=== PATIENT | female | born 1965 | race African-American/Black ===

== ENCOUNTER 2016-04-20 14:36 | Emergency (ER) | payer OTHER ==
[2016-04-20 14:57] VITALS: BP 144/87; PULSE 80; TEMP 98; BMI 41.7
--- NOTE | 2016-04-20 16:36 | PDOC ---
[id number] WEAKNESS (REFERRED FROM DIALYSIS) Time Seen by Provider: 04/20/16 16:26 History Source: Patient, Parent(s) Exam Limitations: No Limitations - History of Present Illness Initial Comments: 04/20/16 16:31 Incurring injury to her lumbar states stumbled yesterday and fell to the right landing on her right chest wall, and back. Banged her right knee also and was told by her dialysis physician to come to emergency department for evaluation. Patient is wheelchair-bound secondary to her multiple medical problems and kidney failure. States does not feel there was anything fracture that may have contused multiple areas with the fall. There was no head injury. 04/20/16 17:44 04/20/16 17:51 Occurred: reports: just prior to arrival, yesterday Severity: reports: moderate Pain Location: reports: back, lower extremity (rigth knee ) Method of Injury: Yes: direct blow, fall Loss of Consciousness: no loss of consciousness Associated Symptoms (Fall): denies symptoms Past History - Travel Traveled outside of the country in the last 30 days: Yes Close contact w/someone who was outside of country & ill: Yes - Past Medical History Allergies/Adverse Reactions: Allergies Allergy/AdvReac Type Severity Reaction Status Date / Time amoxicillin [Amoxicillin] Allergy Severe Itching Verified 04/20/16 14:57 hydrocodone bitartrate Allergy Severe Hives,ITCHI Verified 04/20/16 14:57 [From Vicodin] NG morphine Allergy Severe Itching Verified 04/20/16 14:57 neomycin [Neomycin] Allergy Severe Swelling Verified 04/20/16 14:57 oxycodone HCl [From Percocet] Allergy Severe Itching,HIV Verified 04/20/16 14:57 ES rofecoxib [From Vioxx] Allergy Severe Hives Verified 04/20/16 14:57 Sulfa (Sulfonamide Allergy Severe sclera Verified 04/20/16 14:57 Antibiotics) reddened,ITCHING tramadol Allergy Severe Vomiting Verified 04/20/16 14:57 grapefruit [Grapefruit] AdvReac Severe CAN'T TAKE Verified 04/20/16 14:57 BECAUSE OF MEDICATIONS vancomycin AdvReac Mild red man Verified 04/20/16 14:57 syndrome Heparin Analogues AdvReac Unknown Verified 02/16/16 08:04 [Heparin Agents] flu shot Allergy Severe GETS FLU Uncoded 11/22/16 08:04 SYMPTOMS grape juice AdvReac Severe Uncoded 02/16/16 08:04 Home Medications: Ambulatory Orders Albuterol Sulfate Inhaler - [Ventolin HFA Inhaler -] 1 - 2 inh PO Q4H PRN Brimonidine Tartrate/Timolol [Combigan Eye Drops] 1 drop OU BID 01/07/13 Carvedilol [Coreg] 25 mg PO BID 01/07/13 Famotidine [Pepcid -] 20 mg PO DAILY 01/07/13 Polyethylene Glycol 3350 [Miralax 255 gm Btl -] 17 gm PO DAILY 01/07/13 Sevelamer Carbonate [Renvela -] 800 mg PO TID 01/07/13 Hydralazine HCl 50 mg PO ASDIR 05/31/13 Insulin Pump Syringe, 1.8 ml [Fifty50 [place]] 1 each MC ASDIR 07/26/13 Cetirizine HCl [Zyrtec -] 1 tab PO DAILY 06/11/14 Furosemide [Lasix -] 40 tab PO ASDIR 06/11/14 Nephplex 1 tab PO DAILY 06/12/14 Sennosides [Senna Lax] 17.2 mg PO DAILY 06/12/14 Atorvastatin Ca [Lipitor] 80 mg PO HS #30 tablet 09/18/14 Aspirin [ASA -] 325 mg PO DAILY 10/13/14 Benzonatate [Tessalon Perle -] 100 mg PO PRN PRN 10/13/14 Bisacodyl [Dulcolax] 10 mg PO PRN 10/13/14 Clonazepam [KlonoPIN] 0.5 mg PO BID 10/13/14 Ondansetron HCl [Zofran] 4 mg PO PRN PRN 04/08/15 Diphenhydramine [Benadryl -] 50 mg PO PRN PRN 06/29/15 Acetaminophen [Tylenol] 1,000 mg PO PRN PRN 08/19/15 Metoclopramide HCl [Reglan] 10 mg PO PRN PRN 08/19/15 Mometasone/Formoterol [Dulera 100 Mcg/5 Mcg Inhaler] 13 gm IH PRN PRN 08/19/15 Linaclotide [Linzess] 145 mcg PO DAILY 10/06/15 Collagenase Clostridium Hist. [Santyl] 1 applic TP DAILY #90 oint...g. 02/05/16 Vanco 1 Gram/250 ml-0.9% NaCl 1 gm IVPB UTDICT 02/12/16 Acetaminophen W/ Codeine #3 [Tylenol # 3 -] 1 combo PO Q4H PRN #14 tablet MDD 6 04/20/16 Anemia: No Asthma: No Cancer: No Cardiac Disorders: No CVA: No COPD: No CHF: No Dementia: No Diabetes: Yes Dialysis: Yes (M-W-F) GI Disorders: No Disorders: No HTN: Yes Hypercholesterolemia: Yes Liver Disease: No Psychiatric Problems: Yes (ANXIETY.) Suicide Attempt (Hx): No Seizures: No Thyroid Disease: No - Surgical History Abdominal Surgery: No Appendectomy: No Cardiac Surgery: No Cholecystectomy: No Lung Surgery: No Neurologic Surgery: No Orthopedic Surgery: No - Immunization History Td Vaccination: No TDAP Vaccination: No - Psycho/Social/Smoking Cessation Hx Anxiety: No Suicidal Ideation: No Smoking Status: No Smoking History: Never smoked Have you smoked in the past 12 months: No Number of Cigarettes Smoked Daily: 0 Hx Alcohol Use: No Drug/Substance Use Hx: No Substance Use Type: None Hx Substance Use Treatment: No Trauma Specific PMHX - Complaint Specific PMHX Arthritis: No Back Injury: No Review of Systems - Review of Systems Able to Perform ROS?: Yes Is the patient limited [place] proficient: Yes Constitutional: Yes: Symptoms Reported, See HPI, Malaise HEENTM: Yes: See HPI. No: Symptoms Reported Musculoskeletal: Yes: Symptoms Reported Integumentary: Yes: Symptoms Reported, See HPI Neurological: Yes: Symptoms reported, See HPI All Other Systems: Reviewed and Negative *Physical Exam - Vital Signs Last Vital Signs Temp Pulse Resp BP Pulse Ox 98.0 F 80 20 144/87 100 04/20/16 14:54 04/20/16 14:54 04/20/16 14:54 04/20/16 14:54 04/20/16 14:54 - Physical Exam General Appearance: Yes: Nourished, Appropriately Dressed, Apparent Distress, Mild Distress HEENT: positive: MISA, TMs Normal, Pharynx Normal Neck: positive: Supple. negative: Tender Respiratory/Chest: positive: Lungs Clear Cardiovascular: positive: Regular Rate Gastrointestinal/Abdominal: positive: Soft Musculoskeletal: positive: Normal Inspection, Other. negative: Decreased Range of Motion, Muscle Spasm, Vertebral Tenderness Extremity: positive: Normal Capillary Refill, Normal Range of Motion (, noted no discoloration noted no numbness or tingling to hands or feet. Knee is intact with no reproduced tenderness along the medial or lateral aspects, patella is mobile without crepitus or step-offs, range of motion is intact but has some mild tenderness at superior aspect of patella consistent with a contusion. But no) Integumentary: positive: Normal Color, Dry, Warm. negative: Ecchymosis, Bruising Neurologic: positive: toolroom checker II-XII NML intact, Fully Oriented, Alert, Normal Mood/ Affect, Normal Response, Motor Strength 5/5 Progress Note - Progress Note Progress Note: Multiple contusions, no evidence of any bony injury, only soft tissue contusions. Agrees no x-rays probably indicated as there is no evidence of any fractures or bony injury. Will treat with Tylenol with codeine as patient has multiple ALLERGIES but stated that would be acceptable for mild to moderate pain relief *DC/Admit/Observation/Transfer Diagnosis at time of Disposition: Low back strain Qualifiers: Encounter type: initial encounter Qualified Code(s): S39.012A - Strain of muscle, fascia and tendon of lower back, initial encounter Contusion of knee Qualifiers: Encounter type: initial encounter Laterality: right Qualified Code(s): S80.01XA - Contusion of right knee, initial encounter Fall Qualifiers: Encounter type: initial encounter Qualified Code(s): W19.XXXA - Unspecified fall, initial encounter - Discharge Dispostion Disposition: HOME Condition at time of disposition: Stable Admit: No - Prescriptions Prescriptions: Acetaminophen W/ Codeine #3 [Tylenol # 3 -] 1 combo PO Q4H PRN #14 tablet MDD 6 PRN Reason: Pain - Referrals Referrals: Sebastián Parr MD [Primary Care Provider] - - Patient Instructions Printed Discharge Instructions: DI for Contusion Additional Instructions: Rest, ice to area on and off for 15 minutes 4-6 times a day Avoid heavy lifting or exercise until pain and swelling is resolved or until further directed Keep area highly elevated to reduce swelling Followup with orthopedist in one to 2 days if not improving, if significantly improved may wait one week for followup with orthopedist May use Tylenol 325 mg tablets , 2 tablets as needed for mild pain In all #3, 1-2 tablets every 6 hours as needed for more severe pain
== END 2016-04-20 16:50 | disposition home or self-care (01) ==
LOC: JERFT 14:36
DX: S80.01XA Contusion of right knee, initial encounter (principal); S39.012A Strain of muscle, fascia and tendon of lower back, initial encounter; W18.30XA Fall on same level, unspecified, initial encounter; Y93.89 Activity, other specified; Y92.9 Unspecified place or not applicable; Z99.89 Dependence on other enabling machines and devices; E11.9 Type 2 diabetes mellitus without complications; Z99.2 Dependence on renal dialysis; F41.9 Anxiety disorder, unspecified; I10 Essential (primary) hypertension; N28.9 Disorder of kidney and ureter, unspecified; Z79.4 Long term (current) use of insulin
CPT/HCPCS: 99281-25

== ENCOUNTER 2016-04-28 07:18 | Day surgery (SDC) | payer OTHER ==
[2016-04-27 12:10] VITALS: BMI 42.3
[2016-04-28] MEDS ORDERED: LIDOCAINE HCL 1%, 10 MG/ML (20ML VIAL) ONE (08:33)
[2016-04-28] MEDS ORDERED: HEPARIN NA (PORCINE) 5,000 UNITS/ML 1ML VIAL ONE (08:33)
[2016-04-28] MEDS ORDERED: MIDAZOLAM HCL 2 MG/2 ML SINGLE DOSE VIAL ONE ×3 (09:27→09:49)
[2016-04-28] MEDS ORDERED: LIDOCAINE HCL 1%, 10 MG/ML (20ML VIAL) IJ ONE (09:42)
[2016-04-28] MEDS ORDERED: ceFAZolin SODIUM 1 GM VIAL IVPB ONE (09:43)
[2016-04-28] MEDS ORDERED: ceFAZolin SODIUM 1 GM VIAL ONE (09:43)
--- NOTE | 2016-04-28 10:16 | OP ---
Operative Note - Note: Operative Date: 04/28/16 Pre-Operative Diagnosis: Stenosis right avg Operation: venogram, venoplasty right avg Findings: 80% stenosis right axillary vein. 70% stenosis in stent Post-Operative Diagnosis: Same as Pre-op Surgeon: Nathan Ch Anesthesia: Fractional Estimated Blood Loss (mls): 5 Operative Report Dictated: Yes
--- NOTE | 2016-04-28 10:18 | HP ---
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 No: Seizure Cardiovascular: Yes: HTN, Hyperlipdemia, Other (Peripheral vascular disease) Pulmonary: Yes: Asthma, Sleep Apnea Gastrointestinal: Yes: Constipation Renal/: Yes: Renal Failure, Hemodialysis ...LMP: 10/28/15 Heme/Onc: Yes: Anemia Infectious Disease: Yes: Other Rheumatology: Yes: Other (See HPI) Endocrine: Yes: Diabetes Mellitus - Past Surgical History Past Surgical History: Yes: Amputation, AV Fistula/Graft, - Smoking History Smoking history: Never smoked Have you smoked in the past 12 months: No Aproximately how many cigarettes per day: 0 - Alcohol/Substance Use Hx Alcohol Use: No - Social History ADL: Independent History of Recent Travel: No Home Medications - Allergies Allergies/Adverse Reactions: Allergies Allergy/AdvReac Type Severity Reaction Status Date / Time amoxicillin [Amoxicillin] Allergy Severe Itching Verified 04/20/16 14:57 hydrocodone bitartrate Allergy Severe Hives,ITCHI Verified 04/20/16 14:57 [From Vicodin] NG morphine Allergy Severe Itching Verified 04/20/16 14:57 neomycin [Neomycin] Allergy Severe Swelling Verified 04/20/16 14:57 oxycodone HCl [From Percocet] Allergy Severe Itching,HIV Verified 04/20/16 14:57 ES rofecoxib [From Vioxx] Allergy Severe Hives Verified 04/20/16 14:57 Sulfa (Sulfonamide Allergy Severe sclera Verified 04/20/16 14:57 Antibiotics) reddened,ITCHING tramadol Allergy Severe Vomiting Verified 04/20/16 14:57 grapefruit [Grapefruit] AdvReac Severe CAN'T TAKE Verified 04/20/16 14:57 BECAUSE OF MEDICATIONS vancomycin AdvReac Mild red man Verified 04/20/16 14:57 syndrome Heparin Analogues AdvReac Unknown Verified 02/16/16 08:04 [Heparin Agents] flu shot Allergy Severe GETS FLU Uncoded 02/16/16 08:04 SYMPTOMS grape juice AdvReac Severe Uncoded 02/16/16 08:04 - Home Medications Home Medications: Ambulatory Orders Albuterol Sulfate Inhaler - [Ventolin HFA Inhaler -] 1 - 2 inh PO Q4H PRN Brimonidine Tartrate/Timolol [Combigan Eye Drops] 1 drop OU BID 01/07/13 Carvedilol [Coreg] 25 mg PO BID 01/07/13 Famotidine [Pepcid -] 20 mg PO DAILY 01/07/13 Polyethylene Glycol 3350 [Miralax 255 gm Btl -] 17 gm PO DAILY 01/07/13 Sevelamer Carbonate [Renvela -] 800 mg PO TID 01/07/13 Hydralazine HCl 50 mg PO ASDIR 05/31/13 Insulin Pump Syringe, 1.8 ml [Fifty50 [place]] 1 each MC ASDIR 07/26/13 Cetirizine HCl [Zyrtec -] 1 tab PO DAILY 06/11/14 Furosemide [Lasix -] 40 tab PO ASDIR 06/11/14 Nephplex 1 tab PO DAILY 06/12/14 Sennosides [Senna Lax] 17.2 mg PO DAILY 06/12/14 Atorvastatin Ca [Lipitor] 80 mg PO HS #30 tablet 09/18/14 Aspirin [ASA -] 325 mg PO DAILY 10/13/14 Benzonatate [Tessalon Perle -] 100 mg PO PRN PRN 10/13/14 Bisacodyl [Dulcolax] 10 mg PO PRN 10/13/14 Clonazepam [KlonoPIN] 0.5 mg PO BID 10/13/14 Ondansetron HCl [Zofran] 4 mg PO PRN PRN 04/08/15 Diphenhydramine [Benadryl -] 50 mg PO PRN PRN 06/29/15 Acetaminophen [Tylenol] 1,000 mg PO PRN PRN 08/19/15 Metoclopramide HCl [Reglan] 10 mg PO PRN PRN 08/19/15 Mometasone/Formoterol [Dulera 100 Mcg/5 Mcg Inhaler] 13 gm IH PRN PRN 08/19/15 Linaclotide [Linzess] 145 mcg PO DAILY 10/06/15 Collagenase Clostridium Hist. [Santyl] 1 applic TP DAILY #90 oint...g. 02/05/16 Acetaminophen W/ Codeine #3 [Tylenol # 3 -] 1 combo PO Q4H PRN #14 tablet MDD 6 04/20/16 Doxycycline Hyclate 100 mg PO BID 04/28/16 Physical Examination Vital Signs: Vital Signs Temperature 97.6 F 04/28/16 08:34 Pulse Rate 74 04/28/16 08:34 Respiratory Rate 16 04/28/16 08:34 Blood Pressure 136/76 04/28/16 08:34 O2 Sat by Pulse Oximetry (%) 96 04/28/16 08:38 Constitutional: Yes: Well Nourished Eyes: Yes: WNL HENT: Yes: WNL Neck: Yes: WNL Cardiovascular: Yes: WNL Respiratory: Yes: WNL Gastrointestinal: Yes: WNL Labs: CBC, BMP 04/28/16 07:28 Assessment/Plan stenosis right avg 1. for venogram today
--- NOTE | 2016-04-28 11:14 | OP ---
DATE OF OPERATION: 04/28/2016 PREOPERATIVE DIAGNOSIS: Stenosis right atrioventricular graft. POSTOPERATIVE DIAGNOSIS: Stenosis right atrioventricular graft. PROCEDURE: Venogram, venoplasty right atrioventricular graft. SURGEON: Nathan De Los Santos DO ANESTHESIA: Fractional. ESTIMATED BLOOD LOSS: 5 mL. HISTORY: The patient is a 50-year-old female who comes to us with elevated venous pressures and arterial pressures on the dialysis machine. She had a preoperative ultrasound performed showing that she has stenosis in the outflow AV graft. The patient came into ambulatory surgery. The patient was consented for the procedure understanding all risks, benefits, and alternatives and then taken to the operating room. DESCRIPTION OF PROCEDURE: Once in the operating suite, was laid on the operating room table in supine manner. The right arm was prepped and draped in a sterile surgical manner. We then went ahead and injected 10 mL of Xylocaine 0.5% over the proximal right AV graft. We then used our micropuncture needle and punctured the right AV graft. Micropuncture wire was inserted. Micropuncture sheath was inserted, and a 0.035 floppy guidewire was inserted. We then placed a short 7-Trinidadian sheath. At this point, we then shot our venogram by a hand injection showing that the outflow axillary vein had a 70%-80% stenosis and the outflow stent had about a 70% stenosis. We placed a 0.035 guidewire through the stenosis. We then used a 9 x 8 Conquest balloon and performed venoplasty of the axillary vein and the stent. Completion venogram showed that the stenosis was now patent and had resolved. There was good flow. There was a good thrill in the AV graft. At this point, we took out our wire. I used a 4-0 Biosyn stitch and placed a [id number] stitch around the sheath. The sheath was then taken out, and the 4-0 Biosyn was tightened down. There was a good thrill in the AV graft. There was no bleeding. The area was wet and dried, and Dermabond was placed. The patient tolerated the procedure well. No complications. The patient was transferred to the PACU in stable condition. NATHAN DE LOS SANTOS DO NP/[id number]
[2016-04-28 12:09] VITALS: BP 130/74; PULSE 82; TEMP 98
== END 2016-04-28 11:20 | disposition home or self-care (01) ==
LOC: JASU-SURG 07:18
PROVIDERS: ATTEND Surgery Vascular Surgery
PROC: 057Y3ZZ Dilation of Upper Vein, Percutaneous Approach (ICD-10-PCS; principal; 2016-04-28 09:00)
DX: T82.858A Stenosis of other vascular prosthetic devices, implants and grafts, initial encounter (principal); I12.0 Hypertensive chronic kidney disease with stage 5 chronic kidney disease or end stage renal disease; N18.5 Chronic kidney disease, stage 5; Z99.2 Dependence on renal dialysis
CPT/HCPCS: 36415; 76000-TC; 84132; 84703; J1644

== ENCOUNTER 2016-08-03 15:19 | Inpatient (IN) | payer OTHER ==
--- NOTE | 2016-08-03 15:53 | PDOC ---
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 M/W/F; received full treatment today without complications) and anxiety who presents to the emergency department for further evaluation of left hand numbness. No trauma. Vitals on arrival are notable for a blood pressure of 144/83, heart rate of 82 bpm, respiratory rate of 20 and oxygen saturation of 99% on room air. She states that approximately 5 days ago, she felt that her last three digits of her left hand were numb. Approximately 2 days ago, she felt that the first two digits of her left hand were numb. She was also noted to have slight facial droop and slurred speech, by her health aide, 2 days ago, but did not report to the ED, as they contributed her symptoms to hypotension. Today, she felt her entire left hand was numb. She states that her symptoms today, are similar to when she had a mini stroke in the past (08/25/2014), to when she was cooking in the kitchen and spilled tomato sauce over her left hand and did not feel it. She reports a similar episode today, as she was holding a juice container and it spilled a bit. Patient is right-handed dominant. 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 She also reports a pounding left temporal headache. No other complaints. No chest pain, lightheadedness, dizziness, palpitations. No abdominal pain, nausea, vomiting, diarrhea. No urinary complaints No cough, shortness of breath. Allergies: Amoxicillin. Hydrocodone. Morphine. Neomycin. Past Surgical History: Right arm AV graft placement. Left eye retinal detachment with total blindness of the left eye, Social History: Never smoked. No EtOH and recreational drug use. Primary Care Physician/ Pattern Chain Builder: Dr. Sebastián Parr [phone] <Cassia Walsh - Last Filed: 08/03/16 17:00> - General History Source: Patient, Old Records Exam Limitations: No Limitations <Jahaira Saravia - Last Filed: 08/03/16 17:07> - General Chief Complaint: CVA/TIA Stated Complaint: LT HAND NUMBNESS, SLURRED SPEECH Time Seen by Provider: 08/03/16 15:37 Past History <Cassia Walsh - Last Filed: 08/03/16 17:00> - Past Medical History Anemia: No Asthma: Yes Cancer: No Cardiac Disorders: No CVA: Yes COPD: No CHF: No Dementia: No Diabetes: Yes Dialysis: Yes (M, W, F) GI Disorders: No Disorders: No HTN: Yes Hypercholesterolemia: Yes Liver Disease: No Psychiatric Problems: Yes (ANXIETY.) Suicide Attempt (Hx): No Seizures: No Thyroid Disease: No Other medical history: cranial Atherosclerosis - Surgical History Abdominal Surgery: No Appendectomy: No Cardiac Surgery: (AV graft) Cholecystectomy: No Lung Surgery: No Neurologic Surgery: No Orthopedic Surgery: No - Immunization History Td Vaccination: No TDAP Vaccination: No Immunization Up to Date: Yes - Psycho/Social/Smoking Cessation Hx Anxiety: No Suicidal Ideation: No Smoking Status: No Smoking History: Never smoked Have you smoked in the past 12 months: No Number of Cigarettes Smoked Daily: 0 Hx Alcohol Use: No Drug/Substance Use Hx: No Substance Use Type: None Hx Substance Use Treatment: No <Sarmad Saraviafany - Last Filed: 08/03/16 17:07> - Past Medical History Allergies/Adverse Reactions: Allergies Allergy/AdvReac Type Severity Reaction Status Date / Time amoxicillin [Amoxicillin] Allergy Severe Itching Verified 08/03/16 15:23 hydrocodone bitartrate Allergy Severe Hives,ITCHI Verified 08/03/16 15:23 [From Vicodin] NG morphine Allergy Severe Itching Verified 08/03/16 15:23 neomycin [Neomycin] Allergy Severe Swelling Verified 08/03/16 15:23 oxycodone HCl [From Percocet] Allergy Severe Itching,HIV Verified 08/03/16 15:23 ES rofecoxib [From Vioxx] Allergy Severe Hives Verified 08/03/16 15:23 Sulfa (Sulfonamide Allergy Severe sclera Verified 08/03/16 15:23 Antibiotics) reddened,ITCHING tramadol Allergy Severe Vomiting Verified 05/10/17 15:23 grapefruit [Grapefruit] AdvReac Severe CAN'T TAKE Verified 08/03/16 15:23 BECAUSE OF MEDICATIONS vancomycin AdvReac Mild red man Verified 08/03/16 15:23 syndrome Heparin Analogues AdvReac Unknown Verified 08/03/16 15:23 [Heparin Agents] flu shot Allergy Severe GETS FLU Uncoded 08/03/16 15:23 SYMPTOMS grape juice AdvReac Severe Uncoded 08/03/16 15:23 Home Medications: Ambulatory Orders Albuterol Sulfate Inhaler - [Ventolin HFA Inhaler -] 1 - 2 inh PO Q4H PRN Brimonidine Tartrate/Timolol [Combigan Eye Drops] 1 drop OU BID 01/07/13 Carvedilol [Coreg] 12.5 mg PO BID 01/07/13 Famotidine [Pepcid -] 20 mg PO DAILY 01/07/13 Polyethylene Glycol 3350 [Miralax 255 gm Btl -] 17 gm PO DAILY 01/07/13 Sevelamer Carbonate [Renvela -] 800 mg PO TID 01/07/13 Hydralazine HCl 50 mg PO ASDIR 05/31/13 Insulin Pump Syringe, 1.8 ml [Fifty50 [place]] 1 each MC ASDIR 07/26/13 Cetirizine HCl [Zyrtec -] 1 tab PO DAILY 06/11/14 Furosemide [Lasix -] 40 tab PO ASDIR 06/11/14 Nephplex 1 tab PO DAILY 06/12/14 Sennosides [Senna Lax] 17.2 mg PO DAILY 06/12/14 Atorvastatin Ca [Lipitor] 80 mg PO HS #30 tablet 09/18/14 Aspirin [ASA -] 325 mg PO DAILY 10/13/14 Benzonatate [Tessalon Perle -] 100 mg PO PRN PRN 10/13/14 Bisacodyl [Dulcolax] 10 mg PO PRN 10/13/14 Clonazepam [KlonoPIN] 0.5 mg PO BID 10/13/14 Ondansetron HCl [Zofran] 4 mg PO PRN PRN 04/08/15 Diphenhydramine [Benadryl -] 50 mg PO PRN PRN 06/29/15 Acetaminophen [Tylenol] 1,000 mg PO PRN PRN 08/19/15 Metoclopramide HCl [Reglan] 10 mg PO PRN PRN 08/19/15 Mometasone/Formoterol [Dulera 100 Mcg/5 Mcg Inhaler] 13 gm IH PRN PRN 08/19/15 Linaclotide [Linzess] 145 mcg PO DAILY 10/06/15 Acetaminophen W/ Codeine #3 [Tylenol # 3 -] 1 combo PO Q4H PRN #14 tablet MDD 6 04/20/16 Medroxyprogesterone Acetate [Depo-Provera -] IM ASDIR 07/25/16 Review of Systems - Review of Systems Able to Perform ROS?: Yes Comments:: 08/03/16 15:58 CONSTITUTIONAL: Absent: fever, chills, diaphoresis, generalized weakness, malaise, loss of appetite HEENT: Absent: rhinorrhea, nasal congestion, throat pain, throat swelling, difficulty swallowing, mouth swelling, ear pain, eye pain, visual Changes CARDIOVASCULAR: Absent: chest pain, syncope, palpitations, irregular heart rate , lightheadedness, peripheral edema RESPIRATORY: Absent: cough, shortness of breath, dyspnea with exertion, orthopnea, wheezing, stridor, hemoptysis GASTROINTESTINAL:Absent: abdominal pain, abdominal distension, nausea, vomiting , diarrhea, constipation, melena, hematochezia GENITOURINARY: Absent: dysuria, frequency, urgency, hesitancy, hematuria, flank pain, genital pain MUSCULOSKELETAL: Absent: myalgia, arthralgia, joint swelling SKIN: Absent: rash, itching, pallor HEMATOLOGIC/IMMUNOLOGIC: Absent: easy bleeding, easy bruising, lymphadenopathy, frequent infections ENDOCRINE:Absent: unexplained weight gain, unexplained weight loss, heat intolerance, cold intolerance NEUROLOGIC: Present: Left hand parethesias. Headache. Absent: dizziness, unsteady gait, seizure, mental status changes, bladder or bowel incontinence PSYCHIATRIC: Absent: anxiety, depression, suicidal or homicidal ideation, hallucinations <Cassia Walsh - Last Filed: 08/03/16 17:00> *Physical Exam - Vital Signs Last Vital Signs Temp Pulse Resp BP Pulse Ox 98.1 F 82 20 144/83 99 08/03/16 15:24 08/03/16 15:24 08/03/16 15:24 08/03/16 15:24 08/03/16 15:24 - Physical Exam Comments: 08/03/16 15:58 GENERAL: Well developed, well nourished. Awake and alert. No acute distress. HEENT: Normocephalic, atraumatic. PERRLA, EOMI. No conjunctival pallor. Sclera are non-icteric. Moist mucous membranes. Oropharynx is clear. NECK: Supple. Full ROM. No JVD. CARDIOVASCULAR: Regular rate and rhythm. No murmurs, rubs, or gallops. PULMONARY: No evidence of respiratory distress. Lungs clear to auscultation bilaterally. No wheezing, rales or rhonchi. ABDOMINAL: Soft. Non-tender. Non-distended. No rebound or guarding. No organomegaly. Normoactive bowel sounds. MUSCULOSKELETAL: Normal range of motion at all joints. No bony deformities or tenderness. No CVA tenderness. EXTREMITIES: No cyanosis. No clubbing. No edema. No calf tenderness. SKIN: Warm and dry. Normal capillary refill. No rashes. No jaundice. NEUROLOGICAL: Alert, awake, appropriate. Cranial nerves 2-12 intact. Decreased sensations over the left hand with a 4+/5 physical biochemist strength compared to a 5/5 physical biochemist strength over the right hand. Normoreflexic in the upper and lower extremities. Normal speech. PSYCHIATRIC: Cooperative. Good eye contact. Appropriate mood and affect. <Cassia Walsh - Last Filed: 08/03/16 17:00> - Vital Signs Last Vital Signs Temp Pulse Resp BP Pulse Ox 98.1 F 82 20 144/83 99 08/03/16 15:24 08/03/16 15:24 08/03/16 15:24 08/03/16 15:24 08/03/16 15:24 <Jahaira Saravia - Last Filed: 08/03/16 17:07> ED Treatment Course - LABORATORY CBC & Chemistry Diagram: 08/03/16 16:24 08/03/16 16:24 <Cassia Walsh - Last Filed: 08/03/16 17:00> - LABORATORY CBC & Chemistry Diagram: 08/03/16 16:24 08/03/16 16:24 <Jahaira Saravia - Last Filed: 08/03/16 17:07> Medical Decision Making - Medical Decision Making 08/03/16 16:45 50 y/o female with h/o HTN, DM, TIA, ESRD on HD Presents the emergency Department with complaints of 5 day history of numbness in her left hand digits 3 through 5 with numbness of the first and second digits of started 2 days ago. Differential diagnosis includes but is not limited to: TIA, electrolyte abnormality, toxic/metabolic derangement, diabetic neuropathy, nerve impingement. No stroke notification as she is clearly outside of the tPA window. Plan: 1. CT head 2. Labs 3. EKG 4. Chest x-ray 5. Admit to observation for serial neuro exams an MRI 6. Neurology consult 7. Observe and reevaluate <Jahaira Saravia - Last Filed: 08/03/16 17:07> *DC/Admit/Observation/Transfer - Attestations Scribe Attestion: 08/03/16 15:59 Documentation prepared by Cassia Walsh, acting as medical records coordinator for Jahaira Saravia MD. <Cassia Walsh - Last Filed: 08/03/16 17:00> - Attestations Physician Attestion: 08/03/16 15:52 I, Dr. Jahaira Saravia, attest that the scribes documentation that appears above has been prepared under my direction and personally reviewed by me in its entirety. I confirmed that the note above accurately reflects all work, treatment, procedures, and medical decision-making performed by me. <Jahaira Saravia - Last Filed: 08/03/16 17:07> Diagnosis at time of Disposition: Paresthesias in left hand, ESRD (end stage renal disease), Hypertension, Diabetes - Referrals Referrals: Sebastián Parr MD [Primary Care Provider] -
[2016-08-03 16:35] LABS: BASOPHIL 0.4 % (0-2.0); EOSINOPHIL 3.9 % (0-4.5); MCH 33.8 pg (25.7-33.7); MEAN CELL VOLUME 102.4 fl (80-96); MEAN PLT VOLUME 9.6 fl (7.5-11.1); NEUTROPHILS 66.3 % (42.8-82.8); PLATELET COUNT 204 K/MM3 (134-434); RDW 13.9 % (11.6-15.6)
[2016-08-03 16:56] LABS: ALBUMIN 3.6 g/dl (3.4-5.0); ANION GAP 13 (8-16); BILIRUBIN,TOTAL 0.5 mg/dL (0.2-1.0); CALCIUM 8.8 mg/dL (8.5-10.1); CO2 24 mmol/L (21-32); COCKROFT - GAULT 22.95; CREATININE 5.5 mg/dL (0.55-1.02); GLUCOSE,RANDOM 121 mg/dL (74-106); SGPT/ALT 26 U/L (12-78); TOT PROT 7.3 g/dl (6.4-8.2)
[2016-08-03 16:59] LABS: ALK PHOS 97 U/L (45-117); TROPONIN I < 0.02 ng/ml (0.00-0.05)
[2016-08-03 17:00] LABS: SGOT/AST 19 U/L (15-37)
[2016-08-03] MEDS ORDERED: LORAZEPAM CARPU-JECT 2 MG/ML DISP.SYRIN IVPUSH ONE (19:16)
--- NOTE | 2016-08-03 19:22 | PDOC ---
*Physical Exam - Vital Signs Last Vital Signs Temp Pulse Resp BP Pulse Ox 98.1 F 82 20 144/83 99 08/03/16 15:24 08/03/16 15:24 08/03/16 15:24 08/03/16 15:24 08/03/16 15:24 ED Treatment Course - LABORATORY CBC & Chemistry Diagram: 08/03/16 16:24 08/03/16 16:24 - ADDITIONAL ORDERS Additional order review: Laboratory Results 08/03/16 16:24 Sodium 140 Potassium 3.8 Chloride 103 Carbon Dioxide 24 Anion Gap 13 BUN 23 H D Creatinine 5.5 H D Creat Clearance w eGFR 8.24 Random Glucose 121 H D Calcium 8.8 Total Bilirubin 0.5 D AST 19 D ALT 26 Alkaline Phosphatase 97 D Creatine Kinase 209 H D CK-MB (CK-2) 2.200 Troponin I < 0.02 Total Protein 7.3 Albumin 3.6 08/03/16 16:24 RBC 3.16 L MCV 102.4 H MCHC 33.0 RDW 13.9 MPV 9.6 Neutrophils % 66.3 Lymphocytes % 22.7 Monocytes % 6.7 Eosinophils % 3.9 Basophils % 0.4 - RADIOLOGY Radiology Studies Ordered: Category Date Time Status BRAIN MRI W/O CONTRAST [MRI] Stat MRI 08/03/16 19:15 Ordered Medical Decision Making - Medical Decision Making 08/03/16 19:30 Sign-out received from outgoing Emergency Physician Dr. Saravia Pt interviewed and examined Ancillary studies reviewed Case discussed in detail with oncoming Emergency Physician including history, physical exam and ancillary studies. CBC, BMP 08/03/16 16:24 08/03/16 16:24 CMP Sodium 140 mmol/L (136-145) 08/03/16 16:24 Potassium 3.8 mmol/L (3.5-5.1) 08/03/16 16:24 Chloride 103 mmol/L (98-107) 08/03/16 16:24 Carbon Dioxide 24 mmol/L (21-32) 08/03/16 16:24 Anion Gap 13 (8-16) 08/03/16 16:24 BUN 23 mg/dL (7-18) H D 08/03/16 16:24 Creatinine 5.5 mg/dL (0.55-1.02) H D 08/03/16 16:24 Creat Clearance w eGFR 8.24 (>60) 08/03/16 16:24 Random Glucose 121 mg/dL (74-106) H D 08/03/16 16:24 Calcium 8.8 mg/dL (8.5-10.1) 08/03/16 16:24 Total Bilirubin 0.5 mg/dL (0.2-1.0) D 08/03/16 16:24 AST 19 U/L (15-37) D 08/03/16 16:24 ALT 26 U/L (12-78) 08/03/16 16:24 Alkaline Phosphatase 97 U/L (45-117) D 08/03/16 16:24 Creatine Kinase 209 IU/L (26-192) H D 08/03/16 16:24 CK-MB (CK-2) 2.200 ng/ml (0.5-3.6) 08/03/16 16:24 Troponin I < 0.02 ng/ml (0.00-0.05) 08/03/16 16:24 Total Protein 7.3 g/dl (6.4-8.2) 08/03/16 16:24 Albumin 3.6 g/dl (3.4-5.0) 08/03/16 16:[address] reviewed. Moderate periventricular white matter changes likely on the basis of chornic microvascular ischemic changes c/ suggestion of focal encephalomalacia in the right parietal lobe. No gross acute intracranial pathology. Chest xray reviewed. No acute findings. Case discussed with [facility] hospitalist for r/o CVA. Tele obs Case discussed in detail with admitting physician including history, physical exam and ancillary studies. Admitting physician has assumed care for the patient, will follow all pending diagnostics and will complete the evaluation and treatment. *DC/Admit/Observation/Transfer Diagnosis at time of Disposition: Paresthesias in left hand, ESRD (end stage renal disease), Hypertension, Diabetes - Discharge Dispostion Condition at time of disposition: Stable Admit: Yes - Referrals Referrals: Sebastián Parr MD [Primary Care Provider] - - Patient Instructions - Post Discharge Activity
[2016-08-03] MEDS ORDERED: LORAZEPAM CARPU-JECT 2 MG/ML DISP.SYRIN ONE (21:00)
--- NOTE | 2016-08-03 21:13 | PN ---
<AlinaEda - Last Filed: 08/03/16 21:13> Teaching Attending Note Name of Resident: Rj Margotmarlon <Sarah Montoya - Last Filed: 08/04/16 04:30> Teaching Attending Note ATTENDING PHYSICIAN STATEMENT I saw and evaluated the patient. I reviewed the resident's note and discussed the case with the resident. I agree with the resident's findings and plan as documented. SUBJECTIVE: 50 yo F presents with home health aide for further evaluation of left hand numbness. Patient denies trauma to the hand. Patient states that 5 days ago, she felt numbness in her third, fourth and fifth digit and then 2 days ago she felt numbness in her first and second digit. Patient also notes that 2 days ago her home health aide noted slight facial droop and slurred speech, but attributed the symptoms to hypotension and therefore never reported to the ED. Patient states her aide is at home with her 7 hours a day M- and 4 hours a day on the weekends. 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 M/W/F) ; received full treatment today without complications) and anxiety OBJECTIVE: Last Vital Signs Temp Pulse Resp BP Pulse Ox 99.6 F 83 16 162/84 100 08/04/16 01:20 08/04/16 01:20 08/04/16 01:20 08/04/16 01:20 08/04/16 01:20 GENERAL: Awake, alert, and fully oriented, in no acute distress HEENT: Atraumatic. Diminished vision with bilateral proptosis. Injected conjunctiva. Moist mucosa. No JVD LUNGS: No distress, speaks full sentences, clear to auscultation bilaterally HEART: Regular rate and rhythm, normal S1 and S2, no murmurs, rubs or gallops, peripheral pulses normal and equal bilaterally. ABDOMEN: Obese. Soft, nontender, normoactive bowel sounds. No guarding, no rebound. No masses EXTREMITIES: Normal inspection, Normal range of motion, no edema. No clubbing or Cyanosis. Right arm AV fistula. No palpable thrill appreciated. left foot with 4th and 5 toes amputated. NEUROLOGICAL: +4 in strength in L arm, +5 strength in R arm .Cranial nerves III through XII grossly intact. Normal speech, no focal sensorimotor deficits SKIN: Warm, Dry, normal turgor, no rashes or lesions noted CBCD WBC 8.0 K/mm3 (4.0-10.0) 08/03/16 16:24 RBC 3.16 M/mm3 (3.60-5.2) L 08/03/16 16:24 Hgb 10.7 GM/dL (10.7-15.3) D 08/03/16 16:24 Hct 32.3 % (32.4-45.2) L D 08/03/16 16:24 MCV 102.4 fl (80-96) H 08/03/16 16:24 MCHC 33.0 g/dl (32.0-36.0) 08/03/16 16:24 RDW 13.9 % (11.6-15.6) 08/03/16 16:24 Plt Count 204 K/MM3 (134-434) D 08/03/16 16:24 MPV 9.6 fl (7.5-11.1) 08/03/16 16:24 CMP Sodium 140 mmol/L (136-145) 08/03/16 16:24 Potassium 3.8 mmol/L (3.5-5.1) 08/03/16 16:24 Chloride 103 mmol/L (98-107) 08/03/16 16:24 Carbon Dioxide 24 mmol/L (21-32) 08/03/16 16:24 Anion Gap 13 (8-16) 08/03/16 16:24 BUN 23 mg/dL (7-18) H D 08/03/16 16:24 Creatinine 5.5 mg/dL (0.55-1.02) H D 08/03/16 16:24 Creat Clearance w eGFR 8.24 (>60) 08/03/16 16:24 Calcium 8.8 mg/dL (8.5-10.1) 08/03/16 16:24 Total Bilirubin 0.5 mg/dL (0.2-1.0) D 08/03/16 16:24 AST 19 U/L (15-37) D 08/03/16 16:24 ALT 26 U/L (12-78) 08/03/16 16:24 Alkaline Phosphatase 97 U/L (45-117) D 08/03/16 16:24 Total Protein 7.3 g/dl (6.4-8.2) 08/03/16 16:24 Albumin 3.6 g/dl (3.4-5.0) 08/03/16 16:24 ASSESSMENT AND PLAN: 1.) CKD -ESRD on dialysis -Nephrology consult for dialysis -As per patient, she is unable to get dialysis at this facility as she needs a special gauge. 2.) Acute CVA -Stroke protocol -Lipid panel -Consult Dr. Nathan Ch -Atorvastatin -Rapid Speech and swallow pass but will need speech and swallow therapy -Physical therapy -Consider palliative care consult 3.) Permissive HTN -Hold anti HTN medications -Continue lipitor and aspirin 4.) Macrocytic anemia -Check thiamine and folate level -Start on thiamine and folate 5.) IDDM -Insulin sliding scale -Fingersticks ACHS -Repeat HGB A1C Documentation prepared by Sarah Montoya acting as medical typist for Eda Fuller M.D.
--- NOTE | 2016-08-03 22:20 | MSN ---
Admitting History and Physical - Primary Care Physician PCP: Sebastián Parr (PCP and [employer]) - Admission Chief Complaint: Left hand numbness and weakness History of Present Illness: Ms. Frankel is a 50 y/o female with PHMx of DM, HTN, CVA (08/2014), ESRD ( dialysis M/W/F), and anxiety who presented to the ED for persistent left hand numbness and weakness. Pt reports that these symptoms were similar to the stroke she had in 2014. Pt first noticed these symptoms on Monday during dialysis and attributed it to being hypotensive. The numbness and weakness were initially localized to the tips of digits 3-5 of left hand, but now incorporate all 5 digits. Pt has not found anything that relieves or exacerbates her symptoms. Her only other complaint at this time is left sided temporal headache that has been present for the past few days. Denies f/c/slurred speech/trouble swallowing/cough/sob/abd pain/dysuria/hematuria/hematochezia. 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 No: Seizure Cardiovascular: Yes: HTN, Hyperlipdemia, Other (Peripheral vascular disease) Pulmonary: Yes: Asthma, Sleep Apnea Gastrointestinal: Yes: Constipation Renal/: Yes: Renal Failure, Hemodialysis ...LMP: 07/08/16 Heme/Onc: Yes: Anemia Rheumatology: Yes: Other (See HPI) Endocrine: Yes: Diabetes Mellitus - Past Surgical History Past Surgical History: Yes: Amputation, AV Fistula/Graft, - Smoking History Smoking history: Never smoked Have you smoked in the past 12 months: No Aproximately how many cigarettes per day: 0 - Alcohol/Substance Use Hx Alcohol Use: No - Social History ADL: Independent History of Recent Travel: No Home Medications - Allergies Allergies/Adverse Reactions: Allergies Allergy/AdvReac Type Severity Reaction Status Date / Time amoxicillin [Amoxicillin] Allergy Severe Itching Verified 08/03/16 15:23 hydrocodone bitartrate Allergy Severe Hives,ITCHI Verified 08/03/16 15:23 [From Vicodin] NG morphine Allergy Severe Itching Verified 08/03/16 15:23 neomycin [Neomycin] Allergy Severe Swelling Verified 08/03/16 15:23 oxycodone HCl [From Percocet] Allergy Severe Itching,HIV Verified 08/03/16 15:23 ES rofecoxib [From Vioxx] Allergy Severe Hives Verified 08/03/16 15:23 Sulfa (Sulfonamide Allergy Severe sclera Verified 08/03/16 15:23 Antibiotics) reddened,ITCHING tramadol Allergy Severe Vomiting Verified 08/03/16 15:23 grapefruit [Grapefruit] AdvReac Severe CAN'T TAKE Verified 08/03/16 15:23 BECAUSE OF MEDICATIONS vancomycin AdvReac Mild red man Verified 08/03/16 15:23 syndrome Heparin Analogues AdvReac Unknown Verified 08/03/16 15:23 [Heparin Agents] flu shot Allergy Severe GETS FLU Uncoded 08/03/16 15:23 SYMPTOMS grape juice AdvReac Severe Uncoded 08/03/16 15:23 - Home Medications Home Medications: Ambulatory Orders Acetaminophen [Tylenol -] 500 mg PO BID 08/03/16 Albuterol Sulfate Inhaler - [Ventolin Hfa Inhaler -] 2 inh PO BID PRN 08/03/16 Aspirin [Ecotrin] 325 mg PO DAILY 08/03/16 Atorvastatin Ca [Lipitor] 80 mg PO HS 08/03/16 Benzonatate 100 mg PO DAILY 08/03/16 Bisacodyl [Laxative] 10 mg PO BID PRN 08/03/16 Brimonidine Tartrate/Timolol [Combigan Eye Drops] 2 drop OU DAILY 08/03/16 Carvedilol [Coreg -] 12.5 mg PO BID 08/03/16 Clonazepam [Klonopin -] 0.5 mg PO BID 08/03/16 Diphenhydramine [Benadryl -] 50 mg PO DAILY 08/03/16 Famotidine [Pepcid -] 20 mg PO DAILY 08/03/16 Furosemide [Lasix] 40 mg PO BID 08/03/16 Insulin Aspart [Novolog] 100 unit SQ ACHS 08/03/16 Lidocaine/Prilocaine Cream [Emla -] 1 applic TP DAILY 08/03/16 Metoclopramide HCl [Reglan] 10 mg PO TID PRN 08/03/16 Mometasone/Formoterol [Dulera 100 Mcg/5 Mcg Inhaler] 2 inh IH BID 08/03/16 Ondansetron [Zofran -] 4 mg PO DAILY PRN 08/03/16 Polyethylene Glycol 3350 [Miralax (For Daily Use) -] 17 gm PO DAILY 08/03/16 Propylene Glycol/Peg 400 [Systane Gel Eye Drops] 1 drop OP DAILY 08/03/16 Sennosides [Senna] 2 tab PO DAILY 08/03/16 Vit B Cmplx No3/FA/C/Biot/Zinc [Nephplex Rx Tablet] 1 each PO DAILY 08/03/16 Physical Examination Vital Signs: Vital Signs Temperature 98.1 F 08/03/16 15:24 Pulse Rate 82 08/03/16 19:56 Respiratory Rate 18 08/03/16 19:56 Blood Pressure 138/85 08/03/16 19:56 O2 Sat by Pulse Oximetry (%) 99 08/03/16 19:56 Constitutional: Yes: No Distress, Calm Eyes: Yes: Conjunctiva Clear, EOM Intact HENT: Yes: Atraumatic, Normocephalic Neck: Yes: Supple, Trachea Midline Cardiovascular: Yes: Regular Rate and Rhythm Respiratory: Yes: Regular, CTA Bilaterally Gastrointestinal: Yes: Normal Bowel Sounds, Soft Renal/: Yes: Other (Right AV graft) Extremities: Yes: Amputation Peripheral Pulses WNL: Yes Peripheral Pulses: Left Radial: 2+, Right Radial: 2+ Wound/Incision: Yes: Dressing Dry and Intact (Right foot) Neurological: Yes: Alert, Oriented, Cran Nerves II-XII Intact, Loss of Sensation (Decreased sensation on left cheek Decreased sensation along the digits of left hand Normal sensation at wrist), Weakness (Left hand weakness 2/ 5 Brass Buffer). No: Aphasia ...Motor Strength: LUE (2/5 Brass Buffer Strength 5/5 strength C5, C7), LLE (5/5), RUE (5/5), RLE (5/5) Psychiatric: Yes: Alert, Oriented Imaging - Results Chest X-ray: Report Reviewed (No evidence of acute lung pathology) Assessment/Plan Ms. Frankel is a 50 y/o female with PMHx ESRD (dialysis M/W/F), CVA (2014), DM, HTN, Glaucoma, and GERD who presented to the ED for >5 day persistent left hand numbness and weakness which is similar in presentation to her previous stroke. Acute CVA causing left hand numbness and weakness -Head MRI: Moderately severe periventricular chronic microvascular ischemic changes again seen. Multiple tiny acute/subacute lacunar infarcts in the right frontal and parietal high convexity R>L. acute/subacute lacunar infarct at left parietal occipital junction -Head CT: Moderate periventricular white matter changes likely on the basis of chronic microvascular ischemic changes with suggestion of focal encephalomalacia in the right parietal lobe. No acute infarct, hemorrhage, or mass lesion seen. -Carotid Doppler: moderate-large plaque occluding the proximal right internal carotid artery without evidence of flow. Small plaques in the left common carotid bifurcation involving the bulb and proximal internal carotid artery without evidence of the significant. -Head and neck MRA, ECHO -Lipid panel, HbA1C -Continue Atorvastatin 80mg; Asprin 325 (consider switching to aggrenox; pt has bad reaction with plavix) -Neurology consult; pt normally sees Dr. Granados -Cardio consult HTN, -Coreg 12.5mg BID -Hydralazine 50mg BID -Confirm patient home meds DM -SSI inpatient Glaucoma -Combigan Eye drops 2 OU qd HLD -Continue Atorvastatin 80mg -lipid panel pending GERD -Continue Pepcid 20mg ESRD -Dialysis MWF through R AV graft -Consult Dr. Parr Wound, right foot -Pt continues to [facility] Chelsea [facility]; scheduled appointment later this week Anxiety -Klonopin 0.5mg DVT ppx -SCDs
--- NOTE | 2016-08-03 22:30 | HP ---
CHIEF COMPLAINT: Left hand numbness PCP: Dr Parr HISTORY OF PRESENT ILLNESS: 50 year old obese female with pmh of CVA, TIA, HTN, Hyperlipidemia, ESRD on dialysis MWF, DM with complaint of left hand numbness. The symptoms started on Monday with numbness in the tips of the 3rd, 4th and 5th digit, which progressed to numbness in all the digits. Symptoms started during dialysis, she attributed them to hypotension and did not pursue medical care. The patient also has weakness of left hand which has been worsening. She would hold a cup and the cup would slip from her hand without her realizing it. Pt patient said she had symptoms of numbness in her hand back in 2014 when she had a CVA. The patient denies any slurred speech, facial droop, no visual changes, no difficulty swallowing, no dizziness or vertigo. NO chest pain, palpitation, shortness of breath. 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 Social History: Smoking: denies Alcohol:denies Drugs: denies Family History: non- contributory Allergies amoxicillin [Amoxicillin] Allergy (Severe, Verified 08/03/16 15:23) Itching hydrocodone bitartrate [From Vicodin] Allergy (Severe, Verified 08/03/16 15:23) Hives,ITCHING morphine Allergy (Severe, Verified 08/03/16 15:23) Itching neomycin [Neomycin] Allergy (Severe, Verified 08/03/16 15:23) Swelling oxycodone HCl [From Percocet] Allergy (Severe, Verified 08/03/16 15:23) Itching,HIVES rofecoxib [From Vioxx] Allergy (Severe, Verified 08/03/16 15:23) Hives Sulfa (Sulfonamide Antibiotics) Allergy (Severe, Verified 08/03/16 15:23) sclera reddened,ITCHING tramadol Allergy (Severe, Verified 08/03/16 15:23) Vomiting grapefruit [Grapefruit] Adverse Reaction (Severe, Verified 08/03/16 15:23) CAN'T TAKE BECAUSE OF MEDICATIONS vancomycin Adverse Reaction (Mild, Verified 08/03/16 15:23) red man syndrome Heparin Analogues [Heparin Agents] Adverse Reaction (Unknown, Verified 08/03/16 15:23) OF 09/14/14, PT IS ABLE TO TAKE WITH MONITORING OF SYMPTOMS flu shot Allergy (Severe, Uncoded 08/03/16 15:23) GETS FLU SYMPTOMS grape juice Adverse Reaction (Severe, Uncoded 08/03/16 15:23) HOME MEDICATIONS: Home Medications Medication Instructions Recorded Acetaminophen [Tylenol -] 500 mg PO BID 08/03/16 Albuterol Sulfate Inhaler - 2 inh PO BID PRN 08/03/16 [Ventolin Hfa Inhaler -] Aspirin [Ecotrin] 325 mg PO DAILY 08/03/16 Atorvastatin Ca [Lipitor] 80 mg PO HS 08/03/16 Benzonatate 100 mg PO DAILY 08/03/16 Bisacodyl [Laxative] 10 mg PO BID PRN 08/03/16 Brimonidine Tartrate/Timolol 2 drop OU DAILY 08/03/16 [Combigan Eye Drops] Carvedilol [Coreg -] 12.5 mg PO BID 08/03/16 Clonazepam [Klonopin -] 0.5 mg PO BID 08/03/16 Diphenhydramine [Benadryl -] 50 mg PO DAILY 08/03/16 Famotidine [Pepcid -] 20 mg PO DAILY 08/03/16 Furosemide [Lasix] 40 mg PO BID 08/03/16 Insulin Aspart [Novolog] 100 unit SQ ACHS 08/03/16 Lidocaine/Prilocaine Cream [Emla -] 1 applic TP DAILY 08/03/16 Metoclopramide HCl [Reglan] 10 mg PO TID PRN 08/03/16 Mometasone/Formoterol [Dulera 100 2 inh IH BID 08/03/16 Mcg/5 Mcg Inhaler] Ondansetron [Zofran -] 4 mg PO DAILY PRN 08/03/16 Polyethylene Glycol 3350 [Miralax 17 gm PO DAILY 08/03/16 (For Daily Use) -] Propylene Glycol/Peg 400 [Systane 1 drop OP DAILY 08/03/16 Gel Eye Drops] Sennosides [Senna] 2 tab PO DAILY 08/03/16 Vit B Cmplx No3/FA/C/Biot/Zinc 1 each PO DAILY 08/03/16 [Nephplex Rx Tablet] REVIEW OF SYSTEMS CONSTITUTIONAL: Absent: fever, chills, diaphoresis, generalized weakness, malaise, loss of appetite, weight change HEENT: Absent: rhinorrhea, nasal congestion, throat pain, throat swelling, difficulty swallowing, mouth swelling, ear pain, eye pain, visual changes CARDIOVASCULAR: Absent: chest pain, syncope, palpitations, irregular heart rate, lightheadedness , peripheral edema RESPIRATORY: Absent: cough, shortness of breath, dyspnea with exertion, orthopnea, wheezing, stridor, hemoptysis GASTROINTESTINAL: Absent: abdominal pain, abdominal distension, nausea, vomiting, diarrhea, constipation, melena, hematochezia GENITOURINARY: Absent: dysuria, frequency, urgency, hesitancy, hematuria, flank pain, genital pain MUSCULOSKELETAL: Absent: myalgia, arthralgia, joint swelling, back pain, neck pain SKIN: Absent: rash, itching, pallor HEMATOLOGIC/IMMUNOLOGIC: Absent: easy bleeding, easy bruising, lymphadenopathy, frequent infections ENDOCRINE: Absent: unexplained weight gain, unexplained weight loss, heat intolerance, cold intolerance NEUROLOGIC: focal weakness or paresthesias Absent: headache, dizziness, unsteady gait, seizure, mental status changes, bladder or bowel incontinence PSYCHIATRIC: Absent: anxiety, depression, suicidal or homicidal ideation, hallucinations. PHYSICAL EXAMINATION Vital Signs - 24 hr 08/03/16 08/03/16 19:56 22:25 Pulse Rate [ 82 82 Apical] Respiratory 18 18 Rate Blood Pressure 138/85 138/84 [Left Arm] O2 Sat by Pulse 99 99 Oximetry (%) GENERAL: Awake, alert, and fully oriented, in no acute distress. HEAD: Normal with no signs of trauma. EYES: Pupils equal, round and reactive to light, extraocular movements intact, sclera anicteric, conjunctiva clear. No lid lag. EARS, NOSE, THROAT: Ears normal, nares patent, oropharynx clear without exudates. Moist mucous membranes. NECK: Normal range of motion, supple without lymphadenopathy, JVD, or masses. LUNGS: Breath sounds equal, clear to auscultation bilaterally. No wheezes, and no crackles. No accessory muscle use. HEART: Regular rate and rhythm, normal S1 and S2 without murmur, rub or gallop. ABDOMEN: Soft, obese, nontender, not distended, normoactive bowel sounds, no guarding, no rebound, no masses. No hepatomegaly or splenomegaly. MUSCULOSKELETAL: Normal range of motion at all joints. No bony deformities or tenderness. No CVA tenderness. UPPER EXTREMITIES: 2+ pulses, warm, well-perfused. No cyanosis. No clubbing. No peripheral edema. LOWER EXTREMITIES: 2+ pulses, warm, well-perfused. No calf tenderness. No peripheral edema. left foot with 4th and 5 toes amputation NEUROLOGICAL: Cranial nerves II-XII intact except for right facial numbness in V2 territory. Poor vision worse in left eye but no acute changes. Normal speech. pt on a wheelchair therfore gait is not observed, Normal sensation to light tough in all extremities except for left 5 digits. Left hand strength 4/5 while right hand strength 5/5, strength equal in b/l lower ext. left brachoradialis reflex 3+, while right brachioradialis reflex 2+, normal reflex in b/l lower ext. Diminished coordination in left upper ext compared to right . PSYCHIATRIC: Cooperative. Good eye contact. Appropriate mood and affect. SKIN: Warm, dry, normal turgor, no rashes or lesions noted, normal capillary refill. CBC, BMP 08/03/16 16:24 08/03/16 16:24 Laboratory Tests 08/03/16 16:24 Calcium 8.8 Total Bilirubin 0.5 D AST 19 D ALT 26 Alkaline Phosphatase 97 D Troponin I < 0.02 Albumin 3.6 MRI brain: Moderately severe periventricular chronic microvascular ischemic changes again seen. Interval multiple tiny acute/subacute lacunar infarcts in the right frontal and parietal high convexity, right more the left as well as an acute/subacute lacunar infarct at the left parietal occipital junction. CT head: Moderate periventricular white matter changes likely on the basis of chronic microvascular ischemic changes with suggestion of focal encephalomalacia in the right parietal lobe. No gross acute intracranial pathology is identified. Correlate clinically to determine further evaluation. US carotid: Interval occluded right internal carotid artery. Correlation with CTA or MRA of the neck is recommended. Small plaques in the left common carotid bifurcation involving the bulb and proximal internal carotid artery without evidence of the significant. 50 year old female with pmh of CVA, TIA, ESRD on dialysis, HTN, DM presented to the ED left hand weakness since Monday that has been worsening. Acute CVA Left hand numbness for [address] head showed moderate periventricular white matter changes likely chronic miscrovascular ischemic changes Pt is on Aspirin Pt is on atorvastatin 80mg Po qhs Will consider switching pt to Plavix or Aggrenox but patient refused these meds Lipid profile in am Hga1c in am Vital B12 Folate TSh Echo carotid US MRI brain Will consider MRA head/neck Speech consult Physical therapy consult neurology consulted ESRD on dialysis Dialysis on MWF renal consult Dr Parr CMP in am Diabetes Novolog sliding scale BGM HGA1c in am HTN resume antihypertensive Anemia Likely chronic disease/renal disease At baseline consider iron studies Asthma Prn Albuterol inh q4h FEN Fluid: none Electrolytes: chemistry Nutrition: rapid speech and swallow passed, pt already eating without complication, will follow up with official test in am Aspiration precaution Disposition: Admit to medsur Visit type - Emergency Visit Emergency Visit: Yes ED Registration Date: 08/03/16 Care time: The patient presented to the Emergency Department on the above date and was hospitalized for further evaluation of their emergent condition. - New Patient This patient is new to me today: Yes Date on this admission: 08/04/16 - Critical Care Critical Care patient: No
[2016-08-04] MEDS ORDERED: SENNOSIDES 8.6MG TABLET (FP) PO PRN (00:39)
[2016-08-04] MEDS ORDERED: diphenhydrAMINE HCL 50 MG CAPSULE PO PRN (00:39)
[2016-08-04] MEDS ORDERED: ONDANSETRON 4 MG TABLET PO PRN (00:39)
[2016-08-04] MEDS ORDERED: METOCLOPRAMIDE HCL 10 MG TABLET (FP) PO PRN (00:39)
[2016-08-04] MEDS ORDERED: ALBUTEROL SO4 6.7 GM HFA INHALER IH PRN (00:39)
[2016-08-04] MEDS ORDERED: BISACODYL 5 MG TABLET.DR (FP) PO PRN (00:39)
[2016-08-04] MEDS ORDERED: ASPIRIN 81 MG CHEWABLE TABLETS PO ONE (00:44)
[2016-08-04 02:09] LABS: URINE APPEARANCE CLOUDY; URINE BILIRUBIN NEGATIVE (NEGATIVE); URINE COLOR DKYELLOW; URINE GLUCOSE (UA) 3+ (NEGATIVE); URINE KETONE TRACE (NEGATIVE); URINE NITRITE NEGATIVE (NEGATIVE); URINE UROBILINOGEN NEGATIVE E.U./dl (0.2-1.0)
[2016-08-04 02:15] LABS: URINE BLOOD 1+ (NEGATIVE); URINE LEUK ESTERASE 3+ (NEGATIVE); URINE PROTEIN 2+ (NEGATIVE)
[2016-08-04 02:18] LABS: URINE BACTERIA MANY /hpf (NONE SEEN); URINE HYALINE CAST 7 /lpf; URINE MUCUS RARE; URINE RBC 15 /hpf (0-3); URINE WBC 306 /hpf (3-5)
[2016-08-04] MEDS ORDERED: ACETAMINOPHEN 325 MG TABLET (FP) PO PRN (02:36)
[2016-08-04 03:08] VITALS: BMI 42.2
[2016-08-04] MEDS ORDERED: ASPIRIN 81 MG CHEWABLE TABLETS ONE (04:22)
[2016-08-04] MEDS: ATORVASTATIN CA 80 MG TABLET (FP) PO SCH ×2 (04:23→21:39)
[2016-08-04] MEDS ORDERED: diphenhydrAMINE HCL 25 MG CAPSULE (FP) PO PRN (05:56)
[2016-08-04] MEDS ORDERED: INSULIN (NOVOLOG) ASPART 100 UNITS/ML 10ML VIAL ONE ×2 (06:15→11:45)
[2016-08-04] MEDS: INSULIN SLIDING SCALE (NOVOLOG) 1 VIAL SQ SCH ×4 (06:17→22:45)
[2016-08-04 07:14] LABS: THYROID STIMULATING HORMONE 0.29 uIU/ml (0.358-3.74)
[2016-08-04] MEDS ORDERED: PT OWN MED DRAWER 7, Y5N ONE ×2 (09:17→21:23)
[2016-08-04] MEDS: BUDESONIDE/FORMETEROL FUMARATE 160/4.5 mcg INHALER IH SCH ×2 (09:19→21:42)
[2016-08-04] MEDS: LIDOCAINE 2.5%/PRILOCAINE 2.5% (5 Gram/TUBE) TP SCH (09:19)
[2016-08-04] MEDS: CARVEDILOL 12.5 MG TABLET (FP) PO SCH ×2 (09:32→21:40)
[2016-08-04] MEDS: FUROSEMIDE 40 MG TABLET (FP) PO SCH ×2 (09:32→21:41)
[2016-08-04] MEDS: clonazePAM 0.5 MG TABLET PO SCH ×2 (09:32→21:39)
[2016-08-04] MEDS: POLYETHYLENE GLYCOL 3350 119 GM BTL PO SCH (09:33)
[2016-08-04] MEDS: RANITIDINE HCL 150 MG TABLET (FP) PO SCH (09:36)
[2016-08-04] MEDS ORDERED: ASPIRIN 325 MG ENTERIC COATED TABLET (FP) PO SCH (10:00)
[2016-08-04] MEDS ORDERED: CEFTRIAXONE 50 ML IVPB SCH (10:00)
[2016-08-04] MEDS ORDERED: BRIMONIDINE TARTRATE 0.2% OPHTHALMIC 5 ML BOTTLE OU SCH ×2 (10:00→22:00)
[2016-08-04] MEDS ORDERED: PATIENT'S OWN MEDICATION (NON-FORMULARY) (Brimonidine Tartrate/Timolol [Combigan 0.2%-0.5% OU SCH (10:00)
[2016-08-04] MEDS ORDERED: TIMOLOL 0.5% OPHTHALMIC SOL 5 ML BOTTLE OU SCH (10:00)
--- NOTE | 2016-08-04 10:07 | CONSULT ---
Admitting History and Physical - Primary Care Physician PCP: Benny Finley - Admission History of Present Illness: Per EMR: "HISTORY OF PRESENT ILLNESS: 50 year old obese female with pmh of CVA, TIA, HTN, Hyperlipidemia, ESRD on dialysis MWF, DM with complaint of left hand numbness. The symptoms started on Monday with numbness in the tips of the 3rd, 4th and 5th digit, which progressed to numbness in all the digits. Symptoms started during dialysis, she attributed them to hypotension and did not pursue medical care. The patient also has weakness of left hand which has been worsening. She would hold a cup and the cup would slip from her hand without her realizing it. Pt patient said she had symptoms of numbness in her hand back in 2014 when she had a CVA. The patient denies any slurred speech, facial droop, no visual changes, no difficulty swallowing, no dizziness or vertigo. 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 Cardiovascular: Yes: HTN, Hyperlipdemia, Other (Peripheral vascular disease) Pulmonary: Yes: Asthma, Sleep Apnea Gastrointestinal: Yes: Constipation Renal/: Yes: Renal Failure, Hemodialysis ...LMP: 07/08/16 Heme/Onc: Yes: Anemia Rheumatology: Yes: Other (See HPI) Endocrine: Yes: Diabetes Mellitus - Past Surgical History Past Surgical History: Yes: Amputation, AV Fistula/Graft, - Smoking History Smoking history: Never smoked Have you smoked in the past 12 months: No Aproximately how many cigarettes per day: 0 - Alcohol/Substance Use Hx Alcohol Use: No - Social History ADL: Independent History of Recent Travel: No History - Admission Reason For Visit: PAIN OF HAND - Diagnostics CT Scan: Report Reviewed (Moderate periventricular white matter changes likely on the basis of chronic microvascular ischemic changes with suggestion of focal encephalomalacia in the right parietal lobe. No gross acute intracranial pathology is identified. Correlate clinically to determine further evaluation.) MRI: Report Reviewed ( Moderately severe periventricular chronic microvascular ischemic changes again seen. Interval multiple tiny acute/subacute lacunar infarcts in the right frontal and parietal high convexity, right more the left as well as an acute/subacute lacunar infarct at the left parietal occipital junction.) Other: Report Reviewed (US carotid: Interval occluded right internal carotid artery. Correlation with CTA or MRA of the neck is recommended. Small plaques in the left common carotid bifurcation involving the bulb and proximal internal carotid artery without evidence of the significant.) - General Mental Status: Alert and Oriented, Awake and Alert, Able to Follow Commands Attention: Intact Ability to Follow Directions: Excellent Head/Neck Control: WFL - Hearing Hearing: Normal Speech Evaluation - Communication Primary Language: PAK[place] Communication: Yes: Within Normal Limits Oral Expression Ability: Yes: No Impairment - Speech Production Able to Make Needs Known: Yes: WNL Intelligibility: Yes: WNL - Speech Characteristics Voice Loudness: Normal Voice Pitch: Yes: Normal Voice Phonatory-based Quality: Yes: Normal Speech Pattern: Normal Speech Clarity: < 100% Nasal Resonance: Normal Articulation: Yes: Precise Rate of Speech: Intact - Language/Auditory Comprehension Follows: Yes: 2 Stage Simple Commands - Language/Verbal Expression Able to Respond to Simple Queries: Yes: WNL Able to Communicate Wants and Needs: Yes: WNL Functional Communication Status: Yes: WNL - Memory/Perception prison Memory: Yes: WNL Short Term Memory: Yes: WNL - Swallow Evaluation/Bedside Assessment Current Nutritional Intake: Regular, Thin Liquids Oral Secretions: Yes: WFL Dentition: Yes: Adequate Facial Symmetry at Rest: Symmetrical Facial Symmetry on Retraction: Symmetrical Sensation: Normal Against Resistance Opening: Normal Against Resistance Closing: Normal Pucker Lips: Normal Smile: Normal Lingual Movement: Normal, Symmetric Lingual Speed of Movement: Normal Lingual Movement Strgth Against Opposition: Normal Lingual Movement Characteristics: Normal Velopharyngeal Movement: Normal Laryngeal Elevation: WFL Laryngeal Movement: Able to Palpate Rate of Intake: WFL Bolus Size: WFL Labial Seal: WFL Chewing: WFL Oral Prep Time: WFL A-P Transit: WFL Pocketing: None Timing of Swallow: WFL Coughing/Throat Clear: No Change in Voice: No Recommendations - Speech Evaluation, Impression/Plan Impression: (+) MRI (multiple tiny acute/subacute lacunar infarcts in the right frontal and parietal high convexity, right more the left as well as an acute/ subacute lacunar infarct at the left parietal occipital junction) with Interval occluded right internal carotid artery on u/s. W/u in progress. Speech/language /swallowing/cognition all grossly intact. - Dysphagia Impressions/Plan Swallowing Skills: WF Dysphagia Impressions: No Impairment *Silent aspiration: cannot be R/O at bedside - Recommendations Diet Consistency: Regular Medication Administration: Whole with water Liquids: Thin Liquids
--- NOTE | 2016-08-04 10:17 | PN ---
Teaching Attending Note Name of Resident: Braydon Felipe ATTENDING PHYSICIAN STATEMENT I saw and evaluated the patient. I reviewed the resident's note and discussed the case with the resident. I agree with the resident's findings and plan as documented. SUBJECTIVE: Patient continues to complain of having left arm coolness which started 4 days ago as per patient. also continues to have LUE weakness. OBJECTIVE: Vital Signs Temperature 98.6 F 08/04/16 06:00 Pulse Rate 76 08/04/16 06:00 Respiratory Rate 16 08/04/16 06:00 Blood Pressure 146/78 08/04/16 06:00 O2 Sat by Pulse Oximetry (%) 100 08/04/16 01:20 CBCD WBC 8.0 K/mm3 (4.0-10.0) 08/03/16 16:24 RBC 3.16 M/mm3 (3.60-5.2) L 08/03/16 16:24 Hgb 10.7 GM/dL (10.7-15.3) D 08/03/16 16:24 Hct 32.3 % (32.4-45.2) L D 08/03/16 16:24 MCV 102.4 fl (80-96) H 08/03/16 16:24 MCHC 33.0 g/dl (32.0-36.0) 08/03/16 16:24 RDW 13.9 % (11.6-15.6) 08/03/16 16:24 Plt Count 204 K/MM3 (134-434) D 08/03/16 16:24 MPV 9.6 fl (7.5-11.1) 08/03/16 16:24 CMP Sodium 140 mmol/L (136-145) 08/03/16 16:24 Potassium 3.8 mmol/L (3.5-5.1) 08/03/16 16:24 Chloride 103 mmol/L (98-107) 08/03/16 16:24 Carbon Dioxide 24 mmol/L (21-32) 08/03/16 16:24 Anion Gap 13 (8-16) 08/03/16 16:24 BUN 23 mg/dL (7-18) H D 08/03/16 16:24 Creatinine 5.5 mg/dL (0.55-1.02) H D 08/03/16 16:24 Creat Clearance w eGFR 8.24 (>60) 08/03/16 16:24 Random Glucose 121 mg/dL (74-106) H D 08/03/16 16:24 Calcium 8.8 mg/dL (8.5-10.1) 08/03/16 16:24 Total Bilirubin 0.5 mg/dL (0.2-1.0) D 08/03/16 16:24 AST 19 U/L (15-37) D 08/03/16 16:24 ALT 26 U/L (12-78) 08/03/16 16:24 Alkaline Phosphatase 97 U/L (45-117) D 08/03/16 16:24 Total Protein 7.3 g/dl (6.4-8.2) 08/03/16 16:24 Albumin 3.6 g/dl (3.4-5.0) 08/03/16 16:24 CARDIAC ENZYMES Creatine Kinase 209 IU/L (26-192) H D 08/03/16 16:24 Troponin I < 0.02 ng/ml (0.00-0.05) 08/03/16 16:24 Current Medications Generic Name Dose Route Start Last Admin Trade Name Freq PRN Reason Stop Dose Admin Acetaminophen 650 mg 08/04/16 02:36 Tylenol - PO Q4H PRN FEVER OR PAIN Albuterol Sulfate 2 puff 08/04/16 00:39 Ventolin Hfa Inhaler - IH Q4H PRN ASTHMA Aspirin 325 mg 08/04/16 10:00 08/04/16 09:27 Ecotrin - PO Not Given DAILY [facility] Atorvastatin Calcium 80 mg 08/04/16 00:40 08/04/16 04:23 Lipitor - PO 80 mg HS [facility] Administration Bisacodyl 10 mg 08/04/16 00:39 Dulcolax - PO BID PRN CONSTIPATION Brimonidine Tartrate 2 drop 08/04/16 10:00 08/04/16 09:19 Alphagan 0.2% - OU Not Given DAILY [facility] Budesonide/Formoterol Fumarate 1 puff 08/04/16 10:00 08/04/16 09:19 Symbicort 160/4.5mcg - IH Not Given BID [facility] Carvedilol 12.5 mg 08/04/16 10:00 08/04/16 09:32 Coreg - PO 12.5 mg BID MANDO Administration Clonazepam 0.5 mg 08/04/16 10:00 08/04/16 09:32 Klonopin - PO 0.5 mg BID MANDO Administration Diphenhydramine HCl 50 mg 08/04/16 05:56 Benadryl - PO DAILY PRN FOR ITCHING Furosemide 40 mg 08/04/16 10:00 08/04/16 09:32 Lasix - PO 40 mg BID MANDO Administration Ceftriaxone Sodium 50 mls @ 100 mls/hr 08/04/16 10:00 Rocephin 1gm Ivpb (Pre-Docked) IVPB DAILY [facility] Insulin Aspart 1 vial 08/04/16 07:00 08/04/16 06:17 Novolog Vial Sliding Scale - SQ 6 units ACHS MANDO Administration Protocol Lidocaine/Prilocaine 1 applic 08/04/16 10:00 08/04/16 09:19 Emla - TP Not Given DAILY [facility] Metoclopramide HCl 10 mg 08/04/16 00:39 Reglan - PO TID PRN NAUSEA Ondansetron HCl 4 mg 08/04/16 00:39 Zofran - PO DAILY PRN NAUSEA Polyethylene Glycol 17 gm 08/04/16 10:00 08/04/16 09:33 Miralax (For Daily Use) - PO Not Given DAILY [facility] Ranitidine HCl 150 mg 08/04/16 10:00 08/04/16 09:36 Zantac - PO 150 mg DAILY [facility] Administration Senna 2 tab 08/04/16 00:39 Senna - PO DAILY PRN CONSTIPATION Timolol Maleate 2 drop 08/04/16 10:00 08/04/16 09:20 Timoptic 0.5% OU Not Given DAILY [facility] Home Medications Medication Instructions Recorded Acetaminophen [Tylenol -] 500 mg PO BID 08/03/16 Albuterol Sulfate Inhaler - 2 inh PO BID PRN 08/03/16 [Ventolin Hfa Inhaler -] Aspirin [Ecotrin] 325 mg PO DAILY 08/03/16 Atorvastatin Ca [Lipitor] 80 mg PO HS 08/03/16 Benzonatate 100 mg PO DAILY 08/03/16 Bisacodyl [Laxative] 10 mg PO BID PRN 08/03/16 Brimonidine Tartrate/Timolol 2 drop OU DAILY 08/03/16 [Combigan Eye Drops] Carvedilol [Coreg -] 12.5 mg PO BID 08/03/16 Clonazepam [Klonopin -] 0.5 mg PO BID 08/03/16 Diphenhydramine [Benadryl -] 50 mg PO DAILY 08/03/16 Famotidine [Pepcid -] 20 mg PO DAILY 08/03/16 Furosemide [Lasix] 40 mg PO BID 08/03/16 Insulin Aspart [Novolog] 100 unit SQ ACHS 08/03/16 Lidocaine/Prilocaine Cream [Emla -] 1 applic TP DAILY 08/03/16 Metoclopramide HCl [Reglan] 10 mg PO TID PRN 08/03/16 Mometasone/Formoterol [Dulera 100 2 inh IH BID 08/03/16 Mcg/5 Mcg Inhaler] Ondansetron [Zofran -] 4 mg PO DAILY PRN 08/03/16 Polyethylene Glycol 3350 [Miralax 17 gm PO DAILY 08/03/16 (For Daily Use) -] Propylene Glycol/Peg 400 [Systane 1 drop OP DAILY 08/03/16 Gel Eye Drops] Sennosides [Senna] 2 tab PO DAILY 08/03/16 Vit B Cmplx No3/FA/C/Biot/Zinc 1 each PO DAILY 08/03/16 [Nephplex Rx Tablet] NECK: No carotid bruit Extremeties: Coolness of LUE compared to right UE, power 4/5 of LUE. pulses are positive BL Carotid doppler: Status post stroke. Rule out carotid stenosis Bilateral carotid Doppler ultrasound Grayscale, pulsed Doppler and color Doppler interrogation of both carotid and both vertebral arteries was performed. Compared to prior examination dated The right common carotid, internal carotid and external external carotid artery were identified with a peak systolic velocity of 55 and 105 cm in the distal common carotid artery and external carotid artery, respectively. There is a moderate to large plaque in the proximal right internal carotid artery without evidence of flow The left common carotid, internal and external carotid artery were identified with a peak systolic velocity of 70, 58 and 83 cm/sec, respectively. Flow in the physiologic direction was documented in both vertebral arteries. Impression: Interval occluded right internal carotid artery. Correlation with CTA or MRA of the neck is recommended. Small plaques in the left common carotid bifurcation involving the bulb and proximal internal carotid artery without evidence of the significant. MRI of the brain without intravenous contrast A noncontrast MRI of the brain was performed with multiplanar T1 and T2-weighted images obtained. Compared to prior CT scan of the head dated 08/03/2016 and prior MRI of the brain dated 2015. There remains moderate atrophy and ventricular dilatation multiple T2 hyperintense foci are again seen in the periventricular and subcortical white matter, bilaterally consistent with moderately severe chronic microvascular ischemic changes. There is also focal encephalomalacia/old infarct in the right parietal lobe. There is a tiny focus of restricted diffusion in the left parietal lobe at the parietal occipital junction as well as multiple foci of restricted diffusion in the right frontal and parietal lobe, superiorly anterolisthesis extent in the left frontal/parietal high convexity consistent with acute/ subacute lacunar infarcts. No mass lesion or intracranial hemorrhage is seen. There is no shift of the midline structures. The craniocervical junction appears unremarkable. Flow voids are present within the central intracranial arteries circulation. No suspicious bone marrow abnormal signal is identified. Minimal mucosal thickening in the ethmoid air cells Impression Moderately severe periventricular chronic microvascular ischemic changes again seen. Interval multiple tiny acute/subacute lacunar infarcts in the right frontal and parietal high convexity, right more the left as well as an acute/subacute lacunar infarct at the left parietal occipital junction. ASSESSMENT AND PLAN: Pt is a 50 year old female with pmhx of ESRD, HTN, TIA, asthma, obesity, anemia , DM, left retinal detachment, and left eye blindness who presents to the ER complaining of left hand numbness and weakness x 4 days. #Acute/subacute Lacunar Infarcts in the right frontal and Parietal area on the right > as well as acute/subacute lacunar infarct at the left occipital junction. Patient is on Lipitor 80mg , asa 81mg EC, added Plavix 75mg po daily , initially patient was refusing Plavix .Going for CTA of the neck in am afterward will be dialyzed, Neuro consult appreciated # Moderate to large plaque in the proximal right internal Carotid Artery (no evidence of any Flow) she will go for CTA in am. Vascular surgeon will see the patient. #ESRD on HD will go for dialysis after CTA # Left upper extremity coolness ; arterial doppler ordered to r/o ischemia DVT Px: SCds, early ambulation , Asa 325mg , refusing other agents for now.
[2016-08-04] MEDS: CEFTRIAXONE 50 ML IVPB SCH (10:20)
--- NOTE | 2016-08-04 12:33 | CON.CARD ---
Cardiology Consult (text) - Consultation Consultation Note: cc: left hand numbness/weakness hpi: 50 f hx htn, dm, hld, esrd on hd, cva, pvd here with left hand numbness/ weakness. Mild numbness and weakness in left hand/fingers persisted for a few days, getting worse so came to ER. No radiation, no other neurological sxs. No cp, sob, palps, dizzy, loc, pnd, orthopnea, le edema. Found to have possible cva and carotid US with BHAVIN occlusion. pmh: per hpi psh: avf/graft social: no tob fam: no premature cad, scd ros: per hpi; no fever, nvd, negrete, vision changes, cough, nasal congestion, muscle pains, gib meds: Home Medications Medication Instructions Recorded Acetaminophen [Tylenol -] 500 mg PO BID 08/03/16 Albuterol Sulfate Inhaler - 2 inh PO BID PRN 08/03/16 [Ventolin Hfa Inhaler -] Aspirin [Ecotrin] 325 mg PO DAILY 08/03/16 Atorvastatin Ca [Lipitor] 80 mg PO HS 08/03/16 Benzonatate 100 mg PO DAILY 08/03/16 Bisacodyl [Laxative] 10 mg PO BID PRN 08/03/16 Brimonidine Tartrate/Timolol 2 drop OU DAILY 08/03/16 [Combigan Eye Drops] Carvedilol [Coreg -] 12.5 mg PO BID 08/03/16 Clonazepam [Klonopin -] 0.5 mg PO BID 08/03/16 Diphenhydramine [Benadryl -] 50 mg PO DAILY 08/03/16 Famotidine [Pepcid -] 20 mg PO DAILY 08/03/16 Furosemide [Lasix] 40 mg PO BID 08/03/16 Insulin Aspart [Novolog] 100 unit SQ ACHS 08/03/16 Lidocaine/Prilocaine Cream [Emla -] 1 applic TP DAILY 08/03/16 Metoclopramide HCl [Reglan] 10 mg PO TID PRN 08/03/16 Mometasone/Formoterol [Dulera 100 2 inh IH BID 08/03/16 Mcg/5 Mcg Inhaler] Ondansetron [Zofran -] 4 mg PO DAILY PRN 08/03/16 Polyethylene Glycol 3350 [Miralax 17 gm PO DAILY 08/03/16 (For Daily Use) -] Propylene Glycol/Peg 400 [Systane 1 drop OP DAILY 08/03/16 Gel Eye Drops] Sennosides [Senna] 2 tab PO DAILY 08/03/16 Vit B Cmplx No3/FA/C/Biot/Zinc 1 each PO DAILY 08/03/16 [Nephplex Rx Tablet] pe: Vital Signs Period Temp Pulse Resp BP Sys/[place] Pulse Ox Last 24 Hr 98.1 F-99.6 F 76-84 16-20 134-162/78-85 99-100 nad no jvd rrr s1s2 no mrg cta bl nl eff aaox3 no le e/c/c abd nt nd pos bs no jaundice diaphoresis pos dp pt, no carotid bruits Laboratory Last Values WBC 8.0 K/mm3 (4.0-10.0) 08/03/16 16:24 RBC 3.16 M/mm3 (3.60-5.2) L 08/03/16 16:24 Hgb 10.7 GM/dL (10.7-15.3) D 08/03/16 16:24 Hct 32.3 % (32.4-45.2) L D 08/03/16 16:24 MCV 102.4 fl (80-96) H 08/03/16 16:24 MCHC 33.0 g/dl (32.0-36.0) 08/03/16 16:24 RDW 13.9 % (11.6-15.6) 08/03/16 16:24 Plt Count 204 K/MM3 (134-434) D 08/03/16 16:24 MPV 9.6 fl (7.5-11.1) 08/03/16 16:24 Neutrophils % 66.3 % (42.8-82.8) 08/03/16 16:24 Lymphocytes % 22.7 % (8-40) 08/03/16 16:24 Monocytes % 6.7 % (3.8-10.2) 08/03/16 16:24 Eosinophils % 3.9 % (0-4.5) 08/03/16 16:24 Basophils % 0.4 % (0-2.0) 08/03/16 16:24 Sodium 140 mmol/L (136-145) 08/03/16 16:24 Potassium 3.8 mmol/L (3.5-5.1) 08/03/16 16:24 Chloride 103 mmol/L (98-107) 08/03/16 16:24 Carbon Dioxide 24 mmol/L (21-32) 08/03/16 16:24 Anion Gap 13 (8-16) 08/03/16 16:24 BUN 23 mg/dL (7-18) H D 08/03/16 16:24 Creatinine 5.5 mg/dL (0.55-1.02) H D 08/03/16 16:24 Creat Clearance w eGFR 8.24 (>60) 08/03/16 16:24 POC Glucometer 221 UNITS (()) 08/04/16 11:22 Random Glucose 121 mg/dL (74-106) H D 08/03/16 16:24 Hemoglobin A1c % 9.3 % (4.8-6.0) H D 08/04/16 05:35 Calcium 8.8 mg/dL (8.5-10.1) 08/03/16 16:24 Total Bilirubin 0.5 mg/dL (0.2-1.0) D 08/03/16 16:24 AST 19 U/L (15-37) D 08/03/16 16:24 ALT 26 U/L (12-78) 08/03/16 16:24 Alkaline Phosphatase 97 U/L (45-117) D 08/03/16 16:24 Creatine Kinase 209 IU/L (26-192) H D 08/03/16 16:24 CK-MB (CK-2) 2.200 ng/ml (0.5-3.6) 08/03/16 16:24 Troponin I < 0.02 ng/ml (0.00-0.05) 08/03/16 16:24 Total Protein 7.3 g/dl (6.4-8.2) 08/03/16 16:24 Albumin 3.6 g/dl (3.4-5.0) 08/03/16 16:24 Triglycerides 118 mg/dL (35-160) D 08/04/16 05:35 Cholesterol 99 mg/dL (50-200) 08/04/16 05:35 Total LDL Cholesterol 57 mg/dL (5-100) 08/04/16 05:35 HDL Cholesterol 33 mg/dL (40-60) L D 08/04/16 05:35 Vitamin B12 932 pg/ml (180-914) H 08/04/16 05:35 Serum Folate 16 ng/ml (3.1-17.5) 08/04/16 05:35 TSH 0.29 uIU/ml (0.358-3.74) L D 08/04/16 05:35 Urine Color Dkyellow 08/04/16 01:40 Urine Appearance Cloudy 08/04/16 01:40 Urine pH 5.0 (5.0-8.0) 08/04/16 01:40 Ur Specific Calvin 1.020 (1.005-1.025) 08/04/16 01:40 Urine Protein 2+ (NEGATIVE) H 08/04/16 01:40 Urine Glucose (UA) 3+ (NEGATIVE) H 08/04/16 01:40 Urine Ketones Trace (NEGATIVE) H 08/04/16 01:40 Urine Blood 1+ (NEGATIVE) H 08/04/16 01:40 Urine Nitrite Negative (NEGATIVE) 08/04/16 01:40 Urine Bilirubin Negative (NEGATIVE) 08/04/16 01:40 Urine Urobilinogen Negative E.U./dl (0.2-1.0) 08/04/16 01:40 Ur Leukocyte Esterase 3+ (NEGATIVE) H 08/04/16 01:40 Urine RBC 15 /hpf (0-3) 08/04/16 01:40 Urine WBC 306 /hpf (3-5) 08/04/16 01:40 Ur Epithelial Cells Many /hpf (FEW) 08/04/16 01:40 Urine Bacteria Many /hpf (NONE SEEN) 08/04/16 01:40 Hyaline Casts 7 /lpf 08/04/16 01:40 Urine Mucus Rare 08/04/16 01:40 echo 12/2015: nl lv/rv, no sig valve path cxr: clear lungs tele: sr ecg 08/03/16: sr, nl intervals, no ischemic changes a/p: 50 f hx htn, dm, hld, esrd on hd, cva, pvd here with left hand numbness/ weakness. acute cva: -neuro following -carotid US showed occluded BHAVIN, vascular consulted -can check updated echo, monitor on tele -during prior cva 08/2014 had fabio then showing no obvious cardiac etiology (only had moderate size nonmobile atheroma of aortic arch) htn: -cont bb hld: -cont statin esrd: -hd per renal
--- NOTE | 2016-08-04 12:34 | EKG ---
Test Reason : Blood Pressure : / mmHG Vent. Rate : 082 BPM Atrial Rate : 082 BPM P-R Int : 162 ms QRS Dur : 086 ms QT Int : 408 ms P-R-T Axes : 024 -22 038 degrees QTc Int : 476 ms NORMAL SINUS RHYTHM POSSIBLE LEFT ATRIAL ENLARGEMENT CANNOT RULE OUT ANTERIOR INFARCT , AGE UNDETERMINED ABNORMAL ECG WHEN COMPARED WITH ECG OF 30-JUN-2015 06:38, T WAVE AMPLITUDE HAS DECREASED IN ANTEROLATERAL LEADS Confirmed by SUE MATTA, CHERI ([id number]) on 08/04/2016 12:34:32 PM Referred By: Confirmed By:CHERI ROGERS MD
[2016-08-04 14:52] LABS: MCH 34.2 pg (25.7-33.7); MCHC 32.8 g/dl (32.0-36.0); MEAN PLT VOLUME 9.2 fl (7.5-11.1); PLATELET COUNT 167 K/MM3 (134-434); WHITE BLOOD COUNT 7.8 K/mm3 (4.0-10.0)
[2016-08-04 15:21] LABS: ANION GAP 13 (8-16); CO2 23 mmol/L (21-32); GLUCOSE,RANDOM 260 mg/dL (74-106)
[2016-08-04 15:23] LABS: TROPONIN I < 0.02 ng/ml (0.00-0.05)
--- NOTE | 2016-08-04 15:54 | CONSULT ---
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 No: Seizure Cardio/Vascular: Yes: HTN, Hyperlipdemia, Other (Peripheral vascular disease) Pulmonary: Yes: Asthma, Sleep Apnea Gastrointestinal: Yes: Constipation Renal/: Yes: Renal Failure, Hemodialysis ...LMP: 07/08/16 Rheumatology: Yes: Other (See HPI) Endocrine: Yes: Diabetes Mellitus - Past Surgical History Past Surgical History: Yes: Amputation, AV Fistula/Graft, - Alcohol/Substance Use Hx Alcohol Use: No - Smoking History Smoking history: Never smoked Have you smoked in the past 12 months: No Aproximately how many cigarettes per day: 0 - Social History ADL: Independent History of Recent Travel: No Home Medications - Allergies Allergies/Adverse Reactions: Allergies Allergy/AdvReac Type Severity Reaction Status Date / Time amoxicillin [Amoxicillin] Allergy Severe Itching Verified 08/03/16 15:23 hydrocodone bitartrate Allergy Severe Hives,ITCHI Verified 08/03/16 15:23 [From Vicodin] NG morphine Allergy Severe Itching Verified 08/03/16 15:23 neomycin [Neomycin] Allergy Severe Swelling Verified 08/03/16 15:23 oxycodone HCl [From Percocet] Allergy Severe Itching,HIV Verified 08/03/16 15:23 ES rofecoxib [From Vioxx] Allergy Severe Hives Verified 08/03/16 15:23 Sulfa (Sulfonamide Allergy Severe sclera Verified 08/03/16 15:23 Antibiotics) reddened,ITCHING tramadol Allergy Severe Vomiting Verified 08/03/16 15:23 grapefruit [Grapefruit] AdvReac Severe CAN'T TAKE Verified 08/03/16 15:23 BECAUSE OF MEDICATIONS vancomycin AdvReac Mild red man Verified 08/03/16 15:23 syndrome Heparin Analogues AdvReac Unknown Verified 08/03/16 15:23 [Heparin Agents] flu shot Allergy Severe GETS FLU Uncoded 08/03/16 15:23 SYMPTOMS grape juice AdvReac Severe Uncoded 08/03/16 15:23 - Home Medications Home Medications: Ambulatory Orders Acetaminophen [Tylenol -] 500 mg PO BID 08/03/16 Albuterol Sulfate Inhaler - [Ventolin Hfa Inhaler -] 2 inh PO BID PRN 08/03/16 Aspirin [Ecotrin] 325 mg PO DAILY 08/03/16 Atorvastatin Ca [Lipitor] 80 mg PO HS 08/03/16 Benzonatate 100 mg PO DAILY 08/03/16 Bisacodyl [Laxative] 10 mg PO BID PRN 08/03/16 Brimonidine Tartrate/Timolol [Combigan Eye Drops] 2 drop OU DAILY 08/03/16 Carvedilol [Coreg -] 12.5 mg PO BID 08/03/16 Clonazepam [Klonopin -] 0.5 mg PO BID 08/03/16 Diphenhydramine [Benadryl -] 50 mg PO DAILY 08/03/16 Famotidine [Pepcid -] 20 mg PO DAILY 08/03/16 Furosemide [Lasix] 40 mg PO BID 08/03/16 Insulin Aspart [Novolog] 100 unit SQ ACHS 08/03/16 Lidocaine/Prilocaine Cream [Emla -] 1 applic TP DAILY 08/03/16 Metoclopramide HCl [Reglan] 10 mg PO TID PRN 08/03/16 Mometasone/Formoterol [Dulera 100 Mcg/5 Mcg Inhaler] 2 inh IH BID 08/03/16 Ondansetron [Zofran -] 4 mg PO DAILY PRN 08/03/16 Polyethylene Glycol 3350 [Miralax (For Daily Use) -] 17 gm PO DAILY 08/03/16 Propylene Glycol/Peg 400 [Systane Gel Eye Drops] 1 drop OP DAILY 08/03/16 Sennosides [Senna] 2 tab PO DAILY 08/03/16 Vit B Cmplx No3/FA/C/Biot/Zinc [Nephplex Rx Tablet] 1 each PO DAILY 08/03/16 Physical Exam Vital Signs: Vital Signs Temperature 98.9 F 08/04/16 14:36 Pulse Rate 78 08/04/16 14:36 Respiratory Rate 18 08/04/16 14:36 Blood Pressure 157/86 08/04/16 14:36 O2 Sat by Pulse Oximetry (%) 99 08/04/16 09:00 Labs: CBC, BMP 08/04/16 14:35 08/04/16 14:35 Assessment/Plan Vascular Surgery The patient is a 50-year-old woman, accompanied by home health aide, with a significant past medical history of hypertension, transient ischemic attack, cranial atherosclerosis, anemia, asthma, insulin dependent diabetes mellitus, diabetic retinopathy, 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 M/W/F; received full treatment today without complications) and anxiety who presents to the emergency department for further evaluation of left hand numbness. No trauma. Vitals on arrival are notable for a blood pressure of 144/83, heart rate of 82 bpm, respiratory rate of 20 and oxygen saturation of 99% on room air. She states that approximately 5 days ago, she felt that her last three digits of her left hand were numb. Approximately 2 days ago, she felt that the first two digits of her left hand were numb. She was also noted to have slight facial droop and slurred speech, by her health aide, 2 days ago, but did not report to the ED, as they contributed her symptoms to hypotension. Today, she felt her entire left hand was numb. She states that her symptoms today, are similar to when she had a mini stroke in the past (08/25/2014), to when she was cooking in the kitchen and spilled tomato sauce over her left hand and did not feel it. She reports a similar episode today, as she was holding a juice container and it spilled a bit. Patient is right-handed dominant. 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 She also reports a pounding left temporal headache. No other complaints. No chest pain, lightheadedness, dizziness, palpitations. No abdominal pain, nausea, vomiting, diarrhea. No urinary complaints No cough, shortness of breath. Allergies: Amoxicillin. Hydrocodone. Morphine. Neomycin. Past Surgical History: Right arm AV graft placement. Left eye retinal detachment with total blindness of the left eye, Social History: Never smoked. No EtOH and recreational drug use. Primary Care Physician/ [employer]: Dr. Sebastián Parr [phone] PE Head - NC/AT Lung - CTA Heart - RRR ABd - soft,nt,nd Ext - Palpable pulses bilateral upper ext FROM in bilateral upper ext Weakness in strength in left hand MRI shows lacunar infarcts frontal, parietal region. Carotid doppler -- Right ICA occlusion. A/P Rignt subacute infarct in frontal and parietal region. 1. Will get CTA of carotids to see if there is a string sign in right ICA. 2. Will coordinate CTA with OBDULIA Ch DO
[2016-08-04 16:04] LABS: CREATININE 8.3 mg/dL (0.55-1.02)
--- NOTE | 2016-08-04 16:16 | CONSULT ---
Consult Consult Specialty:: Nephrology Reason for Consultation:: ESRD - History of Present Illness Chief Complaint: left arm weakness History of Present Illness: Pt is a 50 year old female with pmhx of ESRD, HTN, TIA, asthma, obesity, anemia , DM, left retinal detachment, and left eye blindness who presents to the ER complaining of left hand numbness and weakness. She says that this started abou 6 days ago and involved the 3rd 4th and 5th digit and that a few days ago she felt weakness in her whole hand. She says the numbness progressed to include the entire left hand. She last went to HD yesterday and is due tomorrow. She has a right arm graft. She denies shortness of breath or palpitations. 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: CVA Cardio/Vascular: Yes: HTN, Hyperlipdemia, Other (Peripheral vascular disease) Pulmonary: Yes: Asthma, Sleep Apnea Gastrointestinal: Yes: Constipation Renal/: Yes: Renal Failure, Hemodialysis ...LMP: 07/08/16 Rheumatology: Yes: Other (See HPI) Endocrine: Yes: Diabetes Mellitus - Past Surgical History Past Surgical History: Yes: Amputation, AV Fistula/Graft, - Alcohol/Substance Use Hx Alcohol Use: No - Smoking History Smoking history: Never smoked Have you smoked in the past 12 months: No Aproximately how many cigarettes per day: 0 - Social History ADL: Independent History of Recent Travel: No Home Medications - Allergies Allergies/Adverse Reactions: Allergies Allergy/AdvReac Type Severity Reaction Status Date / Time amoxicillin [Amoxicillin] Allergy Severe Itching Verified 08/03/16 15:23 hydrocodone bitartrate Allergy Severe Hives,ITCHI Verified 08/03/16 15:23 [From Vicodin] NG morphine Allergy Severe Itching Verified 08/03/16 15:23 neomycin [Neomycin] Allergy Severe Swelling Verified 08/03/16 15:23 oxycodone HCl [From Percocet] Allergy Severe Itching,HIV Verified 08/03/16 15:23 ES rofecoxib [From Vioxx] Allergy Severe Hives Verified 08/03/16 15:23 Sulfa (Sulfonamide Allergy Severe sclera Verified 08/03/16 15:23 Antibiotics) reddened,ITCHING tramadol Allergy Severe Vomiting Verified 08/03/16 15:23 grapefruit [Grapefruit] AdvReac Severe CAN'T TAKE Verified 08/03/16 15:23 BECAUSE OF MEDICATIONS vancomycin AdvReac Mild red man Verified 08/03/16 15:23 syndrome Heparin Analogues AdvReac Unknown Verified 08/03/16 15:23 [Heparin Agents] flu shot Allergy Severe GETS FLU Uncoded 08/03/16 15:23 SYMPTOMS grape juice AdvReac Severe Uncoded 08/03/16 15:23 - Home Medications Home Medications: Ambulatory Orders Acetaminophen [Tylenol -] 500 mg PO BID 08/03/16 Albuterol Sulfate Inhaler - [Ventolin Hfa Inhaler -] 2 inh PO BID PRN 08/03/16 Aspirin [Ecotrin] 325 mg PO DAILY 08/03/16 Atorvastatin Ca [Lipitor] 80 mg PO HS 08/03/16 Benzonatate 100 mg PO DAILY 08/03/16 Bisacodyl [Laxative] 10 mg PO BID PRN 08/03/16 Brimonidine Tartrate/Timolol [Combigan Eye Drops] 2 drop OU DAILY 08/03/16 Carvedilol [Coreg -] 12.5 mg PO BID 08/03/16 Clonazepam [Klonopin -] 0.5 mg PO BID 08/03/16 Diphenhydramine [Benadryl -] 50 mg PO DAILY 08/03/16 Famotidine [Pepcid -] 20 mg PO DAILY 08/03/16 Furosemide [Lasix] 40 mg PO BID 08/03/16 Insulin Aspart [Novolog] 100 unit SQ ACHS 08/03/16 Lidocaine/Prilocaine Cream [Emla -] 1 applic TP DAILY 08/03/16 Metoclopramide HCl [Reglan] 10 mg PO TID PRN 08/03/16 Mometasone/Formoterol [Dulera 100 Mcg/5 Mcg Inhaler] 2 inh IH BID 08/03/16 Ondansetron [Zofran -] 4 mg PO DAILY PRN 08/03/16 Polyethylene Glycol 3350 [Miralax (For Daily Use) -] 17 gm PO DAILY 08/03/16 Propylene Glycol/Peg 400 [Systane Gel Eye Drops] 1 drop OP DAILY 08/03/16 Sennosides [Senna] 2 tab PO DAILY 08/03/16 Vit B Cmplx No3/FA/C/Biot/Zinc [Nephplex Rx Tablet] 1 each PO DAILY 08/03/16 Family Disease History - Family Disease History Family History: Denies Review of Systems - Review of Systems Constitutional: reports: No Symptoms Eyes: reports: No Symptoms HENT: reports: No Symptoms Neck: reports: No Symptoms Cardiovascular: reports: No Symptoms Respiratory: reports: No Symptoms Gastrointestinal: reports: No Symptoms Genitourinary: reports: No Symptoms Musculoskeletal: reports: No Symptoms Integumentary: reports: No Symptoms Neurological: reports: Other (left hand weakness) Endocrine: reports: No Symptoms Physical Exam Vital Signs: Vital Signs Temperature 98.9 F 08/04/16 14:36 Pulse Rate 78 08/04/16 14:36 Respiratory Rate 18 08/04/16 14:36 Blood Pressure 157/86 08/04/16 14:36 O2 Sat by Pulse Oximetry (%) 99 08/04/16 09:00 Constitutional: Yes: Calm Eyes: Yes: Conjunctiva Clear HENT: Yes: Atraumatic Neck: Yes: Supple Cardiovascular: Yes: S1, S2 Respiratory: Yes: CTA Bilaterally Gastrointestinal: Yes: Normal Bowel Sounds, Soft Musculoskeletal: Yes: WNL Edema: No Neurological: Yes: Oriented, Other (left hand weakness) Psychiatric: Yes: Oriented Labs: CBC, BMP 08/04/16 14:35 08/04/16 14:35 Laboratory Tests 08/03/16 08/03/16 08/04/16 16:24 16:24 14:35 WBC 8.0 Hgb 10.7 D Plt Count 204 D Sodium 136 Potassium 4.1 Chloride 100 Carbon Dioxide 23 Anion Gap 13 BUN 23 H D 41 H D Creatinine 5.5 H D 8.3 H* Random Glucose 260 H D 08/04/16 14:35 WBC 7.8 Hgb 11.5 Plt Count 167 Sodium Potassium Chloride Carbon Dioxide Anion Gap BUN Creatinine Random Glucose Imaging - Results Ultrasound: Report Reviewed Problem List - Problems (1) Diabetes Code(s): E11.9 - TYPE 2 DIABETES MELLITUS WITHOUT COMPLICATIONS (2) ESRD (end stage renal disease) Code(s): N18.6 - END STAGE RENAL DISEASE (3) Hypertension Code(s): I10 - ESSENTIAL (PRIMARY) HYPERTENSION (4) Anemia Code(s): D64.9 - ANEMIA, UNSPECIFIED Assessment/Plan Current Medications Generic Name Dose Route Start Last Admin Trade Name Freq PRN Reason Stop Dose Admin Acetaminophen 650 mg 08/04/16 02:36 Tylenol - PO Q4H PRN FEVER OR PAIN Albuterol Sulfate 2 puff 08/04/16 00:39 Ventolin Hfa Inhaler - IH Q4H PRN ASTHMA Aspirin 325 mg 08/04/16 10:00 08/04/16 09:27 Ecotrin - PO Not Given DAILY M[facility]O Atorvastatin Calcium 80 mg 08/04/16 00:40 08/04/16 04:23 Lipitor - PO 80 mg HS MANDO Administration Bisacodyl 10 mg 08/04/16 00:39 Dulcolax - PO BID PRN CONSTIPATION Brimonidine Tartrate 2 drop 08/04/16 10:00 08/04/16 09:19 Alphagan 0.2% - OU Not Given DAILY [facility] Budesonide/Formoterol Fumarate 1 puff 08/04/16 10:00 08/04/16 09:19 Symbicort 160/4.5mcg - IH Not Given BID M[facility]O Carvedilol 12.5 mg 08/04/16 10:00 08/04/16 09:32 Coreg - PO 12.5 mg BID M[facility]O Administration Clonazepam 0.5 mg 08/04/16 10:00 08/04/16 09:32 Klonopin - PO 0.5 mg BID M[facility] Administration Diphenhydramine HCl 50 mg 08/04/16 05:56 Benadryl - PO DAILY PRN FOR ITCHING Furosemide 40 mg 08/04/16 10:00 08/04/16 09:32 Lasix - PO 40 mg BID [facility] Administration Ceftriaxone Sodium 50 mls @ 100 mls/hr 08/04/16 10:00 08/04/16 10:20 Rocephin 1gm Ivpb (Pre-Docked) IVPB 100 mls/hr DAILY [facility] Administration Insulin Aspart 1 vial 08/04/16 07:00 08/04/16 12:00 Novolog Vial Sliding Scale - SQ 4 units ACHS MANDO Administration Protocol Lidocaine/Prilocaine 1 applic 08/04/16 10:00 08/04/16 09:19 Emla - TP Not Given DAILY [facility] Metoclopramide HCl 10 mg 08/04/16 00:39 Reglan - PO TID PRN NAUSEA Brimonidine 0.2%/ 0 each 08/05/16 10:00 Timolol 0.5% ( OD Combigan) Eye Drops DAILY [facility] (Pt's Own) Ondansetron HCl 4 mg 08/04/16 00:39 Zofran - PO DAILY PRN NAUSEA Polyethylene Glycol 17 gm 08/04/16 10:00 08/04/16 09:33 Miralax (For Daily Use) - PO Not Given DAILY [facility] Ranitidine HCl 150 mg 08/04/16 10:00 08/04/16 09:36 Zantac - PO 150 mg DAILY [facility] Administration Senna 2 tab 08/04/16 00:39 Senna - PO DAILY PRN CONSTIPATION Timolol Maleate 2 drop 08/04/16 10:00 08/04/16 09:20 Timoptic 0.5% OU Not Given DAILY [facility] Impression 1. ESRD 2. CVA vs TIA 3. DM 4. HLD 5. HTN 6. anemia 7. anxiety Plan - will arrange for HD tomorrow - vascular input appreciated - CTA in am, HD after ct - monitor blood pressure - resume home meds - will follow Dr Sharma
--- NOTE | 2016-08-04 17:04 | PN ---
Physical Exam: SUBJECTIVE: Patient seen and examined at bedside. No new complaints. Remains concerned about numbness of left hand. Denies CP,DEJESUS, SOB, abd. pain, N/V. OBJECTIVE: Vital Signs Period Temp Pulse Resp BP Sys/[place] Pulse Ox Last 24 Hr 98.4 F-98.9 F 78-78 18-18 145-157/86-92 99 GENERAL: AAOx3 , NAD HEAD: AT/NC EYES: PERRL, extraocular movements intact, sclera anicteric, conjunctiva clear. proptosis(+) ENT: Ears normal, nares patent, oropharynx clear without exudates, moist mucous membranes. NECK supple, no bruits, no JVD LUNGS: Breath sounds equal, clear to auscultation bilaterally, no wheezes, no crackles, no accessory muscle use. HEART: Regular rate and rhythm, S1, S2 without murmur, rub or gallop. ABDOMEN: Soft, nontender, nondistended, normoactive bowel sounds, no guarding, no rebound, no hepatosplenomegaly, no masses. EXTREMITIES: RUE 2+ pulses, warm, well-perfused, no edema.LUE shows 2+ pulses, slightly cool to touch NEUROLOGICAL: 5/5 strength bilat lower ext. Weakness of left hand.LUE Proximal strength 5/5 . Cranial nerves II through XII grossly intact. Normal speech, gait not observed. PSYCH: Normal mood, normal affect. Laboratory Results - last 24 hr 08/04/16 08/04/16 08/04/16 11:22 14:35 14:35 WBC 7.8 RBC 3.36 L Hgb 11.5 Hct 34.9 MCV 104.0 H MCHC 32.8 RDW 14.0 Plt Count 167 MPV 9.2 Sodium 136 Potassium 4.1 Chloride 100 Carbon Dioxide 23 Anion Gap 13 BUN 41 H D Creatinine 8.3 H* POC Glucometer 221 Random Glucose 260 H D Calcium 9.0 Creatine Kinase 182 Troponin I < 0.02 08/04/16 14:35 WBC RBC Hgb Hct MCV MCHC RDW Plt Count MPV Sodium Cancelled Potassium Cancelled Chloride Cancelled Carbon Dioxide Cancelled Anion Gap Cancelled BUN Cancelled Creatinine Cancelled POC Glucometer Random Glucose Cancelled Calcium Cancelled Creatine Kinase Troponin I Active Medications Generic Name Dose Route Start Last Admin Trade Name Freq PRN Reason Stop Dose Admin Acetaminophen 650 mg 08/04/16 02:36 Tylenol - PO Q4H PRN FEVER OR PAIN Albuterol Sulfate 2 puff 08/04/16 00:39 Ventolin Hfa Inhaler - IH Q4H PRN ASTHMA Aspirin 325 mg 08/04/16 10:00 08/04/16 09:27 Ecotrin - PO Not Given DAILY [facility] Atorvastatin Calcium 80 mg 08/04/16 00:40 08/04/16 04:23 Lipitor - PO 80 mg HS MANDO Administration Bisacodyl 10 mg 08/04/16 00:39 Dulcolax - PO BID PRN CONSTIPATION Brimonidine Tartrate 2 drop 08/04/16 10:00 08/04/16 09:19 Alphagan 0.2% - OU Not Given DAILY [facility] Budesonide/Formoterol Fumarate 1 puff 08/04/16 10:00 08/04/16 09:19 Symbicort 160/4.5mcg - IH Not Given BID [facility] Carvedilol 12.5 mg 08/04/16 10:00 08/04/16 09:32 Coreg - PO 12.5 mg BID [facility] Administration Clonazepam 0.5 mg 08/04/16 10:00 08/04/16 09:32 Klonopin - PO 0.5 mg BID [facility] Administration Diphenhydramine HCl 50 mg 08/04/16 05:56 Benadryl - PO DAILY PRN FOR ITCHING Furosemide 40 mg 08/04/16 10:00 08/04/16 09:32 Lasix - PO 40 mg BID [facility] Administration Ceftriaxone Sodium 50 mls @ 100 mls/hr 08/04/16 10:00 08/04/16 10:20 Rocephin 1gm Ivpb (Pre-Docked) IVPB 100 mls/hr DAILY [facility] Administration Insulin Aspart 1 vial 08/04/16 07:00 08/04/16 12:00 Novolog Vial Sliding Scale - SQ 4 units ACHS MANDO Administration Protocol Lidocaine/Prilocaine 1 applic 08/04/16 10:00 08/04/16 09:19 Emla - TP Not Given DAILY [facility] Metoclopramide HCl 10 mg 08/04/16 00:39 Reglan - PO TID PRN NAUSEA Brimonidine 0.2%/ 0 each 08/05/16 10:00 Timolol 0.5% ( OD Combigan) Eye Drops DAILY [facility] (Pt's Own) Ondansetron HCl 4 mg 08/04/16 00:39 Zofran - PO DAILY PRN NAUSEA Paricalcitol 2 mcg 08/04/16 16:30 Zemplar - IVPUSH 08/04/16 16:31 ONCE ONE Polyethylene Glycol 17 gm 08/04/16 10:00 08/04/16 09:33 Miralax (For Daily Use) - PO Not Given DAILY [facility] Ranitidine HCl 150 mg 08/04/16 10:00 08/04/16 09:36 Zantac - PO 150 mg DAILY [facility] Administration Senna 2 tab 08/04/16 00:39 Senna - PO DAILY PRN CONSTIPATION Timolol Maleate 2 drop 08/04/16 10:00 08/04/16 09:20 Timoptic 0.5% OU Not Given DAILY [facility] ASSESSMENT/PLAN: Problem List - Problems (1) Paresthesias in left hand Assessment/Plan: * MRA shows multiple small lacunar infarcts. * ASA daily * Neurology consult Dr. Faye. * Carotid US shows significant stenosis * Will obtain neck CTA in AM prior to dialysis. * Consulted Dr. Ch (vascular surgery) (2) Diabetes Assessment/Plan: * Stopped Pump * ADA diet * ISS ACHS * BGM ACHS (3) ESRD (end stage renal disease) Assessment/Plan: * Dr. Pritchard consulted * will dialyze tomorrow * Usual schedule is MW. (4) Hypertension Assessment/Plan: * Continue home meds * Carvedilol (Coreg -) 12.5 mg PO BID * Furosemide (Lasix -) 40 mg PO BID * Hydralazine HCl (Apresoline -) 25 mg PO BID Visit type - Emergency Visit Emergency Visit: Yes ED Registration Date: 08/04/16 Care time: The patient presented to the Emergency Department on the above date and was hospitalized for further evaluation of their emergent condition. - New Patient This patient is new to me today: Yes Date on this admission: 08/04/16 - Critical Care Critical Care patient: No
[2016-08-04] MEDS ORDERED: INSULIN (NOVOLOG) ASPART 100 UNITS/ML 10ML VIAL SQ ONE (17:18)
[2016-08-04] MEDS: CLOPIDOGREL BISULFATE 75 MG TABLET (FP) PO SCH (18:35)
--- NOTE | 2016-08-04 21:56 | CONSULT ---
Consult - text type - Consultation Consultation Note: NEUROLOGY CONSULTATION is greatly appreciated: This 50 yo RH woman with chronic IDDM (on pump), HTN, Chol, ASHD, PVD, on multiple meds. 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 S/P CVA 2014 with left hand numbness and weakness that improved but never normalized. Didn't walk x 1- 11/2 years in 2010 due to foot complications. Required corrective surgery for left achilles tendon contracture to regain ambulation. Walks with rollator but falls in the street. 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 Last Monday had increased Left hand numbness and weakness. "Dropping things." MRI of brain (reviewed): Diffuse, ischemic white matter microvascular changes. Carotid Duplex Doppler: Right carotid occlusion. ANTONIO: Obese. No bruits. Cor Reg. Toe amputations. NEURO: Awake, alert, friendly and cooperative. MS/speech: Normal CN: Sees light on L, counts fingers on right. No facial. gag OK Motor: Min L drift. Left grasp 4/5. Decreased BILLY's. B/L ankle DF 4-/5. Brisk reflexes except absent AJ's. No FTN dystaxia Decreased vibration to knees. Romberg + Gait is wide-based and shuffling. IMP: 1. Mild R cerebral dysfunction with mild Left hemiparesis. 2. Severe diabetic peripheral neuropathy/ retinopathy 3. Right carotid occlusion. The paucity of clinical findings supports a rather gradual thrombo-occlusive etiology allowing time for collateral formation. SUGGEST: Appreciate w/u outlined by Dr. Ch. Doubt surgery will be the outcome. Antiplatelet Rx. Continue supportive care/ diabetic footcare/ neuro f/u for eval and Rx of neuropathy and to look for possibly treatable complications such as ulnar neuropathy or carpal tunnel syndrome. PT for gait with walker and consideration of AFO's. Thank you very much, Simone Faye MD
[2016-08-04] MEDS ORDERED: TIMOLOL 0.5% OD SCH (22:00)
[2016-08-04] MEDS ORDERED: EYE OD SCH (22:00)
[2016-08-04] MEDS ORDERED: hydrALAZINE HCL 25 MG TABLET (FP) PO SCH ×2 (22:00)
[2016-08-04] MEDS ORDERED: BRIMONIDINE OD SCH (22:00)
[2016-08-04] MEDS: hydrALAZINE HCL 50 MG TABLET (FP) PO SCH (22:45)
[2016-08-05] MEDS: INSULIN SLIDING SCALE (NOVOLOG) 1 VIAL SQ SCH ×4 (06:56→23:00)
[2016-08-05 09:05] LABS: FREE T4 1.23 ng/dl (0.76-1.46); THYROID STIMULATING HORMONE 0.28 uIU/ml (0.358-3.74)
[2016-08-05] MEDS: SEVELAMER CARBONATE 800 MG TAB (FP) PO SCH ×3 (09:44→17:49)
[2016-08-05] MEDS: BUDESONIDE/FORMETEROL FUMARATE 160/4.5 mcg INHALER IH SCH ×3 (09:51→21:24)
[2016-08-05] MEDS: POLYETHYLENE GLYCOL 3350 119 GM BTL PO SCH (09:51)
[2016-08-05] MEDS: BACITRACIN 15 GM TUBE TOPICAL OINTMENT TP SCH ×2 (09:59→21:18)
[2016-08-05] MEDS: ASPIRIN COATED 81 MG TABLET.EC PO SCH ×2 (09:59→12:00)
[2016-08-05] MEDS: hydrALAZINE HCL 50 MG TABLET (FP) PO SCH ×3 (09:59→21:17)
[2016-08-05] MEDS: CARVEDILOL 12.5 MG TABLET (FP) PO SCH ×2 (09:59→21:18)
[2016-08-05] MEDS: TIMOLOL 0.5% OU SCH ×2 (10:01→21:19)
[2016-08-05] MEDS: EYE OU SCH ×2 (10:01→21:19)
[2016-08-05] MEDS: VITAMIN B COMP W-C 1 EA TABLET PO SCH ×2 (10:01→12:00)
[2016-08-05] MEDS: clonazePAM 0.5 MG TABLET PO SCH ×3 (10:01→21:17)
[2016-08-05] MEDS: RANITIDINE HCL 150 MG TABLET (FP) PO SCH ×2 (10:01→12:02)
[2016-08-05] MEDS: CEFTRIAXONE 50 ML IVPB SCH (10:01)
[2016-08-05] MEDS: FUROSEMIDE 40 MG TABLET (FP) PO SCH ×2 (10:01→21:02)
[2016-08-05] MEDS: LIDOCAINE 2.5%/PRILOCAINE 2.5% (5 Gram/TUBE) TP SCH (10:01)
[2016-08-05] MEDS: BRIMONIDINE OU SCH ×2 (10:01→21:19)
[2016-08-05] MEDS: CLOPIDOGREL BISULFATE 75 MG TABLET (FP) PO SCH ×2 (10:01→12:00)
--- NOTE | 2016-08-05 10:38 | PN ---
Progress Note (short form) - Note Progress Note: s: no cp sob palps dizzy o: Vital Signs Period Temp Pulse Resp BP Sys/[place] Pulse Ox Last 24 Hr 98.1 F-99.2 F 76-81 18-20 135-157/61-87 96 nad no jvd rrr s1s2 no mrg cta bl nl eff aaox3 no le e/c/c abd nt nd pos bs no jaundice diaphoresis Current Medications Generic Name Dose Route Start Last Admin Trade Name Freq PRN Reason Stop Dose Admin Acetaminophen 650 mg 08/04/16 02:36 Tylenol - PO Q4H PRN FEVER OR PAIN Albuterol Sulfate 2 puff 08/04/16 00:39 Ventolin Hfa Inhaler - IH Q4H PRN ASTHMA Aspirin 81 mg 08/05/16 10:00 08/05/16 09:59 Ecotrin - PO Not Given DAILY [facility] Atorvastatin Calcium 80 mg 08/04/16 00:40 08/04/16 21:39 Lipitor - PO 80 mg HS MANDO Administration Bacitracin 1 applic 08/05/16 10:00 08/05/16 09:59 Bacitracin - TP Not Given BID [facility] Bisacodyl 10 mg 08/04/16 00:39 Dulcolax - PO BID PRN CONSTIPATION Budesonide/Formoterol Fumarate 1 puff 08/04/16 10:00 08/05/16 09:51 Symbicort 160/4.5mcg - IH Not Given BID [facility] Carvedilol 12.5 mg 08/04/16 10:00 08/05/16 09:59 Coreg - PO Not Given BID [facility] Clonazepam 0.5 mg 08/04/16 10:00 08/05/16 10:01 Klonopin - PO Not Given BID [facility] Clopidogrel Bisulfate 75 mg 08/04/16 17:45 08/05/16 10:01 Plavix - PO Not Given DAILY [facility] Diphenhydramine HCl 50 mg 08/04/16 05:56 08/04/16 21:24 Benadryl - PO 50 mg DAILY PRN Administration FOR ITCHING Furosemide 40 mg 08/04/16 10:00 08/05/16 10:01 Lasix - PO Not Given BID [facility] Hydralazine HCl 50 mg 08/04/16 22:00 08/05/16 09:59 Apresoline - PO 08/07/16 21:59 Not Given BID [facility] Ceftriaxone Sodium 50 mls @ 100 mls/hr 08/04/16 10:00 08/05/16 10:01 Rocephin 1gm Ivpb (Pre-Docked) IVPB Not Given DAILY [facility] Insulin Aspart 1 vial 08/04/16 17:30 08/05/16 06:56 Novolog Vial Sliding Scale - SQ 6 units ACHS MANDO Administration Protocol Lidocaine/Prilocaine 1 applic 08/04/16 10:00 08/05/16 10:01 Emla - TP Not Given DAILY [facility] Metoclopramide HCl 10 mg 08/04/16 00:39 Reglan - PO TID PRN NAUSEA Multivit/Ca Carb/B Cmplx/FA/Prenat 1 tablet 08/05/16 10:00 08/05/16 10:01 Nephro-Robb - PO Not Given DAILY [facility] Brimonidine 0.2%/ 2 each 08/05/16 00:21 08/05/16 10:01 Timolol 0.5% ( OU Not Given Combigan) Eye Drops BID [facility] (Pt's Own) Ondansetron HCl 4 mg 08/04/16 00:39 Zofran - PO DAILY PRN NAUSEA Paricalcitol 2 mcg 08/04/16 16:30 Zemplar - IVPUSH 08/04/16 16:31 ONCE ONE Polyethylene Glycol 17 gm 08/04/16 10:00 08/05/16 09:51 Miralax (For Daily Use) - PO Not Given DAILY [facility] Ranitidine HCl 150 mg 08/04/16 10:00 08/05/16 10:01 Zantac - PO Not Given DAILY [facility] Senna 2 tab 08/04/16 00:39 Senna - PO DAILY PRN CONSTIPATION Sevelamer Carbonate 1,600 mg 08/05/16 08:00 08/05/16 09:44 Renvela - PO Not Given TIDCM [facility] CBC, BMP 08/04/16 14:35 08/04/16 14:35 echo 12/2015: nl lv/rv, no sig valve path echo 07/2016: nl lv/rv, no sig valve path cxr: clear lungs tele: sr ecg 08/03/16: sr, nl intervals, no ischemic changes a/p: 50 f hx htn, dm, hld, esrd on hd, cva, pvd here with left hand numbness/ weakness. acute cva: -neuro following -carotid US showed occluded BHAVIN, vascular following, pt had cta neck, results pending -echo, tele benign here -during prior cva 08/2014 had fabio then showing no obvious cardiac etiology (only had moderate size nonmobile atheroma of aortic arch) htn: -cont bb hld: -cont statin esrd: -hd per renal
--- NOTE | 2016-08-05 10:51 | PN ---
Physical Exam: SUBJECTIVE: Patient seen and examined at bedside. No overnight events. She is concerned she is not being dialyzed earlier but explained she will be dialyzed this afternoon. Hand continues to have numbness. Denies CP,DEJESUS, palpitations, abd. pain, N/V. OBJECTIVE: Vital Signs Period Temp Pulse Resp BP Sys/[place] Pulse Ox Last 24 Hr 98.1 F-99.2 F 76-81 18-20 135-157/61-87 96 GENERAL: AAOx3 , NAD HEAD: AT/NC EYES: PERRL, extraocular movements intact, sclera anicteric, conjunctiva clear. proptosis(+) ENT: Ears normal, nares patent, oropharynx clear without exudates, moist mucous membranes. NECK supple, no bruits, no JVD LUNGS: Breath sounds equal, clear to auscultation bilaterally, no wheezes, no crackles, no accessory muscle use. HEART: Regular rate and rhythm, S1, S2 without murmur, rub or gallop. ABDOMEN: Soft, nontender, nondistended, normoactive bowel sounds, no guarding, no rebound, no hepatosplenomegaly, no masses. EXTREMITIES: RUE 2+ pulses, warm, well-perfused, no edema.LUE shows 2+ pulses, slightly cool to touch NEUROLOGICAL: 5/5 strength bilat lower ext. Weakness of left hand.LUE Proximal strength 5/5 . Cranial nerves II through XII grossly intact. Normal speech, gait not observed. PSYCH: Normal mood, normal affect Laboratory Results - last 24 hr 08/04/16 08/04/16 08/04/16 11:22 14:35 14:35 WBC 7.8 RBC 3.36 L Hgb 11.5 Hct 34.9 MCV 104.0 H MCHC 32.8 RDW 14.0 Plt Count 167 MPV 9.2 Sodium 136 Potassium 4.1 Chloride 100 Carbon Dioxide 23 Anion Gap 13 BUN 41 H D Creatinine 8.3 H* POC Glucometer 221 Random Glucose 260 H D Calcium 9.0 Creatine Kinase 182 Troponin I < 0.02 TSH Free T4 08/04/16 08/04/16 08/04/16 14:35 17:06 21:14 WBC RBC Hgb Hct MCV MCHC RDW Plt Count MPV Sodium Cancelled Potassium Cancelled Chloride Cancelled Carbon Dioxide Cancelled Anion Gap Cancelled BUN Cancelled Creatinine Cancelled POC Glucometer 259 272 Random Glucose Cancelled Calcium Cancelled Creatine Kinase Troponin I TSH Free T4 08/05/16 08/05/16 05:55 06:20 WBC RBC Hgb Hct MCV MCHC RDW Plt Count MPV Sodium Potassium Chloride Carbon Dioxide Anion Gap BUN Creatinine POC Glucometer 223 Random Glucose Calcium Creatine Kinase Troponin I TSH 0.28 L D Free T4 1.23 D Active Medications Generic Name Dose Route Start Last Admin Trade Name Freq PRN Reason Stop Dose Admin Acetaminophen 650 mg 08/04/16 02:36 Tylenol - PO Q4H PRN FEVER OR PAIN Albuterol Sulfate 2 puff 08/04/16 00:39 Ventolin Hfa Inhaler - IH Q4H PRN ASTHMA Aspirin 81 mg 08/05/16 10:00 08/05/16 09:59 Ecotrin - PO Not Given DAILY [facility] Atorvastatin Calcium 80 mg 08/04/16 00:40 08/04/16 21:39 Lipitor - PO 80 mg HS MANDO Administration Bacitracin 1 applic 08/05/16 10:00 08/05/16 09:59 Bacitracin - TP Not Given BID [facility] Bisacodyl 10 mg 08/04/16 00:39 Dulcolax - PO BID PRN CONSTIPATION Budesonide/Formoterol Fumarate 1 puff 08/04/16 10:00 08/05/16 09:51 Symbicort 160/4.5mcg - IH Not Given BID [facility] Carvedilol 12.5 mg 08/04/16 10:00 08/05/16 09:59 Coreg - PO Not Given BID [facility] Clonazepam 0.5 mg 08/04/16 10:00 08/05/16 10:01 Klonopin - PO Not Given BID [facility] Clopidogrel Bisulfate 75 mg 08/04/16 17:45 08/05/16 10:01 Plavix - PO Not Given DAILY [facility] Diphenhydramine HCl 50 mg 08/04/16 05:56 08/04/16 21:24 Benadryl - PO 50 mg DAILY PRN Administration FOR ITCHING Furosemide 40 mg 08/04/16 10:00 08/05/16 10:01 Lasix - PO Not Given BID [facility] Hydralazine HCl 50 mg 08/04/16 22:00 08/05/16 09:59 Apresoline - PO 08/07/16 21:59 Not Given BID [facility] Ceftriaxone Sodium 50 mls @ 100 mls/hr 08/04/16 10:00 08/05/16 10:01 Rocephin 1gm Ivpb (Pre-Docked) IVPB Not Given DAILY [facility] Insulin Aspart 1 vial 08/04/16 17:30 08/05/16 06:56 Novolog Vial Sliding Scale - SQ 6 units ACHS MANDO Administration Protocol Lidocaine/Prilocaine 1 applic 08/04/16 10:00 08/05/16 10:01 Emla - TP Not Given DAILY [facility] Metoclopramide HCl 10 mg 08/04/16 00:39 Reglan - PO TID PRN NAUSEA Multivit/Ca Carb/B Cmplx/FA/Prenat 1 tablet 08/05/16 10:00 08/05/16 10:01 Nephro-Robb - PO Not Given DAILY [facility] Brimonidine 0.2%/ 2 each 08/05/16 00:21 08/05/16 10:01 Timolol 0.5% ( OU Not Given Combigan) Eye Drops BID [facility] (Pt's Own) Ondansetron HCl 4 mg 08/04/16 00:39 Zofran - PO DAILY PRN NAUSEA Paricalcitol 2 mcg 08/04/16 16:30 Zemplar - IVPUSH 08/04/16 16:31 ONCE ONE Polyethylene Glycol 17 gm 08/04/16 10:00 08/05/16 09:51 Miralax (For Daily Use) - PO Not Given DAILY [facility] Ranitidine HCl 150 mg 08/04/16 10:00 08/05/16 10:01 Zantac - PO Not Given DAILY [facility] Senna 2 tab 08/04/16 00:39 Senna - PO DAILY PRN CONSTIPATION Sevelamer Carbonate 1,600 mg 08/05/16 08:00 08/05/16 09:44 Renvela - PO Not Given TIDCM [facility] ASSESSMENT/PLAN: 50 yo F with PMHx of CVA, IDDM , and ESRD admitted mehdi telemetry for possible TIA and UTI. Problem List - Problems (1) Paresthesias in left hand Assessment/Plan: * Evaluated by Dr. Faye consult appreciated - He recommends:neuro f/u for eval and Rx of neuropathy and to look for possibly treatable complications such as ulnar neuropathy or carpal tunnel syndrome. * MRA shows multiple small lacunar infarcts continue TERESITA- ASA and Plavix daily * Continue Lipitor 80mg PO daiy * Carotid US shows significant stenosis- CTA done today results pending. * Consulted Dr. Ch (vascular surgery) will evaluated imaging for need of surgical intervention. (2) ESRD (end stage renal disease) Assessment/Plan: * Dr. Pritchard consulted * Dialysis today * Usual schedule is MWF. (3) Diabetes Assessment/Plan: * Stopped Pump * ADA diet * ISS ACHS * BGM ACHS (4) Hypertension Assessment/Plan: * Continue home meds * Carvedilol (Coreg -) 12.5 mg PO BID * Furosemide (Lasix -) 40 mg PO BID * Hydralazine HCl (Apresoline -) 25 mg PO BID T///Chance (5) UTI (urinary tract infection) Assessment/Plan: * Continue Ceftriaxone * Cultures Pending. Visit type - Emergency Visit Emergency Visit: Yes ED Registration Date: 08/04/16 Care time: The patient presented to the Emergency Department on the above date and was hospitalized for further evaluation of their emergent condition. - New Patient This patient is new to me today: No - Critical Care Critical Care patient: No
[2016-08-05] MEDS ORDERED: PARICALCITOL 5 MCG/ML VIAL IVPUSH ONE (12:30)
[2016-08-05 13:21] LABS: CALCIUM 8.7 mg/dL (8.5-10.1)
[2016-08-05 13:26] LABS: COCKROFT - GAULT 12.869
[2016-08-05 13:38] LABS: CREATININE 9.9 mg/dL (0.55-1.02)
--- NOTE | 2016-08-05 14:37 | PN ---
Progress Note, Physician History of Present Illness: Pt seen and examined at bedside. She is awake and alert. She is currently getting HD. - Current Medication List Current Medications: Active Medications Acetaminophen (Tylenol -) 650 mg PO Q4H PRN PRN Reason: FEVER OR PAIN Albuterol Sulfate (Ventolin Hfa Inhaler -) 2 puff IH Q4H PRN PRN Reason: ASTHMA Aspirin (Ecotrin -) 81 mg PO DAILY [facility] Last Admin: 08/05/16 09:59 Dose: Not Given Atorvastatin Calcium (Lipitor -) 80 mg PO HS [facility] Last Admin: 08/04/16 21:39 Dose: 80 mg Bacitracin (Bacitracin -) 1 applic TP BID [facility] Last Admin: 08/05/16 09:59 Dose: Not Given Bisacodyl (Dulcolax -) 10 mg PO BID PRN PRN Reason: CONSTIPATION Budesonide/Formoterol Fumarate (Symbicort 160/4.5mcg -) 1 puff IH BID [facility] Last Admin: 08/05/16 09:51 Dose: Not Given Carvedilol (Coreg -) 12.5 mg PO BID [facility] Last Admin: 08/05/16 09:59 Dose: Not Given Clonazepam (Klonopin -) 0.5 mg PO BID [facility] Last Admin: 08/05/16 10:01 Dose: Not Given Clopidogrel Bisulfate (Plavix -) 75 mg PO DAILY [facility] Last Admin: 08/05/16 10:01 Dose: Not Given Diphenhydramine HCl (Benadryl -) 50 mg PO DAILY PRN PRN Reason: FOR ITCHING Last Admin: 08/04/16 21:24 Dose: 50 mg Furosemide (Lasix -) 40 mg PO BID [facility] Last Admin: 08/05/16 10:01 Dose: Not Given Hydralazine HCl (Apresoline -) 50 mg PO BID [facility] Stop: 08/07/16 21:59 Last Admin: 08/05/16 09:59 Dose: Not Given Ceftriaxone Sodium (Rocephin 1gm Ivpb (Pre-Docked)) 50 mls @ 100 mls/hr IVPB DAILY [facility] Last Admin: 08/05/16 10:01 Dose: Not Given Insulin Aspart (Novolog Vial Sliding Scale -) 1 vial SQ ACHS [facility] PRN Reason: Protocol Last Admin: 08/05/16 11:50 Dose: Not Given Lidocaine/Prilocaine (Emla -) 1 applic TP DAILY [facility] Last Admin: 08/05/16 10:01 Dose: Not Given Metoclopramide HCl (Reglan -) 10 mg PO TID PRN PRN Reason: NAUSEA Multivit/Ca Carb/B Cmplx/FA/Prenat (Nephro-Robb -) 1 tablet PO DAILY [facility] Last Admin: 08/05/16 10:01 Dose: Not Given Brimonidine 0.2%/Timolol 0.5% ( Combigan) Eye Drops (Pt's Own) 2 each OU BID [facility] Last Admin: 08/05/16 10:01 Dose: Not Given Ondansetron HCl (Zofran -) 4 mg PO DAILY PRN PRN Reason: NAUSEA Polyethylene Glycol (Miralax (For Daily Use) -) 17 gm PO DAILY [facility] Last Admin: 08/05/16 09:51 Dose: Not Given Ranitidine HCl (Zantac -) 150 mg PO DAILY [facility] Last Admin: 08/05/16 10:01 Dose: Not Given Senna (Senna -) 2 tab PO DAILY PRN PRN Reason: CONSTIPATION Sevelamer Carbonate (Renvela -) 1,600 mg PO TIDCM [facility] Last Admin: 08/05/16 09:44 Dose: Not Given - Objective Vital Signs: Vital Signs Temperature 98.2 F 08/05/16 10:00 Pulse Rate 97 H 08/05/16 13:25 Respiratory Rate 18 08/05/16 13:25 Blood Pressure 106/56 08/05/16 13:25 O2 Sat by Pulse Oximetry (%) 96 08/05/16 09:00 Constitutional: Yes: Calm Eyes: Yes: Conjunctiva Clear HENT: Yes: Atraumatic Cardiovascular: Yes: S1, S2 Respiratory: Yes: CTA Bilaterally Gastrointestinal: Yes: Normal Bowel Sounds, Soft Genitourinary: Yes: WNL Extremities: Yes: Other (left arm weakness) Edema: No Neurological: Yes: Oriented, Weakness, Other (left arm weakness) Psychiatric: Yes: Oriented Labs: CBC, BMP 08/04/16 14:35 08/05/16 12:00 - ....Imaging Cat Scan: Report Reviewed Problem List - Problems (1) Diabetes Code(s): E11.9 - TYPE 2 DIABETES MELLITUS WITHOUT COMPLICATIONS Qualifiers: Diabetes mellitus type: type 2 Diabetes mellitus complication status: with kidney complications Diabetes mellitus complication detail: with chronic kidney disease Diabetes mellitus intermediate project manager insulin use: with assisted use Chronic kidney disease stage: on chronic dialysis Qualified Code(s): E11.22 - Type 2 diabetes mellitus with diabetic chronic kidney disease ; N18.1 - Chronic kidney disease, stage 1; Z79.4 - USP (current) use of insulin (2) ESRD (end stage renal disease) Code(s): N18.6 - END STAGE RENAL DISEASE (3) Hypertension Code(s): I10 - ESSENTIAL (PRIMARY) HYPERTENSION Qualifiers: Hypertension type: essential hypertension Qualified Code(s): I10 - Essential (primary) hypertension (4) Anemia Code(s): D64.9 - ANEMIA, UNSPECIFIED Assessment/Plan Current Medications Generic Name Dose Route Start Last Admin Trade Name Freq PRN Reason Stop Dose Admin Acetaminophen 650 mg 08/04/16 02:36 Tylenol - PO Q4H PRN FEVER OR PAIN Albuterol Sulfate 2 puff 08/04/16 00:39 Ventolin Hfa Inhaler - IH Q4H PRN ASTHMA Aspirin 81 mg 08/05/16 10:00 08/05/16 09:59 Ecotrin - PO Not Given DAILY MANDO Atorvastatin Calcium 80 mg 08/04/16 00:40 08/04/16 21:39 Lipitor - PO 80 mg HS MANDO Administration Bacitracin 1 applic 08/05/16 10:00 08/05/16 09:59 Bacitracin - TP Not Given BID MANDO Bisacodyl 10 mg 08/04/16 00:39 Dulcolax - PO BID PRN CONSTIPATION Budesonide/Formoterol Fumarate 1 puff 08/04/16 10:00 08/05/16 09:51 Symbicort 160/4.5mcg - IH Not Given BID MANDO Carvedilol 12.5 mg 08/04/16 10:00 08/05/16 09:59 Coreg - PO Not Given BID MANDO Clonazepam 0.5 mg 08/04/16 10:00 08/05/16 10:01 Klonopin - PO Not Given BID MANDO Clopidogrel Bisulfate 75 mg 08/04/16 17:45 08/05/16 10:01 Plavix - PO Not Given DAILY [facility] Diphenhydramine HCl 50 mg 08/04/16 05:56 08/04/16 21:24 Benadryl - PO 50 mg DAILY PRN Administration FOR ITCHING Furosemide 40 mg 08/04/16 10:00 08/05/16 10:01 Lasix - PO Not Given BID [facility] Hydralazine HCl 50 mg 08/04/16 22:00 08/05/16 09:59 Apresoline - PO 08/07/16 21:59 Not Given BID [facility] Ceftriaxone Sodium 50 mls @ 100 mls/hr 08/04/16 10:00 08/05/16 10:01 Rocephin 1gm Ivpb (Pre-Docked) IVPB Not Given DAILY [facility] Insulin Aspart 1 vial 08/04/16 17:30 08/05/16 11:50 Novolog Vial Sliding Scale - SQ Not Given ACHS [facility] Protocol Lidocaine/Prilocaine 1 applic 08/04/16 10:00 08/05/16 10:01 Emla - TP Not Given DAILY [facility] Metoclopramide HCl 10 mg 08/04/16 00:39 Reglan - PO TID PRN NAUSEA Multivit/Ca Carb/B Cmplx/FA/Prenat 1 tablet 08/05/16 10:00 08/05/16 10:01 Nephro-Robb - PO Not Given DAILY [facility] Brimonidine 0.2%/ 2 each 08/05/16 00:21 08/05/16 10:01 Timolol 0.5% ( OU Not Given Combigan) Eye Drops BID [facility] (Pt's Own) Ondansetron HCl 4 mg 08/04/16 00:39 Zofran - PO DAILY PRN NAUSEA Polyethylene Glycol 17 gm 08/04/16 10:00 08/05/16 09:51 Miralax (For Daily Use) - PO Not Given DAILY [facility] Ranitidine HCl 150 mg 08/04/16 10:00 08/05/16 10:01 Zantac - PO Not Given DAILY [facility] Senna 2 tab 08/04/16 00:39 Senna - PO DAILY PRN CONSTIPATION Sevelamer Carbonate 1,600 mg 08/05/16 08:00 08/05/16 09:44 Renvela - PO Not Given TIDCM [facility] Impression 1. ESRD 2. CVA vs TIA 3. DM 4. HLD 5. HTN 6. anemia 7. anxiety Plan - HD today - right internal carotid artery occlusion on CTA, vascular follow up - monitor blood pressure - resume home meds - will follow Dr Sharma
[2016-08-05] MEDS ORDERED: PT OWN MED DRAWER 7, Y5N ONE (16:07)
--- NOTE | 2016-08-05 17:45 | PN ---
Progress Note (short form) - Note Progress Note: Vascular Surgery CTA reviewed. Confirms right ICA occlusion. No need for surgery . Medical management. Local wound care to foot. Will follow in wound care/vascular clinic Nathan Ch DO
--- NOTE | 2016-08-05 19:27 | PN ---
Teaching Attending Note Name of Resident: Braydon Felipe ATTENDING PHYSICIAN STATEMENT I saw and evaluated the patient. I reviewed the resident's note and discussed the case with the resident. I agree with the resident's findings and plan as documented. SUBJECTIVE: Patient has no new complains. going for arterial doppler of LUE OBJECTIVE: Vital Signs Temperature 98.2 F 08/05/16 10:00 Pulse Rate 82 08/05/16 16:30 Respiratory Rate 18 08/05/16 16:30 Blood Pressure 121/59 08/05/16 16:30 O2 Sat by Pulse Oximetry (%) 96 08/05/16 09:00 CBCD WBC 7.8 K/mm3 (4.0-10.0) 08/04/16 14:35 RBC 3.36 M/mm3 (3.60-5.2) L 08/04/16 14:35 Hgb 11.5 GM/dL (10.7-15.3) 08/04/16 14:35 Hct 34.9 % (32.4-45.2) 08/04/16 14:35 MCV 104.0 fl (80-96) H 08/04/16 14:35 MCHC 32.8 g/dl (32.0-36.0) 08/04/16 14:35 RDW 14.0 % (11.6-15.6) 08/04/16 14:35 Plt Count 167 K/MM3 (134-434) 08/04/16 14:35 MPV 9.2 fl (7.5-11.1) 08/04/16 14:35 CMP Sodium 135 mmol/L (136-145) L 08/05/16 12:00 Potassium 4.2 mmol/L (3.5-5.1) 08/05/16 12:00 Chloride 99 mmol/L (98-107) 08/05/16 12:00 Carbon Dioxide 20 mmol/L (21-32) L 08/05/16 12:00 Anion Gap 16 (8-16) 08/05/16 12:00 BUN 20 mg/dL (7-18) H D 08/05/16 17:38 Creatinine 4.0 mg/dL (0.55-1.02) H D 08/05/16 17:38 Creat Clearance w eGFR 8.24 (>60) 08/03/16 16:24 Random Glucose 155 mg/dL (74-106) H D 08/05/16 12:00 Calcium 8.7 mg/dL (8.5-10.1) 08/05/16 12:00 Total Bilirubin 0.5 mg/dL (0.2-1.0) D 08/03/16 16:24 AST 19 U/L (15-37) D 08/03/16 16:24 ALT 26 U/L (12-78) 08/03/16 16:24 Alkaline Phosphatase 97 U/L (45-117) D 08/03/16 16:24 Total Protein 7.3 g/dl (6.4-8.2) 08/03/16 16:24 Albumin 3.6 g/dl (3.4-5.0) 08/03/16 16:24 CARDIAC ENZYMES Creatine Kinase 182 IU/L (26-192) 08/04/16 14:35 Troponin I < 0.02 ng/ml (0.00-0.05) 08/04/16 14:35 Current Medications Generic Name Dose Route Start Last Admin Trade Name Freq PRN Reason Stop Dose Admin Acetaminophen 650 mg 08/04/16 02:36 Tylenol - PO Q4H PRN FEVER OR PAIN Albuterol Sulfate 2 puff 08/04/16 00:39 Ventolin Hfa Inhaler - IH Q4H PRN ASTHMA Aspirin 81 mg 08/05/16 10:00 08/05/16 12:00 Ecotrin - PO 81 mg DAILY MANDO Administration Atorvastatin Calcium 80 mg 08/04/16 00:40 08/04/16 21:39 Lipitor - PO 80 mg HS MANDO Administration Bacitracin 1 applic 08/05/16 10:00 08/05/16 09:59 Bacitracin - TP Not Given BID MANDO Bisacodyl 10 mg 08/04/16 00:39 Dulcolax - PO BID PRN CONSTIPATION Budesonide/Formoterol Fumarate 1 puff 08/04/16 10:00 08/05/16 09:51 Symbicort 160/4.5mcg - IH Not Given BID MANDO Carvedilol 12.5 mg 08/04/16 10:00 08/05/16 09:59 Coreg - PO Not Given BID [facility] Clonazepam 0.5 mg 08/04/16 10:00 08/05/16 12:00 Klonopin - PO 0.5 mg BID MANDO Administration Clopidogrel Bisulfate 75 mg 08/04/16 17:45 08/05/16 12:00 Plavix - PO 75 mg DAILY MANDO Administration Diphenhydramine HCl 50 mg 08/04/16 05:56 08/04/16 21:24 Benadryl - PO 50 mg DAILY PRN Administration FOR ITCHING Furosemide 40 mg 08/04/16 10:00 08/05/16 10:01 Lasix - PO Not Given BID [facility] Hydralazine HCl 50 mg 08/04/16 22:00 08/05/16 12:00 Apresoline - PO 08/07/16 21:59 50 mg BID [facility] Administration Ceftriaxone Sodium 50 mls @ 100 mls/hr 08/04/16 10:00 08/05/16 10:01 Rocephin 1gm Ivpb (Pre-Docked) IVPB Not Given DAILY [facility] Insulin Aspart 1 vial 08/04/16 17:30 08/05/16 17:49 Novolog Vial Sliding Scale - SQ 8 units ACHS MANDO Administration Protocol Lidocaine/Prilocaine 1 applic 08/04/16 10:00 08/05/16 10:01 Emla - TP Not Given DAILY [facility] Metoclopramide HCl 10 mg 08/04/16 00:39 Reglan - PO TID PRN NAUSEA Multivit/Ca Carb/B Cmplx/FA/Prenat 1 tablet 08/05/16 10:00 08/05/16 12:00 Nephro-Robb - PO 1 tablet DAILY [facility] Administration Brimonidine 0.2%/ 2 each 08/05/16 00:21 08/05/16 10:01 Timolol 0.5% ( OU Not Given Combigan) Eye Drops BID [facility] (Pt's Own) Ondansetron HCl 4 mg 08/04/16 00:39 Zofran - PO DAILY PRN NAUSEA Polyethylene Glycol 17 gm 08/04/16 10:00 08/05/16 09:51 Miralax (For Daily Use) - PO Not Given DAILY [facility] Ranitidine HCl 150 mg 08/04/16 10:00 08/05/16 12:02 Zantac - PO 150 mg DAILY MANDO Administration Senna 2 tab 08/04/16 00:39 Senna - PO DAILY PRN CONSTIPATION Sevelamer Carbonate 1,600 mg 08/05/16 08:00 08/05/16 17:49 Renvela - PO 1,600 mg TIDCM MANDO Administration Home Medications Medication Instructions Recorded Acetaminophen [Tylenol -] 500 mg PO BID 08/03/16 Albuterol Sulfate Inhaler - 2 inh PO BID PRN 08/03/16 [Ventolin Hfa Inhaler -] Aspirin [Ecotrin] 325 mg PO DAILY 08/03/16 Atorvastatin Ca [Lipitor] 80 mg PO HS 08/03/16 Benzonatate 100 mg PO DAILY 08/03/16 Bisacodyl [Laxative] 10 mg PO BID PRN 08/03/16 Brimonidine Tartrate/Timolol 2 drop OU DAILY 08/03/16 [Combigan Eye Drops] Carvedilol [Coreg -] 12.5 mg PO BID 08/03/16 Clonazepam [Klonopin -] 0.5 mg PO BID 08/03/16 Diphenhydramine [Benadryl -] 50 mg PO DAILY 08/03/16 Famotidine [Pepcid -] 20 mg PO DAILY 08/03/16 Furosemide [Lasix] 40 mg PO BID 08/03/16 Insulin Aspart [Novolog] 100 unit SQ ACHS 08/03/16 Lidocaine/Prilocaine Cream [Emla -] 1 applic TP DAILY 08/03/16 Metoclopramide HCl [Reglan] 10 mg PO TID PRN 08/03/16 Mometasone/Formoterol [Dulera 100 2 inh IH BID 08/03/16 Mcg/5 Mcg Inhaler] Ondansetron [Zofran -] 4 mg PO DAILY PRN 08/03/16 Polyethylene Glycol 3350 [Miralax 17 gm PO DAILY 08/03/16 (For Daily Use) -] Propylene Glycol/Peg 400 [Systane 1 drop OP DAILY 08/03/16 Gel Eye Drops] Sennosides [Senna] 2 tab PO DAILY 08/03/16 Vit B Cmplx No3/FA/C/Biot/Zinc 1 each PO DAILY 08/03/16 [Nephplex Rx Tablet] NECK: No carotid bruit Extremeties: Coolness of LUE compared to right UE, power 4/5 of LUE. pulses are positive BL Gait is wide-based and shuffling. Carotid doppler: Status post stroke. Rule out carotid stenosis Bilateral carotid Doppler ultrasound Grayscale, pulsed Doppler and color Doppler interrogation of both carotid and both vertebral arteries was performed. Compared to prior examination dated The right common carotid, internal carotid and external external carotid artery were identified with a peak systolic velocity of 55 and 105 cm in the distal common carotid artery and external carotid artery, respectively. There is a moderate to large plaque in the proximal right internal carotid artery without evidence of flow The left common carotid, internal and external carotid artery were identified with a peak systolic velocity of 70, 58 and 83 cm/sec, respectively. Flow in the physiologic direction was documented in both vertebral arteries. Impression: Interval occluded right internal carotid artery. Correlation with CTA or MRA of the neck is recommended. Small plaques in the left common carotid bifurcation involving the bulb and proximal internal carotid artery without evidence of the significant. MRI of the brain without intravenous contrast A noncontrast MRI of the brain was performed with multiplanar T1 and T2-weighted images obtained. Compared to prior CT scan of the head dated 08/03/2016 and prior MRI of the brain dated 2015. There remains moderate atrophy and ventricular dilatation multiple T2 hyperintense foci are again seen in the periventricular and subcortical white matter, bilaterally consistent with moderately severe chronic microvascular ischemic changes. There is also focal encephalomalacia/old infarct in the right parietal lobe. There is a tiny focus of restricted diffusion in the left parietal lobe at the parietal occipital junction as well as multiple foci of restricted diffusion in the right frontal and parietal lobe, superiorly anterolisthesis extent in the left frontal/parietal high convexity consistent with acute/ subacute lacunar infarcts. No mass lesion or intracranial hemorrhage is seen. There is no shift of the midline structures. The craniocervical junction appears unremarkable. Flow voids are present within the central intracranial arteries circulation. No suspicious bone marrow abnormal signal is identified. Minimal mucosal thickening in the ethmoid air cells Impression Moderately severe periventricular chronic microvascular ischemic changes again seen. Interval multiple tiny acute/subacute lacunar infarcts in the right frontal and parietal high convexity, right more the left as well as an acute/subacute lacunar infarct at the left parietal occipital junction. ASSESSMENT AND PLAN: Pt is a 50 year old female with pmhx of ESRD, HTN, TIA, asthma, obesity, anemia , DM, left retinal detachment, and left eye blindness who presents to the ER complaining of left hand numbness and weakness x 4 days. #Acute/subacute Lacunar Infarcts in the right frontal and Parietal area on the right > as well as acute/subacute lacunar infarct at the left occipital junction. with mild Left Hemiparesis. Patient is on Lipitor 80mg , asa 81mg, Plavix 75mg continue. CTA of the neck : Impression: Interval occluded right internal carotid artery. and small plaques in the left common carotid bifurcation involving the bulb and proximal internal carotid artery without evidence of the significant. As per medical managment for now.No surgery required at this time. Neuro appreciated. # Right carotid occlusion. Patient is not a surgical candidate as per to manage the patient medically. Vascular appreciated. On Aspirin and antiplatelet #ESRD on HD post CTA # Left upper extremity coolness ; arterial doppler ordered r/o ischemia ; possible ulnar neuropathy or carpal tunnel syndrome. 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
[2016-08-05] MEDS: ATORVASTATIN CA 80 MG TABLET (FP) PO SCH (21:17)
[2016-08-06] MEDS: INSULIN SLIDING SCALE (NOVOLOG) 1 VIAL SQ SCH ×2 (06:42→11:53)
[2016-08-06 06:44] VITALS: TEMP 98
[2016-08-06] MEDS: SEVELAMER CARBONATE 800 MG TAB (FP) PO SCH ×2 (08:40→11:52)
--- NOTE | 2016-08-06 09:27 | PN ---
Physical Exam: SUBJECTIVE: Patient seen and examined OBJECTIVE: Vital Signs Temperature 98.0 F 08/06/16 06:00 Pulse Rate 81 08/06/16 06:00 Respiratory Rate 18 08/06/16 06:00 Blood Pressure 130/77 08/06/16 06:00 O2 Sat by Pulse Oximetry (%) 97 08/05/16 22:00 GENERAL: The patient is awake, alert, and fully oriented, in no acute distress. HEAD: Normal with no signs of trauma. EYES: PERRL, extraocular movements intact, sclera anicteric, conjunctiva clear. proptosis(+) ENT: Ears normal, nares patent, oropharynx clear without exudates, moist mucous membranes. NECK: Trachea midline, full range of motion, supple. No carotid bruit LUNGS: Breath sounds equal, clear to auscultation bilaterally, no wheezes, no crackles, no accessory muscle use. HEART: Regular rate and rhythm, S1, S2 without murmur, rub or gallop. ABDOMEN: Soft, nontender, nondistended, normoactive bowel sounds, no guarding, no rebound, no hepatosplenomegaly, no masses. EXTREMITIES: 2+ pulses, warm, well-perfused, no edema. Coolness of LUE compared to right UE, NEUROLOGICAL: Cranial nerves II through XII grossly intact. Normal speech, power 4/5 of LUE. Gait is wide-based and shuffling. PSYCH: Normal mood, normal affect. SKIN: Warm, dry, normal turgor, no rashes or lesions noted CBCD WBC 7.8 K/mm3 (4.0-10.0) 08/04/16 14:35 RBC 3.36 M/mm3 (3.60-5.2) L 08/04/16 14:35 Hgb 11.5 GM/dL (10.7-15.3) 08/04/16 14:35 Hct 34.9 % (32.4-45.2) 08/04/16 14:35 MCV 104.0 fl (80-96) H 08/04/16 14:35 MCHC 32.8 g/dl (32.0-36.0) 08/04/16 14:35 RDW 14.0 % (11.6-15.6) 08/04/16 14:35 Plt Count 167 K/MM3 (134-434) 08/04/16 14:35 MPV 9.2 fl (7.5-11.1) 08/04/16 14:35 CMP Sodium 135 mmol/L (136-145) L 08/05/16 12:00 Potassium 4.2 mmol/L (3.5-5.1) 08/05/16 12:00 Chloride 99 mmol/L (98-107) 08/05/16 12:00 Carbon Dioxide 20 mmol/L (21-32) L 08/05/16 12:00 Anion Gap 16 (8-16) 08/05/16 12:00 BUN 20 mg/dL (7-18) H D 08/05/16 17:38 Creatinine 4.0 mg/dL (0.55-1.02) H D 08/05/16 17:38 Creat Clearance w eGFR 8.24 (>60) 08/03/16 16:24 Random Glucose 155 mg/dL (74-106) H D 08/05/16 12:00 Calcium 8.7 mg/dL (8.5-10.1) 08/05/16 12:00 Total Bilirubin 0.5 mg/dL (0.2-1.0) D 08/03/16 16:24 AST 19 U/L (15-37) D 08/03/16 16:24 ALT 26 U/L (12-78) 08/03/16 16:24 Alkaline Phosphatase 97 U/L (45-117) D 08/03/16 16:24 Total Protein 7.3 g/dl (6.4-8.2) 08/03/16 16:24 Albumin 3.6 g/dl (3.4-5.0) 08/03/16 16:24 CARDIAC ENZYMES Creatine Kinase 182 IU/L (26-192) 08/04/16 14:35 Troponin I < 0.02 ng/ml (0.00-0.05) 08/04/16 14:35 Active Medications Generic Name Dose Route Start Last Admin Trade Name Freq PRN Reason Stop Dose Admin Acetaminophen 650 mg 08/04/16 02:36 Tylenol - PO Q4H PRN FEVER OR PAIN Albuterol Sulfate 2 puff 08/04/16 00:39 Ventolin Hfa Inhaler - IH Q4H PRN ASTHMA Aspirin 81 mg 08/05/16 10:00 05/12/17 12:00 Ecotrin - PO 81 mg DAILY MANDO Administration Atorvastatin Calcium 80 mg 08/04/16 00:40 08/05/16 21:17 Lipitor - PO 80 mg HS MANDO Administration Bacitracin 1 applic 08/05/16 10:00 08/05/16 21:18 Bacitracin - TP Not Given BID MANDO Bisacodyl 10 mg 08/04/16 00:39 Dulcolax - PO BID PRN CONSTIPATION Budesonide/Formoterol Fumarate 1 puff 08/04/16 10:00 08/05/16 21:24 Symbicort 160/4.5mcg - IH Not Given BID MANDO Carvedilol 12.5 mg 08/04/16 10:00 08/05/16 21:18 Coreg - PO 12.5 mg BID MANDO Administration Clonazepam 0.5 mg 08/04/16 10:00 08/05/16 21:17 Klonopin - PO 0.5 mg BID MANDO Administration Clopidogrel Bisulfate 75 mg 08/04/16 17:45 08/05/16 12:00 Plavix - PO 75 mg DAILY MANDO Administration Diphenhydramine HCl 50 mg 08/04/16 05:56 08/04/16 21:24 Benadryl - PO 50 mg DAILY PRN Administration FOR ITCHING Furosemide 40 mg 08/04/16 10:00 08/05/16 21:02 Lasix - PO Not Given BID MANDO Hydralazine HCl 50 mg 08/04/16 22:00 08/05/16 21:17 Apresoline - PO 08/07/16 21:59 50 mg BID MANDO Administration Ceftriaxone Sodium 50 mls @ 100 mls/hr 08/04/16 10:00 08/05/16 10:01 Rocephin 1gm Ivpb (Pre-Docked) IVPB Not Given DAILY [facility] Insulin Aspart 1 vial 08/04/16 17:30 08/06/16 06:42 Novolog Vial Sliding Scale - SQ 6 units ACHS MANDO Administration Protocol Lidocaine/Prilocaine 1 applic 08/04/16 10:00 08/05/16 10:01 Emla - TP Not Given DAILY MANDO Multivit/Ca Carb/B Cmplx/FA/Prenat 1 tablet 08/05/16 10:00 08/05/16 12:00 Nephro-Robb - PO 1 tablet DAILY MANDO Administration Brimonidine 0.2%/ 2 each 08/05/16 00:21 08/05/16 21:19 Timolol 0.5% ( OU 2 each Combigan) Eye Drops BID MANDO Administration (Pt's Own) Polyethylene Glycol 17 gm 08/04/16 10:00 08/05/16 09:51 Miralax (For Daily Use) - PO Not Given DAILY MANDO Ranitidine HCl 150 mg 08/04/16 10:00 08/05/16 12:02 Zantac - PO 150 mg DAILY MANDO Administration Senna 2 tab 08/04/16 00:39 Senna - PO DAILY PRN CONSTIPATION Sevelamer Carbonate 1,600 mg 08/05/16 08:00 08/05/16 17:49 Renvela - PO 1,600 mg TIDCM MANDO Administration Home Medications Medication Instructions Recorded Acetaminophen [Tylenol -] 500 mg PO BID 08/03/16 Albuterol Sulfate Inhaler - 2 inh PO BID PRN 08/03/16 [Ventolin Hfa Inhaler -] Aspirin [Ecotrin] 325 mg PO DAILY 08/03/16 Atorvastatin Ca [Lipitor] 80 mg PO HS 08/03/16 Benzonatate 100 mg PO DAILY 08/03/16 Bisacodyl [Laxative] 10 mg PO BID PRN 08/03/16 Brimonidine Tartrate/Timolol 2 drop OU DAILY 08/03/16 [Combigan Eye Drops] Carvedilol [Coreg -] 12.5 mg PO BID 08/03/16 Clonazepam [Klonopin -] 0.5 mg PO BID 08/03/16 Diphenhydramine [Benadryl -] 50 mg PO DAILY 08/03/16 Famotidine [Pepcid -] 20 mg PO DAILY 08/03/16 Furosemide [Lasix] 40 mg PO BID 08/03/16 Insulin Aspart [Novolog] 100 unit SQ ACHS 08/03/16 Lidocaine/Prilocaine Cream [Emla -] 1 applic TP DAILY 08/03/16 Metoclopramide HCl [Reglan] 10 mg PO TID PRN 08/03/16 Mometasone/Formoterol [Dulera 100 2 inh IH BID 08/03/16 Mcg/5 Mcg Inhaler] Ondansetron [Zofran -] 4 mg PO DAILY PRN 08/03/16 Polyethylene Glycol 3350 [Miralax 17 gm PO DAILY 08/03/16 (For Daily Use) -] Propylene Glycol/Peg 400 [Systane 1 drop OP DAILY 08/03/16 Gel Eye Drops] Sennosides [Senna] 2 tab PO DAILY 08/03/16 Vit B Cmplx No3/FA/C/Biot/Zinc 1 each PO DAILY 08/03/16 [Nephplex Rx Tablet] Carotid doppler: Status post stroke. Rule out carotid stenosis Bilateral carotid Doppler ultrasound Grayscale, pulsed Doppler and color Doppler interrogation of both carotid and both vertebral arteries was performed. Compared to prior examination dated 09/15/ The right common carotid, internal carotid and external external carotid artery were identified with a peak systolic velocity of 55 and 105 cm in the distal common carotid artery and external carotid artery, respectively. There is a moderate to large plaque in the proximal right internal carotid artery without evidence of flow The left common carotid, internal and external carotid artery were identified with a peak systolic velocity of 70, 58 and 83 cm/sec, respectively. Flow in the physiologic direction was documented in both vertebral arteries. Impression: Interval occluded right internal carotid artery. Correlation with CTA or MRA of the neck is recommended. Small plaques in the left common carotid bifurcation involving the bulb and proximal internal carotid artery without evidence of the significant. MRI of the brain without intravenous contrast A noncontrast MRI of the brain was performed with multiplanar T1 and T2-weighted images obtained. Compared to prior CT scan of the head dated 08/03/2016 and prior MRI of the brain dated 2015. There remains moderate atrophy and ventricular dilatation multiple T2 hyperintense foci are again seen in the periventricular and subcortical white matter, bilaterally consistent with moderately severe chronic microvascular ischemic changes. There is also focal encephalomalacia/old infarct in the right parietal lobe. There is a tiny focus of restricted diffusion in the left parietal lobe at the parietal occipital junction as well as multiple foci of restricted diffusion in the right frontal and parietal lobe, superiorly anterolisthesis extent in the left frontal/parietal high convexity consistent with acute/ subacute lacunar infarcts. No mass lesion or intracranial hemorrhage is seen. There is no shift of the midline structures. The craniocervical junction appears unremarkable. Flow voids are present within the central intracranial arteries circulation. No suspicious bone marrow abnormal signal is identified. Minimal mucosal thickening in the ethmoid air cells Impression Moderately severe periventricular chronic microvascular ischemic changes again seen. Interval multiple tiny acute/subacute lacunar infarcts in the right frontal and parietal high convexity, right more the left as well as an acute/subacute lacunar infarct at the left parietal occipital junction. ASSESSMENT/PLAN: Pt is a 50 year old female with pmhx of ESRD, HTN, TIA, asthma, obesity, anemia , DM, left retinal detachment, and left eye blindness who presents to the ER complaining of left hand numbness and weakness x 4 days. #Acute/subacute Lacunar Infarcts in the right frontal and Parietal area on the right > as well as acute/subacute lacunar infarct at the left occipital junction. with mild Left Hemiparesis. Patient is on Lipitor 80mg , asa 81mg, Plavix 75mg continue. CTA of the neck : Impression: Interval occluded right internal carotid artery. and small plaques in the left common carotid bifurcation involving the bulb and proximal internal carotid artery without evidence of the significant. As per medical managment for now.No surgery required at this time. Neuro appreciated. # Right carotid occlusion. Patient is not a surgical candidate as per to manage the patient medically. Vascular appreciated. On Aspirin and antiplatelet #ESRD on HD post CTA # Left upper extremity coolness ; arterial doppler ordered r/o ischemia ; possible ulnar neuropathy or carpal tunnel syndrome. 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
[2016-08-06] MEDS: ASPIRIN COATED 81 MG TABLET.EC PO SCH (10:01)
[2016-08-06] MEDS: hydrALAZINE HCL 50 MG TABLET (FP) PO SCH (10:01)
[2016-08-06] MEDS: FUROSEMIDE 40 MG TABLET (FP) PO SCH (10:01)
[2016-08-06] MEDS: VITAMIN B COMP W-C 1 EA TABLET PO SCH (10:01)
[2016-08-06] MEDS: RANITIDINE HCL 150 MG TABLET (FP) PO SCH (10:01)
[2016-08-06] MEDS: CLOPIDOGREL BISULFATE 75 MG TABLET (FP) PO SCH (10:01)
[2016-08-06] MEDS: CEFTRIAXONE 50 ML IVPB SCH (10:01)
[2016-08-06] MEDS: CARVEDILOL 12.5 MG TABLET (FP) PO SCH (10:01)
[2016-08-06] MEDS: clonazePAM 0.5 MG TABLET PO SCH (10:01)
[2016-08-06] MEDS: POLYETHYLENE GLYCOL 3350 119 GM BTL PO SCH (10:02)
[2016-08-06] MEDS: BUDESONIDE/FORMETEROL FUMARATE 160/4.5 mcg INHALER IH SCH (10:02)
[2016-08-06] MEDS: LIDOCAINE 2.5%/PRILOCAINE 2.5% (5 Gram/TUBE) TP SCH (10:02)
[2016-08-06] MEDS: BACITRACIN 15 GM TUBE TOPICAL OINTMENT TP SCH (10:02)
--- NOTE | 2016-08-06 10:29 | PN ---
Progress Note (short form) - Note Progress Note: s: no cp sob palps dizzy o: Vital Signs Period Temp Pulse Resp BP Sys/[place] Pulse Ox Last 24 Hr 98.0 F-98.5 F 78-97 18-20 97-174/54-102 97 nad no jvd rrr s1s2 no mrg cta bl nl eff aaox3 no le e/c/c abd nt nd pos bs no jaundice diaphoresis Current Medications Generic Name Dose Route Start Last Admin Trade Name Freq PRN Reason Stop Dose Admin Acetaminophen 650 mg 08/04/16 02:36 Tylenol - PO Q4H PRN FEVER OR PAIN Albuterol Sulfate 2 puff 08/04/16 00:39 Ventolin Hfa Inhaler - IH Q4H PRN ASTHMA Aspirin 81 mg 08/05/16 10:00 08/06/16 10:01 Ecotrin - PO 81 mg DAILY MANDO Administration Atorvastatin Calcium 80 mg 08/04/16 00:40 08/05/16 21:17 Lipitor - PO 80 mg HS MANDO Administration Bacitracin 1 applic 08/05/16 10:00 08/06/16 10:02 Bacitracin - TP 1 applic BID MANDO Administration Bisacodyl 10 mg 08/04/16 00:39 Dulcolax - PO BID PRN CONSTIPATION Budesonide/Formoterol Fumarate 1 puff 08/04/16 10:00 08/06/16 10:02 Symbicort 160/4.5mcg - IH Not Given BID MANDO Carvedilol 12.5 mg 08/04/16 10:00 08/06/16 10:01 Coreg - PO 12.5 mg BID MANDO Administration Clonazepam 0.5 mg 08/04/16 10:00 08/06/16 10:01 Klonopin - PO 0.5 mg BID MANDO Administration Clopidogrel Bisulfate 75 mg 08/04/16 17:45 08/06/16 10:01 Plavix - PO 75 mg DAILY MANDO Administration Diphenhydramine HCl 50 mg 08/04/16 05:56 08/04/16 21:24 Benadryl - PO 50 mg DAILY PRN Administration FOR ITCHING Furosemide 40 mg 08/04/16 10:00 08/06/16 10:01 Lasix - PO 40 mg BID MANDO Administration Hydralazine HCl 50 mg 08/04/16 22:00 08/06/16 10:01 Apresoline - PO 08/07/16 21:59 50 mg BID MANDO Administration Ceftriaxone Sodium 50 mls @ 100 mls/hr 08/04/16 10:00 08/06/16 10:01 Rocephin 1gm Ivpb (Pre-Docked) IVPB 100 mls/hr DAILY MANDO Administration Insulin Aspart 1 vial 08/04/16 17:30 08/06/16 06:42 Novolog Vial Sliding Scale - SQ 6 units ACHS MANDO Administration Protocol Lidocaine/Prilocaine 1 applic 08/04/16 10:00 08/06/16 10:02 Emla - TP Not Given DAILY MANDO Multivit/Ca Carb/B Cmplx/FA/Prenat 1 tablet 08/05/16 10:00 08/06/16 10:01 Nephro-Robb - PO 1 tablet DAILY MANDO Administration Brimonidine 0.2%/ 2 each 08/05/16 00:21 08/05/16 21:19 Timolol 0.5% ( OU 2 each Combigan) Eye Drops BID MANDO Administration (Pt's Own) Polyethylene Glycol 17 gm 08/04/16 10:00 08/06/16 10:02 Miralax (For Daily Use) - PO Not Given DAILY MANDO Ranitidine HCl 150 mg 08/04/16 10:00 08/06/16 10:01 Zantac - PO 150 mg DAILY MANDO Administration Senna 2 tab 08/04/16 00:39 Senna - PO DAILY PRN CONSTIPATION Sevelamer Carbonate 1,600 mg 08/05/16 08:00 08/06/16 08:40 Renvela - PO 1,600 mg TIDCM MANDO Administration CBC, BMP 08/04/16 14:35 08/05/16 17:38 echo 12/2015: nl lv/rv, no sig valve path echo 07/2016: nl lv/rv, no sig valve path cxr: clear lungs tele: pt refused tele ecg 08/03/16: sr, nl intervals, no ischemic changes a/p: 50 f hx htn, dm, hld, esrd on hd, cva, pvd here with left hand numbness/ weakness. acute cva: -neuro following -carotid US/cta neck showed occluded BHAVIN, vascular following, rec'd med rx -echo, tele benign here -during prior cva 08/2014 had fabio then showing no obvious cardiac etiology (only had moderate size nonmobile atheroma of aortic arch) htn: -cont bb hld: -cont statin esrd: -hd per renal
[2016-08-06 11:23] VITALS: BP 133/78; PULSE 83
--- NOTE | 2016-08-06 11:26 | PN ---
Progress Note, Physician History of Present Illness: Pt seen and examined at bedside. She is awake and alert. She still has the left arm weakness and numbness. She tolerated HD yesterday. - Current Medication List Current Medications: Active Medications Acetaminophen (Tylenol -) 650 mg PO Q4H PRN PRN Reason: FEVER OR PAIN Albuterol Sulfate (Ventolin Hfa Inhaler -) 2 puff IH Q4H PRN PRN Reason: ASTHMA Aspirin (Ecotrin -) 81 mg PO DAILY [facility] Last Admin: 08/06/16 10:01 Dose: 81 mg Atorvastatin Calcium (Lipitor -) 80 mg PO HS [facility] Last Admin: 08/05/16 21:17 Dose: 80 mg Bacitracin (Bacitracin -) 1 applic TP BID [facility] Last Admin: 08/06/16 10:02 Dose: 1 applic Bisacodyl (Dulcolax -) 10 mg PO BID PRN PRN Reason: CONSTIPATION Budesonide/Formoterol Fumarate (Symbicort 160/4.5mcg -) 1 puff IH BID [facility] Last Admin: 08/06/16 10:02 Dose: Not Given Carvedilol (Coreg -) 12.5 mg PO BID [facility] Last Admin: 08/06/16 10:01 Dose: 12.5 mg Clonazepam (Klonopin -) 0.5 mg PO BID [facility] Last Admin: 08/06/16 10:01 Dose: 0.5 mg Clopidogrel Bisulfate (Plavix -) 75 mg PO DAILY [facility] Last Admin: 08/06/16 10:01 Dose: 75 mg Diphenhydramine HCl (Benadryl -) 50 mg PO DAILY PRN PRN Reason: FOR ITCHING Last Admin: 08/04/16 21:24 Dose: 50 mg Furosemide (Lasix -) 40 mg PO BID [facility] Last Admin: 08/06/16 10:01 Dose: 40 mg Hydralazine HCl (Apresoline -) 50 mg PO BID [facility] Stop: 08/07/16 21:59 Last Admin: 08/06/16 10:01 Dose: 50 mg Ceftriaxone Sodium (Rocephin 1gm Ivpb (Pre-Docked)) 50 mls @ 100 mls/hr IVPB DAILY [facility] Last Admin: 08/06/16 10:01 Dose: 100 mls/hr Insulin Aspart (Novolog Vial Sliding Scale -) 1 vial SQ ACHS [facility] PRN Reason: Protocol Last Admin: 08/06/16 06:42 Dose: 6 units Lidocaine/Prilocaine (Emla -) 1 applic TP DAILY [facility] Last Admin: 08/06/16 10:02 Dose: Not Given Multivit/Ca Carb/B Cmplx/FA/Prenat (Nephro-Robb -) 1 tablet PO DAILY [facility] Last Admin: 08/06/16 10:01 Dose: 1 tablet Brimonidine 0.2%/Timolol 0.5% ( Combigan) Eye Drops (Pt's Own) 2 each OU BID [facility] Last Admin: 08/05/16 21:19 Dose: 2 each Polyethylene Glycol (Miralax (For Daily Use) -) 17 gm PO DAILY [facility] Last Admin: 08/06/16 10:02 Dose: Not Given Ranitidine HCl (Zantac -) 150 mg PO DAILY [facility] Last Admin: 08/06/16 10:01 Dose: 150 mg Senna (Senna -) 2 tab PO DAILY PRN PRN Reason: CONSTIPATION Sevelamer Carbonate (Renvela -) 1,600 mg PO TIDCM [facility] Last Admin: 08/06/16 08:40 Dose: 1,600 mg - Objective Vital Signs: Vital Signs Temperature 98.0 F 08/06/16 10:00 Pulse Rate 83 08/06/16 10:00 Respiratory Rate 18 08/06/16 10:00 Blood Pressure 133/78 08/06/16 10:00 O2 Sat by Pulse Oximetry (%) 97 08/06/16 09:00 Constitutional: Yes: Calm Eyes: Yes: Conjunctiva Clear HENT: Yes: Atraumatic Cardiovascular: Yes: S1, S2 Respiratory: Yes: CTA Bilaterally Gastrointestinal: Yes: Soft, Abdomen, Obese Genitourinary: Yes: WNL Extremities: Yes: Other (left hand and arm are weak) Edema: No Neurological: Yes: Oriented, Loss of Sensation Psychiatric: Yes: Oriented Labs: CBC, BMP 08/04/16 14:35 08/05/16 17:38 - ....Imaging Cat Scan: Report Reviewed Problem List - Problems (1) Diabetes Code(s): E11.9 - TYPE 2 DIABETES MELLITUS WITHOUT COMPLICATIONS Qualifiers: Diabetes mellitus type: type 2 Diabetes mellitus complication status: with kidney complications Diabetes mellitus complication detail: with chronic kidney disease Diabetes mellitus long term care administrator insulin use: with long term care administrator use Chronic kidney disease stage: on chronic dialysis Qualified Code(s): E11.22 - Type 2 diabetes mellitus with diabetic chronic kidney disease ; N18.1 - Chronic kidney disease, stage 1; Z79.4 - penitentiary (current) use of insulin (2) ESRD (end stage renal disease) Code(s): N18.6 - END STAGE RENAL DISEASE (3) Hypertension Code(s): I10 - ESSENTIAL (PRIMARY) HYPERTENSION Qualifiers: Hypertension type: essential hypertension Qualified Code(s): I10 - Essential (primary) hypertension (4) Anemia Code(s): D64.9 - ANEMIA, UNSPECIFIED Assessment/Plan Current Medications Generic Name Dose Route Start Last Admin Trade Name Freq PRN Reason Stop Dose Admin Acetaminophen 650 mg 08/04/16 02:36 Tylenol - PO Q4H PRN FEVER OR PAIN Albuterol Sulfate 2 puff 08/04/16 00:39 Ventolin Hfa Inhaler - IH Q4H PRN ASTHMA Aspirin 81 mg 08/05/16 10:00 08/06/16 10:01 Ecotrin - PO 81 mg DAILY [facility] Administration Atorvastatin Calcium 80 mg 08/04/16 00:40 08/05/16 21:17 Lipitor - PO 80 mg HS [facility] Administration Bacitracin 1 applic 08/05/16 10:00 08/06/16 10:02 Bacitracin - TP 1 applic BID [facility] Administration Bisacodyl 10 mg 08/04/16 00:39 Dulcolax - PO BID PRN CONSTIPATION Budesonide/Formoterol Fumarate 1 puff 08/04/16 10:00 08/06/16 10:02 Symbicort 160/4.5mcg - IH Not Given BID [facility] Carvedilol 12.5 mg 08/04/16 10:00 08/06/16 10:01 Coreg - PO 12.5 mg BID [facility] Administration Clonazepam 0.5 mg 08/04/16 10:00 08/06/16 10:01 Klonopin - PO 0.5 mg BID [facility] Administration Clopidogrel Bisulfate 75 mg 08/04/16 17:45 08/06/16 10:01 Plavix - PO 75 mg DAILY [facility] Administration Diphenhydramine HCl 50 mg 08/04/16 05:56 08/04/16 21:24 Benadryl - PO 50 mg DAILY PRN Administration FOR ITCHING Furosemide 40 mg 08/04/16 10:00 08/06/16 10:01 Lasix - PO 40 mg BID [facility] Administration Hydralazine HCl 50 mg 08/04/16 22:00 08/06/16 10:01 Apresoline - PO 08/07/16 21:59 50 mg BID [facility] Administration Ceftriaxone Sodium 50 mls @ 100 mls/hr 08/04/16 10:00 08/06/16 10:01 Rocephin 1gm Ivpb (Pre-Docked) IVPB 100 mls/hr DAILY [facility] Administration Insulin Aspart 1 vial 08/04/16 17:30 08/06/16 06:42 Novolog Vial Sliding Scale - SQ 6 units ACHS [facility] Administration Protocol Lidocaine/Prilocaine 1 applic 08/04/16 10:00 08/06/16 10:02 Emla - TP Not Given DAILY [facility] Multivit/Ca Carb/B Cmplx/FA/Prenat 1 tablet 08/05/16 10:00 08/06/16 10:01 Nephro-Robb - PO 1 tablet DAILY [facility] Administration Brimonidine 0.2%/ 2 each 08/05/16 00:21 08/05/16 21:19 Timolol 0.5% ( OU 2 each Combigan) Eye Drops BID [facility] Administration (Pt's Own) Polyethylene Glycol 17 gm 08/04/16 10:00 08/06/16 10:02 Miralax (For Daily Use) - PO Not Given DAILY [facility] Ranitidine HCl 150 mg 08/04/16 10:00 08/06/16 10:01 Zantac - PO 150 mg DAILY [facility] Administration Senna 2 tab 08/04/16 00:39 Senna - PO DAILY PRN CONSTIPATION Sevelamer Carbonate 1,600 mg 08/05/16 08:00 08/06/16 08:40 Renvela - PO 1,600 mg TIDCM [facility] Administration Impression 1. ESRD 2. CVA vs TIA 3. DM 4. HLD 5. HTN 6. anemia 7. anxiety Plan - pt tolerated HD yesterday - vascular input appreciated, CTA neg - follow up left arm arterial doppler - next HD on monday - HD: [facility] 2 k bath, 4 hrs, 116.5 kg, 1000 epogen, hectorol 4 mcg, venofer , [address] Sharma
[2016-08-06] MEDS ORDERED: INSULIN (NOVOLOG) ASPART 100 UNITS/ML 10ML VIAL ONE (11:51)
[2016-08-06] MEDS: BRIMONIDINE OU SCH (11:54)
[2016-08-06] MEDS: EYE OU SCH (11:54)
[2016-08-06] MEDS: TIMOLOL 0.5% OU SCH (11:54)
--- NOTE | 2016-08-06 14:40 | DS ---
Physical Exam: SUBJECTIVE: Patient seen and examined Comfortable with no acute distress OBJECTIVE: Vital Signs Temperature 98.0 F 08/06/16 10:00 Pulse Rate 83 08/06/16 10:00 Respiratory Rate 18 08/06/16 10:00 Blood Pressure 133/78 08/06/16 10:00 O2 Sat by Pulse Oximetry (%) 97 08/06/16 09:00 PHYSICAL EXAM GENERAL: The patient is awake, alert, and fully oriented, in no acute distress. HEAD: Normal with no signs of trauma. EYES: PERRL, extraocular movements intact, sclera anicteric, conjunctiva clear. proptosis(+) ENT: Ears normal, nares patent, oropharynx clear without exudates, moist mucous membranes. NECK: Trachea midline, full range of motion, supple. No carotid bruit LUNGS: Breath sounds equal, clear to auscultation bilaterally, no wheezes, no crackles, no accessory muscle use. HEART: Regular rate and rhythm, S1, S2 without murmur, rub or gallop. ABDOMEN: Soft, nontender, nondistended, normoactive bowel sounds, no guarding, no rebound, no hepatosplenomegaly, no masses. EXTREMITIES: 2+ pulses, warm, well-perfused, no edema. Coolness of LUE compared to right UE, NEUROLOGICAL: Cranial nerves II through XII grossly intact. Normal speech, power 4/5 of LUE. Gait is wide-based and shuffling. PSYCH: Normal mood, normal affect. SKIN: Warm, dry, normal turgor, no rashes or lesions noted LABS CBCD WBC 7.8 K/mm3 (4.0-10.0) 08/04/16 14:35 RBC 3.36 M/mm3 (3.60-5.2) L 08/04/16 14:35 Hgb 11.5 GM/dL (10.7-15.3) 08/04/16 14:35 Hct 34.9 % (32.4-45.2) 08/04/16 14:35 MCV 104.0 fl (80-96) H 08/04/16 14:35 MCHC 32.8 g/dl (32.0-36.0) 08/04/16 14:35 RDW 14.0 % (11.6-15.6) 08/04/16 14:35 Plt Count 167 K/MM3 (134-434) 08/04/16 14:35 MPV 9.2 fl (7.5-11.1) 08/04/16 14:35 CMP Sodium 135 mmol/L (136-145) L 08/05/16 12:00 Potassium 4.2 mmol/L (3.5-5.1) 08/05/16 12:00 Chloride 99 mmol/L (98-107) 08/05/16 12:00 Carbon Dioxide 20 mmol/L (21-32) L 08/05/16 12:00 Anion Gap 16 (8-16) 08/05/16 12:00 BUN 20 mg/dL (7-18) H D 08/05/16 17:38 Creatinine 4.0 mg/dL (0.55-1.02) H D 08/05/16 17:38 Creat Clearance w eGFR 8.24 (>60) 08/03/16 16:24 Random Glucose 155 mg/dL (74-106) H D 08/05/16 12:00 Calcium 8.7 mg/dL (8.5-10.1) 08/05/16 12:00 Total Bilirubin 0.5 mg/dL (0.2-1.0) D 08/03/16 16:24 AST 19 U/L (15-37) D 08/03/16 16:24 ALT 26 U/L (12-78) 08/03/16 16:24 Alkaline Phosphatase 97 U/L (45-117) D 08/03/16 16:24 Total Protein 7.3 g/dl (6.4-8.2) 08/03/16 16:24 Albumin 3.6 g/dl (3.4-5.0) 08/03/16 16:24 CARDIAC ENZYMES Creatine Kinase 182 IU/L (26-192) 08/04/16 14:35 Troponin I < 0.02 ng/ml (0.00-0.05) 08/04/16 14:35 Current Medications Generic Name Dose Route Start Last Admin Trade Name Freq PRN Reason Stop Dose Admin Acetaminophen 650 mg 08/04/16 02:36 Tylenol - PO Q4H PRN FEVER OR PAIN Albuterol Sulfate 2 puff 08/04/16 00:39 Ventolin Hfa Inhaler - IH Q4H PRN ASTHMA Aspirin 81 mg 08/05/16 10:00 08/06/16 10:01 Ecotrin - PO 81 mg DAILY [facility] Administration Atorvastatin Calcium 80 mg 08/04/16 00:40 08/05/16 21:17 Lipitor - PO 80 mg HS [facility] Administration Bacitracin 1 applic 08/05/16 10:00 08/06/16 10:02 Bacitracin - TP 1 applic BID [facility] Administration Bisacodyl 10 mg 08/04/16 00:39 Dulcolax - PO BID PRN CONSTIPATION Budesonide/Formoterol Fumarate 1 puff 08/04/16 10:00 08/06/16 10:02 Symbicort 160/4.5mcg - IH Not Given BID [facility] Carvedilol 12.5 mg 08/04/16 10:00 08/06/16 10:01 Coreg - PO 12.5 mg BID [facility] Administration Clonazepam 0.5 mg 08/04/16 10:00 08/06/16 10:01 Klonopin - PO 0.5 mg BID [facility] Administration Clopidogrel Bisulfate 75 mg 08/04/16 17:45 08/06/16 10:01 Plavix - PO 75 mg DAILY [facility] Administration Diphenhydramine HCl 50 mg 08/04/16 05:56 08/04/16 21:24 Benadryl - PO 50 mg DAILY PRN Administration FOR ITCHING Furosemide 40 mg 08/04/16 10:00 08/06/16 10:01 Lasix - PO 40 mg BID [facility] Administration Hydralazine HCl 50 mg 08/04/16 22:00 08/06/16 10:01 Apresoline - PO 08/07/16 21:59 50 mg BID [facility] Administration Ceftriaxone Sodium 50 mls @ 100 mls/hr 08/04/16 10:00 08/06/16 10:01 Rocephin 1gm Ivpb (Pre-Docked) IVPB 100 mls/hr DAILY [facility] Administration Insulin Aspart 1 vial 08/04/16 17:30 08/06/16 11:53 Novolog Vial Sliding Scale - SQ 8 units ACHS [facility] Administration Protocol Lidocaine/Prilocaine 1 applic 08/04/16 10:00 08/06/16 10:02 Emla - TP Not Given DAILY [facility] Multivit/Ca Carb/B Cmplx/FA/Prenat 1 tablet 08/05/16 10:00 08/06/16 10:01 Nephro-Robb - PO 1 tablet DAILY [facility] Administration Brimonidine 0.2%/ 2 each 08/05/16 00:21 08/06/16 11:54 Timolol 0.5% ( OU 2 each Combigan) Eye Drops BID [facility] Administration (Pt's Own) Paricalcitol 2 mcg 08/08/16 11:28 Zemplar - IVPUSH 08/08/16 11:29 ONCE ONE Polyethylene Glycol 17 gm 08/04/16 10:00 08/06/16 10:02 Miralax (For Daily Use) - PO Not Given DAILY [facility] Ranitidine HCl 150 mg 08/04/16 10:00 08/06/16 10:01 Zantac - PO 150 mg DAILY [facility] Administration Senna 2 tab 08/04/16 00:39 Senna - PO DAILY PRN CONSTIPATION Sevelamer Carbonate 1,600 mg 08/05/16 08:00 08/06/16 11:52 Renvela - PO 1,600 mg TIDCM [facility] Administration Home Medications Medication Instructions Recorded Acetaminophen [Tylenol -] 500 mg PO BID 08/03/16 Albuterol Sulfate Inhaler - 2 inh PO BID PRN 08/03/16 [Ventolin Hfa Inhaler -] Aspirin [Ecotrin] 325 mg PO DAILY 08/03/16 Atorvastatin Ca [Lipitor] 80 mg PO HS 08/03/16 Benzonatate 100 mg PO DAILY 08/03/16 Bisacodyl [Laxative] 10 mg PO BID PRN 08/03/16 Brimonidine Tartrate/Timolol 2 drop OU DAILY 08/03/16 [Combigan Eye Drops] Carvedilol [Coreg -] 12.5 mg PO BID 08/03/16 Clonazepam [Klonopin -] 0.5 mg PO BID 08/03/16 Diphenhydramine [Benadryl -] 50 mg PO DAILY 08/03/16 Famotidine [Pepcid -] 20 mg PO DAILY 08/03/16 Furosemide [Lasix] 40 mg PO BID 08/03/16 Insulin Aspart [Novolog] 100 unit SQ ACHS 08/03/16 Lidocaine/Prilocaine Cream [Emla -] 1 applic TP DAILY 08/03/16 Metoclopramide HCl [Reglan] 10 mg PO TID PRN 08/03/16 Mometasone/Formoterol [Dulera 100 2 inh IH BID 08/03/16 Mcg/5 Mcg Inhaler] Ondansetron [Zofran -] 4 mg PO DAILY PRN 08/03/16 Polyethylene Glycol 3350 [Miralax 17 gm PO DAILY 08/03/16 (For Daily Use) -] Propylene Glycol/Peg 400 [Systane 1 drop OP DAILY 08/03/16 Gel Eye Drops] Sennosides [Senna] 2 tab PO DAILY 08/03/16 Vit B Cmplx No3/FA/C/Biot/Zinc 1 each PO DAILY 08/03/16 [Nephplex Rx Tablet] Carotid doppler: Status post stroke. Rule out carotid stenosis Bilateral carotid Doppler ultrasound Grayscale, pulsed Doppler and color Doppler interrogation of both carotid and both vertebral arteries was performed. Compared to prior examination dated The right common carotid, internal carotid and external external carotid artery were identified with a peak systolic velocity of 55 and 105 cm in the distal common carotid artery and external carotid artery, respectively. There is a moderate to large plaque in the proximal right internal carotid artery without evidence of flow The left common carotid, internal and external carotid artery were identified with a peak systolic velocity of 70, 58 and 83 cm/sec, respectively. Flow in the physiologic direction was documented in both vertebral arteries. Impression: Interval occluded right internal carotid artery. Correlation with CTA or MRA of the neck is recommended. Small plaques in the left common carotid bifurcation involving the bulb and proximal internal carotid artery without evidence of the significant. MRI of the brain without intravenous contrast A noncontrast MRI of the brain was performed with multiplanar T1 and T2-weighted images obtained. Compared to prior CT scan of the head dated 08/03/2016 and prior MRI of the brain dated 2015. There remains moderate atrophy and ventricular dilatation multiple T2 hyperintense foci are again seen in the periventricular and subcortical white matter, bilaterally consistent with moderately severe chronic microvascular ischemic changes. There is also focal encephalomalacia/old infarct in the right parietal lobe. There is a tiny focus of restricted diffusion in the left parietal lobe at the parietal occipital junction as well as multiple foci of restricted diffusion in the right frontal and parietal lobe, superiorly anterolisthesis extent in the left frontal/parietal high convexity consistent with acute/ subacute lacunar infarcts. No mass lesion or intracranial hemorrhage is seen. There is no shift of the midline structures. The craniocervical junction appears unremarkable. Flow voids are present within the central intracranial arteries circulation. No suspicious bone marrow abnormal signal is identified. Minimal mucosal thickening in the ethmoid air cells Impression Moderately severe periventricular chronic microvascular ischemic changes again seen. Interval multiple tiny acute/subacute lacunar infarcts in the right frontal and parietal high convexity, right more the left as well as an acute/subacute lacunar infarct at the left parietal occipital junction. HOSPITAL COURSE: Date of Admission:08/04/16 Date of Discharge: 08/06/16 Pt is a 50 year old female with pmhx of ESRD, HTN, TIA, asthma, obesity, anemia , DM, left retinal detachment, and left eye blindness who presents to the ER complaining of left hand numbness and weakness x 4 days. #Acute/subacute Lacunar Infarcts in the right frontal and Parietal area on the right > as well as acute/subacute lacunar infarct at the left occipital junction. with mild Left Hemiparesis. Patient is on Lipitor 80mg , asa 81mg, Plavix 75mg continue. CTA of the neck : Impression: Interval occluded right internal carotid artery. and small plaques in the left common carotid bifurcation involving the bulb and proximal internal carotid artery without evidence of the significant. As per medical managment for now.No surgery required at this time. Neuro appreciated. # Right carotid occlusion. Patient is not a surgical candidate as per to manage the patient medically. Vascular appreciated. On Aspirin and antiplatelet #ESRD on HD post CTA # Left upper extremity coolness ; arterial doppler ordered r/o ischemia ; possible ulnar neuropathy or carpal tunnel syndrome. #Acute UTI On IV Rocephin received 3 days of IV antibiotic, Urine cx no growth, repeat w/u UA, urine culture in a week # DM with Severe diabetic peripheral neuropathy/ retinopathy PT/OT as an outpatient Arterial Duplx of left UE report is normal EMG as an outpatient, patient sees , seen by in the hospital can follow with him as an outpatient for possible EMG of LUE Minutes to complete discharge: 40 Discharge Summary Reason For Visit: PAIN OF HAND Current Active Problems Diabetes (Acute) ESRD (end stage renal disease) (Acute) Hypertension (Acute) Paresthesias in left hand (Acute) UTI (urinary tract infection) (Acute) Condition: Stable - Instructions Diet, Activity, Other Instructions: Low fat/low cholesterol diet/diabetic diet follow with PMD for prescription for OT/PT as an outpatient Follow with neurologist for EMG of LUE Continue to use your walker added Plavix 75mg ,take with aspirin 81mg enteric coated daily. continue Lipitor 80mg po daily continue with ur nl dialysis as scheduled Referrals: Simone Faye MD [Staff Physician] - 1 Week (follow with for possible needing EMG) Sebastián Parr MD [Primary Care Provider] - 1 Week (Needs PT/OT prescription for outpatient rehab.) Disposition: HOME - Home Medications Comprehensive Discharge Medication List: Ambulatory Orders Acetaminophen [Tylenol -] 500 mg PO BID 08/03/16 Albuterol Sulfate Inhaler - [Ventolin Hfa Inhaler -] 2 inh PO BID PRN 08/03/16 Aspirin [Ecotrin] 325 mg PO DAILY 08/03/16 Atorvastatin Ca [Lipitor] 80 mg PO HS 08/03/16 Benzonatate 100 mg PO DAILY 08/03/16 Bisacodyl [Laxative] 10 mg PO BID PRN 08/03/16 Brimonidine Tartrate/Timolol [Combigan Eye Drops] 2 drop OU DAILY 08/03/16 Carvedilol [Coreg -] 12.5 mg PO BID 08/03/16 Clonazepam [Klonopin -] 0.5 mg PO BID 08/03/16 Diphenhydramine [Benadryl -] 50 mg PO DAILY 08/03/16 Famotidine [Pepcid -] 20 mg PO DAILY 08/03/16 Furosemide [Lasix] 40 mg PO BID 08/03/16 Insulin Aspart [Novolog] 100 unit SQ ACHS 08/03/16 Lidocaine/Prilocaine Cream [Emla -] 1 applic TP DAILY 08/03/16 Metoclopramide HCl [Reglan] 10 mg PO TID PRN 08/03/16 Mometasone/Formoterol [Dulera 100 Mcg/5 Mcg Inhaler] 2 inh IH BID 08/03/16 Ondansetron [Zofran -] 4 mg PO DAILY PRN 08/03/16 Polyethylene Glycol 3350 [Miralax (For Daily Use) -] 17 gm PO DAILY 08/03/16 Propylene Glycol/Peg 400 [Systane Gel Eye Drops] 1 drop OP DAILY 08/03/16 Sennosides [Senna] 2 tab PO DAILY 08/03/16 Vit B Cmplx No3/FA/C/Biot/Zinc [Nephplex Rx Tablet] 1 each PO DAILY 08/03/16 This patient is new to me today: No Emergency Visit: Yes ED Registration Date: 08/04/16 Care time: The patient presented to the Emergency Department on the above date and was hospitalized for further evaluation of their emergent condition. Critical Care patient: No - Discharge Referral Referred to [facility] No
[2016-08-07 00:05] LABS: HEP B SURFACE AB Reactive (.)
[2016-08-08] MEDS ORDERED: PARICALCITOL 5 MCG/ML VIAL IVPUSH ONE (11:28)
== END 2016-08-06 17:12 | disposition home or self-care (01) | DRG 64 ==
LOC: JER 15:19 → JERBED 19:55 → J4S 08-04 01:53 → OBSVTOIN 08-04 07:42
PROVIDERS: ADMIT Internal Medicine; ATTEND Internal Medicine
PROC: 5A1D60Z (ICD-10-PCS; principal; 2016-08-04)
DX: I63.231 Cerebral infarction due to unspecified occlusion or stenosis of right carotid arteries (principal); N18.6 End stage renal disease; H33.22 Serous retinal detachment, left eye; I12.0 Hypertensive chronic kidney disease with stage 5 chronic kidney disease or end stage renal disease; Z68.41 Body mass index [BMI] 40.0-44.9, adult; G81.94 Hemiplegia, unspecified affecting left nondominant side; N39.0 Urinary tract infection, site not specified; J45.909 Unspecified asthma, uncomplicated; E11.319 Type 2 diabetes mellitus with unspecified diabetic retinopathy without macular edema; Z79.4 Long term (current) use of insulin; H54.42 Blindness, left eye, normal vision right eye; F41.9 Anxiety disorder, unspecified; E11.22 Type 2 diabetes mellitus with diabetic chronic kidney disease; Z99.2 Dependence on renal dialysis; E66.01 Morbid (severe) obesity due to excess calories; D53.9 Nutritional anemia, unspecified; H40.9 Unspecified glaucoma; K21.9 Gastro-esophageal reflux disease without esophagitis; G47.30 Sleep apnea, unspecified; I73.9 Peripheral vascular disease, unspecified; D63.1 Anemia in chronic kidney disease; E11.42 Type 2 diabetes mellitus with diabetic polyneuropathy; R20.9 Unspecified disturbances of skin sensation
CPT/HCPCS: 36415; 70450-TC; 70498-TC; 70551-TC; 71020-TC; 80048; 80053; 80061; 81003; 81015; 82550; 82553; 82565; 82607; 82746; 83036; 83721; 84439; 84443; 84481; 84484; 84520; 85025; 85027; 86704; 86706; 86708; 86803; 87070; 87086; 87186; 87205; 87340; 93005; 93010; 93306-TC; 93880-TC; 93931; 97116-GP; 97162-GP; 99285-25; G0378; G0463-25

== ENCOUNTER 2016-09-02 15:24 | Inpatient (IN) | payer OTHER ==
[2016-09-02 15:33] VITALS: BMI 41.5
--- NOTE | 2016-09-02 16:40 | PDOC ---
History of Present Illness <Bernadette Almonte - Last Filed: 09/02/16 18:39> - General History Source: Patient Exam Limitations: No Limitations - History of Present Illness Initial Comments: 09/02/16 16:54 The patient is a 50 year old female with past medical history of hypertension, transient ischemic attack, cranial atherosclerosis, anemia, asthma, IDDM, diabetic retinopathy, left eye retinal detachment with total blindness of left eye, ESRD ( on dialysis MWF), anxiety, and stroke who was sent to the ED via her inspector metal can for right an infected ulcer on her right foot. The patient states that she noticed the ulcer shrinking on , and her wound care nurse changed the dressing as well. However, this morning she noticed that the ulcer got bigger. The patient went to her inspector metal can who insisted that she go to the ER for IV antibiotics treatment. She complains of pain to her right foot but denies denies any other symptoms with the exception of left sided weakness secondary to a stroke she had three weeks ago. She denies any fevers, chills, nausea, vomiting, or diarrhea. She denies any chest pain or shortness of breath. She denies any urinary symptoms. PCP: Sebastián Gunter Heel Cementer: Quan Menendez <Akila Duenas - Last Filed: 09/02/16 21:32> - General Chief Complaint: Wound Infection Stated Complaint: ADMIT, FOOT PAIN (PCP SENT) Time Seen by Provider: 09/02/16 16:07 Past History - Past Medical History Anemia: No Asthma: Yes Cancer: No Cardiac Disorders: No CVA: Yes COPD: No CHF: No Dementia: No Diabetes: Yes Dialysis: Yes (M, W, F) GI Disorders: No Disorders: No HTN: Yes Hypercholesterolemia: Yes Liver Disease: No Psychiatric Problems: Yes (ANXIETY.) Suicide Attempt (Hx): No Seizures: No Thyroid Disease: No - Surgical History Abdominal Surgery: No Appendectomy: No Cardiac Surgery: (AV graft) Cholecystectomy: No Lung Surgery: No Neurologic Surgery: No Orthopedic Surgery: No - Immunization History Td Vaccination: No TDAP Vaccination: No Immunization Up to Date: Yes - Psycho/Social/Smoking Cessation Hx Anxiety: No Suicidal Ideation: No Smoking Status: No Smoking History: Never smoked Have you smoked in the past 12 months: No Number of Cigarettes Smoked Daily: 0 Information on smoking cessation initiated: No Hx Alcohol Use: No Drug/Substance Use Hx: No Substance Use Type: None Hx Substance Use Treatment: No <Bernadette Almonte - Last Filed: 09/02/16 18:39> <Akila Duenas - Last Filed: 09/02/16 21:32> - Past Medical History Allergies/Adverse Reactions: Allergies Allergy/AdvReac Type Severity Reaction Status Date / Time amoxicillin [Amoxicillin] Allergy Severe Itching Verified 09/02/16 15:33 hydrocodone bitartrate Allergy Severe Hives,ITCHI Verified 09/02/16 15:33 [From Vicodin] NG morphine Allergy Severe Itching Verified 09/02/16 15:33 neomycin [Neomycin] Allergy Severe Swelling Verified 09/02/16 15:33 oxycodone HCl [From Percocet] Allergy Severe Itching,HIV Verified 09/02/16 15:33 ES rofecoxib [From Vioxx] Allergy Severe Hives Verified 09/02/16 15:33 Sulfa (Sulfonamide Allergy Severe sclera Verified 09/02/16 15:33 Antibiotics) reddened,ITCHING tramadol Allergy Severe Vomiting Verified 09/02/16 15:33 grapefruit [Grapefruit] AdvReac Severe CAN'T TAKE Verified 09/02/16 15:33 BECAUSE OF MEDICATIONS vancomycin AdvReac Mild red man Verified 09/02/16 15:33 syndrome Heparin Analogues AdvReac Unknown Verified 09/02/16 15:33 [Heparin Agents] flu shot Allergy Severe GETS FLU Uncoded 09/02/16 15:33 SYMPTOMS grape juice AdvReac Severe Uncoded 09/02/16 15:33 Home Medications: Ambulatory Orders Albuterol Sulfate Inhaler - [Ventolin HFA Inhaler -] 2 inh PO BID PRN 08/03/16 Atorvastatin Ca [Lipitor] 80 mg PO HS 08/03/16 Benzonatate 100 mg PO DAILY 08/03/16 Bisacodyl [Laxative] 10 mg PO BID PRN 08/03/16 Brimonidine Tartrate/Timolol [Combigan 0.2%-0.5% Eye Drops] 2 drop OU DAILY 01/10 Carvedilol [Coreg -] 12.5 mg PO BID 08/03/16 Clonazepam [Klonopin -] 0.5 mg PO BID 08/03/16 Diphenhydramine [Benadryl Capsule -] 50 mg PO DAILY 08/03/16 Famotidine [Pepcid -] 20 mg PO DAILY 08/03/16 Furosemide [Lasix] 40 mg PO BID 08/03/16 Insulin Aspart [Novolog] 100 unit SQ ACHS 08/03/16 Lidocaine/Prilocaine Cream [Lidocaine-Prilocaine Cream -] 1 applic TP DAILY 01/10 Metoclopramide HCl [Reglan] 10 mg PO TID PRN 08/03/16 Mometasone/Formoterol [Dulera 100 Mcg/5 Mcg Inhaler] 2 inh IH BID 08/03/16 Ondansetron [Zofran -] 4 mg PO DAILY PRN 08/03/16 Polyethylene Glycol 3350 [Miralax 119 gm Btl -] 17 gm PO DAILY 08/03/16 Propylene Glycol/Peg 400 [Systane Gel Eye Drops] 1 drop OP DAILY 08/03/16 Sennosides [Senna] 2 tab PO DAILY 08/03/16 Vit B Cmplx No3/FA/C/Biot/Zinc [Nephplex Rx Tablet] 1 each PO DAILY 08/03/16 Aspirin Coated [Ecotrin -] 81 mg PO DAILY #30 tab 08/06/16 Bacitracin - [Bacitracin Topical Ointment -] 1 applic TP BID tube 08/06/16 Clopidogrel Bisulfate [Plavix -] 75 mg PO DAILY #30 tablet 08/06/16 Hydralazine HCl [Apresoline -] 50 mg PO BID tablet 08/06/16 Collagenase Clostridium Hist. [Santyl] 1 applic TP DAILY #90 oint...g. 08/12/16 Plavix 75 mg PO DAILY 08/26/16 Topamax 50 mg PO BID 08/26/16 Review of Systems - Review of Systems Able to Perform ROS?: Yes Comments:: 09/02/16 16:55 GENERAL/CONSTITUTIONAL: No fever or chills. No weakness. HEAD, EYES, EARS, NOSE AND THROAT: No change in vision. No ear pain or discharge. No sore throat. CARDIOVASCULAR: No chest pain or shortness of breath. RESPIRATORY: No cough, wheezing, or hemoptysis. GASTROINTESTINAL: No nausea, vomiting, diarrhea or constipation. GENITOURINARY: No dysuria, frequency, or change in urination. MUSCULOSKELETAL: No joint or muscle swelling or pain. No neck or back pain. SKIN: No rash NEUROLOGIC: Present: left sided weakness secondary to stroke three weeks ago No headache, vertigo, loss of consciousness. ENDOCRINE: No increased thirst. No abnormal weight change. HEMATOLOGIC/LYMPHATIC: No anemia, easy bleeding, or history of blood clots. ALLERGIC/IMMUNOLOGIC: No hives or skin allergy. EXTREMITY: Present: Right foot ulcer, right foot pain All Other Systems: Reviewed and Negative <Akila Duenas - Last Filed: 09/02/16 21:32> *Physical Exam - Vital Signs Last Vital Signs Temp Pulse Resp BP Pulse Ox 98.3 F 99 H 18 120/69 100 09/02/16 15:30 09/02/16 15:30 09/02/16 15:30 09/02/16 15:30 09/02/16 15:30 <Bernadette Almonte - Last Filed: 09/02/16 18:39> - Vital Signs Last Vital Signs Temp Pulse Resp BP Pulse Ox 98.3 F 99 H 18 120/69 100 09/02/16 15:30 09/02/16 15:30 09/02/16 15:30 09/02/16 15:30 09/02/16 15:30 - Physical Exam Comments: 09/02/16 16:57 GENERAL: Awake, alert, and fully oriented, in no acute distress HEAD: No signs of trauma EYES: PERRLA, EOMI, sclera anicteric, conjunctiva clear ENT: Auricles normal inspection, hearing grossly normal, nares patent, oropharynx clear without exudates. Moist mucosa NECK: Normal ROM, supple, no lymphadenopathy, JVD, or masses LUNGS: Breath sounds equal, clear to auscultation bilaterally. No wheezes, and no crackles HEART: Regular rate and rhythm, normal S1 and S2, no murmurs, rubs or gallops ABDOMEN: Soft, nontender, normoactive bowel sounds. No guarding, no rebound. No masses EXTREMITIES: At the base of right great toe, 1.5 cm ulcer with surrounding tenderness, erythema. No purulent discharge. There is mild swelling of dorsum to the area of 1st and 3rd toe. 2nd toe amputation that is well healed. Normal range of motion. No clubbing or cyanosis. NEUROLOGICAL: Left sided weakness of arm and leg, unchanged since stroke. Normal speech, normal gait SKIN: Warm, Dry, normal turgor, no rashes or lesions noted. <Akila Duenas - Last Filed: 09/02/16 21:32> ED Treatment Course - LABORATORY CBC & Chemistry Diagram: 09/02/16 16:50 09/02/16 16:50 - RADIOLOGY Radiology Studies Ordered: Category Date Time Status FOOT-RIGHT [RAD] Stat Radiology 09/02/16 16:29 Ordered <Bernadette Almonte - Last Filed: 09/02/16 18:39> - LABORATORY CBC & Chemistry Diagram: 09/02/16 16:50 09/02/16 17:50 - RADIOLOGY Radiograph Interpretation: 09/02/16 21:28 Right foot X-ray as reviewed by Dr. Viera reports interval moderate osteoarthritic changes involving the metatarsalphalangeal joint. Soft tissue swelling around the first toe as well as the base of the third toe. There is also soft tissue swelling dorsally. <Akila Duenas - Last Filed: 09/02/16 21:32> Medical Decision Making - Medical Decision Making 09/02/16 17:04 Phone call placed to patient's PCP. Awaiting call back. 09/02/16 17:37 Second page placed. Awaiting call back. 09/02/16 17:57 Microblog sent to hospitalist. Awaiting call back. 09/02/16 18:50 Phone call returned by hospitalist. Awaiting call back. <Akila Duenas - Last Filed: 09/02/16 21:32> *DC/Admit/Observation/Transfer - Discharge Dispostion Admit: Yes Decision to Admit order Date/Time: 09/02/16 18:40 <Bernadette Almonte - Last Filed: 09/02/16 18:39> - Attestations Scribe Attestion: 09/02/16 17:01 Documentation prepared by Akila Duenas, acting as medical scientist for Bernadette Almonte MD. <Akila Duenas - Last Filed: 09/02/16 21:32> Diagnosis at time of Disposition: Cellulitis and abscess of foot - Referrals
[2016-09-02 17:15] LABS: BASOPHIL 0.5 % (0-2.0); MCH 33.7 pg (25.7-33.7); MCHC 32.7 g/dl (32.0-36.0); MEAN PLT VOLUME 9.3 fl (7.5-11.1); NEUTROPHILS 72.4 % (42.8-82.8); PLATELET COUNT 185 K/MM3 (134-434); RDW 13.9 % (11.6-15.6); WHITE BLOOD COUNT 9.2 K/mm3 (4.0-10.0)
[2016-09-02] MEDS ORDERED: diphenhydrAMINE HCL 25 MG CAPSULE (FP) PO ONE ×2 (18:16→18:19)
[2016-09-02 18:19] LABS: ERYTHROCYTE SEDIMENTATION RATE 68 mm/hr (0-20)
[2016-09-02 18:42] LABS: ALBUMIN 3.8 g/dl (3.4-5.0); BILIRUBIN,TOTAL 0.4 mg/dL (0.2-1.0); COCKROFT - GAULT 21.25; CREATININE 5.7 mg/dL (0.55-1.02); TOT PROT 7.8 g/dl (6.4-8.2)
[2016-09-02] MEDS ORDERED: ACETAMINOPHEN 325 MG TABLET (FP) PO PRN (19:10)
--- NOTE | 2016-09-02 19:10 | PN ---
<Eda Fuller - Last Filed: 09/02/16 19:09> Teaching Attending Note Name of Resident: Yamila Chinchilla <Jacqueline Alexis - Last Filed: 09/02/16 22:53> Teaching Attending Note ATTENDING PHYSICIAN STATEMENT I saw and evaluated the patient. I reviewed the resident's note and discussed the case with the resident. I agree with the resident's findings and plan as documented. SUBJECTIVE: 50 year old female with complaint of worsening right foot plantar ulcer. Patient reports increased pain to the area with swelling. Patient saw her deposition reporter on and was seen by her PMD today who prompted her to present to the ED for further evaluation and IV abx. Patient denies fever or chills. PMH: recent CVA (08/10), IDDM, diabetic retinopathy, ESRD on HD ([facility]), hypertension, transient ischemic attack, cranial atherosclerosis, anemia, asthma , left eye blindness s/p retinal detachment PSH: left and right toe amputations FMH: non contributory SH: denies smoking, drinking, drug use OBJECTIVE: Physical: VS: Last Vital Signs Temp Pulse Resp BP Pulse Ox 98.3 F 92 H 16 115/75 99 09/02/16 15:30 09/02/16 17:45 09/02/16 17:45 09/02/16 17:45 09/02/16 17:45 GENERAL: Awake, alert, and fully oriented, in no acute distress HEENT: Atraumatic. PERRLA, EOMI. Moist mucosa. No JVD LUNGS: No distress, speaks full sentences, clear to auscultation bilaterally HEART: Regular rate and rhythm, normal S1 and S2, no murmurs, rubs or gallops, peripheral pulses normal and equal bilaterally. ABDOMEN: Soft, nontender, normoactive bowel sounds. No guarding, no rebound. No masses EXTREMITIES: Normal inspection, Normal range of motion, no edema. No clubbing or cyanosis. NEUROLOGICAL: (+)3/5 strength on LUE, 5/5 strength on RUE. Cranial nerves II through XII grossly intact. Normal speech, no focal sensorimotor deficits SKIN: (+)Right foot 2nd toe amputation, left foot 4th toe amputation, 1.5 cm diameter plantar ulcer. Warm, Dry, normal turgor, no rashes noted. Labs: CBCD WBC 9.2 K/mm3 (4.0-10.0) 09/02/16 16:50 RBC 3.28 M/mm3 (3.60-5.2) L 09/02/16 16:50 Hgb 11.0 GM/dL (10.7-15.3) 09/02/16 16:50 Hct 33.7 % (32.4-45.2) 09/02/16 16:50 MCV 103.0 fl (80-96) H 09/02/16 16:50 MCHC 32.7 g/dl (32.0-36.0) 09/02/16 16:50 RDW 13.9 % (11.6-15.6) 09/02/16 16:50 Plt Count 185 K/MM3 (134-434) 09/02/16 16:50 MPV 9.3 fl (7.5-11.1) 09/02/16 16:50 CMP Sodium 138 mmol/L (136-145) 09/02/16 17:50 Potassium 3.9 mmol/L (3.5-5.1) 09/02/16 17:50 Chloride 99 mmol/L (98-107) 09/02/16 17:50 Carbon Dioxide 29 mmol/L (21-32) D 09/02/16 17:50 Anion Gap 10 (8-16) 09/02/16 17:50 BUN 21 mg/dL (7-18) H 09/02/16 17:50 Creatinine 5.7 mg/dL (0.55-1.02) H D 09/02/16 17:50 Creat Clearance w eGFR 7.91 (>60) 09/02/16 17:50 Calcium 9.0 mg/dL (8.5-10.1) 09/02/16 17:50 Total Bilirubin 0.4 mg/dL (0.2-1.0) 09/02/16 17:50 AST 21 U/L (15-37) 09/02/16 17:50 ALT 21 U/L (12-78) 09/02/16 17:50 Alkaline Phosphatase 82 U/L (45-117) 09/02/16 17:50 Total Protein 7.8 g/dl (6.4-8.2) 09/02/16 17:50 Albumin 3.8 g/dl (3.4-5.0) 09/02/16 17:50 IMAGING: Right foot XRAY Impression: interval moderate osteoarthritic changes involving the metatarsalphalangeal joint. Soft tissue swelling around the first toe as well as the base of the third toe. There is also soft tissue swelling dorsally. ASSESSMENT AND PLAN: Diabetic right foot plantar ulcer of the first metatarsal at the base r/o osteomyelitis - CRP in AM - MRI in AM - Vanco not given due to allergy - Linezolid given instead, follow blood culture and sensitivity to adjust abx as need - ID consult in AM - Podiatry consult in AM - DVT ppx - Continue care as documented in HPI Documentation prepared by Jacqueline Alexis, acting as medical microbiologist for Eda Fuller M.D.
[2016-09-02] MEDS ORDERED: METOCLOPRAMIDE HCL 10 MG TABLET (FP) PO PRN (19:56)
[2016-09-02] MEDS ORDERED: ALBUTEROL SO4 6.7 GM HFA INHALER IH PRN (19:56)
[2016-09-02] MEDS ORDERED: ONDANSETRON 4 MG TABLET PO PRN (19:56)
[2016-09-02] MEDS ORDERED: LINEZOLID 600 MG PREMIX BAG 600 MG in PREMIX 300 IV ONE (20:27)
--- NOTE | 2016-09-02 20:42 | HP ---
CHIEF COMPLAINT: right foot ulcer PCP: Dr. Gunter HISTORY OF PRESENT ILLNESS: This is a 50 year old female with a significant past medical history of CVA, IDDM, diabetic retinopathy, ESRD on HD (MWF), hx of left foot/LE MSSA osteomyelitis s/p left toe amputation, with complaints of worsening right plantar foot ulcer. Patient states she thinks her wound care nurse wrapped foot to tight on Monday. When she went to dialysis today, she says her foot was swollen. After finishing dialysis patient came to the ER for IV antibiotics and further workup as per her materials handling coordinator. Patient denies fever, chills, erythema. She does admit to increased pain and swelling of affected area. ER course. No white count, no fever. Elevated ESR. Foot xrays and blood cultures ordered. Patient is allergic to vancomycin (redness, swelling rxn), linezolid was given. Multiple drug allergies. Recent Travel: no PAST MEDICAL HISTORY: hypertension, transient ischemic attack, cranial atherosclerosis, anemia, asthma, recent CVA (08/10), left eye blindness s/p retinal detachment PAST SURGICAL HISTORY: s/o left and right toe amputations Social History: Smoking:no Alcohol:no Drugs: no Family History: Allergies amoxicillin [Amoxicillin] Allergy (Severe, Verified 09/02/16 15:33) Itching hydrocodone bitartrate [From Vicodin] Allergy (Severe, Verified 09/02/16 15:33) Hives,ITCHING morphine Allergy (Severe, Verified 09/02/16 15:33) Itching neomycin [Neomycin] Allergy (Severe, Verified 09/02/16 15:33) Swelling oxycodone HCl [From Percocet] Allergy (Severe, Verified 09/02/16 15:33) Itching,HIVES rofecoxib [From Vioxx] Allergy (Severe, Verified 09/02/16 15:33) Hives Sulfa (Sulfonamide Antibiotics) Allergy (Severe, Verified 09/02/16 15:33) sclera reddened,ITCHING tramadol Allergy (Severe, Verified 09/02/16 15:33) Vomiting grapefruit [Grapefruit] Adverse Reaction (Severe, Verified 09/02/16 15:33) CAN'T TAKE BECAUSE OF MEDICATIONS vancomycin Adverse Reaction (Mild, Verified 09/02/16 15:33) red man syndrome Heparin Analogues [Heparin Agents] Adverse Reaction (Unknown, Verified 09/02/16 15:33) OF 09/14/14, PT IS ABLE TO TAKE WITH MONITORING OF SYMPTOMS flu shot Allergy (Severe, Uncoded 09/02/16 15:33) GETS FLU SYMPTOMS grape juice Adverse Reaction (Severe, Uncoded 09/02/16 15:33) HOME MEDICATIONS: Home Medications Medication Instructions Recorded Albuterol Sulfate Inhaler - 2 inh PO BID PRN 08/03/16 [Ventolin HFA Inhaler -] Atorvastatin Ca [Lipitor] 80 mg PO HS 08/03/16 Benzonatate 100 mg PO DAILY 08/03/16 Bisacodyl [Laxative] 10 mg PO BID PRN 08/03/16 Brimonidine Tartrate/Timolol 2 drop OU DAILY 08/03/16 [Combigan 0.2%-0.5% Eye Drops] Carvedilol [Coreg -] 12.5 mg PO BID 08/03/16 Clonazepam [Klonopin -] 0.5 mg PO BID 08/03/16 Diphenhydramine [Benadryl Capsule 50 mg PO DAILY 08/03/16 -] Famotidine [Pepcid -] 20 mg PO DAILY 08/03/16 Furosemide [Lasix] 40 mg PO BID 08/03/16 Insulin Aspart [Novolog] 100 unit SQ ACHS 08/03/16 Lidocaine/Prilocaine Cream 1 applic TP DAILY 08/03/16 [Lidocaine-Prilocaine Cream -] Metoclopramide HCl [Reglan] 10 mg PO TID PRN 08/03/16 Mometasone/Formoterol [Dulera 100 2 inh IH BID 08/03/16 Mcg/5 Mcg Inhaler] Ondansetron [Zofran -] 4 mg PO DAILY PRN 08/03/16 Polyethylene Glycol 3350 [Miralax 17 gm PO DAILY 08/03/16 119 gm Btl -] Propylene Glycol/Peg 400 [Systane 1 drop OP DAILY 08/03/16 Gel Eye Drops] Sennosides [Senna] 2 tab PO DAILY 08/03/16 Vit B Cmplx No3/FA/C/Biot/Zinc 1 each PO DAILY 08/03/16 [Nephplex Rx Tablet] Aspirin Coated [Ecotrin -] 81 mg PO DAILY #30 tab 08/06/16 Bacitracin - [Bacitracin Topical 1 applic TP BID tube 08/06/16 Ointment -] Clopidogrel Bisulfate [Plavix -] 75 mg PO DAILY #30 tablet 08/06/16 Hydralazine HCl [Apresoline -] 50 mg PO BID tablet 08/06/16 Collagenase Clostridium Hist. 1 applic TP DAILY #90 oint...g. 08/12/16 [Santyl] Plavix 75 mg PO DAILY 08/26/16 Topamax 50 mg PO BID 08/26/16 REVIEW OF SYSTEMS CONSTITUTIONAL: Absent: fever, chills, diaphoresis, generalized weakness, malaise, loss of appetite, weight change HEENT: Absent: rhinorrhea, nasal congestion, throat pain, throat swelling, difficulty swallowing, mouth swelling, ear pain, eye pain, visual changes CARDIOVASCULAR: Absent: chest pain, syncope, palpitations, irregular heart rate, lightheadedness , peripheral edema RESPIRATORY: Absent: cough, shortness of breath, dyspnea with exertion, orthopnea, wheezing, stridor, hemoptysis GASTROINTESTINAL: Absent: abdominal pain, abdominal distension, nausea, vomiting, diarrhea, constipation, melena, hematochezia GENITOURINARY: Absent: dysuria, frequency, urgency, hesitancy, hematuria, flank pain, genital pain MUSCULOSKELETAL: Absent: myalgia, arthralgia, joint swelling, back pain, neck pain SKIN: Positivel right foot ulcer Absent: rash, itching, pallor HEMATOLOGIC/IMMUNOLOGIC: Absent: easy bleeding, easy bruising, lymphadenopathy, frequent infections ENDOCRINE: Absent: unexplained weight gain, unexplained weight loss, heat intolerance, cold intolerance NEUROLOGIC: Absent: headache, focal weakness or paresthesias, dizziness, unsteady gait, seizure, mental status changes, bladder or bowel incontinence PSYCHIATRIC: Absent: anxiety, depression, suicidal or homicidal ideation, hallucinations. PHYSICAL EXAMINATION Vital Signs - 24 hr 09/02/16 09/02/16 15:30 17:45 Temperature 98.3 F Pulse Rate 99 H Pulse Rate [ 92 H Apical] Respiratory 18 16 Rate Blood Pressure 120/69 Blood Pressure 115/75 [Left] O2 Sat by Pulse 100 99 Oximetry (%) GENERAL: Obese, Awake, alert, and fully oriented, in no acute distress. HEAD: Normal with no signs of trauma. LUNGS: decreased breath sounds equal, clear to auscultation bilaterally. No wheezes, and no crackles. No accessory muscle use. HEART: Regular rate and rhythm, normal S1 and S2 without murmur, rub or gallop. ABDOMEN: obese Soft, nontender, not distended, normoactive bowel sounds, no guarding, no rebound, no masses. No hepatomegaly or splenomegaly. MUSCULOSKELETAL: Normal range of motion at all joints. No bony deformities or tenderness. No CVA tenderness. UPPER EXTREMITIES: 2+ pulses, warm, well-perfused. No cyanosis. No clubbing. No peripheral edema. LOWER EXTREMITIES: 2+ pulses, warm, well-perfused. No calf tenderness. No peripheral edema. Right foot plantar ulcer behind great toe 2x2cm, no pus, no drainage, edges soft, dose not probe to bone , on the doral aspect of the foot there is swelling and very lacid skin SKIN: Warm, dry, normal turgor, no rashes or lesions noted, normal capillary refill. Laboratory Results - last 24 hr 09/02/16 09/02/16 09/02/16 16:50 16:50 17:50 WBC 9.2 RBC 3.28 L Hgb 11.0 Hct 33.7 MCV 103.0 H MCHC 32.7 RDW 13.9 Plt Count 185 MPV 9.3 Neutrophils % 72.4 Lymphocytes % 17.8 D Monocytes % 6.3 Eosinophils % 3.0 Basophils % 0.5 ESR 68 H Sodium Cancelled 138 Potassium Cancelled 3.9 Chloride Cancelled 99 Carbon Dioxide Cancelled 29 D Anion Gap Cancelled 10 BUN Cancelled 21 H Creatinine Cancelled 5.7 H D Creat Clearance w eGFR Cancelled 7.91 POC Glucometer Random Glucose Cancelled 113 H D Calcium Cancelled 9.0 Total Bilirubin Cancelled 0.4 AST Cancelled 21 ALT Cancelled 21 Alkaline Phosphatase Cancelled 82 C-Reactive Protein Cancelled Total Protein Cancelled 7.8 Albumin Cancelled 3.8 09/02/16 19:05 WBC RBC Hgb Hct MCV MCHC RDW Plt Count MPV Neutrophils % Lymphocytes % Monocytes % Eosinophils % Basophils % ESR Sodium Potassium Chloride Carbon Dioxide Anion Gap BUN Creatinine Creat Clearance w eGFR POC Glucometer [phone] Random Glucose Calcium Total Bilirubin AST ALT Alkaline Phosphatase C-Reactive Protein Total Protein Albumin Right Foot XRAY Interval moderate osteoarthritic changes involving the first metatarsophalangeal joint. There is soft tissue swelling around the first toe as well as around the base of the third toe. There is also soft tissue swelling , dorsally. No soft tissue air is identified. Correlate clinically and further evaluation with MRI of the right foot would be the study of choice to rule out osteomyelitis. ASSESSMENT/PLAN: This is a 50 year old male with a past medical history of cva (08/10), IDDM, ESRD (MWF), history of MSSA+ osteomylitis of left foot, presents with worsenign right foot ulcer. Admitted for IV antibiotics, rule out osteomyelitis. #diabetic foot ulcer; rule out osteomyelitis: -no leukocytosis, afebrile -will start IV antibiotics: linezolid due to hx of MSSA; and patient allergic to vancomycin -wound culture not attainable, nothing to collect -past wound culture of right foot positive for stenotrophomon X Maltophila; ent fecalis; staph aureus -blood culture pending -ESR elevated -crp pending -3 view R foot xrays; results above; +soft tissue swelling -f/u MRI -betadine dressing -no weight bearing on right foot -Podiatry consulted -ID consulted #ESRD: MWF -BUN/Cr 21/5.7 -nephrology consulted for dialysis #IDDM: -insulin SS; BGM -hemoglobin A1C #HTN: -cont carvedilol 12.5po bid -lasix 40mg po daily HLD: -atorvastatin 80mg po HS qd #Hx of CVA with residual left sided arm weakness -cont 81mg ASA po qd -plavix 75mg po daily #asthma: -albuterol inhaler 2 puff bid prn -symbicort 2puff bid #diabetic retinopathy: -cont home med eye drops' brimoonidine tartrate/timolol 2 drops OU daily -I spoke to patient regarding heparin; she states that she sees her glove stitcher q 2months and she is cleared to have heparin. No current bleeding behind eyes, as per patient. FEN: Fluids:N/A; po Electrolytes: no Diet:npo VTE prophylaxis: one time heparin for now; patient stated that her materials handling coordinator mentioned a bone biopsy in the am; therefor we will give one time heparin; reeval status after materials handling coordinator consulted. Disposition: IV antibiotics/ MRI pending; podiatry consulted Problem List - Problem (1) Diabetes Code(s): E11.9 - TYPE 2 DIABETES MELLITUS WITHOUT COMPLICATIONS Qualifiers: Diabetes mellitus type: type 2 Diabetes mellitus complication status: with kidney complications Diabetes mellitus complication detail: with chronic kidney disease Diabetes mellitus long term care administrator insulin use: with long term care administrator use Chronic kidney disease stage: on chronic dialysis Qualified Code(s): E11.22 - Type 2 diabetes mellitus with diabetic chronic kidney disease ; N18.1 - Chronic kidney disease, stage 1; Z79.4 - continuous churn buttermaker (current) use of insulin (2) ESRD (end stage renal disease) Code(s): N18.6 - END STAGE RENAL DISEASE (3) Hypertension Code(s): I10 - ESSENTIAL (PRIMARY) HYPERTENSION Qualifiers: Hypertension type: essential hypertension Qualified Code(s): I10 - Essential (primary) hypertension (4) Paresthesias in left hand Code(s): R20.2 - PARESTHESIA OF SKIN (5) Allergy to multiple antibiotics Code(s): Z88.1 - ALLERGY STATUS TO OTHER ANTIBIOTIC AGENTS STATUS (6) Hyperlipemia Code(s): E78.5 - HYPERLIPIDEMIA, UNSPECIFIED Qualifiers: Hyperlipidemia type: unspecified Qualified Code(s): E78.5 - Hyperlipidemia, unspecified (7) Ulcer of right foot due to type 2 diabetes mellitus Code(s): E11.621 - TYPE 2 DIABETES MELLITUS WITH FOOT ULCER L97.519 - NON-PRS CHRONIC ULCER OTH PRT RIGHT FOOT W UNSP SEVERITY (8) ESRD (end stage renal disease) on dialysis Code(s): N18.6 - END STAGE RENAL DISEASE Z99.2 - DEPENDENCE ON RENAL DIALYSIS
[2016-09-02] MEDS ORDERED: HEPARIN NA (PORCINE) 5,000 UNITS/ML 1ML VIAL SQ ONE (21:48)
[2016-09-02] MEDS ORDERED: HEPARIN NA (PORCINE) 5,000 UNITS/ML 1ML VIAL SQ SCH (22:00)
[2016-09-02] MEDS ORDERED: SENNOSIDES/DOCUSATE COMBO (SENNA PLUS) TABLET (UD) PO PRN (22:12)
[2016-09-02] MEDS ORDERED: CARVEDILOL 12.5 MG TABLET (FP) ONE (22:52)
[2016-09-02] MEDS ORDERED: RANITIDINE HCL 150 MG TABLET (FP) ONE (22:52)
[2016-09-02] MEDS ORDERED: clonazePAM 0.5 MG TABLET ONE (22:52)
[2016-09-02] MEDS ORDERED: ATORVASTATIN CA 80 MG TABLET (FP) ONE (22:53)
[2016-09-02] MEDS ORDERED: hydrALAZINE HCL 25 MG TABLET (FP) ONE (22:53)
[2016-09-02] MEDS ORDERED: HEPARIN NA (PORCINE) 5,000 UNITS/ML 1ML VIAL ONE (22:54)
[2016-09-02] MEDS ORDERED: TOPIRAMATE 25 MG TABLET (FP) ONE (22:54)
[2016-09-02] MEDS: hydrALAZINE HCL 50 MG TABLET (FP) PO SCH (23:06)
[2016-09-02] MEDS: CARVEDILOL 12.5 MG TABLET (FP) PO SCH (23:06)
[2016-09-02] MEDS: clonazePAM 0.5 MG TABLET PO SCH (23:06)
[2016-09-02] MEDS: TOPIRAMATE 25 MG TABLET (FP) PO SCH (23:06)
[2016-09-02] MEDS: RANITIDINE HCL 150 MG TABLET (FP) PO SCH (23:06)
[2016-09-02] MEDS: ATORVASTATIN CA 80 MG TABLET (FP) PO SCH (23:06)
[2016-09-02] MEDS: INSULIN SLIDING SCALE (NOVOLOG) 1 VIAL SQ SCH (23:12)
[2016-09-02] MEDS ORDERED: INSULIN (NOVOLOG) ASPART 100 UNITS/ML 10ML VIAL ONE (23:14)
[2016-09-03] MEDS: BUDESONIDE/FORMETEROL FUMARATE 80/4.5 mcg INHALER IH SCH ×3 (03:14→22:31)
[2016-09-03] MEDS ORDERED: INSULIN (NOVOLOG) ASPART 100 UNITS/ML 10ML VIAL ONE ×3 (06:06→19:02)
[2016-09-03] MEDS: INSULIN SLIDING SCALE (NOVOLOG) 1 VIAL SQ SCH ×2 (06:40→17:59)
[2016-09-03] MEDS: FUROSEMIDE 40 MG TABLET (FP) PO SCH ×2 (06:46→17:30)
[2016-09-03 08:45] LABS: MCH 33.9 pg (25.7-33.7); MCHC 32.6 g/dl (32.0-36.0); MEAN CELL VOLUME 104.1 fl (80-96); MEAN PLT VOLUME 8.8 fl (7.5-11.1); PLATELET COUNT 161 K/MM3 (134-434); RDW 13.5 % (11.6-15.6); WHITE BLOOD COUNT 7.8 K/mm3 (4.0-10.0)
[2016-09-03 09:16] LABS: CALCIUM 9.3 mg/dL (8.5-10.1); COCKROFT - GAULT 16.15; CREATININE 7.4 mg/dL (0.55-1.02)
[2016-09-03] MEDS ORDERED: LIDOCAINE 2.5%/PRILOCAINE 2.5% (5 Gram/TUBE) TP SCH (10:00)
[2016-09-03] MEDS ORDERED: POLYETHYLENE GLYCOL 3350 119 GM BTL PO SCH (10:00)
[2016-09-03] MEDS ORDERED: PATIENT'S OWN MEDICATION (NON-FORMULARY) (Brimonidine Tartrate/Timolol [Combigan 0.2%-0.5% OU SCH (10:00)
[2016-09-03] MEDS ORDERED: ASPIRIN COATED 81 MG TABLET.EC PO SCH (10:00)
[2016-09-03] MEDS: SEVELAMER CARBONATE 800 MG TAB (FP) PO SCH ×4 (11:15→17:35)
[2016-09-03] MEDS: RANITIDINE HCL 150 MG TABLET (FP) PO SCH (11:17)
[2016-09-03] MEDS: CARVEDILOL 12.5 MG TABLET (FP) PO SCH ×2 (11:18→22:30)
[2016-09-03] MEDS: hydrALAZINE HCL 50 MG TABLET (FP) PO SCH ×2 (11:18→22:30)
[2016-09-03] MEDS: CLOPIDOGREL BISULFATE 75 MG TABLET (FP) PO SCH ×3 (11:19→17:36)
[2016-09-03] MEDS: clonazePAM 0.5 MG TABLET PO SCH ×2 (11:19→22:30)
[2016-09-03] MEDS: TOPIRAMATE 25 MG TABLET (FP) PO SCH ×2 (11:20→22:30)
[2016-09-03 12:15] LABS: C-REACTIVE PROTEIN 0.5 MG/DL (0.00-0.3)
--- NOTE | 2016-09-03 13:12 | PN ---
Physical Exam: SUBJECTIVE: Patient seen and examined Patient is c/o having left arm heaviness/weakness that is getting worse. OBJECTIVE: Vital Signs Temperature 98.5 F 09/03/16 06:00 Pulse Rate 84 09/03/16 06:00 Respiratory Rate 17 09/03/16 06:00 Blood Pressure 128/78 09/03/16 06:00 O2 Sat by Pulse Oximetry (%) 99 09/02/16 17:45 GENERAL: The patient is awake, alert, and fully oriented, in no acute distress. HEAD: Normal with no signs of trauma. EYES: PERRL, extraocular movements intact, sclera anicteric, conjunctiva clear. POsitive for exopthalmos ENT: Ears normal, oropharynx clear without exudates, moist mucous membranes. NECK: Trachea midline, full range of motion, supple. LUNGS: Breath sounds equal, clear to auscultation bilaterally, no wheezes, no crackles, no accessory muscle use. HEART: Regular rate and rhythm, S1, S2 without murmur, rub or gallop. ABDOMEN: Soft, nontender, nondistended, normoactive bowel sounds, no guarding, no rebound, no hepatosplenomegaly, no masses. EXTREMITIES: 2+ pulses, warm, well-perfused, Right foot plantar ulcer behind great toe 2x2cm, no pus, no drainage. NEUROLOGICAL: Cranial nerves II through XII grossly intact. Normal speech, uses wheelchair PSYCH: Normal mood, normal affect. SKIN: Warm, dry, normal turgor, CBCD WBC 7.8 K/mm3 (4.0-10.0) 09/03/16 08:10 RBC 2.93 M/mm3 (3.60-5.2) L 09/03/16 08:10 Hgb 10.0 GM/dL (10.7-15.3) L 09/03/16 08:10 Hct 30.5 % (32.4-45.2) L 09/03/16 08:10 MCV 104.1 fl (80-96) H 09/03/16 08:10 MCHC 32.6 g/dl (32.0-36.0) 09/03/16 08:10 RDW 13.5 % (11.6-15.6) 09/03/16 08:10 Plt Count 161 K/MM3 (134-434) 09/03/16 08:10 MPV 8.8 fl (7.5-11.1) 09/03/16 08:10 CMP Sodium 134 mmol/L (136-145) L 09/03/16 08:10 Potassium 4.0 mmol/L (3.5-5.1) 09/03/16 08:10 Chloride 95 mmol/L (98-107) L 09/03/16 08:10 Carbon Dioxide 26 mmol/L (21-32) 09/03/16 08:10 Anion Gap 13 (8-16) 09/03/16 08:10 BUN 31 mg/dL (7-18) H D 09/03/16 08:10 Creatinine 7.4 mg/dL (0.55-1.02) H D 09/03/16 08:10 Creat Clearance w eGFR 7.91 (>60) 09/02/16 17:50 Random Glucose 202 mg/dL (74-106) H D 09/03/16 08:10 Calcium 9.3 mg/dL (8.5-10.1) 09/03/16 08:10 Total Bilirubin 0.4 mg/dL (0.2-1.0) 09/02/16 17:50 AST 21 U/L (15-37) 09/02/16 17:50 ALT 21 U/L (12-78) 09/02/16 17:50 Alkaline Phosphatase 82 U/L (45-117) 09/02/16 17:50 Total Protein 7.8 g/dl (6.4-8.2) 09/02/16 17:50 Albumin 3.8 g/dl (3.4-5.0) 09/02/16 17:50 Active Medications Generic Name Dose Route Start Last Admin Trade Name Freq PRN Reason Stop Dose Admin Acetaminophen 650 mg 09/02/16 19:10 Tylenol - PO Q4H PRN FEVER OR PAIN Albuterol Sulfate 2 puff 09/02/16 19:56 Ventolin Hfa Inhaler - IH Q12H PRN ASTHMA Aspirin 81 mg 09/03/16 10:00 09/03/16 11:19 Ecotrin - PO Not Given DAILY MANDO Atorvastatin Calcium 80 mg 09/02/16 22:00 09/02/16 23:06 Lipitor - PO 80 mg HS MANDO Administration Budesonide/Formoterol Fumarate 2 puff 06/09/17 22:00 09/03/16 11:20 Symbicort 80/4.5mcg - IH 2 puff BID MANDO Administration Carvedilol 12.5 mg 09/02/16 22:00 09/03/16 11:18 Coreg - PO 12.5 mg BID MANDO Administration Clonazepam 0.5 mg 09/02/16 22:00 09/03/16 11:19 Klonopin - PO 0.5 mg BID MANDO Administration Clopidogrel Bisulfate 75 mg 09/03/16 10:00 09/03/16 11:19 Plavix - PO Not Given DAILY MANDO Furosemide 40 mg 09/03/16 06:00 09/03/16 06:46 Lasix - PO Not Given BIDLASIX [facility] Hydralazine HCl 50 mg 09/02/16 22:00 09/03/16 11:18 Apresoline - PO 50 mg BID MANDO Administration Insulin Aspart 1 vial 09/02/16 22:00 09/03/16 06:40 Novolog Vial Sliding Scale - SQ Not Given ACHS [facility] Protocol Lidocaine/Prilocaine 1 applic 09/03/16 10:00 09/03/16 11:21 Emla - TP Not Given DAILY [facility] Non-Formulary Medication 2 drop 09/03/16 10:00 Brimonidine Tartrate/Timolol [Combigan 0.2%-0.5% Eye Drops] OU DAILY [facility] Ondansetron HCl 4 mg 09/02/16 19:56 09/03/16 06:44 Zofran - PO 4 mg DAILY PRN Administration NAUSEA Polyethylene Glycol 17 gm 09/03/16 10:00 09/03/16 11:20 Miralax (For Daily Use) - PO Not Given DAILY [facility] Ranitidine HCl 150 mg 09/02/16 22:15 09/03/16 11:17 Zantac - PO 150 mg DAILY MANDO Administration Senna/Docusate Sodium 2 tablet 09/02/16 22:12 Pericolace - PO HS PRN CONSTIPATION Sevelamer Carbonate 800 mg 09/03/16 08:00 09/03/16 11:17 Renvela - PO 800 mg TIDCM MANDO Administration Topiramate 50 mg 09/02/16 22:00 09/03/16 11:20 Topamax - PO 50 mg BID MANDO Administration Home Medications Medication Instructions Recorded Albuterol Sulfate Inhaler - 2 inh PO BID PRN 08/03/16 [Ventolin HFA Inhaler -] Atorvastatin Ca [Lipitor] 80 mg PO HS 08/03/16 Benzonatate 100 mg PO TID PRN 08/03/16 Bisacodyl [Laxative] 10 mg PO BID PRN 08/03/16 Brimonidine Tartrate/Timolol 2 drop OU DAILY 08/03/16 [Combigan 0.2%-0.5% Eye Drops] Carvedilol [Coreg -] 12.5 mg PO BID 08/03/16 Clonazepam [Klonopin -] 0.5 mg PO BID 08/03/16 Diphenhydramine [Benadryl Capsule 50 mg PO PRN PRN 08/03/16 -] Famotidine [Pepcid -] 20 mg PO DAILY 08/03/16 Furosemide [Lasix] 40 mg PO BID 08/03/16 Insulin Aspart [Novolog] 100 unit SQ ACHS 08/03/16 Lidocaine/Prilocaine Cream 1 applic TP PRN PRN 08/03/16 [Lidocaine-Prilocaine Cream -] Metoclopramide HCl [Reglan] 10 mg PO TID PRN 08/03/16 Mometasone/Formoterol [Dulera 100 2 inh IH BID PRN 08/03/16 Mcg/5 Mcg Inhaler] Ondansetron [Zofran -] 4 mg PO DAILY PRN 08/03/16 Sennosides [Senna] 2 tab PO DAILY 08/03/16 Aspirin Coated [Ecotrin -] 81 mg PO DAILY #30 tab 08/06/16 Hydralazine HCl [Apresoline -] 50 mg PO BID tablet 08/06/16 Clopidogrel Bisulfate [Plavix -] 75 mg PO DAILY 08/26/16 Right Foot XRAY Interval moderate osteoarthritic changes involving the first metatarsophalangeal joint. There is soft tissue swelling around the first toe as well as around the base of the third toe. There is also soft tissue swelling , dorsally. No soft tissue air is identified. Correlate clinically and further evaluation with MRI of the right foot would be the study of choice to rule out osteomyelitis. ASSESSMENT/PLAN: This is a 50 year old female with a past medical history of cva (08/10), IDDM, ESRD ([facility]), history of MSSA+ osteomylitis of left foot, presents with worsening right foot ulcer. Admitted for IV antibiotics, rule out osteomyelitis. #Acute diabetic of right foot ulcer ; going for MRI for Osteomeyelitis r/o as per patient was treated for 6 weeks of IV antibiotic for her left foot. no leukocytosis, afebrile, given one dose of linezolid due to hx of MSSA; and patient allergic to vancomycin. Past wound culture of right foot positive for stenotrophomon X Maltophila; ent fecalis; staph aureus ,blood culture pending , ESR elevated, crp pending, f/u MRI, betadine dressing , no weight bearing on right foot, Podiatry & ID consulted #Hx of CVA with residual left sided arm weakness, cont 81mg ASA po qd & plavix 75mg po daily. #ESRD: MWF nephrology consulted for dialysis #IDDM:insulin SS; BGM, hemoglobin A1C #HTN: cont carvedilol 12.5po bid, lasix 40mg po daily #HLD: atorvastatin 80mg po HS qd #asthma: on albuterol inhaler 2 puff bid prn, symbicort 2 puff bid #diabetic retinopathy: cont home med eye drops' brimoonidine tartrate/timolol 2 drops OU daily VTE prophylaxis: one time heparin given due to patient going to a bone biopsy in the am; In the past patient had a retinal bleed and was not able to use heparin. As per patient , can use heparin now as per patient Visit type - Emergency Visit Emergency Visit: Yes ED Registration Date: 09/02/16 Care time: The patient presented to the Emergency Department on the above date and was hospitalized for further evaluation of their emergent condition. - New Patient This patient is new to me today: Yes Date on this admission: 09/03/16 - Critical Care Critical Care patient: No
--- NOTE | 2016-09-03 13:36 | PN ---
Progress Note (short form) - Note Progress Note: ID consult dictated asked to see this 50 year old female with diabetes, esrd/hd, history of MRSA bacteremia and osteo of the first toe right foot in December 2015 she is followed by Dr Richardson who has asked me to see the patient in f/u. SHe apparently completed a 6 week course of vancomycin followed by a prolonged course of doxycycline until May 2016 the ulcer healed, it has now recurred and is worsening she reports she was asked to come to the hospital after RODNEY yesterday by her PMD Dr Parr she is admitted by podiatry for bone biopsy she has refused prior debridement and amputation in December d/w Dr Richardson who is her regular ID doctor will repeat MRI of the foot today for bone biopsy per podiatry in am most likely has chronic osteomyelitis of the toe would hold antibiotics for now- no signs of drainage or cellulitis she will f/u with Dr Richardson after discharge multiple antibioitc allergies
[2016-09-03] MEDS ORDERED: INSULIN SLIDING SCALE (NOVOLOG) 1 VIAL SQ SCH (16:30)
--- NOTE | 2016-09-03 16:32 | CONSULT ---
Consult Consult Specialty:: Nephrology Reason for Consultation:: ESRD - History of Present Illness Chief Complaint: sent in from podiatry for biopsy History of Present Illness: Pt is a 50 year old female with pmhx of ESRD on HD MWF, DM, CVA, HTN, and left eye blindness who was sent in to the hospital from podiatry for an infected right foot ulcer. She was recently hospitalized for a CVA. She still has left arm weakness. She denies shortness of breath. She denies fevers or chills. She is scheduled for HD on Monday. - History Source History Provided By: Patient - Past Medical History PICK OUT HAND: Yes: CVA Cardio/Vascular: Yes: HTN, Hyperlipdemia, Other (Peripheral vascular disease) Pulmonary: Yes: Asthma, Sleep Apnea Gastrointestinal: Yes: Constipation Renal/: Yes: Renal Failure, Hemodialysis ...LMP: 07/08/16 Rheumatology: Yes: Other (See HPI) Endocrine: Yes: Diabetes Mellitus - Past Surgical History Past Surgical History: Yes: Amputation, AV Fistula/Graft, - Alcohol/Substance Use Hx Alcohol Use: No - Smoking History Smoking history: Never smoked Have you smoked in the past 12 months: No Aproximately how many cigarettes per day: 0 - Social History ADL: Independent History of Recent Travel: No Home Medications - Allergies Allergies/Adverse Reactions: Allergies Allergy/AdvReac Type Severity Reaction Status Date / Time amoxicillin [Amoxicillin] Allergy Severe Itching Verified 09/02/16 15:33 hydrocodone bitartrate Allergy Severe Hives,ITCHI Verified 09/02/16 15:33 [From Vicodin] NG morphine Allergy Severe Itching Verified 09/02/16 15:33 neomycin [Neomycin] Allergy Severe Swelling Verified 09/02/16 15:33 oxycodone HCl [From Percocet] Allergy Severe Itching,HIV Verified 09/02/16 15:33 ES rofecoxib [From Vioxx] Allergy Severe Hives Verified 09/02/16 15:33 Sulfa (Sulfonamide Allergy Severe sclera Verified 09/02/16 15:33 Antibiotics) reddened,ITCHING tramadol Allergy Severe Vomiting Verified 09/02/16 15:33 tomato Allergy Verified 09/03/16 14:26 grapefruit [Grapefruit] AdvReac Severe CAN'T TAKE Verified 09/02/16 15:33 BECAUSE OF MEDICATIONS vancomycin AdvReac Mild red man Verified 09/02/16 15:33 syndrome Heparin Analogues AdvReac Unknown Verified 09/02/16 15:33 [Heparin Agents] flu shot Allergy Severe GETS FLU Uncoded 09/02/16 15:33 SYMPTOMS grape juice AdvReac Severe Uncoded 09/02/16 15:33 - Home Medications Home Medications: Ambulatory Orders Albuterol Sulfate Inhaler - [Ventolin HFA Inhaler -] 2 inh PO BID PRN 08/03/16 Atorvastatin Ca [Lipitor] 80 mg PO HS 08/03/16 Benzonatate 100 mg PO TID PRN 08/03/16 Bisacodyl [Laxative] 10 mg PO BID PRN 08/03/16 Brimonidine Tartrate/Timolol [Combigan 0.2%-0.5% Eye Drops] 2 drop OU DAILY 01/10 Carvedilol [Coreg -] 12.5 mg PO BID 08/03/16 Clonazepam [Klonopin -] 0.5 mg PO BID 08/03/16 Diphenhydramine [Benadryl Capsule -] 50 mg PO PRN PRN 08/03/16 Famotidine [Pepcid -] 20 mg PO DAILY 08/03/16 Furosemide [Lasix] 40 mg PO BID 08/03/16 Insulin Aspart [Novolog] 100 unit SQ ACHS 08/03/16 Lidocaine/Prilocaine Cream [Lidocaine-Prilocaine Cream -] 1 applic TP PRN PRN Metoclopramide HCl [Reglan] 10 mg PO TID PRN 08/03/16 Mometasone/Formoterol [Dulera 100 Mcg/5 Mcg Inhaler] 2 inh IH BID PRN 08/03/16 Ondansetron [Zofran -] 4 mg PO DAILY PRN 08/03/16 Sennosides [Senna] 2 tab PO DAILY 08/03/16 Aspirin Coated [Ecotrin -] 81 mg PO DAILY #30 tab 08/06/16 Hydralazine HCl [Apresoline -] 50 mg PO BID tablet 08/06/16 Clopidogrel Bisulfate [Plavix -] 75 mg PO DAILY 08/26/16 Family Disease History - Family Disease History Family History: Denies Review of Systems - Review of Systems Constitutional: reports: No Symptoms Eyes: reports: No Symptoms HENT: reports: No Symptoms Neck: reports: No Symptoms Cardiovascular: reports: No Symptoms Respiratory: reports: No Symptoms Gastrointestinal: reports: No Symptoms Genitourinary: reports: No Symptoms Musculoskeletal: reports: Other (right foot ulcer) Neurological: reports: Pre-Existing Deficit Endocrine: reports: No Symptoms Hematology/Lymphatic: reports: No Symptoms Psychiatric: reports: No Symptoms Physical Exam Vital Signs: Vital Signs Temperature 97.4 F L 09/03/16 10:00 Pulse Rate 81 09/03/16 10:00 Respiratory Rate 20 09/03/16 10:00 Blood Pressure 154/72 09/03/16 10:00 O2 Sat by Pulse Oximetry (%) 99 09/02/16 17:45 Constitutional: Yes: Calm HENT: Yes: Atraumatic Cardiovascular: Yes: S1, S2 Respiratory: Yes: CTA Bilaterally Gastrointestinal: Yes: Soft, Abdomen, Obese Renal/: Yes: WNL Extremities: Yes: Other (right foot ulcer) Edema: No Wound/Incision: Yes: Dressing Dry and Intact Neurological: Yes: Oriented, Pre-Existing Deficit Psychiatric: Yes: Oriented Labs: CBC, BMP 09/03/16 08:10 09/03/16 08:10 Problem List - Problems (1) Diabetes Code(s): E11.9 - TYPE 2 DIABETES MELLITUS WITHOUT COMPLICATIONS Qualifiers: Diabetes mellitus type: type 2 Diabetes mellitus complication status: with kidney complications Diabetes mellitus complication detail: with chronic kidney disease Diabetes mellitus fci insulin use: with intermediate teacher use Chronic kidney disease stage: on chronic dialysis Qualified Code(s): E11.22 - Type 2 diabetes mellitus with diabetic chronic kidney disease ; N18.1 - Chronic kidney disease, stage 1; Z79.4 - superintendent terminal (current) use of insulin (2) ESRD (end stage renal disease) on dialysis Code(s): N18.6 - END STAGE RENAL DISEASE Z99.2 - DEPENDENCE ON RENAL DIALYSIS (3) Hypertension Code(s): I10 - ESSENTIAL (PRIMARY) HYPERTENSION Qualifiers: Hypertension type: essential hypertension Qualified Code(s): I10 - Essential (primary) hypertension (4) Ulcer of right foot due to type 2 diabetes mellitus Code(s): E11.621 - TYPE 2 DIABETES MELLITUS WITH FOOT ULCER L97.519 - NON-PRS CHRONIC ULCER OTH PRT RIGHT FOOT W UNSP SEVERITY (5) Anemia Code(s): D64.9 - ANEMIA, UNSPECIFIED Assessment/Plan Current Medications Generic Name Dose Route Start Last Admin Trade Name Freq PRN Reason Stop Dose Admin Acetaminophen 650 mg 09/02/16 19:10 Tylenol - PO Q4H PRN FEVER OR PAIN Albuterol Sulfate 2 puff 09/02/16 19:56 Ventolin Hfa Inhaler - IH Q12H PRN ASTHMA Aspirin 81 mg 09/03/16 10:00 09/03/16 11:19 Ecotrin - PO Not Given DAILY [facility] Atorvastatin Calcium 80 mg 09/02/16 22:00 09/02/16 23:06 Lipitor - PO 80 mg HS [facility] Administration Budesonide/Formoterol Fumarate 2 puff 09/02/16 22:00 09/03/16 11:20 Symbicort 80/4.5mcg - IH 2 puff BID [facility] Administration Carvedilol 12.5 mg 09/02/16 22:00 09/03/16 11:18 Coreg - PO 12.5 mg BID [facility] Administration Clonazepam 0.5 mg 09/02/16 22:00 09/03/16 11:19 Klonopin - PO 0.5 mg BID [facility] Administration Clopidogrel Bisulfate 75 mg 09/03/16 10:00 09/03/16 11:19 Plavix - PO Not Given DAILY [facility] Furosemide 40 mg 09/03/16 06:00 09/03/16 06:46 Lasix - PO Not Given BIDLASIX [facility] Hydralazine HCl 50 mg 09/02/16 22:00 09/03/16 11:18 Apresoline - PO 50 mg BID [facility] Administration Insulin Aspart 1 vial 09/03/16 16:30 Novolog Vial Sliding Scale - SQ TIDAC [facility] Protocol Lidocaine/Prilocaine 1 applic 09/03/16 10:00 09/03/16 11:21 Emla - TP Not Given DAILY [facility] Non-Formulary Medication 2 drop 09/03/16 10:00 Brimonidine Tartrate/Timolol [Combigan 0.2%-0.5% Eye Drops] OU DAILY [facility] Ondansetron HCl 4 mg 09/02/16 19:56 09/03/16 06:44 Zofran - PO 4 mg DAILY PRN Administration NAUSEA Polyethylene Glycol 17 gm 09/03/16 10:00 09/03/16 11:20 Miralax (For Daily Use) - PO Not Given DAILY [facility] Ranitidine HCl 150 mg 09/02/16 22:15 09/03/16 11:17 Zantac - PO 150 mg DAILY [facility] Administration Senna/Docusate Sodium 2 tablet 09/02/16 22:12 Pericolace - PO HS PRN CONSTIPATION Sevelamer Carbonate 800 mg 09/03/16 08:00 09/03/16 11:17 Renvela - PO 800 mg TIDCM [facility] Administration Topiramate 50 mg 09/02/16 22:00 09/03/16 11:20 Topamax - PO 50 mg BID [facility] Administration Impression 1. ESRD 2. CVA 3. DM 4. HLD 5. HTN 6. anemia 7. anxiety 8. infected right foot ulcer Plan - pt last had HD yesterday - podiatry eval for biopsy - ID eval as pt has multiple drug allergies - next HD on Monday - monitor blood pressure - will follow Dr Sharma
[2016-09-03] MEDS: ATORVASTATIN CA 80 MG TABLET (FP) PO SCH (22:30)
[2016-09-04] MEDS: FUROSEMIDE 40 MG TABLET (FP) PO SCH ×2 (06:21→14:00)
[2016-09-04] MEDS: INSULIN SLIDING SCALE (NOVOLOG) 1 VIAL SQ SCH ×3 (06:29→17:18)
[2016-09-04] MEDS ORDERED: BUPIVACAINE HCL/PF 0.25% (2.5MG/ML) 10 ML VIAL ONE (08:30)
[2016-09-04] MEDS ORDERED: PROPOFOL 20 ML ONE (08:33)
[2016-09-04] MEDS ORDERED: MIDAZOLAM HCL 2 MG/2 ML SINGLE DOSE VIAL ONE (08:33)
[2016-09-04] MEDS ORDERED: BUPIVACAINE HCL/PF 0.25% (2.5MG/ML) 10 ML VIAL IJ ONE (08:45)
--- NOTE | 2016-09-04 09:12 | CONSULT ---
Consult Consult Specialty:: Quan Menendez DPM Podiatary Reason for Consultation:: Possible Osteomyelitis Right Hallux - History of Present Illness Chief Complaint: Patient suffers from chronic ulceration of the right hallux base that has periods remission and exaccerbation. Recently the right hallux plantar wound increased in size with surrounding tissue showing edema and increased local temperature. The Patient was admitted to the ER on Monday. IV vancomycin administered and we plan to perform bone biopsy and culture. - History Source History Provided By: Medical Record - Past Medical History SANDBLASTER GLASS: Yes: CVA Cardio/Vascular: Yes: HTN, Hyperlipdemia, Other (Peripheral vascular disease) Pulmonary: Yes: Asthma, Sleep Apnea Gastrointestinal: Yes: Constipation Renal/: Yes: Renal Failure, Hemodialysis ...LMP: 07/08/16 Rheumatology: Yes: Other (See HPI) Endocrine: Yes: Diabetes Mellitus - Past Surgical History Past Surgical History: Yes: Amputation, AV Fistula/Graft, - Alcohol/Substance Use Hx Alcohol Use: No - Smoking History Smoking history: Never smoked Have you smoked in the past 12 months: No Aproximately how many cigarettes per day: 0 - Social History ADL: Independent History of Recent Travel: No Home Medications - Allergies Allergies/Adverse Reactions: Allergies Allergy/AdvReac Type Severity Reaction Status Date / Time amoxicillin [Amoxicillin] Allergy Severe Itching Verified 09/02/16 15:33 hydrocodone bitartrate Allergy Severe Hives,ITCHI Verified 09/02/16 15:33 [From Vicodin] NG morphine Allergy Severe Itching Verified 09/02/16 15:33 neomycin [Neomycin] Allergy Severe Swelling Verified 09/02/16 15:33 oxycodone HCl [From Percocet] Allergy Severe Itching,HIV Verified 09/02/16 15:33 ES rofecoxib [From Vioxx] Allergy Severe Hives Verified 09/02/16 15:33 Sulfa (Sulfonamide Allergy Severe sclera Verified 09/02/16 15:33 Antibiotics) reddened,ITCHING tramadol Allergy Severe Vomiting Verified 09/02/16 15:33 tomato Allergy Verified 09/03/16 14:26 grapefruit [Grapefruit] AdvReac Severe CAN'T TAKE Verified 09/02/16 15:33 BECAUSE OF MEDICATIONS vancomycin AdvReac Mild red man Verified 09/02/16 15:33 syndrome Heparin Analogues AdvReac Unknown Verified 09/02/16 15:33 [Heparin Agents] flu shot Allergy Severe GETS FLU Uncoded 09/02/16 15:33 SYMPTOMS grape juice AdvReac Severe Uncoded 09/02/16 15:33 - Home Medications Home Medications: Ambulatory Orders Albuterol Sulfate Inhaler - [Ventolin HFA Inhaler -] 2 inh PO BID PRN 08/03/16 Atorvastatin Ca [Lipitor] 80 mg PO HS 08/03/16 Benzonatate 100 mg PO TID PRN 08/03/16 Bisacodyl [Laxative] 10 mg PO BID PRN 08/03/16 Brimonidine Tartrate/Timolol [Combigan 0.2%-0.5% Eye Drops] 2 drop OU DAILY 01/10 Carvedilol [Coreg -] 12.5 mg PO BID 08/03/16 Clonazepam [Klonopin -] 0.5 mg PO BID 08/03/16 Diphenhydramine [Benadryl Capsule -] 50 mg PO PRN PRN 08/03/16 Famotidine [Pepcid -] 20 mg PO DAILY 08/03/16 Furosemide [Lasix] 40 mg PO BID 08/03/16 Insulin Aspart [Novolog] 100 unit SQ ACHS 08/03/16 Lidocaine/Prilocaine Cream [Lidocaine-Prilocaine Cream -] 1 applic TP PRN PRN Metoclopramide HCl [Reglan] 10 mg PO TID PRN 08/03/16 Mometasone/Formoterol [Dulera 100 Mcg/5 Mcg Inhaler] 2 inh IH BID PRN 08/03/16 Ondansetron [Zofran -] 4 mg PO DAILY PRN 08/03/16 Sennosides [Senna] 2 tab PO DAILY 08/03/16 Aspirin Coated [Ecotrin -] 81 mg PO DAILY #30 tab 08/06/16 Hydralazine HCl [Apresoline -] 50 mg PO BID tablet 08/06/16 Clopidogrel Bisulfate [Plavix -] 75 mg PO DAILY 08/26/16 Physical Exam Vital Signs: Vital Signs Temperature 98.8 F 09/04/16 07:00 Pulse Rate 81 09/04/16 07:00 Respiratory Rate 20 09/04/16 07:00 Blood Pressure 154/80 09/04/16 07:00 O2 Sat by Pulse Oximetry (%) 99 09/02/16 17:45 Wound/Incision: Yes: Other (right hallux plantar wound 1 cm diameter, subcutaneous base with chronic inflammatory tissue. No erythema, edema, purulence of temp in crease in the surrounding tissue.) Labs: CBC, BMP 09/03/16 08:10 09/03/16 08:10 Assessment/Plan Assessment From prior x-ray studies showing bone erosion at the base of the proximal phalanx of the right hallux and the chronic nature of the ulceration I feel osteomyelitis is possible. No sign of cellulitis is present at this time however on admission cellulitis was present. Plan Plan to perform bone culture and biopsy of the base of the proximal phalanx of the hallux today to establish or rule out the presence of bone infection at the site.
[2016-09-04] MEDS ORDERED: ONDANSETRON 4 MG/2 ML VIAL IVPUSH PRN ×2 (09:25→09:35)
[2016-09-04] MEDS ORDERED: PATIENT'S OWN MEDICATION (NON-FORMULARY) (Benzonatate [Benzonatate] 100 MG) PO PRN (09:26)
[2016-09-04] MEDS ORDERED: SODIUM CHLORIDE 1,000 ML IV SCH ×2 (09:30→09:35)
[2016-09-04] MEDS ORDERED: ONDANSETRON 4 MG TABLET PO PRN (09:35)
[2016-09-04] MEDS ORDERED: ALBUTEROL SO4 6.7 GM HFA INHALER IH PRN (09:35)
[2016-09-04 10:06] LABS: BASOPHIL 0.8 % (0-2.0); EOSINOPHIL 3.5 % (0-4.5); MCH 34.1 pg (25.7-33.7); MCHC 32.8 g/dl (32.0-36.0); MEAN CELL VOLUME 103.9 fl (80-96); MEAN PLT VOLUME 9.1 fl (7.5-11.1); NEUTROPHILS 73.2 % (42.8-82.8); PLATELET COUNT 167 K/MM3 (134-434); RDW 13.6 % (11.6-15.6); WHITE BLOOD COUNT 7.9 K/mm3 (4.0-10.0)
[2016-09-04 10:35] LABS: ALBUMIN 3.4 g/dl (3.4-5.0); BILIRUBIN,TOTAL 0.4 mg/dL (0.2-1.0); TOT PROT 6.9 g/dl (6.4-8.2)
[2016-09-04 10:40] LABS: COCKROFT - GAULT 11.9
[2016-09-04 11:04] LABS: C-REACTIVE PROTEIN 0.4 MG/DL (0.00-0.3)
--- NOTE | 2016-09-04 11:47 | PN ---
Teaching Attending Note Name of Resident: Braydon Felipe ATTENDING PHYSICIAN STATEMENT I saw and evaluated the patient. I reviewed the resident's note and discussed the case with the resident. I agree with the resident's findings and plan as documented. SUBJECTIVE: Comfortable, feeling better. OBJECTIVE: Vital Signs Temperature 97.6 F 09/04/16 10:00 Pulse Rate 72 09/04/16 10:00 Respiratory Rate 18 09/04/16 10:00 Blood Pressure 152/84 09/04/16 10:00 O2 Sat by Pulse Oximetry (%) 98 09/04/16 10:00 GENERAL: The patient is awake, alert, and fully oriented, in no acute distress. HEAD: Normal with no signs of trauma. EYES: PERRL, extraocular movements intact, sclera anicteric, conjunctiva clear. POsitive for exopthalmos ENT: Ears normal, oropharynx clear without exudates, moist mucous membranes. NECK: Trachea midline, full range of motion, supple. LUNGS: Breath sounds equal, clear to auscultation bilaterally, no wheezes, no crackles, no accessory muscle use. HEART: Regular rate and rhythm, S1, S2 without murmur, rub or gallop. ABDOMEN: Soft, nontender, nondistended, normoactive bowel sounds, no guarding, no rebound, no hepatosplenomegaly, no masses. EXTREMITIES: 2+ pulses, warm, well-perfused, Right foot plantar ulcer behind great toe 2x2cm, no pus, no drainage. NEUROLOGICAL: Cranial nerves II through XII grossly intact. Normal speech, uses wheelchair PSYCH: Normal mood, normal affect. SKIN: Warm, dry, normal turgor. CBCD WBC 7.9 K/mm3 (4.0-10.0) 09/04/16 09:40 RBC 2.90 M/mm3 (3.60-5.2) L 09/04/16 09:40 Hgb 9.9 GM/dL (10.7-15.3) L 09/04/16 09:40 Hct 30.2 % (32.4-45.2) L 09/04/16 09:40 MCV 103.9 fl (80-96) H 09/04/16 09:40 MCHC 32.8 g/dl (32.0-36.0) 09/04/16 09:40 RDW 13.6 % (11.6-15.6) 09/04/16 09:40 Plt Count 167 K/MM3 (134-434) 09/04/16 09:40 MPV 9.1 fl (7.5-11.1) 09/04/16 09:40 CMP Sodium 135 mmol/L (136-145) L 09/04/16 09:40 Potassium 4.4 mmol/L (3.5-5.1) 09/04/16 09:40 Chloride 97 mmol/L (98-107) L 09/04/16 09:40 Carbon Dioxide 24 mmol/L (21-32) 09/04/16 09:40 Anion Gap 14 (8-16) 09/04/16 09:40 BUN 46 mg/dL (7-18) H D 09/04/16 09:40 Creatinine 7.4 mg/dL (0.55-1.02) H D 09/03/16 08:10 Creat Clearance w eGFR 4.13 (>60) 09/04/16 09:40 Random Glucose 251 mg/dL (74-106) H D 09/04/16 09:40 Calcium 9.0 mg/dL (8.5-10.1) 09/04/16 09:40 Total Bilirubin 0.4 mg/dL (0.2-1.0) 09/04/16 09:40 AST 20 U/L (15-37) 09/04/16 09:40 ALT 20 U/L (12-78) 09/04/16 09:40 Alkaline Phosphatase 79 U/L (45-117) 09/04/16 09:40 Total Protein 6.9 g/dl (6.4-8.2) 09/04/16 09:40 Albumin 3.4 g/dl (3.4-5.0) 09/04/16 09:40 Microbiology 09/02/16 16:50 Blood - Peripheral Venous Blood Culture - Preliminary NO GROWTH OBTAINED AFTER 24 HOURS, INCUBATION TO CONTINUE FOR 4 DAYS. Right Foot XRAY Interval moderate osteoarthritic changes involving the first metatarsophalangeal joint. There is soft tissue swelling around the first toe as well as around the base of the third toe. There is also soft tissue swelling , dorsally. No soft tissue air is identified. Correlate clinically and further evaluation with MRI of the right foot would be the study of choice to rule out osteomyelitis. ASSESSMENT/PLAN: This is a 50 year old female with a past medical history of cva (08/10), IDDM, ESRD (MWF), history of MSSA+ osteomylitis of left foot, presents with worsening right foot ulcer. Admitted for IV antibiotics, rule out osteomyelitis. #Acute diabetic of right foot ulcer ; MRI and bone biopsy done today results pending to r/o Osteomeyelitis .Patient was treated for 6 weeks of IV antibiotic for her left foot. no leukocytosis, afebrile, given one dose of linezolid due to hx of MSSA; and patient allergic to vancomycin. Past wound culture of right foot positive for stenotrophomon X Maltophila; ent fecalis; staph aureus ,blood culture pending ,ESR elevated, crp pending, f/u MRI, betadine dressing , no weight bearing on right foot, Podiatry & ID consulted #Hx of CVA with residual left sided arm weakness, cont 81mg ASA po qd & plavix 75mg po daily. #ESRD: MWF nephrology consulted for dialysis #IDDM:insulin SS; BGM, hemoglobin A1C #HTN: cont carvedilol 12.5po bid, lasix 40mg po daily #HLD: atorvastatin 80mg po HS qd #asthma: on albuterol inhaler 2 puff bid prn, symbicort 2 puff bid #diabetic retinopathy: cont home med eye drops' brimoonidine tartrate/timolol 2 drops OU daily VTE prophylaxis: one time heparin given due to patient going to a bone biopsy in the am; In the past patient had a retinal bleed and was not able to use heparin. As per patient , can use heparin now as per patient
[2016-09-04] MEDS: LIDOCAINE 2.5%/PRILOCAINE 2.5% (5 Gram/TUBE) TP SCH (13:12)
[2016-09-04] MEDS: ASPIRIN COATED 81 MG TABLET.EC PO SCH (13:12)
[2016-09-04] MEDS: hydrALAZINE HCL 50 MG TABLET (FP) PO SCH ×2 (13:12→21:59)
[2016-09-04] MEDS: CLOPIDOGREL BISULFATE 75 MG TABLET (FP) PO SCH (13:12)
[2016-09-04] MEDS: clonazePAM 0.5 MG TABLET PO SCH ×2 (13:12→21:59)
[2016-09-04] MEDS: CARVEDILOL 12.5 MG TABLET (FP) PO SCH ×2 (13:13→21:59)
[2016-09-04] MEDS: SEVELAMER CARBONATE 800 MG TAB (FP) PO SCH ×2 (13:14→17:23)
[2016-09-04] MEDS: RANITIDINE HCL 150 MG TABLET (FP) PO SCH (13:14)
[2016-09-04] MEDS: TOPIRAMATE 25 MG TABLET (FP) PO SCH ×2 (13:18→21:59)
[2016-09-04] MEDS: POLYETHYLENE GLYCOL 3350 119 GM BTL PO SCH (13:19)
[2016-09-04] MEDS: BUDESONIDE/FORMETEROL FUMARATE 80/4.5 mcg INHALER IH SCH ×2 (13:19→22:03)
[2016-09-04] MEDS: TIMOLOL 0.5% OPHTHALMIC SOL 5 ML BOTTLE OU SCH (13:21)
[2016-09-04] MEDS: BRIMONIDINE TARTRATE 0.2% OPHTHALMIC 5 ML BOTTLE OU SCH (13:21)
[2016-09-04] MEDS ORDERED: LORazepam 2 MG/ML SDV VIAL IVPUSH ONE (15:00)
--- NOTE | 2016-09-04 16:44 | PN ---
Progress Note, Physician History of Present Illness: Pt seen and examined at bedside. She is awake and alert. She denies shortness of breath or palpitations. - Current Medication List Current Medications: Active Medications Acetaminophen (Tylenol -) 650 mg PO Q4H PRN PRN Reason: FEVER OR PAIN Albuterol Sulfate (Ventolin Hfa Inhaler -) 2 puff IH Q12H PRN PRN Reason: ASTHMA Aspirin (Ecotrin -) 81 mg PO DAILY [facility] Last Admin: 09/04/16 13:12 Dose: 81 mg Atorvastatin Calcium (Lipitor -) 80 mg PO HS [facility] Brimonidine Tartrate (Alphagan 0.2% -) 2 drop OU DAILY [facility] Last Admin: 09/04/16 13:21 Dose: Not Given Budesonide/Formoterol Fumarate (Symbicort 80/4.5mcg -) 2 puff IH BID [facility] Last Admin: 09/04/16 13:19 Dose: Not Given Carvedilol (Coreg -) 12.5 mg PO BID [facility] Last Admin: 09/04/16 13:13 Dose: 12.5 mg Clonazepam (Klonopin -) 0.5 mg PO BID [facility] Last Admin: 09/04/16 13:12 Dose: 0.5 mg Clopidogrel Bisulfate (Plavix -) 75 mg PO DAILY [facility] Last Admin: 09/04/16 13:12 Dose: 75 mg Furosemide (Lasix -) 40 mg PO BIDLASIX [facility] Hydralazine HCl (Apresoline -) 50 mg PO BID [facility] Last Admin: 09/04/16 13:12 Dose: 50 mg Insulin Aspart (Novolog Vial Sliding Scale -) 1 vial SQ TIDAC [facility] PRN Reason: Protocol Lidocaine/Prilocaine (Emla -) 1 applic TP DAILY [facility] Last Admin: 09/04/16 13:12 Dose: Not Given Non-Formulary Medication (Benzonatate [Benzonatate]) 100 mg PO TID PRN PRN Reason: COUGH Ondansetron HCl (Zofran -) 4 mg PO DAILY PRN PRN Reason: NAUSEA Polyethylene Glycol (Miralax (For Daily Use) -) 17 gm PO DAILY [facility] Last Admin: 09/04/16 13:19 Dose: 17 g Ranitidine HCl (Zantac -) 150 mg PO DAILY [facility] Last Admin: 09/04/16 13:14 Dose: 150 mg Senna/Docusate Sodium (Pericolace -) 2 tablet PO HS PRN PRN Reason: CONSTIPATION Sevelamer Carbonate (Renvela -) 800 mg PO TIDCM [facility] Last Admin: 09/04/16 13:14 Dose: 800 mg Timolol Maleate (Timoptic 0.5%) 1 drop OU DAILY [facility] Last Admin: 09/04/16 13:21 Dose: Not Given Topiramate (Topamax -) 50 mg PO BID [facility] Last Admin: 09/04/16 13:18 Dose: 50 mg - Objective Vital Signs: Vital Signs Temperature 98.5 F 09/04/16 14:41 Pulse Rate 78 09/04/16 14:41 Respiratory Rate 20 09/04/16 14:41 Blood Pressure 142/78 09/04/16 14:41 O2 Sat by Pulse Oximetry (%) 98 09/04/16 10:00 Constitutional: Yes: Calm HENT: Yes: Atraumatic Neck: Yes: Supple Cardiovascular: Yes: S1, S2 Respiratory: Yes: CTA Bilaterally Gastrointestinal: Yes: Soft, Abdomen, Obese Genitourinary: Yes: WNL Edema: Yes Edema: LLE: Trace, RLE: Trace Neurological: Yes: Oriented, Pre-Existing Deficit Labs: CBC, BMP 09/04/16 09:40 09/04/16 09:40 Problem List - Problems (1) Diabetes Code(s): E11.9 - TYPE 2 DIABETES MELLITUS WITHOUT COMPLICATIONS Qualifiers: Diabetes mellitus type: type 2 Diabetes mellitus complication status: with kidney complications Diabetes mellitus complication detail: with chronic kidney disease Diabetes mellitus fci insulin use: with fci use Chronic kidney disease stage: on chronic dialysis Qualified Code(s): E11.22 - Type 2 diabetes mellitus with diabetic chronic kidney disease ; N18.1 - Chronic kidney disease, stage 1; Z79.4 - long term care social worker (current) use of insulin (2) ESRD (end stage renal disease) on dialysis Code(s): N18.6 - END STAGE RENAL DISEASE Z99.2 - DEPENDENCE ON RENAL DIALYSIS (3) Hypertension Code(s): I10 - ESSENTIAL (PRIMARY) HYPERTENSION Qualifiers: Hypertension type: essential hypertension Qualified Code(s): I10 - Essential (primary) hypertension (4) Ulcer of right foot due to type 2 diabetes mellitus Code(s): E11.621 - TYPE 2 DIABETES MELLITUS WITH FOOT ULCER L97.519 - NON-PRS CHRONIC ULCER OTH PRT RIGHT FOOT W UNSP SEVERITY (5) Anemia Code(s): D64.9 - ANEMIA, UNSPECIFIED Assessment/Plan Current Medications Generic Name Dose Route Start Last Admin Trade Name Freq PRN Reason Stop Dose Admin Acetaminophen 650 mg 09/04/16 09:35 Tylenol - PO Q4H PRN FEVER OR PAIN Albuterol Sulfate 2 puff 09/04/16 09:35 Ventolin Hfa Inhaler - IH Q12H PRN ASTHMA Aspirin 81 mg 09/04/16 10:00 09/04/16 13:12 Ecotrin - PO 81 mg DAILY [facility] Administration Atorvastatin Calcium 80 mg 09/04/16 22:00 Lipitor - PO HS [facility] Brimonidine Tartrate 2 drop 09/04/16 10:00 09/04/16 13:21 Alphagan 0.2% - OU Not Given DAILY [facility] Budesonide/Formoterol Fumarate 2 puff 09/04/16 10:00 09/04/16 13:19 Symbicort 80/4.5mcg - IH Not Given BID [facility] Carvedilol 12.5 mg 09/04/16 10:00 09/04/16 13:13 Coreg - PO 12.5 mg BID [facility] Administration Clonazepam 0.5 mg 09/04/16 10:00 09/04/16 13:12 Klonopin - PO 0.5 mg BID [facility] Administration Clopidogrel Bisulfate 75 mg 09/04/16 10:00 09/04/16 13:12 Plavix - PO 75 mg DAILY [facility] Administration Furosemide 40 mg 09/04/16 14:00 Lasix - PO BIDLASIX [facility] Hydralazine HCl 50 mg 09/04/16 10:00 09/04/16 13:12 Apresoline - PO 50 mg BID [facility] Administration Insulin Aspart 1 vial 09/04/16 11:00 Novolog Vial Sliding Scale - SQ TIDAC [facility] Protocol Lidocaine/Prilocaine 1 applic 09/04/16 10:00 09/04/16 13:12 Emla - TP Not Given DAILY [facility] Non-Formulary Medication 100 mg 09/04/16 09:26 Benzonatate [Benzonatate] PO TID PRN COUGH Ondansetron HCl 4 mg 09/04/16 09:35 Zofran - PO DAILY PRN NAUSEA Polyethylene Glycol 17 gm 09/04/16 10:00 09/04/16 13:19 Miralax (For Daily Use) - PO 17 g DAILY [facility] Administration Ranitidine HCl 150 mg 09/04/16 10:00 09/04/16 13:14 Zantac - PO 150 mg DAILY [facility] Administration Senna/Docusate Sodium 2 tablet 09/04/16 09:35 Pericolace - PO HS PRN CONSTIPATION Sevelamer Carbonate 800 mg 09/04/16 12:00 09/04/16 13:14 Renvela - PO 800 mg TIDCM [facility] Administration Timolol Maleate 1 drop 09/04/16 12:45 09/04/16 13:21 Timoptic 0.5% OU Not Given DAILY [facility] Topiramate 50 mg 09/04/16 10:00 09/04/16 13:18 Topamax - PO 50 mg BID [facility] Administration Impression 1. ESRD 2. CVA 3. DM 4. HLD 5. HTN 6. anemia 7. anxiety 8. infected right foot ulcer Plan - will arrange for HD in am - pt had bone biopsy done today, follow cultures - ID eval as pt has multiple drug allergies - monitor blood pressure - renal diet - discussed plan with patient - will follow Dr Sharma
--- NOTE | 2016-09-04 17:30 | PN ---
Physical Exam: SUBJECTIVE: Patient seen and examined at bedside. No overnight events. Complaining of vertigo and left sided heaviness. Denies CP,DEJESUS, SOB, palpitations, abd. pain, N/V. OBJECTIVE: Vital Signs Period Temp Pulse Resp BP Sys/[place] Pulse Ox Last 24 Hr 97.6 F-98.8 F 71-100 16-20 123-182/72-84 98-100 GENERAL: Obese, Awake, alert, and fully oriented, in no acute distress. HEAD: Normal with no signs of trauma. LUNGS: decreased breath sounds equal, clear to auscultation bilaterally. No wheezes, and no crackles. No accessory muscle use. HEART: RRR, normal S1 and S2 without murmur, rub or gallop. ABDOMEN: obese Soft, nontender, not distended, normoactive bowel sounds, no guarding, no rebound, no masses. No hepatomegaly or splenomegaly. MUSCULOSKELETAL: Normal range of motion at all joints. No bony deformities or tenderness. No CVA tenderness. UPPER EXTREMITIES: 2+ pulses, warm, well-perfused. No cyanosis. No clubbing. No peripheral edema. LOWER EXTREMITIES: 2+ pulses, warm, well-perfused. No calf tenderness. No peripheral edema. Right foot plantar ulcer behind great toe 2x2cm, no pus, no drainage, edges soft, dose not probe to bone , on the doral aspect of the foot there is swelling Laboratory Results - last 24 hr 09/03/16 09/04/16 09/04/16 17:23 06:28 09:40 WBC 7.9 RBC 2.90 L Hgb 9.9 L Hct 30.2 L MCV 103.9 H MCHC 32.8 RDW 13.6 Plt Count 167 MPV 9.1 Neutrophils % 73.2 Lymphocytes % 15.9 Monocytes % 6.6 Eosinophils % 3.5 Basophils % 0.8 Sodium Potassium Chloride Carbon Dioxide Anion Gap BUN Creatinine Creat Clearance w eGFR POC Glucometer 259 219 Random Glucose Calcium Total Bilirubin AST ALT Alkaline Phosphatase Total Protein Albumin 09/04/16 09/04/16 09:40 12:30 WBC RBC Hgb Hct MCV MCHC RDW Plt Count MPV Neutrophils % Lymphocytes % Monocytes % Eosinophils % Basophils % Sodium 135 L Potassium 4.4 Chloride 97 L Carbon Dioxide 24 Anion Gap 14 BUN 46 H D Creatinine 10.0 H* D Creat Clearance w eGFR 4.13 POC Glucometer 240 Random Glucose 251 H D Calcium 9.0 Total Bilirubin 0.4 AST 20 ALT 20 Alkaline Phosphatase 79 Total Protein 6.9 Albumin 3.4 Active Medications Generic Name Dose Route Start Last Admin Trade Name Freq PRN Reason Stop Dose Admin Acetaminophen 650 mg 09/04/16 09:35 Tylenol - PO Q4H PRN FEVER OR PAIN Albuterol Sulfate 2 puff 09/04/16 09:35 Ventolin Hfa Inhaler - IH Q12H PRN ASTHMA Aspirin 81 mg 09/04/16 10:00 09/04/16 13:12 Ecotrin - PO 81 mg DAILY MANDO Administration Atorvastatin Calcium 80 mg 09/04/16 22:00 Lipitor - PO HS MANDO Brimonidine Tartrate 2 drop 09/04/16 10:00 09/04/16 13:21 Alphagan 0.2% - OU Not Given DAILY MANDO Budesonide/Formoterol Fumarate 2 puff 09/04/16 10:00 09/04/16 13:19 Symbicort 80/4.5mcg - IH Not Given BID MANDO Carvedilol 12.5 mg 09/04/16 10:00 09/04/16 13:13 Coreg - PO 12.5 mg BID MANDO Administration Clonazepam 0.5 mg 09/04/16 10:00 09/04/16 13:12 Klonopin - PO 0.5 mg BID MANDO Administration Clopidogrel Bisulfate 75 mg 09/04/16 10:00 09/04/16 13:12 Plavix - PO 75 mg DAILY M[facility]O Administration Furosemide 40 mg 09/04/16 14:00 09/04/16 14:00 Lasix - PO 40 mg BIDLASIX [facility]O Administration Hydralazine HCl 50 mg 09/04/16 10:00 09/04/16 13:12 Apresoline - PO 50 mg BID MANDO Administration Insulin Aspart 1 vial 09/04/16 11:00 09/04/16 17:18 Novolog Vial Sliding Scale - SQ 4 unit TIDAC [facility]O Administration Protocol Lidocaine/Prilocaine 1 applic 09/04/16 10:00 09/04/16 13:12 Emla - TP Not Given DAILY [facility] Non-Formulary Medication 100 mg 09/04/16 09:26 Benzonatate [Benzonatate] PO TID PRN COUGH Ondansetron HCl 4 mg 09/04/16 09:35 Zofran - PO DAILY PRN NAUSEA Polyethylene Glycol 17 gm 09/04/16 10:00 09/04/16 13:19 Miralax (For Daily Use) - PO 17 g DAILY [facility] Administration Ranitidine HCl 150 mg 09/04/16 10:00 09/04/16 13:14 Zantac - PO 150 mg DAILY [facility] Administration Senna/Docusate Sodium 2 tablet 09/04/16 09:35 Pericolace - PO HS PRN CONSTIPATION Sevelamer Carbonate 800 mg 09/04/16 12:00 09/04/16 17:23 Renvela - PO 800 mg TIDCM [facility] Administration Timolol Maleate 1 drop 09/04/16 12:45 09/04/16 13:21 Timoptic 0.5% OU Not Given DAILY [facility]O Topiramate 50 mg 09/04/16 10:00 09/04/16 13:18 Topamax - PO 50 mg BID MANDO Administration ASSESSMENT/PLAN: 50 yo F with a PMHx of cva (08/10), IDDM, ESRD (MWF), history of MSSA+ osteomylitis of left foot, presents with worsening right foot ulcer. Admitted for IV antibiotics, rule out osteomyelitis. Problem List - Problems (1) Ulcer of right foot due to type 2 diabetes mellitus Assessment/Plan: * MRI and bone biopsy done today results pending * Seen by ID felt to be chronic Osteo as opposed to new infection * Will hold antibiotics for now * Repeat AM labs including ESR (2) Diabetes Assessment/Plan: * Hgb A1C 9.9 * ADA diet * BGM ACHS * ISS ACHS (3) ESRD (end stage renal disease) Assessment/Plan: * Dialysis MWF * Dr. Sharma is following * Avoid nephrotoxins. * Renal dose meds Code(s): N18.6 - END STAGE RENAL DISEASE (4) Hypertension Assessment/Plan: * Continue Carvedilol 12.5 mg PO BID * Lasix 40mg PO daily * Hydralazine 50 mg PO BID (5) Hyperlipemia Assessment/Plan: * Continue Liptor 80mg PO HS (6) H/O: CVA (cerebrovascular accident) Assessment/Plan: * Continue ASA and Plavix (7) Asthma Assessment/Plan: * Symbicort 2 puff BID * Albuterol INH prn. (8) Diabetic retinopathy Assessment/Plan: * Continue * Brimonidine Tartrate (Alphagan 0.2% -) 2 drop OU DAILY * Timolol Maleate (Timoptic 0.5%) 1 drop OU DAILY (9) Migraine Assessment/Plan: * Continue Topiramate. 50mg BID Visit type - Emergency Visit Emergency Visit: Yes ED Registration Date: 09/02/16 Care time: The patient presented to the Emergency Department on the above date and was hospitalized for further evaluation of their emergent condition. - New Patient This patient is new to me today: Yes Date on this admission: 09/04/16 - Critical Care Critical Care patient: No
--- NOTE | 2016-09-04 17:44 | CONSULT ---
Consult - text type - Consultation Consultation Note: NEUROLOGY CONSULTATION is greatly appreciated: This 50 yo RH woman with h/o HTN, Chol, Asthma and chronic diabetes complicated by retinopathy (blind OS), Neuropathy and ESRD on HD. On multiple medications. Prior MRSA osteomyelitis Right great toe. Now admitted for right 1st MT biopsy for recurrent Osteo. ESR=68, 76. MCV= 103, 104. Known to me from prior hospitalization and office follow-up. Headache free on Topiramate 50 mg BID. Admitted Monday. Yesterday, had one episode of spinning vertigo associated with left side "heaviness." Episodic slurred speech and "repeating herself." Has not recurred x 24 hrs. No tinnitus or hearing loss. ANTONIO: Obses. Neck supple. No Bruits. Cor reg. R foot bandaged. NEURO: Awake, alert. Anxious. Speech fluent CN: Blind OS. Full murray OD. No facial. Full EOM's without Nystagmus. No facial. Gag normal Motor: No drift or tremor. Normal grasps. Normal BILLY's with encouragement. Normal ankle Dorsiflexion. Decreased KJ's. Absent AJ's. Coord: No FTN dystaxia Sensory: Decreased vib to both ankles. Gait: Not tested. IMP: Non-focal exam Cannot exclude vertebro-basilar TIA or labyrinthine vertigo. Migraine [id number] on Topiramate. Diabetic peripheral neuropathy. SUGGEST: MRI of brain (C-) and MR Angio of vertebrobasilar system. Continue clopidogrel and topiramate 50 mg BID Do not resume benadryl or metachlopramide upon D/c. PT eval and Rx. Mobilize OOB to chair. DVT prophylaxis. Thank you very much, Simone Faye MD
--- NOTE | 2016-09-04 18:29 | OP ---
DATE OF OPERATION: 09/04/2016 PREOPERATIVE DIAGNOSIS: Presumptive osteomyelitis of the right hallux base. POSTOPERATIVE DIAGNOSIS: Presumptive osteomyelitis of the right hallux base. PROCEDURE: Bone biopsy of the right hallux base. DESCRIPTION: Under fractional anesthesia and a surgical scrub with Betadine scrub and solution x2, the patient was draped using sterile technique. Inspection of the right hallux showed a 1-cm plantar incision inferior to the base of the proximal phalanx. That was an incision that was ulceration. The ulceration extended to the subcutaneous tissue with no erythema, edema, or purulence from the surrounding tissue. The skin edges were attached. No undermining was present. Normal temperature. No sign of hallux cellulitis. Using a number 15 surgical blade, a linear longitudinal 5-mm incision was made on the medial aspect of the right hallux over the base of the proximal phalanx. The incision was approximately 1.5 cm dorsal to the plantar ulceration. The incision was carried down to bone using a number 15 blade. Then a Ori needle trephine was inserted into the incision, and a core of hallux bone was resected from the base of the proximal phalanx. This core was then split on the table, a portion being applied to the bone culture, and the other portion sent for bone pathology. Following successful harvesting of the core of bone, two 4-0 simple interrupted nylon sutures were applied to the hallux base incision, and a dry sterile dressing was applied to the right foot. The patient tolerated the surgical procedure well and left the operating room stable, alert, awake, and in no pain. SANGITA SLOAN/[id number]
[2016-09-04] MEDS ORDERED: INSULIN (NOVOLOG) ASPART 100 UNITS/ML 10ML VIAL ONE (19:41)
[2016-09-04] MEDS: ACETAMINOPHEN 325 MG TABLET (FP) PO PRN (20:09)
[2016-09-04] MEDS ORDERED: PT OWN MED DRAWER 7, Y5N ONE (21:27)
[2016-09-04] MEDS: ATORVASTATIN CA 80 MG TABLET (FP) PO SCH (21:59)
[2016-09-04] MEDS: SENNOSIDES/DOCUSATE COMBO (SENNA PLUS) TABLET (UD) PO PRN (22:45)
[2016-09-05] MEDS: FUROSEMIDE 40 MG TABLET (FP) PO SCH ×2 (05:40→17:28)
[2016-09-05] MEDS ORDERED: INSULIN (NOVOLOG) ASPART 100 UNITS/ML 10ML VIAL ONE (06:18)
[2016-09-05] MEDS: INSULIN SLIDING SCALE (NOVOLOG) 1 VIAL SQ SCH ×3 (06:51→17:28)
[2016-09-05] MEDS ORDERED: PT OWN MED DRAWER 7, Y5N ONE ×2 (08:57→20:59)
[2016-09-05] MEDS: ASPIRIN COATED 81 MG TABLET.EC PO SCH (09:01)
[2016-09-05] MEDS: clonazePAM 0.5 MG TABLET PO SCH ×2 (09:01→22:05)
[2016-09-05] MEDS: RANITIDINE HCL 150 MG TABLET (FP) PO SCH (09:01)
[2016-09-05] MEDS: SEVELAMER CARBONATE 800 MG TAB (FP) PO SCH ×3 (09:01→17:28)
--- NOTE | 2016-09-05 09:32 | PN ---
Progress Note (short form) - Note Progress Note: Post op day#1.S/P Right foot bone biopsy under MAC uneventful.Patient stable.No any anesthesia related problem.Patient DC from the anesthesia care.
[2016-09-05] MEDS: BUDESONIDE/FORMETEROL FUMARATE 80/4.5 mcg INHALER IH SCH ×2 (11:30→22:06)
[2016-09-05] MEDS: LIDOCAINE 2.5%/PRILOCAINE 2.5% (5 Gram/TUBE) TP SCH (11:30)
--- NOTE | 2016-09-05 12:55 | PN ---
Progress Note (short form) - Note Progress Note: s/p bone biopsy for recurrent ulcer currently on HD Vital Signs Period Temp Pulse Resp BP Sys/[place] Pulse Ox Last 24 Hr 97.7 F-98.9 F 74-85 18-20 105-161/46-94 98 cor-rrr lungs clear abd soft,nt ext dressing intact CBC, BMP 09/04/16 09:40 09/04/16 09:40 Microbiology 09/04/16 09:50 Toe - Right Hallux Gram Stain - Final 09/04/16 09:50 Toe - Right Hallux Wound Culture - Preliminary NO GROWTH OBTAINED AFTER 24 HOURS INCUBATION, REINCUBATED. 09/02/16 16:50 Blood - Peripheral Venous Blood Culture - Preliminary NO GROWTH OBTAINED AFTER 48 HOURS, INCUBATION TO CONTINUE FOR 3 DAYS. a/p local wound care for foot per podiatry, no cellulitis, f/u bone culture can f/u with her ID doctor Dr Richardson as outpt please call back if needed would hold antibiotics for now- no signs of drainage or cellulitis she will f/u with Dr Richardson after discharge multiple antibioitc allergies noted
[2016-09-05] MEDS: CLOPIDOGREL BISULFATE 75 MG TABLET (FP) PO SCH (14:18)
[2016-09-05] MEDS: hydrALAZINE HCL 50 MG TABLET (FP) PO SCH ×2 (14:18→22:05)
[2016-09-05] MEDS: CARVEDILOL 12.5 MG TABLET (FP) PO SCH ×2 (14:18→22:05)
[2016-09-05] MEDS: TOPIRAMATE 25 MG TABLET (FP) PO SCH ×2 (14:18→22:05)
[2016-09-05] MEDS: TIMOLOL 0.5% OPHTHALMIC SOL 5 ML BOTTLE OU SCH (14:22)
[2016-09-05] MEDS: BRIMONIDINE TARTRATE 0.2% OPHTHALMIC 5 ML BOTTLE OU SCH (14:23)
[2016-09-05] MEDS: POLYETHYLENE GLYCOL 3350 119 GM BTL PO SCH (14:24)
--- NOTE | 2016-09-05 14:28 | PN ---
Progress Note, Physician History of Present Illness: Pt seen and examined at bedside. She tolerated HD today. - Current Medication List Current Medications: Active Medications Acetaminophen (Tylenol -) 650 mg PO Q4H PRN PRN Reason: FEVER OR PAIN Last Admin: 09/04/16 20:09 Dose: 650 mg Albuterol Sulfate (Ventolin Hfa Inhaler -) 2 puff IH Q12H PRN PRN Reason: ASTHMA Aspirin (Ecotrin -) 81 mg PO DAILY [facility] Last Admin: 09/05/16 09:01 Dose: 81 mg Atorvastatin Calcium (Lipitor -) 80 mg PO HS [facility] Last Admin: 09/04/16 21:59 Dose: 80 mg Brimonidine Tartrate (Alphagan 0.2% -) 2 drop OU DAILY [facility] Last Admin: 09/04/16 13:21 Dose: Not Given Budesonide/Formoterol Fumarate (Symbicort 80/4.5mcg -) 2 puff IH BID [facility] Last Admin: 09/04/16 22:03 Dose: Not Given Carvedilol (Coreg -) 12.5 mg PO BID [facility] Last Admin: 09/04/16 21:59 Dose: 12.5 mg Clonazepam (Klonopin -) 0.5 mg PO BID [facility] Last Admin: 09/05/16 09:01 Dose: 0.5 mg Clopidogrel Bisulfate (Plavix -) 75 mg PO DAILY [facility] Last Admin: 09/04/16 13:12 Dose: 75 mg Furosemide (Lasix -) 40 mg PO BIDLASIX [facility] Last Admin: 09/05/16 05:40 Dose: Not Given Hydralazine HCl (Apresoline -) 50 mg PO BID [facility] Last Admin: 09/04/16 21:59 Dose: 50 mg Insulin Aspart (Novolog Vial Sliding Scale -) 1 vial SQ TIDAC [facility] PRN Reason: Protocol Last Admin: 09/05/16 06:51 Dose: 4 unit Lidocaine/Prilocaine (Emla -) 1 applic TP DAILY [facility] Last Admin: 09/04/16 13:12 Dose: Not Given Non-Formulary Medication (Benzonatate [Benzonatate]) 100 mg PO TID PRN PRN Reason: COUGH Ondansetron HCl (Zofran -) 4 mg PO DAILY PRN PRN Reason: NAUSEA Polyethylene Glycol (Miralax (For Daily Use) -) 17 gm PO DAILY [facility] Last Admin: 09/04/16 13:19 Dose: 17 g Ranitidine HCl (Zantac -) 150 mg PO DAILY [facility] Last Admin: 09/05/16 09:01 Dose: 150 mg Senna/Docusate Sodium (Pericolace -) 2 tablet PO HS PRN PRN Reason: CONSTIPATION Last Admin: 09/04/16 22:45 Dose: 2 tablet Sevelamer Carbonate (Renvela -) 800 mg PO TIDCM [facility] Last Admin: 09/05/16 09:01 Dose: 800 mg Timolol Maleate (Timoptic 0.5%) 1 drop OU DAILY [facility] Last Admin: 09/04/16 13:21 Dose: Not Given Topiramate (Topamax -) 50 mg PO BID [facility] Last Admin: 09/04/16 21:59 Dose: 50 mg - Objective Vital Signs: Vital Signs Temperature 98.1 F 09/05/16 10:00 Pulse Rate 80 09/05/16 12:00 Respiratory Rate 18 09/05/16 12:00 Blood Pressure 126/60 09/05/16 12:00 O2 Sat by Pulse Oximetry (%) 98 09/05/16 09:00 Constitutional: Yes: Calm HENT: Yes: Atraumatic Neck: Yes: Supple Cardiovascular: Yes: S1, S2 Respiratory: Yes: CTA Bilaterally Gastrointestinal: Yes: Soft, Abdomen, Obese Genitourinary: Yes: WNL Edema: No Neurological: Yes: Oriented, Pre-Existing Deficit Psychiatric: Yes: Oriented Labs: CBC, BMP 09/04/16 09:40 09/04/16 09:40 Problem List - Problems (1) Diabetes Code(s): E11.9 - TYPE 2 DIABETES MELLITUS WITHOUT COMPLICATIONS Qualifiers: Diabetes mellitus type: type 2 Diabetes mellitus complication status: with kidney complications Diabetes mellitus complication detail: with chronic kidney disease 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 use: with mcfp use Chronic kidney disease stage: on chronic dialysis Qualified Code(s): E11.22 - Type 2 diabetes mellitus with diabetic chronic kidney disease ; N18.1 - Chronic kidney disease, stage 1; Z79.4 - FDC (current) use of insulin (2) ESRD (end stage renal disease) on dialysis Code(s): N18.6 - END STAGE RENAL DISEASE Z99.2 - DEPENDENCE ON RENAL DIALYSIS (3) Hypertension Code(s): I10 - ESSENTIAL (PRIMARY) HYPERTENSION Qualifiers: Hypertension type: essential hypertension Qualified Code(s): I10 - Essential (primary) hypertension (4) Ulcer of right foot due to type 2 diabetes mellitus Code(s): E11.621 - TYPE 2 DIABETES MELLITUS WITH FOOT ULCER L97.519 - NON-PRS CHRONIC ULCER OTH PRT RIGHT FOOT W UNSP SEVERITY (5) Anemia Code(s): D64.9 - ANEMIA, UNSPECIFIED Assessment/Plan Current Medications Generic Name Dose Route Start Last Admin Trade Name Freq PRN Reason Stop Dose Admin Acetaminophen 650 mg 09/04/16 09:35 09/04/16 20:09 Tylenol - PO 650 mg Q4H PRN Administration FEVER OR PAIN Albuterol Sulfate 2 puff 09/04/16 09:35 Ventolin Hfa Inhaler - IH Q12H PRN ASTHMA Aspirin 81 mg 09/04/16 10:00 09/05/16 09:01 Ecotrin - PO 81 mg DAILY MANDO Administration Atorvastatin Calcium 80 mg 09/04/16 22:00 09/04/16 21:59 Lipitor - PO 80 mg HS MANDO Administration Brimonidine Tartrate 2 drop 09/04/16 10:00 09/05/16 14:23 Alphagan 0.2% - OU 2 drop DAILY [facility]ANDO Administration Budesonide/Formoterol Fumarate 2 puff 09/04/16 10:00 09/04/16 22:03 Symbicort 80/4.5mcg - IH Not Given BID MANDO Carvedilol 12.5 mg 09/04/16 10:00 09/05/16 14:18 Coreg - PO 12.5 mg BID MANDO Administration Clonazepam 0.5 mg 09/04/16 10:00 09/05/16 09:01 Klonopin - PO 0.5 mg BID MANDO Administration Clopidogrel Bisulfate 75 mg 09/04/16 10:00 09/05/16 14:18 Plavix - PO 75 mg DAILY MANDO Administration Furosemide 40 mg 09/04/16 14:00 09/05/16 05:40 Lasix - PO Not Given BIDLASIX [facility]O Hydralazine HCl 50 mg 09/04/16 10:00 09/05/16 14:18 Apresoline - PO 50 mg BID MANDO Administration Insulin Aspart 1 vial 09/04/16 11:00 09/05/16 06:51 Novolog Vial Sliding Scale - SQ 4 unit TIDAC [facility]ANDO Administration Protocol Lidocaine/Prilocaine 1 applic 09/04/16 10:00 09/04/16 13:12 Emla - TP Not Given DAILY [facility]O Non-Formulary Medication 100 mg 09/04/16 09:26 Benzonatate [Benzonatate] PO TID PRN COUGH Ondansetron HCl 4 mg 09/04/16 09:35 Zofran - PO DAILY PRN NAUSEA Polyethylene Glycol 17 gm 09/04/16 10:00 09/05/16 14:24 Miralax (For Daily Use) - PO 17 g DAILY [facility]O Administration Ranitidine HCl 150 mg 09/04/16 10:00 09/05/16 09:01 Zantac - PO 150 mg DAILY [facility]O Administration Senna/Docusate Sodium 2 tablet 09/04/16 09:35 09/04/16 22:45 Pericolace - PO 2 tablet HS PRN Administration CONSTIPATION Sevelamer Carbonate 800 mg 09/04/16 12:00 09/05/16 09:01 Renvela - PO 800 mg TIDCM [facility]O Administration Timolol Maleate 1 drop 09/04/16 12:45 09/05/16 14:22 Timoptic 0.5% OU 1 drop DAILY [facility] Administration Topiramate 50 mg 09/04/16 10:00 09/05/16 14:18 Topamax - PO 50 mg BID [facility]ANDO Administration Impression 1. ESRD 2. CVA 3. DM 4. HLD 5. HTN 6. anemia 7. anxiety 8. infected right foot ulcer Plan - pt tolerated HD - follow up cultures - discussed with ID, no abx for now - pt will need follow up with ID and Podiatry - monitor blood pressure - renal diet - discussed plan with patient - will follow Dr Sharma
--- NOTE | 2016-09-05 16:05 | PN ---
Physical Exam: SUBJECTIVE: Patient seen and examined at bedside. No overnight events. No new complaints. Dialyzed today. Denies CP,DEJESUS,SOB, palpitations, abd. pain, N/V. OBJECTIVE: Vital Signs Period Temp Pulse Resp BP Sys/[place] Pulse Ox Last 24 Hr 97.7 F-98.9 F 74-88 18-18 95-161/46-94 98 GENERAL: Obese, Awake, alert, and fully oriented, in no acute distress. HEAD: Normal with no signs of trauma. LUNGS: CTAB No wheezes, and no crackles. No accessory muscle use. HEART: RRR, normal S1 and S2 without murmur, rub or gallop. ABDOMEN: obese Soft, nontender, not distended, normoactive bowel sounds, no guarding, no rebound, no masses. No hepatomegaly or splenomegaly. MUSCULOSKELETAL: Normal range of motion at all joints. No bony deformities or tenderness. No CVA tenderness. UPPER EXTREMITIES: 2+ pulses, warm, well-perfused. No cyanosis. No clubbing. No peripheral edema. LOWER EXTREMITIES: 2+ pulses, warm, well-perfused. No calf tenderness. No peripheral edema. Right foot plantar ulcer behind great toe 2x2cm, no pus, no drainage, edges soft, dose not probe to bone , on the doral aspect of the foot there is swelling Laboratory Results - last 24 hr 09/04/16 09/05/16 09/05/16 17:17 05:38 09:45 ESR 92 H POC Glucometer 227 230 Vitamin B12 Serum Folate Hepatitis C Antibody 09/05/16 09/05/16 09/05/16 09:45 09:45 14:21 ESR POC Glucometer 178 Vitamin B12 1054 H Serum Folate 24 H D Hepatitis C Antibody Cancelled Active Medications Generic Name Dose Route Start Last Admin Trade Name Freq PRN Reason Stop Dose Admin Acetaminophen 650 mg 09/04/16 09:35 09/04/16 20:09 Tylenol - PO 650 mg Q4H PRN Administration FEVER OR PAIN Albuterol Sulfate 2 puff 09/04/16 09:35 Ventolin Hfa Inhaler - IH Q12H PRN ASTHMA Aspirin 81 mg 09/04/16 10:00 09/05/16 09:01 Ecotrin - PO 81 mg DAILY [facility] Administration Atorvastatin Calcium 80 mg 09/04/16 22:00 09/04/16 21:59 Lipitor - PO 80 mg HS [facility]O Administration Brimonidine Tartrate 2 drop 09/04/16 10:00 09/05/16 14:23 Alphagan 0.2% - OU 2 drop DAILY [facility] Administration Budesonide/Formoterol Fumarate 2 puff 09/04/16 10:00 09/05/16 11:30 Symbicort 80/4.5mcg - IH Not Given BID [facility]O Carvedilol 12.5 mg 09/04/16 10:00 09/05/16 14:18 Coreg - PO 12.5 mg BID [facility]O Administration Clonazepam 0.5 mg 09/04/16 10:00 09/05/16 09:01 Klonopin - PO 0.5 mg BID [facility]O Administration Clopidogrel Bisulfate 75 mg 09/04/16 10:00 09/05/16 14:18 Plavix - PO 75 mg DAILY [facility] Administration Furosemide 40 mg 09/04/16 14:00 09/05/16 05:40 Lasix - PO Not Given BIDLASIX [facility] Hydralazine HCl 50 mg 09/04/16 10:00 09/05/16 14:18 Apresoline - PO 50 mg BID [facility]ANDO Administration Insulin Aspart 1 vial 09/04/16 11:00 09/05/16 06:51 Novolog Vial Sliding Scale - SQ 4 unit TIDAC [facility] Administration Protocol Lidocaine/Prilocaine 1 applic 09/04/16 10:00 09/05/16 11:30 Emla - TP Not Given DAILY [facility] Non-Formulary Medication 100 mg 09/04/16 09:26 Benzonatate [Benzonatate] PO TID PRN COUGH Ondansetron HCl 4 mg 09/04/16 09:35 Zofran - PO DAILY PRN NAUSEA Polyethylene Glycol 17 gm 09/04/16 10:00 09/05/16 14:24 Miralax (For Daily Use) - PO 17 g DAILY [facility] Administration Ranitidine HCl 150 mg 09/04/16 10:00 09/05/16 09:01 Zantac - PO 150 mg DAILY [facility] Administration Senna/Docusate Sodium 2 tablet 09/04/16 09:35 09/04/16 22:45 Pericolace - PO 2 tablet HS PRN Administration CONSTIPATION Sevelamer Carbonate 800 mg 09/04/16 12:00 09/05/16 12:30 Renvela - PO Not Given TIDCM [facility] Timolol Maleate 1 drop 09/04/16 12:45 09/05/16 14:22 Timoptic 0.5% OU 1 drop DAILY [facility] Administration Topiramate 50 mg 09/04/16 10:00 09/05/16 14:18 Topamax - PO 50 mg BID [facility] Administration ASSESSMENT/PLAN: 50 yo F with a PMHx of cva (08/10), IDDM, ESRD (MWF), history of MSSA+ osteomylitis of left foot, presents with worsening right foot ulcer. Admitted for IV antibiotics, rule out osteomyelitis. Problem List - Problems (1) Ulcer of right foot due to type 2 diabetes mellitus Assessment/Plan: * MRI and bone biopsy results pending * Gram stain (-) * Seen by ID felt to be chronic Osteo as opposed to new infection * Will hold antibiotics for now * Repeat AM labs including ESR (2) Diabetes Assessment/Plan: * Hgb A1C 9.9 * ADA diet * BGM ACHS * ISS ACHS (3) ESRD (end stage renal disease) Assessment/Plan: * Dialysis MWF * Dr. Sharma is following * Avoid nephrotoxins. * Renal dose meds Code(s): N18.6 - END STAGE RENAL DISEASE (4) Hypertension Assessment/Plan: * Continue Carvedilol 12.5 mg PO BID * Lasix 40mg PO daily * Hydralazine 50 mg PO BID (5) Hyperlipemia Assessment/Plan: * Continue Liptor 80mg PO HS (6) H/O: CVA (cerebrovascular accident) Assessment/Plan: * Continue ASA and Plavix (7) Asthma Assessment/Plan: * Symbicort 2 puff BID * Albuterol INH prn. (8) Diabetic retinopathy Assessment/Plan: * Continue * Brimonidine Tartrate (Alphagan 0.2% -) 2 drop OU DAILY * Timolol Maleate (Timoptic 0.5%) 1 drop OU DAILY (9) Migraine Assessment/Plan: * Continue Topiramate. 50mg BID Visit type - Emergency Visit Emergency Visit: Yes ED Registration Date: 09/02/16 Care time: The patient presented to the Emergency Department on the above date and was hospitalized for further evaluation of their emergent condition. - New Patient This patient is new to me today: Yes Date on this admission: 09/05/16 - Critical Care Critical Care patient: No
[2016-09-05] MEDS ORDERED: PARICALCITOL 5 MCG/ML VIAL IVPUSH ONE (16:46)
--- NOTE | 2016-09-05 20:41 | PN ---
Teaching Attending Note Name of Resident: Braydon Felipe ATTENDING PHYSICIAN STATEMENT I saw and evaluated the patient. I reviewed the resident's note and discussed the case with the resident. I agree with the resident's findings and plan as documented. SUBJECTIVE: Patient is feeling weak on the left side. OBJECTIVE: Vital Signs Temperature 99.0 F 09/05/16 19:04 Pulse Rate 84 09/05/16 19:04 Respiratory Rate 18 09/05/16 19:04 Blood Pressure 149/78 09/05/16 19:04 O2 Sat by Pulse Oximetry (%) 98 09/05/16 09:00 CBCD WBC 7.9 K/mm3 (4.0-10.0) 09/04/16 09:40 RBC 2.90 M/mm3 (3.60-5.2) L 09/04/16 09:40 Hgb 9.9 GM/dL (10.7-15.3) L 09/04/16 09:40 Hct 30.2 % (32.4-45.2) L 09/04/16 09:40 MCV 103.9 fl (80-96) H 09/04/16 09:40 MCHC 32.8 g/dl (32.0-36.0) 09/04/16 09:40 RDW 13.6 % (11.6-15.6) 09/04/16 09:40 Plt Count 167 K/MM3 (134-434) 09/04/16 09:40 MPV 9.1 fl (7.5-11.1) 09/04/16 09:40 CMP Sodium 135 mmol/L (136-145) L 09/04/16 09:40 Potassium 4.4 mmol/L (3.5-5.1) 09/04/16 09:40 Chloride 97 mmol/L (98-107) L 09/04/16 09:40 Carbon Dioxide 24 mmol/L (21-32) 09/04/16 09:40 Anion Gap 14 (8-16) 09/04/16 09:40 BUN 46 mg/dL (7-18) H D 09/04/16 09:40 Creatinine 10.0 mg/dL (0.55-1.02) H* D 09/04/16 09:40 Creat Clearance w eGFR 4.13 (>60) 09/04/16 09:40 Random Glucose 251 mg/dL (74-106) H D 09/04/16 09:40 Calcium 9.0 mg/dL (8.5-10.1) 09/04/16 09:40 Total Bilirubin 0.4 mg/dL (0.2-1.0) 09/04/16 09:40 AST 20 U/L (15-37) 09/04/16 09:40 ALT 20 U/L (12-78) 09/04/16 09:40 Alkaline Phosphatase 79 U/L (45-117) 09/04/16 09:40 Total Protein 6.9 g/dl (6.4-8.2) 09/04/16 09:40 Albumin 3.4 g/dl (3.4-5.0) 09/04/16 09:40 Current Medications Generic Name Dose Route Start Last Admin Trade Name Freq PRN Reason Stop Dose Admin Acetaminophen 650 mg 09/04/16 09:35 09/04/16 20:09 Tylenol - PO 650 mg Q4H PRN Administration FEVER OR PAIN Albuterol Sulfate 2 puff 09/04/16 09:35 Ventolin Hfa Inhaler - IH Q12H PRN ASTHMA Aspirin 81 mg 09/04/16 10:00 09/05/16 09:01 Ecotrin - PO 81 mg DAILY MANDO Administration Atorvastatin Calcium 80 mg 09/04/16 22:00 09/04/16 21:59 Lipitor - PO 80 mg HS MANDO Administration Brimonidine Tartrate 2 drop 09/04/16 10:00 09/05/16 14:23 Alphagan 0.2% - OU 2 drop DAILY MANDO Administration Budesonide/Formoterol Fumarate 2 puff 09/04/16 10:00 09/05/16 11:30 Symbicort 80/4.5mcg - IH Not Given BID MNADO Carvedilol 12.5 mg 09/04/16 10:00 09/05/16 14:18 Coreg - PO 12.5 mg BID MANDO Administration Clonazepam 0.5 mg 09/04/16 10:00 09/05/16 09:01 Klonopin - PO 0.5 mg BID MANDO Administration Clopidogrel Bisulfate 75 mg 09/04/16 10:00 09/05/16 14:18 Plavix - PO 75 mg DAILY MANDO Administration Furosemide 40 mg 09/04/16 14:00 09/05/16 17:28 Lasix - PO Not Given BIDLASIX MANDO Hydralazine HCl 50 mg 09/04/16 10:00 09/05/16 14:18 Apresoline - PO 50 mg BID MANDO Administration Insulin Aspart 1 vial 09/04/16 11:00 09/05/16 17:28 Novolog Vial Sliding Scale - SQ 8 unit TIDAC MANDO Administration Protocol Lidocaine/Prilocaine 1 applic 09/04/16 10:00 09/05/16 11:30 Emla - TP Not Given DAILY [facility] Non-Formulary Medication 100 mg 09/04/16 09:26 Benzonatate [Benzonatate] PO TID PRN COUGH Ondansetron HCl 4 mg 09/04/16 09:35 Zofran - PO DAILY PRN NAUSEA Polyethylene Glycol 17 gm 09/04/16 10:00 09/05/16 14:24 Miralax (For Daily Use) - PO 17 g DAILY MANDO Administration Ranitidine HCl 150 mg 09/04/16 10:00 09/05/16 09:01 Zantac - PO 150 mg DAILY MANDO Administration Senna/Docusate Sodium 2 tablet 09/04/16 09:35 09/04/16 22:45 Pericolace - PO 2 tablet HS PRN Administration CONSTIPATION Sevelamer Carbonate 800 mg 09/04/16 12:00 09/05/16 17:28 Renvela - PO 800 mg TIDCM MANDO Administration Timolol Maleate 1 drop 09/04/16 12:45 09/05/16 14:22 Timoptic 0.5% OU 1 drop DAILY MANDO Administration Topiramate 50 mg 09/04/16 10:00 09/05/16 14:18 Topamax - PO 50 mg BID MANDO Administration Home Medications Medication Instructions Recorded Albuterol Sulfate Inhaler - 2 inh PO BID PRN 08/03/16 [Ventolin HFA Inhaler -] Atorvastatin Ca [Lipitor] 80 mg PO HS 08/03/16 Benzonatate 100 mg PO TID PRN 08/03/16 Bisacodyl [Laxative] 10 mg PO BID PRN 08/03/16 Brimonidine Tartrate/Timolol 2 drop OU DAILY 08/03/16 [Combigan 0.2%-0.5% Eye Drops] Carvedilol [Coreg -] 12.5 mg PO BID 08/03/16 Clonazepam [Klonopin -] 0.5 mg PO BID 08/03/16 Diphenhydramine [Benadryl Capsule 50 mg PO PRN PRN 08/03/16 -] Famotidine [Pepcid -] 20 mg PO DAILY 08/03/16 Furosemide [Lasix] 40 mg PO BID 08/03/16 Insulin Aspart [Novolog] 100 unit SQ ACHS 08/03/16 Lidocaine/Prilocaine Cream 1 applic TP PRN PRN 08/03/16 [Lidocaine-Prilocaine Cream -] Metoclopramide HCl [Reglan] 10 mg PO TID PRN 08/03/16 Mometasone/Formoterol [Dulera 100 2 inh IH BID PRN 08/03/16 Mcg/5 Mcg Inhaler] Ondansetron [Zofran -] 4 mg PO DAILY PRN 08/03/16 Sennosides [Senna] 2 tab PO DAILY 08/03/16 Aspirin Coated [Ecotrin -] 81 mg PO DAILY #30 tab 08/06/16 Hydralazine HCl [Apresoline -] 50 mg PO BID tablet 08/06/16 Clopidogrel Bisulfate [Plavix -] 75 mg PO DAILY 08/26/16 09/02/16 16:50 Blood - Peripheral Venous Blood Culture - Preliminary NO GROWTH OBTAINED AFTER 24 HOURS, INCUBATION TO CONTINUE FOR 4 DAYS. Right Foot XRAY Interval moderate osteoarthritic changes involving the first metatarsophalangeal joint. There is soft tissue swelling around the first toe as well as around the base of the third toe. There is also soft tissue swelling , dorsally. No soft tissue air is identified. Correlate clinically and further evaluation with MRI of the right foot would be the study of choice to rule out osteomyelitis. ASSESSMENT/PLAN: This is a 50 year old female with a past medical history of cva (08/10), IDDM, ESRD (MWF), history of MSSA+ osteomylitis of left foot, presents with worsening right foot ulcer. Admitted for IV antibiotics, rule out osteomyelitis. #Acute diabetic of right foot ulcer ; MRI and bone biopsy done today results pending to r/o Osteomeyelitis .Patient was treated for 6 weeks of IV antibiotic for her left foot. no leukocytosis, afebrile, given one dose of linezolid due to hx of MSSA; and patient allergic to vancomycin. Past wound culture of right foot positive for stenotrophomon X Maltophila; ent fecalis; staph aureus ,blood culture pending ,ESR elevated, crp pending, f/u MRI, betadine dressing , no weight bearing on right foot, Podiatry & ID consulted #Hx of CVA with residual left sided arm weakness, cont 81mg ASA po qd & plavix 75mg po daily. #ESRD: MWF nephrology consulted for dialysis #IDDM:insulin SS; BGM, hemoglobin A1C #HTN: cont carvedilol 12.5 po bid, lasix 40mg po daily #HLD: atorvastatin 80mg po HS qd #asthma: on albuterol inhaler 2 puff bid prn, symbicort 2 puff bid #diabetic retinopathy: cont home med eye drops' brimoonidine tartrate/timolol 2 drops OU daily VTE prophylaxis: one time heparin given due to patient going to a bone biopsy in the am; In the past patient had a retinal bleed and was not able to use heparin. As per patient , can use heparin now as per patient
[2016-09-05] MEDS: ATORVASTATIN CA 80 MG TABLET (FP) PO SCH (22:05)
[2016-09-05] MEDS: SENNOSIDES/DOCUSATE COMBO (SENNA PLUS) TABLET (UD) PO PRN (22:22)
[2016-09-05] MEDS ORDERED: INSULIN SLIDING SCALE (NOVOLOG) 1 VIAL SQ ONE (23:00)
[2016-09-05] MEDS ORDERED: diphenhydrAMINE HCL 25 MG CAPSULE (FP) PO ONE (23:26)
[2016-09-06 06:06] LABS: HEP B SURFACE AB Reactive (.)
[2016-09-06] MEDS: FUROSEMIDE 40 MG TABLET (FP) PO SCH ×2 (06:06→14:14)
[2016-09-06] MEDS: INSULIN SLIDING SCALE (NOVOLOG) 1 VIAL SQ SCH ×3 (06:06→17:22)
[2016-09-06] MEDS: ACETAMINOPHEN 325 MG TABLET (FP) PO PRN (06:23)
--- NOTE | 2016-09-06 08:41 | FALL ---
Fall Exam - Event Witnessed fall: No Location of Fall: Patient Room Fall from: Bed - Pre-Fall Fall Risk: High Risk Mental Status: Alert, Oriented, Cooperative Current Medications: Current Medications Generic Name Dose Route Start Last Admin Trade Name Freq PRN Reason Stop Dose Admin Acetaminophen 650 mg 09/04/16 09:35 09/06/16 06:23 Tylenol - PO 650 mg Q4H PRN Administration FEVER OR PAIN Albuterol Sulfate 2 puff 09/04/16 09:35 Ventolin Hfa Inhaler - IH Q12H PRN ASTHMA Aspirin 81 mg 09/04/16 10:00 09/05/16 09:01 Ecotrin - PO 81 mg DAILY MANDO Administration Atorvastatin Calcium 80 mg 09/04/16 22:00 09/05/16 22:05 Lipitor - PO 80 mg HS MANDO Administration Bacitracin 1 applic 09/06/16 10:00 Bacitracin - TP DAILY MANDO Brimonidine Tartrate 2 drop 09/04/16 10:00 09/05/16 14:23 Alphagan 0.2% - OU 2 drop DAILY MANDO Administration Budesonide/Formoterol Fumarate 2 puff 09/04/16 10:00 09/05/16 22:06 Symbicort 80/4.5mcg - IH Not Given BID MANDO Carvedilol 12.5 mg 09/04/16 10:00 09/05/16 22:05 Coreg - PO 12.5 mg BID MANDO Administration Clonazepam 0.5 mg 09/04/16 10:00 09/05/16 22:05 Klonopin - PO 0.5 mg BID MANDO Administration Clopidogrel Bisulfate 75 mg 09/04/16 10:00 09/05/16 14:18 Plavix - PO 75 mg DAILY MANDO Administration Furosemide 40 mg 09/04/16 14:00 09/06/16 06:06 Lasix - PO 40 mg BIDLASIX MANDO Administration Hydralazine HCl 50 mg 09/04/16 10:00 09/05/16 22:05 Apresoline - PO 50 mg BID MANDO Administration Insulin Aspart 1 vial 09/04/16 11:00 09/06/16 06:06 Novolog Vial Sliding Scale - SQ 2 unit TIDAC MANDO Administration Protocol Lidocaine/Prilocaine 1 applic 09/04/16 10:00 09/05/16 11:30 Emla - TP Not Given DAILY [facility]ANDO Non-Formulary Medication 100 mg 09/04/16 09:26 Benzonatate [Benzonatate] PO TID PRN COUGH Ondansetron HCl 4 mg 09/04/16 09:35 Zofran - PO DAILY PRN NAUSEA Polyethylene Glycol 17 gm 09/04/16 10:00 09/05/16 14:24 Miralax (For Daily Use) - PO 17 g DAILY MANDO Administration Ranitidine HCl 150 mg 09/04/16 10:00 09/05/16 09:01 Zantac - PO 150 mg DAILY MANDO Administration Senna/Docusate Sodium 2 tablet 09/04/16 09:35 09/05/16 22:22 Pericolace - PO 2 tablet HS PRN Administration CONSTIPATION Sevelamer Carbonate 800 mg 09/04/16 12:00 09/05/16 17:28 Renvela - PO 800 mg TIDCM MANDO Administration Timolol Maleate 1 drop 09/04/16 12:45 09/05/16 14:22 Timoptic 0.5% OU 1 drop DAILY MANDO Administration Topiramate 50 mg 09/04/16 10:00 09/05/16 22:05 Topamax - PO 50 mg BID MANDO Administration - Post-Fall Patient Outcome: No Injury Treatment: None Vital Signs: Vital Signs Temperature 98.4 F 09/06/16 07:00 Pulse Rate 79 09/06/16 07:00 Respiratory Rate 18 09/06/16 07:00 Blood Pressure 137/75 09/06/16 07:00 O2 Sat by Pulse Oximetry (%) 98 09/05/16 21:00 LOC Post-Fall: Awake, Alert, Oriented Identify factors for HIGH RISK for Head Injury: Pt on anticoagulant, Known to have hit head
--- NOTE | 2016-09-06 10:34 | PATH ---
Surgical Pathology Report Patient Name: LEONIE DANG Med. Rec. #: [id number] /Age/Gender: 1965 (Age: 50) / F Account: [id number] Location: [facility] MED/SURG Taken: 09/02/2016 Received: 09/05/2016 Reported: 09/06/2016 Physicians: Quan Menendez M.D. Specimen(s) Received BONE OF RIGHT HALLUX BONE BIOPSY Clinical History Osteomyelitis of right hallux Final Diagnosis BONE, RIGHT HALLUX, BIOPSY: BONE WITH FOCAL REACTIVE CHANGES. NO OSTEOMYELITIS IDENTIFIED. Electronically Signed Enrique Mcclellan M.D. Gross Description Received in formalin labeled "bone of right hallux bone biopsy," is a 5 cm in length x 0.3 cm in diameter reyes, cylindrical portion of bone. The specimen is submitted in toto in one cassette, following decalcification. /09/05/201609/05/2016
[2016-09-06] MEDS ORDERED: PT OWN MED DRAWER 7, Y5N ONE ×2 (10:42→21:06)
[2016-09-06] MEDS: CLOPIDOGREL BISULFATE 75 MG TABLET (FP) PO SCH (10:55)
[2016-09-06] MEDS: SEVELAMER CARBONATE 800 MG TAB (FP) PO SCH ×3 (10:55→17:22)
[2016-09-06] MEDS: TOPIRAMATE 25 MG TABLET (FP) PO SCH ×2 (10:55→21:49)
[2016-09-06] MEDS: RANITIDINE HCL 150 MG TABLET (FP) PO SCH (10:56)
[2016-09-06] MEDS: ASPIRIN COATED 81 MG TABLET.EC PO SCH (10:56)
[2016-09-06] MEDS: BACITRACIN 30 GM TUBE TOPICAL OINTMENT TP SCH (10:56)
[2016-09-06] MEDS: clonazePAM 0.5 MG TABLET PO SCH ×2 (10:56→21:48)
[2016-09-06] MEDS: CARVEDILOL 12.5 MG TABLET (FP) PO SCH ×2 (10:56→21:48)
[2016-09-06] MEDS: hydrALAZINE HCL 50 MG TABLET (FP) PO SCH ×2 (10:56→21:48)
[2016-09-06] MEDS: BUDESONIDE/FORMETEROL FUMARATE 80/4.5 mcg INHALER IH SCH ×2 (13:41→21:48)
--- NOTE | 2016-09-06 14:26 | PN ---
Progress Note, Physician History of Present Illness: Pt seen and examined at bedside. She is awake and alert. She fell down this morning. She denies chest pain or shortness of breath. - Current Medication List Current Medications: Active Medications Acetaminophen (Tylenol -) 650 mg PO Q4H PRN PRN Reason: FEVER OR PAIN Last Admin: 09/06/16 06:23 Dose: 650 mg Albuterol Sulfate (Ventolin Hfa Inhaler -) 2 puff IH Q12H PRN PRN Reason: ASTHMA Aspirin (Ecotrin -) 81 mg PO DAILY [facility] Last Admin: 09/06/16 10:56 Dose: 81 mg Atorvastatin Calcium (Lipitor -) 80 mg PO HS [facility] Last Admin: 09/05/16 22:05 Dose: 80 mg Bacitracin (Bacitracin -) 1 applic TP DAILY [facility] Last Admin: 09/06/16 10:56 Dose: 1 applic Brimonidine Tartrate (Alphagan 0.2% -) 2 drop OU DAILY [facility] Last Admin: 09/05/16 14:23 Dose: 2 drop Budesonide/Formoterol Fumarate (Symbicort 80/4.5mcg -) 2 puff IH BID [facility] Last Admin: 09/06/16 13:41 Dose: Not Given Carvedilol (Coreg -) 12.5 mg PO BID [facility] Last Admin: 09/06/16 10:56 Dose: 12.5 mg Clonazepam (Klonopin -) 0.5 mg PO BID [facility] Last Admin: 09/06/16 10:56 Dose: 0.5 mg Clopidogrel Bisulfate (Plavix -) 75 mg PO DAILY [facility] Last Admin: 09/06/16 10:55 Dose: 75 mg Furosemide (Lasix -) 40 mg PO BIDLASIX [facility] Last Admin: 09/06/16 14:14 Dose: 40 mg Hydralazine HCl (Apresoline -) 50 mg PO BID [facility] Last Admin: 09/06/16 10:56 Dose: 50 mg Insulin Aspart (Novolog Vial Sliding Scale -) 1 vial SQ TIDAC [facility] PRN Reason: Protocol Last Admin: 09/06/16 13:10 Dose: 4 unit Lidocaine/Prilocaine (Emla -) 1 applic TP DAILY [facility] Last Admin: 09/05/16 11:30 Dose: Not Given Ondansetron HCl (Zofran -) 4 mg PO DAILY PRN PRN Reason: NAUSEA Polyethylene Glycol (Miralax (For Daily Use) -) 17 gm PO DAILY [facility] Last Admin: 09/05/16 14:24 Dose: 17 g Ranitidine HCl (Zantac -) 150 mg PO DAILY [facility] Last Admin: 09/06/16 10:56 Dose: 150 mg Senna/Docusate Sodium (Pericolace -) 2 tablet PO HS PRN PRN Reason: CONSTIPATION Last Admin: 09/05/16 22:22 Dose: 2 tablet Sevelamer Carbonate (Renvela -) 800 mg PO TIDCM [facility] Last Admin: 09/06/16 14:14 Dose: 800 mg Timolol Maleate (Timoptic 0.5%) 1 drop OU DAILY [facility] Last Admin: 09/05/16 14:22 Dose: 1 drop Topiramate (Topamax -) 50 mg PO BID [facility] Last Admin: 09/06/16 10:55 Dose: 50 mg - Objective Vital Signs: Vital Signs Temperature 97.7 F 09/06/16 13:00 Pulse Rate 83 09/06/16 13:00 Respiratory Rate 20 09/06/16 13:00 Blood Pressure 117/70 09/06/16 13:00 O2 Sat by Pulse Oximetry (%) 98 09/06/16 09:00 Constitutional: Yes: Calm Cardiovascular: Yes: S1, S2 Respiratory: Yes: CTA Bilaterally Gastrointestinal: Yes: Soft, Abdomen, Obese Genitourinary: Yes: WNL Musculoskeletal: Yes: Other (left arm weakness) Edema: Yes Edema: LLE: Trace, RLE: Trace Neurological: Yes: Oriented, Pre-Existing Deficit Psychiatric: Yes: Oriented Labs: CBC, BMP 09/04/16 09:40 09/05/16 09:45 - ....Imaging Cat Scan: Report Reviewed MRI: Report Reviewed Problem List - Problems (1) Diabetes Code(s): E11.9 - TYPE 2 DIABETES MELLITUS WITHOUT COMPLICATIONS Qualifiers: Diabetes mellitus type: type 2 Diabetes mellitus complication status: with kidney complications Diabetes mellitus complication detail: with chronic kidney disease Diabetes mellitus shelter insulin use: with shelter use Chronic kidney disease stage: on chronic dialysis Qualified Code(s): E11.22 - Type 2 diabetes mellitus with diabetic chronic kidney disease ; N18.1 - Chronic kidney disease, stage 1; Z79.4 - half-way (current) use of insulin (2) ESRD (end stage renal disease) on dialysis Code(s): N18.6 - END STAGE RENAL DISEASE Z99.2 - DEPENDENCE ON RENAL DIALYSIS (3) Hypertension Code(s): I10 - ESSENTIAL (PRIMARY) HYPERTENSION Qualifiers: Hypertension type: essential hypertension Qualified Code(s): I10 - Essential (primary) hypertension (4) Ulcer of right foot due to type 2 diabetes mellitus Code(s): E11.621 - TYPE 2 DIABETES MELLITUS WITH FOOT ULCER L97.519 - NON-PRS CHRONIC ULCER OTH PRT RIGHT FOOT W UNSP SEVERITY (5) Anemia Code(s): D64.9 - ANEMIA, UNSPECIFIED Assessment/Plan Current Medications Generic Name Dose Route Start Last Admin Trade Name Freq PRN Reason Stop Dose Admin Acetaminophen 650 mg 09/04/16 09:35 09/06/16 06:23 Tylenol - PO 650 mg Q4H PRN Administration FEVER OR PAIN Albuterol Sulfate 2 puff 09/04/16 09:35 Ventolin Hfa Inhaler - IH Q12H PRN ASTHMA Aspirin 81 mg 09/04/16 10:00 09/06/16 10:56 Ecotrin - PO 81 mg DAILY MANDO Administration Atorvastatin Calcium 80 mg 09/04/16 22:00 09/05/16 22:05 Lipitor - PO 80 mg HS MANDO Administration Bacitracin 1 applic 09/06/16 10:00 09/06/16 10:56 Bacitracin - TP 1 applic DAILY MANDO Administration Brimonidine Tartrate 2 drop 09/04/16 10:00 09/05/16 14:23 Alphagan 0.2% - OU 2 drop DAILY MANDO Administration Budesonide/Formoterol Fumarate 2 puff 09/04/16 10:00 09/06/16 13:41 Symbicort 80/4.5mcg - IH Not Given BID MANDO Carvedilol 12.5 mg 09/04/16 10:00 09/06/16 10:56 Coreg - PO 12.5 mg BID MANDO Administration Clonazepam 0.5 mg 09/04/16 10:00 09/06/16 10:56 Klonopin - PO 0.5 mg BID MANDO Administration Clopidogrel Bisulfate 75 mg 09/04/16 10:00 09/06/16 10:55 Plavix - PO 75 mg DAILY MANDO Administration Furosemide 40 mg 09/04/16 14:00 09/06/16 14:14 Lasix - PO 40 mg BIDLASIX MANDO Administration Hydralazine HCl 50 mg 09/04/16 10:00 09/06/16 10:56 Apresoline - PO 50 mg BID MANDO Administration Insulin Aspart 1 vial 09/04/16 11:00 09/06/16 13:10 Novolog Vial Sliding Scale - SQ 4 unit TIDAC MANDO Administration Protocol Lidocaine/Prilocaine 1 applic 09/04/16 10:00 09/05/16 11:30 Emla - TP Not Given DAILY [facility]O Ondansetron HCl 4 mg 09/04/16 09:35 Zofran - PO DAILY PRN NAUSEA Polyethylene Glycol 17 gm 09/04/16 10:00 09/05/16 14:24 Miralax (For Daily Use) - PO 17 g DAILY [facility]ANDO Administration Ranitidine HCl 150 mg 09/04/16 10:00 09/06/16 10:56 Zantac - PO 150 mg DAILY MANDO Administration Senna/Docusate Sodium 2 tablet 09/04/16 09:35 09/05/16 22:22 Pericolace - PO 2 tablet HS PRN Administration CONSTIPATION Sevelamer Carbonate 800 mg 09/04/16 12:00 09/06/16 14:14 Renvela - PO 800 mg TIDCM MANDO Administration Timolol Maleate 1 drop 09/04/16 12:45 09/05/16 14:22 Timoptic 0.5% OU 1 drop DAILY [facility]O Administration Topiramate 50 mg 09/04/16 10:00 09/06/16 10:55 Topamax - PO 50 mg BID MANDO Administration Impression 1. ESRD 2. CVA 3. DM 4. HLD 5. HTN 6. anemia 7. anxiety 8. infected right foot ulcer Plan - HD in am - neuro follow up for MRI findings - no bleed on ct scan - will order pre-HD labs - follow up cultures - pt will need follow up with ID and Podiatry - monitor blood pressure - renal diet - will follow Dr Sharma
[2016-09-06] MEDS: POLYETHYLENE GLYCOL 3350 119 GM BTL PO SCH (15:08)
[2016-09-06] MEDS: BRIMONIDINE TARTRATE 0.2% OPHTHALMIC 5 ML BOTTLE OU SCH (16:38)
[2016-09-06] MEDS: TIMOLOL 0.5% OPHTHALMIC SOL 5 ML BOTTLE OU SCH (16:38)
[2016-09-06] MEDS: LIDOCAINE 2.5%/PRILOCAINE 2.5% (5 Gram/TUBE) TP SCH (17:23)
--- NOTE | 2016-09-06 20:39 | PN ---
Teaching Attending Note Name of Resident: Braydon Felipe ATTENDING PHYSICIAN STATEMENT I saw and evaluated the patient. I reviewed the resident's note and discussed the case with the resident. I agree with the resident's findings and plan as documented. SUBJECTIVE: She is awake and alert. She fell down this morning. She denies chest pain or shortness of breath. OBJECTIVE: Vital Signs Temperature 98.9 F 09/06/16 19:00 Pulse Rate 83 09/06/16 19:00 Respiratory Rate 20 09/06/16 19:00 Blood Pressure 138/75 09/06/16 19:00 O2 Sat by Pulse Oximetry (%) 97 09/06/16 17:20 CBCD WBC 7.9 K/mm3 (4.0-10.0) 09/04/16 09:40 RBC 2.90 M/mm3 (3.60-5.2) L 09/04/16 09:40 Hgb 9.9 GM/dL (10.7-15.3) L 09/04/16 09:40 Hct 30.2 % (32.4-45.2) L 09/04/16 09:40 MCV 103.9 fl (80-96) H 09/04/16 09:40 MCHC 32.8 g/dl (32.0-36.0) 09/04/16 09:40 RDW 13.6 % (11.6-15.6) 09/04/16 09:40 Plt Count 167 K/MM3 (134-434) 09/04/16 09:40 MPV 9.1 fl (7.5-11.1) 09/04/16 09:40 CMP Sodium 135 mmol/L (136-145) L 09/04/16 09:40 Potassium 4.4 mmol/L (3.5-5.1) 09/04/16 09:40 Chloride 97 mmol/L (98-107) L 09/04/16 09:40 Carbon Dioxide 24 mmol/L (21-32) 09/04/16 09:40 Anion Gap 14 (8-16) 09/04/16 09:40 BUN 46 mg/dL (7-18) H D 09/04/16 09:40 Creatinine 10.0 mg/dL (0.55-1.02) H* D 09/04/16 09:40 Creat Clearance w eGFR 4.13 (>60) 09/04/16 09:40 Random Glucose 251 mg/dL (74-106) H D 09/04/16 09:40 Calcium 9.0 mg/dL (8.5-10.1) 09/04/16 09:40 Total Bilirubin 0.4 mg/dL (0.2-1.0) 09/04/16 09:40 AST 20 U/L (15-37) 09/04/16 09:40 ALT 20 U/L (12-78) 09/04/16 09:40 Alkaline Phosphatase 79 U/L (45-117) 09/04/16 09:40 Total Protein 6.9 g/dl (6.4-8.2) 09/04/16 09:40 Albumin 3.4 g/dl (3.4-5.0) 09/04/16 09:40 Current Medications Generic Name Dose Route Start Last Admin Trade Name Freq PRN Reason Stop Dose Admin Acetaminophen 650 mg 09/04/16 09:35 09/06/16 06:23 Tylenol - PO 650 mg Q4H PRN Administration FEVER OR PAIN Albuterol Sulfate 2 puff 09/04/16 09:35 Ventolin Hfa Inhaler - IH Q12H PRN ASTHMA Aspirin 81 mg 09/04/16 10:00 09/06/16 10:56 Ecotrin - PO 81 mg DAILY MANDO Administration Atorvastatin Calcium 80 mg 09/04/16 22:00 09/05/16 22:05 Lipitor - PO 80 mg HS MANDO Administration Bacitracin 1 applic 09/06/16 10:00 09/06/16 10:56 Bacitracin - TP 1 applic DAILY MANDO Administration Brimonidine Tartrate 2 drop 09/04/16 10:00 09/06/16 16:38 Alphagan 0.2% - OU Not Given DAILY MANDO Budesonide/Formoterol Fumarate 2 puff 09/04/16 10:00 09/06/16 13:41 Symbicort 80/4.5mcg - IH Not Given BID MANDO Carvedilol 12.5 mg 09/04/16 10:00 09/06/16 10:56 Coreg - PO 12.5 mg BID MANDO Administration Clonazepam 0.5 mg 09/04/16 10:00 09/06/16 10:56 Klonopin - PO 0.5 mg BID MANDO Administration Clopidogrel Bisulfate 75 mg 09/04/16 10:00 09/06/16 10:55 Plavix - PO 75 mg DAILY MANDO Administration Furosemide 40 mg 09/04/16 14:00 09/06/16 14:14 Lasix - PO 40 mg BIDLASIX MANDO Administration Hydralazine HCl 50 mg 09/04/16 10:00 09/06/16 10:56 Apresoline - PO 50 mg BID MANDO Administration Insulin Aspart 1 vial 09/04/16 11:00 09/06/16 17:22 Novolog Vial Sliding Scale - SQ 4 unit TIDAC MANDO Administration Protocol Lidocaine/Prilocaine 1 applic 09/04/16 10:00 09/06/16 17:23 Emla - TP Not Given DAILY MANDO Ondansetron HCl 4 mg 09/04/16 09:35 Zofran - PO DAILY PRN NAUSEA Polyethylene Glycol 17 gm 09/04/16 10:00 09/06/16 15:08 Miralax (For Daily Use) - PO 17 g DAILY MANDO Administration Ranitidine HCl 150 mg 09/04/16 10:00 09/06/16 10:56 Zantac - PO 150 mg DAILY MANDO Administration Senna/Docusate Sodium 2 tablet 09/04/16 09:35 09/05/16 22:22 Pericolace - PO 2 tablet HS PRN Administration CONSTIPATION Sevelamer Carbonate 800 mg 09/04/16 12:00 09/06/16 17:22 Renvela - PO 800 mg TIDCM MANDO Administration Timolol Maleate 1 drop 09/04/16 12:45 09/06/16 16:38 Timoptic 0.5% OU Not Given DAILY MANDO Topiramate 50 mg 09/04/16 10:00 09/06/16 10:55 Topamax - PO 50 mg BID MANDO Administration Home Medications Medication Instructions Recorded Albuterol Sulfate Inhaler - 2 inh PO BID PRN 08/03/16 [Ventolin HFA Inhaler -] Atorvastatin Ca [Lipitor] 80 mg PO HS 08/03/16 Benzonatate 100 mg PO TID PRN 08/03/16 Bisacodyl [Laxative] 10 mg PO BID PRN 08/03/16 Brimonidine Tartrate/Timolol 2 drop OU DAILY 08/03/16 [Combigan 0.2%-0.5% Eye Drops] Carvedilol [Coreg -] 12.5 mg PO BID 08/03/16 Clonazepam [Klonopin -] 0.5 mg PO BID 08/03/16 Diphenhydramine [Benadryl Capsule 50 mg PO PRN PRN 08/03/16 -] Famotidine [Pepcid -] 20 mg PO DAILY 08/03/16 Furosemide [Lasix] 40 mg PO BID 08/03/16 Insulin Aspart [Novolog] 100 unit SQ ACHS 08/03/16 Lidocaine/Prilocaine Cream 1 applic TP PRN PRN 08/03/16 [Lidocaine-Prilocaine Cream -] Metoclopramide HCl [Reglan] 10 mg PO TID PRN 08/03/16 Mometasone/Formoterol [Dulera 100 2 inh IH BID PRN 08/03/16 Mcg/5 Mcg Inhaler] Ondansetron [Zofran -] 4 mg PO DAILY PRN 08/03/16 Sennosides [Senna] 2 tab PO DAILY 08/03/16 Aspirin Coated [Ecotrin -] 81 mg PO DAILY #30 tab 08/06/16 Hydralazine HCl [Apresoline -] 50 mg PO BID tablet 08/06/16 Clopidogrel Bisulfate [Plavix -] 75 mg PO DAILY 08/26/16 09/02/16 16:50 Blood - Peripheral Venous Blood Culture - Preliminary NO GROWTH OBTAINED AFTER 24 HOURS, INCUBATION TO CONTINUE FOR 4 DAYS. Right Foot XRAY Interval moderate osteoarthritic changes involving the first metatarsophalangeal joint. There is soft tissue swelling around the first toe as well as around the base of the third toe. There is also soft tissue swelling , dorsally. No soft tissue air is identified. Correlate clinically and further evaluation with MRI of the right foot would be the study of choice to rule out osteomyelitis. ASSESSMENT/PLAN: This is a 50 year old female with a past medical history of cva (08/10), IDDM, ESRD (MWF), history of MSSA+ osteomylitis of left foot, presents with worsening right foot ulcer. Admitted for IV antibiotics, rule out osteomyelitis. #Acute diabetic of right foot ulcer ; MRI is positive for ostemyelitis and bone biopsy pending to r/o Osteomeyelitis .Patient was treated for 6 weeks of IV antibiotic for her left foot. no leukocytosis, afebrile, given one dose of linezolid due to hx of MSSA; and patient allergic to vancomycin. Past wound culture of right foot positive for stenotrophomon X Maltophila; ent fecalis; staph aureus ,blood culture pending ,ESR elevated, crp pending, f/u MRI, betadine dressing , no weight bearing on right foot, Podiatry & ID consulted #Hx of CVA with residual left sided arm weakness, cont 81mg ASA po qd & plavix 75mg po daily. #ESRD: MWF nephrology consulted for dialysis #IDDM:insulin SS; BGM, hemoglobin A1C #HTN: cont carvedilol 12.5po bid, lasix 40mg po daily #HLD: atorvastatin 80mg po HS qd #asthma: on albuterol inhaler 2 puff bid prn, symbicort 2 puff bid #diabetic retinopathy: cont home med eye drops' brimoonidine tartrate/timolol 2 drops OU daily VTE prophylaxis: one time heparin given due to patient going to a bone biopsy in the am; In the past patient had a retinal bleed and was not able to use heparin. As per patient , can use heparin now as per patient check with ID if needed to tx now or to wait for bx result. if no further treatment needed then if stable discharge the patient.
[2016-09-06] MEDS: ATORVASTATIN CA 80 MG TABLET (FP) PO SCH (21:48)
[2016-09-06] MEDS ORDERED: INSULIN SLIDING SCALE (NOVOLOG) 1 VIAL SQ SCH (22:45)
[2016-09-07] MEDS: FUROSEMIDE 40 MG TABLET (FP) PO SCH ×2 (06:16→15:01)
[2016-09-07] MEDS: INSULIN SLIDING SCALE (NOVOLOG) 1 VIAL SQ SCH ×2 (06:16→15:58)
[2016-09-07 07:17] LABS: BASOPHIL 0.5 % (0-2.0); EOSINOPHIL 4.9 % (0-4.5); MCH 34.6 pg (25.7-33.7); MCHC 33.7 g/dl (32.0-36.0); MEAN CELL VOLUME 102.9 fl (80-96); MEAN PLT VOLUME 9.2 fl (7.5-11.1); NEUTROPHILS 63.9 % (42.8-82.8); PLATELET COUNT 167 K/MM3 (134-434); RDW 13.3 % (11.6-15.6); WHITE BLOOD COUNT 7.4 K/mm3 (4.0-10.0)
[2016-09-07 07:45] LABS: CALCIUM 9.5 mg/dL (8.5-10.1)
[2016-09-07 07:52] LABS: COCKROFT - GAULT 11.9
[2016-09-07] MEDS: SEVELAMER CARBONATE 800 MG TAB (FP) PO SCH ×2 (08:56→14:56)
[2016-09-07] MEDS ORDERED: PT OWN MED DRAWER 7, Y5N ONE (09:39)
[2016-09-07] MEDS: BRIMONIDINE TARTRATE 0.2% OPHTHALMIC 5 ML BOTTLE OU SCH (09:57)
--- NOTE | 2016-09-07 11:34 | PN ---
Progress Note, Physician History of Present Illness: Pt seen and examined at bedside. She is currently getting HD. She wants to do 3 hours instead of 4 hours. She however agrees to do 3 and a half hours. - Current Medication List Current Medications: Active Medications Acetaminophen (Tylenol -) 650 mg PO Q4H PRN PRN Reason: FEVER OR PAIN Last Admin: 09/06/16 06:23 Dose: 650 mg Albuterol Sulfate (Ventolin Hfa Inhaler -) 2 puff IH Q12H PRN PRN Reason: ASTHMA Aspirin (Ecotrin -) 81 mg PO DAILY [facility] Last Admin: 09/06/16 10:56 Dose: 81 mg Atorvastatin Calcium (Lipitor -) 80 mg PO HS [facility] Last Admin: 09/06/16 21:48 Dose: 80 mg Bacitracin (Bacitracin -) 1 applic TP DAILY [facility] Last Admin: 09/06/16 10:56 Dose: 1 applic Brimonidine Tartrate (Alphagan 0.2% -) 2 drop OU DAILY [facility] Last Admin: 09/06/16 16:38 Dose: Not Given Budesonide/Formoterol Fumarate (Symbicort 80/4.5mcg -) 2 puff IH BID [facility] Last Admin: 09/06/16 21:48 Dose: Not Given Carvedilol (Coreg -) 12.5 mg PO BID [facility] Last Admin: 09/06/16 21:48 Dose: 12.5 mg Clonazepam (Klonopin -) 0.5 mg PO BID [facility] Last Admin: 09/06/16 21:48 Dose: 0.5 mg Clopidogrel Bisulfate (Plavix -) 75 mg PO DAILY [facility] Last Admin: 09/06/16 10:55 Dose: 75 mg Furosemide (Lasix -) 40 mg PO BIDLASIX [facility] Last Admin: 09/07/16 06:16 Dose: Not Given Hydralazine HCl (Apresoline -) 50 mg PO BID [facility] Last Admin: 09/06/16 21:48 Dose: 50 mg Insulin Aspart (Novolog Vial Sliding Scale -) 1 vial SQ TIDAC MANDO PRN Reason: Protocol Last Admin: 09/07/16 06:16 Dose: 2 unit Insulin Aspart (Novolog Vial Sliding Scale -) 1 vial SQ HS MANDO PRN Reason: Protocol Last Admin: 09/06/16 22:50 Dose: 10 unit Lidocaine/Prilocaine (Emla -) 1 applic TP DAILY [facility] Last Admin: 09/06/16 17:23 Dose: Not Given Ondansetron HCl (Zofran -) 4 mg PO DAILY PRN PRN Reason: NAUSEA Polyethylene Glycol (Miralax (For Daily Use) -) 17 gm PO DAILY [facility] Last Admin: 09/06/16 15:08 Dose: 17 g Ranitidine HCl (Zantac -) 150 mg PO DAILY [facility] Last Admin: 09/06/16 10:56 Dose: 150 mg Senna/Docusate Sodium (Pericolace -) 2 tablet PO HS PRN PRN Reason: CONSTIPATION Last Admin: 09/05/16 22:22 Dose: 2 tablet Sevelamer Carbonate (Renvela -) 800 mg PO TIDCM [facility] Last Admin: 09/06/16 17:22 Dose: 800 mg Timolol Maleate (Timoptic 0.5%) 1 drop OU DAILY [facility] Last Admin: 09/06/16 16:38 Dose: Not Given Topiramate (Topamax -) 50 mg PO BID [facility] Last Admin: 09/06/16 21:49 Dose: 50 mg - Objective Vital Signs: Vital Signs Temperature 98.5 F 09/07/16 07:00 Pulse Rate 84 09/07/16 07:00 Respiratory Rate 20 09/07/16 07:00 Blood Pressure 141/66 09/07/16 07:00 O2 Sat by Pulse Oximetry (%) 96 09/06/16 21:00 Constitutional: Yes: Calm HENT: Yes: Atraumatic Cardiovascular: Yes: S1, S2 Respiratory: Yes: CTA Bilaterally Gastrointestinal: Yes: Soft, Abdomen, Obese Genitourinary: Yes: WNL Edema: Yes Edema: LLE: Trace, RLE: Trace Neurological: Yes: Oriented, Pre-Existing Deficit Psychiatric: Yes: Oriented Labs: CBC, BMP 09/07/16 06:00 09/07/16 06:00 Problem List - Problems (1) Diabetes Code(s): E11.9 - TYPE 2 DIABETES MELLITUS WITHOUT COMPLICATIONS Qualifiers: Diabetes mellitus type: type 2 Diabetes mellitus complication status: with kidney complications Diabetes mellitus complication detail: with chronic kidney disease Diabetes mellitus [facility] insulin use: with [employer] use Chronic kidney disease stage: on chronic dialysis Qualified Code(s): E11.22 - Type 2 diabetes mellitus with diabetic chronic kidney disease ; N18.1 - Chronic kidney disease, stage 1; Z79.4 - meterman (current) use of insulin (2) ESRD (end stage renal disease) on dialysis Code(s): N18.6 - END STAGE RENAL DISEASE Z99.2 - DEPENDENCE ON RENAL DIALYSIS (3) Hypertension Code(s): I10 - ESSENTIAL (PRIMARY) HYPERTENSION Qualifiers: Hypertension type: essential hypertension Qualified Code(s): I10 - Essential (primary) hypertension (4) Ulcer of right foot due to type 2 diabetes mellitus Code(s): E11.621 - TYPE 2 DIABETES MELLITUS WITH FOOT ULCER L97.519 - NON-PRS CHRONIC ULCER OTH PRT RIGHT FOOT W UNSP SEVERITY (5) Anemia Code(s): D64.9 - ANEMIA, UNSPECIFIED Assessment/Plan Current Medications Generic Name Dose Route Start Last Admin Trade Name Freq PRN Reason Stop Dose Admin Acetaminophen 650 mg 09/04/16 09:35 09/06/16 06:23 Tylenol - PO 650 mg Q4H PRN Administration FEVER OR PAIN Albuterol Sulfate 2 puff 09/04/16 09:35 Ventolin Hfa Inhaler - IH Q12H PRN ASTHMA Aspirin 81 mg 09/04/16 10:00 09/06/16 10:56 Ecotrin - PO 81 mg DAILY MANDO Administration Atorvastatin Calcium 80 mg 09/04/16 22:00 09/06/16 21:48 Lipitor - PO 80 mg HS MANDO Administration Bacitracin 1 applic 09/06/16 10:00 09/06/16 10:56 Bacitracin - TP 1 applic DAILY MANDO Administration Brimonidine Tartrate 2 drop 09/04/16 10:00 09/06/16 16:38 Alphagan 0.2% - OU Not Given DAILY MANDO Budesonide/Formoterol Fumarate 2 puff 09/04/16 10:00 09/06/16 21:48 Symbicort 80/4.5mcg - IH Not Given BID MANDO Carvedilol 12.5 mg 09/04/16 10:00 09/06/16 21:48 Coreg - PO 12.5 mg BID MANDO Administration Clonazepam 0.5 mg 09/04/16 10:00 09/06/16 21:48 Klonopin - PO 0.5 mg BID MANDO Administration Clopidogrel Bisulfate 75 mg 09/04/16 10:00 09/06/16 10:55 Plavix - PO 75 mg DAILY MANDO Administration Furosemide 40 mg 09/04/16 14:00 09/07/16 06:16 Lasix - PO Not Given BIDLASIX MANDO Hydralazine HCl 50 mg 09/04/16 10:00 09/06/16 21:48 Apresoline - PO 50 mg BID MANDO Administration Insulin Aspart 1 vial 09/04/16 11:00 09/07/16 06:16 Novolog Vial Sliding Scale - SQ 2 unit TIDAC MANDO Administration Protocol Insulin Aspart 1 vial 09/06/16 22:45 09/06/16 22:50 Novolog Vial Sliding Scale - SQ 10 unit HS MANDO Administration Protocol Lidocaine/Prilocaine 1 applic 09/04/16 10:00 09/06/16 17:23 Emla - TP Not Given DAILY MANDO Ondansetron HCl 4 mg 09/04/16 09:35 Zofran - PO DAILY PRN NAUSEA Polyethylene Glycol 17 gm 09/04/16 10:00 09/06/16 15:08 Miralax (For Daily Use) - PO 17 g DAILY MANDO Administration Ranitidine HCl 150 mg 09/04/16 10:00 09/06/16 10:56 Zantac - PO 150 mg DAILY MANDO Administration Senna/Docusate Sodium 2 tablet 09/04/16 09:35 09/05/16 22:22 Pericolace - PO 2 tablet HS PRN Administration CONSTIPATION Sevelamer Carbonate 800 mg 09/04/16 12:00 09/06/16 17:22 Renvela - PO 800 mg TIDCM MANDO Administration Timolol Maleate 1 drop 09/04/16 12:45 09/06/16 16:38 Timoptic 0.5% OU Not Given DAILY MANDO Topiramate 50 mg 09/04/16 10:00 09/06/16 21:49 Topamax - PO 50 mg BID MANDO Administration Impression 1. ESRD 2. CVA 3. DM 4. HLD 5. HTN 6. anemia 7. anxiety 8. infected right foot ulcer Plan - pt is getting HD - she had HD scheduled on Monday as outpt - will need neurology follow up - recommend her prescribed 4 hours of HD but she does not want to complete the time. She agrees to doing 3 and a half hour - pt will need follow up with ID and Podiatry - monitor blood pressure - wound and blood cultures show no growth to date - renal diet - will follow Dr Sharma
[2016-09-07] MEDS: POLYETHYLENE GLYCOL 3350 119 GM BTL PO SCH (13:53)
[2016-09-07 14:33] VITALS: BP 121/66; PULSE 81
[2016-09-07] MEDS: CARVEDILOL 12.5 MG TABLET (FP) PO SCH (14:57)
[2016-09-07] MEDS: hydrALAZINE HCL 50 MG TABLET (FP) PO SCH (14:57)
[2016-09-07] MEDS: clonazePAM 0.5 MG TABLET PO SCH (14:58)
[2016-09-07] MEDS: CLOPIDOGREL BISULFATE 75 MG TABLET (FP) PO SCH (14:58)
[2016-09-07] MEDS: RANITIDINE HCL 150 MG TABLET (FP) PO SCH (14:58)
[2016-09-07] MEDS: TOPIRAMATE 25 MG TABLET (FP) PO SCH (14:59)
[2016-09-07] MEDS: BUDESONIDE/FORMETEROL FUMARATE 80/4.5 mcg INHALER IH SCH (15:00)
[2016-09-07] MEDS: TIMOLOL 0.5% OPHTHALMIC SOL 5 ML BOTTLE OU SCH (15:00)
[2016-09-07] MEDS: ASPIRIN COATED 81 MG TABLET.EC PO SCH (15:00)
--- NOTE | 2016-09-07 15:48 | DS ---
Physical Exam: SUBJECTIVE: Patient seen and examined at bedside. No overnight events. No new complaints. Headache that is chronic. Foot pain improved. Dialyzed today. OBJECTIVE: Vital Signs Period Temp Pulse Resp BP Sys/[place] Pulse Ox Last 24 Hr 98.3 F-99 F 73-89 18-20 119-172/65-106 96-97 PHYSICAL EXAM GENERAL: Obese, Awake, alert, and fully oriented, in no acute distress. HEAD: Normal with no signs of trauma. LUNGS: CTAB No wheezes, and no crackles. No accessory muscle use. HEART: RRR, normal S1 and S2 without murmur, rub or gallop. ABDOMEN: obese Soft, nontender, not distended, normoactive bowel sounds, no guarding, no rebound, no masses. No hepatomegaly or splenomegaly. MUSCULOSKELETAL: Normal range of motion at all joints. No bony deformities or tenderness. No CVA tenderness. UPPER EXTREMITIES: 2+ pulses, warm, well-perfused. No cyanosis. No clubbing. No peripheral edema. LOWER EXTREMITIES: 2+ pulses, warm, well-perfused. No calf tenderness. No peripheral edema. Right foot plantar ulcer behind great toe 2x2cm, no pus, no drainage, edges soft, dose not probe to bone , on the doral aspect of the foot there is swelling LABS Laboratory Results - last 24 hr 09/06/16 09/06/16 09/06/16 11:07 16:32 21:55 WBC RBC Hgb Hct MCV MCHC RDW Plt Count MPV Neutrophils % Lymphocytes % Monocytes % Eosinophils % Basophils % Sodium Potassium Chloride Carbon Dioxide Anion Gap BUN Creatinine POC Glucometer 202 243 358 Random Glucose Calcium 09/07/16 09/07/16 09/07/16 05:40 06:00 06:00 WBC 7.4 RBC 2.88 L Hgb 10.0 L Hct 29.6 L MCV 102.9 H MCHC 33.7 RDW 13.3 Plt Count 167 MPV 9.2 Neutrophils % 63.9 Lymphocytes % 24.2 D Monocytes % 6.5 Eosinophils % 4.9 H Basophils % 0.5 Sodium 137 Potassium 4.6 Chloride 96 L Carbon Dioxide 29 D Anion Gap 12 BUN 52 H Creatinine 10.0 H* POC Glucometer 151 Random Glucose 189 H D Calcium 9.5 Microbiology 09/04/16 09:50 Toe - Right Hallux Gram Stain - Final 09/04/16 09:50 Toe - Right Hallux Wound Culture - Preliminary NO GROWTH OBTAINED AFTER 24 HOURS INCUBATION, REINCUBATED. 09/02/16 16:50 Blood - Peripheral Venous Blood Culture - Preliminary NO GROWTH OBTAINED AFTER 96 HOURS, INCUBATION TO CONTINUE FOR 1 DAYS. IMAGING: * Right Foot XRAY Interval moderate osteoarthritic changes involving the first metatarsophalangeal joint. There is soft tissue swelling around the first toe as well as around the base of the third toe. There is also soft tissue swelling , dorsally. No soft tissue air is identified. Correlate clinically and further evaluation with MRI of the right foot would be the study of choice to rule out osteomyelitis. * US/DUPLEX ART. LOWER COMPL US History provided: Ischemia. Real time and Doppler evaluation of the arteries of both lower extremities demonstrates the following: There is a moderate amount of atherosclerotic plaque scattered throughout the common and superficial femoral arteries, as well as the popliteal and posterior tibial arteries bilaterally. Largely triphasic flow is documented throughout these vessels with no evidence of an occlusion or hemodynamically significant stenosis. IMPRESSION: Moderate atherosclerotic disease with no evidence of occlusions or hemodynamically significant stenoses. * MRI/BRAIN MRI W/O CONTRAST Impression: Subacute nonhemorrhagic infarct with restrictive changes are observed. Left superior frontal gyrus, middle frontal gyrus, precentral gyrus at the vertex. Foci of restricted diffusion are observed in the left frontal centrum semiovale. Several foci of restricted diffusion are seen in the cortex of the left parietal lobe at the vertex , lateral aspect of the right superior frontal gyrus, precentral gyrus. Extensive supratentorial chronic white matter microangiopathic ischemic changes, gliosis. No flow is seen in the right internal carotid artery. Reported By: Bhupendra Hurtado MD 09/06/16 0909 HOSPITAL COURSE: 50 yo F with a PMHx of cva (08/10), IDDM, ESRD (MWF), history of MSSA+ osteomylitis of left foot, presents with worsening right foot ulcer. Admitted for IV antibiotics, rule out osteomyelitis. Intially started on IV antibiotics. Wound and blood cultures sent and reported above as negative. Foot Xray and MRI done and showed improvement from prior imaging. She was seen by ID and it is felt that this represents a chronic issue as opposed to acute process. Antibiotics stopped and she will need to follow up with he ID specialist Dr. Richardson as outpatient. Of note she also complained of some right sided weakness, seen by neurolgy and MRI was done showed subacute infarct. Patient on dual antiplatelet therapy. Neurologist recommends to discontinue benadryl and metochloprimide. Will follow up with neurology in one week. Instructed to start PT/OT tomorrow. Her diabetes was managed with novolog insulin sliding scale and BGM's ACHS. She was dialyzed according to her usual MWF scheduele and will continue at her usual clinic upon discharge. Hypertension was controlled with home medications of carvedilol, lasix, and hydralazine. Home med where also continued fore her HLD and migraines. Asthma controlled with symbicort and albuterol prn.While admitted she sustained a fall in which she bumped her head with out trauma. CT head showed no IC bleed or acute pathology. Her clinical condition is improved and stable for discharge. Date of Admission:09/02/16 Date of Discharge: 09/07/16 Minutes to complete discharge: 40 Discharge Summary Reason For Visit: CELLULITIS AND ABCESS OF FOOT Current Active Problems Cellulitis and abscess of foot (Acute) Asthma (Chronic) Diabetes (Chronic) Diabetic retinopathy (Chronic) ESRD (end stage renal disease) (Chronic) ESRD (end stage renal disease) on dialysis (Chronic) H/O: CVA (cerebrovascular accident) (Chronic) Hypertension (Chronic) Paresthesias in left hand (Chronic) Ulcer of right foot due to type 2 diabetes mellitus (Chronic) Condition: Improved - Instructions Diet, Activity, Other Instructions: -You will need to follow up with Dr. Richardson as soon as possible. -Follow up with neurology Dr. Faye in one week. -Please do no take Benadryl or metochloprimide as per neurology. -Start your Physical and occupational therapy tomorrow. -Diabetic/Renal diet. -Fall precautions -Increase activity as tolerated. Referrals: Arslan Richardson MD [Staff Physician] - Sebastián Parr MD [Primary Care Provider] - Disposition: VNS/HOME HEALTH CARE - Home Medications Comprehensive Discharge Medication List: Ambulatory Orders Albuterol Sulfate Inhaler - [Ventolin HFA Inhaler -] 2 inh PO BID PRN 08/03/16 Atorvastatin Ca [Lipitor] 80 mg PO HS 08/03/16 Benzonatate 100 mg PO TID PRN 08/03/16 Bisacodyl [Laxative] 10 mg PO BID PRN 08/03/16 Brimonidine Tartrate/Timolol [Combigan 0.2%-0.5% Eye Drops] 2 drop OU DAILY 01/10 Carvedilol [Coreg -] 12.5 mg PO BID 08/03/16 Clonazepam [Klonopin -] 0.5 mg PO BID 08/03/16 Famotidine [Pepcid -] 20 mg PO DAILY 08/03/16 Furosemide [Lasix] 40 mg PO BID 08/03/16 Insulin Aspart [Novolog] 100 unit SQ ACHS 08/03/16 Lidocaine/Prilocaine Cream [Lidocaine-Prilocaine Cream -] 1 applic TP PRN PRN Mometasone/Formoterol [Dulera 100 Mcg/5 Mcg Inhaler] 2 inh IH BID PRN 08/03/16 Ondansetron [Zofran -] 4 mg PO DAILY PRN 08/03/16 Sennosides [Senna] 2 tab PO DAILY 08/03/16 Aspirin Coated [Ecotrin -] 81 mg PO DAILY #30 tab 08/06/16 Hydralazine HCl [Apresoline -] 50 mg PO BID tablet 08/06/16 Clopidogrel Bisulfate [Plavix -] 75 mg PO DAILY 08/26/16 Problem List - Problems (1) Ulcer of right foot due to type 2 diabetes mellitus (2) Diabetes (3) ESRD (end stage renal disease) Code(s): N18.6 - END STAGE RENAL DISEASE (4) Hypertension (5) Hyperlipemia (6) H/O: CVA (cerebrovascular accident) (7) Asthma (8) Diabetic retinopathy (9) Migraine This patient is new to me today: No Emergency Visit: Yes ED Registration Date: 09/02/16 Care time: The patient presented to the Emergency Department on the above date and was hospitalized for further evaluation of their emergent condition. Critical Care patient: No - Discharge Referral Referred to [facility] No
[2016-09-07] MEDS: LIDOCAINE 2.5%/PRILOCAINE 2.5% (5 Gram/TUBE) TP SCH (15:53)
--- NOTE | 2016-09-07 15:53 | PN ---
Teaching Attending Note Name of Resident: Braydon Felipe ATTENDING PHYSICIAN STATEMENT I saw and evaluated the patient. I reviewed the resident's note and discussed the case with the resident. I agree with the resident's findings and plan as documented. SUBJECTIVE: s/p fall overnight OBJECTIVE: Vital Signs Temperature 98.8 F 09/07/16 10:55 Pulse Rate 81 09/07/16 14:05 Respiratory Rate 18 09/07/16 14:05 Blood Pressure 121/66 09/07/16 14:05 O2 Sat by Pulse Oximetry (%) 96 09/07/16 10:00 GENERAL: Obese, Awake, alert, and fully oriented, in no acute distress. HEAD: Normal with no signs of trauma. LUNGS: CTAB No wheezes, and no crackles. No accessory muscle use. HEART: RRR, normal S1 and S2 without murmur, rub or gallop. ABDOMEN: obese Soft, nontender, not distended, normoactive bowel sounds, no guarding, no rebound, no masses. No hepatomegaly or splenomegaly. MUSCULOSKELETAL: Normal range of motion at all joints. No bony deformities or tenderness. No CVA tenderness. UPPER EXTREMITIES: 2+ pulses, warm, well-perfused. No cyanosis. No clubbing. No peripheral edema. LOWER EXTREMITIES: 2+ pulses, warm, well-perfused. No calf tenderness. No peripheral edema. Right foot plantar ulcer behind great toe 2x2cm, no pus, no drainage, edges soft, dose not probe to bone , on the doral aspect of the foot there is swelling Abnormal Lab Results 09/07/16 09/07/16 06:00 06:00 RBC 2.88 L Hgb 10.0 L Hct 29.6 L MCV 102.9 H Eosinophils % 4.9 H Chloride 96 L BUN 52 H Creatinine 10.0 H* Random Glucose 189 H D ASSESSMENT AND PLAN: 50 yo F with a PMHx of cva (08/10), IDDM, ESRD (MWF), history of MSSA+ osteomylitis of left foot, presents with worsening right foot ulcer. Admitted for IV antibiotics, rule out osteomyelitis. Intially started on IV antibiotics. Wound and blood cultures sent and reported above as negative. Foot Xray and MRI done and showed improvement from prior imaging. She was seen by ID and it is felt that this represents a chronic issue as opposed to acute process. Antibiotics stopped and she will need to follow up with he ID specialist Dr. Richardson as outpatient. Of note she also complained of some right sided weakness, seen by neurolgy and MRI was done showed subacute infarct. Patient on dual antiplatelet therapy. Neurologist recommends to discontinue benadryl and metochloprimide. Will follow up with neurology in one week. Instructed to start PT/OT tomorrow. Her diabetes was managed with novolog insulin sliding scale and BGM's ACHS. She was dialyzed according to her usual MWF scheduele and will continue at her usual clinic upon discharge. Hypertension was controlled with home medications of carvedilol, lasix, and hydralazine. Home med where also continued fore her HLD and migraines. Asthma controlled with symbicort and albuterol prn.While admitted she sustained a fall in which she bumped her head with out trauma. CT head showed no IC bleed or acute pathology. Her clinical condition is improved and stable for discharge.
[2016-09-07] MEDS: BACITRACIN 30 GM TUBE TOPICAL OINTMENT TP SCH (15:59)
--- NOTE | 2016-09-07 15:59 | PN ---
Progress Note (short form) - Note Progress Note: d/w Dr Felipe earlier today patient seen at HD foot examined yesterday she has bilateral pedal edema ulcer is clean MRI is slightly improved when compared to previous crp is .5 cultures of bone are negative no signs active infection of the foot she can f/u with dr lyn as outpt thanks!
[2016-09-07 16:30] VITALS: TEMP 98.1
[2016-09-07] MEDS ORDERED: INSULIN SLIDING SCALE (NOVOLOG) 1 VIAL SQ SCH (22:00)
== END 2016-09-07 16:57 | disposition home health service (06) | DRG 988 ==
LOC: JER 15:24 → SUPCPDRO 15:24 → JERBED 18:40 → J7W 23:21
PROVIDERS: ADMIT Internal Medicine; ATTEND Internal Medicine
PROC: 5A1D60Z (ICD-10-PCS; 2016-09-04)
PROC: 0QBQ0ZX Excision of Right Toe Phalanx, Open Approach, Diagnostic (ICD-10-PCS; principal; 2016-09-04 08:30)
DX: E11.69 Type 2 diabetes mellitus with other specified complication (principal); I12.0 Hypertensive chronic kidney disease with stage 5 chronic kidney disease or end stage renal disease; I69.354 Hemiplegia and hemiparesis following cerebral infarction affecting left non-dominant side; Z68.41 Body mass index [BMI] 40.0-44.9, adult; M86.671 Other chronic osteomyelitis, right ankle and foot; E11.51 Type 2 diabetes mellitus with diabetic peripheral angiopathy without gangrene; N18.6 End stage renal disease; E11.621 Type 2 diabetes mellitus with foot ulcer; L97.519 Non-pressure chronic ulcer of other part of right foot with unspecified severity; E11.319 Type 2 diabetes mellitus with unspecified diabetic retinopathy without macular edema; E11.22 Type 2 diabetes mellitus with diabetic chronic kidney disease; Z79.4 Long term (current) use of insulin; Z99.2 Dependence on renal dialysis; H33.052 Total retinal detachment, left eye; J45.909 Unspecified asthma, uncomplicated; F41.9 Anxiety disorder, unspecified; Z89.422 Acquired absence of other left toe(s); Z89.421 Acquired absence of other right toe(s); E78.5 Hyperlipidemia, unspecified; D64.9 Anemia, unspecified; G47.30 Sleep apnea, unspecified; E66.9 Obesity, unspecified; Z71.3 Dietary counseling and surveillance; G43.909 Migraine, unspecified, not intractable, without status migrainosus; E11.42 Type 2 diabetes mellitus with diabetic polyneuropathy; B95.61 Methicillin susceptible Staphylococcus aureus infection as the cause of diseases classified elsewhere
CPT/HCPCS: 36415; 70450-TC; 70551-TC; 73630-TC-RT; 73718-TC; 80048; 80053; 82607; 82746; 83036; 85025; 85027; 85651; 86140; 86704; 86706; 86708; 86803; 87040; 87070; 87186; 87205; 87340; 88305-TC; 88311-TC; 93925-TC; 93970-TC; 94660; 94760; 97116-GP; 97162-PG; 99283-25

== ENCOUNTER 2016-11-17 06:23 | Day surgery (SDC) | payer OTHER ==
[2016-11-15 17:06] VITALS: BMI 40.7
[2016-11-17 07:04] VITALS: TEMP 98.2
[2016-11-17] MEDS ORDERED: LIDOCAINE HCL 1%, 10 MG/ML (20ML VIAL) ONE (07:15)
[2016-11-17] MEDS ORDERED: HEPARIN NA (PORCINE) 5,000 UNITS/ML 1ML VIAL ONE (07:15)
[2016-11-17] MEDS ORDERED: ePHEDrine SULFATE 50 MG/1 ML AMPULE ONE (07:20)
[2016-11-17] MEDS ORDERED: PROPOFOL 20 ML ONE ×3 (07:21)
[2016-11-17] MEDS ORDERED: MIDAZOLAM HCL 2 MG/2 ML SINGLE DOSE VIAL ONE ×2 (07:21→08:09)
[2016-11-17] MEDS ORDERED: SUCCINYLCHOLINE CHLORIDE 200 MG/10 ML VIAL ONE (07:21)
[2016-11-17] MEDS ORDERED: LIDOCAINE HCL 1%, 10 MG/ML (50 mL VIAL) IJ ONE (08:14)
--- NOTE | 2016-11-17 08:51 | OP ---
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
--- NOTE | 2016-11-17 08:52 | HP ---
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 Cardiovascular: Yes: HTN, Hyperlipdemia, Other (Peripheral vascular disease) Pulmonary: Yes: Asthma, Sleep Apnea Gastrointestinal: Yes: Constipation Renal/: Yes: Renal Failure, Hemodialysis ...LMP: 10/30/16 ...: No Heme/Onc: Yes: Anemia Rheumatology: Yes: Other (See HPI) Endocrine: Yes: Diabetes Mellitus - Past Surgical History Past Surgical History: Yes: Amputation, AV Fistula/Graft, - Advance Directives Advance Directives: Yes: Health Care Proxy - Smoking History Smoking history: Never smoked Have you smoked in the past 12 months: No Aproximately how many cigarettes per day: 0 - Alcohol/Substance Use Hx Alcohol Use: No - Social History ADL: Independent History of Recent Travel: No Home Medications - Allergies Allergies/Adverse Reactions: Allergies Allergy/AdvReac Type Severity Reaction Status Date / Time amoxicillin [Amoxicillin] Allergy Severe Itching Verified 11/15/16 17:10 hydrocodone bitartrate Allergy Severe Hives,ITCHI Verified 11/15/16 17:10 [From Vicodin] NG morphine Allergy Severe Itching Verified 11/15/16 17:10 neomycin [Neomycin] Allergy Severe Swelling Verified 11/15/16 17:10 oxycodone HCl [From Percocet] Allergy Severe Itching,HIV Verified 11/15/16 17:10 ES rofecoxib [From Vioxx] Allergy Severe Hives Verified 11/15/16 17:10 Sulfa (Sulfonamide Allergy Severe sclera Verified 11/15/16 17:10 Antibiotics) reddened,ITCHING tramadol Allergy Severe Vomiting Verified 11/15/16 17:10 tomato Allergy Verified 11/15/16 17:10 grapefruit [Grapefruit] AdvReac Severe CAN'T TAKE Verified 11/15/16 17:10 BECAUSE OF MEDICATIONS vancomycin AdvReac Mild red man Verified 11/15/16 17:10 syndrome Heparin Analogues AdvReac Unknown Verified 11/15/16 17:10 [Heparin Agents] flu shot Allergy Severe GETS FLU Uncoded 11/15/16 17:10 SYMPTOMS grape juice AdvReac Severe Uncoded 11/15/16 17:10 - Home Medications Home Medications: Ambulatory Orders Albuterol Sulfate Inhaler - [Ventolin HFA Inhaler -] 2 inh PO BID PRN 08/03/16 Atorvastatin Ca [Lipitor] 80 mg PO HS 08/03/16 Benzonatate 100 mg PO TID PRN 08/03/16 Bisacodyl [Laxative] 10 mg PO BID PRN 08/03/16 Brimonidine Tartrate/Timolol [Combigan 0.2%-0.5% Eye Drops] 2 drop OU DAILY 01/10 Carvedilol [Coreg -] 12.5 mg PO BID 08/03/16 Clonazepam [Klonopin -] 0.5 mg PO BID 08/03/16 Famotidine [Pepcid -] 20 mg PO DAILY 08/03/16 Furosemide [Lasix] 40 mg PO BID 08/03/16 Insulin Aspart [Novolog] 10 unit SQ AC 08/03/16 Lidocaine/Prilocaine Cream [Lidocaine-Prilocaine Cream -] 1 applic TP PRN PRN Mometasone/Formoterol [Dulera 100 Mcg/5 Mcg Inhaler] 2 inh IH BID PRN 08/03/16 Ondansetron [Zofran -] 4 mg PO DAILY PRN 08/03/16 Sennosides [Senna] 2 tab PO DAILY 08/03/16 Hydralazine HCl [Apresoline -] 50 mg PO BID tablet 08/06/16 Clopidogrel Bisulfate [Plavix -] 75 mg PO DAILY 08/26/16 Aspirin Coated [Ecotrin -] 325 mg PO DAILY 11/07/16 Cetirizine HCl [Zyrtec -] 5 mg PO DAILY 11/15/16 Topamax 50 mg PO BID 11/15/16 Wellbutrin - 150 mg PO DAILY 11/15/16 Physical Examination Vital Signs: Vital Signs Temperature 98.2 F 11/17/16 07:03 Pulse Rate 80 11/17/16 07:03 Respiratory Rate 18 11/17/16 07:03 Blood Pressure 138/84 11/17/16 07:03 O2 Sat by Pulse Oximetry (%) 99 11/17/16 07:05 Constitutional: Yes: Well Nourished Eyes: Yes: WNL HENT: Yes: WNL Neck: Yes: WNL Cardiovascular: Yes: WNL Respiratory: Yes: WNL Gastrointestinal: Yes: WNL Musculoskeletal: Yes: WNL Extremities: Yes: WNL Peripheral Pulses WNL: Yes Integumentary: Yes: WNL Labs: CBC, BMP 11/17/16 06:35 Assessment/Plan stenosis right avg 1. for venogram today
[2016-11-17] MEDS ORDERED: SODIUM CHLORIDE 1,000 ML IV SCH (09:15)
[2016-11-17] MEDS ORDERED: ONDANSETRON 4 MG/2 ML VIAL IVPUSH PRN (09:15)
[2016-11-17 10:50] VITALS: BP 132/79; PULSE 79
--- NOTE | 2016-11-17 11:35 | OP ---
DATE OF OPERATION: 11/17/2016 PREOPERATIVE DIAGNOSIS: Stenosis, right arteriovenous graft. POSTOPERATIVE DIAGNOSIS: Stenosis, right arteriovenous graft. PROCEDURE: Venogram, venoplasty, right arteriovenous graft. SURGEON: Nathan De Los Santos DO ANESTHESIA: Fractional. BLOOD LOSS: 10 mL INDICATION FOR PROCEDURE: The patient is a 50-year-old female who has high venous pressures in her right AV graft on dialysis. It was decided that she would need a venogram. Patient was consented for the procedure, understanding all risks, benefits, and alternatives and taken to the operating room. Once in the operating room, she was laid on the operative table in supine manner, and the area of the right arm was prepped and draped in a sterile surgical manner. We then went ahead and injected 10 mL of in the proximal AV graft. We then placed our Micropuncture needle and cannulated the AV graft. Micropuncture wire was placed. Micropuncture sheath was placed, and a short 6-Bengali sheath was placed. We then shot a venogram through the sheath, showing that beyond the venous anastomosis where there is a stent, there is about a 90% stenosis for about 3 cm. At this point, we went ahead and placed a 0.035 floppy guidewire through our stenosis and then used a 9 x 4 balloon and performed a venoplasty of the axillary vein. Completion venogram showed that now the fistula was patent. The stent was patent. There was a good thrill in the AV fistula. We then used a 4-0 Biosyn stitch and a figure-of-8 stitch was placed around our sheath and the sheath was pulled. The area was wet and dried, and Dermabond was placed. Patient tolerated the procedure with no complication. Patient transferred to the PACU in stable condition. NATHAN DE LOS SANTOS DO LUSTER REPAIRER/[id number]
== END 2016-11-17 10:59 | disposition home or self-care (01) ==
LOC: JASU-SURG 06:23
PROVIDERS: ATTEND Surgery Vascular Surgery
PROC: B51WYZA Fluoroscopy of Dialysis Shunt/Fistula using Other Contrast, Guidance (ICD-10-PCS; 2016-11-17)
PROC: 05773ZZ Dilation of Right Axillary Vein, Percutaneous Approach (ICD-10-PCS; principal; 2016-11-17 08:00)
DX: T82.858A Stenosis of other vascular prosthetic devices, implants and grafts, initial encounter (principal); I12.0 Hypertensive chronic kidney disease with stage 5 chronic kidney disease or end stage renal disease; E11.22 Type 2 diabetes mellitus with diabetic chronic kidney disease; N18.6 End stage renal disease; Z99.2 Dependence on renal dialysis
CPT/HCPCS: 36415; 76000-TC; 82947; 84132; 84703; J1644

== ENCOUNTER 2016-12-21 14:56 | Observation (INO) | payer OTHER ==
[2016-12-21 15:04] VITALS: BMI 40.0
--- NOTE | 2016-12-21 15:09 | PDOC ---
History of Present Illness - General Chief Complaint: CVA/TIA Stated Complaint: NUMBNESS, TREMORS Time Seen by Provider: 12/21/16 15:08 - History of Present Illness Initial Comments: 12/21/16 15:11 Ms. 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 She says that she knows this is a "mini stroke" and that this has happened to her in July, August, and October as well. She reports going to her dialysis appointment today anyway and presenting here after. Patient also reports she has a TTE scheduled with Dr. Rm in the morning. PCP: Jani Neurologist: Dr. Faye 12/21/16 19:00 Past History - Past Medical History Allergies/Adverse Reactions: Allergies Allergy/AdvReac Type Severity Reaction Status Date / Time amoxicillin [Amoxicillin] Allergy Severe Itching Verified 12/21/16 15:02 hydrocodone bitartrate Allergy Severe Hives,ITCHI Verified 12/21/16 15:02 [From Vicodin] NG morphine Allergy Severe Itching Verified 12/21/16 15:02 neomycin [Neomycin] Allergy Severe Swelling Verified 12/21/16 15:02 oxycodone HCl [From Percocet] Allergy Severe Itching,HIV Verified 12/21/16 15:02 ES rofecoxib [From Vioxx] Allergy Severe Hives Verified 12/21/16 15:02 Sulfa (Sulfonamide Allergy Severe sclera Verified 12/21/16 15:02 Antibiotics) reddened,ITCHING tramadol Allergy Severe Vomiting Verified 12/21/16 15:02 tomato Allergy Verified 12/21/16 15:02 grapefruit [Grapefruit] AdvReac Severe CAN'T TAKE Verified 12/21/16 15:02 BECAUSE OF MEDICATIONS vancomycin AdvReac Mild red man Verified 12/21/16 15:02 syndrome Heparin Analogues AdvReac Unknown Verified 12/21/16 15:02 [Heparin Agents] flu shot Allergy Severe GETS FLU Uncoded 12/21/16 15:02 SYMPTOMS grape juice AdvReac Severe Uncoded 12/21/16 15:02 Home Medications: Ambulatory Orders Albuterol Sulfate Inhaler - [Ventolin HFA Inhaler -] 2 inh PO BID PRN 08/03/16 Atorvastatin Ca [Lipitor] 80 mg PO HS 08/03/16 Benzonatate 100 mg PO TID PRN 08/03/16 Bisacodyl [Laxative] 10 mg PO BID PRN 08/03/16 Brimonidine Tartrate/Timolol [Combigan 0.2%-0.5% Eye Drops] 2 drop OU DAILY 01/10 Carvedilol [Coreg -] 12.5 mg PO BID 08/03/16 Clonazepam [Klonopin -] 0.5 mg PO BID 08/03/16 Famotidine [Pepcid -] 20 mg PO DAILY 08/03/16 Furosemide [Lasix] 40 mg PO BID 08/03/16 Insulin Aspart [Novolog] 10 unit SQ AC 08/03/16 Lidocaine/Prilocaine Cream [Lidocaine-Prilocaine Cream -] 1 applic TP PRN PRN Mometasone/Formoterol [Dulera 100 Mcg/5 Mcg Inhaler] 2 inh IH BID PRN 08/03/16 Ondansetron [Zofran -] 4 mg PO DAILY PRN 08/03/16 Sennosides [Senna] 2 tab PO DAILY 08/03/16 Hydralazine HCl [Apresoline -] 50 mg PO BID tablet 08/06/16 Clopidogrel Bisulfate [Plavix -] 75 mg PO DAILY 08/26/16 Aspirin Coated [Ecotrin -] 325 mg PO DAILY 11/07/16 Cetirizine HCl [Zyrtec -] 5 mg PO DAILY 11/15/16 Topamax 50 mg PO BID 11/15/16 Wellbutrin - 150 mg PO DAILY 11/15/16 Anemia: No Asthma: Yes Cancer: No Cardiac Disorders: No CVA: Yes ("mini strokes" october 26, 2016) COPD: No CHF: No Dementia: No Diabetes: Yes Dialysis: Yes (M, W, F) GI Disorders: No Disorders: No HTN: Yes Hypercholesterolemia: Yes Liver Disease: No Psychiatric Problems: Yes (ANXIETY.) Seizures: No Thyroid Disease: No - Surgical History Abdominal Surgery: No Appendectomy: No Cardiac Surgery: Yes (AV graft right) Cholecystectomy: No Lung Surgery: No Neurologic Surgery: No Orthopedic Surgery: No - Immunization History Td Vaccination: No TDAP Vaccination: No Immunization Up to Date: Yes - Suicide/Smoking/Psychosocial Hx Smoking Status: No Smoking History: Never smoked Have you smoked in the past 12 months: No Number of Cigarettes Smoked Daily: 0 Hx Alcohol Use: No Drug/Substance Use Hx: No Substance Use Type: None Hx Substance Use Treatment: No Neuro Specific PMHX - Complaint Specific PMHX Glaucoma: No Review of Systems - Review of Systems Comments:: 12/21/16 17:00 GENERAL/CONSTITUTIONAL: +Weakness in her Right eye. No fever or chills. Reports trouble speaking. HEAD, EYES, EARS, NOSE AND THROAT: +Long standing Left eye blindness. No ear pain or discharge. No sore throat. CARDIOVASCULAR: No chest pain or shortness of breath RESPIRATORY: No cough, wheezing, or hemoptysis. GASTROINTESTINAL: No nausea, vomiting, diarrhea or constipation. GENITOURINARY: No dysuria, frequency, or change in urination. MUSCULOSKELETAL: . No joint or muscle swelling or pain. No neck or back pain. SKIN: No rash NEUROLOGIC: +Right arm tremor with Right leg weakness. No headache, vertigo, or loss of consciousness. ENDOCRINE: No increased thirst. No abnormal weight change HEMATOLOGIC/LYMPHATIC: No anemia, easy bleeding, or history of blood clots. ALLERGIC/IMMUNOLOGIC: No hives or skin allergy. *Physical Exam - Vital Signs Last Vital Signs Temp Pulse Resp BP Pulse Ox 98.9 F 90 18 149/93 99 12/21/16 15:02 12/21/16 15:02 12/21/16 15:02 12/21/16 15:02 12/21/16 15:02 - Physical Exam Comments: 12/21/16 17:02 GENERAL: Awake, alert, and fully oriented, in no acute distress HEAD: No signs of trauma, normocephalic, atraumatic EYES: +Partial hemianopia in R eye (R eye right half vision field intact). ENT: Auricles normal inspection, hearing grossly normal, nares patent, oropharynx clear without exudates. Moist mucosa NECK: Normal ROM, supple, no lymphadenopathy, JVD, or masses LUNGS: No distress, speaks full sentences, clear to auscultation bilaterally HEART: Regular rate and rhythm, normal S1 and S2, no murmurs, rubs or gallops, peripheral pulses normal and equal bilaterally. ABDOMEN: Soft, nontender, normoactive bowel sounds. No guarding, no rebound. No masses EXTREMITIES: Normal inspection, Normal range of motion, no edema. No clubbing or cyanosis. NEUROLOGICAL: +Speech stuttered and dysarthric. Mild ataxia in RUE. Cranial nerves II through XII grossly intact. SKIN: Warm, Dry, normal turgor, no rashes or lesions noted. NIH Stroke Scale - Last Known Well Date/Time & Onset Date Last Known Well: 12/21/16 Time Last Known Well: 08:00 - Initial Evaluation Level of consciousness: Alert Ask patient the month and their age: Answers both correctly Ask patient to open & close eyes; make fist and let go: Obeys both correctly Best gaze (horizontal eye movement): Normal Visual field testing: Partial hemianopia Facial paresis (Show teeth/raise eyebrows/close eyes tight): Normal symmetrical movement Motor Function: Left Arm: Normal Motor Function: Right Arm: Normal (extends arm 90 (or 45) degrees for 10 seconds without drift Motor Function: Left Leg: Normal (extends leg 30 degrees for 5 seconds without drift) Motor Function: Right Leg: Normal (extends leg 30 degrees for 5 seconds without drift) Limb Ataxia: Present in one limb Sensory(Use pinprick test arms,legs,trunk,face/side to side): Normal Best language (Describe picture, name items, read sentences): Mild to moderate aphasia Dysarthria (read several words): Mild to moderate slurring of words Extinction and Inattention: No abnormality - Total Score NIH Stroke Scale Score: 4 Critical Care Time/MDM Note - Medical Decision Making Note: 12/21/16 17:05 Patient presents 8 hours after onset of symptoms for evaluation. NIH Stroke scale of 4 for partial hemianopia (R eye), ataxia in the RUE, mild aphasia and mild dysarthria. No other symptoms noted. With symptom onset of 8 hours before presentation she was not a TPA candidate. NIH stroke scale of 4 precluded vascular intervention as well. Patient's neurologist Dr. Faye consulted. Advised that patients symptoms often trey with reassurance and to ensure patient had taken proscribed wellbutrin. PCP: Dr. Parr' office called at [phone]. Admission to [facility] requested. Patient admitted for follow-up care. Discharge Disposition - Diagnosis TIA (transient ischemic attack) Qualifiers: Transient cerebral ischemia type: unspecified Qualified Code(s): G45.9 - Transient cerebral ischemic attack, unspecified - Discharge Dispostion Admit: Yes
[2016-12-21] MEDS ORDERED: SODIUM CHLORIDE 1,000 ML IV SCH (15:45)
[2016-12-21] MEDS ORDERED: SODIUM CHLORIDE 1,000 ML IV STA (16:23)
[2016-12-21 18:14] LABS: BASOPHIL 0.9 % (0-2.0); EOSINOPHIL 2.4 % (0-4.5); MCH 32.8 pg (25.7-33.7); MCHC 32.3 g/dl (32.0-36.0); MEAN CELL VOLUME 101.5 fl (80-96); MEAN PLT VOLUME 8.7 fl (7.5-11.1); NEUTROPHILS 71.8 % (42.8-82.8); PLATELET COUNT 186 K/MM3 (134-434); RDW 14.6 % (11.6-15.6); WHITE BLOOD COUNT 9.7 K/mm3 (4.0-10.0)
[2016-12-21 18:27] LABS: INR 1.09 (0.82-1.09)
[2016-12-21 18:38] LABS: ALBUMIN 3.7 g/dl (3.4-5.0); ANION GAP 10 (8-16); BILIRUBIN,TOTAL 0.4 mg/dL (0.2-1.0); CALCIUM 9.3 mg/dL (8.5-10.1); CHOLESTEROL 78 mg/dL (50-200); CO2 28 mmol/L (21-32); GLUCOSE,RANDOM 132 mg/dL (74-106); SGOT/AST 19 U/L (15-37); SGPT/ALT 31 U/L (12-78); TOT PROT 7.7 g/dl (6.4-8.2)
[2016-12-21 18:43] LABS: ALK PHOS 55 U/L (45-117); CPK 244 IU/L (26-192); TROPONIN I 0.02 ng/ml (0.00-0.05)
[2016-12-21 18:51] LABS: CREATININE 7.5 mg/dL (0.55-1.02)
--- NOTE | 2016-12-21 19:18 | PDOC ---
Attending Attestation - Resident Resident Name: Sundar Schaefer - ED Attending Attestation I have performed the following: I have examined & evaluated the patient, The case was reviewed & discussed with the resident, I agree w/resident's findings & plan, Exceptions are as noted - HPI HPI: 12/21/16 19:13 50-year-old female with history of diabetes, end-stage renal disease on hemodialysis, hypertension, recurrent TIA, bilateral toe amputations, diabetic retinopathy presents to the ER with right foot weakness right arm tremor and dysarthria that started 8 hours prior to arrival in the ED. - Physicial Exam PE: 12/21/16 19:13 In the ER, patient is awake and alert, nontoxic-appearing, afebrile, vital signs are noted. nc/atr eomi, cta no bruits b/l rrr neuro: + dysarthria, r. arm/leg weakness (4/5) - Medical Decision Making 12/21/16 19:18 Patient is a 50-year-old female with multiple: Diabetes who presents to the ER with recurrent right-sided weakness and dysarthria. CT of head shows no evidence of acute cranial pathology. Patient was outside the window of TPA and NIH stroke scale is 4. Patient is unlikely to benefit from endovascular intervention. Case discussed with neurology. Dr. Faye advises the patient's symptoms often resolved with reassurance. Patient is scheduled for a TOBIAS with Dr. Munoz. Will place in obs stroke telemetry.
--- NOTE | 2016-12-21 20:21 | PN ---
Teaching Attending Note Name of Resident: Nigel Garrett ATTENDING PHYSICIAN STATEMENT I saw and evaluated the patient. I reviewed the resident's note and discussed the case with the resident. I agree with the resident's findings and plan as documented. SUBJECTIVE: 50 year old female with history of CVA and recurrent TIAs that presents today c/ o dysarthria and right sided weakness x 1 day of duration. SHe had similar symptoms before and is followed by ware finisher and neurologist. She is scheduled for TOBIAS on 12/22/16. PMH: HTN DM ASTHMA DM Nephropathy ESRD on HD MRSA Osteomyelitis Home Medication List Medication Instructions Recorded Confirmed Type Albuterol Sulfate Inhaler - 2 inh PO BID PRN 08/03/16 12/21/16 History [Ventolin HFA Inhaler -] Atorvastatin Ca [Lipitor] 80 mg PO HS 08/03/16 12/21/16 History Benzonatate 100 mg PO TID PRN 08/03/16 12/21/16 History Bisacodyl [Laxative] 10 mg PO BID PRN 08/03/16 12/21/16 History Brimonidine Tartrate/Timolol 2 drop OU DAILY 08/03/16 12/21/16 History [Combigan 0.2%-0.5% Eye Drops] Carvedilol [Coreg -] 12.5 mg PO BID 08/03/16 12/21/16 History Clonazepam [Klonopin -] 0.5 mg PO BID 08/03/16 12/21/16 History Famotidine [Pepcid -] 20 mg PO DAILY 08/03/16 12/21/16 History Furosemide [Lasix] 40 mg PO BID 08/03/16 12/21/16 History Insulin Aspart [Novolog] 10 unit SQ AC 08/03/16 12/21/16 History Lidocaine/Prilocaine Cream 1 applic TP PRN PRN 08/03/16 12/21/16 History [Lidocaine-Prilocaine Cream -] Mometasone/Formoterol [Dulera 100 2 inh IH BID PRN 08/03/16 12/21/16 History Mcg/5 Mcg Inhaler] Ondansetron [Zofran -] 4 mg PO DAILY PRN 08/03/16 12/21/16 History Sennosides [Senna] 2 tab PO DAILY 08/03/16 12/21/16 History Clopidogrel Bisulfate [Plavix -] 75 mg PO DAILY 08/26/16 12/21/16 History Aspirin Coated [Ecotrin -] 325 mg PO DAILY 11/07/16 12/21/16 History Cetirizine HCl [Zyrtec -] 5 mg PO DAILY 11/15/16 12/21/16 History Topamax 50 mg PO BID 11/15/16 12/21/16 History Wellbutrin - 150 mg PO DAILY 11/15/16 12/21/16 History OBJECTIVE: Vital Signs Temperature 98.6 F 12/21/16 19:45 Pulse Rate 84 12/21/16 19:45 Respiratory Rate 18 12/21/16 19:45 Blood Pressure 152/90 12/21/16 19:45 O2 Sat by Pulse Oximetry (%) 97 12/21/16 19:45 HEAD, EYES, EARS, NOSE AND THROAT:Left eye blindness. No ear pain or discharge. No sore throat. CARDIOVASCULAR: No chest pain or shortness of breath RESPIRATORY: No cough, wheezing, or hemoptysis. GASTROINTESTINAL: No nausea, vomiting, diarrhea or constipation. GENITOURINARY: No dysuria, frequency, or change in urination. MUSCULOSKELETAL: . No joint or muscle swelling or pain. No neck or back pain. SKIN: No rash NEUROLOGIC: +Right arm tremor with Right leg weakness. No headache, vertigo, or loss of consciousness. ENDOCRINE: No increased thirst. No abnormal weight change HEMATOLOGIC/LYMPHATIC: No anemia, easy bleeding, or history of blood clots. ALLERGIC/IMMUNOLOGIC: No hives or skin allergy. CBC, BMP 12/21/16 18:00 12/21/16 18:00 CXR - [facility] CT brain Impression: No significant interval change. Extensive periventricular, likely chronic microvascular ischemic changes again seen with lucency in the left frontal lobe, superiorly/laterally compatible with encephalomalacia at site of previously visualized acute/subacute infarct. No mass lesion, gross acute infarct or intracranial hemorrhage are identified. Correlate clinically to determine further evaluation. MRI BRAIN 08/03/16 Impression Moderately severe periventricular chronic microvascular ischemic changes again seen. Interval multiple tiny acute/subacute lacunar infarcts in the right frontal and parietal high convexity, right more the left as well as an acute/subacute lacunar infarct at the left parietal occipital junction. 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 ASSESSMENT AND PLAN: 1. TIA/ possible CVA - in a patient with history of carotid stenosis and cerebral atherosclerosis. Not a candidate for tPA. Already on dual antiplatelet therapy . Unlikely would benefit from carotid endarteriectomy due to complete occlusion. - risk factor modification ( BP control) - c/w ASA and Plavix - c/w statins - monitor on telemetry - r/o underlying afib - echo - no need to repeat carotid dopplers - Neurology evaluation - neuro checks q4 - cardiology evaluation, will keep NPO for possible TOBIAS 2. ESRD - s/p HD today - continue as scheduled - nephrology consult for HD 3. HTN - uncontrolled - reinstate BP meds - frequent vital signs 4. DM - diabetic diet - c/w insulin
[2016-12-21] MEDS ORDERED: SENNOSIDES 8.6MG TABLET (FP) PO PRN (21:48)
--- NOTE | 2016-12-21 21:48 | HP ---
CHIEF COMPLAINT: Right arm and leg weakness. Stuttering speech PCP: Keshav HISTORY OF PRESENT ILLNESS: Pt is a 50 y/o F with PMH HTN, TIA, ESRD, intracranial atherosclerosis, DM, Diabetic retinopathy, L retinal detachment, "legal blindness" who presented to the ED with RUE & RLE weakness/trembling and stuttering speech, which began around 6pm. Pt states she went to dialysis and began having symptoms. She finished dialysis and came to ED. Pt states she has had several similar episodes in July, August, and October and she feels this is "another mini stroke". The patient had a TOBIAS scheduled with Dr. Munoz for tomorrow morning. Pt denies LOC, fall, dizziness, nausea, vomiting, aura, loss of bowel/bladder control. Patient arrived outside TPA window and was not a candidate for intervention. 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 (3) Recent Travel: Denies PAST MEDICAL HISTORY: As above, sleep apnea PAST SURGICAL HISTORY: toe amputations, skin graft on Right foot, cataract surg Social History: Smoking: denies Alcohol: denies Drugs: denies Family History: DM in both parents Allergies amoxicillin [Amoxicillin] Allergy (Severe, Verified 12/21/16 15:02) Itching hydrocodone bitartrate [From Vicodin] Allergy (Severe, Verified 12/21/16 15:02) Hives,ITCHING morphine Allergy (Severe, Verified 12/21/16 15:02) Itching neomycin [Neomycin] Allergy (Severe, Verified 12/21/16 15:02) Swelling oxycodone HCl [From Percocet] Allergy (Severe, Verified 12/21/16 15:02) Itching,HIVES rofecoxib [From Vioxx] Allergy (Severe, Verified 12/21/16 15:02) Hives Sulfa (Sulfonamide Antibiotics) Allergy (Severe, Verified 12/21/16 15:02) sclera reddened,ITCHING tramadol Allergy (Severe, Verified 12/21/16 15:02) Vomiting tomato Allergy (Verified 12/21/16 15:02) grapefruit [Grapefruit] Adverse Reaction (Severe, Verified 12/21/16 15:02) CAN'T TAKE BECAUSE OF MEDICATIONS vancomycin Adverse Reaction (Mild, Verified 12/21/16 15:02) red man syndrome Heparin Analogues [Heparin Agents] Adverse Reaction (Unknown, Verified 12/21/16 15:02) OF 09/14/14, PT IS ABLE TO TAKE WITH MONITORING OF SYMPTOMS flu shot Allergy (Severe, Uncoded 12/21/16 15:02) GETS FLU SYMPTOMS grape juice Adverse Reaction (Severe, Uncoded 12/21/16 15:02) HOME MEDICATIONS: Home Medications Medication Instructions Recorded Albuterol Sulfate Inhaler - 2 inh PO BID PRN 08/03/16 [Ventolin HFA Inhaler -] Atorvastatin Ca [Lipitor] 80 mg PO HS 08/03/16 Benzonatate 100 mg PO TID PRN 08/03/16 Bisacodyl [Laxative] 10 mg PO BID PRN 08/03/16 Brimonidine Tartrate/Timolol 2 drop OU DAILY 08/03/16 [Combigan 0.2%-0.5% Eye Drops] Carvedilol [Coreg -] 12.5 mg PO BID 08/03/16 Clonazepam [Klonopin -] 0.5 mg PO BID 08/03/16 Famotidine [Pepcid -] 20 mg PO DAILY 08/03/16 Furosemide [Lasix] 40 mg PO BID 08/03/16 Insulin Aspart [Novolog] 10 unit SQ AC 08/03/16 Lidocaine/Prilocaine Cream 1 applic TP PRN PRN 08/03/16 [Lidocaine-Prilocaine Cream -] Mometasone/Formoterol [Dulera 100 2 inh IH BID PRN 08/03/16 Mcg/5 Mcg Inhaler] Ondansetron [Zofran -] 4 mg PO DAILY PRN 08/03/16 Sennosides [Senna] 2 tab PO DAILY 08/03/16 Hydralazine HCl [Apresoline -] 50 mg PO BID tablet 08/06/16 Clopidogrel Bisulfate [Plavix -] 75 mg PO DAILY 08/26/16 Aspirin Coated [Ecotrin -] 325 mg PO DAILY 11/07/16 Cetirizine HCl [Zyrtec -] 5 mg PO DAILY 11/15/16 Topamax 50 mg PO BID 11/15/16 Wellbutrin - 150 mg PO DAILY 11/15/16 REVIEW OF SYSTEMS CONSTITUTIONAL: Absent: fever, chills, diaphoresis, generalized weakness, malaise, loss of appetite, weight change HEENT: Absent: rhinorrhea, nasal congestion, throat pain, throat swelling, difficulty swallowing, mouth swelling, ear pain, eye pain, visual changes CARDIOVASCULAR: Absent: chest pain, syncope, palpitations, irregular heart rate, lightheadedness , peripheral edema RESPIRATORY: Absent: cough, shortness of breath, dyspnea with exertion, orthopnea, wheezing, stridor, hemoptysis GASTROINTESTINAL: Absent: abdominal pain, abdominal distension, nausea, vomiting, diarrhea, constipation, melena, hematochezia GENITOURINARY: Absent: dysuria, frequency, urgency, hesitancy, hematuria, flank pain, genital pain MUSCULOSKELETAL: Absent: myalgia, arthralgia, joint swelling, back pain, neck pain SKIN: Absent: rash, itching, pallor HEMATOLOGIC/IMMUNOLOGIC: Absent: easy bleeding, easy bruising, lymphadenopathy, frequent infections ENDOCRINE: Absent: unexplained weight gain, unexplained weight loss, heat intolerance, cold intolerance NEUROLOGIC: RUE/RLE weakness, dysarthria, headache Absent: , , dizziness, unsteady gait, seizure, mental status changes, bladder or bowel incontinence PSYCHIATRIC: Absent: anxiety, depression, suicidal or homicidal ideation, hallucinations. PHYSICAL EXAMINATION Vital Signs - 24 hr 12/21/16 19:45 Temperature 98.6 F Pulse Rate [ 84 Left Radial] Respiratory 18 Rate Blood Pressure 152/90 [Left Arm] O2 Sat by Pulse 97 Oximetry (%) GENERAL: Obese, Awake, alert, and fully oriented, in no acute distress. HEAD: Normal with no signs of trauma. EYES: Pupils equal, round constricted and poorly reactive to light, extraocular movements not intact (pt has poor vision. Unclear if unable to look left or can' t see. Pt was able to gaze to the left when distracted), sclera anicteric, conjunctiva clear. No lid lag. EARS, NOSE, THROAT: nares patent, oropharynx clear without exudates. Moist mucous membranes. Extension of tongue midline NECK: Normal range of motion, supple without lymphadenopathy, JVD, or masses. LUNGS: Breath sounds equal, clear to auscultation bilaterally. No wheezes, and no crackles. No accessory muscle use. HEART: Regular rate and rhythm, normal S1 and S2 without murmur, rub or gallop. ABDOMEN: Soft, nontender, not distended, normoactive bowel sounds, no guarding, no rebound, no masses. No hepatomegaly or splenomegaly. MUSCULOSKELETAL: Normal range of motion at all joints. No bony deformities or tenderness. No CVA tenderness. UPPER EXTREMITIES: 2+ pulses, warm, well-perfused. No cyanosis. No clubbing. No peripheral edema. LOWER EXTREMITIES: 2+ pulses, warm, well-perfused. No calf tenderness. No peripheral edema. Right foot with broken toe. Left foot with transmetatarsal amputation of lateral 2 toes NEUROLOGICAL: Cranial nerves II-XII intact. Stuttering speech. gait not observed. 5/5 strength throughout though Limited cooperation from pt. Altered sensation in RLE. PSYCHIATRIC: Cooperative. Good eye contact. Appropriate mood and affect. SKIN: Warm, dry, normal turgor, no rashes or lesions noted, normal capillary refill. Laboratory Results - last 24 hr 12/21/16 18:12 Blood Type A POSITIVE Antibody Screen Negative ASSESSMENT/PLAN: This is a 50 year old female with PMH HTN, TIA, ESRD, intracranial atherosclerosis, DM, Diabetic retinopathy, L retinal detachment, "legal blindness", sleep apnea who presented to ED with dysarthria and right sided weakness. Pt is being admitted for TIA/CVA workup. #TIA/CVA -Pt has persistent symptoms with known intracranial atherosclerotic disease -Dr. Faye has seen pt previously -Head CT shows no acute changes -Outside TPA window -NS -tele -echo -pt on ASA, Plavix -pt on statins -neuro consult -neuro checks -Pt had normal echo & stress test recently #ESRD -pt got HD today -HD MWF -nephro consult #DM -HbA1C -ISS -DM diet #HTN -pt on Coreg, Lasix at home. will continue #Asthma -not in acute exacerbation -Ventolin PRN #Sleep Apnea -CPAP #Chronic anemia -H&H currently wnl #PPX -famotidine -SCDs. Pt states she has an allergy to Heparin. Risk of DVT was explained at length to pt. Pt refused heparin. #FEN -NS @ 100 -lytes wnl -DM diet #Dispo -admit to tele for TIA/CVA workup Medications reconciled with patient. Pharm [facility] Sharla Cardenas MD PGY-1. Case discussed with senior Visit type - Emergency Visit Emergency Visit: Yes ED Registration Date: 12/21/16 Care time: The patient presented to the Emergency Department on the above date and was hospitalized for further evaluation of their emergent condition. - New Patient This patient is new to me today: Yes Date on this admission: 12/22/16 - Critical Care Critical Care patient: No
[2016-12-21] MEDS ORDERED: clonazePAM 0.5 MG TABLET PO PRN (22:01)
[2016-12-21] MEDS ORDERED: ALBUTEROL SO4 6.7 GM HFA INHALER IH PRN (22:03)
[2016-12-21] MEDS: CARVEDILOL 12.5 MG TABLET (FP) PO SCH (23:09)
[2016-12-21] MEDS: TOPIRAMATE 25 MG TABLET (FP) PO SCH (23:10)
[2016-12-21] MEDS: hydrALAZINE HCL 50 MG TABLET (FP) PO SCH (23:10)
[2016-12-21] MEDS: TIMOLOL 0.5% OPHTHALMIC SOL 5 ML BOTTLE OS SCH (23:34)
[2016-12-22] MEDS: INSULIN (NOVOLOG) ASPART 100 UNITS/ML 10ML VIAL SQ SCH ×2 (06:42→12:32)
[2016-12-22] MEDS: FUROSEMIDE 40 MG TABLET (FP) PO SCH ×2 (06:44→14:39)
[2016-12-22] MEDS ORDERED: INSULIN SLIDING SCALE (NOVOLOG) 1 VIAL SQ SCH (07:00)
[2016-12-22 07:16] LABS: BASOPHIL 0.6 % (0-2.0); MCH 32.5 pg (25.7-33.7); MCHC 32.2 g/dl (32.0-36.0); MEAN CELL VOLUME 100.8 fl (80-96); NEUTROPHILS 60.1 % (42.8-82.8); PLATELET COUNT 169 K/MM3 (134-434); RDW 14.3 % (11.6-15.6); WHITE BLOOD COUNT 7.1 K/mm3 (4.0-10.0)
[2016-12-22] MEDS ORDERED: INSULIN (NOVOLOG) ASPART 100 UNITS/ML 10ML VIAL ONE (07:47)
[2016-12-22 07:58] LABS: ALBUMIN 3.3 g/dl (3.4-5.0); ANION GAP 9 (8-16); CO2 27 mmol/L (21-32); GLUCOSE,RANDOM 166 mg/dL (74-106); MAGNESIUM 2.3 mg/dL (1.8-2.4)
[2016-12-22 08:11] LABS: ALK PHOS 48 U/L (45-117); BILIRUBIN,TOTAL 0.3 mg/dL (0.2-1.0); PHOSPHOROUS 5.1 mg/dL (2.5-4.9); SGOT/AST 17 U/L (15-37); SGPT/ALT 29 U/L (12-78); TOT PROT 6.6 g/dl (6.4-8.2)
[2016-12-22 08:23] LABS: CREATININE 9.2 mg/dL (0.55-1.02)
[2016-12-22] MEDS ORDERED: PT OWN MED DRAWER 7, Y5N ONE (09:05)
--- NOTE | 2016-12-22 09:12 | CON.CARD ---
Cardiology Consult (text) - Consultation Consultation Note: Consult Dictated IMP: Possible acute CVA Prior CVAs/TIAs Known occluded BHAVIN ESRD DM REC: Prior work up as outpatient including holter, TOBIAS have been unremarkable. LICA has non-obstructive dz. Antiplatelet Rx as per Neuro For repeat TOBIAS, timing to be determined pending clinical course. Was scheduled as outpatient today, but if new acute event may need to allow time for clinical stabilization.
[2016-12-22] MEDS: TIMOLOL 0.5% OPHTHALMIC SOL 5 ML BOTTLE OS SCH (09:52)
[2016-12-22] MEDS: hydrALAZINE HCL 50 MG TABLET (FP) PO SCH (09:53)
[2016-12-22] MEDS: CARVEDILOL 12.5 MG TABLET (FP) PO SCH (09:53)
[2016-12-22] MEDS: INSULIN SLIDING SCALE (NOVOLOG) 1 VIAL SQ SCH ×2 (09:54→12:32)
[2016-12-22] MEDS: TOPIRAMATE 25 MG TABLET (FP) PO SCH (09:57)
[2016-12-22] MEDS ORDERED: ASPIRIN 325 MG ENTERIC COATED TABLET (FP) PO SCH (10:00)
[2016-12-22] MEDS ORDERED: CLOPIDOGREL BISULFATE 75 MG TABLET (FP) PO SCH (10:00)
[2016-12-22] MEDS ORDERED: BRIMONIDINE TARTRATE 0.2% OPHTHALMIC 5 ML BOTTLE OS SCH (10:00)
[2016-12-22] MEDS ORDERED: FAMOTIDINE 20 MG/50 ML IVPB 50 ML IVPB SCH (10:00)
--- NOTE | 2016-12-22 10:07 | CONS ---
CARDIOLOGY CONSULTATION DATE OF CONSULTATION: 12/22/2016 REQUESTING PHYSICIAN: Benny Finley MD REASON FOR CONSULTATION: Stroke. HISTORY OF PRESENT ILLNESS: The patient is a 50-year-old female known to our service with end-stage renal disease on dialysis, diabetes, legally blind, hypertension, multiple prior strokes and TIAs, occluded right internal carotid artery, who presented to the emergency room last night with new onset of right-sided upper extremity shaking and slurred speech. Patient states her speech had fully recovered with outpatient speech therapy until yesterday. Head CT in the ER showed no acute changes, chronic microvascular disease. She was scheduled for an outpatient TOBIAS this morning, but was hospitalized. Previous stroke workups have shown no atrial fibrillation, TOBIAS previously has been unremarkable. She does have an occluded right internal carotid artery which is chronic and nonobstructive disease on the left. She denies chest pain, shortness of breath, palpitations, PND, orthopnea. PAST MEDICAL HISTORY: As outlined above. ALLERGIES: She has allergies to AMOXICILLIN, HYDROCODONE, MORPHINE, and NEOMYCIN. MEDICATIONS: Reviewed in the EMR and include hydralazine 50 b.i.d., carvedilol 12.5 b.i.d., aspirin 325 daily, Klonopin 0.5 b.i.d., Lasix 40 b.i.d., Lipitor 80 nightly, insulin, Pepcid, Plavix 75 daily, senna, Topamax, albuterol. FAMILY HISTORY: Noncontributory. 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 PHYSICAL EXAMINATION: Vital Signs: Afebrile, temperature 98.5; blood pressure 150/94; O2 saturation 97 on room air. Neck: No bruits. Heart: S1, S2. Regular. Chest: Clear. Abdomen: Obese, soft, nontender. Extremities: No edema. Telemetry has shown normal sinus rhythm. EKG shows normal sinus with low voltage and Q waves in V1 and V2 which might be due to soft tissue attenuation. LABORATORY DATA: White count 7.1, hematocrit 35.5, platelets 169. INR 1.09. Sodium 137, potassium 4.4, creatinine 9.2. LFTs normal. IMPRESSION: 1. End-stage renal disease on dialysis. 2. Diabetes. 3. Recurrent cerebrovascular accidents. 4. Known totally-included right internal carotid artery. PLAN: 1. Continue telemetry. 2. Antiplatelet therapy as per Neurology. 3. Timing of TOBIAS to be determined - had been scheduled today as outpatient, but if patient has sustained a new, acute CVA, may need to wait for a period of clinical stability prior to performing. We will follow. RONALDO RITTER M.D. MARIA [id number]
--- NOTE | 2016-12-22 10:42 | EKG ---
Test Reason : Blood Pressure : / mmHG Vent. Rate : 084 BPM Atrial Rate : 084 BPM P-R Int : 152 ms QRS Dur : 078 ms QT Int : 408 ms P-R-T Axes : 028 -18 026 degrees QTc Int : 482 ms POOR DATA QUALITY, INTERPRETATION MAY BE ADVERSELY AFFECTED NORMAL SINUS RHYTHM LOW VOLTAGE QRS SEPTAL INFARCT (CITED ON OR BEFORE 03-AUG-2016) ABNORMAL ECG WHEN COMPARED WITH ECG OF 03-AUG-2016 15:29, NO SIGNIFICANT CHANGE WAS FOUND Confirmed by CHERI ROGERS MD ([id number]) on 12/22/2016 10:42:16 AM Referred By: Confirmed By:CHERI ROGERS MD
--- NOTE | 2016-12-22 12:07 | PN ---
Progress Note (short form) - Note Progress Note: D/w Dr. Faye, does not suspect new neurologic event. Discussed TOBIAS with patient in regards to the risks vs benefits. As TOBIAS is not urgent will plan to reschedule as outpatient within the next few weeks. Pt is acceptable for discharge from a cardiac standpoint.
--- NOTE | 2016-12-22 12:12 | CONSULT ---
Consult - text type - Consultation Consultation Note: NEUROLOGY CONSULTATION is greatly appreciated: This 51 yo RH s woman with long h/o HTN, Chol and DM is complicated by ESRD on HD and advanced diabetic retinopathy. Know Right carotid occlusion. Known PVD, s/p toe amputations. Known diabetic peripheral neuropathy with gait dysfunction requiring a walker. On insulins, hydralazine, lipitor, carvedilol, famotidine, furosamide and clopidogrel. In addition she is followed by me for right hemicranial migraine headaches markedly reduced on topiramate (50 mg BID) and depression with anxiety and panic attacks. She remains poorly compliant with wellbutrin Rx (as she read about the side effect of insomnia which she already has. Over the last few months has had multiple ER visits and admissions as well as oput patient office visits for stereotyped episodes of stuttering, right hand shaking, heaviness in the right leg associated with crying and SOB. Admitted with the same last night concerned about out patient TOBIAS scheduled for today. CT of head (reviewed): bifrontal white matter hypodensity without discrete strokes, unchanged from prior studies. ANTONIO: No bruits. Cor reg. NEURO: Awake, alert, coop but sobbing and anxious. Speech fluent with variable hesitancy. Decreased vision (L>R) No drift. Normal strength. No tremors or cogwheeling. Areflexic in legs. No FTN dystaxia Decreased vib to mid-calf. Romberg + Shuffling gait. IMP: Non-focal exam. No sign of acute stroke. Severe diabetic peripheral neuropathy and retinopathy Known Right carotid occlusion Migraine headaches Anxiety/depression/panic attacks/probable conversion reaction. Suggest: OK to proceed with TOBIAS Check B12, glycosylated hemoglobin A1-C Begin buproprion XL 150 mg x 1 week then 300 mg qd. Encourage compliance. Cardiology, renal, endocrine, ophthalmology and neurology f/u as out patient. D/C planning for home health Aide (continue). Continue on Clopidogrel 75 mg qd. Follow BP carefully to avoid fluctuations. Thank you very much, Simone Aguirre MD
--- NOTE | 2016-12-22 13:26 | CONSULT ---
Consultation: CONSULT REQUEST: RENAL CONSULT HISTORY OF PRESENT ILLNESS: Patient is a 50 year old female with significant Past Medical History of Hypertension, TIA, ESRD, intracranial atherosclerosis, DM, Diabetic retinopathy , L retinal detachment, "legal blindness" who presented to the ED with Right sided weakness x 1 day. Patient states that along with weakness her right upper arm started shaking, right lower ext started feeling weak, had slurring of speech. Since she has a h/o TIA, she was worried that she had a mini stroke and hence came in to the ED. She says she had a similar episode in the past. Patient says she had a dialysis session on 12/21/16. Had her symptoms post dialysis. Denies chest pain, sob, cough, palpitation, nausea vomiting, abdominal pain. Sleep/Appetite normal. REVIEW OF SYSTEMS: None today. CONSTITUTIONAL: Absent: fever, chills, diaphoresis, generalized weakness, malaise, loss of appetite, weight change HEENT: Absent: rhinorrhea, nasal congestion, throat pain, throat swelling, difficulty swallowing, mouth swelling, ear pain, eye pain, visual changes CARDIOVASCULAR: Absent: chest pain, syncope, palpitations, irregular heart rate, lightheadedness , peripheral edema RESPIRATORY: Absent: cough, shortness of breath, dyspnea with exertion, orthopnea, wheezing, stridor, hemoptysis GASTROINTESTINAL: Absent: abdominal pain, abdominal distension, nausea, vomiting, diarrhea, constipation, melena, hematochezia GENITOURINARY: Absent: dysuria, frequency, urgency, hesitancy, hematuria, flank pain, genital pain MUSCULOSKELETAL: Absent: myalgia, arthralgia, joint swelling, back pain, neck pain SKIN: Absent: rash, itching, pallor HEMATOLOGIC/IMMUNOLOGIC: Absent: easy bleeding, easy bruising, lymphadenopathy, frequent infections ENDOCRINE: Absent: unexplained weight gain, unexplained weight loss, heat intolerance, cold intolerance NEUROLOGIC: Absent: headache, focal weakness or paresthesias, dizziness, unsteady gait, seizure, mental status changes, bladder or bowel incontinence PSYCHIATRIC: Absent: anxiety, depression, suicidal or homicidal ideation, hallucinations. PHYSICAL EXAMINATION Vital Signs - 24 hr 12/21/16 12/21/16 12/22/16 19:45 23:00 02:53 Temperature 98.6 F 97.8 F 98.1 F Pulse Rate 82 82 Pulse Rate [ 84 Left Radial] Respiratory 18 20 20 Rate Blood Pressure 144/92 139/81 Blood Pressure 152/90 [Left Arm] O2 Sat by Pulse 97 97 Oximetry (%) 12/22/16 06:01 Temperature 98.5 F Pulse Rate 75 Pulse Rate [ Left Radial] Respiratory 20 Rate Blood Pressure 150/94 Blood Pressure [Left Arm] O2 Sat by Pulse Oximetry (%) GENERAL: Middle aged obese female, Awake, alert, and fully oriented, in no acute distress. HEAD: Normal with no signs of trauma. EYES: EOM intact, no pallor or icterus. EARS, NOSE, THROAT: Ears normal. Moist mucous membranes. NECK: Supple. LUNGS: Breath sounds equal, clear to auscultation bilaterally. No wheezes, and no crackles. No accessory muscle use. HEART: Regular rate and rhythm, normal S1 and S2 without murmur. ABDOMEN: Soft, nontender, not distended, normoactive bowel sounds, no guarding, no rebound, no masses. No hepatomegaly or splenomegaly. MUSCULOSKELETAL: Normal range of motion at all joints. No bony deformities or tenderness. No CVA tenderness. UPPER EXTREMITIES: 2+ pulses, warm, well-perfused. No cyanosis. No clubbing. Cap refill <2 seconds. No peripheral edema. LOWER EXTREMITIES: 2+ pulses, warm, well-perfused. No calf tenderness. No peripheral edema. Amputation of left lateral two toes. NEUROLOGICAL: No facial droop, slurry speech. Gait not observed. PSYCHIATRIC: Cooperative. Good eye contact. Appropriate mood and affect. SKIN: Warm, dry, normal turgor, no rashes or lesions noted. Laboratory Results - last 24 hr 12/21/16 12/22/16 12/22/16 18:12 05:35 05:35 WBC 7.1 RBC 3.52 L Hgb 11.4 Hct 35.5 MCV 100.8 H MCH 32.5 MCHC 32.2 RDW 14.3 Plt Count 169 MPV 9.0 Neutrophils % 60.1 Lymphocytes % 27.4 D Monocytes % 7.9 Eosinophils % 4.0 Basophils % 0.6 Sodium 137 Potassium 4.4 Chloride 101 Carbon Dioxide 27 Anion Gap 9 BUN 34 H D Creatinine 9.2 H* D Creat Clearance w eGFR 4.55 POC Glucometer Random Glucose 166 H D Calcium 9.0 Phosphorus 5.1 H Magnesium 2.3 Total Bilirubin 0.3 D AST 17 ALT 29 Alkaline Phosphatase 48 Total Protein 6.6 Albumin 3.3 L Blood Type A POSITIVE Antibody Screen Negative 12/22/16 12/22/16 06:35 11:31 WBC RBC Hgb Hct MCV MCH MCHC RDW Plt Count MPV Neutrophils % Lymphocytes % Monocytes % Eosinophils % Basophils % Sodium Potassium Chloride Carbon Dioxide Anion Gap BUN Creatinine Creat Clearance w eGFR POC Glucometer 160 167 Random Glucose Calcium Phosphorus Magnesium Total Bilirubin AST ALT Alkaline Phosphatase Total Protein Albumin Blood Type Antibody Screen Active Medications Generic Name Dose Route Start Last Admin Trade Name Freq PRN Reason Stop Dose Admin Albuterol Sulfate 2 puff 12/21/16 22:03 Ventolin Hfa Inhaler - IH Q4H PRN SHORT OF BREATH/WHEEZING Aspirin 325 mg 12/22/16 10:00 12/22/16 09:53 Ecotrin - PO 325 mg DAILY MANDO Administration Atorvastatin Calcium 80 mg 12/22/16 22:00 Lipitor - PO HS MANDO Brimonidine Tartrate 1 drop 12/22/16 10:00 12/22/16 09:52 Alphagan 0.2% - OS 1 drop DAILY MANDO Administration Carvedilol 12.5 mg 12/21/16 22:15 12/22/16 09:53 Coreg - PO 12.5 mg BID MANDO Administration Clonazepam 0.5 mg 12/21/16 22:01 Klonopin - PO BID PRN ANXIETY Clopidogrel Bisulfate 75 mg 12/22/16 10:00 12/22/16 09:53 Plavix - PO 75 mg DAILY MANDO Administration Furosemide 40 mg 12/22/16 06:00 12/22/16 06:44 Lasix - PO Not Given BID@0600,1400 MANDO Hydralazine HCl 50 mg 12/21/16 22:00 12/22/16 09:53 Apresoline - PO 50 mg BID MANDO Administration Famotidine/Sodium Chloride 50 mls @ 100 mls/hr 12/22/16 10:00 12/22/16 09:51 Pepcid 20 Mg Premixed Ivpb - IVPB 100 mls/hr DAILY MANDO Administration Insulin Aspart 10 units 12/22/16 07:00 12/22/16 12:32 Novolog Vial SQ 10 units TIDAC MANDO Administration Protocol Insulin Aspart 1 vial 12/22/16 07:54 12/22/16 12:32 Novolog Vial Sliding Scale - SQ 2 units 0745,1145,1715,2200 MANDO Administration Protocol Senna 2 tab 12/21/16 21:48 12/21/16 23:10 Senna - PO 2 tab HS PRN Administration CONSTIPATION Timolol Maleate 1 drop 12/21/16 22:00 12/22/16 09:52 Timoptic 0.5% OS 1 drop BID MANDO Administration Topiramate 50 mg 12/21/16 22:00 12/22/16 09:57 Topamax - PO Not Given BID MANDO Patient is a 50 year old female with significant Past Medical History of Hypertension, TIA, ESRD, intracranial atherosclerosis, DM, Diabetic retinopathy , L retinal detachment, "legal blindness" who presented to the ED with Right sided weakness x 1 day admitted to r/o stroke/TIA. ASSESSMENT: 1. Right sided weakness- TIA/Stroke ruled out, as per Neuro 2. ESRD (MWF) 3. Hypertension-controlled 4. Diabetes Mellitus 5. Asthma-not in exacerbation 6. Sleep apnea PLAN: ESRD MWF Creatinine increased from 7.5----> 9.2 today. Patient goes to [facility] ([facility]) for dialysis. As per primary team, she is stable to be discharged today. Patient will go for dialysis tomorrow. F/up with renal as outpatient Avoid nephrotoxic drugs Case discussed with Dr. Sharma. Dispo: We will continue to follow the patient. Thank you for this consultative opportunity. Visit type - Emergency Visit Emergency Visit: Yes ED Registration Date: 12/21/16 Care time: The patient presented to the Emergency Department on the above date and was hospitalized for further evaluation of their emergent condition. - New Patient This patient is new to me today: Yes Date on this admission: 12/22/16 - Critical Care Critical Care patient: No
--- NOTE | 2016-12-22 15:07 | DS ---
Physical Exam: SUBJECTIVE: Patient seen and examined OBJECTIVE: Vital Signs Period Temp Pulse Resp BP Sys/[place] Pulse Ox Last 24 Hr 97.8 F-98.6 F 75-84 18-20 139-152/81-94 97-97 PHYSICAL EXAM GENERAL: The patient is awake, alert, and fully oriented, in no acute distress. HEAD: Normal with no signs of trauma. EYES: PERRL, extraocular movements intact, sclera anicteric, conjunctiva clear. ENT: Ears normal, nares patent, oropharynx clear without exudates, moist mucous membranes. NECK: Trachea midline, full range of motion, supple. LUNGS: Breath sounds equal, clear to auscultation bilaterally, no wheezes, no crackles, no accessory muscle use. HEART: Regular rate and rhythm, S1, S2 without murmur, rub or gallop. ABDOMEN: Soft, nontender, nondistended, normoactive bowel sounds, no guarding, no rebound, no hepatosplenomegaly, no masses. EXTREMITIES: 2+ pulses, warm, well-perfused, no edema. NEUROLOGICAL: Cranial nerves II through XII grossly intact. Normal speech, gait not observed. PSYCH: Normal mood, normal affect. SKIN: Warm, dry, normal turgor, no rashes or lesions noted. LABS Laboratory Results - last 24 hr 12/21/16 12/22/16 12/22/16 18:12 05:35 05:35 WBC 7.1 RBC 3.52 L Hgb 11.4 Hct 35.5 MCV 100.8 H MCH 32.5 MCHC 32.2 RDW 14.3 Plt Count 169 MPV 9.0 Neutrophils % 60.1 Lymphocytes % 27.4 D Monocytes % 7.9 Eosinophils % 4.0 Basophils % 0.6 Sodium 137 Potassium 4.4 Chloride 101 Carbon Dioxide 27 Anion Gap 9 BUN 34 H D Creatinine 9.2 H* D Creat Clearance w eGFR 4.55 POC Glucometer Random Glucose 166 H D Hemoglobin A1c % Calcium 9.0 Phosphorus 5.1 H Magnesium 2.3 Total Bilirubin 0.3 D AST 17 ALT 29 Alkaline Phosphatase 48 Total Protein 6.6 Albumin 3.3 L Blood Type A POSITIVE Antibody Screen Negative 12/22/16 12/22/16 12/22/16 05:35 06:35 11:31 WBC RBC Hgb Hct MCV MCH MCHC RDW Plt Count MPV Neutrophils % Lymphocytes % Monocytes % Eosinophils % Basophils % Sodium Potassium Chloride Carbon Dioxide Anion Gap BUN Creatinine Creat Clearance w eGFR POC Glucometer 160 167 Random Glucose Hemoglobin A1c % 8.4 H D Calcium Phosphorus Magnesium Total Bilirubin AST ALT Alkaline Phosphatase Total Protein Albumin Blood Type Antibody Screen HOSPITAL COURSE: Date of Admission:12/21/16 Date of Discharge: 12/22/16 Discharge Summary Reason For Visit: TRANSIENT CEREBRAL ISCHEMIA Current Active Problems TIA (transient ischemic attack) (Acute) Diabetes (Chronic) ESRD (end stage renal disease) (Chronic) Hypertension (Chronic) Paresthesias in left hand (Chronic) - Home Medications Comprehensive Discharge Medication List: Ambulatory Orders Albuterol Sulfate Inhaler - [Ventolin HFA Inhaler -] 2 inh PO BID PRN 08/03/16 Atorvastatin Ca [Lipitor] 80 mg PO HS 08/03/16 Benzonatate 100 mg PO TID PRN 08/03/16 Bisacodyl [Laxative] 10 mg PO BID PRN 08/03/16 Brimonidine Tartrate/Timolol [Combigan 0.2%-0.5% Eye Drops] 2 drop OU DAILY 01/10 Carvedilol [Coreg -] 12.5 mg PO BID 08/03/16 Clonazepam [Klonopin -] 0.5 mg PO BID 08/03/16 Famotidine [Pepcid -] 20 mg PO DAILY 08/03/16 Furosemide [Lasix] 40 mg PO BID 08/03/16 Insulin Aspart [Novolog] 10 unit SQ AC 08/03/16 Lidocaine/Prilocaine Cream [Lidocaine-Prilocaine Cream -] 1 applic TP PRN PRN Mometasone/Formoterol [Dulera 100 Mcg/5 Mcg Inhaler] 2 inh IH BID PRN 08/03/16 Ondansetron [Zofran -] 4 mg PO DAILY PRN 08/03/16 Sennosides [Senna] 2 tab PO DAILY 08/03/16 Hydralazine HCl [Apresoline -] 50 mg PO BID tablet 08/06/16 Clopidogrel Bisulfate [Plavix -] 75 mg PO DAILY 08/26/16 Aspirin Coated [Ecotrin -] 325 mg PO DAILY 11/07/16 Cetirizine HCl [Zyrtec -] 5 mg PO DAILY 11/15/16 Topamax 50 mg PO BID 11/15/16 Wellbutrin - 150 mg PO DAILY 11/15/16
--- NOTE | 2016-12-22 15:34 | PN ---
Teaching Attending Note Name of Resident: Ranjana Casillas (Nephrology) ATTENDING PHYSICIAN STATEMENT I saw and evaluated the patient. I reviewed the resident's note and discussed the case with the resident. I agree with the resident's findings and plan as documented. Nephrology Pt presented with right arm weakness after HD yesterday. She was last dialyzed yesterday. pmhx esrd htn dm anemia anxiety tia pshx av access allergies amoxicillin, hydrocodone, morphine, neomycin ros arm weakness Current Medications Generic Name Dose Route Start Last Admin Trade Name Freq PRN Reason Stop Dose Admin Albuterol Sulfate 2 puff 12/21/16 22:03 Ventolin Hfa Inhaler - IH Q4H PRN SHORT OF BREATH/WHEEZING Aspirin 325 mg 12/22/16 10:00 12/22/16 09:53 Ecotrin - PO 325 mg DAILY MANDO Administration Atorvastatin Calcium 80 mg 12/22/16 22:00 Lipitor - PO HS MANDO Brimonidine Tartrate 1 drop 12/22/16 10:00 12/22/16 09:52 Alphagan 0.2% - OS 1 drop DAILY MANDO Administration Carvedilol 12.5 mg 12/21/16 22:15 12/22/16 09:53 Coreg - PO 12.5 mg BID MANDO Administration Clonazepam 0.5 mg 12/21/16 22:01 Klonopin - PO BID PRN ANXIETY Clopidogrel Bisulfate 75 mg 12/22/16 10:00 12/22/16 09:53 Plavix - PO 75 mg DAILY MANDO Administration Furosemide 40 mg 12/22/16 06:00 12/22/16 14:39 Lasix - PO 40 mg BID@0600,1400 MANDO Administration Hydralazine HCl 50 mg 12/21/16 22:00 12/22/16 09:53 Apresoline - PO 50 mg BID MANDO Administration Famotidine/Sodium Chloride 50 mls @ 100 mls/hr 12/22/16 10:00 12/22/16 09:51 Pepcid 20 Mg Premixed Ivpb - IVPB 100 mls/hr DAILY MANDO Administration Insulin Aspart 10 units 12/22/16 07:00 12/22/16 12:32 Novolog Vial SQ 10 units TIDAC MANDO Administration Protocol Insulin Aspart 1 vial 12/22/16 07:54 12/22/16 12:32 Novolog Vial Sliding Scale - SQ 2 units 0745,1145,1715,2200 MANDO Administration Protocol Senna 2 tab 12/21/16 21:48 12/21/16 23:10 Senna - PO 2 tab HS PRN Administration CONSTIPATION Timolol Maleate 1 drop 12/21/16 22:00 12/22/16 09:52 Timoptic 0.5% OS 1 drop BID MANDO Administration Topiramate 50 mg 12/21/16 22:00 12/22/16 09:57 Topamax - PO Not Given BID [facility] Last Vital Signs Temp Pulse Resp BP Pulse Ox 98.5 F 75 20 150/94 97 12/22/16 06:01 12/22/16 06:01 12/22/16 09:00 12/22/16 06:01 12/22/16 09:00 Laboratory Tests 12/22/16 12/22/16 05:35 05:35 Hgb 11.4 Sodium 137 Potassium 4.4 BUN 34 H D Creatinine 9.2 H* D Impression 1. ESRD 2. CVA 3. DM 4. HLD 5. HTN 6. anemia 7. anxiety 8. infected right foot ulcer Plan - pt has HD scheduled as outpt tomorrow - she was last dialyzed yesterday - neuro follow up - case discussed with manager medical affairs
[2016-12-22 16:00] VITALS: BP 142/84; PULSE 74; TEMP 98.2
[2016-12-22] MEDS ORDERED: ATORVASTATIN CA 80 MG TABLET (FP) PO SCH (22:00)
== END 2016-12-22 16:52 | disposition home health service (06) ==
LOC: JER 14:56 → JERBED 18:08 → J4W 20:30
PROVIDERS: ADMIT Internal Medicine; ATTEND Registered Nurse
PROC: 3E013VG Introduction of Insulin into Subcutaneous Tissue, Percutaneous Approach (ICD-10-PCS; principal; 2016-12-21)
PROC: 3E0337Z Introduction of Electrolytic and Water Balance Substance into Peripheral Vein, Percutaneous Approach (ICD-10-PCS; 2016-12-21)
DX: G45.9 Transient cerebral ischemic attack, unspecified (principal); I12.0 Hypertensive chronic kidney disease with stage 5 chronic kidney disease or end stage renal disease; I67.2 Cerebral atherosclerosis; E11.22 Type 2 diabetes mellitus with diabetic chronic kidney disease; E11.319 Type 2 diabetes mellitus with unspecified diabetic retinopathy without macular edema; N18.6 End stage renal disease; Z99.2 Dependence on renal dialysis; Z79.4 Long term (current) use of insulin; Z86.73 Personal history of transient ischemic attack (TIA), and cerebral infarction without residual deficits; D64.9 Anemia, unspecified; J45.909 Unspecified asthma, uncomplicated; G47.30 Sleep apnea, unspecified; H54.8 Legal blindness, as defined in USA; H33.052 Total retinal detachment, left eye; Z88.1 Allergy status to other antibiotic agents; Z88.2 Allergy status to sulfonamides; Z88.6 Allergy status to analgesic agent; Z91.018 Allergy to other foods; Z79.82 Long term (current) use of aspirin; Z79.01 Long term (current) use of anticoagulants; L97.411 Non-pressure chronic ulcer of right heel and midfoot limited to breakdown of skin; L08.9 Local infection of the skin and subcutaneous tissue, unspecified
CPT/HCPCS: 36415; 70450-TC; 71010-TC; 80053; 82465; 82553; 82607; 83036; 83718; 83721; 83735; 84100; 84478; 84484; 85025; 85610; 86850; 86900; 86901; 93005; 93010; 97116-GP; 97161-GP; 99285-25; G0378

== ENCOUNTER 2017-01-02 10:03 | Inpatient (IN) | payer OTHER ==
[2017-01-02 12:16] LABS: BASOPHIL 0.9 % (0-2.0); EOSINOPHIL 3.9 % (0-4.5); MCH 32.1 pg (25.7-33.7); MCHC 31.8 g/dl (32.0-36.0); MEAN CELL VOLUME 100.9 fl (80-96); MEAN PLT VOLUME 8.9 fl (7.5-11.1); NEUTROPHILS 69.3 % (42.8-82.8); PLATELET COUNT 193 K/MM3 (134-434); RDW 14.7 % (11.6-15.6); WHITE BLOOD COUNT 7.4 K/mm3 (4.0-10.0)
--- NOTE | 2017-01-02 12:18 | PDOC ---
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 Pt states that she has been seen by doctors for this issue on multiple occasions, but it has not resolved. Pt also reports that she is concerned that her AVF, which is also in this arm, is not functioning properly. She states that there is a new "burning" and numbness in the arm around the AVF. She reports that the nurses have had difficulty recently in accessing the AVF recently, requiring multiple sticks each time. She states that she had a full HD session on Monday. Of note, pt was admitted last month for R sided weakness and was seen by neuro. Pt had negative imaging and was [place]'ed home. The patient denies headache, tingling, and vision changes. Denies trauma to head or neck. Denies chest pain, shortness of breath, headache, and dizziness. Denies fever, chills, nausea, vomit, diarrhea, and constipation. Denies dysuria, frequency, urgency, and hematuria. Allergies: Amoxicillin, Hydrocodone bitartrate, Morphine, Neomycin, Oxycodone HCl, Rofecoxib, Sulfonamide antibiotics, Tramadol, Vancomycin, Heparin, Flu shot. Past surgical history: Right AV graft. Social history: No reported cigarette, alcohol, or drug use. PCP/Staff Genetic Counselor: Dr. Gunter Neurologist: Dr. Faye Vascular Surgeon: Dr. Lennox Ch " 01/02/17 13:19 Past History - Past Medical History Allergies/Adverse Reactions: Allergies Allergy/AdvReac Type Severity Reaction Status Date / Time amoxicillin [Amoxicillin] Allergy Severe Itching Verified 01/02/17 10:26 hydrocodone bitartrate Allergy Severe Hives,ITCHI Verified 01/02/17 10:26 [From Vicodin] NG morphine Allergy Severe Itching Verified 01/02/17 10:26 neomycin [Neomycin] Allergy Severe Swelling Verified 01/02/17 10:26 oxycodone HCl [From Percocet] Allergy Severe Itching,HIV Verified 01/02/17 10:26 ES rofecoxib [From Vioxx] Allergy Severe Hives Verified 01/02/17 10:26 Sulfa (Sulfonamide Allergy Severe sclera Verified 01/02/17 10:26 Antibiotics) reddened,ITCHING tramadol Allergy Severe Vomiting Verified 01/02/17 10:26 tomato Allergy Verified 01/02/17 10:26 grapefruit [Grapefruit] AdvReac Severe CAN'T TAKE Verified 01/02/17 10:26 BECAUSE OF MEDICATIONS vancomycin AdvReac Mild red man Verified 01/02/17 10:26 syndrome Heparin Analogues AdvReac Unknown Verified 01/02/17 10:26 [Heparin Agents] flu shot Allergy Severe GETS FLU Uncoded 01/02/17 10:26 SYMPTOMS grape juice AdvReac Severe Uncoded 01/02/17 10:26 Home Medications: Ambulatory Orders Albuterol Sulfate Inhaler - [Ventolin HFA Inhaler -] 2 inh PO BID PRN 08/03/16 Atorvastatin Ca [Lipitor] 80 mg PO HS 08/03/16 Benzonatate 100 mg PO TID PRN 08/03/16 Bisacodyl [Laxative] 10 mg PO BID PRN 08/03/16 Brimonidine Tartrate/Timolol [Combigan 0.2%-0.5% Eye Drops] 2 drop OU DAILY 01/10 Carvedilol [Coreg -] 12.5 mg PO BID 08/03/16 Clonazepam [Klonopin -] 0.5 mg PO BID 08/03/16 Famotidine [Pepcid -] 20 mg PO DAILY 08/03/16 Furosemide [Lasix] 40 mg PO BID 08/03/16 Insulin Aspart [Novolog] 10 unit SQ AC 08/03/16 Lidocaine/Prilocaine Cream [Lidocaine-Prilocaine Cream -] 1 applic TP PRN PRN Mometasone/Formoterol [Dulera 100 Mcg/5 Mcg Inhaler] 2 inh IH BID PRN 08/03/16 Ondansetron [Zofran -] 4 mg PO DAILY PRN 08/03/16 Sennosides [Senna] 2 tab PO DAILY 08/03/16 Hydralazine HCl [Apresoline -] 50 mg PO BID tablet 08/06/16 Clopidogrel Bisulfate [Plavix -] 75 mg PO DAILY 08/26/16 Aspirin Coated [Ecotrin -] 325 mg PO DAILY 11/07/16 Cetirizine HCl [Zyrtec -] 5 mg PO DAILY 11/15/16 Bupropion HCl [Wellbutrin Xl -] 300 mg PO DAILY #30 tab.sr.24h 12/22/16 Topiramate [Topamax] 50 mg PO BID 01/02/17 Anemia: No Asthma: Yes Cancer: No Cardiac Disorders: No CVA: Yes (TIAs october 26, 2016) COPD: No CHF: No Dementia: No Diabetes: Yes Dialysis: Yes (m,w,f) GI Disorders: No Disorders: No HTN: Yes Hypercholesterolemia: Yes Liver Disease: No Psychiatric Problems: Yes (ANXIETY.) Seizures: No Thyroid Disease: No - Surgical History Abdominal Surgery: No Appendectomy: No Cardiac Surgery: Yes (AV graft right) Cholecystectomy: No Lung Surgery: No Neurologic Surgery: No Orthopedic Surgery: No - Immunization History Td Vaccination: No TDAP Vaccination: No Immunization Up to Date: Yes - Suicide/Smoking/Psychosocial Hx Smoking Status: No Smoking History: Never smoked Have you smoked in the past 12 months: No Number of Cigarettes Smoked Daily: 0 Hx Alcohol Use: No Drug/Substance Use Hx: No Substance Use Type: None Hx Substance Use Treatment: No Review of Systems - Review of Systems Comments:: 01/02/17 12:49 "GENERAL/CONSTITUTIONAL: No fever or chills. No weakness. HEAD, EYES, EARS, NOSE AND THROAT: No change in vision. No ear pain or discharge. No sore throat. CARDIOVASCULAR: No chest pain or shortness of breath. RESPIRATORY: No cough, wheezing, or hemoptysis. GASTROINTESTINAL: No nausea, vomiting, diarrhea or constipation. GENITOURINARY: No dysuria, frequency, or change in urination. MUSCULOSKELETAL: No joint pain. No back pain. SKIN: No rash NEUROLOGIC: + RUE heaviness, No headache, vertigo, loss of consciousness, or change in strength/sensation. ENDOCRINE: No increased thirst. No abnormal weight change. HEMATOLOGIC/LYMPHATIC: No anemia, easy bleeding, or history of blood clots. ALLERGIC/IMMUNOLOGIC: No hives or skin allergy. " *Physical Exam - Vital Signs Last Vital Signs Temp Pulse Resp BP Pulse Ox 98.4 F 84 18 162/93 100 01/02/17 10:21 01/02/17 10:21 01/02/17 10:21 01/02/17 10:21 01/02/17 10:21 - Physical Exam Comments: 01/02/17 12:49 "GENERAL: Awake, alert, and fully oriented, in no acute distress HEAD: No signs of trauma EYES: PERRLA, EOMI, sclera anicteric, conjunctiva clear ENT: Auricles normal inspection, hearing grossly normal, nares patent, oropharynx clear without exudates. Moist mucosa NECK: Normal ROM, supple, no lymphadenopathy, JVD, or masses LUNGS: Breath sounds equal, clear to auscultation bilaterally. No wheezes, and no crackles HEART: Regular rate and rhythm, normal S1 and S2, no murmurs, rubs or gallops ABDOMEN: Soft, nontender, normoactive bowel sounds. No guarding, no rebound. No masses EXTREMITIES: RUE with AVF, palpable thrill, compressible. NEUROLOGICAL: Cranial nerves II through XII grossly intact. stuttering speech, 4/5 strength RUE and RLE, 5/5 strength and sensation LUE and LLE SKIN: Warm, Dry, normal turgor, no rashes or lesions noted. " ED Treatment Course - LABORATORY CBC & Chemistry Diagram: 01/03/17 07:35 01/03/17 07:35 - RADIOLOGY Radiology Studies Ordered: Category Date Time Status HEAD CT WITHOUT CONTRAST [CT] Stat CT Scan 01/02/17 11:44 Ordered UPPER EXTREMITY DOPPLER SINGLE [VASC] Stat Vascular 01/02/17 11:45 Ordered Medical Decision Making - Medical Decision Making 01/02/17 12:15 51 F with RUE weakness and numbness. Pt has had similar complaint before with negative work up and evaluation by neurologist Dr. Faye. However, given new objective complaint of numbness and "burning", will obtain repeat imaging. - Labs - CTH - Call Dr. Faye - US of RUE to evaluate AVF 01/02/17 13:50 CTH shows acute frontal lobe infarct with petechial hemorrhages. Spoke with Dr. Faye, pt's neurologist. Informed him of results and plan to admit to hospital. MRI/MRA ordered. Case discussed in detail with admitting physician including history, physical exam and ancillary studies. Admitting physician has assumed care for the patient and will follow all pending diagnostics and complete the evaluation and treatment. *DC/Admit/Observation/Transfer Diagnosis at time of Disposition: CVA (cerebral vascular accident) - Discharge Dispostion Admit: Yes - Attestations Physician Attestion: 01/03/17 12:57 I, Dr. Bharat Maravilla MD, attest that this document has been prepared under my direction and personally reviewed by me in its entirety. I further attest, that it accurately reflects all work, treatment, procedures and medical decision -making performed by me.
[2017-01-02 12:29] LABS: INR 1.04 (0.82-1.09); PROTHROMBIN TIME (PATIENT) 11.4 SEC (9.98-11.88)
[2017-01-02 12:32] LABS: ACTIVATED PTT 30.4 SECONDS (26.9-34.4); ALBUMIN 3.7 g/dl (3.4-5.0); ANION GAP 10 (8-16); CALCIUM 9.9 mg/dL (8.5-10.1); CO2 26 mmol/L (21-32); GLUCOSE,RANDOM 142 mg/dL (74-106); SGOT/AST 17 U/L (15-37); SGPT/ALT 34 U/L (12-78)
[2017-01-02 12:38] LABS: ALK PHOS 55 U/L (45-117); BILIRUBIN,TOTAL 0.5 mg/dL (0.2-1.0); TOT PROT 7.4 g/dl (6.4-8.2)
[2017-01-02 12:46] LABS: CREATININE 12.5 mg/dL (0.55-1.02)
[2017-01-02] MEDS ORDERED: ALBUTEROL SO4 18 GM HFA INHALER IH PRN (15:21)
[2017-01-02] MEDS ORDERED: LIDOCAINE 2.5%/PRILOCAINE 2.5% (5 Gram/TUBE) TP PRN (15:21)
[2017-01-02] MEDS ORDERED: ONDANSETRON 4 MG TABLET PO PRN (15:21)
[2017-01-02] MEDS ORDERED: BUDESONIDE/FORMETEROL FUMARATE 80/4.5 mcg INHALER IH ONE (15:25)
--- NOTE | 2017-01-02 16:43 | HP ---
CHIEF COMPLAINT: right sided weakness, numbness of AVF PCP: Dr. Gunter HISTORY OF PRESENT ILLNESS: 51 year old female with a past medical history of CVA, HTN, HLD, DM, left retinal detachment, left eye blindness, ESRD on HD (MWF), presents to to the emergency room with two weeks of right arm heaviness and right arm numbness around AV fistula site. Patient denies DEJESUS, new changes in vision, chest pain, sob, n, v, dizziness, palpitations, LOC, tremors. Patient was recently admitted for similar symptoms, cardio and neuro work up negative. ER course: Head CT acute infarction central in the left superior frontal gyrus at the vertex, infarction left ROBIN/MCA. Local sulci effacement and foci petechial hemorrhage within infarct. Recent Travel: PAST MEDICAL HISTORY: as above PAST SURGICAL HISTORY: Social History: Smoking:no Alcohol:no Drugs: no Family History: Allergies amoxicillin [Amoxicillin] Allergy (Severe, Verified 01/02/17 10:26) Itching hydrocodone bitartrate [From Vicodin] Allergy (Severe, Verified 01/02/17 10:26) Hives,ITCHING morphine Allergy (Severe, Verified 01/02/17 10:26) Itching neomycin [Neomycin] Allergy (Severe, Verified 01/02/17 10:26) Swelling oxycodone HCl [From Percocet] Allergy (Severe, Verified 01/02/17 10:26) Itching,HIVES rofecoxib [From Vioxx] Allergy (Severe, Verified 01/02/17 10:26) Hives Sulfa (Sulfonamide Antibiotics) Allergy (Severe, Verified 01/02/17 10:26) sclera reddened,ITCHING tramadol Allergy (Severe, Verified 01/02/17 10:26) Vomiting tomato Allergy (Verified 01/02/17 10:26) grapefruit [Grapefruit] Adverse Reaction (Severe, Verified 01/02/17 10:26) CAN'T TAKE BECAUSE OF MEDICATIONS vancomycin Adverse Reaction (Mild, Verified 01/02/17 10:26) red man syndrome Heparin Analogues [Heparin Agents] Adverse Reaction (Unknown, Verified 01/02/17 10:26) OF 09/14/14, PT IS ABLE TO TAKE WITH MONITORING OF SYMPTOMS flu shot Allergy (Severe, Uncoded 01/02/17 10:26) GETS FLU SYMPTOMS grape juice Adverse Reaction (Severe, Uncoded 01/02/17 10:26) HOME MEDICATIONS: Home Medications Medication Instructions Recorded Albuterol Sulfate Inhaler - 2 inh PO BID PRN 08/03/16 [Ventolin HFA Inhaler -] Atorvastatin Ca [Lipitor] 80 mg PO HS 08/03/16 Benzonatate 100 mg PO TID PRN 08/03/16 Bisacodyl [Laxative] 10 mg PO BID PRN 08/03/16 Brimonidine Tartrate/Timolol 2 drop OU DAILY 08/03/16 [Combigan 0.2%-0.5% Eye Drops] Carvedilol [Coreg -] 12.5 mg PO BID 08/03/16 Clonazepam [Klonopin -] 0.5 mg PO BID 08/03/16 Famotidine [Pepcid -] 20 mg PO DAILY 08/03/16 Furosemide [Lasix] 40 mg PO BID 08/03/16 Insulin Aspart [Novolog] 10 unit SQ AC 08/03/16 Lidocaine/Prilocaine Cream 1 applic TP PRN PRN 08/03/16 [Lidocaine-Prilocaine Cream -] Mometasone/Formoterol [Dulera 100 2 inh IH BID PRN 08/03/16 Mcg/5 Mcg Inhaler] Ondansetron [Zofran -] 4 mg PO DAILY PRN 08/03/16 Sennosides [Senna] 2 tab PO DAILY 08/03/16 Hydralazine HCl [Apresoline -] 50 mg PO BID tablet 08/06/16 Clopidogrel Bisulfate [Plavix -] 75 mg PO DAILY 08/26/16 Aspirin Coated [Ecotrin -] 325 mg PO DAILY 11/07/16 Cetirizine HCl [Zyrtec -] 5 mg PO DAILY 11/15/16 Bupropion HCl [Bupropion Xl] 150 mg PO DAILY #7 tab.er.24h 12/22/16 Bupropion HCl [Wellbutrin Xl -] 300 mg PO DAILY #30 tab.sr.24h 12/22/16 Topiramate [Topamax] 50 mg PO BID 01/02/17 REVIEW OF SYSTEMS CONSTITUTIONAL: Absent: fever, chills, diaphoresis, generalized weakness, malaise, loss of appetite, weight change HEENT: Absent: rhinorrhea, nasal congestion, throat pain, throat swelling, difficulty swallowing, mouth swelling, ear pain, eye pain, visual changes CARDIOVASCULAR: Absent: chest pain, syncope, palpitations, irregular heart rate, lightheadedness , peripheral edema RESPIRATORY: Absent: cough, shortness of breath, dyspnea with exertion, orthopnea, wheezing, stridor, hemoptysis GASTROINTESTINAL: Absent: abdominal pain, abdominal distension, nausea, vomiting, diarrhea, constipation, melena, hematochezia GENITOURINARY: Absent: dysuria, frequency, urgency, hesitancy, hematuria, flank pain, genital pain MUSCULOSKELETAL: Absent: myalgia, arthralgia, joint swelling, back pain, neck pain SKIN: Absent: rash, itching, pallor HEMATOLOGIC/IMMUNOLOGIC: Absent: easy bleeding, easy bruising, lymphadenopathy, frequent infections ENDOCRINE: Absent: unexplained weight gain, unexplained weight loss, heat intolerance, cold intolerance NEUROLOGIC: Absent: headache, focal weakness or paresthesias, dizziness, unsteady gait, seizure, mental status changes, bladder or bowel incontinence PSYCHIATRIC: Absent: anxiety, depression, suicidal or homicidal ideation, hallucinations. PHYSICAL EXAMINATION GENERAL: Awake, alert, and fully oriented, in no acute distress. HEAD: Normal with no signs of trauma. EYES: Pupils equal, round and reactive to light, extraocular movements intact, sclera anicteric, conjunctiva clear. No lid lag. EARS, NOSE, THROAT: Ears normal, nares patent, oropharynx clear without exudates. Moist mucous membranes. NECK: Normal range of motion, supple without lymphadenopathy, JVD, or masses. LUNGS: Breath sounds equal, clear to auscultation bilaterally. No wheezes, and no crackles. No accessory muscle use. HEART: Regular rate and rhythm, normal S1 and S2 without murmur, rub or gallop. ABDOMEN: Soft, nontender, not distended, normoactive bowel sounds, no guarding, no rebound, no masses. No hepatomegaly or splenomegaly. MUSCULOSKELETAL: Normal range of motion at all joints. No bony deformities or tenderness. No CVA tenderness. UPPER EXTREMITIES: 2+ pulses, warm, well-perfused. No cyanosis. No clubbing. No peripheral edema. Right AVF; with thrill LOWER EXTREMITIES: 2+ pulses, warm, well-perfused. No calf tenderness. No peripheral edema. NEUROLOGICAL: -Mental: alert and oriented x3 ; -Cranial nerves III-XII intact. Left eye blindness -Normal speech -Motor: right muscle groups including shoulder shrug ; biceps/triceps; wrist ; hip, knee flexion and extension 4/5 left muscle groups including shoulder shrug; biceps/triceps; wrist; ; hip. knee flexion and extension 5/5 plantar/doriflexion on right 3-5; left 5/5 -sensory intact -symmetry facial ; no droop -reflexes wnl; PSYCHIATRIC: depressed mood; anxious SKIN: Warm, dry, normal turgor, no rashes or lesions noted, normal capillary refill. ASSESSMENT/PLAN: 51 year old female with a past medical history of CVA, ESRD, DM, HTN, HLD, presents to the emergency dept, with c/o right arm weakness and tingling, found to have acute infarction. #Acute CVA -left ROBIN/MCA with petechial hemmorage -secondary stroke prevention; -HOB >15deg -cardiac monitoring -ecg -cont statin -cont ASA 325 po qd -cont plavix -neuro consulted cont antiplatelet and keep bp wnl -brain MRI.MRA, neck mra -cardio consulted plan foe TOBIAS -start work up for hypercoaguable state #AVF tingling r/o fistula failure -vascular study -vascular consult #HTN: -cont home meds: keep normal pressure due to extensive vascular disease #DM: -insulin ss -bgm achs #depression -cont wellbutrin FEN: FLuids: po ElectrolytesL wnl Diet: diabetic VTE prophylaxis: hepain sq Dispo: tele ; further work up pending Problem List - Problem (1) CVA (cerebral vascular accident) Code(s): I63.9 - CEREBRAL INFARCTION, UNSPECIFIED (2) Diabetes Code(s): E11.9 - TYPE 2 DIABETES MELLITUS WITHOUT COMPLICATIONS Qualifiers: Diabetes mellitus type: type 2 Diabetes mellitus complication status: with kidney complications Diabetes mellitus complication detail: with chronic kidney disease Diabetes mellitus residential insulin use: with residential use Chronic kidney disease stage: on chronic dialysis Qualified Code(s): E11.22 - Type 2 diabetes mellitus with diabetic chronic kidney disease ; E11.22 - Type 2 diabetes mellitus with diabetic chronic kidney disease; E11.22 - Type 2 diabetes mellitus with diabetic chronic kidney disease; E11.22 - Type 2 diabetes mellitus with diabetic chronic kidney disease; E11.22 - Type 2 diabetes mellitus with diabetic chronic kidney disease; N18.1 - Chronic kidney disease, stage 1; N18.1 - Chronic kidney disease, stage 1; Z79.4 - shelter (current) use of insulin; Z79.4 - salvage determiner (current) use of insulin; Z79.4 - shelter (current) use of insulin; Z79.4 - salvage determiner (current) use of insulin (3) ESRD (end stage renal disease) Code(s): N18.6 - END STAGE RENAL DISEASE (4) Hypertension Code(s): I10 - ESSENTIAL (PRIMARY) HYPERTENSION Qualifiers: Hypertension type: essential hypertension Qualified Code(s): I10 - Essential (primary) hypertension; I10 - Essential (primary) hypertension; I10 - Essential (primary) hypertension (5) Paresthesias in left hand Code(s): R20.2 - PARESTHESIA OF SKIN (6) Allergy to multiple antibiotics Code(s): Z88.1 - ALLERGY STATUS TO OTHER ANTIBIOTIC AGENTS STATUS (7) Anemia Code(s): D64.9 - ANEMIA, UNSPECIFIED (8) Arteriovenous fistula Code(s): I77.0 - ARTERIOVENOUS FISTULA, ACQUIRED Visit type - Emergency Visit Emergency Visit: Yes ED Registration Date: 01/02/17 Care time: The patient presented to the Emergency Department on the above date and was hospitalized for further evaluation of their emergent condition. - New Patient This patient is new to me today: Yes Date on this admission: 01/02/17 - Critical Care Critical Care patient: No
[2017-01-02 17:39] VITALS: BMI 40.6
--- NOTE | 2017-01-02 18:33 | CONSULT ---
Consult Consult Specialty:: Nephrology - History of Present Illness Chief Complaint: right arm heaviness History of Present Illness: Pt is a 51 year old female with pmhx of HTN, TIA, cranial atherosclerosis, anemia, asthma, insulin dependent DM, diabetic retinopathy, total blindness of the left eye, and ESRD on MWF HD, who presents to the emergency department with right arm heaviness x2 weeks. She was recently hospitalized for similar symptoms. She was found to have an acute CVA. She last dialyzed on Monday. She denies shortness of breath. - History Source History Provided By: Patient - Past Medical History SURGERY AID: Yes: CVA Cardio/Vascular: Yes: HTN, Hyperlipdemia, Other (Peripheral vascular disease) Pulmonary: Yes: Asthma, Sleep Apnea Gastrointestinal: Yes: Constipation Renal/: Yes: Renal Failure, Hemodialysis ...LMP: 10/30/16 Rheumatology: Yes: Other (See HPI) Endocrine: Yes: Diabetes Mellitus - Past Surgical History Past Surgical History: Yes: Amputation, AV Fistula/Graft, - Alcohol/Substance Use Hx Alcohol Use: No - Smoking History Smoking history: Never smoked Have you smoked in the past 12 months: No Aproximately how many cigarettes per day: 0 - Social History ADL: Independent History of Recent Travel: No Home Medications - Allergies Allergies/Adverse Reactions: Allergies Allergy/AdvReac Type Severity Reaction Status Date / Time amoxicillin [Amoxicillin] Allergy Severe Itching Verified 01/02/17 10:26 hydrocodone bitartrate Allergy Severe Hives,ITCHI Verified 01/02/17 10:26 [From Vicodin] NG morphine Allergy Severe Itching Verified 01/02/17 10:26 neomycin [Neomycin] Allergy Severe Swelling Verified 01/02/17 10:26 oxycodone HCl [From Percocet] Allergy Severe Itching,HIV Verified 01/02/17 10:26 ES rofecoxib [From Vioxx] Allergy Severe Hives Verified 01/02/17 10:26 Sulfa (Sulfonamide Allergy Severe sclera Verified 01/02/17 10:26 Antibiotics) reddened,ITCHING tramadol Allergy Severe Vomiting Verified 01/02/17 10:26 tomato Allergy Verified 01/02/17 10:26 grapefruit [Grapefruit] AdvReac Severe CAN'T TAKE Verified 01/02/17 10:26 BECAUSE OF MEDICATIONS vancomycin AdvReac Mild red man Verified 01/02/17 10:26 syndrome Heparin Analogues AdvReac Unknown Verified 01/02/17 10:26 [Heparin Agents] flu shot Allergy Severe GETS FLU Uncoded 01/02/17 10:26 SYMPTOMS grape juice AdvReac Severe Uncoded 01/02/17 10:26 - Home Medications Home Medications: Ambulatory Orders Albuterol Sulfate Inhaler - [Ventolin HFA Inhaler -] 2 inh PO BID PRN 08/03/16 Atorvastatin Ca [Lipitor] 80 mg PO HS 08/03/16 Benzonatate 100 mg PO TID PRN 08/03/16 Bisacodyl [Laxative] 10 mg PO BID PRN 08/03/16 Brimonidine Tartrate/Timolol [Combigan 0.2%-0.5% Eye Drops] 2 drop OU DAILY 01/10 Carvedilol [Coreg -] 12.5 mg PO BID 08/03/16 Clonazepam [Klonopin -] 0.5 mg PO BID 08/03/16 Famotidine [Pepcid -] 20 mg PO DAILY 08/03/16 Furosemide [Lasix] 40 mg PO BID 08/03/16 Insulin Aspart [Novolog] 10 unit SQ AC 08/03/16 Lidocaine/Prilocaine Cream [Lidocaine-Prilocaine Cream -] 1 applic TP PRN PRN Mometasone/Formoterol [Dulera 100 Mcg/5 Mcg Inhaler] 2 inh IH BID PRN 08/03/16 Ondansetron [Zofran -] 4 mg PO DAILY PRN 08/03/16 Sennosides [Senna] 2 tab PO DAILY 08/03/16 Hydralazine HCl [Apresoline -] 50 mg PO BID tablet 08/06/16 Clopidogrel Bisulfate [Plavix -] 75 mg PO DAILY 08/26/16 Aspirin Coated [Ecotrin -] 325 mg PO DAILY 11/07/16 Cetirizine HCl [Zyrtec -] 5 mg PO DAILY 11/15/16 Bupropion HCl [Wellbutrin Xl -] 300 mg PO DAILY #30 tab.sr.24h 12/22/16 Topiramate [Topamax] 50 mg PO BID 01/02/17 Family Disease History - Family Disease History Family History: Denies Review of Systems - Review of Systems Constitutional: reports: Malaise Eyes: reports: No Symptoms HENT: reports: No Symptoms Cardiovascular: reports: No Symptoms Respiratory: reports: No Symptoms Gastrointestinal: reports: No Symptoms Genitourinary: reports: No Symptoms Musculoskeletal: reports: Muscle Weakness Neurological: reports: Other (see hpi) Psychiatric: reports: No Symptoms Physical Exam Vital Signs: Vital Signs Temperature 98.0 F 01/02/17 12:15 Pulse Rate 84 01/02/17 17:13 Respiratory Rate 18 01/02/17 17:13 Blood Pressure 158/91 01/02/17 17:13 O2 Sat by Pulse Oximetry (%) 99 01/02/17 17:13 Constitutional: Yes: Calm Eyes: Yes: Conjunctiva Clear HENT: Yes: Atraumatic Neck: Yes: Supple Cardiovascular: Yes: S1, S2 Respiratory: Yes: CTA Bilaterally Gastrointestinal: Yes: Normal Bowel Sounds, Soft, Abdomen, Obese Renal/: Yes: WNL Extremities: Yes: Other (rigth arm fistula with thrill and bruit) Edema: Yes Edema: LLE: Trace, RLE: Trace Neurological: Yes: Other (right arm weekness) Psychiatric: Yes: Oriented Labs: Laboratory Tests 01/02/17 01/02/17 12:00 12:00 WBC 7.4 Hgb 11.9 Plt Count 193 Sodium 137 Potassium 4.0 Chloride 101 Anion Gap 10 BUN 63 H D Imaging - Results Cat Scan: Report Reviewed Assessment/Plan Current Medications Generic Name Dose Route Start Last Admin Trade Name Freq PRN Reason Stop Dose Admin Albuterol Sulfate 2 puff 01/02/17 15:21 Ventolin Hfa Inhaler - IH Q12H PRN ASTHMA Atorvastatin Calcium 80 mg 01/02/17 22:00 Lipitor - PO HS MANDO Brimonidine Tartrate 2 drop 01/03/17 10:00 Alphagan 0.2% - OU DAILY MANDO Bupropion HCl 300 mg 01/03/17 10:00 Wellbutrin Xl - PO DAILY MANDO Carvedilol 12.5 mg 01/02/17 22:00 Coreg - PO BID MANDO Clonazepam 0.5 mg 01/02/17 22:00 Klonopin - PO BID MANDO Clopidogrel Bisulfate 75 mg 01/03/17 10:00 Plavix - PO DAILY MANDO Furosemide 40 mg 01/03/17 06:00 Lasix - PO BIDLASIX MANDO Hydralazine HCl 50 mg 01/02/17 22:00 Apresoline - PO BID [facility] Insulin Aspart 1 vial 01/02/17 16:30 Novolog Vial Sliding Scale - SQ ACHS MANDO Protocol Lidocaine/Prilocaine 1 applic 01/02/17 15:21 Emla - TP PRN PRN PAIN Ondansetron HCl 4 mg 01/02/17 15:21 Zofran - PO DAILY PRN NAUSEA Ranitidine HCl 150 mg 01/03/17 10:00 Zantac - PO DAILY [facility] Senna 2 tab 01/03/17 10:00 Senna - PO DAILY [facility] Timolol Maleate 2 drop 01/03/17 10:00 Timoptic 0.5% OU DAILY [facility] Topiramate 50 mg 01/02/17 22:00 Topamax - PO BID [facility] Impression 1. ESRD 2. CVA 3. DM 4. HLD 5. HTN 6. anemia 7. anxiety 8. infected right foot ulcer Plan - neurology evaluation for acute cva - will hold off hd until evaluated by neuro - vascular evaluation for stenosis in fistula - admit to stroke unit - no heparin on HD - monitor bp - will follow Dr Sharma
--- NOTE | 2017-01-02 18:47 | PN ---
Teaching Attending Note Name of Resident: Manuel Rushing ATTENDING PHYSICIAN STATEMENT I saw and evaluated the patient. I reviewed the resident's note and discussed the case with the resident. I agree with the resident's findings and plan as documented. SUBJECTIVE: CC: R upper ext heaviness and burning pain HPI: 51 y/o unfortunate lady , with multiple medical problems, including HTN, ESRD, On HD MWF, CVA , TIA, IDDM, R hemicranial migraine , R big toe Fx , and other medical problems who presented with RUE heaviness and pain. 1 week ago, she experienced theses symptoms and they recurred over the weekend. she reports mild weakness. has no dysphagia , or change in her vision ( legally blind) , has NO DEJESUS , has no neck rigidity , denies any other weakness. has no N/V , n o diarrhea . no bowel or bladder incontinence She was admitted last month for what it was thought to be TIA . OBJECTIVE: NAD , Awake alert and co-operative HEENT: MMM, no facial droop, no LAP in neck . CV: RRR, no MRG Lungs: CTAB , no wheezes or crackles ABd: obese , soft, NT, ND , NL BS EEXT: no erythema, L 4th, 5th toes amputation , a clean dressing on anterior R foot which she refused removing . DP 2+ DP . Neuro: slightly deformed small pupils , not reactive to light , does not follow commands to eval EOM, nl facial sensation . Tongue at mid line. can't evaluate uvula Strength : RUE: 4/5 at shoulder shrug, 4/5 at shoulder abduction, 4/5 biceps , 4/5 triceps , 4/5 wrist flexion and extension . nl hand manager gallery. LUE:5/5 at shoulder shrug , 5/5 shoulder abduction . 5/5 at biceps, 5/5 at triceps , 5/5 wrist flexion and extension .NL hand manager gallery RLE: 4/5 hip flexion, 4/5 knee flexion and extension, 2-3 /5 dorsiflexion and plantar flexion . LLE: 5/5 in hip flexion, 5/5 knee flexion and extension, 5/5 dorsiflexion and plantar flexion Reflexes: 2+ L biceps ,1+ R biceps . 1+ + knee jerk b/l . Normal sensation to light touch all over ASSESSMENT AND PLAN: 51 y/o unfortunate lady , with multiple medical problems, including HTN, ESRD, On HD MWF, CVA , TIA, IDDM, R hemicranial migraine , R big toe Fx , and other medical problems who presented with RUE heaviness and pain. She was found to have acute L upper frontal stroke 1- Acute L frontal stroke. has multiple risk factors for a stroke. US last admission with occluded R carotid and no significant stenosis in L carotid . Echo this time with no thromus. - check EKG, r/o A fib. - place on tele - ? TOBIAS - MRI brain and MRA brain and neck - will ask neuro about use of ASA and plavix in setting of petichial bleed seen on CT scan - will check with neuro about permissive HTN ( risk of worsening bleed with elevated bP, risk of increased watershed infarct with relative hypotension ) - will start hypercoagulable w/u : protein C/S/antithrombin. Prothrombin gene mutation/Jack2/PNH/V leiden mutation. Anticardiolipin/antiphospholipid ABs . 2- ESRD: with dysfunctional fistula. US dopler reviewed. - renal consult - vascular consult - No signs of fluid overload or hyperkalemia at this point 3- DM: - SSI - Levemir 7 units at HS 4- HTN: as above. willcheck with neuro 5- Ocular lesions seen on CT scan . MRI will further evaluate. - out pt follow up 6- DVT PX : SCDs in setting of concern of hemorrhagic conversion of stroke
--- NOTE | 2017-01-02 19:39 | CONSULT ---
Consult - text type - Consultation Consultation Note: NEUROLOGY CONSULTATION is greatly appreciated: This 51 yo RH woman with long h/o HTN, Chol and DM complicated by diabetic neuropathy, retinopathy and ESRD on HD via Right AV fistula. Known PVD s/p toe amputation and blindness due to diabetic peripheral neuropathy. Well-know to me for evaluation of TIA revealing chronic ischemic changes and known Right carotid occlusion. Know readmitted after 2 weeks of progressive right arm pain, swelling and tightness in the right arm over the AVF. Claims she came to the ER because she "couldn't get out patient ultrasound) and was having increased difficulty obtaining HD. Ultrasound of Right arm: focal venous stenosis at AVF CT of head (reviewed): diffuse white matter, microvascular changes, moderate atrophy. Calcification of the Basal ganglia bilaterally MRI of brain: Chronic ischemic changes including old left frontal CVA with possible extension Diffuse microvascular ischemic changes in centra semiovale, B/ L MRAngio: Confirms right Internal carotid occlusion at its origin. EXAM: Obese. No bruits. Cor reg. Right arm swollen, tender. Held in a guarded position. Right arm pain with elbow extension. NEURO: Awake, alert, crying. Depressed. Occ stuttering. Occ word-finding difficulty Marked decreased vision No facial asymmetry. Gag OK Mild right drift. Difficult to assess strength in the right arm due to pain around the fistula site. Mild right ankle dorsiflexion weakness. Areflexic in legs. Plantars silent. Reduced vibration to both ankles. Gait not tested. IMP: 1. Pending right AV Fistula failure. 2. Possible, mild Left frontal ischemia 3. Known Right carotid occlusion 4. Diabetic peripheral neuropathy. 5. Depression. SUGGEST: Consult Dr. Lennox Ch for AV Fistula Continue plavix and ASA Continue Wellbutrin XR 300 mg qd Thank you very much, Simone Faye MD
--- NOTE | 2017-01-02 20:55 | HP ---
CHIEF COMPLAINT: right sided weakness and burning PCP: Dr. Gunter HISTORY OF PRESENT ILLNESS: 51 yo F with PMH of CVA, TIA, HTN, HLD, DM, left retinal detachment, left eye blindness, ESRD on HD (MWF), wheelchair bound, presented to the ED with 2 weeks of right arm heaviness and right arm numbness/ burning on her right arm around the fistula site. She said she was admitted 2 weeks ago for the same thing, was seen by neuro but was discharged once imagine came back negative. Patient denies DEJESUS, new changes in vision, chest pain, sob, n , v, dizziness, palpitations, LOC, tremors. ER course was notable for: (1) Head CT: acute infarction central in the left superior frontal gyrus at the vertex, infarction left ROBIN/MCA. Local sulci effacement and foci petechial hemorrhage within infarct. (2) MRI/MRA brain: Moderate to large acute/subacute infarct in the left frontal lobe. Other acute/subacute infarcts are present in the left frontal lobe, anterior cerebral artery territory, watershed region as well as in the left parietal lobe. No flow in the distal right internal carotid artery. (3) Ultrasound of Right arm (last ED visit): focal venous stenosis at AVF Recent Travel: n/a PAST MEDICAL HISTORY: HTN, TIA, atherosclerosis, anemia, asthma, IDDM, Diabetic retinopathy, left eye retinal detachment, with total blindness, ESRD ( HD mwf) PAST SURGICAL HISTORY: n/a Social History: Smoking: denies Alcohol: denies Drugs: denies Family History: Allergies amoxicillin [Amoxicillin] Allergy (Severe, Verified 01/02/17 10:26) Itching hydrocodone bitartrate [From Vicodin] Allergy (Severe, Verified 01/02/17 10:26) Hives,ITCHING morphine Allergy (Severe, Verified 01/02/17 10:26) Itching neomycin [Neomycin] Allergy (Severe, Verified 01/02/17 10:26) Swelling oxycodone HCl [From Percocet] Allergy (Severe, Verified 01/02/17 10:26) Itching,HIVES rofecoxib [From Vioxx] Allergy (Severe, Verified 01/02/17 10:26) Hives Sulfa (Sulfonamide Antibiotics) Allergy (Severe, Verified 01/02/17 10:26) sclera reddened,ITCHING tramadol Allergy (Severe, Verified 01/02/17 10:26) Vomiting tomato Allergy (Verified 01/02/17 10:26) grapefruit [Grapefruit] Adverse Reaction (Severe, Verified 01/02/17 10:26) CAN'T TAKE BECAUSE OF MEDICATIONS vancomycin Adverse Reaction (Mild, Verified 01/02/17 10:26) red man syndrome Heparin Analogues [Heparin Agents] Adverse Reaction (Unknown, Verified 01/02/17 10:26) OF 09/14/14, PT IS ABLE TO TAKE WITH MONITORING OF SYMPTOMS flu shot Allergy (Severe, Uncoded 01/02/17 10:26) GETS FLU SYMPTOMS grape juice Adverse Reaction (Severe, Uncoded 01/02/17 10:26) HOME MEDICATIONS: Home Medications Medication Instructions Recorded Albuterol Sulfate Inhaler - 2 inh PO BID PRN 08/03/16 [Ventolin HFA Inhaler -] Atorvastatin Ca [Lipitor] 80 mg PO HS 08/03/16 Benzonatate 100 mg PO TID PRN 08/03/16 Bisacodyl [Laxative] 10 mg PO BID PRN 08/03/16 Brimonidine Tartrate/Timolol 2 drop OU DAILY 08/03/16 [Combigan 0.2%-0.5% Eye Drops] Carvedilol [Coreg -] 12.5 mg PO BID 08/03/16 Clonazepam [Klonopin -] 0.5 mg PO BID 08/03/16 Famotidine [Pepcid -] 20 mg PO DAILY 08/03/16 Furosemide [Lasix] 40 mg PO BID 08/03/16 Insulin Aspart [Novolog] 10 unit SQ AC 08/03/16 Lidocaine/Prilocaine Cream 1 applic TP PRN PRN 08/03/16 [Lidocaine-Prilocaine Cream -] Mometasone/Formoterol [Dulera 100 2 inh IH BID PRN 08/03/16 Mcg/5 Mcg Inhaler] Ondansetron [Zofran -] 4 mg PO DAILY PRN 08/03/16 Sennosides [Senna] 2 tab PO DAILY 08/03/16 Hydralazine HCl [Apresoline -] 50 mg PO BID tablet 08/06/16 Clopidogrel Bisulfate [Plavix -] 75 mg PO DAILY 08/26/16 Aspirin Coated [Ecotrin -] 325 mg PO DAILY 11/07/16 Cetirizine HCl [Zyrtec -] 5 mg PO DAILY 11/15/16 Bupropion HCl [Wellbutrin Xl -] 300 mg PO DAILY #30 tab.sr.24h 12/22/16 Topiramate [Topamax] 50 mg PO BID 01/02/17 REVIEW OF SYSTEMS CONSTITUTIONAL: Absent: fever, chills, diaphoresis, generalized weakness, malaise, loss of appetite, weight change HEENT: Absent: rhinorrhea, nasal congestion, throat pain, throat swelling, difficulty swallowing, mouth swelling, ear pain, eye pain, visual changes CARDIOVASCULAR: Absent: chest pain, syncope, palpitations, irregular heart rate, lightheadedness , peripheral edema RESPIRATORY: Absent: cough, shortness of breath, dyspnea with exertion, orthopnea, wheezing, stridor, hemoptysis GASTROINTESTINAL: Absent: abdominal pain, abdominal distension, nausea, vomiting, diarrhea, constipation, melena, hematochezia GENITOURINARY: Absent: dysuria, frequency, urgency, hesitancy, hematuria, flank pain, genital pain MUSCULOSKELETAL: Absent: myalgia, arthralgia, joint swelling, back pain, neck pain SKIN: Absent: rash, itching, pallor HEMATOLOGIC/IMMUNOLOGIC: Absent: easy bleeding, easy bruising, lymphadenopathy, frequent infections ENDOCRINE: Absent: unexplained weight gain, unexplained weight loss, heat intolerance, cold intolerance NEUROLOGIC: right arm twitching, right arm weakness, Absent: headache, dizziness, unsteady gait, seizure, mental status changes, bladder or bowel incontinence PSYCHIATRIC: Absent: anxiety, depression, suicidal or homicidal ideation, hallucinations. PHYSICAL EXAMINATION Vital Signs - 24 hr 01/02/17 01/02/17 17:13 18:55 Pulse Rate 84 Pulse Rate [ 84 Right] Respiratory 18 16 Rate Blood Pressure 158/91 Blood Pressure 188/109 [Right Arm] O2 Sat by Pulse 99 98 Oximetry (%) GENERAL: Awake, alert, and fully oriented, in no acute distress. HEAD: Normal with no signs of trauma. EYES: Left eye: 1mm minimally reactive, Right eye: 2mm minimally reactive. Not able to follow fingers with eyes. NOSE, THROAT: oropharynx clear without exudates. Moist mucous membranes. NECK: Normal range of motion, supple without lymphadenopathy, JVD, or masses. LUNGS: Breath sounds equal, clear to auscultation bilaterally. No wheezes, and no crackles. No accessory muscle use. HEART: Regular rate and rhythm, normal S1 and S2 without murmur, rub or gallop. ABDOMEN: obese, soft, nontender, not distended, normoactive bowel sounds, no guarding, no rebound, no masses. No hepatomegaly or splenomegaly. MUSCULOSKELETAL: Normal range of motion at all joints. No bony deformities or tenderness. No CVA tenderness. UPPER EXTREMITIES: Tenderness to right arm at site of AVF. bruit over AVF. No erythema/warmth. 4/5 weakness on RUE and RLE including shoulder shrug, should abduction, bicepts, tricepts, and wrist flexion and extension. 3/5 dorsiflexion and plantar flextion. 5/5 LUE, LLE. Reflexes 2+ throughout except 1+ R knee jerk b/l Ext: 3 digits on left foot with 4th and 5th digit amputated. 4 digits on right foot. NEUROLOGICAL: -Left eye blindness. -No facial asymmetry. -Right drift. ASSESSMENT/PLAN: #Acute CVA -Moderate to large acute/subacute infarct in the left frontal lobe. Other acute/ subacute infarcts are present in the left frontal lobe, anterior cerebral artery territory, watershed region as well as in the left parietal lobe. - FU EKG to r/o A-fib -Tele -MRI brain and MRA brain and neck reviewd -Neuro checks -Echo with no thrombus - US (last admission) with right carotid occlusion. -Continue plavix and ASA as per Neuro - Continue Wellbutrin XR 300 mg qd -possible TOBIAS - Will order hypercoag workup in the morning : protein C,S, antithrombin, Prothrombin gene mutation, Jack2, PNH,V leiden mutation. Anticardiolipin/ antiphospholipid ABs -continue home BP meds as per Neuro. -continue Plavix, ASA #ESRD w/ dysfunctional fistula -US doppler reviewed. -focal venous stenosis at AVF -Renal on board -vascular on board #DM -ISS -Levemir 7 Units HS #HTN -continue home meds as per neuro -Hydralazine and Carvedilol #DVT: No DVT PPX #FEN: -Not on IV fluids -WNL -Sodium/Diabetic Diet Visit type - Emergency Visit Emergency Visit: Yes ED Registration Date: 01/02/17 Care time: The patient presented to the Emergency Department on the above date and was hospitalized for further evaluation of their emergent condition. - New Patient This patient is new to me today: Yes Date on this admission: 01/02/17 - Critical Care Critical Care patient: No
[2017-01-02] MEDS ORDERED: CARVEDILOL 12.5 MG TABLET (FP) PO SCH (22:00)
[2017-01-02] MEDS ORDERED: hydrALAZINE HCL 50 MG TABLET (FP) PO SCH (22:00)
[2017-01-02] MEDS ORDERED: PATIENT'S OWN MEDICATION (NON-FORMULARY) (Topiramate [Topamax] 50 MG) PO SCH (22:00)
[2017-01-02] MEDS: INSULIN SLIDING SCALE (NOVOLOG) 1 VIAL SQ SCH (22:04)
[2017-01-02] MEDS: CARVEDILOL 12.5 MG TABLET (FP) PO SCH (22:05)
[2017-01-02] MEDS: hydrALAZINE HCL 50 MG TABLET (FP) PO SCH (22:05)
[2017-01-02] MEDS: INSULIN DETEMIR 100 UNITS/ML MDV SQ SCH (22:06)
[2017-01-02] MEDS: ATORVASTATIN CA 80 MG TABLET (FP) PO SCH (22:06)
[2017-01-02] MEDS: clonazePAM 0.5 MG TABLET PO SCH (22:06)
[2017-01-02] MEDS: TOPIRAMATE 25 MG TABLET (FP) PO SCH (22:48)
[2017-01-03] MEDS: FUROSEMIDE 40 MG TABLET (FP) PO SCH ×2 (06:52→13:20)
[2017-01-03] MEDS: INSULIN SLIDING SCALE (NOVOLOG) 1 VIAL SQ SCH ×4 (06:52→21:51)
[2017-01-03 07:47] LABS: BASOPHIL 0.7 % (0-2.0); EOSINOPHIL 4.2 % (0-4.5); MCH 32.3 pg (25.7-33.7); MCHC 32.1 g/dl (32.0-36.0); MEAN CELL VOLUME 100.5 fl (80-96); NEUTROPHILS 64.3 % (42.8-82.8); PLATELET COUNT 178 K/MM3 (134-434); RDW 14.5 % (11.6-15.6); WHITE BLOOD COUNT 6.8 K/mm3 (4.0-10.0)
[2017-01-03 08:27] LABS: ALBUMIN 3.4 g/dl (3.4-5.0); ALK PHOS 51 U/L (45-117); ANION GAP 16 (8-16); BILIRUBIN,TOTAL 0.4 mg/dL (0.2-1.0); CALCIUM 9.8 mg/dL (8.5-10.1); CO2 22 mmol/L (21-32); GLUCOSE,RANDOM 107 mg/dL (74-106); MAGNESIUM 2.5 mg/dL (1.8-2.4); PHOSPHOROUS 4.8 mg/dL (2.5-4.9); SGOT/AST 15 U/L (15-37); SGPT/ALT 27 U/L (12-78); THYROID STIMULATING HORMONE 1.06 uIU/ml (0.358-3.74); TOT PROT 6.8 g/dl (6.4-8.2)
[2017-01-03 08:33] LABS: ANISOCYTOSIS 1+; MACROCYTOSIS 1+; PLATELET ESTIMATE ADEQUATE (NORMAL)
--- NOTE | 2017-01-03 08:55 | PN ---
Progress Note, Physician Chief Complaint: 51F with ESRD on HD, DM, HTN, history of CVAs with no identifiable source on outpatient work up now presents for right arm heaviness. CT and MRI reveal acute L frontal CVA. Denies chest pain, SOB, no edema. Outpatient work up has included TOBIAS, extended holters and carotid US which have shown occlusion of the distal BHAVIN. Of note, she has been having difficulty with her right AV fistula and was to have US, possible fistula malfunction. History of Present Illness: Prior CVAs/TIAs Known occluded BHAVIN ESRD DM - Current Medication List Current Medications: Active Medications Albuterol Sulfate (Ventolin Hfa Inhaler -) 2 puff IH Q12H PRN PRN Reason: ASTHMA Aspirin (Ecotrin -) 81 mg PO DAILY [facility] Atorvastatin Calcium (Lipitor -) 80 mg PO HS [facility] Last Admin: 01/02/17 22:06 Dose: 80 mg Brimonidine Tartrate (Alphagan 0.2% -) 2 drop OU DAILY [facility] Bupropion HCl (Wellbutrin Xl -) 300 mg PO DAILY [facility] Carvedilol (Coreg -) 12.5 mg PO BID [facility] Last Admin: 01/02/17 22:05 Dose: 12.5 mg Clonazepam (Klonopin -) 0.5 mg PO BID [facility] Last Admin: 01/02/17 22:06 Dose: 0.5 mg Clopidogrel Bisulfate (Plavix -) 75 mg PO DAILY [facility] Furosemide (Lasix -) 40 mg PO BIDLASIX [facility] Last Admin: 01/03/17 06:52 Dose: Not Given Hydralazine HCl (Apresoline -) 50 mg PO BID [facility] Last Admin: 01/02/17 22:05 Dose: 50 mg Insulin Aspart (Novolog Vial Sliding Scale -) 1 vial SQ [facility] PRN Reason: Protocol Last Admin: 01/03/17 06:52 Dose: Not Given Insulin Detemir (Levemir Vial) 7 units SQ HS [facility] Last Admin: 01/02/17 22:06 Dose: Not Given Lidocaine/Prilocaine (Emla -) 1 applic TP PRN PRN PRN Reason: PAIN Ondansetron HCl (Zofran -) 4 mg PO DAILY PRN PRN Reason: NAUSEA Pantoprazole Sodium (Protonix -) 40 mg PO DAILY [facility] Ranitidine HCl (Zantac -) 150 mg PO DAILY MANDO Senna (Senna -) 2 tab PO DAILY [facility] Timolol Maleate (Timoptic 0.5%) 2 drop OU DAILY [facility] Topiramate (Topamax -) 50 mg PO BID [facility] Last Admin: 01/02/17 22:48 Dose: 50 mg - Objective Vital Signs: Vital Signs Temperature 98.6 F 01/03/17 06:00 Pulse Rate 83 01/03/17 06:00 Respiratory Rate 16 01/03/17 06:00 Blood Pressure 156/83 01/03/17 06:00 O2 Sat by Pulse Oximetry (%) 100 01/02/17 21:00 Constitutional: Yes: No Distress Eyes: Yes: Conjunctiva Clear Cardiovascular: Yes: Regular Rate and Rhythm Respiratory: Yes: CTA Bilaterally Gastrointestinal: Yes: Soft, Abdomen, Obese Edema: No Neurological: Yes: Alert Labs: CBC, BMP 01/03/17 07:35 01/03/17 07:35 INR, PTT INR 1.04 (0.82-1.09) 01/02/17 12:00 Laboratory Tests 01/03/17 01/03/17 07:35 07:35 WBC 6.8 Hgb 11.7 Plt Count 178 Potassium 4.4 Creatinine Pending Total Bilirubin 0.4 AST 15 ALT 27 D Alkaline Phosphatase 51 Total Protein 6.8 Albumin 3.4 TSH 1.06 D - ....Imaging Cat Scan: Report Reviewed MRI: Report Reviewed EKG: Other (TELE: Normal sinus rhythm with no evidence of AF) Assessment/Plan Acute Left frontal CVA Prior CVAs, bilateral Known occluded BHAVIN ESRD DM REC: Continued telemetry. Appreciate Neuro input. Will obtain Heme eval for hypercoag state. To consider starting anticoagulation, will d/w Neuro Will repeat TOBIAS this admission.
[2017-01-03 08:58] LABS: INR 1.05 (0.82-1.09); PROTHROMBIN TIME (PATIENT) 11.5 SEC (9.98-11.88)
[2017-01-03 09:03] LABS: CREATININE 13.9 mg/dL (0.55-1.02)
[2017-01-03] MEDS: CLOPIDOGREL BISULFATE 75 MG TABLET (FP) PO SCH (09:54)
[2017-01-03] MEDS: PANTOPRAZOLE 40 MG TABLET (FP) PO SCH (09:54)
[2017-01-03] MEDS: RANITIDINE HCL 150 MG TABLET (FP) PO SCH (09:54)
[2017-01-03] MEDS: CARVEDILOL 12.5 MG TABLET (FP) PO SCH ×2 (09:54→21:49)
[2017-01-03] MEDS: clonazePAM 0.5 MG TABLET PO SCH ×2 (09:55→21:49)
[2017-01-03] MEDS: hydrALAZINE HCL 50 MG TABLET (FP) PO SCH ×2 (09:55→21:49)
[2017-01-03] MEDS: ASPIRIN COATED 81 MG TABLET.EC PO SCH (09:55)
[2017-01-03] MEDS: SENNOSIDES 8.6MG TABLET (FP) PO SCH (09:55)
[2017-01-03] MEDS: TOPIRAMATE 25 MG TABLET (FP) PO SCH ×2 (09:56→21:49)
[2017-01-03] MEDS ORDERED: PATIENT'S OWN MEDICATION (NON-FORMULARY) (Famotidine [Pepcid -] 20 MG) PO SCH (10:00)
[2017-01-03] MEDS ORDERED: ASPIRIN COATED 81 MG TABLET.EC PO SCH (10:00)
[2017-01-03] MEDS ORDERED: PATIENT'S OWN MEDICATION (NON-FORMULARY) (Brimonidine Tartrate/Timolol [Combigan 0.2%-0.5% OU SCH (10:00)
[2017-01-03] MEDS: TIMOLOL 0.5% OPHTHALMIC SOL 5 ML BOTTLE OU SCH (11:26)
[2017-01-03] MEDS: BRIMONIDINE TARTRATE 0.2% OPHTHALMIC 5 ML BOTTLE OU SCH (11:26)
[2017-01-03] MEDS ORDERED: INSULIN (NOVOLOG) ASPART 100 UNITS/ML 10ML VIAL ONE (11:36)
[2017-01-03] MEDS ORDERED: ACETAMINOPHEN 325 MG TABLET (FP) ONE (11:37)
[2017-01-03] MEDS ORDERED: predniSONE 20 MG TABLET (UD) PO ONE (12:21)
[2017-01-03] MEDS ORDERED: FLUTICASONE/SALMETEROL 100 MCG/50 MCG DISKUS IH SCH (12:30)
--- NOTE | 2017-01-03 15:03 | PN ---
Progress Note, Physician History of Present Illness: Pt seen and examined at bedside. She still has weakness in her right arm. - Current Medication List Current Medications: Active Medications Albuterol Sulfate (Ventolin Hfa Inhaler -) 2 puff IH Q12H PRN PRN Reason: ASTHMA Aspirin (Ecotrin -) 81 mg PO DAILY [facility] Last Admin: 01/03/17 09:55 Dose: 81 mg Atorvastatin Calcium (Lipitor -) 80 mg PO HS [facility] Last Admin: 01/02/17 22:06 Dose: 80 mg Brimonidine Tartrate (Alphagan 0.2% -) 2 drop OU DAILY [facility] Last Admin: 01/03/17 11:26 Dose: Not Given Bupropion HCl (Wellbutrin Xl -) 300 mg PO DAILY [facility] Last Admin: 01/03/17 09:55 Dose: 300 mg Carvedilol (Coreg -) 12.5 mg PO BID [facility] Last Admin: 01/03/17 09:54 Dose: 12.5 mg Clonazepam (Klonopin -) 0.5 mg PO BID [facility] Last Admin: 01/03/17 09:55 Dose: 0.5 mg Clopidogrel Bisulfate (Plavix -) 75 mg PO DAILY [facility] Last Admin: 01/03/17 09:54 Dose: 75 mg Furosemide (Lasix -) 40 mg PO BIDLASIX [facility] Last Admin: 01/03/17 13:20 Dose: Not Given Hydralazine HCl (Apresoline -) 50 mg PO BID [facility] Last Admin: 01/03/17 09:55 Dose: 50 mg Insulin Aspart (Novolog Vial Sliding Scale -) 1 vial SQ [facility] PRN Reason: Protocol Last Admin: 01/03/17 11:49 Dose: Not Given Insulin Detemir (Levemir Vial) [address] [facility] Last Admin: 01/02/17 22:06 Dose: Not Given Lidocaine/Prilocaine (Emla -) 1 applic TP PRN PRN PRN Reason: PAIN Ondansetron HCl (Zofran -) 4 mg PO DAILY PRN PRN Reason: NAUSEA Pantoprazole Sodium (Protonix -) 40 mg PO DAILY [facility] Last Admin: 01/03/17 09:54 Dose: 40 mg Ranitidine HCl (Zantac -) 150 mg PO DAILY [facility] Last Admin: 01/03/17 09:54 Dose: 150 mg Senna (Senna -) 2 tab PO DAILY [facility] Last Admin: 01/03/17 09:55 Dose: 2 tab Timolol Maleate (Timoptic 0.5%) 2 drop OU DAILY [facility] Last Admin: 01/03/17 11:26 Dose: Not Given Topiramate (Topamax -) 50 mg PO BID [facility] Last Admin: 01/03/17 09:56 Dose: 50 mg - Objective Vital Signs: Vital Signs Temperature 98.7 F 01/03/17 09:00 Pulse Rate 89 01/03/17 09:00 Respiratory Rate 16 01/03/17 09:00 Blood Pressure 146/93 01/03/17 09:00 O2 Sat by Pulse Oximetry (%) 100 01/03/17 09:00 Constitutional: Yes: Calm Eyes: Yes: Conjunctiva Clear HENT: Yes: Atraumatic Cardiovascular: Yes: S1, S2 Respiratory: Yes: CTA Bilaterally Gastrointestinal: Yes: Soft, Abdomen, Obese Genitourinary: Yes: WNL Musculoskeletal: Yes: Muscle Weakness Edema: Yes Edema: LLE: Trace, RLE: Trace Neurological: Yes: Oriented Labs: INR, PTT INR 1.05 (0.82-1.09) 01/03/17 07:35 Problem List - Problems (1) CVA (cerebral vascular accident) Code(s): I63.9 - CEREBRAL INFARCTION, UNSPECIFIED (2) Diabetes Code(s): E11.9 - TYPE 2 DIABETES MELLITUS WITHOUT COMPLICATIONS Qualifiers: Diabetes mellitus type: type 2 Diabetes mellitus complication status: with kidney complications Diabetes mellitus complication detail: with chronic kidney disease Diabetes mellitus intermediate insulin use: with intermediate use Chronic kidney disease stage: on chronic dialysis Qualified Code(s): E11.22 - Type 2 diabetes mellitus with diabetic chronic kidney disease ; E11.22 - Type 2 diabetes mellitus with diabetic chronic kidney disease; E11.22 - Type 2 diabetes mellitus with diabetic chronic kidney disease; E11.22 - Type 2 diabetes mellitus with diabetic chronic kidney disease; E11.22 - Type 2 diabetes mellitus with diabetic chronic kidney disease; N18.1 - Chronic kidney disease, stage 1; N18.1 - Chronic kidney disease, stage 1; Z79.4 - custodial (current) use of insulin; Z79.4 - custodial (current) use of insulin; Z79.4 - [place] (current) use of insulin; Z79.4 - custodial (current) use of insulin (3) ESRD (end stage renal disease) Code(s): N18.6 - END STAGE RENAL DISEASE (4) Hypertension Code(s): I10 - ESSENTIAL (PRIMARY) HYPERTENSION Qualifiers: Hypertension type: essential hypertension Qualified Code(s): I10 - Essential (primary) hypertension; I10 - Essential (primary) hypertension; I10 - Essential (primary) hypertension Assessment/Plan Current Medications Generic Name Dose Route Start Last Admin Trade Name Freq PRN Reason Stop Dose Admin Albuterol Sulfate 2 puff 01/02/17 15:21 Ventolin Hfa Inhaler - IH Q12H PRN ASTHMA Aspirin 81 mg 01/03/17 10:00 01/03/17 09:55 Ecotrin - PO 81 mg DAILY [facility] Administration Atorvastatin Calcium 80 mg 01/02/17 22:00 01/02/17 22:06 Lipitor - PO 80 mg HS [facility] Administration Brimonidine Tartrate 2 drop 01/03/17 10:00 01/03/17 11:26 Alphagan 0.2% - OU Not Given DAILY [facility] Bupropion HCl 300 mg 01/03/17 10:00 01/03/17 09:55 Wellbutrin Xl - PO 300 mg DAILY [facility] Administration Carvedilol 12.5 mg 01/02/17 22:00 01/03/17 09:54 Coreg - PO 12.5 mg BID [facility] Administration Clonazepam 0.5 mg 01/02/17 22:00 01/03/17 09:55 Klonopin - PO 0.5 mg BID [facility] Administration Clopidogrel Bisulfate 75 mg 01/03/17 10:00 01/03/17 09:54 Plavix - PO 75 mg DAILY [facility] Administration Furosemide 40 mg 01/03/17 06:00 01/03/17 13:20 Lasix - PO Not Given BIDLASIX [facility] Hydralazine HCl 50 mg 01/02/17 22:00 01/03/17 09:55 Apresoline - PO 50 mg BID [facility] Administration Insulin Aspart 1 vial 01/02/17 16:30 01/03/17 11:49 Novolog Vial Sliding Scale - SQ Not Given ACHS [facility] Protocol Insulin Detemir 7 units 01/02/17 22:00 01/02/17 22:06 Levemir Vial SQ Not Given HS [facility] Lidocaine/Prilocaine 1 applic 01/02/17 15:21 Emla - TP PRN PRN PAIN Ondansetron HCl 4 mg 01/02/17 15:21 Zofran - PO DAILY PRN NAUSEA Pantoprazole Sodium 40 mg 01/03/17 10:00 01/03/17 09:54 Protonix - PO 40 mg DAILY [facility] Administration Ranitidine HCl 150 mg 01/03/17 10:00 01/03/17 09:54 Zantac - PO 150 mg DAILY [facility] Administration Senna 2 tab 01/03/17 10:00 01/03/17 09:55 Senna - PO 2 tab DAILY [facility] Administration Timolol Maleate 2 drop 01/03/17 10:00 01/03/17 11:26 Timoptic 0.5% OU Not Given DAILY [facility] Topiramate 50 mg 01/02/17 22:00 01/03/17 09:56 Topamax - PO 50 mg BID [facility] Administration Impression 1. ESRD 2. CVA 3. DM 4. HLD 5. HTN 6. anemia 7. anxiety 8. infected right foot ulcer Plan - pt for HD today - will dialyze at bedside - spoke to vascular surgery who recommended to use her access - neurology follow up - repeat ct done today - will not use heparin on HD - will follow Dr Sharma
--- NOTE | 2017-01-03 17:59 | PN ---
Physical Exam: SUBJECTIVE: Patient seen and examined. No acute events overnight. Patient offers no new complaints. Says she feels the same as yesterday. OBJECTIVE: Vital Signs Period Temp Pulse Resp BP Sys/[place] Pulse Ox Last 24 Hr 97.9 F-98.4 F 80-87 18-18 155-178/88-105 GENERAL: Awake, alert, and fully oriented, in no acute distress. HEAD: Normal with no signs of trauma. EYES: Left eye: 1mm minimally reactive, Right eye: 2mm minimally reactive. Not able to follow fingers with eyes. NOSE, THROAT: oropharynx clear without exudates. Moist mucous membranes. NECK: Normal range of motion, supple without lymphadenopathy, JVD, or masses. LUNGS: Breath sounds equal, clear to auscultation bilaterally. No wheezes, and no crackles. No accessory muscle use. HEART: Regular rate and rhythm, normal S1 and S2 without murmur, rub or gallop. ABDOMEN: obese, soft, nontender, not distended, normoactive bowel sounds, no guarding, no rebound, no masses. No hepatomegaly or splenomegaly. MUSCULOSKELETAL: Normal range of motion at all joints. No bony deformities or tenderness. No CVA tenderness. UPPER EXTREMITIES: Tenderness to right arm at site of AVF. bruit over AVF. No erythema/warmth. 4/5 weakness on RUE and RLE including shoulder shrug, should abduction, bicepts, tricepts, and wrist flexion and extension. 3/5 dorsiflexion and plantar flextion. 5/5 LUE, LLE. Reflexes 2+ throughout except 1+ R knee jerk b/l Ext: 3 digits on left foot with 4th and 5th digit amputated. 4 digits on right foot. NEUROLOGICAL: -Left eye blindness. -No facial asymmetry. Active Medications Generic Name Dose Route Start Last Admin Trade Name Freq PRN Reason Stop Dose Admin Albuterol Sulfate 2 puff 01/02/17 15:21 Ventolin Hfa Inhaler - IH Q12H PRN ASTHMA Aspirin 81 mg 01/03/17 10:00 01/03/17 09:55 Ecotrin - PO 81 mg DAILY [facility] Administration Atorvastatin Calcium 80 mg 01/02/17 22:00 01/02/17 22:06 Lipitor - PO 80 mg HS [facility] Administration Brimonidine Tartrate 2 drop 01/03/17 10:00 01/03/17 11:26 Alphagan 0.2% - OU Not Given DAILY [facility] Bupropion HCl 300 mg 01/03/17 10:00 01/03/17 09:55 Wellbutrin Xl - PO 300 mg DAILY [facility] Administration Carvedilol 12.5 mg 01/02/17 22:00 01/03/17 09:54 Coreg - PO 12.5 mg BID [facility] Administration Clonazepam 0.5 mg 01/02/17 22:00 01/03/17 09:55 Klonopin - PO 0.5 mg BID [facility] Administration Clopidogrel Bisulfate 75 mg 01/03/17 10:00 01/03/17 09:54 Plavix - PO 75 mg DAILY [facility] Administration Furosemide 40 mg 01/03/17 06:00 01/03/17 13:20 Lasix - PO Not Given BIDLASIX [facility] Hydralazine HCl 50 mg 01/02/17 22:00 01/03/17 09:55 Apresoline - PO 50 mg BID [facility] Administration Insulin Aspart 1 vial 01/02/17 16:30 01/03/17 17:31 Novolog Vial Sliding Scale - SQ Not Given ACHS [facility] Protocol Insulin Detemir 7 units 01/02/17 22:00 01/02/17 22:06 Levemir Vial SQ Not Given HS [facility] Lidocaine/Prilocaine 1 applic 01/02/17 15:21 Emla - TP PRN PRN PAIN Ondansetron HCl 4 mg 01/02/17 15:21 Zofran - PO DAILY PRN NAUSEA Pantoprazole Sodium 40 mg 01/03/17 10:00 01/03/17 09:54 Protonix - PO 40 mg DAILY [facility] Administration Ranitidine HCl 150 mg 01/03/17 10:00 01/03/17 09:54 Zantac - PO 150 mg DAILY [facility] Administration Senna 2 tab 01/03/17 10:00 01/03/17 09:55 Senna - PO 2 tab DAILY [facility] Administration Timolol Maleate 2 drop 01/03/17 10:00 01/03/17 11:26 Timoptic 0.5% OU Not Given DAILY [facility] Topiramate 50 mg 01/02/17 22:00 01/03/17 09:56 Topamax - PO 50 mg BID [facility] Administration ASSESSMENT/PLAN: #Acute CVA -Moderate to large acute/subacute infarct in the left frontal lobe. Other acute/ subacute infarcts are present in the left frontal lobe, anterior cerebral artery territory, watershed region as well as in the left parietal lobe. -Repeat Head CT reviewed: no change -Neuro checks -tele with no a-fib tomorrow -Echo with no thrombus - US (last admission) with right carotid occlusion. -Continue Wellbutrin XR 300 mg qd -possible TOBIAS -Will need hypercoaguable workup outpatient -continue home BP meds as per Neuro. -continue Plavix, ASA -FU nuero reccs -TOBIAS ordered as per Dr. Syed #ESRD w/ dysfunctional fistula -US doppler reviewed. -focal venous stenosis at AVF -Dialysis today -Will use access for dialysis as per vascular reccs #DM -ISS -Levemir 7 Units HS #HTN -continue home meds as per neuro -Hydralazine and Carvedilol -increased Hydralazine to TID #DVT: No DVT PPX #FEN: -Not on IV fluids -WNL -Sodium/Diabetic Diet Visit type - Emergency Visit Emergency Visit: Yes ED Registration Date: 01/03/17 Care time: The patient presented to the Emergency Department on the above date and was hospitalized for further evaluation of their emergent condition. - New Patient This patient is new to me today: No - Critical Care Critical Care patient: No
--- NOTE | 2017-01-03 18:08 | PN ---
Teaching Attending Note Name of Resident: Manuel Rushing ATTENDING PHYSICIAN STATEMENT I saw and evaluated the patient. I reviewed the resident's note and discussed the case with the resident. I agree with the resident's findings and plan as documented. SUBJECTIVE: No fever or chills. has no abd pain . no DEJESUS , no visual changes . OBJECTIVE: NAD HEENT: MMM, no facial droop CV: RRR, no MRG Lungs: CTAB , no wheezes or crackles ABd: obese , soft, NT, ND , NL BS EXT: no erythema, L 4th, 5th toes amputation , a clean dressing on anterior R foot which she refused removing . DP 2+ DP . tenderness but no erythema over R upper arm fistula Neuro: slightly deformed small pupils , not reactive to light. Tongue at mid line. can't evaluate uvula Strength : RUE: 4/5 at shoulder shrug, 4/5 at shoulder abduction, 5/5 biceps , 5/5 triceps , 4/5 wrist flexion and extension . 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 LUE:5/5 at shoulder shrug , 5/5 shoulder abduction . 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 LLE: 5/5 in hip flexion, 5/5 knee flexion and extension, 5/5 dorsiflexion and plantar flexion Reflexes: 2+ L biceps ,1+ R biceps . 1 + knee jerk b/l . Normal sensation to light touch all over ASSESSMENT AND PLAN: 51 y/o unfortunate lady , with multiple medical problems, including HTN, ESRD, On HD MWF, CVA , TIA, IDDM, R hemicranial migraine , R big toe Fx , and other medical problems who presented with RUE heaviness and pain. She was found to have acute L upper frontal stroke 1- Acute L frontal stroke.MRI reviewed. with peticheal hemorrhage - repeat CT scan today, no change - tele with no afib today - Appreciate Dr. Syed input. for TOBIAS - cont ASA and plavix. - need better blood pressure control. increase HZN to TID - Hypercoagulable w/u was not approved by our pathologist. ( protein C/S/ antithrombin. Prothrombin gene mutation/Jack2/PNH/V leiden mutation. Anticardiolipin/antiphospholipid ABs ). to be done as out pt 2- ESRD: with dysfunctional fistula. - HD today -Appreciate Dr. Jacome help 3- DM: - SSI - Levemir 7 units at HS 4- HTN: as above.increase hZn and cont coreg 5- Ocular lesions seen on CT scan . - out pt follow up with ophth 6- DVT PX: SCDs in setting of concern of hemorrhagic conversion of stroke.
--- NOTE | 2017-01-03 19:38 | PN ---
Progress Note (short form) - Note Progress Note: Vascular Surgery Pt seen and examined. Called to evaluate left avg. Pt on HD machine right now. Had good flow rate at 400 for 1 hour, and then had increased venous pressures. Pt has stenosis at venous anastomosis where stent is. Will need venogram, venoplasty prior to DC. Nathan Ch DO
[2017-01-03] MEDS ORDERED: PT OWN MED DRAWER 7, Y5N ONE (21:12)
[2017-01-03] MEDS: ATORVASTATIN CA 80 MG TABLET (FP) PO SCH (21:49)
[2017-01-03] MEDS: INSULIN DETEMIR 100 UNITS/ML MDV SQ SCH (21:52)
[2017-01-04] MEDS: FUROSEMIDE 40 MG TABLET (FP) PO SCH ×2 (06:19→14:43)
[2017-01-04] MEDS: hydrALAZINE HCL 50 MG TABLET (FP) PO SCH ×3 (06:20→22:38)
[2017-01-04] MEDS: INSULIN SLIDING SCALE (NOVOLOG) 1 VIAL SQ SCH ×5 (06:20→22:40)
[2017-01-04 07:10] LABS: MCH 32.6 pg (25.7-33.7); MCHC 32.8 g/dl (32.0-36.0); MEAN CELL VOLUME 99.5 fl (80-96); MEAN PLT VOLUME 8.9 fl (7.5-11.1); PLATELET COUNT 153 K/MM3 (134-434); RDW 14.6 % (11.6-15.6); WHITE BLOOD COUNT 5.9 K/mm3 (4.0-10.0)
[2017-01-04 07:48] LABS: ANION GAP 11 (8-16); CALCIUM 9.2 mg/dL (8.5-10.1); CO2 29 mmol/L (21-32); GLUCOSE,RANDOM 200 mg/dL (74-106)
--- NOTE | 2017-01-04 08:41 | PN ---
Physical Exam: SUBJECTIVE: Patient seen and examined. Says she feels the same as yesterday except for back pain that she said she's always had. OBJECTIVE: Vital Signs Period Temp Pulse Resp BP Sys/[place] Pulse Ox Last 24 Hr 97.9 F-99.4 F 68-100 18-20 127-178/80-106 96 GENERAL: Awake, alert, and fully oriented, in no acute distress. HEAD: Normal with no signs of trauma. EYES: Left eye: 1mm minimally reactive, Right eye: 2mm minimally reactive. Not able to follow fingers with eyes. NOSE, THROAT: oropharynx clear without exudates. Moist mucous membranes. NECK: Normal range of motion, supple without lymphadenopathy, JVD, or masses. LUNGS: Breath sounds equal, clear to auscultation bilaterally. No wheezes, and no crackles. No accessory muscle use. HEART: Regular rate and rhythm, normal S1 and S2 without murmur, rub or gallop. ABDOMEN: obese, soft, nontender, not distended, normoactive bowel sounds, no guarding, no rebound, no masses. No hepatomegaly or splenomegaly. MUSCULOSKELETAL: Normal range of motion at all joints. No bony deformities or tenderness. No CVA tenderness. UPPER EXTREMITIES: Tenderness to right arm at site of AVF. bruit over AVF. No erythema/warmth. 4/5 weakness on RUE and RLE including shoulder shrug, should abduction, bicepts, tricepts, and wrist flexion and extension. 3/5 dorsiflexion and plantar flextion. 5/5 LUE, LLE. 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 4 digits on right foot. 1-2 cm serosanguinous right foot ulcerated lesion distal to great toe at sole of feet. NEURO: -Left eye blindness. -No facial asymmetry. Laboratory Results - last 24 hr 01/03/17 01/03/17 01/04/17 17:29 20:35 05:33 WBC RBC Hgb Hct MCV MCH MCHC RDW Plt Count MPV Sodium Potassium Chloride Carbon Dioxide Anion Gap BUN POC Glucometer 158 191 205 Random Glucose Calcium 01/04/17 01/04/17 05:50 05:50 WBC 5.9 RBC 3.62 Hgb 11.8 Hct 36.1 MCV 99.5 H MCH 32.6 MCHC 32.8 RDW 14.6 Plt Count 153 MPV 8.9 Sodium 139 Potassium 4.0 Chloride 99 Carbon Dioxide 29 D Anion Gap 11 BUN 40 H D POC Glucometer Random Glucose 200 H D Calcium 9.2 Active Medications Generic Name Dose Route Start Last Admin Trade Name Freq PRN Reason Stop Dose Admin Albuterol Sulfate 2 puff 01/02/17 15:21 Ventolin Hfa Inhaler - IH Q12H PRN ASTHMA Aspirin 81 mg 01/03/17 10:00 01/03/17 09:55 Ecotrin - PO 81 mg DAILY [facility] Administration Atorvastatin Calcium 80 mg 01/02/17 22:00 01/03/17 21:49 Lipitor - PO 80 mg HS [facility] Administration Brimonidine Tartrate 2 drop 01/03/17 10:00 01/03/17 11:26 Alphagan 0.2% - OU Not Given DAILY [facility] Bupropion HCl 300 mg 01/03/17 10:00 01/03/17 09:55 Wellbutrin Xl - PO 300 mg DAILY [facility] Administration Carvedilol 12.5 mg 01/02/17 22:00 01/03/17 21:49 Coreg - PO 12.5 mg BID [facility] Administration Clonazepam 0.5 mg 01/02/17 22:00 01/03/17 21:49 Klonopin - PO 0.5 mg BID [facility] Administration Clopidogrel Bisulfate 75 mg 01/03/17 10:00 01/03/17 09:54 Plavix - PO 75 mg DAILY [facility] Administration Furosemide 40 mg 01/03/17 06:00 01/04/17 06:19 Lasix - PO 40 mg BIDLASIX [facility] Administration Hydralazine HCl 50 mg 01/03/17 22:00 01/04/17 06:20 Apresoline - PO 50 mg TID [facility] Administration Insulin Aspart 1 vial 01/02/17 16:30 01/04/17 06:20 Novolog Vial Sliding Scale - SQ 4 units ACHS [facility] Administration Protocol Insulin Detemir 7 units 01/02/17 22:00 01/03/17 21:52 Levemir Vial SQ 7 units HS [facility] Administration Lidocaine/Prilocaine 1 applic 01/02/17 15:21 Emla - TP PRN PRN PAIN Ondansetron HCl 4 mg 01/02/17 15:21 Zofran - PO DAILY PRN NAUSEA Pantoprazole Sodium 40 mg 01/03/17 10:00 01/03/17 09:54 Protonix - PO 40 mg DAILY [facility] Administration Ranitidine HCl 150 mg 01/03/17 10:00 01/03/17 09:54 Zantac - PO 150 mg DAILY [facility] Administration Senna 2 tab 01/03/17 10:00 01/03/17 09:55 Senna - PO 2 tab DAILY [facility] Administration Timolol Maleate 2 drop 01/03/17 10:00 01/03/17 11:26 Timoptic 0.5% OU Not Given DAILY [facility] Topiramate 50 mg 01/02/17 22:00 01/03/17 21:49 Topamax - PO 50 mg BID [facility] Administration ASSESSMENT/PLAN: #Acute CVA -Moderate to large acute/subacute infarct in the left frontal lobe. Other acute/ subacute infarcts are present in the left frontal lobe, anterior cerebral artery territory, watershed region as well as in the left parietal lobe. -Repeat Head CT reviewed: no change -Neuro checks -tele with no a-fib -Echo with no thrombus - US (last admission) with right carotid occlusion. -Continue Wellbutrin XR 300 mg qd -TOBIAS scheduled for tomorrow 10am -Will need hypercoaguable workup outpatient. -Heme/onc consulted -continue home BP meds as per Neuro. -continue Plavix, ASA -FU nuero reccs -will repeat TOBIAS as per Dr. Syed #ESRD w/ dysfunctional fistula -US doppler reviewed. -focal venous stenosis at AVF -Dialysis tomorrow -Will use access for dialysis as per vascular reccs -Will need venogram, venoplasty prior to discharge as per Vascular #DM -ISS -Levemir 7 Units HS #HTN -continue home meds as per neuro -Hydralazine and Carvedilol -increased Hydralazine to TID -Norvasc 10 #DVT: No DVT PPX #FEN: -Not on IV fluids -WNL -Sodium/Diabetic Diet -NPO after midnight for TOBIAS Visit type - Emergency Visit Emergency Visit: Yes ED Registration Date: 01/03/17 Care time: The patient presented to the Emergency Department on the above date and was hospitalized for further evaluation of their emergent condition. - New Patient This patient is new to me today: No - Critical Care Critical Care patient: No
[2017-01-04] MEDS ORDERED: ACETAMINOPHEN 325 MG TABLET (FP) PO ONE (08:45)
[2017-01-04] MEDS: PANTOPRAZOLE 40 MG TABLET (FP) PO SCH (09:01)
[2017-01-04 09:02] LABS: CREATININE 10.1 mg/dL (0.55-1.02)
[2017-01-04] MEDS: clonazePAM 0.5 MG TABLET PO SCH ×2 (09:02→22:41)
[2017-01-04] MEDS: RANITIDINE HCL 150 MG TABLET (FP) PO SCH (09:02)
[2017-01-04] MEDS: CLOPIDOGREL BISULFATE 75 MG TABLET (FP) PO SCH (09:02)
[2017-01-04] MEDS: ASPIRIN COATED 81 MG TABLET.EC PO SCH (09:02)
[2017-01-04] MEDS: CARVEDILOL 12.5 MG TABLET (FP) PO SCH ×2 (09:02→22:38)
[2017-01-04] MEDS: SENNOSIDES 8.6MG TABLET (FP) PO SCH (09:02)
[2017-01-04] MEDS: TOPIRAMATE 25 MG TABLET (FP) PO SCH ×2 (09:03→22:38)
--- NOTE | 2017-01-04 09:05 | PN ---
Progress Note, Physician History of Present Illness: seen and examined today in nad. no overnight events. no new complaints. still c/ o R arm pain and weakness. - Current Medication List Current Medications: Active Medications Albuterol Sulfate (Ventolin Hfa Inhaler -) 2 puff IH Q12H PRN PRN Reason: ASTHMA Aspirin (Ecotrin -) 81 mg PO DAILY [facility] Last Admin: 01/03/17 09:55 Dose: 81 mg Atorvastatin Calcium (Lipitor -) 80 mg PO HS [facility] Last Admin: 01/03/17 21:49 Dose: 80 mg Brimonidine Tartrate (Alphagan 0.2% -) 2 drop OU DAILY [facility] Last Admin: 01/03/17 11:26 Dose: Not Given Bupropion HCl (Wellbutrin Xl -) 300 mg PO DAILY [facility] Last Admin: 01/03/17 09:55 Dose: 300 mg Carvedilol (Coreg -) 12.5 mg PO BID [facility] Last Admin: 01/03/17 21:49 Dose: 12.5 mg Clonazepam (Klonopin -) 0.5 mg PO BID [facility] Last Admin: 01/03/17 21:49 Dose: 0.5 mg Clopidogrel Bisulfate (Plavix -) 75 mg PO DAILY [facility] Last Admin: 01/03/17 09:54 Dose: 75 mg Furosemide (Lasix -) 40 mg PO BIDLASIX [facility] Last Admin: 01/04/17 06:19 Dose: 40 mg Hydralazine HCl (Apresoline -) 50 mg PO TID [facility] Last Admin: 01/04/17 06:20 Dose: 50 mg Insulin Aspart (Novolog Vial Sliding Scale -) 1 vial SQ [facility] PRN Reason: Protocol Last Admin: 01/04/17 06:20 Dose: 4 units Insulin Detemir (Levemir Vial) 7 units SQ [facility] Last Admin: 01/03/17 21:52 Dose: 7 units Lidocaine/Prilocaine (Emla -) 1 applic TP PRN PRN PRN Reason: PAIN Ondansetron HCl (Zofran -) 4 mg PO DAILY PRN PRN Reason: NAUSEA Pantoprazole Sodium (Protonix -) 40 mg PO DAILY [facility] Last Admin: 01/03/17 09:54 Dose: 40 mg Ranitidine HCl (Zantac -) 150 mg PO DAILY [facility] Last Admin: 01/03/17 09:54 Dose: 150 mg Senna (Senna -) 2 tab PO DAILY [facility] Last Admin: 01/03/17 09:55 Dose: 2 tab Timolol Maleate (Timoptic 0.5%) 2 drop OU DAILY [facility] Last Admin: 01/03/17 11:26 Dose: Not Given Topiramate (Topamax -) 50 mg PO BID [facility] Last Admin: 01/03/17 21:49 Dose: 50 mg - Objective Vital Signs: Vital Signs Temperature 98.1 F 01/04/17 06:00 Pulse Rate 84 01/04/17 06:00 Respiratory Rate 20 01/04/17 06:00 Blood Pressure 150/84 01/04/17 06:00 O2 Sat by Pulse Oximetry (%) 96 01/03/17 21:00 Constitutional: Yes: No Distress, Calm, Obese Eyes: Yes: Conjunctiva Clear, EOM Intact HENT: Yes: Atraumatic, Normocephalic Neck: Yes: Supple, Trachea Midline Cardiovascular: Yes: Regular Rate and Rhythm, S1, S2. No: Bradycardia, Tachycardia, Pulse Irregular, Bruit, JVD, Gallop, Murmur, Rub, S3, S4, Varicosities Respiratory: Yes: Regular, CTA Bilaterally. No: Rales, Rhonchi, Wheezes Gastrointestinal: Yes: Normal Bowel Sounds, Soft. No: Distention, Tenderness Musculoskeletal: Yes: Muscle Weakness Extremities: Yes: WNL Edema: No Peripheral Pulses WNL: Yes Peripheral Pulses: Left Doralis Pedis: 2+, Right Dorsalis Pedis: 2+ Integumentary: Yes: WNL Neurological: Yes: Alert, Oriented, Pre-Existing Deficit Psychiatric: Yes: Alert, Oriented Labs: CBC, BMP 01/04/17 05:50 01/04/17 05:50 INR, PTT INR 1.05 (0.82-1.09) 01/03/17 07:35 - ....Imaging Chest X-ray: Report Reviewed, Image Reviewed EKG: Report Reviewed, Image Reviewed Other: Report Reviewed, Image Reviewed (tele-nsr, sinus tach, pvcs, no sig arrhythmias) Assessment/Plan Acute Left frontal CVA Prior CVAs, bilateral Known occluded BHAVIN ESRD DM REC: Continued telemetry. f/up heme evaluation for hypercoag work up and discussion with neuro whether empiric full AC would be considered will plan for TOBIAS tomorrow at 10am, keep npo after midnight except meds for procedure HTN control cont asa, plavix, lipitor for now
[2017-01-04] MEDS: TIMOLOL 0.5% OPHTHALMIC SOL 5 ML BOTTLE OU SCH (09:07)
[2017-01-04] MEDS: BRIMONIDINE TARTRATE 0.2% OPHTHALMIC 5 ML BOTTLE OU SCH (09:07)
--- NOTE | 2017-01-04 13:08 | PN ---
Teaching Attending Note Name of Resident: Manuel Rushing ATTENDING PHYSICIAN STATEMENT I saw and evaluated the patient. I reviewed the resident's note and discussed the case with the resident. I agree with the resident's findings and plan as documented. SUBJECTIVE: Patient feels tired , has no new complains. denies any headache, no shortness of breath, no nausea or vomiting, no abdominal pain. No fever or chills. Continues to have left upper extremity weakness. OBJECTIVE: Vital Signs Temperature 98.7 F 01/04/17 10:00 Pulse Rate 82 01/04/17 10:00 Respiratory Rate 18 01/04/17 10:00 Blood Pressure 142/78 01/04/17 10:00 O2 Sat by Pulse Oximetry (%) 96 01/04/17 10:00 CBCD WBC 5.9 K/mm3 (4.0-10.0) 01/04/17 05:50 RBC 3.62 M/mm3 (3.60-5.2) 01/04/17 05:50 Hgb 11.8 GM/dL (10.7-15.3) 01/04/17 05:50 Hct 36.1 % (32.4-45.2) 01/04/17 05:50 MCV 99.5 fl (80-96) H 01/04/17 05:50 MCHC 32.8 g/dl (32.0-36.0) 01/04/17 05:50 RDW 14.6 % (11.6-15.6) 01/04/17 05:50 Plt Count 153 K/MM3 (134-434) 01/04/17 05:50 MPV 8.9 fl (7.5-11.1) 01/04/17 05:50 CMP Sodium 139 mmol/L (136-145) 01/04/17 05:50 Potassium 4.0 mmol/L (3.5-5.1) 01/04/17 05:50 Chloride 99 mmol/L (98-107) 01/04/17 05:50 Carbon Dioxide 29 mmol/L (21-32) D 01/04/17 05:50 Anion Gap 11 (8-16) 01/04/17 05:50 BUN 40 mg/dL (7-18) H D 01/04/17 05:50 Creatinine 10.1 mg/dL (0.55-1.02) H* D 01/04/17 05:50 Creat Clearance w eGFR 2.82 (>60) 01/03/17 07:35 Random Glucose 200 mg/dL (74-106) H D 01/04/17 05:50 Calcium 9.2 mg/dL (8.5-10.1) 01/04/17 05:50 Total Bilirubin 0.4 mg/dL (0.2-1.0) 01/03/17 07:35 AST 15 U/L (15-37) 01/03/17 07:35 ALT 27 U/L (12-78) D 01/03/17 07:35 Alkaline Phosphatase 51 U/L (45-117) 01/03/17 07:35 Total Protein 6.8 g/dl (6.4-8.2) 01/03/17 07:35 Albumin 3.4 g/dl (3.4-5.0) 01/03/17 07:35 Current Medications Generic Name Dose Route Start Last Admin Trade Name Freq PRN Reason Stop Dose Admin Albuterol Sulfate 2 puff 01/02/17 15:21 Ventolin Hfa Inhaler - IH Q12H PRN ASTHMA Aspirin 81 mg 01/03/17 10:00 01/04/17 09:02 Ecotrin - PO 81 mg DAILY [facility] Administration Atorvastatin Calcium 80 mg 01/02/17 22:00 01/03/17 21:49 Lipitor - PO 80 mg HS [facility] Administration Brimonidine Tartrate 2 drop 01/03/17 10:00 01/04/17 09:07 Alphagan 0.2% - OU Not Given DAILY [facility] Bupropion HCl 300 mg 01/03/17 10:00 01/04/17 09:02 Wellbutrin Xl - PO 300 mg DAILY [facility] Administration Carvedilol 12.5 mg 01/02/17 22:00 01/04/17 09:02 Coreg - PO 12.5 mg BID [facility] Administration Clonazepam 0.5 mg 01/02/17 22:00 01/04/17 09:02 Klonopin - PO 0.5 mg BID [facility] Administration Clopidogrel Bisulfate 75 mg 01/03/17 10:00 01/04/17 09:02 Plavix - PO 75 mg DAILY [facility] Administration Furosemide 40 mg 01/03/17 06:00 01/04/17 06:19 Lasix - PO 40 mg BIDLASIX [facility]O Administration Hydralazine HCl 50 mg 01/03/17 22:00 01/04/17 06:20 Apresoline - PO 50 mg TID [facility] Administration Insulin Aspart 1 vial 01/02/17 16:30 01/04/17 12:02 Novolog Vial Sliding Scale - SQ 2 units ACHS [facility] Administration Protocol Insulin Detemir 7 units 01/02/17 22:00 01/03/17 21:52 Levemir Vial SQ 7 units HS [facility] Administration Lidocaine/Prilocaine 1 applic 01/02/17 15:21 Emla - TP PRN PRN PAIN Ondansetron HCl 4 mg 01/02/17 15:21 Zofran - PO DAILY PRN NAUSEA Pantoprazole Sodium 40 mg 01/03/17 10:00 01/04/17 09:01 Protonix - PO 40 mg DAILY [facility] Administration Ranitidine HCl 150 mg 01/03/17 10:00 01/04/17 09:02 Zantac - PO 150 mg DAILY [facility] Administration Senna 2 tab 01/03/17 10:00 01/04/17 09:02 Senna - PO 2 tab DAILY [facility] Administration Timolol Maleate 2 drop 01/03/17 10:00 01/04/17 09:07 Timoptic 0.5% OU Not Given DAILY [facility] Topiramate 50 mg 01/02/17 22:00 01/04/17 09:03 Topamax - PO 50 mg BID [facility] Administration Home Medications Medication Instructions Recorded Albuterol Sulfate Inhaler - 2 inh PO BID PRN 08/03/16 [Ventolin HFA Inhaler -] Atorvastatin Ca [Lipitor] 80 mg PO HS 08/03/16 Benzonatate 100 mg PO TID PRN 08/03/16 Bisacodyl [Laxative] 10 mg PO BID PRN 08/03/16 Brimonidine Tartrate/Timolol 2 drop OU DAILY 08/03/16 [Combigan 0.2%-0.5% Eye Drops] Carvedilol [Coreg -] 12.5 mg PO BID 08/03/16 Clonazepam [Klonopin -] 0.5 mg PO BID 08/03/16 Famotidine [Pepcid -] 20 mg PO DAILY 08/03/16 Furosemide [Lasix] 40 mg PO BID 08/03/16 Insulin Aspart [Novolog] 10 unit SQ AC 08/03/16 Lidocaine/Prilocaine Cream 1 applic TP PRN PRN 08/03/16 [Lidocaine-Prilocaine Cream -] Mometasone/Formoterol [Dulera 100 2 inh IH BID PRN 08/03/16 Mcg/5 Mcg Inhaler] Ondansetron [Zofran -] 4 mg PO DAILY PRN 08/03/16 Sennosides [Senna] 2 tab PO DAILY 08/03/16 Hydralazine HCl [Apresoline -] 50 mg PO BID tablet 08/06/16 Clopidogrel Bisulfate [Plavix -] 75 mg PO DAILY 08/26/16 Aspirin Coated [Ecotrin -] 325 mg PO DAILY 11/07/16 Cetirizine HCl [Zyrtec -] 5 mg PO DAILY 11/15/16 Bupropion HCl [Wellbutrin Xl -] 300 mg PO DAILY #30 tab.sr.24h 12/22/16 Topiramate [Topamax] 50 mg PO BID 01/02/17 PE: Extremities: Right Av graft, with right upper extremity weakness 4/5 . rest of PE per resident's note. MRa/MRI of brain reviewed: ant.circulation there is no flow in the BHAVIN consistant with either ischemia vs obstruction. CT of the head: acute CVA with petechial hemorrhage. ASSESSMENT AND PLAN: 51 y/o female presented with acute on chronic CVA, with hx of HTN, ESRD, On HD MWF, TIA, IDDM, R hemicranial migraine , R big toe Fx , who presented with RUE heaviness and pain. She was found to have acute L upper frontal stroke. # Acute L frontal stroke with petecheal hemorrhage . MRI reviewed , repeat CT scan today, no change patient will be going for TOBIAS in am for further evaluation by radio interference expert . NPO after midnight cont ASA and plavix and Lipitor 80mg will continue . Hydralazine was increased to 3x per day . will add Norvasc 5mg today for better BP control and better vasospasm control. Hypercoagulable w/u was not approved by our pathologist. ( protein C/S/antithrombin. Prothrombin gene mutation/Jack2/PNH/V leiden mutation. Anticardiolipin/antiphospholipid ABs ). to be done as out pt , will get hematolgy consult for further evaluation since this patient has been having multiple CVAs, and TIAs. will discuss with neuro for further care. with known occluded BHAVIN # ESRD on HD( 3x per week) , nephro on the case . Patient has dysfunctional AVG , but as per Vascular to use her access for dialysis. # DM Uncontrolled continue SSI with coverage and Leemir 7 units at HS # HTN Uncontrolled continue Hydralazine, cont coreg , will add Norvasc to her regimen, discussed with Government Teacher is ok with it. # Ocular lesions seen on CT scan , out pt follow up with ophth DVT PX: SCDs only, no heparin sq in setting of concern of hemorrhagic conversion of stroke. NPO after midnight. going for TOBIAS
[2017-01-04] MEDS: amLODIPine BESYLATE 5 MG TABLET (FP) PO SCH (14:43)
--- NOTE | 2017-01-04 16:25 | CONSULT ---
Consult Consult Specialty:: Hematology - History of Present Illness History of Present Illness: Ms. Frankel is a patient with HTN, ESRD, On HD MWF, CVA , TIA, IDDM, R hemicranial migraine , R big toe Fx , and other medical problems who presented with RUE heaviness and pain. She was found to have acute L upper frontal stroke and also has petechial hemorrhage. Pt is a non smoker Had no losses No personal hx of DVT. 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 Cardio/Vascular: Yes: HTN, Hyperlipdemia, Other (Peripheral vascular disease) Pulmonary: Yes: Asthma, Sleep Apnea Gastrointestinal: Yes: Constipation Renal/: Yes: Renal Failure, Hemodialysis ...LMP: 10/30/16 Rheumatology: Yes: Other (See HPI) Endocrine: Yes: Diabetes Mellitus - Past Surgical History Past Surgical History: Yes: Amputation, AV Fistula/Graft, - Alcohol/Substance Use Hx Alcohol Use: No - Smoking History Smoking history: Never smoked Have you smoked in the past 12 months: No Aproximately how many cigarettes per day: 0 - Social History ADL: Independent History of Recent Travel: No Home Medications - Allergies Allergies/Adverse Reactions: Allergies Allergy/AdvReac Type Severity Reaction Status Date / Time amoxicillin [Amoxicillin] Allergy Severe Itching Verified 01/02/17 10:26 hydrocodone bitartrate Allergy Severe Hives,ITCHI Verified 01/02/17 10:26 [From Vicodin] NG morphine Allergy Severe Itching Verified 01/02/17 10:26 neomycin [Neomycin] Allergy Severe Swelling Verified 01/02/17 10:26 oxycodone HCl [From Percocet] Allergy Severe Itching,HIV Verified 01/02/17 10:26 ES rofecoxib [From Vioxx] Allergy Severe Hives Verified 01/02/17 10:26 Sulfa (Sulfonamide Allergy Severe sclera Verified 01/02/17 10:26 Antibiotics) reddened,ITCHING tramadol Allergy Severe Vomiting Verified 01/02/17 10:26 tomato Allergy Verified 01/02/17 10:26 grapefruit [Grapefruit] AdvReac Severe CAN'T TAKE Verified 01/02/17 10:26 BECAUSE OF MEDICATIONS vancomycin AdvReac Mild red man Verified 01/02/17 10:26 syndrome Heparin Analogues AdvReac Unknown Verified 01/02/17 10:26 [Heparin Agents] flu shot Allergy Severe GETS FLU Uncoded 01/02/17 10:26 SYMPTOMS grape juice AdvReac Severe Uncoded 01/02/17 10:26 - Home Medications Home Medications: Ambulatory Orders Albuterol Sulfate Inhaler - [Ventolin HFA Inhaler -] 2 inh PO BID PRN 08/03/16 Atorvastatin Ca [Lipitor] 80 mg PO HS 08/03/16 Benzonatate 100 mg PO TID PRN 08/03/16 Bisacodyl [Laxative] 10 mg PO BID PRN 08/03/16 Brimonidine Tartrate/Timolol [Combigan 0.2%-0.5% Eye Drops] 2 drop OU DAILY 01/10 Carvedilol [Coreg -] 12.5 mg PO BID 08/03/16 Clonazepam [Klonopin -] 0.5 mg PO BID 08/03/16 Famotidine [Pepcid -] 20 mg PO DAILY 08/03/16 Furosemide [Lasix] 40 mg PO BID 08/03/16 Insulin Aspart [Novolog] 10 unit SQ AC 08/03/16 Lidocaine/Prilocaine Cream [Lidocaine-Prilocaine Cream -] 1 applic TP PRN PRN Mometasone/Formoterol [Dulera 100 Mcg/5 Mcg Inhaler] 2 inh IH BID PRN 08/03/16 Ondansetron [Zofran -] 4 mg PO DAILY PRN 08/03/16 Sennosides [Senna] 2 tab PO DAILY 08/03/16 Hydralazine HCl [Apresoline -] 50 mg PO BID tablet 08/06/16 Clopidogrel Bisulfate [Plavix -] 75 mg PO DAILY 08/26/16 Aspirin Coated [Ecotrin -] 325 mg PO DAILY 11/07/16 Cetirizine HCl [Zyrtec -] 5 mg PO DAILY 11/15/16 Bupropion HCl [Wellbutrin Xl -] 300 mg PO DAILY #30 tab.sr.24h 12/22/16 Topiramate [Topamax] 50 mg PO BID 01/02/17 Physical Exam Vital Signs: Vital Signs Temperature 98.6 F 01/04/17 14:00 Pulse Rate 87 01/04/17 14:00 Respiratory Rate 20 01/04/17 14:00 Blood Pressure 133/87 01/04/17 14:00 O2 Sat by Pulse Oximetry (%) 96 01/04/17 10:00 Constitutional: Yes: Calm Eyes: Yes: WNL HENT: Yes: Atraumatic, Normocephalic Neck: Yes: Supple, Trachea Midline Cardiovascular: Yes: Regular Rate and Rhythm Respiratory: Yes: Regular, CTA Bilaterally Gastrointestinal: Yes: Normal Bowel Sounds, Soft Edema: No Neurological: Yes: Alert, Oriented Labs: CBC, BMP 01/04/17 05:50 01/04/17 05:50 Imaging - Results Cat Scan: Report Reviewed Ultrasound: Report Reviewed MRI: Report Reviewed Problem List - Problems (1) CVA (cerebral vascular accident) Code(s): I63.9 - CEREBRAL INFARCTION, UNSPECIFIED (2) ESRD (end stage renal disease) Code(s): N18.6 - END STAGE RENAL DISEASE (3) Anemia Code(s): D64.9 - ANEMIA, UNSPECIFIED Qualifiers: Chronic kidney disease stage: on chronic dialysis Assessment/Plan Patient with multiple vascular problems , now with acute stroke. Likely etiology is her underlying vascular problems. Last Doppler LE imaging, no evidence of DVT Will send hypercoag w/u, got approval. Pt on ASA and Plavix. at this time, we would ask Neurology and Vascular to opine on whether or not to give full anticoagulation. cardiology w/u ongoing. d.w Jeane Norton
--- NOTE | 2017-01-04 17:42 | PN ---
Progress Note, Physician History of Present Illness: Pt seen and examined at bedside. There were no new events. - Current Medication List Current Medications: Active Medications Albuterol Sulfate (Ventolin Hfa Inhaler -) 2 puff IH Q12H PRN PRN Reason: ASTHMA Amlodipine Besylate (Norvasc -) 5 mg PO DAILY [facility] Last Admin: 01/04/17 14:43 Dose: 5 mg Aspirin (Ecotrin -) 81 mg PO DAILY [facility] Last Admin: 01/04/17 09:02 Dose: 81 mg Atorvastatin Calcium (Lipitor -) 80 mg PO HS [facility] Last Admin: 01/03/17 21:49 Dose: 80 mg Brimonidine Tartrate (Alphagan 0.2% -) 2 drop OU DAILY [facility] Last Admin: 01/04/17 09:07 Dose: Not Given Bupropion HCl (Wellbutrin Xl -) 300 mg PO DAILY [facility] Last Admin: 01/04/17 09:02 Dose: 300 mg Carvedilol (Coreg -) 12.5 mg PO BID [facility] Last Admin: 01/04/17 09:02 Dose: 12.5 mg Clonazepam (Klonopin -) 0.5 mg PO BID [facility] Last Admin: 01/04/17 09:02 Dose: 0.5 mg Clopidogrel Bisulfate (Plavix -) 75 mg PO DAILY [facility] Last Admin: 01/04/17 09:02 Dose: 75 mg Furosemide (Lasix -) 40 mg PO BIDLASIX ON [facility] Last Admin: 01/04/17 14:43 Dose: 40 mg Hydralazine HCl (Apresoline -) 50 mg PO TID [facility] Last Admin: 01/04/17 14:43 Dose: 50 mg Insulin Aspart (Novolog Vial Sliding Scale -) 1 vial SQ ACHS ON [facility] PRN Reason: Protocol Last Admin: 01/04/17 17:17 Dose: Not Given Insulin Detemir (Levemir Vial) 7 units SQ HS [facility] Last Admin: 01/03/17 21:52 Dose: 7 units Lidocaine/Prilocaine (Emla -) 1 applic TP PRN PRN PRN Reason: PAIN Ondansetron HCl (Zofran -) 4 mg PO DAILY PRN PRN Reason: NAUSEA Pantoprazole Sodium (Protonix -) 40 mg PO DAILY [facility] Last Admin: 01/04/17 09:01 Dose: 40 mg Ranitidine HCl (Zantac -) 150 mg PO DAILY [facility] Last Admin: 01/04/17 09:02 Dose: 150 mg Senna (Senna -) 2 tab PO DAILY [facility] Last Admin: 01/04/17 09:02 Dose: 2 tab Timolol Maleate (Timoptic 0.5%) 2 drop OU DAILY [facility] Last Admin: 01/04/17 09:07 Dose: Not Given Topiramate (Topamax -) 50 mg PO BID [facility] Last Admin: 01/04/17 09:03 Dose: 50 mg - Objective Vital Signs: Vital Signs Temperature 98.6 F 01/04/17 14:00 Pulse Rate 87 01/04/17 14:00 Respiratory Rate 20 01/04/17 14:00 Blood Pressure 133/87 01/04/17 14:00 O2 Sat by Pulse Oximetry (%) 96 01/04/17 10:00 Constitutional: Yes: Calm Eyes: Yes: Conjunctiva Clear HENT: Yes: Atraumatic Cardiovascular: Yes: S1, S2 Respiratory: Yes: CTA Bilaterally Gastrointestinal: Yes: Soft, Abdomen, Obese Genitourinary: Yes: WNL Musculoskeletal: Yes: Muscle Weakness Edema: No Neurological: Yes: Oriented, Other (right arm weakness) Labs: CBC, BMP 01/04/17 05:50 01/04/17 05:50 INR, PTT INR 1.05 (0.82-1.09) 01/03/17 07:35 Problem List - Problems (1) CVA (cerebral vascular accident) Code(s): I63.9 - CEREBRAL INFARCTION, UNSPECIFIED (2) Diabetes Code(s): E11.9 - TYPE 2 DIABETES MELLITUS WITHOUT COMPLICATIONS Qualifiers: Diabetes mellitus type: type 2 Diabetes mellitus complication status: with kidney complications Diabetes mellitus complication detail: with chronic kidney disease Diabetes mellitus senior living insulin use: with senior living use Chronic kidney disease stage: on chronic dialysis Qualified Code(s): E11.22 - Type 2 diabetes mellitus with diabetic chronic kidney disease ; E11.22 - Type 2 diabetes mellitus with diabetic chronic kidney disease; E11.22 - Type 2 diabetes mellitus with diabetic chronic kidney disease; E11.22 - Type 2 diabetes mellitus with diabetic chronic kidney disease; E11.22 - Type 2 diabetes mellitus with diabetic chronic kidney disease; N18.1 - Chronic kidney disease, stage 1; N18.1 - Chronic kidney disease, stage 1; Z79.4 - terminologist (current) use of insulin; Z79.4 - terminologist (current) use of insulin; Z79.4 - terminologist (current) use of insulin; Z79.4 - half-way (current) use of insulin (3) ESRD (end stage renal disease) Code(s): N18.6 - END STAGE RENAL DISEASE (4) Hypertension Code(s): I10 - ESSENTIAL (PRIMARY) HYPERTENSION Qualifiers: Hypertension type: essential hypertension Qualified Code(s): I10 - Essential (primary) hypertension; I10 - Essential (primary) hypertension; I10 - Essential (primary) hypertension Assessment/Plan Current Medications Generic Name Dose Route Start Last Admin Trade Name Freq PRN Reason Stop Dose Admin Albuterol Sulfate 2 puff 01/02/17 15:21 Ventolin Hfa Inhaler - IH Q12H PRN ASTHMA Amlodipine Besylate 5 mg 01/04/17 13:45 01/04/17 14:43 Norvasc - PO 5 mg DAILY [facility] Administration Aspirin 81 mg 01/03/17 10:00 01/04/17 09:02 Ecotrin - PO 81 mg DAILY [facility] Administration Atorvastatin Calcium 80 mg 01/02/17 22:00 01/03/17 21:49 Lipitor - PO 80 mg HS [facility] Administration Brimonidine Tartrate 2 drop 01/03/17 10:00 01/04/17 09:07 Alphagan 0.2% - OU Not Given DAILY [facility] Bupropion HCl 300 mg 01/03/17 10:00 01/04/17 09:02 Wellbutrin Xl - PO 300 mg DAILY [facility] Administration Carvedilol 12.5 mg 01/02/17 22:00 01/04/17 09:02 Coreg - PO 12.5 mg BID [facility] Administration Clonazepam 0.5 mg 01/02/17 22:00 01/04/17 09:02 Klonopin - PO 0.5 mg BID [facility] Administration Clopidogrel Bisulfate 75 mg 01/03/17 10:00 01/04/17 09:02 Plavix - PO 75 mg DAILY [facility] Administration Furosemide 40 mg 01/03/17 06:00 01/04/17 14:43 Lasix - PO 40 mg BIDLASIX [facility] Administration Hydralazine HCl 50 mg 01/03/17 22:00 01/04/17 14:43 Apresoline - PO 50 mg TID [facility] Administration Insulin Aspart 1 vial 01/02/17 16:30 01/04/17 17:17 Novolog Vial Sliding Scale - SQ Not Given ACHS ON [facility] Protocol Insulin Detemir 7 units 01/02/17 22:00 01/03/17 21:52 Levemir Vial SQ 7 units HS [facility] Administration Lidocaine/Prilocaine 1 applic 01/02/17 15:21 Emla - TP PRN PRN PAIN Ondansetron HCl 4 mg 01/02/17 15:21 Zofran - PO DAILY PRN NAUSEA Pantoprazole Sodium 40 mg 01/03/17 10:00 01/04/17 09:01 Protonix - PO 40 mg DAILY [facility] Administration Ranitidine HCl 150 mg 01/03/17 10:00 01/04/17 09:02 Zantac - PO 150 mg DAILY [facility] Administration Senna 2 tab 01/03/17 10:00 01/04/17 09:02 Senna - PO 2 tab DAILY [facility] Administration Timolol Maleate 2 drop 01/03/17 10:00 01/04/17 09:07 Timoptic 0.5% OU Not Given DAILY [facility] Topiramate 50 mg 01/02/17 22:00 01/04/17 09:03 Topamax - PO 50 mg BID [facility] Administration Impression 1. ESRD 2. CVA 3. DM 4. HLD 5. HTN 6. anemia 7. anxiety 8. infected right foot ulcer Plan - will arrange for HD in am - cont current meds - neuro follow up - pt/rehab - will not use heparin on HD - will follow Dr Sharma
[2017-01-04] MEDS ORDERED: PT OWN MED DRAWER 7, Y5N ONE (22:32)
[2017-01-04] MEDS: ATORVASTATIN CA 80 MG TABLET (FP) PO SCH (22:38)
[2017-01-04] MEDS: INSULIN DETEMIR 100 UNITS/ML MDV SQ SCH (22:39)
[2017-01-05 06:07] LABS: HEP B SURFACE AB Reactive (.)
[2017-01-05] MEDS: FUROSEMIDE 40 MG TABLET (FP) PO SCH ×2 (06:19→13:14)
[2017-01-05] MEDS: hydrALAZINE HCL 50 MG TABLET (FP) PO SCH ×3 (06:19→22:06)
[2017-01-05] MEDS: INSULIN SLIDING SCALE (NOVOLOG) 1 VIAL SQ SCH ×4 (06:20→22:07)
[2017-01-05] MEDS ORDERED: INSULIN DETEMIR 100 UNITS/ML MDV SQ ONE (06:42)
--- NOTE | 2017-01-05 09:13 | PN ---
Progress Note (short form) - Note Progress Note: Vascular Surgery For venogram of right avg arthur. NPO past midnight. Nathan Ch DO
[2017-01-05] MEDS ORDERED: PT OWN MED DRAWER 7, Y5N ONE ×2 (09:16→22:25)
[2017-01-05] MEDS: CARVEDILOL 12.5 MG TABLET (FP) PO SCH ×3 (10:34→22:06)
[2017-01-05] MEDS: ASPIRIN COATED 81 MG TABLET.EC PO SCH ×2 (10:34→13:17)
[2017-01-05] MEDS: BRIMONIDINE TARTRATE 0.2% OPHTHALMIC 5 ML BOTTLE OU SCH (10:34)
[2017-01-05] MEDS: RANITIDINE HCL 150 MG TABLET (FP) PO SCH ×2 (10:35→13:17)
[2017-01-05] MEDS: SENNOSIDES 8.6MG TABLET (FP) PO SCH ×2 (10:35→13:18)
[2017-01-05] MEDS: amLODIPine BESYLATE 5 MG TABLET (FP) PO SCH (10:35)
[2017-01-05] MEDS: TOPIRAMATE 25 MG TABLET (FP) PO SCH ×3 (10:35→22:05)
[2017-01-05] MEDS: clonazePAM 0.5 MG TABLET PO SCH ×3 (10:35→22:05)
[2017-01-05] MEDS: PANTOPRAZOLE 40 MG TABLET (FP) PO SCH ×2 (10:35→13:17)
[2017-01-05] MEDS: CLOPIDOGREL BISULFATE 75 MG TABLET (FP) PO SCH ×2 (10:35→13:17)
[2017-01-05] MEDS: TIMOLOL 0.5% OPHTHALMIC SOL 5 ML BOTTLE OU SCH (10:35)
[2017-01-05] MEDS ORDERED: LIDOCAINE HCL/PF 2% SDV 5ML VIAL ONE (10:46)
[2017-01-05] MEDS ORDERED: ETOMIDATE 20 MG/10 ML AMPUL IVPUSH ONE (10:46)
[2017-01-05] MEDS ORDERED: PROPOFOL 20 ML ONE (10:47)
[2017-01-05] MEDS ORDERED: MIDAZOLAM HCL 5 MG/1 ML Single Dose Vial ONE (10:56)
[2017-01-05] MEDS ORDERED: MIDAZOLAM HCL 2 MG/2 ML SINGLE DOSE VIAL ONE (10:58)
--- NOTE | 2017-01-05 11:53 | PN ---
Progress Note, Physician History of Present Illness: see a/p - Current Medication List Current Medications: Active Medications Albuterol Sulfate (Ventolin Hfa Inhaler -) 2 puff IH Q12H PRN PRN Reason: ASTHMA Amlodipine Besylate (Norvasc -) 5 mg PO DAILY [facility] Last Admin: 01/05/17 10:35 Dose: Not Given Aspirin (Ecotrin -) 81 mg PO DAILY [facility] Last Admin: 01/05/17 10:34 Dose: Not Given Atorvastatin Calcium (Lipitor -) 80 mg PO HS [facility] Last Admin: 01/04/17 22:38 Dose: 80 mg Brimonidine Tartrate (Alphagan 0.2% -) 2 drop OU DAILY [facility] Last Admin: 01/05/17 10:34 Dose: Not Given Bupropion HCl (Wellbutrin Xl -) 300 mg PO DAILY [facility] Last Admin: 01/05/17 10:35 Dose: Not Given Carvedilol (Coreg -) 12.5 mg PO BID [facility] Last Admin: 01/05/17 10:34 Dose: Not Given Clonazepam (Klonopin -) 0.5 mg PO BID [facility] Last Admin: 01/05/17 10:35 Dose: Not Given Clopidogrel Bisulfate (Plavix -) 75 mg PO DAILY [facility] Last Admin: 01/05/17 10:35 Dose: Not Given Furosemide (Lasix -) 40 mg PO BIDLASIX [facility] Last Admin: 01/05/17 06:19 Dose: 40 mg Hydralazine HCl (Apresoline -) 50 mg PO TID [facility] Last Admin: 01/05/17 06:19 Dose: 50 mg Insulin Aspart (Novolog Vial Sliding Scale -) [address] [facility] PRN Reason: Protocol Last Admin: 01/05/17 06:20 Dose: Not Given Insulin Detemir (Levemir Vial) 7 units SQ HS [facility] Last Admin: 01/04/17 22:39 Dose: 7 units Lidocaine/Prilocaine (Emla -) 1 applic TP PRN PRN PRN Reason: PAIN Ondansetron HCl (Zofran -) 4 mg PO DAILY PRN PRN Reason: NAUSEA Pantoprazole Sodium (Protonix -) 40 mg PO DAILY [facility] Last Admin: 01/05/17 10:35 Dose: Not Given Ranitidine HCl (Zantac -) 150 mg PO DAILY [facility] Last Admin: 01/05/17 10:35 Dose: Not Given Senna (Senna -) 2 tab PO DAILY [facility] Last Admin: 01/05/17 10:35 Dose: Not Given Timolol Maleate (Timoptic 0.5%) 2 drop OU DAILY [facility] Last Admin: 01/05/17 10:35 Dose: Not Given Topiramate (Topamax -) 50 mg PO BID [facility] Last Admin: 01/05/17 10:35 Dose: Not Given - Objective Vital Signs: Vital Signs Temperature 98.1 F 01/05/17 06:00 Pulse Rate 79 01/05/17 06:00 Respiratory Rate 16 01/05/17 06:00 Blood Pressure 161/84 01/05/17 06:00 O2 Sat by Pulse Oximetry (%) 96 01/04/17 21:00 Constitutional: Yes: No Distress, Calm, Obese Eyes: Yes: Conjunctiva Clear, EOM Intact, PERRL HENT: Yes: Atraumatic, Normocephalic Neck: Yes: Supple, Trachea Midline Cardiovascular: Yes: Regular Rate and Rhythm, S1, S2. No: Bradycardia, Tachycardia, Pulse Irregular, Bruit, JVD, Gallop, Murmur, Rub, S3, S4, Varicosities Respiratory: Yes: Regular, CTA Bilaterally. No: Rales, Rhonchi, Wheezes Gastrointestinal: Yes: Normal Bowel Sounds, Soft. No: Distention, Tenderness Edema: No Peripheral Pulses WNL: No Peripheral Pulses: Left Doralis Pedis: 2+, Right Dorsalis Pedis: 2+ Neurological: Yes: Alert, Oriented Psychiatric: Yes: Alert, Oriented Labs: CBC, BMP 01/04/17 05:50 01/04/17 05:50 INR, PTT INR 1.05 (0.82-1.09) 01/03/17 07:35 - ....Imaging Chest X-ray: Report Reviewed, Image Reviewed EKG: Report Reviewed, Image Reviewed Other: Report Reviewed, Image Reviewed Assessment/Plan Acute Left frontal CVA Prior CVAs, bilateral Known occluded BHAVIN ESRD DM REC: Pt was brought to endoscopy for TOBIAS, prior to TOBIAS during initiation of anesthesia she was noted to have seizure like activity with stiffness of R arm and associated rhythmic movements as well as rhythmic movements of eyes. This was immediately after etomidate. She was then given propofol and seizure like activity stopped. The event lasted approximately 30seconds to 1 minute. BP did not significantly drop, SaO2 was 100%, heart rate and rhythm were unchanged. She then woke up from sleep and was alert and oriented. TOBIAS was cancelled. Medical team came to see patient and will re-evaluate when she returns to telemetry floor. Recc Neuro f/up and consideration for EEG Can resume diet once establish that pt is fully awake and able to tolerate po intake
[2017-01-05 14:37] LABS: ANION GAP 12 (8-16); CALCIUM 9.4 mg/dL (8.5-10.1); CO2 28 mmol/L (21-32); GLUCOSE,RANDOM 143 mg/dL (74-106)
[2017-01-05 14:44] LABS: THYROID STIMULATING HORMONE 1.22 uIU/ml (0.358-3.74)
--- NOTE | 2017-01-05 15:19 | PN ---
Physical Exam: SUBJECTIVE: Patient seen and examined. No acute events overnight. Offers no new complaints today. OBJECTIVE: Vital Signs Period Temp Pulse Resp BP Sys/[place] Pulse Ox Last 24 Hr 98.1 F-98.2 F 79-88 16-18 149-177/76-93 96-96 GENERAL: Awake, alert, and fully oriented, in no acute distress. HEAD: Normal with no signs of trauma. EYES: Left eye: 1mm minimally reactive, Right eye: 2mm minimally reactive. Not able to follow fingers with eyes. NOSE, THROAT: oropharynx clear without exudates. Moist mucous membranes. NECK: Normal range of motion, supple without lymphadenopathy, JVD, or masses. LUNGS: Breath sounds equal, clear to auscultation bilaterally. No wheezes, and no crackles. No accessory muscle use. HEART: Regular rate and rhythm, normal S1 and S2 without murmur, rub or gallop. ABDOMEN: obese, soft, nontender, not distended, normoactive bowel sounds, no guarding, no rebound, no masses. No hepatomegaly or splenomegaly. MUSCULOSKELETAL: Normal range of motion at all joints. No bony deformities or tenderness. No CVA tenderness. UPPER EXTREMITIES: Tenderness to right arm at site of AVF. bruit over AVF. No erythema/warmth. 4/5 weakness on RUE and RLE including shoulder shrug, should abduction, bicepts, tricepts, and wrist flexion and extension. 3/5 dorsiflexion and plantar flextion. 5/5 LUE, LLE. 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 4 digits on right foot. 1-2 cm serosanguinous right foot ulcerated lesion distal to great toe at sole of feet. NEURO: -Left eye blindness. -No facial asymmetry. Laboratory Results - last 24 hr 01/03/17 01/04/17 01/04/17 19:30 17:08 22:24 Sodium Potassium Chloride Carbon Dioxide Anion Gap BUN Creatinine POC Glucometer 150 173 Random Glucose Calcium TSH Serum , Qual Hepatitis A Ab Total Negative Hep Bs Antigen Negative Hep Bs Antibody Reactive Hep B Core Total Ab Negative Hepatitis C Antibody <0.1 01/05/17 01/05/17 01/05/17 05:18 10:05 12:03 Sodium Potassium Chloride Carbon Dioxide Anion Gap BUN Creatinine POC Glucometer 148 141 Random Glucose Calcium TSH Serum , Qual Negative Hepatitis A Ab Total Hep Bs Antigen Hep Bs Antibody Hep B Core Total Ab Hepatitis C Antibody 01/05/17 14:24 Sodium 140 Potassium 4.8 Chloride 100 Carbon Dioxide 28 Anion Gap 12 BUN 56 H D Creatinine 13.0 H* D POC Glucometer Random Glucose 143 H D Calcium 9.4 TSH 1.22 D Serum , Qual Hepatitis A Ab Total Hep Bs Antigen Hep Bs Antibody Hep B Core Total Ab Hepatitis C Antibody Active Medications Generic Name Dose Route Start Last Admin Trade Name Freq PRN Reason Stop Dose Admin Albuterol Sulfate 2 puff 01/02/17 15:21 Ventolin Hfa Inhaler - IH Q12H PRN ASTHMA Amlodipine Besylate 5 mg 01/04/17 13:45 01/05/17 10:35 Norvasc - PO Not Given DAILY MANDO Aspirin 81 mg 01/03/17 10:00 01/05/17 13:17 Ecotrin - PO 81 mg DAILY MANDO Administration Atorvastatin Calcium 80 mg 01/02/17 22:00 01/04/17 22:38 Lipitor - PO 80 mg HS MANDO Administration Brimonidine Tartrate 2 drop 01/03/17 10:00 01/05/17 10:34 Alphagan 0.2% - OU Not Given DAILY MANDO Bupropion HCl 300 mg 01/03/17 10:00 01/05/17 13:17 Wellbutrin Xl - PO 300 mg DAILY MANDO Administration Carvedilol 12.5 mg 01/02/17 22:00 01/05/17 13:17 Coreg - PO 12.5 mg BID MANDO Administration Clonazepam 0.5 mg 01/02/17 22:00 01/05/17 13:17 Klonopin - PO 0.5 mg BID MANDO Administration Clopidogrel Bisulfate 75 mg 01/03/17 10:00 01/05/17 13:17 Plavix - PO 75 mg DAILY MANDO Administration Furosemide 40 mg 01/03/17 06:00 01/05/17 13:14 Lasix - PO Not Given BIDLASIX MANDO Hydralazine HCl 50 mg 01/03/17 22:00 01/05/17 13:17 Apresoline - PO 50 mg TID MANDO Administration Insulin Aspart 1 vial 01/02/17 16:30 01/05/17 12:06 Novolog Vial Sliding Scale - SQ Not Given ACHS [facility] Protocol Insulin Detemir 7 units 01/02/17 22:00 01/04/17 22:39 Levemir Vial SQ 7 units HS MANDO Administration Lidocaine/Prilocaine 1 applic 01/02/17 15:21 Emla - TP PRN PRN PAIN Ondansetron HCl 4 mg 01/02/17 15:21 Zofran - PO DAILY PRN NAUSEA Pantoprazole Sodium 40 mg 01/03/17 10:00 01/05/17 13:17 Protonix - PO 40 mg DAILY MANDO Administration Ranitidine HCl 150 mg 01/03/17 10:00 01/05/17 13:17 Zantac - PO 150 mg DAILY MANDO Administration Senna 2 tab 01/03/17 10:00 01/05/17 13:18 Senna - PO 2 tab DAILY MANDO Administration Timolol Maleate 2 drop 01/03/17 10:00 01/05/17 10:35 Timoptic 0.5% OU Not Given DAILY MANDO Topiramate 50 mg 01/02/17 22:00 01/05/17 13:17 Topamax - PO 50 mg BID MANDO Administration ASSESSMENT/PLAN: #Acute CVA -Moderate to large acute/subacute infarct in the left frontal lobe. Other acute/ subacute infarcts are present in the left frontal lobe, anterior cerebral artery territory, watershed region as well as in the left parietal lobe. -Repeat Head CT reviewed: no change -Neuro checks -tele with no a-fib -Echo with no thrombus - US (last admission) with right carotid occlusion. -Continue Wellbutrin XR 300 mg qd as per neuro -TOBIAS cancelled because of seizure-like activity prior to procedure. during initiation of anesthesia she was noted to have seizure like activity with stiffness of R arm and associated rhythmic movements as well as rhythmic movements of eyes. This was immediately after etomidate. She was then given propofol and seizure like activity stopped. -neurology notified -Heme/onc consulted. F/U hypercoaguable tests -continue home BP meds as per Neuro. -continue Plavix, ASA -FU nuero reccs #ESRD w/ dysfunctional fistula -US doppler reviewed. -focal venous stenosis at AVF -Dialysis today -Will need venogram, venoplasty prior to discharge as per Vascular #DM -ISS -Levemir 7 Units HS #HTN -continue home meds as per neuro -Hydralazine and Carvedilol -increased Hydralazine to TID -Norvasc 10 #DVT: No DVT PPX #FEN: -Not on IV fluids -WNL -renal diet Visit type - Emergency Visit Emergency Visit: Yes ED Registration Date: 01/03/17 Care time: The patient presented to the Emergency Department on the above date and was hospitalized for further evaluation of their emergent condition. - New Patient This patient is new to me today: No - Critical Care Critical Care patient: No
--- NOTE | 2017-01-05 15:49 | PN ---
Teaching Attending Note Name of Resident: Manuel Rushing ATTENDING PHYSICIAN STATEMENT I saw and evaluated the patient. I reviewed the resident's note and discussed the case with the resident. I agree with the resident's findings and plan as documented. SUBJECTIVE: Comfortable with no acute distress. Earlier patient went for TOBIAS, was found to have seizure like activity witnessed by stripe marker. Patient is totally awake, with no acute distress at this time. OBJECTIVE: Vital Signs Temperature 98.2 F 01/05/17 14:08 Pulse Rate 81 01/05/17 14:08 Respiratory Rate 16 01/05/17 14:08 Blood Pressure 163/93 01/05/17 14:08 O2 Sat by Pulse Oximetry (%) 96 01/05/17 09:00 CBCD WBC 5.9 K/mm3 (4.0-10.0) 01/04/17 05:50 RBC 3.62 M/mm3 (3.60-5.2) 01/04/17 05:50 Hgb 11.8 GM/dL (10.7-15.3) 01/04/17 05:50 Hct 36.1 % (32.4-45.2) 01/04/17 05:50 MCV 99.5 fl (80-96) H 01/04/17 05:50 MCHC 32.8 g/dl (32.0-36.0) 01/04/17 05:50 RDW 14.6 % (11.6-15.6) 01/04/17 05:50 Plt Count 153 K/MM3 (134-434) 01/04/17 05:50 MPV 8.9 fl (7.5-11.1) 01/04/17 05:50 CMP Sodium 140 mmol/L (136-145) 01/05/17 14:24 Potassium 4.8 mmol/L (3.5-5.1) 01/05/17 14:24 Chloride 100 mmol/L (98-107) 01/05/17 14:24 Carbon Dioxide 28 mmol/L (21-32) 01/05/17 14:24 Anion Gap 12 (8-16) 01/05/17 14:24 BUN 56 mg/dL (7-18) H D 01/05/17 14:24 Creatinine 13.0 mg/dL (0.55-1.02) H* D 01/05/17 14:24 Creat Clearance w eGFR 2.82 (>60) 01/03/17 07:35 Random Glucose 143 mg/dL (74-106) H D 01/05/17 14:24 Calcium 9.4 mg/dL (8.5-10.1) 01/05/17 14:24 Total Bilirubin 0.4 mg/dL (0.2-1.0) 01/03/17 07:35 AST 15 U/L (15-37) 01/03/17 07:35 ALT 27 U/L (12-78) D 01/03/17 07:35 Alkaline Phosphatase 51 U/L (45-117) 01/03/17 07:35 Total Protein 6.8 g/dl (6.4-8.2) 01/03/17 07:35 Albumin 3.4 g/dl (3.4-5.0) 01/03/17 07:35 Current Medications Generic Name Dose Route Start Last Admin Trade Name Freq PRN Reason Stop Dose Admin Albuterol Sulfate 2 puff 01/02/17 15:21 Ventolin Hfa Inhaler - IH Q12H PRN ASTHMA Amlodipine Besylate 5 mg 01/04/17 13:45 01/05/17 10:35 Norvasc - PO Not Given DAILY MANDO Aspirin 81 mg 01/03/17 10:00 01/05/17 13:17 Ecotrin - PO 81 mg DAILY MANDO Administration Atorvastatin Calcium 80 mg 01/02/17 22:00 01/04/17 22:38 Lipitor - PO 80 mg HS MANDO Administration Brimonidine Tartrate 2 drop 01/03/17 10:00 01/05/17 10:34 Alphagan 0.2% - OU Not Given DAILY MANDO Bupropion HCl 300 mg 01/03/17 10:00 01/05/17 13:17 Wellbutrin Xl - PO 300 mg DAILY MANDO Administration Carvedilol 12.5 mg 01/02/17 22:00 01/05/17 13:17 Coreg - PO 12.5 mg BID MANDO Administration Clonazepam 0.5 mg 01/02/17 22:00 01/05/17 13:17 Klonopin - PO 0.5 mg BID MANDO Administration Clopidogrel Bisulfate 75 mg 01/03/17 10:00 01/05/17 13:17 Plavix - PO 75 mg DAILY MANDO Administration Furosemide 40 mg 01/03/17 06:00 01/05/17 13:14 Lasix - PO Not Given BIDLASIX MANDO Hydralazine HCl 50 mg 01/03/17 22:00 01/05/17 13:17 Apresoline - PO 50 mg TID [facility] Administration Insulin Aspart 1 vial 01/02/17 16:30 01/05/17 12:06 Novolog Vial Sliding Scale - SQ Not Given ACHS [facility] Protocol Insulin Detemir 7 units 01/02/17 22:00 01/04/17 22:39 Levemir Vial SQ 7 units HS [facility] Administration Lidocaine/Prilocaine 1 applic 01/02/17 15:21 Emla - TP PRN PRN PAIN Ondansetron HCl 4 mg 01/02/17 15:21 Zofran - PO DAILY PRN NAUSEA Pantoprazole Sodium 40 mg 01/03/17 10:00 01/05/17 13:17 Protonix - PO 40 mg DAILY MANDO Administration Ranitidine HCl 150 mg 01/03/17 10:00 01/05/17 13:17 Zantac - PO 150 mg DAILY [facility] Administration Senna 2 tab 01/03/17 10:00 01/05/17 13:18 Senna - PO 2 tab DAILY [facility] Administration Timolol Maleate 2 drop 01/03/17 10:00 01/05/17 10:35 Timoptic 0.5% OU Not Given DAILY [facility] Topiramate 50 mg 01/02/17 22:00 01/05/17 13:17 Topamax - PO 50 mg BID [facility] Administration Home Medications Medication Instructions Recorded Albuterol Sulfate Inhaler - 2 inh PO BID PRN 08/03/16 [Ventolin HFA Inhaler -] Atorvastatin Ca [Lipitor] 80 mg PO HS 08/03/16 Benzonatate 100 mg PO TID PRN 08/03/16 Bisacodyl [Laxative] 10 mg PO BID PRN 08/03/16 Brimonidine Tartrate/Timolol 2 drop OU DAILY 08/03/16 [Combigan 0.2%-0.5% Eye Drops] Carvedilol [Coreg -] 12.5 mg PO BID 08/03/16 Clonazepam [Klonopin -] 0.5 mg PO BID 08/03/16 Famotidine [Pepcid -] 20 mg PO DAILY 08/03/16 Furosemide [Lasix] 40 mg PO BID 08/03/16 Insulin Aspart [Novolog] 10 unit SQ AC 08/03/16 Lidocaine/Prilocaine Cream 1 applic TP PRN PRN 08/03/16 [Lidocaine-Prilocaine Cream -] Mometasone/Formoterol [Dulera 100 2 inh IH BID PRN 08/03/16 Mcg/5 Mcg Inhaler] Ondansetron [Zofran -] 4 mg PO DAILY PRN 08/03/16 Sennosides [Senna] 2 tab PO DAILY 08/03/16 Hydralazine HCl [Apresoline -] 50 mg PO BID tablet 08/06/16 Clopidogrel Bisulfate [Plavix -] 75 mg PO DAILY 08/26/16 Aspirin Coated [Ecotrin -] 325 mg PO DAILY 11/07/16 Cetirizine HCl [Zyrtec -] 5 mg PO DAILY 11/15/16 Bupropion HCl [Wellbutrin Xl -] 300 mg PO DAILY #30 tab.sr.24h 12/22/16 Topiramate [Topamax] 50 mg PO BID 01/02/17 PE: Extremities: Right Av graft, with right upper extremity weakness 4/5 . rest of PE per resident's note. MRa/MRI of brain reviewed: ant.circulation there is no flow in the BHAVIN consistant with either ischemia vs obstruction. CT of the head: acute CVA with petechial hemorrhage. ASSESSMENT AND PLAN: 51 y/o female presented with acute on chronic CVA, with hx of HTN, ESRD, On HD MWF, TIA, IDDM, R hemicranial migraine , R big toe Fx , who presented with RUE heaviness and pain. She was found to have acute L upper frontal stroke. # Acute Left frontal stroke with petecheal hemorrhage . MRa/MRI of brain reviewed: ant.circulation there is no flow in the BHAVIN consistant with either ischemia vs obstruction. discussed with the neurologist as per neuro this is not a new finding as per his impression , patient has an anxiety attack and occasionally will have movements of her right arm. Patient was started on anxiolytics. TOBIAS was not completed due to possible having seizure. cont ASA and plavix and Lipitor 80mg will continue . Hydralazine was increased to 3x per day . will add Norvasc 5mg today for better BP control and better vasospasm control. Hypercoagulable w/u was not approved by our pathologist. ( protein C/S/antithrombin. Prothrombin gene mutation/Jack2/PNH/V leiden mutation. Anticardiolipin/antiphospholipid ABs ). to be done as out pt , will get hematolgy consult for further evaluation since this patient has been having multiple CVAs, and TIAs. will discuss with neuro for further care. with known occluded BHAVIN # ESRD on HD( 3x per week) , nephro on the case .Vascular on the case for dysfunctional AVG , but as per Vascular to use her access for dialysis for now. # DM Uncontrolled continue SSI with coverage and Levemir 7 units at HS # HTN Uncontrolled continue Hydralazine, cont coreg , Norvasc to her regimen, was ok with cardiology. # Ocular lesions seen on CT scan , out pt follow up with ophthalmo. DVT PX: SCDs only, no heparin sq in setting of concern of hemorrhagic conversion of stroke. EEG ordered
--- NOTE | 2017-01-05 16:05 | PN ---
Progress Note, Physician History of Present Illness: Pt seen and examined at bedside. She is awake and alert. Chart reviewed and pt may have had a seizure. She is now awake and alert. She denies shortness of breath. She just finished lunch. - Current Medication List Current Medications: Active Medications Albuterol Sulfate (Ventolin Hfa Inhaler -) 2 puff IH Q12H PRN PRN Reason: ASTHMA Amlodipine Besylate (Norvasc -) 5 mg PO DAILY [facility] Last Admin: 01/05/17 10:35 Dose: Not Given Aspirin (Ecotrin -) 81 mg PO DAILY [facility] Last Admin: 01/05/17 13:17 Dose: 81 mg Atorvastatin Calcium (Lipitor -) 80 mg PO HS [facility] Last Admin: 01/04/17 22:38 Dose: 80 mg Brimonidine Tartrate (Alphagan 0.2% -) 2 drop OU DAILY [facility] Last Admin: 01/05/17 10:34 Dose: Not Given Bupropion HCl (Wellbutrin Xl -) 300 mg PO DAILY [facility] Last Admin: 01/05/17 13:17 Dose: 300 mg Carvedilol (Coreg -) 12.5 mg PO BID [facility] Last Admin: 01/05/17 13:17 Dose: 12.5 mg Clonazepam (Klonopin -) 0.5 mg PO BID [facility] Last Admin: 01/05/17 13:17 Dose: 0.5 mg Clopidogrel Bisulfate (Plavix -) 75 mg PO DAILY [facility] Last Admin: 01/05/17 13:17 Dose: 75 mg Furosemide (Lasix -) 40 mg PO BIDLASIX [facility] Last Admin: 01/05/17 13:14 Dose: Not Given Hydralazine HCl (Apresoline -) 50 mg PO TID [facility] Last Admin: 01/05/17 13:17 Dose: 50 mg Insulin Aspart (Novolog Vial Sliding Scale -) 1 vial SQ ACHS [facility] PRN Reason: Protocol Last Admin: 01/05/17 12:06 Dose: Not Given Insulin Detemir (Levemir Vial) 7 units SQ HS [facility] Last Admin: 01/04/17 22:39 Dose: 7 units Lidocaine/Prilocaine (Emla -) 1 applic TP PRN PRN PRN Reason: PAIN Ondansetron HCl (Zofran -) 4 mg PO DAILY PRN PRN Reason: NAUSEA Pantoprazole Sodium (Protonix -) 40 mg PO DAILY [facility] Last Admin: 01/05/17 13:17 Dose: 40 mg Ranitidine HCl (Zantac -) 150 mg PO DAILY [facility] Last Admin: 01/05/17 13:17 Dose: 150 mg Senna (Senna -) 2 tab PO DAILY [facility] Last Admin: 01/05/17 13:18 Dose: 2 tab Timolol Maleate (Timoptic 0.5%) 2 drop OU DAILY [facility] Last Admin: 01/05/17 10:35 Dose: Not Given Topiramate (Topamax -) 50 mg PO BID [facility] Last Admin: 01/05/17 13:17 Dose: 50 mg - Objective Vital Signs: Vital Signs Temperature 98.2 F 01/05/17 14:08 Pulse Rate 81 01/05/17 14:08 Respiratory Rate 16 01/05/17 14:08 Blood Pressure 163/93 01/05/17 14:08 O2 Sat by Pulse Oximetry (%) 96 01/05/17 09:00 Constitutional: Yes: Calm Eyes: Yes: Conjunctiva Clear HENT: Yes: Atraumatic Neck: Yes: Supple Cardiovascular: Yes: S1, S2 Respiratory: Yes: CTA Bilaterally Gastrointestinal: Yes: Normal Bowel Sounds, Soft, Abdomen, Obese Genitourinary: Yes: WNL Musculoskeletal: Yes: Other (right arm weakness) Edema: Yes Edema: LLE: Trace, RLE: Trace Neurological: Yes: Oriented Psychiatric: Yes: Oriented Labs: CBC, BMP 01/04/17 05:50 01/05/17 14:24 INR, PTT INR 1.05 (0.82-1.09) 01/03/17 07:35 Problem List - Problems (1) CVA (cerebral vascular accident) Code(s): I63.9 - CEREBRAL INFARCTION, UNSPECIFIED (2) Diabetes Code(s): E11.9 - TYPE 2 DIABETES MELLITUS WITHOUT COMPLICATIONS Qualifiers: Diabetes mellitus type: type 2 Diabetes mellitus complication status: with kidney complications Diabetes mellitus complication detail: with chronic kidney disease Diabetes mellitus retirement insulin use: with long term acute care registered nurse use Chronic kidney disease stage: on chronic dialysis Qualified Code(s): E11.22 - Type 2 diabetes mellitus with diabetic chronic kidney disease ; E11.22 - Type 2 diabetes mellitus with diabetic chronic kidney disease; E11.22 - Type 2 diabetes mellitus with diabetic chronic kidney disease; E11.22 - Type 2 diabetes mellitus with diabetic chronic kidney disease; E11.22 - Type 2 diabetes mellitus with diabetic chronic kidney disease; N18.1 - Chronic kidney disease, stage 1; N18.1 - Chronic kidney disease, stage 1; Z79.4 - jail (current) use of insulin; Z79.4 - terminal manager (current) use of insulin; Z79.4 - jail (current) use of insulin; Z79.4 - jail (current) use of insulin (3) ESRD (end stage renal disease) Code(s): N18.6 - END STAGE RENAL DISEASE (4) Hypertension Code(s): I10 - ESSENTIAL (PRIMARY) HYPERTENSION Qualifiers: Hypertension type: essential hypertension Qualified Code(s): I10 - Essential (primary) hypertension; I10 - Essential (primary) hypertension; I10 - Essential (primary) hypertension Assessment/Plan Current Medications Generic Name Dose Route Start Last Admin Trade Name Freq PRN Reason Stop Dose Admin Albuterol Sulfate 2 puff 01/02/17 15:21 Ventolin Hfa Inhaler - IH Q12H PRN ASTHMA Amlodipine Besylate 5 mg 01/04/17 13:45 01/05/17 10:35 Norvasc - PO Not Given DAILY MANDO Aspirin 81 mg 01/03/17 10:00 01/05/17 13:17 Ecotrin - PO 81 mg DAILY [facility]O Administration Atorvastatin Calcium 80 mg 01/02/17 22:00 01/04/17 22:38 Lipitor - PO 80 mg HS MANDO Administration Brimonidine Tartrate 2 drop 01/03/17 10:00 01/05/17 10:34 Alphagan 0.2% - OU Not Given DAILY MANDO Bupropion HCl 300 mg 01/03/17 10:00 01/05/17 13:17 Wellbutrin Xl - PO 300 mg DAILY [facility]O Administration Carvedilol 12.5 mg 01/02/17 22:00 01/05/17 13:17 Coreg - PO 12.5 mg BID MANDO Administration Clonazepam 0.5 mg 01/02/17 22:00 01/05/17 13:17 Klonopin - PO 0.5 mg BID MANDO Administration Clopidogrel Bisulfate 75 mg 01/03/17 10:00 01/05/17 13:17 Plavix - PO 75 mg DAILY [facility]ANDO Administration Furosemide 40 mg 01/03/17 06:00 01/05/17 13:14 Lasix - PO Not Given BIDLASIX MANDO Hydralazine HCl 50 mg 01/03/17 22:00 01/05/17 13:17 Apresoline - PO 50 mg TID [facility]O Administration Insulin Aspart 1 vial 01/02/17 16:30 01/05/17 12:06 Novolog Vial Sliding Scale - SQ Not Given ACHS [facility] Protocol Insulin Detemir 7 units 01/02/17 22:00 01/04/17 22:39 Levemir Vial SQ 7 units HS [facility] Administration Lidocaine/Prilocaine 1 applic 01/02/17 15:21 Emla - TP PRN PRN PAIN Ondansetron HCl 4 mg 01/02/17 15:21 Zofran - PO DAILY PRN NAUSEA Pantoprazole Sodium 40 mg 01/03/17 10:00 01/05/17 13:17 Protonix - PO 40 mg DAILY [facility] Administration Ranitidine HCl 150 mg 01/03/17 10:00 01/05/17 13:17 Zantac - PO 150 mg DAILY [facility] Administration Senna 2 tab 01/03/17 10:00 01/05/17 13:18 Senna - PO 2 tab DAILY [facility] Administration Timolol Maleate 2 drop 01/03/17 10:00 01/05/17 10:35 Timoptic 0.5% OU Not Given DAILY [facility] Topiramate 50 mg 01/02/17 22:00 01/05/17 13:17 Topamax - PO 50 mg BID MANDO Administration Impression 1. ESRD 2. CVA 3. DM 4. HLD 5. HTN 6. anemia 7. anxiety 8. infected right foot ulcer 9. possible seizure Plan - HD today - neuro follow up for possible seizure, pt is awake and alert with new deficit - cont current meds - pt/rehab - will not use heparin on HD - will follow Dr Sharma
[2017-01-05] MEDS: INSULIN DETEMIR 100 UNITS/ML MDV SQ SCH (22:06)
[2017-01-05] MEDS: ATORVASTATIN CA 80 MG TABLET (FP) PO SCH (22:06)
--- NOTE | 2017-01-05 22:42 | PN ---
Progress Note (short form) - Note Progress Note: NEUROLOGY FOLLOW-UP: Events reviewed and discussed with Malia Norton. Patient examined. Dr. Munoz attempted TOBIAS but, during induction Pt exhibited possible partial motor seizure activity aborted by propofol. Patient claims she "doesn't think it was a seizure" because "she remembers." Now feels fine and wants to go home. Calmer on Bupropion and clonazepam. Less anxious. Awaiting venous dilatation of the Right AVF tomorrow by Dr. Ch but concerned she had "a hemorrhage in the left side of her brain. NEURO: Awake, alert, calm. Minimally hesitant speech without stuttering. Essentially blind. No facial symmetry. Minimal Right drift and decreased BILLY's Right hand. IMP: 1. Mild left cerebral dysfunction due to watershed ischemia. 2. Possible partial seizure (Left frontal focus). 3. Known Right carotid occlusion. 4. Severe diabetic neuropathy, retinopathy, nephropathy. SUGGEST: Continue clopidogrel, ASA Continue Bupropian XL 300 mg Maintain BP in 120-140/80 range Observe off AED's Out pt PT and OT Out patient neuro f/u and EEG. OK to proceed with venous dilatation from neuro point of view ( carefully maintain BP during any anesthesia). Thank you very much, Simone Faye MD
[2017-01-06] MEDS: FUROSEMIDE 40 MG TABLET (FP) PO SCH ×2 (06:43→14:37)
[2017-01-06] MEDS: INSULIN SLIDING SCALE (NOVOLOG) 1 VIAL SQ SCH ×4 (06:43→21:54)
[2017-01-06] MEDS: hydrALAZINE HCL 50 MG TABLET (FP) PO SCH ×3 (06:43→21:50)
[2017-01-06 07:27] LABS: MCH 32.4 pg (25.7-33.7); MCHC 32.1 g/dl (32.0-36.0); MEAN PLT VOLUME 9.5 fl (7.5-11.1); PLATELET COUNT 131 K/MM3 (134-434); RDW 14.3 % (11.6-15.6); WHITE BLOOD COUNT 5.3 K/mm3 (4.0-10.0)
[2017-01-06] MEDS ORDERED: INSULIN DETEMIR 100 UNITS/ML MDV SQ ONE (07:46)
[2017-01-06] MEDS ORDERED: INSULIN (NOVOLOG) ASPART 100 UNITS/ML 10ML VIAL ONE ×2 (07:46→21:53)
[2017-01-06 07:51] LABS: ANION GAP 10 (8-16); CALCIUM 8.8 mg/dL (8.5-10.1); CO2 31 mmol/L (21-32); GLUCOSE,RANDOM 167 mg/dL (74-106); MAGNESIUM 2.1 mg/dL (1.8-2.4); PHOSPHOROUS 4.3 mg/dL (2.5-4.9)
--- NOTE | 2017-01-06 08:32 | PN ---
Progress Note, Physician Chief Complaint: repeat TOBIAS could not be done due to seizure TELE: NSR - Current Medication List Current Medications: Active Medications Albuterol Sulfate (Ventolin Hfa Inhaler -) 2 puff IH Q12H PRN PRN Reason: ASTHMA Amlodipine Besylate (Norvasc -) 5 mg PO DAILY [facility] Last Admin: 01/05/17 10:35 Dose: Not Given Aspirin (Ecotrin -) 81 mg PO DAILY [facility] Last Admin: 01/05/17 13:17 Dose: 81 mg Atorvastatin Calcium (Lipitor -) 80 mg PO HS [facility] Last Admin: 01/05/17 22:06 Dose: 80 mg Brimonidine Tartrate (Alphagan 0.2% -) 2 drop OU DAILY [facility] Last Admin: 01/05/17 10:34 Dose: Not Given Bupropion HCl (Wellbutrin Xl -) 300 mg PO DAILY [facility] Last Admin: 01/05/17 13:17 Dose: 300 mg Carvedilol (Coreg -) 12.5 mg PO BID [facility] Last Admin: 01/05/17 22:06 Dose: 12.5 mg Clonazepam (Klonopin -) 0.5 mg PO BID [facility] Last Admin: 01/05/17 22:05 Dose: 0.5 mg Clopidogrel Bisulfate (Plavix -) 75 mg PO DAILY [facility] Last Admin: 01/05/17 13:17 Dose: 75 mg Furosemide (Lasix -) 40 mg PO BIDLASIX [facility] Last Admin: 01/06/17 06:43 Dose: 40 mg Hydralazine HCl (Apresoline -) 50 mg PO TID [facility] Last Admin: 01/06/17 06:43 Dose: 50 mg Insulin Aspart (Novolog Vial Sliding Scale -) 1 vial SQ ACHS [facility] PRN Reason: Protocol Last Admin: 01/06/17 06:43 Dose: Not Given Insulin Detemir (Levemir Vial) 7 units SQ HS [facility] Last Admin: 01/05/17 22:06 Dose: 7 units Lidocaine/Prilocaine (Emla -) 1 applic TP PRN PRN PRN Reason: PAIN Ondansetron HCl (Zofran -) 4 mg PO DAILY PRN PRN Reason: NAUSEA Pantoprazole Sodium (Protonix -) 40 mg PO DAILY [facility] Last Admin: 01/05/17 13:17 Dose: 40 mg Ranitidine HCl (Zantac -) 150 mg PO DAILY [facility] Last Admin: 01/05/17 13:17 Dose: 150 mg Senna (Senna -) 2 tab PO DAILY [facility] Last Admin: 01/05/17 13:18 Dose: 2 tab Timolol Maleate (Timoptic 0.5%) 2 drop OU DAILY [facility] Last Admin: 01/05/17 10:35 Dose: Not Given Topiramate (Topamax -) 50 mg PO BID [facility] Last Admin: 01/05/17 22:05 Dose: 50 mg - Objective Vital Signs: Vital Signs Temperature 98.3 F 01/06/17 05:00 Pulse Rate 81 01/06/17 05:00 Respiratory Rate 18 01/06/17 05:00 Blood Pressure 154/86 01/06/17 05:00 O2 Sat by Pulse Oximetry (%) 96 01/05/17 21:00 Constitutional: Yes: No Distress Cardiovascular: Yes: Regular Rate and Rhythm Respiratory: Yes: CTA Bilaterally Gastrointestinal: Yes: Soft Edema: No Neurological: Yes: Alert Labs: CBC, BMP 01/06/17 05:35 01/06/17 05:35 INR, PTT INR 1.05 (0.82-1.09) 01/03/17 07:35 Laboratory Tests 01/06/17 01/06/17 05:35 05:35 WBC 5.3 Hgb 11.1 Plt Count 131 L Potassium 3.8 D Creatinine Pending Magnesium 2.1 - ....Imaging EKG: Image Reviewed Assessment/Plan IMP: ESRD Multiple b/l strokes w/ work up showing only aortic atheroma (TOBIAS '15) REC: 1. For now cont ASA and Plavix as per Neuro. Warfarin has been considered, but we have not been able to find a source of emboli other than aortic atheroma which is treated with antiplatelet therapy and statins. Awaiting results of hypercoag w/u 2. Avoid hypotension during HD
[2017-01-06] MEDS ORDERED: PT OWN MED DRAWER 7, Y5N ONE ×2 (08:45→21:42)
[2017-01-06] MEDS: ASPIRIN COATED 81 MG TABLET.EC PO SCH (09:00)
[2017-01-06] MEDS: TIMOLOL 0.5% OPHTHALMIC SOL 5 ML BOTTLE OU SCH (09:00)
[2017-01-06] MEDS: clonazePAM 0.5 MG TABLET PO SCH ×2 (09:00→21:49)
[2017-01-06] MEDS: RANITIDINE HCL 150 MG TABLET (FP) PO SCH (09:00)
[2017-01-06] MEDS: CARVEDILOL 12.5 MG TABLET (FP) PO SCH ×2 (09:00→21:49)
[2017-01-06] MEDS: PANTOPRAZOLE 40 MG TABLET (FP) PO SCH (09:00)
[2017-01-06] MEDS: SENNOSIDES 8.6MG TABLET (FP) PO SCH (09:00)
[2017-01-06] MEDS: BRIMONIDINE TARTRATE 0.2% OPHTHALMIC 5 ML BOTTLE OU SCH (09:00)
[2017-01-06] MEDS: CLOPIDOGREL BISULFATE 75 MG TABLET (FP) PO SCH (09:00)
[2017-01-06] MEDS: TOPIRAMATE 25 MG TABLET (FP) PO SCH ×2 (09:00→21:50)
[2017-01-06] MEDS: amLODIPine BESYLATE 5 MG TABLET (FP) PO SCH (09:00)
--- NOTE | 2017-01-06 09:08 | PN ---
Physical Exam: SUBJECTIVE: Patient seen and examined. No acute events overnight. Patient offers no new complaints. She denies headache, dizziness, sob, chest pain, and abdominal pain. OBJECTIVE: Vital Signs Period Temp Pulse Resp BP Sys/[place] Pulse Ox Last 24 Hr 98.1 F-98.6 F 79-105 16-20 130-163/78-103 96 GENERAL: Awake, alert, and fully oriented, in no acute distress. HEAD: Normal with no signs of trauma. EYES: Left eye: 1mm minimally reactive, Right eye: 2mm minimally reactive. Not able to follow fingers with eyes. NOSE, THROAT: oropharynx clear without exudates. Moist mucous membranes. NECK: Normal range of motion, supple without lymphadenopathy, JVD, or masses. LUNGS: Breath sounds equal, clear to auscultation bilaterally. No wheezes, and no crackles. No accessory muscle use. HEART: Regular rate and rhythm, normal S1 and S2 without murmur, rub or gallop. ABDOMEN: obese, soft, nontender, not distended, normoactive bowel sounds, no guarding, no rebound, no masses. No hepatomegaly or splenomegaly. MUSCULOSKELETAL: Normal range of motion at all joints. No bony deformities or tenderness. No CVA tenderness. UPPER EXTREMITIES: Tenderness to right arm at site of AVF. bruit over AVF. No erythema/warmth. 4/5 weakness on RUE and RLE including shoulder shrug, should abduction, bicepts, tricepts, and wrist flexion and extension. 3/5 dorsiflexion and plantar flextion. 5/5 LUE, LLE. 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 4 digits on right foot. 1 cm serosanguinous right foot ulcerated lesion distal to great toe at sole of feet. NEURO: -Left eye blindness. -No facial asymmetry. Laboratory Results - last 24 hr 01/05/17 01/05/17 01/05/17 10:05 12:03 14:24 WBC RBC Hgb Hct MCV MCH MCHC RDW Plt Count MPV Sodium 140 Potassium 4.8 Chloride 100 Carbon Dioxide 28 Anion Gap 12 BUN 56 H D Creatinine 13.0 H* D POC Glucometer 141 Random Glucose 143 H D Calcium 9.4 Phosphorus Magnesium TSH 1.22 D Serum , Qual Negative 01/05/17 01/05/17 01/06/17 17:00 21:59 05:35 WBC 5.3 RBC 3.44 L Hgb 11.1 Hct 34.7 MCV 101.0 H MCH 32.4 MCHC 32.1 RDW 14.3 Plt Count 131 L MPV 9.5 Sodium Potassium Chloride Carbon Dioxide Anion Gap BUN Creatinine POC Glucometer 192 216 Random Glucose Calcium Phosphorus Magnesium TSH Serum , Qual 01/06/17 01/06/17 05:35 06:28 WBC RBC Hgb Hct MCV MCH MCHC RDW Plt Count MPV Sodium 138 Potassium 3.8 D Chloride 97 L Carbon Dioxide 31 Anion Gap 10 BUN 32 H D Creatinine POC Glucometer 158 Random Glucose 167 H Calcium 8.8 Phosphorus 4.3 Magnesium 2.1 TSH Serum , Qual Active Medications Generic Name Dose Route Start Last Admin Trade Name Freq PRN Reason Stop Dose Admin Albuterol Sulfate 2 puff 01/02/17 15:21 Ventolin Hfa Inhaler - IH Q12H PRN ASTHMA Amlodipine Besylate 5 mg 01/04/17 13:45 01/05/17 10:35 Norvasc - PO Not Given DAILY [facility] Aspirin 81 mg 01/03/17 10:00 01/05/17 13:17 Ecotrin - PO 81 mg DAILY [facility] Administration Atorvastatin Calcium 80 mg 01/02/17 22:00 01/05/17 22:06 Lipitor - PO 80 mg HS [facility] Administration Brimonidine Tartrate 2 drop 01/03/17 10:00 01/05/17 10:34 Alphagan 0.2% - OU Not Given DAILY [facility] Bupropion HCl 300 mg 01/03/17 10:00 01/05/17 13:17 Wellbutrin Xl - PO 300 mg DAILY [facility] Administration Carvedilol 12.5 mg 01/02/17 22:00 01/05/17 22:06 Coreg - PO 12.5 mg BID [facility] Administration Clonazepam 0.5 mg 01/02/17 22:00 01/05/17 22:05 Klonopin - PO 0.5 mg BID [facility] Administration Clopidogrel Bisulfate 75 mg 01/03/17 10:00 01/05/17 13:17 Plavix - PO 75 mg DAILY [facility] Administration Furosemide 40 mg 01/03/17 06:00 01/06/17 06:43 Lasix - PO 40 mg BIDLASIX [facility] Administration Hydralazine HCl 50 mg 01/03/17 22:00 01/06/17 06:43 Apresoline - PO 50 mg TID [facility] Administration Insulin Aspart 1 vial 01/02/17 16:30 01/06/17 06:43 Novolog Vial Sliding Scale - SQ Not Given ACHS [facility] Protocol Insulin Detemir 7 units 01/02/17 22:00 01/05/17 22:06 Levemir Vial SQ 7 units HS [facility] Administration Lidocaine/Prilocaine 1 applic 01/02/17 15:21 Emla - TP PRN PRN PAIN Ondansetron HCl 4 mg 01/02/17 15:21 Zofran - PO DAILY PRN NAUSEA Pantoprazole Sodium 40 mg 01/03/17 10:00 01/05/17 13:17 Protonix - PO 40 mg DAILY [facility] Administration Ranitidine HCl 150 mg 01/03/17 10:00 01/05/17 13:17 Zantac - PO 150 mg DAILY [facility] Administration Senna 2 tab 01/03/17 10:00 01/05/17 13:18 Senna - PO 2 tab DAILY [facility] Administration Timolol Maleate 2 drop 01/03/17 10:00 01/05/17 10:35 Timoptic 0.5% OU Not Given DAILY [facility] Topiramate 50 mg 01/02/17 22:00 01/05/17 22:05 Topamax - PO 50 mg BID [facility] Administration ASSESSMENT/PLAN: #Acute CVA -Moderate to large acute/subacute infarct in the left frontal lobe. Other acute/ subacute infarcts are present in the left frontal lobe, anterior cerebral artery territory, watershed region as well as in the left parietal lobe. -Repeat Head CT reviewed: no change -Neuro checks -tele with no a-fib -Echo with no thrombus - US (last admission) with right carotid occlusion. -Continue Wellbutrin XR 300 mg qd as per neuro -TOBIAS cancelled because of seizure-like activity prior to procedure. during initiation of anesthesia she was noted to have seizure like activity with stiffness of R arm and associated rhythmic movements as well as rhythmic movements of eyes. This was immediately after etomidate. She was then given propofol and seizure like activity stopped. Neuro notified. -Observe off AED's, -outpatient neuro follow up -EEG ordered -Heme/onc consulted. F/U hypercoaguable tests -continue home BP meds as per Neuro. -continue Plavix, ASA #ESRD w/ dysfunctional fistula -8.6 creatinine, 32 BUN -US doppler reviewed. -focal venous stenosis at AVF -underwent venogram/venplasty today. Will F/U vascular reccs #DM -ISS -Levemir 7 Units HS #HTN -continue home meds as per neuro -Hydralazine and Carvedilol -continue Hydralazine -Norvasc 10 #Right foot ulcer -bacitracin with dressing -podiatry consulted #DVT: No DVT PPX #FEN: -Not on IV fluids -WNL -NPO for venogram Visit type - Emergency Visit Emergency Visit: Yes ED Registration Date: 01/03/17 Care time: The patient presented to the Emergency Department on the above date and was hospitalized for further evaluation of their emergent condition. - New Patient This patient is new to me today: No - Critical Care Critical Care patient: No
[2017-01-06 09:54] LABS: CREATININE 8.6 mg/dL (0.55-1.02)
[2017-01-06] MEDS ORDERED: BACITRACIN 15 GM TUBE TOPICAL OINTMENT TP SCH (14:15)
--- NOTE | 2017-01-06 14:20 | PN ---
Progress Note, Physician History of Present Illness: Pt seen and examined at bedside. She is awake and alert. She is eager to go home. - Current Medication List Current Medications: Active Medications Albuterol Sulfate (Ventolin Hfa Inhaler -) 2 puff IH Q12H PRN PRN Reason: ASTHMA Amlodipine Besylate (Norvasc -) 5 mg PO DAILY [facility] Last Admin: 01/06/17 09:00 Dose: 5 mg Aspirin (Ecotrin -) 81 mg PO DAILY [facility] Last Admin: 01/06/17 09:00 Dose: 81 mg Atorvastatin Calcium (Lipitor -) 80 mg PO HS [facility] Last Admin: 01/05/17 22:06 Dose: 80 mg Bacitracin (Bacitracin -) 1 applic TP DAILY [facility] Brimonidine Tartrate (Alphagan 0.2% -) 2 drop OU DAILY [facility] Last Admin: 01/06/17 09:00 Dose: Not Given Bupropion HCl (Wellbutrin Xl -) 300 mg PO DAILY [facility] Last Admin: 01/06/17 09:00 Dose: 300 mg Carvedilol (Coreg -) 12.5 mg PO BID [facility] Last Admin: 01/06/17 09:00 Dose: 12.5 mg Clonazepam (Klonopin -) 0.5 mg PO BID [facility] Last Admin: 01/06/17 09:00 Dose: 0.5 mg Clopidogrel Bisulfate (Plavix -) 75 mg PO DAILY [facility] Last Admin: 01/06/17 09:00 Dose: 75 mg Furosemide (Lasix -) 40 mg PO BIDLASIX [facility] Last Admin: 01/06/17 06:43 Dose: 40 mg Hydralazine HCl (Apresoline -) 50 mg PO TID [facility] Last Admin: 01/06/17 06:43 Dose: 50 mg Insulin Aspart (Novolog Vial Sliding Scale -) 1 vial SQ ACHS [facility] PRN Reason: Protocol Last Admin: 01/06/17 11:26 Dose: Not Given Insulin Detemir (Levemir Vial) 7 units SQ HS [facility] Last Admin: 01/05/17 22:06 Dose: 7 units Lidocaine/Prilocaine (Emla -) 1 applic TP PRN PRN PRN Reason: PAIN Ondansetron HCl (Zofran -) 4 mg PO DAILY PRN PRN Reason: NAUSEA Pantoprazole Sodium (Protonix -) 40 mg PO DAILY [facility] Last Admin: 10/13/17 09:00 Dose: 40 mg Ranitidine HCl (Zantac -) 150 mg PO DAILY [facility] Last Admin: 01/06/17 09:00 Dose: 150 mg Senna (Senna -) 2 tab PO DAILY [facility] Last Admin: 01/06/17 09:00 Dose: 2 tab Timolol Maleate (Timoptic 0.5%) 2 drop OU DAILY [facility] Last Admin: 01/06/17 09:00 Dose: Not Given Topiramate (Topamax -) 50 mg PO BID [facility] Last Admin: 01/06/17 09:00 Dose: 50 mg - Objective Vital Signs: Vital Signs Temperature 98.2 F 01/06/17 09:00 Pulse Rate 82 01/06/17 09:00 Respiratory Rate 18 01/06/17 09:00 Blood Pressure 146/86 01/06/17 09:00 O2 Sat by Pulse Oximetry (%) 96 01/06/17 09:00 Constitutional: Yes: Calm Eyes: Yes: Conjunctiva Clear HENT: Yes: Atraumatic Cardiovascular: Yes: S1, S2 Respiratory: Yes: CTA Bilaterally Gastrointestinal: Yes: Soft, Abdomen, Obese Genitourinary: Yes: WNL Edema: No Neurological: Yes: Other (right arm weakness) Psychiatric: Yes: Oriented Labs: CBC, BMP 01/06/17 05:35 01/06/17 05:35 INR, PTT INR 1.05 (0.82-1.09) 01/03/17 07:35 Problem List - Problems (1) CVA (cerebral vascular accident) Code(s): I63.9 - CEREBRAL INFARCTION, UNSPECIFIED (2) Diabetes Code(s): E11.9 - TYPE 2 DIABETES MELLITUS WITHOUT COMPLICATIONS Qualifiers: Diabetes mellitus type: type 2 Diabetes mellitus complication status: with kidney complications Diabetes mellitus complication detail: with chronic kidney disease Diabetes mellitus prison insulin use: with prison use Chronic kidney disease stage: on chronic dialysis Qualified Code(s): E11.22 - Type 2 diabetes mellitus with diabetic chronic kidney disease ; E11.22 - Type 2 diabetes mellitus with diabetic chronic kidney disease; E11.22 - Type 2 diabetes mellitus with diabetic chronic kidney disease; E11.22 - Type 2 diabetes mellitus with diabetic chronic kidney disease; E11.22 - Type 2 diabetes mellitus with diabetic chronic kidney disease; N18.1 - Chronic kidney disease, stage 1; N18.1 - Chronic kidney disease, stage 1; 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; Z79.4 - senior care (current) use of insulin; Z79.4 - senior care (current) use of insulin; 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 (3) ESRD (end stage renal disease) Code(s): N18.6 - END STAGE RENAL DISEASE (4) Hypertension Code(s): I10 - ESSENTIAL (PRIMARY) HYPERTENSION Qualifiers: Hypertension type: essential hypertension Qualified Code(s): I10 - Essential (primary) hypertension; I10 - Essential (primary) hypertension; I10 - Essential (primary) hypertension Assessment/Plan Current Medications Generic Name Dose Route Start Last Admin Trade Name Freq PRN Reason Stop Dose Admin Albuterol Sulfate 2 puff 01/02/17 15:21 Ventolin Hfa Inhaler - IH Q12H PRN ASTHMA Amlodipine Besylate 5 mg 01/04/17 13:45 01/06/17 09:00 Norvasc - PO 5 mg DAILY [facility] Administration Aspirin 81 mg 01/03/17 10:00 01/06/17 09:00 Ecotrin - PO 81 mg DAILY [facility] Administration Atorvastatin Calcium 80 mg 01/02/17 22:00 01/05/17 22:06 Lipitor - PO 80 mg HS [facility] Administration Bacitracin 1 applic 01/06/17 14:15 Bacitracin - TP DAILY [facility] Brimonidine Tartrate 2 drop 01/03/17 10:00 01/06/17 09:00 Alphagan 0.2% - OU Not Given DAILY [facility] Bupropion HCl 300 mg 01/03/17 10:00 01/06/17 09:00 Wellbutrin Xl - PO 300 mg DAILY [facility] Administration Carvedilol 12.5 mg 01/02/17 22:00 01/06/17 09:00 Coreg - PO 12.5 mg BID [facility] Administration Clonazepam 0.5 mg 01/02/17 22:00 01/06/17 09:00 Klonopin - PO 0.5 mg BID [facility] Administration Clopidogrel Bisulfate 75 mg 01/03/17 10:00 01/06/17 09:00 Plavix - PO 75 mg DAILY [facility] Administration Furosemide 40 mg 01/03/17 06:00 01/06/17 06:43 Lasix - PO 40 mg BIDLASIX [facility] Administration Hydralazine HCl 50 mg 01/03/17 22:00 01/06/17 06:43 Apresoline - PO 50 mg TID [facility] Administration Insulin Aspart 1 vial 01/02/17 16:30 01/06/17 11:26 Novolog Vial Sliding Scale - SQ Not Given ACHS [facility] Protocol Insulin Detemir 7 units 01/02/17 22:00 01/05/17 22:06 Levemir Vial SQ 7 units HS [facility] Administration Lidocaine/Prilocaine 1 applic 01/02/17 15:21 Emla - TP PRN PRN PAIN Ondansetron HCl 4 mg 01/02/17 15:21 Zofran - PO DAILY PRN NAUSEA Pantoprazole Sodium 40 mg 01/03/17 10:00 01/06/17 09:00 Protonix - PO 40 mg DAILY [facility] Administration Ranitidine HCl 150 mg 01/03/17 10:00 01/06/17 09:00 Zantac - PO 150 mg DAILY [facility] Administration Senna 2 tab 01/03/17 10:00 01/06/17 09:00 Senna - PO 2 tab DAILY [facility] Administration Timolol Maleate 2 drop 01/03/17 10:00 01/06/17 09:00 Timoptic 0.5% OU Not Given DAILY [facility] Topiramate 50 mg 01/02/17 22:00 01/06/17 09:00 Topamax - PO 50 mg BID [facility] Administration Impression 1. ESRD 2. CVA 3. DM 4. HLD 5. HTN 6. anemia 7. anxiety 8. infected right foot ulcer 9. possible seizure Plan - will arrange for HD in am - hypercoag workup in progress - neuro input appreciated - pt/rehab - will not use heparin on HD - will follow - outpt HD: [facility] 2 k bath, 4 hrs, 116.5 kg, 1000 epogen, hectorol 4 mcg, venofer, [address] Sharma
[2017-01-06] MEDS ORDERED: HEPARIN NA (PORCINE) 5,000 UNITS/ML 1ML VIAL ONE (14:30)
[2017-01-06] MEDS ORDERED: LIDOCAINE HCL 1%, 10 MG/ML (20ML VIAL) ONE (14:30)
--- NOTE | 2017-01-06 14:30 | PN ---
Progress Note (short form) - Note Progress Note: Last Vital Signs Temp Pulse Resp BP Pulse Ox 98.2 F 82 18 146/86 96 01/06/17 09:00 01/06/17 09:00 01/06/17 09:00 01/06/17 09:00 01/06/17 09:00 CBC, BMP 01/06/17 05:35 01/06/17 05:35 Current Medications Generic Name Dose Route Start Last Admin Trade Name Freq PRN Reason Stop Dose Admin Albuterol Sulfate 2 puff 01/02/17 15:21 Ventolin Hfa Inhaler - IH Q12H PRN ASTHMA Amlodipine Besylate 5 mg 01/04/17 13:45 01/06/17 09:00 Norvasc - PO 5 mg DAILY [facility] Administration Aspirin 81 mg 01/03/17 10:00 01/06/17 09:00 Ecotrin - PO 81 mg DAILY [facility] Administration Atorvastatin Calcium 80 mg 01/02/17 22:00 01/05/17 22:06 Lipitor - PO 80 mg HS [facility] Administration Bacitracin 1 applic 01/06/17 14:15 Bacitracin - TP DAILY [facility] Brimonidine Tartrate 2 drop 01/03/17 10:00 01/06/17 09:00 Alphagan 0.2% - OU Not Given DAILY [facility] Bupropion HCl 300 mg 01/03/17 10:00 01/06/17 09:00 Wellbutrin Xl - PO 300 mg DAILY [facility] Administration Carvedilol 12.5 mg 01/02/17 22:00 01/06/17 09:00 Coreg - PO 12.5 mg BID [facility] Administration Clonazepam 0.5 mg 01/02/17 22:00 01/06/17 09:00 Klonopin - PO 0.5 mg BID [facility] Administration Clopidogrel Bisulfate 75 mg 01/03/17 10:00 01/06/17 09:00 Plavix - PO 75 mg DAILY [facility] Administration Furosemide 40 mg 01/03/17 06:00 01/06/17 06:43 Lasix - PO 40 mg BIDLASIX [facility] Administration Hydralazine HCl 50 mg 01/03/17 22:00 01/06/17 06:43 Apresoline - PO 50 mg TID [facility] Administration Insulin Aspart 1 vial 01/02/17 16:30 01/06/17 11:26 Novolog Vial Sliding Scale - SQ Not Given ACHS [facility] Protocol Insulin Detemir 7 units 01/02/17 22:00 01/05/17 22:06 Levemir Vial SQ 7 units HS [facility] Administration Lidocaine/Prilocaine 1 applic 01/02/17 15:21 Emla - TP PRN PRN PAIN Ondansetron HCl 4 mg 01/02/17 15:21 Zofran - PO DAILY PRN NAUSEA Pantoprazole Sodium 40 mg 01/03/17 10:00 01/06/17 09:00 Protonix - PO 40 mg DAILY [facility] Administration Ranitidine HCl 150 mg 01/03/17 10:00 01/06/17 09:00 Zantac - PO 150 mg DAILY [facility] Administration Senna 2 tab 01/03/17 10:00 01/06/17 09:00 Senna - PO 2 tab DAILY [facility] Administration Timolol Maleate 2 drop 01/03/17 10:00 01/06/17 09:00 Timoptic 0.5% OU Not Given DAILY [facility] Topiramate 50 mg 01/02/17 22:00 01/06/17 09:00 Topamax - PO 50 mg BID [facility] Administration Problem List - Problems (1) CVA (cerebral vascular accident) Code(s): I63.9 - CEREBRAL INFARCTION, UNSPECIFIED (2) ESRD (end stage renal disease) Code(s): N18.6 - END STAGE RENAL DISEASE (3) Anemia Code(s): D64.9 - ANEMIA, UNSPECIFIED Qualifiers: Chronic kidney disease stage: on chronic dialysis
[2017-01-06] MEDS ORDERED: MIDAZOLAM HCL 2 MG/2 ML SINGLE DOSE VIAL ONE (14:56)
[2017-01-06] MEDS ORDERED: LIDOCAINE HCL 1%, 10 MG/ML (50 mL VIAL) IJ ONE (15:02)
[2017-01-06] MEDS ORDERED: ONDANSETRON 4 MG/2 ML VIAL IVPUSH PRN ×2 (15:42→16:25)
--- NOTE | 2017-01-06 16:01 | OP ---
Operative Note - Note: Operative Date: 01/06/17 Pre-Operative Diagnosis: right avg stenosis Operation: venogram , venoplasty right avg Post-Operative Diagnosis: Same as Pre-op Surgeon: Nathan Ch Anesthesia: Fractional Estimated Blood Loss (mls): 10 Operative Report Dictated: Yes
[2017-01-06] MEDS ORDERED: ONDANSETRON 4 MG TABLET PO PRN (16:25)
[2017-01-06] MEDS ORDERED: BUDESONIDE/FORMETEROL FUMARATE 80/4.5 mcg INHALER IH ONE (16:25)
[2017-01-06] MEDS ORDERED: ALBUTEROL SO4 18 GM HFA INHALER IH PRN (16:25)
[2017-01-06] MEDS ORDERED: LIDOCAINE 2.5%/PRILOCAINE 2.5% (5 Gram/TUBE) TP PRN (16:25)
--- NOTE | 2017-01-06 16:50 | PN ---
Progress Note (short form) - Note Progress Note: Patient not seen - undergoing vascular procedure. Spoke with neurology - Dr. Faye . Discussion with neuro suggests that current CT is not appreciably different from prior CT suggesting that no significant recent infarct. Right carotid need not be operated upon as it will not appreciably improve clinical status. Question conversion reaction vs. seizure raised by Dr. Faye. For now , in absence of significant change in [employer], ASA and Plavix seem to be treatment advised by neurology. Will await thrombophilia work up to see if alternative therapy would be proposed.
--- NOTE | 2017-01-06 18:39 | PN ---
Teaching Attending Note Name of Resident: Manuel Rushing ATTENDING PHYSICIAN STATEMENT I saw and evaluated the patient. I reviewed the resident's note and discussed the case with the resident. I agree with the resident's findings and plan as documented. SUBJECTIVE: Patient feels better today but continues to have heaviness of of the right arm. had Venogram done today. OBJECTIVE: Vital Signs Temperature 97.9 F 01/06/17 17:57 Pulse Rate 105 H 01/06/17 17:57 Respiratory Rate 20 01/06/17 17:57 Blood Pressure 176/93 01/06/17 17:57 O2 Sat by Pulse Oximetry (%) 100 01/06/17 17:00 CBCD WBC 5.3 K/mm3 (4.0-10.0) 01/06/17 05:35 RBC 3.44 M/mm3 (3.60-5.2) L 01/06/17 05:35 Hgb 11.1 GM/dL (10.7-15.3) 01/06/17 05:35 Hct 34.7 % (32.4-45.2) 01/06/17 05:35 MCV 101.0 fl (80-96) H 01/06/17 05:35 MCHC 32.1 g/dl (32.0-36.0) 01/06/17 05:35 RDW 14.3 % (11.6-15.6) 01/06/17 05:35 Plt Count 131 K/MM3 (134-434) L 01/06/17 05:35 MPV 9.5 fl (7.5-11.1) 01/06/17 05:35 CMP Sodium 138 mmol/L (136-145) 01/06/17 05:35 Potassium 3.8 mmol/L (3.5-5.1) D 01/06/17 05:35 Chloride 97 mmol/L (98-107) L 01/06/17 05:35 Carbon Dioxide 31 mmol/L (21-32) 01/06/17 05:35 Anion Gap 10 (8-16) 01/06/17 05:35 BUN 32 mg/dL (7-18) H D 01/06/17 05:35 Creatinine 8.6 mg/dL (0.55-1.02) H* D 01/06/17 05:35 Creat Clearance w eGFR 2.82 (>60) 01/03/17 07:35 Random Glucose 167 mg/dL (74-106) H 01/06/17 05:35 Calcium 8.8 mg/dL (8.5-10.1) 01/06/17 05:35 Total Bilirubin 0.4 mg/dL (0.2-1.0) 01/03/17 07:35 AST 15 U/L (15-37) 01/03/17 07:35 ALT 27 U/L (12-78) D 01/03/17 07:35 Alkaline Phosphatase 51 U/L (45-117) 01/03/17 07:35 Total Protein 6.8 g/dl (6.4-8.2) 01/03/17 07:35 Albumin 3.4 g/dl (3.4-5.0) 01/03/17 07:35 Current Medications Generic Name Dose Route Start Last Admin Trade Name Freq PRN Reason Stop Dose Admin Albuterol Sulfate 2 puff 01/06/17 16:25 Ventolin Hfa Inhaler - IH Q12H PRN ASTHMA Amlodipine Besylate 5 mg 01/07/17 10:00 Norvasc - PO DAILY [facility] Aspirin 81 mg 01/07/17 10:00 Ecotrin - PO DAILY [facility] Atorvastatin Calcium 80 mg 01/06/17 22:00 Lipitor - PO HS [facility] Bacitracin 1 applic 01/07/17 10:00 Bacitracin - TP DAILY [facility] Brimonidine Tartrate 2 drop 01/07/17 10:00 Alphagan 0.2% - OU DAILY [facility] Budesonide/Formoterol Fumarate 2 puff 01/06/17 16:25 Symbicort 80/4.5mcg - IH 01/06/17 16:26 ONCE ONE Bupropion HCl 300 mg 01/07/17 10:00 Wellbutrin Xl - PO DAILY [facility] Carvedilol 12.5 mg 01/06/17 22:00 Coreg - PO BID [facility] Clonazepam 0.5 mg 01/06/17 22:00 Klonopin - PO BID [facility] Clopidogrel Bisulfate 75 mg 01/07/17 10:00 Plavix - PO DAILY [facility] Furosemide 40 mg 01/07/17 06:00 Lasix - PO BIDLASIX [facility] Hydralazine HCl 50 mg 01/06/17 22:00 Apresoline - PO TID [facility] Insulin Aspart 1 vial 01/06/17 16:30 01/06/17 17:36 Novolog Vial Sliding Scale - SQ Not Given ACHS [facility] Protocol Insulin Detemir 7 units 01/06/17 22:00 Levemir Vial SQ [facility] Lidocaine/Prilocaine 1 applic 01/06/17 16:25 Emla - TP PRN PRN PAIN Ondansetron HCl 4 mg 01/06/17 16:25 Zofran Injection IVPUSH 01/06/17 21:43 Q6H PRN NAUSEA AND/OR VOMITING Ondansetron HCl 4 mg 01/06/17 16:25 Zofran - PO DAILY PRN NAUSEA Pantoprazole Sodium 40 mg 01/07/17 10:00 Protonix - PO DAILY [facility] Ranitidine HCl 150 mg 01/07/17 10:00 Zantac - PO DAILY [facility] Senna 2 tab 01/07/17 10:00 Senna - PO DAILY [facility] Timolol Maleate 2 drop 01/07/17 10:00 Timoptic 0.5% OU DAILY [facility] Topiramate 50 mg 01/06/17 22:00 Topamax - PO BID [facility] Home Medications Medication Instructions Recorded Albuterol Sulfate Inhaler - 2 inh PO BID PRN 08/03/16 [Ventolin HFA Inhaler -] Atorvastatin Ca [Lipitor] 80 mg PO HS 08/03/16 Benzonatate 100 mg PO TID PRN 08/03/16 Bisacodyl [Laxative] 10 mg PO BID PRN 08/03/16 Brimonidine Tartrate/Timolol 2 drop OU DAILY 08/03/16 [Combigan 0.2%-0.5% Eye Drops] Carvedilol [Coreg -] 12.5 mg PO BID 08/03/16 Clonazepam [Klonopin -] 0.5 mg PO BID 08/03/16 Famotidine [Pepcid -] 20 mg PO DAILY 08/03/16 Furosemide [Lasix] 40 mg PO BID 08/03/16 Insulin Aspart [Novolog] 10 unit SQ AC 08/03/16 Lidocaine/Prilocaine Cream 1 applic TP PRN PRN 08/03/16 [Lidocaine-Prilocaine Cream -] Mometasone/Formoterol [Dulera 100 2 inh IH BID PRN 08/03/16 Mcg/5 Mcg Inhaler] Ondansetron [Zofran -] 4 mg PO DAILY PRN 08/03/16 Sennosides [Senna] 2 tab PO DAILY 08/03/16 Hydralazine HCl [Apresoline -] 50 mg PO BID tablet 08/06/16 Clopidogrel Bisulfate [Plavix -] 75 mg PO DAILY 08/26/16 Aspirin Coated [Ecotrin -] 325 mg PO DAILY 11/07/16 Cetirizine HCl [Zyrtec -] 5 mg PO DAILY 11/15/16 Bupropion HCl [Wellbutrin Xl -] 300 mg PO DAILY #30 tab.sr.24h 12/22/16 Topiramate [Topamax] 50 mg PO BID 01/02/17 PE: Extremities: Right Av graft, with right upper extremity weakness 4/5 . rest of PE per resident's note. MRa/MRI of brain reviewed: ant.circulation there is no flow in the BHAVIN consistant with either ischemia vs obstruction. CT of the head: acute CVA with petechial hemorrhage. ASSESSMENT AND PLAN: 51 y/o female presented with acute on chronic CVA, with hx of HTN, ESRD, On HD MWF, TIA, IDDM, R hemicranial migraine , R big toe Fx , who presented with RUE heaviness and pain. She was found to have acute L upper frontal stroke. # Acute vs subacute Left frontal stroke with petecheal hemorrhage . Discussed with Dr.Rosen sweeneying the patient's status and anticoagulation. As per who discussed with the neurologist and as per discussion that possible patient is having conversion reaction vs. seizure raised by Dr. Faye. For now , in absence of significant change in [place], ASA and Plavix seem to be treatment advised by neurology. as per neuro suggestion will await thrombophilia work up to see if alternative therapy would be proposed once all the work up gets resulted. cont ASA ,plavix and Lipitor 80mg will continue . Hydralazine was increased to 3x per day . will add Norvasc 5mg today for better BP control and better vasospasm control. Hypercoagulable w/u is pending :Hematology consult appreciated protein C/S/antithrombin. Prothrombin gene mutation/Jack2/PNH/V leiden mutation. Anticardiolipin/antiphospholipid ABs. Upon discharge patient will follow up with hematology as an outpatient since the w/u might take 2 weeks to be resulted. # ESRD on HD( 3x per week) , nephro on the case . patient went for venogram # DM Uncontrolled continue SSI with coverage and Levemir 7 units at HS # HTN Uncontrolled continue Hydralazine, cont coreg , Norvasc to her regimen, was ok with cardiology. # Ocular lesions seen on CT scan , out pt follow up with ophthalmo. DVT PX: SCDs only, no heparin sq in setting of concern of hemorrhagic conversion of stroke. EEG ordered needs to follow up with the result.
[2017-01-06] MEDS: INSULIN DETEMIR 100 UNITS/ML MDV SQ SCH (21:51)
[2017-01-06] MEDS: ATORVASTATIN CA 80 MG TABLET (FP) PO SCH (21:54)
[2017-01-07] MEDS: INSULIN SLIDING SCALE (NOVOLOG) 1 VIAL SQ SCH ×4 (06:03→21:06)
[2017-01-07] MEDS: FUROSEMIDE 40 MG TABLET (FP) PO SCH ×2 (06:09→14:14)
[2017-01-07] MEDS: hydrALAZINE HCL 50 MG TABLET (FP) PO SCH ×3 (06:10→21:05)
--- NOTE | 2017-01-07 08:22 | PN ---
Progress Note (short form) - Note Progress Note: Anesthesia Post op Pt seen and examined S:alert and awake O: Vital Signs Temperature 98.7 F 01/07/17 05:00 Pulse Rate 84 01/07/17 05:00 Respiratory Rate 16 01/07/17 05:00 Blood Pressure 151/85 01/07/17 05:00 O2 Sat by Pulse Oximetry (%) 99 01/06/17 21:00 CBC, BMP 01/06/17 05:35 01/06/17 05:35 A/P: CVA (cerebral vascular accident) (Acute) Diabetes (Chronic) ESRD (end stage renal disease) (Chronic) Hypertension (Chronic) Paresthesias in left hand (Chronic) s/p AVG venogram/veno plasty Doing well post op Continue current care Javed Newberry MD
--- NOTE | 2017-01-07 08:53 | PN ---
Progress Note, Physician Chief Complaint: no distress TELE: NSR Heme input noted - Current Medication List Current Medications: Active Medications Albuterol Sulfate (Ventolin Hfa Inhaler -) 2 puff IH Q12H PRN PRN Reason: ASTHMA Amlodipine Besylate (Norvasc -) 5 mg PO DAILY [facility] Aspirin (Ecotrin -) 81 mg PO DAILY [facility] Atorvastatin Calcium (Lipitor -) 80 mg PO HS [facility] Last Admin: 01/06/17 21:54 Dose: 80 mg Bacitracin (Bacitracin -) 1 applic TP DAILY [facility] Brimonidine Tartrate (Alphagan 0.2% -) 2 drop OU DAILY [facility] Budesonide/Formoterol Fumarate (Symbicort 80/4.5mcg -) 2 puff IH ONCE ONE Stop: 01/06/17 16:26 Bupropion HCl (Wellbutrin Xl -) 300 mg PO DAILY [facility] Carvedilol (Coreg -) 12.5 mg PO BID [facility] Last Admin: 01/06/17 21:49 Dose: 12.5 mg Clonazepam (Klonopin -) 0.5 mg PO BID [facility] Last Admin: 01/06/17 21:49 Dose: 0.5 mg Clopidogrel Bisulfate (Plavix -) 75 mg PO DAILY [facility] Furosemide (Lasix -) 40 mg PO BIDLASIX [facility] Last Admin: 01/07/17 06:09 Dose: Not Given Hydralazine HCl (Apresoline -) 50 mg PO TID [facility] Last Admin: 01/07/17 06:10 Dose: 50 mg Insulin Aspart (Novolog Vial Sliding Scale -) 1 vial SQ ACHS [facility] PRN Reason: Protocol Last Admin: 01/07/17 06:03 Dose: Not Given Insulin Detemir (Levemir Vial) 7 units SQ HS [facility] Last Admin: 01/06/17 21:51 Dose: 7 units Lidocaine/Prilocaine (Emla -) 1 applic TP PRN PRN PRN Reason: PAIN Ondansetron HCl (Zofran -) 4 mg PO DAILY PRN PRN Reason: NAUSEA Pantoprazole Sodium (Protonix -) 40 mg PO DAILY [facility] Ranitidine HCl (Zantac -) 150 mg PO DAILY [facility] Senna (Senna -) 2 tab PO DAILY [facility] Timolol Maleate (Timoptic 0.5%) 2 drop OU DAILY [facility] Topiramate (Topamax -) 50 mg PO BID [facility] Last Admin: 01/06/17 21:50 Dose: 50 mg - Objective Vital Signs: Vital Signs Temperature 98.7 F 01/07/17 05:00 Pulse Rate 84 01/07/17 05:00 Respiratory Rate 16 01/07/17 05:00 Blood Pressure 151/85 01/07/17 05:00 O2 Sat by Pulse Oximetry (%) 99 01/06/17 21:00 Constitutional: Yes: No Distress Cardiovascular: Yes: Regular Rate and Rhythm Respiratory: Yes: CTA Bilaterally Gastrointestinal: Yes: Soft Edema: No Neurological: Yes: Alert Labs: CBC, BMP 01/06/17 05:35 01/06/17 05:35 INR, PTT INR 1.05 (0.82-1.09) 01/03/17 07:35 - ....Imaging EKG: Image Reviewed Assessment/Plan IMP: ESRD Multiple b/l strokes w/ work up showing only aortic atheroma (TOBIAS '15) REC: 1. For now cont ASA and Plavix as per Neuro. Warfarin has been considered, but we have not been able to find a source of emboli other than aortic atheroma which is treated with antiplatelet therapy and statins. Awaiting results of hypercoag w/u. Heme input noted. 2. Avoid hypotension during HD
[2017-01-07] MEDS ORDERED: amLODIPine BESYLATE 5 MG TABLET (FP) PO SCH (10:00)
[2017-01-07 10:52] LABS: BASOPHIL 0.4 % (0-2.0); EOSINOPHIL 5.5 % (0-4.5); MCH 32.3 pg (25.7-33.7); MEAN PLT VOLUME 9.3 fl (7.5-11.1); NEUTROPHILS 68.6 % (42.8-82.8); PLATELET COUNT 125 K/MM3 (134-434); RDW 14.3 % (11.6-15.6); WHITE BLOOD COUNT 6.5 K/mm3 (4.0-10.0)
[2017-01-07] MEDS ORDERED: PT OWN MED DRAWER 7, Y5N ONE ×2 (11:11→21:03)
[2017-01-07] MEDS: BRIMONIDINE TARTRATE 0.2% OPHTHALMIC 5 ML BOTTLE OU SCH (11:13)
[2017-01-07] MEDS: TIMOLOL 0.5% OPHTHALMIC SOL 5 ML BOTTLE OU SCH (11:13)
[2017-01-07] MEDS: SENNOSIDES 8.6MG TABLET (FP) PO SCH (11:19)
[2017-01-07] MEDS: CARVEDILOL 12.5 MG TABLET (FP) PO SCH ×2 (11:20→21:05)
[2017-01-07] MEDS: clonazePAM 0.5 MG TABLET PO SCH ×2 (11:20→21:05)
[2017-01-07] MEDS: CLOPIDOGREL BISULFATE 75 MG TABLET (FP) PO SCH (11:20)
[2017-01-07] MEDS: TOPIRAMATE 25 MG TABLET (FP) PO SCH ×2 (11:20→21:05)
[2017-01-07] MEDS: RANITIDINE HCL 150 MG TABLET (FP) PO SCH (11:21)
[2017-01-07] MEDS: ASPIRIN COATED 81 MG TABLET.EC PO SCH (11:21)
[2017-01-07] MEDS: PANTOPRAZOLE 40 MG TABLET (FP) PO SCH (11:21)
[2017-01-07 11:31] LABS: ANION GAP 10 (8-16); CALCIUM 9.2 mg/dL (8.5-10.1); CO2 32 mmol/L (21-32); GLUCOSE,RANDOM 187 mg/dL (74-106)
[2017-01-07 11:54] LABS: CREATININE 11.2 mg/dL (0.55-1.02)
--- NOTE | 2017-01-07 12:43 | PN ---
HC Provider Note (SOAP) Subjective: patient is doing well she laying flat in bed. she is complaining of weakness that has not changed from previous day. she stated that she has never been worked out why she has been having strokes before. Objective: aaox3 s1 and s2 RRR abdomen soft non-tender +3 strength on the right hand, patient is able to move the legs with strength 3/ 5 bilateral Lungs CTA with good air entry no rales or crackle Assesment: this is a 51 y/o female patient that was admitted for weakness was found to have a new stroke this is her 7th CVA CVA - patient requires further evaluation for the cause of her stroke - patient might benefit from TOBIAS to r/o thrombus - CHADVASC is 5 - however there is no documentation of the patient having atrial fibrillation - patient might be a candidate for an event recorder or a loop recorder since there is no explanation of the strokes - c/w neurology recommendation with aspirin and clopidogrel - c/w cardiac recommendation HTN: - better blood pressure control - d/c hydralazine, increase the carvidilol to 25mg daily - increase amlodipine to 10mg ESRD - c/w dialysis per renal recommendation - Renal diet
--- NOTE | 2017-01-07 12:53 | CONSULT ---
Consult Consult Specialty:: Podiatry - History of Present Illness Chief Complaint: Ulceration plantar right hallux History of Present Illness: Right plantar hallux ulceration and has present for many months. [facility] and also by me with antibiosis, padding, debridement. The wound has failed to heal despite months of these conservative measures. Surgery has been considered but it is considered contraindicated because of the patient's numerous medical pathologies. 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 Cardio/Vascular: Yes: HTN, Hyperlipdemia, Other (Peripheral vascular disease) Pulmonary: Yes: Asthma, Sleep Apnea Gastrointestinal: Yes: Constipation Renal/: Yes: Renal Failure, Hemodialysis ...LMP: 10/30/16 Rheumatology: Yes: Other (See HPI) Endocrine: Yes: Diabetes Mellitus - Past Surgical History Past Surgical History: Yes: Amputation, AV Fistula/Graft, - Alcohol/Substance Use Hx Alcohol Use: No - Smoking History Smoking history: Never smoked Have you smoked in the past 12 months: No Aproximately how many cigarettes per day: 0 - Social History ADL: Independent History of Recent Travel: No Home Medications - Allergies Allergies/Adverse Reactions: Allergies Allergy/AdvReac Type Severity Reaction Status Date / Time amoxicillin [Amoxicillin] Allergy Severe Itching Verified 01/02/17 10:26 hydrocodone bitartrate Allergy Severe Hives,ITCHI Verified 01/02/17 10:26 [From Vicodin] NG morphine Allergy Severe Itching Verified 01/02/17 10:26 neomycin [Neomycin] Allergy Severe Swelling Verified 01/02/17 10:26 oxycodone HCl [From Percocet] Allergy Severe Itching,HIV Verified 01/02/17 10:26 ES rofecoxib [From Vioxx] Allergy Severe Hives Verified 01/02/17 10:26 Sulfa (Sulfonamide Allergy Severe sclera Verified 01/02/17 10:26 Antibiotics) reddened,ITCHING tramadol Allergy Severe Vomiting Verified 01/02/17 10:26 tomato Allergy Verified 01/02/17 10:26 grapefruit [Grapefruit] AdvReac Severe CAN'T TAKE Verified 01/02/17 10:26 BECAUSE OF MEDICATIONS vancomycin AdvReac Mild red man Verified 01/02/17 10:26 syndrome Heparin Analogues AdvReac Unknown Verified 01/02/17 10:26 [Heparin Agents] flu shot Allergy Severe GETS FLU Uncoded 01/02/17 10:26 SYMPTOMS grape juice AdvReac Severe Uncoded 01/02/17 10:26 - Home Medications Home Medications: Ambulatory Orders Albuterol Sulfate Inhaler - [Ventolin HFA Inhaler -] 2 inh PO BID PRN 08/03/16 Atorvastatin Ca [Lipitor] 80 mg PO HS 08/03/16 Benzonatate 100 mg PO TID PRN 08/03/16 Bisacodyl [Laxative] 10 mg PO BID PRN 08/03/16 Brimonidine Tartrate/Timolol [Combigan 0.2%-0.5% Eye Drops] 2 drop OU DAILY 01/10 Carvedilol [Coreg -] 12.5 mg PO BID 08/03/16 Clonazepam [Klonopin -] 0.5 mg PO BID 08/03/16 Famotidine [Pepcid -] 20 mg PO DAILY 08/03/16 Furosemide [Lasix] 40 mg PO BID 08/03/16 Insulin Aspart [Novolog] 10 unit SQ AC 08/03/16 Lidocaine/Prilocaine Cream [Lidocaine-Prilocaine Cream -] 1 applic TP PRN PRN Mometasone/Formoterol [Dulera 100 Mcg/5 Mcg Inhaler] 2 inh IH BID PRN 08/03/16 Ondansetron [Zofran -] 4 mg PO DAILY PRN 08/03/16 Sennosides [Senna] 2 tab PO DAILY 08/03/16 Hydralazine HCl [Apresoline -] 50 mg PO BID tablet 08/06/16 Clopidogrel Bisulfate [Plavix -] 75 mg PO DAILY 08/26/16 Aspirin Coated [Ecotrin -] 325 mg PO DAILY 11/07/16 Cetirizine HCl [Zyrtec -] 5 mg PO DAILY 11/15/16 Bupropion HCl [Wellbutrin Xl -] 300 mg PO DAILY #30 tab.sr.24h 12/22/16 Topiramate [Topamax] 50 mg PO BID 01/02/17 Physical Exam Vital Signs: Vital Signs Temperature 98.7 F 01/07/17 05:00 Pulse Rate 84 01/07/17 05:00 Respiratory Rate 16 01/07/17 05:00 Blood Pressure 151/85 01/07/17 05:00 O2 Sat by Pulse Oximetry (%) 99 01/06/17 21:00 Wound/Incision: Yes: Other (Right plantar hallux wound measures 8mm diameter, 2mm deep, has chronic inflammatory tissue base. Surrounding tissues have no sign of erytherm, edema, or temp increase. No drainage expressed from the wound.) Labs: CBC, BMP 01/07/17 10:20 01/07/17 10:20 Assessment/Plan Assessment Chronic ulceration right plantar hallux with underlying chronic osteomyelits but no acute infection. Plan Betadine sterile dressing should be applied daily. Ambulation should be permitted as tolerated. Supportive measures for the wound are appropriate treatment for the wound until patient's medical status can be stabilized.
--- NOTE | 2017-01-07 13:45 | PN ---
Progress Note, Physician History of Present Illness: Pt seen and examined at bedside. She is awake and alert. She is currently getting HD. - Current Medication List Current Medications: Active Medications Albuterol Sulfate (Ventolin Hfa Inhaler -) 2 puff IH Q12H PRN PRN Reason: ASTHMA Amlodipine Besylate (Norvasc -) 5 mg PO DAILY [facility] Last Admin: 01/07/17 11:21 Dose: Not Given Aspirin (Ecotrin -) 81 mg PO DAILY [facility] Last Admin: 01/07/17 11:21 Dose: Not Given Atorvastatin Calcium (Lipitor -) 80 mg PO HS [facility] Last Admin: 01/06/17 21:54 Dose: 80 mg Bacitracin (Bacitracin -) 1 applic TP DAILY [facility] Brimonidine Tartrate (Alphagan 0.2% -) 2 drop OU DAILY [facility] Last Admin: 01/07/17 11:13 Dose: Not Given Budesonide/Formoterol Fumarate (Symbicort 80/4.5mcg -) 2 puff IH ONCE ONE Stop: 01/06/17 16:26 Bupropion HCl (Wellbutrin Xl -) 300 mg PO DAILY [facility] Last Admin: 01/07/17 11:21 Dose: 300 mg Carvedilol (Coreg -) 12.5 mg PO BID [facility] Last Admin: 01/07/17 11:20 Dose: 12.5 mg Clonazepam (Klonopin -) 0.5 mg PO BID [facility] Last Admin: 01/07/17 11:20 Dose: 0.5 mg Clopidogrel Bisulfate (Plavix -) 75 mg PO DAILY [facility] Last Admin: 01/07/17 11:20 Dose: 75 mg Furosemide (Lasix -) 40 mg PO BIDLASIX [facility] Last Admin: 01/07/17 06:09 Dose: Not Given Hydralazine HCl (Apresoline -) 50 mg PO TID [facility] Last Admin: 01/07/17 06:10 Dose: 50 mg Insulin Aspart (Novolog Vial Sliding Scale -) 1 vial SQ ACHS [facility] PRN Reason: Protocol Last Admin: 01/07/17 11:51 Dose: 2 units Insulin Detemir (Levemir Vial) 7 units SQ HS [facility] Last Admin: 01/06/17 21:51 Dose: 7 units Lidocaine/Prilocaine (Emla -) 1 applic TP PRN PRN PRN Reason: PAIN Ondansetron HCl (Zofran -) 4 mg PO DAILY PRN PRN Reason: NAUSEA Pantoprazole Sodium (Protonix -) 40 mg PO DAILY [facility] Last Admin: 01/07/17 11:21 Dose: 40 mg Ranitidine HCl (Zantac -) 150 mg PO DAILY [facility] Last Admin: 01/07/17 11:21 Dose: 150 mg Senna (Senna -) 2 tab PO DAILY [facility] Last Admin: 01/07/17 11:19 Dose: 2 tab Timolol Maleate (Timoptic 0.5%) 2 drop OU DAILY [facility] Last Admin: 01/07/17 11:13 Dose: Not Given Topiramate (Topamax -) 50 mg PO BID [facility] Last Admin: 01/07/17 11:20 Dose: 50 mg - Objective Vital Signs: Vital Signs Temperature 98.7 F 01/07/17 05:00 Pulse Rate 84 01/07/17 05:00 Respiratory Rate 16 01/07/17 05:00 Blood Pressure 151/85 01/07/17 05:00 O2 Sat by Pulse Oximetry (%) 99 01/06/17 21:00 Constitutional: Yes: Calm Eyes: Yes: Conjunctiva Clear HENT: Yes: Atraumatic Neck: Yes: Supple Cardiovascular: Yes: S1, S2 Respiratory: Yes: CTA Bilaterally Genitourinary: Yes: WNL Musculoskeletal: Yes: Muscle Weakness Edema: Yes Edema: LLE: Trace, RLE: Trace Neurological: Yes: Oriented, Other (rigth arm weakness) Psychiatric: Yes: Oriented Labs: CBC, BMP 01/07/17 10:20 01/07/17 10:20 INR, PTT INR 1.05 (0.82-1.09) 01/03/17 07:35 Problem List - Problems (1) CVA (cerebral vascular accident) Code(s): I63.9 - CEREBRAL INFARCTION, UNSPECIFIED (2) Diabetes Code(s): E11.9 - TYPE 2 DIABETES MELLITUS WITHOUT COMPLICATIONS Qualifiers: Diabetes mellitus type: type 2 Diabetes mellitus complication status: with kidney complications Diabetes mellitus complication detail: with chronic kidney disease Diabetes mellitus residential insulin use: with side framer use Chronic kidney disease stage: on chronic dialysis Qualified Code(s): E11.22 - Type 2 diabetes mellitus with diabetic chronic kidney disease ; E11.22 - Type 2 diabetes mellitus with diabetic chronic kidney disease; E11.22 - Type 2 diabetes mellitus with diabetic chronic kidney disease; E11.22 - Type 2 diabetes mellitus with diabetic chronic kidney disease; E11.22 - Type 2 diabetes mellitus with diabetic chronic kidney disease; N18.1 - Chronic kidney disease, stage 1; N18.1 - Chronic kidney disease, stage 1; Z79.4 - hub cutter apprentice (current) use of insulin; Z79.4 - snf (current) use of insulin; Z79.4 - hub cutter apprentice (current) use of insulin; Z79.4 - snf (current) use of insulin (3) ESRD (end stage renal disease) Code(s): N18.6 - END STAGE RENAL DISEASE (4) Hypertension Code(s): I10 - ESSENTIAL (PRIMARY) HYPERTENSION Qualifiers: Hypertension type: essential hypertension Qualified Code(s): I10 - Essential (primary) hypertension; I10 - Essential (primary) hypertension; I10 - Essential (primary) hypertension Assessment/Plan Current Medications Generic Name Dose Route Start Last Admin Trade Name Freq PRN Reason Stop Dose Admin Albuterol Sulfate 2 puff 01/06/17 16:25 Ventolin Hfa Inhaler - IH Q12H PRN ASTHMA Amlodipine Besylate 5 mg 01/07/17 10:00 01/07/17 11:21 Norvasc - PO Not Given DAILY [facility] Aspirin 81 mg 01/07/17 10:00 01/07/17 11:21 Ecotrin - PO Not Given DAILY [facility] Atorvastatin Calcium 80 mg 01/06/17 22:00 01/06/17 21:54 Lipitor - PO 80 mg HS [facility] Administration Bacitracin 1 applic 01/07/17 10:00 Bacitracin - TP DAILY [facility] Brimonidine Tartrate 2 drop 01/07/17 10:00 01/07/17 11:13 Alphagan 0.2% - OU Not Given DAILY [facility] Budesonide/Formoterol Fumarate 2 puff 01/06/17 16:25 Symbicort 80/4.5mcg - IH 01/06/17 16:26 ONCE ONE Bupropion HCl 300 mg 01/07/17 10:00 01/07/17 11:21 Wellbutrin Xl - PO 300 mg DAILY [facility] Administration Carvedilol 12.5 mg 01/06/17 22:00 01/07/17 11:20 Coreg - PO 12.5 mg BID [facility] Administration Clonazepam 0.5 mg 01/06/17 22:00 01/07/17 11:20 Klonopin - PO 0.5 mg BID [facility] Administration Clopidogrel Bisulfate 75 mg 01/07/17 10:00 01/07/17 11:20 Plavix - PO 75 mg DAILY [facility] Administration Furosemide 40 mg 01/07/17 06:00 01/07/17 06:09 Lasix - PO Not Given BIDLASIX [facility] Hydralazine HCl 50 mg 01/06/17 22:00 01/07/17 06:10 Apresoline - PO 50 mg TID [facility] Administration Insulin Aspart 1 vial 01/06/17 16:30 01/07/17 11:51 Novolog Vial Sliding Scale - SQ 2 units ACHS [facility] Administration Protocol Insulin Detemir 7 units 01/06/17 22:00 01/06/17 21:51 Levemir Vial SQ 7 units HS [facility] Administration Lidocaine/Prilocaine 1 applic 01/06/17 16:25 Emla - TP PRN PRN PAIN Ondansetron HCl 4 mg 01/06/17 16:25 Zofran - PO DAILY PRN NAUSEA Pantoprazole Sodium 40 mg 01/07/17 10:00 01/07/17 11:21 Protonix - PO 40 mg DAILY [facility] Administration Ranitidine HCl 150 mg 01/07/17 10:00 01/07/17 11:21 Zantac - PO 150 mg DAILY [facility] Administration Senna 2 tab 01/07/17 10:00 01/07/17 11:19 Senna - PO 2 tab DAILY [facility] Administration Timolol Maleate 2 drop 01/07/17 10:00 01/07/17 11:13 Timoptic 0.5% OU Not Given DAILY [facility] Topiramate 50 mg 01/06/17 22:00 01/07/17 11:20 Topamax - PO 50 mg BID [facility] Administration Impression 1. ESRD 2. CVA 3. DM 4. HLD 5. HTN 6. anemia 7. anxiety 8. infected right foot ulcer 9. possible seizure Plan - HD today - heme follow up - pt is a MWF schedule, she will get HD on Monday - will not use heparin on HD - will follow - outpt HD: [facility] 2 k bath, 4 hrs, 116.5 kg, 1000 epogen, hectorol 4 mcg, venofer, [address] Sharma
[2017-01-07 14:12] LABS: LAC INTERPRETATION Comment: (.); PROTEIN C ACTIVITY 105 % (73-180)
[2017-01-07] MEDS: BACITRACIN 15 GM TUBE TOPICAL OINTMENT TP SCH (14:14)
[2017-01-07] MEDS ORDERED: INSULIN (NOVOLOG) ASPART 100 UNITS/ML 10ML VIAL ONE (21:03)
[2017-01-07] MEDS: ATORVASTATIN CA 80 MG TABLET (FP) PO SCH (21:05)
[2017-01-07] MEDS: INSULIN DETEMIR 100 UNITS/ML MDV SQ SCH (21:05)
[2017-01-08] MEDS: hydrALAZINE HCL 50 MG TABLET (FP) PO SCH (05:35)
[2017-01-08] MEDS: FUROSEMIDE 40 MG TABLET (FP) PO SCH ×2 (05:35→15:55)
[2017-01-08] MEDS: INSULIN SLIDING SCALE (NOVOLOG) 1 VIAL SQ SCH ×4 (07:28→21:48)
--- NOTE | 2017-01-08 08:59 | PN ---
Progress Note, Physician Chief Complaint: no distress TELE: NSR - Current Medication List Current Medications: Active Medications Albuterol Sulfate (Ventolin Hfa Inhaler -) 2 puff IH Q12H PRN PRN Reason: ASTHMA Amlodipine Besylate (Norvasc -) 10 mg PO DAILY [facility] Aspirin (Ecotrin -) 81 mg PO DAILY [facility] Last Admin: 01/07/17 11:21 Dose: Not Given Atorvastatin Calcium (Lipitor -) 80 mg PO HS [facility] Last Admin: 01/07/17 21:05 Dose: 80 mg Bacitracin (Bacitracin -) 1 applic TP DAILY [facility] Last Admin: 01/07/17 14:14 Dose: Not Given Brimonidine Tartrate (Alphagan 0.2% -) 2 drop OU DAILY [facility] Last Admin: 01/07/17 11:13 Dose: Not Given Budesonide/Formoterol Fumarate (Symbicort 80/4.5mcg -) 2 puff IH ONCE ONE Stop: 01/06/17 16:26 Bupropion HCl (Wellbutrin Xl -) 300 mg PO DAILY [facility] Last Admin: 01/07/17 11:21 Dose: 300 mg Carvedilol (Coreg -) 25 mg PO ONCE ONE Stop: 01/08/17 07:39 Clonazepam (Klonopin -) 0.5 mg PO BID [facility] Last Admin: 01/07/17 21:05 Dose: 0.5 mg Clopidogrel Bisulfate (Plavix -) 75 mg PO DAILY [facility] Last Admin: 01/07/17 11:20 Dose: 75 mg Furosemide (Lasix -) 40 mg PO BIDLASIX [facility] Last Admin: 01/08/17 05:35 Dose: 40 mg Insulin Aspart (Novolog Vial Sliding Scale -) 1 vial SQ [facility] PRN Reason: Protocol Last Admin: 01/08/17 07:28 Dose: Not Given Insulin Detemir (Levemir Vial) 7 units SQ HS [facility] Last Admin: 01/07/17 21:05 Dose: 7 units Lidocaine/Prilocaine (Emla -) 1 applic TP PRN PRN PRN Reason: PAIN Ondansetron HCl (Zofran -) 4 mg PO DAILY PRN PRN Reason: NAUSEA Pantoprazole Sodium (Protonix -) 40 mg PO DAILY [facility] Last Admin: 01/07/17 11:21 Dose: 40 mg Ranitidine HCl (Zantac -) 150 mg PO DAILY [facility] Last Admin: 01/07/17 11:21 Dose: 150 mg Senna (Senna -) 2 tab PO DAILY [facility] Last Admin: 01/07/17 11:19 Dose: 2 tab Timolol Maleate (Timoptic 0.5%) 2 drop OU DAILY [facility] Last Admin: 01/07/17 11:13 Dose: Not Given Topiramate (Topamax -) 50 mg PO BID [facility] Last Admin: 01/07/17 21:05 Dose: 50 mg - Objective Vital Signs: Vital Signs Temperature 98.2 F 01/08/17 05:37 Pulse Rate 84 01/08/17 05:37 Respiratory Rate 20 01/08/17 05:37 Blood Pressure 151/87 01/08/17 05:37 O2 Sat by Pulse Oximetry (%) 97 01/07/17 21:00 Constitutional: Yes: Calm Cardiovascular: Yes: Regular Rate and Rhythm Respiratory: Yes: CTA Bilaterally Gastrointestinal: Yes: Soft, Abdomen, Obese Edema: No Neurological: Yes: Alert Labs: CBC, BMP 01/07/17 10:20 01/07/17 10:20 INR, PTT INR 1.05 (0.82-1.09) 01/03/17 07:35 Laboratory Tests 01/05/17 01/06/17 01/07/17 12:30 05:35 10:20 WBC 5.3 Hgb 11.1 Plt Count 131 L Saline-Adjusted PTT PTT Baseline PTT Ratio Control Plt Neutralization dRVVT Confirm Interp 55.3 H dRVVT Mixing Study Hexagonal Phospholipid Func Antithrombin III Factor V Leiden Pending Factor V Leiden Comment Pending Potassium Fqoo-3-Dfzfawwrszcu Gbhy-9-Ifulnzwzfcyy Ab Beta-2-GPI IgM Ab Anti-Prothrombin IgG Phosphatidylserine IgG Phosphatidylserine IgM Anti-Cardiolipin IgG Ab <9 Anti-Cardiolipin IgA Ab <9 Anti-Cardiolipin IgM Ab <9 Cardiolipid IgG Ab Cardiolipid IgA Ab Cardiolipid IgM Ab MTHFR DNA Mutation Anal MTHFR Additional Info Prothrombin [id number] Mut Factor II DNA Comment 01/07/17 01/07/17 01/07/17 10:20 10:20 10:20 WBC 6.5 Hgb 11.4 Plt Count 125 L Saline-Adjusted PTT Pending PTT Baseline Pending PTT Ratio Control Pending Plt Neutralization Pending dRVVT Confirm Interp dRVVT Mixing Study Pending Hexagonal Phospholipid Pending Func Antithrombin III Pending Factor V Leiden Factor V Leiden Comment Potassium Drhh-1-Xtnvarzdtgfv Pending Bbli-5-Fwweemwxlwtg Ab Pending Beta-2-GPI IgM Ab Pending Anti-Prothrombin IgG Pending Phosphatidylserine IgG Pending Phosphatidylserine IgM Pending Anti-Cardiolipin IgG Ab Anti-Cardiolipin IgA Ab Anti-Cardiolipin IgM Ab Cardiolipid IgG Ab Pending Cardiolipid IgA Ab Pending Cardiolipid IgM Ab Pending MTHFR DNA Mutation Anal Pending MTHFR Additional Info Pending Prothrombin [id number] Mut Pending Factor II DNA Comment Pending 01/07/17 10:20 WBC Hgb Plt Count Saline-Adjusted PTT PTT Baseline PTT Ratio Control Plt Neutralization dRVVT Confirm Interp dRVVT Mixing Study Hexagonal Phospholipid Func Antithrombin III Factor V Leiden Factor V Leiden Comment Potassium 4.5 Gobc-7-Qtiuqjplblsv Dmrd-7-Ejjhrnpzntoe Ab Beta-2-GPI IgM Ab Anti-Prothrombin IgG Phosphatidylserine IgG Phosphatidylserine IgM Anti-Cardiolipin IgG Ab Anti-Cardiolipin IgA Ab Anti-Cardiolipin IgM Ab Cardiolipid IgG Ab Cardiolipid IgA Ab Cardiolipid IgM Ab MTHFR DNA Mutation Anal MTHFR Additional Info Prothrombin [id number] Mut Factor II DNA Comment - ....Imaging EKG: Image Reviewed (NSR) Assessment/Plan IMP: ESRD Multiple b/l strokes w/ work up showing only aortic atheroma (TOBIAS '15) REC: 1. For now cont ASA and Plavix as per Neuro. Warfarin has been considered, but we have not been able to find a source of emboli other than aortic atheroma which is treated with antiplatelet therapy and statins. Awaiting results of hypercoag w/u. Heme input noted. Will discuss with Dr. Hitchcock (outpatient credit office manager) ILR for jail rhythm monitoring. 2. Avoid hypotension during HD
[2017-01-08 09:20] LABS: MCH 31.9 pg (25.7-33.7); MCHC 31.7 g/dl (32.0-36.0); MEAN CELL VOLUME 100.9 fl (80-96); MEAN PLT VOLUME 9.8 fl (7.5-11.1); PLATELET COUNT 128 K/MM3 (134-434); RDW 14.3 % (11.6-15.6); WHITE BLOOD COUNT 6.9 K/mm3 (4.0-10.0)
[2017-01-08] MEDS ORDERED: CARVEDILOL 25 MG TABLET (FP) PO ONE (09:35)
[2017-01-08] MEDS ORDERED: PT OWN MED DRAWER 7, Y5N ONE ×3 (09:44→21:47)
[2017-01-08] MEDS: ASPIRIN COATED 81 MG TABLET.EC PO SCH (09:45)
[2017-01-08] MEDS: clonazePAM 0.5 MG TABLET PO SCH ×2 (09:46→21:48)
[2017-01-08] MEDS: amLODIPine BESYLATE 10 MG TABLET (FP) PO SCH (09:46)
[2017-01-08] MEDS: CLOPIDOGREL BISULFATE 75 MG TABLET (FP) PO SCH (09:46)
[2017-01-08] MEDS: RANITIDINE HCL 150 MG TABLET (FP) PO SCH (09:46)
[2017-01-08] MEDS: PANTOPRAZOLE 40 MG TABLET (FP) PO SCH (09:46)
[2017-01-08] MEDS: SENNOSIDES 8.6MG TABLET (FP) PO SCH (09:46)
[2017-01-08] MEDS: TIMOLOL 0.5% OPHTHALMIC SOL 5 ML BOTTLE OU SCH (09:47)
[2017-01-08] MEDS: BRIMONIDINE TARTRATE 0.2% OPHTHALMIC 5 ML BOTTLE OU SCH (09:47)
[2017-01-08] MEDS: TOPIRAMATE 25 MG TABLET (FP) PO SCH ×2 (09:48→21:47)
[2017-01-08 09:58] LABS: ALBUMIN 3.5 g/dl (3.4-5.0); ALK PHOS 51 U/L (45-117); ANION GAP 8 (8-16); BILIRUBIN,TOTAL 0.4 mg/dL (0.2-1.0); CALCIUM 9.6 mg/dL (8.5-10.1); CO2 33 mmol/L (21-32); GLUCOSE,RANDOM 142 mg/dL (74-106); SGOT/AST 25 U/L (15-37); SGPT/ALT 46 U/L (12-78); TOT PROT 7.1 g/dl (6.4-8.2)
--- NOTE | 2017-01-08 10:49 | PN ---
Physical Exam: SUBJECTIVE: Patient seen and examined. No acute events overnight. Patient offers no new complaints today. Denies headache, chest pain, SOB, and dizziness. OBJECTIVE: Vital Signs Period Temp Pulse Resp BP Sys/[place] Pulse Ox Last 24 Hr 97.7 F-98.2 F 70-88 18-20 104-151/70-91 97 GENERAL: Awake, alert, and fully oriented, in no acute distress. HEAD: Normal with no signs of trauma. EYES: Left eye: 1mm minimally reactive, Right eye: 2mm minimally reactive. Not able to follow fingers with eyes. NOSE, THROAT: oropharynx clear without exudates. Moist mucous membranes. NECK: Normal range of motion, supple without lymphadenopathy, JVD, or masses. LUNGS: Breath sounds equal, clear to auscultation bilaterally. No wheezes, and no crackles. No accessory muscle use. HEART: Regular rate and rhythm, normal S1 and S2 without murmur, rub or gallop. ABDOMEN: obese, soft, nontender, not distended, normoactive bowel sounds, no guarding, no rebound, no masses. No hepatomegaly or splenomegaly. MUSCULOSKELETAL: Normal range of motion at all joints. No bony deformities or tenderness. No CVA tenderness. UPPER EXTREMITIES: Tenderness to right arm at site of AVF. bruit over AVF. No erythema/warmth. 4/5 weakness on RUE and RLE including shoulder shrug, should abduction, bicepts, tricepts, and wrist flexion and extension. 3/5 dorsiflexion and plantar flextion. 5/5 LUE, LLE. 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 4 digits on right foot. right foot 1cm, dry, ulcerated lesion distal to great toe at sole of feet. NEURO: -Left eye blindness. -No facial asymmetry. Laboratory Results - last 24 hr 01/05/17 01/07/17 01/07/17 12:30 10:20 10:20 WBC 6.5 RBC 3.52 L Hgb 11.4 Hct 35.5 MCV 101.0 H MCH 32.3 MCHC 32.0 RDW 14.3 Plt Count 125 L MPV 9.3 Neutrophils % 68.6 Lymphocytes % 19.1 D Monocytes % 6.4 Eosinophils % 5.5 H Basophils % 0.4 LA PTT Baseline 36.4 dRVVT Confirm Interp 55.3 H dRVVT Mixing Study 43.9 Protein C Activity 105 Sodium 138 Potassium 4.5 Chloride 96 L Carbon Dioxide 32 Anion Gap 10 BUN 51 H D Creatinine 11.2 H* D POC Glucometer Random Glucose 187 H Calcium 9.2 Anti-Cardiolipin IgG Ab <9 Anti-Cardiolipin IgA Ab <9 Anti-Cardiolipin IgM Ab <9 01/07/17 01/07/17 01/07/17 11:47 17:04 20:54 WBC RBC Hgb Hct MCV MCH MCHC RDW Plt Count MPV Neutrophils % Lymphocytes % Monocytes % Eosinophils % Basophils % LA PTT Baseline dRVVT Confirm Interp dRVVT Mixing Study Protein C Activity Sodium Potassium Chloride Carbon Dioxide Anion Gap BUN Creatinine POC Glucometer 174 138 167 Random Glucose Calcium Anti-Cardiolipin IgG Ab Anti-Cardiolipin IgA Ab Anti-Cardiolipin IgM Ab 01/08/17 01/08/17 05:29 08:25 WBC 6.9 RBC 3.64 Hgb 11.6 Hct 36.8 MCV 100.9 H MCH 31.9 MCHC 31.7 L RDW 14.3 Plt Count 128 L MPV 9.8 Neutrophils % Lymphocytes % Monocytes % Eosinophils % Basophils % LA PTT Baseline dRVVT Confirm Interp dRVVT Mixing Study Protein C Activity Sodium Potassium Chloride Carbon Dioxide Anion Gap BUN Creatinine POC Glucometer 144 Random Glucose Calcium Anti-Cardiolipin IgG Ab Anti-Cardiolipin IgA Ab Anti-Cardiolipin IgM Ab Active Medications Generic Name Dose Route Start Last Admin Trade Name Freq PRN Reason Stop Dose Admin Albuterol Sulfate 2 puff 01/06/17 16:25 Ventolin Hfa Inhaler - IH Q12H PRN ASTHMA Amlodipine Besylate 10 mg 01/08/17 10:00 01/08/17 09:46 Norvasc - PO 10 mg DAILY [facility] Administration Aspirin 81 mg 01/07/17 10:00 01/08/17 09:45 Ecotrin - PO 81 mg DAILY [facility] Administration Atorvastatin Calcium 80 mg 01/06/17 22:00 01/07/17 21:05 Lipitor - PO 80 mg HS [facility] Administration Bacitracin 1 applic 01/07/17 10:00 01/07/17 14:14 Bacitracin - TP Not Given DAILY [facility] Brimonidine Tartrate 2 drop 10/14/17 10:00 01/08/17 09:47 Alphagan 0.2% - OU Not Given DAILY [facility] Budesonide/Formoterol Fumarate 2 puff 01/06/17 16:25 Symbicort 80/4.5mcg - IH 01/06/17 16:26 ONCE ONE Bupropion HCl 300 mg 01/07/17 10:00 01/08/17 09:48 Wellbutrin Xl - PO 300 mg DAILY [facility] Administration Clonazepam 0.5 mg 01/06/17 22:00 01/08/17 09:46 Klonopin - PO 0.5 mg BID [facility] Administration Clopidogrel Bisulfate 75 mg 01/07/17 10:00 01/08/17 09:46 Plavix - PO 75 mg DAILY [facility] Administration Furosemide 40 mg 01/07/17 06:00 01/08/17 05:35 Lasix - PO 40 mg BIDLASIX [facility] Administration Insulin Aspart 1 vial 01/06/17 16:30 01/08/17 07:28 Novolog Vial Sliding Scale - SQ Not Given ACHS [facility] Protocol Insulin Detemir 7 units 01/06/17 22:00 01/07/17 21:05 Levemir Vial SQ 7 units HS [facility] Administration Lidocaine/Prilocaine 1 applic 01/06/17 16:25 Emla - TP PRN PRN PAIN Ondansetron HCl 4 mg 01/06/17 16:25 Zofran - PO DAILY PRN NAUSEA Pantoprazole Sodium 40 mg 01/07/17 10:00 01/08/17 09:46 Protonix - PO 40 mg DAILY [facility] Administration Ranitidine HCl 150 mg 01/07/17 10:00 01/08/17 09:46 Zantac - PO 150 mg DAILY [facility] Administration Senna 2 tab 01/07/17 10:00 01/08/17 09:46 Senna - PO 2 tab DAILY [facility] Administration Timolol Maleate 2 drop 01/07/17 10:00 01/08/17 09:47 Timoptic 0.5% OU Not Given DAILY [facility] Topiramate 50 mg 01/06/17 22:00 01/08/17 09:48 Topamax - PO 50 mg BID [facility] Administration ASSESSMENT/PLAN: #Acute vs. Subacute CVA -Moderate to large acute/subacute infarct in the left frontal lobe. Other acute/ subacute infarcts are present in the left frontal lobe, anterior cerebral artery territory, watershed region as well as in the left parietal lobe. -Repeat Head CT reviewed: no change -Neuro checks -Echo with no thrombus - US (last admission) with right carotid occlusion. -Continue Wellbutrin XR 300 mg qd as per neuro -TOBIAS cancelled because of seizure-like activity prior to procedure. during initiation of anesthesia she was noted to have seizure like activity with stiffness of R arm and associated rhythmic movements as well as rhythmic movements of eyes. This was immediately after etomidate. She was then given propofol and seizure like activity stopped. -Requires further evaluation for causes of stroke. -Observe off AED's, -outpatient neuro follow up -FU EEG -Heme/onc consulted. F/U hypercoaguable tests -continue BP meds as per Neuro. -continue Plavix, ASA #ESRD w/ dysfunctional fistula -11.2 creatinine, 51 BUN -US doppler reviewed. -focal venous stenosis at AVF -s/p venogram/venplasty #DM -ISS -Levemir 7 Units HS #HTN -Increased Coreg to 25mg -Stopped Hydralazine -Norvasc 10 #Chronic Right foot ulcer -Chronic ulceration right plantar hallux with underlying chronic osteomyelits but no acute infection as per Podiatry -Apply betadine sterile dressing daily #DVT: No DVT PPX #FEN: -Not on IV fluids -WNL -Renal diet Visit type - Emergency Visit Emergency Visit: Yes ED Registration Date: 01/03/17 Care time: The patient presented to the Emergency Department on the above date and was hospitalized for further evaluation of their emergent condition. - New Patient This patient is new to me today: No - Critical Care Critical Care patient: No
--- NOTE | 2017-01-08 15:37 | PN ---
Teaching Attending Note Name of Resident: Manuel Rushing ATTENDING PHYSICIAN STATEMENT I saw and evaluated the patient. I reviewed the resident's note and discussed the case with the resident. I agree with the resident's findings and plan as documented. SUBJECTIVE: OBJECTIVE: ASSESSMENT AND PLAN: patient is doing well without any issues will c/w cardiology recommendations - spoke to Dr. Hall and patient has no hx of atrial fibrillation documented as an out patient, TOBIAS in 2015 negative for thrombus, but positive for aortic atheroma will c/w same management awaiting the coagulation profile prior to intiation of anticoagulation c/w [place] recommendation for stroke.
[2017-01-08] MEDS: BACITRACIN 15 GM TUBE TOPICAL OINTMENT TP SCH (16:12)
--- NOTE | 2017-01-08 16:48 | PN ---
Progress Note, Physician History of Present Illness: Pt seen and examined at bedside. She is awake and alert. She tolerated HD yesterday. - Current Medication List Current Medications: Active Medications Albuterol Sulfate (Ventolin Hfa Inhaler -) 2 puff IH Q12H PRN PRN Reason: ASTHMA Amlodipine Besylate (Norvasc -) 10 mg PO DAILY [facility] Last Admin: 01/08/17 09:46 Dose: 10 mg Aspirin (Ecotrin -) 81 mg PO DAILY [facility] Last Admin: 01/08/17 09:45 Dose: 81 mg Atorvastatin Calcium (Lipitor -) 80 mg PO HS [facility] Last Admin: 01/07/17 21:05 Dose: 80 mg Bacitracin (Bacitracin -) 1 applic TP DAILY [facility] Last Admin: 01/08/17 16:12 Dose: Not Given Brimonidine Tartrate (Alphagan 0.2% -) 2 drop OU DAILY [facility] Last Admin: 01/08/17 09:47 Dose: Not Given Budesonide/Formoterol Fumarate (Symbicort 80/4.5mcg -) 2 puff IH ONCE ONE Stop: 01/06/17 16:26 Bupropion HCl (Wellbutrin Xl -) 300 mg PO DAILY [facility] Last Admin: 01/08/17 09:48 Dose: 300 mg Clonazepam (Klonopin -) 0.5 mg PO BID [facility] Last Admin: 01/08/17 09:46 Dose: 0.5 mg Clopidogrel Bisulfate (Plavix -) 75 mg PO DAILY [facility] Last Admin: 01/08/17 09:46 Dose: 75 mg Furosemide (Lasix -) 40 mg PO BIDLASIX [facility] Last Admin: 01/08/17 15:55 Dose: 40 mg Insulin Aspart (Novolog Vial Sliding Scale -) 1 vial SQ ACHS [facility] PRN Reason: Protocol Last Admin: 01/08/17 11:44 Dose: 4 units Insulin Detemir (Levemir Vial) 7 units SQ HS [facility] Last Admin: 01/07/17 21:05 Dose: 7 units Lidocaine/Prilocaine (Emla -) 1 applic TP PRN PRN PRN Reason: PAIN Ondansetron HCl (Zofran -) 4 mg PO DAILY PRN PRN Reason: NAUSEA Pantoprazole Sodium (Protonix -) 40 mg PO DAILY [facility] Last Admin: 10/15/17 09:46 Dose: 40 mg Ranitidine HCl (Zantac -) 150 mg PO DAILY [facility] Last Admin: 01/08/17 09:46 Dose: 150 mg Senna (Senna -) 2 tab PO DAILY [facility] Last Admin: 01/08/17 09:46 Dose: 2 tab Timolol Maleate (Timoptic 0.5%) 2 drop OU DAILY [facility] Last Admin: 01/08/17 09:47 Dose: Not Given Topiramate (Topamax -) 50 mg PO BID [facility] Last Admin: 01/08/17 09:48 Dose: 50 mg - Objective Vital Signs: Vital Signs Temperature 99.3 F 01/08/17 13:32 Pulse Rate 81 01/08/17 16:01 Respiratory Rate 18 01/08/17 16:01 Blood Pressure 133/69 01/08/17 16:01 O2 Sat by Pulse Oximetry (%) 97 01/08/17 09:00 Constitutional: Yes: Calm HENT: Yes: Atraumatic Neck: Yes: Supple Cardiovascular: Yes: S1, S2 Respiratory: Yes: CTA Bilaterally Gastrointestinal: Yes: Soft, Abdomen, Obese Genitourinary: Yes: WNL Musculoskeletal: Yes: WNL Edema: Yes Edema: LLE: Trace, RLE: Trace Neurological: Yes: Oriented Psychiatric: Yes: Oriented Labs: CBC, BMP 01/08/17 08:25 01/08/17 08:25 INR, PTT INR 1.05 (0.82-1.09) 01/03/17 07:35 Problem List - Problems (1) CVA (cerebral vascular accident) Code(s): I63.9 - CEREBRAL INFARCTION, UNSPECIFIED (2) Diabetes Code(s): E11.9 - TYPE 2 DIABETES MELLITUS WITHOUT COMPLICATIONS Qualifiers: Diabetes mellitus type: type 2 Diabetes mellitus complication status: with kidney complications Diabetes mellitus complication detail: with chronic kidney disease Diabetes mellitus long term care administrator insulin use: with long term care administrator use Chronic kidney disease stage: on chronic dialysis Qualified Code(s): E11.22 - Type 2 diabetes mellitus with diabetic chronic kidney disease ; E11.22 - Type 2 diabetes mellitus with diabetic chronic kidney disease; E11.22 - Type 2 diabetes mellitus with diabetic chronic kidney disease; E11.22 - Type 2 diabetes mellitus with diabetic chronic kidney disease; E11.22 - Type 2 diabetes mellitus with diabetic chronic kidney disease; N18.1 - Chronic kidney disease, stage 1; N18.1 - Chronic kidney disease, stage 1; Z79.4 - terminal supervisor (current) use of insulin; Z79.4 - snf (current) use of insulin; Z79.4 - snf (current) use of insulin; Z79.4 - snf (current) use of insulin (3) ESRD (end stage renal disease) Code(s): N18.6 - END STAGE RENAL DISEASE (4) Hypertension Code(s): I10 - ESSENTIAL (PRIMARY) HYPERTENSION Qualifiers: Hypertension type: essential hypertension Qualified Code(s): I10 - Essential (primary) hypertension; I10 - Essential (primary) hypertension; I10 - Essential (primary) hypertension Assessment/Plan Current Medications Generic Name Dose Route Start Last Admin Trade Name Freq PRN Reason Stop Dose Admin Albuterol Sulfate 2 puff 01/06/17 16:25 Ventolin Hfa Inhaler - IH Q12H PRN ASTHMA Amlodipine Besylate 10 mg 01/08/17 10:00 01/08/17 09:46 Norvasc - PO 10 mg DAILY [facility] Administration Aspirin 81 mg 01/07/17 10:00 01/08/17 09:45 Ecotrin - PO 81 mg DAILY [facility] Administration Atorvastatin Calcium 80 mg 01/06/17 22:00 01/07/17 21:05 Lipitor - PO 80 mg HS [facility] Administration Bacitracin 1 applic 01/07/17 10:00 01/08/17 16:12 Bacitracin - TP Not Given DAILY [facility] Brimonidine Tartrate 2 drop 01/07/17 10:00 01/08/17 09:47 Alphagan 0.2% - OU Not Given DAILY [facility] Budesonide/Formoterol Fumarate 2 puff 01/06/17 16:25 Symbicort 80/4.5mcg - IH 01/06/17 16:26 ONCE ONE Bupropion HCl 300 mg 01/07/17 10:00 01/08/17 09:48 Wellbutrin Xl - PO 300 mg DAILY [facility] Administration Clonazepam 0.5 mg 01/06/17 22:00 01/08/17 09:46 Klonopin - PO 0.5 mg BID [facility] Administration Clopidogrel Bisulfate 75 mg 01/07/17 10:00 01/08/17 09:46 Plavix - PO 75 mg DAILY [facility] Administration Furosemide 40 mg 01/07/17 06:00 01/08/17 15:55 Lasix - PO 40 mg BIDLASIX [facility] Administration Insulin Aspart 1 vial 01/06/17 16:30 01/08/17 11:44 Novolog Vial Sliding Scale - SQ 4 units ACHS [facility] Administration Protocol Insulin Detemir 7 units 01/06/17 22:00 01/07/17 21:05 Levemir Vial SQ 7 units HS [facility] Administration Lidocaine/Prilocaine 1 applic 01/06/17 16:25 Emla - TP PRN PRN PAIN Ondansetron HCl 4 mg 01/06/17 16:25 Zofran - PO DAILY PRN NAUSEA Pantoprazole Sodium 40 mg 01/07/17 10:00 01/08/17 09:46 Protonix - PO 40 mg DAILY [facility] Administration Ranitidine HCl 150 mg 01/07/17 10:00 01/08/17 09:46 Zantac - PO 150 mg DAILY [facility] Administration Senna 2 tab 01/07/17 10:00 01/08/17 09:46 Senna - PO 2 tab DAILY [facility] Administration Timolol Maleate 2 drop 01/07/17 10:00 01/08/17 09:47 Timoptic 0.5% OU Not Given DAILY [facility] Topiramate 50 mg 01/06/17 22:00 01/08/17 09:48 Topamax - PO 50 mg BID [facility] Administration Impression 1. ESRD 2. CVA 3. DM 4. HLD 5. HTN 6. anemia 7. anxiety 8. infected right foot ulcer 9. possible seizure Plan - will arrange for HD in am to get pt back on MWF schedule - follow up hyerpcoag workup - cont current meds - will follow - outpt HD: [facility] 2 k bath, 4 hrs, 116.5 kg, 1000 epogen, hectorol 4 mcg, venofer, [address] Sharma
[2017-01-08] MEDS ORDERED: INSULIN (NOVOLOG) ASPART 100 UNITS/ML 10ML VIAL ONE (17:40)
[2017-01-08] MEDS: ATORVASTATIN CA 80 MG TABLET (FP) PO SCH (21:48)
[2017-01-08] MEDS: INSULIN DETEMIR 100 UNITS/ML MDV SQ SCH (21:48)
[2017-01-09] MEDS: FUROSEMIDE 40 MG TABLET (FP) PO SCH ×2 (05:26→13:46)
[2017-01-09] MEDS: INSULIN SLIDING SCALE (NOVOLOG) 1 VIAL SQ SCH ×4 (07:01→23:38)
[2017-01-09 07:40] LABS: ANION GAP 10 (8-16); CALCIUM 9.5 mg/dL (8.5-10.1); CO2 30 mmol/L (21-32); GLUCOSE,RANDOM 164 mg/dL (74-106)
[2017-01-09 07:49] LABS: CREATININE 11.1 mg/dL (0.55-1.02)
[2017-01-09] MEDS ORDERED: PT OWN MED DRAWER 7, Y5N ONE ×2 (10:18→23:30)
[2017-01-09] MEDS: PANTOPRAZOLE 40 MG TABLET (FP) PO SCH (10:20)
[2017-01-09] MEDS: TOPIRAMATE 25 MG TABLET (FP) PO SCH ×2 (10:20→23:37)
[2017-01-09] MEDS: RANITIDINE HCL 150 MG TABLET (FP) PO SCH (10:21)
[2017-01-09] MEDS: amLODIPine BESYLATE 10 MG TABLET (FP) PO SCH (10:21)
[2017-01-09] MEDS: CLOPIDOGREL BISULFATE 75 MG TABLET (FP) PO SCH (10:21)
[2017-01-09] MEDS: ASPIRIN COATED 81 MG TABLET.EC PO SCH (10:22)
[2017-01-09] MEDS: SENNOSIDES 8.6MG TABLET (FP) PO SCH (10:22)
[2017-01-09] MEDS: clonazePAM 0.5 MG TABLET PO SCH ×2 (10:22→23:37)
[2017-01-09] MEDS: BRIMONIDINE TARTRATE 0.2% OPHTHALMIC 5 ML BOTTLE OU SCH (10:23)
[2017-01-09] MEDS: TIMOLOL 0.5% OPHTHALMIC SOL 5 ML BOTTLE OU SCH (10:24)
[2017-01-09] MEDS: BACITRACIN 15 GM TUBE TOPICAL OINTMENT TP SCH (11:25)
--- NOTE | 2017-01-09 11:26 | PN ---
Progress Note, Physician History of Present Illness: seen and examined today in nad. no overnight events. no new complaints. - Current Medication List Current Medications: Active Medications Albuterol Sulfate (Ventolin Hfa Inhaler -) 2 puff IH Q12H PRN PRN Reason: ASTHMA Amlodipine Besylate (Norvasc -) 10 mg PO DAILY [facility] Last Admin: 01/09/17 10:21 Dose: 10 mg Aspirin (Ecotrin -) 81 mg PO DAILY [facility] Last Admin: 01/09/17 10:22 Dose: 81 mg Atorvastatin Calcium (Lipitor -) 80 mg PO HS [facility] Last Admin: 01/08/17 21:48 Dose: 80 mg Bacitracin (Bacitracin -) 1 applic TP DAILY [facility] Last Admin: 01/09/17 11:25 Dose: Not Given Brimonidine Tartrate (Alphagan 0.2% -) 2 drop OU DAILY [facility] Last Admin: 01/09/17 10:23 Dose: Not Given Budesonide/Formoterol Fumarate (Symbicort 80/4.5mcg -) 2 puff IH ONCE ONE Stop: 01/06/17 16:26 Bupropion HCl (Wellbutrin Xl -) 300 mg PO DAILY [facility] Last Admin: 01/09/17 10:21 Dose: 300 mg Clonazepam (Klonopin -) 0.5 mg PO BID [facility] Last Admin: 01/09/17 10:22 Dose: 0.5 mg Clopidogrel Bisulfate (Plavix -) 75 mg PO DAILY [facility] Last Admin: 01/09/17 10:21 Dose: 75 mg Furosemide (Lasix -) 40 mg PO BIDLASIX [facility] Last Admin: 01/09/17 05:26 Dose: Not Given Insulin Aspart (Novolog Vial Sliding Scale -) 1 vial SQ ACHS [facility] PRN Reason: Protocol Last Admin: 01/09/17 11:21 Dose: 2 units Insulin Detemir (Levemir Vial) 7 units SQ HS [facility] Last Admin: 01/08/17 21:48 Dose: 7 units Lidocaine/Prilocaine (Emla -) 1 applic TP PRN PRN PRN Reason: PAIN Ondansetron HCl (Zofran -) 4 mg PO DAILY PRN PRN Reason: NAUSEA Pantoprazole Sodium (Protonix -) 40 mg PO DAILY [facility] Last Admin: 01/09/17 10:20 Dose: 40 mg Ranitidine HCl (Zantac -) 150 mg PO DAILY [facility] Last Admin: 01/09/17 10:21 Dose: 150 mg Senna (Senna -) 2 tab PO DAILY [facility] Last Admin: 01/09/17 10:22 Dose: Not Given Timolol Maleate (Timoptic 0.5%) 2 drop OU DAILY [facility] Last Admin: 01/09/17 10:24 Dose: Not Given Topiramate (Topamax -) 50 mg PO BID [facility] Last Admin: 01/09/17 10:20 Dose: 50 mg - Objective Vital Signs: Vital Signs Temperature 98.6 F 01/09/17 06:00 Pulse Rate 88 01/09/17 06:00 Respiratory Rate 16 01/09/17 06:00 Blood Pressure 155/79 01/09/17 06:00 O2 Sat by Pulse Oximetry (%) 97 01/08/17 20:36 Constitutional: Yes: No Distress, Calm, Obese Eyes: Yes: Conjunctiva Clear, EOM Intact, PERRL HENT: Yes: Atraumatic, Normocephalic Neck: Yes: Supple, Trachea Midline Cardiovascular: Yes: Regular Rate and Rhythm, S1, S2. No: Bradycardia, Tachycardia, Pulse Irregular, Bruit, JVD, Gallop, Murmur, Rub, S3, S4, Varicosities Respiratory: Yes: Regular, CTA Bilaterally. No: Rales, Rhonchi, Wheezes Gastrointestinal: Yes: Normal Bowel Sounds, Soft. 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 Coreg was ordered for 1 time dose yesterday but there is no standing order. Hydralazine was stopped 01/06 will clarify why. If norvasc is not sufficient can be changed to Nifedipine. To be considered for ILR implantation as outpatient for snf monitoring for occult arrhythmia At this point there has been no evidence found from a cardiac standpoint to initiate full AC (aortic atheroma which is treated with anti-platelets and statins, no recorded arrythmias, no thrombus or pfo on TOBIAS 2014) Repeat TOBIAS was attempted but pt was noted to have seizure like activity during induction of anesthesia-unknown if true seizure or not, EEG was done and is pending Will await heme work up, if there is evidence of a hypercoagulable state and full AC is indicated then it will be started and repeat TOBIAS would not be helpful in that case. If hypercoagulable work up is negative will consider another attempt at repeating TOBIAS (provided no seizures and if seizures that treatment is started). Pt does not need to remain in hospital for TOBIAS to be done.
--- NOTE | 2017-01-09 13:08 | PN ---
Progress Note, Physician History of Present Illness: Pt seen and examined at bedside. She is awake and alert. She denies shortness of breath. - Current Medication List Current Medications: Active Medications Albuterol Sulfate (Ventolin Hfa Inhaler -) 2 puff IH Q12H PRN PRN Reason: ASTHMA Amlodipine Besylate (Norvasc -) 10 mg PO DAILY [facility] Last Admin: 01/09/17 10:21 Dose: 10 mg Aspirin (Ecotrin -) 81 mg PO DAILY [facility] Last Admin: 01/09/17 10:22 Dose: 81 mg Atorvastatin Calcium (Lipitor -) 80 mg PO HS [facility] Last Admin: 01/08/17 21:48 Dose: 80 mg Bacitracin (Bacitracin -) 1 applic TP DAILY [facility] Last Admin: 01/09/17 11:25 Dose: Not Given Brimonidine Tartrate (Alphagan 0.2% -) 2 drop OU DAILY [facility] Last Admin: 01/09/17 10:23 Dose: Not Given Budesonide/Formoterol Fumarate (Symbicort 80/4.5mcg -) 2 puff IH ONCE ONE Stop: 01/06/17 16:26 Bupropion HCl (Wellbutrin Xl -) 300 mg PO DAILY [facility] Last Admin: 01/09/17 10:21 Dose: 300 mg Clonazepam (Klonopin -) 0.5 mg PO BID [facility] Last Admin: 01/09/17 10:22 Dose: 0.5 mg Clopidogrel Bisulfate (Plavix -) 75 mg PO DAILY [facility] Last Admin: 01/09/17 10:21 Dose: 75 mg Furosemide (Lasix -) 40 mg PO BIDLASIX [facility] Last Admin: 01/09/17 05:26 Dose: Not Given Insulin Aspart (Novolog Vial Sliding Scale -) 1 vial SQ ACHS [facility] PRN Reason: Protocol Last Admin: 01/09/17 11:21 Dose: 2 units Insulin Detemir (Levemir Vial) 7 units SQ HS [facility] Last Admin: 01/08/17 21:48 Dose: 7 units Lidocaine/Prilocaine (Emla -) 1 applic TP PRN PRN PRN Reason: PAIN Ondansetron HCl (Zofran -) 4 mg PO DAILY PRN PRN Reason: NAUSEA Pantoprazole Sodium (Protonix -) 40 mg PO DAILY [facility] Last Admin: 01/09/17 10:20 Dose: 40 mg Ranitidine HCl (Zantac -) 150 mg PO DAILY [facility] Last Admin: 01/09/17 10:21 Dose: 150 mg Senna (Senna -) 2 tab PO DAILY [facility] Last Admin: 01/09/17 10:22 Dose: Not Given Timolol Maleate (Timoptic 0.5%) 2 drop OU DAILY [facility] Last Admin: 01/09/17 10:24 Dose: Not Given Topiramate (Topamax -) 50 mg PO BID [facility] Last Admin: 01/09/17 10:20 Dose: 50 mg - Objective Vital Signs: Vital Signs Temperature 98.6 F 01/09/17 06:00 Pulse Rate 88 01/09/17 06:00 Respiratory Rate 16 01/09/17 06:00 Blood Pressure 155/79 01/09/17 06:00 O2 Sat by Pulse Oximetry (%) 90 L 01/09/17 09:00 Constitutional: Yes: Calm Eyes: Yes: Conjunctiva Clear HENT: Yes: Atraumatic Neck: Yes: Supple Cardiovascular: Yes: S1, S2 Respiratory: Yes: CTA Bilaterally Gastrointestinal: Yes: Soft, Abdomen, Obese Genitourinary: Yes: WNL Musculoskeletal: Yes: WNL Edema: Yes Edema: LLE: Trace, RLE: Trace Neurological: Yes: Oriented Psychiatric: Yes: Oriented Labs: CBC, BMP 01/08/17 08:25 01/09/17 06:25 INR, PTT INR 1.05 (0.82-1.09) 01/03/17 07:35 Problem List - Problems (1) CVA (cerebral vascular accident) Code(s): I63.9 - CEREBRAL INFARCTION, UNSPECIFIED (2) Diabetes Code(s): E11.9 - TYPE 2 DIABETES MELLITUS WITHOUT COMPLICATIONS Qualifiers: Diabetes mellitus type: type 2 Diabetes mellitus complication status: with kidney complications Diabetes mellitus complication detail: with chronic kidney disease Diabetes mellitus terminal system operator insulin use: with penitentiary use Chronic kidney disease stage: on chronic dialysis Qualified Code(s): E11.22 - Type 2 diabetes mellitus with diabetic chronic kidney disease ; E11.22 - Type 2 diabetes mellitus with diabetic chronic kidney disease; E11.22 - Type 2 diabetes mellitus with diabetic chronic kidney disease; E11.22 - Type 2 diabetes mellitus with diabetic chronic kidney disease; E11.22 - Type 2 diabetes mellitus with diabetic chronic kidney disease; N18.1 - Chronic kidney disease, stage 1; N18.1 - Chronic kidney disease, stage 1; Z79.4 - MCC (current) use of insulin; Z79.4 - MCC (current) use of insulin; Z79.4 - terminal superintendent (current) use of insulin; Z79.4 - MCC (current) use of insulin (3) ESRD (end stage renal disease) Code(s): N18.6 - END STAGE RENAL DISEASE (4) Hypertension Code(s): I10 - ESSENTIAL (PRIMARY) HYPERTENSION Qualifiers: Hypertension type: essential hypertension Qualified Code(s): I10 - Essential (primary) hypertension; I10 - Essential (primary) hypertension; I10 - Essential (primary) hypertension Assessment/Plan Current Medications Generic Name Dose Route Start Last Admin Trade Name Freq PRN Reason Stop Dose Admin Albuterol Sulfate 2 puff 01/06/17 16:25 Ventolin Hfa Inhaler - IH Q12H PRN ASTHMA Amlodipine Besylate 10 mg 01/08/17 10:00 01/09/17 10:21 Norvasc - PO 10 mg DAILY [facility] Administration Aspirin 81 mg 01/07/17 10:00 01/09/17 10:22 Ecotrin - PO 81 mg DAILY [facility] Administration Atorvastatin Calcium 80 mg 01/06/17 22:00 01/08/17 21:48 Lipitor - PO 80 mg HS [facility] Administration Bacitracin 1 applic 01/07/17 10:00 01/09/17 11:25 Bacitracin - TP Not Given DAILY [facility] Brimonidine Tartrate 2 drop 01/07/17 10:00 01/09/17 10:23 Alphagan 0.2% - OU Not Given DAILY [facility] Budesonide/Formoterol Fumarate 2 puff 01/06/17 16:25 Symbicort 80/4.5mcg - IH 01/06/17 16:26 ONCE ONE Bupropion HCl 300 mg 01/07/17 10:00 01/09/17 10:21 Wellbutrin Xl - PO 300 mg DAILY [facility] Administration Clonazepam 0.5 mg 01/06/17 22:00 01/09/17 10:22 Klonopin - PO 0.5 mg BID [facility] Administration Clopidogrel Bisulfate 75 mg 01/07/17 10:00 01/09/17 10:21 Plavix - PO 75 mg DAILY [facility] Administration Furosemide 40 mg 10/14/17 06:00 01/09/17 05:26 Lasix - PO Not Given BIDLASIX [facility] Insulin Aspart 1 vial 01/06/17 16:30 01/09/17 11:21 Novolog Vial Sliding Scale - SQ 2 units ACHS [facility] Administration Protocol Insulin Detemir 7 units 01/06/17 22:00 01/08/17 21:48 Levemir Vial SQ 7 units HS [facility] Administration Lidocaine/Prilocaine 1 applic 01/06/17 16:25 Emla - TP PRN PRN PAIN Ondansetron HCl 4 mg 01/06/17 16:25 Zofran - PO DAILY PRN NAUSEA Pantoprazole Sodium 40 mg 01/07/17 10:00 01/09/17 10:20 Protonix - PO 40 mg DAILY [facility] Administration Ranitidine HCl 150 mg 01/07/17 10:00 01/09/17 10:21 Zantac - PO 150 mg DAILY [facility] Administration Senna 2 tab 01/07/17 10:00 01/09/17 10:22 Senna - PO Not Given DAILY [facility] Timolol Maleate 2 drop 01/07/17 10:00 01/09/17 10:24 Timoptic 0.5% OU Not Given DAILY [facility] Topiramate 50 mg 01/06/17 22:00 01/09/17 10:20 Topamax - PO 50 mg BID [facility] Administration Impression 1. ESRD 2. CVA 3. DM 4. HLD 5. HTN 6. anemia 7. anxiety 8. infected right foot ulcer 9. possible seizure Plan - HD today - cont current meds - hypercoag workup in progress - pt/rehab - outpt HD: [facility] 2 k bath, 4 hrs, 116.5 kg, 1000 epogen, hectorol 4 mcg, venofer, [address] Sharma
--- NOTE | 2017-01-09 15:37 | PN ---
Teaching Attending Note Name of Resident: Manuel Rushing ATTENDING PHYSICIAN STATEMENT I saw and evaluated the patient. I reviewed the resident's note and discussed the case with the resident. I agree with the resident's findings and plan as documented. SUBJECTIVE: no acute events no new complaints OBJECTIVE: Vital Signs Temperature 98.6 F 01/09/17 14:00 Pulse Rate 90 01/09/17 14:00 Respiratory Rate 18 01/09/17 14:00 Blood Pressure 152/81 01/09/17 14:00 O2 Sat by Pulse Oximetry (%) 90 L 01/09/17 09:00 Cardiovascular: Yes: Regular Rate and Rhythm, S1, S2. No: Bradycardia, Tachycardia, Pulse Irregular, Bruit, JVD, Gallop, Murmur, Rub, S3, S4, Varicosities Respiratory: Yes: Regular, CTA Bilaterally. No: Rales, Rhonchi, Wheezes Gastrointestinal: Yes: Normal Bowel Sounds, Soft. No: Distention, Tenderness Musculoskeletal: Yes: Muscle Weakness Edema: No Peripheral Pulses WNL: Yes Peripheral Pulses: Left Doralis Pedis: 2+, Right Dorsalis Pedis: 2+ CBC, BMP 01/08/17 08:25 01/09/17 06:25 #Acute vs. Subacute CVA Moderate to large acute/subacute infarct in the left frontal lobe. Other acute/subacute infarcts are present in the left frontal lobe , anterior cerebral artery territory, watershed region as well as in the left parietal lobe. 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 Hypercoaguable workup was sent out however it is low on the differential considering obvious risk factors. - plavix - asa - risk factor modification #ESRD w/ dysfunctional fistula -11.2 creatinine, 51 BUN -US doppler reviewed. -focal venous stenosis at AVF -s/p venogram/venplasty #DM- uncontrolled -Levemir increase to 10 Units HS #HTN -Increased Coreg to 25mg -Norvasc 10 #Chronic Right foot ulcer -Chronic ulceration right plantar hallux with underlying chronic osteomyelits but no acute infection as per Podiatry -Apply betadine sterile dressing daily Medically optimized for discharge Needs close outpatient follow up and this was discussed with patient
--- NOTE | 2017-01-09 15:54 | DS ---
Physical Exam: SUBJECTIVE: Patient seen and examined. No acute events overnight. Patient offers no new complaints. OBJECTIVE: Vital Signs Period Temp Pulse Resp BP Sys/[place] Pulse Ox Last 24 Hr 98.3 F-98.7 F 54-90 16-18 133-156/69-88 90-97 PHYSICAL EXAM GENERAL: Awake, alert, and fully oriented, in no acute distress. HEAD: Normal with no signs of trauma. EYES: Left eye: 1mm minimally reactive, Right eye: 2mm minimally reactive. Not able to follow fingers with eyes. NOSE, THROAT: oropharynx clear without exudates. Moist mucous membranes. NECK: Normal range of motion, supple without lymphadenopathy, JVD, or masses. LUNGS: Breath sounds equal, clear to auscultation bilaterally. No wheezes, and no crackles. No accessory muscle use. HEART: Regular rate and rhythm, normal S1 and S2 without murmur, rub or gallop. ABDOMEN: obese, soft, nontender, not distended, normoactive bowel sounds, no guarding, no rebound, no masses. No hepatomegaly or splenomegaly. MUSCULOSKELETAL: Normal range of motion at all joints. No bony deformities or tenderness. No CVA tenderness. UPPER EXTREMITIES: Tenderness to right arm at site of AVF. bruit over AVF. No erythema/warmth. 4/5 weakness on RUE and RLE including shoulder shrug, should abduction, bicepts, tricepts, and wrist flexion and extension. 3/5 dorsiflexion and plantar flextion. 5/5 LUE, LLE. 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 4 digits on right foot. right foot 1cm, dry, ulcerated lesion distal to great toe at sole of feet. NEURO: Left eye blindness. No facial asymmetry. LABS Laboratory Results - last 24 hr 01/08/17 01/08/17 01/09/17 17:16 21:42 05:20 Sodium Potassium Chloride Carbon Dioxide Anion Gap BUN Creatinine POC Glucometer 166 173 147 Random Glucose Calcium 01/09/17 01/09/17 06:25 11:20 Sodium 138 Potassium 4.1 Chloride 98 Carbon Dioxide 30 Anion Gap 10 BUN 53 H D Creatinine 11.1 H* D POC Glucometer 179 Random Glucose 164 H Calcium 9.5 HOSPITAL COURSE: Date of Admission:01/03/17 51 yo F with PMH of CVA, TIA, HTN, HLD, DM, left retinal detachment, left eye blindness, ESRD on HD (MWF), wheelchair bound, presented to the ED with 2 weeks of right arm heaviness and right arm numbness/burning on her right arm around the fistula site and was admitted for Acute vs. Subacute CVA in the left frontal lobe. Other acute/subacute infarcts are present in the left frontal lobe , anterior cerebral artery territory, watershed region as well as in the left parietal lobe. Patient was being followed and managed by Neuro, Cardio, Nephrology, Vascular and Hematology. Patient underwent venogram and venoplasty for AVF stenosis. She was being dialyzed in the hospital and will continue outpatient dialysis schedule. She will also follow up with neurology in 2 weeks for EEG results. Patient will need to follow up with hematology for hypercoaguable lab results. Will await heme work up, if there is evidence of a hypercoagulable state and full AC is indicated then it will be started and repeat TOBIAS would not be helpful in that case. If hypercoagulable work up is negative will consider another attempt at repeating TOBIAS as per Cardio. Date of Discharge: 01/09/17 Minutes to complete discharge: 40 Discharge Summary Reason For Visit: CVA Current Active Problems CVA (cerebral vascular accident) (Acute) Diabetes (Chronic) ESRD (end stage renal disease) (Chronic) Hypertension (Chronic) Paresthesias in left hand (Chronic) Condition: Guarded - Instructions Diet, Activity, Other Instructions: Please see your primary care physician in 1 week. Follow up with your cardiology in 1 week. Follow up with your neurologist in 2 weeks. Follow up with hematology (Dr. Rae) in 1 week. Take your medications as directed. If you have worsening symptoms, please call your doctor. If there is an emergency, visit your nearest emergency department. Referrals: Simone Faye MD [Staff Physician] - 2 Weeks Dante Munoz MD [Staff Physician] - 1 Week Juanjo Rae MD [Staff Physician] - 1 Week Disposition: HOME - Home Medications Comprehensive Discharge Medication List: Ambulatory Orders Albuterol Sulfate Inhaler - [Ventolin HFA Inhaler -] 2 inh PO BID PRN 08/03/16 Atorvastatin Ca [Lipitor] 80 mg PO HS 08/03/16 Brimonidine Tartrate/Timolol [Combigan 0.2%-0.5% Eye Drops] 2 drop OU DAILY 01/10 Clonazepam [Klonopin -] 0.5 mg PO BID 08/03/16 Furosemide [Lasix] 40 mg PO BID 08/03/16 Lidocaine/Prilocaine Cream [Lidocaine-Prilocaine Cream -] 1 applic TP PRN PRN Mometasone/Formoterol [Dulera 100 Mcg/5 Mcg Inhaler] 2 inh IH BID PRN 08/03/16 Sennosides [Senna] 2 tab PO DAILY 08/03/16 Clopidogrel Bisulfate [Plavix -] 75 mg PO DAILY 08/26/16 Aspirin Coated [Ecotrin -] 325 mg PO DAILY 11/07/16 Bupropion HCl [Wellbutrin Xl -] 300 mg PO DAILY #30 tab.sr.24h 12/22/16 Topiramate [Topamax] 50 mg PO BID 01/02/17 Amlodipine Besylate [Norvasc -] 10 mg PO DAILY #30 tablet 01/09/17 Bacitracin - [Bacitracin Topical Ointment -] 1 applic TP DAILY #1 tube 01/09/17 Insulin Glargine,Hum.rec.anlog [Lantus (nf)] 10 units SQ HS #30 vial 01/09/17 Insulin Sliding Scale [Novolog Vial Sliding Scale -] See Protocol SQ ACHS #30 pen 01/09/17 Pantoprazole Sodium [Protonix -] 40 mg PO DAILY #30 tab 01/09/17 This patient is new to me today: No Emergency Visit: Yes ED Registration Date: 01/03/17 Care time: The patient presented to the Emergency Department on the above date and was hospitalized for further evaluation of their emergent condition. Critical Care patient: No - Discharge Referral Referred to [facility] No
[2017-01-09] MEDS ORDERED: INSULIN (NOVOLOG) ASPART 100 UNITS/ML 10ML VIAL ONE (23:29)
[2017-01-09] MEDS: INSULIN DETEMIR 100 UNITS/ML MDV SQ SCH (23:37)
[2017-01-09] MEDS: ATORVASTATIN CA 80 MG TABLET (FP) PO SCH (23:37)
[2017-01-10] MEDS: INSULIN SLIDING SCALE (NOVOLOG) 1 VIAL SQ SCH ×4 (06:50→22:16)
[2017-01-10] MEDS: FUROSEMIDE 40 MG TABLET (FP) PO SCH ×2 (06:50→13:22)
--- NOTE | 2017-01-10 08:16 | PN ---
Physical Exam: SUBJECTIVE: Patient seen and examined. No acute events overnight. She said she is ready to go home today, offering no new complaints. She denies headache, sob , chest pain, abdominal pain. OBJECTIVE: Vital Signs Period Temp Pulse Resp BP Sys/[place] Pulse Ox Last 24 Hr 98.1 F-98.6 F 70-100 18-18 97-175/59-103 90-90 GENERAL: Awake, alert, and fully oriented, in no acute distress. HEAD: Normal with no signs of trauma. EYES: Left eye: 1mm minimally reactive, Right eye: 2mm minimally reactive. Not able to follow fingers with eyes. NOSE, THROAT: oropharynx clear without exudates. Moist mucous membranes. NECK: Normal range of motion, supple without lymphadenopathy, JVD, or masses. LUNGS: Breath sounds equal, clear to auscultation bilaterally. No wheezes, and no crackles. No accessory muscle use. HEART: Regular rate and rhythm, normal S1 and S2 without murmur, rub or gallop. ABDOMEN: obese, soft, nontender, not distended, normoactive bowel sounds, no guarding, no rebound, no masses. No hepatomegaly or splenomegaly. MUSCULOSKELETAL: Normal range of motion at all joints. No bony deformities or tenderness. No CVA tenderness. UPPER EXTREMITIES: Tenderness to right arm at site of AVF. bruit over AVF. No erythema/warmth. 4/5 weakness on RUE and RLE including shoulder shrug, should abduction, bicepts, tricepts, and wrist flexion and extension. 3/5 dorsiflexion and plantar flextion. 5/5 LUE, LLE. 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 4 digits on right foot. 1 cm serosanguinous right foot ulcerated lesion distal to great toe at sole of feet. NEURO: Left eye blindness.-No facial asymmetry. Laboratory Results - last 24 hr 01/07/17 01/09/17 01/09/17 10:20 11:20 16:38 Func Antithrombin III 90 POC Glucometer 179 233 01/09/17 01/10/17 23:14 06:48 Func Antithrombin III POC Glucometer 182 151 Active Medications Generic Name Dose Route Start Last Admin Trade Name Freq PRN Reason Stop Dose Admin Albuterol Sulfate 2 puff 01/06/17 16:25 Ventolin Hfa Inhaler - IH Q12H PRN ASTHMA Amlodipine Besylate 10 mg 01/08/17 10:00 01/09/17 10:21 Norvasc - PO 10 mg DAILY MANDO Administration Aspirin 81 mg 01/07/17 10:00 01/09/17 10:22 Ecotrin - PO 81 mg DAILY MANDO Administration Atorvastatin Calcium 80 mg 01/06/17 22:00 01/09/17 23:37 Lipitor - PO 80 mg HS MANDO Administration Bacitracin 1 applic 01/07/17 10:00 01/09/17 11:25 Bacitracin - TP Not Given DAILY MANDO Brimonidine Tartrate 2 drop 01/07/17 10:00 01/09/17 10:23 Alphagan 0.2% - OU Not Given DAILY MANDO Budesonide/Formoterol Fumarate 2 puff 01/06/17 16:25 Symbicort 80/4.5mcg - IH 01/06/17 16:26 ONCE ONE Bupropion HCl 300 mg 01/07/17 10:00 01/09/17 10:21 Wellbutrin Xl - PO 300 mg DAILY MANDO Administration Clonazepam 0.5 mg 01/06/17 22:00 01/09/17 23:37 Klonopin - PO 0.5 mg BID MANDO Administration Clopidogrel Bisulfate 75 mg 01/07/17 10:00 01/09/17 10:21 Plavix - PO 75 mg DAILY MANDO Administration Furosemide 40 mg 01/07/17 06:00 01/10/17 06:50 Lasix - PO 40 mg BIDLASIX MANDO Administration Insulin Aspart 1 vial 01/06/17 16:30 01/10/17 06:50 Novolog Vial Sliding Scale - SQ 2 units ACHS MANDO Administration Protocol Insulin Detemir 7 units 01/06/17 22:00 01/09/17 23:37 Levemir Vial SQ 7 units HS MANDO Administration Lidocaine/Prilocaine 1 applic 01/06/17 16:25 Emla - TP PRN PRN PAIN Ondansetron HCl 4 mg 01/06/17 16:25 Zofran - PO DAILY PRN NAUSEA Pantoprazole Sodium 40 mg 01/07/17 10:00 01/09/17 10:20 Protonix - PO 40 mg DAILY MANDO Administration Ranitidine HCl 150 mg 01/07/17 10:00 01/09/17 10:21 Zantac - PO 150 mg DAILY MANDO Administration Senna 2 tab 01/07/17 10:00 01/09/17 10:22 Senna - PO Not Given DAILY MANDO Timolol Maleate 2 drop 01/07/17 10:00 01/09/17 10:24 Timoptic 0.5% OU Not Given DAILY MANDO Topiramate 50 mg 01/06/17 22:00 01/09/17 23:37 Topamax - PO 50 mg BID MANDO Administration ASSESSMENT/PLAN: #Acute vs. Subacute CVA -Moderate to large acute/subacute infarct in the left frontal lobe. Other acute/ subacute infarcts are present in the left frontal lobe, anterior cerebral artery territory, watershed region as well as in the left parietal lobe. -Repeat Head CT reviewed: no change -Neuro checks -Echo with no thrombus - US (last admission) with right carotid occlusion. -Continue Wellbutrin XR 300 mg qd as per neuro -TOBIAS cancelled because of seizure-like activity prior to procedure. during initiation of anesthesia she was noted to have seizure like activity with stiffness of R arm and associated rhythmic movements as well as rhythmic movements of eyes. This was immediately after etomidate. She was then given propofol and seizure like activity stopped. -Requires further evaluation for causes of stroke. -Observed off AEDs, no new episodes -outpatient neuro follow up -FU EEG outpatient - F/U hypercoaguable tests outpatient with Heme -continue BP meds as per Neuro. -continue Plavix, ASA #ESRD -US doppler reviewed. -focal venous stenosis at AVF -s/p venogram/venplasty #DM -ISS -Levemir 7 Units HS #HTN -cont Coreg to 25mg -Stopped Hydralazine -cont Norvasc 10 #Chronic Right foot ulcer -Chronic ulceration right plantar hallux with underlying chronic osteomyelits but no acute infection as per Podiatry -Apply betadine sterile dressing daily #FEN: -Not on IV fluids -WNL -Renal diet Dispo: discharge order in. awaiting placement Visit type - Emergency Visit Emergency Visit: Yes ED Registration Date: 01/03/17 Care time: The patient presented to the Emergency Department on the above date and was hospitalized for further evaluation of their emergent condition. - New Patient This patient is new to me today: No - Critical Care Critical Care patient: No
[2017-01-10] MEDS ORDERED: PT OWN MED DRAWER 7, Y5N ONE ×2 (09:25→21:30)
--- NOTE | 2017-01-10 09:25 | PN ---
Progress Note, Physician Chief Complaint: no distress TELE: NSR, no evidence AF - Current Medication List Current Medications: Active Medications Albuterol Sulfate (Ventolin Hfa Inhaler -) 2 puff IH Q12H PRN PRN Reason: ASTHMA Amlodipine Besylate (Norvasc -) 10 mg PO DAILY [facility] Last Admin: 01/09/17 10:21 Dose: 10 mg Aspirin (Ecotrin -) 81 mg PO DAILY [facility] Last Admin: 01/09/17 10:22 Dose: 81 mg Atorvastatin Calcium (Lipitor -) 80 mg PO HS [facility] Last Admin: 01/09/17 23:37 Dose: 80 mg Bacitracin (Bacitracin -) 1 applic TP DAILY [facility] Last Admin: 01/09/17 11:25 Dose: Not Given Brimonidine Tartrate (Alphagan 0.2% -) 2 drop OU DAILY [facility] Last Admin: 01/09/17 10:23 Dose: Not Given Budesonide/Formoterol Fumarate (Symbicort 80/4.5mcg -) 2 puff IH ONCE ONE Stop: 01/06/17 16:26 Bupropion HCl (Wellbutrin Xl -) 300 mg PO DAILY [facility] Last Admin: 01/09/17 10:21 Dose: 300 mg Clonazepam (Klonopin -) 0.5 mg PO BID [facility] Last Admin: 01/09/17 23:37 Dose: 0.5 mg Clopidogrel Bisulfate (Plavix -) 75 mg PO DAILY [facility] Last Admin: 01/09/17 10:21 Dose: 75 mg Furosemide (Lasix -) 40 mg PO BIDLASIX [facility] Last Admin: 01/10/17 06:50 Dose: 40 mg Insulin Aspart (Novolog Vial Sliding Scale -) 1 vial SQ [facility] PRN Reason: Protocol Last Admin: 01/10/17 06:50 Dose: 2 units Insulin Detemir (Levemir Vial) 7 units SQ HS [facility] Last Admin: 01/09/17 23:37 Dose: 7 units Lidocaine/Prilocaine (Emla -) 1 applic TP PRN PRN PRN Reason: PAIN Ondansetron HCl (Zofran -) 4 mg PO DAILY PRN PRN Reason: NAUSEA Pantoprazole Sodium (Protonix -) 40 mg PO DAILY [facility] Last Admin: 01/09/17 10:20 Dose: 40 mg Ranitidine HCl (Zantac -) 150 mg PO DAILY [facility] Last Admin: 01/09/17 10:21 Dose: 150 mg Senna (Senna -) 2 tab PO DAILY [facility] Last Admin: 01/09/17 10:22 Dose: Not Given Timolol Maleate (Timoptic 0.5%) 2 drop OU DAILY [facility] Last Admin: 01/09/17 10:24 Dose: Not Given Topiramate (Topamax -) 50 mg PO BID [facility] Last Admin: 01/09/17 23:37 Dose: 50 mg - Objective Vital Signs: Vital Signs Temperature 98.2 F 01/10/17 05:20 Pulse Rate 86 01/10/17 05:20 Respiratory Rate 18 01/10/17 05:20 Blood Pressure 134/75 01/10/17 05:20 O2 Sat by Pulse Oximetry (%) 90 L 01/09/17 22:00 Constitutional: Yes: Calm Cardiovascular: Yes: Regular Rate and Rhythm Respiratory: Yes: CTA Bilaterally Gastrointestinal: Yes: Soft Edema: No Neurological: Yes: Oriented ...Motor Strength: WNL Labs: CBC, BMP 01/08/17 08:25 01/09/17 06:25 INR, PTT INR 1.05 (0.82-1.09) 01/03/17 07:35 - ....Imaging EKG: Image Reviewed Assessment/Plan Assessment/Plan IMP ESRD Multiple b/l strokes 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 HTN REC: Cont ASA and Plavix as per Neuro reccs F/up hypercoagulable work up and heme if there is an indication to initiate full AC F/up EEG HTN control but avoid hypotensive episodes especially during HD To be considered for ILR implantation as outpatient for prison monitoring for occult arrhythmia At this point there has been no evidence found from a cardiac standpoint to initiate full AC (aortic atheroma which is treated with anti-platelets and statins, no recorded arrythmias, no thrombus or pfo on TOBIAS 2014) Repeat TOBIAS was attempted but pt was noted to have seizure like activity during induction of anesthesia-unknown if true seizure or not, EEG was done and is pending. Will await heme work up, if there is evidence of a hypercoagulable state and full AC is indicated then it will be started and repeat TOBIAS would not be helpful in that case. If hypercoagulable work up is negative, will consider another attempt at repeating TOBIAS (provided no seizures and if seizures that treatment is started). Pt does not need to remain in hospital for repeat TOBIAS to be done.
[2017-01-10] MEDS: amLODIPine BESYLATE 10 MG TABLET (FP) PO SCH (09:29)
[2017-01-10] MEDS: RANITIDINE HCL 150 MG TABLET (FP) PO SCH (09:29)
[2017-01-10] MEDS: TIMOLOL 0.5% OPHTHALMIC SOL 5 ML BOTTLE OU SCH (09:29)
[2017-01-10] MEDS: SENNOSIDES 8.6MG TABLET (FP) PO SCH (09:29)
[2017-01-10] MEDS: BRIMONIDINE TARTRATE 0.2% OPHTHALMIC 5 ML BOTTLE OU SCH (09:29)
[2017-01-10] MEDS: TOPIRAMATE 25 MG TABLET (FP) PO SCH ×2 (09:29→21:31)
[2017-01-10] MEDS: ASPIRIN COATED 81 MG TABLET.EC PO SCH (09:29)
[2017-01-10] MEDS: clonazePAM 0.5 MG TABLET PO SCH ×2 (09:29→21:31)
[2017-01-10] MEDS: CLOPIDOGREL BISULFATE 75 MG TABLET (FP) PO SCH (09:29)
[2017-01-10] MEDS: BACITRACIN 15 GM TUBE TOPICAL OINTMENT TP SCH (09:29)
[2017-01-10] MEDS: PANTOPRAZOLE 40 MG TABLET (FP) PO SCH (09:29)
--- NOTE | 2017-01-10 14:41 | PATH ---
Surgical Pathology Report Patient Name: LEONIE DANG [facility]. Rec. #: [id number] /Age/Gender: 1965 (Age: 51) / F Account: [id number] Location: [facility] P[facility]/ADOL Taken: 01/07/2017 Received: 01/09/2017 Reported: 01/10/2017 Physicians: Ericka Dawson M.D. Specimen(s) Received PERIPHERAL BLOOD Clinical History Unexplained arterial thrombocytosis in a young 51-year-old, rule out PNH, ET Final Diagnosis PERIPHERAL BLOOD: FLOW CYTOMETRY performed and interpreted at [facility], [place], [place] ([id number]) shows the following: INTERPRETATION: No phenotypic evidence of Paroxysmal Nocturnal Hemoglobinuria (PNH). Phenotype: Immunophenotypic analysis was performed using gating antibodies CD45, GPH-A, CD15, CD14, CD24, CD64, CD59 as well as Fluorescent Aerolysin (FLAER). Red Blood Cells: No evidence of decreased or absent CD59 expression. Monocytes: No evidence of decreased or absent expression of FLAER. Granulocytes: No evidence of decreased or absent expression of FLAER. Comment: See Emerge report for additional details. Molecular studies are pending, and a report will follow. Electronically Signed Enrique Mcclellan M.D. Addendum Reported: 01/12/2017 Addendum Diagnosis PERIPHERAL BLOOD: Molecular Pathology Report received from [facility] in [place], [place] ([id number]) shows the following: JAK2 [id number] MUTATION ANALYSIS BY PCR RESULTS: Only the wild-type JAK2 sequence was detected. INTERPRETATION: Negative for JAK2 (V617F) mutation Enrique Mcclellan M.D. Gross Description Received are 2 lavender top tubes of peripheral blood which are sent to [email or web address]. DL/01/09/2017 saudi/01/09/2017
--- NOTE | 2017-01-10 15:35 | PN ---
Progress Note, Physician History of Present Illness: Pt seen and examined at bedside. She is awake and alert. She is eager to go home. - Current Medication List Current Medications: Active Medications Albuterol Sulfate (Ventolin Hfa Inhaler -) 2 puff IH Q12H PRN PRN Reason: ASTHMA Amlodipine Besylate (Norvasc -) 10 mg PO DAILY [facility] Last Admin: 01/10/17 09:29 Dose: 10 mg Aspirin (Ecotrin -) 81 mg PO DAILY [facility] Last Admin: 01/10/17 09:29 Dose: 81 mg Atorvastatin Calcium (Lipitor -) 80 mg PO HS [facility] Last Admin: 01/09/17 23:37 Dose: 80 mg Bacitracin (Bacitracin -) 1 applic TP DAILY [facility] Last Admin: 01/10/17 09:29 Dose: Not Given Brimonidine Tartrate (Alphagan 0.2% -) 2 drop OU DAILY [facility] Last Admin: 01/10/17 09:29 Dose: Not Given Budesonide/Formoterol Fumarate (Symbicort 80/4.5mcg -) 2 puff IH ONCE ONE Stop: 01/06/17 16:26 Bupropion HCl (Wellbutrin Xl -) 300 mg PO DAILY [facility] Last Admin: 01/10/17 09:29 Dose: 300 mg Clonazepam (Klonopin -) 0.5 mg PO BID [facility] Last Admin: 01/10/17 09:29 Dose: 0.5 mg Clopidogrel Bisulfate (Plavix -) 75 mg PO DAILY [facility] Last Admin: 01/10/17 09:29 Dose: 75 mg Furosemide (Lasix -) 40 mg PO BIDLASIX [facility] Last Admin: 01/10/17 13:22 Dose: 40 mg Insulin Aspart (Novolog Vial Sliding Scale -) 1 vial SQ ACHS [facility] PRN Reason: Protocol Last Admin: 01/10/17 11:27 Dose: Not Given Insulin Detemir (Levemir Vial) 7 units SQ HS [facility] Last Admin: 01/09/17 23:37 Dose: 7 units Lidocaine/Prilocaine (Emla -) 1 applic TP PRN PRN PRN Reason: PAIN Ondansetron HCl (Zofran -) 4 mg PO DAILY PRN PRN Reason: NAUSEA Pantoprazole Sodium (Protonix -) 40 mg PO DAILY [facility] Last Admin: 01/10/17 09:29 Dose: 40 mg Ranitidine HCl (Zantac -) 150 mg PO DAILY [facility] Last Admin: 01/10/17 09:29 Dose: 150 mg Senna (Senna -) 2 tab PO DAILY [facility] Last Admin: 01/10/17 09:29 Dose: Not Given Timolol Maleate (Timoptic 0.5%) 2 drop OU DAILY [facility] Last Admin: 01/10/17 09:29 Dose: Not Given Topiramate (Topamax -) 50 mg PO BID [facility] Last Admin: 01/10/17 09:29 Dose: 50 mg - Objective Vital Signs: Vital Signs Temperature 98.6 F 01/10/17 14:24 Pulse Rate 87 01/10/17 14:24 Respiratory Rate 16 01/10/17 14:24 Blood Pressure 128/76 01/10/17 14:24 O2 Sat by Pulse Oximetry (%) 100 01/10/17 09:00 Constitutional: Yes: Calm Eyes: Yes: Conjunctiva Clear HENT: Yes: Atraumatic Neck: Yes: Supple Cardiovascular: Yes: S1, S2 Respiratory: Yes: CTA Bilaterally Gastrointestinal: Yes: Soft, Abdomen, Obese Genitourinary: Yes: WNL Edema: Yes Edema: LLE: Trace, RLE: Trace Neurological: Yes: Oriented Labs: CBC, BMP 01/08/17 08:25 01/09/17 06:25 INR, PTT INR 1.05 (0.82-1.09) 01/03/17 07:35 Problem List - Problems (1) CVA (cerebral vascular accident) Code(s): I63.9 - CEREBRAL INFARCTION, UNSPECIFIED (2) Diabetes Code(s): E11.9 - TYPE 2 DIABETES MELLITUS WITHOUT COMPLICATIONS Qualifiers: Diabetes mellitus type: type 2 Diabetes mellitus complication status: with kidney complications Diabetes mellitus complication detail: with chronic kidney disease Diabetes mellitus exterminator insulin use: with fpc use Chronic kidney disease stage: on chronic dialysis Qualified Code(s): E11.22 - Type 2 diabetes mellitus with diabetic chronic kidney disease ; E11.22 - Type 2 diabetes mellitus with diabetic chronic kidney disease; E11.22 - Type 2 diabetes mellitus with diabetic chronic kidney disease; E11.22 - Type 2 diabetes mellitus with diabetic chronic kidney disease; E11.22 - Type 2 diabetes mellitus with diabetic chronic kidney disease; N18.1 - Chronic kidney disease, stage 1; N18.1 - Chronic kidney disease, stage 1; Z79.4 - technician terminal and repeater (current) use of insulin; Z79.4 - MCC (current) use of insulin; Z79.4 - technician terminal and repeater (current) use of insulin; Z79.4 - technician terminal and repeater (current) use of insulin (3) ESRD (end stage renal disease) Code(s): N18.6 - END STAGE RENAL DISEASE (4) Hypertension Code(s): I10 - ESSENTIAL (PRIMARY) HYPERTENSION Qualifiers: Hypertension type: essential hypertension Qualified Code(s): I10 - Essential (primary) hypertension; I10 - Essential (primary) hypertension; I10 - Essential (primary) hypertension Assessment/Plan Current Medications Generic Name Dose Route Start Last Admin Trade Name Freq PRN Reason Stop Dose Admin Albuterol Sulfate 2 puff 01/06/17 16:25 Ventolin Hfa Inhaler - IH Q12H PRN ASTHMA Amlodipine Besylate 10 mg 01/08/17 10:00 01/10/17 09:29 Norvasc - PO 10 mg DAILY MANDO Administration Aspirin 81 mg 01/07/17 10:00 01/10/17 09:29 Ecotrin - PO 81 mg DAILY MANDO Administration Atorvastatin Calcium 80 mg 01/06/17 22:00 01/09/17 23:37 Lipitor - PO 80 mg HS MANDO Administration Bacitracin 1 applic 01/07/17 10:00 01/10/17 09:29 Bacitracin - TP Not Given DAILY [facility] Brimonidine Tartrate 2 drop 01/07/17 10:00 01/10/17 09:29 Alphagan 0.2% - OU Not Given DAILY [facility] Budesonide/Formoterol Fumarate 2 puff 01/06/17 16:25 Symbicort 80/4.5mcg - IH 01/06/17 16:26 ONCE ONE Bupropion HCl 300 mg 01/07/17 10:00 01/10/17 09:29 Wellbutrin Xl - PO 300 mg DAILY MANDO Administration Clonazepam 0.5 mg 01/06/17 22:00 01/10/17 09:29 Klonopin - PO 0.5 mg BID MANDO Administration Clopidogrel Bisulfate 75 mg 01/07/17 10:00 01/10/17 09:29 Plavix - PO 75 mg DAILY MANDO Administration Furosemide 40 mg 01/07/17 06:00 01/10/17 13:22 Lasix - PO 40 mg BIDLASIX MANDO Administration Insulin Aspart 1 vial 01/06/17 16:30 01/10/17 11:27 Novolog Vial Sliding Scale - SQ Not Given ACHS [facility] Protocol Insulin Detemir 7 units 01/06/17 22:00 01/09/17 23:37 Levemir Vial SQ 7 units HS MANDO Administration Lidocaine/Prilocaine 1 applic 01/06/17 16:25 Emla - TP PRN PRN PAIN Ondansetron HCl 4 mg 01/06/17 16:25 Zofran - PO DAILY PRN NAUSEA Pantoprazole Sodium 40 mg 01/07/17 10:00 01/10/17 09:29 Protonix - PO 40 mg DAILY MANDO Administration Ranitidine HCl 150 mg 01/07/17 10:00 01/10/17 09:29 Zantac - PO 150 mg DAILY MANDO Administration Senna 2 tab 01/07/17 10:00 01/10/17 09:29 Senna - PO Not Given DAILY [facility] Timolol Maleate 2 drop 01/07/17 10:00 01/10/17 09:29 Timoptic 0.5% OU Not Given DAILY MANDO Topiramate 50 mg 01/06/17 22:00 01/10/17 09:29 Topamax - PO 50 mg BID MANDO Administration Impression 1. ESRD 2. CVA 3. DM 4. HLD 5. HTN 6. anemia 7. anxiety 8. infected right foot ulcer 9. possible seizure Plan - pt has HD set up as outpt tomorrow - will need neuro follow up - cont current meds - hypercoag workup needs to be followed up - pt/rehab - outpt HD: [facility] 2 k bath, 4 hrs, 116.5 kg, 1000 epogen, hectorol 4 mcg, venofer, [address] Sharma
--- NOTE | 2017-01-10 16:56 | PN ---
Progress Note (short form) - Note Progress Note: Patient seen and examined. Patient not being discharged today. O/E: Constitutional: Yes: Calm Eyes: Yes: WNL HENT: Yes: Atraumatic, Normocephalic Neck: Yes: Supple, Trachea Midline Cardiovascular: Yes: Regular Rate and Rhythm Respiratory: Yes: Regular, CTA Bilaterally Gastrointestinal: Yes: Normal Bowel Sounds, Soft Edema: No Neurological: Yes: Alert, Oriented Temp Pulse Resp BP Pulse Ox 98.2 F 82 18 146/86 96 01/06/17 09:00 01/06/17 09:00 01/06/17 09:00 01/06/17 09:00 01/06/17 09:00 CBC, BMP 01/06/17 05:35 01/06/17 05:35 Current Medications Generic Name Dose Route Start Last Admin Trade Name Freq PRN Reason Stop Dose Admin Albuterol Sulfate 2 puff 01/02/17 15:21 Ventolin Hfa Inhaler - IH Q12H PRN ASTHMA Amlodipine Besylate 5 mg 01/04/17 13:45 01/06/17 09:00 Norvasc - PO 5 mg DAILY [facility]O Administration Aspirin 81 mg 01/03/17 10:00 01/06/17 09:00 Ecotrin - PO 81 mg DAILY [facility]ANDO Administration Atorvastatin Calcium 80 mg 01/02/17 22:00 01/05/17 22:06 Lipitor - PO 80 mg HS MANDO Administration Bacitracin 1 applic 01/06/17 14:15 Bacitracin - TP DAILY [facility] Brimonidine Tartrate 2 drop 01/03/17 10:00 01/06/17 09:00 Alphagan 0.2% - OU Not Given DAILY [facility]O Bupropion HCl 300 mg 01/03/17 10:00 01/06/17 09:00 Wellbutrin Xl - PO 300 mg DAILY [facility] Administration Carvedilol 12.5 mg 01/02/17 22:00 01/06/17 09:00 Coreg - PO 12.5 mg BID [facility]ANDO Administration Clonazepam 0.5 mg 01/02/17 22:00 01/06/17 09:00 Klonopin - PO 0.5 mg BID [facility]ANDO Administration Clopidogrel Bisulfate 75 mg 01/03/17 10:00 01/06/17 09:00 Plavix - PO 75 mg DAILY [facility] Administration Furosemide 40 mg 01/03/17 06:00 01/06/17 06:43 Lasix - PO 40 mg BIDLASIX [facility]ANDO Administration Hydralazine HCl 50 mg 01/03/17 22:00 01/06/17 06:43 Apresoline - PO 50 mg TID [facility]O Administration Insulin Aspart 1 vial 01/02/17 16:30 01/06/17 11:26 Novolog Vial Sliding Scale - SQ Not Given ACHS [facility] Protocol Insulin Detemir 7 units 01/02/17 22:00 01/05/17 22:06 Levemir Vial SQ 7 units HS [facility] Administration Lidocaine/Prilocaine 1 applic 01/02/17 15:21 Emla - TP PRN PRN PAIN Ondansetron HCl 4 mg 01/02/17 15:21 Zofran - PO DAILY PRN NAUSEA Pantoprazole Sodium 40 mg 01/03/17 10:00 01/06/17 09:00 Protonix - PO 40 mg DAILY [facility] Administration Ranitidine HCl 150 mg 01/03/17 10:00 01/06/17 09:00 Zantac - PO 150 mg DAILY [facility] Administration Senna 2 tab 01/03/17 10:00 01/06/17 09:00 Senna - PO 2 tab DAILY [facility] Administration Timolol Maleate 2 drop 01/03/17 10:00 01/06/17 09:00 Timoptic 0.5% OU Not Given DAILY [facility] Topiramate 50 mg 01/02/17 22:00 01/06/17 09:00 Topamax - PO 50 mg BID [facility] Administration Patient with multiple vascular problems , now with acute stroke. Likely etiology is her underlying vascular problems, in absence of significant change in SUPERVISOR BINDERY, ASA and Plavix seem to be treatment advised by neurology. Will await thrombophilia work up to see if alternative therapy would be proposed. HyperCoag w/u thus far: PNH negative AT III normal Awaiting: APLS PT gene MTHFR JAK2 FV leiden if discharged , will need to follow up. Problem List - Problems (1) CVA (cerebral vascular accident) Code(s): I63.9 - CEREBRAL INFARCTION, UNSPECIFIED (2) ESRD (end stage renal disease) Code(s): N18.6 - END STAGE RENAL DISEASE (3) Anemia Code(s): D64.9 - ANEMIA, UNSPECIFIED Qualifiers: Chronic kidney disease stage: on chronic dialysis
--- NOTE | 2017-01-10 18:09 | PN ---
Teaching Attending Note Name of Resident: Manuel Rushing ATTENDING PHYSICIAN STATEMENT I saw and evaluated the patient. I reviewed the resident's note and discussed the case with the resident. I agree with the resident's findings and plan as documented. SUBJECTIVE: Patient has no complaints and wants to go home. OBJECTIVE: Vital Signs Period Temp Pulse Resp BP Sys/[place] Pulse Ox Last 24 Hr 98.1 F-98.6 F 84-100 16-18 97-140/59-87 90-100 HEART: S1S2, RRR LUNGS: Clear ABDOMEN: Obese, soft, non-tender, non-distended, normal BS EXTREMITIES: No edema Current Medications Generic Name Dose Route Start Last Admin Trade Name Freq PRN Reason Stop Dose Admin Albuterol Sulfate 2 puff 01/06/17 16:25 Ventolin Hfa Inhaler - IH Q12H PRN ASTHMA Amlodipine Besylate 10 mg 01/08/17 10:00 01/10/17 09:29 Norvasc - PO 10 mg DAILY [facility] Administration Aspirin 81 mg 01/07/17 10:00 01/10/17 09:29 Ecotrin - PO 81 mg DAILY [facility] Administration Atorvastatin Calcium 80 mg 01/06/17 22:00 01/09/17 23:37 Lipitor - PO 80 mg HS [facility]O Administration Bacitracin 1 applic 01/07/17 10:00 01/10/17 09:29 Bacitracin - TP Not Given DAILY [facility] Brimonidine Tartrate 2 drop 01/07/17 10:00 01/10/17 09:29 Alphagan 0.2% - OU Not Given DAILY [facility] Budesonide/Formoterol Fumarate 2 puff 01/06/17 16:25 Symbicort 80/4.5mcg - IH 01/06/17 16:26 ONCE ONE Bupropion HCl 300 mg 01/07/17 10:00 01/10/17 09:29 Wellbutrin Xl - PO 300 mg DAILY [facility] Administration Clonazepam 0.5 mg 01/06/17 22:00 01/10/17 09:29 Klonopin - PO 0.5 mg BID [facility] Administration Clopidogrel Bisulfate 75 mg 01/07/17 10:00 01/10/17 09:29 Plavix - PO 75 mg DAILY [facility] Administration Furosemide 40 mg 01/07/17 06:00 01/10/17 13:22 Lasix - PO 40 mg BIDLASIX [facility] Administration Insulin Aspart 1 vial 01/06/17 16:30 01/10/17 17:35 Novolog Vial Sliding Scale - SQ 4 units ACHS M[facility]O Administration Protocol Insulin Detemir 7 units 01/06/17 22:00 01/09/17 23:37 Levemir Vial SQ 7 units HS [facility] Administration Lidocaine/Prilocaine 1 applic 01/06/17 16:25 Emla - TP PRN PRN PAIN Ondansetron HCl 4 mg 01/06/17 16:25 Zofran - PO DAILY PRN NAUSEA Pantoprazole Sodium 40 mg 01/07/17 10:00 01/10/17 09:29 Protonix - PO 40 mg DAILY [facility] Administration Ranitidine HCl 150 mg 01/07/17 10:00 01/10/17 09:29 Zantac - PO 150 mg DAILY [facility] Administration Senna 2 tab 01/07/17 10:00 01/10/17 09:29 Senna - PO Not Given DAILY [facility] Timolol Maleate 2 drop 01/07/17 10:00 01/10/17 09:29 Timoptic 0.5% OU Not Given DAILY [facility] Topiramate 50 mg 01/06/17 22:00 01/10/17 09:29 Topamax - PO 50 mg BID MANDO Administration ASSESSMENT AND PLAN: 1. 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 Type 2 DM with peripheral neuropathy - Continue Levemir, Novolog sliding scale 3. HTN - Continue Norvasc, Lasix 4. Hyperlipidemia - Continue Lipitor 5. ESRD - Continue HD 6. Anxiety disorder - Continue Wellbutrin, Klonopin 7. Disposition - Home with services vs [facility]
[2017-01-10] MEDS: ATORVASTATIN CA 80 MG TABLET (FP) PO SCH (21:31)
[2017-01-10] MEDS: INSULIN DETEMIR 100 UNITS/ML MDV SQ SCH (22:16)
[2017-01-11] MEDS: INSULIN SLIDING SCALE (NOVOLOG) 1 VIAL SQ SCH ×3 (06:08→16:42)
[2017-01-11] MEDS: FUROSEMIDE 40 MG TABLET (FP) PO SCH ×2 (06:08→14:40)
--- NOTE | 2017-01-11 08:14 | PN ---
Physical Exam: SUBJECTIVE: Patient seen and examined. No acute events overnight. Offers no new complaints. OBJECTIVE: Vital Signs Period Temp Pulse Resp BP Sys/[place] Pulse Ox Last 24 Hr 97.4 F-98.8 F 87-91 16-20 128-156/76-95 99-100 GENERAL: Awake, alert, and fully oriented, in no acute distress. HEAD: Normal with no signs of trauma. EYES: Left eye: 1mm minimally reactive, Right eye: 2mm minimally reactive. Not able to follow fingers with eyes. NOSE, THROAT: oropharynx clear without exudates. Moist mucous membranes. NECK: Normal range of motion, supple without lymphadenopathy, JVD, or masses. LUNGS: Breath sounds equal, clear to auscultation bilaterally. No wheezes, and no crackles. No accessory muscle use. HEART: Regular rate and rhythm, normal S1 and S2 without murmur, rub or gallop. ABDOMEN: obese, soft, nontender, not distended, normoactive bowel sounds, no guarding, no rebound, no masses. No hepatomegaly or splenomegaly. MUSCULOSKELETAL: Normal range of motion at all joints. No bony deformities or tenderness. No CVA tenderness. UPPER EXTREMITIES: Tenderness to right arm at site of AVF. bruit over AVF. No erythema/warmth. 4/5 weakness on RUE and RLE including shoulder shrug, should abduction, bicepts, tricepts, and wrist flexion and extension. 3/5 dorsiflexion and plantar flextion. 5/5 LUE, LLE. 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 4 digits on right foot. chronic 1 cm dry right foot ulcerated lesion distal to great toe at sole of feet. NEURO: Left eye blindness.-No facial asymmetry. Laboratory Results - last 24 hr 01/10/17 01/10/17 01/10/17 11:04 16:57 22:15 POC Glucometer 130 218 140 01/11/17 04:55 POC Glucometer 114 Active Medications Generic Name Dose Route Start Last Admin Trade Name Freq PRN Reason Stop Dose Admin Albuterol Sulfate 2 puff 01/06/17 16:25 Ventolin Hfa Inhaler - IH Q12H PRN ASTHMA Amlodipine Besylate 10 mg 01/08/17 10:00 01/10/17 09:29 Norvasc - PO 10 mg DAILY [facility] Administration Aspirin 81 mg 01/07/17 10:00 01/10/17 09:29 Ecotrin - PO 81 mg DAILY [facility]O Administration Atorvastatin Calcium 80 mg 01/06/17 22:00 01/10/17 21:31 Lipitor - PO 80 mg HS MANDO Administration Bacitracin 1 applic 01/07/17 10:00 01/10/17 09:29 Bacitracin - TP Not Given DAILY [facility] Brimonidine Tartrate 2 drop 01/07/17 10:00 01/10/17 09:29 Alphagan 0.2% - OU Not Given DAILY [facility] Bupropion HCl 300 mg 01/07/17 10:00 01/10/17 09:29 Wellbutrin Xl - PO 300 mg DAILY [facility] Administration Clonazepam 0.5 mg 01/06/17 22:00 01/10/17 21:31 Klonopin - PO 0.5 mg BID [facility] Administration Clopidogrel Bisulfate 75 mg 01/07/17 10:00 01/10/17 09:29 Plavix - PO 75 mg DAILY [facility] Administration Furosemide 40 mg 01/07/17 06:00 01/11/17 06:08 Lasix - PO Not Given BIDLASIX [facility] Insulin Aspart 1 vial 01/06/17 16:30 01/11/17 06:08 Novolog Vial Sliding Scale - SQ Not Given [facility] Protocol Insulin Detemir 7 units 01/06/17 22:00 01/10/17 22:16 Levemir Vial SQ 7 units HS [facility] Administration Lidocaine/Prilocaine 1 applic 01/06/17 16:25 Emla - TP PRN PRN PAIN Ondansetron HCl 4 mg 01/06/17 16:25 Zofran - PO DAILY PRN NAUSEA Pantoprazole Sodium 40 mg 01/07/17 10:00 01/10/17 09:29 Protonix - PO 40 mg DAILY [facility] Administration Ranitidine HCl 150 mg 01/07/17 10:00 01/10/17 09:29 Zantac - PO 150 mg DAILY [facility] Administration Senna 2 tab 01/07/17 10:00 01/10/17 09:29 Senna - PO Not Given DAILY [facility] Timolol Maleate 2 drop 01/07/17 10:00 01/10/17 09:29 Timoptic 0.5% OU Not Given DAILY [facility] Topiramate 50 mg 01/06/17 22:00 01/10/17 21:31 Topamax - PO 50 mg BID [facility] Administration ASSESSMENT/PLAN: #Acute vs. Subacute CVA -Moderate to large acute/subacute infarct in the left frontal lobe. Other acute/ subacute infarcts are present in the left frontal lobe, anterior cerebral artery territory, watershed region as well as in the left parietal lobe. -Repeat Head CT reviewed: no change -Neuro checks -Echo with no thrombus - US (last admission) with right carotid occlusion. -Continue Wellbutrin XR 300 mg qd as per neuro -TOBIAS cancelled because of seizure-like activity prior to procedure. during initiation of anesthesia she was noted to have seizure like activity with stiffness of R arm and associated rhythmic movements as well as rhythmic movements of eyes. This was immediately after etomidate. She was then given propofol and seizure like activity stopped. -Requires further evaluation for causes of stroke. -Observed off AEDs, no new episodes -outpatient neuro follow up -FU EEG outpatient - F/U hypercoaguable tests outpatient with Heme -continue BP meds as per Neuro. -continue Plavix, ASA #ESRD -US doppler reviewed. -focal venous stenosis at AVF -s/p venogram/venplasty -outpatient HD scheduled for today #DM -ISS -Levemir 7 Units HS #HTN -cont Coreg to 25mg -Stopped Hydralazine -cont Norvasc 10 #Chronic Right foot ulcer -Chronic ulceration right plantar hallux with underlying chronic osteomyelits but no acute infection as per Podiatry -Apply betadine sterile dressing daily #FEN: -Not on IV fluids -WNL -Renal diet Dispo: discharge order in. waiting for PT evaluation and placement
--- NOTE | 2017-01-11 09:02 | PN ---
Progress Note, Physician Chief Complaint: no new complaints History of Present Illness: Sinus on tele w/ rare VPCs - Current Medication List Current Medications: Active Medications Albuterol Sulfate (Ventolin Hfa Inhaler -) 2 puff IH Q12H PRN PRN Reason: ASTHMA Amlodipine Besylate (Norvasc -) 10 mg PO DAILY [facility] Last Admin: 01/10/17 09:29 Dose: 10 mg Aspirin (Ecotrin -) 81 mg PO DAILY [facility] Last Admin: 01/10/17 09:29 Dose: 81 mg Atorvastatin Calcium (Lipitor -) 80 mg PO HS [facility] Last Admin: 01/10/17 21:31 Dose: 80 mg Bacitracin (Bacitracin -) 1 applic TP DAILY [facility] Last Admin: 01/10/17 09:29 Dose: Not Given Brimonidine Tartrate (Alphagan 0.2% -) 2 drop OU DAILY [facility] Last Admin: 01/10/17 09:29 Dose: Not Given Bupropion HCl (Wellbutrin Xl -) 300 mg PO DAILY [facility] Last Admin: 01/10/17 09:29 Dose: 300 mg Clonazepam (Klonopin -) 0.5 mg PO BID [facility] Last Admin: 01/10/17 21:31 Dose: 0.5 mg Clopidogrel Bisulfate (Plavix -) 75 mg PO DAILY [facility] Last Admin: 01/10/17 09:29 Dose: 75 mg Furosemide (Lasix -) 40 mg PO BIDLASIX [facility] Last Admin: 01/11/17 06:08 Dose: Not Given Insulin Aspart (Novolog Vial Sliding Scale -) 1 vial SQ [facility] PRN Reason: Protocol Last Admin: 01/11/17 06:08 Dose: Not Given Insulin Detemir (Levemir Vial) 7 units SQ HS [facility] Last Admin: 01/10/17 22:16 Dose: 7 units Lidocaine/Prilocaine (Emla -) 1 applic TP PRN PRN PRN Reason: PAIN Ondansetron HCl (Zofran -) 4 mg PO DAILY PRN PRN Reason: NAUSEA Pantoprazole Sodium (Protonix -) 40 mg PO DAILY [facility] Last Admin: 01/10/17 09:29 Dose: 40 mg Ranitidine HCl (Zantac -) 150 mg PO DAILY [facility] Last Admin: 01/10/17 09:29 Dose: 150 mg Senna (Senna -) 2 tab PO DAILY [facility] Last Admin: 01/10/17 09:29 Dose: Not Given Timolol Maleate (Timoptic 0.5%) 2 drop OU DAILY [facility] Last Admin: 01/10/17 09:29 Dose: Not Given Topiramate (Topamax -) 50 mg PO BID [facility] Last Admin: 01/10/17 21:31 Dose: 50 mg - Objective Vital Signs: Vital Signs Temperature 98.8 F 01/11/17 06:00 Pulse Rate 87 01/11/17 06:00 Respiratory Rate 20 01/11/17 06:00 Blood Pressure 152/85 01/11/17 06:00 O2 Sat by Pulse Oximetry (%) 99 01/10/17 21:00 Constitutional: Yes: No Distress Cardiovascular: Yes: Regular Rate and Rhythm Respiratory: Yes: CTA Bilaterally Gastrointestinal: Yes: Soft Edema: No Neurological: Yes: Alert Labs: CBC, BMP 01/08/17 08:25 01/09/17 06:25 INR, PTT INR 1.05 (0.82-1.09) 01/03/17 07:35 - ....Imaging EKG: Image Reviewed Assessment/Plan IMP ESRD Multiple b/l strokes 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 HTN REC: Cont ASA and Plavix as per Neuro reccs F/up hypercoagulable work up and heme if there is an indication to initiate full AC HTN control but avoid hypotensive episodes especially during HD To be considered for ILR implantation as outpatient for long term monitoring for occult arrhythmia At this point there has been no evidence found from a cardiac standpoint to initiate full AC (aortic atheroma which is treated with anti-platelets and statins, no recorded arrythmias, no thrombus or pfo on TOBIAS 2014) Repeat TOBIAS was attempted but pt was noted to have seizure like activity during induction of anesthesia-unknown if true seizure or not, EEG was done and is pending. Will await heme work up, if there is evidence of a hypercoagulable state and full AC is indicated then it will be started and repeat TOBIAS would not be helpful in that case. If hypercoagulable work up is negative, will consider another attempt at repeating TOBIAS (provided no seizures and if seizures that treatment is started). Pt does not need to remain in hospital for repeat TOBIAS to be done.
[2017-01-11] MEDS ORDERED: PT OWN MED DRAWER 7, Y5N ONE ×2 (09:30→15:33)
[2017-01-11] MEDS ORDERED: CARVEDILOL 25 MG TABLET (FP) PO SCH (10:00)
[2017-01-11 10:46] LABS: MCHC 32.1 g/dl (32.0-36.0); MEAN CELL VOLUME 99.8 fl (80-96); MEAN PLT VOLUME 10.7 fl (7.5-11.1); PLATELET COUNT 130 K/MM3 (134-434); RDW 13.9 % (11.6-15.6); WHITE BLOOD COUNT 7.4 K/mm3 (4.0-10.0)
[2017-01-11 11:21] LABS: ALBUMIN 3.6 g/dl (3.4-5.0); CALCIUM 9.5 mg/dL (8.5-10.1)
[2017-01-11 11:32] LABS: ALK PHOS 55 U/L (45-117); ANION GAP 12 (8-16); BILIRUBIN,TOTAL 0.5 mg/dL (0.2-1.0); CO2 29 mmol/L (21-32); GLUCOSE,RANDOM 180 mg/dL (74-106); SGOT/AST 53 U/L (15-37); SGPT/ALT 77 U/L (12-78); TOT PROT 7.2 g/dl (6.4-8.2)
[2017-01-11 11:46] LABS: CREATININE 11.1 mg/dL (0.55-1.02)
--- NOTE | 2017-01-11 12:46 | PN ---
Progress Note, Physician History of Present Illness: Pt seen and examined at bedside. She is awake and alert. She is currently getting HD. - Current Medication List Current Medications: Active Medications Albuterol Sulfate (Ventolin Hfa Inhaler -) 2 puff IH Q12H PRN PRN Reason: ASTHMA Amlodipine Besylate (Norvasc -) 10 mg PO DAILY [facility] Last Admin: 01/10/17 09:29 Dose: 10 mg Aspirin (Ecotrin -) 81 mg PO DAILY [facility] Last Admin: 01/10/17 09:29 Dose: 81 mg Atorvastatin Calcium (Lipitor -) 80 mg PO HS [facility] Last Admin: 01/10/17 21:31 Dose: 80 mg Bacitracin (Bacitracin -) 1 applic TP DAILY [facility] Last Admin: 01/10/17 09:29 Dose: Not Given Brimonidine Tartrate (Alphagan 0.2% -) 2 drop OU DAILY [facility] Last Admin: 01/10/17 09:29 Dose: Not Given Bupropion HCl (Wellbutrin Xl -) 300 mg PO DAILY [facility] Last Admin: 01/10/17 09:29 Dose: 300 mg Carvedilol (Coreg -) 25 mg PO BID [facility] Clonazepam (Klonopin -) 0.5 mg PO BID [facility] Last Admin: 01/10/17 21:31 Dose: 0.5 mg Clopidogrel Bisulfate (Plavix -) 75 mg PO DAILY [facility] Last Admin: 01/10/17 09:29 Dose: 75 mg Furosemide (Lasix -) 40 mg PO BIDLASIX [facility] Last Admin: 01/11/17 06:08 Dose: Not Given Insulin Aspart (Novolog Vial Sliding Scale -) 1 vial SQ ACHS [facility] PRN Reason: Protocol Last Admin: 01/11/17 06:08 Dose: Not Given Insulin Detemir (Levemir Vial) 7 units SQ HS [facility] Last Admin: 01/10/17 22:16 Dose: 7 units Lidocaine/Prilocaine (Emla -) 1 applic TP PRN PRN PRN Reason: PAIN Ondansetron HCl (Zofran -) 4 mg PO DAILY PRN PRN Reason: NAUSEA Pantoprazole Sodium (Protonix -) 40 mg PO DAILY [facility] Last Admin: 01/10/17 09:29 Dose: 40 mg Ranitidine HCl (Zantac -) 150 mg PO DAILY [facility] Last Admin: 01/10/17 09:29 Dose: 150 mg Senna (Senna -) 2 tab PO DAILY [facility] Last Admin: 01/10/17 09:29 Dose: Not Given Timolol Maleate (Timoptic 0.5%) 2 drop OU DAILY [facility] Last Admin: 01/10/17 09:29 Dose: Not Given Topiramate (Topamax -) 50 mg PO BID [facility] Last Admin: 01/10/17 21:31 Dose: 50 mg - Objective Vital Signs: Vital Signs Temperature 98.8 F 01/11/17 10:05 Pulse Rate 96 H 01/11/17 12:32 Respiratory Rate 18 01/11/17 12:32 Blood Pressure 134/95 01/11/17 12:32 O2 Sat by Pulse Oximetry (%) 98 01/11/17 09:00 Constitutional: Yes: Calm HENT: Yes: Atraumatic Neck: Yes: Supple Cardiovascular: Yes: S1, S2 Respiratory: Yes: CTA Bilaterally Gastrointestinal: Yes: Soft, Abdomen, Obese Musculoskeletal: Yes: Muscle Weakness Edema: Yes Edema: LLE: Trace, RLE: Trace Neurological: Yes: Oriented Labs: CBC, BMP 01/11/17 10:00 01/11/17 10:00 INR, PTT INR 1.05 (0.82-1.09) 01/03/17 07:35 Problem List - Problems (1) CVA (cerebral vascular accident) Code(s): I63.9 - CEREBRAL INFARCTION, UNSPECIFIED (2) Diabetes Code(s): E11.9 - TYPE 2 DIABETES MELLITUS WITHOUT COMPLICATIONS Qualifiers: Diabetes mellitus type: type 2 Diabetes mellitus complication status: with kidney complications Diabetes mellitus complication detail: with chronic kidney disease Diabetes mellitus half-way insulin use: with half-way use Chronic kidney disease stage: on chronic dialysis Qualified Code(s): E11.22 - Type 2 diabetes mellitus with diabetic chronic kidney disease ; E11.22 - Type 2 diabetes mellitus with diabetic chronic kidney disease; E11.22 - Type 2 diabetes mellitus with diabetic chronic kidney disease; E11.22 - Type 2 diabetes mellitus with diabetic chronic kidney disease; E11.22 - Type 2 diabetes mellitus with diabetic chronic kidney disease; N18.1 - Chronic kidney disease, stage 1; N18.1 - Chronic kidney disease, stage 1; Z79.4 - terminal supervisor (current) use of insulin; Z79.4 - halfway (current) use of insulin; Z79.4 - terminal supervisor (current) use of insulin; Z79.4 - halfway (current) use of insulin (3) ESRD (end stage renal disease) Code(s): N18.6 - END STAGE RENAL DISEASE (4) Hypertension Code(s): I10 - ESSENTIAL (PRIMARY) HYPERTENSION Qualifiers: Hypertension type: essential hypertension Qualified Code(s): I10 - Essential (primary) hypertension; I10 - Essential (primary) hypertension; I10 - Essential (primary) hypertension Assessment/Plan Current Medications Generic Name Dose Route Start Last Admin Trade Name Freq PRN Reason Stop Dose Admin Albuterol Sulfate 2 puff 01/06/17 16:25 Ventolin Hfa Inhaler - IH Q12H PRN ASTHMA Amlodipine Besylate 10 mg 01/08/17 10:00 01/10/17 09:29 Norvasc - PO 10 mg DAILY [facility] Administration Aspirin 81 mg 01/07/17 10:00 01/10/17 09:29 Ecotrin - PO 81 mg DAILY [facility] Administration Atorvastatin Calcium 80 mg 01/06/17 22:00 01/10/17 21:31 Lipitor - PO 80 mg HS [facility] Administration Bacitracin 1 applic 01/07/17 10:00 01/10/17 09:29 Bacitracin - TP Not Given DAILY [facility] Brimonidine Tartrate 2 drop 01/07/17 10:00 01/10/17 09:29 Alphagan 0.2% - OU Not Given DAILY [facility] Bupropion HCl 300 mg 01/07/17 10:00 01/10/17 09:29 Wellbutrin Xl - PO 300 mg DAILY [facility] Administration Carvedilol 25 mg 01/11/17 10:00 Coreg - PO BID [facility] Clonazepam 0.5 mg 01/06/17 22:00 01/10/17 21:31 Klonopin - PO 0.5 mg BID [facility] Administration Clopidogrel Bisulfate 75 mg 01/07/17 10:00 01/10/17 09:29 Plavix - PO 75 mg DAILY [facility] Administration Furosemide 40 mg 01/07/17 06:00 01/11/17 06:08 Lasix - PO Not Given BIDLASIX [facility] Insulin Aspart 1 vial 01/06/17 16:30 01/11/17 06:08 Novolog Vial Sliding Scale - SQ Not Given ACHS [facility] Protocol Insulin Detemir 7 units 01/06/17 22:00 01/10/17 22:16 Levemir Vial SQ 7 units HS [facility] Administration Lidocaine/Prilocaine 1 applic 01/06/17 16:25 Emla - TP PRN PRN PAIN Ondansetron HCl 4 mg 01/06/17 16:25 Zofran - PO DAILY PRN NAUSEA Pantoprazole Sodium 40 mg 01/07/17 10:00 01/10/17 09:29 Protonix - PO 40 mg DAILY [facility] Administration Ranitidine HCl 150 mg 01/07/17 10:00 01/10/17 09:29 Zantac - PO 150 mg DAILY [facility] Administration Senna 2 tab 01/07/17 10:00 01/10/17 09:29 Senna - PO Not Given DAILY [facility] Timolol Maleate 2 drop 01/07/17 10:00 01/10/17 09:29 Timoptic 0.5% OU Not Given DAILY [facility] Topiramate 50 mg 01/06/17 22:00 01/10/17 21:31 Topamax - PO 50 mg BID [facility] Administration Impression 1. ESRD 2. CVA 3. DM 4. HLD 5. HTN 6. anemia 7. anxiety 8. infected right foot ulcer 9. possible seizure Plan - HD today - pt/rehab - pt is refusing to do 4 hrs today and will only do 3:30 min - she has outpt HD set up for Mon - hypercoag workup needs to be followed up - outpt HD: [facility] 2 k bath, 4 hrs, 116.5 kg, 1000 epogen, hectorol 4 mcg, venofer, [address] Sharma
[2017-01-11 14:33] VITALS: BP 148/92; PULSE 111; TEMP 98.9
[2017-01-11] MEDS: BACITRACIN 15 GM TUBE TOPICAL OINTMENT TP SCH (14:35)
[2017-01-11] MEDS: ASPIRIN COATED 81 MG TABLET.EC PO SCH (14:37)
[2017-01-11] MEDS: SENNOSIDES 8.6MG TABLET (FP) PO SCH (14:37)
[2017-01-11] MEDS: amLODIPine BESYLATE 10 MG TABLET (FP) PO SCH (14:37)
[2017-01-11] MEDS: clonazePAM 0.5 MG TABLET PO SCH (14:38)
[2017-01-11] MEDS: PANTOPRAZOLE 40 MG TABLET (FP) PO SCH (14:38)
[2017-01-11] MEDS: CLOPIDOGREL BISULFATE 75 MG TABLET (FP) PO SCH (14:38)
[2017-01-11] MEDS: TOPIRAMATE 25 MG TABLET (FP) PO SCH (14:39)
[2017-01-11] MEDS: TIMOLOL 0.5% OPHTHALMIC SOL 5 ML BOTTLE OU SCH (14:43)
[2017-01-11] MEDS: BRIMONIDINE TARTRATE 0.2% OPHTHALMIC 5 ML BOTTLE OU SCH (14:43)
[2017-01-11] MEDS: RANITIDINE HCL 150 MG TABLET (FP) PO SCH (14:47)
--- NOTE | 2017-01-11 17:20 | DS ---
Physical Exam: SUBJECTIVE: Patient seen and examined. No acute events overnight. Patient offers no new complaints. OBJECTIVE: Vital Signs Period Temp Pulse Resp BP Sys/[place] Pulse Ox Last 24 Hr 97.4 F-98.9 F 61-111 18-20 123-181/67-101 98-99 PHYSICAL EXAM GENERAL: Awake, alert, and fully oriented, in no acute distress. HEAD: Normal with no signs of trauma. EYES: Left eye: 1mm minimally reactive, Right eye: 2mm minimally reactive. Not able to follow fingers with eyes. NOSE, THROAT: oropharynx clear without exudates. Moist mucous membranes. NECK: Normal range of motion, supple without lymphadenopathy, JVD, or masses. LUNGS: Breath sounds equal, clear to auscultation bilaterally. No wheezes, and no crackles. No accessory muscle use. HEART: Regular rate and rhythm, normal S1 and S2 without murmur, rub or gallop. ABDOMEN: obese, soft, nontender, not distended, normoactive bowel sounds, no guarding, no rebound, no masses. No hepatomegaly or splenomegaly. MUSCULOSKELETAL: Normal range of motion at all joints. No bony deformities or tenderness. No CVA tenderness. UPPER EXTREMITIES: Tenderness to right arm at site of AVF. bruit over AVF. No erythema/warmth. 4/5 weakness on RUE and RLE including shoulder shrug, should abduction, bicepts, tricepts, and wrist flexion and extension. 3/5 dorsiflexion and plantar flextion. 5/5 LUE, LLE. 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 4 digits on right foot. right foot 1cm, dry, ulcerated lesion distal to great toe at sole of feet. NEURO: Left eye blindness. No facial asymmetry. LABS Laboratory Results - last 24 hr 01/10/17 01/11/17 01/11/17 22:15 04:55 10:00 WBC RBC Hgb Hct MCV MCH MCHC RDW Plt Count MPV Sodium Potassium Chloride Carbon Dioxide Anion Gap BUN Creatinine Creat Clearance w eGFR POC Glucometer 140 114 Random Glucose Calcium Total Bilirubin AST ALT Alkaline Phosphatase Total Protein Albumin Vitamin B12 1183 H Serum Folate 27 H D IgG IgA IgM 01/11/17 01/11/17 01/11/17 10:00 10:00 10:40 WBC 7.4 RBC 3.53 L Hgb 11.3 Hct 35.2 MCV 99.8 H MCH 32.0 MCHC 32.1 RDW 13.9 Plt Count 130 L MPV 10.7 Sodium 137 Potassium 3.9 Chloride 96 L Carbon Dioxide 29 Anion Gap 12 BUN 55 H Creatinine 11.1 H* Creat Clearance w eGFR 3.65 POC Glucometer Random Glucose 180 H Calcium 9.5 Total Bilirubin 0.5 D AST 53 H D ALT 77 D Alkaline Phosphatase 55 Total Protein 7.2 Albumin 3.6 Vitamin B12 Serum Folate IgG Cancelled IgA Cancelled IgM Cancelled 01/11/17 16:18 WBC RBC Hgb Hct MCV MCH MCHC RDW Plt Count MPV Sodium Potassium Chloride Carbon Dioxide Anion Gap BUN Creatinine Creat Clearance w eGFR POC Glucometer 195 Random Glucose Calcium Total Bilirubin AST ALT Alkaline Phosphatase Total Protein Albumin Vitamin B12 Serum Folate IgG IgA IgM HOSPITAL COURSE: Date of Admission:01/03/17 51 yo F with PMH of CVA, TIA, HTN, HLD, DM, left retinal detachment, left eye blindness, ESRD on HD (MWF), wheelchair bound, presented to the ED with 2 weeks of right arm heaviness and right arm numbness/burning on her right arm around the fistula site and was admitted for Acute vs. Subacute CVA in the left frontal lobe. Other acute/subacute infarcts are present in the left frontal lobe , anterior cerebral artery territory, watershed region as well as in the left parietal lobe. Patient was being followed and managed by Neuro, Cardio, Nephrology, Vascular and Hematology. Patient underwent venogram and venoplasty for AVF stenosis. She was being dialyzed in the hospital and will continue outpatient dialysis schedule. She will also follow up with neurology in 2 weeks for EEG results. Patient will need to follow up with hematology for hypercoaguable lab results. Will await heme work up, if there is evidence of a hypercoagulable state and full AC is indicated then it will be started and repeat TOBIAS would not be helpful in that case. If hypercoagulable work up is negative will consider another attempt at repeating TOBIAS as per Cardio. Date of Discharge: 01/11/17 Minutes to complete discharge: 60 Discharge Summary Reason For Visit: CVA Current Active Problems CVA (cerebral vascular accident) (Acute) Diabetes (Chronic) ESRD (end stage renal disease) (Chronic) Hypertension (Chronic) Paresthesias in left hand (Chronic) Condition: Improved - Instructions Diet, Activity, Other Instructions: Please see your primary care physician in 1 week. Follow up with your cardiology in 1 week. you might need an implantable loop recorder Follow up with your neurologist in 2 weeks. Follow up with hematology (Dr. Rae) in 1 week. Take your medications as directed, we have made some changes: You will not need to take hydralazine any more. Your Coreg was increased to 25mg twice a day. You will also take 10mg of Norvasc every day. You will take 7 units of long acting insulin every day. If you have worsening symptoms, please call your doctor. If there is an emergency, visit your nearest emergency department. Referrals: Simone Faye MD [Staff Physician] - 2 Weeks Dante Munoz MD [Staff Physician] - 1 Week Juanjo Rae MD [Staff Physician] - 1 Week Melissa Sharma MD [Staff Physician] - 1 Week Disposition: HOME - Home Medications Comprehensive Discharge Medication List: Ambulatory Orders Albuterol Sulfate Inhaler - [Ventolin HFA Inhaler -] 2 inh PO BID PRN 08/03/16 Atorvastatin Ca [Lipitor] 80 mg PO HS 08/03/16 Brimonidine Tartrate/Timolol [Combigan 0.2%-0.5% Eye Drops] 2 drop OU DAILY 01/10 Clonazepam [Klonopin -] 0.5 mg PO BID 08/03/16 Furosemide [Lasix] 40 mg PO BID 08/03/16 Lidocaine/Prilocaine Cream [Lidocaine-Prilocaine Cream -] 1 applic TP PRN PRN Mometasone/Formoterol [Dulera 100 Mcg/5 Mcg Inhaler] 2 inh IH BID PRN 08/03/16 Sennosides [Senna] 2 tab PO DAILY 08/03/16 Clopidogrel Bisulfate [Plavix -] 75 mg PO DAILY 08/26/16 Aspirin Coated [Ecotrin -] 325 mg PO DAILY 11/07/16 Bupropion HCl [Wellbutrin Xl -] 300 mg PO DAILY #30 tab.sr.24h 12/22/16 Topiramate [Topamax] 50 mg PO BID 01/02/17 Amlodipine Besylate [Norvasc -] 10 mg PO DAILY #30 tablet 01/09/17 Bacitracin - [Bacitracin Topical Ointment -] 1 applic TP DAILY #1 tube 01/09/17 Insulin Sliding Scale [Novolog Vial Sliding Scale -] See Protocol SQ ACHS #30 pen 01/09/17 Pantoprazole Sodium [Protonix -] 40 mg PO DAILY #30 tab 01/09/17 Carvedilol [Coreg] 25 mg PO BID #60 tablet 01/11/17 Insulin Glargine,Hum.rec.anlog [Lantus (nf)] 7 units SQ HS #1 vial 01/11/17 This patient is new to me today: Yes Date on this admission: 01/11/17 Emergency Visit: No Critical Care patient: No - Discharge Referral Referred to [facility] No
--- NOTE | 2017-01-11 18:02 | PN ---
Teaching Attending Note Name of Resident: Manuel Rushing ATTENDING PHYSICIAN STATEMENT I saw and evaluated the patient. I reviewed the resident's note and discussed the case with the resident. I agree with the resident's findings and plan as documented. SUBJECTIVE: no fever or chills . has no abd pain , feels much better than before OBJECTIVE: HEENT: MMM, no facial droop CV: RRR, no MRG Lungs: CTAB , no wheezes or crackles EXT: no erythema, Neuro: slightly deformed small pupils , not reactive to light. Tongue at mid line. Strength : RUE: 4/5 at shoulder shrug, 4/5 at shoulder abduction, 5/5 biceps , 5/5 triceps . nl hand retail assistant. LUE:5/5 at shoulder shrug , 5/5 shoulder abduction . 5/5 at biceps, 5/5 at triceps , 5/5 wrist flexion and extension .NL hand retail assistant RLE: 4/5 hip flexion, 5/5 knee flexion and extension, 2-3 /5 dorsiflexion and plantar flexion . LLE: 5/5 in hip flexion, 5/5 knee flexion and extension, 5/5 dorsiflexion and plantar flexion Normal sensation to light touch all over ASSESSMENT AND PLAN: 51 y/o unfortunate lady , with multiple medical problems, including HTN, ESRD, On HD MWF, CVA , TIA, IDDM, R hemicranial migraine , R big toe Fx , and other medical problems who presented with RUE heaviness and pain. She was found to have acute L upper frontal stroke 1- Acute L frontal stroke. no events on monitor , no evidence of A fib. hypercoagulable w/u to cont as out pt cont ASa and plavix might need a loop recorder as outpt . f/u with card 2- ESRD: with dysfunctional fistula. - cont HD 3- DM: - SSI - Levemir 7 units at HS 4- HTN: cont coerg 25 BID , off HZN . cont norvasc and lasix 5- Ocular lesions seen on CT scan . - out pt follow up with ophth Dispo : dc home with VNS today . seen by PT again. d/w her , sh erefused rehab , and understands the risks
[2017-01-13 00:07] LABS: A/G RATIO 1.1 (0.7-1.7); ALBUMIN 3.7 g/dL (2.9-4.4); ALPHA-1-GLOBULIN 0.2 g/dL (0.0-0.4); GAMMA GLOBULIN 1.4 g/dL (0.4-1.8); GLOBULIN, TOTAL 3.5 g/dL (2.2-3.9); M-SPIKE Not Observed g/dL (Not Observed); TOTAL PROTEIN 7.2 g/dL (6.0-8.5)
[2017-01-15 00:05] LABS: REFERENCES 94 % (.)
== END 2017-01-11 18:57 | disposition home or self-care (01) | DRG 252 ==
LOC: JER 10:03 → JERBED 16:26 → J4S 19:35 → OBSVTOIN 01-03 12:29
PROVIDERS: ADMIT Internal Medicine; ATTEND Internal Medicine
PROC: 5A1D70Z Performance of Urinary Filtration, Intermittent, Less than 6 Hours Per Day (ICD-10-PCS; 2017-01-03)
PROC: B51WZZZ Fluoroscopy of Dialysis Shunt/Fistula (ICD-10-PCS; 2017-01-06)
PROC: 05793ZZ Dilation of Right Brachial Vein, Percutaneous Approach (ICD-10-PCS; principal; 2017-01-06 16:00)
DX: T82.858A Stenosis of other vascular prosthetic devices, implants and grafts, initial encounter (principal); I63.231 Cerebral infarction due to unspecified occlusion or stenosis of right carotid arteries; N18.6 End stage renal disease; G81.91 Hemiplegia, unspecified affecting right dominant side; M86.671 Other chronic osteomyelitis, right ankle and foot; H33.22 Serous retinal detachment, left eye; I12.0 Hypertensive chronic kidney disease with stage 5 chronic kidney disease or end stage renal disease; L97.516 Non-pressure chronic ulcer of other part of right foot with bone involvement without evidence of necrosis; E11.65 Type 2 diabetes mellitus with hyperglycemia; E11.22 Type 2 diabetes mellitus with diabetic chronic kidney disease; E11.319 Type 2 diabetes mellitus with unspecified diabetic retinopathy without macular edema; E11.42 Type 2 diabetes mellitus with diabetic polyneuropathy; E11.621 Type 2 diabetes mellitus with foot ulcer; Z99.2 Dependence on renal dialysis; Z68.39 Body mass index [BMI] 39.0-39.9, adult; R56.9 Unspecified convulsions; Z79.4 Long term (current) use of insulin; Z86.73 Personal history of transient ischemic attack (TIA), and cerebral infarction without residual deficits; J45.909 Unspecified asthma, uncomplicated; F41.9 Anxiety disorder, unspecified; E78.5 Hyperlipidemia, unspecified; R23.3 Spontaneous ecchymoses; F32.9 Major depressive disorder, single episode, unspecified; G43.809 Other migraine, not intractable, without status migrainosus; G47.30 Sleep apnea, unspecified; E66.9 Obesity, unspecified; I73.9 Peripheral vascular disease, unspecified; Z89.422 Acquired absence of other left toe(s); Z89.421 Acquired absence of other right toe(s); Z75.1 Person awaiting admission to adequate facility elsewhere; Z53.09 Procedure and treatment not carried out because of other contraindication; I70.0 Atherosclerosis of aorta
CPT/HCPCS: 36415; 70450-TC; 70544-TC; 70547-TC; 70551-TC; 76000-TC; 80048; 80053; 81240; 81241; 81291; 82607; 82746; 82784; 83735; 84100; 84155; 84165; 84443; 84703; 85025; 85027; 85300; 85303; 85597; 85610; 85613; 85730; 85732; 86146; 86147; 86334; 86704; 86706; 86708; 86803; 87081; 87340; 88300-TC; 93306-TC; 93931; 94760; 95816; 97116-GP; 97161-GP; 99282-25; G0378; J1644

== ENCOUNTER 2017-02-06 10:47 | Inpatient (IN) | payer OTHER ==
[2017-02-06 11:14] VITALS: BMI 40.5
--- NOTE | 2017-02-06 11:26 | PDOC ---
History of Present Illness - General Chief Complaint: Weakness Stated Complaint: WEAKNESS,VOMITING Time Seen by Provider: 02/06/17 10:57 History Source: Patient, Care Provider Exam Limitations: Clinical Condition - History of Present Illness Initial Comments: 02/06/17 11:27 Patient is a 51F with history of IDDM, prior stroke, and ESRD on dialysis MWF here today complaining of lethargy. She now has decreased strength in right leg and arm with right sided facial droop. Patient is confused and unable to provide much history, keeps repeating "old wounds" inappropriately, but can find words like yes and no. Her aide says these symptoms were not present when she took over. EMS did not notice the facial droop or limb weakness during picker. Patient fell and was seen at [facility] for a fall. She was told she had a busted lip and given antibiotics and a tetanus shot. Answering questions inappropriately. 02/06/17 12:34 Patient is now complaining of abdominal pain and nausea. Currently dry heaving in room. NIH Stroke Scale - Last Known Well Date/Time & Onset Date Last Known Well: 02/06/17 Time Last Known Well: 10:00 - Initial Evaluation Level of consciousness: Alert Ask patient the month and their age: Answers one correctly Ask patient to open & close eyes; make fist and let go: Obeys both correctly Best gaze (horizontal eye movement): Partial gaze palsy Visual field testing: No visual field loss Facial paresis (Show teeth/raise eyebrows/close eyes tight): Partial paralysis ( total or near paralysis of lower face) Motor Function: Left Arm: Normal Motor Function: Right Arm: Some effort against gravity Motor Function: Left Leg: Normal (extends leg 30 degrees for 5 seconds without drift) Motor Function: Right Leg: No effort against gravity Limb Ataxia: Present in two limbs Sensory(Use pinprick test arms,legs,trunk,face/side to side): Mild to moderate decrease in sensation Best language (Describe picture, name items, read sentences): Mild to moderate aphasia Dysarthria (read several words): Mild to moderate slurring of words Extinction and Inattention: No abnormality - Total Score NIH Stroke Scale Score: 14 Past History - Past Medical History Allergies/Adverse Reactions: Allergies Allergy/AdvReac Type Severity Reaction Status Date / Time amoxicillin [Amoxicillin] Allergy Severe Itching Verified 02/06/17 10:52 hydrocodone bitartrate Allergy Severe Hives,ITCHI Verified 02/06/17 10:52 [From Vicodin] NG morphine Allergy Severe Itching Verified 02/06/17 10:52 neomycin [Neomycin] Allergy Severe Swelling Verified 02/06/17 10:52 oxycodone HCl [From Percocet] Allergy Severe Itching,HIV Verified 02/06/17 10:52 ES rofecoxib [From Vioxx] Allergy Severe Hives Verified 02/06/17 10:52 Sulfa (Sulfonamide Allergy Severe sclera Verified 02/06/17 10:52 Antibiotics) reddened,ITCHING tramadol Allergy Severe Vomiting Verified 02/06/17 10:52 tomato Allergy Verified 02/06/17 10:52 grapefruit [Grapefruit] AdvReac Severe CAN'T TAKE Verified 02/06/17 10:52 BECAUSE OF MEDICATIONS vancomycin AdvReac Mild red man Verified 02/06/17 10:52 syndrome Heparin Analogues AdvReac Unknown Verified 02/06/17 10:52 [Heparin Agents] flu shot Allergy Severe GETS FLU Uncoded 02/06/17 10:52 SYMPTOMS grape juice AdvReac Severe Uncoded 02/06/17 10:52 Home Medications: Ambulatory Orders Albuterol Sulfate Inhaler - [Ventolin HFA Inhaler -] 2 inh PO BID PRN 08/03/16 Atorvastatin Ca [Lipitor] 80 mg PO HS 08/03/16 Brimonidine Tartrate/Timolol [Combigan 0.2%-0.5% Eye Drops] 2 drop OU DAILY 01/10 Clonazepam [Klonopin -] 0.5 mg PO BID 08/03/16 Furosemide [Lasix] 40 mg PO BID 08/03/16 Lidocaine/Prilocaine Cream [Lidocaine-Prilocaine Cream -] 1 applic TP PRN PRN Mometasone/Formoterol [Dulera 100 Mcg/5 Mcg Inhaler] 2 inh IH BID PRN 08/03/16 Sennosides [Senna] 2 tab PO DAILY 08/03/16 Clopidogrel Bisulfate [Plavix -] 75 mg PO DAILY 08/26/16 Aspirin Coated [Ecotrin -] 325 mg PO DAILY 11/07/16 Bupropion HCl [Wellbutrin Xl -] 300 mg PO DAILY #30 tab.sr.24h 12/22/16 Topiramate [Topamax] 50 mg PO BID 01/02/17 Amlodipine Besylate [Norvasc -] 10 mg PO DAILY #30 tablet 01/09/17 Bacitracin - [Bacitracin Topical Ointment -] 1 applic TP DAILY #1 tube 01/09/17 Insulin Sliding Scale [Novolog Vial Sliding Scale -] See Protocol SQ ACHS #30 pen 01/09/17 Pantoprazole Sodium [Protonix -] 40 mg PO DAILY #30 tab 01/09/17 Carvedilol [Coreg] 25 mg PO BID #60 tablet 01/11/17 Insulin Glargine,Hum.rec.anlog [Lantus (nf)] 7 units SQ HS #1 vial 01/11/17 Anemia: No Asthma: Yes Cancer: No Cardiac Disorders: No CVA: Yes (TIA 2016) COPD: No CHF: No Dementia: No Diabetes: Yes Dialysis: Yes (m,w,f) GI Disorders: No Disorders: No HTN: Yes Hypercholesterolemia: Yes Liver Disease: No Psychiatric Problems: Yes (ANXIETY.) Seizures: No Thyroid Disease: No Other medical history: right foot - Surgical History Abdominal Surgery: No Appendectomy: No Cardiac Surgery: Yes (AV graft right) Cholecystectomy: No Lung Surgery: No Neurologic Surgery: No Orthopedic Surgery: No - Immunization History Td Vaccination: No TDAP Vaccination: No Immunization Up to Date: Yes - Suicide/Smoking/Psychosocial Hx Smoking Status: No Smoking History: Never smoked Have you smoked in the past 12 months: No Number of Cigarettes Smoked Daily: 0 Information on smoking cessation initiated: No Hx Alcohol Use: No Drug/Substance Use Hx: No Substance Use Type: None Hx Substance Use Treatment: No Review of Systems - Review of Systems Able to Perform ROS?: No (2/2 clinical condition) *Physical Exam - Vital Signs Last Vital Signs Temp Pulse Resp BP Pulse Ox 98.4 F 105 H 18 195/100 100 02/06/17 10:59 02/06/17 10:59 02/06/17 10:59 02/06/17 10:59 02/06/17 10:59 - Physical Exam Comments: 02/06/17 11:34 GENERAL: Lethargivc but arousable, confused, answering questions in appropriately HEAD: Wound on lower right lip, normocephalic EYES: PERRLA, EOMI, sclera anicteric, conjunctiva clear ENT: Auricles normal inspection, hearing grossly normal, nares patent, oropharynx clear without exudates. Dry mucosa NECK: Normal ROM, supple, no lymphadenopathy, JVD, or masses LUNGS: No distress, speaks full sentences, clear to auscultation bilaterally HEART: Regular rate and rhythm, normal S1 and S2, no murmurs, rubs or gallops, peripheral pulses normal and equal bilaterally. ABDOMEN: Soft, nontender, normoactive bowel sounds. No guarding, no rebound. No masses EXTREMITIES: Normal inspection, Normal range of motion, no edema. No clubbing or cyanosis. NEUROLOGICAL: Right sided facial droop. Using inappropriate words. 3/5 right arm strength. 2/5 right leg strength. SKIN: Warm, Dry, normal turgor, no rashes or lesions noted. ED Treatment Course - LABORATORY CBC & Chemistry Diagram: 02/06/17 12:35 02/06/17 12:35 - RADIOLOGY Radiology Studies Ordered: Category Date Time Status HEAD CT (STROKE) [CT] Stat CT Scan 02/06/17 11:16 Ordered CHEST X-RAY PORTABLE* [RAD] Stat Radiology 02/06/17 11:18 Ordered Medical Decision Making - Medical Decision Making 02/06/17 11:24 Patient was listed originally as 51F complaining of lethargy. During initial evaluation by myself was found to have right sided facial droop, arm weakness, and leg weakness. Per aide, these symptoms were not present when she took over at 10am. [facility] called. 02/06/17 12:22 Patient is not a TPA candidate due to stroke in prior 3 months and seizures. 02/06/17 12:35 51F with history of IDDM, ESRD on dialysis, and prior stroke here today complaining of lethargy. [facility] called for reasons above. History unclear, differential is very broad and now includes an abdominal etiology due to nausea and vomiting. Patient reports that she hasn't eaten anything due to her abdominal pain. IV access established but labs not drawn. Multiple lab draws attempted. Phlebotomy here now. CT scan shows no evidence of acute infarction, late subace left frontal cortical infarct, chronic right frontopariental cortical infarct and chronic microvascular changes. 02/06/17 14:23 Patient vomit now brownish/black. Given protonix and reglan. 02/06/17 14:53 Laboratory Tests 02/06/17 02/06/17 02/06/17 12:35 12:35 12:35 WBC 15.7 H D Hgb 11.1 Hct 34.4 Plt Count 202 D Neutrophils % 91.4 H D INR 1.08 BUN 73 H D Creatinine 13.0 H* Troponin I 0.05 CBC shows leukocytosis with neutrophil predominance. INR normal. Cr 13, trop .05 , BUN 73. Due for dialysis today. 02/06/17 17:48 CT scan of abdomen shows no obstruction, no signs of infection. 02/06/17 18:00 Dr Keshav bolaños. Wants admission to Dr Harris 02/06/17 18:[address] Harris. Will admit to stroke floor. Will add occult blood. 02/06/17 18:[address] Sharma. Officically consulted. *DC/Admit/Observation/Transfer Diagnosis at time of Disposition: CVA (cerebral vascular accident) - Discharge Dispostion Condition at time of disposition: Stable Admit: Yes - Referrals - Patient Instructions - Post Discharge Activity
[2017-02-06] MEDS ORDERED: ONDANSETRON 4 MG/2 ML VIAL IVPUSH ONE (11:57)
[2017-02-06] MEDS ORDERED: ONDANSETRON 4 MG/2 ML VIAL ONE (12:00)
--- NOTE | 2017-02-06 12:31 | PDOC ---
Attending Attestation - Resident Resident Name: Jose CwhitneyRaul - ED Attending Attestation I have performed the following: I have examined & evaluated the patient, The case was reviewed & discussed with the resident, I agree w/resident's findings & plan, Exceptions are as noted - HPI HPI: 51 yo F multiple medical comorbidities presents with slurred speech, RUE and RLE weakness, last known well at 10am. She states she had a seizure this morning. She answers some questions, but her words are unintelligible at times. She was recently diagnosed with seizures as per the aide. She has history of prior stroke in December of this year. - Physicial Exam PE: GENERAL: Awake, alert, and oriented, in no acute distress. Obese. HEAD: No signs of trauma EYES: PERRLA, EOMI, sclera anicteric, conjunctiva clear ENT: Auricles normal inspection, hearing grossly normal, nares patent, oropharynx clear without exudates. Moist mucosa NECK: Normal ROM, supple, no lymphadenopathy, JVD, or masses LUNGS: Breath sounds equal, clear to auscultation bilaterally. No wheezes, and no crackles HEART: Regular rate and rhythm, normal S1 and S2, no murmurs, rubs or gallops ABDOMEN: Soft, nontender, normoactive bowel sounds. No guarding, no rebound. No masses EXTREMITIES: R upper arm with HD fistula, +thrill. +Moderate spasticity of the LUE (new per aide). Normal range of motion, no edema. No clubbing or cyanosis. No cords, erythema, or tenderness NEUROLOGICAL: Cranial nerves II through XII grossly intact. Speech slurred. +RUE /RLE weakness. Gait not tested due to nature of complaint. SKIN: Warm, Dry, normal turgor, no rashes or lesions noted. - Medical Decision Making Pt presents with stroke-like symptoms. [facility] called, but patient is not a tPA candidate due to recent CVA. Symptoms are similar to her recent CVA. Also with abd pain, nausea, vomiting. Will work abd pain up with CT. Plan for admission.
[2017-02-06 13:15] LABS: BASOPHIL 0.5 % (0-2.0); EOSINOPHIL 0.1 % (0-4.5); MCH 31.9 pg (25.7-33.7); MCHC 32.3 g/dl (32.0-36.0); MEAN CELL VOLUME 98.6 fl (80-96); MEAN PLT VOLUME 8.9 fl (7.5-11.1); NEUTROPHILS 91.4 % (42.8-82.8); PLATELET COUNT 202 K/MM3 (134-434); WHITE BLOOD COUNT 15.7 K/mm3 (4.0-10.0)
--- NOTE | 2017-02-06 13:16 | CONSULT ---
Consult - text type - Consultation Consultation Note: Neurology History of Present Illness Patient is a 51F with history of IDDM, prior stroke, and ESRD on dialysis MWF presented to the ER complaining of lethargy along with decreased strength in right leg and arm with right sided facial droop. She was code moseley patient and I spoke with resident. Ct scan of head was completed and no evidence of acute infarction, but late subacute left frontal cortical infarct noted along with chronic right frontopariental cortical infarct and chronic microvascular changes. Prior notes indicate she has had previous right-sided weakness. Due to her recent subacute stroke, was not a TPA candidate. She was confused and being admitted for further evaluation and management. She does also have a history of seizures and recent EEG results in the chart were reviewed and with drowsiness but no active epileptiform activity. She will need admission and further workup. Past History - Past Medical History Allergies/Adverse Reactions: Allergies Allergy/AdvReac Type Severity Reaction Status Date / Time amoxicillin [Amoxicillin] Allergy Severe Itching Verified 02/06/17 10:52 hydrocodone bitartrate Allergy Severe Hives,ITCHI Verified 02/06/17 10:52 [From Vicodin] NG morphine Allergy Severe Itching Verified 02/06/17 10:52 neomycin [Neomycin] Allergy Severe Swelling Verified 02/06/17 10:52 oxycodone HCl [From Percocet] Allergy Severe Itching,HIV Verified 02/06/17 10:52 ES rofecoxib [From Vioxx] Allergy Severe Hives Verified 02/06/17 10:52 Sulfa (Sulfonamide Allergy Severe sclera Verified 02/06/17 10:52 Antibiotics) reddened,ITCHING tramadol Allergy Severe Vomiting Verified 02/06/17 10:52 tomato Allergy Verified 02/06/17 10:52 grapefruit [Grapefruit] AdvReac Severe CAN'T TAKE Verified 02/06/17 10:52 BECAUSE OF MEDICATIONS vancomycin AdvReac Mild red man Verified 02/06/17 10:52 syndrome Heparin Analogues AdvReac Unknown Verified 02/06/17 10:52 [Heparin Agents] flu shot Allergy Severe GETS FLU Uncoded 02/06/17 10:52 SYMPTOMS grape juice AdvReac Severe Uncoded 02/06/17 10:52 Home Medications: Ambulatory Orders Albuterol Sulfate Inhaler - [Ventolin HFA Inhaler -] 2 inh PO BID PRN 08/03/16 Atorvastatin Ca [Lipitor] 80 mg PO HS 08/03/16 Brimonidine Tartrate/Timolol [Combigan 0.2%-0.5% Eye Drops] 2 drop OU DAILY 01/10 Clonazepam [Klonopin -] 0.5 mg PO BID 08/03/16 Furosemide [Lasix] 40 mg PO BID 08/03/16 Lidocaine/Prilocaine Cream [Lidocaine-Prilocaine Cream -] 1 applic TP PRN PRN Mometasone/Formoterol [Dulera 100 Mcg/5 Mcg Inhaler] 2 inh IH BID PRN 08/03/16 Sennosides [Senna] 2 tab PO DAILY 08/03/16 Clopidogrel Bisulfate [Plavix -] 75 mg PO DAILY 08/26/16 Aspirin Coated [Ecotrin -] 325 mg PO DAILY 11/07/16 Bupropion HCl [Wellbutrin Xl -] 300 mg PO DAILY #30 tab.sr.24h 12/22/16 Topiramate [Topamax] 50 mg PO BID 01/02/17 Amlodipine Besylate [Norvasc -] 10 mg PO DAILY #30 tablet 01/09/17 Bacitracin - [Bacitracin Topical Ointment -] 1 applic TP DAILY #1 tube 01/09/17 Insulin Sliding Scale [Novolog Vial Sliding Scale -] See Protocol SQ ACHS #30 pen 01/09/17 Pantoprazole Sodium [Protonix -] 40 mg PO DAILY #30 tab 01/09/17 Carvedilol [Coreg] 25 mg PO BID #60 tablet 01/11/17 Insulin Glargine,Hum.rec.anlog [Lantus (nf)] 7 units SQ HS #1 vial 01/11/17 Anemia: No Asthma: Yes Cancer: No Cardiac Disorders: No CVA: Yes (TIA 2016) COPD: No CHF: No Dementia: No Diabetes: Yes Dialysis: Yes (m,w,f) GI Disorders: No Disorders: No HTN: Yes Hypercholesterolemia: Yes Liver Disease: No Psychiatric Problems: Yes (ANXIETY.) Seizures: No Thyroid Disease: No Other medical history: right foot - Surgical History Abdominal Surgery: No Appendectomy: No Cardiac Surgery: Yes (AV graft right) Cholecystectomy: No Lung Surgery: No Neurologic Surgery: No Orthopedic Surgery: No - Immunization History Td Vaccination: No TDAP Vaccination: No Immunization Up to Date: Yes - Suicide/Smoking/Psychosocial Hx Smoking Status: No Smoking History: Never smoked Have you smoked in the past 12 months: No Number of Cigarettes Smoked Daily: 0 Information on smoking cessation initiated: No Hx Alcohol Use: No Drug/Substance Use Hx: No Substance Use Type: None Hx Substance Use Treatment: No Review of Systems - Review of Systems Able to Perform ROS?: No (2/2 clinical condition) *Physical Exam Vital Signs Period Temp Pulse Resp BP Sys/[place] Pulse Ox Last 24 Hr 98.4 F 105 18 195/100 100 GENERAL: Lethargivc but arousable, confused, answering questions in appropriately HEAD: Wound on lower right lip, normocephalic EYES: PERRLA, EOMI, sclera anicteric, conjunctiva clear ENT: Auricles normal inspection, hearing grossly normal, nares patent, oropharynx clear without exudates. Dry mucosa NECK: Normal ROM, supple, no lymphadenopathy, JVD, or masses LUNGS: No distress, speaks full sentences, clear to auscultation bilaterally HEART: Regular rate and rhythm, normal S1 and S2, no murmurs, rubs or gallops, peripheral pulses normal and equal bilaterally. ABDOMEN: Soft, nontender, normoactive bowel sounds. No guarding, no rebound. No masses EXTREMITIES: Normal inspection, Normal range of motion, no edema. No clubbing or cyanosis. NEUROLOGICAL: Right sided facial droop. Using inappropriate words. 3/5 right arm strength. 2/5 right leg strength. SKIN: Warm, Dry, normal turgor, no rashes or lesions noted. - RADIOLOGY CT head reviewed Medical Decision Making 51F with history of IDDM, prior stroke, and ESRD on dialysis MWF presented to the ER complaining of lethargy along with decreased strength in right leg and arm with right sided facial droop. She was code moseley patient and admitted for further managment. Ct scan of head was completed and no evidence of acute infarction, but late subacute left frontal cortical infarct noted along with chronic right frontopariental cortical infarct and chronic microvascular changes. Due to her recent subacute stroke, was not a TPA candidate. Will order MRI brain to further evaluate for infarct Check Echo, CD (recent MRA noted possible R ICA occlusion, recommended CTA head and neck), will defer to PCP Already on dual antiplatelet ASA and Plavix, medication compliance would be necessary Check labs, monitor mental status, possibly toxic, metabolic encephalopathy Monitor BP, goal < 140/90 Physical therapy Tight glycemic control Critical care time 35 mins
[2017-02-06 13:44] LABS: ALBUMIN 3.7 g/dl (3.4-5.0); ANION GAP 16 (8-16); BILIRUBIN,TOTAL 0.5 mg/dL (0.2-1.0); CALCIUM 9.5 mg/dL (8.5-10.1); CHOLESTEROL 96 mg/dL (50-200); CO2 23 mmol/L (21-32); GLUCOSE,RANDOM 175 mg/dL (74-106); SGOT/AST 55 U/L (15-37); SGPT/ALT 47 U/L (12-78); TOT PROT 7.4 g/dl (6.4-8.2)
[2017-02-06 13:54] LABS: INR 1.08 (0.82-1.09); PROTHROMBIN TIME (PATIENT) 12.2 SEC (9.98-11.88)
[2017-02-06 13:57] LABS: ALK PHOS 66 U/L (45-117); TROPONIN I 0.05 ng/ml (0.00-0.05)
[2017-02-06 13:59] LABS: CPK 1412 IU/L (26-192)
[2017-02-06] MEDS ORDERED: PANTOPRAZOLE SODIUM 40 MG VIAL IVPUSH ONE (14:22)
[2017-02-06] MEDS ORDERED: OCTREOTIDE ACETATE 50 MCG/1 ML - 1 ML VIAL IVPUSH ONE (14:36)
[2017-02-06] MEDS ORDERED: PANTOPRAZOLE SODIUM 40 MG/100 ML BAG IVPB ONE (14:39)
[2017-02-06] MEDS ORDERED: METOCLOPRAMIDE HCL INJECTION 10 MG/2 ML VIAL IVPUSH ONE (14:41)
[2017-02-06] MEDS ORDERED: METOCLOPRAMIDE HCL INJECTION 10 MG/2 ML VIAL ONE (14:47)
--- NOTE | 2017-02-06 19:48 | HP ---
Admitting History and Physical - Primary Care Physician PCP: Jolanta Harris - Admission Chief Complaint: weakness History of Present Illness: 51F with history of IDDM, prior stroke, and ESRD on dialysis MWF presented to the ER complaining of lethargy along with decreased strength in right leg and arm with right sided facial droop. She was code moseley patient . Ct scan of head was completed and no evidence of acute infarction, but late subacute left frontal cortical infarct noted along with chronic right frontopariental cortical infarct and chronic microvascular changes. Prior notes indicate she has had previous right-sided weakness. Due to her recent subacute stroke, was not a TPA candidate. She was confused and being admitted for further evaluation and management. She does also have a history of seizures and recent EEG results in the chart were reviewed and with drowsiness but no active epileptiform activity. 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 Cardiovascular: Yes: HTN, Hyperlipdemia, Other (Peripheral vascular disease) Pulmonary: Yes: Asthma, Sleep Apnea Gastrointestinal: Yes: Constipation Renal/: Yes: Renal Failure, Hemodialysis ...LMP: 01/17/17 Heme/Onc: Yes: Anemia Rheumatology: Yes: Other (See HPI) Endocrine: Yes: Diabetes Mellitus - Past Surgical History Past Surgical History: Yes: Amputation, AV Fistula/Graft, - Smoking History Smoking history: Never smoked Have you smoked in the past 12 months: No Aproximately how many cigarettes per day: 0 - Alcohol/Substance Use Hx Alcohol Use: No - Social History ADL: Independent History of Recent Travel: No Home Medications - Allergies Allergies/Adverse Reactions: Allergies Allergy/AdvReac Type Severity Reaction Status Date / Time amoxicillin [Amoxicillin] Allergy Severe Itching Verified 02/07/17 01:09 hydrocodone bitartrate Allergy Severe Hives,ITCHI Verified 02/07/17 01:09 [From Vicodin] NG morphine Allergy Severe Itching Verified 02/07/17 01:09 neomycin [Neomycin] Allergy Severe Swelling Verified 02/07/17 01:09 oxycodone HCl [From Percocet] Allergy Severe Itching,HIV Verified 02/07/17 01:09 ES rofecoxib [From Vioxx] Allergy Severe Hives Verified 02/07/17 01:09 Sulfa (Sulfonamide Allergy Severe sclera Verified 02/07/17 01:09 Antibiotics) reddened,ITCHING tramadol Allergy Severe Vomiting Verified 02/07/17 01:09 tomato Allergy Verified 02/07/17 01:09 grapefruit [Grapefruit] AdvReac Severe CAN'T TAKE Verified 02/07/17 01:09 BECAUSE OF MEDICATIONS vancomycin AdvReac Mild red man Verified 02/07/17 01:09 syndrome Heparin Analogues AdvReac Unknown Verified 02/07/17 01:09 [Heparin Agents] flu shot Allergy Severe GETS FLU Uncoded 02/07/17 01:09 SYMPTOMS grape juice AdvReac Severe Uncoded 02/07/17 01:09 - Home Medications Home Medications: Ambulatory Orders Albuterol Sulfate Inhaler - [Ventolin HFA Inhaler -] 2 inh PO BID PRN 08/03/16 Atorvastatin Ca [Lipitor] 80 mg PO HS 08/03/16 Brimonidine Tartrate/Timolol [Combigan 0.2%-0.5% Eye Drops] 2 drop OU DAILY 01/10 Clonazepam [Klonopin -] 0.5 mg PO BID 08/03/16 Furosemide [Lasix] 40 mg PO BID 08/03/16 Lidocaine/Prilocaine Cream [Lidocaine-Prilocaine Cream -] 1 applic TP PRN PRN Mometasone/Formoterol [Dulera 100 Mcg/5 Mcg Inhaler] 2 inh IH BID PRN 08/03/16 Sennosides [Senna] 2 tab PO DAILY 08/03/16 Clopidogrel Bisulfate [Plavix -] 75 mg PO DAILY 08/26/16 Aspirin Coated [Ecotrin -] 325 mg PO DAILY 11/07/16 Bupropion HCl [Wellbutrin Xl -] 300 mg PO DAILY #30 tab.sr.24h 12/22/16 Topiramate [Topamax] 50 mg PO BID 01/02/17 Amlodipine Besylate [Norvasc -] 10 mg PO DAILY #30 tablet 01/09/17 Bacitracin - [Bacitracin Topical Ointment -] 1 applic TP DAILY #1 tube 01/09/17 Insulin Sliding Scale [Novolog Vial Sliding Scale -] See Protocol SQ ACHS #30 pen 01/09/17 Pantoprazole Sodium [Protonix -] 40 mg PO DAILY #30 tab 01/09/17 Carvedilol [Coreg] 25 mg PO BID #60 tablet 01/11/17 Insulin Glargine,Hum.rec.anlog [Lantus (nf)] 7 units SQ HS #1 vial 01/11/17 Physical Examination Vital Signs: Vital Signs Temperature 98.4 F 02/06/17 10:59 Pulse Rate 115 H 02/06/17 18:48 Respiratory Rate 20 02/06/17 18:48 Blood Pressure 166/91 02/06/17 18:48 O2 Sat by Pulse Oximetry (%) 99 02/06/17 18:48 Constitutional: Yes: No Distress HENT: Yes: Atraumatic Neck: Yes: Supple Cardiovascular: Yes: Regular Rate and Rhythm Respiratory: Yes: CTA Bilaterally Gastrointestinal: Yes: Normal Bowel Sounds Extremities: Yes: WNL Edema: No Neurological: Yes: Alert, Oriented, Other (R facial droop sppech not clear) ...Motor Strength: RUE (3/5), RLE (3/5) Labs: CBC, BMP 02/06/17 12:35 02/06/17 12:35 Problem List - Problems (1) CVA (cerebral vascular accident) Assessment/Plan: ct scan done no acute infarct Code(s): I63.9 - CEREBRAL INFARCTION, UNSPECIFIED (2) Asthma Assessment/Plan: stable prn duo nebs Code(s): J45.909 - UNSPECIFIED ASTHMA, UNCOMPLICATED Qualifiers: Asthma severity: unspecified severity Asthma complication type: uncomplicated (3) Diabetes Assessment/Plan: on insulin bgms Code(s): E11.9 - TYPE 2 DIABETES MELLITUS WITHOUT COMPLICATIONS Qualifiers: Diabetes mellitus type: type 2 Diabetes mellitus complication status: with kidney complications Diabetes mellitus complication detail: with chronic kidney disease Diabetes mellitus intermediate accountant insulin use: with custodial use Chronic kidney disease stage: on chronic dialysis Qualified Code(s): E11.22 - Type 2 diabetes mellitus with diabetic chronic kidney disease; N18.6 - End stage renal disease; N18.6 - End stage renal disease; N18.6 - End stage renal disease; N18.6 - End stage renal disease; Z79.4 - intermodal dispatcher (current) use of insulin; Z79.4 - intermodal dispatcher (current) use of insulin; Z79.4 - intermodal dispatcher (current ) use of insulin; Z79.4 - shelter (current) use of insulin; Z99.2 - Dependence on renal dialysis; Z99.2 - Dependence on renal dialysis; Z99.2 - Dependence on renal dialysis; Z99.2 - Dependence on renal dialysis (4) ESRD (end stage renal disease) Assessment/Plan: on hd dr ha Code(s): N18.6 - END STAGE RENAL DISEASE Assessment/Plan Laboratory Tests 02/06/17 02/06/17 02/06/17 12:35 12:35 12:35 WBC 15.7 H D RBC 3.49 L Hgb 11.1 Hct 34.4 MCV 98.6 H MCH 31.9 MCHC 32.3 RDW 15.0 Plt Count 202 D MPV 8.9 D Neutrophils % 91.4 H D Lymphocytes % 6.0 L D Monocytes % 2.0 L Eosinophils % 0.1 D Basophils % 0.5 PT with INR 12.20 H INR 1.08 Sodium 140 Potassium 4.1 Chloride 101 Carbon Dioxide 23 D Anion Gap 16 BUN 73 H D Creatinine 13.0 H* Creat Clearance w eGFR 3.04 Random Glucose 175 H Calcium 9.5 Total Bilirubin 0.5 AST 55 H ALT 47 D Alkaline Phosphatase 66 Creatine Kinase 1412 H Creatine Kinase Index 0.4 CK-MB (CK-2) 6.456 H Troponin I 0.05 Total Protein 7.4 Albumin 3.7 Triglycerides 144 Cholesterol 96 D Total LDL Cholesterol 45 HDL Cholesterol 31 L Stool Occult Blood Blood Type Antibody Screen 02/06/17 02/06/17 12:35 18:40 WBC RBC Hgb Hct MCV MCH MCHC RDW Plt Count MPV Neutrophils % Lymphocytes % Monocytes % Eosinophils % Basophils % PT with INR INR Sodium Potassium Chloride Carbon Dioxide Anion Gap BUN Creatinine Creat Clearance w eGFR Random Glucose Calcium Total Bilirubin AST ALT Alkaline Phosphatase Creatine Kinase Creatine Kinase Index CK-MB (CK-2) Troponin I Total Protein Albumin Triglycerides Cholesterol Total LDL Cholesterol HDL Cholesterol Stool Occult Blood Negative Blood Type A POSITIVE Antibody Screen Negative Active Medications Generic Name Dose Route Start Last Admin Trade Name Freq PRN Reason Stop Dose Admin Amlodipine Besylate 10 mg 02/07/17 10:00 Norvasc - PO DAILY MANDO Aspirin 325 mg 02/07/17 10:00 Ecotrin - PO DAILY MANDO Atorvastatin Calcium 80 mg 02/06/17 22:00 Lipitor - PO HS MANDO Bacitracin 1 applic 02/06/17 20:00 Bacitracin - TP DAILY MANDO Bupropion HCl 300 mg 02/07/17 10:00 Wellbutrin Xl - PO DAILY [facility] Carvedilol 25 mg 02/06/17 22:00 Coreg - PO BID [facility] Clopidogrel Bisulfate 75 mg 02/07/17 10:00 Plavix - PO DAILY [facility] Non-Formulary Medication 2 drop 02/07/17 10:00 Brimonidine Tartrate/Timolol [Combigan 0.2%-0.5% Eye Drops] OU DAILY [facility] Non-Formulary Medication 7 units 02/06/17 22:00 Insulin Glargine,Hum.Rec.Anlog SQ HS MANDO Non-Formulary Medication 50 mg 02/06/17 22:00 Topiramate [Topamax] PO BID [facility] Pantoprazole Sodium 40 mg 02/07/17 10:00 Protonix - PO DAILY [facility]
[2017-02-06 20:18] LABS: TROPONIN I 0.06 ng/ml (0.00-0.05)
[2017-02-06] MEDS: BACITRACIN 15 GM TUBE TOPICAL OINTMENT TP SCH (22:05)
[2017-02-06] MEDS: INSULIN DETEMIR 100 UNITS/ML MDV SQ SCH (22:45)
[2017-02-06] MEDS: ATORVASTATIN CA 80 MG TABLET (FP) PO SCH (22:50)
[2017-02-06] MEDS: CARVEDILOL 25 MG TABLET (FP) PO SCH (22:50)
--- NOTE | 2017-02-06 22:52 | CONSULT ---
Consult Consult Specialty:: Nephrology Reason for Consultation:: ESRD - History of Present Illness Chief Complaint: lethargy and fatigue History of Present Illness: Pt is a 51 year old female with pmhx of ESRD, DM, CVA, and htn who presents to the ER with weakness. She complains of decreased strength in her right arm and right leg. She also complained of weakness in her right face. She was not able to give me much history and is confused. The ER chart was reviewed. She denies chest pain or shortness of breath. She denies fevers r chills. She however is not answering questions appropriately. 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 Cardio/Vascular: Yes: HTN, Hyperlipdemia, Other (Peripheral vascular disease) Pulmonary: Yes: Asthma, Sleep Apnea Gastrointestinal: Yes: Constipation Renal/: Yes: Renal Failure, Hemodialysis ...LMP: 01/17/17 Rheumatology: Yes: Other (See HPI) Endocrine: Yes: Diabetes Mellitus - Past Surgical History Past Surgical History: Yes: Amputation, AV Fistula/Graft, - Alcohol/Substance Use Hx Alcohol Use: No - Smoking History Smoking history: Never smoked Have you smoked in the past 12 months: No Aproximately how many cigarettes per day: 0 - Social History ADL: Independent History of Recent Travel: No Home Medications - Allergies Allergies/Adverse Reactions: Allergies Allergy/AdvReac Type Severity Reaction Status Date / Time amoxicillin [Amoxicillin] Allergy Severe Itching Verified 02/06/17 10:52 hydrocodone bitartrate Allergy Severe Hives,ITCHI Verified 02/06/17 10:52 [From Vicodin] NG morphine Allergy Severe Itching Verified 02/06/17 10:52 neomycin [Neomycin] Allergy Severe Swelling Verified 02/06/17 10:52 oxycodone HCl [From Percocet] Allergy Severe Itching,HIV Verified 02/06/17 10:52 ES rofecoxib [From Vioxx] Allergy Severe Hives Verified 02/06/17 10:52 Sulfa (Sulfonamide Allergy Severe sclera Verified 02/06/17 10:52 Antibiotics) reddened,ITCHING tramadol Allergy Severe Vomiting Verified 02/06/17 10:52 tomato Allergy Verified 02/06/17 10:52 grapefruit [Grapefruit] AdvReac Severe CAN'T TAKE Verified 02/06/17 10:52 BECAUSE OF MEDICATIONS vancomycin AdvReac Mild red man Verified 02/06/17 10:52 syndrome Heparin Analogues AdvReac Unknown Verified 02/06/17 10:52 [Heparin Agents] flu shot Allergy Severe GETS FLU Uncoded 02/06/17 10:52 SYMPTOMS grape juice AdvReac Severe Uncoded 02/06/17 10:52 - Home Medications Home Medications: Ambulatory Orders Albuterol Sulfate Inhaler - [Ventolin HFA Inhaler -] 2 inh PO BID PRN 08/03/16 Atorvastatin Ca [Lipitor] 80 mg PO HS 08/03/16 Brimonidine Tartrate/Timolol [Combigan 0.2%-0.5% Eye Drops] 2 drop OU DAILY 01/10 Clonazepam [Klonopin -] 0.5 mg PO BID 08/03/16 Furosemide [Lasix] 40 mg PO BID 08/03/16 Lidocaine/Prilocaine Cream [Lidocaine-Prilocaine Cream -] 1 applic TP PRN PRN Mometasone/Formoterol [Dulera 100 Mcg/5 Mcg Inhaler] 2 inh IH BID PRN 08/03/16 Sennosides [Senna] 2 tab PO DAILY 08/03/16 Clopidogrel Bisulfate [Plavix -] 75 mg PO DAILY 08/26/16 Aspirin Coated [Ecotrin -] 325 mg PO DAILY 11/07/16 Bupropion HCl [Wellbutrin Xl -] 300 mg PO DAILY #30 tab.sr.24h 12/22/16 Topiramate [Topamax] 50 mg PO BID 01/02/17 Amlodipine Besylate [Norvasc -] 10 mg PO DAILY #30 tablet 01/09/17 Bacitracin - [Bacitracin Topical Ointment -] 1 applic TP DAILY #1 tube 01/09/17 Insulin Sliding Scale [Novolog Vial Sliding Scale -] See Protocol SQ ACHS #30 pen 01/09/17 Pantoprazole Sodium [Protonix -] 40 mg PO DAILY #30 tab 01/09/17 Carvedilol [Coreg] 25 mg PO BID #60 tablet 01/11/17 Insulin Glargine,Hum.rec.anlog [Lantus (nf)] 7 units SQ HS #1 vial 01/11/17 Family Disease History - Family Disease History Family History: Unable to Obtain Review of Systems Unable to obtain ROS, reason: pt is confused Physical Exam Vital Signs: Vital Signs Temperature 98.4 F 02/06/17 10:59 Pulse Rate 115 H 02/06/17 18:48 Respiratory Rate 20 02/06/17 18:48 Blood Pressure 166/91 02/06/17 18:48 O2 Sat by Pulse Oximetry (%) 99 02/06/17 18:48 Constitutional: Yes: Calm Eyes: Yes: Conjunctiva Clear Cardiovascular: Yes: S1, S2 Respiratory: Yes: CTA Bilaterally Gastrointestinal: Yes: Soft, Abdomen, Obese Renal/: Yes: Incontinence Musculoskeletal: Yes: Other (moving all extremities) Edema: Yes Wound/Incision: Yes: Dressing Dry and Intact Neurological: Yes: Confusion Labs: CBC, BMP 02/06/17 12:35 02/06/17 12:35 Laboratory Tests 02/06/17 02/06/17 12:35 12:35 WBC 15.7 H D Hgb 11.1 Sodium 140 Potassium 4.1 Chloride 101 Anion Gap 16 BUN 73 H D Creatinine 13.0 H* Imaging - Results Chest X-ray: Report Reviewed Cat Scan: Report Reviewed (ct head reviewed) Problem List - Problems (1) Anemia Code(s): D64.9 - ANEMIA, UNSPECIFIED Qualifiers: Chronic kidney disease stage: on chronic dialysis (2) Cellulitis and abscess of foot Code(s): L03.119 - CELLULITIS OF UNSPECIFIED PART OF LIMB; L02.619 - CUTANEOUS ABSCESS OF UNSPECIFIED FOOT (3) TIA (transient ischemic attack) Code(s): G45.9 - TRANSIENT CEREBRAL ISCHEMIC ATTACK, UNSPECIFIED Qualifiers: Transient cerebral ischemia type: unspecified Qualified Code(s): G45.9 - Transient cerebral ischemic attack, unspecified (4) Diabetes Code(s): E11.9 - TYPE 2 DIABETES MELLITUS WITHOUT COMPLICATIONS Qualifiers: Diabetes mellitus type: type 2 Diabetes mellitus complication status: with kidney complications Diabetes mellitus complication detail: with chronic kidney disease Diabetes 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 insulin use: with local company intermodal truck driver use Chronic kidney disease stage: on chronic dialysis Qualified Code(s): E11.22 - Type 2 diabetes mellitus with diabetic chronic kidney disease; N18.6 - End stage renal disease; N18.6 - End stage renal disease; N18.6 - End stage renal disease; N18.6 - End stage renal disease; Z79.4 - correction (current) use of insulin; Z79.4 - watermaster (current) use of insulin; Z79.4 - correction (current ) use of insulin; Z79.4 - watermaster (current) use of insulin; Z99.2 - Dependence on renal dialysis; Z99.2 - Dependence on renal dialysis; Z99.2 - Dependence on renal dialysis; Z99.2 - Dependence on renal dialysis (5) ESRD (end stage renal disease) on dialysis Code(s): N18.6 - END STAGE RENAL DISEASE; Z99.2 - DEPENDENCE ON RENAL DIALYSIS (6) Hypertension Code(s): I10 - ESSENTIAL (PRIMARY) HYPERTENSION Qualifiers: Hypertension type: essential hypertension Qualified Code(s): I10 - Essential (primary) hypertension Assessment/Plan Current Medications Generic Name Dose Route Start Last Admin Trade Name Freq PRN Reason Stop Dose Admin Amlodipine Besylate 10 mg 02/07/17 10:00 Norvasc - PO DAILY [facility] Aspirin 325 mg 02/07/17 10:00 Ecotrin - PO DAILY [facility] Atorvastatin Calcium 80 mg 02/06/17 22:00 Lipitor - PO HS MANDO Bacitracin 1 applic 02/06/17 20:00 Bacitracin - TP DAILY [facility] Brimonidine Tartrate 2 drop 02/07/17 10:00 Alphagan 0.2% - OU DAILY [facility]ANDO Bupropion HCl 300 mg 02/07/17 10:00 Wellbutrin Xl - PO DAILY [facility] Carvedilol 25 mg 02/06/17 22:00 Coreg - PO BID [facility] Clopidogrel Bisulfate 75 mg 02/07/17 10:00 Plavix - PO DAILY [facility] Insulin Detemir 7 units 02/06/17 22:00 Levemir Vial SQ HS MANDO Pantoprazole Sodium 40 mg 02/07/17 10:00 Protonix - PO DAILY [facility] Timolol Maleate 2 drop 02/07/17 10:00 Timoptic 0.5% OU DAILY [facility] Topiramate 50 mg 02/06/17 22:00 Topamax - PO BID MANDO Impression 1. ESRD 2. r/o CVA 3. DM 4. HLD 5. HTN 6. anemia 7. anxiety 8. infected right foot ulcer Plan - neuro eval - will arrange for HD in am - neuro evaluation - no acute cva on ct report, pt was not a tpa candidate - will need admission to hospital - pt on a MWF schedule - HD: [facility] 2 k bath, 4 hrs, 116.5 kg, 1000 epogen, hectorol 4 mcg, venofer , 15 gauge long needle
[2017-02-06] MEDS: TOPIRAMATE 25 MG TABLET (FP) PO SCH (22:55)
[2017-02-07] MEDS ORDERED: ATORVASTATIN CA 80 MG TABLET (FP) ONE (00:13)
[2017-02-07] MEDS ORDERED: CARVEDILOL 12.5 MG TABLET (FP) ONE (00:13)
[2017-02-07] MEDS ORDERED: TOPIRAMATE 25 MG TABLET (FP) ONE (00:13)
[2017-02-07] MEDS ORDERED: INSULIN DETEMIR 100 UNITS/ML MDV SQ ONE (00:14)
--- NOTE | 2017-02-07 09:27 | PN ---
Progress Note (short form) - Note Progress Note: Neurology History of Present Illness Patient is a 51F with history of IDDM, prior stroke, and ESRD on dialysis MWF presented to the ER complaining of lethargy along with decreased strength in right leg and arm with right sided facial droop. She was code moseley patient and I spoke with resident. Ct scan of head was completed and no evidence of acute infarction, but late subacute left frontal cortical infarct noted along with chronic right frontopariental cortical infarct and chronic microvascular changes. Prior notes indicate she has had previous right-sided weakness. Due to her recent subacute stroke, was not a TPA candidate. She was more awake and alert this morning, knows that she's in the hospital. Her biggest complaint is abdominal and reports ongoing discomfort. CT abdomen/pelvis completed. Active Medications Amlodipine Besylate (Norvasc -) 10 mg PO DAILY [facility] Aspirin (Ecotrin -) 325 mg PO DAILY [facility] Atorvastatin Calcium (Lipitor -) 80 mg PO HS [facility] Last Admin: 02/06/17 22:50 Dose: 80 mg Bacitracin (Bacitracin -) 1 applic TP DAILY [facility] Last Admin: 02/06/17 22:05 Dose: 1 applic Brimonidine Tartrate (Alphagan 0.2% -) 2 drop OU DAILY [facility] Bupropion HCl (Wellbutrin Xl -) 300 mg PO DAILY [facility] Carvedilol (Coreg -) 25 mg PO BID [facility] Last Admin: 02/06/17 22:50 Dose: 25 mg Clopidogrel Bisulfate (Plavix -) 75 mg PO DAILY [facility] Insulin Detemir (Levemir Vial) 7 units SQ HS [facility] Last Admin: 02/06/17 22:45 Dose: 7 units Pantoprazole Sodium (Protonix -) 40 mg PO DAILY [facility] Timolol Maleate (Timoptic 0.5%) 2 drop OU DAILY [facility] Topiramate (Topamax -) 50 mg PO BID [facility] Last Admin: 02/06/17 22:55 Dose: 50 mg *Physical Exam Vital Signs Period Temp Pulse Resp BP Sys/[place] Pulse Ox Last 24 Hr 98.4 F-98.5 F 95-115 18-24 139-195/87-102 95-100 GENERAL: Lethargivc but arousable, confused, answering questions in appropriately HEAD: Wound on lower right lip, normocephalic EYES: PERRLA, EOMI, sclera anicteric, conjunctiva clear ENT: Auricles normal inspection, hearing grossly normal, nares patent, oropharynx clear without exudates. Dry mucosa NECK: Normal ROM, supple, no lymphadenopathy, JVD, or masses LUNGS: No distress, speaks full sentences, clear to auscultation bilaterally HEART: Regular rate and rhythm, normal S1 and S2, no murmurs, rubs or gallops, peripheral pulses normal and equal bilaterally. ABDOMEN: Soft, nontender, normoactive bowel sounds. No guarding, no rebound. No masses EXTREMITIES: Normal inspection, Normal range of motion, no edema. No clubbing or cyanosis. NEUROLOGICAL: Right sided facial droop. Using inappropriate words. 3/5 right arm strength. 2/5 right leg strength. SKIN: Warm, Dry, normal turgor, no rashes or lesions noted. - RADIOLOGY CT head reviewed CT abdomen/pelvis reviewed Medical Decision Making 51F with history of IDDM, prior stroke, and ESRD on dialysis MWF presented to the ER complaining of lethargy along with decreased strength in right leg and arm with right sided facial droop. She was code moseley patient and admitted for further managment. Ct scan of head was completed and no evidence of acute infarction, but late subacute left frontal cortical infarct noted along with chronic right frontopariental cortical infarct and chronic microvascular changes. Due to her recent subacute stroke, was not a TPA candidate. Will order MRI brain to further evaluate for infarct Already on dual antiplatelet ASA and Plavix, medication compliance would be necessary Check labs, monitor mental status, possibly toxic, metabolic encephalopathy Monitor BP, goal < 140/90 Physical therapy Tight glycemic control Follow up CT abd/pelvis Consider GI consult, renal consulted already Monitor Lytes, labs Mental status is improving
[2017-02-07 09:47] LABS: BASOPHIL 0.8 % (0-2.0); EOSINOPHIL 2.2 % (0-4.5); MCH 32.2 pg (25.7-33.7); MCHC 32.1 g/dl (32.0-36.0); MEAN CELL VOLUME 100.1 fl (80-96); NEUTROPHILS 76.5 % (42.8-82.8); PLATELET COUNT 177 K/MM3 (134-434)
--- NOTE | 2017-02-07 09:55 | CONSULT ---
Admitting History and Physical - Primary Care Physician PCP: Jolanta Harris - Admission History of Present Illness: 51F with history of IDDM, prior stroke, and ESRD on dialysis MWF presented to the ER complaining of lethargy along with decreased strength in right leg and arm with right sided facial droop. CT head (-) acute infarct. Pt last seen by me 07/2016, at which time language function was intact and she was a good historian. Seen bedside today with pt reporting difficulty talking. She told me she "fell Monday night" and "hit (her) lip". Verbal output is perseverative, with anomia,and paraphasic errors. She was getting agitated, frustrated that she could not express herself. Nursing made aware.This is a functional change for her. 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 Cardiovascular: Yes: HTN, Hyperlipdemia, Other (Peripheral vascular disease) Pulmonary: Yes: Asthma, Sleep Apnea Gastrointestinal: Yes: Constipation Renal/: Yes: Renal Failure, Hemodialysis ...LMP: 01/17/17 Heme/Onc: Yes: Anemia Rheumatology: Yes: Other (See HPI) Endocrine: Yes: Diabetes Mellitus - Past Surgical History Past Surgical History: Yes: Amputation, AV Fistula/Graft, - Smoking History Smoking history: Never smoked Have you smoked in the past 12 months: No Aproximately how many cigarettes per day: 0 - Alcohol/Substance Use Hx Alcohol Use: No - Social History ADL: Independent History of Recent Travel: No History - Admission Reason For Visit: CEREBRAL VASCULAR ACCIDENT - Diagnostics X-ray: Report Reviewed CT Scan: Report Reviewed (No evidence of acute infarction. Late subacute left frontal cortical infarct . Chronic right frontopariental cortical infarct and chronic microvascular changes.) MRI: Pending - General Mental Status: Alert and Oriented, Awake and Alert, Able to Follow Commands, Anxious (frustrated with perseverative verbal output.) Attention: Intact Ability to Follow Directions: Fair Head/Neck Control: Good - Hearing Hearing: Functional Hearing: Normal Speech Evaluation - Communication Primary Language: GE[place]GI[place] Communication: Yes: Aphasia (Non fluent, omission of subject, perseverative, paraphasic errors.) Oral Expression Ability: Yes: Moderate Impairment - Speech Production Able to Make Needs Known: Yes: Mildly Impaired, Moderately Impaired Intelligibility: Yes: WNL - Speech Characteristics Voice Loudness: Normal Voice Pitch: Yes: Normal Voice Phonatory-based Quality: Yes: Normal Speech Pattern: Impaired Nasal Resonance: Normal Articulation: Yes: Precise Rate of Speech: Intact - Language/Auditory Comprehension Follows: Yes: 1 Stage Simple Commands Observation: Able to respond to yes/no queries: Yes, Yes/No Confusion: No, Comprehends Conversational Speech: Yes (simple commands,agitated, further compre. assessment deferred) - Language/Verbal Expression Aphasia: Yes: Nonfluent, Anomia, Paraphrasic Errors, Grammatic Errors Able to Respond to Simple Queries: Yes: Moderately Impaired Able to Communicate Wants and Needs: Yes: Moderately Impaired Functional Communication Status: Yes: Moderately Impaired - Memory/Perception terminal makeup operator Memory: Yes: WNL (seems intact) Short Term Memory: Yes: WNL (seems intact) - Swallow Evaluation/Bedside Assessment Current Nutritional Intake: Regular, Thin Liquids Oral Secretions: Yes: WFL Dentition: Yes: Adequate Facial Symmetry at Rest: Symmetrical Facial Symmetry on Retraction: Facial Droop Right (reduced vom/rom) Pucker Lips: Reduced ROM Smile: Reduced ROM Lingual Movement: Symmetric Lingual Speed of Movement: Normal Lingual Movement Strgth Against Opposition: Normal Lingual Movement Characteristics: Normal Velopharyngeal Movement: Normal Laryngeal Elevation: WFL Laryngeal Movement: Able to Palpate Rate of Intake: WFL Labial Seal: WFL Chewing: WFL Oral Prep Time: WFL A-P Transit: WFL Pocketing: None Timing of Swallow: WFL Coughing/Throat Clear: No Change in Voice: No Recommendations - Speech Evaluation, Impression/Plan Impression: New onset non-fluent Aphasia, as compared to my last session 2016. r/o acute cva. Seems cognitively pretty good. Frustrated by impaired functional communication - Disposition Discharge to: To be Determined (STR?) - Dysphagia Impressions/Plan Swallowing Skills: WF Dysphagia Impressions: No Impairment *Silent aspiration: cannot be R/O at bedside - Recommendations Diet Consistency: Regular Medication Administration: Whole with water Liquids: Thin Liquids
[2017-02-07] MEDS ORDERED: PATIENT'S OWN MEDICATION (NON-FORMULARY) (Brimonidine Tartrate/Timolol [Combigan 0.2%-0.5% OU SCH (10:00)
[2017-02-07 10:53] LABS: ALBUMIN 3.5 g/dl (3.4-5.0); ALK PHOS 59 U/L (45-117); ANION GAP 15 (8-16); BILIRUBIN,TOTAL 0.4 mg/dL (0.2-1.0); CALCIUM 9.4 mg/dL (8.5-10.1); CO2 24 mmol/L (21-32); GLUCOSE,RANDOM 174 mg/dL (74-106); SGOT/AST 41 U/L (15-37); SGPT/ALT 38 U/L (12-78); TOT PROT 6.7 g/dl (6.4-8.2)
[2017-02-07 13:07] LABS: CREATININE 14.4 mg/dL (0.55-1.02)
--- NOTE | 2017-02-07 14:40 | PN ---
Progress Note, Physician History of Present Illness: Pt seen and examined at bedside. She is much more awake and coherent than she was yesterday. She however does remember seeing me in the ER and our conversation. She denies shortness of breath. She is currently getting HD. - Current Medication List Current Medications: Active Medications Amlodipine Besylate (Norvasc -) 10 mg PO DAILY [facility] Aspirin (Ecotrin -) 325 mg PO DAILY [facility] Atorvastatin Calcium (Lipitor -) 80 mg PO HS [facility] Last Admin: 02/06/17 22:50 Dose: 80 mg Bacitracin (Bacitracin -) 1 applic TP DAILY [facility] Last Admin: 02/06/17 22:05 Dose: 1 applic Brimonidine Tartrate (Alphagan 0.2% -) 2 drop OU DAILY [facility] Bupropion HCl (Wellbutrin Xl -) 300 mg PO DAILY [facility] Carvedilol (Coreg -) 25 mg PO BID [facility] Last Admin: 02/06/17 22:50 Dose: 25 mg Clopidogrel Bisulfate (Plavix -) 75 mg PO DAILY [facility] Insulin Detemir (Levemir Vial) 7 units SQ HS [facility] Last Admin: 02/06/17 22:45 Dose: 7 units Pantoprazole Sodium (Protonix -) 40 mg PO DAILY [facility] Timolol Maleate (Timoptic 0.5%) 2 drop OU DAILY [facility] Topiramate (Topamax -) 50 mg PO BID [facility] Last Admin: 02/06/17 22:55 Dose: 50 mg - Objective Vital Signs: Vital Signs Temperature 98.5 F 02/07/17 06:00 Pulse Rate 99 H 02/07/17 13:00 Respiratory Rate 18 02/07/17 13:00 Blood Pressure 171/105 02/07/17 13:00 O2 Sat by Pulse Oximetry (%) 97 02/07/17 01:00 Constitutional: Yes: Calm Eyes: Yes: Conjunctiva Clear HENT: Yes: Atraumatic Cardiovascular: Yes: S1, S2 Respiratory: Yes: CTA Bilaterally Gastrointestinal: Yes: Soft, Abdomen, Obese Genitourinary: Yes: WNL Musculoskeletal: Yes: Muscle Weakness Edema: Yes Edema: LLE: Trace, RLE: Trace Neurological: Yes: Oriented, Pre-Existing Deficit Psychiatric: Yes: Oriented Labs: CBC, BMP 02/07/17 09:33 02/07/17 09:33 INR, PTT INR 1.08 (0.82-1.09) 02/06/17 12:35 Problem List - Problems (1) Anemia Code(s): D64.9 - ANEMIA, UNSPECIFIED Qualifiers: Chronic kidney disease stage: on chronic dialysis (2) Cellulitis and abscess of foot Code(s): L03.119 - CELLULITIS OF UNSPECIFIED PART OF LIMB; L02.619 - CUTANEOUS ABSCESS OF UNSPECIFIED FOOT (3) TIA (transient ischemic attack) Code(s): G45.9 - TRANSIENT CEREBRAL ISCHEMIC ATTACK, UNSPECIFIED Qualifiers: Transient cerebral ischemia type: unspecified Qualified Code(s): G45.9 - Transient cerebral ischemic attack, unspecified (4) Diabetes Code(s): E11.9 - TYPE 2 DIABETES MELLITUS WITHOUT COMPLICATIONS Qualifiers: Diabetes mellitus type: type 2 Diabetes mellitus complication status: with kidney complications Diabetes mellitus complication detail: with chronic kidney disease Diabetes mellitus nursing home insulin use: with mortgage counselor use Chronic kidney disease stage: on chronic dialysis Qualified Code(s): E11.22 - Type 2 diabetes mellitus with diabetic chronic kidney disease; N18.6 - End stage renal disease; Z99.2 - Dependence on renal dialysis; Z99.2 - Dependence on renal dialysis; Z99.2 - Dependence on renal dialysis; N18.6 - End stage renal disease; N18.6 - End stage renal disease; N18.6 - End stage renal disease ; Z79.4 - avionics test technician (current) use of insulin; Z79.4 - penitentiary (current) use of insulin; Z79.4 - avionics test technician (current) use of insulin; Z79.4 - penitentiary ( current) use of insulin; Z99.2 - Dependence on renal dialysis (5) ESRD (end stage renal disease) on dialysis Code(s): N18.6 - END STAGE RENAL DISEASE; Z99.2 - DEPENDENCE ON RENAL DIALYSIS (6) Hypertension Code(s): I10 - ESSENTIAL (PRIMARY) HYPERTENSION Qualifiers: Hypertension type: essential hypertension Qualified Code(s): I10 - Essential (primary) hypertension Assessment/Plan Current Medications Generic Name Dose Route Start Last Admin Trade Name Freq PRN Reason Stop Dose Admin Amlodipine Besylate 10 mg 02/07/17 10:00 Norvasc - PO DAILY [facility] Aspirin 325 mg 02/07/17 10:00 Ecotrin - PO DAILY [facility] Atorvastatin Calcium 80 mg 02/06/17 22:00 02/06/17 22:50 Lipitor - PO 80 mg HS [facility] Administration Bacitracin 1 applic 02/06/17 20:00 02/06/17 22:05 Bacitracin - TP 1 applic DAILY [facility] Administration Brimonidine Tartrate 2 drop 02/07/17 10:00 Alphagan 0.2% - OU DAILY [facility] Bupropion HCl 300 mg 02/07/17 10:00 Wellbutrin Xl - PO DAILY [facility] Carvedilol 25 mg 02/06/17 22:00 02/06/17 22:50 Coreg - PO 25 mg BID [facility] Administration Clopidogrel Bisulfate 75 mg 02/07/17 10:00 Plavix - PO DAILY [facility] Insulin Detemir 7 units 02/06/17 22:00 02/06/17 22:45 Levemir Vial SQ 7 units HS [facility] Administration Pantoprazole Sodium 40 mg 02/07/17 10:00 Protonix - PO DAILY [facility] Timolol Maleate 2 drop 02/07/17 10:00 Timoptic 0.5% OU DAILY [facility] Topiramate 50 mg 02/06/17 22:00 02/06/17 22:55 Topamax - PO 50 mg BID [facility] Administration Impression 1. ESRD 2. r/o CVA 3. DM 4. HLD 5. HTN 6. anemia 7. anxiety 8. infected right foot ulcer Plan - HD today - mental status is improved - neurology follow up - will arrange for HD again tomorrow to get pt back on schedule - HD: [facility] 2 k bath, 4 hrs, 116.5 kg, 1000 epogen, hectorol 4 mcg, venofer , 15 gauge long needle
--- NOTE | 2017-02-07 15:42 | EKG ---
Test Reason : Blood Pressure : / mmHG Vent. Rate : 098 BPM Atrial Rate : 098 BPM P-R Int : 164 ms QRS Dur : 074 ms QT Int : 372 ms P-R-T Axes : 042 001 026 degrees QTc Int : 474 ms NORMAL SINUS RHYTHM BASELINE ARTIFACT POOR R WAVE PROGRESSION V1 TO V3 LOW VOLTAGE QRS BORDERLINE ECG WHEN COMPARED WITH ECG OF 02-JAN-2017 19:19, NO SIGNIFICANT CHANGE WAS FOUND Confirmed by LAVON CHAPMAN MD ([id number]) on 02/07/2017 3:41:50 PM Referred By: Confirmed By:LAVON CHAPMAN MD
--- NOTE | 2017-02-07 17:06 | PN ---
Progress Note, Physician - Current Medication List Current Medications: Active Medications Amlodipine Besylate (Norvasc -) 10 mg PO DAILY [facility] Aspirin (Ecotrin -) 325 mg PO DAILY [facility] Atorvastatin Calcium (Lipitor -) 80 mg PO HS [facility] Last Admin: 02/06/17 22:50 Dose: 80 mg Bacitracin (Bacitracin -) 1 applic TP DAILY [facility] Last Admin: 02/06/17 22:05 Dose: 1 applic Brimonidine Tartrate (Alphagan 0.2% -) 2 drop OU DAILY [facility] Bupropion HCl (Wellbutrin Xl -) 300 mg PO DAILY [facility] Carvedilol (Coreg -) 25 mg PO BID [facility] Last Admin: 02/06/17 22:50 Dose: 25 mg Clopidogrel Bisulfate (Plavix -) 75 mg PO DAILY [facility] Insulin Detemir (Levemir Vial) 7 units SQ HS [facility] Last Admin: 02/06/17 22:45 Dose: 7 units Pantoprazole Sodium (Protonix -) 40 mg PO DAILY [facility] Paricalcitol (Zemplar -) 2 mcg IVPUSH ONCE ONE Stop: 02/08/17 14:41 Timolol Maleate (Timoptic 0.5%) 2 drop OU DAILY [facility] Topiramate (Topamax -) 50 mg PO BID [facility] Last Admin: 02/06/17 22:55 Dose: 50 mg - Objective Vital Signs: Vital Signs Temperature 98.2 F 02/07/17 14:21 Pulse Rate 94 H 02/07/17 15:00 Respiratory Rate 18 02/07/17 15:00 Blood Pressure 166/93 02/07/17 15:00 O2 Sat by Pulse Oximetry (%) 97 02/07/17 01:00 Constitutional: Yes: No Distress HENT: Yes: Atraumatic Neck: Yes: Supple Cardiovascular: Yes: Regular Rate and Rhythm Respiratory: Yes: CTA Bilaterally Gastrointestinal: Yes: Normal Bowel Sounds Extremities: Yes: WNL Neurological: Yes: Alert, Other (exam not much changed from yesterday) Labs: CBC, BMP 02/07/17 09:33 02/07/17 09:33 INR, PTT INR 1.08 (0.82-1.09) 02/06/17 12:35 Problem List - Problems (1) CVA (cerebral vascular accident) Assessment/Plan: ct scan done no acute infarct pt eval Code(s): I63.9 - CEREBRAL INFARCTION, UNSPECIFIED (2) Asthma Assessment/Plan: stable prn duo nebs Code(s): J45.909 - UNSPECIFIED ASTHMA, UNCOMPLICATED Qualifiers: Asthma severity: unspecified severity Asthma complication type: uncomplicated (3) Diabetes Assessment/Plan: on insulin bgms Code(s): E11.9 - TYPE 2 DIABETES MELLITUS WITHOUT COMPLICATIONS Qualifiers: Diabetes mellitus type: type 2 Diabetes mellitus complication status: with kidney complications Diabetes mellitus complication detail: with chronic kidney disease Diabetes mellitus snf insulin use: with snf use Chronic kidney disease stage: on chronic dialysis Qualified Code(s): E11.22 - Type 2 diabetes mellitus with diabetic chronic kidney disease; N18.6 - End stage renal disease; Z99.2 - Dependence on renal dialysis; Z99.2 - Dependence on renal dialysis; Z99.2 - Dependence on renal dialysis; N18.6 - End stage renal disease; N18.6 - End stage renal disease; N18.6 - End stage renal disease ; Z79.4 - lbd teacher (current) use of insulin; Z79.4 - lbd teacher (current) use of insulin; Z79.4 - lbd teacher (current) use of insulin; Z79.4 - skilled nursing ( current) use of insulin; Z99.2 - Dependence on renal dialysis (4) ESRD (end stage renal disease) Assessment/Plan: on hd dr ha Code(s): N18.6 - END STAGE RENAL DISEASE
[2017-02-07] MEDS: CLOPIDOGREL BISULFATE 75 MG TABLET (FP) PO SCH (17:47)
[2017-02-07] MEDS: amLODIPine BESYLATE 10 MG TABLET (FP) PO SCH (17:47)
[2017-02-07] MEDS: ASPIRIN 325 MG ENTERIC COATED TABLET (FP) PO SCH (17:47)
[2017-02-07] MEDS: PANTOPRAZOLE 40 MG TABLET (FP) PO SCH (17:47)
[2017-02-07] MEDS: BACITRACIN 15 GM TUBE TOPICAL OINTMENT TP SCH (17:48)
[2017-02-07] MEDS: CARVEDILOL 25 MG TABLET (FP) PO SCH ×2 (17:49→21:27)
[2017-02-07] MEDS: TOPIRAMATE 25 MG TABLET (FP) PO SCH ×2 (17:50→22:07)
[2017-02-07] MEDS: TIMOLOL 0.5% OPHTHALMIC SOL 5 ML BOTTLE OU SCH (20:10)
[2017-02-07] MEDS: BRIMONIDINE TARTRATE 0.2% OPHTHALMIC 5 ML BOTTLE OU SCH (20:10)
[2017-02-07] MEDS: ATORVASTATIN CA 80 MG TABLET (FP) PO SCH (21:27)
[2017-02-07] MEDS: INSULIN DETEMIR 100 UNITS/ML MDV SQ SCH (21:31)
[2017-02-07] MEDS ORDERED: ALPRAZolam 0.25 MG TABLET PO ONE (22:45)
--- NOTE | 2017-02-08 09:43 | PN ---
Progress Note (short form) - Note Progress Note: Neurology History of Present Illness Patient is a 51F with history of IDDM, prior stroke, and ESRD on dialysis MWF presented to the ER complaining of lethargy along with decreased strength in right leg and arm with right sided facial droop. She was code moseley patient and I spoke with resident. Ct scan of head was completed and no evidence of acute infarction, but late subacute left frontal cortical infarct noted along with chronic right frontopariental cortical infarct and chronic microvascular changes. Prior notes indicate she has had previous right-sided weakness. Due to her recent subacute stroke, was not a TPA candidate. She is sitting up in chair and comfortable this morning. No new complaints. Awaiting MRI brain today. Nurse informed me that patient's family called and mentioned she was put on Keppra by Dr. Faye and I recommended restarting. Nurse to confirm exact dose and frequency and will restart. Active Medications Alprazolam (Xanax -) 0.5 mg PO ONCE ONE Stop: 02/07/17 22:46 Amlodipine Besylate (Norvasc -) 10 mg PO DAILY [facility] Last Admin: 02/07/17 17:47 Dose: 10 mg Aspirin (Ecotrin -) 325 mg PO DAILY [facility] Last Admin: 02/07/17 17:47 Dose: 325 mg Atorvastatin Calcium (Lipitor -) 80 mg PO HS [facility] Last Admin: 02/07/17 21:27 Dose: 80 mg Bacitracin (Bacitracin -) 1 applic TP DAILY [facility] Last Admin: 02/07/17 17:48 Dose: 1 applic Brimonidine Tartrate (Alphagan 0.2% -) 2 drop OU DAILY [facility] Last Admin: 02/07/17 20:10 Dose: Not Given Bupropion HCl (Wellbutrin Xl -) 300 mg PO DAILY [facility] Last Admin: 02/07/17 17:48 Dose: 300 mg Carvedilol (Coreg -) 25 mg PO BID [facility] Last Admin: 02/07/17 21:27 Dose: 25 mg Clopidogrel Bisulfate (Plavix -) 75 mg PO DAILY [facility] Last Admin: 02/07/17 17:47 Dose: 75 mg Insulin Detemir (Levemir Vial) 7 units SQ HS [facility] Last Admin: 02/07/17 21:31 Dose: 7 units Pantoprazole Sodium (Protonix -) 40 mg PO DAILY [facility] Last Admin: 02/07/17 17:47 Dose: 40 mg Paricalcitol (Zemplar -) 2 mcg IVPUSH ONCE ONE Stop: 02/08/17 14:41 Timolol Maleate (Timoptic 0.5%) 2 drop OU DAILY [facility] Last Admin: 02/07/17 20:10 Dose: Not Given Topiramate (Topamax -) 50 mg PO BID [facility] Last Admin: 02/07/17 22:07 Dose: 50 mg *Physical Exam Vital Signs Temperature 98.0 F 02/08/17 06:00 Pulse Rate 85 02/08/17 06:00 Respiratory Rate 20 02/08/17 08:02 Blood Pressure 129/70 02/08/17 06:00 O2 Sat by Pulse Oximetry (%) 97 02/08/17 08:02 GENERAL: Lethargivc but arousable, confused, answering questions in appropriately HEAD: Wound on lower right lip, normocephalic EYES: PERRLA, EOMI, sclera anicteric, conjunctiva clear ENT: Auricles normal inspection, hearing grossly normal, nares patent, oropharynx clear without exudates. Dry mucosa NECK: Normal ROM, supple, no lymphadenopathy, JVD, or masses LUNGS: No distress, speaks full sentences, clear to auscultation bilaterally HEART: Regular rate and rhythm, normal S1 and S2, no murmurs, rubs or gallops, peripheral pulses normal and equal bilaterally. ABDOMEN: Soft, nontender, normoactive bowel sounds. No guarding, no rebound. No masses EXTREMITIES: Normal inspection, Normal range of motion, no edema. No clubbing or cyanosis. NEUROLOGICAL: Right sided facial droop. Using inappropriate words. 3/5 right arm strength. 2/5 right leg strength. SKIN: Warm, Dry, normal turgor, no rashes or lesions noted. - RADIOLOGY CT head reviewed CT abdomen/pelvis reviewed Medical Decision Making 51F with history of IDDM, prior stroke, and ESRD on dialysis MWF presented to the ER complaining of lethargy along with decreased strength in right leg and arm with right sided facial droop. She was code moseley patient and admitted for further managment. Ct scan of head was completed and no evidence of acute infarction, but late subacute left frontal cortical infarct noted along with chronic right frontopariental cortical infarct and chronic microvascular changes. Due to her recent subacute stroke, was not a TPA candidate. MRI brain to further evaluate for infarct, clinically appears improved Already on dual antiplatelet ASA and Plavix, medication compliance would be necessary Check labs, monitor mental status, possibly toxic, metabolic encephalopathy Will order keppra once medication dose and frequency determined Monitor BP, goal < 140/90 Physical therapy Tight glycemic control Follow up CT abd/pelvis Mental status is improving
[2017-02-08] MEDS ORDERED: PT OWN MED DRAWER 7, Y5N ONE ×2 (10:13→21:04)
[2017-02-08] MEDS: CLOPIDOGREL BISULFATE 75 MG TABLET (FP) PO SCH (10:19)
[2017-02-08] MEDS: PANTOPRAZOLE 40 MG TABLET (FP) PO SCH (10:19)
[2017-02-08] MEDS: TIMOLOL 0.5% OPHTHALMIC SOL 5 ML BOTTLE OU SCH (10:19)
[2017-02-08] MEDS: CARVEDILOL 25 MG TABLET (FP) PO SCH ×2 (10:20→21:11)
[2017-02-08] MEDS: TOPIRAMATE 25 MG TABLET (FP) PO SCH ×2 (10:20→21:12)
--- NOTE | 2017-02-08 10:21 | PN ---
Progress Note, AUTOMOBILE B[employer]KE [employer]DER - Note Progress Note: Pt seen OOB, in chair, calm, fed herself breakfast. Expressive Aphasia much improved as compared to yesterday. Pt able to name objects, repeat, produce phrases appropriately without paraphasic errors. Fluency is not normal but much improved. I do not know pt's recent communication baseline, having seen her last in Jul, 2016. Pt is oriented and aware of recent events. 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 Selected Entries 02/06/17 02/06/17 02/06/17 10:59 13:29 14:23 Breakfast Temperature Pulse Rate 105 H Pulse Rate [ 103 H 103 H Left Radial] Blood Pressure 195/100 Blood Pressure 188/96 193/102 [Left Arm] 02/06/17 02/06/17 02/07/17 15:42 18:48 01:00 Breakfast Temperature 98.4 F Pulse Rate 103 H Pulse Rate [ 106 H 115 H Left Radial] Blood Pressure 154/91 Blood Pressure 187/99 166/91 [Left Arm] 02/07/17 02/07/17 02/07/17 06:00 10:50 11:00 Breakfast 50% Temperature 98.5 F Pulse Rate 95 H 99 H 103 H Pulse Rate [ Left Radial] Blood Pressure 139/87 175/92 190/116 Blood Pressure [Left Arm] 02/07/17 02/07/17 02/07/17 11:30 12:00 12:30 Breakfast Temperature Pulse Rate 100 H 105 H 101 H Pulse Rate [ Left Radial] Blood Pressure 140/96 150/98 179/98 Blood Pressure [Left Arm] 02/07/17 02/07/17 02/07/17 13:00 13:30 14:00 Breakfast Temperature Pulse Rate 99 H 98 H 103 H Pulse Rate [ Left Radial] Blood Pressure 171/105 155/96 157/92 Blood Pressure [Left Arm] 02/07/17 02/07/17 02/07/17 14:21 14:30 15:00 Breakfast Temperature 98.2 F Pulse Rate 99 H 99 H 94 H Pulse Rate [ Left Radial] Blood Pressure 134/82 134/83 166/93 Blood Pressure [Left Arm] 02/07/17 02/07/17 02/08/17 18:00 22:00 02:00 Breakfast Temperature 98.7 F 98.0 F 98.2 F Pulse Rate 102 H 99 H 89 Pulse Rate [ Left Radial] Blood Pressure 158/90 153/82 121/74 Blood Pressure [Left Arm] 02/08/17 02/08/17 06:00 10:17 Breakfast Temperature 98.0 F 98 F Pulse Rate 85 89 Pulse Rate [ Left Radial] Blood Pressure 129/70 130/82 Blood Pressure [Left Arm] Laboratory Tests 02/06/17 02/07/17 12:35 09:33 WBC 15.7 H D 12.0 H Pt is tolerating diet well. Case reviewed with Neurology, nursing. Pending MRI. Pt stated she will get Xanax to her her tolerate MRI.
[2017-02-08] MEDS: BACITRACIN 15 GM TUBE TOPICAL OINTMENT TP SCH (10:27)
[2017-02-08] MEDS: BRIMONIDINE TARTRATE 0.2% OPHTHALMIC 5 ML BOTTLE OU SCH (10:27)
[2017-02-08] MEDS: ASPIRIN 325 MG ENTERIC COATED TABLET (FP) PO SCH (10:27)
--- NOTE | 2017-02-08 12:07 | PN ---
Progress Note, Physician History of Present Illness: Pt seen and examined at bedside. She feels much better. Mental status is improving. - Current Medication List Current Medications: Active Medications Alprazolam (Xanax -) 0.5 mg PO ONCE ONE Stop: 02/07/17 22:46 Amlodipine Besylate (Norvasc -) 10 mg PO DAILY [facility] Last Admin: 02/07/17 17:47 Dose: 10 mg Aspirin (Ecotrin -) 325 mg PO DAILY [facility] Last Admin: 02/08/17 10:27 Dose: 325 mg Atorvastatin Calcium (Lipitor -) 80 mg PO HS [facility] Last Admin: 02/07/17 21:27 Dose: 80 mg Bacitracin (Bacitracin -) 1 applic TP DAILY [facility] Last Admin: 02/08/17 10:27 Dose: 1 applic Brimonidine Tartrate (Alphagan 0.2% -) 2 drop OU DAILY [facility] Last Admin: 02/08/17 10:27 Dose: Not Given Bupropion HCl (Wellbutrin Xl -) 300 mg PO DAILY [facility] Last Admin: 02/08/17 10:18 Dose: 300 mg Carvedilol (Coreg -) 25 mg PO BID [facility] Last Admin: 02/08/17 10:20 Dose: 25 mg Clopidogrel Bisulfate (Plavix -) 75 mg PO DAILY [facility] Last Admin: 02/08/17 10:19 Dose: 75 mg Insulin Detemir (Levemir Vial) 7 units SQ HS [facility] Last Admin: 02/07/17 21:31 Dose: 7 units Pantoprazole Sodium (Protonix -) 40 mg PO DAILY [facility] Last Admin: 02/08/17 10:19 Dose: 40 mg Paricalcitol (Zemplar -) 2 mcg IVPUSH ONCE ONE Stop: 02/08/17 14:41 Timolol Maleate (Timoptic 0.5%) 2 drop OU DAILY [facility] Last Admin: 02/08/17 10:19 Dose: Not Given Topiramate (Topamax -) 50 mg PO BID [facility] Last Admin: 02/08/17 10:20 Dose: 50 mg - Objective Vital Signs: Vital Signs Temperature 98 F 02/08/17 10:17 Pulse Rate 89 02/08/17 10:17 Respiratory Rate 20 02/08/17 10:17 Blood Pressure 130/82 02/08/17 10:17 O2 Sat by Pulse Oximetry (%) 97 02/08/17 08:02 Constitutional: Yes: Calm Eyes: Yes: Conjunctiva Clear HENT: Yes: Atraumatic Cardiovascular: Yes: S1, S2 Respiratory: Yes: CTA Bilaterally Gastrointestinal: Yes: Soft, Abdomen, Obese Genitourinary: Yes: WNL Musculoskeletal: Yes: Muscle Weakness Edema: Yes Edema: LLE: Trace, RLE: Trace Neurological: Yes: Oriented Psychiatric: Yes: Oriented Labs: CBC, BMP 02/07/17 09:33 02/07/17 09:33 INR, PTT INR 1.08 (0.82-1.09) 02/06/17 12:35 Problem List - Problems (1) Anemia Code(s): D64.9 - ANEMIA, UNSPECIFIED Qualifiers: Chronic kidney disease stage: on chronic dialysis (2) Cellulitis and abscess of foot Code(s): L03.119 - CELLULITIS OF UNSPECIFIED PART OF LIMB; L02.619 - CUTANEOUS ABSCESS OF UNSPECIFIED FOOT (3) TIA (transient ischemic attack) Code(s): G45.9 - TRANSIENT CEREBRAL ISCHEMIC ATTACK, UNSPECIFIED Qualifiers: Transient cerebral ischemia type: unspecified Qualified Code(s): G45.9 - Transient cerebral ischemic attack, unspecified (4) Diabetes Code(s): E11.9 - TYPE 2 DIABETES MELLITUS WITHOUT COMPLICATIONS Qualifiers: Diabetes mellitus type: type 2 Diabetes mellitus complication status: with kidney complications Diabetes mellitus complication detail: with chronic kidney disease Diabetes mellitus continuous churn buttermaker insulin use: with continuous churn buttermaker use Chronic kidney disease stage: on chronic dialysis Qualified Code(s): E11.22 - Type 2 diabetes mellitus with diabetic chronic kidney disease; N18.6 - End stage renal disease; Z99.2 - Dependence on renal dialysis; Z99.2 - Dependence on renal dialysis; Z99.2 - Dependence on renal dialysis; N18.6 - End stage renal disease; N18.6 - End stage renal disease; N18.6 - End stage renal disease ; Z79.4 - vermin exterminator (current) use of insulin; Z79.4 - shelter (current) use of insulin; Z79.4 - shelter (current) use of insulin; Z79.4 - shelter ( current) use of insulin; Z99.2 - Dependence on renal dialysis (5) ESRD (end stage renal disease) on dialysis Code(s): N18.6 - END STAGE RENAL DISEASE; Z99.2 - DEPENDENCE ON RENAL DIALYSIS (6) Hypertension Code(s): I10 - ESSENTIAL (PRIMARY) HYPERTENSION Qualifiers: Hypertension type: essential hypertension Qualified Code(s): I10 - Essential (primary) hypertension Assessment/Plan Current Medications Generic Name Dose Route Start Last Admin Trade Name Freq PRN Reason Stop Dose Admin Alprazolam 0.5 mg 02/07/17 22:45 Xanax - PO 02/07/17 22:46 ONCE ONE Amlodipine Besylate 10 mg 02/07/17 10:00 02/07/17 17:47 Norvasc - PO 10 mg DAILY [facility] Administration Aspirin 325 mg 02/07/17 10:00 02/08/17 10:27 Ecotrin - PO 325 mg DAILY [facility] Administration Atorvastatin Calcium 80 mg 02/06/17 22:00 02/07/17 21:27 Lipitor - PO 80 mg HS [facility] Administration Bacitracin 1 applic 02/06/17 20:00 02/08/17 10:27 Bacitracin - TP 1 applic DAILY [facility] Administration Brimonidine Tartrate 2 drop 02/07/17 10:00 02/08/17 10:27 Alphagan 0.2% - OU Not Given DAILY [facility] Bupropion HCl 300 mg 02/07/17 10:00 02/08/17 10:18 Wellbutrin Xl - PO 300 mg DAILY [facility] Administration Carvedilol 25 mg 02/06/17 22:00 02/08/17 10:20 Coreg - PO 25 mg BID [facility] Administration Clopidogrel Bisulfate 75 mg 02/07/17 10:00 02/08/17 10:19 Plavix - PO 75 mg DAILY [facility] Administration Insulin Detemir 7 units 02/06/17 22:00 02/07/17 21:31 Levemir Vial SQ 7 units HS [facility] Administration Pantoprazole Sodium 40 mg 02/07/17 10:00 02/08/17 10:19 Protonix - PO 40 mg DAILY [facility] Administration Paricalcitol 2 mcg 02/08/17 14:40 Zemplar - IVPUSH 02/08/17 14:41 ONCE ONE Timolol Maleate 2 drop 02/07/17 10:00 02/08/17 10:19 Timoptic 0.5% OU Not Given DAILY [facility] Topiramate 50 mg 02/06/17 22:00 02/08/17 10:20 Topamax - PO 50 mg BID [facility] Administration Impression 1. ESRD 2. r/o CVA 3. DM 4. HLD 5. HTN 6. anemia 7. anxiety 8. infected right foot ulcer Plan - will dialyze pt today, she will now be back on schedule and next HD treatment will be on Monday - neuro input appreciated - mental status is improved - pt has hd scheduled as outpt - HD: [facility] 2 k bath, 4 hrs, 116.5 kg, 1000 epogen, hectorol 4 mcg, venofer , 15 gauge long needle
[2017-02-08] MEDS ORDERED: PARICALCITOL 5 MCG/ML VIAL IVPUSH ONE (14:40)
[2017-02-08 16:06] LABS: ANION GAP 10 (8-16); CALCIUM 8.4 mg/dL (8.5-10.1); CO2 31 mmol/L (21-32); GLUCOSE,RANDOM 193 mg/dL (74-106)
[2017-02-08 16:14] LABS: CREATININE 10.4 mg/dL (0.55-1.02)
--- NOTE | 2017-02-08 17:56 | PN ---
Progress Note, Physician - Current Medication List Current Medications: Active Medications Alprazolam (Xanax -) 0.5 mg PO ONCE ONE Stop: 02/07/17 22:46 Amlodipine Besylate (Norvasc -) 10 mg PO DAILY [facility] Last Admin: 02/07/17 17:47 Dose: 10 mg Aspirin (Ecotrin -) 325 mg PO DAILY [facility] Last Admin: 02/08/17 10:27 Dose: 325 mg Atorvastatin Calcium (Lipitor -) 80 mg PO HS [facility] Last Admin: 02/07/17 21:27 Dose: 80 mg Bacitracin (Bacitracin -) 1 applic TP DAILY [facility] Last Admin: 02/08/17 10:27 Dose: 1 applic Brimonidine Tartrate (Alphagan 0.2% -) 2 drop OU DAILY [facility] Last Admin: 02/08/17 10:27 Dose: Not Given Bupropion HCl (Wellbutrin Xl -) 300 mg PO DAILY [facility] Last Admin: 02/08/17 10:18 Dose: 300 mg Carvedilol (Coreg -) 25 mg PO BID [facility] Last Admin: 02/08/17 10:20 Dose: 25 mg Clopidogrel Bisulfate (Plavix -) 75 mg PO DAILY [facility] Last Admin: 02/08/17 10:19 Dose: 75 mg Insulin Detemir (Levemir Vial) 7 units SQ HS [facility] Last Admin: 02/07/17 21:31 Dose: 7 units Pantoprazole Sodium (Protonix -) 40 mg PO DAILY [facility] Last Admin: 02/08/17 10:19 Dose: 40 mg Timolol Maleate (Timoptic 0.5%) 2 drop OU DAILY [facility] Last Admin: 02/08/17 10:19 Dose: Not Given Topiramate (Topamax -) 50 mg PO BID [facility] Last Admin: 02/08/17 10:20 Dose: 50 mg - Objective Vital Signs: Vital Signs Temperature 98.5 F 02/08/17 14:05 Pulse Rate 87 02/08/17 15:45 Respiratory Rate 18 02/08/17 15:45 Blood Pressure 128/88 02/08/17 15:45 O2 Sat by Pulse Oximetry (%) 97 02/08/17 08:02 Constitutional: Yes: No Distress HENT: Yes: Atraumatic Neck: Yes: Supple Cardiovascular: Yes: Regular Rate and Rhythm Respiratory: Yes: CTA Bilaterally Gastrointestinal: Yes: Normal Bowel Sounds Extremities: Yes: WNL Neurological: Yes: Alert, Oriented, Weakness, Other (R facial droop) ...Motor Strength: RUE, RLE Labs: CBC, BMP 02/07/17 09:33 02/08/17 13:50 INR, PTT INR 1.08 (0.82-1.09) 02/06/17 12:35 Problem List - Problems (1) CVA (cerebral vascular accident) Assessment/Plan: ct scan done no acute infarct awaiting mri Code(s): I63.9 - CEREBRAL INFARCTION, UNSPECIFIED (2) Asthma Assessment/Plan: stable prn duo nebs Code(s): J45.909 - UNSPECIFIED ASTHMA, UNCOMPLICATED Qualifiers: Asthma severity: unspecified severity Asthma complication type: uncomplicated (3) Diabetes Assessment/Plan: on insulin bgms Code(s): E11.9 - TYPE 2 DIABETES MELLITUS WITHOUT COMPLICATIONS Qualifiers: Diabetes mellitus type: type 2 Diabetes mellitus complication status: with kidney complications Diabetes mellitus complication detail: with chronic kidney disease Diabetes mellitus buttermilk drier operator insulin use: with long-term use Chronic kidney disease stage: on chronic dialysis Qualified Code(s): E11.22 - Type 2 diabetes mellitus with diabetic chronic kidney disease; N18.6 - End stage renal disease; N18.6 - End stage renal disease; N18.6 - End stage renal disease; N18.6 - End stage renal disease; Z79.4 - snf (current) use of insulin; Z79.4 - petroleum terminal plant operator (current) use of insulin; Z79.4 - petroleum terminal plant operator (current ) use of insulin; Z79.4 - petroleum terminal plant operator (current) use of insulin; Z99.2 - Dependence on renal dialysis; Z99.2 - Dependence on renal dialysis; Z99.2 - Dependence on renal dialysis; Z99.2 - Dependence on renal dialysis (4) ESRD (end stage renal disease) Assessment/Plan: on hd dr ha Code(s): N18.6 - END STAGE RENAL DISEASE Assessment/Plan she is dr kang private patient will change consult to him pt on keflex at home for lip laceration
[2017-02-08] MEDS ORDERED: CEPHALEXIN MONOHYDRATE 250 MG CAPSULE (FP) PO SCH (18:45)
[2017-02-08] MEDS: amLODIPine BESYLATE 10 MG TABLET (FP) PO SCH (20:38)
[2017-02-08] MEDS: INSULIN DETEMIR 100 UNITS/ML MDV SQ SCH (21:08)
[2017-02-08] MEDS: AZITHROMYCIN 250 MG TABLET PO SCH (21:10)
[2017-02-08] MEDS: levETIRAcetam 250 MG TABLET (FP) PO SCH ×2 (21:11)
[2017-02-08] MEDS: ATORVASTATIN CA 80 MG TABLET (FP) PO SCH (21:11)
[2017-02-08] MEDS: POLYETHYLENE GLYCOL 3350 119 GM BTL PO SCH (23:01)
[2017-02-09] MEDS ORDERED: PT OWN MED DRAWER 7, Y5N ONE ×3 (11:02→20:33)
[2017-02-09] MEDS: ASPIRIN 325 MG ENTERIC COATED TABLET (FP) PO SCH (11:03)
[2017-02-09] MEDS: PANTOPRAZOLE 40 MG TABLET (FP) PO SCH (11:04)
[2017-02-09] MEDS: AZITHROMYCIN 250 MG TABLET PO SCH (11:04)
[2017-02-09] MEDS: levETIRAcetam 250 MG TABLET (FP) PO SCH (11:04)
[2017-02-09] MEDS: CLOPIDOGREL BISULFATE 75 MG TABLET (FP) PO SCH (11:04)
[2017-02-09] MEDS: CARVEDILOL 25 MG TABLET (FP) PO SCH ×2 (11:04→21:00)
[2017-02-09] MEDS: amLODIPine BESYLATE 10 MG TABLET (FP) PO SCH (11:04)
[2017-02-09] MEDS: TOPIRAMATE 25 MG TABLET (FP) PO SCH ×2 (11:05→21:00)
[2017-02-09] MEDS: POLYETHYLENE GLYCOL 3350 119 GM BTL PO SCH ×2 (11:11→21:01)
[2017-02-09] MEDS: TIMOLOL 0.5% OPHTHALMIC SOL 5 ML BOTTLE OU SCH (11:11)
[2017-02-09] MEDS: BRIMONIDINE TARTRATE 0.2% OPHTHALMIC 5 ML BOTTLE OU SCH (11:11)
[2017-02-09] MEDS: BACITRACIN 15 GM TUBE TOPICAL OINTMENT TP SCH (11:15)
[2017-02-09] MEDS ORDERED: ACETAMINOPHEN 325 MG TABLET (FP) ONE (13:32)
[2017-02-09] MEDS: INSULIN DETEMIR 100 UNITS/ML MDV SQ SCH ×2 (13:35→21:00)
--- NOTE | 2017-02-09 14:01 | PN ---
Progress Note, Physician History of Present Illness: Pt seen and examined at bedside. She is awake and alert. She denies shortness of breath. - Current Medication List Current Medications: Active Medications Alprazolam (Xanax -) 0.5 mg PO ONCE ONE Stop: 02/07/17 22:46 Amlodipine Besylate (Norvasc -) 10 mg PO DAILY [facility] Last Admin: 02/09/17 11:04 Dose: 10 mg Aspirin (Ecotrin -) 325 mg PO DAILY [facility] Last Admin: 02/09/17 11:03 Dose: 325 mg Atorvastatin Calcium (Lipitor -) 80 mg PO HS [facility] Last Admin: 02/08/17 21:11 Dose: 80 mg Azithromycin (Zithromax -) 250 mg PO DAILY [facility] Last Admin: 02/09/17 11:04 Dose: 250 mg Bacitracin (Bacitracin -) 1 applic TP DAILY [facility] Last Admin: 02/09/17 11:15 Dose: 1 applic Brimonidine Tartrate (Alphagan 0.2% -) 2 drop OU DAILY [facility] Last Admin: 02/09/17 11:11 Dose: Not Given Bupropion HCl (Wellbutrin Xl -) 300 mg PO DAILY [facility] Last Admin: 02/09/17 11:04 Dose: 300 mg Carvedilol (Coreg -) 25 mg PO BID [facility] Last Admin: 02/09/17 11:04 Dose: 25 mg Clopidogrel Bisulfate (Plavix -) 75 mg PO DAILY [facility] Last Admin: 02/09/17 11:04 Dose: 75 mg Insulin Detemir (Levemir Vial) 7 units SQ HS [facility] Last Admin: 02/09/17 13:35 Dose: 7 units Levetiracetam (Keppra -) 250 mg PO BID [facility] Last Admin: 02/09/17 11:04 Dose: 250 mg Pantoprazole Sodium (Protonix -) 40 mg PO DAILY [facility] Last Admin: 02/09/17 11:04 Dose: 40 mg Polyethylene Glycol (Miralax (For Daily Use) -) 17 gm PO BID [facility] Last Admin: 02/09/17 11:11 Dose: Not Given Timolol Maleate (Timoptic 0.5%) 2 drop OU DAILY [facility] Last Admin: 02/09/17 11:11 Dose: Not Given Topiramate (Topamax -) 50 mg PO BID [facility] Last Admin: 02/09/17 11:05 Dose: 50 mg - Objective Vital Signs: Vital Signs Temperature 98.1 F 02/09/17 07:45 Pulse Rate 79 02/09/17 07:45 Respiratory Rate 18 02/09/17 07:45 Blood Pressure 133/76 02/09/17 07:45 O2 Sat by Pulse Oximetry (%) 96 02/08/17 21:00 Constitutional: Yes: Calm Cardiovascular: Yes: S1, S2 Respiratory: Yes: CTA Bilaterally Gastrointestinal: Yes: Normal Bowel Sounds, Soft, Abdomen, Obese Genitourinary: Yes: WNL Musculoskeletal: Yes: Muscle Weakness Edema: Yes Edema: LLE: Trace, RLE: Trace Neurological: Yes: Oriented Psychiatric: Yes: Oriented Labs: CBC, BMP 02/07/17 09:33 02/08/17 13:50 INR, PTT INR 1.08 (0.82-1.09) 02/06/17 12:35 Problem List - Problems (1) Anemia Code(s): D64.9 - ANEMIA, UNSPECIFIED Qualifiers: Chronic kidney disease stage: on chronic dialysis (2) Cellulitis and abscess of foot Code(s): L03.119 - CELLULITIS OF UNSPECIFIED PART OF LIMB; L02.619 - CUTANEOUS ABSCESS OF UNSPECIFIED FOOT (3) TIA (transient ischemic attack) Code(s): G45.9 - TRANSIENT CEREBRAL ISCHEMIC ATTACK, UNSPECIFIED Qualifiers: Transient cerebral ischemia type: unspecified Qualified Code(s): G45.9 - Transient cerebral ischemic attack, unspecified (4) Diabetes Code(s): E11.9 - TYPE 2 DIABETES MELLITUS WITHOUT COMPLICATIONS Qualifiers: Diabetes mellitus type: type 2 Diabetes mellitus complication status: with kidney complications Diabetes mellitus complication detail: with chronic kidney disease Diabetes mellitus snf insulin use: with snf use Chronic kidney disease stage: on chronic dialysis Qualified Code(s): E11.22 - Type 2 diabetes mellitus with diabetic chronic kidney disease; N18.6 - End stage renal disease; Z99.2 - Dependence on renal dialysis; Z99.2 - Dependence on renal dialysis; Z99.2 - Dependence on renal dialysis; N18.6 - End stage renal disease; N18.6 - End stage renal disease; N18.6 - End stage renal disease ; Z79.4 - intermediate accountant (current) use of insulin; Z79.4 - jail (current) use of insulin; Z79.4 - intermediate accountant (current) use of insulin; Z79.4 - jail ( current) use of insulin; Z99.2 - Dependence on renal dialysis (5) ESRD (end stage renal disease) on dialysis Code(s): N18.6 - END STAGE RENAL DISEASE; Z99.2 - DEPENDENCE ON RENAL DIALYSIS (6) Hypertension Code(s): I10 - ESSENTIAL (PRIMARY) HYPERTENSION Qualifiers: Hypertension type: essential hypertension Qualified Code(s): I10 - Essential (primary) hypertension Assessment/Plan Current Medications Generic Name Dose Route Start Last Admin Trade Name Freq PRN Reason Stop Dose Admin Alprazolam 0.5 mg 02/07/17 22:45 Xanax - PO 02/07/17 22:46 ONCE ONE Amlodipine Besylate 10 mg 02/07/17 10:00 02/09/17 11:04 Norvasc - PO 10 mg DAILY [facility] Administration Aspirin 325 mg 02/07/17 10:00 02/09/17 11:03 Ecotrin - PO 325 mg DAILY [facility] Administration Atorvastatin Calcium 80 mg 02/06/17 22:00 02/08/17 21:11 Lipitor - PO 80 mg HS [facility] Administration Azithromycin 250 mg 02/08/17 19:15 02/09/17 11:04 Zithromax - PO 250 mg DAILY [facility] Administration Bacitracin 1 applic 02/06/17 20:00 02/09/17 11:15 Bacitracin - TP 1 applic DAILY [facility] Administration Brimonidine Tartrate 2 drop 02/07/17 10:00 02/09/17 11:11 Alphagan 0.2% - OU Not Given DAILY [facility] Bupropion HCl 300 mg 02/07/17 10:00 02/09/17 11:04 Wellbutrin Xl - PO 300 mg DAILY [facility] Administration Carvedilol 25 mg 02/06/17 22:00 02/09/17 11:04 Coreg - PO 25 mg BID [facility] Administration Clopidogrel Bisulfate 75 mg 02/07/17 10:00 02/09/17 11:04 Plavix - PO 75 mg DAILY [facility] Administration Insulin Detemir 7 units 02/06/17 22:00 02/09/17 13:35 Levemir Vial SQ 7 units HS [facility] Administration Levetiracetam 250 mg 02/08/17 19:15 02/09/17 11:04 Keppra - PO 250 mg BID [facility] Administration Pantoprazole Sodium 40 mg 02/07/17 10:00 02/09/17 11:04 Protonix - PO 40 mg DAILY [facility] Administration Polyethylene Glycol 17 gm 02/08/17 21:30 02/09/17 11:11 Miralax (For Daily Use) - PO Not Given BID [facility] Timolol Maleate 2 drop 02/07/17 10:00 02/09/17 11:11 Timoptic 0.5% OU Not Given DAILY [facility] Topiramate 50 mg 02/06/17 22:00 02/09/17 11:05 Topamax - PO 50 mg BID [facility] Administration Impression 1. ESRD 2. r/o CVA 3. DM 4. HLD 5. HTN 6. anemia 7. anxiety 8. infected right foot ulcer Plan - will arrange for HD in am - neuro follow up - will check pre hd labs - mental status is improved - pt has hd scheduled as outpt if discharged - HD: [facility] 2 k bath, 4 hrs, 116.5 kg, 1000 epogen, hectorol 4 mcg, venofer , 15 gauge long needle
[2017-02-09] MEDS: ACETAMINOPHEN 325 MG TABLET (FP) PO PRN (14:30)
--- NOTE | 2017-02-09 17:31 | PN ---
Progress Note, SCADA TECHNICIAN - Note Progress Note: Pt seen sitting on the side of the bed. She would like to go home. She is pending MRI of her head. Expressive Aphasia, improving. Functional language improving. Apraxic articulatory errors and grammatical omissions noted wih fair intelligibility. Comprehension good on simple 1 and 2 stage level. She is a good historian and aware of recent events. Selected Entries 02/08/17 02/08/17 02/08/17 02:00 06:00 10:17 Breakfast Lunch Temperature 98.2 F 98.0 F 98 F 02/08/17 02/08/17 02/08/17 11:52 14:05 18:00 Breakfast 50% Lunch 50% Temperature 98.5 F 98.7 F 02/09/17 02/09/17 02/09/17 01:48 07:45 12:20 Breakfast 75% Lunch 75% Temperature 98 F 98.1 F 02/09/17 17:16 Breakfast Lunch Temperature 98.4 F Pt would benefit from continued speech therapy upon discharge.
--- NOTE | 2017-02-09 18:55 | PN ---
Progress Note, Physician History of Present Illness: wants to go home - Current Medication List Current Medications: Active Medications Acetaminophen (Tylenol -) 650 mg PO Q6H PRN PRN Reason: FEVER OR PAIN Last Admin: 02/09/17 14:30 Dose: 650 mg Alprazolam (Xanax -) 0.5 mg PO ONCE ONE Stop: 02/07/17 22:46 Amlodipine Besylate (Norvasc -) 10 mg PO DAILY [facility] Last Admin: 02/09/17 11:04 Dose: 10 mg Aspirin (Ecotrin -) 325 mg PO DAILY [facility] Last Admin: 02/09/17 11:03 Dose: 325 mg Atorvastatin Calcium (Lipitor -) 80 mg PO HS [facility] Last Admin: 02/08/17 21:11 Dose: 80 mg Azithromycin (Zithromax -) 250 mg PO DAILY [facility] Last Admin: 02/09/17 11:04 Dose: 250 mg Bacitracin (Bacitracin -) 1 applic TP DAILY [facility] Last Admin: 02/09/17 11:15 Dose: 1 applic Brimonidine Tartrate (Alphagan 0.2% -) 2 drop OU DAILY [facility] Last Admin: 02/09/17 11:11 Dose: Not Given Bupropion HCl (Wellbutrin Xl -) 300 mg PO DAILY [facility] Last Admin: 02/09/17 11:04 Dose: 300 mg Carvedilol (Coreg -) 25 mg PO BID [facility] Last Admin: 02/09/17 11:04 Dose: 25 mg Clopidogrel Bisulfate (Plavix -) 75 mg PO DAILY [facility] Last Admin: 02/09/17 11:04 Dose: 75 mg Insulin Detemir (Levemir Vial) 7 units SQ HS [facility] Last Admin: 02/09/17 13:35 Dose: 7 units Levetiracetam (Keppra -) 250 mg PO BID [facility] Last Admin: 02/09/17 11:04 Dose: 250 mg Pantoprazole Sodium (Protonix -) 40 mg PO DAILY [facility] Last Admin: 02/09/17 11:04 Dose: 40 mg Paricalcitol (Zemplar -) 2 mcg IVPUSH ONCE ONE Stop: 02/10/17 14:02 Polyethylene Glycol (Miralax (For Daily Use) -) 17 gm PO BID [facility] Last Admin: 02/09/17 11:11 Dose: Not Given Timolol Maleate (Timoptic 0.5%) 2 drop OU DAILY [facility] Last Admin: 02/09/17 11:11 Dose: Not Given Topiramate (Topamax -) 50 mg PO BID [facility] Last Admin: 02/09/17 11:05 Dose: 50 mg - Objective Vital Signs: Vital Signs Temperature 98.4 F 02/09/17 17:16 Pulse Rate 78 02/09/17 17:16 Respiratory Rate 20 02/09/17 17:16 Blood Pressure 137/84 02/09/17 17:16 O2 Sat by Pulse Oximetry (%) 96 02/09/17 09:00 Constitutional: Yes: No Distress HENT: Yes: Atraumatic Neck: Yes: Supple Cardiovascular: Yes: Regular Rate and Rhythm Respiratory: Yes: CTA Bilaterally Gastrointestinal: Yes: Normal Bowel Sounds Extremities: Yes: WNL Neurological: Yes: Alert ...Motor Strength: RUE, RLE (3/5) Labs: CBC, BMP 02/07/17 09:33 02/08/17 13:50 INR, PTT INR 1.08 (0.82-1.09) 02/06/17 12:35 Problem List - Problems (1) CVA (cerebral vascular accident) Assessment/Plan: ct scan done no acute infarct awaiting mri Code(s): I63.9 - CEREBRAL INFARCTION, UNSPECIFIED (2) Asthma Assessment/Plan: stable prn duo nebs Code(s): J45.909 - UNSPECIFIED ASTHMA, UNCOMPLICATED Qualifiers: Asthma severity: unspecified severity Asthma complication type: uncomplicated (3) Diabetes Code(s): E11.9 - TYPE 2 DIABETES MELLITUS WITHOUT COMPLICATIONS Qualifiers: Diabetes mellitus type: type 2 Diabetes mellitus complication status: with kidney complications Diabetes mellitus complication detail: with chronic kidney disease Diabetes mellitus terminologist insulin use: with terminologist use Chronic kidney disease stage: on chronic dialysis Qualified Code(s): E11.22 - Type 2 diabetes mellitus with diabetic chronic kidney disease; N18.6 - End stage renal disease; N18.6 - End stage renal disease; N18.6 - End stage renal disease; N18.6 - End stage renal disease; Z79.4 - alf (current) use of insulin; Z79.4 - terminal makeup operator (current) use of insulin; Z79.4 - terminal makeup operator (current ) use of insulin; Z79.4 - alf (current) use of insulin; Z99.2 - Dependence on renal dialysis; Z99.2 - Dependence on renal dialysis; Z99.2 - Dependence on renal dialysis; Z99.2 - Dependence on renal dialysis (4) ESRD (end stage renal disease) Code(s): N18.6 - END STAGE RENAL DISEASE Assessment/Plan d/w with patient and mother they r ok to go to snf but close to her house correctional case manager to discuss that with patient and mother
--- NOTE | 2017-02-09 20:03 | CONSULT ---
Consult - text type - Consultation Consultation Note: NEUROLOGY CONSULTATION is greatly appreciated: This 51 yo RH woman with HTN an DM complicated by ESRD on HD and advanced diabetic retinopathy is well-known to me with Migraine DEJESUS's controlled on Topiramate (50 BID) and diabetic neuropathy. Known Right carotid occlusion. 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 Recyurrent episodes of right arm shaking and speech arrest followed by stuttering speech most c/w partial motor seizure... None since starting keppra 250 BID. Now admitted after fall trying to waste picker her TV remote. EXAM: Awake, alert. Sl hesitant speech Severe visually impaired. Mild right drift and decreased BILLY's on the right. Mod B/L ankle dorsiflexion weakness. Areflexic in the legs. Decreased vib to the mid-calf. Unsteady gaait. IMP: Mild Left cerebral dysfunction Right carotid occlusion Left cerebral partial seizures severe diabetic retinopathy Severe diabetic neuropathy Migraine headaches Depression. Suggest: OK to D/C in AM for HD Cancel repeat MRI Continue topiramate 50 BID and bupropion XR 300 mg Increase levetiracetam to 500 mg q12hrs. Neuro F/u as out patient. Thank you very much, Simone Faye MD
[2017-02-09] MEDS: levETIRAcetam 500 MG TABLET (FP) PO SCH ×2 (21:00→21:10)
[2017-02-09] MEDS: ATORVASTATIN CA 80 MG TABLET (FP) PO SCH (21:00)
[2017-02-10 07:30] LABS: BASOPHIL 0.6 % (0-2.0); EOSINOPHIL 3.8 % (0-4.5); MCHC 32.1 g/dl (32.0-36.0); MEAN CELL VOLUME 99.7 fl (80-96); MEAN PLT VOLUME 9.3 fl (7.5-11.1); NEUTROPHILS 63.6 % (42.8-82.8); PLATELET COUNT 149 K/MM3 (134-434); RDW 14.7 % (11.6-15.6); WHITE BLOOD COUNT 7.6 K/mm3 (4.0-10.0)
[2017-02-10 08:30] LABS: ALBUMIN 3.2 g/dl (3.4-5.0); ALK PHOS 50 U/L (45-117); ANION GAP 12 (8-16); BILIRUBIN,TOTAL 0.4 mg/dL (0.2-1.0); CALCIUM 9.3 mg/dL (8.5-10.1); CO2 29 mmol/L (21-32); GLUCOSE,RANDOM 122 mg/dL (74-106); SGOT/AST 26 U/L (15-37); SGPT/ALT 42 U/L (12-78); TOT PROT 6.6 g/dl (6.4-8.2)
[2017-02-10] MEDS: ACETAMINOPHEN 325 MG TABLET (FP) PO PRN (08:34)
[2017-02-10] MEDS: levETIRAcetam 500 MG TABLET (FP) PO SCH (08:36)
[2017-02-10] MEDS: TOPIRAMATE 25 MG TABLET (FP) PO SCH (08:37)
[2017-02-10] MEDS: CLOPIDOGREL BISULFATE 75 MG TABLET (FP) PO SCH (08:37)
[2017-02-10] MEDS: PANTOPRAZOLE 40 MG TABLET (FP) PO SCH (08:37)
[2017-02-10] MEDS: AZITHROMYCIN 250 MG TABLET PO SCH (08:37)
[2017-02-10] MEDS: amLODIPine BESYLATE 10 MG TABLET (FP) PO SCH (08:38)
[2017-02-10] MEDS: POLYETHYLENE GLYCOL 3350 119 GM BTL PO SCH (08:38)
[2017-02-10] MEDS: ASPIRIN 325 MG ENTERIC COATED TABLET (FP) PO SCH (08:38)
[2017-02-10] MEDS: CARVEDILOL 25 MG TABLET (FP) PO SCH (08:39)
[2017-02-10 08:49] LABS: CREATININE 9.3 mg/dL (0.55-1.02)
--- NOTE | 2017-02-10 11:04 | PN ---
Progress Note, DELIVERY TABLE FEEDER - Note Progress Note: Pt pending d/c either home with homecare or STR. Language function continues to improve. Pt reports "always feeling depressed." Pt is on Wellbutrin. She is oriented, a good historian and appropriate.Abstract thinking somehat impaired but concrete though intact. Selected Entries 02/09/17 02/09/17 02/09/17 01:48 07:45 12:20 Breakfast 75% Lunch 75% Supper Temperature 98 F 98.1 F 02/09/17 02/09/17 02/09/17 17:16 18:00 18:30 Breakfast Lunch Supper 100% Temperature 98.4 F 98.7 F 02/09/17 02/10/17 02/10/17 22:00 02:00 06:00 Breakfast Lunch Supper 100% Temperature 98.6 F 98.2 F 98.2 F Doing well with diet. Continue speech tx upon d/c.
[2017-02-10] MEDS ORDERED: PARICALCITOL 5 MCG/ML VIAL IVPUSH ONE (14:01)
--- NOTE | 2017-02-10 17:24 | PN ---
Progress Note, Physician History of Present Illness: Pt seen and examined at bedside. She is currently getting HD. SHe denies shortness of breath. - Current Medication List Current Medications: Active Medications Acetaminophen (Tylenol -) 650 mg PO Q6H PRN PRN Reason: FEVER OR PAIN Last Admin: 02/10/17 08:34 Dose: 650 mg Alprazolam (Xanax -) 0.5 mg PO ONCE ONE Stop: 02/07/17 22:46 Amlodipine Besylate (Norvasc -) 10 mg PO DAILY [facility] Last Admin: 02/10/17 08:38 Dose: 10 mg Aspirin (Ecotrin -) 325 mg PO DAILY [facility] Last Admin: 02/10/17 08:38 Dose: 325 mg Atorvastatin Calcium (Lipitor -) 80 mg PO HS [facility] Last Admin: 02/09/17 21:00 Dose: 80 mg Azithromycin (Zithromax -) 250 mg PO DAILY [facility] Last Admin: 02/10/17 08:37 Dose: 250 mg Bacitracin (Bacitracin -) 1 applic TP DAILY [facility] Last Admin: 02/09/17 11:15 Dose: 1 applic Brimonidine Tartrate (Alphagan 0.2% -) 2 drop OU DAILY [facility] Last Admin: 02/09/17 11:11 Dose: Not Given Bupropion HCl (Wellbutrin Xl -) 300 mg PO DAILY [facility] Last Admin: 02/10/17 08:37 Dose: 300 mg Carvedilol (Coreg -) 25 mg PO BID [facility] Last Admin: 02/10/17 08:39 Dose: 25 mg Clopidogrel Bisulfate (Plavix -) 75 mg PO DAILY [facility] Last Admin: 02/10/17 08:37 Dose: 75 mg Insulin Detemir (Levemir Vial) 7 units SQ HS [facility] Last Admin: 02/09/17 21:00 Dose: 7 units Levetiracetam (Keppra -) 500 mg PO BID [facility] Last Admin: 02/10/17 08:36 Dose: 500 mg Pantoprazole Sodium (Protonix -) 40 mg PO DAILY [facility] Last Admin: 02/10/17 08:37 Dose: 40 mg Polyethylene Glycol (Miralax (For Daily Use) -) 17 gm PO BID [facility] Last Admin: 02/10/17 08:38 Dose: Not Given Timolol Maleate (Timoptic 0.5%) 2 drop OU DAILY [facility] Last Admin: 02/09/17 11:11 Dose: Not Given Topiramate (Topamax -) 50 mg PO BID [facility] Last Admin: 02/10/17 08:37 Dose: 50 mg - Objective Vital Signs: Vital Signs Temperature 98.4 F 02/10/17 11:20 Pulse Rate 78 02/10/17 16:55 Respiratory Rate 18 02/10/17 16:55 Blood Pressure 129/83 02/10/17 16:55 O2 Sat by Pulse Oximetry (%) 96 02/10/17 08:51 Constitutional: Yes: Calm Eyes: Yes: Conjunctiva Clear HENT: Yes: Atraumatic Neck: Yes: Supple Cardiovascular: Yes: S1, S2 Respiratory: Yes: CTA Bilaterally Gastrointestinal: Yes: Soft, Abdomen, Obese Genitourinary: Yes: WNL Musculoskeletal: Yes: WNL Edema: Yes Edema: LLE: Trace, RLE: Trace Neurological: Yes: Oriented Psychiatric: Yes: Oriented Labs: CBC, BMP 02/10/17 06:00 02/10/17 06:20 INR, PTT INR 1.08 (0.82-1.09) 02/06/17 12:35 Problem List - Problems (1) Anemia Code(s): D64.9 - ANEMIA, UNSPECIFIED Qualifiers: Chronic kidney disease stage: on chronic dialysis (2) Cellulitis and abscess of foot Code(s): L03.119 - CELLULITIS OF UNSPECIFIED PART OF LIMB; L02.619 - CUTANEOUS ABSCESS OF UNSPECIFIED FOOT (3) TIA (transient ischemic attack) Code(s): G45.9 - TRANSIENT CEREBRAL ISCHEMIC ATTACK, UNSPECIFIED Qualifiers: Transient cerebral ischemia type: unspecified Qualified Code(s): G45.9 - Transient cerebral ischemic attack, unspecified (4) Diabetes Code(s): E11.9 - TYPE 2 DIABETES MELLITUS WITHOUT COMPLICATIONS Qualifiers: Diabetes mellitus type: type 2 Diabetes mellitus complication status: with kidney complications Diabetes mellitus complication detail: with chronic kidney disease Diabetes mellitus director long term care insulin use: with skilled nursing use Chronic kidney disease stage: on chronic dialysis Qualified Code(s): E11.22 - Type 2 diabetes mellitus with diabetic chronic kidney disease; N18.6 - End stage renal disease; Z99.2 - Dependence on renal dialysis; Z99.2 - Dependence on renal dialysis; Z99.2 - Dependence on renal dialysis; N18.6 - End stage renal disease; N18.6 - End stage renal disease; N18.6 - End stage renal disease ; Z79.4 - intermediate (current) use of insulin; 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; 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; Z79.4 - intermediate ( current) use of insulin; Z99.2 - Dependence on renal dialysis (5) ESRD (end stage renal disease) on dialysis Code(s): N18.6 - END STAGE RENAL DISEASE; Z99.2 - DEPENDENCE ON RENAL DIALYSIS (6) Hypertension Code(s): I10 - ESSENTIAL (PRIMARY) HYPERTENSION Qualifiers: Hypertension type: essential hypertension Qualified Code(s): I10 - Essential (primary) hypertension Assessment/Plan Current Medications Generic Name Dose Route Start Last Admin Trade Name Freq PRN Reason Stop Dose Admin Acetaminophen 650 mg 02/09/17 17:00 02/10/17 08:34 Tylenol - PO 650 mg Q6H PRN Administration FEVER OR PAIN Alprazolam 0.5 mg 02/07/17 22:45 Xanax - PO 02/07/17 22:46 ONCE ONE Amlodipine Besylate 10 mg 02/07/17 10:00 02/10/17 08:38 Norvasc - PO 10 mg DAILY [facility] Administration Aspirin 325 mg 02/07/17 10:00 02/10/17 08:38 Ecotrin - PO 325 mg DAILY [facility] Administration Atorvastatin Calcium 80 mg 02/06/17 22:00 02/09/17 21:00 Lipitor - PO 80 mg HS [facility] Administration Azithromycin 250 mg 02/08/17 19:15 02/10/17 08:37 Zithromax - PO 250 mg DAILY [facility] Administration Bacitracin 1 applic 02/06/17 20:00 02/09/17 11:15 Bacitracin - TP 1 applic DAILY [facility] Administration Brimonidine Tartrate 2 drop 02/07/17 10:00 02/09/17 11:11 Alphagan 0.2% - OU Not Given DAILY [facility] Bupropion HCl 300 mg 02/07/17 10:00 02/10/17 08:37 Wellbutrin Xl - PO 300 mg DAILY [facility] Administration Carvedilol 25 mg 02/06/17 22:00 02/10/17 08:39 Coreg - PO 25 mg BID [facility] Administration Clopidogrel Bisulfate 75 mg 02/07/17 10:00 02/10/17 08:37 Plavix - PO 75 mg DAILY [facility] Administration Insulin Detemir 7 units 02/06/17 22:00 02/09/17 21:00 Levemir Vial SQ 7 units HS [facility] Administration Levetiracetam 500 mg 02/09/17 20:15 02/10/17 08:36 Keppra - PO 500 mg BID [facility] Administration Pantoprazole Sodium 40 mg 02/07/17 10:00 02/10/17 08:37 Protonix - PO 40 mg DAILY [facility] Administration Polyethylene Glycol 17 gm 02/08/17 21:30 02/10/17 08:38 Miralax (For Daily Use) - PO Not Given BID [facility] Timolol Maleate 2 drop 02/07/17 10:00 02/09/17 11:11 Timoptic 0.5% OU Not Given DAILY [facility] Topiramate 50 mg 02/06/17 22:00 02/10/17 08:37 Topamax - PO 50 mg BID [facility] Administration Impression 1. ESRD 2. r/o CVA 3. DM 4. HLD 5. HTN 6. anemia 7. anxiety 8. infected right foot ulcer Plan - HD today, pt is refusing to do 4 hours and wants to do 3 hrs instead - pt has HD set up as outpt - neuro follow up - mental status is improved - HD: [facility]clear 2 k bath, 4 hrs, 116.5 kg, 1000 epogen, hectorol 4 mcg, venofer , 15 gauge long needle
--- NOTE | 2017-02-10 17:50 | DS ---
Physical Examination Vital Signs: Vital Signs Temperature 98.4 F 02/10/17 11:20 Pulse Rate 71 02/10/17 17:30 Respiratory Rate 18 02/10/17 17:30 Blood Pressure 130/77 02/10/17 17:30 O2 Sat by Pulse Oximetry (%) 96 02/10/17 08:51 Constitutional: Yes: No Distress HENT: Yes: Atraumatic Neck: Yes: Supple Cardiovascular: Yes: Regular Rate and Rhythm Respiratory: Yes: CTA Bilaterally Gastrointestinal: Yes: Normal Bowel Sounds Extremities: Yes: WNL Neurological: Yes: Alert, Oriented Labs: CBC, BMP 02/10/17 06:00 02/10/17 06:20 Discharge Summary Reason For Visit: CEREBRAL VASCULAR ACCIDENT Current Active Problems CVA (cerebral vascular accident) (Acute) Condition: Stable - Instructions [facility] - Home Medications Comprehensive Discharge Medication List: Ambulatory Orders Albuterol Sulfate Inhaler - [Ventolin HFA Inhaler -] 2 inh PO BID PRN 08/03/16 Atorvastatin Ca [Lipitor] 80 mg PO HS 08/03/16 Brimonidine Tartrate/Timolol [Combigan 0.2%-0.5% Eye Drops] 2 drop OU DAILY 01/10 Clonazepam [Klonopin -] 0.5 mg PO BID 08/03/16 Furosemide [Lasix] 40 mg PO BID 08/03/16 Lidocaine/Prilocaine Cream [Lidocaine-Prilocaine Cream -] 1 applic TP PRN PRN Mometasone/Formoterol [Dulera 100 Mcg/5 Mcg Inhaler] 2 inh IH BID PRN 08/03/16 Sennosides [Senna] 2 tab PO DAILY 08/03/16 Clopidogrel Bisulfate [Plavix -] 75 mg PO DAILY 08/26/16 Aspirin Coated [Ecotrin -] 325 mg PO DAILY 11/07/16 Bupropion HCl [Wellbutrin Xl -] 300 mg PO DAILY #30 tab.sr.24h 12/22/16 Topiramate [Topamax] 50 mg PO BID 01/02/17 Amlodipine Besylate [Norvasc -] 10 mg PO DAILY #30 tablet 01/09/17 Bacitracin - [Bacitracin Topical Ointment -] 1 applic TP DAILY #1 tube 01/09/17 Insulin Sliding Scale [Novolog Vial Sliding Scale -] See Protocol SQ ACHS #30 pen 01/09/17 Pantoprazole Sodium [Protonix -] 40 mg PO DAILY #30 tab 01/09/17 Carvedilol [Coreg] 25 mg PO BID #60 tablet 01/11/17 Insulin Glargine,Hum.rec.anlog [Lantus (10mL VIAL) -] 7 units SQ HS #1 vial Levetiracetam [Keppra -] 250 mg PO BID 02/08/17 Azithromycin [Zithromax 250mg Tablets -] 250 mg PO DAILY #3 tablet 02/09/17 Levetiracetam [Keppra -] 500 mg PO BID tablet 02/09/17 dc to snf
[2017-02-10 18:33] VITALS: BP 135/61; PULSE 81; TEMP 99
== END 2017-02-10 19:30 | DRG 70 ==
LOC: JER 10:47 → JERBED 18:46 → J4S 02-07 00:53
PROVIDERS: ADMIT Internal Medicine; ATTEND Internal Medicine
PROC: 5A1D70Z Performance of Urinary Filtration, Intermittent, Less than 6 Hours Per Day (ICD-10-PCS; principal; 2017-02-06)
DX: G93.89 Other specified disorders of brain (principal); G93.41 Metabolic encephalopathy; N18.6 End stage renal disease; I13.11 Hypertensive heart and chronic kidney disease without heart failure, with stage 5 chronic kidney disease, or end stage renal disease; R47.01 Aphasia; Z68.41 Body mass index [BMI] 40.0-44.9, adult; I69.351 Hemiplegia and hemiparesis following cerebral infarction affecting right dominant side; G40.89 Other seizures; E11.22 Type 2 diabetes mellitus with diabetic chronic kidney disease; E11.621 Type 2 diabetes mellitus with foot ulcer; E11.40 Type 2 diabetes mellitus with diabetic neuropathy, unspecified; E11.319 Type 2 diabetes mellitus with unspecified diabetic retinopathy without macular edema; I65.21 Occlusion and stenosis of right carotid artery; L98.499 Non-pressure chronic ulcer of skin of other sites with unspecified severity; Z79.4 Long term (current) use of insulin; J45.909 Unspecified asthma, uncomplicated; E78.5 Hyperlipidemia, unspecified; G47.30 Sleep apnea, unspecified; E66.9 Obesity, unspecified; F41.9 Anxiety disorder, unspecified; G43.909 Migraine, unspecified, not intractable, without status migrainosus; F32.9 Major depressive disorder, single episode, unspecified
CPT/HCPCS: 36415; 70450-TC; 71010-TC; 74176-TC; 80048; 80053; 82272; 82465; 82550; 82553; 83718; 83721; 84478; 84484; 85025; 85610; 86704; 86706; 86708; 86803; 86850; 86900; 86901; 87340; 93005; 93010; 97116-GP; 97161-GP; 99285-25

== ENCOUNTER 2017-06-22 12:21 | Day surgery (SDC) | payer OTHER ==
[2017-06-21 17:44] VITALS: BMI 30.4
[2017-06-22] MEDS ORDERED: HEPARIN NA (PORCINE) 5,000 UNITS/ML 1ML VIAL ONE (13:12)
[2017-06-22] MEDS ORDERED: LIDOCAINE HCL 1%, 10 MG/ML (20ML VIAL) ONE (13:12)
--- NOTE | 2017-06-22 14:37 | HP ---
Admitting History and Physical - Admission Chief Complaint: Pt with right AVG stenosis. 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 Cardiovascular: Yes: HTN, Hyperlipdemia, Other (Peripheral vascular disease) Pulmonary: Yes: Asthma, Sleep Apnea Gastrointestinal: Yes: Constipation Renal/: Yes: Renal Failure, Hemodialysis ...LMP: 06/13/17 Heme/Onc: Yes: Anemia Rheumatology: Yes: Other (See HPI) Endocrine: Yes: Diabetes Mellitus - Past Surgical History Past Surgical History: Yes: Amputation, AV Fistula/Graft, - Smoking History Smoking history: Never smoked Have you smoked in the past 12 months: No Aproximately how many cigarettes per day: 0 - Alcohol/Substance Use Hx Alcohol Use: No - Social History ADL: Independent History of Recent Travel: No Home Medications - Allergies Allergies/Adverse Reactions: Allergies Allergy/AdvReac Type Severity Reaction Status Date / Time amoxicillin [Amoxicillin] Allergy Severe Itching Verified 02/07/17 01:09 hydrocodone bitartrate Allergy Severe Hives,ITCHI Verified 02/07/17 01:09 [From Vicodin] NG morphine Allergy Severe Itching Verified 02/07/17 01:09 neomycin [Neomycin] Allergy Severe Swelling Verified 02/07/17 01:09 oxycodone HCl [From Percocet] Allergy Severe Itching,HIV Verified 02/07/17 01:09 ES rofecoxib [From Vioxx] Allergy Severe Hives Verified 02/07/17 01:09 Sulfa (Sulfonamide Allergy Severe sclera Verified 02/07/17 01:09 Antibiotics) reddened,ITCHING tramadol Allergy Severe Vomiting Verified 02/07/17 01:09 tomato Allergy Verified 02/07/17 01:09 grapefruit [Grapefruit] AdvReac Severe CAN'T TAKE Verified 02/07/17 01:09 BECAUSE OF MEDICATIONS vancomycin AdvReac Mild red man Verified 02/07/17 01:09 syndrome Heparin Analogues AdvReac Unknown Verified 02/07/17 01:09 [Heparin Agents] flu shot Allergy Severe GETS FLU Uncoded 02/07/17 01:09 SYMPTOMS grape juice AdvReac Severe Uncoded 02/07/17 01:09 - Home Medications Home Medications: Ambulatory Orders Albuterol Sulfate Inhaler - [Ventolin HFA Inhaler -] 2 inh PO BID PRN 08/03/16 Atorvastatin Ca [Lipitor] 80 mg PO HS 08/03/16 Brimonidine Tartrate/Timolol [Combigan 0.2%-0.5% Eye Drops] 2 drop OU DAILY 01/10 Furosemide [Lasix] 40 mg PO BID 08/03/16 Lidocaine/Prilocaine Cream [Lidocaine-Prilocaine Cream -] 1 applic TP PRN PRN Mometasone/Formoterol [Dulera 100 Mcg/5 Mcg Inhaler] 2 inh IH BID PRN 08/03/16 Sennosides [Senna] 2 tab PO DAILY 08/03/16 clonazePAM [Klonopin -] 0.5 mg PO BID 08/03/16 Clopidogrel Bisulfate [Plavix -] 75 mg PO DAILY 08/26/16 Aspirin Coated [Ecotrin -] 325 mg PO DAILY 11/07/16 Bupropion HCl [Wellbutrin Xl -] 300 mg PO DAILY #30 tab.sr.24h 12/22/16 Topiramate [Topamax] 50 mg PO BID 01/02/17 Amlodipine Besylate [Norvasc -] 10 mg PO DAILY #30 tablet 01/09/17 Bacitracin - [Bacitracin Topical Ointment -] 1 applic TP DAILY #1 tube 01/09/17 Insulin Sliding Scale [Novolog Vial Sliding Scale -] See Protocol SQ ACHS #30 pen 01/09/17 Pantoprazole Sodium [Protonix -] 40 mg PO DAILY #30 tab 01/09/17 Carvedilol [Coreg] 25 mg PO BID #60 tablet 01/11/17 Insulin Glargine,Hum.rec.anlog [Lantus (10mL VIAL) -] 7 units SQ HS #1 vial levETIRAcetam [Keppra -] 250 mg PO BID 02/08/17 Azithromycin [Zithromax 250mg Tablets -] 250 mg PO DAILY #3 tablet 02/09/17 levETIRAcetam [Keppra -] 500 mg PO BID tablet 02/09/17 Review of Systems - Review of Systems Constitutional: reports: No Symptoms Eyes: reports: No Symptoms HENT: reports: No Symptoms Neck: reports: No Symptoms Cardiovascular: reports: No Symptoms Respiratory: reports: No Symptoms Gastrointestinal: reports: No Symptoms Genitourinary: reports: No Symptoms Musculoskeletal: reports: No Symptoms Integumentary: reports: No Symptoms Neurological: reports: No Symptoms Endocrine: reports: No Symptoms Hematology/Lymphatic: reports: No Symptoms Psychiatric: reports: No Symptoms Physical Examination Vital Signs: Vital Signs Temperature 98 F 06/22/17 13:55 Pulse Rate 73 06/22/17 13:55 Respiratory Rate 18 06/22/17 13:55 Blood Pressure 163/84 06/22/17 13:55 O2 Sat by Pulse Oximetry (%) 100 06/22/17 14:01 Constitutional: Yes: Well Nourished, No Distress, Calm Eyes: Yes: WNL, Conjunctiva Clear, EOM Intact HENT: Yes: WNL, Atraumatic, Normocephalic Neck: Yes: WNL, Supple, Trachea Midline Cardiovascular: Yes: WNL, Regular Rate and Rhythm Respiratory: Yes: WNL, Regular, CTA Bilaterally Gastrointestinal: Yes: WNL, Normal Bowel Sounds Musculoskeletal: Yes: WNL Extremities: Yes: WNL Edema: No Integumentary: Yes: WNL Neurological: Yes: WNL, Alert, Oriented ...Motor Strength: WNL Psychiatric: Yes: WNL Labs: CBC, BMP 06/22/17 13:19 Problem List - Problems (1) ESRD (end stage renal disease) Code(s): N18.6 - END STAGE RENAL DISEASE Assessment/Plan right avg stenosis 1. For venogram , venoplasty today
[2017-06-22] MEDS ORDERED: MIDAZOLAM HCL 2 MG/2 ML SINGLE DOSE VIAL ONE (14:38)
[2017-06-22] MEDS ORDERED: PROPOFOL 20 ML ONE (14:55)
[2017-06-22] MEDS ORDERED: LIDOCAINE HCL 1%, 10 MG/ML (50 mL VIAL) IJ ONE (15:02)
--- NOTE | 2017-06-22 15:28 | OP ---
Operative Note - Note: Operative Date: 06/22/17 Pre-Operative Diagnosis: stenosis right avg Operation: Venogram, venoplasty right avg Post-Operative Diagnosis: Same as Pre-op Surgeon: Nathan Ch Anesthesia: Fractional Estimated Blood Loss (mls): 20 Operative Report Dictated: Yes
[2017-06-22 16:04] VITALS: TEMP 98
[2017-06-22 16:55] VITALS: BP 145/82; PULSE 76
--- NOTE | 2017-06-23 01:36 | OP ---
DATE OF OPERATION: 06/22/2017 PREOPERATIVE DIAGNOSIS: Stenosis of right arteriovenous graft. POSTOPERATIVE DIAGNOSIS: Stenosis of right arteriovenous graft. PROCEDURE: Venogram, venoplasty of arteriovenous graft. SURGEON: Nathan De Los Santos DO ANESTHESIA: Fractional. BLOOD LOSS: 10 mL. DESCRIPTION OF PROCEDURE: The patient is a 47-year-old female that has a stenosis found in the outflow axillary vein on recent ultrasound. She has the right AV graft with a stent across the venous anastomosis. Patient came into Ambulatory Surgery. Patient was consented for the procedure, understanding all risks, benefits, and alternatives. The patient was then brought into the operating room. Once in the operating room, she was placed on the operating room table in the supine manner. The area of the right arm was prepped and draped in the sterile surgical manner. We then injected 2 mL of lidocaine 1% over the proximal AV graft. We then punctured the graft with a micropuncture needle and a micropuncture wire was placed in. A traditional short 6-Georgian sheath was placed. We then shot a venogram of the AV graft showing that the graft was patent, the stent was patent, but the axillary vein has stenosis of about 90% for about 5 cm. At this point, we placed a 0.035 floppy guidewire and placed the wire up into the central veins. The patient is ALLERGIC TO HEPARIN and heparin was not given to the patient. We then went ahead and placed a 9 x 8 balloon into the axillary vein and we were able to perform a venoplasty of the axillary vein. We were also able to take this balloon and perform venoplasty of the stent and the distal AV graft. Completion venogram now showed that the graft was patent, the area of the axillary vein was patent. There was no recoil. There was good brisk flow up into the central veins and there was a great thrill in the AV graft, which was not present prior to starting the procedure. At this point, we used a 4-0 Biosyn stitch and a [id number] stitch was placed around our short 6-Georgian sheath and the sheath was pulled. The area was wet and dried and Dermabond was placed. Patient tolerated the procedure with no complications. Patient transferred to PACU in stable condition. NATHAN DE LOS SANTOS DO NP/[id number]
== END 2017-06-22 16:56 | disposition home or self-care (01) ==
LOC: JASU-SURG 12:21
PROVIDERS: ATTEND Surgery Vascular Surgery
PROC: 05773ZZ Dilation of Right Axillary Vein, Percutaneous Approach (ICD-10-PCS; principal; 2017-06-22 13:30)
DX: T82.858A Stenosis of other vascular prosthetic devices, implants and grafts, initial encounter (principal); I12.0 Hypertensive chronic kidney disease with stage 5 chronic kidney disease or end stage renal disease; E11.22 Type 2 diabetes mellitus with diabetic chronic kidney disease; N18.6 End stage renal disease; Z99.2 Dependence on renal dialysis; Z79.4 Long term (current) use of insulin
CPT/HCPCS: 36415; 76000-TC-FY; 82962; 84132; 84703; 94760; J1644

== ENCOUNTER 2017-07-08 07:36 | Emergency (ER) | payer OTHER ==
[2017-07-08 07:46] VITALS: BP 152/88; PULSE 75; TEMP 98.4; BMI 37.7
--- NOTE | 2017-07-08 08:31 | PDOC ---
History of Present Illness - General Chief Complaint: Injury Stated Complaint: INJURY Time Seen by Provider: 07/08/17 08:21 History Source: Patient Exam Limitations: No Limitations - History of Present Illness Occurred: reports: other (6 days ago) Lower Extremity Pain Location: right: 1st toe Method of Injury: Yes: other (hit on elevator door) Modifying Factors: improves with: immobilization Lower Ext. Injury Location - Specific Injury Location Legs: bilateral: normal inspection Knees: bilateral no evidence of injury Ankle: bilateral no evidence of injury Extremity Pain Location - Extremity Pain Location Extremity Pain Locations: right: 1st toe Past History - Travel Traveled outside of the country in the last 30 days: No Close contact w/someone who was outside of country & ill: No - Past Medical History Allergies/Adverse Reactions: Allergies Allergy/AdvReac Type Severity Reaction Status Date / Time amoxicillin [Amoxicillin] Allergy Severe Itching Verified 07/08/17 07:47 hydrocodone bitartrate Allergy Severe Hives,ITCHI Verified 07/08/17 07:47 [From Vicodin] NG morphine Allergy Severe Itching Verified 07/08/17 07:47 neomycin [Neomycin] Allergy Severe Swelling Verified 07/08/17 07:47 oxycodone HCl [From Percocet] Allergy Severe Itching,HIV Verified 07/08/17 07:47 ES rofecoxib [From Vioxx] Allergy Severe Hives Verified 07/08/17 07:47 Sulfa (Sulfonamide Allergy Severe sclera Verified 07/08/17 07:47 Antibiotics) reddened,ITCHING tramadol Allergy Severe Vomiting Verified 07/08/17 07:47 tomato Allergy Verified 07/08/17 07:47 grapefruit [Grapefruit] AdvReac Severe CAN'T TAKE Verified 07/08/17 07:47 BECAUSE OF MEDICATIONS vancomycin AdvReac Mild red man Verified 02/07/17 01:09 syndrome Heparin Analogues AdvReac Unknown Verified 02/07/17 01:09 [Heparin Agents] flu shot Allergy Severe GETS FLU Uncoded 02/07/17 01:09 SYMPTOMS grape juice AdvReac Severe Uncoded 02/07/17 01:09 Home Medications: Ambulatory Orders Albuterol Sulfate Inhaler - [Ventolin HFA Inhaler -] 2 inh PO BID PRN 08/03/16 Atorvastatin Ca [Lipitor] 80 mg PO HS 08/03/16 Brimonidine Tartrate/Timolol [Combigan 0.2%-0.5% Eye Drops] 2 drop OU DAILY 01/10 Furosemide [Lasix] 40 mg PO BID 08/03/16 Lidocaine/Prilocaine Cream [Lidocaine-Prilocaine Cream -] 1 applic TP PRN PRN Mometasone/Formoterol [Dulera 100 Mcg/5 Mcg Inhaler] 2 inh IH BID PRN 08/03/16 Sennosides [Senna] 2 tab PO DAILY 08/03/16 clonazePAM [Klonopin -] 0.5 mg PO BID 08/03/16 Clopidogrel Bisulfate [Plavix -] 75 mg PO DAILY 08/26/16 Aspirin Coated [Ecotrin -] 325 mg PO DAILY 11/07/16 Bupropion HCl [Wellbutrin Xl -] 300 mg PO DAILY #30 tab.sr.24h 12/22/16 Topiramate [Topamax] 50 mg PO BID 01/02/17 Amlodipine Besylate [Norvasc -] 10 mg PO DAILY #30 tablet 01/09/17 Bacitracin - [Bacitracin Topical Ointment -] 1 applic TP DAILY #1 tube 01/09/17 Insulin Sliding Scale [Novolog Vial Sliding Scale -] See Protocol SQ ACHS #30 pen 01/09/17 Pantoprazole Sodium [Protonix -] 40 mg PO DAILY #30 tab 01/09/17 Carvedilol [Coreg] 25 mg PO BID #60 tablet 01/11/17 Insulin Glargine,Hum.rec.anlog [Lantus (10mL VIAL) -] 7 units SQ HS #1 vial levETIRAcetam [Keppra -] 250 mg PO BID 02/08/17 Azithromycin [Zithromax 250mg Tablets -] 250 mg PO DAILY #3 tablet 02/09/17 levETIRAcetam [Keppra -] 500 mg PO BID tablet 02/09/17 Anemia: No Asthma: Yes Cancer: No Cardiac Disorders: No CVA: Yes (TIA 2016) COPD: No CHF: No Dementia: No Diabetes: Yes Dialysis: Yes (m,w,f) GI Disorders: No Disorders: No HTN: Yes Hypercholesterolemia: Yes Liver Disease: No Psychiatric Problems: Yes (ANXIETY.) Seizures: No Thyroid Disease: No - Surgical History Abdominal Surgery: No Appendectomy: No Cardiac Surgery: Yes (AV graft right) Cholecystectomy: No Lung Surgery: No Neurologic Surgery: No Orthopedic Surgery: No - Immunization History Td Vaccination: No TDAP Vaccination: No Immunization Up to Date: Yes - Suicide/Smoking/Psychosocial Hx Smoking Status: No Smoking History: Never smoked Have you smoked in the past 12 months: No Number of Cigarettes Smoked Daily: 0 Hx Alcohol Use: No Drug/Substance Use Hx: No Substance Use Type: None Hx Substance Use Treatment: Yes Review of Systems - Review of Systems Able to Perform ROS?: Yes Is the patient limited Korean proficient: No Constitutional: No: Chills, Fever, Loss of Appetite, Malaise HEENTM: No: Eye Pain, Nose Pain Respiratory: No: Cough, Orthopnea, Shortness of Breath Cardiac (ROS): No: Chest Pain, Lightheadedness ABD/GI: No: Abdominal Distended, Nausea, Poor Appetite, Vomiting : No: See HPI, Burning, Hematuria, Testicular Swelling Integumentary: No: Bruising Neurological: No: Numbness Psychiatric: No: Change in Appetite Endocrine: No: Excessive Sweating Hematologic/Lymphatic: No: See HPI *Physical Exam - Vital Signs Last Vital Signs Temp Pulse Resp BP Pulse Ox 98.4 F 75 18 152/88 100 07/08/17 07:43 07/08/17 07:43 07/08/17 07:43 07/08/17 07:43 07/08/17 07:43 - Physical Exam General Appearance: Yes: Nourished, Appropriately Dressed HEENT: positive: EOMI, MISA. negative: Pharynx Normal Neck: negative: Supple, Lymphadenopathy (R) Respiratory/Chest: positive: Lungs Clear. 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, right 1st toe with swelling, no bruising noted, tender with palpation, no crepitus with rom of toe) Integumentary: negative: Erythema Neurologic: positive: cardio tech II-XII NML intact, Fully Oriented Medical Decision Making - Medical Decision Making 07/08/17 08:30 51 year old female with injury to right great toe 6 days ago xray of right foot and right great toe *DC/Admit/Observation/Transfer Diagnosis at time of Disposition: Toe injury Qualifiers: Encounter type: initial encounter Laterality: right Qualified Code(s): S99.921A - Unspecified injury of right foot, initial encounter - Discharge Dispostion Disposition: HOME Condition at time of disposition: Good Admit: No - Referrals Referrals: Sebastián Parr MD [Primary Care Provider] - Bharat Wadsworth MD [Staff Physician] - 1 week - Patient Instructions Printed Discharge Instructions: How to Prevent Falls Additional Instructions: Activity as tolerated Please call doctor for follow up appointment May take tylenol or advil for pain - Post Discharge Activity Forms/Work/School Notes: Back to Work
== END 2017-07-08 10:04 | disposition home or self-care (01) ==
LOC: JERFT 07:36 → JER 07:36 → JERFT 10:04
DX: S99.921A Unspecified injury of right foot, initial encounter (principal); W22.8XXA Striking against or struck by other objects, initial encounter; Y93.89 Activity, other specified; Y92.89 Other specified places as the place of occurrence of the external cause; Y99.8 Other external cause status; I12.0 Hypertensive chronic kidney disease with stage 5 chronic kidney disease or end stage renal disease; E11.22 Type 2 diabetes mellitus with diabetic chronic kidney disease; N18.6 End stage renal disease; N17.8 Other acute kidney failure; Z99.2 Dependence on renal dialysis; Z79.4 Long term (current) use of insulin; E78.00 Pure hypercholesterolemia, unspecified; F41.9 Anxiety disorder, unspecified; Z79.82 Long term (current) use of aspirin; Z89.421 Acquired absence of other right toe(s)
CPT/HCPCS: 73630-TC-RT-FY; 73660-TC-FY; 99281-25

== ENCOUNTER 2017-07-31 15:19 | Emergency (ER) | payer OTHER ==
[2017-07-31 15:36] VITALS: BP 141/79; PULSE 77; TEMP 98.9; BMI 38.0
--- NOTE | 2017-07-31 15:36 | PDOC ---
Rapid Medical Evaluation Time Seen by Provider: 07/31/17 15:32 Medical Evaluation: Allergies Allergy/AdvReac Type Severity Reaction Status Date / Time amoxicillin [Amoxicillin] Allergy Severe Itching Verified 07/31/17 15:32 hydrocodone bitartrate Allergy Severe Hives,ITCHI Verified 07/31/17 15:32 [From Vicodin] NG morphine Allergy Severe Itching Verified 07/31/17 15:32 neomycin [Neomycin] Allergy Severe Swelling Verified 07/31/17 15:32 oxycodone HCl [From Percocet] Allergy Severe Itching,HIV Verified 07/31/17 15:32 ES rofecoxib [From Vioxx] Allergy Severe Hives Verified 07/31/17 15:32 Sulfa (Sulfonamide Allergy Severe sclera Verified 07/31/17 15:32 Antibiotics) reddened,ITCHING tramadol Allergy Severe Vomiting Verified 07/31/17 15:32 tomato Allergy Verified 07/31/17 15:32 grapefruit [Grapefruit] AdvReac Severe CAN'T TAKE Verified 07/31/17 15:32 BECAUSE OF MEDICATIONS vancomycin AdvReac Mild red man Verified 07/31/17 15:32 syndrome Heparin Analogues AdvReac Unknown Verified 07/31/17 15:32 [Heparin Agents] flu shot Allergy Severe GETS FLU Uncoded 07/31/17 15:32 SYMPTOMS grape juice AdvReac Severe Uncoded 07/31/17 15:32 I have performed a brief in-person evaluation of this patient. The patient presents with a chief complaint of: dialysis access site hurting for 1 month. Today the pain is worse, had to cut dialysis short by 30 minutes Pertinent physical exam findings: dialysis port in right upper arm that is TTP I have ordered the following: ultrasound arm The patient will proceed to the ED for further evaluation.
--- NOTE | 2017-07-31 16:44 | PDOC ---
History of Present Illness - General Chief Complaint: Dialysis Shunt Problem Stated Complaint: POST-OP/ RT ARM INJURY Time Seen by Provider: 07/31/17 15:32 - History of Present Illness Initial Comments: 07/31/17 16:43 Ms. 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 She reports she had 3 hours of dialysis out of her usual 4 but had to stop due to severe pain she reported as "on top" of her graft site. She reports pain previously during dialysis sessions but never this bad. She has otherwise been in her usual state of health until now. Last dialysis last Monday. The patient denies chest pain, shortness of breath, headache and dizziness. Denies fever, chills, nausea, vomit, diarrhea and constipation. Denies dysuria, frequency, urgency and hematuria. Allergies: Amoxicillin, Hydrocodone, morphine, neomycin, oxycodone, rofecoxib, sulfa, tramadol, vancomycin, heparin Past History - Past Medical History Allergies/Adverse Reactions: Allergies Allergy/AdvReac Type Severity Reaction Status Date / Time amoxicillin [Amoxicillin] Allergy Severe Itching Verified 07/31/17 15:32 hydrocodone bitartrate Allergy Severe Hives,ITCHI Verified 07/31/17 15:32 [From Vicodin] NG morphine Allergy Severe Itching Verified 07/31/17 15:32 neomycin [Neomycin] Allergy Severe Swelling Verified 07/31/17 15:32 oxycodone HCl [From Percocet] Allergy Severe Itching,HIV Verified 07/31/17 15:32 ES rofecoxib [From Vioxx] Allergy Severe Hives Verified 07/31/17 15:32 Sulfa (Sulfonamide Allergy Severe sclera Verified 07/31/17 15:32 Antibiotics) reddened,ITCHING tramadol Allergy Severe Vomiting Verified 07/31/17 15:32 tomato Allergy Verified 07/31/17 15:32 grapefruit [Grapefruit] AdvReac Severe CAN'T TAKE Verified 07/31/17 15:32 BECAUSE OF MEDICATIONS vancomycin AdvReac Mild red man Verified 07/31/17 15:32 syndrome Heparin Analogues AdvReac Unknown Verified 07/31/17 15:32 [Heparin Agents] flu shot Allergy Severe GETS FLU Uncoded 07/31/17 15:32 SYMPTOMS grape juice AdvReac Severe Uncoded 07/31/17 15:32 Home Medications: Ambulatory Orders Albuterol Sulfate Inhaler - [Ventolin HFA Inhaler -] 2 inh PO BID PRN 08/03/16 Atorvastatin Ca [Lipitor] 80 mg PO HS 08/03/16 Brimonidine Tartrate/Timolol [Combigan 0.2%-0.5% Eye Drops] 2 drop OU DAILY 01/10 Furosemide [Lasix] 40 mg PO BID 08/03/16 Lidocaine/Prilocaine Cream [Lidocaine-Prilocaine Cream -] 1 applic TP PRN PRN Mometasone/Formoterol [Dulera 100 Mcg/5 Mcg Inhaler] 2 inh IH BID PRN 08/03/16 Sennosides [Senna] 2 tab PO DAILY 08/03/16 clonazePAM [Klonopin -] 0.5 mg PO BID 08/03/16 Clopidogrel Bisulfate [Plavix -] 75 mg PO DAILY 08/26/16 Aspirin Coated [Ecotrin -] 325 mg PO DAILY 11/07/16 Bupropion HCl [Wellbutrin Xl -] 300 mg PO DAILY #30 tab.sr.24h 12/22/16 Topiramate [Topamax] 50 mg PO BID 01/02/17 Amlodipine Besylate [Norvasc -] 10 mg PO DAILY #30 tablet 01/09/17 Bacitracin - [Bacitracin Topical Ointment -] 1 applic TP DAILY #1 tube 01/09/17 Insulin Sliding Scale [Novolog Vial Sliding Scale -] See Protocol SQ ACHS #30 pen 01/09/17 Pantoprazole Sodium [Protonix -] 40 mg PO DAILY #30 tab 01/09/17 Carvedilol [Coreg] 25 mg PO BID #60 tablet 01/11/17 Insulin Glargine,Hum.rec.anlog [Lantus (10mL VIAL) -] 7 units SQ HS #1 vial levETIRAcetam [Keppra -] 250 mg PO BID 02/08/17 Azithromycin [Zithromax 250mg Tablets -] 250 mg PO DAILY #3 tablet 02/09/17 levETIRAcetam [Keppra -] 500 mg PO BID tablet 02/09/17 Anemia: No Asthma: Yes Cancer: No Cardiac Disorders: No CVA: Yes (TIA 2016) COPD: No CHF: No Dementia: No Diabetes: Yes Dialysis: Yes (m,w,f) GI Disorders: No Disorders: No HTN: Yes Hypercholesterolemia: Yes Liver Disease: No Psychiatric Problems: Yes (ANXIETY.) Seizures: No Thyroid Disease: No - Surgical History Abdominal Surgery: No Appendectomy: No Cardiac Surgery: Yes (AV graft right) Cholecystectomy: No Lung Surgery: No Neurologic Surgery: No Orthopedic Surgery: No - Immunization History Td Vaccination: No TDAP Vaccination: No Immunization Up to Date: Yes - Suicide/Smoking/Psychosocial Hx Smoking Status: No Smoking History: Never smoked Have you smoked in the past 12 months: No Number of Cigarettes Smoked Daily: 0 Hx Alcohol Use: No Drug/Substance Use Hx: No Substance Use Type: None Hx Substance Use Treatment: Yes Review of Systems - Review of Systems Comments:: 07/31/17 16:44 GENERAL/CONSTITUTIONAL: No fever or chills. No weakness. HEAD, EYES, EARS, NOSE AND THROAT: No change in vision. No ear pain or discharge. No sore throat. CARDIOVASCULAR: No chest pain or shortness of breath RESPIRATORY: No cough, wheezing, or hemoptysis. GASTROINTESTINAL: No nausea, vomiting, diarrhea or constipation. GENITOURINARY: No dysuria, frequency, or change in urination. MUSCULOSKELETAL: +Pain as described above RUE dialysis site. SKIN: No rash NEUROLOGIC: No headache, vertigo, loss of consciousness, or change in strength/ sensation. ENDOCRINE: No increased thirst. No abnormal weight change HEMATOLOGIC/LYMPHATIC: No anemia, easy bleeding, or history of blood clots. ALLERGIC/IMMUNOLOGIC: No hives or skin allergy. *Physical Exam - Vital Signs Last Vital Signs Temp Pulse Resp BP Pulse Ox 98.9 F 77 19 141/79 98 07/31/17 15:32 07/31/17 15:32 07/31/17 15:32 07/31/17 15:32 07/31/17 15:32 - Physical Exam Comments: 07/31/17 16:44 GENERAL: Awake, alert, and fully oriented, in no acute distress HEAD: No signs of trauma, normocephalic, atraumatic EYES: PERRLA, EOMI, sclera anicteric, conjunctiva clear ENT: Auricles normal inspection, hearing grossly normal, nares patent, oropharynx clear without exudates. Moist mucosa NECK: Normal ROM, supple, no lymphadenopathy, JVD, or masses LUNGS: No distress, speaks full sentences, clear to auscultation bilaterally HEART: Regular rate and rhythm, normal S1 and S2, no murmurs, rubs or gallops, peripheral pulses normal and equal bilaterally. ABDOMEN: Soft, nontender, normoactive bowel sounds. No guarding, no rebound. No masses EXTREMITIES: +Graft noted to have palpable thrill. No erythema, cellultis, or other acute process noted at graft site. Normal inspection, Normal range of motion, no edema. No clubbing or cyanosis. NEUROLOGICAL: Cranial nerves II through XII grossly intact. Normal speech, normal gait, no focal sensorimotor deficits SKIN: Warm, Dry, normal turgor, no rashes or lesions noted. Medical Decision Making - Medical Decision Making 07/31/17 16:55 Ms. Frankel is a 51 yo female w/ pmh as described who presents for evaluation of RUE pain at her dialysis site. Vascular surgeon consulted. 07/31/17 17:[address] Ch who recommended warm compresses and conservative care as well as lidocaine gel administration 2 hours before next dialysis session. Dr. Ch will see Ms. Frankel in clinic on Monday for further evaluation. 07/31/17 18:56 Graph noted to be patent on evaluation. Discharging patient with lidocaine gel for monday's dialysis session with instructions to follow-up with Dr. Ch on Monday as noted above. *DC/Admit/Observation/Transfer Diagnosis at time of Disposition: Pain - Discharge Dispostion Disposition: HOME - Referrals - Patient Instructions Printed Discharge Instructions: DI for AV Fistula or Graft Declotting Additional Instructions: Use warm compresses on fistula for relief from pain. Apply lidocaine gel given on graft as discussed 2 hours before monday dialysis. Follow-up with Dr. Ch on Monday in clinic for further evaluation. Return to ER if any fever, chills, bleeding, or other concerning symptoms. - Post Discharge Activity
--- NOTE | 2017-07-31 17:15 | PDOC ---
Attending Attestation - Resident Resident Name: Sundar Schaefer - ED Attending Attestation I have performed the following: I have examined & evaluated the patient, The case was reviewed & discussed with the resident, I agree w/resident's findings & plan, Exceptions are as noted - HPI HPI: 51 yo F history ESRD on HD presents with pain at the graft site that started during dialysis. She ended dialysis 30 min early due to pain. No fever, chills, skin rash. - Physicial Exam PE: GENERAL: Awake, alert, and fully oriented, in no acute distress HEAD: No signs of trauma EYES: PERRLA, EOMI, sclera anicteric, conjunctiva clear ENT: Auricles normal inspection, hearing grossly normal, nares patent, oropharynx clear without exudates. Moist mucosa NECK: Normal ROM, supple, no lymphadenopathy, JVD, or masses LUNGS: Breath sounds equal, clear to auscultation bilaterally. No wheezes, and no crackles HEART: Regular rate and rhythm, normal S1 and S2, no murmurs, rubs or gallops ABDOMEN: Soft, nontender, normoactive bowel sounds. No guarding, no rebound. No masses EXTREMITIES: RUE with graft site tenderness, no erythema, no overlying skin change. No clubbing or cyanosis. No cords, erythema. NEUROLOGICAL: Cranial nerves II through XII grossly intact. Normal speech. SKIN: Warm, Dry, normal turgor, no rashes or lesions noted. - Medical Decision Making Graft site pain during dialysis. Will obtain ultrasound and d/w vascular.
[2017-07-31] MEDS ORDERED: LIDOCAINE HCL 2% JELLY (30 ML/TUBE) TP ONE (19:00)
[2017-07-31] MEDS ORDERED: LIDOCAINE HCL 2% JELLY (5 ML/TUBE) ONE (19:14)
== END 2017-07-31 19:17 | disposition home or self-care (01) ==
LOC: JER 15:19
DX: T82.848A Pain due to vascular prosthetic devices, implants and grafts, initial encounter (principal); G89.18 Other acute postprocedural pain; Y82.8 Other medical devices associated with adverse incidents; Y92.89 Other specified places as the place of occurrence of the external cause; I12.0 Hypertensive chronic kidney disease with stage 5 chronic kidney disease or end stage renal disease; E11.22 Type 2 diabetes mellitus with diabetic chronic kidney disease; N18.6 End stage renal disease; Z99.2 Dependence on renal dialysis; N17.8 Other acute kidney failure; Z79.4 Long term (current) use of insulin; E13.319 Other specified diabetes mellitus with unspecified diabetic retinopathy without macular edema; H54.40 Blindness, one eye, unspecified eye; D64.9 Anemia, unspecified; J45.909 Unspecified asthma, uncomplicated; E78.00 Pure hypercholesterolemia, unspecified; F41.9 Anxiety disorder, unspecified
CPT/HCPCS: 93931; 93971; 99281-25

== ENCOUNTER 2018-01-18 12:17 | Day surgery (SDC) | payer OTHER ==
[2018-01-17 20:07] VITALS: BMI 37.0
[2018-01-18] MEDS ORDERED: ONDANSETRON 4 MG/2 ML VIAL IVPUSH PRN (14:31)
[2018-01-18] MEDS ORDERED: PROPOFOL 20 ML ONE (14:31)
[2018-01-18] MEDS ORDERED: MIDAZOLAM HCL 2 MG/2 ML SINGLE DOSE VIAL ONE (14:32)
[2018-01-18] MEDS ORDERED: HEPARIN NA (PORCINE) 5,000 UNITS/ML 1ML VIAL ONE (14:45)
--- NOTE | 2018-01-18 14:47 | HP ---
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 Cardiovascular: Yes: HTN, Hyperlipdemia, Other (Peripheral vascular disease) Pulmonary: Yes: Asthma, Sleep Apnea Gastrointestinal: Yes: Constipation Renal/: Yes: Renal Failure, Hemodialysis ...LMP: 11/08/17 ...: No Heme/Onc: Yes: Anemia Rheumatology: Yes: Other (See HPI) Endocrine: Yes: Diabetes Mellitus - Past Surgical History Past Surgical History: Yes: Amputation, AV Fistula/Graft, - Smoking History Smoking history: Never smoked Have you smoked in the past 12 months: No Aproximately how many cigarettes per day: 0 - Alcohol/Substance Use Hx Alcohol Use: Yes (wine 1 per night 6 oz.) - Social History ADL: Independent History of Recent Travel: No Home Medications - Allergies Allergies/Adverse Reactions: Allergies Allergy/AdvReac Type Severity Reaction Status Date / Time amoxicillin [Amoxicillin] Allergy Severe Itching Verified 01/17/18 19:33 hydrocodone bitartrate Allergy Severe Hives,ITCHI Verified 01/17/18 19:33 [From Vicodin] NG morphine Allergy Severe Itching Verified 01/17/18 19:33 neomycin [Neomycin] Allergy Severe Swelling Verified 01/17/18 19:33 oxycodone HCl [From Percocet] Allergy Severe Itching,HIV Verified 01/17/18 19:33 ES rofecoxib [From Vioxx] Allergy Severe Hives Verified 01/17/18 19:33 Sulfa (Sulfonamide Allergy Severe sclera Verified 01/17/18 19:33 Antibiotics) reddened,ITCHING tramadol Allergy Severe Vomiting Verified 01/17/18 19:33 tomato Allergy Verified 01/17/18 19:33 grapefruit [Grapefruit] AdvReac Severe CAN'T TAKE Verified 01/17/18 19:33 BECAUSE OF MEDICATIONS vancomycin AdvReac Mild red man Verified 01/17/18 19:33 syndrome Heparin Analogues AdvReac Unknown Verified 01/17/18 19:33 [Heparin Agents] flu shot Allergy Severe GETS FLU Uncoded 01/17/18 19:33 SYMPTOMS grape juice AdvReac Severe Uncoded 01/17/18 19:33 - Home Medications Home Medications: Ambulatory Orders Albuterol Sulfate Inhaler - [Ventolin HFA Inhaler -] 2 inh PO BID PRN 08/03/16 Atorvastatin Ca [Lipitor] 80 mg PO HS 08/03/16 Brimonidine Tartrate/Timolol [Combigan 0.2%-0.5% Eye Drops] 2 drop OU DAILY PRN 08/03/16 Furosemide [Lasix] 40 mg PO BID 08/03/16 Lidocaine/Prilocaine Cream [Lidocaine-Prilocaine Cream -] 1 applic TP PRN PRN Mometasone/Formoterol [Dulera 100 Mcg/5 Mcg Inhaler] 2 inh IH BID PRN 08/03/16 Sennosides [Senna] 2 tab PO DAILY 08/03/16 clonazePAM [Klonopin -] 0.5 mg PO BID 08/03/16 Clopidogrel Bisulfate [Plavix -] 75 mg PO DAILY 08/26/16 Aspirin Coated [Ecotrin -] 325 mg PO DAILY 11/07/16 Bupropion HCl [Wellbutrin Xl -] 300 mg PO DAILY #30 tab.sr.24h 12/22/16 Topiramate [Topamax] 50 mg PO BID 01/02/17 Amlodipine Besylate [Norvasc -] 10 mg PO DAILY #30 tablet 01/09/17 Insulin Sliding Scale [Novolog Vial Sliding Scale -] See Protocol SQ ACHS #30 pen 01/09/17 Pantoprazole Sodium [Protonix -] 40 mg PO DAILY #30 tab 01/09/17 Carvedilol [Coreg] 25 mg PO BID #60 tablet 01/11/17 Insulin Glargine,Hum.rec.anlog [Lantus (10mL VIAL) -] 7 units SQ HS #1 vial levETIRAcetam [Keppra -] 250 mg PO BID 02/08/17 Cetirizine HCl [Zyrtec -] 5 mg PO DAILY 11/09/17 Review of Systems - Review of Systems Constitutional: reports: No Symptoms Eyes: reports: No Symptoms HENT: reports: No Symptoms Neck: reports: No Symptoms Cardiovascular: reports: No Symptoms Respiratory: reports: No Symptoms Gastrointestinal: reports: No Symptoms Genitourinary: reports: No Symptoms Musculoskeletal: reports: No Symptoms Integumentary: reports: No Symptoms Neurological: reports: No Symptoms Endocrine: reports: No Symptoms Hematology/Lymphatic: reports: No Symptoms Psychiatric: reports: No Symptoms Physical Examination Vital Signs: Vital Signs Temperature 98.3 F 01/18/18 14:15 Pulse Rate 76 01/18/18 14:15 Respiratory Rate 20 01/18/18 14:15 Blood Pressure 116/75 01/18/18 14:15 O2 Sat by Pulse Oximetry (%) 100 01/18/18 14:15 Constitutional: Yes: Well Nourished, No Distress, Calm Eyes: Yes: WNL, Conjunctiva Clear, EOM Intact HENT: Yes: WNL, Atraumatic, Normocephalic Neck: Yes: WNL, Supple, Trachea Midline Cardiovascular: Yes: WNL, Regular Rate and Rhythm Respiratory: Yes: WNL, Regular, CTA Bilaterally Gastrointestinal: Yes: WNL, Normal Bowel Sounds Musculoskeletal: Yes: WNL Extremities: Yes: WNL Edema: No Peripheral Pulses WNL: Yes Integumentary: Yes: WNL Neurological: Yes: WNL, Alert, Oriented ...Motor Strength: WNL Psychiatric: Yes: WNL Labs: CBC, BMP 01/18/18 13:18 Problem List - Problems (1) AV graft stenosis Assessment/Plan: right avg stenosis 1. For venoplasty today Code(s): T82.858A - STENOSIS OF OTHER VASCULAR PROSTH DEV/GRFT, INIT
[2018-01-18] MEDS ORDERED: LIDOCAINE HCL 1%, 10 MG/ML (20ML VIAL) PNB ONE (15:34)
--- NOTE | 2018-01-18 15:42 | OP ---
Operative Note - Note: Operative Date: 01/18/18 Pre-Operative Diagnosis: Stenosis right avg Operation: venogram, venoplasty right avg Post-Operative Diagnosis: Same as Pre-op Surgeon: Nathan Ch Anesthesia: Fractional Estimated Blood Loss (mls): 20 Operative Report Dictated: Yes
[2018-01-18] MEDS ORDERED: IOHEXOL 300 MG/ML INFUS..BTL IV ONE (16:01)
[2018-01-18 17:36] VITALS: BP 130/70; PULSE 85; TEMP 97.6
--- NOTE | 2018-01-18 19:30 | OP ---
DATE OF OPERATION: 01/18/2018 PROCEDURE: Venogram, venoplasty right arteriovenous graft. SURGEON: Nathan De Los Santos DO ANESTHESIA: Fractional. ESTIMATED BLOOD LOSS: 10 mL. HISTORY: The patient is a 52-year-old female who has stenosis in her right AV graft with prolonged bleeding. Preoperative ultrasound showed stenosis beyond the venous anastomosis in the [place] vein. The patient came in through ambulatory surgery. The patient was consented for the procedure understanding all risks, benefits, and alternatives then taken to the operating room. DESCRIPTION OF PROCEDURE: Once in the operating room, she was laid on the operating table in supine manner. The area of the right arm was prepped and draped in a sterile surgical manner. We then went ahead and injected 10 mL of lidocaine 1% in the proximal AV graft. We then used our micropuncture needle to puncture the right AV graft. Micropuncture wire was inserted. Micropuncture sheath was inserted. A 0.035 floppy guidewire was inserted. We then inserted a short 6-[place] sheath. We then shot a venogram showing that the graft was patent, the stents were patent, but beyond the venous anastomosis there was an 80% stenosis for about 6 cm. At this point, we placed a 0.035 floppy guidewire through it. We used an 8 x 6 balloon and then went ahead and used a 9 x 4 [place] balloon and performed a venoplasty. Completion venogram now showed that the graft was patent, the stents were patent, and the vein was patent without any recoil, and there was good flow all the way into the SVC. At this point, we used a 4-0 Biosyn stitch, and a [id number] stitch was placed around the sheath, and the sheath was pulled. The area was wet and dried, and Dermabond was placed. The patient tolerated the procedure with no complication. The patient was transferred to PACU in stable condition. NATHAN DE LOS SANTOS DO PART TIME RECEPTIONIST/[id number]
== END 2018-01-18 17:30 | disposition home or self-care (01) ==
LOC: JASU-SURG 12:17
PROVIDERS: ATTEND Surgery Vascular Surgery
PROC: 057Y3ZZ Dilation of Upper Vein, Percutaneous Approach (ICD-10-PCS; principal; 2018-01-18 13:30)
DX: T82.858A Stenosis of other vascular prosthetic devices, implants and grafts, initial encounter (principal); I12.0 Hypertensive chronic kidney disease with stage 5 chronic kidney disease or end stage renal disease; E11.22 Type 2 diabetes mellitus with diabetic chronic kidney disease; N18.6 End stage renal disease; Z99.2 Dependence on renal dialysis; Z79.4 Long term (current) use of insulin; D64.9 Anemia, unspecified; E78.5 Hyperlipidemia, unspecified; J45.909 Unspecified asthma, uncomplicated
CPT/HCPCS: 36415; 76000-TC-FY; 82962; 84132; 84703; 94760; J1644

== ENCOUNTER 2018-02-08 22:08 | Emergency (ER) | payer OTHER ==
[2018-02-08 22:15] VITALS: BP 148/80; PULSE 72; TEMP 97.9; BMI 38.0
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
[2018-02-08] MEDS ORDERED: INSULIN (LEVEMIR) 100 UNITS/ML UNITS SQ ONE (23:53)
[2018-02-09] MEDS ORDERED: INSULIN (LEVEMIR) 100 UNITS/ML UNITS SQ ONE (00:06)
[2018-02-09] MEDS ORDERED: ACETAMINOPHEN 325 MG TABLET (FP) PO ONE (05:12)
[2018-02-09] MEDS ORDERED: ACETAMINOPHEN 325 MG TABLET (FP) ONE (05:32)
== END 2018-02-09 10:47 | disposition home or self-care (01) ==
LOC: JER 22:08
PROC: 3E013VG Introduction of Insulin into Subcutaneous Tissue, Percutaneous Approach (ICD-10-PCS; principal; 2018-02-08)
DX: E11.319 Type 2 diabetes mellitus with unspecified diabetic retinopathy without macular edema (principal); Z79.4 Long term (current) use of insulin; I12.0 Hypertensive chronic kidney disease with stage 5 chronic kidney disease or end stage renal disease; E11.22 Type 2 diabetes mellitus with diabetic chronic kidney disease; N18.6 End stage renal disease; N17.8 Other acute kidney failure; Z99.2 Dependence on renal dialysis; H54.62 Unqualified visual loss, left eye, normal vision right eye; D64.9 Anemia, unspecified; G40.909 Epilepsy, unspecified, not intractable, without status epilepticus; K21.9 Gastro-esophageal reflux disease without esophagitis; F41.9 Anxiety disorder, unspecified; Z86.73 Personal history of transient ischemic attack (TIA), and cerebral infarction without residual deficits
CPT/HCPCS: 82962; 99281-25

== ENCOUNTER 2018-03-21 15:07 | Inpatient (IN) | payer OTHER ==
--- NOTE | 2018-03-21 15:57 | PDOC ---
Attending Attestation - Medical Decision Making 03/21/18 16:38 Dr. Pelayo, Neurology, was called and the case was discussed with Dr. Alexander at this time. 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 Per aide, pt became very lethargic, though arousable to stimuli. EMS reports that pt was persistently altered throughout transport with no return to baseline. Fingerstick was 150. Allergies: Past surgical history: Social history: PCP - - Physicial Exam PE: 03/21/18 17:17 "GENERAL: Awake, in no acute distress. HEAD: No signs of trauma EYES: PERRLA, EOMI, sclera anicteric, conjunctiva clear ENT: Auricles normal inspection, hearing grossly normal, nares patent, oropharynx clear without exudates. Moist mucosa NECK: Nontender, no stepoffs, Normal ROM, supple, no lymphadenopathy, JVD, or masses LUNGS: Breath sounds equal, clear to auscultation bilaterally. No wheezes, and no crackles HEART: Regular rate and rhythm, normal S1 and S2, no murmurs, rubs or gallops ABDOMEN: Soft, nontender, normoactive bowel sounds. No guarding, no rebound. No masses EXTREMITIES: Normal range of motion, no edema. No clubbing or cyanosis. No cords, erythema, or tenderness NEUROLOGICAL: + Deviation of eyes to L, does not follow commands, L arm with 5/ 5 strength, R arm with some spontaneous movement, sensation unable to assess SKIN: Warm, Dry, normal turgor, no rashes or lesions noted. - Critical Care Time Total Critical Care Time: 60 Critical Care Statement: The care of this patient involved high complexity decision making to prevent further life threatening deterioration of the patient 's condition and/or to evaluate & treat vital organ system(s) failure or risk of failure. - Medical Decision Making 03/21/18 15:55 52 F with acute onset AMS and lethargy. Possible CVA given h/o prior infarcts. LKN was 1 hour prior to arrival. However, pt is not TPA candidate given ASA/ plavix use, and pt had recent CVA this year in December. Pt also with seizure history, ?post-ictal vs partial seizures. - Labs - CT head - Neuro c/s <Bharat Maravilla - Last Filed: 03/24/18 22:13>
[2018-03-21 16:01] LABS: BASO % 0.3 % (0-2.0); EOS % 2.6 % (0-4.5); LYMPH % 12.5 % (8-40); MCH 35.1 pg (25.7-33.7); MCHC 34.2 g/dl (32.0-36.0); MEAN CELL VOLUME 102.5 fl (80-96); MEAN PLT VOLUME 9.1 fl (7.5-11.1); MONO % 7.2 % (3.8-10.2); NEUT % 77.4 % (42.8-82.8); PLATELET COUNT 148 K/MM3 (134-434); RBC 3.13 M/mm3 (3.60-5.2); RDW 14.4 % (11.6-15.6); WHITE BLOOD COUNT 6.8 K/mm3 (4.0-10.0)
--- NOTE | 2018-03-21 16:05 | PDOC ---
History of Present Illness - General Chief Complaint: CVA/TIA Stated Complaint: CVA/TIA Time Seen by Provider: 03/21/18 15:09 History Source: Patient Exam Limitations: No Limitations - History of Present Illness Initial Comments: 03/21/18 16:04 52 yo female pmh seizures, HTN, TIAs/Strokes, ESRD (dialysis M/W/F) and IDDM presents to the ED from dialysis with gradual onset AMS while receiving dialysis (7 min left in dialysis before stopped). At baseline pt reported to be AOX3 and able to ambulate with a rolling walker. On arrival, EMS state pt reportedly unable to verbalize and is constantly mumbling incomprehensible words. Pt moving left arm but not right arm or either leg. Pt not following commands. NIH Stroke Scale - Last Known Well Date/Time & Onset Date Last Known Well: 03/21/18 Time Last Known Well: 14:00 - Initial Evaluation Level of consciousness: Not alert, but arousable with minimal stimulation Ask patient the month and their age: Both incorrect Ask patient to open & close eyes; make fist and let go: Both incorrect Best gaze (horizontal eye movement): Partial gaze palsy Visual field testing: Bilateral hemianopia (blind including cortical blindness) Facial paresis (Show teeth/raise eyebrows/close eyes tight): Complete paralysis of one or both sides (Upper and lower face) Motor Function: Left Arm: Normal Motor Function: Right Arm: No movement Motor Function: Left Leg: No movement Motor Function: Right Leg: No movement Limb Ataxia: Untestable (Joint fused or limb amputated), explain: Sensory(Use pinprick test arms,legs,trunk,face/side to side): Severe to total sensory loss Best language (Describe picture, name items, read sentences): Severe aphasia Dysarthria (read several words): Near unintelligible or unable to speak Extinction and Inattention: Inattention or extinction bilaterally to one of the sensory modalities - Total Score NIH Stroke Scale Score: 31 Past History - Past Medical History Allergies/Adverse Reactions: Allergies Allergy/AdvReac Type Severity Reaction Status Date / Time amoxicillin [Amoxicillin] Allergy Severe Itching Verified 03/21/18 15:32 hydrocodone bitartrate Allergy Severe Hives,ITCHI Verified 03/21/18 15:32 [From Vicodin] NG morphine Allergy Severe Itching Verified 03/21/18 15:32 neomycin [Neomycin] Allergy Severe Swelling Verified 03/21/18 15:32 oxycodone HCl [From Percocet] Allergy Severe Itching,HIV Verified 03/21/18 15:32 ES rofecoxib [From Vioxx] Allergy Severe Hives Verified 03/21/18 15:32 Sulfa (Sulfonamide Allergy Severe sclera Verified 03/21/18 15:32 Antibiotics) reddened,ITCHING tramadol Allergy Severe Vomiting Verified 03/21/18 15:32 tomato Allergy Verified 03/21/18 15:32 grapefruit [Grapefruit] AdvReac Severe CAN'T TAKE Verified 03/21/18 15:32 BECAUSE OF MEDICATIONS vancomycin AdvReac Mild red man Verified 03/21/18 15:32 syndrome Heparin Analogues AdvReac Unknown Verified 03/21/18 15:32 [Heparin Agents] flu shot Allergy Severe GETS FLU Uncoded 03/21/18 15:32 SYMPTOMS grape juice AdvReac Severe Uncoded 03/21/18 15:32 Home Medications: Ambulatory Orders Albuterol Sulfate Inhaler - [Ventolin HFA Inhaler -] 2 inh PO BID PRN 08/03/16 Atorvastatin Ca [Lipitor] 80 mg PO HS 08/03/16 Brimonidine Tartrate/Timolol [Combigan 0.2%-0.5% Eye Drops] 2 drop OU DAILY PRN 08/03/16 Furosemide [Lasix] 40 mg PO BID 08/03/16 Lidocaine/Prilocaine Cream [Lidocaine-Prilocaine Cream -] 1 applic TP PRN PRN Mometasone/Formoterol [Dulera 100 Mcg/5 Mcg Inhaler] 2 inh IH BID PRN 08/03/16 Sennosides [Senna] 2 tab PO DAILY 08/03/16 clonazePAM [Klonopin -] 0.5 mg PO BID 08/03/16 Clopidogrel Bisulfate [Plavix -] 75 mg PO DAILY 08/26/16 Aspirin Coated [Ecotrin -] 325 mg PO DAILY 11/07/16 Bupropion HCl [Wellbutrin Xl -] 300 mg PO DAILY #30 tab.sr.24h 12/22/16 Topiramate [Topamax] 50 mg PO BID 01/02/17 Amlodipine Besylate [Norvasc -] 10 mg PO DAILY #30 tablet 10/16/17 Insulin Sliding Scale [Novolog Vial Sliding Scale -] See Protocol SQ ACHS #30 pen 01/09/17 Pantoprazole Sodium [Protonix -] 40 mg PO DAILY #30 tab 01/09/17 Carvedilol [Coreg] 25 mg PO BID #60 tablet 01/11/17 Insulin Glargine,Hum.rec.anlog [Lantus (10mL VIAL) -] 7 units SQ HS #1 vial levETIRAcetam [Keppra -] 250 mg PO BID 02/08/17 Cetirizine HCl [Zyrtec -] 5 mg PO DAILY 11/09/17 Anemia: Yes Asthma: Yes Cancer: No Cardiac Disorders: No CVA: Yes (TIA 2016, last 2016, tia x7) COPD: No CHF: No Dementia: No Diabetes: Yes Dialysis: Yes (m,w,f) GI Disorders: Yes (gerd) Disorders: No HTN: Yes Hypercholesterolemia: Yes Liver Disease: No Psychiatric Problems: Yes (ANXIETY.) Seizures: Yes Thyroid Disease: No - Surgical History Abdominal Surgery: No Appendectomy: No Cardiac Surgery: Yes (AV graft right arm) Cholecystectomy: No Lung Surgery: No Neurologic Surgery: No Orthopedic Surgery: No - Immunization History Td Vaccination: No TDAP Vaccination: No Immunization Up to Date: Yes - Suicide/Smoking/Psychosocial Hx Smoking Status: No Smoking History: Never smoked Have you smoked in the past 12 months: No Number of Cigarettes Smoked Daily: 0 Information on smoking cessation initiated: No Hx Alcohol Use: No Drug/Substance Use Hx: No Substance Use Type: Alcohol Hx Substance Use Treatment: No Review of Systems - Review of Systems Able to Perform ROS?: No (AMS non verbal) *Physical Exam - Vital Signs Last Vital Signs Temp Pulse Resp BP Pulse Ox 77 16 120/70 100 03/21/18 15:07 03/21/18 15:07 03/21/18 15:07 03/21/18 15:07 - Physical Exam General Appearance: Yes: Nourished, Appropriately Dressed, Apparent Distress ( mumbling ) HEENT: positive: EOMI, MISA. negative: Lesions Respiratory/Chest: positive: Lungs Clear, Normal Breath Sounds. negative: Accessory Muscle Use, Crackles, Rales, Rhonchi, Wheezing Cardiovascular: positive: Regular Rhythm, Regular Rate, S1, S2. negative: Edema , JVD, Murmur Vascular Pulses: Dorsalis-Pedis (R): 3+, Doralis-Pedis (L): 3+ Gastrointestinal/Abdominal: positive: Normal Bowel Sounds, Flat, Soft. negative : Pulsatile Mass, Distended, Guarding, Rebound Musculoskeletal: positive: Normal Inspection Extremity: positive: Normal Capillary Refill Integumentary: positive: Normal Color, Dry, Warm Neurologic: positive: Confused, Disoriented. negative: personal carer II-XII NML intact, Fully Oriented, Alert, Normal Mood/Affect, Normal Response, Motor Strength 5/5, Facial Droop Moderate Sedation - Procedure Monitoring Vital Signs: Procedure Monitoring Vital Signs Temperature Pulse Rate 77 03/21/18 15:07 Respiratory Rate 16 03/21/18 15:07 Blood Pressure 120/70 03/21/18 15:07 O2 Sat by Pulse Oximetry (%) 100 03/21/18 15:07 ED Treatment Course - LABORATORY CBC & Chemistry Diagram: 03/21/18 15:45 03/21/18 15:45 - ADDITIONAL ORDERS Additional order review: Laboratory Results 03/21/18 15:14 POC Glucometer [id number] 03/21/18 15:14 POC Glucometer [id number] Medical Decision Making - Medical Decision Making 03/21/18 21:04 52 yo female pmh seizures, HTN, TIAs/Strokes, ESRD (dialysis M/W/F) and IDDM presents to the ED from dialysis with gradual onset AMS while receiving dialysis (7 min left in dialysis before stopped). At baseline pt reported to be AOX3 and able to ambulate with a rolling walker. On arrival, EMS state pt reportedly unable to verbalize and is constantly mumbling incomprehensible words. Pt moving left arm but not right arm or either leg. Pt not following commands. Vitals WNL DDX includes but not limited to: stroke, seizure/post ictal state, infection, metabolic Pt had past episode similar to this that was documented as a possible seizure. Keprra was given which improved s/s. pt agitated and resisting attempts to place IV. Given 2 mg ativan IM which helped calm her down. Mumbling improved and pt now able to enunciate words and put a sentence together. Pt follows basic commands Dr. Pelayo consulted who states it is likely another similar episode of seizure and would like 500 of Depakote given with 500 mg BID given going forward during hospital stay. Also would like pt to be admitted to ICU for frequent neuro checks due to severity of presenting symptoms Dr. Serrano agrees to admit pt and ICU accepts *DC/Admit/Observation/Transfer Diagnosis at time of Disposition: Altered mental status, Post-ictal state - Discharge Dispostion Condition at time of disposition: Stable Decision to Admit order: Yes - Referrals Referrals: Sebastián Parr MD [Primary Care Provider] - - Patient Instructions - Post Discharge Activity
[2018-03-21 16:31] LABS: INR 1.07 (0.83-1.09); PROTHROMBIN TIME (PATIENT) 12.6 SEC (9.7-13.0)
[2018-03-21 16:43] LABS: ALBUMIN 3.6 g/dl (3.4-5.0); ALK PHOS 69 U/L (45-117); ANION GAP 8 MMOL/L (8-16); BILIRUBIN,TOTAL 0.4 mg/dL (0.2-1); BLOOD UREA NITROGEN 19 mg/dL (7-18); CALCIUM 8.4 mg/dL (8.5-10.1); CHLORIDE 104 mmol/L (98-107); CHOLESTEROL 79 mg/dL (50-200); CO2 28 mmol/L (21-32); CREATININE 4.9 mg/dL (0.55-1.3); GLUCOSE,RANDOM 129 mg/dL (74-106); HDL CHOLESTEROL 32 mg/dL (40-60); POTASSIUM 3.3 mmol/L (3.5-5.1); SGOT/AST 16 U/L (15-37); SGPT/ALT 17 U/L (13-61); SODIUM 139 mmol/L (136-145); TOT PROT 6.8 g/dl (6.4-8.2); TRIGLYCERIDES 142 mg/dL (0-150)
--- NOTE | 2018-03-21 18:27 | CON.NEURO ---
Consult Consult Specialty:: Gita neurology Referred by:: emergency room Reason for Consultation:: altered mental status - History of Present Illness History of Present Illness: 52-year-old right-handed female patient with the present medical history significant for #1 coronary artery disease. #2 retinal detachment. #3 end-stage renal disease. #4 diabetes mellitus. #5 questionable seizure disorder I was called this afternoon by the emergency room doctor with the stroke protocol that the patient had sudden onset of altered mental status. Patient was at the hemodialysis unit when she slumped over. No report of any active seizure-like activity. According to the chart patient used to have episodes of speech arrest and difficulty with the right arm that got better on the Keppra. Patient was seen in the emergency room. CAT scan of the head I reviewed myself. 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 Cardio/Vascular: Yes: HTN, Hyperlipdemia, Other (Peripheral vascular disease) Pulmonary: Yes: Asthma, Sleep Apnea Gastrointestinal: Yes: Constipation Renal/: Yes: Renal Failure, Hemodialysis ...LMP: 11/08/17 Rheumatology: Yes: Other (See HPI) Endocrine: Yes: Diabetes Mellitus - Past Surgical History Past Surgical History: Yes: Amputation, AV Fistula/Graft, - Alcohol/Substance Use Hx Alcohol Use: No - Smoking History Smoking history: Never smoked Have you smoked in the past 12 months: No Aproximately how many cigarettes per day: 0 - Social History ADL: Independent History of Recent Travel: No Home Medications - Allergies Allergies/Adverse Reactions: Allergies Allergy/AdvReac Type Severity Reaction Status Date / Time amoxicillin [Amoxicillin] Allergy Severe Itching Verified 03/21/18 15:32 hydrocodone bitartrate Allergy Severe Hives,ITCHI Verified 03/21/18 15:32 [From Vicodin] NG morphine Allergy Severe Itching Verified 03/21/18 15:32 neomycin [Neomycin] Allergy Severe Swelling Verified 03/21/18 15:32 oxycodone HCl [From Percocet] Allergy Severe Itching,HIV Verified 03/21/18 15:32 ES rofecoxib [From Vioxx] Allergy Severe Hives Verified 03/21/18 15:32 Sulfa (Sulfonamide Allergy Severe sclera Verified 03/21/18 15:32 Antibiotics) reddened,ITCHING tramadol Allergy Severe Vomiting Verified 03/21/18 15:32 tomato Allergy Verified 03/21/18 15:32 grapefruit [Grapefruit] AdvReac Severe CAN'T TAKE Verified 03/21/18 15:32 BECAUSE OF MEDICATIONS vancomycin AdvReac Mild red man Verified 03/21/18 15:32 syndrome Heparin Analogues AdvReac Unknown Verified 03/21/18 15:32 [Heparin Agents] flu shot Allergy Severe GETS FLU Uncoded 03/21/18 15:32 SYMPTOMS grape juice AdvReac Severe Uncoded 03/21/18 15:32 - Home Medications Home Medications: Ambulatory Orders Albuterol Sulfate Inhaler - [Ventolin HFA Inhaler -] 2 inh PO BID PRN 08/03/16 Atorvastatin Ca [Lipitor] 80 mg PO HS 08/03/16 Brimonidine Tartrate/Timolol [Combigan 0.2%-0.5% Eye Drops] 2 drop OU DAILY PRN 08/03/16 Furosemide [Lasix] 40 mg PO BID 08/03/16 Lidocaine/Prilocaine Cream [Lidocaine-Prilocaine Cream -] 1 applic TP PRN PRN Mometasone/Formoterol [Dulera 100 Mcg/5 Mcg Inhaler] 2 inh IH BID PRN 08/03/16 Sennosides [Senna] 2 tab PO DAILY 08/03/16 clonazePAM [Klonopin -] 0.5 mg PO BID 08/03/16 Clopidogrel Bisulfate [Plavix -] 75 mg PO DAILY 08/26/16 Aspirin Coated [Ecotrin -] 325 mg PO DAILY 11/07/16 Bupropion HCl [Wellbutrin Xl -] 300 mg PO DAILY #30 tab.sr.24h 12/22/16 Topiramate [Topamax] 50 mg PO BID 01/02/17 Amlodipine Besylate [Norvasc -] 10 mg PO DAILY #30 tablet 01/09/17 Insulin Sliding Scale [Novolog Vial Sliding Scale -] See Protocol SQ ACHS #30 pen 01/09/17 Pantoprazole Sodium [Protonix -] 40 mg PO DAILY #30 tab 01/09/17 Carvedilol [Coreg] 25 mg PO BID #60 tablet 01/11/17 Insulin Glargine,Hum.rec.anlog [Lantus (10mL VIAL) -] 7 units SQ HS #1 vial levETIRAcetam [Keppra -] 250 mg PO BID 02/08/17 Cetirizine HCl [Zyrtec -] 5 mg PO DAILY 11/09/17 Family Disease History - Family Disease History Family History: Unable to Obtain Physical Exam-Neuro Vital Signs: Vital Signs Temperature Pulse Rate 77 03/21/18 15:07 Respiratory Rate 16 03/21/18 15:07 Blood Pressure 120/70 03/21/18 15:07 O2 Sat by Pulse Oximetry (%) 100 03/21/18 15:07 Constitutional: Yes: Well Nourished Labs: CBC, BMP 03/21/18 15:45 03/21/18 15:45 INR, PTT INR 1.07 (0.83-1.09) 03/21/18 15:45 - Neuro Exam Level Of Consciousness: Yes: Alert Eyes: Yes: PERRLA Speech: Garbled Dominant Hand: Right Cranial Nerves II-XII Intact: Yes Gag: Present DTR's: 1+ Left Bicep, 1+ Right Bicep, 1+ Left Brachioradialis, 1+ Right Brachioradialis Response to light touch: Normal Response to pain prick: Normal Response to temperature: Normal Motor Strength: 2/5: Left Arm, 4/5: Right Arm, Left Leg, Right Leg Gait: Deferred Imaging - Results Cat Scan: Image Reviewed Problem List - Problems (1) Altered mental status Assessment/Plan: Partial status (Partialis Continua) History of seizure 1. Neuro Checks q 1 hour 2. Admit to MICU 3. Seizure precautions 4. Stat prolactin level 5. Depkene 500 IV q12 6. Blood level in 12 hours 7. EEG 8. Ativan prn IV max 10 mg a day Thank you for [facility] referral Code(s): R41.82 - ALTERED MENTAL STATUS, UNSPECIFIED
[2018-03-21] MEDS ORDERED: LORazepam 2 MG/ML SDV VIAL ONE (19:00)
[2018-03-21] MEDS ORDERED: DIVALPROEX NA *ER* EXTEND REL 500 MG TABLET.SA (FP) PO ONE (19:07)
[2018-03-21] MEDS ORDERED: ALBUTEROL SO4 8 GM HFA INHALER IH PRN (19:50)
--- NOTE | 2018-03-21 20:25 | PN ---
Teaching Attending Note Name of Resident: Dianna Grimm ATTENDING PHYSICIAN STATEMENT I saw and evaluated the patient. I reviewed the resident's note and discussed the case with the resident. I agree with the resident's findings and plan as documented. SUBJECTIVE: patient is awake and oriented to herself only, cannot keep eye contact lungs cta good air entry abdomen soft non-tender extremities moving reflexes +2 in all 4 ext s1 and s2 rrr perrla moist mucosa OBJECTIVE: ASSESSMENT AND PLAN: this is a 52 y/o female patient presented to the hospital for AMS, while the patient was on dialysis according to the patient family the patient was doing fine in the day, until the afternoon where she started to become more lethargic and called the EMS to bring the patient to the ER. in the ED the history was obtained from the family since the patient had expressive aphasia (was speaking but not making sense), neurology were consulted for the possible evaluation for a stroke. patient has a history of ESRD, HTN, DL, seizure disorder, migraine headaches plan: admit the patient to the MICU for infusion of valporate for possible status epilipticus seizure disorder keep the patient NPO MICU consultation neurlogical check q4hrs aspiration precaution seizure precaution IVP lorazepam diazepam or midazolam for an acute seizure renal evaluation neurology consultation c/w home medication c/w insulin
--- NOTE | 2018-03-21 20:35 | HP ---
CHIEF COMPLAINT: AMS PCP: Keshav HISTORY OF PRESENT ILLNESS: The patient is a 52 yo female with pmh of ESRD (dialysis on ), previous stroke with right hemiparesis, TIA, seizure disorder, HTN, asthma, migraines, IDDM, that was brought to the hospital by ambulance from dialysis center. Earlier today while receiving HD she became unresponsive. History was taken from medical documentation and partially from family. The patient doesn't follow any commands and is not able to give any history. Upon arrival to ED, stroke code was initiated. CT head didn't reveal any acute pathology, Neurology was consulted, Ativan given. ER course was notable for: (1)CBC, CMP (2)CT head (3)EKG PAST MEDICAL HISTORY: as above and diabetic retinopathy, blindness of left eye, right carotid occlusion PAST SURGICAL HISTORY: AV right arm Social History: Smoking:no Alcohol:occasionally Drugs: no Family History: N/A Allergies amoxicillin [Amoxicillin] Allergy (Severe, Verified 03/21/18 15:32) Itching hydrocodone bitartrate [From Vicodin] Allergy (Severe, Verified 03/21/18 15:32) Hives,ITCHING morphine Allergy (Severe, Verified 03/21/18 15:32) Itching neomycin [Neomycin] Allergy (Severe, Verified 03/21/18 15:32) Swelling oxycodone HCl [From Percocet] Allergy (Severe, Verified 03/21/18 15:32) Itching,HIVES rofecoxib [From Vioxx] Allergy (Severe, Verified 03/21/18 15:32) Hives Sulfa (Sulfonamide Antibiotics) Allergy (Severe, Verified 03/21/18 15:32) sclera reddened,ITCHING tramadol Allergy (Severe, Verified 03/21/18 15:32) Vomiting tomato Allergy (Verified 03/21/18 15:32) grapefruit [Grapefruit] Adverse Reaction (Severe, Verified 03/21/18 15:32) CAN'T TAKE BECAUSE OF MEDICATIONS vancomycin Adverse Reaction (Mild, Verified 03/21/18 15:32) red man syndrome Heparin Analogues [Heparin Agents] Adverse Reaction (Unknown, Verified 03/21/18 15:32) OF 09/14/14, PT IS ABLE TO TAKE WITH MONITORING OF SYMPTOMS flu shot Allergy (Severe, Uncoded 03/21/18 15:32) GETS FLU SYMPTOMS grape juice Adverse Reaction (Severe, Uncoded 03/21/18 15:32) HOME MEDICATIONS: Home Medications Medication Instructions Recorded Albuterol Sulfate Inhaler - 2 inh PO BID PRN 08/03/16 [Ventolin HFA Inhaler -] Atorvastatin Ca [Lipitor] 80 mg PO HS 08/03/16 Brimonidine Tartrate/Timolol 2 drop OU DAILY PRN 08/03/16 [Combigan 0.2%-0.5% Eye Drops] Furosemide [Lasix] 40 mg PO BID 08/03/16 Lidocaine/Prilocaine Cream 1 applic TP PRN PRN 08/03/16 [Lidocaine-Prilocaine Cream -] Mometasone/Formoterol [Dulera 100 2 inh IH BID PRN 08/03/16 Mcg/5 Mcg Inhaler] Sennosides [Senna] 2 tab PO DAILY 08/03/16 clonazePAM [Klonopin -] 0.5 mg PO BID 08/03/16 Clopidogrel Bisulfate [Plavix -] 75 mg PO DAILY 08/26/16 Aspirin Coated [Ecotrin -] 325 mg PO DAILY 11/07/16 Bupropion HCl [Wellbutrin Xl -] 300 mg PO DAILY #30 tab.sr.24h 12/22/16 Topiramate [Topamax] 50 mg PO BID 01/02/17 Amlodipine Besylate [Norvasc -] 10 mg PO DAILY #30 tablet 01/09/17 Insulin Sliding Scale [Novolog See Protocol SQ ACHS #30 pen 01/09/17 Vial Sliding Scale -] Pantoprazole Sodium [Protonix -] 40 mg PO DAILY #30 tab 01/09/17 Carvedilol [Coreg] 25 mg PO BID #60 tablet 01/11/17 Insulin Glargine,Hum.rec.anlog 7 units SQ HS #1 vial 01/11/17 [Lantus (10mL VIAL) -] levETIRAcetam [Keppra -] 250 mg PO BID 02/08/17 Cetirizine HCl [Zyrtec -] 5 mg PO DAILY 11/09/17 REVIEW OF SYSTEMS N/A PHYSICAL EXAMINATION Vital Signs - 24 hr 03/21/18 15:07 Pulse Rate 77 Respiratory 16 Rate Blood Pressure 120/70 O2 Sat by Pulse 100 Oximetry (%) GENERAL: AAOx0, no acute distress. HEAD: Normal with no signs of trauma. EYES: Pupils equal, pinpoint, sclera anicteric, conjunctiva clear. EARS, NOSE, THROAT: Oropharynx clear without exudates. Moist mucous membranes. NECK: Normal range of motion, supple without lymphadenopathy, JVD, or masses. LUNGS: Breath sounds equal, clear to auscultation bilaterally. No wheezes, and no crackles. No accessory muscle use. HEART: Regular rate and rhythm, normal S1 and S2 without murmur, rub or gallop. ABDOMEN: Obese, soft, nontender, not distended, normoactive bowel sounds, no guarding, no rebound, no masses. MUSCULOSKELETAL: Normal range of motion at all joints. No bony deformities or tenderness. UPPER EXTREMITIES: No peripheral edema, right upper arm AV fistula, bruit present. LOWER EXTREMITIES: 2+ pulses, no peripheral edema. NEUROLOGICAL: Doesn't follow commands, no facial asymmetry, motor not assesses, sensation: nl response to light touch. SKIN: Warm, dry, normal turgor, no rashes. Laboratory Results - last 24 hr 03/21/18 03/21/18 03/21/18 15:14 15:45 15:45 WBC 6.8 RBC 3.13 L Hgb 11.0 Hct 32.0 L MCV 102.5 H MCH 35.1 H MCHC 34.2 RDW 14.4 Plt Count 148 MPV 9.1 Absolute Neuts (auto) 5.2 Neutrophils % 77.4 D Lymphocytes % 12.5 D Monocytes % 7.2 Eosinophils % 2.6 Basophils % 0.3 Nucleated RBC % 0 PT with INR 12.60 INR 1.07 Sodium Potassium Chloride Carbon Dioxide Anion Gap BUN Creatinine Creat Clearance w eGFR POC Glucometer [id number] Random Glucose Lactic Acid Calcium Total Bilirubin AST ALT Alkaline Phosphatase Ammonia Creatine Kinase Troponin I Total Protein Albumin Triglycerides Cholesterol Total LDL Cholesterol HDL Cholesterol Serum , Qual Blood Type Antibody Screen 03/21/18 03/21/18 03/21/18 15:45 15:45 15:45 WBC RBC Hgb Hct MCV MCH MCHC RDW Plt Count MPV Absolute Neuts (auto) Neutrophils % Lymphocytes % Monocytes % Eosinophils % Basophils % Nucleated RBC % PT with INR INR Sodium 139 Potassium 3.3 L Chloride 104 Carbon Dioxide 28 Anion Gap 8 BUN 19 H Creatinine 4.9 H Creat Clearance w eGFR 9.34 POC Glucometer Random Glucose 129 H Lactic Acid Calcium 8.4 L Total Bilirubin 0.4 AST 16 ALT 17 Alkaline Phosphatase 69 Ammonia Creatine Kinase 108 Troponin I 0.02 Total Protein 6.8 Albumin 3.6 Triglycerides 142 Cholesterol 79 Total LDL Cholesterol 30 HDL Cholesterol 32 L Serum , Qual Negative Blood Type A POSITIVE Antibody Screen Negative 03/21/18 03/21/18 15:45 15:45 WBC RBC Hgb Hct MCV MCH MCHC RDW Plt Count MPV Absolute Neuts (auto) Neutrophils % Lymphocytes % Monocytes % Eosinophils % Basophils % Nucleated RBC % PT with INR INR Sodium Potassium Chloride Carbon Dioxide Anion Gap BUN Creatinine Creat Clearance w eGFR POC Glucometer Random Glucose Lactic Acid 0.9 Calcium Total Bilirubin AST ALT Alkaline Phosphatase Ammonia 37.90 H Creatine Kinase Troponin I Total Protein Albumin Triglycerides Cholesterol Total LDL Cholesterol HDL Cholesterol Serum , Qual Blood Type Antibody Screen ASSESSMENT/PLAN: The patient is a 52 yo female with pmh of ESRD (dialysis on ), previous stroke with right hemiparesis, TIA, seizure disorder, HTN, asthma, migraines, IDDM, that was brought to the hospital by ambulance from dialysis center for AMS. AMS: -CT negative, r/o stroke, r/o seizures, less likely infectious due to nl labs, no fever -will follow Neurology recommendations: Depakote 500 mg IV BID, level in AM, seizure precautions, neuro checks q1h, U toxicology, ICU admission, Ativan PRN, hold PO meds for now, NPO -fall risk precautions -EKG reviewed, no acute changes, EEG ordered Hypokalemia: -20 meq KCL DMII: -ISS ACHS -BGM ACHS ESRD: -will f/u labs in AM -didn't finish dialysis today -Nephrology consulted, will f/u recs HTN/CAD: -hold home PO Coreg, Lasix, Norvasc Migraines: -hold Topamax PO Dyslipidemia: -hold statins PO Depression/anxiety: -hold home meds for now F/E/N: NS at 42/no changes/NPO Dispo: ICU Problem List - Problem (1) Altered mental status Code(s): R41.82 - ALTERED MENTAL STATUS, UNSPECIFIED (2) Post-ictal state Code(s): R56.9 - UNSPECIFIED CONVULSIONS (3) Arteriovenous fistula Code(s): I77.0 - ARTERIOVENOUS FISTULA, ACQUIRED (4) CVA (cerebral vascular accident) Code(s): I63.9 - CEREBRAL INFARCTION, UNSPECIFIED (5) ESRD (end stage renal disease) Code(s): N18.6 - END STAGE RENAL DISEASE (6) Hemodialysis access, AV graft Code(s): Z99.2 - DEPENDENCE ON RENAL DIALYSIS (7) Hyperlipemia Code(s): E78.5 - HYPERLIPIDEMIA, UNSPECIFIED Qualifiers: Hyperlipidemia type: unspecified Qualified Code(s): E78.5 - Hyperlipidemia , unspecified (8) TIA (transient ischemic attack) Code(s): G45.9 - TRANSIENT CEREBRAL ISCHEMIC ATTACK, UNSPECIFIED Qualifiers: Transient cerebral ischemia type: unspecified Qualified Code(s): G45.9 - Transient cerebral ischemic attack, unspecified (9) Type 2 diabetes mellitus Code(s): E11.9 - TYPE 2 DIABETES MELLITUS WITHOUT COMPLICATIONS (10) Diabetes Code(s): E11.9 - TYPE 2 DIABETES MELLITUS WITHOUT COMPLICATIONS Qualifiers: Diabetes mellitus type: type 2 Diabetes mellitus senior living insulin use: with senior living use Diabetes mellitus complication status: with kidney complications Diabetes mellitus complication detail: with chronic kidney disease Chronic kidney disease stage: on chronic dialysis Qualified Code(s) : E11.22 - Type 2 diabetes mellitus with diabetic chronic kidney disease; N18.6 - End stage renal disease; Z99.2 - Dependence on renal dialysis; Z99.2 - Dependence on renal dialysis; Z99.2 - Dependence on renal dialysis; N18.6 - End stage renal disease; N18.6 - End stage renal disease; N18.6 - End stage renal disease; Z79.4 - termination clerk (current) use of insulin; Z79.4 - termination clerk (current ) use of insulin; Z79.4 - halfway (current) use of insulin; Z79.4 - halfway (current) use of insulin; Z99.2 - Dependence on renal dialysis (11) H/O: CVA (cerebrovascular accident) Code(s): Z86.73 - PRSNL HX OF TIA (TIA), AND CEREB INFRC W/O RESID DEFICITS (12) Hypertension Code(s): I10 - ESSENTIAL (PRIMARY) HYPERTENSION Qualifiers: Hypertension type: essential hypertension Qualified Code(s): I10 - Essential (primary) hypertension (13) Migraine Code(s): G43.909 - MIGRAINE, UNSP, NOT INTRACTABLE, WITHOUT STATUS MIGRAINOSUS Qualifiers: Migraine type: unspecified Status migrainosus presence: without status migrainosus Intractability: not intractable Qualified Code(s): G43.909 - Migraine, unspecified, not intractable, without status migrainosus Visit type - Emergency Visit Emergency Visit: Yes Care time: The patient presented to the Emergency Department on the above date and was hospitalized for further evaluation of their emergent condition. - New Patient This patient is new to me today: No - Critical Care Critical Care patient: Yes Total Critical Care Time (in minutes): 40 Critical Care Statement: The care of this patient involved high complexity decision making to prevent further life threatening deterioration of the patient 's condition and/or to evaluate & treat vital organ system(s) failure or risk of failure.
[2018-03-21] MEDS: SODIUM CHLORIDE 1,000 ML IV SCH (20:47)
--- NOTE | 2018-03-21 20:59 | CONSULT ---
Consult Consult Specialty:: Pulm/CCM Referred by:: Dr. Maravilla Reason for Consultation:: s/p seizure - History of Present Illness History of Present Illness: 52 yo F h/o ESRD on HD MWF, CVA w/ residual R weakness, seizure disorder, IDDM, migraines, HTN, asthma BIBEMS from dialysis center due to unresponsiveness. Per family and ED chart, patient was found to be weak and unresponsive near the end of her dialysis session. Family said she had body shaking at that time but did not lose control of bladder or bowel. She's confused and unable to follow commands. In the ED, her NIH stroke scale was 31. 2mg of ativan had to be given due to agitation. Neurology saw the patient and recommended depakote 500mg once loading dose and 500mg BID thereafter. 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 Cardio/Vascular: Yes: HTN, Hyperlipdemia, Other (Peripheral vascular disease) Pulmonary: Yes: Asthma, Sleep Apnea Gastrointestinal: Yes: Constipation Renal/: Yes: Renal Failure, Hemodialysis ...LMP: 11/08/17 Rheumatology: Yes: Other (See HPI) Endocrine: Yes: Diabetes Mellitus - Past Surgical History Past Surgical History: Yes: Amputation, AV Fistula/Graft, - Alcohol/Substance Use Hx Alcohol Use: No - Smoking History Smoking history: Never smoked Have you smoked in the past 12 months: No Aproximately how many cigarettes per day: 0 - Social History ADL: Independent History of Recent Travel: No Home Medications - Allergies Allergies/Adverse Reactions: Allergies Allergy/AdvReac Type Severity Reaction Status Date / Time amoxicillin [Amoxicillin] Allergy Severe Itching Verified 03/21/18 15:32 hydrocodone bitartrate Allergy Severe Hives,ITCHI Verified 03/21/18 15:32 [From Vicodin] NG morphine Allergy Severe Itching Verified 03/21/18 15:32 neomycin [Neomycin] Allergy Severe Swelling Verified 03/21/18 15:32 oxycodone HCl [From Percocet] Allergy Severe Itching,HIV Verified 03/21/18 15:32 ES rofecoxib [From Vioxx] Allergy Severe Hives Verified 03/21/18 15:32 Sulfa (Sulfonamide Allergy Severe sclera Verified 03/21/18 15:32 Antibiotics) reddened,ITCHING tramadol Allergy Severe Vomiting Verified 03/21/18 15:32 tomato Allergy Verified 03/21/18 15:32 grapefruit [Grapefruit] AdvReac Severe CAN'T TAKE Verified 03/21/18 15:32 BECAUSE OF MEDICATIONS vancomycin AdvReac Mild red man Verified 03/21/18 15:32 syndrome Heparin Analogues AdvReac Unknown Verified 03/21/18 15:32 [Heparin Agents] flu shot Allergy Severe GETS FLU Uncoded 03/21/18 15:32 SYMPTOMS grape juice AdvReac Severe Uncoded 03/21/18 15:32 - Home Medications Home Medications: Ambulatory Orders Albuterol Sulfate Inhaler - [Ventolin HFA Inhaler -] 2 inh PO BID PRN 08/03/16 Atorvastatin Ca [Lipitor] 80 mg PO HS 08/03/16 Brimonidine Tartrate/Timolol [Combigan 0.2%-0.5% Eye Drops] 2 drop OU DAILY PRN 08/03/16 Furosemide [Lasix] 40 mg PO BID 08/03/16 Lidocaine/Prilocaine Cream [Lidocaine-Prilocaine Cream -] 1 applic TP PRN PRN Mometasone/Formoterol [Dulera 100 Mcg/5 Mcg Inhaler] 2 inh IH BID PRN 08/03/16 Sennosides [Senna] 2 tab PO DAILY 08/03/16 clonazePAM [Klonopin -] 0.5 mg PO BID 08/03/16 Clopidogrel Bisulfate [Plavix -] 75 mg PO DAILY 08/26/16 Aspirin Coated [Ecotrin -] 325 mg PO DAILY 11/07/16 Bupropion HCl [Wellbutrin Xl -] 300 mg PO DAILY #30 tab.sr.24h 12/22/16 Topiramate [Topamax] 50 mg PO BID 01/02/17 Amlodipine Besylate [Norvasc -] 10 mg PO DAILY #30 tablet 01/09/17 Insulin Sliding Scale [Novolog Vial Sliding Scale -] See Protocol SQ ACHS #30 pen 01/09/17 Pantoprazole Sodium [Protonix -] 40 mg PO DAILY #30 tab 01/09/17 Carvedilol [Coreg] 25 mg PO BID #60 tablet 01/11/17 Insulin Glargine,Hum.rec.anlog [Lantus (10mL VIAL) -] 7 units SQ HS #1 vial levETIRAcetam [Keppra -] 250 mg PO BID 02/08/17 Cetirizine HCl [Zyrtec -] 5 mg PO DAILY 11/09/17 Review of Systems Unable to obtain ROS, reason: post-ictal state Physical Exam Vital Signs: Vital Signs Temperature Pulse Rate 77 03/21/18 15:07 Respiratory Rate 16 03/21/18 15:07 Blood Pressure 120/70 03/21/18 15:07 O2 Sat by Pulse Oximetry (%) 100 03/21/18 15:07 Constitutional: Yes: Other (confused, mumbling, unable to communicate, comprehend or follow commands) Eyes: Yes: Conjunctiva Clear, Other (pinpoint pupils unreactive to lights) HENT: Yes: Atraumatic, Normocephalic, Drooling Cardiovascular: Yes: Regular Rate and Rhythm, S1, S2. No: Murmur Respiratory: Yes: CTA Bilaterally Gastrointestinal: Yes: Normal Bowel Sounds, Abdomen, Obese Edema: No Neurological: Yes: Confusion, Unresponsive. No: Alert, Oriented Labs: CBC, BMP 03/21/18 15:45 03/21/18 15:45 Assessment/Plan 52 yo F h/o ESRD on HD MWF, CVA w/ residual R weakness, seizure disorder, IDDM, migraines, HTN, asthma admitted to ICU after seizure. Neuro: 1. Partial seizure - supplemental O2 via NC - depakote 500mg IV BID * level check in 12 hours - ativan 2mg PRN max dose 10mg/day per neurology - f/u prolactin, CPK, lactic acid - correct any electrolyte abnormalities - EEG - neuro checks q1h 2. CVA w/ residual R weakness - cont. asa, plavix, lipitor Renal: 1. ESRD on HD - consult nephrology for in-house HD 2. hypokalemia - repleted CV 1. HTN - cont. home meds Endo 1. IDDM - BGM and SSI Dispo: will admit to ICU Aaron Donovan MD Visit type - Emergency Visit Emergency Visit: Yes Care time: The patient presented to the Emergency Department on the above date and was hospitalized for further evaluation of their emergent condition. - New Patient This patient is new to me today: Yes Date on this admission: 03/21/18 - Critical Care Critical Care patient: Yes Total Critical Care Time (in minutes): 35 Critical Care Statement: The care of this patient involved high complexity decision making to prevent further life threatening deterioration of the patient 's condition and/or to evaluate & treat vital organ system(s) failure or risk of failure.
[2018-03-21] MEDS ORDERED: CHLORHEXIDINE GLUCONATE 4% CLEANSER FOR DECOLONIZATION TP SCH (22:00)
[2018-03-21] MEDS ORDERED: VALPROATE SODIUM 500 MG/5 ML VIAL IVPB SCH (22:00)
[2018-03-21] MEDS ORDERED: MUPIROCIN 2% TOPICAL OINTMENT FOR DECOLONIZATION NS SCH (22:00)
[2018-03-21] MEDS: HEPARIN NA (PORCINE) 5,000 UNITS/ML 1ML VIAL SQ SCH (23:05)
[2018-03-21] MEDS ORDERED: HEPARIN NA (PORCINE) 5,000 UNITS/ML 1ML VIAL ONE (23:16)
[2018-03-21] MEDS ORDERED: VALPROATE SODIUM 500 MG/5 ML VIAL ONE (23:16)
[2018-03-22 00:30] LABS: URINE APPEARANCE CLOUDY; URINE BILIRUBIN NEGATIVE (<2.0 mg/dL); URINE COLOR YELLOW; URINE GLUCOSE (UA) NEGATIVE (NEGATIVE); URINE KETONE NEGATIVE (NEGATIVE); URINE LEUK ESTERASE 3+ (NEGATIVE); URINE NITRITE NEGATIVE (NEGATIVE); URINE PROTEIN 2+ (NEGATIVE); URINE UROBILINOGEN NEGATIVE mg/dL (0.2-1.0)
[2018-03-22 00:33] LABS: EPI CELLS MANY /HPF (FEW); URINE BACTERIA FEW /hpf (NONE SEEN)
[2018-03-22 00:53] LABS: COCAINE, UR NEGATIVE ng/ml (CUTOFF=300); METHADONE, UR NEGATIVE ng/ml (CUTOFF=300); PHENCYCLIDINE,URINE NEGATIVE ng/ml (CUTOFF=25); URINE AMPHETAMINES NEGATIVE ng/ml (CUTOFF=500); URINE BARBITURATES NEGATIVE ng/ml (CUTOFF=200); URINE BENZODIAZEPINES NEGATIVE ng/ml (CUTOFF=200)
[2018-03-22 01:26] LABS: OPIATES, URI POSITIVE ng/ml (CUTOFF=300)
[2018-03-22 02:12] VITALS: BMI 39.9
[2018-03-22 06:10] LABS: BASO % 0.3 % (0-2.0); EOS % 2.4 % (0-4.5); HEMATOCRIT 29.1 % (32.4-45.2); HEMOGLOBIN 9.4 GM/dL (10.7-15.3); LYMPH % 23.6 % (8-40); MCH 33.4 pg (25.7-33.7); MCHC 32.3 g/dl (32.0-36.0); MEAN CELL VOLUME 103.5 fl (80-96); NEUT % 64.7 % (42.8-82.8); PLATELET COUNT 135 K/MM3 (134-434); RBC 2.81 M/mm3 (3.60-5.2); RDW 14.3 % (11.6-15.6); WHITE BLOOD COUNT 6.2 K/mm3 (4.0-10.0)
[2018-03-22] MEDS: HEPARIN NA (PORCINE) 5,000 UNITS/ML 1ML VIAL SQ SCH ×3 (06:35→22:07)
[2018-03-22 06:42] LABS: ALBUMIN 2.9 g/dl (3.4-5.0); ALK PHOS 60 U/L (45-117); ANION GAP 8 MMOL/L (8-16); BILIRUBIN,TOTAL 0.2 mg/dL (0.2-1); BLOOD UREA NITROGEN 25 mg/dL (7-18); CALCIUM 8.1 mg/dL (8.5-10.1); CHLORIDE 108 mmol/L (98-107); CO2 25 mmol/L (21-32); CREATININE 6.4 mg/dL (0.55-1.3); GLUCOSE,RANDOM 70 mg/dL (74-106); MAGNESIUM 2.3 mg/dL (1.8-2.4); PHOSPHOROUS 3.1 mg/dL (2.5-4.9); POTASSIUM 3.7 mmol/L (3.5-5.1); SGOT/AST 30 U/L (15-37); SGPT/ALT 15 U/L (13-61); SODIUM 141 mmol/L (136-145); TOT PROT 5.6 g/dl (6.4-8.2)
[2018-03-22] MEDS ORDERED: NALOXONE HCL 0.4 MG/ML VIAL IVPUSH ONE (09:22)
--- NOTE | 2018-03-22 09:22 | PN ---
Progress Note, Physician History of Present Illness: events noted Chart reviewed Seen in the medical ICU No clinical seizure More speech articulation today Less confused than yesterday On Depakote Of the Chi Noted the urine toxicology hasn't was ordered yesterday by the emergency room - Current Medication List Current Medications: Active Medications Chlorhexidine Gluconate (Hibiclens For Decolonization -) 1 applic TP HS MANDO Heparin Sodium (Porcine) (Heparin -) 5,000 unit SQ TID MANDO Last Admin: 03/22/18 06:35 Dose: 5,000 unit Sodium Chloride (Normal Saline -) 1,000 mls @ 42 mls/hr IV ASDIR MANDO Last Admin: 03/21/18 20:47 Dose: 42 mls/hr Ceftriaxone Sodium 1 gm/ (Dextrose) 50 mls @ 100 mls/hr IVPB DAILY MANDO; Protocol Insulin Aspart (Novolog Vial Sliding Scale -) 1 vial SQ ACHS MANDO; Protocol Lorazepam (Ativan Injection -) 2 mg IVPUSH Q6H PRN PRN Reason: AGITATION Mupirocin (Bactroban Ointment (For Decolonization) -) 1 applic NS BID MANDO Stop: 03/26/18 21:59 - Objective Vital Signs: Vital Signs Temperature 98.7 F 03/22/18 02:06 Pulse Rate 89 03/22/18 08:00 Respiratory Rate 12 03/22/18 08:00 Blood Pressure 142/66 03/22/18 08:00 O2 Sat by Pulse Oximetry (%) 100 03/22/18 05:00 Constitutional: Yes: Well Nourished Eyes: Yes: WNL Neurological: Yes: Alert, Aphasia, Babinski positive ...Motor Strength: RUE (1/5) Labs: CBC, BMP 03/22/18 05:30 03/22/18 05:30 INR, PTT INR 1.07 (0.83-1.09) 03/21/18 15:45 Problem List - Problems (1) Altered mental status Assessment/Plan: questionable partial seizure Remote CVA Opioid dependency questionable 1. Neuro checks every 1 hour. 2. EEG portable. 3. Increase Depakote to 750 twice daily. 4. Depakote level tomorrow. 5. Ativan when necessary seizure. 6. One dose of Narcan. Code(s): R41.82 - ALTERED MENTAL STATUS, UNSPECIFIED
--- NOTE | 2018-03-22 09:24 | PN ---
Physical Exam: SUBJECTIVE: Patient seen and examined at bedside. Pronounced expressive aphasia and non-linear responses. Cannot verbalize complaints. OBJECTIVE: Vital Signs Period Temp Pulse Resp BP Sys/[place] Pulse Ox Last 24 Hr 98.7 F 77-93 12-18 120-147/66-84 100-100 GENERAL: Pronounced expressive aphasia, awake and alert HEAD: NC/AT EYES: PERRLA, EOMI, R-sided ptosis ENT: MMM NECK: Trachea midline, full range of motion, supple. LUNGS: CTA b/l HEART: RRR no m/r/g ABDOMEN: +bs, soft, non-distended, may be TTP diffusely but pt is impaired in verbalizing EXTREMITIES: 1+ pulses, warm, trace-1+ pedal edema b/l NEUROLOGICAL: pronounced expressive aphasia, facial muscle weakness on right side, 1/5 strength in RUE and RLE, right-sided spasticity, generalized weakness , unable to ascertain sensory status, exam otherwise limited SKIN: Warm, dry, normal turgor, no rashes or lesions noted Laboratory Results - last 24 hr 03/21/18 03/21/18 03/21/18 15:14 15:45 15:45 WBC 6.8 RBC 3.13 L Hgb 11.0 Hct 32.0 L MCV 102.5 H MCH 35.1 H MCHC 34.2 RDW 14.4 Plt Count 148 MPV 9.1 Absolute Neuts (auto) 5.2 Neutrophils % 77.4 D Lymphocytes % 12.5 D Monocytes % 7.2 Eosinophils % 2.6 Basophils % 0.3 Nucleated RBC % 0 PT with INR 12.60 INR 1.07 Sodium Potassium Chloride Carbon Dioxide Anion Gap BUN Creatinine Creat Clearance w eGFR POC Glucometer [id number] Random Glucose Hemoglobin A1c % Lactic Acid Calcium Phosphorus Magnesium Total Bilirubin AST ALT Alkaline Phosphatase Ammonia Creatine Kinase Creatine Kinase Index CK-MB (CK-2) Troponin I Total Protein Albumin Triglycerides Cholesterol Total LDL Cholesterol HDL Cholesterol Vitamin B12 Serum , Qual Urine Color Urine Appearance Urine pH Ur Specific Landing Urine Protein Urine Glucose (UA) Urine Ketones Urine Blood Urine Nitrite Urine Bilirubin Urine Urobilinogen Ur Leukocyte Esterase Urine WBC (Auto) Urine RBC (Auto) Ur Epithelial Cells Urine Bacteria Opiates Screen Methadone Screen Barbiturate Screen Valproic Acid Phencyclidine Screen Ur Amphetamines Screen MDMA (Ecstasy) Screen Benzodiazepines Screen Cocaine Screen U Marijuana (THC) Screen Blood Type Antibody Screen 03/21/18 03/21/18 03/21/18 15:45 15:45 15:45 WBC RBC Hgb Hct MCV MCH MCHC RDW Plt Count MPV Absolute Neuts (auto) Neutrophils % Lymphocytes % Monocytes % Eosinophils % Basophils % Nucleated RBC % PT with INR INR Sodium 139 Potassium 3.3 L Chloride 104 Carbon Dioxide 28 Anion Gap 8 BUN 19 H Creatinine 4.9 H Creat Clearance w eGFR 9.34 POC Glucometer Random Glucose 129 H Hemoglobin A1c % Lactic Acid Calcium 8.4 L Phosphorus Magnesium Total Bilirubin 0.4 AST 16 ALT 17 Alkaline Phosphatase 69 Ammonia Creatine Kinase 108 Creatine Kinase Index CK-MB (CK-2) Troponin I 0.02 Total Protein 6.8 Albumin 3.6 Triglycerides 142 Cholesterol 79 Total LDL Cholesterol 30 HDL Cholesterol 32 L Vitamin B12 1045 H Serum , Qual Negative Urine Color Urine Appearance Urine pH Ur Specific Landing Urine Protein Urine Glucose (UA) Urine Ketones Urine Blood Urine Nitrite Urine Bilirubin Urine Urobilinogen Ur Leukocyte Esterase Urine WBC (Auto) Urine RBC (Auto) Ur Epithelial Cells Urine Bacteria Opiates Screen Methadone Screen Barbiturate Screen Valproic Acid Phencyclidine Screen Ur Amphetamines Screen MDMA (Ecstasy) Screen Benzodiazepines Screen Cocaine Screen U Marijuana (THC) Screen Blood Type A POSITIVE Antibody Screen Negative 03/21/18 03/21/18 03/22/18 15:45 15:45 00:01 WBC RBC Hgb Hct MCV MCH MCHC RDW Plt Count MPV Absolute Neuts (auto) Neutrophils % Lymphocytes % Monocytes % Eosinophils % Basophils % Nucleated RBC % PT with INR INR Sodium Potassium Chloride Carbon Dioxide Anion Gap BUN Creatinine Creat Clearance w eGFR POC Glucometer Random Glucose Hemoglobin A1c % Lactic Acid 0.9 Calcium Phosphorus Magnesium Total Bilirubin AST ALT Alkaline Phosphatase Ammonia 37.90 H Creatine Kinase Creatine Kinase Index CK-MB (CK-2) Troponin I Total Protein Albumin Triglycerides Cholesterol Total LDL Cholesterol HDL Cholesterol Vitamin B12 Serum , Qual Urine Color Yellow Urine Appearance Cloudy Urine pH 7.0 D Ur Specific Landing 1.014 Urine Protein 2+ H Urine Glucose (UA) Negative Urine Ketones Negative Urine Blood 1+ H Urine Nitrite Negative Urine Bilirubin Negative Urine Urobilinogen Negative Ur Leukocyte Esterase 3+ H Urine WBC (Auto) 354 Urine RBC (Auto) 17 Ur Epithelial Cells Many Urine Bacteria Few Opiates Screen Methadone Screen Barbiturate Screen Valproic Acid Phencyclidine Screen Ur Amphetamines Screen MDMA (Ecstasy) Screen Benzodiazepines Screen Cocaine Screen U Marijuana (THC) Screen Blood Type Antibody Screen 03/22/18 03/22/18 03/22/18 00:01 05:30 05:30 WBC 6.2 RBC 2.81 L Hgb 9.4 L Hct 29.1 L MCV 103.5 H MCH 33.4 MCHC 32.3 RDW 14.3 Plt Count 135 MPV 9.0 Absolute Neuts (auto) 4.0 Neutrophils % 64.7 Lymphocytes % 23.6 D Monocytes % 9.0 Eosinophils % 2.4 Basophils % 0.3 Nucleated RBC % 0 PT with INR INR Sodium Potassium Chloride Carbon Dioxide Anion Gap BUN Creatinine Creat Clearance w eGFR POC Glucometer Random Glucose Hemoglobin A1c % Lactic Acid Calcium Phosphorus Magnesium Total Bilirubin AST ALT Alkaline Phosphatase Ammonia Creatine Kinase Creatine Kinase Index CK-MB (CK-2) Troponin I Total Protein Albumin Triglycerides Cholesterol Total LDL Cholesterol HDL Cholesterol Vitamin B12 Serum , Qual Urine Color Urine Appearance Urine pH Ur Specific Landing Urine Protein Urine Glucose (UA) Urine Ketones Urine Blood Urine Nitrite Urine Bilirubin Urine Urobilinogen Ur Leukocyte Esterase Urine WBC (Auto) Urine RBC (Auto) Ur Epithelial Cells Urine Bacteria Opiates Screen Positive A* Methadone Screen Negative Barbiturate Screen Negative Valproic Acid 22.5 L Phencyclidine Screen Negative Ur Amphetamines Screen Negative MDMA (Ecstasy) Screen Positive A* Benzodiazepines Screen Negative Cocaine Screen Negative U Marijuana (THC) Screen Negative Blood Type Antibody Screen 03/22/18 03/22/18 05:30 05:30 WBC RBC Hgb Hct MCV MCH MCHC RDW Plt Count MPV Absolute Neuts (auto) Neutrophils % Lymphocytes % Monocytes % Eosinophils % Basophils % Nucleated RBC % PT with INR INR Sodium 141 Potassium 3.7 Chloride 108 H Carbon Dioxide 25 Anion Gap 8 BUN 25 H Creatinine 6.4 H Creat Clearance w eGFR 6.86 POC Glucometer Random Glucose 70 L Hemoglobin A1c % 6.1 Lactic Acid Calcium 8.1 L Phosphorus 3.1 Magnesium 2.3 Total Bilirubin 0.2 AST 30 ALT 15 Alkaline Phosphatase 60 Ammonia Creatine Kinase 846 H Creatine Kinase Index 1.4 CK-MB (CK-2) 12.4 H Troponin I Total Protein 5.6 L Albumin 2.9 L Triglycerides Cholesterol Total LDL Cholesterol HDL Cholesterol Vitamin B12 Serum , Qual Urine Color Urine Appearance Urine pH Ur Specific Landing Urine Protein Urine Glucose (UA) Urine Ketones Urine Blood Urine Nitrite Urine Bilirubin Urine Urobilinogen Ur Leukocyte Esterase Urine WBC (Auto) Urine RBC (Auto) Ur Epithelial Cells Urine Bacteria Opiates Screen Methadone Screen Barbiturate Screen Valproic Acid Phencyclidine Screen Ur Amphetamines Screen MDMA (Ecstasy) Screen Benzodiazepines Screen Cocaine Screen U Marijuana (THC) Screen Blood Type Antibody Screen Active Medications Generic Name Dose Route Start Last Admin Trade Name Freq PRN Reason Stop Dose Admin Chlorhexidine Gluconate 1 applic 03/21/18 22:00 Hibiclens For Decolonization - TP HS MANDO Heparin Sodium (Porcine) 5,000 unit 03/21/18 22:00 03/22/18 06:35 Heparin - SQ 5,000 unit TID MANDO Administration Sodium Chloride 1,000 mls @ 42 mls/hr 03/21/18 15:15 03/21/18 20:47 Normal Saline - IV 42 mls/hr ASDIR MANDO Administration Ceftriaxone Sodium 1 gm/ 50 mls @ 100 mls/hr 03/22/18 10:00 Dextrose IVPB DAILY MANDO Protocol Insulin Aspart 1 vial 03/22/18 11:00 Novolog Vial Sliding Scale - SQ ACHS MANDO Protocol Lorazepam 2 mg 03/21/18 20:45 Ativan Injection - IVPUSH Q6H PRN AGITATION Mupirocin 1 applic 03/21/18 22:00 Bactroban Ointment (For Decolonization) - NS 03/26/18 21:59 BID MANDO Valproate Sodium 500 mg 03/21/18 22:00 03/21/18 23:04 Depacon Injection - IVPB 500 mg BID MANDO Administration ASSESSMENT/PLAN: 52 y/o F w/ PMHx CAD, ESRD on HD MWF, CVA w/ established R-sided deficits, DM, migraine, Sz disorder, asthma, presents after becoming unresponsive during HD yesterday. Per chart review family reports that Pt was shaking. Patient is unable to verbalize history. Admitted to ICU for neuro monitoring. #neuro -per chart review and discussion with prior providers, R-sided deficits are long -standing, aphasia is a new symptom -EEG pending -brain MRI pending -neurology following (Dr. Pelayo) -S/S eval ordered -PT -Tox screen positive for MDMA -received VPA bolus and on VPA BID, initial level low -following neuro recommendations #CV -pending S/S eval prior to restarting home PO meds -VS stable #DM -BGM ACHS -SSI #ESRD -BMP c/w ESRD -nephrology following #FEN -no IVF -monitor and correct electrolytes -NPO pending S/S eval #PPx -DVT: heparin -GI: not indicated #code -full #dispo -transfer to telemetry Visit type - Emergency Visit Emergency Visit: No - New Patient This patient is new to me today: Yes Date on this admission: 03/22/18 - Critical Care Critical Care patient: Yes Total Critical Care Time (in minutes): 40 Critical Care Statement: The care of this patient involved high complexity decision making to prevent further life threatening deterioration of the patient 's condition and/or to evaluate & treat vital organ system(s) failure or risk of failure.
[2018-03-22] MEDS ORDERED: DEXTROSE 5%-WATER - 50 ML IVPB ONE (09:45)
[2018-03-22] MEDS ORDERED: cefTRIAXone SODIUM 1 GM VIAL ONE (09:45)
[2018-03-22] MEDS ORDERED: VALPROATE SODIUM 500 MG/5 ML VIAL IVPB SCH (10:00)
[2018-03-22] MEDS ORDERED: CEFTRIAXONE 1 GM in DEXTROSE 5%-WATER - 50 ML IVPB SCH (10:00)
[2018-03-22] MEDS ORDERED: CEFTRIAXONE 1 GM in DEXTROSE 5%-WATER - 100 ML IVPB SCH (10:00)
--- NOTE | 2018-03-22 12:04 | PN ---
Teaching Attending Note Name of Resident: Sumeet Gonzalez ATTENDING PHYSICIAN STATEMENT I saw and evaluated the patient. I reviewed the resident's note and discussed the case with the resident. I agree with the resident's findings and plan as documented. SUBJECTIVE: Pt seen and examined in the ICU. Slow to respond. No seizure activity noted. OBJECTIVE: Vital Signs Period Temp Pulse Resp BP Sys/[place] Pulse Ox Last 24 Hr 98.7 F 77-93 12-18 120-147/66-84 100-100 Intake & Output 03/19/18 03/20/18 03/21/18 03/22/18 23:59 23:59 23:59 23:59 Weight 122.47 kg 112.037 kg Gen: slow to respond Heart: RRR Lung: decreased breath sounds at the bases Abd: soft, nontender Ext: no edema CBC, BMP 03/22/18 05:30 03/22/18 05:30 Active Medications Chlorhexidine Gluconate (Hibiclens For Decolonization -) 1 applic TP HS MANDO Heparin Sodium (Porcine) (Heparin -) 5,000 unit SQ TID MANDO Last Admin: 03/22/18 06:35 Dose: 5,000 unit Sodium Chloride (Normal Saline -) 1,000 mls @ 42 mls/hr IV ASDIR MANDO Last Admin: 03/21/18 20:47 Dose: 42 mls/hr Ceftriaxone Sodium 1 gm/ (Dextrose) 50 mls @ 100 mls/hr IVPB DAILY MANDO; Protocol Last Admin: 03/22/18 10:24 Dose: 100 mls/hr Insulin Aspart (Novolog Vial Sliding Scale -) 1 vial SQ ACHS MANDO; Protocol Lorazepam (Ativan Injection -) 2 mg IVPUSH Q6H PRN PRN Reason: AGITATION Mupirocin (Bactroban Ointment (For Decolonization) -) 1 applic NS BID MANDO Stop: 03/26/18 21:59 Valproate Sodium (Depacon Injection -) 500 mg IVPB BID MANDO Last Admin: 03/22/18 10:23 Dose: 500 mg ASSESSMENT AND PLAN: Altered Mental Status r/o Acute CVA r/o Seizures Seizure Disorder ESRD on HD HTN UTI - continue antiepileptics - MRI brain - EEG - continue antibiotics - f/u cultures - HD per renal - can monitor on floor
--- NOTE | 2018-03-22 12:15 | EKG ---
Test Reason : Blood Pressure : / mmHG Vent. Rate : 079 BPM Atrial Rate : 079 BPM P-R Int : 200 ms QRS Dur : 082 ms QT Int : 430 ms P-R-T Axes : 049 042 057 degrees QTc Int : 493 ms POOR DATA QUALITY, INTERPRETATION MAY BE ADVERSELY AFFECTED NORMAL SINUS RHYTHM LOW VOLTAGE QRS BORDERLINE ECG WHEN COMPARED WITH ECG OF 06-FEB-2017 11:35, NO SIGNIFICANT CHANGE WAS FOUND Confirmed by SUE MATTA, CHERI ([id number]) on 03/22/2018 12:14:45 PM Referred By: Confirmed By:CHERI ROGERS MD
--- NOTE | 2018-03-22 12:15 | EKG ---
Test Reason : Blood Pressure : / mmHG Vent. Rate : 078 BPM Atrial Rate : 077 BPM P-R Int : 000 ms QRS Dur : 072 ms QT Int : 440 ms P-R-T Axes : 000 019 042 degrees QTc Int : 501 ms POOR DATA QUALITY, INTERPRETATION MAY BE ADVERSELY AFFECTED SINUS RHYTHM LOW VOLTAGE QRS ABNORMAL ECG Confirmed by CHERI ROGERS MD ([id number]) on 03/22/2018 12:15:27 PM Referred By: Confirmed By:CHERI ROGERS MD
--- NOTE | 2018-03-22 12:38 | PN ---
Physical Exam: SUBJECTIVE: Patient seen and examined at bedside this morning. She has difficulty expressing herself. States she passed out yesterday, and does not remember the events leading up to incident. Denies fevers, chills, shortness of breath, chest pain, palpitations. OBJECTIVE: Vital Signs Period Temp Pulse Resp BP Sys/[place] Pulse Ox Last 24 Hr 98.7 F 77-93 12-18 120-147/66-84 100-100 GENERAL: The patient is awake, alert, and fully oriented, in no acute distress. HEAD: Normal with no signs of trauma. EYES: PERRL, extraocular movements intact. Sclera anicteric, conjunctiva clear. Slight ptosis of right eye > left eye. ENT: Oropharynx clear without exudates, moist mucous membranes. NECK: Trachea midline, supple without lymphadenopathy. LUNGS: Breath sounds equal, clear to auscultation bilaterally. No wheezes, no crackles. No accessory muscle use. HEART: Regular rate and rhythm, S1, S2 without murmur, rub or gallop. ABDOMEN: Obese. Soft, nontender, nondistended. Normoactive bowel sounds X4 quadrants. No guarding, no rebound tenderness. No hepatosplenomegaly palpated or percussed. EXTREMITIES: 2+ radial pulses b/l, 1+ dorsalis pedis pulses b/l. 1+ edema b/l lower extremities. Strength 1/5 right upper extremity 4/5 left upper extremity. Strength 1/5 right lower extremity, 3/5 left lower extremity. NEUROLOGICAL: Cranial nerves II through XII grossly intact. Speech is slow, with great difficulty expressing herself. PSYCH: Mood and affect appropriate upon my encounter. SKIN: Warm, dry. Laboratory Results - last 24 hr 03/21/18 03/21/18 03/21/18 15:14 15:45 15:45 WBC 6.8 RBC 3.13 L Hgb 11.0 Hct 32.0 L MCV 102.5 H MCH 35.1 H MCHC 34.2 RDW 14.4 Plt Count 148 MPV 9.1 Absolute Neuts (auto) 5.2 Neutrophils % 77.4 D Lymphocytes % 12.5 D Monocytes % 7.2 Eosinophils % 2.6 Basophils % 0.3 Nucleated RBC % 0 PT with INR 12.60 INR 1.07 Sodium Potassium Chloride Carbon Dioxide Anion Gap BUN Creatinine Creat Clearance w eGFR POC Glucometer [id number] Random Glucose Hemoglobin A1c % Lactic Acid Calcium Phosphorus Magnesium Total Bilirubin AST ALT Alkaline Phosphatase Ammonia Creatine Kinase Creatine Kinase Index CK-MB (CK-2) Troponin I Total Protein Albumin Triglycerides Cholesterol Total LDL Cholesterol HDL Cholesterol Vitamin B12 Serum , Qual Urine Color Urine Appearance Urine pH Ur Specific [place] Urine Protein Urine Glucose (UA) Urine Ketones Urine Blood Urine Nitrite Urine Bilirubin Urine Urobilinogen Ur Leukocyte Esterase Urine WBC (Auto) Urine RBC (Auto) Ur Epithelial Cells Urine Bacteria Opiates Screen Methadone Screen Barbiturate Screen Valproic Acid Phencyclidine Screen Ur Amphetamines Screen MDMA (Ecstasy) Screen Benzodiazepines Screen Cocaine Screen U Marijuana (THC) Screen Blood Type Antibody Screen 03/21/18 03/21/18 03/21/18 15:45 15:45 15:45 WBC RBC Hgb Hct MCV MCH MCHC RDW Plt Count MPV Absolute Neuts (auto) Neutrophils % Lymphocytes % Monocytes % Eosinophils % Basophils % Nucleated RBC % PT with INR INR Sodium 139 Potassium 3.3 L Chloride 104 Carbon Dioxide 28 Anion Gap 8 BUN 19 H Creatinine 4.9 H Creat Clearance w eGFR 9.34 POC Glucometer Random Glucose 129 H Hemoglobin A1c % Lactic Acid Calcium 8.4 L Phosphorus Magnesium Total Bilirubin 0.4 AST 16 ALT 17 Alkaline Phosphatase 69 Ammonia Creatine Kinase 108 Creatine Kinase Index CK-MB (CK-2) Troponin I 0.02 Total Protein 6.8 Albumin 3.6 Triglycerides 142 Cholesterol 79 Total LDL Cholesterol 30 HDL Cholesterol 32 L Vitamin B12 1045 H Serum , Qual Negative Urine Color Urine Appearance Urine pH Ur Specific [place] Urine Protein Urine Glucose (UA) Urine Ketones Urine Blood Urine Nitrite Urine Bilirubin Urine Urobilinogen Ur Leukocyte Esterase Urine WBC (Auto) Urine RBC (Auto) Ur Epithelial Cells Urine Bacteria Opiates Screen Methadone Screen Barbiturate Screen Valproic Acid Phencyclidine Screen Ur Amphetamines Screen MDMA (Ecstasy) Screen Benzodiazepines Screen Cocaine Screen U Marijuana (THC) Screen Blood Type A POSITIVE Antibody Screen Negative 03/21/18 03/21/18 03/22/18 15:45 15:45 00:01 WBC RBC Hgb Hct MCV MCH MCHC RDW Plt Count MPV Absolute Neuts (auto) Neutrophils % Lymphocytes % Monocytes % Eosinophils % Basophils % Nucleated RBC % PT with INR INR Sodium Potassium Chloride Carbon Dioxide Anion Gap BUN Creatinine Creat Clearance w eGFR POC Glucometer Random Glucose Hemoglobin A1c % Lactic Acid 0.9 Calcium Phosphorus Magnesium Total Bilirubin AST ALT Alkaline Phosphatase Ammonia 37.90 H Creatine Kinase Creatine Kinase Index CK-MB (CK-2) Troponin I Total Protein Albumin Triglycerides Cholesterol Total LDL Cholesterol HDL Cholesterol Vitamin B12 Serum , Qual Urine Color Yellow Urine Appearance Cloudy Urine pH 7.0 D Ur Specific [place] 1.014 Urine Protein 2+ H Urine Glucose (UA) Negative Urine Ketones Negative Urine Blood 1+ H Urine Nitrite Negative Urine Bilirubin Negative Urine Urobilinogen Negative Ur Leukocyte Esterase 3+ H Urine WBC (Auto) 354 Urine RBC (Auto) 17 Ur Epithelial Cells Many Urine Bacteria Few Opiates Screen Methadone Screen Barbiturate Screen Valproic Acid Phencyclidine Screen Ur Amphetamines Screen MDMA (Ecstasy) Screen Benzodiazepines Screen Cocaine Screen U Marijuana (THC) Screen Blood Type Antibody Screen 03/22/18 03/22/18 03/22/18 00:01 05:30 05:30 WBC 6.2 RBC 2.81 L Hgb 9.4 L Hct 29.1 L MCV 103.5 H MCH 33.4 MCHC 32.3 RDW 14.3 Plt Count 135 MPV 9.0 Absolute Neuts (auto) 4.0 Neutrophils % 64.7 Lymphocytes % 23.6 D Monocytes % 9.0 Eosinophils % 2.4 Basophils % 0.3 Nucleated RBC % 0 PT with INR INR Sodium Potassium Chloride Carbon Dioxide Anion Gap BUN Creatinine Creat Clearance w eGFR POC Glucometer Random Glucose Hemoglobin A1c % Lactic Acid Calcium Phosphorus Magnesium Total Bilirubin AST ALT Alkaline Phosphatase Ammonia Creatine Kinase Creatine Kinase Index CK-MB (CK-2) Troponin I Total Protein Albumin Triglycerides Cholesterol Total LDL Cholesterol HDL Cholesterol Vitamin B12 Serum , Qual Urine Color Urine Appearance Urine pH Ur Specific [place] Urine Protein Urine Glucose (UA) Urine Ketones Urine Blood Urine Nitrite Urine Bilirubin Urine Urobilinogen Ur Leukocyte Esterase Urine WBC (Auto) Urine RBC (Auto) Ur Epithelial Cells Urine Bacteria Opiates Screen Positive A* Methadone Screen Negative Barbiturate Screen Negative Valproic Acid 22.5 L Phencyclidine Screen Negative Ur Amphetamines Screen Negative MDMA (Ecstasy) Screen Positive A* Benzodiazepines Screen Negative Cocaine Screen Negative U Marijuana (THC) Screen Negative Blood Type Antibody Screen 03/22/18 03/22/18 03/22/18 05:30 05:30 08:40 WBC RBC Hgb Hct MCV MCH MCHC RDW Plt Count MPV Absolute Neuts (auto) Neutrophils % Lymphocytes % Monocytes % Eosinophils % Basophils % Nucleated RBC % PT with INR INR Sodium 141 Potassium 3.7 Chloride 108 H Carbon Dioxide 25 Anion Gap 8 BUN 25 H Creatinine 6.4 H Creat Clearance w eGFR 6.86 POC Glucometer Random Glucose 70 L Hemoglobin A1c % 6.1 Lactic Acid Calcium 8.1 L Phosphorus 3.1 Magnesium 2.3 Total Bilirubin 0.2 AST 30 ALT 15 Alkaline Phosphatase 60 Ammonia Creatine Kinase 846 H Creatine Kinase Index 1.4 CK-MB (CK-2) 12.4 H Troponin I Total Protein 5.6 L Albumin 2.9 L Triglycerides Cholesterol Total LDL Cholesterol HDL Cholesterol Vitamin B12 Serum , Qual Urine Color Urine Appearance Urine pH Ur Specific [place] Urine Protein Urine Glucose (UA) Urine Ketones Urine Blood Urine Nitrite Urine Bilirubin Urine Urobilinogen Ur Leukocyte Esterase Urine WBC (Auto) Urine RBC (Auto) Ur Epithelial Cells Urine Bacteria Opiates Screen Methadone Screen Barbiturate Screen Valproic Acid 14.9 L Phencyclidine Screen Ur Amphetamines Screen MDMA (Ecstasy) Screen Benzodiazepines Screen Cocaine Screen U Marijuana (THC) Screen Blood Type Antibody Screen 03/22/18 11:54 WBC RBC Hgb Hct MCV MCH MCHC RDW Plt Count MPV Absolute Neuts (auto) Neutrophils % Lymphocytes % Monocytes % Eosinophils % Basophils % Nucleated RBC % PT with INR INR Sodium Potassium Chloride Carbon Dioxide Anion Gap BUN Creatinine Creat Clearance w eGFR POC Glucometer [id number] Random Glucose Hemoglobin A1c % Lactic Acid Calcium Phosphorus Magnesium Total Bilirubin AST ALT Alkaline Phosphatase Ammonia Creatine Kinase Creatine Kinase Index CK-MB (CK-2) Troponin I Total Protein Albumin Triglycerides Cholesterol Total LDL Cholesterol HDL Cholesterol Vitamin B12 Serum , Qual Urine Color Urine Appearance Urine pH Ur Specific [place] Urine Protein Urine Glucose (UA) Urine Ketones Urine Blood Urine Nitrite Urine Bilirubin Urine Urobilinogen Ur Leukocyte Esterase Urine WBC (Auto) Urine RBC (Auto) Ur Epithelial Cells Urine Bacteria Opiates Screen Methadone Screen Barbiturate Screen Valproic Acid Phencyclidine Screen Ur Amphetamines Screen MDMA (Ecstasy) Screen Benzodiazepines Screen Cocaine Screen U Marijuana (THC) Screen Blood Type Antibody Screen Active Medications Generic Name Dose Route Start Last Admin Trade Name Freq PRN Reason Stop Dose Admin Chlorhexidine Gluconate 1 applic 03/21/18 22:00 Hibiclens For Decolonization - TP HS MANDO Heparin Sodium (Porcine) 5,000 unit 03/21/18 22:00 03/22/18 06:35 Heparin - SQ 5,000 unit TID MANDO Administration Sodium Chloride 1,000 mls @ 42 mls/hr 03/21/18 15:15 03/21/18 20:47 Normal Saline - IV 42 mls/hr ASDIR MANDO Administration Ceftriaxone Sodium 1 gm/ 50 mls @ 100 mls/hr 03/22/18 10:00 03/22/18 10:24 Dextrose IVPB 100 mls/hr DAILY MANDO Administration Protocol Insulin Aspart 1 vial 03/22/18 11:00 Novolog Vial Sliding Scale - SQ ACHS MANDO Protocol Lorazepam 2 mg 03/21/18 20:45 Ativan Injection - IVPUSH Q6H PRN AGITATION Mupirocin 1 applic 03/21/18 22:00 Bactroban Ointment (For Decolonization) - NS 03/26/18 21:59 BID MANDO Valproate Sodium 500 mg 03/22/18 10:00 03/22/18 10:23 Depacon Injection - IVPB 500 mg BID MANDO Administration ASSESSMENT/PLAN: Patient is a 52 year old female with history of ESRD on HD (Mon/ Mon/ Mon), prior stroke with residual right sided hemiparesis, seizure disorder, hypertension, asthma, insulin dependent diabetes mellitus, migraines, was brought in from dialysis center due to unresponsiveness. Altered mental status -Neurology recommendations (Dr. Pelayo) appreciated. Depacon 750mg IV BID. Will F/U level tomorrow -F/U EEG -F/U MRI -Seizure precautions -Neuro checks Q1H IDDM -ISS ACHS -BGM ACHS ESRD -Patient receives hemodialysis Mon/ Mon/ Mon -Nephrology consult (Dr. Sharma) appreciated. Patient for HD tomorrow. UTI -Noted upon urinalysis -Rocephin 1 gram IV daily (day 1) Hypertension -BP stable. Holding home medications. -Follow vital signs closely Migraines -Holding home Topamax Hyslipidemia -Holding home Atorvastatin FEN -IV normal saline at 42mL/ hour -Follow CMp -Diabetic, sodium controlled diet Prophylaxis -Heparin 5000u subq TID Disposition -Transfer patient to medical-surgical floor. Visit type - Emergency Visit Emergency Visit: Yes ED Registration Date: 03/21/18 Care time: The patient presented to the Emergency Department on the above date and was hospitalized for further evaluation of their emergent condition. - New Patient This patient is new to me today: Yes Date on this admission: 03/22/18 - Critical Care Critical Care patient: Yes Total Critical Care Time (in minutes): 35 Critical Care Statement: The care of this patient involved high complexity decision making to prevent further life threatening deterioration of the patient 's condition and/or to evaluate & treat vital organ system(s) failure or risk of failure. - Discharge Referral Referred to [facility] No
[2018-03-22] MEDS: INSULIN SLIDING SCALE (NOVOLOG) 1 VIAL SQ SCH ×3 (12:42→22:08)
--- NOTE | 2018-03-22 14:49 | CONSULT ---
Admitting History and Physical - Admission History of Present Illness: The patient is a 52 yo female with pmh of ESRD (dialysis on ), previous stroke with right hemiparesis, TIA, seizure disorder, HTN, asthma, migraines, IDDM, that was brought to the hospital by ambulance from dialysis center for AMS. Pt known to me from 2017 admission at which time New onset non-fluent Aphasia, seems cognitively pretty good, frustrated by impaired functional communication. Pt improved significantltly during hospitalization and was referred for continued speech tx upon d/c. 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 Cardiovascular: Yes: HTN, Hyperlipdemia, Other (Peripheral vascular disease) Pulmonary: Yes: Asthma, Sleep Apnea Gastrointestinal: Yes: Constipation Renal/: Yes: Renal Failure, Hemodialysis ...LMP: 11/08/17 Heme/Onc: Yes: Anemia Rheumatology: Yes: Other (See HPI) Endocrine: Yes: Diabetes Mellitus - Past Surgical History Past Surgical History: Yes: Amputation, AV Fistula/Graft, - Smoking History Smoking history: Never smoked Have you smoked in the past 12 months: No Aproximately how many cigarettes per day: 0 - Alcohol/Substance Use Hx Alcohol Use: No - Social History ADL: Independent History of Recent Travel: No History - Admission Reason For Visit: AMS - Diagnostics X-ray: Report Reviewed CT Scan: Report Reviewed MRI: Pending (Pt refusing-Says she is claustrophobic.) - General Mental Status: Alert and Oriented, Awake and Alert, Able to Follow Commands Attention: Intact Ability to Follow Directions: Fair Head/Neck Control: Good - Hearing Hearing: Normal Hearing Aide: No With Patient: No Speech Evaluation - Communication Primary Language: [place] Communication: Yes: Aphasia Oral Expression Ability: Yes: Moderate Impairment - Speech Production Able to Make Needs Known: Yes: Moderately Impaired Intelligibility: Yes: WNL - Speech Characteristics Voice Loudness: Normal Voice Pitch: Yes: Normal Voice Phonatory-based Quality: Yes: Normal Speech Pattern: Impaired Nasal Resonance: Normal Articulation: Yes: Precise - Language/Auditory Comprehension Follows: Yes: 1 Stage Simple Commands Observation: Able to respond to yes/no queries: Yes, Yes/No Confusion: No, Comprehends Conversational Speech: Yes - Language/Verbal Expression Aphasia: Yes: Nonfluent, Anomia, Paraphrasic Errors, Neologisms, Grammatic Errors Able to Respond to Simple Queries: Yes: Mildly Impaired, Moderately Impaired Able to Communicate Wants and Needs: Yes: Mildly Impaired, Moderately Impaired Functional Communication Status: Yes: Mildly Impaired, Moderately Impaired - 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 Memory: Yes: WNL Short Term Memory: Yes: WNL - Swallow Evaluation/Bedside Assessment Current Nutritional Intake: NPO Oral Secretions: Yes: WFL Against Resistance Opening: Normal Against Resistance Closing: Normal Pucker Lips: Normal Smile: Normal Lingual Movement: Symmetric Lingual Speed of Movement: Normal Lingual Movement Strgth Against Opposition: Normal Lingual Movement Characteristics: Normal Laryngeal Elevation: WFL Laryngeal Movement: Able to Palpate Rate of Intake: WFL Bolus Size: WFL Labial Seal: WFL Chewing: WFL Oral Prep Time: WFL A-P Transit: WFL Pocketing: None Timing of Swallow: WFL Coughing/Throat Clear: No Change in Voice: No Recommendations - Speech Evaluation, Impression/Plan Impression: Pt oriented x 3, expressed frustration with ability to communicate and not given time to express herself. Pt reportedly labile, likely sec to frustration. "You make me calm. You listen." Mild to moderate expressive Aphasia sec CVA vs post ictal. No dysarthria/dysphagia. Seems appropriate, good historian with language deficits. - Disposition Discharge to: To be Determined - Dysphagia Impressions/Plan Swallowing Skills: WFL Dysphagia Impressions: No Impairment *Silent aspiration: cannot be R/O at bedside Dysphagia Treatment Plan: Safe Rate, Elevate HOB during feed Recommendations: Other ([facility]- Pt reported to me that she dislikes her present PST MANAGER , but liked the one that filled in- "[facility] [place] - Recommendations Diet Consistency: Regular Medication Administration: Whole with water Liquids: Thin Liquids
--- NOTE | 2018-03-22 15:41 | CONSULT ---
Consult Consult Specialty:: Nephrology Reason for Consultation:: ESRD - History of Present Illness Chief Complaint: sent in for change in mental status History of Present Illness: Pt is a 52 year old female with pmhx of ESRD, HTN, TIA, anemia and DM who was sent in from HD with altered mental status. She is awake and verbal. She does not remember what happens. She denies fevers or chills. She complains of weakness. She denies chest pain or palpitations. Pt had a fingerstick of 150. 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 Cardio/Vascular: Yes: HTN, Hyperlipdemia, Other (Peripheral vascular disease) Pulmonary: Yes: Asthma, Sleep Apnea Gastrointestinal: Yes: Constipation Renal/: Yes: Renal Failure, Hemodialysis ...LMP: 11/08/17 Rheumatology: Yes: Other (See HPI) Endocrine: Yes: Diabetes Mellitus - Past Surgical History Past Surgical History: Yes: Amputation, AV Fistula/Graft, - Alcohol/Substance Use Hx Alcohol Use: No - Smoking History Smoking history: Never smoked Have you smoked in the past 12 months: No Aproximately how many cigarettes per day: 0 - Social History ADL: Independent History of Recent Travel: No Home Medications - Allergies Allergies/Adverse Reactions: Allergies Allergy/AdvReac Type Severity Reaction Status Date / Time amoxicillin [Amoxicillin] Allergy Severe Itching Verified 03/21/18 15:32 hydrocodone bitartrate Allergy Severe Hives,ITCHI Verified 03/21/18 15:32 [From Vicodin] NG morphine Allergy Severe Itching Verified 03/21/18 15:32 neomycin [Neomycin] Allergy Severe Swelling Verified 03/21/18 15:32 oxycodone HCl [From Percocet] Allergy Severe Itching,HIV Verified 03/21/18 15:32 ES rofecoxib [From Vioxx] Allergy Severe Hives Verified 03/21/18 15:32 Sulfa (Sulfonamide Allergy Severe sclera Verified 03/21/18 15:32 Antibiotics) reddened,ITCHING tramadol Allergy Severe Vomiting Verified 03/21/18 15:32 tomato Allergy Verified 03/21/18 15:32 grapefruit [Grapefruit] AdvReac Severe CAN'T TAKE Verified 03/21/18 15:32 BECAUSE OF MEDICATIONS vancomycin AdvReac Mild red man Verified 03/21/18 15:32 syndrome Heparin Analogues AdvReac Unknown Verified 03/21/18 15:32 [Heparin Agents] flu shot Allergy Severe GETS FLU Uncoded 03/21/18 15:32 SYMPTOMS grape juice AdvReac Severe Uncoded 03/21/18 15:32 - Home Medications Home Medications: Ambulatory Orders Albuterol Sulfate Inhaler - [Ventolin HFA Inhaler -] 2 inh PO BID PRN 08/03/16 Atorvastatin Ca [Lipitor] 80 mg PO HS 08/03/16 Brimonidine Tartrate/Timolol [Combigan 0.2%-0.5% Eye Drops] 2 drop OU DAILY PRN 08/03/16 Furosemide [Lasix] 40 mg PO TUTH 08/03/16 Sennosides [Senna] 2 tab PO DAILY 08/03/16 clonazePAM [Klonopin -] 0.5 mg PO BID 08/03/16 Clopidogrel Bisulfate [Plavix -] 75 mg PO DAILY 08/26/16 Aspirin Coated [Ecotrin -] 325 mg PO DAILY 11/07/16 Bupropion HCl [Wellbutrin Xl -] 300 mg PO DAILY #30 tab.sr.24h 12/22/16 Topiramate [Topamax] 50 mg PO BID 01/02/17 Amlodipine Besylate [Norvasc -] 10 mg PO DAILY #30 tablet 01/09/17 Insulin Sliding Scale [Novolog Vial Sliding Scale -] See Protocol SQ ACHS #30 pen 01/09/17 Carvedilol [Coreg] 25 mg PO BID #60 tablet 01/11/17 Insulin Glargine,Hum.rec.anlog [Lantus (10mL VIAL) -] 7 units SQ HS #1 vial Cetirizine HCl [Zyrtec -] 10 mg PO DAILY 11/09/17 Hydralazine HCl 50 mg PO TUTH 03/22/18 Linaclotide [Linzess] 145 mcg PO DAILY 03/22/18 Polyethylene Glycol 3350 [Miralax (For Daily Use) -] 17 gm PO DAILY 03/22/18 Sevelamer Carbonate [Renvela] 800 mg PO AC 03/22/18 levETIRAcetam [Keppra -] 500 mg PO BID 03/22/18 Review of Systems - Review of Systems Constitutional: reports: Malaise Eyes: reports: No Symptoms HENT: reports: No Symptoms Neck: reports: No Symptoms Cardiovascular: reports: No Symptoms Respiratory: reports: No Symptoms Gastrointestinal: reports: No Symptoms Genitourinary: reports: No Symptoms Musculoskeletal: reports: Muscle Weakness Neurological: reports: Change in LOC Endocrine: reports: No Symptoms Psychiatric: reports: No Symptoms Physical Exam Vital Signs: Vital Signs Temperature 98.7 F 03/22/18 02:06 Pulse Rate 89 03/22/18 08:00 Respiratory Rate 12 03/22/18 09:00 Blood Pressure 142/66 03/22/18 08:00 O2 Sat by Pulse Oximetry (%) 96 03/22/18 09:00 Constitutional: Yes: Calm Cardiovascular: Yes: S1, S2 Respiratory: Yes: CTA Bilaterally Gastrointestinal: Yes: Normal Bowel Sounds, Soft Renal/: Yes: WNL Musculoskeletal: Yes: Muscle Weakness Edema: No Neurological: Yes: Oriented, Other (right arm weakness) Psychiatric: Yes: Oriented Labs: CBC, BMP 03/22/18 05:30 03/22/18 05:30 Imaging - Results Cat Scan: Report Reviewed Problem List - Problems (1) Altered mental status Code(s): R41.82 - ALTERED MENTAL STATUS, UNSPECIFIED Assessment/Plan Current Medications Generic Name Dose Route Start Last Admin Trade Name Freq PRN Reason Stop Dose Admin Chlorhexidine Gluconate 1 applic 03/21/18 22:00 03/22/18 12:42 Hibiclens For Decolonization - TP Not Given HS MANDO Heparin Sodium (Porcine) 5,000 unit 03/21/18 22:00 03/22/18 14:00 Heparin - SQ 5,000 unit TID MANDO Administration Sodium Chloride 1,000 mls @ 42 mls/hr 03/21/18 15:15 03/21/18 20:47 Normal Saline - IV 42 mls/hr ASDIR MANDO Administration Ceftriaxone Sodium 1 gm/ 50 mls @ 100 mls/hr 03/22/18 10:00 03/22/18 10:24 Dextrose IVPB 100 mls/hr DAILY MANDO Administration Protocol Insulin Aspart 1 vial 03/22/18 11:00 03/22/18 12:42 Novolog Vial Sliding Scale - SQ Not Given ACHS MANDO Protocol Lorazepam 2 mg 03/21/18 20:45 Ativan Injection - IVPUSH Q6H PRN AGITATION Mupirocin 1 applic 03/21/18 22:00 03/22/18 11:00 Bactroban Ointment (For Decolonization) - NS 03/26/18 21:59 1 applic BID MANDO Administration Valproate Sodium 750 mg 03/22/18 22:00 Depacon Injection - IVPB BID MANDO Impression 1. ESRD 2. r/o CVA 3. DM 4. HLD 5. HTN 6. anemia 7. anxiety Plan - neuro eval - HD in am - discussed with ICU team - 4 hrs, 2 k bath, epogen 1000, hectorol 3.5, 15 gaug 1 1/4 length - renal diabetic diet once started on feeds - monitor bp
[2018-03-22] MEDS ORDERED: SODIUM CHLORIDE 250 ML IV PRN (15:44)
[2018-03-22] MEDS: SODIUM CHLORIDE 1,000 ML IV SCH ×2 (16:00→22:11)
[2018-03-22] MEDS ORDERED: LORazepam 2 MG/ML SDV VIAL IVPUSH PRN (17:41)
--- NOTE | 2018-03-22 17:55 | PN ---
Teaching Attending Note Name of Resident: Romeo Tan ATTENDING PHYSICIAN STATEMENT I saw and evaluated the patient. I reviewed the resident's note and discussed the case with the resident. I agree with the resident's findings and plan as documented. SUBJECTIVE: in no distress, is partially aphasic which per previous notes is at her baseline. OBJECTIVE: ASSESSMENT AND PLAN: AMS: likely to be in the setting of seizure episode, now back to her baseline, at this time pending EEG and MRI brain, will C/W home medication of statin
[2018-03-22] MEDS ORDERED: MUPIROCIN 2% TOPICAL OINTMENT FOR DECOLONIZATION NS SCH (22:00)
[2018-03-22] MEDS ORDERED: CHLORHEXIDINE GLUCONATE 4% CLEANSER FOR DECOLONIZATION TP SCH (22:00)
[2018-03-22] MEDS: VALPROATE SODIUM 500 MG/5 ML VIAL IVPB SCH (22:07)
[2018-03-23] MEDS: HEPARIN NA (PORCINE) 5,000 UNITS/ML 1ML VIAL SQ SCH ×4 (06:02→21:33)
[2018-03-23] MEDS: INSULIN SLIDING SCALE (NOVOLOG) 1 VIAL SQ SCH ×4 (06:02→21:33)
[2018-03-23 06:51] LABS: BASO % 0.8 % (0-2.0); EOS % 4.2 % (0-4.5); HEMATOCRIT 28.8 % (32.4-45.2); HEMOGLOBIN 9.3 GM/dL (10.7-15.3); LYMPH % 34.1 % (8-40); MCH 33.3 pg (25.7-33.7); MCHC 32.1 g/dl (32.0-36.0); MEAN CELL VOLUME 103.8 fl (80-96); MEAN PLT VOLUME 8.8 fl (7.5-11.1); MONO % 8.6 % (3.8-10.2); NEUT % 52.3 % (42.8-82.8); PLATELET COUNT 137 K/MM3 (134-434); RBC 2.78 M/mm3 (3.60-5.2); RDW 14.6 % (11.6-15.6); WHITE BLOOD COUNT 6.1 K/mm3 (4.0-10.0)
[2018-03-23 08:06] LABS: ANION GAP 9 MMOL/L (8-16); BLOOD UREA NITROGEN 40 mg/dL (7-18); CALCIUM 8.2 mg/dL (8.5-10.1); CHLORIDE 107 mmol/L (98-107); CO2 25 mmol/L (21-32); GLUCOSE,RANDOM 74 mg/dL (74-106); MAGNESIUM 2.4 mg/dL (1.8-2.4); PHOSPHOROUS 3.8 mg/dL (2.5-4.9); POTASSIUM 3.9 mmol/L (3.5-5.1); SODIUM 140 mmol/L (136-145)
--- NOTE | 2018-03-23 08:16 | PN ---
Physical Exam: SUBJECTIVE: Patient seen and examined at bedside this morning. She still has difficulty in verbalizing answers to subjective questions. OBJECTIVE: Vital Signs Period Temp Pulse Resp BP Sys/[place] Pulse Ox Last 24 Hr 98 F-98.6 F 76-82 12- 129-162/67-88 96-96 GENERAL: The patient is awake, alert, and fully oriented, in no acute distress. HEAD: Normal with no signs of trauma. EYES: PERRL, extraocular movements intact. Sclera anicteric, conjunctiva clear. Slight ptosis of right eye > left eye. ENT: Oropharynx clear without exudates, moist mucous membranes. NECK: Trachea midline, supple without lymphadenopathy. LUNGS: Breath sounds equal, clear to auscultation bilaterally. No wheezes, no crackles. No accessory muscle use. HEART: Regular rate and rhythm, S1, S2 without murmur, rub or gallop. ABDOMEN: Obese. Soft, nontender, nondistended. Normoactive bowel sounds X4 quadrants. No guarding, no rebound tenderness. No hepatosplenomegaly palpated or percussed. EXTREMITIES: 2+ radial pulses b/l, 1+ dorsalis pedis pulses b/l. 1+ edema b/l lower extremities. Strength 3/5 right upper extremity 4/5 left upper extremity. Strength 3/5 right lower extremity, 4/5 left lower extremity. NEUROLOGICAL: Cranial nerves II through XII grossly intact. Speech is slow, with great difficulty expressing herself. PSYCH: Mood and affect appropriate upon my encounter. SKIN: Warm, dry. Laboratory Results - last 24 hr 03/21/18 03/22/18 03/22/18 20:30 05:30 08:40 WBC RBC Hgb Hct MCV MCH MCHC RDW Plt Count MPV Absolute Neuts (auto) Neutrophils % Lymphocytes % Monocytes % Eosinophils % Basophils % Nucleated RBC % Sodium Potassium Chloride Carbon Dioxide Anion Gap BUN Creat Clearance w eGFR POC Glucometer Random Glucose Calcium Phosphorus Magnesium Prolactin 91.0 H 71.3 H Valproic Acid 14.9 L 03/22/18 03/22/18 03/23/18 11:54 22:04 05:26 WBC RBC Hgb Hct MCV MCH MCHC RDW Plt Count MPV Absolute Neuts (auto) Neutrophils % Lymphocytes % Monocytes % Eosinophils % Basophils % Nucleated RBC % Sodium Potassium Chloride Carbon Dioxide Anion Gap BUN Creat Clearance w eGFR POC Glucometer [id number] 58 Random Glucose Calcium Phosphorus Magnesium Prolactin Valproic Acid 03/23/18 03/23/18 05:30 05:30 WBC 6.1 RBC 2.78 L Hgb 9.3 L Hct 28.8 L MCV 103.8 H MCH 33.3 MCHC 32.1 RDW 14.6 Plt Count 137 MPV 8.8 Absolute Neuts (auto) 3.2 Neutrophils % 52.3 Lymphocytes % 34.1 D Monocytes % 8.6 Eosinophils % 4.2 Basophils % 0.8 Nucleated RBC % 0 Sodium 140 Potassium 3.9 Chloride 107 Carbon Dioxide 25 Anion Gap 9 BUN 40 H Creat Clearance w eGFR 5.01 POC Glucometer Random Glucose 74 Calcium 8.2 L Phosphorus 3.8 Magnesium 2.4 Prolactin Valproic Acid Active Medications Generic Name Dose Route Start Last Admin Trade Name Freq PRN Reason Stop Dose Admin Heparin Sodium (Porcine) 5,000 unit 03/22/18 22:00 03/23/18 06:02 Heparin - SQ Not Given TID [facility] Sodium Chloride 250 mls @ 3,000 mls/hr 03/22/18 15:44 Normal Saline - IV 03/23/18 15:44 PRN PRN Hypotension during Dialysis Ceftriaxone Sodium 1 gm/ 50 mls @ 100 mls/hr 03/23/18 10:00 Dextrose IVPB DAILY [facility] Protocol Sodium Chloride 1,000 mls @ 42 mls/hr 03/22/18 17:41 03/22/18 22:11 Normal Saline - IV Not Given ASDIR [facility] Insulin Aspart 1 vial 03/22/18 22:00 03/23/18 06:02 Novolog Vial Sliding Scale - SQ Not Given ACHS [facility] Protocol Lorazepam 2 mg 03/22/18 17:41 Ativan Injection - IVPUSH Q6H PRN AGITATION Valproate Sodium 750 mg 03/22/18 22:00 03/22/18 22:07 Depacon Injection - IVPB 750 mg BID [facility] Administration ASSESSMENT/PLAN: Patient is a 52 year old female with history of ESRD on HD (Mon/ Mon/ Mon), prior stroke with residual right sided hemiparesis, seizure disorder, hypertension, asthma, insulin dependent diabetes mellitus, migraines, was brought in from dialysis center due to unresponsiveness. Altered mental status -Neurology recommendations (Dr. Pelayo) appreciated. Depacon 750mg IV BID. Will F/U level tomorrow -F/U EEG -F/U MRI -Seizure precautions -Neuro checks Q1H IDDM -ISS ACHS -BGM ACHS ESRD -Patient receives hemodialysis Mon/ Mon/ Mon -Nephrology consult (Dr. Sharma) appreciated. Patient for HD today UTI -Noted upon urinalysis -Rocephin 1 gram IV daily (day 2) Hypertension -BP stable. Holding home medications. -Follow vital signs closely Migraines -Holding home Topamax Hyslipidemia -Holding home Atorvastatin FEN -IV normal saline at 42mL/ hour -Follow CMP -Diabetic, sodium controlled diet Prophylaxis -Heparin 5000u subq TID Disposition -Continue care in medical-surgical floor.
[2018-03-23 08:17] LABS: CREATININE 8.4 mg/dL (0.55-1.3)
[2018-03-23] MEDS ORDERED: PT OWN MED DRAWER 7, Y5N ONE (08:59)
[2018-03-23] MEDS ORDERED: DEXTROSE 5%-WATER - 50 ML IVPB ONE (08:59)
[2018-03-23] MEDS ORDERED: cefTRIAXone SODIUM 1 GM VIAL ONE (08:59)
[2018-03-23] MEDS: VALPROATE SODIUM 500 MG/5 ML VIAL IVPB SCH ×2 (09:10→21:32)
[2018-03-23] MEDS ORDERED: CEFTRIAXONE 1 GM in DEXTROSE 5%-WATER - 50 ML IVPB SCH (10:00)
--- NOTE | 2018-03-23 10:22 | PN ---
Progress Note, ANESTHESIOLOGIST ATTENDING - Note Progress Note: Selected Entries 03/22/18 03/22/18 03/22/18 02:06 10:00 14:00 Supper Temperature 98.7 F 98.5 F 98.6 F 03/22/18 03/22/18 03/22/18 18:00 20:20 20:33 Supper 100% Temperature 98.5 F 98 F 03/23/18 03/23/18 01:55 05:00 Supper Temperature 98.5 F 98.4 F Laboratory Tests 03/23/18 05:30 WBC 6.1 Expressive language improving, still with slow word retrieval, grammatic errors , staccato at times. Oriented and appropriate Tolerating diet. Language function improving, not yet to baseline.
--- NOTE | 2018-03-23 12:29 | PN ---
Progress Note, Physician History of Present Illness: events noted Chart reviewed Moved out of the medical ICU to telemetry More attentive More coherent No shaking or abnormal movement Tolerating the Depakote very well but the level is low - Current Medication List Current Medications: Active Medications Heparin Sodium (Porcine) (Heparin -) 5,000 unit SQ TID [facility] Last Admin: 03/23/18 06:02 Dose: Not Given Sodium Chloride (Normal Saline -) 250 mls @ 3,000 mls/hr IV PRN PRN PRN Reason: Hypotension during Dialysis Stop: 03/23/18 15:44 Ceftriaxone Sodium 1 gm/ (Dextrose) 50 mls @ 100 mls/hr IVPB DAILY [facility]; Protocol Last Admin: 03/23/18 09:11 Dose: 100 mls/hr Sodium Chloride (Normal Saline -) 1,000 mls @ 42 mls/hr IV ASDIR [facility] Last Admin: 03/22/18 22:11 Dose: Not Given Insulin Aspart (Novolog Vial Sliding Scale -) 1 vial SQ ACHS [facility]; Protocol Last Admin: 03/23/18 11:58 Dose: Not Given Lorazepam (Ativan Injection -) 2 mg IVPUSH Q6H PRN PRN Reason: AGITATION Valproate Sodium (Depacon Injection -) 750 mg IVPB BID [facility] Last Admin: 03/23/18 09:10 Dose: 750 mg - Objective Vital Signs: Vital Signs Temperature 98.4 F 03/23/18 05:00 Pulse Rate 76 03/23/18 05:00 Respiratory Rate 18 03/23/18 05:00 Blood Pressure 162/80 03/23/18 05:00 O2 Sat by Pulse Oximetry (%) 96 03/22/18 21:00 Constitutional: Yes: Well Nourished Eyes: Yes: WNL Neurological: Yes: Alert, Oriented, Babinski negative ...Motor Strength: WNL Labs: CBC, BMP 03/23/18 05:30 03/23/18 05:30 INR, PTT INR 1.07 (0.83-1.09) 03/21/18 15:45 Problem List - Problems (1) Altered mental status Assessment/Plan: ccomplex partial seizure Stay off the Keppra Seizure precautions Continued Depakote the same Planning discharge with follow-up with neurology Code(s): R41.82 - ALTERED MENTAL STATUS, UNSPECIFIED
--- NOTE | 2018-03-23 13:26 | PN ---
Physical Exam: SUBJECTIVE: Patient seen and examined at bedside this morning. Patient denies any acute complaints today. Still endorses right arm weakness which is chronic, residual from prior CVA. Informed by RN that patient has refused MRI in our facility. She only will go to an open MRI. OBJECTIVE: Vital Signs Period Temp Pulse Resp BP Sys/[place] Pulse Ox Last 24 Hr 98 F-98.6 F 76-82 14-18 130-162/67-88 96-96 GENERAL: The patient is awake, alert, and fully oriented, in no acute distress. HEAD: Normal with no signs of trauma. EYES: PERRL, extraocular movements intact. Sclera anicteric, conjunctiva clear. Slight ptosis of right eye > left eye. ENT: Oropharynx clear without exudates, moist mucous membranes. NECK: Trachea midline, supple without lymphadenopathy. LUNGS: Breath sounds equal, clear to auscultation bilaterally. No wheezes, no crackles. No accessory muscle use. HEART: Regular rate and rhythm, S1, S2 without murmur, rub or gallop. ABDOMEN: Obese. Soft, nontender, nondistended. Normoactive bowel sounds X4 quadrants. No guarding, no rebound tenderness. No hepatosplenomegaly palpated or percussed. EXTREMITIES: 2+ radial pulses b/l, 1+ dorsalis pedis pulses b/l. 1+ edema b/l lower extremities. Strength 3/5 right upper extremity 4/5 left upper extremity. Strength 3/5 right lower extremity, 4/5 left lower extremity. NEUROLOGICAL: Cranial nerves II through XII grossly intact. Speech is slow, with great difficulty expressing herself. PSYCH: Mood and affect appropriate upon my encounter. SKIN: Warm, dry. Laboratory Results - last 24 hr 03/21/18 03/22/18 03/22/18 20:30 05:30 22:04 WBC RBC Hgb Hct MCV MCH MCHC RDW Plt Count MPV Absolute Neuts (auto) Neutrophils % Lymphocytes % Monocytes % Eosinophils % Basophils % Nucleated RBC % Sodium Potassium Chloride Carbon Dioxide Anion Gap BUN Creatinine Creat Clearance w eGFR POC Glucometer 101 Random Glucose Calcium Phosphorus Magnesium Prolactin 91.0 H 71.3 H 03/23/18 03/23/18 03/23/18 05:26 05:30 05:30 WBC 6.1 RBC 2.78 L Hgb 9.3 L Hct 28.8 L MCV 103.8 H MCH 33.3 MCHC 32.1 RDW 14.6 Plt Count 137 MPV 8.8 Absolute Neuts (auto) 3.2 Neutrophils % 52.3 Lymphocytes % 34.1 D Monocytes % 8.6 Eosinophils % 4.2 Basophils % 0.8 Nucleated RBC % 0 Sodium 140 Potassium 3.9 Chloride 107 Carbon Dioxide 25 Anion Gap 9 BUN 40 H Creatinine 8.4 H* Creat Clearance w eGFR 5.01 POC Glucometer 58 Random Glucose 74 Calcium 8.2 L Phosphorus 3.8 Magnesium 2.4 Prolactin 03/23/18 11:47 WBC RBC Hgb Hct MCV MCH MCHC RDW Plt Count MPV Absolute Neuts (auto) Neutrophils % Lymphocytes % Monocytes % Eosinophils % Basophils % Nucleated RBC % Sodium Potassium Chloride Carbon Dioxide Anion Gap BUN Creatinine Creat Clearance w eGFR POC Glucometer 76 Random Glucose Calcium Phosphorus Magnesium Prolactin Active Medications Generic Name Dose Route Start Last Admin Trade Name Freq PRN Reason Stop Dose Admin Amlodipine Besylate 10 mg 03/24/18 10:00 Norvasc - PO DAILY [facility] Atorvastatin Calcium 80 mg 03/23/18 22:00 Lipitor - PO HS [facility] Carvedilol 25 mg 03/23/18 22:00 Coreg - PO BID [facility] Clopidogrel Bisulfate 75 mg 03/24/18 10:00 Plavix - PO DAILY [facility] Heparin Sodium (Porcine) 5,000 unit 03/22/18 22:00 03/23/18 06:02 Heparin - SQ Not Given TID [facility] Sodium Chloride 250 mls @ 3,000 mls/hr 03/22/18 15:44 Normal Saline - IV 03/23/18 15:44 PRN PRN Hypotension during Dialysis Ceftriaxone Sodium 1 gm/ 50 mls @ 100 mls/hr 03/23/18 10:00 03/23/18 09:11 Dextrose IVPB 100 mls/hr DAILY [facility] Administration Protocol Sodium Chloride 1,000 mls @ 42 mls/hr 03/22/18 17:41 03/22/18 22:11 Normal Saline - IV Not Given ASDIR [facility] Insulin Aspart 1 vial 03/22/18 22:00 03/23/18 11:58 Novolog Vial Sliding Scale - SQ Not Given ACHS [facility] Protocol Lorazepam 2 mg 03/22/18 17:41 Ativan Injection - IVPUSH Q6H PRN AGITATION Sevelamer Carbonate 800 mg 03/23/18 12:45 Renvela - PO AC [facility] Valproate Sodium 750 mg 03/22/18 22:00 03/23/18 09:10 Depacon Injection - IVPB 750 mg BID [facility] Administration ASSESSMENT/PLAN: Patient is a 52 year old female with history of ESRD on HD (Mon/ Mon/ Mon), prior stroke with residual right sided hemiparesis, seizure disorder, hypertension, asthma, insulin dependent diabetes mellitus, migraines, was brought in from dialysis center due to unresponsiveness. Altered mental status -Neurology recommendations (Dr. Pelayo) appreciated. Depacon 750mg IV BID. -F/U EEG read and neurology recommendations. -Patient has refused MRI in our facility. She will require outpatient open MRI , with neurology follow up. -Seizure precautions -Neuro checks Q1H IDDM -ISS ACHS -BGM ACHS ESRD -Patient receives hemodialysis Mon/ Mon/ Mon -Nephrology consult (Dr. Sharma) appreciated. Patient is for HD today. -Sevelamer 800mg PO TID UTI -Noted upon urinalysis -Rocephin 1 gram IV daily (day 3) CAD -Reinstate Aspirin 81mg PO daily -Plavix 75mg PO daily Hypertension -Reinstate Norvasc 10mg PO daily -Coreg 25mg PO BID -Follow vital signs closely Migraines -Holding home Topamax Hyslipidemia -Reinstate Atorvastatin 80mg PO HS FEN -IV normal saline at 42mL/ hour -Follow CMP -Diabetic, sodium controlled diet Prophylaxis -Heparin 5000u subq TID Disposition -Continue care in medical-surgical floor. Visit type - Emergency Visit Emergency Visit: Yes ED Registration Date: 03/21/18 Care time: The patient presented to the Emergency Department on the above date and was hospitalized for further evaluation of their emergent condition. - New Patient This patient is new to me today: No - Critical Care Critical Care patient: No - Discharge Referral Referred to [facility] Med P.C.: No
--- NOTE | 2018-03-23 14:20 | PN ---
Teaching Attending Note Name of Resident: Romeo Tan ATTENDING PHYSICIAN STATEMENT I saw and evaluated the patient. I reviewed the resident's note and discussed the case with the resident. I agree with the resident's findings and plan as documented. SUBJECTIVE: SHE IS IN NO DISTRESS AT THIS TIME , Talks with mild aphasia, but is A&oX3. She has improved in comparison to yesterday. OBJECTIVE: in no distress A&oX3, CVS:S1S2 CTAB Abd:BS+ NT/ND Last Vital Signs Temp Pulse Resp BP Pulse Ox 98.1 F 77 18 146/73 96 03/23/18 10:00 03/23/18 10:00 03/23/18 10:00 03/23/18 10:00 03/23/18 09:00 Current Medications Generic Name Dose Route Start Last Admin Trade Name Freq PRN Reason Stop Dose Admin Amlodipine Besylate 10 mg 03/24/18 10:00 Norvasc - PO DAILY [facility] Atorvastatin Calcium 80 mg 03/23/18 22:00 Lipitor - PO HS [facility] Carvedilol 25 mg 03/23/18 22:00 Coreg - PO BID [facility] Clopidogrel Bisulfate 75 mg 03/24/18 10:00 Plavix - PO DAILY [facility] Heparin Sodium (Porcine) 5,000 unit 03/22/18 22:00 03/23/18 13:31 Heparin - SQ Not Given TID [facility] Sodium Chloride 250 mls @ 3,000 mls/hr 03/22/18 15:44 Normal Saline - IV 03/23/18 15:44 PRN PRN Hypotension during Dialysis Ceftriaxone Sodium 1 gm/ 50 mls @ 100 mls/hr 03/23/18 10:00 03/23/18 09:11 Dextrose IVPB 100 mls/hr DAILY [facility] Administration Protocol Sodium Chloride 1,000 mls @ 42 mls/hr 03/22/18 17:41 03/22/18 22:11 Normal Saline - IV Not Given ASDIR [facility] Insulin Aspart 1 vial 03/22/18 22:00 03/23/18 11:58 Novolog Vial Sliding Scale - SQ Not Given ACHS [facility] Protocol Lorazepam 2 mg 03/22/18 17:41 Ativan Injection - IVPUSH Q6H PRN AGITATION Sevelamer Carbonate 800 mg 03/23/18 16:30 Renvela - PO TIDAC [facility] Valproate Sodium 750 mg 03/22/18 22:00 03/23/18 09:10 Depacon Injection - IVPB 750 mg BID [facility] Administration Home Medications Medication Instructions Recorded Albuterol Sulfate Inhaler - 2 inh PO BID PRN 08/03/16 [Ventolin HFA Inhaler -] Atorvastatin Ca [Lipitor] 80 mg PO HS 08/03/16 Furosemide [Lasix] 40 mg PO TUTH 08/03/16 Sennosides [Senna] 2 tab PO DAILY 08/03/16 clonazePAM [Klonopin -] 0.5 mg PO BID 08/03/16 Clopidogrel Bisulfate [Plavix -] 75 mg PO DAILY 08/26/16 Aspirin Coated [Ecotrin -] 325 mg PO DAILY 11/07/16 Bupropion HCl [Wellbutrin Xl -] 300 mg PO DAILY #30 tab.sr.24h 12/22/16 Topiramate [Topamax] 50 mg PO BID 01/02/17 Amlodipine Besylate [Norvasc -] 10 mg PO DAILY #30 tablet 01/09/17 Insulin Sliding Scale [Novolog See Protocol SQ ACHS #30 pen 01/09/17 Vial Sliding Scale -] Carvedilol [Coreg] 25 mg PO BID #60 tablet 01/11/17 Insulin Glargine,Hum.rec.anlog 7 units SQ HS #1 vial 01/11/17 [Lantus (10mL VIAL) -] Cetirizine HCl [Zyrtec -] 10 mg PO DAILY 11/09/17 Hydralazine HCl 50 mg PO TUTH 03/22/18 Linaclotide [Linzess] 145 mcg PO DAILY 03/22/18 Polyethylene Glycol 3350 [Miralax 17 gm PO DAILY 03/22/18 (For Daily Use) -] Sevelamer Carbonate [Renvela] 800 mg PO AC 03/22/18 levETIRAcetam [Keppra -] 500 mg PO BID 03/22/18 ASSESSMENT AND PLAN: 52 y/o F W HTN, IDDM, ESRD on HD, CVA and seizure disorder after that. P/W an episode of unresponsiveness most likely in the setting of seizure episode.Now close to her baseline MS. Episode of unresponsiveness likely in the setting of another episode of seizure been evaluated by neuro and their recs appreciated. Is to get MRI and EEG , plan to C/ W depokate and DCed the Keppra and F/U with neuro ESRDS ON hd: APPARENTLY SHE STILL MAEK URINE AND IS ON FRUSEIDE which we will continue HTN, CVA: will restart her on her home medication IDDM: on insulin CAD: on carvedilol Dispo: likely DC today after the imaging has been done
--- NOTE | 2018-03-23 15:18 | PN ---
Progress Note, Physician History of Present Illness: Pt seen and examined at bedside. She is more awake and alert. She denies shortness of breath. Her mother is at bedside and care was discussed with her. - Current Medication List Current Medications: Active Medications Amlodipine Besylate (Norvasc -) 10 mg PO DAILY [facility] Atorvastatin Calcium (Lipitor -) 80 mg PO HS [facility] Carvedilol (Coreg -) 25 mg PO BID [facility] Clopidogrel Bisulfate (Plavix -) 75 mg PO DAILY [facility] Heparin Sodium (Porcine) (Heparin -) 5,000 unit SQ TID [facility] Last Admin: 03/23/18 13:31 Dose: Not Given Sodium Chloride (Normal Saline -) 250 mls @ 3,000 mls/hr IV PRN PRN PRN Reason: Hypotension during Dialysis Stop: 03/23/18 15:44 Sodium Chloride (Normal Saline -) 1,000 mls @ 42 mls/hr IV ASDIR [facility] Last Admin: 03/22/18 22:11 Dose: Not Given Insulin Aspart (Novolog Vial Sliding Scale -) 1 vial SQ ACHS [facility]; Protocol Last Admin: 03/23/18 11:58 Dose: Not Given Lorazepam (Ativan Injection -) 2 mg IVPUSH Q6H PRN PRN Reason: AGITATION Sevelamer Carbonate (Renvela -) 800 mg PO TIDAC [facility] Valproate Sodium (Depacon Injection -) 750 mg IVPB BID [facility] Last Admin: 03/23/18 09:10 Dose: 750 mg - Objective Vital Signs: Vital Signs Temperature 98.1 F 03/23/18 10:00 Pulse Rate 77 03/23/18 10:00 Respiratory Rate 18 03/23/18 10:00 Blood Pressure 146/73 03/23/18 10:00 O2 Sat by Pulse Oximetry (%) 96 03/23/18 09:00 Constitutional: Yes: Calm Eyes: Yes: Conjunctiva Clear Cardiovascular: Yes: S1, S2 Respiratory: Yes: CTA Bilaterally Gastrointestinal: Yes: Soft, Abdomen, Obese Genitourinary: Yes: WNL Musculoskeletal: Yes: Muscle Weakness Edema: Yes Edema: LLE: Trace, RLE: Trace Neurological: Yes: Other (more coherent) Labs: CBC, BMP 03/23/18 05:30 03/23/18 05:30 INR, PTT INR 1.07 (0.83-1.09) 03/21/18 15:45 Problem List - Problems (1) Altered mental status Code(s): R41.82 - ALTERED MENTAL STATUS, UNSPECIFIED Assessment/Plan Current Medications Generic Name Dose Route Start Last Admin Trade Name Freq PRN Reason Stop Dose Admin Amlodipine Besylate 10 mg 03/24/18 10:00 Norvasc - PO DAILY [facility] Atorvastatin Calcium 80 mg 03/23/18 22:00 Lipitor - PO HS [facility] Carvedilol 25 mg 03/23/18 22:00 Coreg - PO BID [facility] Clopidogrel Bisulfate 75 mg 03/24/18 10:00 Plavix - PO DAILY [facility] Heparin Sodium (Porcine) 5,000 unit 03/22/18 22:00 03/23/18 13:31 Heparin - SQ Not Given TID [facility] Sodium Chloride 250 mls @ 3,000 mls/hr 03/22/18 15:44 Normal Saline - IV 03/23/18 15:44 PRN PRN Hypotension during Dialysis Sodium Chloride 1,000 mls @ 42 mls/hr 03/22/18 17:41 03/22/18 22:11 Normal Saline - IV Not Given ASDIR [facility] Insulin Aspart 1 vial 03/22/18 22:00 03/23/18 11:58 Novolog Vial Sliding Scale - SQ Not Given ACHS [facility] Protocol Lorazepam 2 mg 03/22/18 17:41 Ativan Injection - IVPUSH Q6H PRN AGITATION Sevelamer Carbonate 800 mg 03/23/18 16:30 Renvela - PO TIDAC [facility] Valproate Sodium 750 mg 03/22/18 22:00 03/23/18 09:10 Depacon Injection - IVPB 750 mg BID [facility] Administration Impression 1. ESRD 2. r/o CVA 3. DM 4. HLD 5. HTN 6. anemia 7. anxiety 8. seizure Plan - HD today - mental status is improved - discussed plan with pt and her mother - next HD after today will be on Monday (holiday schedule) - 4 hrs, 2 k bath, epogen 1000, hectorol 3.5, 15 gaug 1 1/4 length - renal diabetic diet - monitor bp
[2018-03-23] MEDS: SEVELAMER CARBONATE 800 MG TAB (FP) PO SCH (16:47)
[2018-03-23] MEDS: SODIUM CHLORIDE 1,000 ML IV SCH (16:49)
[2018-03-23] MEDS: CARVEDILOL 25 MG TABLET (FP) PO SCH (21:32)
[2018-03-23] MEDS: ATORVASTATIN CA 80 MG TABLET (FP) PO SCH (21:32)
[2018-03-24] MEDS: INSULIN SLIDING SCALE (NOVOLOG) 1 VIAL SQ SCH ×4 (06:21→22:19)
[2018-03-24] MEDS: HEPARIN NA (PORCINE) 5,000 UNITS/ML 1ML VIAL SQ SCH ×3 (06:21→22:06)
[2018-03-24] MEDS: SEVELAMER CARBONATE 800 MG TAB (FP) PO SCH ×3 (06:21→17:20)
[2018-03-24] MEDS ORDERED: PT OWN MED DRAWER 7, Y5N ONE (09:05)
[2018-03-24] MEDS: CARVEDILOL 25 MG TABLET (FP) PO SCH ×2 (09:45→21:34)
[2018-03-24] MEDS: VALPROATE SODIUM 500 MG/5 ML VIAL IVPB SCH (09:45)
[2018-03-24] MEDS: ASPIRIN 325 MG TABLET PO SCH (09:45)
[2018-03-24] MEDS: amLODIPine BESYLATE 10 MG TABLET (FP) PO SCH (09:45)
[2018-03-24] MEDS: CLOPIDOGREL BISULFATE 75 MG TABLET (FP) PO SCH (09:45)
[2018-03-24 09:55] LABS: HEMATOCRIT 30.2 % (32.4-45.2); HEMOGLOBIN 10.4 GM/dL (10.7-15.3); MCH 35.4 pg (25.7-33.7); MCHC 34.4 g/dl (32.0-36.0); MEAN CELL VOLUME 102.9 fl (80-96); MEAN PLT VOLUME 9.1 fl (7.5-11.1); PLATELET COUNT 142 K/MM3 (134-434); RBC 2.94 M/mm3 (3.60-5.2); RDW 14.9 % (11.6-15.6); WHITE BLOOD COUNT 5.7 K/mm3 (4.0-10.0)
[2018-03-24 11:11] LABS: ALBUMIN 3.3 g/dl (3.4-5.0); ALK PHOS 62 U/L (45-117); ANION GAP 8 MMOL/L (8-16); BILIRUBIN,TOTAL 0.4 mg/dL (0.2-1); BLOOD UREA NITROGEN 30 mg/dL (7-18); CALCIUM 8.7 mg/dL (8.5-10.1); CHLORIDE 104 mmol/L (98-107); CO2 28 mmol/L (21-32); CREATININE 6.8 mg/dL (0.55-1.3); GLUCOSE,RANDOM 78 mg/dL (74-106); MAGNESIUM 2.1 mg/dL (1.8-2.4); PHOSPHOROUS 3.8 mg/dL (2.5-4.9); POTASSIUM 3.9 mmol/L (3.5-5.1); SGOT/AST 33 U/L (15-37); SGPT/ALT 24 U/L (13-61); SODIUM 140 mmol/L (136-145); TOT PROT 6.1 g/dl (6.4-8.2)
--- NOTE | 2018-03-24 13:23 | PN ---
Physical Exam: SUBJECTIVE: Patient seen and examined OBJECTIVE: Vital Signs Period Temp Pulse Resp BP Sys/[place] Pulse Ox Last 24 Hr 97.8 F-98.6 F 71-89 16-18 125-165/52-90 99-100 in no distress Sitting in her bed, Has 4/5 strength in the R upper and lower EXT a, 3/5 in the hand A&oX3 Speech has no significant aphasia and her speech has much improved Abd:BS+ NT/ND Laboratory Results - last 24 hr 03/23/18 03/23/18 03/24/18 16:48 21:30 05:30 WBC RBC Hgb Hct MCV MCH MCHC RDW Plt Count MPV Sodium Potassium Chloride Carbon Dioxide Anion Gap BUN Creatinine Creat Clearance w eGFR POC Glucometer 95 133 70 Random Glucose Calcium Phosphorus Magnesium Total Bilirubin AST ALT Alkaline Phosphatase Total Protein Albumin Valproic Acid 03/24/18 03/24/18 03/24/18 06:30 06:55 08:30 WBC RBC Hgb Hct MCV MCH MCHC RDW Plt Count MPV Sodium 140 Potassium 3.9 Chloride 104 Carbon Dioxide 28 Anion Gap 8 BUN 30 H Creatinine 6.8 H Creat Clearance w eGFR 6.40 POC Glucometer 94 Random Glucose 78 Calcium 8.7 Phosphorus 3.8 Magnesium 2.1 Total Bilirubin 0.4 AST 33 ALT 24 Alkaline Phosphatase 62 Total Protein 6.1 L Albumin 3.3 L Valproic Acid 49.8 L 03/24/18 03/24/18 08:30 11:21 WBC 5.7 RBC 2.94 L Hgb 10.4 L Hct 30.2 L MCV 102.9 H MCH 35.4 H MCHC 34.4 RDW 14.9 Plt Count 142 MPV 9.1 Sodium Potassium Chloride Carbon Dioxide Anion Gap BUN Creatinine Creat Clearance w eGFR POC Glucometer 72 Random Glucose Calcium Phosphorus Magnesium Total Bilirubin AST ALT Alkaline Phosphatase Total Protein Albumin Valproic Acid Active Medications Generic Name Dose Route Start Last Admin Trade Name Freq PRN Reason Stop Dose Admin Amlodipine Besylate 10 mg 03/24/18 10:00 03/24/18 09:45 Norvasc - PO 10 mg DAILY [facility] Administration Aspirin 325 mg 03/24/18 10:00 03/24/18 09:45 Asa - PO 325 mg DAILY [facility] Administration Atorvastatin Calcium 80 mg 03/23/18 22:00 03/23/18 21:32 Lipitor - PO 80 mg HS [facility] Administration Carvedilol 25 mg 03/23/18 22:00 03/24/18 09:45 Coreg - PO 25 mg BID [facility] Administration Clopidogrel Bisulfate 75 mg 03/24/18 10:00 03/24/18 09:45 Plavix - PO 75 mg DAILY [facility] Administration Heparin Sodium (Porcine) 5,000 unit 03/22/18 22:00 03/24/18 06:21 Heparin - SQ Not Given TID [facility] Sodium Chloride 250 mls @ 3,000 mls/hr 03/22/18 15:44 Normal Saline - IV 03/23/18 15:44 PRN PRN Hypotension during Dialysis Sodium Chloride 1,000 mls @ 42 mls/hr 03/22/18 17:41 03/23/18 16:49 Normal Saline - IV 42 mls/hr ASDIR [facility] Administration Insulin Aspart 1 vial 03/22/18 22:00 03/24/18 11:25 Novolog Vial Sliding Scale - SQ Not Given ACHS [facility] Protocol Lorazepam 2 mg 03/22/18 17:41 Ativan Injection - IVPUSH Q6H PRN AGITATION Sevelamer Carbonate 800 mg 03/23/18 16:30 03/24/18 11:25 Renvela - PO 800 mg TIDAC [facility] Administration Valproate Sodium 750 mg 03/22/18 22:00 03/24/18 09:45 Depacon Injection - IVPB 750 mg BID [facility] Administration ASSESSMENT/PLAN: AMS: at this time at her baseline , pending report of the EEG, she states that she will get MRI as O/P open MRI, is on her new dpokate dose and pending final neuro recs. ESRD: Being followed by nephro and is getting her HD,and sevelemir CVA: she is on ASA. Statin,plavix HTN: On amlodipine fc DIET: renal/ cardiac/ Diabetic DB: on insulin sliding scale Dispo: home on Monday pending neuro recs Visit type - Emergency Visit Emergency Visit: No - New Patient This patient is new to me today: No - Critical Care Critical Care patient: No - Discharge Referral Referred to [facility] Med P.C.: No
--- NOTE | 2018-03-24 15:48 | PN ---
Progress Note, Physician History of Present Illness: events noted and chart reviewed Seen on telemetry Much more attentive and talkative No report of any seizure-like activity still on the Depakote IV will switch to by mouth. Mild anemia noted. - Current Medication List Current Medications: Active Medications Amlodipine Besylate (Norvasc -) 10 mg PO DAILY [facility] Last Admin: 03/24/18 09:45 Dose: 10 mg Aspirin (Asa -) 325 mg PO DAILY [facility] Last Admin: 03/24/18 09:45 Dose: 325 mg Atorvastatin Calcium (Lipitor -) 80 mg PO HS [facility] Last Admin: 03/23/18 21:32 Dose: 80 mg Carvedilol (Coreg -) 25 mg PO BID [facility] Last Admin: 03/24/18 09:45 Dose: 25 mg Clopidogrel Bisulfate (Plavix -) 75 mg PO DAILY [facility] Last Admin: 03/24/18 09:45 Dose: 75 mg Heparin Sodium (Porcine) (Heparin -) 5,000 unit SQ TID [facility] Last Admin: 03/24/18 14:09 Dose: Not Given Sodium Chloride (Normal Saline -) 250 mls @ 3,000 mls/hr IV PRN PRN PRN Reason: Hypotension during Dialysis Stop: 03/23/18 15:44 Sodium Chloride (Normal Saline -) 1,000 mls @ 42 mls/hr IV ASDIR [facility] Last Admin: 03/23/18 16:49 Dose: 42 mls/hr Insulin Aspart (Novolog Vial Sliding Scale -) 1 vial SQ ACHS [facility]; Protocol Last Admin: 03/24/18 11:25 Dose: Not Given Lorazepam (Ativan Injection -) 2 mg IVPUSH Q6H PRN PRN Reason: AGITATION Sevelamer Carbonate (Renvela -) 800 mg PO TIDAC [facility] Last Admin: 03/24/18 11:25 Dose: 800 mg Valproate Sodium (Depakene -) 750 mg PO BID [facility] - Objective Vital Signs: Vital Signs Temperature 98.3 F 03/24/18 13:25 Pulse Rate 82 03/24/18 13:25 Respiratory Rate 15 03/24/18 13:25 Blood Pressure 131/72 03/24/18 13:25 O2 Sat by Pulse Oximetry (%) 100 03/24/18 09:34 Constitutional: Yes: Well Nourished Eyes: Yes: WNL Neurological: Yes: Alert, Oriented, Babinski negative, Dysarthria, Facial Droop ...Motor Strength: WNL Labs: CBC, BMP 03/24/18 08:30 03/24/18 08:30 INR, PTT INR 1.07 (0.83-1.09) 03/21/18 15:45 Problem List - Problems (1) Altered mental status Assessment/Plan: questionable partial seizure with postictal confusion Change Depakote to by mouth. Depakote level tomorrow. Seizure precautions Ativan when necessary Plan discharge home with follow up with neurology as an outpatient. Code(s): R41.82 - ALTERED MENTAL STATUS, UNSPECIFIED
[2018-03-24] MEDS ORDERED: SODIUM CHLORIDE 250 ML IV PRN (15:59)
--- NOTE | 2018-03-24 15:59 | PN ---
Progress Note, Physician History of Present Illness: Pt seen and examined at bedside. She is more awake today. - Current Medication List Current Medications: Active Medications Amlodipine Besylate (Norvasc -) 10 mg PO DAILY [facility] Last Admin: 03/24/18 09:45 Dose: 10 mg Aspirin (Asa -) 325 mg PO DAILY [facility] Last Admin: 03/24/18 09:45 Dose: 325 mg Atorvastatin Calcium (Lipitor -) 80 mg PO HS [facility] Last Admin: 03/23/18 21:32 Dose: 80 mg Carvedilol (Coreg -) 25 mg PO BID [facility] Last Admin: 03/24/18 09:45 Dose: 25 mg Clopidogrel Bisulfate (Plavix -) 75 mg PO DAILY [facility] Last Admin: 03/24/18 09:45 Dose: 75 mg Heparin Sodium (Porcine) (Heparin -) 5,000 unit SQ TID [facility] Last Admin: 03/24/18 14:09 Dose: Not Given Sodium Chloride (Normal Saline -) 250 mls @ 3,000 mls/hr IV PRN PRN PRN Reason: Hypotension during Dialysis Stop: 03/23/18 15:44 Sodium Chloride (Normal Saline -) 1,000 mls @ 42 mls/hr IV ASDIR [facility] Last Admin: 03/23/18 16:49 Dose: 42 mls/hr Insulin Aspart (Novolog Vial Sliding Scale -) 1 vial SQ [facility]; Protocol Last Admin: 03/24/18 11:25 Dose: Not Given Lorazepam (Ativan Injection -) 2 mg IVPUSH Q6H PRN PRN Reason: AGITATION Sevelamer Carbonate (Renvela -) 800 mg PO TIDAC [facility] Last Admin: 03/24/18 11:25 Dose: 800 mg Valproate Sodium (Depakene -) 750 mg PO BID [facility] - Objective Vital Signs: Vital Signs Temperature 98.3 F 03/24/18 13:25 Pulse Rate 82 03/24/18 13:25 Respiratory Rate 15 03/24/18 13:25 Blood Pressure 131/72 03/24/18 13:25 O2 Sat by Pulse Oximetry (%) 100 03/24/18 09:34 Constitutional: Yes: Calm Eyes: Yes: Conjunctiva Clear HENT: Yes: Atraumatic Cardiovascular: Yes: S1, S2 Respiratory: Yes: CTA Bilaterally Gastrointestinal: Yes: Soft, Abdomen, Obese Musculoskeletal: Yes: Muscle Weakness Edema: No Neurological: Yes: Pre-Existing Deficit Psychiatric: Yes: Oriented Labs: CBC, BMP 03/24/18 08:30 03/24/18 08:30 INR, PTT INR 1.07 (0.83-1.09) 03/21/18 15:45 Problem List - Problems (1) Altered mental status Code(s): R41.82 - ALTERED MENTAL STATUS, UNSPECIFIED Assessment/Plan Current Medications Generic Name Dose Route Start Last Admin Trade Name Freq PRN Reason Stop Dose Admin Amlodipine Besylate 10 mg 03/24/18 10:00 03/24/18 09:45 Norvasc - PO 10 mg DAILY [facility] Administration Aspirin 325 mg 03/24/18 10:00 03/24/18 09:45 Asa - PO 325 mg DAILY [facility] Administration Atorvastatin Calcium 80 mg 03/23/18 22:00 03/23/18 21:32 Lipitor - PO 80 mg HS [facility] Administration Carvedilol 25 mg 03/23/18 22:00 03/24/18 09:45 Coreg - PO 25 mg BID [facility] Administration Clopidogrel Bisulfate 75 mg 03/24/18 10:00 03/24/18 09:45 Plavix - PO 75 mg DAILY [facility] Administration Heparin Sodium (Porcine) 5,000 unit 03/22/18 22:00 03/24/18 14:09 Heparin - SQ Not Given TID [facility] Sodium Chloride 250 mls @ 3,000 mls/hr 03/22/18 15:44 Normal Saline - IV 03/23/18 15:44 PRN PRN Hypotension during Dialysis Sodium Chloride 1,000 mls @ 42 mls/hr 03/22/18 17:41 03/23/18 16:49 Normal Saline - IV 42 mls/hr ASDIR [facility] Administration Insulin Aspart 1 vial 03/22/18 22:00 03/24/18 11:25 Novolog Vial Sliding Scale - SQ Not Given ACHS [facility] Protocol Lorazepam 2 mg 03/22/18 17:41 Ativan Injection - IVPUSH Q6H PRN AGITATION Sevelamer Carbonate 800 mg 03/23/18 16:30 03/24/18 11:25 Renvela - PO 800 mg TIDAC [facility] Administration Valproate Sodium 750 mg 03/24/18 22:00 Depakene - PO BID [facility] Impression 1. ESRD 2. r/o CVA 3. DM 4. HLD 5. HTN 6. anemia 7. anxiety 8. seizure Plan - pt tolerated HD yesterday - HD tomorrow - neuro follow up - 4 hrs, 2 k bath, epogen 1000, hectorol 3.5, 15 gaug 1 1/4 length - renal diabetic diet - monitor bp
--- NOTE | 2018-03-24 18:16 | DS ---
Physical Exam: SUBJECTIVE: Patient seen and examined OBJECTIVE: Vital Signs Period Temp Pulse Resp BP Sys/[place] Pulse Ox Last 24 Hr 97.9 F-98.6 F 71-89 15-18 125-160/52-85 99-100 PHYSICAL EXAM She is a morbidly obese F with no distress She states that she does not want to get HD here and wants to get it at her Hd center if possible [facility] Abd: BS+ nt/nd EXT: no EDEMA avf wnl. LABS Laboratory Results - last 24 hr 03/24/18 03/24/18 03/24/18 06:55 08:30 08:30 WBC 5.7 RBC 2.94 L Hgb 10.4 L Hct 30.2 L MCV 102.9 H MCH 35.4 H MCHC 34.4 RDW 14.9 Plt Count 142 MPV 9.1 Sodium 140 Potassium 3.9 Chloride 104 Carbon Dioxide 28 Anion Gap 8 BUN 30 H Creatinine 6.8 H Creat Clearance w eGFR 6.40 POC Glucometer 94 Random Glucose 78 Calcium 8.7 Phosphorus 3.8 Magnesium 2.1 Total Bilirubin 0.4 AST 33 ALT 24 Alkaline Phosphatase 62 Total Protein 6.1 L Albumin 3.3 L Valproic Acid HOSPITAL COURSE: Date of Admission:03/21/18 Date of Discharge: 03/24/18 52 yo female with pmh of ESRD (dialysis on --), previous stroke with right hemiparesis, TIA, seizure disorder, HTN, asthma, migraines, IDDM, that was brought to the hospital by ambulance from dialysis center. Earlier today while receiving HD she became unresponsive. She underwent evaluation for cardiac etiology and cardiac monitoring for 72 hours was negative for any significant arrythmia, She also had EEG done and per neurology recs her AED meds were changed to depokate with DC of partial seizure. on the DC date she refused to take her valproate and the medication level was not drown. She states that she wants to follow up with her neurologist as O/P and adjust the dose with him. She clearly understands the risks of not being on optimal medication and she is willing to take the risk related to it at this time. Will DC her to get her HD at her facility as she is refusing to get it done here at this time. unless we can not rearrange the HD hour Her new medication: Valproic acid 750mg twice a day Minutes to complete discharge: 45 Discharge Summary Reason For Visit: AMS Current Active Problems Altered mental status (Acute) Post-ictal state (Acute) Condition: Stable - Instructions Referrals: Sebastián Parr MD [Primary Care Provider] - - Home Medications Comprehensive Discharge Medication List: Ambulatory Orders Albuterol Sulfate Inhaler - [Ventolin HFA Inhaler -] 2 inh PO BID PRN 08/03/16 Atorvastatin Ca [Lipitor] 80 mg PO HS 08/03/16 Furosemide [Lasix] 40 mg PO TUTH 08/03/16 Sennosides [Senna] 2 tab PO DAILY 08/03/16 clonazePAM [Klonopin -] 0.5 mg PO BID 08/03/16 Clopidogrel Bisulfate [Plavix -] 75 mg PO DAILY 08/26/16 Aspirin Coated [Ecotrin -] 325 mg PO DAILY 11/07/16 Bupropion HCl [Wellbutrin Xl -] 300 mg PO DAILY #30 tab.sr.24h 12/22/16 Topiramate [Topamax] 50 mg PO BID 01/02/17 Amlodipine Besylate [Norvasc -] 10 mg PO DAILY #30 tablet 01/09/17 Insulin Sliding Scale [Novolog Vial Sliding Scale -] See Protocol SQ ACHS #30 pen 01/09/17 Carvedilol [Coreg] 25 mg PO BID #60 tablet 01/11/17 Insulin Glargine,Hum.rec.anlog [Lantus (10mL VIAL) -] 7 units SQ HS #1 vial Cetirizine HCl [Zyrtec -] 10 mg PO DAILY 11/09/17 Hydralazine HCl 50 mg PO TUTH 03/22/18 Linaclotide [Linzess] 145 mcg PO DAILY 03/22/18 Polyethylene Glycol 3350 [Miralax (For Daily Use) -] 17 gm PO DAILY 03/22/18 Sevelamer Carbonate [Renvela] 800 mg PO AC 03/22/18 levETIRAcetam [Keppra -] 500 mg PO BID 03/22/18 This patient is new to me today: No Emergency Visit: No Critical Care patient: No - Discharge Referral Referred to [facility] No
[2018-03-24] MEDS: ATORVASTATIN CA 80 MG TABLET (FP) PO SCH (21:33)
[2018-03-24] MEDS: VALPROATE SODIUM 250 MG/5 ML UNIT DOSE CUP PO SCH ×2 (22:19→22:25)
[2018-03-24] MEDS: MELATONIN 5 MG TABLETS PO PRN (22:19)
[2018-03-25] MEDS: SEVELAMER CARBONATE 800 MG TAB (FP) PO SCH ×3 (06:46→16:39)
[2018-03-25] MEDS: HEPARIN NA (PORCINE) 5,000 UNITS/ML 1ML VIAL SQ SCH ×3 (06:46→21:25)
[2018-03-25] MEDS: INSULIN SLIDING SCALE (NOVOLOG) 1 VIAL SQ SCH ×4 (06:47→21:25)
[2018-03-25 07:08] LABS: HBSAG SCREEN Negative (Negative); HEP B CORE AB, TOT Negative (Negative)
[2018-03-25 08:30] LABS: HEMATOCRIT 29.9 % (32.4-45.2); HEMOGLOBIN 9.8 GM/dL (10.7-15.3); MCH 33.9 pg (25.7-33.7); MCHC 32.6 g/dl (32.0-36.0); MEAN CELL VOLUME 103.8 fl (80-96); PLATELET COUNT 128 K/MM3 (134-434); RBC 2.88 M/mm3 (3.60-5.2); RDW 14.3 % (11.6-15.6); WHITE BLOOD COUNT 5.3 K/mm3 (4.0-10.0)
--- NOTE | 2018-03-25 11:09 | PN ---
Physical Exam: SUBJECTIVE: Patient seen and examined OBJECTIVE: Vital Signs Period Temp Pulse Resp BP Sys/[place] Pulse Ox Last 24 Hr 97.8 F-98.5 F 71-82 15-20 131-165/71-85 98-100 GENERAL: The patient is awake, alert, and fully oriented, in no acute distress.morbidly obese HEAD: Normal with no signs of trauma. EYES: PERRL, extraocular movements intact, sclera anicteric, conjunctiva clear. No ptosis. ENT: Ears normal, nares patent, oropharynx clear without exudates, moist mucous membranes. NECK: Trachea midline, full range of motion, supple. LUNGS: Breath sounds equal, clear to auscultation bilaterally, no wheezes, no crackles, no accessory muscle use. HEART: Regular rate and rhythm, S1, S2 + murmur from the AVF ABDOMEN: Soft, nontender, nondistended, normoactive bowel sounds, no guarding, no rebound, no hepatosplenomegaly, no masses. EXTREMITIES: 2+ pulses, warm, well-perfused, no edema. NEUROLOGICAL: Cranial nerves II through XII grossly intact. Normal speech, gait not observed. PSYCH: Normal mood, normal affect. SKIN: Warm, dry, normal turgor, no rashes or lesions noted Laboratory Results - last 24 hr 03/23/18 03/24/18 03/24/18 19:00 08:30 11:21 WBC RBC Hgb Hct MCV MCH MCHC RDW Plt Count MPV Sodium 140 Potassium 3.9 Chloride 104 Carbon Dioxide 28 Anion Gap 8 BUN 30 H Creatinine 6.8 H Creat Clearance w eGFR 6.40 POC Glucometer 72 Random Glucose 78 Calcium 8.7 Phosphorus 3.8 Magnesium 2.1 Total Bilirubin 0.4 AST 33 ALT 24 Alkaline Phosphatase 62 Total Protein 6.1 L Albumin 3.3 L Hepatitis A Ab Total Negative Hep Bs Antigen Negative Hep Bs Antibody Reactive Hep B Core Total Ab Negative 03/24/18 03/24/18 03/25/18 17:08 22:17 06:41 WBC RBC Hgb Hct MCV MCH MCHC RDW Plt Count MPV Sodium Potassium Chloride Carbon Dioxide Anion Gap BUN Creatinine Creat Clearance w eGFR POC Glucometer 103 175 65 Random Glucose Calcium Phosphorus Magnesium Total Bilirubin AST ALT Alkaline Phosphatase Total Protein Albumin Hepatitis A Ab Total Hep Bs Antigen Hep Bs Antibody Hep B Core Total Ab 03/25/18 08:00 WBC 5.3 RBC 2.88 L Hgb 9.8 L Hct 29.9 L MCV 103.8 H MCH 33.9 H MCHC 32.6 RDW 14.3 Plt Count 128 L MPV 9.0 Sodium Potassium Chloride Carbon Dioxide Anion Gap BUN Creatinine Creat Clearance w eGFR POC Glucometer Random Glucose Calcium Phosphorus Magnesium Total Bilirubin AST ALT Alkaline Phosphatase Total Protein Albumin Hepatitis A Ab Total Hep Bs Antigen Hep Bs Antibody Hep B Core Total Ab Active Medications Generic Name Dose Route Start Last Admin Trade Name Freq PRN Reason Stop Dose Admin Amlodipine Besylate 10 mg 03/24/18 10:00 03/24/18 09:45 Norvasc - PO 10 mg DAILY [facility] Administration Aspirin 325 mg 03/24/18 10:00 03/24/18 09:45 Asa - PO 325 mg DAILY [facility] Administration Atorvastatin Calcium 80 mg 03/23/18 22:00 03/24/18 21:33 Lipitor - PO 80 mg HS [facility] Administration Carvedilol 25 mg 03/23/18 22:00 03/24/18 21:34 Coreg - PO 25 mg BID [facility] Administration Clopidogrel Bisulfate 75 mg 03/24/18 10:00 03/24/18 09:45 Plavix - PO 75 mg DAILY [facility] Administration Heparin Sodium (Porcine) 5,000 unit 03/22/18 22:00 03/25/18 06:46 Heparin - SQ Not Given TID [facility] Sodium Chloride 250 mls @ 3,000 mls/hr 03/22/18 15:44 Normal Saline - IV 03/23/18 15:44 PRN PRN Hypotension during Dialysis Sodium Chloride 1,000 mls @ 42 mls/hr 03/22/18 17:41 03/23/18 16:49 Normal Saline - IV 42 mls/hr ASDIR [facility] Administration Sodium Chloride 250 mls @ 3,000 mls/hr 03/24/18 15:59 Normal Saline - IV 03/25/18 15:59 PRN PRN Hypotension during Dialysis Insulin Aspart 1 vial 03/22/18 22:00 03/25/18 06:47 Novolog Vial Sliding Scale - SQ Not Given ACHS [facility] Protocol Lorazepam 2 mg 03/22/18 17:41 Ativan Injection - IVPUSH Q6H PRN AGITATION Melatonin 5 mg 03/24/18 22:00 03/24/18 22:19 Melatonin PO 5 mg HS PRN Administration INSOMNIA Sevelamer Carbonate 800 mg 03/23/18 16:30 03/25/18 06:46 Renvela - PO 800 mg TIDAC [facility] Administration Valproic Acid 750 mg 03/25/18 11:00 Depakene - PO BID [facility] ASSESSMENT/PLAN: MS: at this time at her baseline , partial seizure, she states that she will get MRI as O/P open MRI, is on her new dpokate dose she didnt take her medication last night and this morning levels were not sent, will recheck in the afternoon. ESRD: Being followed by nephro and is getting her HD,and sevelemir CVA: she is on ASA. Statin,plavix HTN: On amlodipine fc DIET: renal/ cardiac/ Diabetic DB: on insulin sliding scale Dispo: home on Monday pending neuro recs, she can not be DCed today as she has 24 h service and can not be resumed today. Visit type - Emergency Visit Emergency Visit: No - New Patient This patient is new to me today: No - Critical Care Critical Care patient: No - Discharge Referral Referred to [facility] No
--- NOTE | 2018-03-25 13:02 | PN ---
Progress Note, Physician History of Present Illness: Pt seen and examined at bedside. SHe is tolerating HD. She denies shortness of breath. - Current Medication List Current Medications: Active Medications Amlodipine Besylate (Norvasc -) 10 mg PO DAILY [facility] Last Admin: 03/24/18 09:45 Dose: 10 mg Aspirin (Asa -) 325 mg PO DAILY [facility] Last Admin: 03/24/18 09:45 Dose: 325 mg Atorvastatin Calcium (Lipitor -) 80 mg PO HS [facility] Last Admin: 03/24/18 21:33 Dose: 80 mg Carvedilol (Coreg -) 25 mg PO BID [facility] Last Admin: 03/24/18 21:34 Dose: 25 mg Clopidogrel Bisulfate (Plavix -) 75 mg PO DAILY [facility] Last Admin: 03/24/18 09:45 Dose: 75 mg Heparin Sodium (Porcine) (Heparin -) 5,000 unit SQ TID [facility] Last Admin: 03/25/18 06:46 Dose: Not Given Sodium Chloride (Normal Saline -) 250 mls @ 3,000 mls/hr IV PRN PRN PRN Reason: Hypotension during Dialysis Stop: 03/23/18 15:44 Sodium Chloride (Normal Saline -) 1,000 mls @ 42 mls/hr IV ASDIR [facility] Last Admin: 03/23/18 16:49 Dose: 42 mls/hr Sodium Chloride (Normal Saline -) 250 mls @ 3,000 mls/hr IV PRN PRN PRN Reason: Hypotension during Dialysis Stop: 03/25/18 15:59 Insulin Aspart (Novolog Vial Sliding Scale -) 1 vial SQ ACHS [facility]; Protocol Last Admin: 03/25/18 06:47 Dose: Not Given Lorazepam (Ativan Injection -) 2 mg IVPUSH Q6H PRN PRN Reason: AGITATION Melatonin (Melatonin) 5 mg PO HS PRN PRN Reason: INSOMNIA Last Admin: 03/24/18 22:19 Dose: 5 mg Sevelamer Carbonate (Renvela -) 800 mg PO TIDAC [facility] Last Admin: 03/25/18 06:46 Dose: 800 mg Valproic Acid (Depakene -) 750 mg PO BID [facility] - Objective Vital Signs: Vital Signs Temperature 98.4 F 03/25/18 11:25 Pulse Rate 80 03/25/18 12:30 Respiratory Rate 18 03/25/18 12:30 Blood Pressure 152/92 03/25/18 12:30 O2 Sat by Pulse Oximetry (%) 100 03/25/18 08:43 Constitutional: Yes: Calm Eyes: Yes: Conjunctiva Clear HENT: Yes: Atraumatic Neck: Yes: Supple Cardiovascular: Yes: S1, S2 Respiratory: Yes: CTA Bilaterally Gastrointestinal: Yes: Soft, Abdomen, Obese Genitourinary: Yes: WNL Musculoskeletal: Yes: WNL Edema: LLE: Trace, RLE: Trace Neurological: Yes: Pre-Existing Deficit Psychiatric: Yes: Oriented Labs: CBC, BMP 03/25/18 08:00 03/24/18 08:30 INR, PTT INR 1.07 (0.83-1.09) 03/21/18 15:45 Problem List - Problems (1) Altered mental status Code(s): R41.82 - ALTERED MENTAL STATUS, UNSPECIFIED Assessment/Plan Current Medications Generic Name Dose Route Start Last Admin Trade Name Freq PRN Reason Stop Dose Admin Amlodipine Besylate 10 mg 03/24/18 10:00 03/24/18 09:45 Norvasc - PO 10 mg DAILY [facility] Administration Aspirin 325 mg 03/24/18 10:00 03/24/18 09:45 Asa - PO 325 mg DAILY [facility] Administration Atorvastatin Calcium 80 mg 03/23/18 22:00 03/24/18 21:33 Lipitor - PO 80 mg HS [facility] Administration Carvedilol 25 mg 03/23/18 22:00 03/24/18 21:34 Coreg - PO 25 mg BID [facility] Administration Clopidogrel Bisulfate 75 mg 03/24/18 10:00 03/24/18 09:45 Plavix - PO 75 mg DAILY [facility] Administration Heparin Sodium (Porcine) 5,000 unit 03/22/18 22:00 03/25/18 06:46 Heparin - SQ Not Given TID [facility] Sodium Chloride 250 mls @ 3,000 mls/hr 03/22/18 15:44 Normal Saline - IV 03/23/18 15:44 PRN PRN Hypotension during Dialysis Sodium Chloride 1,000 mls @ 42 mls/hr 03/22/18 17:41 03/23/18 16:49 Normal Saline - IV 42 mls/hr ASDIR [facility] Administration Sodium Chloride 250 mls @ 3,000 mls/hr 03/24/18 15:59 Normal Saline - IV 03/25/18 15:59 PRN PRN Hypotension during Dialysis Insulin Aspart 1 vial 03/22/18 22:00 03/25/18 06:47 Novolog Vial Sliding Scale - SQ Not Given ACHS [facility] Protocol Lorazepam 2 mg 03/22/18 17:41 Ativan Injection - IVPUSH Q6H PRN AGITATION Melatonin 5 mg 03/24/18 22:00 03/24/18 22:19 Melatonin PO 5 mg HS PRN Administration INSOMNIA Sevelamer Carbonate 800 mg 03/23/18 16:30 03/25/18 06:46 Renvela - PO 800 mg TIDAC [facility] Administration Valproic Acid 750 mg 03/25/18 11:00 Depakene - PO BID [facility] Impression 1. ESRD 2. r/o CVA 3. DM 4. HLD 5. HTN 6. anemia 7. anxiety 8. seizure Plan - HD today - pt has HD set up as outpt - will need neuro follow up after discharge - pt requesting less time on HD - 4 hrs, 2 k bath, epogen 1000, hectorol 3.5, 15 gaug 1 1/4 length - renal diabetic diet - monitor bp
[2018-03-25] MEDS: VALPROIC ACID 250 MG CAPSULE PO SCH ×2 (15:27→21:25)
[2018-03-25] MEDS: CLOPIDOGREL BISULFATE 75 MG TABLET (FP) PO SCH (15:28)
[2018-03-25] MEDS: ASPIRIN 325 MG TABLET PO SCH (15:28)
[2018-03-25] MEDS: amLODIPine BESYLATE 10 MG TABLET (FP) PO SCH (15:28)
[2018-03-25] MEDS: CARVEDILOL 25 MG TABLET (FP) PO SCH ×2 (15:28→21:25)
[2018-03-25] MEDS ORDERED: PT OWN MED DRAWER 7, Y5N ONE (21:05)
[2018-03-25] MEDS: MELATONIN 5 MG TABLETS PO PRN (21:25)
[2018-03-25] MEDS: ATORVASTATIN CA 80 MG TABLET (FP) PO SCH (21:25)
[2018-03-26] MEDS ORDERED: ACETAMINOPHEN 325 MG TABLET (FP) PO ONE (02:40)
[2018-03-26] MEDS ORDERED: ACETAMINOPHEN 325 MG TABLET (FP) ONE (02:59)
[2018-03-26] MEDS: INSULIN SLIDING SCALE (NOVOLOG) 1 VIAL SQ SCH ×2 (06:16→12:31)
[2018-03-26] MEDS: HEPARIN NA (PORCINE) 5,000 UNITS/ML 1ML VIAL SQ SCH (06:16)
[2018-03-26] MEDS: SEVELAMER CARBONATE 800 MG TAB (FP) PO SCH ×2 (06:30→12:31)
[2018-03-26] MEDS ORDERED: PT OWN MED DRAWER 7, Y5N ONE (08:55)
[2018-03-26] MEDS: CARVEDILOL 25 MG TABLET (FP) PO SCH (09:06)
[2018-03-26] MEDS: ASPIRIN 325 MG TABLET PO SCH (09:06)
[2018-03-26] MEDS: amLODIPine BESYLATE 10 MG TABLET (FP) PO SCH (09:06)
[2018-03-26] MEDS: CLOPIDOGREL BISULFATE 75 MG TABLET (FP) PO SCH (09:06)
[2018-03-26] MEDS: VALPROIC ACID 250 MG CAPSULE PO SCH (09:11)
[2018-03-26 11:31] VITALS: BP 158/80; PULSE 78; TEMP 98
--- NOTE | 2018-03-26 16:33 | EKG ---
Test Reason : Blood Pressure : / mmHG Vent. Rate : 076 BPM Atrial Rate : 076 BPM P-R Int : 176 ms QRS Dur : 080 ms QT Int : 442 ms P-R-T Axes : 045 022 030 degrees QTc Int : 497 ms NORMAL SINUS RHYTHM LOW VOLTAGE QRS BORDERLINE ECG WHEN COMPARED WITH ECG OF 21-MAR-2018 17:10, NO SIGNIFICANT CHANGE WAS FOUND Confirmed by RUPETRO COON MD ([id number]) on 03/26/2018 4:32:59 PM Referred By: Confirmed By:RUPERTO COON MD
== END 2018-03-26 14:40 | disposition home health service (06) | DRG 100 ==
LOC: JER 15:07 → JERBED 21:11 → JICU 03-22 01:36 → J4W 03-22 17:20
PROVIDERS: ADMIT Internal Medicine; ATTEND Internal Medicine
PROC: 5A1D70Z Performance of Urinary Filtration, Intermittent, Less than 6 Hours Per Day (ICD-10-PCS; principal; 2018-03-25)
DX: G40.89 Other seizures (principal); N18.6 End stage renal disease; I12.0 Hypertensive chronic kidney disease with stage 5 chronic kidney disease or end stage renal disease; N39.0 Urinary tract infection, site not specified; I69.351 Hemiplegia and hemiparesis following cerebral infarction affecting right dominant side; E11.22 Type 2 diabetes mellitus with diabetic chronic kidney disease; Z99.2 Dependence on renal dialysis; E11.319 Type 2 diabetes mellitus with unspecified diabetic retinopathy without macular edema; E66.9 Obesity, unspecified; R41.82 Altered mental status, unspecified; Z79.4 Long term (current) use of insulin; I25.10 Atherosclerotic heart disease of native coronary artery without angina pectoris; G43.909 Migraine, unspecified, not intractable, without status migrainosus; E87.6 Hypokalemia; E78.5 Hyperlipidemia, unspecified; F41.8 Other specified anxiety disorders; D64.9 Anemia, unspecified; Z68.39 Body mass index [BMI] 39.0-39.9, adult
CPT/HCPCS: 36415; 70450-TC; 71045-TC-FY; 80048; 80053; 80164; 80307; 81003; 81015; 82140; 82465; 82550; 82553; 82607; 82962; 83036; 83090; 83605; 83718; 83721; 83735; 84100; 84146; 84478; 84484; 84703; 85025; 85027; 85610; 86704; 86706; 86708; 86850; 86900; 86901; 87040; 87086; 87340; 93005; 93010; 93990-TC; 95816; 97162-GP; 99283-25; G0480; J1644; J7030

== ENCOUNTER 2018-03-28 17:19 | Inpatient (IN) | payer OTHER ==
[2018-03-28 17:49] VITALS: BMI 38.0
--- NOTE | 2018-03-28 18:25 | PDOC ---
History of Present Illness - General Chief Complaint: Weakness Stated Complaint: WEAKNESS Time Seen by Provider: 03/28/18 18:24 - History of Present Illness Initial Comments: 03/28/18 18:50 Ms. Frankel is a 52 yo female w/ pmh of seizures, HTN, TIA/Strokes, ESRD (M/W/F dialysis), IDDM who presents for evaluation of worsening weakness and frequent falls. Mother who is with her reports she was recently discharged after admission 03/21-03/25 for seizure during dialysis, patient has been very weak since discharge and has fallen several times and is unable to ambulate. Patient has a home health aide however they are unable to assist her given body habitus. Patient reports being evaluated this AM at outside hospital for same process however reports she was discharged over difficulty getting her on dialysis list. Patient received dialysis session today. Past History - Past Medical History Allergies/Adverse Reactions: Allergies Allergy/AdvReac Type Severity Reaction Status Date / Time amoxicillin [Amoxicillin] Allergy Severe Itching Verified 03/28/18 17:37 hydrocodone bitartrate Allergy Severe Hives,ITCHI Verified 03/28/18 17:37 [From Vicodin] NG morphine Allergy Severe Itching Verified 03/28/18 17:37 neomycin [Neomycin] Allergy Severe Swelling Verified 03/28/18 17:37 oxycodone HCl [From Percocet] Allergy Severe Itching,HIV Verified 03/28/18 17:37 ES rofecoxib [From Vioxx] Allergy Severe Hives Verified 03/28/18 17:37 Sulfa (Sulfonamide Allergy Severe sclera Verified 03/28/18 17:37 Antibiotics) reddened,ITCHING tramadol Allergy Severe Vomiting Verified 03/28/18 17:37 tomato Allergy Verified 03/28/18 17:37 grapefruit [Grapefruit] AdvReac Severe CAN'T TAKE Verified 03/28/18 17:37 BECAUSE OF MEDICATIONS vancomycin AdvReac Mild red man Verified 03/28/18 17:37 syndrome Heparin Analogues AdvReac Unknown Verified 03/28/18 17:37 [Heparin Agents] flu shot Allergy Severe GETS FLU Uncoded 03/28/18 17:37 SYMPTOMS grape juice AdvReac Severe Uncoded 03/28/18 17:37 Home Medications: Ambulatory Orders Albuterol Sulfate Inhaler - [Ventolin HFA Inhaler -] 2 inh PO BID PRN 08/03/16 Atorvastatin Ca [Lipitor] 80 mg PO HS 08/03/16 Furosemide [Lasix] 40 mg PO TUTH 08/03/16 Sennosides [Senna] 2 tab PO DAILY 08/03/16 clonazePAM [Klonopin -] 0.5 mg PO BID 08/03/16 Clopidogrel Bisulfate [Plavix -] 75 mg PO DAILY 08/26/16 Aspirin Coated [Ecotrin -] 325 mg PO DAILY 11/07/16 Amlodipine Besylate [Norvasc -] 10 mg PO DAILY #30 tablet 01/09/17 Insulin Sliding Scale [Novolog Vial Sliding Scale -] See Protocol SQ ACHS #30 pen 01/09/17 Carvedilol [Coreg] 25 mg PO BID #60 tablet 01/11/17 Insulin Glargine,Hum.rec.anlog [Lantus (10mL VIAL) -] 7 units SQ HS #1 vial Cetirizine HCl [Zyrtec -] 10 mg PO DAILY 11/09/17 Hydralazine HCl 50 mg PO TUTH 03/22/18 Linaclotide [Linzess] 145 mcg PO DAILY 03/22/18 Polyethylene Glycol 3350 [Miralax 119 gm Btl -] 17 gm PO DAILY 03/22/18 Sevelamer Carbonate [Renvela -] 800 mg PO AC 03/22/18 Insulin Sliding Scale [Novolog Vial Sliding Scale -] 1 vial SQ ACHS units 03/26 Valproic Acid [Depakene -] 750 mg PO BID capsule 03/26/18 Valproic Acid [Depakene] 750 mg PO Q12H 30 Days #180 capsule 03/26/18 Anemia: Yes Asthma: Yes Cancer: No Cardiac Disorders: No CVA: Yes (TIA 2016, last 2016, tia x7) COPD: No CHF: No Dementia: No Diabetes: Yes Dialysis: Yes (m,w,f) GI Disorders: Yes (gerd) Disorders: No HTN: Yes Hypercholesterolemia: Yes Liver Disease: No Psychiatric Problems: Yes (ANXIETY.) Seizures: Yes Thyroid Disease: No Other medical history: frequent falls - Surgical History Abdominal Surgery: No Appendectomy: No Cardiac Surgery: Yes (AV graft right arm) Cholecystectomy: No Lung Surgery: No Neurologic Surgery: No Orthopedic Surgery: No - Immunization History Td Vaccination: No TDAP Vaccination: No Immunization Up to Date: Yes - Suicide/Smoking/Psychosocial Hx Smoking Status: No Smoking History: Never smoked Have you smoked in the past 12 months: No Number of Cigarettes Smoked Daily: 0 Information on smoking cessation initiated: No Hx Alcohol Use: Yes (wine 1 per night 6 oz.) Drug/Substance Use Hx: No Substance Use Type: None Hx Substance Use Treatment: No Review of Systems - Review of Systems Comments:: 03/28/18 23:21 GENERAL/CONSTITUTIONAL: +Generalized weakness as described. No fever or chills. HEAD, EYES, EARS, NOSE AND THROAT: No change in vision. No ear pain or discharge. No sore throat. CARDIOVASCULAR: No chest pain or shortness of breath RESPIRATORY: No cough, wheezing, or hemoptysis. GASTROINTESTINAL: No nausea, vomiting, diarrhea or constipation. GENITOURINARY: No dysuria, frequency, or change in urination. MUSCULOSKELETAL: No joint or muscle swelling or pain. No neck or back pain. SKIN: No rash NEUROLOGIC: No headache, vertigo, loss of consciousness, or change in strength/ sensation. ENDOCRINE: No increased thirst. No abnormal weight change HEMATOLOGIC/LYMPHATIC: No anemia, easy bleeding, or history of blood clots. ALLERGIC/IMMUNOLOGIC: No hives or skin allergy. *Physical Exam - Vital Signs Last Vital Signs Temp Pulse Resp BP Pulse Ox 98.1 F 88 16 152/79 100 03/28/18 17:19 03/28/18 17:19 03/28/18 17:19 03/28/18 17:19 03/28/18 17:19 - Physical Exam Comments: 03/28/18 23:21 GENERAL: Awake, alert, and fully oriented, in no acute distress HEAD: +Patient has large hematoma surrounding R eye she reports is from fall yesterday. EYES: PERRLA, EOMI, sclera anicteric, conjunctiva clear ENT: Auricles normal inspection, hearing grossly normal, nares patent, oropharynx clear without exudates. Moist mucosa NECK: Normal ROM, supple, no lymphadenopathy, JVD, or masses LUNGS: No distress, speaks full sentences, clear to auscultation bilaterally HEART: Regular rate and rhythm, normal S1 and S2, no murmurs, rubs or gallops, peripheral pulses normal and equal bilaterally. ABDOMEN: Soft, nontender, normoactive bowel sounds. No guarding, no rebound. No masses EXTREMITIES: Normal inspection, Normal range of motion, no edema. No clubbing or cyanosis. NEUROLOGICAL: Cranial nerves II through XII grossly intact. Normal speech, no focal sensorimotor deficits SKIN: Warm, Dry, normal turgor, no rashes or lesions noted. Moderate Sedation - Procedure Monitoring Vital Signs: Procedure Monitoring Vital Signs Temperature 98.1 F 03/28/18 17:19 Pulse Rate 88 03/28/18 17:19 Respiratory Rate 16 03/28/18 17:19 Blood Pressure 152/79 03/28/18 17:19 O2 Sat by Pulse Oximetry (%) 100 03/28/18 17:19 ED Treatment Course - LABORATORY CBC & Chemistry Diagram: 03/28/18 19:20 03/28/18 19:20 Medical Decision Making - Medical Decision Making 03/28/18 23:22 Ms. Frankel is a 52 yo female w/ pmh as described who presents for evaluation of weakness and difficulty ambulating with concurrent frequent falls. Patient noted to have large occular hematoma although vision intact. Patient workup begun w/ CBC/CMP and Head/C-spine/Facial CT's. Patient will likely be admitted for further evaluation. 03/29/18 00:[address] read. Labs significant for elevated creatinine as below; otherwise grossly wnl. Patient singed out to Dr. Lawrence for further evaluation. Laboratory Results - last 24 hr 03/28/18 03/28/18 03/28/18 19:20 19:20 20:30 WBC 5.2 RBC 2.82 L Hgb 10.0 L Hct 28.8 L MCV 102.0 H MCH 35.4 H MCHC 34.7 RDW 14.5 Plt Count 135 MPV 10.0 D Absolute Neuts (auto) 3.2 Neutrophils % 61.7 Lymphocytes % 25.3 D Monocytes % 8.8 Eosinophils % 3.6 Basophils % 0.6 Nucleated RBC % 0 Sodium 138 Potassium 3.8 Chloride 103 Carbon Dioxide 28 Anion Gap 6 L BUN 30 H Creatinine 6.2 H Creat Clearance w eGFR 7.12 Random Glucose 110 H Calcium 8.5 Total Bilirubin 0.4 AST 29 ALT 21 Alkaline Phosphatase 60 Troponin I 0.03 Cancelled Total Protein 6.3 L Albumin 3.4 *DC/Admit/Observation/Transfer Diagnosis at time of Disposition: Weakness, Frequent falls - Discharge Dispostion Decision to Admit order: Yes - Referrals Referrals: Sebastián Parr MD [Primary Care Provider] - - Patient Instructions - Post Discharge Activity
[2018-03-28 20:02] LABS: BASO % 0.6 % (0-2.0); EOS % 3.6 % (0-4.5); HEMATOCRIT 28.8 % (32.4-45.2); LYMPH % 25.3 % (8-40); MCH 35.4 pg (25.7-33.7); MCHC 34.7 g/dl (32.0-36.0); MONO % 8.8 % (3.8-10.2); NEUT % 61.7 % (42.8-82.8); PLATELET COUNT 135 K/MM3 (134-434); RBC 2.82 M/mm3 (3.60-5.2); RDW 14.5 % (11.6-15.6); WHITE BLOOD COUNT 5.2 K/mm3 (4.0-10.0)
[2018-03-28 20:13] LABS: ALBUMIN 3.4 g/dl (3.4-5.0); ALK PHOS 60 U/L (45-117); ANION GAP 6 MMOL/L (8-16); BILIRUBIN,TOTAL 0.4 mg/dL (0.2-1); BLOOD UREA NITROGEN 30 mg/dL (7-18); CALCIUM 8.5 mg/dL (8.5-10.1); CHLORIDE 103 mmol/L (98-107); CO2 28 mmol/L (21-32); CREATININE 6.2 mg/dL (0.55-1.3); GLUCOSE,RANDOM 110 mg/dL (74-106); POTASSIUM 3.8 mmol/L (3.5-5.1); SGOT/AST 29 U/L (15-37); SGPT/ALT 21 U/L (13-61); SODIUM 138 mmol/L (136-145); TOT PROT 6.3 g/dl (6.4-8.2)
--- NOTE | 2018-03-28 20:48 | PDOC ---
Attending Attestation - Resident Resident Name: Sundar Schaefer - ED Attending Attestation I have performed the following: I have examined & evaluated the patient, The case was reviewed & discussed with the resident, I agree w/resident's findings & plan, Exceptions are as noted - Medical Decision Making 03/28/18 20:47 52yoF w/ PD, stroke, ESRD on HD presenting acutely deconditioned after hospitalization last week, requiring admission for ALIVIA placement. - labs - CTH/maxface/cspine for e/o facial trauma nad report of "fracture" from OSH. - admit.
--- NOTE | 2018-03-29 00:55 | PDOC ---
*Physical Exam - Vital Signs Last Vital Signs Temp Pulse Resp BP Pulse Ox 98.1 F 88 16 152/79 100 03/28/18 17:19 03/28/18 17:19 03/28/18 17:19 03/28/18 17:19 03/28/18 17:19 - Physical Exam Comments: 03/29/18 00:55 GENERAL: Awake, alert, and fully oriented, in no acute distress EYES: + Right sided periorbital ecchymosis. PERRLA, EOMI, sclera anicteric, + conjunctiva injection R sided. ENT: Auricles normal inspection, hearing grossly normal, nares patent, oropharynx clear without exudates. Moist mucosa NECK: Normal ROM, supple, no lymphadenopathy, JVD, or masses LUNGS: No distress, speaks full sentences, clear to auscultation bilaterally HEART: Regular rate and rhythm, normal S1 and S2, no murmurs, rubs or gallops, peripheral pulses normal and equal bilaterally. ABDOMEN: Soft, nontender, normoactive bowel sounds. No guarding, no rebound. No masses EXTREMITIES : Normal inspection, Normal range of motion, no edema. No clubbing or cyanosis. NEUROLOGICAL: Cranial nerves II through XII grossly intact. Normal speech, normal gait, no focal sensorimotor deficits SKIN: Warm, Dry, normal turgor, no rashes or lesions noted ED Treatment Course - LABORATORY CBC & Chemistry Diagram: 03/28/18 19:20 03/28/18 19:20 - ADDITIONAL ORDERS Additional order review: Laboratory Results 03/28/18 03/28/18 20:30 19:20 Sodium 138 Potassium 3.8 Chloride 103 Carbon Dioxide 28 Anion Gap 6 L BUN 30 H Creatinine 6.2 H Creat Clearance w eGFR 7.12 Random Glucose 110 H Calcium 8.5 Total Bilirubin 0.4 AST 29 ALT 21 Alkaline Phosphatase 60 Troponin I Cancelled 0.03 Total Protein 6.3 L Albumin 3.4 03/28/18 19:20 RBC 2.82 L MCV 102.0 H MCHC 34.7 RDW 14.5 MPV 10.0 D Neutrophils % 61.7 Lymphocytes % 25.3 D Monocytes % 8.8 Eosinophils % 3.6 Basophils % 0.6 Medical Decision Making - Medical Decision Making 03/29/18 00:49 52 yo F with h/o ESRD ( HD MWF), CVA ( Residual R sided Hemiparesis), Seizure disorder, HTN, asthma, migraines, IDDM, who p/w frequent falls. VSS, AF, A&Ox3. Last dialysis today. Recent d/c [facility] ED (02/2018), for syncope vs. epilepsy. Med redosed Valproic acid 750 mg. Reports frequent falls at home following d/c from [facility] hospital stay (03/24). Patient lives at home alone, with home health aide routinely. Received signout from Dr. Schaefer. Pending CTH, CT FACIAL BONES, C_SPINE. Broad ddx for frequent falls including cardiac dysarrythmias, hypoglycemia, acid-base disturbances, electrolyte abnml, metabolic and toxic derangements, infection. ED Course: CBC, CMP: Unremarkable 03/29/18 00:53 BUN/CR: 30/6.2 ~baseline 03/29/18 01:19 CT FACIAL BONES: R sided nasal bone fracture CTH, C-CSPINE: Unremarkable Plan to admit per dispo from Dr. Schaefer for recurrent falls and weakness. 03/29/18 01:[address] Brady. Admitted to med/surg [facility]. *DC/Admit/Observation/Transfer Diagnosis at time of Disposition: Weakness, Frequent falls Nasal bone fracture Qualifiers: Encounter type: initial encounter Fracture type: closed Qualified Code(s): S02.2XXA - Fracture of nasal bones, initial encounter for closed fracture - Discharge Dispostion Decision to Admit order: Yes - Referrals Referrals: Sebastián Parr MD [Primary Care Provider] - - Patient Instructions - Post Discharge Activity
--- NOTE | 2018-03-29 01:41 | PN ---
Teaching Attending Note Name of Resident: Mariely Cornelius ATTENDING PHYSICIAN STATEMENT I saw and evaluated the patient. I reviewed the resident's note and discussed the case with the resident. I agree with the resident's findings and plan as documented. SUBJECTIVE: Patient is a 52 year old woman with PMH of ?seizures, HTN, TIA, CVA, retinal detachment, right carotid occlusion, multiple toe amputations, diabetic retinopathy, ESRD (M/W/F dialysis) and insulin-treated DM who presents for evaluation of worsening weakness and frequent falls. Mother who is with her reports she was recently discharged after admission 03/21-03/25 for seizure during dialysis, patient has been very weak since discharge and has fallen several times and is unable to ambulate. Patient has a home health aide however they are unable to assist her given body habitus. Patient reports being evaluated this AM at outside hospital for same process however reports she was discharged over difficulty getting her on dialysis list. Patient received dialysis session today. Patient tells me that the main reason she is here is that she wants PT and OT, but she does not want to go to a Rehab facility. Feels that the last time she was hospitalized, that they were not getting her out of bed and did not assess how much she can do. Says she sustained a hairline fracture around the right orbit the last time she fell. Has poor vision in the right eye and legally blind in the left eye. OBJECTIVE: Alert and obese Vital Signs Period Temp Pulse Resp BP Sys/[place] Pulse Ox Last 24 Hr 98.1 F 88 16 152/79 100 HEENT: No Jaundice, periorbital ecchymosis of right eye with conjunctival injection; blind in left eye; no discharge, Normocephalic, External ears are normal and hearing is grossly intact. No nasal discharge. Neck: Supple, nontender. No palpable adenopathy or thyromegaly. No JVD Chest: Good effort. Clear to auscultation and percussion. Heart: Regular. No S3, rub or murmur Abdomen: Not distended, soft, nontender and no HSM. No rebound or guarding. Normoactive bowel sounds. Ext: Peripheral pulses intact. No leg edema. Left UE AV graft; amputations of right 2nd toe, and left 1st and 2nd toes. Skin: Warm and dry. No petechiae, rash or ecchymosis. Neuro: Alert. Oriented x3. CN 2-12 grossly intact. Right hemiparesis with RUE weaker than RLE. Sensation grossly intact in all four extremities. Home Medications Medication Instructions Recorded Albuterol Sulfate Inhaler - 2 inh PO BID PRN 08/03/16 [Ventolin HFA Inhaler -] Atorvastatin Ca [Lipitor] 80 mg PO HS 08/03/16 Furosemide [Lasix] 40 mg PO TUTH 08/03/16 Sennosides [Senna] 2 tab PO DAILY 08/03/16 clonazePAM [Klonopin -] 0.5 mg PO BID 08/03/16 Clopidogrel Bisulfate [Plavix -] 75 mg PO DAILY 08/26/16 Aspirin Coated [Ecotrin -] 325 mg PO DAILY 11/07/16 Amlodipine Besylate [Norvasc -] 10 mg PO DAILY #30 tablet 01/09/17 Insulin Sliding Scale [Novolog See Protocol SQ ACHS #30 pen 01/09/17 Vial Sliding Scale -] Carvedilol [Coreg] 25 mg PO BID #60 tablet 01/11/17 Insulin Glargine,Hum.rec.anlog 7 units SQ HS #1 vial 01/11/17 [Lantus (10mL VIAL) -] Cetirizine HCl [Zyrtec -] 10 mg PO DAILY 11/09/17 Hydralazine HCl 50 mg PO TUTH 03/22/18 Linaclotide [Linzess] 145 mcg PO DAILY 03/22/18 Polyethylene Glycol 3350 [Miralax 17 gm PO DAILY 03/22/18 119 gm Btl -] Sevelamer Carbonate [Renvela -] 800 mg PO AC 03/22/18 Insulin Sliding Scale [Novolog 1 vial SQ ACHS units 03/26/18 Vial Sliding Scale -] Valproic Acid [Depakene -] 750 mg PO BID capsule 03/26/18 Valproic Acid [Depakene] 750 mg PO Q12H 30 Days #180 capsule 03/26/18 Abnormal Lab Results 03/28/18 03/28/18 19:20 19:20 RBC 2.82 L Hgb 10.0 L Hct 28.8 L MCV 102.0 H MCH 35.4 H Anion Gap 6 L BUN 30 H Creatinine 6.2 H Random Glucose 110 H Total Protein 6.3 L ASSESSMENT AND PLAN: 1. Frequent falls/Global debility/Seizure disorder - Patient has residual right hemiparesis so should not be standing or attempting to walk without assistance. No new pathology on head CT, but face CT scan showed medial wall right orbital fracture and nasal bone fracture. Will monitor for any CSF drainage. Refused brain MRI during her admission last month because she wants Open MRI. Impaired vision and seizure disorder may also be contributing to "falls". Will liaise with nephrology to make sure she is not getting too much antihypertensive drugs/diuretics leading to hypotension. It appears that her main reason for the ER visit is to get intensive PT and OT. Consult PT and Neurology. Check valproic acid level. Implement fall precautions and neurochecks and repeat head CT in 24 to 36 hour because of her risk for subdural hematoma. 2. DM - For now, we will hold the home diabetes drugs and implement sliding scale insulin regimen. Provide comprehensive diabetes care with patient teaching and counseling about the importance of euglycemia, eye care and foot care. 3. ESRD - Continue thrice weekly dialysis. 4. High MCV and Anemia - Anemia likely mostly due to CKD. High MCV may be drug side effect - but will check B12 and folate levels. Do basic anemia work up including serial stool guaiacs, reticulocyte count and iron studies. 5. Obesity - Will provide patient all the necessary assistance, counseling and positive reinforcement to facilitate weight loss. Consult cableman. 6. DVT prophylaxis - Heparin 5000u sq tid. 7. Advance directives - Full code
--- NOTE | 2018-03-29 04:35 | HP ---
CHIEF COMPLAINT: Frequent Falls PCP: HISTORY OF PRESENT ILLNESS: 52 y/o F with PMHx of ESRD on HD (MWF), CVA (with R Hemiparesis), Seizure disorder, HTN, IDDM, Left eye blindness presents after falling. Patient was recently discharged from [facility] on Monday after experiencing a seizure during dialysis for which she was changed to Valproic Acid from keppra; At this time patient declined SNF placement. Part of the history was provided by patients mother over the phone. Since discharge, patient experienced 3 falls witnessed by the home health aide. Mother spoke with Ivan, the home health aide who says the patient did not trip, lose consciousness or bowel/bladder control and did not have any jerking movements associated with the falls. Mother has noticed increase weakness and balance issues with patient recently. Patient did hit her head with the falls and thus EMS was called. Patient has been compliant with medications since discharge. Denies any decreased PO Intake, fevers, chills, chest pain, SOB, dysuria, or dizziness. Mother mentions that patient has prescription eye glasses however she is not compliant. Additionally, patient is suppose to use the wheelchair and only the walker when transitioning to the commode however patient is not compliant. ER course was notable for: (1) (2) (3) Recent Travel: Denies PAST MEDICAL HISTORY: ESRD on HD (MWF), CVA (with R Hemiparesis), TIA, Seizure disorder, HTN, HLD, GERD, Asthma, Migraines, IDDM, Left eye blindness, Right carotid occlusion PAST SURGICAL HISTORY: AV Fistula R Arm Social History: Smoking: Denies Alcohol: Denies Drugs: Denies Ambulation: WheelChair, Walker Residence: Alone with daytime babysitter Health Aide Family History: Denies Allergies amoxicillin [Amoxicillin] Allergy (Severe, Verified 03/28/18 17:37) Itching hydrocodone bitartrate [From Vicodin] Allergy (Severe, Verified 03/28/18 17:37) Hives,ITCHING morphine Allergy (Severe, Verified 03/28/18 17:37) Itching neomycin [Neomycin] Allergy (Severe, Verified 03/28/18 17:37) Swelling oxycodone HCl [From Percocet] Allergy (Severe, Verified 03/28/18 17:37) Itching,HIVES rofecoxib [From Vioxx] Allergy (Severe, Verified 03/28/18 17:37) Hives Sulfa (Sulfonamide Antibiotics) Allergy (Severe, Verified 03/28/18 17:37) sclera reddened,ITCHING tramadol Allergy (Severe, Verified 03/28/18 17:37) Vomiting tomato Allergy (Verified 03/28/18 17:37) grapefruit [Grapefruit] Adverse Reaction (Severe, Verified 03/28/18 17:37) CAN'T TAKE BECAUSE OF MEDICATIONS vancomycin Adverse Reaction (Mild, Verified 03/28/18 17:37) red man syndrome Heparin Analogues [Heparin Agents] Adverse Reaction (Unknown, Verified 03/28/18 17:37) OF 09/14/14, PT IS ABLE TO TAKE WITH MONITORING OF SYMPTOMS flu shot Allergy (Severe, Uncoded 03/28/18 17:37) GETS FLU SYMPTOMS grape juice Adverse Reaction (Severe, Uncoded 03/28/18 17:37) HOME MEDICATIONS: Home Medications Medication Instructions Recorded Albuterol Sulfate Inhaler - 2 inh PO BID PRN 08/03/16 [Ventolin HFA Inhaler -] Atorvastatin Ca [Lipitor] 80 mg PO HS 08/03/16 Furosemide [Lasix] 40 mg PO TUTH 08/03/16 Sennosides [Senna] 2 tab PO DAILY 08/03/16 clonazePAM [Klonopin -] 0.5 mg PO BID 08/03/16 Clopidogrel Bisulfate [Plavix -] 75 mg PO DAILY 08/26/16 Aspirin Coated [Ecotrin -] 325 mg PO DAILY 11/07/16 Amlodipine Besylate [Norvasc -] 10 mg PO DAILY #30 tablet 01/09/17 Insulin Sliding Scale [Novolog See Protocol SQ ACHS #30 pen 01/09/17 Vial Sliding Scale -] Carvedilol [Coreg] 25 mg PO BID #60 tablet 01/11/17 Insulin Glargine,Hum.rec.anlog 7 units SQ HS #1 vial 01/11/17 [Lantus (10mL VIAL) -] Cetirizine HCl [Zyrtec -] 10 mg PO DAILY 11/09/17 Hydralazine HCl 50 mg PO TUTH 03/22/18 Linaclotide [Linzess] 145 mcg PO DAILY 03/22/18 Polyethylene Glycol 3350 [Miralax 17 gm PO DAILY 03/22/18 119 gm Btl -] Sevelamer Carbonate [Renvela -] 800 mg PO AC 03/22/18 Insulin Sliding Scale [Novolog 1 vial SQ ACHS units 03/26/18 Vial Sliding Scale -] Valproic Acid [Depakene -] 750 mg PO BID capsule 03/26/18 Valproic Acid [Depakene] 750 mg PO Q12H 30 Days #180 capsule 03/26/18 REVIEW OF SYSTEMS As per HPI PHYSICAL EXAMINATION Vital Signs - 24 hr 03/28/18 03/29/18 17:19 02:38 Temperature 98.1 F Pulse Rate 88 Pulse Rate [ 86 Apical] Respiratory 16 18 Rate Blood Pressure 152/79 Blood Pressure 146/78 [Left Arm] O2 Sat by Pulse 100 98 Oximetry (%) GENERAL: A&Ox3, NAD HEAD: NCAT EYES: Right Periorbital Ecchymosis with Right conjunctival injection, No active drainage. EOMI EARS, NOSE, THROAT: Nares patent without active discharge, No dried blood present. Moist mucous membranes. NECK: No JVD LUNGS: CTA B/L, No wheezes, no crackles HEART: Regular rate and rhythm, normal S1 and S2 without murmur ABDOMEN: Obese, Soft, nontender, not distended, + bowel sounds, no guarding UPPER EXTREMITIES: Right AV Fistula LOWER EXTREMITIES: 2+ pulses, Trace edema. NEUROLOGICAL: Cranial nerves II-XII intact. Slow speech with difficulty expressing herself. 2/5 Muscle strength to Right handgrip, Elbow extension/ flexion; 4/5 on Left. 3/5 Muscle strength to Right Hip Flexion, plantarflexion, dorsiflexion; 4/5 on Left. SKIN: Warm, dry Laboratory Results - last 24 hr 03/28/18 03/28/18 03/28/18 19:20 19:20 20:30 WBC 5.2 RBC 2.82 L Hgb 10.0 L Hct 28.8 L MCV 102.0 H MCH 35.4 H MCHC 34.7 RDW 14.5 Plt Count 135 MPV 10.0 D Absolute Neuts (auto) 3.2 Neutrophils % 61.7 Lymphocytes % 25.3 D Monocytes % 8.8 Eosinophils % 3.6 Basophils % 0.6 Nucleated RBC % 0 Sodium 138 Potassium 3.8 Chloride 103 Carbon Dioxide 28 Anion Gap 6 L BUN 30 H Creatinine 6.2 H Creat Clearance w eGFR 7.12 Random Glucose 110 H Calcium 8.5 Total Bilirubin 0.4 AST 29 ALT 21 Alkaline Phosphatase 60 Troponin I 0.03 Cancelled Total Protein 6.3 L Albumin 3.4 ASSESSMENT/PLAN: 52 y/o F with PMHx of ESRD on HD (MWF), CVA (with R Hemiparesis), Seizure disorder, HTN, IDDM, Left eye blindness presents after falling #Frequent Falls in the setting of R Hemiparesis and Seizure disorder -Likely due to Deconditioning vs Polypharmacy vs Poor vision -CT Head and C-Spine Negative -Neurology (Dr. Pelayo) COnsulted -Fall precautions -NeuroChecks -Physical Therapy -Social Work Consult -Valproic Acid Level -Would benefit from Repeat Head CT in 24-36 hours #R Orbital and Nasal Bone Fx -Likely due to frequent Falls -Seen on CT Facial Bones -Pain control Via Tylenol -Would benefit from ENT Consult #ESRD -Nephrology (Dr. Sharma) consulted #Macrocytosis Anemia -Likely due to CKD -B12 Folate, Retic Count, Iron Studies, Stool guiac pending #IDDM -ISS BGMs ACHS #FEN -PO Fluids -Lytes WNL -Diabetic Diet #PPX -DVT: SCDs Dispo: Admit to Med-surg Visit type - Emergency Visit Emergency Visit: Yes ED Registration Date: 03/29/18 Care time: The patient presented to the Emergency Department on the above date and was hospitalized for further evaluation of their emergent condition. - New Patient This patient is new to me today: Yes Date on this admission: 03/30/18 - Critical Care Critical Care patient: No
[2018-03-29] MEDS: INSULIN SLIDING SCALE (NOVOLOG) 1 VIAL SQ SCH ×4 (06:36→22:17)
[2018-03-29 06:39] LABS: BASO % 0.5 % (0-2.0); EOS % 3.5 % (0-4.5); HEMATOCRIT 28.7 % (32.4-45.2); HEMOGLOBIN 9.2 GM/dL (10.7-15.3); LYMPH % 32.3 % (8-40); MCH 33.2 pg (25.7-33.7); MCHC 31.9 g/dl (32.0-36.0); MEAN PLT VOLUME 9.6 fl (7.5-11.1); MONO % 9.2 % (3.8-10.2); NEUT % 54.5 % (42.8-82.8); PLATELET COUNT 116 K/MM3 (134-434); RBC 2.76 M/mm3 (3.60-5.2); RDW 14.7 % (11.6-15.6); WHITE BLOOD COUNT 5.6 K/mm3 (4.0-10.0)
[2018-03-29 07:31] LABS: URINE APPEARANCE SLCLOUDY; URINE BILIRUBIN NEGATIVE (<2.0 mg/dL); URINE COLOR LTYELLOW; URINE GLUCOSE (UA) NEGATIVE (NEGATIVE); URINE KETONE NEGATIVE (NEGATIVE); URINE LEUK ESTERASE TRACE (NEGATIVE); URINE NITRITE NEGATIVE (NEGATIVE); URINE PROTEIN 2+ (NEGATIVE); URINE UROBILINOGEN NEGATIVE mg/dL (0.2-1.0)
[2018-03-29 07:42] LABS: EPI CELLS MODERATE /HPF (FEW); URINE BACTERIA MODERATE /hpf (NONE SEEN); URINE MUCUS RARE
[2018-03-29 07:43] LABS: ALBUMIN 3.1 g/dl (3.4-5.0); ALK PHOS 52 U/L (45-117); ANION GAP 7 MMOL/L (8-16); BILIRUBIN,TOTAL 0.3 mg/dL (0.2-1); BLOOD UREA NITROGEN 39 mg/dL (7-18); CALCIUM 8.5 mg/dL (8.5-10.1); CHLORIDE 104 mmol/L (98-107); CO2 29 mmol/L (21-32); GLUCOSE,RANDOM 76 mg/dL (74-106); MAGNESIUM 2.3 mg/dL (1.8-2.4); PHOSPHOROUS 3.6 mg/dL (2.5-4.9); POTASSIUM 3.7 mmol/L (3.5-5.1); SGOT/AST 29 U/L (15-37); SGPT/ALT 18 U/L (13-61); SODIUM 139 mmol/L (136-145); TOT PROT 5.9 g/dl (6.4-8.2)
[2018-03-29] MEDS ORDERED: ALBUTEROL SO4 8 GM HFA INHALER IH PRN (08:32)
[2018-03-29 08:46] LABS: CREATININE 7.4 mg/dL (0.55-1.3)
--- NOTE | 2018-03-29 09:09 | PN ---
Physical Exam: SUBJECTIVE: Patient seen and examined at bedside this morning. Denies prodromal symptoms prior to her falls. States she slid down from seated position. She states she feels weak in bilateral upper and lower extremities. Denies headaches, changes in her vision, pain with extraocular movements. OBJECTIVE: Vital Signs Period Temp Pulse Resp BP Sys/[place] Pulse Ox Last 24 Hr 98.1 F-98.1 F 76-88 16-20 146-171/78-83 97-100 GENERAL: The patient is awake, alert, and fully oriented, in no acute distress. HEENT: Sweling, ecchymosos over right eye. Conjunctival injection right eye. EOMI B/L without extraocular movement pain. Oropharynx clear without exudates, moist mucous membranes. Neck supple without lymphadenopathy. LUNGS: Breath sounds equal, clear to auscultation bilaterally. No wheezes, no crackles. No accessory muscle use. HEART: Regular rate and rhythm, S1, S2 without murmur, rub or gallop. ABDOMEN: Obese. Soft, nontender, nondistended. Normoactive bowel sounds X4 quadrants. No guarding, no rebound tenderness. No hepatosplenomegaly palpated or percussed. EXTREMITIES: 2+ radial pulses b/l, 1+ dorsalis pedis pulses b/l. 1+ edema b/l lower extremities. Strength 3/5 right upper extremity 4/5 left upper extremity. Strength 3/5 right lower extremity, 4/5 left lower extremity. Sensation grossly intact B/L upper and lower extremities. NEUROLOGICAL: Cranial nerves II through XII grossly intact. Speech is slow, with some difficulty in expressing herself. PSYCH: Mood and affect appropriate upon my encounter. SKIN: Warm, dry. Laboratory Results - last 24 hr 03/28/18 03/28/18 03/28/18 18:59 19:20 19:20 WBC 5.2 RBC 2.82 L Hgb 10.0 L Hct 28.8 L MCV 102.0 H MCH 35.4 H MCHC 34.7 RDW 14.5 Plt Count 135 MPV 10.0 D Absolute Neuts (auto) 3.2 Neutrophils % 61.7 Lymphocytes % 25.3 D Monocytes % 8.8 Eosinophils % 3.6 Basophils % 0.6 Nucleated RBC % 0 Sodium 138 Potassium 3.8 Chloride 103 Carbon Dioxide 28 Anion Gap 6 L BUN 30 H Creatinine 6.2 H Creat Clearance w eGFR 7.12 POC Glucometer Random Glucose 110 H Calcium 8.5 Phosphorus Magnesium Total Bilirubin 0.4 AST 29 ALT 21 Alkaline Phosphatase 60 Troponin I 0.03 Total Protein 6.3 L Albumin 3.4 Vitamin B12 Serum Folate Urine Color Ltyellow Urine Appearance Slcloudy Urine pH 8.0 Ur Specific [place] 1.011 Urine Protein 2+ H Urine Glucose (UA) Negative Urine Ketones Negative Urine Blood 1+ H Urine Nitrite Negative Urine Bilirubin Negative Urine Urobilinogen Negative Ur Leukocyte Esterase Trace Urine WBC (Auto) 6 Urine RBC (Auto) <1 Ur Epithelial Cells Moderate Urine Bacteria Moderate Urine Mucus Rare 03/28/18 03/29/18 03/29/18 20:30 06:00 06:00 WBC 5.6 RBC 2.76 L Hgb 9.2 L Hct 28.7 L MCV 104.0 H MCH 33.2 MCHC 31.9 L RDW 14.7 Plt Count 116 L MPV 9.6 Absolute Neuts (auto) 3.1 Neutrophils % 54.5 Lymphocytes % 32.3 D Monocytes % 9.2 Eosinophils % 3.5 Basophils % 0.5 Nucleated RBC % 0 Sodium 139 Potassium 3.7 Chloride 104 Carbon Dioxide 29 Anion Gap 7 L BUN 39 H Creatinine 7.4 H* Creat Clearance w eGFR 5.80 POC Glucometer Random Glucose 76 Calcium 8.5 Phosphorus 3.6 Magnesium 2.3 Total Bilirubin 0.3 AST 29 ALT 18 Alkaline Phosphatase 52 Troponin I Cancelled Total Protein 5.9 L Albumin 3.1 L Vitamin B12 1597 H Serum Folate 4 Urine Color Urine Appearance Urine pH Ur Specific [place] Urine Protein Urine Glucose (UA) Urine Ketones Urine Blood Urine Nitrite Urine Bilirubin Urine Urobilinogen Ur Leukocyte Esterase Urine WBC (Auto) Urine RBC (Auto) Ur Epithelial Cells Urine Bacteria Urine Mucus 03/29/18 06:36 WBC RBC Hgb Hct MCV MCH MCHC RDW Plt Count MPV Absolute Neuts (auto) Neutrophils % Lymphocytes % Monocytes % Eosinophils % Basophils % Nucleated RBC % Sodium Potassium Chloride Carbon Dioxide Anion Gap BUN Creatinine Creat Clearance w eGFR POC Glucometer 77 Random Glucose Calcium Phosphorus Magnesium Total Bilirubin AST ALT Alkaline Phosphatase Troponin I Total Protein Albumin Vitamin B12 Serum Folate Urine Color Urine Appearance Urine pH Ur Specific [place] Urine Protein Urine Glucose (UA) Urine Ketones Urine Blood Urine Nitrite Urine Bilirubin Urine Urobilinogen Ur Leukocyte Esterase Urine WBC (Auto) Urine RBC (Auto) Ur Epithelial Cells Urine Bacteria Urine Mucus Active Medications Generic Name Dose Route Start Last Admin Trade Name Freq PRN Reason Stop Dose Admin Albuterol Sulfate 2 puff 03/29/18 08:32 Ventolin Hfa Inhaler - IH BID PRN ASTHMA Amlodipine Besylate 10 mg 03/29/18 10:00 Norvasc - PO DAILY [facility] Atorvastatin Calcium 80 mg 03/29/18 22:00 Lipitor - PO HS [facility] Carvedilol 25 mg 03/29/18 10:00 Coreg - PO BID [facility] Insulin Aspart 1 vial 03/29/18 07:00 03/29/18 06:36 Novolog Vial Sliding Scale - SQ Not Given ACHS [facility] Protocol Loratadine 10 mg 03/29/18 10:00 Claritin - PO DAILY [facility] Sevelamer Carbonate 800 mg 03/29/18 12:00 Renvela - PO TIDCM [facility] Valproic Acid 750 mg 03/29/18 10:00 Depakene - PO BID [facility] ASSESSMENT/PLAN:
[2018-03-29] MEDS ORDERED: PT OWN MED DRAWER 7, Y5N ONE (10:22)
--- NOTE | 2018-03-29 10:22 | CON.NEURO ---
Consult Consult Specialty:: Gita Referred by:: hospitalist - History of Present Illness History of Present Illness: 52-year-old right-handed woman with history of Prior CVA TIA Seizure disorder Patient was recently admitted to the hospital with questionable seizure disorder with confusion patient was on Keppra I personally tapered her Keppra to start her on Depakote patient was stepwise moved out of the ICU patient. Was discharged home! According to the patient she missed the chair and she fell down and she traumatized her right side of the face with ecchymosis. Patient with difficulty seeing with the left eye which is chronic patient now complains of nothing she denies headache blurry vision double vision patient was seen on the floor since admission patient with no recurrence of her seizure and fortunately there was no blood work that was done for the Depakote level. unfortunately the CAT scan of the head was done yesterday at 6 PM I was notified about this patient's that readmission this morning. CAT scan of the head I compared this to the one that was done in February 2018 showed an area of questionable contusion on the right frontal hemisphere. upon reviewing the chart patient was discharged off the Depakote. Again patient with abnormal behavior when she presented in February and I told her that she needs to be off the Keppra because 2 reasons #1 the Keppra will be dialyzed when she goes for dialysis but also the Keppra is associated with abnormal behavior. 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 Cardio/Vascular: Yes: HTN, Hyperlipdemia, Other (Peripheral vascular disease) Pulmonary: Yes: Asthma, Sleep Apnea Gastrointestinal: Yes: Constipation Renal/: Yes: Renal Failure, Hemodialysis ...LMP: 12/25/17 ...: No (per pt) Rheumatology: Yes: Other (See HPI) Endocrine: Yes: Diabetes Mellitus - Past Surgical History Past Surgical History: Yes: Amputation, AV Fistula/Graft, - Alcohol/Substance Use Hx Alcohol Use: Yes (wine 1 per night 6 oz.) - Smoking History Smoking history: Never smoked Have you smoked in the past 12 months: No Aproximately how many cigarettes per day: 0 - Social History ADL: Independent History of Recent Travel: No Home Medications - Allergies Allergies/Adverse Reactions: Allergies Allergy/AdvReac Type Severity Reaction Status Date / Time amoxicillin [Amoxicillin] Allergy Severe Itching Verified 03/28/18 17:37 hydrocodone bitartrate Allergy Severe Hives,ITCHI Verified 03/28/18 17:37 [From Vicodin] NG morphine Allergy Severe Itching Verified 03/28/18 17:37 neomycin [Neomycin] Allergy Severe Swelling Verified 03/28/18 17:37 oxycodone HCl [From Percocet] Allergy Severe Itching,HIV Verified 03/28/18 17:37 ES rofecoxib [From Vioxx] Allergy Severe Hives Verified 03/28/18 17:37 Sulfa (Sulfonamide Allergy Severe sclera Verified 03/28/18 17:37 Antibiotics) reddened,ITCHING tramadol Allergy Severe Vomiting Verified 03/28/18 17:37 tomato Allergy Verified 03/28/18 17:37 grapefruit [Grapefruit] AdvReac Severe CAN'T TAKE Verified 03/28/18 17:37 BECAUSE OF MEDICATIONS vancomycin AdvReac Mild red man Verified 03/28/18 17:37 syndrome Heparin Analogues AdvReac Unknown Verified 03/28/18 17:37 [Heparin Agents] flu shot Allergy Severe GETS FLU Uncoded 03/28/18 17:37 SYMPTOMS grape juice AdvReac Severe Uncoded 03/28/18 17:37 - Home Medications Home Medications: Ambulatory Orders Albuterol Sulfate Inhaler - [Ventolin HFA Inhaler -] 2 inh PO BID PRN 08/03/16 Atorvastatin Ca [Lipitor] 80 mg PO HS 08/03/16 Furosemide [Lasix] 40 mg PO TUTH 08/03/16 Sennosides [Senna] 2 tab PO DAILY 08/03/16 clonazePAM [Klonopin -] 0.5 mg PO BID 08/03/16 Clopidogrel Bisulfate [Plavix -] 75 mg PO DAILY 08/26/16 Aspirin Coated [Ecotrin -] 325 mg PO DAILY 11/07/16 Amlodipine Besylate [Norvasc -] 10 mg PO DAILY #30 tablet 01/09/17 Insulin Sliding Scale [Novolog Vial Sliding Scale -] See Protocol SQ ACHS #30 pen 01/09/17 Carvedilol [Coreg] 25 mg PO BID #60 tablet 01/11/17 Insulin Glargine,Hum.rec.anlog [Lantus (10mL VIAL) -] 7 units SQ HS #1 vial Cetirizine HCl [Zyrtec -] 10 mg PO DAILY 11/09/17 Hydralazine HCl 50 mg PO TUTH 03/22/18 Linaclotide [Linzess] 145 mcg PO DAILY 03/22/18 Polyethylene Glycol 3350 [Miralax 119 gm Btl -] 17 gm PO DAILY 03/22/18 Sevelamer Carbonate [Renvela -] 800 mg PO AC 03/22/18 Insulin Sliding Scale [Novolog Vial Sliding Scale -] 1 vial SQ ACHS units 03/26 Valproic Acid [Depakene -] 750 mg PO BID capsule 03/26/18 Valproic Acid [Depakene] 750 mg PO Q12H 30 Days #180 capsule 03/26/18 Family Disease History - Family Disease History Family History: Unable to Obtain Review of Systems - Review of Systems Constitutional: reports: No Symptoms Eyes: reports: No Symptoms Neurological: reports: No Symptoms Physical Exam-Neuro Vital Signs: Vital Signs Temperature 98.1 F 03/29/18 09:27 Pulse Rate 71 03/29/18 09:27 Respiratory Rate 20 03/29/18 09:27 Blood Pressure 142/69 03/29/18 09:27 O2 Sat by Pulse Oximetry (%) 97 03/29/18 06:00 Constitutional: Yes: Well Nourished Neck: Yes: WNL Cardiovascular: Yes: WNL Labs: CBC, BMP 03/29/18 06:00 03/29/18 06:00 - Neuro Exam Level Of Consciousness: Yes: Oriented to Person, Oriented to Place, Oriented to Time Eyes: Yes: PERRLA Speech: Garbled Dominant Hand: Right Cranial Nerves II-XII Intact: No Gag: Present DTR's: 1+ Left Bicep, 1+ Right Bicep, 1+ Left Tricep, 1+ Right Tricep, 3+ Left Brachioradialis Response to light touch: Abnormal Response to pain prick: Abnormal Response to temperature: Abnormal Motor Strength: 2/5: Right Arm, 3/5: Left Leg, 4/5: Left Arm, Right Leg Gait: Deferred Imaging - Results Ultrasound: Image Reviewed Problem List - Problems (1) Complex partial seizure Assessment/Plan: is very sad to see the patient discharged on no antiseizure medication No neurologist was called in to discuss the discharge summary Of course the patient comes back less than 24 hours with fall We cannot determine if she had another seizure Now the CAT scan is abnormal and the patient cannot be on the medical floor isolated in room 826 with no seizure precautions. 1. Neuro checks every 1 hour. 2. Suggest to move the patient to the medical ICU. 3. Repeat CAT scan of the head in 24 hours. 4. Obtain the results of the CAT scan reading from yesterday. 5. Seizure precautions. 6. Suggest to start the patient on lamotrigine 25 mg every 12 hours this will also work as a mood stabilizer and seizure precaution not dialyze by the kidney during hemodialysis. 7. Recheck the blood test including the liver function and a lamotrigine level in 24 hours. Code(s): G40.209 - LOCAL-REL SYMPTC EPI W CMPLX PRT SEIZ,NOT NTRCT,W/O STAT EPI Qualifiers: Epilepsy type: partial symptomatic
[2018-03-29] MEDS: CARVEDILOL 25 MG TABLET (FP) PO SCH ×2 (10:23→22:16)
[2018-03-29] MEDS: LORATADINE 10 MG TABLET PO SCH (10:23)
[2018-03-29] MEDS: amLODIPine BESYLATE 10 MG TABLET (FP) PO SCH (10:23)
[2018-03-29] MEDS: VALPROIC ACID 250 MG CAPSULE PO SCH ×2 (10:57→22:16)
[2018-03-29] MEDS: SEVELAMER CARBONATE 800 MG TAB (FP) PO SCH ×2 (11:36→17:13)
[2018-03-29] MEDS ORDERED: SODIUM CHLORIDE 250 ML IV PRN (14:12)
--- NOTE | 2018-03-29 14:12 | CONSULT ---
Consult Consult Specialty:: Nephrology Reason for Consultation:: ESRD - History of Present Illness Chief Complaint: s/p fall History of Present Illness: Pt is a 52 year old female with pmhx of ESRD, (MWF), CVA, epilepsy, HTN, and DM who presents to the ER after fall. She did bang her head when she fell. She is awake and able to give some history. - History Source History Provided By: Patient - Past Medical History [employer]: Yes: CVA Cardio/Vascular: Yes: HTN, Hyperlipdemia, Other (Peripheral vascular disease) Pulmonary: Yes: Asthma, Sleep Apnea Gastrointestinal: Yes: Constipation Renal/: Yes: Renal Failure, Hemodialysis ...LMP: 12/25/17 ...: No (per pt) Rheumatology: Yes: Other (See HPI) Endocrine: Yes: Diabetes Mellitus - Past Surgical History Past Surgical History: Yes: Amputation, AV Fistula/Graft, - Alcohol/Substance Use Hx Alcohol Use: Yes (wine 1 per night 6 oz.) - Smoking History Smoking history: Never smoked Have you smoked in the past 12 months: No Aproximately how many cigarettes per day: 0 - Social History ADL: Independent History of Recent Travel: No Home Medications - Allergies Allergies/Adverse Reactions: Allergies Allergy/AdvReac Type Severity Reaction Status Date / Time amoxicillin [Amoxicillin] Allergy Severe Itching Verified 03/28/18 17:37 hydrocodone bitartrate Allergy Severe Hives,ITCHI Verified 03/28/18 17:37 [From Vicodin] NG morphine Allergy Severe Itching Verified 03/28/18 17:37 neomycin [Neomycin] Allergy Severe Swelling Verified 03/28/18 17:37 oxycodone HCl [From Percocet] Allergy Severe Itching,HIV Verified 03/28/18 17:37 ES rofecoxib [From Vioxx] Allergy Severe Hives Verified 03/28/18 17:37 Sulfa (Sulfonamide Allergy Severe sclera Verified 03/28/18 17:37 Antibiotics) reddened,ITCHING tramadol Allergy Severe Vomiting Verified 03/28/18 17:37 tomato Allergy Verified 03/28/18 17:37 grapefruit [Grapefruit] AdvReac Severe CAN'T TAKE Verified 03/28/18 17:37 BECAUSE OF MEDICATIONS vancomycin AdvReac Mild red man Verified 03/28/18 17:37 syndrome Heparin Analogues AdvReac Unknown Verified 03/28/18 17:37 [Heparin Agents] flu shot Allergy Severe GETS FLU Uncoded 03/28/18 17:37 SYMPTOMS grape juice AdvReac Severe Uncoded 03/28/18 17:37 - Home Medications Home Medications: Ambulatory Orders Albuterol Sulfate Inhaler - [Ventolin HFA Inhaler -] 2 inh PO BID PRN 08/03/16 Atorvastatin Ca [Lipitor] 80 mg PO HS 08/03/16 Furosemide [Lasix] 40 mg PO TUTH 08/03/16 Sennosides [Senna] 2 tab PO DAILY 08/03/16 clonazePAM [Klonopin -] 0.5 mg PO BID 08/03/16 Clopidogrel Bisulfate [Plavix -] 75 mg PO DAILY 08/26/16 Aspirin Coated [Ecotrin -] 325 mg PO DAILY 11/07/16 Amlodipine Besylate [Norvasc -] 10 mg PO DAILY #30 tablet 01/09/17 Insulin Sliding Scale [Novolog Vial Sliding Scale -] See Protocol SQ ACHS #30 pen 01/09/17 Carvedilol [Coreg] 25 mg PO BID #60 tablet 01/11/17 Insulin Glargine,Hum.rec.anlog [Lantus (10mL VIAL) -] 7 units SQ HS #1 vial Cetirizine HCl [Zyrtec -] 10 mg PO DAILY 11/09/17 Hydralazine HCl 50 mg PO TUTH 03/22/18 Linaclotide [Linzess] 145 mcg PO DAILY 03/22/18 Polyethylene Glycol 3350 [Miralax 119 gm Btl -] 17 gm PO DAILY 03/22/18 Sevelamer Carbonate [Renvela -] 800 mg PO AC 03/22/18 Insulin Sliding Scale [Novolog Vial Sliding Scale -] 1 vial SQ ACHS units 03/26 Valproic Acid [Depakene -] 750 mg PO BID capsule 03/26/18 Valproic Acid [Depakene] 750 mg PO Q12H 30 Days #180 capsule 03/26/18 Family Disease History - Family Disease History Family History: Denies Review of Systems - Review of Systems Constitutional: reports: Malaise Eyes: reports: No Symptoms HENT: reports: Other (eye swelling) Neck: reports: No Symptoms Respiratory: reports: No Symptoms Gastrointestinal: reports: No Symptoms Genitourinary: reports: No Symptoms Musculoskeletal: reports: Muscle Weakness Neurological: reports: Dizziness Endocrine: reports: No Symptoms Physical Exam Vital Signs: Vital Signs Temperature 98.1 F 03/29/18 09:27 Pulse Rate 71 03/29/18 09:27 Respiratory Rate 20 03/29/18 09:27 Blood Pressure 142/69 03/29/18 09:27 O2 Sat by Pulse Oximetry (%) 97 03/29/18 09:00 Constitutional: Yes: Calm Eyes: Yes: Other (bruised eye) Neck: Yes: Supple Cardiovascular: Yes: S1, S2 Respiratory: Yes: CTA Bilaterally Gastrointestinal: Yes: Soft, Abdomen, Obese Renal/: Yes: Incontinence Musculoskeletal: Yes: Muscle Weakness Edema: No Neurological: Yes: Oriented Labs: CBC, BMP 03/29/18 06:00 03/29/18 06:00 Laboratory Tests 03/22/18 03/28/18 03/28/18 00:01 19:20 19:20 Hgb 10.0 L Potassium BUN Creatinine 6.2 H Urine Protein 2+ H Urine Blood 1+ H 03/29/18 03/29/18 06:00 06:00 Hgb 9.2 L Potassium 3.7 BUN 39 H Creatinine 7.4 H* Urine Protein Urine Blood Imaging - Results Cat Scan: Report Reviewed Problem List - Problems (1) Complex partial seizure Code(s): G40.209 - LOCAL-REL SYMPTC EPI W CMPLX PRT SEIZ,NOT NTRCT,W/O STAT EPI Qualifiers: Epilepsy type: partial symptomatic (2) Frequent falls Code(s): R29.6 - REPEATED FALLS (3) ESRD (end stage renal disease) Code(s): N18.6 - END STAGE RENAL DISEASE Assessment/Plan Current Medications Generic Name Dose Route Start Last Admin Trade Name Freq PRN Reason Stop Dose Admin Albuterol Sulfate 2 puff 03/29/18 08:32 Ventolin Hfa Inhaler - IH BID PRN ASTHMA Amlodipine Besylate 10 mg 03/29/18 10:00 03/29/18 10:23 Norvasc - PO 10 mg DAILY MANDO Administration Atorvastatin Calcium 80 mg 03/29/18 22:00 Lipitor - PO HS MANDO Carvedilol 25 mg 03/29/18 10:00 03/29/18 10:23 Coreg - PO 25 mg BID MANDO Administration Insulin Aspart 1 vial 03/29/18 07:00 03/29/18 11:37 Novolog Vial Sliding Scale - SQ Not Given ACHS MANDO Protocol Loratadine 10 mg 03/29/18 10:00 03/29/18 10:23 Claritin - PO 10 mg DAILY MANDO Administration Sevelamer Carbonate 800 mg 03/29/18 12:00 03/29/18 11:36 Renvela - PO 800 mg TIDCM MANDO Administration Valproic Acid 750 mg 03/29/18 10:00 03/29/18 10:57 Depakene - PO 750 mg BID MANDO Administration Impression 1. ESRD 2. r/o CVA 3. DM 4. HLD 5. HTN 6. anemia 7. anxiety 8. seizure 9. s/p fall 10. obital wall fracture Plan - HD in am - will arrange for HD - no heparin on HD - has orbital wall fracture - epogen for anemia - 4 hrs, 2 k bath, epogen 1000, hectorol 3.5, 15 gauge 1 1/4 length - renal diabetic diet - monitor bp
--- NOTE | 2018-03-29 15:25 | PN ---
Teaching Attending Note Name of Resident: Romeo Tan ATTENDING PHYSICIAN STATEMENT I saw and evaluated the patient. I reviewed the resident's note and discussed the case with the resident. I agree with the resident's findings and plan as documented. SUBJECTIVE: Feels okay, some R facial pain. No headache/visual disturbance/limb numbness or weakness. No fever/chills. No dyspnea/nausea/vomiting. OBJECTIVE: Afebrile, Hemodynamically Stable. Last Vital Signs Temp Pulse Resp BP Pulse Ox 98.1 F 78 20 134/71 97 03/29/18 14:00 03/29/18 14:00 03/29/18 14:00 03/29/18 14:00 03/29/18 09:00 HEENT - R facial/periorbital swelling/bruising with maxillary tenderness. PARAG. EOMI Neuro - AAO x 3. Generalized decreased power R>L. Heart - S1, S2, RRR Lungs - clear to auscultation, no crackles/wheeze Abdomen - High BMI, soft, non-tender. Bowel Sounds normal. Extremities - AV Fistula R arm. no calf tenderness. Laboratory Results - last 24 hr 03/28/18 03/28/18 03/28/18 18:59 19:20 19:20 WBC 5.2 RBC 2.82 L Hgb 10.0 L Hct 28.8 L MCV 102.0 H MCH 35.4 H MCHC 34.7 RDW 14.5 Plt Count 135 MPV 10.0 D Absolute Neuts (auto) 3.2 Neutrophils % 61.7 Lymphocytes % 25.3 D Monocytes % 8.8 Eosinophils % 3.6 Basophils % 0.6 Nucleated RBC % 0 Retic Count Sodium 138 Potassium 3.8 Chloride 103 Carbon Dioxide 28 Anion Gap 6 L BUN 30 H Creatinine 6.2 H Creat Clearance w eGFR 7.12 POC Glucometer Random Glucose 110 H Calcium 8.5 Phosphorus Magnesium Total Bilirubin 0.4 AST 29 ALT 21 Alkaline Phosphatase 60 Troponin I 0.03 Total Protein 6.3 L Albumin 3.4 Vitamin B12 Serum Folate Urine Color Ltyellow Urine Appearance Slcloudy Urine pH 8.0 Ur Specific [place] 1.011 Urine Protein 2+ H Urine Glucose (UA) Negative Urine Ketones Negative Urine Blood 1+ H Urine Nitrite Negative Urine Bilirubin Negative Urine Urobilinogen Negative Ur Leukocyte Esterase Trace Urine WBC (Auto) 6 Urine RBC (Auto) <1 Ur Epithelial Cells Moderate Urine Bacteria Moderate Urine Mucus Rare Valproic Acid 03/28/18 03/29/18 03/29/18 20:30 06:00 06:00 WBC RBC Hgb Hct MCV MCH MCHC RDW Plt Count MPV Absolute Neuts (auto) Neutrophils % Lymphocytes % Monocytes % Eosinophils % Basophils % Nucleated RBC % Retic Count 0.56 Sodium 139 Potassium 3.7 Chloride 104 Carbon Dioxide 29 Anion Gap 7 L BUN 39 H Creatinine 7.4 H* Creat Clearance w eGFR 5.80 POC Glucometer Random Glucose 76 Calcium 8.5 Phosphorus 3.6 Magnesium 2.3 Total Bilirubin 0.3 AST 29 ALT 18 Alkaline Phosphatase 52 Troponin I Cancelled Total Protein 5.9 L Albumin 3.1 L Vitamin B12 1597 H Serum Folate 4 Urine Color Urine Appearance Urine pH Ur Specific [place] Urine Protein Urine Glucose (UA) Urine Ketones Urine Blood Urine Nitrite Urine Bilirubin Urine Urobilinogen Ur Leukocyte Esterase Urine WBC (Auto) Urine RBC (Auto) Ur Epithelial Cells Urine Bacteria Urine Mucus Valproic Acid 03/29/18 03/29/18 03/29/18 06:00 06:36 11:10 WBC 5.6 RBC 2.76 L Hgb 9.2 L Hct 28.7 L MCV 104.0 H MCH 33.2 MCHC 31.9 L RDW 14.7 Plt Count 116 L MPV 9.6 Absolute Neuts (auto) 3.1 Neutrophils % 54.5 Lymphocytes % 32.3 D Monocytes % 9.2 Eosinophils % 3.5 Basophils % 0.5 Nucleated RBC % 0 Retic Count Sodium Potassium Chloride Carbon Dioxide Anion Gap BUN Creatinine Creat Clearance w eGFR POC Glucometer 77 Random Glucose Calcium Phosphorus Magnesium Total Bilirubin AST ALT Alkaline Phosphatase Troponin I Total Protein Albumin Vitamin B12 Serum Folate Urine Color Urine Appearance Urine pH Ur Specific [place] Urine Protein Urine Glucose (UA) Urine Ketones Urine Blood Urine Nitrite Urine Bilirubin Urine Urobilinogen Ur Leukocyte Esterase Urine WBC (Auto) Urine RBC (Auto) Ur Epithelial Cells Urine Bacteria Urine Mucus Valproic Acid 22.9 L 03/29/18 11:36 WBC RBC Hgb Hct MCV MCH MCHC RDW Plt Count MPV Absolute Neuts (auto) Neutrophils % Lymphocytes % Monocytes % Eosinophils % Basophils % Nucleated RBC % Retic Count Sodium Potassium Chloride Carbon Dioxide Anion Gap BUN Creatinine Creat Clearance w eGFR POC Glucometer 121 Random Glucose Calcium Phosphorus Magnesium Total Bilirubin AST ALT Alkaline Phosphatase Troponin I Total Protein Albumin Vitamin B12 Serum Folate Urine Color Urine Appearance Urine pH Ur Specific [place] Urine Protein Urine Glucose (UA) Urine Ketones Urine Blood Urine Nitrite Urine Bilirubin Urine Urobilinogen Ur Leukocyte Esterase Urine WBC (Auto) Urine RBC (Auto) Ur Epithelial Cells Urine Bacteria Urine Mucus Valproic Acid Current Medications Generic Name Dose Route Start Last Admin Trade Name Freq PRN Reason Stop Dose Admin Albuterol Sulfate 2 puff 03/29/18 08:32 Ventolin Hfa Inhaler - IH BID PRN ASTHMA Amlodipine Besylate 10 mg 03/29/18 10:00 03/29/18 10:23 Norvasc - PO 10 mg DAILY MANDO Administration Atorvastatin Calcium 80 mg 03/29/18 22:00 Lipitor - PO HS MANDO Carvedilol 25 mg 03/29/18 10:00 03/29/18 10:23 Coreg - PO 25 mg BID MANDO Administration Epoetin Adi 2,000 unit 03/30/18 14:12 Epogen - IVPUSH 03/30/18 14:13 ONCE ONE Sodium Chloride 250 mls @ 3,000 mls/hr 03/29/18 14:12 Normal Saline - IV 03/30/18 14:12 PRN PRN Hypotension during Dialysis Insulin Aspart 1 vial 03/29/18 07:00 03/29/18 11:37 Novolog Vial Sliding Scale - SQ Not Given ACHS [facility] Protocol Loratadine 10 mg 03/29/18 10:00 03/29/18 10:23 Claritin - PO 10 mg DAILY MANDO Administration Sevelamer Carbonate 800 mg 03/29/18 12:00 03/29/18 11:36 Renvela - PO 800 mg TIDCM MANDO Administration Valproic Acid 750 mg 03/29/18 10:00 03/29/18 10:57 Depakene - PO 750 mg BID MANDO Administration ASSESSMENT AND PLAN: 52 year old female with ESRD on MWF, Hx CVA (residual R hemiparesis), Seizure Disorder, HTN, HLD, GERD, Asthma, Migraines, DM 2, L eye blindness, R carotid occlusion, recently discharged after admission for seizure (keprra changed to valproic acid), currently re-admitted with mechanical fall x 3. Patient denies any preceeding chest pain/palpitations/lightheadedness. She admits to head injury but denies any loss of consciousness or incontinence or tongue biting. Falls were witnessed and no report of tonic/clonic activity. Patient has been compliant with medications since discharge. Denies any decreased PO Intake, fevers, chills, chest pain, SOB, dysuria, or dizziness. Mother mentions that patient has prescription eye glasses however she is not compliant. Additionally, patient is suppose to use the wheelchair and only the walker when transitioning to the commode however patient is not compliant. CXR - no acute cardiopulmonary findings C-Spine XR - L Thyroid nodule, recommend Thyroid US Head CT - Encephalomalacia Facial CT - R face swelling with R orbital medial wall fracture with air/fluid levels R maxillary sinus. 1. R orbital medial wall fracture secondary to mechanical fall and head trauma EOMI, PARAG Soft tissue swelling+++ For transfer to acute care facility with OMS service for evaluation and recommendations. 2. Gait instability/Ambulatory dysfunction Multifactorial - sec to mostly prior CVA with R hemiparesis Will need Rehab on discharge 3. Seizure Disorder Recent admission for Seizure while on HD Keppra recently switched to valproic Acid Evaluated by Neuro - recommends repeat Head CT in 24-48 hours as well as regular neurochecks. 4. ESRD on MWF via R AV Fistula 5. Macrocytic Anemia Anemia, likely multifactorial including CKD MCV 104 B12 level 1597 Folate 4 May benefit from Hematology evaluation for Macrocytosis 6. DM 2 - Maintain on insulin s/scale. 7. HTN - Continue Coreg, Norvasc, Hydralazine. 8. HLD - Continue Lipitor 9.Hx CVA - Continue Aspirin, Lipitor. Medically Stable for transfer to [facility] for OMS eval for facial bone fracture.
--- NOTE | 2018-03-29 15:31 | DS ---
Physical Exam: SUBJECTIVE: Patient seen and examined at bedside this morning. Denies prodromal symptoms prior to her falls. States she slid down from seated position. Denies any shaking, bowel or bladder incontinence with the falls. She states she currently feels weak in bilateral upper and lower extremities. Denies headaches , changes in her vision, pain with extraocular movements. OBJECTIVE: Vital Signs Period Temp Pulse Resp BP Sys/[place] Pulse Ox Last 24 Hr 98.1 F-98.1 F 71-88 16-20 134-171/69-83 97-100 PHYSICAL EXAM GENERAL: The patient is awake, alert, and fully oriented, in no acute distress. HEENT: Sweling, ecchymosos over right eye. Conjunctival injection right eye. EOMI B/L without extraocular movement pain. Oropharynx clear without exudates, moist mucous membranes. Neck supple without lymphadenopathy. LUNGS: Breath sounds equal, clear to auscultation bilaterally. No wheezes, no crackles. No accessory muscle use. HEART: Regular rate and rhythm, S1, S2 without murmur, rub or gallop. ABDOMEN: Obese. Soft, nontender, nondistended. Normoactive bowel sounds X4 quadrants. No guarding, no rebound tenderness. No hepatosplenomegaly palpated or percussed. EXTREMITIES: 2+ radial pulses b/l, 1+ dorsalis pedis pulses b/l. Trace edema b/ l lower extremities. Right arm AV fistula. NEUROLOGICAL: Cranial nerves II through XII grossly intact. Speech is slow, with some difficulty in expressing herself. Strength 3/5 right upper extremity 4 /5 left upper extremity. Strength 3/5 right lower extremity, 4/5 left lower extremity. Sensation grossly intact B/L upper and lower extremities. PSYCH: Mood and affect appropriate upon my encounter. SKIN: Warm, dry LABS Laboratory Results - last 24 hr 03/28/18 03/28/18 03/28/18 18:59 19:20 19:20 WBC 5.2 RBC 2.82 L Hgb 10.0 L Hct 28.8 L MCV 102.0 H MCH 35.4 H MCHC 34.7 RDW 14.5 Plt Count 135 MPV 10.0 D Absolute Neuts (auto) 3.2 Neutrophils % 61.7 Lymphocytes % 25.3 D Monocytes % 8.8 Eosinophils % 3.6 Basophils % 0.6 Nucleated RBC % 0 Retic Count Sodium 138 Potassium 3.8 Chloride 103 Carbon Dioxide 28 Anion Gap 6 L BUN 30 H Creatinine 6.2 H Creat Clearance w eGFR 7.12 POC Glucometer Random Glucose 110 H Calcium 8.5 Phosphorus Magnesium Total Bilirubin 0.4 AST 29 ALT 21 Alkaline Phosphatase 60 Troponin I 0.03 Total Protein 6.3 L Albumin 3.4 Vitamin B12 Serum Folate Urine Color Ltyellow Urine Appearance Slcloudy Urine pH 8.0 Ur Specific [place] 1.011 Urine Protein 2+ H Urine Glucose (UA) Negative Urine Ketones Negative Urine Blood 1+ H Urine Nitrite Negative Urine Bilirubin Negative Urine Urobilinogen Negative Ur Leukocyte Esterase Trace Urine WBC (Auto) 6 Urine RBC (Auto) <1 Ur Epithelial Cells Moderate Urine Bacteria Moderate Urine Mucus Rare Valproic Acid 03/28/18 03/29/18 03/29/18 20:30 06:00 06:00 WBC RBC Hgb Hct MCV MCH MCHC RDW Plt Count MPV Absolute Neuts (auto) Neutrophils % Lymphocytes % Monocytes % Eosinophils % Basophils % Nucleated RBC % Retic Count 0.56 Sodium 139 Potassium 3.7 Chloride 104 Carbon Dioxide 29 Anion Gap 7 L BUN 39 H Creatinine 7.4 H* Creat Clearance w eGFR 5.80 POC Glucometer Random Glucose 76 Calcium 8.5 Phosphorus 3.6 Magnesium 2.3 Total Bilirubin 0.3 AST 29 ALT 18 Alkaline Phosphatase 52 Troponin I Cancelled Total Protein 5.9 L Albumin 3.1 L Vitamin B12 1597 H Serum Folate 4 Urine Color Urine Appearance Urine pH Ur Specific [place] Urine Protein Urine Glucose (UA) Urine Ketones Urine Blood Urine Nitrite Urine Bilirubin Urine Urobilinogen Ur Leukocyte Esterase Urine WBC (Auto) Urine RBC (Auto) Ur Epithelial Cells Urine Bacteria Urine Mucus Valproic Acid 03/29/18 03/29/18 03/29/18 06:00 06:36 11:10 WBC 5.6 RBC 2.76 L Hgb 9.2 L Hct 28.7 L MCV 104.0 H MCH 33.2 MCHC 31.9 L RDW 14.7 Plt Count 116 L MPV 9.6 Absolute Neuts (auto) 3.1 Neutrophils % 54.5 Lymphocytes % 32.3 D Monocytes % 9.2 Eosinophils % 3.5 Basophils % 0.5 Nucleated RBC % 0 Retic Count Sodium Potassium Chloride Carbon Dioxide Anion Gap BUN Creatinine Creat Clearance w eGFR POC Glucometer 77 Random Glucose Calcium Phosphorus Magnesium Total Bilirubin AST ALT Alkaline Phosphatase Troponin I Total Protein Albumin Vitamin B12 Serum Folate Urine Color Urine Appearance Urine pH Ur Specific [place] Urine Protein Urine Glucose (UA) Urine Ketones Urine Blood Urine Nitrite Urine Bilirubin Urine Urobilinogen Ur Leukocyte Esterase Urine WBC (Auto) Urine RBC (Auto) Ur Epithelial Cells Urine Bacteria Urine Mucus Valproic Acid 22.9 L 03/29/18 11:36 WBC RBC Hgb Hct MCV MCH MCHC RDW Plt Count MPV Absolute Neuts (auto) Neutrophils % Lymphocytes % Monocytes % Eosinophils % Basophils % Nucleated RBC % Retic Count Sodium Potassium Chloride Carbon Dioxide Anion Gap BUN Creatinine Creat Clearance w eGFR POC Glucometer 121 Random Glucose Calcium Phosphorus Magnesium Total Bilirubin AST ALT Alkaline Phosphatase Troponin I Total Protein Albumin Vitamin B12 Serum Folate Urine Color Urine Appearance Urine pH Ur Specific [place] Urine Protein Urine Glucose (UA) Urine Ketones Urine Blood Urine Nitrite Urine Bilirubin Urine Urobilinogen Ur Leukocyte Esterase Urine WBC (Auto) Urine RBC (Auto) Ur Epithelial Cells Urine Bacteria Urine Mucus Valproic Acid HOSPITAL COURSE: Date of Admission:03/29/18 Date of Discharge: 03/29/18 Patient is a 52 year old female with history of ESRD on HD (Mon/ Mon/ Mon), prior stroke with residual right sided hemiparesis, seizure disorder, hypertension, asthma, insulin dependent diabetes mellitus, migraines, presented after numerous falls within 24 hours. She was recently discharged after an admission for seizures during her dialysis treatment, and her Keppra was switched to Valproic acid with neurologist recommendation. Patient was discharged with Valproic acid 750mg BID, and patient states she was compliant with this medication after discharge. At prior admission, she refused placement to a detention facility despite difficulties with ambulation (patient was seen by PT), and was discharged home with [facility]. Upon re-admission, patient was noted to have ecchymosis over right eye, with conjunctival injection. CT scan of brain showed encephalomalaxia rightposterior frontal and parietal lobe. No mass lesion, or gross acute infarct noted. Calvarium intact. CT facial bones showed right orbital medial wall facture. B/L eye globes intact. CT cervical spine showed no fractures. Case was discussed with neurologist, and patient reinstated on home dose Valproic Acid. Neurochecks every 2 hours. Patient is being transferred to [facility] for higher level of care, as she requires evaluation by Maxillofacial surgeon. Minutes to complete discharge: 45 Discharge Summary Reason For Visit: RECURRENT FALLS,WEAKNESS Current Active Problems Complex partial seizure (Acute) Frequent falls (Acute) Nasal bone fracture (Acute) Weakness (Acute) Condition: Guarded - Instructions Diet, Activity, Other Instructions: You were admitted to hospital for numerous falls. Your CT of your head showed an orbital fracture, and you are being transferred to [facility] for higher level of care, and evaluation by maxillofacial surgeon, and acrylic fabricator. Please follow discharge instructions, medication and follow up recommendations from the [facility] physicians. Follow up with your primary care provider within two- three days of discharge. Follow up with your neurologist within two - three days of discharge. A referral to Dr. Pelayo has been provided for you. You will continue receiving hemodialysis while hospitalized, and at [facility] in [place], [place] Monday, Monday, Monday via right arm AV fistula as outpaitent. [facility]: Please call [facility] to reinstate he hemodialysis Monday, Monday, Monday upon discharge. Referrals: Johny Pelayo MD [Staff Physician] - Sebastián Parr MD [Primary Care Provider] - Disposition: TRANSFER ACUTE CARE/OTHER HOSP - Home Medications Comprehensive Discharge Medication List: Ambulatory Orders Albuterol Sulfate Inhaler - [Ventolin HFA Inhaler -] 2 inh PO BID PRN 08/03/16 Atorvastatin Ca [Lipitor] 80 mg PO HS 08/03/16 Furosemide [Lasix] 40 mg PO TUTH 08/03/16 Sennosides [Senna] 2 tab PO DAILY 08/03/16 clonazePAM [Klonopin -] 0.5 mg PO BID 08/03/16 Clopidogrel Bisulfate [Plavix -] 75 mg PO DAILY 08/26/16 Aspirin Coated [Ecotrin -] 325 mg PO DAILY 11/07/16 Amlodipine Besylate [Norvasc -] 10 mg PO DAILY #30 tablet 01/09/17 Insulin Sliding Scale [Novolog Vial Sliding Scale -] See Protocol SQ ACHS #30 pen 01/09/17 Carvedilol [Coreg] 25 mg PO BID #60 tablet 01/11/17 Insulin Glargine,Hum.rec.anlog [Lantus (10mL VIAL) -] 7 units SQ HS #1 vial Cetirizine HCl [Zyrtec -] 10 mg PO DAILY 11/09/17 Hydralazine HCl 50 mg PO TUTH 03/22/18 Linaclotide [Linzess] 145 mcg PO DAILY 03/22/18 Polyethylene Glycol 3350 [Miralax 119 gm Btl -] 17 gm PO DAILY 03/22/18 Sevelamer Carbonate [Renvela -] 800 mg PO AC 03/22/18 Insulin Sliding Scale [Novolog Vial Sliding Scale -] 1 vial SQ ACHS units 03/26 Valproic Acid [Depakene -] 750 mg PO BID capsule 03/26/18 Valproic Acid [Depakene] 750 mg PO Q12H 30 Days #180 capsule 03/26/18 This patient is new to me today: No Emergency Visit: No Critical Care patient: Yes Total Critical Care Time (in minutes): 35 Critical Care Statement: The care of this patient involved high complexity decision making to prevent further life threatening deterioration of the patient 's condition and/or to evaluate & treat vital organ system(s) failure or risk of failure. - Discharge Referral Referred to [facility] Med [facility] No
--- NOTE | 2018-03-29 16:20 | EKG ---
Test Reason : Blood Pressure : / mmHG Vent. Rate : 074 BPM Atrial Rate : 074 BPM P-R Int : 172 ms QRS Dur : 074 ms QT Int : 408 ms P-R-T Axes : 027 000 028 degrees QTc Int : 452 ms NORMAL SINUS RHYTHM LOW VOLTAGE QRS POSSIBLE INFERIOR INFARCT , AGE UNDETERMINED CANNOT RULE OUT ANTERIOR INFARCT , AGE UNDETERMINED ABNORMAL ECG WHEN COMPARED WITH ECG OF 21-MAR-2018 18:04, NO SIGNIFICANT CHANGE WAS FOUND Confirmed by SUE MATTA, CHERI ([id number]) on 03/29/2018 4:19:43 PM Referred By: Confirmed By:CHERI ROGERS MD
[2018-03-29] MEDS ORDERED: ATORVASTATIN CA 80 MG TABLET (FP) PO SCH (22:00)
[2018-03-30] MEDS: INSULIN SLIDING SCALE (NOVOLOG) 1 VIAL SQ SCH ×3 (06:13→17:48)
[2018-03-30] MEDS: SEVELAMER CARBONATE 800 MG TAB (FP) PO SCH ×3 (08:51→17:46)
[2018-03-30] MEDS ORDERED: PT OWN MED DRAWER 7, Y5N ONE (09:49)
[2018-03-30] MEDS: amLODIPine BESYLATE 10 MG TABLET (FP) PO SCH (09:50)
[2018-03-30] MEDS: LORATADINE 10 MG TABLET PO SCH (09:50)
[2018-03-30] MEDS: CARVEDILOL 25 MG TABLET (FP) PO SCH (09:50)
[2018-03-30] MEDS: VALPROIC ACID 250 MG CAPSULE PO SCH (09:51)
[2018-03-30 10:29] LABS: HEMATOCRIT 27.7 % (32.4-45.2); HEMOGLOBIN 9.5 GM/dL (10.7-15.3); MCH 35.3 pg (25.7-33.7); MCHC 34.2 g/dl (32.0-36.0); MEAN CELL VOLUME 103.4 fl (80-96); MEAN PLT VOLUME 10.5 fl (7.5-11.1); PLATELET COUNT 135 K/MM3 (134-434); RBC 2.68 M/mm3 (3.60-5.2); RDW 14.8 % (11.6-15.6); WHITE BLOOD COUNT 5.7 K/mm3 (4.0-10.0)
[2018-03-30 11:02] LABS: ANION GAP 10 MMOL/L (8-16); BLOOD UREA NITROGEN 60 mg/dL (7-18); CALCIUM 8.6 mg/dL (8.5-10.1); CHLORIDE 103 mmol/L (98-107); CO2 26 mmol/L (21-32); GLUCOSE,RANDOM 80 mg/dL (74-106); POTASSIUM 4.6 mmol/L (3.5-5.1); SODIUM 139 mmol/L (136-145)
[2018-03-30 12:09] LABS: CREATININE 9.6 mg/dL (0.55-1.3)
[2018-03-30] MEDS ORDERED: EPOETIN ALFA 2,000 UNIT/1 ML VIAL IVPUSH ONE (12:30)
--- NOTE | 2018-03-30 15:00 | PN ---
Progress Note, Physician History of Present Illness: Pt seen and examined on HD. She is tolerating HD. She denies shortness of breath. - Current Medication List Current Medications: Active Medications Albuterol Sulfate (Ventolin Hfa Inhaler -) 2 puff IH BID PRN PRN Reason: ASTHMA Amlodipine Besylate (Norvasc -) 10 mg PO DAILY [facility] Last Admin: 03/30/18 09:50 Dose: 10 mg Atorvastatin Calcium (Lipitor -) 80 mg PO HS [facility] Last Admin: 03/29/18 22:16 Dose: 80 mg Carvedilol (Coreg -) 25 mg PO BID [facility] Last Admin: 03/30/18 09:50 Dose: 25 mg Insulin Aspart (Novolog Vial Sliding Scale -) 1 vial SQ ACHS [facility]; Protocol Last Admin: 03/30/18 13:32 Dose: Not Given Loratadine (Claritin -) 10 mg PO DAILY [facility] Last Admin: 03/30/18 09:50 Dose: 10 mg Sevelamer Carbonate (Renvela -) 800 mg PO TIDCM [facility] Last Admin: 03/30/18 13:32 Dose: Not Given Valproic Acid (Depakene -) 750 mg PO BID [facility] Last Admin: 03/30/18 09:51 Dose: 750 mg - Objective Vital Signs: Vital Signs Temperature 98.4 F 03/30/18 10:40 Pulse Rate 212 H 03/30/18 12:15 Respiratory Rate 18 03/30/18 12:15 Blood Pressure 136/81 03/30/18 12:15 O2 Sat by Pulse Oximetry (%) 97 03/29/18 21:00 Constitutional: Yes: Calm Cardiovascular: Yes: S1, S2 Respiratory: Yes: CTA Bilaterally Gastrointestinal: Yes: Soft Genitourinary: Yes: Incontinence Musculoskeletal: Yes: Muscle Weakness Edema: No Neurological: Yes: Oriented, Pre-Existing Deficit Labs: CBC, BMP 03/30/18 10:15 03/30/18 10:15 Problem List - Problems (1) Complex partial seizure Code(s): G40.209 - LOCAL-REL SYMPTC EPI W CMPLX PRT SEIZ,NOT NTRCT,W/O STAT EPI Qualifiers: Epilepsy type: partial symptomatic (2) Frequent falls Code(s): R29.6 - REPEATED FALLS (3) ESRD (end stage renal disease) Code(s): N18.6 - END STAGE RENAL DISEASE Assessment/Plan Current Medications Generic Name Dose Route Start Last Admin Trade Name Bella PRN Reason Stop Dose Admin Albuterol Sulfate 2 puff 03/29/18 08:32 Ventolin Hfa Inhaler - IH BID PRN ASTHMA Amlodipine Besylate 10 mg 03/29/18 10:00 03/30/18 09:50 Norvasc - PO 10 mg DAILY [facility] Administration Atorvastatin Calcium 80 mg 03/29/18 22:00 03/29/18 22:16 Lipitor - PO 80 mg HS [facility] Administration Carvedilol 25 mg 03/29/18 10:00 03/30/18 09:50 Coreg - PO 25 mg BID [facility] Administration Insulin Aspart 1 vial 03/29/18 07:00 03/30/18 13:32 Novolog Vial Sliding Scale - SQ Not Given ACHS [facility] Protocol Loratadine 10 mg 03/29/18 10:00 03/30/18 09:50 Claritin - PO 10 mg DAILY [facility] Administration Sevelamer Carbonate 800 mg 03/29/18 12:00 03/30/18 13:32 Renvela - PO Not Given TIDCM [facility] Valproic Acid 750 mg 03/29/18 10:00 03/30/18 09:51 Depakene - PO 750 mg BID [facility] Administration Impression 1. ESRD 2. r/o CVA 3. DM 4. HLD 5. HTN 6. anemia 7. anxiety 8. seizure 9. s/p fall 10. obital wall fracture Plan - pt tolerating HD - she asked about her avf ultrasound, I spoke to Dr Ch and he said that it was stable. - no heparin on HD - has orbital wall fracture - epogen for anemia - 4 hrs, 2 k bath, epogen 1000, hectorol 3.5, 15 gauge 1 / length - renal diabetic diet - monitor bp
[2018-03-30 15:43] VITALS: TEMP 97.9
[2018-03-30 17:50] VITALS: BP 120/79; PULSE 74
--- NOTE | 2018-03-30 19:41 | PN ---
Teaching Attending Note Name of Resident: Romeo Tan ATTENDING PHYSICIAN STATEMENT I saw and evaluated the patient. I reviewed the resident's note and discussed the case with the resident. I agree with the resident's findings and plan as documented. SUBJECTIVE: Feels okay, complains of R facial discomfort. No visual disturbance. No fever/chills. OBJECTIVE: Afebrile/Hemodynamically Stable. Last Vital Signs Temp Pulse Resp BP Pulse Ox 97.9 F 74 18 120/79 97 03/30/18 11:00 03/30/18 15:00 03/30/18 15:00 03/30/18 15:00 03/30/18 09:00 HEENT - R facial/periorbital swelling/bruising with maxillary tenderness. PARAG. EOMI Neuro - AAO x 3. Generalized decreased power R>L. Heart - S1, S2, RRR Lungs - clear to auscultation, no crackles/wheeze Abdomen - High BMI, soft, non-tender. Bowel Sounds normal. Extremities - AV Fistula R arm. no calf tenderness. Laboratory Results - last 24 hr 03/29/18 03/30/18 03/30/18 20:24 06:12 10:15 WBC RBC Hgb Hct MCV MCH MCHC RDW Plt Count MPV Sodium 139 Potassium 4.6 Chloride 103 Carbon Dioxide 26 Anion Gap 10 BUN 60 H Creatinine 9.6 H* Creat Clearance w eGFR 4.30 POC Glucometer 160 71 Random Glucose 80 Calcium 8.6 03/30/18 03/30/18 10:15 17:48 WBC 5.7 RBC 2.68 L Hgb 9.5 L Hct 27.7 L MCV 103.4 H MCH 35.3 H MCHC 34.2 RDW 14.8 Plt Count 135 MPV 10.5 Sodium Potassium Chloride Carbon Dioxide Anion Gap BUN Creatinine Creat Clearance w eGFR POC Glucometer 143 Random Glucose Calcium ASSESSMENT AND PLAN: 52 year old female with ESRD on MWF, Hx CVA (residual R hemiparesis), Seizure Disorder, HTN, HLD, GERD, Asthma, Migraines, DM 2, L eye blindness, R carotid occlusion, recently discharged after admission for seizure (keprra changed to valproic acid), currently re-admitted with mechanical fall x 3. Patient denies any preceeding chest pain/palpitations/lightheadedness. She admits to head injury but denies any loss of consciousness or incontinence or tongue biting. Falls were witnessed and no report of tonic/clonic activity. Patient has been compliant with medications since discharge. Denies any decreased PO Intake, fevers, chills, chest pain, SOB, dysuria, or dizziness. Mother mentions that patient has prescription eye glasses however she is not compliant. Additionally, patient is suppose to use the wheelchair and only the walker when transitioning to the commode however patient is not compliant. CXR - no acute cardiopulmonary findings C-Spine XR - L Thyroid nodule, recommend Thyroid US Head CT - Encephalomalacia Facial CT - R face swelling with R orbital medial wall fracture with air/fluid levels R maxillary sinus. 1. R orbital medial wall fracture secondary to mechanical fall and head trauma EOMI, PARAG Soft tissue swelling+++ Accepted to [facility] for OMS evaluation and recommendations. 2. Gait instability/Ambulatory dysfunction Multifactorial - sec to mostly prior CVA with R hemiparesis Will need Rehab on discharge 3. Seizure Disorder Recent admission for Seizure while on HD Keppra recently switched to valproic Acid Evaluated by Neuro - recommends repeat Head CT in 24-48 hours as well as regular neurochecks. 4. ESRD on MWF via R AV Fistula HD today 03/30/18 5. Macrocytic Anemia Anemia, likely multifactorial including CKD MCV 104 B12 level 1597 Folate 4 May benefit from Hematology evaluation for Macrocytosis 6. DM 2 - Maintain on insulin s/scale. 7. HTN - Continue Coreg, Norvasc, Hydralazine. 8. HLD - Continue Lipitor 9.Hx CVA - Continue Aspirin, Lipitor. Medically Stable for transfer to [facility] for OMS eval for facial bone fracture.
== END 2018-03-30 18:20 | disposition short-term general hospital (02) | DRG 564 ==
LOC: JER 17:19 → JERBED 03-29 01:21 → J8W 03-29 03:43
PROVIDERS: ADMIT Internal Medicine
PROC: 5A1D70Z Performance of Urinary Filtration, Intermittent, Less than 6 Hours Per Day (ICD-10-PCS; principal; 2018-03-30)
DX: S02.81XA Fracture of other specified skull and facial bones, right side, initial encounter for closed fracture (principal); N18.6 End stage renal disease; I12.0 Hypertensive chronic kidney disease with stage 5 chronic kidney disease or end stage renal disease; G81.91 Hemiplegia, unspecified affecting right dominant side; G40.209 Localization-related (focal) (partial) symptomatic epilepsy and epileptic syndromes with complex partial seizures, not intractable, without status epilepticus; G93.89 Other specified disorders of brain; G43.909 Migraine, unspecified, not intractable, without status migrainosus; J45.909 Unspecified asthma, uncomplicated; E11.51 Type 2 diabetes mellitus with diabetic peripheral angiopathy without gangrene; R29.6 Repeated falls; K21.9 Gastro-esophageal reflux disease without esophagitis; I65.21 Occlusion and stenosis of right carotid artery; E78.00 Pure hypercholesterolemia, unspecified; R26.81 Unsteadiness on feet; D64.9 Anemia, unspecified; G47.30 Sleep apnea, unspecified; K59.00 Constipation, unspecified; F41.9 Anxiety disorder, unspecified; H54.40 Blindness, one eye, unspecified eye; S05.11XA Contusion of eyeball and orbital tissues, right eye, initial encounter; G40.909 Epilepsy, unspecified, not intractable, without status epilepticus; E11.22 Type 2 diabetes mellitus with diabetic chronic kidney disease; Z99.2 Dependence on renal dialysis; W18.39XA Other fall on same level, initial encounter; Y92.89 Other specified places as the place of occurrence of the external cause; Y99.8 Other external cause status
CPT/HCPCS: 36415; 70450-TC; 70486-TC; 71045-TC-FY; 72125-TC; 80048; 80053; 80164; 81003; 81015; 82607; 82746; 82962; 83735; 84100; 84484; 85025; 85027; 85044; 87086; 93005; 93010; 97161-GP; 99285-25; J0885

== ENCOUNTER 2018-05-02 11:32 | Inpatient (IN) | payer OTHER ==
--- NOTE | 2018-05-02 12:32 | PDOC ---
History of Present Illness - General History Source: Family Exam Limitations: Clinical Condition - History of Present Illness Initial Comments: 05/02/18 13:55 The patient is a 52 year old female, with a significant past medical history of seizures, HTN, TIA/Strokes, ESRD (M/W/F dialysis), IDDM , who presents to the emergency department with one week complaint of hallucinations. The patient states she started to see things that are not really there. She states she thinks the hallucinations are being caused by her parkinsons medications. She also reports a right sided headache today which feels unlike her typical morning migraines. She states she was sent from dialysis before having treatment secondary to being disoriented, leaning to one side, and vomiting prior to starting treatment as per patients cousin at bedside. The patient denies chest pain, shortness of breath,and dizziness. The patient denies fever, chills, nausea, vomit, diarrhea and constipation. The patient denies dysuria, frequency, urgency and hematuria. <Nichole Lopez - Last Filed: 05/02/18 14:08> <Jewel Barnes - Last Filed: 05/09/18 17:31> - General Chief Complaint: Altered Mental Status Stated Complaint: AMS Time Seen by Provider: 05/02/18 12:32 NIH Stroke Scale - Last Known Well Date/Time & Onset Date Last Known Well: 04/18/18 Time Last Known Well: 09:00 - Initial Evaluation Level of consciousness: Alert Ask patient the month and their age: Answers both correctly Ask patient to open & close eyes; make fist and let go: Obeys both correctly Best gaze (horizontal eye movement): Normal Visual field testing: No visual field loss Facial paresis (Show teeth/raise eyebrows/close eyes tight): Minor paralysis ( flattened nasolabial fold, asymmetry on smiling) Motor Function: Left Arm: Normal Motor Function: Right Arm: Some effort against gravity Motor Function: Left Leg: Normal (extends leg 30 degrees for 5 seconds without drift) Motor Function: Right Leg: Drift Limb Ataxia: Present in one limb Sensory(Use pinprick test arms,legs,trunk,face/side to side): Normal Best language (Describe picture, name items, read sentences): No Aphasia Dysarthria (read several words): Normal articulation Extinction and Inattention: No abnormality - Total Score NIH Stroke Scale Score: 5 <CameronJewel - Last Filed: 05/09/18 17:31> Past History <Nichole Lopez - Last Filed: 05/02/18 14:08> - Past Medical History Anemia: Yes Asthma: Yes Cancer: No Cardiac Disorders: No CVA: Yes (TIA 2016, last 2016, tia x7) COPD: No CHF: No Dementia: No Diabetes: Yes Dialysis: Yes (m,w,f) GI Disorders: Yes (gerd) Disorders: No HTN: Yes Hypercholesterolemia: Yes Liver Disease: No Psychiatric Problems: Yes (ANXIETY.) Seizures: Yes Thyroid Disease: No - Surgical History Abdominal Surgery: No Appendectomy: No Cardiac Surgery: Yes (AV graft right arm) Cholecystectomy: No Lung Surgery: No Neurologic Surgery: No Orthopedic Surgery: No - Immunization History Td Vaccination: No TDAP Vaccination: No Immunization Up to Date: Yes - Suicide/Smoking/Psychosocial Hx Smoking Status: No Smoking History: Unknown if ever smoked Have you smoked in the past 12 months: No Number of Cigarettes Smoked Daily: 0 Information on smoking cessation initiated: No Hx Alcohol Use: No Drug/Substance Use Hx: No Substance Use Type: None, Alcohol Hx Substance Use Treatment: No <CameronJewel - Last Filed: 05/09/18 17:31> - Past Medical History Allergies/Adverse Reactions: Allergies Allergy/AdvReac Type Severity Reaction Status Date / Time amoxicillin [Amoxicillin] Allergy Severe Itching Verified 05/05/18 12:20 hydrocodone bitartrate Allergy Severe Hives,ITCHI Verified 05/05/18 12:20 [From Vicodin] NG morphine Allergy Severe Itching Verified 05/05/18 12:20 neomycin [Neomycin] Allergy Severe Swelling Verified 05/05/18 12:20 oxycodone HCl [From Percocet] Allergy Severe Itching,HIV Verified 05/05/18 12:20 ES rofecoxib [From Vioxx] Allergy Severe Hives Verified 05/05/18 12:20 Sulfa (Sulfonamide Allergy Severe sclera Verified 05/05/18 12:20 Antibiotics) reddened,ITCHING tramadol Allergy Severe Vomiting Verified 05/05/18 12:20 tomato Allergy Verified 05/05/18 12:20 grapefruit [Grapefruit] AdvReac Severe CAN'T TAKE Verified 05/05/18 12:20 BECAUSE OF MEDICATIONS vancomycin AdvReac Mild red man Verified 05/05/18 12:20 syndrome Heparin Analogues AdvReac Unknown Verified 05/05/18 12:20 [Heparin Agents] flu shot Allergy Severe GETS FLU Uncoded 05/05/18 12:20 SYMPTOMS grape juice AdvReac Severe Uncoded 05/05/18 12:20 Home Medications: Ambulatory Orders Albuterol 0.083% Nebulizer Bonita [Ventolin 0.083% Nebulizer Soln -] 1 amp NEB DAILY 05/02/18 Amlodipine Besylate [Norvasc -] 10 mg PO DAILY 05/02/18 Aspirin [Aspirin EC] 325 mg PO DAILY 05/02/18 Atorvastatin Ca [Lipitor] 80 mg PO HS 05/02/18 Bupropion HCl [Wellbutrin Xl] 300 mg PO HS 05/02/18 Carvedilol [Coreg -] 25 mg PO BID 05/02/18 Clopidogrel Bisulfate [Plavix] 75 mg PO DAILY 05/02/18 Folic Acid/Vit B Complex and C [Folbee Plus Tablet] 5 mg PO DAILY 05/02/18 Furosemide [Lasix] 40 mg PO BID 05/02/18 Linaclotide [Linzess] 145 mcg PO DAILY 05/02/18 Sennosides [Senna] 17.2 mg GT HS 05/02/18 Sevelamer Carbonate [Renvela -] 800 mg PO TID 05/02/18 Topiramate [Topiramate ER] 50 mg PO BID 05/02/18 clonazePAM [Klonopin -] 0.5 mg PO BID 05/02/18 levETIRAcetam [Keppra -] 500 mg PO BID 05/02/18 Review of Systems - Review of Systems Able to Perform ROS?: Yes Comments:: 05/02/18 13:55 CONSTITUTIONAL: No fever, no chills, no fatigue EYES: No visual changes ENT: No ear pain, no sore throat CARDIOVASCULAR: No chest pain, no palpitations RESPIRATORY: No cough, no SOB GI: No abdominal pain, no nausea, no vomiting, no constipation, no diarrhea GENITOURINARY: No dysuria, no frequency, no hematuria MUSKULOSKELETAL: No backpain, no joint pain, no myalgias SKIN: No rash NEURO: No headache <Nichole Lopez - Last Filed: 05/02/18 14:08> *Physical Exam - Vital Signs Last Vital Signs Temp Pulse Resp BP Pulse Ox 97.4 F L 64 18 113/65 99 05/02/18 11:57 05/02/18 11:57 05/02/18 11:57 05/02/18 11:57 05/02/18 11:57 <Nichole Lopez - Last Filed: 05/02/18 14:08> - Vital Signs Last Vital Signs Temp Pulse Resp BP Pulse Ox 97.4 F L 64 18 113/65 99 05/02/18 11:57 05/02/18 11:57 05/02/18 11:57 05/02/18 11:57 05/02/18 11:57 - Physical Exam Comments: 05/02/18 15:04 EXAMINATION CONSTITUTIONAL: awake, alert, obese, in no apparent distress HEAD: Normocephalic; atraumatic EYES: pupils: round, pinpoint; pt is blind in the left eye; able to see hand movt on the right; ENMT: + flattening of r nasolabial fold; poor dentition NECK: Supple; non-tender; no bruits CARD: Normal S1, S2; no murmurs, rubs, or gallops RESP: Normal chest excursion with respiration; breath sounds clear and equal bilaterally; no wheezes, rhonchi, or rales ABD: Soft, non-distended; non-tender; no palpable organomegaly, no palpable hernias EXT: RUE held in flexion; limited ROM on the right due to weakness; no edema SKIN: Warm, dry, no rash NEURO: + RUE: 3/5; LUE: 5/5; + RLE: 4/5; LLE: 5/5; pt is wheal chair bound; + pronation drift on the left <Jewel Barnes - Last Filed: 05/09/18 17:31> Moderate Sedation - Procedure Monitoring Vital Signs: Procedure Monitoring Vital Signs Temperature 97.4 F L 05/02/18 11:57 Pulse Rate 64 05/02/18 11:57 Respiratory Rate 18 05/02/18 11:57 Blood Pressure 113/65 05/02/18 11:57 O2 Sat by Pulse Oximetry (%) 99 05/02/18 11:57 <Nichole Lopez - Last Filed: 05/02/18 14:08> - Procedure Monitoring Vital Signs: Procedure Monitoring Vital Signs Temperature 97.4 F L 05/02/18 11:57 Pulse Rate 64 05/02/18 11:57 Respiratory Rate 18 05/02/18 11:57 Blood Pressure 113/65 05/02/18 11:57 O2 Sat by Pulse Oximetry (%) 99 05/02/18 11:57 <Jewel Barnes - Last Filed: 05/09/18 17:31> ED Treatment Course - LABORATORY CBC & Chemistry Diagram: 05/02/18 13:25 05/02/18 13:25 <Nichole Lopez - Last Filed: 05/02/18 14:08> - LABORATORY CBC & Chemistry Diagram: 05/02/18 13:25 05/03/18 15:35 <Jewel Barnes - Last Filed: 05/09/18 17:31> Medical Decision Making - Medical Decision Making 05/02/18 15:09 52-year-old female with multiple comorbidities, history of end-stage renal disease on hemodialysis referred from hemodialysis prior to receiving her dialysis session on the day of arrival due to altered mental status, several episodes of nonbloody, nonbilious vomiting, hallucinations and right upper and lower extremity weakness. Patient's had upper and lower extremity weakness for the past 2 weeks but it has not been evaluated to this day. Patient states that her hallucinations mostly visual unlikely related to her Parkinson's medication. Patient denies suicidal homicidal ideations. In the ER, patient is hemodynamically stable with right hemiparesis. I suspect subacute CVA. Will obtain CT of head. There is no indication for emergent dialysis as there is no evidence of hyperacute T waves on the EKG or evidence of acute pulmonary edema. We'll obtain CBC/CMP. We'll consult renal and neurology. Will admit. <Jewel aBrnes - Last Filed: 05/09/18 17:31> *DC/Admit/Observation/Transfer - Attestations Scribe Attestion: 05/02/18 13:56 Documentation prepared by Nichole Lopez, acting as medical physics professor for Jewel Barnes MD <Nichole Lopez - Last Filed: 05/02/18 14:08> <Jewel Barnes - Last Filed: 05/09/18 17:31> Diagnosis at time of Disposition: Hallucinations, ESRD (end stage renal disease) - Discharge Dispostion Condition at time of disposition: Stable
[2018-05-02] MEDS ORDERED: SODIUM CHLORIDE 1,000 ML IV SCH (13:30)
[2018-05-02 14:10] LABS: BASO % 0.8 % (0-2.0); EOS % 3.6 % (0-4.5); HEMATOCRIT 31.2 % (32.4-45.2); HEMOGLOBIN 10.7 GM/dL (10.7-15.3); LYMPH % 30.3 % (8-40); MCH 38.2 pg (25.7-33.7); MCHC 34.3 g/dl (32.0-36.0); MEAN CELL VOLUME 111.5 fl (80-96); MEAN PLT VOLUME 10.6 fl (7.5-11.1); MONO % 10.2 % (3.8-10.2); NEUT % 55.1 % (42.8-82.8); PLATELET COUNT 109 K/MM3 (134-434); RDW 17.9 % (11.6-15.6); WHITE BLOOD COUNT 3.7 K/mm3 (4.0-10.0)
[2018-05-02 14:28] LABS: INR 1.07 (0.83-1.09); PROTHROMBIN TIME (PATIENT) 12.6 SEC (9.7-13.0)
[2018-05-02 14:42] LABS: URINE APPEARANCE SLCLOUDY; URINE BILIRUBIN NEGATIVE (<2.0 mg/dL); URINE COLOR YELLOW; URINE GLUCOSE (UA) NEGATIVE (NEGATIVE); URINE KETONE NEGATIVE (NEGATIVE); URINE LEUK ESTERASE 1+ (NEGATIVE); URINE NITRITE NEGATIVE (NEGATIVE); URINE PROTEIN 2+ (NEGATIVE); URINE UROBILINOGEN NEGATIVE mg/dL (0.2-1.0)
[2018-05-02 14:45] LABS: EPI CELLS FEW /HPF (FEW); URINE BACTERIA FEW /hpf (NONE SEEN); URINE MUCUS RARE
[2018-05-02 14:47] LABS: ALBUMIN 3.3 g/dl (3.4-5.0); ALK PHOS 66 U/L (45-117); ANION GAP 7 MMOL/L (8-16); BILIRUBIN,TOTAL 0.3 mg/dL (0.2-1); BLOOD UREA NITROGEN 35 mg/dL (7-18); CALCIUM 8.9 mg/dL (8.5-10.1); CHLORIDE 103 mmol/L (98-107); CHOLESTEROL 86 mg/dL (50-200); CO2 29 mmol/L (21-32); GLUCOSE,RANDOM 57 mg/dL (74-106); HDL CHOLESTEROL 46 mg/dL (40-60); POTASSIUM 3.9 mmol/L (3.5-5.1); SGOT/AST 20 U/L (15-37); SGPT/ALT 8 U/L (13-61); SODIUM 139 mmol/L (136-145); TOT PROT 6.4 g/dl (6.4-8.2); TRIGLYCERIDES 89 mg/dL (0-150)
[2018-05-02 15:22] LABS: CREATININE 7.8 mg/dL (0.55-1.3)
--- NOTE | 2018-05-02 15:31 | EKG ---
Test Reason : Blood Pressure : / mmHG Vent. Rate : 064 BPM Atrial Rate : 063 BPM P-R Int : 000 ms QRS Dur : 074 ms QT Int : 418 ms P-R-T Axes : 000 -06 -02 degrees QTc Int : 431 ms POOR DATA QUALITY, INTERPRETATION MAY BE ADVERSELY AFFECTED NORMAL SINUS RHYTHM SEPTAL INFARCT (CITED ON OR BEFORE 28-MAR-2018) INFERIOR INFARCT (CITED ON OR BEFORE 28-MAR-2018) ABNORMAL ECG Confirmed by MARJ ZHANG MD ([id number]) on 05/02/2018 3:31:39 PM Referred By: Confirmed By:MARJ ZHANG MD
[2018-05-02 15:59] LABS: ANISOCYTOSIS 2+; MACROCYTOSIS 2+
--- NOTE | 2018-05-02 16:42 | PDOC ---
*Physical Exam - Vital Signs Last Vital Signs Temp Pulse Resp BP Pulse Ox 97.4 F L 64 18 113/65 99 05/02/18 11:57 05/02/18 11:57 05/02/18 11:57 05/02/18 11:57 05/02/18 11:57 - Physical Exam Comments: 05/02/18 16:38 Gen: awake, alert, mother at the bedside ext: RUE av fistula with bruit and thrill heart: rrr lungs: cta b/l ED Treatment Course - LABORATORY CBC & Chemistry Diagram: 05/02/18 13:25 05/02/18 13:25 - ADDITIONAL ORDERS Additional order review: Laboratory Results 05/02/18 05/02/18 05/02/18 14:06 13:25 13:25 PT with INR INR Sodium Potassium Chloride Carbon Dioxide Anion Gap BUN Creatinine Creat Clearance w eGFR Random Glucose Calcium Total Bilirubin AST ALT Alkaline Phosphatase Creatine Kinase Creatine Kinase Index Cancelled CK-MB (CK-2) Cancelled Troponin I Total Protein Albumin Triglycerides Cholesterol Total LDL Cholesterol HDL Cholesterol Urine Color Yellow Urine Appearance Slcloudy Urine pH 6.0 D Ur Specific [place] 1.012 Urine Protein 2+ H Urine Glucose (UA) Negative Urine Ketones Negative Urine Blood 1+ H Urine Nitrite Negative Urine Bilirubin Negative Urine Urobilinogen Negative Ur Leukocyte Esterase 1+ H Urine WBC (Auto) 38 Urine RBC (Auto) 1 Ur Epithelial Cells Few Urine Bacteria Few Urine Mucus Rare Blood Type Cancelled Antibody Screen Cancelled 05/02/18 05/02/18 13:25 13:25 PT with INR 12.60 INR 1.07 Sodium 139 Potassium 3.9 Chloride 103 Carbon Dioxide 29 Anion Gap 7 L BUN 35 H Creatinine 7.8 H* Creat Clearance w eGFR 5.46 Random Glucose 57 L Calcium 8.9 Total Bilirubin 0.3 AST 20 ALT 8 L Alkaline Phosphatase 66 Creatine Kinase 163 Creatine Kinase Index 1.7 CK-MB (CK-2) 2.9 Troponin I 0.02 Total Protein 6.4 Albumin 3.3 L Triglycerides 89 Cholesterol 86 Total LDL Cholesterol 26 HDL Cholesterol 46 Urine Color Urine Appearance Urine pH Ur Specific [place] Urine Protein Urine Glucose (UA) Urine Ketones Urine Blood Urine Nitrite Urine Bilirubin Urine Urobilinogen Ur Leukocyte Esterase Urine WBC (Auto) Urine RBC (Auto) Ur Epithelial Cells Urine Bacteria Urine Mucus Blood Type Antibody Screen 05/02/18 13:25 RBC 2.80 L MCV 111.5 H D MCHC 34.3 RDW 17.9 H MPV 10.6 Neutrophils % 55.1 Lymphocytes % 30.3 Monocytes % 10.2 Eosinophils % 3.6 Basophils % 0.8 Medical Decision Making - Medical Decision Making 05/02/18 16:39 a/p: 52yo female with new onset hallucinations since monday - sent from HD today for eval of halluincations -also with R hemiparesis x 2 weeks -pt signed out by the prior attending -head ct negative -Dr. Gunter is Nephro -mother at the bedside states that when she receives a full dose of sinemet she has hallucinations -has been in rehab x days and has been receiving full dose of sinemet and has been hallucinating - will discuss with dr. purdy -labs reivewed and K 3.9 BP stable case discussed with Dr. Harris - accepts pt to service 05/02/18 16:[address] Sharma who will dialyze the patient tomorrow case discussed with Dr. Purdy - who states sinemet dose should be 25/100mg TID *DC/Admit/Observation/Transfer Diagnosis at time of Disposition: Hallucinations, ESRD (end stage renal disease) - Discharge Dispostion Condition at time of disposition: Guarded Decision to Admit order: Yes - Referrals - Patient Instructions - Post Discharge Activity
[2018-05-03 10:24] VITALS: BMI 39.1
[2018-05-03] MEDS: CLOPIDOGREL BISULFATE 75 MG TABLET (FP) PO SCH (10:33)
[2018-05-03] MEDS: CARVEDILOL 25 MG TABLET (FP) PO SCH ×2 (10:33→21:32)
[2018-05-03] MEDS: levETIRAcetam 500 MG TABLET (FP) PO SCH ×2 (10:33→21:32)
[2018-05-03] MEDS: ASPIRIN 325 MG ENTERIC COATED TABLET (FP) PO SCH (10:33)
[2018-05-03] MEDS: amLODIPine BESYLATE 10 MG TABLET (FP) PO SCH (10:33)
[2018-05-03] MEDS: clonazePAM 0.5 MG TABLET PO SCH ×2 (10:34→21:32)
--- NOTE | 2018-05-03 10:40 | HP ---
Admitting History and Physical - Primary Care Physician PCP: Jolanta Harris - Admission History of Present Illness: 52 year old female, with a significant past medical history of seizures, HTN, TIA/Strokes, ESRD (M/W/F dialysis), IDDM , who presents to the emergency department with one week complaint of hallucinations. The patient states she started to see things that are not really there. She states she thinks the hallucinations are being caused by her parkinsons medications. She also reports a right sided headache today which feels unlike her typical morning migraines. She states she was sent from dialysis before having treatment secondary to being disoriented, leaning to one side, and vomiting prior to starting treatment as per patients cousin at bedside. 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 Cardiovascular: Yes: HTN, Hyperlipdemia, Other (Peripheral vascular disease) Pulmonary: Yes: Asthma, Sleep Apnea Gastrointestinal: Yes: Constipation Renal/: Yes: Renal Failure, Hemodialysis ...LMP: 12/25/17 Heme/Onc: Yes: Anemia Rheumatology: Yes: Other (See HPI) Endocrine: Yes: Diabetes Mellitus - Past Surgical History Past Surgical History: Yes: Amputation, AV Fistula/Graft, - Smoking History Smoking history: Unknown if ever smoked Have you smoked in the past 12 months: No Aproximately how many cigarettes per day: 0 - Alcohol/Substance Use Hx Alcohol Use: No - Social History ADL: Independent History of Recent Travel: No Home Medications - Allergies Allergies/Adverse Reactions: Allergies Allergy/AdvReac Type Severity Reaction Status Date / Time amoxicillin [Amoxicillin] Allergy Severe Itching Verified 05/02/18 11:59 hydrocodone bitartrate Allergy Severe Hives,ITCHI Verified 05/02/18 11:59 [From Vicodin] NG morphine Allergy Severe Itching Verified 05/02/18 11:59 neomycin [Neomycin] Allergy Severe Swelling Verified 05/02/18 11:59 oxycodone HCl [From Percocet] Allergy Severe Itching,HIV Verified 05/02/18 11:59 ES rofecoxib [From Vioxx] Allergy Severe Hives Verified 05/02/18 11:59 Sulfa (Sulfonamide Allergy Severe sclera Verified 05/02/18 11:59 Antibiotics) reddened,ITCHING tramadol Allergy Severe Vomiting Verified 05/02/18 11:59 tomato Allergy Verified 05/02/18 11:59 grapefruit [Grapefruit] AdvReac Severe CAN'T TAKE Verified 05/02/18 11:59 BECAUSE OF MEDICATIONS vancomycin AdvReac Mild red man Verified 05/02/18 11:59 syndrome Heparin Analogues AdvReac Unknown Verified 05/02/18 11:59 [Heparin Agents] flu shot Allergy Severe GETS FLU Uncoded 05/02/18 11:59 SYMPTOMS grape juice AdvReac Severe Uncoded 05/02/18 11:59 - Home Medications Home Medications: Ambulatory Orders Albuterol 0.083% Nebulizer Bonita [Ventolin 0.083% Nebulizer Soln -] 1 amp NEB DAILY 05/02/18 Amlodipine Besylate [Norvasc -] 10 mg PO DAILY 05/02/18 Aspirin [Aspirin EC] 325 mg PO DAILY 05/02/18 Atorvastatin Ca [Lipitor] 80 mg PO HS 05/02/18 Bupropion HCl [Wellbutrin Xl] 300 mg PO HS 05/02/18 Carvedilol [Coreg -] 25 mg PO BID 05/02/18 Clopidogrel Bisulfate [Plavix] 75 mg PO DAILY 05/02/18 Folic Acid/Vit B Complex and C [Folbee Plus Tablet] 5 mg PO DAILY 05/02/18 Furosemide [Lasix] 40 mg PO BID 05/02/18 Insulin Glargine,Hum.rec.anlog [Lantus Solostar PEN -] 7 units SQ HS 05/02/18 Insulin Sliding Scale [Novolog Vial Sliding Scale -] 0 units SQ TIDAC 05/02/18 Linaclotide [Linzess] 145 mcg PO DAILY 05/02/18 Sennosides [Senna] 17.2 mg GT HS 05/02/18 Sevelamer Carbonate [Renvela -] 800 mg PO TID 05/02/18 Topiramate [Topiramate ER] 50 mg PO BID 05/02/18 clonazePAM [Klonopin -] 0.5 mg PO BID 05/02/18 levETIRAcetam [Keppra -] 500 mg PO BID 05/02/18 Physical Examination Vital Signs: Vital Signs Temperature 98.4 F 05/03/18 10:14 Pulse Rate 69 05/03/18 10:14 Respiratory Rate 18 05/03/18 10:14 Blood Pressure 134/61 05/03/18 10:14 O2 Sat by Pulse Oximetry (%) 100 05/03/18 00:25 Constitutional: Yes: No Distress HENT: Yes: Atraumatic Neck: Yes: Supple Cardiovascular: Yes: Regular Rate and Rhythm Respiratory: Yes: CTA Bilaterally Gastrointestinal: Yes: Normal Bowel Sounds Extremities: Yes: WNL Edema: No Neurological: Yes: Alert, Oriented Labs: CBC, BMP 05/02/18 13:25 05/02/18 13:25 Problem List - Problems (1) ESRD (end stage renal disease) Assessment/Plan: ON HD RENAL CONSULT Code(s): N18.6 - END STAGE RENAL DISEASE (2) Hallucinations Assessment/Plan: BETTER DR GILL WAS CONSULTED Code(s): R44.3 - HALLUCINATIONS, UNSPECIFIED (3) CVA (cerebral vascular accident) Code(s): I63.9 - CEREBRAL INFARCTION, UNSPECIFIED (4) Complex partial seizure Assessment/Plan: on meds per neuro dr gill Code(s): G40.209 - LOCAL-REL SYMPTC EPI W CMPLX PRT SEIZ,NOT NTRCT,W/O STAT EPI Qualifiers: Epilepsy type: partial symptomatic (5) ESRD (end stage renal disease) Assessment/Plan: on hd Code(s): N18.6 - END STAGE RENAL DISEASE (6) Glaucoma Code(s): H40.9 - UNSPECIFIED GLAUCOMA (7) Type 2 diabetes mellitus Assessment/Plan: monitor bgms cover if needed Code(s): E11.9 - TYPE 2 DIABETES MELLITUS WITHOUT COMPLICATIONS Assessment/Plan Laboratory Tests 05/02/18 05/02/18 05/02/18 13:25 13:25 13:25 WBC 3.7 L RBC 2.80 L Hgb 10.7 Hct 31.2 L MCV 111.5 H D MCH 38.2 H MCHC 34.3 RDW 17.9 H Plt Count 109 L MPV 10.6 Absolute Neuts (auto) 2.0 Neutrophils % 55.1 Lymphocytes % 30.3 Monocytes % 10.2 Eosinophils % 3.6 Basophils % 0.8 Nucleated RBC % 0 Anisocytosis 2+ Macrocytosis 2+ PT with INR 12.60 INR 1.07 Sodium 139 Potassium 3.9 Chloride 103 Carbon Dioxide 29 Anion Gap 7 L BUN 35 H Creatinine 7.8 H* Creat Clearance w eGFR 5.46 Random Glucose 57 L Calcium 8.9 Total Bilirubin 0.3 AST 20 ALT 8 L Alkaline Phosphatase 66 Creatine Kinase 163 Creatine Kinase Index 1.7 CK-MB (CK-2) 2.9 Troponin I 0.02 Total Protein 6.4 Albumin 3.3 L Triglycerides 89 Cholesterol 86 Total LDL Cholesterol 26 HDL Cholesterol 46 Vitamin B12 Serum Folate Urine Color Urine Appearance Urine pH Ur Specific [place] Urine Protein Urine Glucose (UA) Urine Ketones Urine Blood Urine Nitrite Urine Bilirubin Urine Urobilinogen Ur Leukocyte Esterase Urine WBC (Auto) Urine RBC (Auto) Ur Epithelial Cells Urine Bacteria Urine Mucus Blood Type Antibody Screen 05/02/18 05/02/18 05/02/18 13:25 13:25 14:06 WBC RBC Hgb Hct MCV MCH MCHC RDW Plt Count MPV Absolute Neuts (auto) Neutrophils % Lymphocytes % Monocytes % Eosinophils % Basophils % Nucleated RBC % Anisocytosis Macrocytosis PT with INR INR Sodium Potassium Chloride Carbon Dioxide Anion Gap BUN Creatinine Creat Clearance w eGFR Random Glucose Calcium Total Bilirubin AST ALT Alkaline Phosphatase Creatine Kinase Creatine Kinase Index Cancelled CK-MB (CK-2) Cancelled Troponin I Total Protein Albumin Triglycerides Cholesterol Total LDL Cholesterol HDL Cholesterol Vitamin B12 Serum Folate Urine Color Yellow Urine Appearance Slcloudy Urine pH 6.0 D Ur Specific [place] 1.012 Urine Protein 2+ H Urine Glucose (UA) Negative Urine Ketones Negative Urine Blood 1+ H Urine Nitrite Negative Urine Bilirubin Negative Urine Urobilinogen Negative Ur Leukocyte Esterase 1+ H Urine WBC (Auto) 38 Urine RBC (Auto) 1 Ur Epithelial Cells Few Urine Bacteria Few Urine Mucus Rare Blood Type Cancelled Antibody Screen Cancelled 05/03/18 00:50 WBC RBC Hgb Hct MCV MCH MCHC RDW Plt Count MPV Absolute Neuts (auto) Neutrophils % Lymphocytes % Monocytes % Eosinophils % Basophils % Nucleated RBC % Anisocytosis Macrocytosis PT with INR INR Sodium Potassium Chloride Carbon Dioxide Anion Gap BUN Creatinine Creat Clearance w eGFR Random Glucose Calcium Total Bilirubin AST ALT Alkaline Phosphatase Creatine Kinase Creatine Kinase Index CK-MB (CK-2) Troponin I Total Protein Albumin Triglycerides Cholesterol Total LDL Cholesterol HDL Cholesterol Vitamin B12 1431 H Serum Folate 4 Urine Color Urine Appearance Urine pH Ur Specific [place] Urine Protein Urine Glucose (UA) Urine Ketones Urine Blood Urine Nitrite Urine Bilirubin Urine Urobilinogen Ur Leukocyte Esterase Urine WBC (Auto) Urine RBC (Auto) Ur Epithelial Cells Urine Bacteria Urine Mucus Blood Type Antibody Screen Active Medications Generic Name Dose Route Start Last Admin Trade Name Sheldonq PRN Reason Stop Dose Admin Amlodipine Besylate 10 mg 05/03/18 10:00 05/03/18 10:33 Norvasc - PO 10 mg DAILY MANDO Administration Aspirin 325 mg 05/03/18 10:00 05/03/18 10:33 Ecotrin - PO 325 mg DAILY MANDO Administration Carvedilol 25 mg 05/03/18 10:00 05/03/18 10:33 Coreg - PO 25 mg BID MANDO Administration Clonazepam 0.5 mg 05/03/18 10:00 05/03/18 10:34 Klonopin - PO 0.5 mg BID MANDO Administration Clopidogrel Bisulfate 75 mg 05/03/18 10:00 05/03/18 10:33 Plavix - PO 75 mg DAILY MANDO Administration Furosemide 40 mg 05/03/18 14:00 Lasix - PO BIDLASIX MANDO Sodium Chloride 1,000 mls @ 42 mls/hr 05/02/18 13:30 05/02/18 16:52 Normal Saline - IV 42 mls/hr ASDIR MANDO Administration Sodium Chloride 250 mls @ 3,000 mls/hr 05/03/18 08:17 Normal Saline - IV 05/04/18 08:18 PRN PRN Hypotension during Dialysis Levetiracetam 500 mg 05/03/18 10:00 05/03/18 10:33 Keppra - PO 500 mg BID MANDO Administration Sevelamer Carbonate 800 mg 05/03/18 12:00 Renvela - PO TIDCM MANDO
[2018-05-03] MEDS ORDERED: PATIENT'S OWN MEDICATION (NON-FORMULARY) (Linaclotide [Linzess] 145 MCG) PO SCH (10:45)
[2018-05-03] MEDS ORDERED: SODIUM CHLORIDE 250 ML IV PRN (10:52)
[2018-05-03] MEDS: SEVELAMER CARBONATE 800 MG TAB (FP) PO SCH ×2 (13:17→18:16)
--- NOTE | 2018-05-03 14:14 | CONSULT ---
Consult Consult Specialty:: Nephrology Reason for Consultation:: ESRD - History of Present Illness Chief Complaint: hallucinations History of Present Illness: Pt is a 52 year old female with pmhx of ESRD on HD MWF, HTN, TIA, CVA, and DM who presents to the ER with hallucinations. Her parkinsons meds were recently changed. She missed her HD yesterday. Her mental status is improved. She denies shortness of breath. She denies fevers or chills. 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 Cardio/Vascular: Yes: HTN, Hyperlipdemia, Other (Peripheral vascular disease) Pulmonary: Yes: Asthma, Sleep Apnea Gastrointestinal: Yes: Constipation Renal/: Yes: Renal Failure, Hemodialysis ...LMP: 12/25/17 Rheumatology: Yes: Other (See HPI) Endocrine: Yes: Diabetes Mellitus - Past Surgical History Past Surgical History: Yes: Amputation, AV Fistula/Graft, - Alcohol/Substance Use Hx Alcohol Use: No - Smoking History Smoking history: Unknown if ever smoked Have you smoked in the past 12 months: No Aproximately how many cigarettes per day: 0 - Social History ADL: Independent History of Recent Travel: No Home Medications - Allergies Allergies/Adverse Reactions: Allergies Allergy/AdvReac Type Severity Reaction Status Date / Time amoxicillin [Amoxicillin] Allergy Severe Itching Verified 05/02/18 11:59 hydrocodone bitartrate Allergy Severe Hives,ITCHI Verified 05/02/18 11:59 [From Vicodin] NG morphine Allergy Severe Itching Verified 05/02/18 11:59 neomycin [Neomycin] Allergy Severe Swelling Verified 05/02/18 11:59 oxycodone HCl [From Percocet] Allergy Severe Itching,HIV Verified 05/02/18 11:59 ES rofecoxib [From Vioxx] Allergy Severe Hives Verified 05/02/18 11:59 Sulfa (Sulfonamide Allergy Severe sclera Verified 05/02/18 11:59 Antibiotics) reddened,ITCHING tramadol Allergy Severe Vomiting Verified 05/02/18 11:59 tomato Allergy Verified 05/02/18 11:59 grapefruit [Grapefruit] AdvReac Severe CAN'T TAKE Verified 05/02/18 11:59 BECAUSE OF MEDICATIONS vancomycin AdvReac Mild red man Verified 05/02/18 11:59 syndrome Heparin Analogues AdvReac Unknown Verified 05/02/18 11:59 [Heparin Agents] flu shot Allergy Severe GETS FLU Uncoded 05/02/18 11:59 SYMPTOMS grape juice AdvReac Severe Uncoded 05/02/18 11:59 - Home Medications Home Medications: Ambulatory Orders Albuterol 0.083% Nebulizer Bonita [Ventolin 0.083% Nebulizer Soln -] 1 amp NEB DAILY 05/02/18 Amlodipine Besylate [Norvasc -] 10 mg PO DAILY 05/02/18 Aspirin [Aspirin EC] 325 mg PO DAILY 05/02/18 Atorvastatin Ca [Lipitor] 80 mg PO HS 05/02/18 Bupropion HCl [Wellbutrin Xl] 300 mg PO HS 05/02/18 Carvedilol [Coreg -] 25 mg PO BID 05/02/18 Cetirizine HCl [Zyrtec -] 10 mg PO DAILY 05/02/18 Clopidogrel Bisulfate [Plavix] 75 mg PO DAILY 05/02/18 Folic Acid/Vit B Complex and C [Folbee Plus Tablet] 5 mg PO DAILY 05/02/18 Furosemide [Lasix] 40 mg PO BID 05/02/18 Insulin Glargine,Hum.rec.anlog [Lantus Solostar PEN (NF)] 7 units SQ HS Insulin Sliding Scale [Novolog Vial Sliding Scale -] 0 units SQ TIDAC 05/02/18 Linaclotide [Linzess] 145 mcg PO DAILY 05/02/18 Sennosides [Senna] 17.2 mg GT HS 05/02/18 Sevelamer Carbonate [Renvela] 800 mg PO TID 05/02/18 Topiramate [Topiramate ER] 50 mg PO BID 05/02/18 clonazePAM [Klonopin -] 0.5 mg PO BID 05/02/18 levETIRAcetam [Keppra -] 500 mg PO BID 05/02/18 Family Disease History - Family Disease History Family History: Denies Review of Systems - Review of Systems Constitutional: reports: Malaise Eyes: reports: No Symptoms HENT: reports: No Symptoms Neck: reports: No Symptoms Cardiovascular: reports: No Symptoms Respiratory: reports: No Symptoms Gastrointestinal: reports: No Symptoms Genitourinary: reports: No Symptoms Musculoskeletal: reports: No Symptoms Integumentary: reports: No Symptoms Neurological: reports: Other (hallucinations) Endocrine: reports: No Symptoms Psychiatric: reports: Hallucinations Physical Exam Vital Signs: Vital Signs Temperature 98.4 F 05/03/18 10:14 Pulse Rate 61 05/03/18 13:35 Respiratory Rate 18 05/03/18 13:35 Blood Pressure 157/74 05/03/18 13:35 O2 Sat by Pulse Oximetry (%) 100 05/03/18 00:25 Constitutional: Yes: Calm Eyes: Yes: Conjunctiva Clear HENT: Yes: Atraumatic Cardiovascular: Yes: S1, S2 Respiratory: Yes: CTA Bilaterally Gastrointestinal: Yes: Soft, Abdomen, Obese Renal/: Yes: WNL Musculoskeletal: Yes: WNL Edema: No Neurological: Yes: Oriented Labs: CBC, BMP 05/02/18 13:25 05/02/18 13:25 Laboratory Tests 05/02/18 05/02/18 13:25 13:25 Hgb 10.7 BUN 35 H Creatinine 7.8 H* Imaging - Results Cat Scan: Report Reviewed Assessment/Plan Current Medications Generic Name Dose Route Start Last Admin Trade Name Freq PRN Reason Stop Dose Admin Amlodipine Besylate 10 mg 05/03/18 10:00 05/03/18 10:33 Norvasc - PO 10 mg DAILY MANDO Administration Aspirin 325 mg 05/03/18 10:00 05/03/18 10:33 Ecotrin - PO 325 mg DAILY MANDO Administration Carvedilol 25 mg 05/03/18 10:00 05/03/18 10:33 Coreg - PO 25 mg BID MANDO Administration Clonazepam 0.5 mg 05/03/18 10:00 05/03/18 10:34 Klonopin - PO 0.5 mg BID MANDO Administration Clopidogrel Bisulfate 75 mg 05/03/18 10:00 05/03/18 10:33 Plavix - PO 75 mg DAILY MANDO Administration Furosemide 40 mg 05/03/18 14:00 Lasix - PO BIDLASIX MANDO Sodium Chloride 1,000 mls @ 42 mls/hr 05/02/18 13:30 05/02/18 16:52 Normal Saline - IV 42 mls/hr ASDIR MANDO Administration Sodium Chloride 250 mls @ 3,000 mls/hr 05/03/18 10:52 Normal Saline - IV 02/08/19 10:51 PRN PRN Hypotension during Dialysis Levetiracetam 500 mg 05/03/18 10:00 05/03/18 10:33 Keppra - PO 500 mg BID MANDO Administration Non-Formulary Medication 145 mcg 05/03/18 10:45 Linaclotide [Linzess] PO DAILY MANDO Non-Formulary Medication 50 mg 05/03/18 22:00 Topiramate [Topiramate Er] PO BID MANDO Sevelamer Carbonate 800 mg 05/03/18 12:00 05/03/18 13:17 Renvela - PO Not Given TIDCM MANDO Impression 1. ESRD 2. hallucinations 3. DM 4. HLD 5. HTN 6. anemia 7. anxiety 8. seizure Plan - HD today - hg stable - neuro eval - monitor bp - 4 hrs, 2 k bath, epogen 1000, hectorol 3.5, 15 gauge 1 1/4 length - renal diabetic diet
[2018-05-03] MEDS: FUROSEMIDE 40 MG TABLET (FP) PO SCH (14:27)
--- NOTE | 2018-05-03 14:44 | CON.ID ---
Consult Consult Specialty:: infectious diseases Reason for Consultation:: ams - History of Present Illness History of Present Illness: 52 year old female, with a significant past medical history of seizures, HTN, TIA/Strokes, ESRD (M/W/F dialysis), IDDM , who presents to the emergency department with one week complaint of hallucinations. The patient states she started to see things that are not really there. She states she thinks the hallucinations are being caused by her parkinsons medications. She also reports a right sided headache today which feels unlike her typical morning migraines. She states she was sent from dialysis before having treatment secondary to being disoriented, leaning to one side, and vomiting prior to starting treatment as per patients cousin at bedside. The patient denies chest pain, shortness of breath,and dizziness. The patient denies fever, chills, nausea, vomit, diarrhea and constipation. The patient denies dysuria, frequency, urgency and hematuria. 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 Cardio/Vascular: Yes: HTN, Hyperlipdemia, Other (Peripheral vascular disease) Pulmonary: Yes: Asthma, Sleep Apnea Gastrointestinal: Yes: Constipation Renal/: Yes: Renal Failure, Hemodialysis ...LMP: 12/25/17 Rheumatology: Yes: Other (See HPI) Endocrine: Yes: Diabetes Mellitus - Past Surgical History Past Surgical History: Yes: Amputation, AV Fistula/Graft, - Alcohol/Substance Use Hx Alcohol Use: No - Smoking History Smoking history: Unknown if ever smoked Have you smoked in the past 12 months: No Aproximately how many cigarettes per day: 0 - Social History ADL: Independent History of Recent Travel: No Home Medications - Allergies Allergies/Adverse Reactions: Allergies Allergy/AdvReac Type Severity Reaction Status Date / Time amoxicillin [Amoxicillin] Allergy Severe Itching Verified 05/02/18 11:59 hydrocodone bitartrate Allergy Severe Hives,ITCHI Verified 05/02/18 11:59 [From Vicodin] NG morphine Allergy Severe Itching Verified 05/02/18 11:59 neomycin [Neomycin] Allergy Severe Swelling Verified 05/02/18 11:59 oxycodone HCl [From Percocet] Allergy Severe Itching,HIV Verified 05/02/18 11:59 ES rofecoxib [From Vioxx] Allergy Severe Hives Verified 05/02/18 11:59 Sulfa (Sulfonamide Allergy Severe sclera Verified 05/02/18 11:59 Antibiotics) reddened,ITCHING tramadol Allergy Severe Vomiting Verified 05/02/18 11:59 tomato Allergy Verified 05/02/18 11:59 grapefruit [Grapefruit] AdvReac Severe CAN'T TAKE Verified 05/02/18 11:59 BECAUSE OF MEDICATIONS vancomycin AdvReac Mild red man Verified 05/02/18 11:59 syndrome Heparin Analogues AdvReac Unknown Verified 05/02/18 11:59 [Heparin Agents] flu shot Allergy Severe GETS FLU Uncoded 05/02/18 11:59 SYMPTOMS grape juice AdvReac Severe Uncoded 05/02/18 11:59 - Home Medications Home Medications: Ambulatory Orders Albuterol 0.083% Nebulizer Bonita [Ventolin 0.083% Nebulizer Soln -] 1 amp NEB DAILY 05/02/18 Amlodipine Besylate [Norvasc -] 10 mg PO DAILY 05/02/18 Aspirin [Aspirin EC] 325 mg PO DAILY 05/02/18 Atorvastatin Ca [Lipitor] 80 mg PO HS 05/02/18 Bupropion HCl [Wellbutrin Xl] 300 mg PO HS 05/02/18 Carvedilol [Coreg -] 25 mg PO BID 05/02/18 Clopidogrel Bisulfate [Plavix] 75 mg PO DAILY 05/02/18 Folic Acid/Vit B Complex and C [Folbee Plus Tablet] 5 mg PO DAILY 05/02/18 Furosemide [Lasix] 40 mg PO BID 05/02/18 Insulin Glargine,Hum.rec.anlog [Lantus Solostar PEN -] 7 units SQ HS 05/02/18 Insulin Sliding Scale [Novolog Vial Sliding Scale -] 0 units SQ TIDAC 05/02/18 Linaclotide [Linzess] 145 mcg PO DAILY 05/02/18 Sennosides [Senna] 17.2 mg GT HS 05/02/18 Sevelamer Carbonate [Renvela -] 800 mg PO TID 05/02/18 Topiramate [Topiramate ER] 50 mg PO BID 05/02/18 clonazePAM [Klonopin -] 0.5 mg PO BID 05/02/18 levETIRAcetam [Keppra -] 500 mg PO BID 05/02/18 Review of Systems - Review of Systems Constitutional: reports: No Symptoms Eyes: reports: No Symptoms HENT: reports: No Symptoms Neck: reports: No Symptoms Cardiovascular: reports: No Symptoms Respiratory: reports: No Symptoms Gastrointestinal: reports: No Symptoms Genitourinary: reports: No Symptoms Musculoskeletal: reports: No Symptoms Integumentary: reports: No Symptoms Neurological: reports: Confusion, Other (ams) Hematology/Lymphatic: reports: No Symptoms Psychiatric: reports: No Symptoms Physical Exam Vital Signs: Vital Signs Temperature 98.4 F 05/03/18 10:14 Pulse Rate 61 05/03/18 14:05 Respiratory Rate 18 05/03/18 14:05 Blood Pressure 164/75 05/03/18 14:05 O2 Sat by Pulse Oximetry (%) 100 05/03/18 00:25 Constitutional: Yes: Well Nourished, No Distress, Calm Eyes: Yes: Conjunctiva Clear Cardiovascular: Yes: Regular Rate and Rhythm Respiratory: Yes: Regular, CTA Bilaterally Gastrointestinal: Yes: Normal Bowel Sounds, Soft Musculoskeletal: Yes: WNL Extremities: Yes: WNL Neurological: Yes: Other (confused) Psychiatric: Yes: Other Labs: CBC, BMP 05/02/18 13:25 05/02/18 13:25 Imaging - Results X-ray: Report Reviewed, Image Reviewed Cat Scan: Report Reviewed, Image Reviewed Assessment/Plan Problem List - Problems (1) ESRD (end stage renal disease) Code(s): N18.6 - END STAGE RENAL DISEASE (2) Hallucinations Code(s): R44.3 - HALLUCINATIONS, UNSPECIFIED ams plan will not start on abx close watch await for all cx report rest as per the team
[2018-05-03] MEDS ORDERED: TOPIRAMATE 50 MG PO SCH (22:00)
--- NOTE | 2018-05-03 22:21 | CONSULT ---
Consult - text type - Consultation Consultation Note: NEUROLOGY CONSULTATION is greatly appreciated: This 52 yo RH s woman lives alone with a full-time home health aide. PMH sig for HTN, DM, Chol, ASHD, PVD (s/p multiple toe amputations) and ESRD on HD is well-know to me with multiple neurological problems including: blindness due to diabetic retinopathy, diabetic peripheral neuropathy, migraine headaches, seizure disorder, depression, Parkinson's disease and OMS, probably on a microvascular basis. Neuro meds include plavix, wellbutrin, levetiracetam (500 BID), Topiramate (50 BID), and Sinemet CR (25/100 TID). However, the admission meds apparently do NOT include L-Dopa. Aisha describes a "few months" of visual hallucinations. These include images of her mother and "lots of cats." Transferred from her dialysis center, prior to HD, yesterday after "slumping to the right." No witnessed seizure activity. Admission CT (reviewed) shows moderate atrophy and diffuse periventricular white matter microvascular changes. ANTONIO: Obese. No bruits. No head trauma. Multiple toe amputations and atrophic skin changes both calves. AV fistula right arm. NEURO: Awake, alert, recognizes my voice. [facility]. 2018. Speech sl. dysarthric. CN: Blind OS. Counts fingers OD. Sl exophthalmus. No facial weakness. Decreased tongue Jesse. Gag OK Motor: Min right drift. Right leg rests everted. Grasps OK. Min cogwheeling. Decreased BILLY's. Areflexic in legs. Coord: no FTN dystaxia Sensory: Decreased vib to the distal calf. IMP: 1. Mild B/L cerebral dysfunction with mild left cerebral accentuation. R/O new lacunar CVA 2. Severe diabetic peripheral neuropathy. 3. Parkinsonism/Parkinson's disease 4. Visual hallucinations (off L-Dopa) suggesting Parkinson's disease psychosis (PRP). 5. Seizure disorder 5. Migraine headaches. SUGGEST: MRI of brain (C-) Carotid duplex doppler Continue plavix, levetiracetam, topiramate and bupropion. Observe off L-Dopa for now. Out pt neuro follow-up for Pimavanserin (Nuplazid) Rx (34mg/day). Thank you very much, Simone Faye MD
[2018-05-04 03:17] LABS: HBSAG SCREEN Negative (Negative); HEP B CORE AB, TOT Negative (Negative)
[2018-05-04] MEDS: FUROSEMIDE 40 MG TABLET (FP) PO SCH ×2 (06:35→13:41)
[2018-05-04] MEDS: SEVELAMER CARBONATE 800 MG TAB (FP) PO SCH ×3 (08:57→18:05)
--- NOTE | 2018-05-04 11:24 | DS ---
Physical Examination Vital Signs: Vital Signs Temperature 98.2 F 05/04/18 07:04 Pulse Rate 65 05/04/18 07:04 Respiratory Rate 20 05/04/18 07:04 Blood Pressure 153/76 05/04/18 07:04 O2 Sat by Pulse Oximetry (%) 100 05/03/18 00:25 Constitutional: Yes: Calm HENT: Yes: Atraumatic Neck: Yes: Supple Cardiovascular: Yes: Regular Rate and Rhythm Respiratory: Yes: CTA Bilaterally, Rhonchi Gastrointestinal: Yes: Normal Bowel Sounds Edema: Yes Edema: LLE: Trace, RLE: Trace Neurological: Yes: Alert, Oriented, Other (R upper and lower limb are weak) Labs: CBC, BMP 05/02/18 13:25 05/03/18 15:35 Discharge Summary Reason For Visit: HALLUCINATIONS END STAGE RENAL DISEASE Current Active Problems ESRD (end stage renal disease) (Acute) Hallucinations (Acute) Condition: Guarded - Instructions Diet, Activity, Other Instructions: YOU HAVE AN APPOINTMENT WITH DR. GILL ON April AT 12:45PM. Referrals: Simone Gill MD [Staff Physician] - - Home Medications Comprehensive Discharge Medication List: Ambulatory Orders Albuterol 0.083% Nebulizer Bonita [Ventolin 0.083% Nebulizer Soln -] 1 amp NEB DAILY 05/02/18 Amlodipine Besylate [Norvasc -] 10 mg PO DAILY 05/02/18 Aspirin [Aspirin EC] 325 mg PO DAILY 05/02/18 Atorvastatin Ca [Lipitor] 80 mg PO HS 05/02/18 Bupropion HCl [Wellbutrin Xl] 300 mg PO HS 05/02/18 Carvedilol [Coreg -] 25 mg PO BID 05/02/18 Clopidogrel Bisulfate [Plavix] 75 mg PO DAILY 05/02/18 Folic Acid/Vit B Complex and C [Folbee Plus Tablet] 5 mg PO DAILY 05/02/18 Furosemide [Lasix] 40 mg PO BID 05/02/18 Insulin Glargine,Hum.rec.anlog [Lantus Solostar PEN -] 7 units SQ HS 05/02/18 Insulin Sliding Scale [Novolog Vial Sliding Scale -] 0 units SQ TIDAC 05/02/18 Linaclotide [Linzess] 145 mcg PO DAILY 05/02/18 Sennosides [Senna] 17.2 mg GT HS 05/02/18 Sevelamer Carbonate [Renvela -] 800 mg PO TID 05/02/18 Topiramate [Topiramate ER] 50 mg PO BID 05/02/18 clonazePAM [Klonopin -] 0.5 mg PO BID 05/02/18 levETIRAcetam [Keppra -] 500 mg PO BID 05/02/18 dc to snf d/w nick gill in detail regarding patients condition
[2018-05-04] MEDS: clonazePAM 0.5 MG TABLET PO SCH ×2 (11:39→21:58)
[2018-05-04] MEDS: CARVEDILOL 25 MG TABLET (FP) PO SCH ×2 (11:39→21:58)
[2018-05-04] MEDS: CLOPIDOGREL BISULFATE 75 MG TABLET (FP) PO SCH (11:39)
[2018-05-04] MEDS: levETIRAcetam 500 MG TABLET (FP) PO SCH ×2 (11:39→21:58)
[2018-05-04] MEDS: ASPIRIN 325 MG ENTERIC COATED TABLET (FP) PO SCH (11:39)
[2018-05-04] MEDS: amLODIPine BESYLATE 10 MG TABLET (FP) PO SCH (11:39)
--- NOTE | 2018-05-04 12:23 | PN ---
Progress Note, Physician History of Present Illness: family in the room patient feels better according to the family patient looks like back to her baseline patient says she is doing well - Current Medication List Current Medications: Active Medications Amlodipine Besylate (Norvasc -) 10 mg PO DAILY [facility] Last Admin: 05/04/18 11:39 Dose: 10 mg Aspirin (Ecotrin -) 325 mg PO DAILY [facility] Last Admin: 05/04/18 11:39 Dose: 325 mg Carvedilol (Coreg -) 25 mg PO BID [facility] Last Admin: 05/04/18 11:39 Dose: 25 mg Clonazepam (Klonopin -) 0.5 mg PO BID [facility] Last Admin: 05/04/18 11:39 Dose: 0.5 mg Clopidogrel Bisulfate (Plavix -) 75 mg PO DAILY [facility] Last Admin: 05/04/18 11:39 Dose: 75 mg Furosemide (Lasix -) 40 mg PO BIDLASIX [facility] Last Admin: 05/04/18 06:35 Dose: 40 mg Sodium Chloride (Normal Saline -) 1,000 mls @ 42 mls/hr IV ASDIR [facility] Last Admin: 05/02/18 16:52 Dose: 42 mls/hr Levetiracetam (Keppra -) 500 mg PO BID [facility] Last Admin: 05/04/18 11:39 Dose: 500 mg Non-Formulary Medication (Linaclotide [Linzess]) 145 mcg PO DAILY [facility] Non-Formulary Medication (Topiramate [Topiramate Er]) 50 mg PO BID [facility] Sevelamer Carbonate (Renvela -) 800 mg PO TIDCM [facility] Last Admin: 05/04/18 11:39 Dose: 800 mg - Objective Vital Signs: Vital Signs Temperature 98.2 F 05/04/18 11:00 Pulse Rate 71 05/04/18 11:00 Respiratory Rate 18 05/04/18 11:00 Blood Pressure 160/78 05/04/18 11:00 O2 Sat by Pulse Oximetry (%) 100 05/03/18 00:25 Constitutional: Yes: No Distress, Calm Cardiovascular: Yes: Regular Rate and Rhythm Respiratory: Yes: Regular, CTA Bilaterally Gastrointestinal: Yes: Normal Bowel Sounds, Soft Musculoskeletal: Yes: WNL Extremities: Yes: WNL Neurological: Yes: Alert, Oriented Psychiatric: Yes: Alert, Oriented Labs: CBC, BMP 05/02/18 13:25 05/03/18 15:35 INR, PTT INR 1.07 (0.83-1.09) 05/02/18 13:25 Assessment/Plan Problem List - Problems (1) ESRD (end stage renal disease) Code(s): N18.6 - END STAGE RENAL DISEASE (2) Hallucinations Code(s): R44.3 - HALLUCINATIONS, UNSPECIFIED ams plan continue to monitor no abx all cx results noted rest as per the team
--- NOTE | 2018-05-04 15:47 | PN ---
Progress Note, Physician History of Present Illness: Pt seen and examined at bedside. She is more awake and alert. She denies shortness of breath. - Current Medication List Current Medications: Active Medications Amlodipine Besylate (Norvasc -) 10 mg PO DAILY [facility] Last Admin: 05/04/18 11:39 Dose: 10 mg Aspirin (Ecotrin -) 325 mg PO DAILY [facility] Last Admin: 05/04/18 11:39 Dose: 325 mg Carvedilol (Coreg -) 25 mg PO BID [facility] Last Admin: 05/04/18 11:39 Dose: 25 mg Clonazepam (Klonopin -) 0.5 mg PO BID [facility] Last Admin: 05/04/18 11:39 Dose: 0.5 mg Clopidogrel Bisulfate (Plavix -) 75 mg PO DAILY [facility] Last Admin: 05/04/18 11:39 Dose: 75 mg Furosemide (Lasix -) 40 mg PO BIDLASIX [facility] Last Admin: 05/04/18 13:41 Dose: 40 mg Sodium Chloride (Normal Saline -) 1,000 mls @ 42 mls/hr IV ASDIR [facility] Last Admin: 05/02/18 16:52 Dose: 42 mls/hr Levetiracetam (Keppra -) 500 mg PO BID [facility] Last Admin: 05/04/18 11:39 Dose: 500 mg Non-Formulary Medication (Linaclotide [Linzess]) 145 mcg PO DAILY [facility] Non-Formulary Medication (Topiramate [Topiramate Er]) 50 mg PO BID [facility] Sevelamer Carbonate (Renvela -) 800 mg PO TIDCM [facility] Last Admin: 05/04/18 11:39 Dose: 800 mg - Objective Vital Signs: Vital Signs Temperature 98.2 F 05/04/18 11:00 Pulse Rate 71 05/04/18 11:00 Respiratory Rate 18 05/04/18 11:00 Blood Pressure 160/78 05/04/18 11:00 O2 Sat by Pulse Oximetry (%) 100 05/03/18 00:25 Constitutional: Yes: Calm HENT: Yes: Atraumatic Cardiovascular: Yes: S1, S2 Respiratory: Yes: CTA Bilaterally Gastrointestinal: Yes: Soft, Abdomen, Obese Genitourinary: Yes: Incontinence Musculoskeletal: Yes: Muscle Weakness Edema: No Neurological: Yes: Oriented Labs: CBC, BMP 05/02/18 13:25 05/03/18 15:35 INR, PTT INR 1.07 (0.83-1.09) 05/02/18 13:25 Assessment/Plan Current Medications Generic Name Dose Route Start Last Admin Trade Name Bella PRN Reason Stop Dose Admin Amlodipine Besylate 10 mg 05/03/18 10:00 05/04/18 11:39 Norvasc - PO 10 mg DAILY [facility] Administration Aspirin 325 mg 05/03/18 10:00 05/04/18 11:39 Ecotrin - PO 325 mg DAILY [facility] Administration Carvedilol 25 mg 05/03/18 10:00 05/04/18 11:39 Coreg - PO 25 mg BID [facility] Administration Clonazepam 0.5 mg 05/03/18 10:00 05/04/18 11:39 Klonopin - PO 0.5 mg BID [facility] Administration Clopidogrel Bisulfate 75 mg 05/03/18 10:00 05/04/18 11:39 Plavix - PO 75 mg DAILY [facility] Administration Furosemide 40 mg 05/03/18 14:00 05/04/18 13:41 Lasix - PO 40 mg BIDLASIX [facility] Administration Sodium Chloride 1,000 mls @ 42 mls/hr 05/02/18 13:30 05/02/18 16:52 Normal Saline - IV 42 mls/hr ASDIR [facility] Administration Levetiracetam 500 mg 05/03/18 10:00 05/04/18 11:39 Keppra - PO 500 mg BID [facility] Administration Non-Formulary Medication 145 mcg 05/03/18 10:45 Linaclotide [Linzess] PO DAILY [facility] Non-Formulary Medication 50 mg 05/03/18 22:00 Topiramate [Topiramate Er] PO BID [facility] Sevelamer Carbonate 800 mg 05/03/18 12:00 05/04/18 11:39 Renvela - PO 800 mg TIDCM [facility] Administration Impression 1. ESRD 2. hallucinations 3. DM 4. HLD 5. HTN 6. anemia 7. anxiety 8. seizure Plan - called and set up HD for tomorrow as outpt as she is off schedule - will dialyze here tomorrow if not discharged - d/c fluids - monitor bp - 4 hrs, 2 k bath, epogen 1000, hectorol 3.5, 15 gauge 1 1/4 length - renal diabetic diet
[2018-05-04] MEDS ORDERED: SODIUM CHLORIDE 250 ML IV PRN (15:48)
--- NOTE | 2018-05-04 19:33 | PN ---
Progress Note (short form) - Note Progress Note: NEUROLOGY PROGRESS; Events reviewed and discussed with RN's and Dr. Harris. In spite of meds reconciliation, Aisha is certain that she was on Sinemet at home and was taking 1/2 TID since hallucinations started. She is off L-Dopa here, now for two days and is still "seeing cats." MRI of brain (reviewed): shows moderate, diffuse atrophy, ex vacuo hydrocephalus and severe, diffuse white matter microvascular changes. EXAM: Unchanged. Blind OS, <20/2/400 OD Mild R drift. Decreased BILLY's B/L Areflexic + Cogwheeling. In NAD. No c/o Leg pain. IMP: Parkinsons disease/Parkinson's disease psychosis Severe, NURSE WOUND, microvascular disease. Seizure disorder Toxic-metabolic encephalopathy due to Uremia SUGGEST: Observe off L-Dopa for now. Continue Levetiracetam 500 mg BID Neuro f/u 05/10/18 for Pimavanserin (Nuplazid) Rx. Thank you very much, Simone Faye MD
[2018-05-04 19:41] VITALS: TEMP 98.3
[2018-05-04 23:20] VITALS: BP 148/72; PULSE 70
[2018-05-05] MEDS ORDERED: EPOETIN ALFA 2,000 UNIT/1 ML VIAL IVPUSH ONE (15:48)
== END 2018-05-04 23:00 | DRG 56 ==
LOC: JER 11:32 → UNDOADMOB 16:42 → INTOOBSV 16:42 → JERBED 16:42 → J8W 05-03 01:21 → JERBED 05-03 01:21 → J8W 05-03 10:40 → JERBED 05-03 10:40 → OBSVTOIN 05-04 11:19
PROVIDERS: ADMIT Internal Medicine; ATTEND Internal Medicine
PROC: 5A1D70Z Performance of Urinary Filtration, Intermittent, Less than 6 Hours Per Day (ICD-10-PCS; principal; 2018-05-04)
DX: G20 Parkinson's disease (principal); N18.6 End stage renal disease; G92 Toxic encephalopathy; G81.91 Hemiplegia, unspecified affecting right dominant side; R44.3 Hallucinations, unspecified; I12.0 Hypertensive chronic kidney disease with stage 5 chronic kidney disease or end stage renal disease; Z86.73 Personal history of transient ischemic attack (TIA), and cerebral infarction without residual deficits; E11.22 Type 2 diabetes mellitus with diabetic chronic kidney disease; Z99.2 Dependence on renal dialysis; Z79.4 Long term (current) use of insulin; H40.9 Unspecified glaucoma; D64.9 Anemia, unspecified; E11.51 Type 2 diabetes mellitus with diabetic peripheral angiopathy without gangrene; Z89.429 Acquired absence of other toe(s), unspecified side; E66.9 Obesity, unspecified; E11.42 Type 2 diabetes mellitus with diabetic polyneuropathy; G40.909 Epilepsy, unspecified, not intractable, without status epilepticus; G43.909 Migraine, unspecified, not intractable, without status migrainosus; R44.1 Visual hallucinations; Z68.39 Body mass index [BMI] 39.0-39.9, adult
CPT/HCPCS: 36415; 70450-TC; 70551-TC; 71045-TC-FY; 80053; 81003; 81015; 82465; 82550; 82553; 82565; 82607; 82746; 82962; 83718; 83721; 84478; 84484; 84520; 85025; 85610; 86704; 86706; 86708; 86803; 87086; 87340; 93005; 93010; 99283-25; G0378; J7030

== ENCOUNTER 2018-05-05 11:58 | Observation (INO) | payer OTHER ==
--- NOTE | 2018-05-05 12:53 | PDOC ---
History of Present Illness - General Chief Complaint: Dialysis Shunt Problem Stated Complaint: ESRD Time Seen by Provider: 05/05/18 12:13 History Source: Patient, EMS, Other (SNF called ahead) - History of Present Illness Initial Comments: 05/05/18 12:36 52YOF with h/o seizures, HTN, TIA/Strokes, ESRD (M/W/F HD but recently got off schedule and last HD was 03/02/19), and IDDM, who presents from her SNF [facility] because she had an appointment for HD today but the SNF was not able to set up transportation for her to go to the HD clinic. They sent her here to the ED for HD instead. Per SNF, she is supposed to get HD at [address] The patient was recently admitted to [facility] for AMS and hallucinations, had HD here 2 days ago, was discharged yesterday evening after having HD set up for today. The patient herself is alert and oriented but drowsy and states feeling tired. She denies any f/c/n/v/d/c, chest pain, palpitations, SOB, abdominal pain, new swelling, or other symptoms. Past History - Past Medical History Allergies/Adverse Reactions: Allergies Allergy/AdvReac Type Severity Reaction Status Date / Time amoxicillin [Amoxicillin] Allergy Severe Itching Verified 05/05/18 12:20 hydrocodone bitartrate Allergy Severe Hives,ITCHI Verified 05/05/18 12:20 [From Vicodin] NG morphine Allergy Severe Itching Verified 05/05/18 12:20 neomycin [Neomycin] Allergy Severe Swelling Verified 05/05/18 12:20 oxycodone HCl [From Percocet] Allergy Severe Itching,HIV Verified 05/05/18 12:20 ES rofecoxib [From Vioxx] Allergy Severe Hives Verified 05/05/18 12:20 Sulfa (Sulfonamide Allergy Severe sclera Verified 05/05/18 12:20 Antibiotics) reddened,ITCHING tramadol Allergy Severe Vomiting Verified 05/05/18 12:20 tomato Allergy Verified 05/05/18 12:20 grapefruit [Grapefruit] AdvReac Severe CAN'T TAKE Verified 05/05/18 12:20 BECAUSE OF MEDICATIONS vancomycin AdvReac Mild red man Verified 05/05/18 12:20 syndrome Heparin Analogues AdvReac Unknown Verified 05/05/18 12:20 [Heparin Agents] flu shot Allergy Severe GETS FLU Uncoded 05/05/18 12:20 SYMPTOMS grape juice AdvReac Severe Uncoded 05/05/18 12:20 Home Medications: Ambulatory Orders Albuterol 0.083% Nebulizer Bonita [Ventolin 0.083% Nebulizer Soln -] 1 amp NEB DAILY 05/02/18 Amlodipine Besylate [Norvasc -] 10 mg PO DAILY 05/02/18 Aspirin [Aspirin EC] 325 mg PO DAILY 05/02/18 Atorvastatin Ca [Lipitor] 80 mg PO HS 05/02/18 Bupropion HCl [Wellbutrin Xl] 300 mg PO HS 05/02/18 Carvedilol [Coreg -] 25 mg PO BID 05/02/18 Clopidogrel Bisulfate [Plavix] 75 mg PO DAILY 05/02/18 Folic Acid/Vit B Complex and C [Folbee Plus Tablet] 5 mg PO DAILY 05/02/18 Furosemide [Lasix] 40 mg PO BID 05/02/18 Insulin Glargine,Hum.rec.anlog [Lantus Solostar PEN -] 7 units SQ HS 05/02/18 Insulin Sliding Scale [Novolog Vial Sliding Scale -] 0 units SQ TIDAC 05/02/18 Linaclotide [Linzess] 145 mcg PO DAILY 05/02/18 Sennosides [Senna] 17.2 mg GT HS 05/02/18 Sevelamer Carbonate [Renvela -] 800 mg PO TID 05/02/18 Topiramate [Topiramate ER] 50 mg PO BID 05/02/18 clonazePAM [Klonopin -] 0.5 mg PO BID 05/02/18 levETIRAcetam [Keppra -] 500 mg PO BID 05/02/18 Anemia: Yes Asthma: Yes Cancer: No Cardiac Disorders: No CVA: Yes (TIA 2016, last 2016, tia x7) COPD: No CHF: No Dementia: No Diabetes: Yes Dialysis: Yes (m,w,f) GI Disorders: Yes (gerd) Disorders: No HTN: Yes Hypercholesterolemia: Yes Liver Disease: No Psychiatric Problems: Yes (ANXIETY.) Seizures: Yes Thyroid Disease: No - Surgical History Abdominal Surgery: No Appendectomy: No Cardiac Surgery: Yes (AV graft right arm) Cholecystectomy: No Lung Surgery: No Neurologic Surgery: No Orthopedic Surgery: No - Immunization History Td Vaccination: No TDAP Vaccination: No Immunization Up to Date: Yes - Suicide/Smoking/Psychosocial Hx Smoking Status: No Smoking History: Unknown if ever smoked Have you smoked in the past 12 months: No Number of Cigarettes Smoked Daily: 0 Information on smoking cessation initiated: No Hx Alcohol Use: No Drug/Substance Use Hx: No Substance Use Type: None, Alcohol Hx Substance Use Treatment: No Review of Systems - Review of Systems Able to Perform ROS?: Yes Comments:: GEN: generalized weakness, drowsy, tired, no fever, chills, malaise, or weight change HEENT: no ear pain, sore throat, vision change, or eye pain CV: no chest pain, palpitations, lightheadedness, syncope, or edema RESP: no cough, wheezing, or SOB GI: no abdominal pain, nausea, vomiting, diarrhea, constipation, or white/black/ bloody stool : no dysuria, hematuria, incontinence, retention, bleeding, or discharge MSK: diffuse swelling, no neck/back pain, muscle weakness/pain, or joint swelling/pain NEURO: no headache, seizure, vertigo, numbness, tingling, or focal weakness PSYCH: no substance use, no behavior change SKIN: no jaundice, no rash ROS otherwise negative except as noted in HPI *Physical Exam - Vital Signs Last Vital Signs Temp Pulse Resp BP Pulse Ox 98.6 F 64 18 174/77 H 98 05/05/18 12:16 05/05/18 12:16 05/05/18 12:16 05/05/18 12:16 05/05/18 12:16 - Physical Exam Comments: GENERAL: drowsy but arousable, answers questions after some lag time, GCS is 15 , alert and oriented, obese HEENT: moderate periorbital edema, +exophthalmos, PERRLA, EOMI, moist mucous membranes NECK/BACK: no spinal stepoff or deformity, no hematoma, neck supple CARDIOVASCULAR: regular rate/rhythm, normal S1S2, no MGR, capillary refill <2 seconds, extremities wwp, no edema LUNGS/RESPIRATORY: nononlabored respirations, lungs CTAB GI/ABDOMEN: symmetric [id number], normoactive BS, soft, no midline pulsatile masses, no organomegaly : normal external appearance, no lesions, no swelling, non-malodorous EXTREMITIES: no muscle atrophy, no acute deformity, no edema SKIN: warm and dry, no pallor, no jaundice, no rash, no bruising, no skin breakdown, no cuts NEUROLOGICAL: Not alert or oriented, CN II-XII grossly intact, no obvious facial droop, otherwise patient is unable to participate in exam Moderate Sedation - Procedure Monitoring Vital Signs: Procedure Monitoring Vital Signs Temperature 98.6 F 05/05/18 12:16 Pulse Rate 64 05/05/18 12:16 Respiratory Rate 18 05/05/18 12:16 Blood Pressure 174/77 H 05/05/18 12:16 O2 Sat by Pulse Oximetry (%) 98 05/05/18 12:16 Heart Score/ECG Review #1 05/05/18 12:46 NSR rate 64 with normal axis/intervals, no ischemic ST-T changes ED Treatment Course - LABORATORY CBC & Chemistry Diagram: 05/05/18 13:22 05/05/18 13:22 Medical Decision Making - Medical Decision Making 05/05/18 12:56 52YOF with ESRD and prior TIA p/w AMS, drowsiness, tiredness, swelling. Sent by SNF because she had HD scheduled today at HD clinic, but SNF was unable to set up transport to this appointment. Initial Vital Signs Temp Pulse Resp BP Pulse Ox 98.6 F 64 18 174/77 H 98 05/05/18 12:16 05/05/18 12:16 05/05/18 12:16 05/05/18 12:16 05/05/18 12:16 Exam: As noted in Physical Exam section. DDX IBNLT: uremic encephalopathy, hypoglycemia, hyperkalemia, arrhythmia, CHF exacerbation, pulmonary edema, hyperammonemia, W/U ordered: EKG CXR Labs as noted below TX ordered: EKG: Reviewed; results as noted in ECG Review section. Laboratory Tests 05/05/18 05/05/18 05/05/18 13:22 13:22 13:22 WBC 6.1 RBC 3.15 L Hgb 11.9 Hct 35.1 MCV 111.5 H MCH 37.9 H MCHC 33.9 RDW 17.2 H Plt Count 81 L D MPV 9.2 D Absolute Neuts (auto) 3.8 Neutrophils % 61.8 Lymphocytes % 23.4 D Monocytes % 11.1 H Eosinophils % 3.0 Basophils % 0.7 Nucleated RBC % 0 PT with INR INR Sodium 138 Potassium 3.9 Chloride 100 Carbon Dioxide 29 Anion Gap 8 BUN 36 H Creatinine 7.7 H* Creat Clearance w eGFR 5.54 POC Glucometer Random Glucose 92 Calcium 8.8 Total Bilirubin 0.3 AST 23 ALT 8 L Alkaline Phosphatase 64 Ammonia 21.65 Total Protein 6.3 L Albumin 3.1 L TSH 2.90 Blood Type Antibody Screen 05/05/18 05/05/18 05/05/18 13:22 13:22 13:22 WBC RBC Hgb Hct MCV MCH MCHC RDW Plt Count MPV Absolute Neuts (auto) Neutrophils % Lymphocytes % Monocytes % Eosinophils % Basophils % Nucleated RBC % PT with INR 11.20 INR 0.95 Sodium Potassium Chloride Carbon Dioxide Anion Gap BUN Creatinine Creat Clearance w eGFR POC Glucometer Random Glucose Calcium Total Bilirubin AST ALT Alkaline Phosphatase Ammonia Total Protein Albumin TSH Cancelled Blood Type Cancelled Antibody Screen Cancelled 05/05/18 13:22 WBC RBC Hgb Hct MCV MCH MCHC RDW Plt Count MPV Absolute Neuts (auto) Neutrophils % Lymphocytes % Monocytes % Eosinophils % Basophils % Nucleated RBC % PT with INR INR Sodium Potassium Chloride Carbon Dioxide Anion Gap BUN Creatinine Creat Clearance w eGFR POC Glucometer 97 Random Glucose Calcium Total Bilirubin AST ALT Alkaline Phosphatase Ammonia Total Protein Albumin TSH Blood Type Antibody Screen Reassessment: Exam unchanged. 05/05/18 14:24 The Pt is unsafe for discharge at this time. They require further hospital observation, workup, and treatment. Microblog sent to [facility] for admission. Blank Decision to Admit order is placed per ED protocol. Spoke with admitting team district representative, in agreement Pt to be admitted. Decision to Admit order corrected with admitting team covering attendings name. Consult order has been placed to Dr. Sharma and call is placed. 05/05/18 15:[address] Gunter; consult order corrected with his name. 05/05/18 15:05 I spoke with Martin Navarro; Decision to Admit order corrected with Dr. Sanz's name. *DC/Admit/Observation/Transfer Diagnosis at time of Disposition: ESRD (end stage renal disease), Missed dialysis - Discharge Dispostion Condition at time of disposition: Guarded Decision to Admit order: Yes - Referrals - Patient Instructions - Post Discharge Activity
--- NOTE | 2018-05-05 13:01 | PDOC ---
Attending Attestation - Resident Resident Name: Licha Mendoza - ED Attending Attestation I have performed the following: I have examined & evaluated the patient, The case was reviewed & discussed with the resident, I agree w/resident's findings & plan, Exceptions are as noted - Medical Decision Making 05/05/18 12:52 A portion of this note was documented by scribe services under my direction. I have reviewed the details of the note, within reason, and agree with the documentation with the following case summary and management plan written by me. Patient treated in the ED. Nursing notes are reviewed and incorporated into the medical decision-making. Vital signs reviewed. Peripheral IV access obtained by the nurse, laboratory studies are drawn and sent, reviewed and interpreted by myself. Vital Signs Temp Pulse Resp BP Pulse Ox 98.6 F 64 18 174/77 H 98 05/05/18 12:16 05/05/18 12:16 05/05/18 12:16 05/05/18 12:16 05/05/18 12:16 52-year-old female history of seizures, hypertension, TIA, end stage renal disease on dialysis Monday, Monday, Monday with right upper extremity graft, diabetes presents from alf for missed dialysis. The patient last had dialysis 2 days ago. Was discharged last night. Today, was unable to get transportation to dialysis. However, since 2 days ago, the patient started to get become increasingly drowsy but without other complaints. The patient will need dialysis. However, I am concerned about elevated uremia given the drowsiness. Will obtain labs to evaluate for metabolics such as K. Consult nephrology. Admit. <Ti Kim - Last Filed: 05/05/18 13:06> - HPI HPI: 05/05/18 13:52 The patient is a 52 year old female, with a significant past medical history of Asthma, Anemia, seizures, HTN, TIA/Strokes, ESRD (M/W/F HD last HD was 03/02/19 ), and IDDM, who presents to the emergency department from her [facility] for HD because her SNF was not able to set up transportation for her to go to the HD clinic. Per SNF, she is supposed to get HD at [address] (M/E/F) but has gotten off schedule. The patient had HD 2 days ago at [facility] and was discharged yesterday evening after having HD set up for today. The patient denies chest pain, shortness of breath, or any other symptoms. Allergies: amoxicillin, hydrocodone bitartrate, morphine, neomycin, oxycodone HCl, rofecoxib, Sulfa, tramadol, tomato, grapefruit, flu shot, and grape juice. Past surgical history: AV graft right arm Social history: None reported - Physicial Exam PE: 05/05/18 13:53 GENERAL: (+) obese. Awake, alert, and fully oriented, in no acute distress HEAD: No signs of trauma ENT: (+) moderate periorbital edema. (+) exophthalmos. Auricles normal inspection, hearing grossly normal, nares patent, oropharynx clear without exudates. Moist mucosa HEART: Regular rate and rhythm, normal S1 and S2, no murmurs, rubs or gallops ABDOMEN: Soft, nontender, normoactive bowel sounds. No guarding, no rebound. No masses EXTREMITIES: Normal range of motion, no edema. No clubbing or cyanosis. No cords , erythema, or tenderness NEUROLOGICAL: Cranial nerves II through XII grossly intact. Normal speech. SKIN: Warm, Dry, normal turgor, no rashes or lesions noted. <Gabino Milton - Last Filed: 05/05/18 13:54> Heart Score/ECG Review #1 ECG reviewed & interpreted by me at: 12:50 05/05/18 13:07 NSR 64, no std/monroe, normal axis, normal intervals, T wave flat III, QTC 425 msec <Ti Kim - Last Filed: 05/05/18 13:06> Attestations - Attestations 05/05/18 13:54 Documentation prepared by Gabino Milton, acting as medical record transcriber for Ti Kim MD, <Gabino Milton - Last Filed: 05/05/18 13:54>
[2018-05-05 13:37] LABS: BASO % 0.7 % (0-2.0); HEMATOCRIT 35.1 % (32.4-45.2); HEMOGLOBIN 11.9 GM/dL (10.7-15.3); LYMPH % 23.4 % (8-40); MCH 37.9 pg (25.7-33.7); MCHC 33.9 g/dl (32.0-36.0); MEAN CELL VOLUME 111.5 fl (80-96); MEAN PLT VOLUME 9.2 fl (7.5-11.1); MONO % 11.1 % (3.8-10.2); NEUT % 61.8 % (42.8-82.8); PLATELET COUNT 81 K/MM3 (134-434); RBC 3.15 M/mm3 (3.60-5.2); RDW 17.2 % (11.6-15.6); WHITE BLOOD COUNT 6.1 K/mm3 (4.0-10.0)
[2018-05-05 13:49] LABS: INR 0.95 (0.83-1.09); PROTHROMBIN TIME (PATIENT) 11.2 SEC (9.7-13.0)
[2018-05-05 14:15] LABS: ALBUMIN 3.1 g/dl (3.4-5.0); ALK PHOS 64 U/L (45-117); ANION GAP 8 MMOL/L (8-16); BILIRUBIN,TOTAL 0.3 mg/dL (0.2-1); BLOOD UREA NITROGEN 36 mg/dL (7-18); CALCIUM 8.8 mg/dL (8.5-10.1); CHLORIDE 100 mmol/L (98-107); CO2 29 mmol/L (21-32); GLUCOSE,RANDOM 92 mg/dL (74-106); POTASSIUM 3.9 mmol/L (3.5-5.1); SGOT/AST 23 U/L (15-37); SGPT/ALT 8 U/L (13-61); SODIUM 138 mmol/L (136-145); TOT PROT 6.3 g/dl (6.4-8.2)
[2018-05-05 14:18] LABS: CREATININE 7.7 mg/dL (0.55-1.3)
--- NOTE | 2018-05-05 14:54 | HP ---
CHIEF COMPLAINT: missed HD due to transportation PCP: Dr Parr HISTORY OF PRESENT ILLNESS: 52YOF with h/o seizures, HTN, TIA/Strokes, ESRD (M/W/F HD ), and IDDM, who presents from her SNF rehab ([facility] because she had an appointment for HD today but the SNF was not able to set up transportation for her to go to the HD clinic. They sent her here to the ED for HD instead. Per SNF rehab , she is supposed to get HD at [address] The patient was recently admitted to [facility] for AMS and hallucinations, had HD here 2 days ago, was discharged yesterday evening after having HD set up for today. The patient herself is alert and oriented but drowsy and states feeling tired. She denies any fever , chills, but reports Nausea and vomiting x1 in AM , last meal breakfast this AM denies any chest pain , SOB , palpittaion , abdominal pain , urinary symptoms, leg selling , reports headache 10/10 frontal , comes and goes improved with advil or tylenol no recent cold or URI , denies any sick contact ER course was notable for: (1) BGM (2)Saline lock (3)cbc, cmp, Nephro consult Dr parr Recent Travel: Denies PAST MEDICAL HISTORY: ESRD on HD (MWF), CVA (with R Hemiparesis), TIA, Seizure disorder, HTN, HLD, GERD, Asthma, Migraines, IDDM, Left eye blindness, Right carotid occlusion PAST SURGICAL HISTORY: AV Fistula R Arm Social History: Smoking: Denies Alcohol: Denies Drugs: Denies Ambulation: WheelChair, Walker Family History: Denies Allergies amoxicillin [Amoxicillin] Allergy (Severe, Verified 05/05/18 12:20) Itching hydrocodone bitartrate [From Vicodin] Allergy (Severe, Verified 05/05/18 12:20) Hives,ITCHING morphine Allergy (Severe, Verified 05/05/18 12:20) Itching neomycin [Neomycin] Allergy (Severe, Verified 05/05/18 12:20) Swelling oxycodone HCl [From Percocet] Allergy (Severe, Verified 05/05/18 12:20) Itching,HIVES rofecoxib [From Vioxx] Allergy (Severe, Verified 05/05/18 12:20) Hives Sulfa (Sulfonamide Antibiotics) Allergy (Severe, Verified 05/05/18 12:20) sclera reddened,ITCHING tramadol Allergy (Severe, Verified 05/05/18 12:20) Vomiting tomato Allergy (Verified 05/05/18 12:20) grapefruit [Grapefruit] Adverse Reaction (Severe, Verified 05/05/18 12:20) CAN'T TAKE BECAUSE OF MEDICATIONS vancomycin Adverse Reaction (Mild, Verified 05/05/18 12:20) red man syndrome Heparin Analogues [Heparin Agents] Adverse Reaction (Unknown, Verified 05/05/18 12:20) OF 09/14/14, PT IS ABLE TO TAKE WITH MONITORING OF SYMPTOMS flu shot Allergy (Severe, Uncoded 05/05/18 12:20) GETS FLU SYMPTOMS grape juice Adverse Reaction (Severe, Uncoded 05/05/18 12:20) HOME MEDICATIONS: Home Medications Medication Instructions Recorded Albuterol 0.083% Nebulizer Bonita 1 amp NEB DAILY 05/02/18 [Ventolin 0.083% Nebulizer Soln -] Amlodipine Besylate [Norvasc -] 10 mg PO DAILY 05/02/18 Aspirin [Aspirin EC] 325 mg PO DAILY 05/02/18 Atorvastatin Ca [Lipitor] 80 mg PO HS 05/02/18 Bupropion HCl [Wellbutrin Xl] 300 mg PO HS 05/02/18 Carvedilol [Coreg -] 25 mg PO BID 05/02/18 Clopidogrel Bisulfate [Plavix] 75 mg PO DAILY 05/02/18 Folic Acid/Vit B Complex and C 5 mg PO DAILY 05/02/18 [Folbee Plus Tablet] Furosemide [Lasix] 40 mg PO BID 05/02/18 Insulin Glargine,Hum.rec.anlog 7 units SQ HS 05/02/18 [Lantus Solostar PEN -] Insulin Sliding Scale [Novolog 0 units SQ TIDAC 05/02/18 Vial Sliding Scale -] Linaclotide [Linzess] 145 mcg PO DAILY 05/02/18 Sennosides [Senna] 17.2 mg GT HS 05/02/18 Sevelamer Carbonate [Renvela -] 800 mg PO TID 05/02/18 Topiramate [Topiramate ER] 50 mg PO BID 05/02/18 clonazePAM [Klonopin -] 0.5 mg PO BID 05/02/18 levETIRAcetam [Keppra -] 500 mg PO BID 05/02/18 REVIEW OF SYSTEMS CONSTITUTIONAL: Absent: fever, chills, diaphoresis, generalized weakness, malaise, loss of appetite, weight change HEENT: Absent: rhinorrhea, nasal congestion, throat pain, throat swelling, difficulty swallowing, mouth swelling, ear pain, eye pain, visual changes CARDIOVASCULAR: Absent: chest pain, syncope, palpitations, irregular heart rate, lightheadedness , peripheral edema RESPIRATORY: Absent: cough, shortness of breath, dyspnea with exertion, orthopnea, wheezing, stridor, hemoptysis GASTROINTESTINAL: Absent: abdominal pain, abdominal distension, nausea, vomiting, diarrhea, constipation, melena, hematochezia GENITOURINARY: Absent: dysuria, frequency, urgency, hesitancy, hematuria, flank pain, genital pain MUSCULOSKELETAL: Absent: myalgia, arthralgia, joint swelling, back pain, neck pain SKIN: Absent: rash, itching, pallor HEMATOLOGIC/IMMUNOLOGIC: Absent: easy bleeding, easy bruising, lymphadenopathy, frequent infections ENDOCRINE: Absent: unexplained weight gain, unexplained weight loss, heat intolerance, cold intolerance NEUROLOGIC: Absent: headache, focal weakness or paresthesias, dizziness, unsteady gait, seizure, mental status changes, bladder or bowel incontinence PSYCHIATRIC: Absent: anxiety, depression, suicidal or homicidal ideation, hallucinations. PHYSICAL EXAMINATION Vital Signs - 24 hr 05/05/18 12:16 Temperature 98.6 F Pulse Rate 64 Respiratory 18 Rate Blood Pressure 174/77 H O2 Sat by Pulse 98 Oximetry (%) GENERAL:AAOx3 , morbid obesity , bed bounded , left toe 4th nd 5th amputation HEAD: NC/AT EYES:PARAG on right eye , left eye legal blind , doll eye, extraocular movements intact on left eye , exopthalmus B/L EARS, NOSE, THROAT: Ears normal, nares patent, oropharynx clear without exudates.dry mucous membranes. NECK: Normal range of motion, supple, obese LUNGS: Breath sounds equal, clear to auscultation bilaterally. No wheezes, and no crackles. No accessory muscle use. HEART: Regular rate and rhythm, normal S1 and S2 without murmur, rub or gallop. ABDOMEN: obese, Soft, nontender, not distended, normoactive bowel sounds, no guarding, no rebound, UPPER EXTREMITIES: 2+ pulses, warm, well-perfused. No cyanosis. No clubbing. No peripheral edema. Right arm Av fistula , right hand sleever 23 /5 , right hand weakness 2/5 arm flexion and extension , left hand sleever 5/5 left arm 5/5 flexion and extension , LOWER EXTREMITIES: 2+ pulses, warm, well-perfused. No calf tenderness. No peripheral edema. left foot toe amputation 4th and 5t toes , left leg 5/5 hip flexion and extension , leg extension 5/5 , leg flexion 5/5 right leg 0/5proximal and distal NEUROLOGICAL: Cranial nerves II-XII intact except left eye movement . Normal speech. bed bounded PSYCHIATRIC: Cooperative. SKIN: Warm, dry, normal turgor, Laboratory Results - last 24 hr 05/05/18 05/05/18 05/05/18 13:22 13:22 13:22 WBC 6.1 RBC 3.15 L Hgb 11.9 Hct 35.1 MCV 111.5 H MCH 37.9 H MCHC 33.9 RDW 17.2 H Plt Count 81 L D MPV 9.2 D Absolute Neuts (auto) 3.8 Neutrophils % 61.8 Lymphocytes % 23.4 D Monocytes % 11.1 H Eosinophils % 3.0 Basophils % 0.7 Nucleated RBC % 0 PT with INR INR Sodium 138 Potassium 3.9 Chloride 100 Carbon Dioxide 29 Anion Gap 8 BUN 36 H Creatinine 7.7 H* Creat Clearance w eGFR 5.54 POC Glucometer Random Glucose 92 Calcium 8.8 Total Bilirubin 0.3 AST 23 ALT 8 L Alkaline Phosphatase 64 Ammonia 21.65 Total Protein 6.3 L Albumin 3.1 L TSH 2.90 Blood Type Antibody Screen 05/05/18 05/05/18 05/05/18 13:22 13:22 13:22 WBC RBC Hgb Hct MCV MCH MCHC RDW Plt Count MPV Absolute Neuts (auto) Neutrophils % Lymphocytes % Monocytes % Eosinophils % Basophils % Nucleated RBC % PT with INR 11.20 INR 0.95 Sodium Potassium Chloride Carbon Dioxide Anion Gap BUN Creatinine Creat Clearance w eGFR POC Glucometer Random Glucose Calcium Total Bilirubin AST ALT Alkaline Phosphatase Ammonia Total Protein Albumin TSH Cancelled Blood Type Cancelled Antibody Screen Cancelled 05/05/18 13:22 WBC RBC Hgb Hct MCV MCH MCHC RDW Plt Count MPV Absolute Neuts (auto) Neutrophils % Lymphocytes % Monocytes % Eosinophils % Basophils % Nucleated RBC % PT with INR INR Sodium Potassium Chloride Carbon Dioxide Anion Gap BUN Creatinine Creat Clearance w eGFR POC Glucometer 97 Random Glucose Calcium Total Bilirubin AST ALT Alkaline Phosphatase Ammonia Total Protein Albumin TSH Blood Type Antibody Screen CBC, BMP 05/05/18 13:22 05/05/18 13:22 EKG: NSR , QTC 425 , No St, T wave changes ASSESSMENT/PLAN: 52 y/o F with PMHx of ESRD on HD (MWF), CVA (with R Hemiparesis), Seizure disorder, HTN, IDDM, Left eye blindness presents from SNF rehab after missing HD . #ESRD * on HD M,W, F * BUN/Cr 36/7.7 * Nephrology (Dr. Mike parr ) consulted * for HD today * monitor intake and out put * renal diet * monitor lytes # HTN /CAD * elevated BP 174/77 * Hydralysin 10 mg po once * resume home meds lasix 40 po BID , Coreg 25 mg po BID , norvasc 10 mg po daily * Monitor BP closely # N/V x1 in AM * monitor for now * zofran PRN #IDDM * ISS * BGMs * ACHS * hold long acting insulin as pt is hypoglycemic * last A1c 6.1 on February 2018 # thrombocytopnia / macrocytic anemia * likely 2/2 CKD * cont Folic acid Vit B complex * work up as out pt # Seizure * resume Keppra 500 po BID # History of stroke /TIA with right side residual weakness / hemiplesia / hemiparesis * ASA 325, Plavix 75 mg po daily * Lipitor 80 mg po daily HS # Anxiety /depression * continue clonazepam 0.5 PRN * cont Welbutrin # HLD * resume lipitor 80 mg po HS #Gait instability/Ambulatory dysfunction # Right toe 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 #FEN * PO Fluids * Lytes monitor * renal diet Diet #PPX * DVT: SCDs. ASA , plavix Dispo: Admit to observation services , # Full code Visit type - Emergency Visit Emergency Visit: Yes ED Registration Date: 05/05/18 Care time: The patient presented to the Emergency Department on the above date and was hospitalized for further evaluation of their emergent condition. - New Patient This patient is new to me today: Yes Date on this admission: 05/05/18 - Critical Care Critical Care patient: No
--- NOTE | 2018-05-05 15:29 | EKG ---
Test Reason : Blood Pressure : / mmHG Vent. Rate : 064 BPM Atrial Rate : 064 BPM P-R Int : 206 ms QRS Dur : 088 ms QT Int : 412 ms P-R-T Axes : 034 -09 017 degrees QTc Int : 425 ms NORMAL SINUS RHYTHM NORMAL ECG Confirmed by Jesse Valdez MD ([id number]) on 05/05/2018 3:28:59 PM Referred By: Confirmed By:Jesse Valdez MD
[2018-05-05] MEDS ORDERED: hydrALAZINE HCL 10 MG TABLET PO ONE (16:14)
--- NOTE | 2018-05-05 17:23 | PN ---
Teaching Attending Note Name of Resident: Martin Navarro ATTENDING PHYSICIAN STATEMENT I saw and evaluated the patient. I reviewed the resident's note and discussed the case with the resident. I agree with the resident's findings and plan as documented. 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 She has been doing well since her arrival to [place] last night , with no SOB , cough , fever, or CP/palpitations. per her friend who is with her at bed side, she is at her baseline mentation. she is poor historian. She has been in Rehab for past 2 months, and before that she used to live with her mom at home. She is wheel chair bound due to R sided weakness. during last admission, she was seen by neuro and thought to have some Parkinsonian features and Parkinson's psychosis. OBJECTIVE: NAD , awake, alert , cooperative. Flat affect HEENT: symmetric face, round deformed pupils, sluggish reaction to light , EOMI with slight lag with L gaze. MMM. tongue at mid line. CV: RRR. No MRG Lungs: CTAB Abd: obese, soft, NT, ND, NL BS Ext : trace edema on LE . 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 and R 2nd toe amputation. dry scaly skin on feet Neuro : did not cooperate. can move her LUE and LLE spontaneously . 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 1- ESRD: on HD MWF. missed her Hd today - no signs of volume overload or signs of need for urgent HD. - per d/w ER resident Dr. Basilio, she will get HD tomorrow - cont lasix 40 BID 2- H/o Seizure disorder: - Cont Keppra and topiramate as per out pt dosing - need f/u with neuro as out pt . Dr. purdy saw her 3- H/o DM : sugar is 97. her last A1c in 03/13 was 6.1 . - will dc lantus and not resume any m Meds at dc - need f/u A1c for need to resume treatment if elevated 4- HTN urgency: - give home meds norvasc and coreg - give one time HZN - Monitor 5- dispo : will arrange for HD tomorrow , then can leave to [place] after that.
[2018-05-05] MEDS: INSULIN SLIDING SCALE (NOVOLOG) 1 VIAL SQ SCH (18:32)
[2018-05-05] MEDS: SEVELAMER CARBONATE 800 MG TAB (FP) PO SCH (18:33)
[2018-05-05] MEDS ORDERED: PATIENT'S OWN MEDICATION (NON-FORMULARY) (Bupropion Hcl [Wellbutrin Xl] 300 MG) PO SCH (22:00)
[2018-05-05] MEDS ORDERED: SENNOSIDES 8.6MG TABLET (FP) PO SCH (22:00)
[2018-05-05] MEDS ORDERED: ATORVASTATIN CA 80 MG TABLET (FP) PO SCH (22:00)
[2018-05-05] MEDS ORDERED: TOPIRAMATE 50 MG PO SCH (22:00)
[2018-05-05] MEDS ORDERED: clonazePAM 0.5 MG TABLET PO PRN (22:00)
[2018-05-05] MEDS: levETIRAcetam 500 MG TABLET (FP) PO SCH (22:15)
[2018-05-05] MEDS: CARVEDILOL 25 MG TABLET (FP) PO SCH (22:15)
[2018-05-05] MEDS: TOPIRAMATE 25 MG TABLET (FP) PO SCH (22:15)
[2018-05-06] MEDS: FUROSEMIDE 40 MG TABLET (FP) PO SCH ×2 (06:13→16:31)
[2018-05-06] MEDS: INSULIN SLIDING SCALE (NOVOLOG) 1 VIAL SQ SCH ×3 (06:14→17:14)
[2018-05-06] MEDS: SEVELAMER CARBONATE 800 MG TAB (FP) PO SCH ×4 (08:00→17:44)
[2018-05-06 08:45] LABS: BASO % 0.4 % (0-2.0); EOS % 2.8 % (0-4.5); HEMATOCRIT 32.9 % (32.4-45.2); HEMOGLOBIN 11.1 GM/dL (10.7-15.3); LYMPH % 21.5 % (8-40); MCH 37.2 pg (25.7-33.7); MCHC 33.6 g/dl (32.0-36.0); MEAN CELL VOLUME 110.5 fl (80-96); MEAN PLT VOLUME 9.4 fl (7.5-11.1); MONO % 10.4 % (3.8-10.2); NEUT % 64.9 % (42.8-82.8); PLATELET COUNT 80 K/MM3 (134-434); RBC 2.98 M/mm3 (3.60-5.2); RDW 16.9 % (11.6-15.6)
[2018-05-06 08:51] LABS: INR 0.97 (0.83-1.09); PROTHROMBIN TIME (PATIENT) 11.4 SEC (9.7-13.0)
[2018-05-06 09:19] LABS: ALBUMIN 2.8 g/dl (3.4-5.0); ALK PHOS 57 U/L (45-117); ANION GAP 8 MMOL/L (8-16); BILIRUBIN,TOTAL 0.4 mg/dL (0.2-1); BLOOD UREA NITROGEN 41 mg/dL (7-18); CALCIUM 8.5 mg/dL (8.5-10.1); CHLORIDE 99 mmol/L (98-107); CO2 29 mmol/L (21-32); GLUCOSE,RANDOM 99 mg/dL (74-106); MAGNESIUM 2.5 mg/dL (1.8-2.4); PHOSPHOROUS 3.9 mg/dL (2.5-4.9); POTASSIUM 3.8 mmol/L (3.5-5.1); SGOT/AST 15 U/L (15-37); SGPT/ALT 9 U/L (13-61); SODIUM 137 mmol/L (136-145); TOT PROT 5.5 g/dl (6.4-8.2)
[2018-05-06 09:52] LABS: CREATININE 8.8 mg/dL (0.55-1.3)
[2018-05-06] MEDS ORDERED: CLOPIDOGREL BISULFATE 75 MG TABLET (FP) PO SCH (10:00)
[2018-05-06] MEDS ORDERED: VITAMIN B COMPLEX W/C COMBO TABLET (FP) PO SCH (10:00)
[2018-05-06] MEDS ORDERED: VIT B COMPLEX AND C PO SCH (10:00)
[2018-05-06] MEDS ORDERED: PATIENT'S OWN MEDICATION (NON-FORMULARY) (Linaclotide [Linzess] 145 MCG) PO SCH (10:00)
[2018-05-06] MEDS ORDERED: [UNRECOGNIZED DRUG - OTHER] PO SCH (10:00)
[2018-05-06] MEDS ORDERED: amLODIPine BESYLATE 10 MG TABLET (FP) PO SCH (10:00)
[2018-05-06] MEDS ORDERED: FOLIC ACID PO SCH (10:00)
[2018-05-06] MEDS ORDERED: ASPIRIN 325 MG ENTERIC COATED TABLET (FP) PO SCH (10:00)
[2018-05-06] MEDS ORDERED: ALBUTEROL SO4 0.083% IH SOL 2.5 MG/3 ML VIAL.NEB. NEB SCH (10:00)
[2018-05-06 10:24] VITALS: BMI 38.2
--- NOTE | 2018-05-06 10:24 | CON.NEP ---
Consult Consult Specialty:: nephrology - History of Present Illness Chief Complaint: needs dialysis History of Present Illness: This 52 year old woman presents needing dialysis. 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: CVA Cardio/Vascular: Yes: HTN, Hyperlipdemia, Other (Peripheral vascular disease) Pulmonary: Yes: Asthma, Sleep Apnea Gastrointestinal: Yes: Constipation Renal/: Yes: Renal Failure, Hemodialysis ...LMP: 12/25/17 ...: No Rheumatology: Yes: Other (See HPI) Endocrine: Yes: Diabetes Mellitus - Past Surgical History Past Surgical History: Yes: Amputation, AV Fistula/Graft, - Alcohol/Substance Use Hx Alcohol Use: No - Smoking History Smoking history: Unknown if ever smoked Have you smoked in the past 12 months: No Aproximately how many cigarettes per day: 0 - Social History ADL: Independent History of Recent Travel: No Home Medications - Allergies Allergies/Adverse Reactions: Allergies Allergy/AdvReac Type Severity Reaction Status Date / Time amoxicillin [Amoxicillin] Allergy Severe Itching Verified 05/05/18 12:20 hydrocodone bitartrate Allergy Severe Hives,ITCHI Verified 05/05/18 12:20 [From Vicodin] NG morphine Allergy Severe Itching Verified 05/05/18 12:20 neomycin [Neomycin] Allergy Severe Swelling Verified 05/05/18 12:20 oxycodone HCl [From Percocet] Allergy Severe Itching,HIV Verified 05/05/18 12:20 ES rofecoxib [From Vioxx] Allergy Severe Hives Verified 05/05/18 12:20 Sulfa (Sulfonamide Allergy Severe sclera Verified 05/05/18 12:20 Antibiotics) reddened,ITCHING tramadol Allergy Severe Vomiting Verified 05/05/18 12:20 tomato Allergy Verified 05/05/18 12:20 grapefruit [Grapefruit] AdvReac Severe CAN'T TAKE Verified 05/05/18 12:20 BECAUSE OF MEDICATIONS vancomycin AdvReac Mild red man Verified 05/05/18 12:20 syndrome Heparin Analogues AdvReac Unknown Verified 05/05/18 12:20 [Heparin Agents] flu shot Allergy Severe GETS FLU Uncoded 05/05/18 12:20 SYMPTOMS grape juice AdvReac Severe Uncoded 05/05/18 12:20 - Home Medications Home Medications: Ambulatory Orders Albuterol 0.083% Nebulizer Bonita [Ventolin 0.083% Nebulizer Soln -] 1 amp NEB DAILY 05/02/18 Amlodipine Besylate [Norvasc -] 10 mg PO DAILY 05/02/18 Aspirin [Aspirin EC] 325 mg PO DAILY 05/02/18 Atorvastatin Ca [Lipitor] 80 mg PO HS 05/02/18 Bupropion HCl [Wellbutrin Xl] 300 mg PO HS 05/02/18 Carvedilol [Coreg -] 25 mg PO BID 05/02/18 Clopidogrel Bisulfate [Plavix] 75 mg PO DAILY 05/02/18 Folic Acid/Vit B Complex and C [Folbee Plus Tablet] 5 mg PO DAILY 05/02/18 Furosemide [Lasix] 40 mg PO BID 05/02/18 Insulin Glargine,Hum.rec.anlog [Lantus Solostar PEN -] 7 units SQ HS 05/02/18 Insulin Sliding Scale [Novolog Vial Sliding Scale -] 0 units SQ TIDAC 05/02/18 Linaclotide [Linzess] 145 mcg PO DAILY 05/02/18 Sennosides [Senna] 17.2 mg GT HS 05/02/18 Sevelamer Carbonate [Renvela -] 800 mg PO TID 05/02/18 Topiramate [Topiramate ER] 50 mg PO BID 05/02/18 clonazePAM [Klonopin -] 0.5 mg PO BID 05/02/18 levETIRAcetam [Keppra -] 500 mg PO BID 05/02/18 Review of Systems - Review of Systems Constitutional: reports: No Symptoms Eyes: reports: Blind Spots HENT: reports: No Symptoms Neck: reports: No Symptoms Cardiovascular: reports: Edema Respiratory: reports: No Symptoms Gastrointestinal: reports: No Symptoms Genitourinary: reports: No Symptoms Neurological: reports: Dizziness Endocrine: reports: No Symptoms Hematology/Lymphatic: reports: No Symptoms Psychiatric: reports: No Symptoms Nephrology Consult - Height Height: 5 ft 6 in - Weight Weight: 236 lb 9.6 oz - BMI Body Mass Index (BMI): 38.2 - Lab Results CBC,BMP: CBC, BMP 05/06/18 07:15 05/06/18 07:15 Anion Gap: Anion Gap Anion Gap 8 MMOL/L (8-16) 05/06/18 07:15 - Imaging Chest X-ray: Report Reviewed (no chest pathology) - Physical Examination Vital Signs: Vital Signs Temperature 97.4 F L 05/06/18 09:00 Pulse Rate 70 05/06/18 09:00 Respiratory Rate 20 05/06/18 09:00 Blood Pressure 150/79 05/06/18 09:00 O2 Sat by Pulse Oximetry (%) 96 05/06/18 03:15 Constitutional: Yes: Well Nourished, No Distress Eyes: Yes: Conjunctiva Clear, EOM Intact HENT: Yes: Atraumatic, Normocephalic Neck: Yes: Supple, Trachea Midline Cardiovascular: Yes: Regular Rate and Rhythm Respiratory: Yes: Regular, CTA Bilaterally Gastrointestinal: Yes: Normal Bowel Sounds Edema: No Wound/Incision: Yes: Clean/Dry, Well Approximated Neurological: Yes: Alert, Oriented Psychiatric: Yes: Alert, Oriented Assessment/Plan IMPRESSION esrd dm seizure disorder recent change in mental status likely due to medications PLAN will dialyze today and can be discharged afterwards [facility]
[2018-05-06] MEDS ORDERED: SODIUM CHLORIDE 250 ML IV PRN (10:29)
--- NOTE | 2018-05-06 11:06 | EKG ---
Test Reason : Blood Pressure : / mmHG Vent. Rate : 067 BPM Atrial Rate : 067 BPM P-R Int : 196 ms QRS Dur : 088 ms QT Int : 418 ms P-R-T Axes : 033 -07 018 degrees QTc Int : 441 ms NORMAL SINUS RHYTHM NORMAL ECG WHEN COMPARED WITH ECG OF 05-MAY-2018 12:46, NO SIGNIFICANT CHANGE WAS FOUND Confirmed by Jesse Valdez MD ([id number]) on 05/06/2018 11:05:50 AM Referred By: Jose CARTY Confirmed By:Jesse Valdez MD
[2018-05-06 11:08] LABS: ANISOCYTOSIS 1+; MACROCYTOSIS 2+; OVALOCYTE 1+; PLATELET ESTIMATE DECREASED; TEAR DROP CELLS 1+
--- NOTE | 2018-05-06 12:15 | DS ---
Physical Examination Vital Signs: Vital Signs Temperature 97.8 F 05/06/18 11:00 Pulse Rate 66 05/06/18 11:10 Respiratory Rate 18 05/06/18 11:10 Blood Pressure 159/91 05/06/18 11:10 O2 Sat by Pulse Oximetry (%) 96 05/06/18 03:15 Findings/Remarks: denies any CP , or OSB , dejesus sno DEJESUS . No events over night PE: NAD , awake, alert , cooperative. HEENT: symmetric face, round deformed pupils, MMM CV: RRR. No MRG Lungs: CTAB Abd: obese, soft, NT, ND, NL BS Ext : trace edema on LE . 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 and R 2nd toe amputation. 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 at presentation she was at her base line mentation . her labs indicated CKD but no electrolyte abnormalities. She was seen by renal and given HD on 05/06 and she is to continue her HD on MWF. [place] to arrange transportation to HD At [facility] She was noted to have sugar of 64-128 while here. records reviewed and last A1c was 6.1 in 03/13. I stopped her insulin ( SSI and Levemir ) and she will need BGM at [place] BID AC. and A1c in 4 weeks to determine if she needs any Dm meds ( probably pills if A1c is > 6.5) She was continued onher seizure meds and the rest of her meds and she needs to follow with Dr. Faye as per previous dc plan He BP was elevated but improved after placing her on her HTN meds dispo : return to [place] . time spent 30 min d/w Dr. Elam Condition: Guarded - Instructions Diet, Activity, Other Instructions: - Dialysis treatment was given 05/06. . please follow her routine schedule after that ( Monday , Monday , and Monday ) . dialysis at [facility]. - please arrange transportation to the dialysis . - continue your medications as per pre-admission routine except for insulin. - BP meds might need t obe adjusted - Her A1c was 6.1 in february. her sugar has been 64-128 while here. please hold insulin and check BGM BID AC . - repeat A1c in 4 weeks and determine if she needs any diabetes medications Referrals: Simone Faye MD [Staff Physician] - 1 Week Sebastián Elam MD [Staff Physician] - 1 Week Disposition: CARE HOME FACILITY - Home Medications Comprehensive Discharge Medication List: Ambulatory Orders Albuterol 0.083% Nebulizer Bonita [Ventolin 0.083% Nebulizer Soln -] 1 amp NEB DAILY 05/02/18 Amlodipine Besylate [Norvasc -] 10 mg PO DAILY 05/02/18 Aspirin [Aspirin EC] 325 mg PO DAILY 05/02/18 Atorvastatin Ca [Lipitor] 80 mg PO HS 05/02/18 Bupropion HCl [Wellbutrin Xl] 300 mg PO HS 05/02/18 Carvedilol [Coreg -] 25 mg PO BID 05/02/18 Clopidogrel Bisulfate [Plavix] 75 mg PO DAILY 05/02/18 Folic Acid/Vit B Complex and C [Folbee Plus Tablet] 5 mg PO DAILY 05/02/18 Furosemide [Lasix] 40 mg PO BID 05/02/18 Linaclotide [Linzess] 145 mcg PO DAILY 05/02/18 Sennosides [Senna] 17.2 mg GT HS 05/02/18 Sevelamer Carbonate [Renvela -] 800 mg PO TID 05/02/18 Topiramate [Topiramate ER] 50 mg PO BID 05/02/18 clonazePAM [Klonopin -] 0.5 mg PO BID 05/02/18 levETIRAcetam [Keppra -] 500 mg PO BID 05/02/18 This patient is new to me today: No Emergency Visit: Yes ED Registration Date: 05/05/18 Care time: The patient presented to the Emergency Department on the above date and was hospitalized for further evaluation of their emergent condition. Critical Care patient: No - Discharge Referral Referred to [facility] Med P.C.: No
[2018-05-06 15:07] VITALS: BP 133/78; PULSE 69
[2018-05-06 15:43] VITALS: TEMP 98.1
[2018-05-06] MEDS: CARVEDILOL 25 MG TABLET (FP) PO SCH (16:22)
[2018-05-06] MEDS: TOPIRAMATE 25 MG TABLET (FP) PO SCH (16:22)
[2018-05-06] MEDS: levETIRAcetam 500 MG TABLET (FP) PO SCH (16:22)
== END 2018-05-06 18:40 ==
LOC: JER 11:58 → JERBED 14:41 → J5S 05-06 01:12
PROVIDERS: ADMIT Internal Medicine; ATTEND Internal Medicine
DX: Z91.15 Patient's noncompliance with renal dialysis (principal); E11.22 Type 2 diabetes mellitus with diabetic chronic kidney disease; I12.0 Hypertensive chronic kidney disease with stage 5 chronic kidney disease or end stage renal disease; N18.6 End stage renal disease; Z99.2 Dependence on renal dialysis; Z79.4 Long term (current) use of insulin; I16.0 Hypertensive urgency; G40.909 Epilepsy, unspecified, not intractable, without status epilepticus; D64.9 Anemia, unspecified; J45.909 Unspecified asthma, uncomplicated; E78.5 Hyperlipidemia, unspecified; K21.9 Gastro-esophageal reflux disease without esophagitis; F41.9 Anxiety disorder, unspecified; Z86.73 Personal history of transient ischemic attack (TIA), and cerebral infarction without residual deficits; Z88.1 Allergy status to other antibiotic agents; Z88.2 Allergy status to sulfonamides; Z91.018 Allergy to other foods; Z88.8 Allergy status to other drugs, medicaments and biological substances; R11.2 Nausea with vomiting, unspecified; D69.6 Thrombocytopenia, unspecified; F32.9 Major depressive disorder, single episode, unspecified; R26.81 Unsteadiness on feet; Z89.421 Acquired absence of other right toe(s); G20 Parkinson's disease; H54.40 Blindness, one eye, unspecified eye
CPT/HCPCS: 36415; 71045-TC-FY; 80053; 82140; 82962; 83735; 84100; 84443; 85025; 85610; 85651; 85730; 86140; 93005; 93010; 99285-25; G0378

== ENCOUNTER 2018-05-18 12:12 | Inpatient (IN) | payer OTHER ==
--- NOTE | 2018-05-18 12:34 | PDOC ---
Attending Attestation - HPI HPI: 05/18/18 13:49 The patient is a 52-year-old female with a past medical history significant for ESRD (on HD MWF), hx of TIA, hx of seizure disorder, HTN, HLD, GERD, IDDM presents to the emergency department via EMS from dialysis with s/p slipping off the chair. The patient reports she slid off the chair and hit her bottom on the floor, denies LOC. The patient states shes been having symptoms of a head cold denies any medication use. Per Dr. ha reports, the patient was nonverbally responsive at the dialysis center and sent to the ER for further evaluation. The patient didnt have dialysis today. DEnies nausea, vomiting, diarrhea. Allergies: amoxicillin, hydrocodone bitartrate, morphine, neomycin, oxycodone HCl, rofecoxib, Sulfa, tramadol, tomato, grapefruit, flu shot, and grape juice. PCP: None reported. - Physicial Exam PE: 05/18/18 13:44 GENERAL: Awake, answering questions appropriately. The patient is in no acute distress. HEAD: Normal with no signs of trauma. EYES: PERRLA, EOMI, sclera anicteric, conjunctiva clear. ENT: +Dry mucous membranes. Ears normal, nares patent, oropharynx clear without exudates. NECK: Normal range of motion, supple without lymphadenopathy, JVD, or masses. LUNGS: +rhonchorous breath sounds bilaterally. Breath sounds equal, clear to auscultation bilaterally. No wheezes, and no crackles. HEART:Regular rate and rhythm, normal S1 and S2 without murmur, rub or gallop. ABDOMEN: No abdominal tenderness. Soft, nontender, normoactive bowel sounds. No guarding, no rebound. No masses palpable. EXTREMITIES: +palpable thrill and bruit to the right upper extremity fistula. No lower extremity edema. Normal range of motion, no edema. No clubbing or cyanosis. No erythema, or tenderness. NEUROLOGICAL: Cranial nerves II through XII grossly intact. Normal speech. No focal neurological deficits. MUSCULOSKELETAL: Back nontender to palpation, no CVA tenderness SKIN: Warm, Dry, normal turgor, no rashes or lesions noted. - Medical Decision Making 05/18/18 13:44 Documentation prepared by Malena Leone, acting as medical receptionist medical assistant for Cecilia Rascon MD. <Malena Leone - Last Filed: 05/18/18 13:49> - Resident Resident Name: Tierney Velazquez - ED Attending Attestation I have performed the following: I have examined & evaluated the patient, The case was reviewed & discussed with the resident, I agree w/resident's findings & plan, Exceptions are as noted - Medical Decision Making 05/18/18 15:22 NSR rate of 87 bpm, axis nml, intervals nml, no st elevation or depression, no t wave inversions This patient is very difficult access Will send for CT and X ray Will re assess 05/18/18 16:[address] Welch Labs finally sent Pt signed out to Dr Welch <Cecilia Rascon - Last Filed: 05/19/18 08:33>
--- NOTE | 2018-05-18 12:36 | PDOC ---
History of Present Illness <Alaina Welch - Last Filed: 05/18/18 17:51> - History of Present Illness Initial Comments: 05/18/18 12:29 The patient is a 52 year old female, with a significant past medical history of Asthma, Anemia, seizures, HTN, TIA/Strokes, ESRD (M/W/F) and IDDM, who presents to the emergency department from dialysis [facility] after sliding down a chair onto her bottom. She is alert and oriented x3 and denies head trauma or neck trauma. She admits to some headaches, but denies nausea, vomiting, diarrhea , constipation, abdominal pain, chest pain or shortness of breath. Denies pain or swelling in any other extremities. The patient still makes urine. She has had 4 days of cough productive of yellow and white phlegm. She notes that she had a head cold [address] Vincent who is the patient's metal fabricator is at bedside. Dialysis center was called at bedside who reports that the patient was being transported to dialysis, went into the building, but was not verbally responsive to dialysis nurse. No shaking or tremors were noted. EMS reports that per dialysis center she is at baseline. The patient denies chest pain, shortness of breath, or any other symptoms. Allergies: amoxicillin, hydrocodone bitartrate, morphine, neomycin, oxycodone HCl, rofecoxib, Sulfa, tramadol, tomato, grapefruit, flu shot, and grape juice. Past surgical history: AV graft right arm Social history: None reported <Tierney Velazquez - Last Filed: 05/18/18 18:31> - General Chief Complaint: Altered Mental Status Stated Complaint: Altered Mental Status Time Seen by Provider: 05/18/18 12:22 Past History <Alaina Welch Jakejason - Last Filed: 05/18/18 17:51> - Past Medical History Anemia: Yes Asthma: Yes Cancer: No Cardiac Disorders: No CVA: Yes (TIA 2016, last 2016, tia x7) COPD: No CHF: No Dementia: No Diabetes: Yes Dialysis: Yes (m,w,f) GI Disorders: Yes (gerd) Disorders: No HTN: Yes Hypercholesterolemia: Yes Liver Disease: No Psychiatric Problems: Yes (ANXIETY.) Seizures: Yes Thyroid Disease: No - Surgical History Abdominal Surgery: No Appendectomy: No Cardiac Surgery: Yes (AV graft right arm) Cholecystectomy: No Lung Surgery: No Neurologic Surgery: No Orthopedic Surgery: No - Immunization History Td Vaccination: No TDAP Vaccination: No Immunization Up to Date: Yes - Suicide/Smoking/Psychosocial Hx Smoking Status: No Smoking History: Never smoked Have you smoked in the past 12 months: No Number of Cigarettes Smoked Daily: 0 Information on smoking cessation initiated: No Hx Alcohol Use: No Drug/Substance Use Hx: No Substance Use Type: None, Alcohol Hx Substance Use Treatment: No <Tierney Velazquez - Last Filed: 05/18/18 18:31> - Past Medical History Allergies/Adverse Reactions: Allergies Allergy/AdvReac Type Severity Reaction Status Date / Time amoxicillin [Amoxicillin] Allergy Severe Itching Verified 05/18/18 12:25 hydrocodone bitartrate Allergy Severe Hives,ITCHI Verified 05/18/18 12:25 [From Vicodin] NG morphine Allergy Severe Itching Verified 05/18/18 12:25 neomycin [Neomycin] Allergy Severe Swelling Verified 05/18/18 12:25 oxycodone HCl [From Percocet] Allergy Severe Itching,HIV Verified 05/18/18 12:25 ES rofecoxib [From Vioxx] Allergy Severe Hives Verified 05/18/18 12:25 Sulfa (Sulfonamide Allergy Severe sclera Verified 05/18/18 12:25 Antibiotics) reddened,ITCHING tramadol Allergy Severe Vomiting Verified 05/18/18 12:25 tomato Allergy Verified 05/18/18 12:25 grapefruit [Grapefruit] AdvReac Severe CAN'T TAKE Verified 05/18/18 12:25 BECAUSE OF MEDICATIONS vancomycin AdvReac Mild red man Verified 05/18/18 12:25 syndrome Heparin Analogues AdvReac Unknown Verified 05/18/18 12:25 [Heparin Agents] flu shot Allergy Severe GETS FLU Uncoded 05/18/18 12:25 SYMPTOMS grape juice AdvReac Severe Uncoded 05/18/18 12:25 Home Medications: Ambulatory Orders Albuterol 0.083% Nebulizer Bonita [Ventolin 0.083% Nebulizer Soln -] 1 amp NEB DAILY 05/02/18 Amlodipine Besylate [Norvasc -] 10 mg PO DAILY 05/02/18 Aspirin [Aspirin EC] 325 mg PO DAILY 05/02/18 Atorvastatin Ca [Lipitor] 80 mg PO HS 05/02/18 Bupropion HCl [Wellbutrin Xl] 300 mg PO HS 05/02/18 Carvedilol [Coreg -] 25 mg PO BID 05/02/18 Clopidogrel Bisulfate [Plavix] 75 mg PO DAILY 05/02/18 Folic Acid/Vit B Complex and C [Folbee Plus Tablet] 5 mg PO DAILY 05/02/18 Furosemide [Lasix] 40 mg PO BID 05/02/18 Linaclotide [Linzess] 145 mcg PO DAILY 05/02/18 Sennosides [Senna] 17.2 mg GT HS 05/02/18 Sevelamer Carbonate [Renvela -] 800 mg PO TID 05/02/18 Topiramate [Topiramate ER] 50 mg PO BID 05/02/18 clonazePAM [Klonopin -] 0.5 mg PO BID 05/02/18 levETIRAcetam [Keppra -] 500 mg PO BID 05/02/18 *Physical Exam - Vital Signs Last Vital Signs Temp Pulse Resp BP Pulse Ox 101.0 F H 85 16 142/82 100 05/18/18 13:32 05/18/18 12:19 05/18/18 12:19 05/18/18 12:19 05/18/18 12:19 <Alaina Welch - Last Filed: 05/18/18 17:51> - Vital Signs Last Vital Signs Temp Pulse Resp BP Pulse Ox 101.3 F H 85 16 142/82 100 05/18/18 12:19 05/18/18 12:19 05/18/18 12:19 05/18/18 12:19 05/18/18 12:19 - Physical Exam Comments: 05/18/18 13:55 + coarse breath sounds anteriorly <Tierney Velazquez - Last Filed: 05/18/18 18:31> Moderate Sedation - Procedure Monitoring Vital Signs: Procedure Monitoring Vital Signs Temperature 101.0 F H 05/18/18 13:32 Pulse Rate 85 05/18/18 12:19 Respiratory Rate 16 05/18/18 12:19 Blood Pressure 142/82 05/18/18 12:19 O2 Sat by Pulse Oximetry (%) 100 05/18/18 12:19 <Alaina Welch - Last Filed: 05/18/18 17:51> - Procedure Monitoring Vital Signs: Procedure Monitoring Vital Signs Temperature 101.3 F H 05/18/18 12:19 Pulse Rate 85 05/18/18 12:19 Respiratory Rate 16 05/18/18 12:19 Blood Pressure 142/82 05/18/18 12:19 O2 Sat by Pulse Oximetry (%) 100 05/18/18 12:19 <Tierney Velazquez - Last Filed: 05/18/18 18:31> ED Treatment Course - LABORATORY CBC & Chemistry Diagram: 05/18/18 16:26 05/18/18 16:26 - ADDITIONAL ORDERS Additional order review: Laboratory Results 05/18/18 05/18/18 05/18/18 16:26 16:26 16:26 PT with INR INR PTT (Actin FS) VBG pH 7.39 POC VBG pCO2 41.7 POC VBG pO2 37.0 Mixed VBG HCO3 24.9 Sodium 138 Potassium 4.2 Chloride 104 Carbon Dioxide 27 Anion Gap 7 L BUN 40 H Creatinine 9.0 H* Creat Clearance w eGFR 4.63 Random Glucose 83 Lactic Acid 0.7 Calcium 9.5 Total Bilirubin 0.3 AST 18 ALT 16 Alkaline Phosphatase 63 Total Protein 6.4 Albumin 3.1 L 05/18/18 16:26 PT with INR 13.10 H INR 1.11 H PTT (Actin FS) 28.5 VBG pH POC VBG pCO2 POC VBG pO2 Mixed VBG HCO3 Sodium Potassium Chloride Carbon Dioxide Anion Gap BUN Creatinine Creat Clearance w eGFR Random Glucose Lactic Acid Calcium Total Bilirubin AST ALT Alkaline Phosphatase Total Protein Albumin 05/18/18 16:26 RBC 2.72 L MCV 110.0 H MCHC 33.5 RDW 16.5 H MPV 8.8 Neutrophils % 89.0 H D Lymphocytes % 5.2 L D Monocytes % 4.9 Eosinophils % 0.4 D Basophils % 0.5 - Medications Given in the ED: ED Medications Discontinued Medications Generic Name Dose Route Start Last Admin Trade Name Freq PRN Reason Stop Dose Admin Acetaminophen 1,000 mg 05/18/18 12:34 05/18/18 16:24 Ofirmev Injection - IVPB 05/18/18 12:35 Not Given ONCE ONE Acetaminophen 650 mg 05/18/18 15:12 05/18/18 16:22 Tylenol - PO 05/18/18 15:13 650 mg ONCE ONE Administration Albuterol/Ipratropium 1 amp 05/18/18 12:51 05/18/18 13:00 Duoneb - NEB 05/18/18 12:52 1 amp ONCE ONE Administration <Alaina Welch - Last Filed: 05/18/18 17:51> - LABORATORY CBC & Chemistry Diagram: 05/18/18 16:26 05/18/18 16:26 <Tierney Velazquez - Last Filed: 05/18/18 18:31> Medical Decision Making - Medical Decision Making 05/18/18 13:55 ED Course: consider causes for ams including infectious vs seizure vs tia/cva vs hypoglycemia vs acs vs arrythmia cbc, cmp, trop, ekg, cxr, blood cx, urine cx, ua, keppra level patient with fever of 101.3F tylenol dosed <Tierney Velazquez - Last Filed: 05/18/18 18:31> *DC/Admit/Observation/Transfer - Discharge Dispostion Decision to Admit order: Yes <Alaina Welch - Last Filed: 05/18/18 17:51> - Discharge Dispostion Decision to Admit order: Yes <Tierney Velazquez - Last Filed: 05/18/18 18:31> Diagnosis at time of Disposition: Influenza A - Discharge Dispostion Condition at time of disposition: Guarded
[2018-05-18] MEDS ORDERED: ALBUTEROL SO4 2.5/IPRATROPIUM 0.5 INH SOL 3 ML VIAL.NEB. NEB ONE ×2 (12:51→13:04)
[2018-05-18] MEDS ORDERED: ACETAMINOPHEN INJECTION 100 ML IVPB ONE (13:05)
[2018-05-18] MEDS: ACETAMINOPHEN 1000 MG/100 ML VIAL (NON FORMULARY) IVPB ONE ×2 (13:13→16:24)
--- NOTE | 2018-05-18 14:51 | CONSULT ---
Consult Consult Specialty:: Nephrology Reason for Consultation:: ESRD - History of Present Illness Chief Complaint: sent in for altered mental status History of Present Illness: Pt is a 52 year old female with pmhx of asthma, anemia, esrd, dm, htn cva, tia who was sent in from HD for altered mental status. She slipped out of her chair and was not responsive. She was sent to the ER for eval. She is now awake but does not seem to remember what happened. She denies shortness of breath. She denies chest pain. Her last HD was on Monday. She does seem more agitated than she usually is. SHe did have a cough. 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 Cardio/Vascular: Yes: HTN, Hyperlipdemia, Other (Peripheral vascular disease) Pulmonary: Yes: Asthma, Sleep Apnea Gastrointestinal: Yes: Constipation Renal/: Yes: Renal Failure, Hemodialysis ...LMP: 12/25/17 Rheumatology: Yes: Other (See HPI) Endocrine: Yes: Diabetes Mellitus - Past Surgical History Past Surgical History: Yes: Amputation, AV Fistula/Graft, - Alcohol/Substance Use Hx Alcohol Use: No - Smoking History Smoking history: Never smoked Have you smoked in the past 12 months: No Aproximately how many cigarettes per day: 0 - Social History ADL: Independent History of Recent Travel: No Home Medications - Allergies Allergies/Adverse Reactions: Allergies Allergy/AdvReac Type Severity Reaction Status Date / Time amoxicillin [Amoxicillin] Allergy Severe Itching Verified 05/18/18 12:25 hydrocodone bitartrate Allergy Severe Hives,ITCHI Verified 05/18/18 12:25 [From Vicodin] NG morphine Allergy Severe Itching Verified 05/18/18 12:25 neomycin [Neomycin] Allergy Severe Swelling Verified 05/18/18 12:25 oxycodone HCl [From Percocet] Allergy Severe Itching,HIV Verified 05/18/18 12:25 ES rofecoxib [From Vioxx] Allergy Severe Hives Verified 05/18/18 12:25 Sulfa (Sulfonamide Allergy Severe sclera Verified 05/18/18 12:25 Antibiotics) reddened,ITCHING tramadol Allergy Severe Vomiting Verified 05/18/18 12:25 tomato Allergy Verified 05/18/18 12:25 grapefruit [Grapefruit] AdvReac Severe CAN'T TAKE Verified 05/18/18 12:25 BECAUSE OF MEDICATIONS vancomycin AdvReac Mild red man Verified 05/18/18 12:25 syndrome Heparin Analogues AdvReac Unknown Verified 05/18/18 12:25 [Heparin Agents] flu shot Allergy Severe GETS FLU Uncoded 05/18/18 12:25 SYMPTOMS grape juice AdvReac Severe Uncoded 05/18/18 12:25 - Home Medications Home Medications: Ambulatory Orders RX: Albuterol 0.083% Nebulizer Bonita [Ventolin 0.083% Nebulizer Soln -] 1 amp NEB DAILY 05/02/18 RX: Amlodipine Besylate [Norvasc -] 10 mg PO DAILY 05/02/18 RX: Aspirin [Aspirin EC] 325 mg PO DAILY 05/02/18 RX: Atorvastatin Ca [Lipitor] 80 mg PO HS 05/02/18 RX: Bupropion HCl [Wellbutrin Xl] 300 mg PO HS 05/02/18 RX: Carvedilol [Coreg -] 25 mg PO BID 05/02/18 RX: Clopidogrel Bisulfate [Plavix] 75 mg PO DAILY 05/02/18 RX: Folic Acid/Vit B Complex and C [Folbee Plus Tablet] 5 mg PO DAILY 05/02/18 RX: Furosemide [Lasix] 40 mg PO BID 05/02/18 RX: Linaclotide [Linzess] 145 mcg PO DAILY 05/02/18 RX: Sennosides [Senna] 17.2 mg GT HS 05/02/18 RX: Sevelamer Carbonate [Renvela -] 800 mg PO TID 05/02/18 RX: Topiramate [Topiramate ER] 50 mg PO BID 05/02/18 RX: clonazePAM [Klonopin -] 0.5 mg PO BID 05/02/18 RX: levETIRAcetam [Keppra -] 500 mg PO BID 05/02/18 Family Disease History - Family Disease History Family History: Denies Review of Systems - Review of Systems Constitutional: reports: Malaise. denies: Chills, Fever Eyes: reports: No Symptoms HENT: reports: No Symptoms Neck: reports: No Symptoms Cardiovascular: reports: Edema Respiratory: reports: Cough Gastrointestinal: reports: No Symptoms Genitourinary: reports: No Symptoms Musculoskeletal: reports: No Symptoms Integumentary: reports: No Symptoms Neurological: reports: Change in LOC, Confusion Endocrine: reports: No Symptoms Hematology/Lymphatic: reports: No Symptoms Psychiatric: reports: No Symptoms Physical Exam Vital Signs: Vital Signs Temperature 101.0 F H 05/18/18 13:32 Pulse Rate 85 05/18/18 12:19 Respiratory Rate 16 05/18/18 12:19 Blood Pressure 142/82 05/18/18 12:19 O2 Sat by Pulse Oximetry (%) 100 05/18/18 12:19 Constitutional: Yes: Calm Cardiovascular: Yes: S1, S2 Respiratory: Yes: CTA Bilaterally Gastrointestinal: Yes: Soft, Abdomen, Obese Renal/: Yes: WNL Musculoskeletal: Yes: WNL Edema: Yes Neurological: Yes: Confusion Problem List - Problems (1) Altered mental status Code(s): R41.82 - ALTERED MENTAL STATUS, UNSPECIFIED (2) Anemia Code(s): D64.9 - ANEMIA, UNSPECIFIED Qualifiers: Chronic kidney disease stage: on chronic dialysis (3) ESRD (end stage renal disease) Code(s): N18.6 - END STAGE RENAL DISEASE Assessment/Plan Impression 1. ESRD 2. s/p fall 3. DM 4. HLD 5. HTN 6. anemia 7. anxiety 8. seizure Plan - check ct head - send cultures - check cbc and bmp - pt due for HD today - 4 hrs, 2 k bath, epogen 1000, hectorol 3.5, 15 gauge 1 1/4 length - renal diabetic diet
[2018-05-18] MEDS ORDERED: SODIUM CHLORIDE 250 ML IV PRN (14:57)
--- NOTE | 2018-05-18 15:02 | EKG ---
Test Reason : Blood Pressure : / mmHG Vent. Rate : 087 BPM Atrial Rate : 087 BPM P-R Int : 164 ms QRS Dur : 070 ms QT Int : 362 ms P-R-T Axes : 050 -09 017 degrees QTc Int : 435 ms POOR DATA QUALITY, INTERPRETATION MAY BE ADVERSELY AFFECTED NORMAL SINUS RHYTHM CANNOT RULE OUT ANTERIOR INFARCT , AGE UNDETERMINED ABNORMAL ECG Confirmed by RONALDO RITTER MD ([id number]) on 05/18/2018 3:01:49 PM Referred By: Confirmed By:RONALDO RITTER MD
[2018-05-18] MEDS ORDERED: ACETAMINOPHEN 325 MG TABLET (FP) PO ONE (15:12)
[2018-05-18 16:32] LABS: BASO % 0.5 % (0-2.0); EOS % 0.4 % (0-4.5); HEMATOCRIT 29.9 % (32.4-45.2); LYMPH % 5.2 % (8-40); MCH 36.9 pg (25.7-33.7); MCHC 33.5 g/dl (32.0-36.0); MEAN PLT VOLUME 8.8 fl (7.5-11.1); MONO % 4.9 % (3.8-10.2); PLATELET COUNT 207 K/MM3 (134-434); RBC 2.72 M/mm3 (3.60-5.2); RDW 16.5 % (11.6-15.6); WHITE BLOOD COUNT 12.8 K/mm3 (4.0-10.0)
[2018-05-18 16:39] LABS: VENOUS PC02 41.7 mmHg (38-52); VENOUS PH 7.39 (7.32-7.42)
[2018-05-18 17:02] LABS: INR 1.11 (0.83-1.09); PROTHROMBIN TIME (PATIENT) 13.1 SEC (9.7-13.0)
[2018-05-18 17:04] LABS: ACTIVATED PTT 28.5 SECONDS (25.2-36.5); ALBUMIN 3.1 g/dl (3.4-5.0); ALK PHOS 63 U/L (45-117); ANION GAP 7 MMOL/L (8-16); BILIRUBIN,TOTAL 0.3 mg/dL (0.2-1); BLOOD UREA NITROGEN 40 mg/dL (7-18); CALCIUM 9.5 mg/dL (8.5-10.1); CHLORIDE 104 mmol/L (98-107); CO2 27 mmol/L (21-32); GLUCOSE,RANDOM 83 mg/dL (74-106); POTASSIUM 4.2 mmol/L (3.5-5.1); SGOT/AST 18 U/L (15-37); SGPT/ALT 16 U/L (13-61); SODIUM 138 mmol/L (136-145); TOT PROT 6.4 g/dl (6.4-8.2)
[2018-05-18 17:33] LABS: ANISOCYTOSIS 1+
[2018-05-18] MEDS ORDERED: OSELTAMIVIR PHOSPHATE 75 MG CAPSULE PO ONE (17:35)
--- NOTE | 2018-05-18 20:36 | PN ---
Teaching Attending Note Name of Resident: Kahlil Stout ATTENDING PHYSICIAN STATEMENT I saw and evaluated the patient. I reviewed the resident's note and discussed the case with the resident. I agree with the resident's findings and plan as documented. SUBJECTIVE: Seen and examined; please refer to resident note for further historical details. Briefly, this is a 52 y/o female well-known to the medicine service with a complex PMH as documented; she presents from her HD center with likely syncope; there is conflicting stories regarding LOC but pt presently endorses; she was less responsive after the episode; no seizure activity witnessed, no loss of bladder or bowel function. Did not hit her head. No echo within the past year. She is found to be flu positive and has had a cough for several days that is somewhat productive. She did not complete her HD session due to the aforementioned episode and was brought to the ER. She was seen by nephrology; is currently getting dialysis and tolerating. Her presenting sx resolved. She is a somewhat poor historian. She was actively hallucinating when I saw her in her room, talking about tigers running around. She actually told me when I saw her a second time that the people at HD were "liars" and that she never lost consciousness, she just slid down in the chair, and she agrees this is what her presentation was like on her other admission. In terms of her seizure history, she was admitted on prior admission with questionable seizure disorder with confusion. 1 month after she was seen initially here by Dr. Hwang then transferred to [facility] for OMFS eval; shortly thereafter she was readmitted by Dr. Harris for hallucinations. During that admission she was seen by Dr. Faye (all neuro meds at that time were Plavix, Welbutrin, keppra 500 bid, and topiramate 50 BID, and Sinemet 25/100. He recommended MRI, duplex, continuing the aforementioned medications aside from L-Dopa and to followup OP for Nuplazid as OP; negative workup and was DCd ( and readmitted the next day due to inability to arrange transport to HD) according to his instructions. 10 sys ROS done and negative aside from HPI PMH, PSH, Family hx, Social hx reviewed Medication list pending reconciliation RX: Albuterol 0.083% Nebulizer Bonita [Ventolin 0.083% Nebulizer Soln -] 1 amp NEB DAILY 02/06/19 RX: Amlodipine Besylate [Norvasc -] 10 mg PO DAILY 05/02/18 RX: Aspirin [Aspirin EC] 325 mg PO DAILY 05/02/18 RX: Atorvastatin Ca [Lipitor] 80 mg PO HS 05/02/18 RX: Bupropion HCl [Wellbutrin Xl] 300 mg PO HS 05/02/18 RX: Carvedilol [Coreg -] 25 mg PO BID 05/02/18 RX: Clopidogrel Bisulfate [Plavix] 75 mg PO DAILY 05/02/18 RX: Folic Acid/Vit B Complex and C [Folbee Plus Tablet] 5 mg PO DAILY 05/02/18 RX: Furosemide [Lasix] 40 mg PO BID 05/02/18 RX: Linaclotide [Linzess] 145 mcg PO DAILY 05/02/18 RX: Sennosides [Senna] 17.2 mg GT HS 05/02/18 RX: Sevelamer Carbonate [Renvela -] 800 mg PO TID 05/02/18 RX: Topiramate [Topiramate ER] 50 mg PO BID 05/02/18 RX: clonazePAM [Klonopin -] 0.5 mg PO BID 05/02/18 RX: levETIRAcetam [Keppra -] 500 mg PO BID 05/02/18 OBJECTIVE: VS, labs, imaging reviewed NAD, AAO, resting comfortably in bed getting HD NC AT EOMI PERRLA HR normal, s1/2 no mgr Lungs mostly clear but limited 2/2 habitus, w/ sym exp CN2-12 wnl, neuro exam consistent with previously described baseline; cogwheeling evident Normal mood, appropriate behavior CXR reviewed EKG reviewed Telemetry pending review Recent MRI reviewed; no interval change Old echocardiogram reviewed; new pending ASSESSMENT AND PLAN: Patient presents with what appears to be syncope at her dialysis center and several days of cough, found to be +flu in the ER. She was started on tamifly and dialyzed by nephrology. She will be monitored on telemetry with neuro checks and seizure precautions. 1) Likely syncope -The lack of responsiveness resolved by the time she came to the hospital, no generalized seizure activity or loss of bowel or bladder control make seizure less likely, especially with the explanation that this relatively frail patient (with regards to their past history) is acutely infected with flu which could easily precipiate such an occurance. She will be monitored on telemetry with neuro checks and seizure precautions; old echo reviewed and new one ordered. Checking carotid dopplers. Fall precautions will be undertaken. If continued seizure concern is present it wouldn't be unreasonable to involve neuro. She was on dialysis machine when I saw her so orthostatics weren't done but will check when her session is complete, though fluid shifts could skew results. Need to FU UA to r/o UTI as she still does make urine. -Verify home meds with her pharmacy in AM 2) Influenza -Continue tamiflu for complete course, monitor symptoms. No radiographic evidence of superimposed bacterial pneumonia. She is saturating well. Continue to monitor; her PMH puts her at risk for complications from influenza infection though she is clinically stable now.\\ 3) ESRD on HD -Monitor QD BMP and Is and Os; ultimate management per nephrology -Getting HD now; appreciate input from nephro. Continue sevelamer 4) HTN -Continue home meds; check orthostatics 5) Seizure hx -As per #1 -Continue home meds; no history of missed doses. Seizure precautions. 6) Parkinson's Disease -L-Dopa is off her home med list; given the fact that she is actively hallucinating we need to verify this given hsitory of Parkinson's Psychosis. Will discuss with Dr. Faye regarding any changes made at the scheduled appointment (was supposed to get pimavanserin rx) 7) Severe FINANCIAL OPERATIONS ANALYST microvascular disease -Continue plavix, statin 8) Parkinsonian Psychosis -Hallucinations still evident; consulting her neurologist. Will defer further workup and treatment to their service; please see #7 for further discussion. Code Status Unchanged
--- NOTE | 2018-05-18 20:38 | HOSP ---
Physical Examination Vital Signs: Vital Signs Temperature 101.1 F H 05/18/18 19:25 Pulse Rate 87 05/18/18 20:30 Respiratory Rate 18 05/18/18 20:30 Blood Pressure 152/92 05/18/18 20:30 O2 Sat by Pulse Oximetry (%) 90 L 05/18/18 18:48 Labs: CBC, BMP 05/18/18 16:26 05/18/18 16:26
--- NOTE | 2018-05-19 01:28 | HP ---
Addendum entered and electronically signed by Kahlil Stout, RESIDENT 03:05: pt endorses hallucinations - seeing tigers will consult neuro Original Note: <Kahlil Stout - Last Filed: 05/19/18 02:25> CHIEF COMPLAINT: PCP: HISTORY OF PRESENT ILLNESS: 52 yo F w/ PMH Asthma, Anemia, seizures, HTN, TIA/Strokes, ESRD (M/W/F) and IDDM, presents from dialysis BIBEMS after sliding down a chair onto her bottom after having a likely syncopal episode. pt denies LOC or hitting he head. However pt may not be reliable hx and based on ED and renal notes may have had LOC. no seizure activity witnessed, no loss of bladder or bowel function. She admits to some headaches, but denies nausea, vomiting, diarrhea, constipation, abdominal pain, chest pain or shortness of breath. Denies pain or swelling in any other extremities. The patient still makes urine. Of note. She has had 4 days of cough productive of yellow and white phlegm. Dr. Sharma who is the patient's rose grading supervisor was at bedside. pt became more at baseline when in the ED The patient denies chest pain, shortness of breath, or any other symptoms. Allergies: amoxicillin, hydrocodone bitartrate, morphine, neomycin, oxycodone HCl, rofecoxib, Sulfa, tramadol, tomato, grapefruit, flu shot, and grape juice. 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 Family History: Allergies amoxicillin [Amoxicillin] Allergy (Severe, Verified 05/18/18 12:25) Itching hydrocodone bitartrate [From Vicodin] Allergy (Severe, Verified 05/18/18 12:25) Hives,ITCHING morphine Allergy (Severe, Verified 05/18/18 12:25) Itching neomycin [Neomycin] Allergy (Severe, Verified 05/18/18 12:25) Swelling oxycodone HCl [From Percocet] Allergy (Severe, Verified 05/18/18 12:25) Itching,HIVES rofecoxib [From Vioxx] Allergy (Severe, Verified 05/18/18 12:25) Hives Sulfa (Sulfonamide Antibiotics) Allergy (Severe, Verified 05/18/18 12:25) sclera reddened,ITCHING tramadol Allergy (Severe, Verified 05/18/18 12:25) Vomiting tomato Allergy (Verified 05/18/18 12:25) grapefruit [Grapefruit] Adverse Reaction (Severe, Verified 05/18/18 12:25) CAN'T TAKE BECAUSE OF MEDICATIONS vancomycin Adverse Reaction (Mild, Verified 05/18/18 12:25) red man syndrome Heparin Analogues [Heparin Agents] Adverse Reaction (Unknown, Verified 05/18/18 12:25) OF 09/14/14, PT IS ABLE TO TAKE WITH MONITORING OF SYMPTOMS flu shot Allergy (Severe, Uncoded 05/18/18 12:25) GETS FLU SYMPTOMS grape juice Adverse Reaction (Severe, Uncoded 05/18/18 12:25) HOME MEDICATIONS: Home Medications Medication Instructions Recorded Albuterol 0.083% Nebulizer Bonita 1 amp NEB DAILY 05/02/18 [Ventolin 0.083% Nebulizer Soln -] Amlodipine Besylate [Norvasc -] 10 mg PO DAILY 05/02/18 Aspirin [Aspirin EC] 325 mg PO DAILY 05/02/18 Atorvastatin Ca [Lipitor] 80 mg PO HS 05/02/18 Bupropion HCl [Wellbutrin Xl] 300 mg PO HS 05/02/18 Carvedilol [Coreg -] 25 mg PO BID 05/02/18 Clopidogrel Bisulfate [Plavix] 75 mg PO DAILY 05/02/18 Folic Acid/Vit B Complex and C 5 mg PO DAILY 05/02/18 [Folbee Plus Tablet] Furosemide [Lasix] 40 mg PO BID 05/02/18 Linaclotide [Linzess] 145 mcg PO DAILY 05/02/18 Sennosides [Senna] 17.2 mg GT HS 05/02/18 Sevelamer Carbonate [Renvela -] 800 mg PO TID 05/02/18 Topiramate [Topiramate ER] 50 mg PO BID 05/02/18 clonazePAM [Klonopin -] 0.5 mg PO BID 05/02/18 levETIRAcetam [Keppra -] 500 mg PO BID 05/02/18 REVIEW OF SYSTEMS pe hpi PHYSICAL EXAMINATION Vital Signs - 24 hr 05/18/18 05/18/18 05/18/18 12:19 13:32 14:00 Temperature 101.3 F H 101.0 F H Pulse Rate 85 Pulse Rate [ Apical] Respiratory 16 Rate Blood Pressure 142/82 Blood Pressure [Right Arm] O2 Sat by Pulse 100 99 Oximetry (%) 05/18/18 05/18/18 05/18/18 18:31 18:48 19:25 Temperature 97.3 F L 101.5 F H 101.1 F H Pulse Rate 95 H 89 Pulse Rate [ 86 Apical] Respiratory 16 24 H 18 Rate Blood Pressure 168/77 144/86 Blood Pressure 138/70 [Right Arm] O2 Sat by Pulse 94 L 90 L Oximetry (%) 05/18/18 05/18/18 05/18/18 19:30 20:00 20:30 Temperature Pulse Rate 89 93 H 87 Pulse Rate [ Apical] Respiratory 18 18 18 Rate Blood Pressure 164/99 138/73 152/92 Blood Pressure [Right Arm] O2 Sat by Pulse Oximetry (%) 05/18/18 05/18/18 05/18/18 21:00 21:30 22:00 Temperature Pulse Rate 86 88 67 Pulse Rate [ Apical] Respiratory 18 18 18 Rate Blood Pressure 119/64 154/77 125/86 Blood Pressure [Right Arm] O2 Sat by Pulse Oximetry (%) 05/18/18 05/18/18 22:30 22:35 Temperature Pulse Rate 67 63 Pulse Rate [ Apical] Respiratory 18 18 Rate Blood Pressure 132/86 145/81 Blood Pressure [Right Arm] O2 Sat by Pulse Oximetry (%) GENERAL:AOx2 person place , morbid obesity , bed bounded , left toe 4th nd 5th amputation HEAD: NC/AT EYES:PARAG on right eye , left eye legal blind , extraocular movements intact on left eye , exopthalmus B/L EARS, NOSE, THROAT: nares patent, oropharynx clear without exudates. dry mucous membranes. NECK: Normal range of motion, supple, obese LUNGS: coarse breath sounds. HEART:RRR, normal S1 and S2 without murmur, rub or gallop. ABDOMEN: obese, Soft, nontender, not distended, normoactive bowel sounds, no guarding, no rebound, UPPER EXTREMITIES: 2+ pulses, warm, well-perfused. No cyanosis. No clubbing. No peripheral edema. Right arm Av fistula , right hand canvass manager 3/5 , right hand weakness 2/5 arm flexion and extension , left hand canvass manager 5/5 left arm 5/5 flexion and extension , LOWER EXTREMITIES: 2+ pulses, warm, well-perfused. No calf tenderness. No peripheral edema. L 4th and 5th toe amputation and R 2nd toe amputation. dry scaly skin on feet NEUROLOGICAL: Cranial nerves II-XII intact except left eye movement . Normal speech. bed bounded PSYCHIATRIC: Cooperative. SKIN: Warm, dry, normal turgor, Laboratory Results - last 24 hr 05/18/18 05/18/18 05/18/18 16:26 16:26 16:26 WBC 12.8 H RBC 2.72 L Hgb 10.0 L Hct 29.9 L MCV 110.0 H MCH 36.9 H MCHC 33.5 RDW 16.5 H Plt Count 207 D MPV 8.8 Absolute Neuts (auto) 11.4 H Neutrophils % 89.0 H D Lymphocytes % 5.2 L D Monocytes % 4.9 Eosinophils % 0.4 D Basophils % 0.5 Nucleated RBC % 0 Anisocytosis 1+ PT with INR 13.10 H INR 1.11 H PTT (Actin FS) 28.5 VBG pH 7.39 POC VBG pCO2 41.7 POC VBG pO2 37.0 Mixed VBG HCO3 24.9 Sodium Potassium Chloride Carbon Dioxide Anion Gap BUN Creatinine Creat Clearance w eGFR Random Glucose Lactic Acid Calcium Total Bilirubin AST ALT Alkaline Phosphatase Total Protein Albumin Influenza A (Rapid) Influenza B (Rapid) 05/18/18 05/18/18 05/18/18 16:26 16:26 16:30 WBC RBC Hgb Hct MCV MCH MCHC RDW Plt Count MPV Absolute Neuts (auto) Neutrophils % Lymphocytes % Monocytes % Eosinophils % Basophils % Nucleated RBC % Anisocytosis PT with INR INR PTT (Actin FS) VBG pH POC VBG pCO2 POC VBG pO2 Mixed VBG HCO3 Sodium 138 Potassium 4.2 Chloride 104 Carbon Dioxide 27 Anion Gap 7 L BUN 40 H Creatinine 9.0 H* Creat Clearance w eGFR 4.63 Random Glucose 83 Lactic Acid 0.7 Calcium 9.5 Total Bilirubin 0.3 AST 18 ALT 16 Alkaline Phosphatase 63 Total Protein 6.4 Albumin 3.1 L Influenza A (Rapid) Positive A Influenza B (Rapid) Negative ASSESSMENT/PLAN: 52 yo F w/ PMH Asthma, Anemia, seizures, HTN, TIA/Strokes, ESRD (M/W/F) and IDDM, presents from dialysis BIBEMS after sliding down a chair onto her bottom after having a likely syncopal episode. +4days productive cough. Found in ED to be Flu pos w/ fever, leukocytes Influenza - CXR no evidence of superimposed bacterial PNA. She is saturating well on RA tamiflu 30 qd (renally dosed) po hydration pain and fever ctl w/ tylenol supportive care Sycope? - unclear if pt had LOC. likely 2/2 flu infx. no evidence of seizure. head ct neg. EKG NSR. neuro exam at baseline tele po hydration echo cardio consult check orthostatics after HD, although fluid shifts could skew results. neuro checks seizure precautions fall precautions consider neuro consult if concern for seizure becomes apparent #ESRD M,W, F Nephrology (Dr. Sharma) consulted for HD today monitor intake and out put renal diet monitor lytes # HTN /CAD resume home meds lasix 40 po BID , Coreg 25 mg po BID , norvasc 10 mg po daily Monitor BP closely #IDDM ISS BGMs ACHS last A1c 6.1 on February 2018 # Seizure resume Keppra 500 po BID # History of stroke /TIA with right side residual weakness / hemiplesia / hemiparesis ASA 325, Plavix 75 mg po daily Lipitor 80 mg po daily HS # Anxiety /depression continue clonazepam 0.5 PRN cont Welbutrin # HLD resume lipitor 80 mg po HS #Gait instability/Ambulatory dysfunction # Right toe 4th-5th amputation Multifactorial - sec to mostly prior CVA with R hemiparesis fall precautions # H/O parkinson Disease not on L dopa any more, per neuro recs from prior admission/Dr. Faye cont keppra # Asthma unspecified, stable duoneb prn #FEN PO Fluids Lytes monitor renal diet, dm, low salt low fat #PPX DVT: SCDs. ASA , plavix # Full code Dispo: tele Visit type - Emergency Visit Emergency Visit: Yes ED Registration Date: 05/18/18 Care time: The patient presented to the Emergency Department on the above date and was hospitalized for further evaluation of their emergent condition. - New Patient This patient is new to me today: Yes Date on this admission: 05/19/18 - Critical Care Critical Care patient: No <Jose Rivas - Last Filed: 05/20/18 03:13> I have seen and examined the patient and agree with the above aside from what is supplemented or changed in my own documentation
[2018-05-19] MEDS: FUROSEMIDE 40 MG TABLET (FP) PO SCH ×2 (06:26→14:46)
[2018-05-19] MEDS: ACETAMINOPHEN 325 MG TABLET (FP) PO PRN ×3 (06:27→21:40)
[2018-05-19] MEDS: INSULIN SLIDING SCALE (NOVOLOG) 1 VIAL SQ SCH ×4 (07:01→21:42)
[2018-05-19 08:03] LABS: BASO % 0.6 % (0-2.0); EOS % 0.2 % (0-4.5); HEMOGLOBIN 9.1 GM/dL (10.7-15.3); LYMPH % 9.4 % (8-40); MCH 36.9 pg (25.7-33.7); MCHC 33.8 g/dl (32.0-36.0); MEAN PLT VOLUME 8.6 fl (7.5-11.1); MONO % 6.6 % (3.8-10.2); NEUT % 83.2 % (42.8-82.8); PLATELET COUNT 168 K/MM3 (134-434); RBC 2.47 M/mm3 (3.60-5.2); RDW 16.6 % (11.6-15.6); WHITE BLOOD COUNT 9.8 K/mm3 (4.0-10.0)
[2018-05-19] MEDS ORDERED: PT OWN MED DRAWER 7, Y5N ONE ×6 (08:27→21:44)
[2018-05-19 08:40] LABS: ALBUMIN 2.6 g/dl (3.4-5.0); ALK PHOS 55 U/L (45-117); ANION GAP 7 MMOL/L (8-16); BILIRUBIN,TOTAL 0.3 mg/dL (0.2-1); BLOOD UREA NITROGEN 27 mg/dL (7-18); CALCIUM 8.7 mg/dL (8.5-10.1); CHLORIDE 105 mmol/L (98-107); CO2 31 mmol/L (21-32); CREATININE 6.8 mg/dL (0.55-1.3); GLUCOSE,RANDOM 94 mg/dL (74-106); MAGNESIUM 2.1 mg/dL (1.8-2.4); PHOSPHOROUS 2.8 mg/dL (2.5-4.9); POTASSIUM 3.4 mmol/L (3.5-5.1); SGOT/AST 25 U/L (15-37); SGPT/ALT 15 U/L (13-61); SODIUM 143 mmol/L (136-145); TOT PROT 5.7 g/dl (6.4-8.2)
[2018-05-19] MEDS: SEVELAMER CARBONATE 800 MG TAB (FP) PO SCH ×3 (08:45→17:20)
[2018-05-19] MEDS: levETIRAcetam 500 MG TABLET (FP) PO SCH ×3 (08:46→21:41)
[2018-05-19] MEDS: CARVEDILOL 25 MG TABLET (FP) PO SCH ×3 (08:46→21:41)
[2018-05-19] MEDS: SENNOSIDES 8.6MG TABLET (FP) PO SCH ×2 (08:46→21:40)
[2018-05-19] MEDS: ATORVASTATIN CA 80 MG TABLET (FP) PO SCH ×2 (08:46→21:41)
[2018-05-19] MEDS: ASPIRIN 325 MG ENTERIC COATED TABLET (FP) PO SCH (09:05)
[2018-05-19] MEDS: amLODIPine BESYLATE 10 MG TABLET (FP) PO SCH (09:05)
[2018-05-19] MEDS: CLOPIDOGREL BISULFATE 75 MG TABLET (FP) PO SCH (09:05)
[2018-05-19] MEDS ORDERED: VIT B COMPLEX AND C PO SCH (10:00)
[2018-05-19] MEDS ORDERED: PATIENT'S OWN MEDICATION (NON-FORMULARY) (Linaclotide [Linzess] 145 MCG) PO SCH (10:00)
[2018-05-19] MEDS ORDERED: [UNRECOGNIZED DRUG - OTHER] PO SCH (10:00)
[2018-05-19] MEDS ORDERED: FOLIC ACID PO SCH (10:00)
[2018-05-19] MEDS ORDERED: ALBUTEROL SO4 0.083% IH SOL 2.5 MG/3 ML VIAL.NEB. NEB SCH (10:00)
--- NOTE | 2018-05-19 12:23 | PN ---
Teaching Attending Note Name of Resident: Norman Ch ATTENDING PHYSICIAN STATEMENT I saw and evaluated the patient. I reviewed the resident's note and discussed the case with the resident. I agree with the resident's findings and plan as documented. SUBJECTIVE: No fever or chills. No abd pain, no SOB, no cough. has no DEJESUS . tells me she did not faint in HD. she reports having active visual and auditory hallucinations. tigers and voice " Kill, kill, kill" OBJECTIVE: NAD , awake, alert , cooperative. Flat affect, tearful HEENT: symmetric face, round deformed pupils, sluggish reaction to light , EOMI with slight lag with L gaze. MMM. tongue at mid line. CV: RRR. No MRG Lungs: CTAB Abd: obese, soft, NT, ND, NL BS Ext : No edema . 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 and R 2nd toe amputation. dry scaly skin on feet Neuro : symmetric face, round deformed pupils, sluggish reaction to light , EOMI with slight lag with L gaze. some rigidity and cogwheeling in L elbow Strength : LUE: shoulder flexion 5/5 , biceps and triceps 5/5weakn hand simonizer , 4rth and 5th fingers are partially flexed LLE: hip flexion 4/5, knee flexion and extension 4/5 , ankle dorsilexion 4, plantar flexion 3. RUE: shoulder flexion 1/5, biceps/triceps 3/5, contracted R hand fingers. RLE hip flexion 2/5, knee flexion and extension 2/5, ankle dorsiflexion and plantar flexion 0. A/P : Unfortunate 52 y/o lady with h/o DM , HTN, ESRD on HD MWF, seizure disorder, CVA , possible parkinsonian psychosis and recent admission to [facility] for missed HD , who presented due to possible syncopal event during HD. she was diagnosed with flu . 1- Possible syncope: ? orthostatic hypotension vs Arrhythmias Vs psych vs. 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 Now seeing tigers and hearing commands to kill . - neuro consult - psych consult 3- H/o Seizure : - cont keppra - cont topiramate 4- ESRD: her schedula is MWF. received it yesterday - renal - monitor electrolytes 5- HTN: cont norvasc and coreg 6- H/o Stroke: cont ASa and plavix 7- H/o DM , A1c 4.1. was taken off insulin last admission. no need for any treatment
--- NOTE | 2018-05-19 12:59 | PN ---
Physical Exam: SUBJECTIVE: Patient seen and examined at bedside. Reports cough is improved with only white sputum now. She also reports seeing hallucinations of tigers here and while she in the NH. She also reports hearing voices telling her to kill people. Still having fevers and chills. AAOX3 now. OBJECTIVE: Vital Signs Temperature 98.8 F 05/19/18 04:41 Pulse Rate 90 05/19/18 04:41 Respiratory Rate 20 05/19/18 04:41 Blood Pressure 140/80 05/19/18 04:41 O2 Sat by Pulse Oximetry (%) 98 05/19/18 06:00 GENERAL: The patient is awake, alert, and fully oriented EYES: onjunctiva clear. ENT: Ears normal, nares patent LUNGS: R sided coarse breath sounds that are worse compared to the L side. HEART: Regular rate and rhythm, S1, S2. ABDOMEN: Soft, nontender, nondistended, normoactive bowel sounds EXTREMITIES: warm, well-perfused, no edema. NEUROLOGICAL: Slow speech, gait not observed. SKIN: Warm, dry Laboratory Results - last 24 hr 05/18/18 05/18/18 05/18/18 16:26 16:26 16:26 WBC 12.8 H RBC 2.72 L Hgb 10.0 L Hct 29.9 L MCV 110.0 H MCH 36.9 H MCHC 33.5 RDW 16.5 H Plt Count 207 D MPV 8.8 Absolute Neuts (auto) 11.4 H Neutrophils % 89.0 H D Lymphocytes % 5.2 L D Monocytes % 4.9 Eosinophils % 0.4 D Basophils % 0.5 Nucleated RBC % 0 Anisocytosis 1+ PT with INR 13.10 H INR 1.11 H PTT (Actin FS) 28.5 VBG pH 7.39 POC VBG pCO2 41.7 POC VBG pO2 37.0 Mixed VBG HCO3 24.9 Sodium Potassium Chloride Carbon Dioxide Anion Gap BUN Creatinine Creat Clearance w eGFR POC Glucometer Random Glucose Hemoglobin A1c % Lactic Acid Calcium Phosphorus Magnesium Total Bilirubin AST ALT Alkaline Phosphatase Total Protein Albumin Influenza A (Rapid) Influenza B (Rapid) 05/18/18 05/18/18 05/18/18 16:26 16:26 16:30 WBC RBC Hgb Hct MCV MCH MCHC RDW Plt Count MPV Absolute Neuts (auto) Neutrophils % Lymphocytes % Monocytes % Eosinophils % Basophils % Nucleated RBC % Anisocytosis PT with INR INR PTT (Actin FS) VBG pH POC VBG pCO2 POC VBG pO2 Mixed VBG HCO3 Sodium 138 Potassium 4.2 Chloride 104 Carbon Dioxide 27 Anion Gap 7 L BUN 40 H Creatinine 9.0 H* Creat Clearance w eGFR 4.63 POC Glucometer Random Glucose 83 Hemoglobin A1c % Lactic Acid 0.7 Calcium 9.5 Phosphorus Magnesium Total Bilirubin 0.3 AST 18 ALT 16 Alkaline Phosphatase 63 Total Protein 6.4 Albumin 3.1 L Influenza A (Rapid) Positive A Influenza B (Rapid) Negative 05/19/18 05/19/18 05/19/18 06:25 06:30 06:30 WBC 9.8 RBC 2.47 L Hgb 9.1 L Hct 27.0 L MCV 109.0 H MCH 36.9 H MCHC 33.8 RDW 16.6 H Plt Count 168 MPV 8.6 Absolute Neuts (auto) 8.2 H Neutrophils % 83.2 H Lymphocytes % 9.4 D Monocytes % 6.6 Eosinophils % 0.2 Basophils % 0.6 Nucleated RBC % 0 Anisocytosis PT with INR INR PTT (Actin FS) VBG pH POC VBG pCO2 POC VBG pO2 Mixed VBG HCO3 Sodium 143 Potassium 3.4 L Chloride 105 Carbon Dioxide 31 Anion Gap 7 L BUN 27 H Creatinine 6.8 H Creat Clearance w eGFR 6.40 POC Glucometer 79 Random Glucose 94 Hemoglobin A1c % Lactic Acid Calcium 8.7 Phosphorus 2.8 Magnesium 2.1 Total Bilirubin 0.3 AST 25 ALT 15 Alkaline Phosphatase 55 Total Protein 5.7 L Albumin 2.6 L Influenza A (Rapid) Influenza B (Rapid) 05/19/18 05/19/18 06:30 11:04 WBC RBC Hgb Hct MCV MCH MCHC RDW Plt Count MPV Absolute Neuts (auto) Neutrophils % Lymphocytes % Monocytes % Eosinophils % Basophils % Nucleated RBC % Anisocytosis PT with INR INR PTT (Actin FS) VBG pH POC VBG pCO2 POC VBG pO2 Mixed VBG HCO3 Sodium Potassium Chloride Carbon Dioxide Anion Gap BUN Creatinine Creat Clearance w eGFR POC Glucometer 84 Random Glucose Hemoglobin A1c % < 4.2 L Lactic Acid Calcium Phosphorus Magnesium Total Bilirubin AST ALT Alkaline Phosphatase Total Protein Albumin Influenza A (Rapid) Influenza B (Rapid) Active Medications Generic Name Dose Route Start Last Admin Trade Name Freq PRN Reason Stop Dose Admin Acetaminophen 650 mg 05/18/18 20:53 05/19/18 06:27 Tylenol - PO 650 mg Q4H PRN Administration PAIN OR FEVER Albuterol/Ipratropium 1 amp 05/18/18 20:55 Duoneb - NEB Q6H PRN SHORTNESS OF BREATH Amlodipine Besylate 10 mg 05/19/18 10:00 05/19/18 09:05 Norvasc - PO 10 mg DAILY MANDO Administration Aspirin 325 mg 05/19/18 10:00 05/19/18 09:05 Ecotrin - PO 325 mg DAILY MANDO Administration Atorvastatin Calcium 80 mg 05/18/18 22:00 05/19/18 08:46 Lipitor - PO Not Given HS MANDO Bupropion HCl 300 mg 05/18/18 22:00 Wellbutrin Xl - PO HS MANDO Carvedilol 25 mg 05/18/18 22:00 05/19/18 09:04 Coreg - PO 25 mg BID MANDO Administration Clopidogrel Bisulfate 75 mg 05/19/18 10:00 05/19/18 09:05 Plavix - PO 75 mg DAILY MANDO Administration Furosemide 40 mg 05/19/18 06:00 05/19/18 06:26 Lasix - PO 40 mg BIDLASIX MANDO Administration Sodium Chloride 250 mls @ 3,000 mls/hr 05/18/18 14:57 Normal Saline - IV 05/19/18 14:57 PRN PRN Hypotension during Dialysis Insulin Aspart 1 vial 05/19/18 07:00 05/19/18 11:06 Novolog Vial Sliding Scale - SQ Not Given ACHS [facility] Protocol Levetiracetam 500 mg 05/18/18 22:00 05/19/18 09:05 Keppra - PO 500 mg BID MANDO Administration Oseltamivir Phosphate 30 mg 05/19/18 10:00 Tamiflu - PO 05/24/18 09:59 DAILY MANDO Senna 2 tab 05/18/18 22:00 05/19/18 08:46 Senna - PO Not Given HS MANDO Sevelamer Carbonate 800 mg 05/19/18 08:00 05/19/18 12:10 Renvela - PO 800 mg TIDCM MANDO Administration Topiramate 50 mg 05/19/18 22:00 Topamax - PO BID [facility] ASSESSMENT/PLAN: 52 y/o F w/PMH of asthma, anemia, seizures, HTN, TIA/strokes with R sided hemiparesis, ESRD on HD (MWF), IDDM presented to ER from dialysis for syncope before starting dialysis session. Found to be flu positive here. -Fevers secondary to Influenza A -Tamiflu 30 mg qd (renally dosed) -Tylenol for fevers. Had fever of 101.5 at 6:48 pm yesterday (tmax in 24 hours) -Droplet precautions -UA and UCx ordered. Straight cath for urine if pt not able to give sample. -Syncope -May be secondary to infectious etiology and fevers. Head CT neg. EKG unrevealing. -continue tele monitoring -Hallucinations -Previously stopped carb/levidopa due to hallucinations and now on keppra -Neuro consulted. Recs appreciated -Will consider psych consult if not a neuro medication side effect or if more likely underlying psych issue -ESRD on HD -dialyzed yesterday -dialysis as per nephrology -Nephrology on board -HTN -c/w lasix, coreg, norvasc -Hx of seizures -keppra 500 mg bid -Hx of TIA and stroke -c/w asa, plavix, lipitor -Anxiety/depression -c/w wellbutrin and clonazepam prn -DVT ppx -SCDs -Dispo: continue tele monitoring Visit type - Emergency Visit Emergency Visit: Yes ED Registration Date: 05/18/18 Care time: The patient presented to the Emergency Department on the above date and was hospitalized for further evaluation of their emergent condition. - New Patient This patient is new to me today: Yes Date on this admission: 05/19/18 - Critical Care Critical Care patient: No
[2018-05-19] MEDS: TOPIRAMATE 50 MG PO SCH (13:43)
[2018-05-19] MEDS: OSELTAMIVIR PHOSPHATE 30 MG CAPSULE PO SCH (13:52)
--- NOTE | 2018-05-19 16:54 | PN ---
Progress Note (short form) - Note Progress Note: covering dr ha problems 1. ESRD 2. s/p fall 3. DM 4. HLD 5. HTN 6. anemia 7. anxiety 8. seizure Current Medications Acetaminophen (Tylenol -) 650 mg PO Q4H PRN PRN Reason: PAIN OR FEVER Last Admin: 05/19/18 06:27 Dose: 650 mg Albuterol/Ipratropium (Duoneb -) 1 amp NEB Q6H PRN PRN Reason: SHORTNESS OF BREATH Amlodipine Besylate (Norvasc -) 10 mg PO DAILY [facility] Last Admin: 05/19/18 09:05 Dose: 10 mg Aspirin (Ecotrin -) 325 mg PO DAILY [facility] Last Admin: 05/19/18 09:05 Dose: 325 mg Atorvastatin Calcium (Lipitor -) 80 mg PO [facility] Last Admin: 05/19/18 08:46 Dose: Not Given Bupropion HCl (Wellbutrin Xl -) 300 mg PO [facility] Carvedilol (Coreg -) 25 mg PO BID [facility] Last Admin: 05/19/18 09:04 Dose: 25 mg Clopidogrel Bisulfate (Plavix -) 75 mg PO DAILY [facility] Last Admin: 05/19/18 09:05 Dose: 75 mg Furosemide (Lasix -) 40 mg PO BIDLASIX [facility] Last Admin: 05/19/18 14:46 Dose: 40 mg Sodium Chloride (Normal Saline -) 250 mls @ 3,000 mls/hr IV PRN PRN PRN Reason: Hypotension during Dialysis Stop: 05/19/18 14:57 Insulin Aspart (Novolog Vial Sliding Scale -) 1 vial SQ [facility]; Protocol Last Admin: 05/19/18 11:06 Dose: Not Given Levetiracetam (Keppra -) 500 mg PO BID [facility] Last Admin: 05/19/18 09:05 Dose: 500 mg Oseltamivir Phosphate (Tamiflu -) 30 mg PO DAILY [facility] Stop: 05/24/18 09:59 Last Admin: 05/19/18 13:52 Dose: 30 mg Senna (Senna -) 2 tab PO [facility] Last Admin: 05/19/18 08:46 Dose: Not Given Sevelamer Carbonate (Renvela -) 800 mg PO TIDCM [facility] Last Admin: 05/19/18 12:10 Dose: 800 mg Topiramate (Topamax -) 50 mg PO BID [facility]O Last Vital Signs Temp Pulse Resp BP Pulse Ox 99.3 F 83 20 134/60 98 05/19/18 14:58 05/19/18 14:58 05/19/18 14:58 05/19/18 14:58 05/19/18 06:00 Lungs clear Heart reg Abd soft CBC, BMP 05/19/18 06:30 05/19/18 06:30 Plan - check ct head - send cultures - check cbc and bmp - pt due for HD Monday - 4 hrs, 2 k bath, epogen 1000, hectorol 3.5, 15 gauge 1 1/4 length - renal diabetic diet
[2018-05-19 17:16] LABS: URINE APPEARANCE TURBID; URINE BILIRUBIN NEGATIVE (<2.0 mg/dL); URINE COLOR AMBER; URINE GLUCOSE (UA) NEGATIVE (NEGATIVE); URINE KETONE NEGATIVE (NEGATIVE); URINE LEUK ESTERASE 3+ (NEGATIVE); URINE NITRITE NEGATIVE (NEGATIVE); URINE PROTEIN 3+ (NEGATIVE); URINE UROBILINOGEN NEGATIVE mg/dL (0.2-1.0)
[2018-05-19 17:34] LABS: EPI CELLS RARE /HPF (FEW); URINE MUCUS FEW
--- NOTE | 2018-05-19 18:46 | HOSP ---
Subjective - Review of Symptoms Events since last encounter: called bt RN, as patient is more lethargic . pt seen and examined. she feels tiered, will wake up and answer questions. denies any SOB but has cough and L sided CP under her breast. during straight cath, pus came out through catheter per RN. on exam: BP 135/72, HR 87, T 99.9. CV: RRR Lungs: more crackly anteriorly Abd : NT ,obese, NL BS . UA reviewed. A/P It seems like patient might be septic due to a UTI. but also has flu and her lungs have more crackles, worry about viral pna. - repeat Cxray - check lactic - start ceftriaxone for UTI - if infiltrates on cxray , can substitute zosyn - EKG and trop . high risk - follow urine cx form last night. if fever again, will re-culture. Physical Examination Vital Signs: Vital Signs Temperature 99.9 F H 05/19/18 18:00 Pulse Rate 78 05/19/18 18:00 Respiratory Rate 20 05/19/18 18:00 Blood Pressure 135/72 05/19/18 18:00 O2 Sat by Pulse Oximetry (%) 98 05/19/18 11:14 Labs: CBC, BMP 05/19/18 06:30 05/19/18 06:30
--- NOTE | 2018-05-19 18:49 | CONSULT ---
Consult - text type - Consultation Consultation Note: NEUROLOGY CONSULTATION is greatly appreciated: This 52 yo RH woman, currently at [facility], has h/o HTN, DM, Chol; PVD (s/p multiple toe amputations) and ESRD on HD. 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 Maintained on: Albuterol; Amlodipine Besylate; Aspirin 325; Atorvastatin; Bupropion 300; Carvedilol 25 mg PO BID; Plavix; Furosemide; Linzess; Renvela; Topiramate 50 mg PO BID; clonazepam 0.5 mg PO BID; levETIRAcetam 500 mg PO BID. Now readmitted from HD with lethargy and confusion. CT of head (reviewed): Moderate, diffuse, atrophy. Diffuse microvascular changes in the white matter and multiple cortical infarcts. Urinary WBC > 700. + Influenza EXAM: Obese. Neck supple. No bruit. Diaphoretic Neuro: Lethargic but arousable. Follows simple commands. Dysarthric, sparse speech. Essentially blind. No obvious facial. Depressed gag. Elevates arms with B/L drift (L>R). Both legs weak. Areflexic in legs. Feels touch all fours. IMP: Toxic-metabolic Encephalopathy due to Urosepsis and flu Underlying OMS, B/L motor signs due to multiple CVA's PD/ RLS/ Migraines/ seizures secondary to old CVA's SUGGEST: Add antibiotics and gentle IV hydration for urosepsis Continue levetiracetam 500 mg BID and Topiramate 50 BID Observe off L-Dopa and Pramipexole Will follow with you. Thank you very much, Simone Faye MD
[2018-05-19] MEDS ORDERED: cefTRIAXone SODIUM 1 GM VIAL ONE (21:29)
[2018-05-19] MEDS ORDERED: DEXTROSE 5%-WATER - 50 ML IVPB ONE (21:30)
[2018-05-19] MEDS: CEFTRIAXONE 1 GM in DEXTROSE 5%-WATER - 50 ML IVPB SCH (21:39)
[2018-05-19] MEDS: TOPIRAMATE 25 MG TABLET (FP) PO SCH (21:44)
[2018-05-20] MEDS: FUROSEMIDE 40 MG TABLET (FP) PO SCH ×2 (06:45→15:05)
[2018-05-20] MEDS: INSULIN SLIDING SCALE (NOVOLOG) 1 VIAL SQ SCH ×4 (06:48→21:26)
[2018-05-20 07:50] LABS: BASO % 0.4 % (0-2.0); EOS % 3.1 % (0-4.5); HEMOGLOBIN 9.3 GM/dL (10.7-15.3); LYMPH % 15.1 % (8-40); MCH 36.6 pg (25.7-33.7); MCHC 33.3 g/dl (32.0-36.0); MEAN PLT VOLUME 9.1 fl (7.5-11.1); MONO % 5.2 % (3.8-10.2); NEUT % 76.2 % (42.8-82.8); PLATELET COUNT 159 K/MM3 (134-434); RBC 2.54 M/mm3 (3.60-5.2); RDW 16.9 % (11.6-15.6); WHITE BLOOD COUNT 9.4 K/mm3 (4.0-10.0)
[2018-05-20] MEDS ORDERED: PT OWN MED DRAWER 7, Y5N ONE ×3 (08:19→21:16)
[2018-05-20] MEDS ORDERED: cefTRIAXone SODIUM 1 GM VIAL ONE (08:19)
[2018-05-20 08:20] LABS: ALBUMIN 2.7 g/dl (3.4-5.0); ALK PHOS 52 U/L (45-117); ANION GAP 5 MMOL/L (8-16); BILIRUBIN,TOTAL 0.4 mg/dL (0.2-1); BLOOD UREA NITROGEN 38 mg/dL (7-18); CALCIUM 9.2 mg/dL (8.5-10.1); CHLORIDE 105 mmol/L (98-107); CO2 31 mmol/L (21-32); GLUCOSE,RANDOM 67 mg/dL (74-106); POTASSIUM 3.9 mmol/L (3.5-5.1); SGOT/AST 30 U/L (15-37); SGPT/ALT 19 U/L (13-61); SODIUM 142 mmol/L (136-145); TOT PROT 5.8 g/dl (6.4-8.2)
[2018-05-20] MEDS ORDERED: DEXTROSE 5%-WATER - 50 ML IVPB ONE (08:20)
[2018-05-20 08:22] LABS: CREATININE 8.6 mg/dL (0.55-1.3)
[2018-05-20] MEDS: SEVELAMER CARBONATE 800 MG TAB (FP) PO SCH ×3 (09:35→18:01)
[2018-05-20] MEDS: CARVEDILOL 25 MG TABLET (FP) PO SCH ×2 (09:35→21:25)
[2018-05-20] MEDS: CLOPIDOGREL BISULFATE 75 MG TABLET (FP) PO SCH (09:35)
[2018-05-20] MEDS: TOPIRAMATE 25 MG TABLET (FP) PO SCH ×2 (09:35→21:26)
[2018-05-20] MEDS: levETIRAcetam 500 MG TABLET (FP) PO SCH ×2 (09:35→21:25)
[2018-05-20] MEDS: amLODIPine BESYLATE 10 MG TABLET (FP) PO SCH (09:35)
[2018-05-20] MEDS: OSELTAMIVIR PHOSPHATE 30 MG CAPSULE PO SCH (09:36)
[2018-05-20] MEDS: CEFTRIAXONE 1 GM in DEXTROSE 5%-WATER - 50 ML IVPB SCH (09:36)
[2018-05-20] MEDS: ASPIRIN 325 MG ENTERIC COATED TABLET (FP) PO SCH (09:36)
[2018-05-20 14:15] VITALS: BMI 34.5
--- NOTE | 2018-05-20 15:26 | PN ---
Progress Note (short form) - Note Progress Note: Subjective: has back pain in sitting position , needed to lie down. has no fever today. has no Abd pain Objective: Vital Signs: Last Vital Signs Temp Pulse Resp BP Pulse Ox 98.5 F 78 20 124/57 L 95 05/20/18 10:00 05/20/18 10:00 05/20/18 10:00 05/20/18 10:00 05/20/18 10:00 Laboratory Results - last 24 hr 05/18/18 05/19/18 05/19/18 16:26 16:00 16:15 WBC RBC Hgb Hct MCV MCH MCHC RDW Plt Count MPV Absolute Neuts (auto) Neutrophils % Lymphocytes % Monocytes % Eosinophils % Basophils % Nucleated RBC % VBG pH 7.39 POC VBG pCO2 41.7 POC VBG pO2 37.0 Mixed VBG HCO3 24.9 Sodium Potassium Chloride Carbon Dioxide Anion Gap BUN Creatinine Creat Clearance w eGFR POC Glucometer 91 Random Glucose Lactic Acid Calcium Total Bilirubin AST ALT Alkaline Phosphatase Troponin I Total Protein Albumin Urine Color Donna Urine Appearance Turbid Urine pH 7.0 Ur Specific [place] 1.010 Urine Protein 3+ H Urine Glucose (UA) Negative Urine Ketones Negative Urine Blood 2+ H Urine Nitrite Negative Urine Bilirubin Negative Urine Urobilinogen Negative Ur Leukocyte Esterase 3+ H D Urine WBC (Auto) 728 Urine RBC (Auto) 3 Ur Epithelial Cells Rare Urine Mucus Few 05/19/18 05/19/18 05/19/18 19:10 19:10 20:42 WBC RBC Hgb Hct MCV MCH MCHC RDW Plt Count MPV Absolute Neuts (auto) Neutrophils % Lymphocytes % Monocytes % Eosinophils % Basophils % Nucleated RBC % VBG pH POC VBG pCO2 POC VBG pO2 Mixed VBG HCO3 Sodium Potassium Chloride Carbon Dioxide Anion Gap BUN Creatinine Creat Clearance w eGFR POC Glucometer 74 Random Glucose Lactic Acid 0.8 Calcium Total Bilirubin AST ALT Alkaline Phosphatase Troponin I 0.14 H Total Protein Albumin Urine Color Urine Appearance Urine pH Ur Specific [place] Urine Protein Urine Glucose (UA) Urine Ketones Urine Blood Urine Nitrite Urine Bilirubin Urine Urobilinogen Ur Leukocyte Esterase Urine WBC (Auto) Urine RBC (Auto) Ur Epithelial Cells Urine Mucus 05/20/18 05/20/18 05/20/18 06:00 06:00 06:00 WBC 9.4 RBC 2.54 L Hgb 9.3 L Hct 28.0 L MCV 110.0 H MCH 36.6 H MCHC 33.3 RDW 16.9 H Plt Count 159 MPV 9.1 Absolute Neuts (auto) 7.2 Neutrophils % 76.2 Lymphocytes % 15.1 D Monocytes % 5.2 Eosinophils % 3.1 D Basophils % 0.4 Nucleated RBC % 0 VBG pH POC VBG pCO2 POC VBG pO2 Mixed VBG HCO3 Sodium 142 Potassium 3.9 Chloride 105 Carbon Dioxide 31 Anion Gap 5 L BUN 38 H Creatinine 8.6 H* Creat Clearance w eGFR 4.88 POC Glucometer Random Glucose 67 L Lactic Acid Calcium 9.2 Total Bilirubin 0.4 AST 30 ALT 19 Alkaline Phosphatase 52 Troponin I 0.11 H Total Protein 5.8 L Albumin 2.7 L Urine Color Urine Appearance Urine pH Ur Specific [place] Urine Protein Urine Glucose (UA) Urine Ketones Urine Blood Urine Nitrite Urine Bilirubin Urine Urobilinogen Ur Leukocyte Esterase Urine WBC (Auto) Urine RBC (Auto) Ur Epithelial Cells Urine Mucus 05/20/18 05/20/18 06:46 11:04 WBC RBC Hgb Hct MCV MCH MCHC RDW Plt Count MPV Absolute Neuts (auto) Neutrophils % Lymphocytes % Monocytes % Eosinophils % Basophils % Nucleated RBC % VBG pH POC VBG pCO2 POC VBG pO2 Mixed VBG HCO3 Sodium Potassium Chloride Carbon Dioxide Anion Gap BUN Creatinine Creat Clearance w eGFR POC Glucometer 72 137 Random Glucose Lactic Acid Calcium Total Bilirubin AST ALT Alkaline Phosphatase Troponin I Total Protein Albumin Urine Color Urine Appearance Urine pH Ur Specific [place] Urine Protein Urine Glucose (UA) Urine Ketones Urine Blood Urine Nitrite Urine Bilirubin Urine Urobilinogen Ur Leukocyte Esterase Urine WBC (Auto) Urine RBC (Auto) Ur Epithelial Cells Urine Mucus Physical Exam: NAD, awake, alert , cooperative. Flat affect, tearful HEENT: symmetric face,. MMM. CV: RRR. No MRG Lungs: CTAB Abd: obese, soft, NT, ND, NL BS Ext : No edema . 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 and R 2nd toe amputation. dry scaly skin on feet A/P : Unfortunate 52 y/o lady with h/o DM , HTN, ESRD on HD MWF, seizure disorder, CVA , possible parkinsonian psychosis and recent admission to [facility] for missed HD, who presented due to possible syncopal event during HD. she was diagnosed with flu and UTI. 1- Possible syncope: ? orthostatic hypotension vs Arrhythmias Vs psych vs. Seizure - cont tele ( no events ) - orthostatic VS flat and sitting . 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 8- chest pain resolved likely due to cough . trop is elevated due to renal failure HLOC Visit type - Emergency Visit Emergency Visit: Yes ED Registration Date: 05/18/18 Care time: The patient presented to the Emergency Department on the above date and was hospitalized for further evaluation of their emergent condition. - New Patient This patient is new to me today: No - Critical Care Critical Care patient: No
[2018-05-20] MEDS: ALBUTEROL SO4 2.5/IPRATROPIUM 0.5 INH SOL 3 ML VIAL.NEB. NEB PRN (21:15)
[2018-05-20] MEDS: SENNOSIDES 8.6MG TABLET (FP) PO SCH (21:25)
[2018-05-20] MEDS: ATORVASTATIN CA 80 MG TABLET (FP) PO SCH (21:25)
--- NOTE | 2018-05-20 22:11 | EKG ---
Test Reason : Blood Pressure : / mmHG Vent. Rate : 080 BPM Atrial Rate : 080 BPM P-R Int : 162 ms QRS Dur : 074 ms QT Int : 370 ms P-R-T Axes : 039 -13 019 degrees QTc Int : 426 ms NORMAL SINUS RHYTHM LOW VOLTAGE QRS SEPTAL INFARCT (CITED ON OR BEFORE 18-MAY-2018) ABNORMAL ECG WHEN COMPARED WITH ECG OF 18-MAY-2018 13:46, NO SIGNIFICANT CHANGE WAS FOUND Confirmed by RUPERTO COON MD ([id number]) on 05/20/2018 10:11:15 PM Referred By: Confirmed By:RUPERTO COON MD
--- NOTE | 2018-05-20 22:14 | PN ---
Progress Note (short form) - Note Progress Note: covering dr ha problems 1. ESRD 2. s/p fall 3. DM 4. HLD 5. HTN 6. anemia 7. anxiety 8. seizure Current Medications Acetaminophen (Tylenol -) 650 mg PO Q4H PRN PRN Reason: PAIN OR FEVER Last Admin: 05/19/18 21:40 Dose: 650 mg Albuterol/Ipratropium (Duoneb -) 1 amp NEB Q6H PRN PRN Reason: SHORTNESS OF BREATH Last Admin: 05/20/18 21:15 Dose: 1 amp Amlodipine Besylate (Norvasc -) 10 mg PO DAILY [facility] Last Admin: 05/20/18 09:35 Dose: 10 mg Aspirin (Ecotrin -) 325 mg PO DAILY [facility] Last Admin: 05/20/18 09:36 Dose: 325 mg Atorvastatin Calcium (Lipitor -) 80 mg PO HS [facility] Last Admin: 05/20/18 21:25 Dose: 80 mg Bupropion HCl (Wellbutrin Xl -) 300 mg PO HS [facility] Last Admin: 05/20/18 21:25 Dose: 300 mg Carvedilol (Coreg -) 25 mg PO BID [facility] Last Admin: 05/20/18 21:25 Dose: 25 mg Clopidogrel Bisulfate (Plavix -) 75 mg PO DAILY [facility] Last Admin: 05/20/18 09:35 Dose: 75 mg Furosemide (Lasix -) 40 mg PO BIDLASIX [facility] Last Admin: 05/20/18 15:05 Dose: 40 mg Sodium Chloride (Normal Saline -) 250 mls @ 3,000 mls/hr IV PRN PRN PRN Reason: Hypotension during Dialysis Stop: 05/19/18 14:57 Ceftriaxone Sodium 1 gm/ (Dextrose) 50 mls @ 100 mls/hr IVPB DAILY [facility] Last Admin: 05/20/18 09:36 Dose: 100 mls/hr Insulin Aspart (Novolog Vial Sliding Scale -) 1 vial SQ ACHS [facility]; Protocol Last Admin: 05/20/18 21:26 Dose: Not Given Levetiracetam (Keppra -) 500 mg PO BID [facility] Last Admin: 05/20/18 21:25 Dose: 500 mg Oseltamivir Phosphate (Tamiflu -) 30 mg PO DAILY [facility] Stop: 05/24/18 09:59 Last Admin: 05/20/18 09:36 Dose: 30 mg Senna (Senna -) 2 tab PO HS [facility] Last Admin: 05/20/18 21:25 Dose: 2 tab Sevelamer Carbonate (Renvela -) 800 mg PO TIDCM [facility] Last Admin: 05/20/18 18:01 Dose: 800 mg Topiramate (Topamax -) 50 mg PO BID [facility] Last Admin: 05/20/18 21:26 Dose: 50 mg Last Vital Signs Temp Pulse Resp BP Pulse Ox 98.9 F 69 20 123/60 95 05/20/18 18:00 05/20/18 18:00 05/20/18 18:00 05/20/18 18:00 05/20/18 10:00 Lungs clear Heart reg Abd soft CBC, BMP 05/19/18 06:30 05/19/18 06:30 Plan - pt due for HD Monday - 4 hrs, 2 k bath, epogen 1000, hectorol 3.5, 15 gauge 1 1/4 length - renal diabetic diet
[2018-05-20] MEDS ORDERED: SODIUM CHLORIDE 250 ML IV PRN (22:16)
[2018-05-21] MEDS: INSULIN SLIDING SCALE (NOVOLOG) 1 VIAL SQ SCH ×4 (05:00→23:23)
[2018-05-21] MEDS: FUROSEMIDE 40 MG TABLET (FP) PO SCH ×2 (05:51→15:22)
[2018-05-21] MEDS: SEVELAMER CARBONATE 800 MG TAB (FP) PO SCH ×3 (08:35→17:28)
[2018-05-21] MEDS ORDERED: cefTRIAXone SODIUM 1 GM VIAL ONE (09:10)
[2018-05-21] MEDS ORDERED: PT OWN MED DRAWER 7, Y5N ONE ×3 (09:10→23:10)
[2018-05-21] MEDS ORDERED: DEXTROSE 5%-WATER - 50 ML IVPB ONE (09:10)
[2018-05-21] MEDS: TOPIRAMATE 25 MG TABLET (FP) PO SCH ×2 (09:59→23:24)
[2018-05-21] MEDS: levETIRAcetam 500 MG TABLET (FP) PO SCH ×2 (09:59→23:22)
[2018-05-21] MEDS: CLOPIDOGREL BISULFATE 75 MG TABLET (FP) PO SCH (09:59)
[2018-05-21] MEDS: CARVEDILOL 25 MG TABLET (FP) PO SCH ×2 (09:59→23:22)
[2018-05-21] MEDS: amLODIPine BESYLATE 10 MG TABLET (FP) PO SCH (09:59)
[2018-05-21] MEDS: ASPIRIN 325 MG ENTERIC COATED TABLET (FP) PO SCH (09:59)
[2018-05-21] MEDS: CEFTRIAXONE 1 GM in DEXTROSE 5%-WATER - 50 ML IVPB SCH (09:59)
[2018-05-21] MEDS: OSELTAMIVIR PHOSPHATE 30 MG CAPSULE PO SCH (10:00)
[2018-05-21] MEDS: ALBUTEROL SO4 2.5/IPRATROPIUM 0.5 INH SOL 3 ML VIAL.NEB. NEB PRN (11:24)
[2018-05-21 12:17] LABS: BASO % 0.5 % (0-2.0); EOS % 5.4 % (0-4.5); HEMATOCRIT 26.2 % (32.4-45.2); HEMOGLOBIN 8.7 GM/dL (10.7-15.3); LYMPH % 15.5 % (8-40); MCHC 33.2 g/dl (32.0-36.0); MEAN CELL VOLUME 108.3 fl (80-96); MEAN PLT VOLUME 9.3 fl (7.5-11.1); MONO % 5.3 % (3.8-10.2); NEUT % 73.3 % (42.8-82.8); PLATELET COUNT 143 K/MM3 (134-434); RBC 2.42 M/mm3 (3.60-5.2); RDW 15.9 % (11.6-15.6); WHITE BLOOD COUNT 6.5 K/mm3 (4.0-10.0)
[2018-05-21 12:51] LABS: ANION GAP 10 MMOL/L (8-16); BLOOD UREA NITROGEN 46 mg/dL (7-18); CALCIUM 8.7 mg/dL (8.5-10.1); CHLORIDE 102 mmol/L (98-107); CO2 27 mmol/L (21-32); GLUCOSE,RANDOM 143 mg/dL (74-106); MAGNESIUM 2.3 mg/dL (1.8-2.4); POTASSIUM 3.8 mmol/L (3.5-5.1); SODIUM 139 mmol/L (136-145)
[2018-05-21 13:30] LABS: CREATININE 9.8 mg/dL (0.55-1.3)
--- NOTE | 2018-05-21 13:38 | ECHO ---
Name: LAURENCE LEONIE Exam:Adult Echocardiogram Study Date: 05/21/2018 09:23 AM Age: 52 yrs Reason For Study: SYNCOPE Height: 66 in Weight: 248 lb BSA: 2.2 m2 MMode/2D Measurements & Calculations IVSd: 1.0 cm Ao root diam: 3.0 cm LVIDd: 4.3 cm LA dimension: 3.7 cm LVIDs: 2.7 cm LVPWd: 1.00 cm EDV(Teich): 82.4 ml LVOT diam: 2.0 cm ESV(Teich): 26.3 ml TAPSE: 2.0 cm Doppler Measurements & Calculations MV E max devan: 83.9 cm/sec Ao V2 max: 138.1 cm/sec MV A max devan: 133.8 cm/sec Ao max P.6 mmHg MV E/A: 0.63 BEBE(V,D): 2.0 cm2 LV V1 max P.3 mmHg Med Peak E' Devan: 4.8 cm/sec LV V1 max: 90.8 cm/sec Med E/e': 17.4 Lat Peak E' Devan: 4.9 cm/sec Lat E/e': 17.0 Procedure A complete two-dimensional transthoracic echocardiogram was performed (2D, M-mode, Doppler and color flow Doppler). Left Ventricle The left ventricle is normal in size. Left ventricular systolic function is normal. Ejection Fraction = 65- 70%. Diastolic dysfunction, Grade II, consistent with elevated left atrial pressure. Ratio E/E'= 17. No regional wall motion abnormalities noted. Right Ventricle The right ventricle is normal size. The right ventricular systolic function is normal. Atria The left atrial size is normal. Right atrial size is normal. Mitral Valve The mitral valve is normal in structure and function. There is no mitral regurgitation noted. Tricuspid Valve The tricuspid valve is normal in structure and function. No tricuspid regurgitation. Aortic Valve The aortic valve is normal in structure and function. No aortic regurgitation is present. Pulmonic Valve The pulmonic valve is not well visualized. Great Vessels The aortic root is normal size. Pericardium/Pleura There is no pericardial effusion. Interpretation Summary The left ventricle is normal in size. Left ventricular systolic function is normal. No regional wall motion abnormalities noted. Ejection Fraction = 65-70%. Diastolic dysfunction, Grade II, consistent with elevated left atrial pressure. Ratio E/E'= 17 The right ventricular systolic function is normal. The left atrial size is normal. Right atrial size is normal. No significant valvular regurgitations There is no pericardial effusion. Previous study is not available for comparison Alcides Marcano MD 05/21/2018 01:38 PM
--- NOTE | 2018-05-21 13:56 | PN ---
Progress Note (short form) - Note Progress Note: Called to evaluate patient's AVG as they were having problems? Currently, patient on HD via her graft. RN states they have removed 1L of fluid and she still has another hour to go. Patient can be dc'd when ready and she should follow-up with Dr. Ch as out- patient for duplex/venogram. Cont care per Medicine. On behalf of Dr. Ch, thank you for the opportunity to participate in your patient's care.
--- NOTE | 2018-05-21 15:07 | CON.PSY ---
Psychiatry Consult Chief Complaint: 52 YEAR OLD FEMALE HAS BEEN ARESIDENT AT [facility], hISTORY OF MULTIPLE cvsaS AND P[ERIPHERAL nEROPLATHY AND DEPRESSION. PATIENT SEEN FOR P[SYCH EVAL FOR vISUAL hALLUCINATIONS,. She is seeing cats and pther animals on the ceiling she began to cry. Patient ios l;aert and able to comprehend. Symptoms: reports: Hallucinations - Previous Psychiatric Treatment Outpatient: Less than 6 mos ago Inpatient: None - Previous Substance Abuse Treatment Outpatient: None Inpatient: None - Reason for Previous Treatment Reason for Previous Treatment: Major Depression - Current Medications Current Medications: Active Medications Acetaminophen (Tylenol -) 650 mg PO Q4H PRN PRN Reason: PAIN OR FEVER Last Admin: 05/19/18 21:40 Dose: 650 mg Albuterol/Ipratropium (Duoneb -) 1 amp NEB Q6H PRN PRN Reason: SHORTNESS OF BREATH Last Admin: 05/21/18 11:24 Dose: 1 amp Amlodipine Besylate (Norvasc -) 10 mg PO DAILY [facility] Last Admin: 05/21/18 09:59 Dose: 10 mg Aspirin (Ecotrin -) 325 mg PO DAILY [facility] Last Admin: 05/21/18 09:59 Dose: 325 mg Atorvastatin Calcium (Lipitor -) 80 mg PO HS [facility] Last Admin: 05/20/18 21:25 Dose: 80 mg Bupropion HCl (Wellbutrin Xl -) 300 mg PO HS [facility] Last Admin: 05/20/18 21:25 Dose: 300 mg Carvedilol (Coreg -) 25 mg PO BID [facility] Last Admin: 05/21/18 09:59 Dose: 25 mg Clopidogrel Bisulfate (Plavix -) 75 mg PO DAILY [facility] Last Admin: 05/21/18 09:59 Dose: 75 mg Docusate Sodium (Colace -) 300 mg PO HS [facility] Furosemide (Lasix -) 40 mg PO BIDLASIX [facility] Last Admin: 05/21/18 05:51 Dose: 40 mg Ceftriaxone Sodium 1 gm/ (Dextrose) 50 mls @ 100 mls/hr IVPB DAILY [facility] Last Admin: 05/21/18 09:59 Dose: 100 mls/hr Sodium Chloride (Normal Saline -) 250 mls @ 3,000 mls/hr IV PRN PRN PRN Reason: Hypotension during Dialysis Stop: 05/21/18 22:16 Insulin Aspart (Novolog Vial Sliding Scale -) 1 vial SQ ACHS [facility]; Protocol Last Admin: 05/21/18 11:33 Dose: Not Given Levetiracetam (Keppra -) 500 mg PO BID [facility] Last Admin: 05/21/18 09:59 Dose: 500 mg Oseltamivir Phosphate (Tamiflu -) 30 mg PO DAILY [facility] Stop: 05/24/18 09:59 Last Admin: 05/21/18 10:00 Dose: 30 mg Polyethylene Glycol (Miralax (For Daily Use) -) 17 gm PO BID [facility] Quetiapine Fumarate (Seroquel -) 50 mg PO [facility] Senna (Senna -) 2 tab PO HS [facility] Last Admin: 05/20/18 21:25 Dose: 2 tab Sevelamer Carbonate (Renvela -) 800 mg PO TIDCM [facility] Last Admin: 05/21/18 11:29 Dose: 800 mg Topiramate (Topamax -) 50 mg PO BID [facility] Last Admin: 05/21/18 09:59 Dose: 50 mg - Allergies Allergies: Allergies Allergy/AdvReac Type Severity Reaction Status Date / Time amoxicillin [Amoxicillin] Allergy Severe Itching Verified 05/18/18 12:25 hydrocodone bitartrate Allergy Severe Hives,ITCHI Verified 05/18/18 12:25 [From Vicodin] NG morphine Allergy Severe Itching Verified 05/18/18 12:25 neomycin [Neomycin] Allergy Severe Swelling Verified 05/18/18 12:25 oxycodone HCl [From Percocet] Allergy Severe Itching,HIV Verified 05/18/18 12:25 ES rofecoxib [From Vioxx] Allergy Severe Hives Verified 05/18/18 12:25 Sulfa (Sulfonamide Allergy Severe sclera Verified 05/18/18 12:25 Antibiotics) reddened,ITCHING tramadol Allergy Severe Vomiting Verified 05/18/18 12:25 tomato Allergy Verified 05/18/18 12:25 grapefruit [Grapefruit] AdvReac Severe CAN'T TAKE Verified 05/18/18 12:25 BECAUSE OF MEDICATIONS vancomycin AdvReac Mild red man Verified 05/18/18 12:25 syndrome Heparin Analogues AdvReac Unknown Verified 05/18/18 12:25 [Heparin Agents] flu shot Allergy Severe GETS FLU Uncoded 05/18/18 12:25 SYMPTOMS grape juice AdvReac Severe Uncoded 05/18/18 12:25 - Current Living Status Usual Living Arrangement: Retirement - Current Mental Status Evaluation Appearance: Disheveled Attitude: Cooperative - Affect Affect: Constrictive Appropriateness: Appropriate to Content - Mood Mood: Anxious - Speech/Language Expressive: Coherent - Psychomotor Activity Psychomotor Activity: Slowed - Thought Process Thought Process: Intact - Thought Content Hallucinations: Present Type: Visual Delusions: Absent - Self Perception Self Perception: No Impairment - Cognition Attention: Alert Orientation: Time Memory, Immediate Recall: Intact Memory, Short Term: 2/3 Memory, Remote with Promptin/3 - Concentration Serial Sevens Intact: No Simple Calculations Intact: Yes - Abstraction Proverb Interpretation: Intact Judgement: Intact - Insight Insight: Intact - Impulse Control Impulse Control: Good Control - Suicidal Ideation Suicidal Ideation: No - Homicidal Ideation Homicidal Ideation: No Assessment/Plan !) Patient needs to vasquez on NUplazid 34 mg po od fpr PD Psychosis but its not on t5he formu;brian. 2) seroquel 50mg po hs for PD Psychosis.
[2018-05-21] MEDS ORDERED: EPOETIN ALFA 2,000 UNIT/1 ML VIAL SQ ONE (16:09)
--- NOTE | 2018-05-21 16:09 | PN ---
Progress Note, Physician History of Present Illness: Pt seen and examined at bedside. She is awake and appears comfortable. She denies shortness of breath. She is tolerating HD. - Current Medication List Current Medications: Active Medications Acetaminophen (Tylenol -) 650 mg PO Q4H PRN PRN Reason: PAIN OR FEVER Last Admin: 05/19/18 21:40 Dose: 650 mg Albuterol/Ipratropium (Duoneb -) 1 amp NEB Q6H PRN PRN Reason: SHORTNESS OF BREATH Last Admin: 05/21/18 11:24 Dose: 1 amp Amlodipine Besylate (Norvasc -) 10 mg PO DAILY [facility] Last Admin: 05/21/18 09:59 Dose: 10 mg Aspirin (Ecotrin -) 325 mg PO DAILY [facility] Last Admin: 05/21/18 09:59 Dose: 325 mg Atorvastatin Calcium (Lipitor -) 80 mg PO HS [facility] Last Admin: 05/20/18 21:25 Dose: 80 mg Bupropion HCl (Wellbutrin Xl -) 300 mg PO HS [facility] Last Admin: 05/20/18 21:25 Dose: 300 mg Carvedilol (Coreg -) 25 mg PO BID [facility] Last Admin: 05/21/18 09:59 Dose: 25 mg Clopidogrel Bisulfate (Plavix -) 75 mg PO DAILY [facility] Last Admin: 05/21/18 09:59 Dose: 75 mg Docusate Sodium (Colace -) 300 mg PO HS [facility] Furosemide (Lasix -) 40 mg PO BIDLASIX [facility] Last Admin: 05/21/18 15:22 Dose: 40 mg Ceftriaxone Sodium 1 gm/ (Dextrose) 50 mls @ 100 mls/hr IVPB DAILY [facility] Last Admin: 05/21/18 09:59 Dose: 100 mls/hr Sodium Chloride (Normal Saline -) 250 mls @ 3,000 mls/hr IV PRN PRN PRN Reason: Hypotension during Dialysis Stop: 05/21/18 22:16 Insulin Aspart (Novolog Vial Sliding Scale -) 1 vial SQ ACHS [facility]; Protocol Last Admin: 05/21/18 11:33 Dose: Not Given Levetiracetam (Keppra -) 500 mg PO BID [facility] Last Admin: 05/21/18 09:59 Dose: 500 mg Oseltamivir Phosphate (Tamiflu -) 30 mg PO DAILY [facility] Stop: 05/24/18 09:59 Last Admin: 05/21/18 10:00 Dose: 30 mg Polyethylene Glycol (Miralax (For Daily Use) -) 17 gm PO BID [facility] Quetiapine Fumarate (Seroquel -) 50 mg PO HS [facility] Senna (Senna -) 2 tab PO HS [facility] Last Admin: 05/20/18 21:25 Dose: 2 tab Sevelamer Carbonate (Renvela -) 800 mg PO TIDCM [facility] Last Admin: 05/21/18 11:29 Dose: 800 mg Topiramate (Topamax -) 50 mg PO BID [facility] Last Admin: 05/21/18 09:59 Dose: 50 mg - Objective Vital Signs: Vital Signs Temperature 98.2 F 05/21/18 14:00 Pulse Rate 76 05/21/18 14:51 Respiratory Rate 18 05/21/18 14:51 Blood Pressure 122/75 05/21/18 14:51 O2 Sat by Pulse Oximetry (%) 97 05/21/18 10:00 Constitutional: Yes: Calm Eyes: Yes: Conjunctiva Clear Cardiovascular: Yes: S1, S2 Respiratory: Yes: CTA Bilaterally Gastrointestinal: Yes: Soft, Abdomen, Obese Genitourinary: Yes: Incontinence Musculoskeletal: Yes: Muscle Weakness Edema: No Neurological: Yes: Oriented Psychiatric: Yes: Oriented Labs: CBC, BMP 05/21/18 11:30 05/21/18 11:30 INR, PTT INR 1.11 (0.83-1.09) H 05/18/18 16:26 Problem List - Problems (1) Altered mental status Code(s): R41.82 - ALTERED MENTAL STATUS, UNSPECIFIED (2) Anemia Code(s): D64.9 - ANEMIA, UNSPECIFIED Qualifiers: Chronic kidney disease stage: on chronic dialysis (3) ESRD (end stage renal disease) Code(s): N18.6 - END STAGE RENAL DISEASE Assessment/Plan Current Medications Generic Name Dose Route Start Last Admin Trade Name Freq PRN Reason Stop Dose Admin Acetaminophen 650 mg 05/18/18 20:53 05/19/18 21:40 Tylenol - PO 650 mg Q4H PRN Administration PAIN OR FEVER Albuterol/Ipratropium 1 amp 05/18/18 20:55 05/21/18 11:24 Duoneb - NEB 1 amp Q6H PRN Administration SHORTNESS OF BREATH Amlodipine Besylate 10 mg 05/19/18 10:00 05/21/18 09:59 Norvasc - PO 10 mg DAILY [facility] Administration Aspirin 325 mg 05/19/18 10:00 05/21/18 09:59 Ecotrin - PO 325 mg DAILY [facility] Administration Atorvastatin Calcium 80 mg 05/18/18 22:00 05/20/18 21:25 Lipitor - PO 80 mg HS [facility] Administration Bupropion HCl 300 mg 05/18/18 22:00 05/20/18 21:25 Wellbutrin Xl - PO 300 mg HS [facility] Administration Carvedilol 25 mg 05/18/18 22:00 05/21/18 09:59 Coreg - PO 25 mg BID [facility] Administration Clopidogrel Bisulfate 75 mg 05/19/18 10:00 05/21/18 09:59 Plavix - PO 75 mg DAILY [facility] Administration Docusate Sodium 300 mg 05/21/18 22:00 Colace - PO HS [facility] Furosemide 40 mg 05/19/18 06:00 05/21/18 15:22 Lasix - PO 40 mg BIDLASIX [facility] Administration Ceftriaxone Sodium 1 gm/ 50 mls @ 100 mls/hr 05/19/18 20:00 05/21/18 09:59 Dextrose IVPB 100 mls/hr DAILY [facility] Administration Sodium Chloride 250 mls @ 3,000 mls/hr 05/20/18 22:16 Normal Saline - IV 05/21/18 22:16 PRN PRN Hypotension during Dialysis Insulin Aspart 1 vial 05/19/18 07:00 05/21/18 11:33 Novolog Vial Sliding Scale - SQ Not Given ACHS [facility] Protocol Levetiracetam 500 mg 05/18/18 22:00 05/21/18 09:59 Keppra - PO 500 mg BID [facility] Administration Oseltamivir Phosphate 30 mg 05/19/18 10:00 05/21/18 10:00 Tamiflu - PO 05/24/18 09:59 30 mg DAILY [facility] Administration Polyethylene Glycol 17 gm 05/21/18 22:00 Miralax (For Daily Use) - PO BID [facility] Quetiapine Fumarate 50 mg 05/21/18 22:00 Seroquel - PO HS [facility] Senna 2 tab 05/18/18 22:00 05/20/18 21:25 Senna - PO 2 tab HS [facility] Administration Sevelamer Carbonate 800 mg 05/19/18 08:00 05/21/18 11:29 Renvela - PO 800 mg TIDCM [facility] Administration Topiramate 50 mg 05/19/18 22:00 05/21/18 09:59 Topamax - PO 50 mg BID [facility] Administration Impression 1. ESRD 2. s/p fall 3. DM 4. HLD 5. HTN 6. anemia 7. anxiety 8. seizure Plan - HD today - will give a dose of epogen - follow cultures - 4 hrs, 2 k bath, epogen 1000, hectorol 3.5, 15 gauge 1 1/4 length - renal diabetic diet
--- NOTE | 2018-05-21 17:16 | PN ---
Progress Note (short form) - Note Progress Note: NEUROLOGY PROGRESS: Events reviewed and discussed with staff. Psych note read and appreciated. Now on IV Ceftriaxone and omseltavir for +Flu and UTI. Resumed on quetiapine 50 mg qhs for hallucinations, "seeing cats" and "hearing their nails scratching" at night Reporting no BM x 1 week Still reporting difficulty swallowing s/p HD this AM WBC 12.8 -> 6.5 NEURO EXAM: Oriented to self, place and time. Remembers me. Decreased rapid tongue movements, reduced gag Intermittent R hand rest tremor and jaw tremor. Cogwheeling present B/ L. Strong grasps. Can lift L leg off bed. Can't lift right leg. 3/5 DF on R. Right leg rests everted Feels vibration both arms. Sensation reduced below the knees. Impression: 1. Multi-infarct state with chronic right hemiparesis. 2. Partail motor seizures involving the right arm due to old CVA 3. Parkinson's disease with Parkinson's disease related Psychosis and worsening of dysphasia off L-Dopa. 4. Toxic-metabolic encephalopathy due to urosepsis- improved. Suggest: Cont abx and gentle IV hydration Stool softeners, laxatives, and mobilize patient oo bed to chair vs constipation. Agree with psych, resume quetiapine 50 mg qhs Resume L-dopa 25/100 TID at 6, 10, 2 and 6. Feed patient at 7-8, 11-12, and 4-5 while seated upright and observed. Nuplazid is authorized and will be started at discharge. Thank you very much, Simone Faye MD
--- NOTE | 2018-05-21 17:29 | PN ---
Teaching Attending Note Name of Resident: Ole Oconnell ATTENDING PHYSICIAN STATEMENT I saw and evaluated the patient. I reviewed the resident's note and discussed the case with the resident. I agree with the resident's findings and plan as documented. SUBJECTIVE: No fever or chills. feels better today. No cp, chronic abd pain. constipation . still sees tigers and hear voices asking her to kill but she does not have a plan for to obey OBJECTIVE: NAD, awake, alert, cooperative. Flat affect, tearful. HEENT: symmetric face. MMM. CV: RRR. No MRG Lungs: CTAB Abd: obese, soft, NT, ND, NL BS Ext : No edema. 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 and R 2nd toe amputation. dry scaly skin on feet A/P : Unfortunate 52 y/o lady with h/o DM ( now A1c4.1) , HTN, ESRD on HD MWF, seizure disorder, CVA, possible parkinsonian psychosis and recent admission to [facility] for missed HD, who presented due to possible syncopal event during HD. she was diagnosed with flu and UTI. 1- Possible syncope: - cont tele 2- Sepsis due to influenza A and complicated UTI: - cont ceftriaxone day 3 - cont tamiflu day 3/5 - urine cx and blood cx reviewed , follow Id and sensitivity 3- Parkinson's psychosis : -seroquel started , will cont - will start nuplazid at dc 3- H/o Seizure: - cont keppra - cont topiramate 4- ESRD: cont HD MWF 5- HTN: cont norvasc and coreg 6- H/o Stroke: cont ASA and plavix 7- H/o DM , A1c 4.1. 8- Constipation : bowel regimen. dysphagia : speech eval HLOC
--- NOTE | 2018-05-21 18:19 | PN ---
Physical Exam: SUBJECTIVE: Patient seen and examined at bedside. Still endorsing auditory and visual hallucinations. OBJECTIVE: Vital Signs Period Temp Pulse Resp BP Sys/[place] Pulse Ox Last 24 Hr 97.8 F-98.2 F 69-105 18-18 93-130/61-79 97-97 GENERAL: NAD HEAD: Atraumatic/Normocephalica. EYES: Sclera Clear EOMI . ENT: MMM LUNGS: CTAB HEART: RRR ABDOMEN: NDNT EXTREMITIES:Amputation toes left foot, hyperpigmented PSYCH: Parkinson's psychosis, auditory and visual hallucinations Laboratory Results - last 24 hr 05/20/18 05/21/18 05/21/18 21:24 05:50 06:27 WBC RBC Hgb Hct MCV MCH MCHC RDW Plt Count MPV Absolute Neuts (auto) Neutrophils % Lymphocytes % Monocytes % Eosinophils % Basophils % Nucleated RBC % Sodium Potassium Chloride Carbon Dioxide Anion Gap BUN Creatinine Creat Clearance w eGFR POC Glucometer 96 65 77 Random Glucose Calcium Magnesium 05/21/18 05/21/18 05/21/18 11:30 11:30 11:31 WBC 6.5 RBC 2.42 L Hgb 8.7 L Hct 26.2 L MCV 108.3 H MCH 36.0 H MCHC 33.2 RDW 15.9 H Plt Count 143 MPV 9.3 Absolute Neuts (auto) 4.8 Neutrophils % 73.3 Lymphocytes % 15.5 Monocytes % 5.3 Eosinophils % 5.4 H Basophils % 0.5 Nucleated RBC % 0 Sodium 139 Potassium 3.8 Chloride 102 Carbon Dioxide 27 Anion Gap 10 BUN 46 H Creatinine 9.8 H* Creat Clearance w eGFR 4.20 POC Glucometer 132 Random Glucose 143 H Calcium 8.7 Magnesium 2.3 05/21/18 17:31 WBC RBC Hgb Hct MCV MCH MCHC RDW Plt Count MPV Absolute Neuts (auto) Neutrophils % Lymphocytes % Monocytes % Eosinophils % Basophils % Nucleated RBC % Sodium Potassium Chloride Carbon Dioxide Anion Gap BUN Creatinine Creat Clearance w eGFR POC Glucometer 101 Random Glucose Calcium Magnesium Active Medications Generic Name Dose Route Start Last Admin Trade Name Freq PRN Reason Stop Dose Admin Acetaminophen 650 mg 05/18/18 20:53 05/19/18 21:40 Tylenol - PO 650 mg Q4H PRN Administration PAIN OR FEVER Albuterol/Ipratropium 1 amp 05/18/18 20:55 02/25/19 11:24 Duoneb - NEB 1 amp Q6H PRN Administration SHORTNESS OF BREATH Amlodipine Besylate 10 mg 05/19/18 10:00 05/21/18 09:59 Norvasc - PO 10 mg DAILY MANDO Administration Aspirin 325 mg 05/19/18 10:00 05/21/18 09:59 Ecotrin - PO 325 mg DAILY MANDO Administration Atorvastatin Calcium 80 mg 05/18/18 22:00 05/20/18 21:25 Lipitor - PO 80 mg HS MANDO Administration Bupropion HCl 300 mg 05/18/18 22:00 05/20/18 21:25 Wellbutrin Xl - PO 300 mg HS MANDO Administration Carvedilol 25 mg 05/18/18 22:00 05/21/18 09:59 Coreg - PO 25 mg BID MANDO Administration Clopidogrel Bisulfate 75 mg 05/19/18 10:00 05/21/18 09:59 Plavix - PO 75 mg DAILY MANDO Administration Docusate Sodium 300 mg 05/21/18 22:00 Colace - PO HS MANDO Furosemide 40 mg 05/19/18 06:00 05/21/18 15:22 Lasix - PO 40 mg BIDLASIX AMNDO Administration Ceftriaxone Sodium 1 gm/ 50 mls @ 100 mls/hr 05/19/18 20:00 05/21/18 09:59 Dextrose IVPB 100 mls/hr DAILY MANDO Administration Sodium Chloride 250 mls @ 3,000 mls/hr 05/20/18 22:16 Normal Saline - IV 05/21/18 22:16 PRN PRN Hypotension during Dialysis Insulin Aspart 1 vial 05/19/18 07:00 05/21/18 11:33 Novolog Vial Sliding Scale - SQ Not Given ACHS [facility] Protocol Levetiracetam 500 mg 05/18/18 22:00 05/21/18 09:59 Keppra - PO 500 mg BID MANDO Administration Oseltamivir Phosphate 30 mg 05/19/18 10:00 05/21/18 10:00 Tamiflu - PO 05/24/18 09:59 30 mg DAILY MANDO Administration Polyethylene Glycol 17 gm 05/21/18 22:00 Miralax (For Daily Use) - PO BID MANDO Quetiapine Fumarate 50 mg 05/21/18 22:00 Seroquel - PO HS MANDO Senna 2 tab 05/18/18 22:00 05/20/18 21:25 Senna - PO 2 tab HS MANDO Administration Sevelamer Carbonate 800 mg 05/19/18 08:00 05/21/18 17:28 Renvela - PO 800 mg TIDCM MANDO Administration Topiramate 50 mg 05/19/18 22:00 05/21/18 09:59 Topamax - PO 50 mg BID MANDO Administration ASSESSMENT/PLAN: 52 y/o F w/PMH of asthma, anemia, seizures, HTN, TIA/strokes with R sided hemiparesis, ESRD on HD (MWF), IDDM presented to ER from dialysis for syncope before starting dialysis session. Found to be flu positive here. -Fevers secondary to Influenza A -Tamiflu 30 mg qd (renally dosed) -Tylenol for fevers. Neg bacilli. -Droplet precautions -UA and UCx ordered. Ucx--> Lactose fermenting neg bacilli. Nonlactose fermenting gnb. Await Sensitivity and plan for dc. -Syncope -May be secondary to infectious etiology and fevers. Head CT neg. EKG unrevealing. -continue tele monitoring -Hallucinations -Previously stopped carb/levidopa due to hallucinations and now on keppra -Resume L-dopa 25/100 TID at 6, 10, 2 and 6. Nuplazid is authorized and will be started at discharge. -Psych Dr Diaz: Recommend Seroquil and Primavanserin -ESRD on HD -dialyzed today. Removed 1.6 kg's -dialysis as per nephrology -Nephrology on board -HTN - lasix 40 PO BID coreg 25 PO BID norvasc 10 PO Daily -Hx of seizures -keppra 500 mg bid -Hx of TIA and stroke -c/w asa, plavix, lipitor -Anxiety/depression -c/w wellbutrin -DVT ppx -SCDs Visit type - Emergency Visit Emergency Visit: Yes ED Registration Date: 05/18/18 Care time: The patient presented to the Emergency Department on the above date and was hospitalized for further evaluation of their emergent condition. - New Patient This patient is new to me today: No - Critical Care Critical Care patient: No - Discharge Referral Referred to [facility] No
[2018-05-21] MEDS: QUEtiapine FUMARATE 25 MG TABLET (FP) PO SCH (23:22)
[2018-05-21] MEDS: ATORVASTATIN CA 80 MG TABLET (FP) PO SCH (23:22)
[2018-05-21] MEDS: DOCUSATE SODIUM 100 MG CAPSULE (FP) PO SCH (23:22)
[2018-05-21] MEDS: SENNOSIDES 8.6MG TABLET (FP) PO SCH (23:22)
[2018-05-21] MEDS: POLYETHYLENE GLYCOL 3350 119 GM BTL PO SCH (23:26)
[2018-05-22] MEDS: FUROSEMIDE 40 MG TABLET (FP) PO SCH ×2 (06:20→14:57)
[2018-05-22] MEDS: INSULIN SLIDING SCALE (NOVOLOG) 1 VIAL SQ SCH ×4 (06:21→21:36)
[2018-05-22 06:39] LABS: HEMATOCRIT 29.7 % (32.4-45.2); HEMOGLOBIN 10.1 GM/dL (10.7-15.3); MCH 36.6 pg (25.7-33.7); MEAN CELL VOLUME 107.7 fl (80-96); MEAN PLT VOLUME 9.2 fl (7.5-11.1); PLATELET COUNT 138 K/MM3 (134-434); RBC 2.76 M/mm3 (3.60-5.2); RDW 16.1 % (11.6-15.6); WHITE BLOOD COUNT 5.3 K/mm3 (4.0-10.0)
[2018-05-22 07:37] LABS: ANION GAP 5 MMOL/L (8-16); BLOOD UREA NITROGEN 29 mg/dL (7-18); CALCIUM 8.5 mg/dL (8.5-10.1); CHLORIDE 104 mmol/L (98-107); CO2 33 mmol/L (21-32); GLUCOSE,RANDOM 76 mg/dL (74-106); MAGNESIUM 2.3 mg/dL (1.8-2.4); PHOSPHOROUS 2.4 mg/dL (2.5-4.9); POTASSIUM 3.7 mmol/L (3.5-5.1); SODIUM 142 mmol/L (136-145)
[2018-05-22 07:46] LABS: CREATININE 7.5 mg/dL (0.55-1.3)
[2018-05-22] MEDS: SEVELAMER CARBONATE 800 MG TAB (FP) PO SCH ×3 (08:15→17:29)
[2018-05-22] MEDS ORDERED: DEXTROSE 5%-WATER - 50 ML IVPB ONE (09:53)
[2018-05-22] MEDS ORDERED: cefTRIAXone SODIUM 1 GM VIAL ONE (09:53)
[2018-05-22] MEDS: CEFTRIAXONE 1 GM in DEXTROSE 5%-WATER - 50 ML IVPB SCH (09:54)
[2018-05-22] MEDS: levETIRAcetam 500 MG TABLET (FP) PO SCH ×2 (09:55→21:30)
[2018-05-22] MEDS: CARVEDILOL 25 MG TABLET (FP) PO SCH ×2 (09:55→21:29)
[2018-05-22] MEDS: TOPIRAMATE 25 MG TABLET (FP) PO SCH ×2 (09:55→21:30)
[2018-05-22] MEDS: ASPIRIN 325 MG ENTERIC COATED TABLET (FP) PO SCH (09:55)
[2018-05-22] MEDS: amLODIPine BESYLATE 10 MG TABLET (FP) PO SCH (09:55)
[2018-05-22] MEDS: POLYETHYLENE GLYCOL 3350 119 GM BTL PO SCH ×2 (09:56→21:36)
[2018-05-22] MEDS: OSELTAMIVIR PHOSPHATE 30 MG CAPSULE PO SCH (09:56)
[2018-05-22] MEDS: CLOPIDOGREL BISULFATE 75 MG TABLET (FP) PO SCH (09:56)
--- NOTE | 2018-05-22 10:33 | PN ---
Progress Note (short form) - Note Progress Note: NEUROLOGY PROGRESS: Events reviewed and discussed with staff. Seen by corporate administrator today. Continues on IV Ceftriaxone and omseltavir for +Flu and UTI. Received quetiapine 25 mg qhs, reports slept well and with no hallucinations of "cats" Reports first BM in 1 week today, but profuse diarrhea. Nuplazid authorization arrived in office today. NEURO EXAM: Oriented to self, place and time. Remembers me. Decreased rapid tongue movements, reduced gag Intermittent jaw tremor. Cogwheeling present B/L. Strong grasps. Can lift L leg off bed. Right leg rests everted and unable to lift. Feels vibration both arms. Sensation reduced below the knees. Impression: 1. Multi-infarct state with chronic right hemiparesis. 2. Partial motor seizures involving the right arm due to old CVA 3. Parkinson's disease 4. Parkinson's disease related Psychosis- improved on quetiapine 5. Toxic-metabolic encephalopathy due to urosepsis- improved. Suggest: To resume L-Dopa 25/100 TID at 6, 10, 2, 6 and observed feedings. Cont abx and gentle IV hydration Mobilize patient oo bed to chair Continue quetiapine 25 mg po qhs at this time Nuplazid is authorized and will be started at discharge. Thank you very much, Simone Faye MD
--- NOTE | 2018-05-22 12:28 | PN ---
Progress Note, Physician History of Present Illness: Pt seen and examined at bedside. She is awake and alert. She denies shortness of breath. - Current Medication List Current Medications: Active Medications Acetaminophen (Tylenol -) 650 mg PO Q4H PRN PRN Reason: PAIN OR FEVER Last Admin: 05/19/18 21:40 Dose: 650 mg Albuterol/Ipratropium (Duoneb -) 1 amp NEB Q6H PRN PRN Reason: SHORTNESS OF BREATH Last Admin: 05/21/18 11:24 Dose: 1 amp Amlodipine Besylate (Norvasc -) 10 mg PO DAILY [facility] Last Admin: 05/22/18 09:55 Dose: 10 mg Aspirin (Ecotrin -) 325 mg PO DAILY [facility] Last Admin: 05/22/18 09:55 Dose: 325 mg Atorvastatin Calcium (Lipitor -) 80 mg PO HS [facility] Last Admin: 05/21/18 23:22 Dose: 80 mg Bupropion HCl (Wellbutrin Xl -) 300 mg PO HS [facility] Last Admin: 05/21/18 23:24 Dose: 300 mg Carbidopa/Levodopa (Sinemet *Cr* 25/100 -) 1 combo PO 0600,1000,1400,1800 [facility] Last Admin: 05/22/18 11:46 Dose: 1 combo Carvedilol (Coreg -) 25 mg PO BID [facility] Last Admin: 05/22/18 09:55 Dose: 25 mg Clopidogrel Bisulfate (Plavix -) 75 mg PO DAILY [facility] Last Admin: 05/22/18 09:56 Dose: 75 mg Docusate Sodium (Colace -) 300 mg PO HS [facility] Last Admin: 05/21/18 23:22 Dose: 300 mg Furosemide (Lasix -) 40 mg PO BIDLASIX [facility] Last Admin: 05/22/18 06:20 Dose: 40 mg Ceftriaxone Sodium 1 gm/ (Dextrose) 50 mls @ 100 mls/hr IVPB DAILY [facility] Last Admin: 05/22/18 09:54 Dose: 100 mls/hr Sodium Chloride (Normal Saline -) 250 mls @ 3,000 mls/hr IV PRN PRN PRN Reason: Hypotension during Dialysis Stop: 05/21/18 22:16 Insulin Aspart (Novolog Vial Sliding Scale -) 1 vial SQ ACHS [facility]; Protocol Last Admin: 05/22/18 11:51 Dose: Not Given Levetiracetam (Keppra -) 500 mg PO BID [facility] Last Admin: 05/22/18 09:55 Dose: 500 mg Oseltamivir Phosphate (Tamiflu -) 30 mg PO DAILY [facility] Stop: 05/24/18 09:59 Last Admin: 05/22/18 09:56 Dose: 30 mg Polyethylene Glycol (Miralax (For Daily Use) -) 17 gm PO BID [facility] Last Admin: 05/22/18 09:56 Dose: 17 gm Quetiapine Fumarate (Seroquel -) 50 mg PO [facility] Last Admin: 05/21/18 23:22 Dose: 50 mg Senna (Senna -) 2 tab PO [facility] Last Admin: 05/21/18 23:22 Dose: 2 tab Sevelamer Carbonate (Renvela -) 800 mg PO TIDCM [facility] Last Admin: 05/22/18 11:46 Dose: 800 mg Topiramate (Topamax -) 50 mg PO BID [facility] Last Admin: 05/22/18 09:55 Dose: 50 mg - Objective Vital Signs: Vital Signs Temperature 98.5 F 05/22/18 10:08 Pulse Rate 78 05/22/18 10:08 Respiratory Rate 18 05/22/18 10:08 Blood Pressure 125/74 05/22/18 10:08 O2 Sat by Pulse Oximetry (%) 99 05/21/18 21:00 Constitutional: Yes: Calm Neck: Yes: Supple Cardiovascular: Yes: S1, S2 Respiratory: Yes: CTA Bilaterally Gastrointestinal: Yes: Soft, Abdomen, Obese Genitourinary: Yes: WNL Musculoskeletal: Yes: Muscle Weakness Edema: No Neurological: Yes: Oriented Labs: CBC, BMP 05/22/18 06:00 05/22/18 06:00 INR, PTT INR 1.11 (0.83-1.09) H 05/18/18 16:26 Problem List - Problems (1) Altered mental status Code(s): R41.82 - ALTERED MENTAL STATUS, UNSPECIFIED (2) Anemia Code(s): D64.9 - ANEMIA, UNSPECIFIED Qualifiers: Chronic kidney disease stage: on chronic dialysis (3) ESRD (end stage renal disease) Code(s): N18.6 - END STAGE RENAL DISEASE Assessment/Plan Current Medications Generic Name Dose Route Start Last Admin Trade Name Freq PRN Reason Stop Dose Admin Acetaminophen 650 mg 05/18/18 20:53 05/19/18 21:40 Tylenol - PO 650 mg Q4H PRN Administration PAIN OR FEVER Albuterol/Ipratropium 1 amp 05/18/18 20:55 05/21/18 11:24 Duoneb - NEB 1 amp Q6H PRN Administration SHORTNESS OF BREATH Amlodipine Besylate 10 mg 05/19/18 10:00 05/22/18 09:55 Norvasc - PO 10 mg DAILY MANDO Administration Aspirin 325 mg 05/19/18 10:00 05/22/18 09:55 Ecotrin - PO 325 mg DAILY [facility] Administration Atorvastatin Calcium 80 mg 05/18/18 22:00 05/21/18 23:22 Lipitor - PO 80 mg HS MANDO Administration Bupropion HCl 300 mg 05/18/18 22:00 05/21/18 23:24 Wellbutrin Xl - PO 300 mg HS MANDO Administration Carbidopa/Levodopa 1 combo 05/22/18 10:00 05/22/18 11:46 Sinemet *Cr* 25/100 - PO 1 combo 0600,1000,1400,1800 [facility] Administration Carvedilol 25 mg 05/18/18 22:00 05/22/18 09:55 Coreg - PO 25 mg BID MANDO Administration Clopidogrel Bisulfate 75 mg 05/19/18 10:00 05/22/18 09:56 Plavix - PO 75 mg DAILY [facility]ANDO Administration Docusate Sodium 300 mg 05/21/18 22:00 05/21/18 23:22 Colace - PO 300 mg HS MANDO Administration Furosemide 40 mg 05/19/18 06:00 05/22/18 06:20 Lasix - PO 40 mg BIDLASIX [facility]O Administration Ceftriaxone Sodium 1 gm/ 50 mls @ 100 mls/hr 05/19/18 20:00 05/22/18 09:54 Dextrose IVPB 100 mls/hr DAILY [facility] Administration Sodium Chloride 250 mls @ 3,000 mls/hr 05/20/18 22:16 Normal Saline - IV 05/21/18 22:16 PRN PRN Hypotension during Dialysis Insulin Aspart 1 vial 05/19/18 07:00 05/22/18 11:51 Novolog Vial Sliding Scale - SQ Not Given ACHS [facility] Protocol Levetiracetam 500 mg 05/18/18 22:00 05/22/18 09:55 Keppra - PO 500 mg BID MANDO Administration Oseltamivir Phosphate 30 mg 05/19/18 10:00 05/22/18 09:56 Tamiflu - PO 05/24/18 09:59 30 mg DAILY [facility]ANDO Administration Polyethylene Glycol 17 gm 05/21/18 22:00 05/22/18 09:56 Miralax (For Daily Use) - PO 17 gm BID MANDO Administration Quetiapine Fumarate 50 mg 05/21/18 22:00 05/21/18 23:22 Seroquel - PO 50 mg HS MANDO Administration Senna 2 tab 05/18/18 22:00 05/21/18 23:22 Senna - PO 2 tab HS [facility]ANDO Administration Sevelamer Carbonate 800 mg 05/19/18 08:00 05/22/18 11:46 Renvela - PO 800 mg TIDCM [facility]O Administration Topiramate 50 mg 05/19/18 22:00 05/22/18 09:55 Topamax - PO 50 mg BID MANDO Administration Impression 1. ESRD 2. s/p fall 3. DM 4. HLD 5. HTN 6. anemia 7. anxiety 8. seizure Plan - will arrange for HD tomorrow - 3 k bath tomorrow - renal diet - epogen for anemia - 4 hrs, 2 k bath, epogen 1000, hectorol 3.5, 15 gauge 1 1/4 length - renal diabetic diet
[2018-05-22] MEDS ORDERED: SODIUM CHLORIDE 250 ML IV PRN (12:30)
--- NOTE | 2018-05-22 14:34 | PN ---
Teaching Attending Note Name of Resident: Ole Oconnell ATTENDING PHYSICIAN STATEMENT I saw and evaluated the patient. I reviewed the resident's note and discussed the case with the resident. I agree with the resident's findings and plan as documented. SUBJECTIVE: No fever or chills . ruggiero snot see tigers any more but she still hears the voices. OBJECTIVE: NAD, awake, alert, cooperative. Flat affect, tearful. CV: RRR. No MRG Lungs: CTAB Abd: obese, soft, NT, ND, NL BS Ext : No edema. 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 and R 2nd toe amputation. dry scaly skin on feet A/P : Unfortunate 52 y/o lady with h/o DM ( now A1c4.1) , HTN, ESRD on HD MWF, seizure disorder, CVA, possible parkinsonian psychosis and recent admission to [facility] for missed HD, who presented due to possible syncopal event during HD. she was diagnosed with flu and UTI. 1- Possible syncope: no recurrence 2- Sepsis due to influenza A and complicated UTI: - ceftriaxone day 4. will cont with po vanti for 2 more doses ( to be given after next 2 HD sessions ) total treatment for 7 days - cont tamiflu day 4/5 - urine cx reviewed. blood cx neg x 72 hrs 3- Parkinson's psychosis : no more visual hallucinations . still with auditory -cont seroquel - will start nuplazid at dc 3- H/o Seizure: - cont keppra - cont topiramate 4- ESRD: cont HD MWF 5- HTN: cont norvasc and coreg 6- H/o Stroke: cont ASA and plavix 7- H/o DM , A1c 4.1. need A1c in 2 months 8- Constipation : bowel regimen. dc today back to her facility ASSESSMENT AND PLAN:
--- NOTE | 2018-05-22 15:12 | DS ---
Physical Exam: SUBJECTIVE: Patient seen and examined at bedside. No acute events overnight. OBJECTIVE: Vital Signs Period Temp Pulse Resp BP Sys/[place] Pulse Ox Last 24 Hr 98.2 F-98.8 F 73-80 18-18 125-152/73-78 99-99 PHYSICAL EXAM GENERAL: No acute distress HEAD: Atraumatic/Normocephalica. EYES: Sclera Clear EOMI . No vision out of left eye. ENT: MMM LUNGS: CTAB HEART: RRR ABDOMEN: NDNT EXTREMITIES:Amputation toes left foot, hyperpigmented PSYCH: Parkinson's psychosis, auditory and visual hallucinations LABS Laboratory Results - last 24 hr 05/21/18 05/21/18 05/22/18 17:31 23:16 05:51 WBC RBC Hgb Hct MCV MCH MCHC RDW Plt Count MPV Sodium Potassium Chloride Carbon Dioxide Anion Gap BUN Creatinine Creat Clearance w eGFR POC Glucometer 101 119 72 Random Glucose Calcium Phosphorus Magnesium 05/22/18 05/22/18 05/22/18 06:00 06:00 11:49 WBC 5.3 RBC 2.76 L Hgb 10.1 L Hct 29.7 L MCV 107.7 H MCH 36.6 H MCHC 34.0 RDW 16.1 H Plt Count 138 MPV 9.2 Sodium 142 Potassium 3.7 Chloride 104 Carbon Dioxide 33 H Anion Gap 5 L BUN 29 H Creatinine 7.5 H* Creat Clearance w eGFR 5.71 POC Glucometer 129 Random Glucose 76 Calcium 8.5 Phosphorus 2.4 L Magnesium 2.3 HOSPITAL COURSE: Date of Admission:05/18/18 Pt is a 52 y/o F w/ a significant PMH of asthma, anemia, seizures, HTN, TIA/ strokes with R sided hemiparesis, ESRD on HD (MWF), IDDM presented to [facility] from dialysis for syncope. Pt's Head CT was negative for any acute pathology. Rapid influenza was positive for type A. Pt was subsequently started on tamiflu. Furthermore, pt was started on empiric antibiotic treatment with Ceftriaxone for UTI. Urinalysis revealed 728 WBCs and urine culture came back positive for Raoultella ornithinolytica and Citrobacter Koseri. During stay, pt endorses she was seeing various types of animals as well as hearing voices that were telling her to " kill kill kill". Pt was evaluated by psychiatry who suggested she be on Seroquel 50 mg HS and Nuplazid for Parkinson's psychosis. Pt was also dialyzed during her stay. Pt was discharged back to her snf. Date of Discharge: 05/22/18 Minutes to complete discharge: 35 Discharge Summary Reason For Visit: FLU TYPE A,ESRD Current Active Problems Influenza A (Acute) UTI (urinary tract infection) (Acute) Urinary tract bacterial infections (Acute) Weakness (Acute) Arteriovenous fistula (Chronic) Asthma (Chronic) CVA (cerebral vascular accident) (Chronic) ESRD (end stage renal disease) (Chronic) ESRD (end stage renal disease) (Chronic) ESRD (end stage renal disease) (Chronic) Hallucinations (Chronic) Hemodialysis access, AV graft (Chronic) Hypertension (Chronic) Psychosis (Chronic) TIA (transient ischemic attack) (Chronic) Condition: Improved - Instructions Diet, Activity, Other Instructions: You presented to the hospital for loss of consciousness during hemodialysis. You were also found to have a urinary tract infection which you received antibiotics for. Furthermore, during your stay, you were observed to be hallucinating and hearing voices. You were also found to have the influenza virus. Please take the following medications upon discharge: Cefpodoxime 200 MG PO . take after dialysis on 05/23, and . then stop Seroquel 50 MG PO at night time. Nuplazid 34 mg PO Daily Please continue to take all of your other prescribed medications. Please follow up with the kidney Doctor, Dr Sharma in 1 week. Please follow up with Dr Faye in 1 week, Neurologist Please follow up with your primary care doctor. If you don't have one, you may establish care at our medical clinic. Please follow up with the Psychiatrist, Dr Diaz in 1 week. Please continue to undergo Dialysis. You are on a Monday, Monday, Monday schedule. You will receive dialysis tomorrow May 23, 2018. Please return to the Emergency department if you begin to experience chest pain , shortness of breath, nausea/fevers, or any other symptoms. Referrals: Raven Diaz MD [Staff Physician] - Simone Faye MD [Staff Physician] - Melissa Sharma MD [Staff Physician] - Disposition: [facility] FACILITY - Home Medications Comprehensive Discharge Medication List: Ambulatory Orders Albuterol 0.083% Nebulizer Bonita [Ventolin 0.083% Nebulizer Soln -] 1 amp NEB DAILY 05/02/18 Amlodipine Besylate [Norvasc -] 10 mg PO DAILY 05/02/18 Aspirin [Aspirin EC] 325 mg PO DAILY 05/02/18 Atorvastatin Ca [Lipitor] 80 mg PO HS 05/02/18 Bupropion HCl [Wellbutrin Xl] 300 mg PO HS 05/02/18 Carvedilol [Coreg -] 25 mg PO BID 05/02/18 Clopidogrel Bisulfate [Plavix] 75 mg PO DAILY 05/02/18 Folic Acid/Vit B Complex and C [Folbee Plus Tablet] 5 mg PO DAILY 05/02/18 Furosemide [Lasix] 40 mg PO BID 05/02/18 Linaclotide [Linzess] 145 mcg PO DAILY 05/02/18 Sennosides [Senna] 17.2 mg GT HS 05/02/18 Sevelamer Carbonate [Renvela -] 800 mg PO TID 05/02/18 Topiramate [Topiramate ER] 50 mg PO BID 05/02/18 clonazePAM [Klonopin -] 0.5 mg PO BID 05/02/18 levETIRAcetam [Keppra -] 500 mg PO BID 05/02/18 Albuterol 2.5/Ipratropium 0.5 [Duoneb -] 1 amp NEB Q6H PRN amp 05/22/18 Cefpodoxime Proxetil [Vantin -] 200 mg PO Q48H #2 tablet 05/22/18 Docusate Sodium [Colace -] 300 mg PO HS capsule 05/22/18 Pimavanserin Tartrate [Nuplazid] 34 mg PO DAILY #30 capsule 05/22/18 Polyethylene Glycol 3350 [Miralax 119 gm Btl -] 17 gm PO BID bottle 05/22/18 Quetiapine Fumarate [Seroquel -] 50 mg PO HS tablet 05/22/18 This patient is new to me today: No Emergency Visit: Yes ED Registration Date: 05/18/18 Care time: The patient presented to the Emergency Department on the above date and was hospitalized for further evaluation of their emergent condition. Critical Care patient: No - Discharge Referral Referred to [facility] No
[2018-05-22] MEDS ORDERED: PT OWN MED DRAWER 7, Y5N ONE ×2 (18:40→21:23)
[2018-05-22 20:05] VITALS: PULSE 76
[2018-05-22] MEDS: ALBUTEROL SO4 2.5/IPRATROPIUM 0.5 INH SOL 3 ML VIAL.NEB. NEB PRN (20:39)
[2018-05-22] MEDS: QUEtiapine FUMARATE 25 MG TABLET (FP) PO SCH (21:29)
[2018-05-22] MEDS: ATORVASTATIN CA 80 MG TABLET (FP) PO SCH (21:29)
[2018-05-22] MEDS: DOCUSATE SODIUM 100 MG CAPSULE (FP) PO SCH (21:36)
[2018-05-22] MEDS: SENNOSIDES 8.6MG TABLET (FP) PO SCH (21:37)
[2018-05-22] MEDS ORDERED: RANITIDINE HCL 150 MG TABLET (FP) PO ONE (21:41)
--- NOTE | 2018-05-22 21:46 | PN ---
Progress Note (short form) - Note Progress Note: Paged by nurse to assess pt on unit. Pt ready to be transported back to [place], but per nurse, pt was complaining of chest pain. Upon evaluation, pt presented with "stomach pain" that happened after drinking orange juice. She states she has had similar pain in the past and attributes it to acid reflux. She denies chest pain or abdominal pain. Pt also states she feels well enough to go home. 1 dose of PO Zantac given to patient.Advised patient to follow up with her primary care physician after discharge and to take antacid for her reflux symptoms.
[2018-05-22 22:14] VITALS: BP 145/80; TEMP 98.1
[2018-05-23] MEDS ORDERED: EPOETIN ALFA 2,000 UNIT/1 ML VIAL IVPUSH ONE (12:30)
== END 2018-05-22 22:30 | DRG 811 ==
LOC: JER 12:12 → JERBED 18:31 → J6S 23:31 → J4S 05-19 01:57
PROVIDERS: ADMIT Internal Medicine; ATTEND Internal Medicine
PROC: 5A1D70Z Performance of Urinary Filtration, Intermittent, Less than 6 Hours Per Day (ICD-10-PCS; principal; 2018-05-18)
PROC: 5A1D70Z Performance of Urinary Filtration, Intermittent, Less than 6 Hours Per Day (ICD-10-PCS; 2018-05-21)
DX: D64.9 Anemia, unspecified (principal); N18.6 End stage renal disease; G93.41 Metabolic encephalopathy; I12.0 Hypertensive chronic kidney disease with stage 5 chronic kidney disease or end stage renal disease; I69.351 Hemiplegia and hemiparesis following cerebral infarction affecting right dominant side; R44.0 Auditory hallucinations; N39.0 Urinary tract infection, site not specified; E11.22 Type 2 diabetes mellitus with diabetic chronic kidney disease; K21.9 Gastro-esophageal reflux disease without esophagitis; E78.5 Hyperlipidemia, unspecified; E11.51 Type 2 diabetes mellitus with diabetic peripheral angiopathy without gangrene; G47.30 Sleep apnea, unspecified; K59.00 Constipation, unspecified; E11.319 Type 2 diabetes mellitus with unspecified diabetic retinopathy without macular edema; E66.9 Obesity, unspecified; Z68.34 Body mass index [BMI] 34.0-34.9, adult; J10.1 Influenza due to other identified influenza virus with other respiratory manifestations; G20 Parkinson's disease; R55 Syncope and collapse; G43.909 Migraine, unspecified, not intractable, without status migrainosus; H54.40 Blindness, one eye, unspecified eye; J45.909 Unspecified asthma, uncomplicated; R13.10 Dysphagia, unspecified; G40.909 Epilepsy, unspecified, not intractable, without status epilepticus; R26.89 Other abnormalities of gait and mobility; R44.1 Visual hallucinations; F41.8 Other specified anxiety disorders; Z79.4 Long term (current) use of insulin; Z86.73 Personal history of transient ischemic attack (TIA), and cerebral infarction without residual deficits; Z99.2 Dependence on renal dialysis; Z89.422 Acquired absence of other left toe(s)
CPT/HCPCS: 36415; 70450-TC; 71045-TC-FY; 80048; 80053; 80177; 81003; 81015; 82803; 82962; 83036; 83605; 83735; 84100; 84484; 85025; 85027; 85610; 85730; 87040; 87086; 87186; 87804; 93005; 93010; 93306-TC; 93880-TC; 94640; 97116-GP; 97162-GP; 99283-25; J0131; J0885

== ENCOUNTER 2018-09-03 14:17 | Observation (INO) | payer OTHER ==
--- NOTE | 2018-09-03 16:25 | PDOC ---
History of Present Illness - General Chief Complaint: Syncope/Near Syncope Stated Complaint: Syncope/Near Syncope Time Seen by Provider: 09/03/18 16:06 - History of Present Illness Initial Comments: 09/03/18 16:28 The patient is a 52 year old female with a PMH of ESRD (M/W/F HD), Parkinson's Disease, ARON, MSSA, Osteomyelitis, HLD, IDDM Seizure disorder who was BIBA following a syncopal episode at dialysis today. Patient states the last thing she remembers is having her glucose checked at dialysis and then being poked and told to wake up. Denies any pre-syncopal chest pain, shortness of breath, lightheadedness, palpitations. Patient and patient's aide @ bedside state patient is at baseline which includes slowed speech and using a wheelchair to mobilize. As per patient's paperwork from [facility], patient had 2 hours and 50 minutes of dialysis today with 2.4 kg removed, normally she has 2-3 kg removed over 3 hours. Allergy: Amoxicillin, Hydrocodone Bitartrate, Morphine, Neomycin, Oxycodone HCl , Rofecoxib, Sulfa, Tramadol, Influenza vaccine Fish Hatchery Man: Dr. Sebastián Parr Emergency Contact: Rosita Frankel Past History - Past Medical History Allergies/Adverse Reactions: Allergies Allergy/AdvReac Type Severity Reaction Status Date / Time amoxicillin [Amoxicillin] Allergy Severe Itching Verified 09/03/18 14:25 hydrocodone bitartrate Allergy Severe Hives,ITCHI Verified 09/03/18 14:25 [From Vicodin] NG morphine Allergy Severe Itching Verified 09/03/18 14:25 neomycin [Neomycin] Allergy Severe Swelling Verified 09/03/18 14:25 oxycodone HCl [From Percocet] Allergy Severe Itching,HIV Verified 09/03/18 14:25 ES rofecoxib [From Vioxx] Allergy Severe Hives Verified 09/03/18 14:25 Sulfa (Sulfonamide Allergy Severe sclera Verified 09/03/18 14:25 Antibiotics) reddened,ITCHING tramadol Allergy Severe Vomiting Verified 09/03/18 14:25 tomato Allergy Verified 09/03/18 14:25 grapefruit [Grapefruit] AdvReac Severe CAN'T TAKE Verified 09/03/18 14:25 BECAUSE OF MEDICATIONS vancomycin AdvReac Mild red man Verified 09/03/18 14:25 syndrome Heparin Analogues AdvReac Unknown Verified 09/03/18 14:25 [Heparin Agents] flu shot Allergy Severe GETS FLU Uncoded 09/03/18 14:25 SYMPTOMS grape juice AdvReac Severe Uncoded 09/03/18 14:25 Home Medications: Ambulatory Orders Albuterol 0.083% Nebulizer Bonita [Ventolin 0.083% Nebulizer Soln -] 1 amp NEB DAILY 05/02/18 Amlodipine Besylate [Norvasc -] 10 mg PO DAILY 05/02/18 Aspirin [Aspirin EC] 325 mg PO DAILY 05/02/18 Atorvastatin Ca [Lipitor] 80 mg PO HS 05/02/18 Bupropion HCl [Wellbutrin Xl] 300 mg PO HS 05/02/18 Carvedilol [Coreg -] 25 mg PO BID 05/02/18 Clopidogrel Bisulfate [Plavix] 75 mg PO DAILY 05/02/18 Folic Acid/Vit B Complex and C [Folbee Plus Tablet] 5 mg PO DAILY 05/02/18 Furosemide [Lasix] 40 mg PO BID 05/02/18 Linaclotide [Linzess] 145 mcg PO DAILY 05/02/18 Sennosides [Senna] 17.2 mg GT HS 05/02/18 Sevelamer Carbonate [Renvela -] 800 mg PO TID 05/02/18 Topiramate [Topiramate ER] 50 mg PO BID 05/02/18 clonazePAM [Klonopin -] 0.5 mg PO BID 05/02/18 levETIRAcetam [Keppra -] 500 mg PO BID 05/02/18 Albuterol 2.5/Ipratropium 0.5 [Duoneb -] 1 amp NEB Q6H PRN amp 05/22/18 Cefpodoxime Proxetil [Vantin -] 200 mg PO Q48H #2 tablet 05/22/18 Docusate Sodium [Colace -] 300 mg PO HS capsule 05/22/18 Pimavanserin Tartrate [Nuplazid] 34 mg PO DAILY #30 capsule 05/22/18 Pimavanserin Tartrate [Nuplazid] 34 mg PO DAILY #30 capsule 05/22/18 Polyethylene Glycol 3350 [Miralax 119 gm Btl -] 17 gm PO BID bottle 05/22/18 Quetiapine Fumarate [Seroquel -] 50 mg PO HS tablet 05/22/18 Quetiapine Fumarate [Seroquel -] 50 mg PO HS #30 tablet 05/22/18 Anemia: Yes Asthma: Yes Cancer: No Cardiac Disorders: No CVA: Yes (TIA 2016, last 2016, tia x7) COPD: No CHF: No Dementia: No Diabetes: Yes Dialysis: Yes (m,w,f) GI Disorders: Yes (gerd) Disorders: No HTN: Yes Hypercholesterolemia: Yes Liver Disease: No Psychiatric Problems: Yes (ANXIETY.) Seizures: Yes Thyroid Disease: No - Surgical History Abdominal Surgery: No Appendectomy: No Cardiac Surgery: Yes (AV graft right arm) Cholecystectomy: No Lung Surgery: No Neurologic Surgery: No Orthopedic Surgery: No - Immunization History Td Vaccination: No TDAP Vaccination: No Immunization Up to Date: Yes - Suicide/Smoking/Psychosocial Hx Smoking Status: No Smoking History: Unknown if ever smoked Have you smoked in the past 12 months: No Number of Cigarettes Smoked Daily: 0 Information on smoking cessation initiated: No Hx Alcohol Use: No Drug/Substance Use Hx: No Substance Use Type: None, Alcohol Hx Substance Use Treatment: No Review of Systems - Review of Systems Constitutional: No: Chills, Fever HEENTM: No: Recent change in vision Respiratory: No: Cough, Shortness of Breath, Stridor Cardiac (ROS): Yes: Syncope. No: Chest Pain, Lightheadedness, Palpitations ABD/GI: No: Constipated, Diarrhea, Nausea, Vomiting *Physical Exam - Vital Signs Last Vital Signs Temp Pulse Resp BP Pulse Ox 97.7 F 77 16 129/73 100 09/03/18 14:22 09/03/18 14:22 09/03/18 14:22 09/03/18 14:22 09/03/18 14:22 - Physical Exam Comments: 09/03/18 22:39 Awake, alert, slow/labored speech HEENT: pinpoint pupils B/L, EOMI, decreased visual acuity in R eye CV: S1, S2, RRR Respiratory: CLTA B/L, no wheeze Extremity: 2+ DP pulses, trace edema in B/L LE (chronic), RUE fistula w/bruit Abdomen: soft, non-tender, (+) bowel sounds ED Treatment Course - LABORATORY CBC & Chemistry Diagram: 09/03/18 18:45 09/03/18 18:45 Medical Decision Making - Medical Decision Making 09/03/18 19:31 52 year old female with MMP including ESRD on HD, Parkinson's Disease s/p syncopal episode @ HD today. Will evaluate for cardiac (arrythmia, r/o ACS, valvular abnormalities), neurologic (CVA/TIA), autonomic (hypotension) or iatrogenic (excess fluid removal during HD) etiologies. PLAN: Troponin, EKG, CXR, Head CT, basic labs Reassess 09/03/18 22:37 BUN/Cr elevated c/w HD No hyperkalemia EKG non-ischemic as documented in EKG section or EMR Troponin (-) Nephrology @ bedside; agrees with admission, requests Head CT given patient on A /C with propensity to bleed 09/03/18 23:42 No acute findings on Head CT Hospitalist @ bedside Patient admitted OBS Tele Clinical Impression: Hypotension induced Syncope *DC/Admit/Observation/Transfer Diagnosis at time of Disposition: Syncope - Discharge Dispostion Condition at time of disposition: Fair Decision to Admit order: Yes - Referrals - Patient Instructions - Post Discharge Activity
--- NOTE | 2018-09-03 17:40 | PDOC ---
Documentation entered by Maria Aguilar SCRIBE, acting as scribe for Francia Tello MD. Francia Tello MD: This documentation has been prepared by the Lauren emerson Nirvannie, SCRIBE, under my direction and personally reviewed by me in its entirety. I confirm that the documentation accurately reflects all work, treatment, procedures, and medical decision making performed by me. Attending Attestation - Resident Resident Name: Lucinda Franklin - ED Attending Attestation I have performed the following: I have examined & evaluated the patient, The case was reviewed & discussed with the resident, I agree w/resident's findings & plan, Exceptions are as noted - HPI HPI: 09/03/18 17:06 The patient is a 52 year old female, with a significant past medical history of ESRD (on HD MWF), hx of TIA, hx of seizure disorder, HTN, HLD, GERD, IDDM, who presents to the emergency department s/p syncope during dialysis. The last thing the patient endorses remembering is getting her glucose tested prior to the episode. She denies recent chest pain or shortness of breath. Allergies: Amoxicillin, hydrocodone bitartrate, morphine, neomycin, oxycodone HCl, rofecoxib, Sulfa, tramadol, tomato, grapefruit, flu shot, and grape juice Past surgical history: None reported. Social history: Nonsmoker. Denies EtOH use and recreational drug use. Dr. Sebastián Parr - Physicial Exam PE: 09/03/18 17:06 GENERAL: Awake, alert, and fully oriented, in no acute distress HEAD: No signs of trauma EYES: Pupils pinpoint B/L, EOMI, sclera anicteric, conjunctiva clear ENT: Auricles normal inspection, hearing grossly normal, nares patent, oropharynx clear without exudates. Moist mucosa NECK: Normal ROM, supple, no lymphadenopathy, JVD, or masses LUNGS: Breath sounds equal, clear to auscultation bilaterally. No wheezes, and no crackles HEART: Regular rate and rhythm, normal S1 and S2, no murmurs, rubs or gallops ABDOMEN: Soft, nontender, normoactive bowel sounds. No guarding, no rebound. No masses EXTREMITIES: Normal range of motion, no edema. No clubbing or cyanosis. No cords , erythema, or tenderness. RUE fistula with +thrill NEUROLOGICAL: Cranial nerves II through XII grossly intact. Sluggish speech. Motor and sensation intact SKIN: Warm, Dry, normal turgor, no rashes or lesions noted - Medical Decision Making Pt with syncopal event during HD. Currently asymptomatic. In light of her multiple comorbidities, will need a cardiac workup.
[2018-09-03 19:18] LABS: BASO % 0.6 % (0-2.0); EOS % 3.9 % (0-4.5); HEMATOCRIT 26.8 % (32.4-45.2); HEMOGLOBIN 8.5 GM/dL (10.7-15.3); LYMPH % 21.1 % (8-40); MCH 32.7 pg (25.7-33.7); MCHC 31.8 g/dl (32.0-36.0); MEAN PLT VOLUME 10.4 fl (7.5-11.1); MONO % 6.2 % (3.8-10.2); NEUT % 68.2 % (42.8-82.8); PLATELET COUNT 133 K/MM3 (134-434); RDW 13.9 % (11.6-15.6); WHITE BLOOD COUNT 5.5 K/mm3 (4.0-10.0)
[2018-09-03 19:47] LABS: INR 0.97 (0.83-1.09); PROTHROMBIN TIME (PATIENT) 11.4 SEC (9.7-13.0)
[2018-09-03 19:50] LABS: ACTIVATED PTT 33.1 SECONDS (25.2-36.5)
[2018-09-03 19:51] LABS: ALBUMIN 3.7 g/dl (3.4-5.0); BILIRUBIN,TOTAL 0.3 mg/dL (0.2-1); BLOOD UREA NITROGEN 30.3 mg/dL (7-18); CALCIUM 9.3 mg/dL (8.5-10.1); N-TERMINAL BNP 1148.6 pg/ml (5-125); POTASSIUM 4.2 mmol/L (3.5-5.1)
--- NOTE | 2018-09-03 21:41 | CONSULT ---
Consult Consult Specialty:: Nephrology Reason for Consultation:: ESRD - History of Present Illness Chief Complaint: syncope during dialysis History of Present Illness: Pt is a 52 year old female with pmhx of ESRD on HD MWF, cva, mssa, osteo, hld, dm, and epilepsy who was sent in from HD after a syncopal episode. She does not remember what happened. She had had such episodes in the past. She denies chest pain or shortness of breath. She denies weakness. Her mental status is now at baseline. She denies fevers or chills. She completed 2 hrs and 50 min of hd and had 2.4 liters of fluid removed. 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 Cardio/Vascular: Yes: HTN, Hyperlipdemia, Other (Peripheral vascular disease) Pulmonary: Yes: Asthma, Sleep Apnea Gastrointestinal: Yes: Constipation Renal/: Yes: Renal Failure, Hemodialysis ...LMP: 05/18/18 Rheumatology: Yes: Other (See HPI) Endocrine: Yes: Diabetes Mellitus - Past Surgical History Past Surgical History: Yes: Amputation, AV Fistula/Graft, - Alcohol/Substance Use Hx Alcohol Use: No - Smoking History Smoking history: Unknown if ever smoked Have you smoked in the past 12 months: No Aproximately how many cigarettes per day: 0 - Social History Usual Living Arrangement: Alf ADL: Independent History of Recent Travel: No Home Medications - Allergies Allergies/Adverse Reactions: Allergies Allergy/AdvReac Type Severity Reaction Status Date / Time amoxicillin [Amoxicillin] Allergy Severe Itching Verified 09/03/18 14:25 hydrocodone bitartrate Allergy Severe Hives,ITCHI Verified 09/03/18 14:25 [From Vicodin] NG morphine Allergy Severe Itching Verified 09/03/18 14:25 neomycin [Neomycin] Allergy Severe Swelling Verified 09/03/18 14:25 oxycodone HCl [From Percocet] Allergy Severe Itching,HIV Verified 09/03/18 14:25 ES rofecoxib [From Vioxx] Allergy Severe Hives Verified 09/03/18 14:25 Sulfa (Sulfonamide Allergy Severe sclera Verified 09/03/18 14:25 Antibiotics) reddened,ITCHING tramadol Allergy Severe Vomiting Verified 09/03/18 14:25 tomato Allergy Verified 09/03/18 14:25 grapefruit [Grapefruit] AdvReac Severe CAN'T TAKE Verified 09/03/18 14:25 BECAUSE OF MEDICATIONS vancomycin AdvReac Mild red man Verified 09/03/18 14:25 syndrome Heparin Analogues AdvReac Unknown Verified 09/03/18 14:25 [Heparin Agents] flu shot Allergy Severe GETS FLU Uncoded 09/03/18 14:25 SYMPTOMS grape juice AdvReac Severe Uncoded 09/03/18 14:25 - Home Medications Home Medications: Ambulatory Orders Albuterol 0.083% Nebulizer Bonita [Ventolin 0.083% Nebulizer Soln -] 1 amp NEB DAILY 05/02/18 Amlodipine Besylate [Norvasc -] 10 mg PO DAILY 05/02/18 Aspirin [Aspirin EC] 325 mg PO DAILY 05/02/18 Atorvastatin Ca [Lipitor] 80 mg PO HS 05/02/18 Bupropion HCl [Wellbutrin Xl] 300 mg PO HS 05/02/18 Carvedilol [Coreg -] 25 mg PO BID 05/02/18 Clopidogrel Bisulfate [Plavix] 75 mg PO DAILY 05/02/18 Folic Acid/Vit B Complex and C [Folbee Plus Tablet] 5 mg PO DAILY 05/02/18 Furosemide [Lasix] 40 mg PO BID 05/02/18 Linaclotide [Linzess] 145 mcg PO DAILY 05/02/18 Sennosides [Senna] 17.2 mg GT HS 05/02/18 Sevelamer Carbonate [Renvela -] 800 mg PO TID 05/02/18 Topiramate [Topiramate ER] 50 mg PO BID 05/02/18 clonazePAM [Klonopin -] 0.5 mg PO BID 05/02/18 levETIRAcetam [Keppra -] 500 mg PO BID 05/02/18 Albuterol 2.5/Ipratropium 0.5 [Duoneb -] 1 amp NEB Q6H PRN amp 05/22/18 Cefpodoxime Proxetil [Vantin -] 200 mg PO Q48H #2 tablet 05/22/18 Docusate Sodium [Colace -] 300 mg PO HS capsule 05/22/18 Pimavanserin Tartrate [Nuplazid] 34 mg PO DAILY #30 capsule 05/22/18 Pimavanserin Tartrate [Nuplazid] 34 mg PO DAILY #30 capsule 05/22/18 Polyethylene Glycol 3350 [Miralax 119 gm Btl -] 17 gm PO BID bottle 05/22/18 Quetiapine Fumarate [Seroquel -] 50 mg PO HS tablet 05/22/18 Quetiapine Fumarate [Seroquel -] 50 mg PO HS #30 tablet 05/22/18 Family Disease History - Family Disease History Family History: Denies Review of Systems - Review of Systems Constitutional: denies: Chills, Fever Eyes: reports: No Symptoms HENT: reports: No Symptoms Neck: reports: No Symptoms Cardiovascular: reports: No Symptoms Respiratory: reports: No Symptoms Gastrointestinal: reports: No Symptoms Genitourinary: reports: No Symptoms Musculoskeletal: reports: No Symptoms Neurological: reports: Change in LOC, Pre-Existing Deficit. denies: Change in Speech, Confusion, Dizziness Endocrine: reports: No Symptoms Hematology/Lymphatic: reports: No Symptoms Psychiatric: reports: No Symptoms Physical Exam Vital Signs: Vital Signs Temperature 97.7 F 09/03/18 14:22 Pulse Rate 77 09/03/18 14:22 Respiratory Rate 16 09/03/18 14:22 Blood Pressure 129/73 09/03/18 14:22 O2 Sat by Pulse Oximetry (%) 100 09/03/18 14:22 Constitutional: Yes: Calm Eyes: Yes: Conjunctiva Clear HENT: Yes: Atraumatic Neck: Yes: Supple Cardiovascular: Yes: S1, S2 Respiratory: Yes: CTA Bilaterally Gastrointestinal: Yes: Soft Renal/: Yes: WNL Musculoskeletal: Yes: Muscle Weakness Edema: Yes Edema: LLE: Trace, RLE: Trace Neurological: Yes: Oriented Psychiatric: Yes: Oriented Labs: CBC, BMP 09/03/18 18:45 09/03/18 18:45 Laboratory Tests 09/03/18 09/03/18 18:45 18:45 WBC 5.5 Hgb 8.5 L Plt Count 133 L BUN 30.3 H Creatinine 7.0 H Problem List - Problems (1) Syncope Code(s): R55 - SYNCOPE AND COLLAPSE (2) ESRD (end stage renal disease) Code(s): N18.6 - END STAGE RENAL DISEASE Assessment/Plan Impression 1. ESRD 2. syncope 3. DM 4. HLD 5. HTN 6. anemia 7. anxiety 8. epilepsy Plan - pt had HD today - next HD on Monday - follow up ct head - renal diet - epogen for anemia - 4 hrs, 2 k bath, epogen 1000, hectorol 3.5, 15 gauge 1 1/4 length - renal diabetic diet
--- NOTE | 2018-09-03 22:39 | PN ---
Teaching Attending Note Name of Resident: Marcie Robin ATTENDING PHYSICIAN STATEMENT I saw and evaluated the patient. I reviewed the resident's note and discussed the case with the resident. I agree with the resident's findings and plan as documented. SUBJECTIVE: Patient is a 52 year old woman with a PMH of ESRD on hemodialysis (M/W/F), Parkinson's Disease with psychosis, Anxiety, Major depression, TIA, Osteomyelitis, HLD, Insulin-treated DM and Seizure disorder who was brought by EMS following a syncopal episode at dialysis today. Patient states the last thing she remembers is having her glucose checked at dialysis and then being poked and told to wake up. Denies any pre-syncopal chest pain, shortness of breath, lightheadedness, palpitations. Patient and patient's aide at bedside state patient is at baseline which includes slowed speech and using a wheelchair to mobilize. She dialyzed at a new facility today. As per patient's paperwork from [facility], patient had 2 hours and 50 minutes of diaylsis today with 2.4 kg removed, normally she has 2-3 kg removed over 3 hours. Patient has multiple drug allergies and was recently discharged form NH/Rehab facility. Says she is scheduled for PT by 11 am tomorrow. Has lives alone and has a 24 hour Home Health Aide. OBJECTIVE: Alert Vital Signs Period Temp Pulse Resp BP Sys/[place] Pulse Ox Last 24 Hr 97.7 F 77 16 129/73 100 HEENT: No Jaundice, eye redness or discharge, PERRLA, EOMI. Normocephalic, atraumatic. External ears are normal and hearing is grossly intact. No nasal discharge. Neck: Supple, nontender. No palpable adenopathy or thyromegaly. No JVD Chest: Good effort. Clear to auscultation and percussion. Heart: Regular. No S3, rub or murmur Abdomen: Not distended, soft, nontender and no HSM. No rebound or guarding. Normal bowel sounds. Ext: Peripheral pulses intact. No leg edema. Left 4th and 5th and right 2nd toe amputations. RUE AV fistula with thrill and bruit. Skin: Warm and dry. No petechiae, rash or ecchymosis. Neuro: Alert. Oriented x3. Slow speech. CN 2-12 grossly intact. Sensation grossly intact in all four extremities and DTR are symmetric. Psych: Appropriate mood and affect. Good insight. Home Medications Medication Instructions Recorded Albuterol 0.083% Nebulizer Bonita 1 amp NEB DAILY 05/02/18 [Ventolin 0.083% Nebulizer Soln -] Amlodipine Besylate [Norvasc -] 10 mg PO DAILY 05/02/18 Aspirin [Aspirin EC] 325 mg PO DAILY 05/02/18 Atorvastatin Ca [Lipitor] 80 mg PO HS 05/02/18 Bupropion HCl [Wellbutrin Xl] 300 mg PO HS 05/02/18 Carvedilol [Coreg -] 25 mg PO BID 05/02/18 Clopidogrel Bisulfate [Plavix] 75 mg PO DAILY 05/02/18 Folic Acid/Vit B Complex and C 5 mg PO DAILY 05/02/18 [Folbee Plus Tablet] Furosemide [Lasix] 40 mg PO BID 05/02/18 Linaclotide [Linzess] 145 mcg PO DAILY 05/02/18 Sennosides [Senna] 17.2 mg GT HS 05/02/18 Sevelamer Carbonate [Renvela -] 800 mg PO TID 05/02/18 Topiramate [Topiramate ER] 50 mg PO BID 05/02/18 clonazePAM [Klonopin -] 0.5 mg PO BID 05/02/18 levETIRAcetam [Keppra -] 500 mg PO BID 05/02/18 Albuterol 2.5/Ipratropium 0.5 1 amp NEB Q6H PRN amp 05/22/18 [Duoneb -] Cefpodoxime Proxetil [Vantin -] 200 mg PO Q48H #2 tablet 05/22/18 Docusate Sodium [Colace -] 300 mg PO HS capsule 05/22/18 Pimavanserin Tartrate [Nuplazid] 34 mg PO DAILY #30 capsule 05/22/18 Pimavanserin Tartrate [Nuplazid] 34 mg PO DAILY #30 capsule 05/22/18 Polyethylene Glycol 3350 [Miralax 17 gm PO BID bottle 05/22/18 119 gm Btl -] Quetiapine Fumarate [Seroquel -] 50 mg PO HS tablet 05/22/18 Quetiapine Fumarate [Seroquel -] 50 mg PO HS #30 tablet 05/22/18 Abnormal Lab Results 09/03/18 09/03/18 09/03/18 18:45 18:45 18:45 RBC 2.60 L Hgb 8.5 L Hct 26.8 L MCV 103.0 H MCHC 31.8 L Plt Count 133 L Chloride 108 H BUN 30.3 H Creatinine 7.0 H AST 13 L Ammonia 46.20 H B-Natriuretic Peptide 1148.6 H ASSESSMENT AND PLAN: 1. Syncope/ESRD - No acute pathology on noncontrast head CT or CXR. EKG shows NSR with no acute ST-T wave changes. Syncope likely related to her hemodialysis treatment. Patient is on multiple BP lowering drugs and when combined with rapid dialysis fluid removal may be causing recurrent syncope due to intradialytic hypotension. Will need longer, slow hemodialysis to remove fluid gently and then simultaneously taper off some antihypertensive medications. 2. Polypharmacy - Needs a review of all her medications with her PCP to discontinue those that are not absolutely essential. Unclear if she is still on Lasix and ?Coreg. ECHO from 05/21/18 showed EF of 65-70% with grade 2 diastolic dysfunction. 3. DM Will hold any home diabetes drugs and implement sliding scale insulin regimen. Does not have any medications for DM listed. Provide comprehensive diabetes care with patient teaching and counseling about the importance of adherence to prescribed diabetes regimen, euglycemia, eye care and foot care. 4. Anemia - Likely mostly anemia due to ESRD. Macrocytosis may be artifactual, but will exclude megalobastosis and surreptitious alcohol use. Will B12 and folate levels; PTH and phosphate; do serial stool guaiacs and iron studies. Ensure adequate iron stores to optimize response to Epogen. 5. Obesity Counseled on the risks associated with obesity. Will provide patient all the necessary assistance, counseling and positive reinforcement to facilitate weight loss. Consult debarker operator. 6. Hypertension - Restart suitable outpatient antihypertensive drugs when clinically appropriate. Revise regimen to ensure good BP control. Nonpharmacologic measures to control hypertension like weight loss, salt restriction and exercise discussed. 7. DVT prophylaxis - Heparin 5000u sq tid. 8. Advance directives - Full code
--- NOTE | 2018-09-04 01:09 | HP ---
CHIEF COMPLAINT: Syncope PCP: Dr. Emani Rosales HISTORY OF PRESENT ILLNESS: Pt. is a 52 y.o. F w/ PMHx. of ESRD (HD on MWF), CVA (residual R. side weakness), NIDDM, Epilepsy/Seizure Disorder, Iron Deficiency Anemia, HLD, Asthma, and multiple syncopal episodes during HD presents to the ED from [facility] for syncopal episode during Dialysis. Pt. completed 2 hours and 50 min with 2.4 L removed when Pt. had syncopal episode. Pt. states she does not remember what happened through out the encounter and states she only rmember her blood sugar being checked before being sent to the hospital. Pt. states her dry weight is 92 kg and that when she syncopized she was at 91.5 kg. She states that " they took off too much fluid," and that this has happened multiple times in the past. Pt. endorses still making a good amount of urine. Pt. denies any symptoms currently and is adamant about going home because she does not want to miss her physical therapy. Pt. was recently discharged home from a Nursing facility and has 24 Hr[employer]. Per chart documentation Pt. is at her baseline mental status. ER course was notable for: (1)EKG, Head CT, BMP (2) (3) Recent Travel: No PAST MEDICAL HISTORY: As Above PAST SURGICAL HISTORY: AV Fistula/graft in RUE, , Amputation of 2 digit on right foot and digits 4-5 on left foot. Social History: Smoking: Denies Alcohol: Denies Drugs: Denies Family History: Did not ask Allergies amoxicillin [Amoxicillin] Allergy (Severe, Verified 09/03/18 14:25) Itching hydrocodone bitartrate [From Vicodin] Allergy (Severe, Verified 09/03/18 14:25) Hives,ITCHING morphine Allergy (Severe, Verified 09/03/18 14:25) Itching neomycin [Neomycin] Allergy (Severe, Verified 09/03/18 14:25) Swelling oxycodone HCl [From Percocet] Allergy (Severe, Verified 09/03/18 14:25) Itching,HIVES rofecoxib [From Vioxx] Allergy (Severe, Verified 09/03/18 14:25) Hives Sulfa (Sulfonamide Antibiotics) Allergy (Severe, Verified 09/03/18 14:25) sclera reddened,ITCHING tramadol Allergy (Severe, Verified 09/03/18 14:25) Vomiting tomato Allergy (Verified 09/03/18 14:25) grapefruit [Grapefruit] Adverse Reaction (Severe, Verified 09/03/18 14:25) CAN'T TAKE BECAUSE OF MEDICATIONS vancomycin Adverse Reaction (Mild, Verified 09/03/18 14:25) red man syndrome Heparin Analogues [Heparin Agents] Adverse Reaction (Unknown, Verified 09/03/18 14:25) OF 09/14/14, PT IS ABLE TO TAKE WITH MONITORING OF SYMPTOMS flu shot Allergy (Severe, Uncoded 09/03/18 14:25) GETS FLU SYMPTOMS grape juice Adverse Reaction (Severe, Uncoded 09/03/18 14:25) HOME MEDICATIONS: Home Medications Medication Instructions Recorded Albuterol 0.083% Nebulizer Bonita 1 amp NEB DAILY 05/02/18 [Ventolin 0.083% Nebulizer Soln -] Amlodipine Besylate [Norvasc -] 10 mg PO DAILY 05/02/18 Aspirin [Aspirin EC] 325 mg PO DAILY 05/02/18 Atorvastatin Ca [Lipitor] 80 mg PO HS 05/02/18 Bupropion HCl [Wellbutrin Xl] 300 mg PO HS 05/02/18 Carvedilol [Coreg -] 25 mg PO BID 05/02/18 Clopidogrel Bisulfate [Plavix] 75 mg PO DAILY 05/02/18 Folic Acid/Vit B Complex and C 5 mg PO DAILY 05/02/18 [Folbee Plus Tablet] Furosemide [Lasix] 40 mg PO BID 05/02/18 Linaclotide [Linzess] 145 mcg PO DAILY 05/02/18 Sennosides [Senna] 17.2 mg GT HS 05/02/18 Sevelamer Carbonate [Renvela -] 800 mg PO TID 05/02/18 Topiramate [Topiramate ER] 50 mg PO BID 05/02/18 clonazePAM [Klonopin -] 0.5 mg PO BID 05/02/18 levETIRAcetam [Keppra -] 500 mg PO BID 05/02/18 Albuterol 2.5/Ipratropium 0.5 1 amp NEB Q6H PRN amp 05/22/18 [Duoneb -] Cefpodoxime Proxetil [Vantin -] 200 mg PO Q48H #2 tablet 05/22/18 Docusate Sodium [Colace -] 300 mg PO HS capsule 05/22/18 Pimavanserin Tartrate [Nuplazid] 34 mg PO DAILY #30 capsule 05/22/18 Pimavanserin Tartrate [Nuplazid] 34 mg PO DAILY #30 capsule 05/22/18 Polyethylene Glycol 3350 [Miralax 17 gm PO BID bottle 05/22/18 119 gm Btl -] Quetiapine Fumarate [Seroquel -] 50 mg PO HS tablet 05/22/18 Quetiapine Fumarate [Seroquel -] 50 mg PO HS #30 tablet 05/22/18 REVIEW OF SYSTEMS As above PHYSICAL EXAMINATION Vital Signs - 24 hr 09/03/18 14:22 Temperature 97.7 F Pulse Rate 77 Respiratory 16 Rate Blood Pressure 129/73 O2 Sat by Pulse 100 Oximetry (%) GENERAL: Awake, alert, and fully oriented, in mild psychological distress. HEAD: Normal with no signs of trauma. EYES: Extraocular movements intact, sclera anicteric, conjunctiva clear. EARS, NOSE, THROAT: Ears normal, nares patent, oropharynx clear without exudates. Moist mucous membranes. NECK: Normal range of motion, supple without lymphadenopathy, no carotid bruit, JVD, or masses. LUNGS: Breath sounds equal, clear to auscultation bilaterally. No wheezes, and no crackles. No accessory muscle use. HEART: Regular rate and rhythm, normal S1 and S2 without murmur ABDOMEN: Soft, nontender, not distended, normoactive bowel sounds, no guarding, no rebound, no masses. MUSCULOSKELETAL: Normal range of motion at all joints. B/l Toe amputations. No CVA tenderness. UPPER EXTREMITIES: 2+ pulses, warm, well-perfused. No cyanosis. No clubbing. No peripheral edema. RUE 1/5 muscle strength. LUE 2/5 muscle strength LOWER EXTREMITIES: 1+ dorsal pedal pulses, warm, well-perfused. No calf tenderness. No peripheral edema. Pt. able to lift both legs off the bed for 5 seconds without drift, though the RLE is with more difficulty. RUE numbness. NEUROLOGICAL: Slow labored, expressive Dysphasic speech. Gait not assessed. Pt. ab PSYCHIATRIC: Cooperative. Good eye contact. Appropriate mood and affect. SKIN: Warm, dry, normal turgor Laboratory Results - last 24 hr 09/03/18 09/03/18 09/03/18 18:45 18:45 18:45 WBC 5.5 RBC 2.60 L Hgb 8.5 L Hct 26.8 L MCV 103.0 H MCH 32.7 D MCHC 31.8 L RDW 13.9 D Plt Count 133 L MPV 10.4 D Absolute Neuts (auto) 3.8 Neutrophils % 68.2 Lymphocytes % 21.1 D Monocytes % 6.2 Eosinophils % 3.9 Basophils % 0.6 Nucleated RBC % 0 PT with INR INR PTT (Actin FS) Sodium 142 Potassium 4.2 Chloride 108 H Carbon Dioxide 26 Anion Gap 8 BUN 30.3 H Creatinine 7.0 H Est GFR (CKD-EPI)AfAm 7.19 Est GFR (CKD-EPI)NonAf 6.20 Random Glucose 97 Lactic Acid Calcium 9.3 Total Bilirubin 0.3 AST 13 L ALT 23 Alkaline Phosphatase 96 Ammonia 46.20 H Creatine Kinase 90 Troponin I 0.03 B-Natriuretic Peptide 1148.6 H Total Protein 7.0 Albumin 3.7 TSH 09/03/18 09/03/18 09/03/18 18:45 18:45 19:00 WBC RBC Hgb Hct MCV MCH MCHC RDW Plt Count MPV Absolute Neuts (auto) Neutrophils % Lymphocytes % Monocytes % Eosinophils % Basophils % Nucleated RBC % PT with INR 11.40 INR 0.97 PTT (Actin FS) 33.1 Sodium Potassium Chloride Carbon Dioxide Anion Gap BUN Creatinine Est GFR (CKD-EPI)AfAm Est GFR (CKD-EPI)NonAf Random Glucose Lactic Acid 1.0 Calcium Total Bilirubin AST ALT Alkaline Phosphatase Ammonia Creatine Kinase Troponin I B-Natriuretic Peptide Total Protein Albumin TSH 0.85 ASSESSMENT/PLAN: Pt. is a 52 y.o. F w/ PMHx. of ESRD (HD on MWF), CVA(residual R. side weakness) , NIDDM, Epilepsy/Seizure Disorder, Anemia, HLD, Asthma, and multiple syncopal episodes during HD presents to the ED from [facility] for syncopal episode during Dialysis. #Syncope during Dialysis for ESRD EKG shows HR: 79, Q-waves in III, and V2 -however with artifact; f/u Rpt. EKG Echo (05/21/18): EF-65-70%, Grade II Diastolic Dysfunction Head CT Negative for acute pathology Trop Negative x 1, f/u Rpt. Likely due to Pt. having too much fluid removed too quickly. Pt. states that she was at a new [facility] today, however Pt. has had this happen in the past at her usual HD center. Would recommend longer HD session at a slower rate, would also recommend titrating her medications down especially before Dialysis sessions. c/w Plavix and ASA for AV fistula Nephrology consult (Dr. Sharma) appreciated. #Anemia likely 2/2 to CKD Start Epogen 1000 per Nephrology f/u Iron studies Per Uptodate guidelines for Pt.s on HD with Low hemoglobin( less than 10), less than 30% transferrin saturation, and ferritin less than 500. Pt. should have loading dose of IV iron prior to starting an erythropoeitin stimulating agent ( Epogen). However Pt.'s with History of stroke and have a transferrin saturation greater than 30% should NOT be started on LUCA due to increased risk of stroke/ adverse effects(malignancy, cardiovascular events and increased mortality). Optimal goal for HD patients with anemia is a Hgb of 10-11.5. Transferrin saturation = (serum iron level x 100)/TIBC Last recorded values for Iron workup are from 2011 #Seizure disorder c/w Keppra and Clonazepam #Psychosis 2/2 Parkinson's Disease c/w Primvanserin, Seroquel and Buproprion #HLD c/w Atorvastatin #HTN c/w Lasix 40mg --> would consider discontinuing c/w Coreg--> would consider decreasing c/w Norvasc--> would consider decreasing #FEN no IVF, encourage PO intake monitor electrolyte and replete as needed Renal, Diabetic, Na restricted Diet #DVT Ppx. SCD, TEDs No AC given allergy to Heparin products c/w ASA and Plavix Visit type - Emergency Visit Emergency Visit: Yes ED Registration Date: 09/03/18 Care time: The patient presented to the Emergency Department on the above date and was hospitalized for further evaluation of their emergent condition. - New Patient This patient is new to me today: Yes Date on this admission: 09/04/18 - Critical Care Critical Care patient: No
[2018-09-04] MEDS ORDERED: ALBUTEROL SO4 2.5/IPRATROPIUM 0.5 INH SOL 3 ML VIAL.NEB. NEB PRN (11:21)
[2018-09-04] MEDS ORDERED: ALBUTEROL SO4 0.083% IH SOL 2.5 MG/3 ML VIAL.NEB. NEB PRN (11:49)
[2018-09-04] MEDS: amLODIPine BESYLATE 10 MG TABLET (FP) PO SCH (11:58)
[2018-09-04] MEDS ORDERED: CARVEDILOL 12.5 MG TABLET (FP) ONE (11:58)
[2018-09-04] MEDS ORDERED: FUROSEMIDE 40 MG TABLET (FP) ONE ×2 (11:58→16:48)
[2018-09-04] MEDS: CARVEDILOL 25 MG TABLET (FP) PO SCH ×2 (11:58→21:18)
[2018-09-04] MEDS ORDERED: amLODIPine BESYLATE 5 MG TABLET (FP) ONE (11:58)
[2018-09-04] MEDS: INSULIN SLIDING SCALE (NOVOLOG) 1 VIAL SQ SCH ×2 (12:08→21:23)
--- NOTE | 2018-09-04 12:16 | CON.CARD ---
Consult Consult Specialty:: Cardiology Reason for Consultation:: near syncope - History of Present Illness Chief Complaint: lost consciousness at HD History of Present Illness: 52 year old woman with pmh HTN, DMII, ESRD on HD, multiple prior CVA's, known chronic occlusion of BHAVIN, seizure disorder, multiple prior episodes of syncope during HD which she states was due to seizures, admitted after having a syncopal episode during HD. pt seen and examined today with [facility]. pt awake, alert, oriented. she states that she has been in rehab up until recently and it was discovered while in rehab that she had multiple seizure episodes during HD when they took too much volume off too quickly. this was identified and she was treated by Dr. Faye and adjustments were made to her HD sessions and her syncope/seizure episodes stopped. She was then discharged from rehab and started her first HD session at the outpatient center and she feels the prior issue was not communicated to the new center. She and her mother state this episode was the same as the prior episodes when she was told she has seizures. no chest pain, sob, palpitations. - History Source History Provided By: Patient, Family Member - Past Medical History MANAGER BENEFIT: Yes: CVA Cardio/Vascular: Yes: HTN, Hyperlipdemia, Other (Peripheral vascular disease) Pulmonary: Yes: Asthma, Sleep Apnea Gastrointestinal: Yes: Constipation Renal/: Yes: Renal Failure, Hemodialysis ...LMP: 05/18/18 Rheumatology: Yes: Other (See HPI) Endocrine: Yes: Diabetes Mellitus - Past Surgical History Past Surgical History: Yes: Amputation, AV Fistula/Graft, - Alcohol/Substance Use Hx Alcohol Use: No - Smoking History Smoking history: Unknown if ever smoked Have you smoked in the past 12 months: No Aproximately how many cigarettes per day: 0 - Social History Usual Living Arrangement: Retirement ADL: Independent History of Recent Travel: No Home Medications - Allergies Allergies/Adverse Reactions: Allergies Allergy/AdvReac Type Severity Reaction Status Date / Time amoxicillin [Amoxicillin] Allergy Severe Itching Verified 09/03/18 14:25 hydrocodone bitartrate Allergy Severe Hives,ITCHI Verified 09/03/18 14:25 [From Vicodin] NG morphine Allergy Severe Itching Verified 09/03/18 14:25 neomycin [Neomycin] Allergy Severe Swelling Verified 09/03/18 14:25 oxycodone HCl [From Percocet] Allergy Severe Itching,HIV Verified 09/03/18 14:25 ES rofecoxib [From Vioxx] Allergy Severe Hives Verified 09/03/18 14:25 Sulfa (Sulfonamide Allergy Severe sclera Verified 09/03/18 14:25 Antibiotics) reddened,ITCHING tramadol Allergy Severe Vomiting Verified 09/03/18 14:25 tomato Allergy Verified 09/03/18 14:25 grapefruit [Grapefruit] AdvReac Severe CAN'T TAKE Verified 09/03/18 14:25 BECAUSE OF MEDICATIONS vancomycin AdvReac Mild red man Verified 09/03/18 14:25 syndrome Heparin Analogues AdvReac Unknown Verified 09/03/18 14:25 [Heparin Agents] flu shot Allergy Severe GETS FLU Uncoded 09/03/18 14:25 SYMPTOMS grape juice AdvReac Severe Uncoded 09/03/18 14:25 - Home Medications Home Medications: Ambulatory Orders Albuterol 0.083% Nebulizer Bonita [Ventolin 0.083% Nebulizer Soln -] 1 amp NEB DAILY 05/02/18 Amlodipine Besylate [Norvasc -] 10 mg PO DAILY 05/02/18 Aspirin [Aspirin EC] 325 mg PO DAILY 05/02/18 Atorvastatin Ca [Lipitor] 80 mg PO HS 05/02/18 Bupropion HCl [Wellbutrin Xl] 300 mg PO HS 05/02/18 Carvedilol [Coreg -] 25 mg PO BID 05/02/18 Clopidogrel Bisulfate [Plavix] 75 mg PO DAILY 05/02/18 Folic Acid/Vit B Complex and C [Folbee Plus Tablet] 5 mg PO DAILY 05/02/18 Furosemide [Lasix] 40 mg PO BID 05/02/18 Linaclotide [Linzess] 145 mcg PO DAILY 05/02/18 Sennosides [Senna] 17.2 mg GT HS 05/02/18 Sevelamer Carbonate [Renvela -] 800 mg PO TID 05/02/18 Topiramate [Topiramate ER] 50 mg PO BID 05/02/18 clonazePAM [Klonopin -] 0.5 mg PO BID 05/02/18 levETIRAcetam [Keppra -] 500 mg PO BID 05/02/18 Albuterol 2.5/Ipratropium 0.5 [Duoneb -] 1 amp NEB Q6H PRN amp 05/22/18 Cefpodoxime Proxetil [Vantin -] 200 mg PO Q48H #2 tablet 05/22/18 Docusate Sodium [Colace -] 300 mg PO HS capsule 05/22/18 Pimavanserin Tartrate [Nuplazid] 34 mg PO DAILY #30 capsule 05/22/18 Pimavanserin Tartrate [Nuplazid] 34 mg PO DAILY #30 capsule 05/22/18 Polyethylene Glycol 3350 [Miralax 119 gm Btl -] 17 gm PO BID bottle 05/22/18 Quetiapine Fumarate [Seroquel -] 50 mg PO HS tablet 05/22/18 Quetiapine Fumarate [Seroquel -] 50 mg PO HS #30 tablet 05/22/18 Family Disease History - Family Disease History Family History: Denies Review of Systems - Review of Systems Constitutional: reports: Weakness. denies: No Symptoms, Chills, Diaphoresis, Fever, Lethargy, Loss of Appetite, Malaise, Night Sweats, Unintentional Wgt. Loss, Other Eyes: denies: No Symptoms, Blind Spots, Blurred Vision, Double Vision, Eye Pain , Floaters, Photophobia, Recent Change in Vision, Other HENT: denies: No Symptoms, Difficult Swallowing, Ear Discharge, Ear Pain, Epistaxis, Gingival Bleeding, Hearing Loss, Mouth Swelling, Nasal Congestion, Ocular Prosthesis, Throat Pain, Toothache, Ringing in Ears, Other Neck: denies: No Symptoms, Decreased ROM, Lumps, Pain on Movement, Stiffness, Swollen Glands, Tenderness, Other Cardiovascular: denies: No Symptoms, Chest Pain, Edema, Palpitations, Shortness of Breath, Other Respiratory: denies: No Symptoms, Cough, Exercise Intolerance, Hemoptysis, Orthopnea, PND, Snoring, SOB, SOB on Exertion, Wheezing, Other Gastrointestinal: denies: No Symptoms, Abdominal Pain, Bloating, Constipation, Diarrhea, Dysphagia, Indigestion, Melena, Nausea, Rectal Bleeding, Vomiting, Vomiting Blood, Other Genitourinary: denies: No Symptoms, Burning, Discharge, Dysuria, Flank Pain, Frequency, Hematuria, Incontinence, Lesions, Menses, Pain, Testicular Mass, Testicular Pain, Testicular Swelling, Urgency, Vaginal Bleeding, Other Breasts: denies: No Symptoms Reported, See HPI, Breast Implants, Discharge from Nipple, Lumps, Pain, Skin Changes, Other Musculoskeletal: reports: Muscle Weakness. denies: No Symptoms, Back Pain, Crepitus, Decreased ROM, Extremity Pain, Joint Pain, Joint Swelling, Muscle Pain , Muscle Cramps, Other Integumentary: denies: No Symptoms, Blister, Bruising, Change in Color, Eczema, Erythema, Incision, Lesions, Lump, Pallor, Pruritis, Rash, Wound, Other Neurological: reports: Change in LOC, Pre-Existing Deficit, Seizure, Syncope. denies: No Symptoms, Change in Speech, Confusion, Dizziness, Headache, Incoordination, Numbness, Parasthesia, Tremors, Unsteady Gait, Weakness, Other Endocrine: denies: No Symptoms, Excessive Sweating, Flushing, Increased Hunger, Increased Thirst, Intolerance to Cold, Intolerance to Heat, Unexplained Weight Gain, Unexplained Weight Loss, Other Hematology/Lymphatic: denies: No Symptoms, Easily Bruised, Excessive Bleeding, Swollen Glands, Other Psychiatric: denies: No Symptoms, Altered Sleep Pattern, Anxiety, Depression, Hallucinations, Panic, Paranoia, Suicidal, Other - Risk Factors Known Risk Factors: Yes: Hypertension, Physical Inactivity, Prior NV /Emb Stroke Vital Signs: Vital Signs Temperature 97.7 F 09/04/18 00:06 Pulse Rate 84 09/04/18 00:06 Respiratory Rate 16 09/03/18 14:22 Blood Pressure 144/76 09/04/18 00:06 O2 Sat by Pulse Oximetry (%) 99 09/04/18 00:06 Constitutional: Yes: No Distress Eyes: Yes: Conjunctiva Clear, EOM Intact HENT: Yes: Atraumatic, Normocephalic Neck: Yes: Trachea Midline Respiratory: Yes: Regular, CTA Bilaterally. No: Rales, Rhonchi, SOB, Wheezes Gastrointestinal: Yes: Normal Bowel Sounds, Soft. No: Distention, Tenderness Cardiovascular: Yes: Regular Rate and Rhythm. No: Bradycardia, Tachycardia, Pulse Irregular, Gallop, Rub, Varicosities JVD: No Carotid Bruit: No PMI: Non-Displaced Heart Sounds: Yes: S1, S2. No: Split S2, S3, S4, Clicks, Gallop, Rub, Bruit Murmur: Yes: Systolic Murmur Extremities: Yes: WNL Edema: No Peripheral Pulses WNL: Yes Neurological: Yes: Alert, Oriented Psychiatric: Yes: Alert, Oriented - Other Data Labs, Other Data: CBC, BMP 09/03/18 18:45 09/03/18 18:45 INR, PTT INR 0.97 (0.83-1.09) 09/03/18 19:00 Troponin, BNP 09/03/18 18:45 Troponin I 0.03 B-Natriuretic Peptide 1148.6 H Troponin, BNP 09/03/18 18:45 Troponin I 0.03 B-Natriuretic Peptide 1148.6 H no ischemia or sig arrhythmias seen Echo: Report Reviewed Imaging - Results Chest X-ray: Report Reviewed, Image Reviewed EKG: Report Reviewed, Image Reviewed Other: Report Reviewed, Image Reviewed Assessment/Plan 52 year old woman with pmh HTN, DMII, ESRD on HD, multiple prior CVA's, known chronic occlusion of BHAVIN, seizure disorder, multiple prior episodes of syncope during HD which she states was due to seizures, admitted after having a syncopal episode during HD. pt awake, alert, oriented. she states that she has been in rehab up until recently and it was discovered while in rehab that she had multiple seizure episodes during HD when they took too much volume off too quickly. this was identified and she was treated by Dr. Faye and adjustments were made to her HD sessions and her syncope/seizure episodes stopped. She was then discharged from rehab and started her first HD session at the outpatient center and she feels the prior issue was not communicated to the new center. She and her mother state this episode was the same as the prior episodes when she was told she has seizures. no chest pain, sob, palpitations. Syncope-recurrent syncope episode during HD consistent with her prior episodes which have been attributed to seizures -no signs of cardiac source of syncope -she is followed by Dr. Faye -neuro work up and treatment as per PMD -she does not require additional inpatient cardiac work up at this time -ok to dc tele -outpatient fup Please call with any additional questions.
[2018-09-04] MEDS: SEVELAMER CARBONATE 800 MG TAB (FP) PO SCH ×2 (12:40→17:40)
--- NOTE | 2018-09-04 12:47 | EKG ---
Test Reason : Blood Pressure : / mmHG Vent. Rate : 079 BPM Atrial Rate : 340 BPM P-R Int : 000 ms QRS Dur : 092 ms QT Int : 406 ms P-R-T Axes : 031 -08 042 degrees QTc Int : 465 ms NORMAL SINUS RHYTHM LOW VOLTAGE QRS SEPTAL INFARCT (CITED ON OR BEFORE 18-MAY-2018) ABNORMAL ECG BASELINE ARTIFACT Confirmed by Jesse Valdez MD ([id number]) on 09/04/2018 12:47:12 PM Referred By: Confirmed By:Jesse Valdez MD
[2018-09-04] MEDS ORDERED: SODIUM CHLORIDE 250 ML IV PRN (12:53)
--- NOTE | 2018-09-04 12:53 | PN ---
Progress Note, Physician History of Present Illness: Pt seen and examined at bedside. She is awake and alert. She denies shortness of breath. - Current Medication List Current Medications: Active Medications Albuterol Sulfate (Ventolin 0.083% Nebulizer Soln -) 1 amp NEB Q6H PRN PRN Reason: SHORTNESS OF BREATH Albuterol/Ipratropium (Duoneb -) 1 amp NEB Q6H PRN PRN Reason: SHORTNESS OF BREATH Amlodipine Besylate (Norvasc -) 10 mg PO DAILY [facility] Last Admin: 09/04/18 11:58 Dose: 10 mg Aspirin (Ecotrin -) 325 mg PO DAILY [facility] Atorvastatin Calcium (Lipitor -) 80 mg PO HS [facility] Bupropion HCl (Wellbutrin Xl -) 300 mg PO DAILY@1900 [facility] Carvedilol (Coreg -) 25 mg PO BID [facility] Last Admin: 09/04/18 11:58 Dose: 25 mg Clonazepam (Klonopin -) 0.5 mg PO BID [facility] Clopidogrel Bisulfate (Plavix -) 75 mg PO DAILY [facility] Docusate Sodium (Colace -) 300 mg PO HS [facility] Folic Acid (Folic Acid -) 1 mg PO DAILY [facility] Furosemide (Lasix -) 40 mg PO BIDLASIX [facility] Insulin Aspart (Novolog Vial Sliding Scale -) 1 vial SQ ACHS [facility]; Protocol Last Admin: 09/04/18 12:08 Dose: Not Given Levetiracetam (Keppra -) 500 mg PO BID [facility] Multivit/Ca Carb/B Cmplx/FA/Prenat (Nephro-Robb -) 1 tablet PO DAILY [facility] Non-Formulary Medication (Linaclotide [Linzess]) 145 mcg PO DAILY [facility] Non-Formulary Medication (Pimavanserin Tartrate [Nuplazid]) 34 mg PO DAILY [facility] Non-Formulary Medication (Topiramate [Topiramate Er]) 50 mg PO BID [facility] Polyethylene Glycol (Miralax (For Daily Use) -) 17 gm PO BID [facility] Quetiapine Fumarate (Seroquel -) 50 mg PO HS [facility] Senna (Senna -) 1 tab PO HS [facility] Sevelamer Carbonate (Renvela -) 800 mg PO TIDCM [facility] - Objective Vital Signs: Vital Signs Temperature 97.7 F 09/04/18 00:06 Pulse Rate 84 09/04/18 00:06 Respiratory Rate 16 06/10/19 14:22 Blood Pressure 144/76 09/04/18 00:06 O2 Sat by Pulse Oximetry (%) 99 09/04/18 00:06 Constitutional: Yes: Calm Eyes: Yes: Conjunctiva Clear HENT: Yes: Atraumatic Neck: Yes: Supple Cardiovascular: Yes: S1, S2 Respiratory: Yes: CTA Bilaterally Gastrointestinal: Yes: Soft Genitourinary: Yes: WNL Musculoskeletal: Yes: Muscle Weakness Edema: No Neurological: Yes: Oriented, Pre-Existing Deficit Psychiatric: Yes: Oriented Labs: CBC, BMP 09/03/18 18:45 09/03/18 18:45 INR, PTT INR 0.97 (0.83-1.09) 09/03/18 19:00 Problem List - Problems (1) Syncope Code(s): R55 - SYNCOPE AND COLLAPSE (2) ESRD (end stage renal disease) Code(s): N18.6 - END STAGE RENAL DISEASE Assessment/Plan Current Medications Generic Name Dose Route Start Last Admin Trade Name Freq PRN Reason Stop Dose Admin Albuterol Sulfate 1 amp 09/04/18 11:49 Ventolin 0.083% Nebulizer Soln - NEB Q6H PRN SHORTNESS OF BREATH Albuterol/Ipratropium 1 amp 09/04/18 11:21 Duoneb - NEB Q6H PRN SHORTNESS OF BREATH Amlodipine Besylate 10 mg 09/04/18 12:00 09/04/18 11:58 Norvasc - PO 10 mg DAILY [facility] Administration Aspirin 325 mg 09/05/18 10:00 Ecotrin - PO DAILY [facility] Atorvastatin Calcium 80 mg 09/04/18 22:00 Lipitor - PO HS [facility] Bupropion HCl 300 mg 09/04/18 19:00 Wellbutrin Xl - PO DAILY@1900 [facility] Carvedilol 25 mg 09/04/18 12:00 09/04/18 11:58 Coreg - PO 25 mg BID [facility] Administration Clonazepam 0.5 mg 09/04/18 22:00 Klonopin - PO BID [facility] Clopidogrel Bisulfate 75 mg 09/05/18 10:00 Plavix - PO DAILY [facility] Docusate Sodium 300 mg 09/04/18 22:00 Colace - PO HS [facility] Folic Acid 1 mg 09/05/18 10:00 Folic Acid - PO DAILY [facility] Furosemide 40 mg 09/04/18 14:00 Lasix - PO BIDLASIX [facility] Insulin Aspart 1 vial 09/04/18 07:00 09/04/18 12:08 Novolog Vial Sliding Scale - SQ Not Given ACHS [facility] Protocol Levetiracetam 500 mg 09/04/18 22:00 Keppra - PO BID [facility] Multivit/Ca Carb/B Cmplx/FA/Prenat 1 tablet 09/05/18 10:00 Nephro-Robb - PO DAILY [facility] Non-Formulary Medication 145 mcg 09/05/18 10:00 Linaclotide [Linzess] PO DAILY [facility] Non-Formulary Medication 34 mg 09/05/18 10:00 Pimavanserin Tartrate [Nuplazid] PO DAILY [facility] Non-Formulary Medication 50 mg 09/04/18 22:00 Topiramate [Topiramate Er] PO BID [facility] Polyethylene Glycol 17 gm 09/04/18 22:00 Miralax (For Daily Use) - PO BID [facility] Quetiapine Fumarate 50 mg 09/04/18 22:00 Seroquel - PO HS [facility] Senna 1 tab 09/04/18 22:00 Senna - PO HS [facility] Sevelamer Carbonate 800 mg 09/04/18 12:00 Renvela - PO TIDCM [facility] Impression 1. ESRD 2. syncope 3. DM 4. HLD 5. HTN 6. anemia 7. anxiety 8. epilepsy Plan - pt had HD today - next HD on Monday - follow up ct head - renal diet - epogen for anemia - 3 1/2 hrs, 2 k bath, 15 gauge 1 1/4 length abf 400 - renal diabetic diet
[2018-09-04] MEDS: FUROSEMIDE 40 MG TABLET (FP) PO SCH (16:48)
--- NOTE | 2018-09-04 16:57 | PN ---
Progress Note, Physician Chief Complaint: ESRD Syncope Anemia Seizure Disorder History of Present Illness: Previous notes and events reviewed awake and alert NAD denies complaints of dizziness, chest pain, SOB - Current Medication List Current Medications: Active Medications Albuterol Sulfate (Ventolin 0.083% Nebulizer Soln -) 1 amp NEB Q6H PRN PRN Reason: SHORTNESS OF BREATH Albuterol/Ipratropium (Duoneb -) 1 amp NEB Q6H PRN PRN Reason: SHORTNESS OF BREATH Amlodipine Besylate (Norvasc -) 10 mg PO DAILY [facility] Last Admin: 09/04/18 11:58 Dose: 10 mg Aspirin (Ecotrin -) 325 mg PO DAILY [facility] Atorvastatin Calcium (Lipitor -) 80 mg PO HS [facility] Bupropion HCl (Wellbutrin Xl -) 300 mg PO DAILY@1900 [facility] Carvedilol (Coreg -) 25 mg PO BID [facility] Last Admin: 09/04/18 11:58 Dose: 25 mg Clonazepam (Klonopin -) 0.5 mg PO BID [facility] Clopidogrel Bisulfate (Plavix -) 75 mg PO DAILY [facility] Docusate Sodium (Colace -) 300 mg PO HS [facility] Folic Acid (Folic Acid -) 1 mg PO DAILY [facility] Furosemide (Lasix -) 40 mg PO BIDLASIX [facility] Sodium Chloride (Normal Saline -) 250 mls @ 3,000 mls/hr IV PRN PRN PRN Reason: Hypotension during Dialysis Stop: 09/05/18 12:54 Insulin Aspart (Novolog Vial Sliding Scale -) 1 vial SQ [facility]; Protocol Last Admin: 09/04/18 12:08 Dose: Not Given Levetiracetam (Keppra -) 500 mg PO BID [facility] Multivit/Ca Carb/B Cmplx/FA/Prenat (Nephro-Robb -) 1 tablet PO DAILY [facility] Non-Formulary Medication (Linaclotide [Linzess]) 145 mcg PO DAILY [facility] Non-Formulary Medication (Pimavanserin Tartrate [Nuplazid]) 34 mg PO DAILY [facility] Non-Formulary Medication (Topiramate [Topiramate Er]) 50 mg PO BID [facility] Polyethylene Glycol (Miralax (For Daily Use) -) 17 gm PO BID [facility] Quetiapine Fumarate (Seroquel -) 50 mg PO HS [facility] Senna (Senna -) 1 tab PO HS [facility] Sevelamer Carbonate (Renvela -) 800 mg PO TIDCM [facility] - Objective Vital Signs: Vital Signs Temperature 97.7 F 09/04/18 00:06 Pulse Rate 84 09/04/18 00:06 Respiratory Rate 16 09/03/18 14:22 Blood Pressure 144/76 09/04/18 00:06 O2 Sat by Pulse Oximetry (%) 99 09/04/18 00:06 Constitutional: Yes: No Distress, Calm Eyes: Yes: Conjunctiva Clear HENT: Yes: Atraumatic Cardiovascular: Yes: Regular Rate and Rhythm Respiratory: Yes: Regular, CTA Bilaterally Gastrointestinal: Yes: Normal Bowel Sounds, Soft Musculoskeletal: Yes: Muscle Weakness Extremities: Yes: WNL Edema: No Neurological: Yes: Alert, Pre-Existing Deficit Psychiatric: Yes: Alert, Oriented Labs: CBC, BMP 09/03/18 18:45 09/03/18 18:45 INR, PTT INR 0.97 (0.83-1.09) 09/03/18 19:00 - ....Imaging Cat Scan: Report Reviewed Problem List - Problems (1) ESRD (end stage renal disease) Assessment/Plan: -Renal on board -continue with dialysis M-W- -monitor renal function -BUN/Cr 30.3/7.0 Code(s): N18.6 - END STAGE RENAL DISEASE (2) Syncope Assessment/Plan: -Head CT scan reviewed -Neurology consult -Cardiology on board--no additional work up at this time, f/u as outpatient and d/c tele monitoring -fall precaution Code(s): R55 - SYNCOPE AND COLLAPSE (3) Anemia Assessment/Plan: -Hg 8.5 -monitor CBC daily -transfuse for Hg <7.0 to avoid fluid overload -Folic Acid Code(s): D64.9 - ANEMIA, UNSPECIFIED Qualifiers: Chronic kidney disease stage: on chronic dialysis (4) Complex partial seizure Assessment/Plan: -Neurology consult -Kera level -Keppra BID Code(s): G40.209 - LOCAL-REL SYMPTC EPI W CMPLX PRT SEIZ,NOT NTRCT,W/O STAT EPI Qualifiers: Epilepsy type: partial symptomatic (5) Type 2 diabetes mellitus Assessment/Plan: -BG ACHS -ISS -HgA1c Code(s): E11.9 - TYPE 2 DIABETES MELLITUS WITHOUT COMPLICATIONS (6) CVA (cerebral vascular accident) Assessment/Plan: -Aspirin, Plavix, and Atorvastatin Code(s): I63.9 - CEREBRAL INFARCTION, UNSPECIFIED (7) Hypertension Assessment/Plan: -Amlodipine, Carvedilol Code(s): I10 - ESSENTIAL (PRIMARY) HYPERTENSION Qualifiers: Hypertension type: essential hypertension Qualified Code(s): I10 - Essential (primary) hypertension
[2018-09-04] MEDS: SENNOSIDES 8.6MG TABLET (FP) PO SCH ×2 (21:17→21:49)
[2018-09-04] MEDS: DOCUSATE SODIUM 100 MG CAPSULE (FP) PO SCH ×2 (21:17→21:48)
[2018-09-04] MEDS: clonazePAM 0.5 MG TABLET PO SCH (21:18)
[2018-09-04] MEDS: POLYETHYLENE GLYCOL 3350 119 GM BTL PO SCH ×2 (21:19→21:48)
[2018-09-04 21:58] VITALS: BMI 31.5
[2018-09-04] MEDS ORDERED: levETIRAcetam 500 MG TABLET (FP) PO SCH ×2 (22:00→22:46)
[2018-09-04] MEDS ORDERED: SENNOSIDES 8.6MG TABLET (FP) PO SCH (22:00)
[2018-09-04] MEDS ORDERED: TOPIRAMATE 50 MG PO SCH (22:00)
[2018-09-04] MEDS ORDERED: ATORVASTATIN CA 80 MG TABLET (FP) PO SCH (22:00)
[2018-09-04] MEDS ORDERED: QUEtiapine FUMARATE 50 MG TABLET PO SCH (22:00)
--- NOTE | 2018-09-04 22:33 | CONSULT ---
Consult - text type - Consultation Consultation Note: NEUROLOGY CONSULT GREATLY APPRECIATED: Events reviewed and discussed with JERE Tovar. Mother at bedside aiding in history This 52 yo woman previously at [facility] now home with mother has h/o HTN, DM, chol; PVD (s/p multiple toe amputations) and ESRD on HD. Well-known to me with Multiple CVA's, diabetic retinopathy and blindness, diabetic peripheral neuropathy, migraine headaches, seizure disorder, Parkinson's disease with Parkinson's disease psychosis and chronic pain due to Restless limbs syndrome. Previously maintained on: albuterol, amlodipine, ASA 325, atorvatatin; buproprion 300; carvedilol 25 BID, plavix, furosemide, linzess, renvela, topiramate 50 mg BID, clonazepam 0.5 mg BID, leveteracetam 500 mg BID, quetiapine 25 mg hs, nuplazid 34 mg po qd, and L-Dopa 25/100 QID at 6-10-2-6. Now readmitted from HD s/p recent seizure activity. Mother reports that now HD length has been shorted from 4 hours to 3 hours. While in the NH, the mother believes she was having seizures and leveteracitam was increased and well tolerated, however after drawing labs and noting a high level, the leveteracitam dose was reduced. Aisha recalls sitting in the dialysis chair and "passing out" with the aide next to her, but recounts possible prodromal symptoms prompting her to check her BS, which was 109. She recalls everyone "surrounding her" and EMS arriving to take her to the hospital. Head CT (reviewed): unchanged from prior. Moderate, diffuse, atrophy. Diffuse microvascular changes in the white matter and multiple cortical infarcts. EXAM: BP 129/73. Obese, neck supple. Early contracture R elbow. R knee. Neuro: Awake, alert, responsive. Ox [facility]. Recognizes me. Dysarthric, sparse speech. + glabella Essentially blind. No obvious facial. Tolerating solid food without coughing. R hemiparesis. Rest tremor. + Cogwheeling. Areflexic in legs. Feel touch in all fours Impression: Convulsive Syncope vs. Seizure? Underlying OMS, seizures secondary to old CVA's PD with associated psychosis/RLS/ Migraine headaches R/O Toxic-Metabolic Encephalopathy (hx of UTI) Suggest: Orthostatic BP's Await UA, C & S Continue topiramate 50 mg BID and carvedilol 25 mg BID for migraine prophylaxis Continue Nuplazid 34 mg po qam and quetiapine 25 mg HS for Parkinson's psychosis Empirically increase leveteracitam to 750 mg po q12H Neuro f/u for med reconciliation and resumption of L-dopa should BP allow. Thank you very much, Simone Faye MD
[2018-09-05 04:10] LABS: SERUM IRON SATURATION 52 % (15-55); TOTAL IRON BINDING CAPACITY 180 ug/dL (250-450); UIBC 86 ug/dL (131-425)
[2018-09-05] MEDS: INSULIN SLIDING SCALE (NOVOLOG) 1 VIAL SQ SCH ×2 (06:11→11:07)
[2018-09-05] MEDS: FUROSEMIDE 40 MG TABLET (FP) PO SCH ×2 (06:12→15:16)
[2018-09-05 07:42] LABS: HEMATOCRIT 29.2 % (32.4-45.2); HEMOGLOBIN 9.7 GM/dL (10.7-15.3); MCH 33.6 pg (25.7-33.7); MCHC 33.3 g/dl (32.0-36.0); MEAN CELL VOLUME 100.9 fl (80-96); MEAN PLT VOLUME 9.9 fl (7.5-11.1); PLATELET COUNT 148 K/MM3 (134-434); RBC 2.89 M/mm3 (3.60-5.2); RDW 13.9 % (11.6-15.6); WHITE BLOOD COUNT 5.2 K/mm3 (4.0-10.0)
[2018-09-05 08:18] LABS: ALBUMIN 3.3 g/dl (3.4-5.0); BILIRUBIN,TOTAL 0.4 mg/dL (0.2-1); BLOOD UREA NITROGEN 44.2 mg/dL (7-18); CALCIUM 9.2 mg/dL (8.5-10.1); POTASSIUM 4.5 mmol/L (3.5-5.1)
[2018-09-05 08:20] LABS: CREATININE 9.2 mg/dL (0.55-1.3)
[2018-09-05] MEDS: SEVELAMER CARBONATE 800 MG TAB (FP) PO SCH ×2 (08:28→12:07)
[2018-09-05] MEDS ORDERED: PATIENT'S OWN MEDICATION (NON-FORMULARY) (Linaclotide [Linzess] 145 MCG) PO SCH (10:00)
[2018-09-05] MEDS ORDERED: [UNRECOGNIZED DRUG - OTHER] PO SCH (10:00)
[2018-09-05] MEDS ORDERED: ALBUTEROL SO4 0.083% IH SOL 2.5 MG/3 ML VIAL.NEB. NEB SCH (10:00)
[2018-09-05] MEDS ORDERED: ASPIRIN 325 MG ENTERIC COATED TABLET (FP) PO SCH (10:00)
[2018-09-05] MEDS ORDERED: PATIENT'S OWN MEDICATION (NON-FORMULARY) (Pimavanserin Tartrate [Nuplazid] 34 MG) PO SCH (10:00)
[2018-09-05] MEDS ORDERED: FOLIC ACID PO SCH (10:00)
[2018-09-05] MEDS ORDERED: VIT B COMPLEX AND C PO SCH (10:00)
[2018-09-05] MEDS ORDERED: VITAMIN B COMP W-C 1 EA TABLET PO SCH (10:00)
[2018-09-05] MEDS ORDERED: CLOPIDOGREL BISULFATE 75 MG TABLET (FP) PO SCH (10:00)
[2018-09-05] MEDS ORDERED: FOLIC ACID 1 MG TABLET (FP) PO SCH (10:00)
--- NOTE | 2018-09-05 11:49 | PN ---
Progress Note, Physician Chief Complaint: Seizure ESRD History of Present Illness: NAD Seen in HD denies any pain, sob or dizziness - Current Medication List Current Medications: Active Medications Albuterol Sulfate (Ventolin 0.083% Nebulizer Soln -) 1 amp NEB Q6H PRN PRN Reason: SHORTNESS OF BREATH Albuterol/Ipratropium (Duoneb -) 1 amp NEB Q6H PRN PRN Reason: SHORTNESS OF BREATH Amlodipine Besylate (Norvasc -) 10 mg PO DAILY [facility] Last Admin: 09/04/18 11:58 Dose: 10 mg Aspirin (Ecotrin -) 325 mg PO DAILY [facility] Atorvastatin Calcium (Lipitor -) 80 mg PO HS [facility] Last Admin: 09/04/18 21:18 Dose: 80 mg Bupropion HCl (Wellbutrin Xl -) 300 mg PO DAILY@1900 [facility] Last Admin: 09/04/18 21:18 Dose: 300 mg Carvedilol (Coreg -) 25 mg PO BID [facility] Last Admin: 09/04/18 21:18 Dose: 25 mg Clonazepam (Klonopin -) 0.5 mg PO BID [facility] Last Admin: 09/04/18 21:18 Dose: 0.5 mg Clopidogrel Bisulfate (Plavix -) 75 mg PO DAILY [facility] Docusate Sodium (Colace -) 300 mg PO HS [facility] Last Admin: 09/04/18 21:48 Dose: Not Given Folic Acid (Folic Acid -) 1 mg PO DAILY [facility] Furosemide (Lasix -) 40 mg PO BIDLASIX [facility] Last Admin: 09/05/18 06:12 Dose: 40 mg Sodium Chloride (Normal Saline -) 250 mls @ 3,000 mls/hr IV PRN PRN PRN Reason: Hypotension during Dialysis Stop: 09/05/18 12:54 Insulin Aspart (Novolog Vial Sliding Scale -) 1 vial SQ ACHS [facility]; Protocol Last Admin: 09/05/18 06:11 Dose: Not Given Levetiracetam (Keppra -) 750 mg PO BID [facility] Multivit/Ca Carb/B Cmplx/FA/Prenat (Nephro-Robb -) 1 tablet PO DAILY [facility] Non-Formulary Medication (Linaclotide [Linzess]) 145 mcg PO DAILY [facility] Non-Formulary Medication (Pimavanserin Tartrate [Nuplazid]) 34 mg PO DAILY [facility] Non-Formulary Medication (Topiramate [Topiramate Er]) 50 mg PO BID [facility] Polyethylene Glycol (Miralax (For Daily Use) -) 17 gm PO BID [facility] Last Admin: 09/04/18 21:48 Dose: Not Given Quetiapine Fumarate (Seroquel -) 50 mg PO [facility] Last Admin: 09/04/18 21:18 Dose: 50 mg Senna (Senna -) 1 tab PO [facility] Last Admin: 09/04/18 21:49 Dose: Not Given Sevelamer Carbonate (Renvela -) 800 mg PO TIDCM [facility] Last Admin: 09/05/18 08:28 Dose: 800 mg - Objective Vital Signs: Vital Signs Temperature 98.4 F 09/05/18 05:51 Pulse Rate 70 09/05/18 11:00 Respiratory Rate 16 09/05/18 11:00 Blood Pressure 116/61 09/05/18 11:00 O2 Sat by Pulse Oximetry (%) 98 09/05/18 00:00 Constitutional: Yes: Well Nourished, No Distress, Calm Cardiovascular: Yes: Regular Rate and Rhythm Respiratory: Yes: Regular Gastrointestinal: Yes: WNL Genitourinary: Yes: Oliguria Musculoskeletal: Yes: WNL Extremities: Yes: WNL Edema: No Peripheral Pulses WNL: Yes Neurological: Yes: Alert, Oriented Psychiatric: Yes: Alert, Oriented Labs: CBC, BMP 09/05/18 06:36 09/05/18 06:30 INR, PTT INR 0.97 (0.83-1.09) 09/03/18 19:00 Assessment/Plan (1) ESRD (end stage renal disease) Assessment/Plan: -Nephrology on board -continue with dialysis -W- -monitor renal function Code(s): N18.6 - END STAGE RENAL DISEASE (2) Syncope Assessment/Plan: -Head CT scan reviewed -Neurology consult appreciated -Cardiology on board--no additional work up at this time, f/u as outpatient and d/c tele monitoring -fall precaution Code(s): R55 - SYNCOPE AND COLLAPSE (3) Anemia Assessment/Plan: -Hg 8.5 -monitor CBC daily -transfuse for Hg <7.0 to avoid fluid overload -Folic Acid Code(s): D64.9 - ANEMIA, UNSPECIFIED Qualifiers: Chronic kidney disease stage: on chronic dialysis (4) Complex partial seizure Assessment/Plan: -Neurology consult -Keppra level -Keppra increased to 750 mg po BID Code(s): G40.209 - LOCAL-REL SYMPTC EPI W CMPLX PRT SEIZ,NOT NTRCT,W/O STAT EPI Qualifiers: Epilepsy type: partial symptomatic (5) Type 2 diabetes mellitus Assessment/Plan: -[facility] ACHS -ISS -HgA1c Code(s): E11.9 - TYPE 2 DIABETES MELLITUS WITHOUT COMPLICATIONS (6) CVA (cerebral vascular accident) Assessment/Plan: -Aspirin, Plavix, and Atorvastatin Code(s): I63.9 - CEREBRAL INFARCTION, UNSPECIFIED (7) Hypertension Assessment/Plan: -Amlodipine, Carvedilol Code(s): I10 - ESSENTIAL (PRIMARY) HYPERTENSION Qualifiers: Hypertension type: essential hypertension Qualified Code(s): I10 - Essential (primary) hypertension
--- NOTE | 2018-09-05 12:11 | PN ---
Progress Note, Physician History of Present Illness: Pt seen and examined at bedside. She is tolerating HD. She has not had any more syncopal episodes. - Current Medication List Current Medications: Active Medications Albuterol Sulfate (Ventolin 0.083% Nebulizer Soln -) 1 amp NEB Q6H PRN PRN Reason: SHORTNESS OF BREATH Albuterol/Ipratropium (Duoneb -) 1 amp NEB Q6H PRN PRN Reason: SHORTNESS OF BREATH Amlodipine Besylate (Norvasc -) 10 mg PO DAILY [facility] Last Admin: 09/04/18 11:58 Dose: 10 mg Aspirin (Ecotrin -) 325 mg PO DAILY [facility] Atorvastatin Calcium (Lipitor -) 80 mg PO HS [facility] Last Admin: 09/04/18 21:18 Dose: 80 mg Bupropion HCl (Wellbutrin Xl -) 300 mg PO DAILY@1900 [facility] Last Admin: 09/04/18 21:18 Dose: 300 mg Carvedilol (Coreg -) 25 mg PO BID [facility] Last Admin: 09/04/18 21:18 Dose: 25 mg Clonazepam (Klonopin -) 0.5 mg PO BID [facility] Last Admin: 09/04/18 21:18 Dose: 0.5 mg Clopidogrel Bisulfate (Plavix -) 75 mg PO DAILY [facility] Docusate Sodium (Colace -) 300 mg PO HS [facility] Last Admin: 09/04/18 21:48 Dose: Not Given Folic Acid (Folic Acid -) 1 mg PO DAILY [facility] Furosemide (Lasix -) 40 mg PO BIDLASIX [facility] Last Admin: 09/05/18 06:12 Dose: 40 mg Sodium Chloride (Normal Saline -) 250 mls @ 3,000 mls/hr IV PRN PRN PRN Reason: Hypotension during Dialysis Stop: 09/05/18 12:54 Insulin Aspart (Novolog Vial Sliding Scale -) 1 vial SQ ACHS [facility]; Protocol Last Admin: 09/05/18 06:11 Dose: Not Given Levetiracetam (Keppra -) 750 mg PO BID [facility] Multivit/Ca Carb/B Cmplx/FA/Prenat (Nephro-Robb -) 1 tablet PO DAILY [facility] Non-Formulary Medication (Linaclotide [Linzess]) 145 mcg PO DAILY [facility] Non-Formulary Medication (Pimavanserin Tartrate [Nuplazid]) 34 mg PO DAILY [facility] Non-Formulary Medication (Topiramate [Topiramate Er]) 50 mg PO BID [facility] Polyethylene Glycol (Miralax (For Daily Use) -) 17 gm PO BID [facility] Last Admin: 09/04/18 21:48 Dose: Not Given Quetiapine Fumarate (Seroquel -) 50 mg PO HS [facility] Last Admin: 09/04/18 21:18 Dose: 50 mg Senna (Senna -) 1 tab PO [facility] Last Admin: 09/04/18 21:49 Dose: Not Given Sevelamer Carbonate (Renvela -) 800 mg PO TIDCM [facility] Last Admin: 09/05/18 08:28 Dose: 800 mg - Objective Vital Signs: Vital Signs Temperature 98.4 F 09/05/18 05:51 Pulse Rate 73 09/05/18 12:00 Respiratory Rate 16 09/05/18 12:00 Blood Pressure 120/62 09/05/18 12:00 O2 Sat by Pulse Oximetry (%) 98 09/05/18 00:00 Constitutional: Yes: Calm HENT: Yes: Atraumatic Neck: Yes: Supple Cardiovascular: Yes: S1, S2 Respiratory: Yes: CTA Bilaterally Gastrointestinal: Yes: Soft, Abdomen, Obese Genitourinary: Yes: WNL Musculoskeletal: Yes: WNL Edema: No Neurological: Yes: Oriented Psychiatric: Yes: Oriented Labs: CBC, BMP 09/05/18 06:36 09/05/18 06:30 INR, PTT INR 0.97 (0.83-1.09) 09/03/18 19:00 Problem List - Problems (1) Syncope Code(s): R55 - SYNCOPE AND COLLAPSE (2) ESRD (end stage renal disease) Code(s): N18.6 - END STAGE RENAL DISEASE Assessment/Plan Current Medications Generic Name Dose Route Start Last Admin Trade Name Freq PRN Reason Stop Dose Admin Albuterol Sulfate 1 amp 09/04/18 11:49 Ventolin 0.083% Nebulizer Soln - NEB Q6H PRN SHORTNESS OF BREATH Albuterol/Ipratropium 1 amp 09/04/18 11:21 Duoneb - NEB Q6H PRN SHORTNESS OF BREATH Amlodipine Besylate 10 mg 09/04/18 12:00 09/04/18 11:58 Norvasc - PO 10 mg DAILY [facility] Administration Aspirin 325 mg 09/05/18 10:00 Ecotrin - PO DAILY [facility] Atorvastatin Calcium 80 mg 09/04/18 22:00 09/04/18 21:18 Lipitor - PO 80 mg HS [facility] Administration Bupropion HCl 300 mg 09/04/18 19:00 09/04/18 21:18 Wellbutrin Xl - PO 300 mg DAILY@1900 [facility] Administration Carvedilol 25 mg 09/04/18 12:00 09/04/18 21:18 Coreg - PO 25 mg BID [facility] Administration Clonazepam 0.5 mg 09/04/18 22:00 09/04/18 21:18 Klonopin - PO 0.5 mg BID [facility] Administration Clopidogrel Bisulfate 75 mg 09/05/18 10:00 Plavix - PO DAILY [facility] Docusate Sodium 300 mg 09/04/18 22:00 09/04/18 21:48 Colace - PO Not Given HS [facility] Folic Acid 1 mg 09/05/18 10:00 Folic Acid - PO DAILY [facility] Furosemide 40 mg 09/04/18 14:00 09/05/18 06:12 Lasix - PO 40 mg BIDLASIX [facility] Administration Sodium Chloride 250 mls @ 3,000 mls/hr 09/04/18 12:53 Normal Saline - IV 09/05/18 12:54 PRN PRN Hypotension during Dialysis Insulin Aspart 1 vial 09/04/18 07:00 09/05/18 06:11 Novolog Vial Sliding Scale - SQ Not Given ACHS [facility] Protocol Levetiracetam 750 mg 09/04/18 22:46 Keppra - PO BID [facility] Multivit/Ca Carb/B Cmplx/FA/Prenat 1 tablet 09/05/18 10:00 Nephro-Robb - PO DAILY [facility] Non-Formulary Medication 145 mcg 09/05/18 10:00 Linaclotide [Linzess] PO DAILY [facility] Non-Formulary Medication 34 mg 09/05/18 10:00 Pimavanserin Tartrate [Nuplazid] PO DAILY [facility] Non-Formulary Medication 50 mg 09/04/18 22:00 Topiramate [Topiramate Er] PO BID [facility] Polyethylene Glycol 17 gm 09/04/18 22:00 09/04/18 21:48 Miralax (For Daily Use) - PO Not Given BID [facility] Quetiapine Fumarate 50 mg 09/04/18 22:00 09/04/18 21:18 Seroquel - PO 50 mg HS [facility] Administration Senna 1 tab 09/04/18 22:00 09/04/18 21:49 Senna - PO Not Given HS [facility] Sevelamer Carbonate 800 mg 09/04/18 12:00 09/05/18 08:28 Renvela - PO 800 mg TIDCM [facility] Administration Impression 1. ESRD 2. syncope 3. DM 4. HLD 5. HTN 6. anemia 7. anxiety 8. epilepsy Plan - HD today - ct head neg - renal diet - epogen for anemia - 3 1/2 hrs, 2 k bath, 15 gauge 1 1/4 length abf 400 - renal diabetic diet
[2018-09-05 13:09] VITALS: BP 129/75; PULSE 77; TEMP 98
[2018-09-05] MEDS ORDERED: PT OWN MED DRAWER 7, Y5N ONE (13:10)
[2018-09-05] MEDS: CARVEDILOL 25 MG TABLET (FP) PO SCH (13:16)
[2018-09-05] MEDS: amLODIPine BESYLATE 10 MG TABLET (FP) PO SCH (13:17)
[2018-09-05] MEDS: clonazePAM 0.5 MG TABLET PO SCH (13:17)
[2018-09-05] MEDS: POLYETHYLENE GLYCOL 3350 119 GM BTL PO SCH (13:17)
--- NOTE | 2018-09-05 13:50 | DS ---
Physical Examination Vital Signs: Vital Signs Temperature 98 F 09/05/18 12:50 Pulse Rate 77 09/05/18 12:50 Respiratory Rate 16 09/05/18 12:50 Blood Pressure 129/75 09/05/18 12:50 O2 Sat by Pulse Oximetry (%) 98 09/05/18 00:00 Findings/Remarks: Pt. is a 52 y.o. F w/ PMHx. of ESRD (HD on MWF), CVA(residual R. side weakness) , NIDDM, Epilepsy/Seizure Disorder, Iron Deficiency Anemia, HLD, Asthma, and multiple syncopal episodes during HD presents to the ED from [facility] for syncopal episode during Dialysis. Pt. completed 2 hours and 50 min with 2.4 L removed when Pt. had syncopal episode. Pt. states she does not remember what happened through out the encounter and states she only rmember her blood sugar being checked before being sent to the hospital. Pt. states her dry weight is 92 kg and that when she syncopized she was at 91.5 kg. She states that " they took off too much fluid," and that this has happened multiple times in the past. Pt. endorses still making a good amount of urine. Pt. denies any symptoms currently and is adamant about going home because she does not want to miss her physical therapy. Pt. 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 Per chart documentation Pt. is at her baseline mental status. During her stay, she was seen by Neurology, Keppra increased to 750 mg po BID. No new episodes during her stay at the hospital. Dialysis done 09/05/18. Constitutional: Yes: Well Nourished, No Distress, Calm Cardiovascular: Yes: Regular Rate and Rhythm Respiratory: Yes: Regular Gastrointestinal: Yes: Normal Bowel Sounds, Soft Musculoskeletal: Yes: WNL Extremities: Yes: WNL Edema: No Peripheral Pulses WNL: Yes Neurological: Yes: Alert, Oriented Psychiatric: Yes: Alert, Oriented Labs: CBC, BMP 09/05/18 06:36 09/05/18 06:30 Discharge Summary Reason For Visit: Syncope Current Active Problems ESRD (end stage renal disease) (Acute) Syncope (Acute) Hospital Course: Laboratory Last Values WBC 5.2 K/mm3 (4.0-10.0) 09/05/18 06:36 RBC 2.89 M/mm3 (3.60-5.2) L 09/05/18 06:36 Hgb 9.7 GM/dL (10.7-15.3) L 09/05/18 06:36 Hct 29.2 % (32.4-45.2) L 09/05/18 06:36 MCV 100.9 fl (80-96) H 09/05/18 06:36 MCH 33.6 pg (25.7-33.7) 09/05/18 06:36 MCHC 33.3 g/dl (32.0-36.0) 09/05/18 06:36 RDW 13.9 % (11.6-15.6) 09/05/18 06:36 Plt Count 148 K/MM3 (134-434) 09/05/18 06:36 MPV 9.9 fl (7.5-11.1) 09/05/18 06:36 Absolute Neuts (auto) 3.8 K/mm3 (1.5-8.0) 09/03/18 18:45 Neutrophils % 68.2 % (42.8-82.8) 09/03/18 18:45 Lymphocytes % 21.1 % (8-40) D 09/03/18 18:45 Monocytes % 6.2 % (3.8-10.2) 09/03/18 18:45 Eosinophils % 3.9 % (0-4.5) 09/03/18 18:45 Basophils % 0.6 % (0-2.0) 09/03/18 18:45 Nucleated RBC % 0 % (0-0) 09/03/18 18:45 PT with INR 11.40 SEC (9.7-13.0) 09/03/18 19:00 INR 0.97 (0.83-1.09) 09/03/18 19:00 PTT (Actin FS) 33.1 SECONDS (25.2-36.5) 09/03/18 19:00 Sodium 143 mmol/L (136-145) 09/05/18 06:30 Potassium 4.5 mmol/L (3.5-5.1) 09/05/18 06:30 Chloride 108 mmol/L (98-107) H 09/05/18 06:30 Carbon Dioxide 28 mmol/L (21-32) 09/05/18 06:30 Anion Gap 7 MMOL/L (8-16) L 09/05/18 06:30 BUN 44.2 mg/dL (7-18) H 09/05/18 06:30 Creatinine 9.2 mg/dL (0.55-1.3) H* 09/05/18 06:30 Est GFR (CKD-EPI)AfAm 5.16 09/05/18 06:30 Est GFR (CKD-EPI)NonAf 4.46 09/05/18 06:30 POC Glucometer 68 UNITS (80-120) 09/05/18 05:47 Random Glucose 70 mg/dL (74-106) L 09/05/18 06:30 Lactic Acid 1.0 mmol/L (0.4-2.0) 09/03/18 18:45 Calcium 9.2 mg/dL (8.5-10.1) 09/05/18 06:30 Iron 94 ug/dL (27-159) 09/04/18 13:10 TIBC 180 ug/dL (250-450) L 09/04/18 13:10 Iron Saturation 52 % (15-55) 09/04/18 13:10 Ferritin 780.3 ng/ml (8-388) H 09/04/18 13:10 Total Bilirubin 0.4 mg/dL (0.2-1) 09/05/18 06:30 AST 14 U/L (15-37) L 09/05/18 06:30 ALT 16 U/L (13-61) 09/05/18 06:30 Alkaline Phosphatase 86 U/L (45-117) 09/05/18 06:30 Ammonia 46.20 umol/L (11-32) H 09/03/18 18:45 Creatine Kinase 90 U/L (26-192) 09/03/18 18:45 Troponin I 0.03 ng/ml (0.00-0.05) 09/03/18 18:45 B-Natriuretic Peptide 1148.6 pg/ml (5-125) H 09/03/18 18:45 Total Protein 6.0 g/dl (6.4-8.2) L 09/05/18 06:30 Albumin 3.3 g/dl (3.4-5.0) L 09/05/18 06:30 TSH 0.85 uIU/ml (0.358-3.74) 09/03/18 18:45 Vital Signs Temp 98 F 09/05/18 12:50 Pulse 77 09/05/18 12:50 Resp 16 09/05/18 12:50 BP 129/75 09/05/18 12:50 Pulse Ox 98 09/05/18 00:00 Intake & Output 09/04/18 09/05/18 09/05/18 23:59 11:59 23:59 Intake Total 480 Balance 480 Weight 88.621 kg Intake: Oral 480 Other: Voiding Method Bedpan Bedpan # Unmeasured Voids Void 0 Height 5 ft 6 in Body Mass Index (BMI) 31.5 Weight Measurement Method Built in Bedscale Condition: Stable - Instructions Diet, Activity, Other Instructions: Increase Keppra to 750 mg 2 x day Follow up with Neurology Dr Simone Faye MD Referrals: Simone Faye MD [Staff Physician] - Disposition: VNS/HOME HEALTH CARE - Home Medications Comprehensive Discharge Medication List: Ambulatory Orders Albuterol 0.083% Nebulizer Bonita [Ventolin 0.083% Nebulizer Soln -] 1 amp NEB DAILY 05/02/18 Amlodipine Besylate [Norvasc -] 10 mg PO DAILY 05/02/18 Aspirin [Aspirin EC] 325 mg PO DAILY 05/02/18 Atorvastatin Ca [Lipitor] 80 mg PO HS 05/02/18 Bupropion HCl [Wellbutrin Xl] 300 mg PO HS 05/02/18 Carvedilol [Coreg -] 25 mg PO BID 05/02/18 Clopidogrel Bisulfate [Plavix] 75 mg PO DAILY 05/02/18 Folic Acid/Vit B Complex and C [Folbee Plus Tablet] 5 mg PO DAILY 05/02/18 Furosemide [Lasix] 40 mg PO BID 05/02/18 Linaclotide [Linzess] 145 mcg PO DAILY 05/02/18 Sennosides [Senna] 17.2 mg GT HS 05/02/18 Sevelamer Carbonate [Renvela -] 800 mg PO TID 05/02/18 Topiramate [Topiramate ER] 50 mg PO BID 05/02/18 clonazePAM [Klonopin -] 0.5 mg PO BID 05/02/18 levETIRAcetam [Keppra -] 500 mg PO BID 05/02/18 Albuterol 2.5/Ipratropium 0.5 [Duoneb -] 1 amp NEB Q6H PRN amp 05/22/18 Docusate Sodium [Colace -] 300 mg PO HS capsule 05/22/18 Pimavanserin Tartrate [Nuplazid] 34 mg PO DAILY #30 capsule 05/22/18 Pimavanserin Tartrate [Nuplazid] 34 mg PO DAILY #30 capsule 05/22/18 Polyethylene Glycol 3350 [Miralax 119 gm Btl -] 17 gm PO BID bottle 05/22/18 Quetiapine Fumarate [Seroquel -] 50 mg PO HS tablet 05/22/18 Quetiapine Fumarate [Seroquel -] 50 mg PO HS #30 tablet 05/22/18 Vitamin B Comp W-C [Nephro-Robb -] 1 tablet PO DAILY #30 tablet 09/05/18 levETIRAcetam [Keppra -] 750 mg PO BID #90 tablet 09/05/18
[2018-09-06 05:09] LABS: HBSAG SCREEN Negative (Negative); HEP B CORE AB, TOT Negative (Negative)
== END 2018-09-05 16:04 | disposition home health service (06) ==
LOC: JER 14:17 → JERBED 21:31 → INTOOBSV 21:31 → J6S 09-04 18:43
PROVIDERS: ADMIT Internal Medicine; ATTEND Family Medicine
DX: R55 Syncope and collapse (principal); I12.0 Hypertensive chronic kidney disease with stage 5 chronic kidney disease or end stage renal disease; E11.22 Type 2 diabetes mellitus with diabetic chronic kidney disease; N18.6 End stage renal disease; N17.8 Other acute kidney failure; Z99.2 Dependence on renal dialysis; Z79.4 Long term (current) use of insulin; D50.9 Iron deficiency anemia, unspecified; G40.909 Epilepsy, unspecified, not intractable, without status epilepticus; G40.209 Localization-related (focal) (partial) symptomatic epilepsy and epileptic syndromes with complex partial seizures, not intractable, without status epilepticus; E78.5 Hyperlipidemia, unspecified; I73.89 Other specified peripheral vascular diseases; G20 Parkinson's disease; F28 Other psychotic disorder not due to a substance or known physiological condition; I69.851 Hemiplegia and hemiparesis following other cerebrovascular disease affecting right dominant side; I65.21 Occlusion and stenosis of right carotid artery; G47.30 Sleep apnea, unspecified; E66.9 Obesity, unspecified; Z68.31 Body mass index [BMI] 31.0-31.9, adult; Z89.422 Acquired absence of other left toe(s); Z89.421 Acquired absence of other right toe(s); Z88.0 Allergy status to penicillin; Z88.1 Allergy status to other antibiotic agents; Z88.2 Allergy status to sulfonamides; Z91.018 Allergy to other foods
CPT/HCPCS: 36415; 70450-TC; 71045-TC-FY; 80053; 80177; 82140; 82550; 82728; 82962; 83540; 83550; 83605; 83880; 84443; 84484; 85025; 85027; 85610; 85730; 86704; 86706; 86708; 86803; 87340; 93005; 93010; 99285-25; G0378

== ENCOUNTER 2019-03-04 09:31 | Inpatient (IN) | payer OTHER ==
[2019-03-04] MEDS ORDERED: ACETAMINOPHEN 1000 MG/100 ML VIAL (NON FORMULARY) IVPB ONE (10:28)
--- NOTE | 2019-03-04 10:29 | PDOC ---
History of Present Illness - General Chief Complaint: Injury Stated Complaint: FALL Time Seen by Provider: 03/04/19 09:50 - History of Present Illness Initial Comments: 03/04/19 10:54 53 yo F with h/o ESRD (HD on MWF) Parkinson Dz., CVA ( Residual R sided weakness ), NIDDM, Iron deficient anemia, HLD, asthma who p/w facial trauma s/p mechanical fall. Patient accompanied by home health aide following fall from wheelchair. Reports that coach driver was pushing patient up to the front of [facility] for scheduled apt. with vascular (Dr. Ch), when patient reports the chair and her foot were "stuck," on the curb and patient fell foward hittng her face and right knee on the concrete pavement. Denies LOC, neck/back pain or trauma. Reports bleeding from face, and headache ( now slightly improved). Patient reports she is scheduled to receive dialysis ([facility]) today 1000 AM. Pt. non ambulatory at baseline, assisted transfers. On ASA, Plavix. Patient denies vision change, palpitations, cough, wheezing, orthopena, PND, leg swelling/pain, N/V, F,C, CP, SOB, urinary complaints, hematuria, BPR, abdominal pain, diarrhea, constipation, lightheadedness, weakness, sensory changes. PMHx: as noted above. Multiple drug allergies. ROS: as noted SHx: Denies Etoh, IVDA, tobacco use Past History - Past Medical History Allergies/Adverse Reactions: Allergies Allergy/AdvReac Type Severity Reaction Status Date / Time amoxicillin [Amoxicillin] Allergy Severe Itching Verified 03/04/19 09:47 hydrocodone bitartrate Allergy Severe Hives,ITCHI Verified 03/04/19 09:47 [From Vicodin] NG morphine Allergy Severe Itching Verified 03/04/19 09:47 neomycin [Neomycin] Allergy Severe Swelling Verified 03/04/19 09:47 oxycodone HCl [From Percocet] Allergy Severe Itching,HIV Verified 03/04/19 09:47 ES rofecoxib [From Vioxx] Allergy Severe Hives Verified 03/04/19 09:47 Sulfa (Sulfonamide Allergy Severe sclera Verified 03/04/19 09:47 Antibiotics) reddened,ITCHING tramadol Allergy Severe Vomiting Verified 03/04/19 09:47 tomato Allergy Verified 1209/19 09:47 grapefruit [Grapefruit] AdvReac Severe CAN'T TAKE Verified 03/04/19 09:47 BECAUSE OF MEDICATIONS vancomycin AdvReac Mild red man Verified 03/04/19 09:47 syndrome Heparin Analogues AdvReac Unknown Verified 03/04/19 09:47 [Heparin Agents] flu shot Allergy Severe GETS FLU Uncoded 03/04/19 09:47 SYMPTOMS grape juice AdvReac Severe Uncoded 03/04/19 09:47 Home Medications: Ambulatory Orders Albuterol 0.083% Nebulizer Bonita [Ventolin 0.083% Nebulizer Soln -] 1 amp NEB DAILY 05/02/18 Amlodipine Besylate [Norvasc -] 10 mg PO DAILY 05/02/18 Aspirin [Aspirin EC] 325 mg PO DAILY 05/02/18 Atorvastatin Ca [Lipitor] 80 mg PO HS 05/02/18 Carvedilol [Coreg -] 25 mg PO BID 05/02/18 Clopidogrel Bisulfate [Plavix] 75 mg PO DAILY 05/02/18 Folic Acid/Vit B Complex and C [Folbee Plus Tablet] 5 mg PO DAILY 05/02/18 Furosemide [Lasix] 40 mg PO BID 05/02/18 Linaclotide [Linzess] 145 mcg PO DAILY 05/02/18 Sennosides [Senna] 17.2 mg GT HS 05/02/18 Sevelamer Carbonate [Renvela -] 800 mg PO TID 05/02/18 Topiramate [Topiramate ER] 50 mg PO BID 05/02/18 clonazePAM [Klonopin -] 0.5 mg PO BID 05/02/18 Albuterol 2.5/Ipratropium 0.5 [Duoneb -] 1 amp NEB Q6H PRN amp 05/22/18 Docusate Sodium [Colace -] 300 mg PO HS capsule 05/22/18 Pimavanserin Tartrate [Nuplazid] 34 mg PO DAILY #30 capsule 05/22/18 Polyethylene Glycol 3350 [Miralax 119 gm Btl -] 17 gm PO BID bottle 05/22/18 Quetiapine Fumarate [Seroquel -] 50 mg PO HS #30 tablet 05/22/18 Vitamin B Comp W-C [Nephro-Robb -] 1 tablet PO DAILY #30 tablet 09/05/18 levETIRAcetam [Keppra -] 750 mg PO BID #90 tablet 09/05/18 Bupropion HCl [Wellbutrin -] 300 mg PO BID 02/18/19 Anemia: Yes Asthma: Yes Cancer: No Cardiac Disorders: No CVA: Yes (TIA 2016, last 2016, tia x7) COPD: No CHF: No Dementia: No Diabetes: Yes Dialysis: Yes (m,w,f) GI Disorders: Yes (gerd) Disorders: No HTN: Yes Hypercholesterolemia: Yes Liver Disease: No Psychiatric Problems: Yes (ANXIETY.) Seizures: Yes Thyroid Disease: No - Surgical History Abdominal Surgery: No Appendectomy: No Cardiac Surgery: Yes (AV graft right arm) Cholecystectomy: No Lung Surgery: No Neurologic Surgery: No Orthopedic Surgery: No - Immunization History Td Vaccination: No TDAP Vaccination: No Immunization Up to Date: Yes - Psycho Social/Smoking Cessation Hx Smoking Status: No Smoking History: Unknown if ever smoked Have you smoked in the past 12 months: No Number of Cigarettes Smoked Daily: 0 Information on smoking cessation initiated: No Hx Alcohol Use: No Drug/Substance Use Hx: No Substance Use Type: None, Alcohol Hx Substance Use Treatment: No Review of Systems - Review of Systems Comments:: 03/04/19 11:04 GENERAL/CONSTITUTIONAL: No fever or chills. No weakness. HEAD, EYES, EARS, NOSE AND THROAT: + Facial pain. No change in vision. No ear pain or discharge. No sore throat. CARDIOVASCULAR: No chest pain or shortness of breath RESPIRATORY: No cough, wheezing, or hemoptysis. GASTROINTESTINAL: No nausea, vomiting, diarrhea or constipation. GENITOURINARY: No dysuria, frequency, or change in urination. MUSCULOSKELETAL: No joint or muscle swelling or pain. No neck or back pain. SKIN: No rash NEUROLOGIC: No headache, vertigo, loss of consciousness, or change in strength/ sensation. ENDOCRINE: No increased thirst. No abnormal weight change HEMATOLOGIC/LYMPHATIC: No anemia, easy bleeding, or history of blood clots. ALLERGIC/IMMUNOLOGIC: No hives or skin allergy. *Physical Exam - Vital Signs Last Vital Signs Temp Pulse Resp BP Pulse Ox 97.6 F 79 18 151/80 100 03/04/19 09:48 03/04/19 09:48 03/04/19 09:48 03/04/19 09:48 03/04/19 09:48 - Physical Exam 03/04/19 11:04 GENERAL: Awake, alert, and fully oriented, in no acute distress HEAD: + BL diffuse perioribital edema, left eye cataracts, globes intact, EOMI ( limited right eye movements legally blind), + diffuse maxillary and frontal ttp. EYES: PERRLA, sclera anicteric, conjunctiva clear ENT: + 1 mm superficial right internal superior labial laceration, does not cross kathy border. Auricles normal inspection, hearing grossly normal, nares patent, oropharynx clear without exudates. Moist mucosa NECK: Normal ROM, supple, no lymphadenopathy, JVD, or masses LUNGS: No distress, speaks full sentences, clear to auscultation bilaterally HEART: Regular rate and rhythm, normal S1 and S2, no murmurs, rubs or gallops, peripheral pulses normal and equal bilaterally. ABDOMEN: Soft, nontender, normoactive bowel sounds. No guarding, no rebound. No masses EXTREMITIES : + R patellar ttp with adequate strength and ROM (flexion/extension )+ R knee abrasion. + R arm slightly contracted, held in internal rotation, elbow flexion, and adductionNormal inspection, Normal range of motion, no edema. No clubbing or cyanosis NEUROLOGICAL: Cranial nerves II through XII grossly intact. Normal speech SKIN: Warm, Dry, normal turgor, no rashes or lesions noted Procedures - Laceration/Wound Repair Right Lip Wound Length: to 2.5 cm Wound Explored: clean, no foreign body present Wound's Depth, Shape: superficial, linear Irrigated w/ Saline: Yes Betadine Prep: No Anesthesia: 1% Lidocaine Amount of Anesthetic (ccs): 2 Wound Repaired With: Sutures Deep Layer Suture Size/Type: 3:0, gut Sterile Dressing Applied: No Splint Applied: No Sling Applied: No ED Treatment Course - LABORATORY CBC & Chemistry Diagram: 03/04/19 10:16 03/04/19 10:16 - RADIOLOGY Radiology Studies Ordered: Category Date Time Status CERVICAL SPINE CT W/O CONTR [CT] Stat CT Scan 03/04/19 10:[address] WITHOUT CONTRAST [CT] Stat CT Scan 03/04/19 10:25 Ordered CHEST PA & LAT [RAD] Stat Radiology 03/04/19 10:25 Ordered ELBOW-RIGHT [RAD] Stat Radiology 03/04/19 10:25 Ordered KNEE 3 POS-RIGHT [RAD] Stat Radiology 03/04/19 10:25 Ordered SHOULDER W/TRANS-RIGHT [RAD] Stat Radiology 03/04/19 10:25 Ordered Medical Decision Making - Medical Decision Making 03/04/19 10:59 53 yo F with h/o ESRD (HD on MWF) Parkinson Dz., CVA ( Residual R sided weakness ), NIDDM, Iron deficient anemia, HLD, asthma who p/w facial trauma s/p mechanical fall. Physical exam notable for BL diffuse perioribital edema, left eye cataracts, globes intact, EOMI (limited right eye movements legally blind), + diffuse maxillary and frontal ttp. + 1 mm superficial right internal superior labial laceration, + R patellar ttp with adequate strength and ROM (flexion/ extension). + R arm slightly contracted, held in internal rotation, elbow flexion, and adduction. Will obtain CT imaging to assess for skull fracture, facial bone fracture. R/o patellar dislocation, knee fracture, elbow fracture/ dislocation. Will evlauate need for emergent dialysis d/t missed dialysis today. Will assess for eleectolyte abnml, metabolic and toxic derangements, acid -base disturbances. 03/04/19 11:32 Ed Course: 2 Sterile chromic gut sutures to right upper lip 03/04/19 11:33 Per [facility] ([facility]), absent time slots available for dialysis today (03/04/19) 03/04/19 11:35 Laboratory Tests 03/04/19 03/04/19 10:16 10:16 WBC 4.5 Hgb 10.5 L Hct 33.3 Plt Count 179 D Sodium 145 Potassium 3.7 BUN 36.5 H Creatinine 8.7 H* 03/04/19 12:46 CTH: No acute pathology CT CSPINE: No acute fracture Patient endorsed to Dr. Sharma Plan to admit for missed dialysis 03/04/19 13:[address] Oliva/Shana covering for Dr. Rosales Discharge - Discharge Information Problems reviewed: No Clinical Impression/Diagnosis: Missed dialysis Condition: Stable - Admission Yes - Follow up/Referral - Patient Discharge Instructions - Post Discharge Activity
[2019-03-04 10:41] LABS: BASO % 0.6 % (0-2.0); EOS % 3.7 % (0-4.5); HEMATOCRIT 33.3 % (32.4-45.2); HEMOGLOBIN 10.5 GM/dL (10.7-15.3); MCH 33.6 pg (25.7-33.7); MCHC 31.7 g/dl (32.0-36.0); MONO % 7.4 % (3.8-10.2); NEUT % 63.3 % (42.8-82.8); PLATELET COUNT 179 K/MM3 (134-434); RBC 3.14 M/mm3 (3.60-5.2); RDW 14.9 % (11.6-15.6); WHITE BLOOD COUNT 4.5 K/mm3 (4.0-10.0)
[2019-03-04] MEDS ORDERED: ACETAMINOPHEN INJECTION 100 ML IVPB ONE (10:41)
[2019-03-04] MEDS ORDERED: ACETAMINOPHEN W/ CODEINE LIQ 5 ML CUP PO ONE (10:43)
[2019-03-04] MEDS ORDERED: DIPHTH,PERTUSS(ACELL),TET 0.5 ML DISP.SYRIN IM ONE ×2 (10:57→11:05)
--- NOTE | 2019-03-04 11:07 | PDOC ---
Attending Attestation - Resident Resident Name: Soham Lawrence - ED Attending Attestation I have performed the following: I have examined & evaluated the patient, The case was reviewed & discussed with the resident, I agree w/resident's findings & plan, Exceptions are as noted - HPI HPI: 03/04/19 11:03 53-year-old female history of end-stage renal disease hypertension hyperlipidemia Parkinson's with severe right-sided weakness mostly wheelchair- bound however does occasionally ambulate with a walker has 24-hour home health assistance here today status post a fall out of her wheelchair. Patient states she was coming in for an appointment to [facility] with Dr. Ch subsequently as a wheelchair went over the curb she was thrust forward onto the ground landing on her face sustaining multiple abrasions and a laceration to her upper lip denies LOC however the patient is currently on aspirin and Plavix happened just prior to arrival also complaining of right shoulder and right elbow pain patient does have chronic right-sided weakness and has decreased range of motion in her right arm secondary to her severe Parkinson's - Physicial Exam PE: 03/04/19 11:04 patient is awake and alert she has multiple facial abrasions are superficial over the right superior eyelid and the upper lip there is a central lip laceration intraorally on the buccal side there is no dental laxity noted. 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 Lungs are clear bilaterally heart is regular with no murmurs rubs or gallops the right shoulder is tender to palpation there is no bony deformities or ecchymosis noted. The right elbow is also tender to palpation decreased range of motion at the shoulder and elbow which is the patient's baseline 2+ radial pulses bilaterally lower extremities are noted for right knee tenderness - Medical Decision Making 03/04/19 11:06 53-year-old female history of Parkinson's end-stage renal disease hypertension hyperlipidemia lung disease status post fall of her wheelchair with multiple facial abrasions and head trauma as well as bony tenderness the right shoulder elbow and knee. Plan x-rays of the shoulder elbow and knee to rule out fracture. Bacitracin for the topical abrasions. Patient will require one loose approximating observable stitch for her lip laceration CT head rule out intracranial injury due to the fact the patient is anticoagulated on aspirin and Plavix. Will also obtain a CT cervical spine should the work-up be negative for any further traumatic injuries patient will be discharged we will work to coordinate dialysis for the patient as she missed her 10 AM session Heart Score/ECG Review #1 General ECG Interpretation: Sinus Rhythm (75), Normal Rate, Normal Intervals, No acute ischemic changes
[2019-03-04 11:13] LABS: ALBUMIN 3.7 g/dl (3.4-5.0); BILIRUBIN,TOTAL 0.5 mg/dL (0.2-1); BLOOD UREA NITROGEN 36.5 mg/dL (7-18); CALCIUM 9.8 mg/dL (8.5-10.1); POTASSIUM 3.7 mmol/L (3.5-5.1)
[2019-03-04 11:17] LABS: CREATININE 8.7 mg/dL (0.55-1.3)
--- NOTE | 2019-03-04 14:02 | CONSULT ---
Consult Consult Specialty:: Nephrology Reason for Consultation:: ESRD - History of Present Illness Chief Complaint: s/p fall History of Present Illness: Pt is a 53 year old female with pmhx of esrd, legally blind, cva, dm, anemia, asthma and hld who presents to the ER after a fall that resulted in facial trauma. She is due for HD today and missed her dialysis. She denies shortness of breath. She complains of facial pain. She did not loose consciousness. She is compliant with meds. She denies headache or seizure like activity. 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: CVA Cardio/Vascular: Yes: HTN, Hyperlipdemia, Other (Peripheral vascular disease) Pulmonary: Yes: Asthma, Sleep Apnea Gastrointestinal: Yes: Constipation Renal/: Yes: Renal Failure, Hemodialysis ...LMP: 05/18/18 Rheumatology: Yes: Other (See HPI) Endocrine: Yes: Diabetes Mellitus - Past Surgical History Past Surgical History: Yes: Amputation, AV Fistula/Graft, - Alcohol/Substance Use Hx Alcohol Use: No - Smoking History Smoking history: Unknown if ever smoked Have you smoked in the past 12 months: No Aproximately how many cigarettes per day: 0 - Social History Usual Living Arrangement: Alf ADL: Independent History of Recent Travel: No Home Medications - Allergies Allergies/Adverse Reactions: Allergies Allergy/AdvReac Type Severity Reaction Status Date / Time amoxicillin [Amoxicillin] Allergy Severe Itching Verified 03/04/19 09:47 hydrocodone bitartrate Allergy Severe Hives,ITCHI Verified 03/04/19 09:47 [From Vicodin] NG morphine Allergy Severe Itching Verified 03/04/19 09:47 neomycin [Neomycin] Allergy Severe Swelling Verified 03/04/19 09:47 oxycodone HCl [From Percocet] Allergy Severe Itching,HIV Verified 03/04/19 09:47 ES rofecoxib [From Vioxx] Allergy Severe Hives Verified 03/04/19 09:47 Sulfa (Sulfonamide Allergy Severe sclera Verified 03/04/19 09:47 Antibiotics) reddened,ITCHING tramadol Allergy Severe Vomiting Verified 03/04/19 09:47 tomato Allergy Verified 03/04/19 09:47 grapefruit [Grapefruit] AdvReac Severe CAN'T TAKE Verified 03/04/19 09:47 BECAUSE OF MEDICATIONS vancomycin AdvReac Mild red man Verified 03/04/19 09:47 syndrome Heparin Analogues AdvReac Unknown Verified 03/04/19 09:47 [Heparin Agents] flu shot Allergy Severe GETS FLU Uncoded 03/04/19 09:47 SYMPTOMS grape juice AdvReac Severe Uncoded 03/04/19 09:47 - Home Medications Home Medications: Ambulatory Orders Albuterol 0.083% Nebulizer Bonita [Ventolin 0.083% Nebulizer Soln -] 1 amp NEB DAILY 05/02/18 Amlodipine Besylate [Norvasc -] 10 mg PO DAILY 05/02/18 Aspirin [Aspirin EC] 325 mg PO DAILY 05/02/18 Atorvastatin Ca [Lipitor] 80 mg PO HS 05/02/18 Carvedilol [Coreg -] 25 mg PO BID 05/02/18 Clopidogrel Bisulfate [Plavix] 75 mg PO DAILY 05/02/18 Folic Acid/Vit B Complex and C [Folbee Plus Tablet] 5 mg PO DAILY 05/02/18 Furosemide [Lasix] 40 mg PO BID 05/02/18 Linaclotide [Linzess] 145 mcg PO DAILY 05/02/18 Sennosides [Senna] 17.2 mg GT HS 05/02/18 Sevelamer Carbonate [Renvela -] 800 mg PO TID 05/02/18 Topiramate [Topiramate ER] 50 mg PO BID 05/02/18 clonazePAM [Klonopin -] 0.5 mg PO BID 05/02/18 Albuterol 2.5/Ipratropium 0.5 [Duoneb -] 1 amp NEB Q6H PRN amp 05/22/18 Docusate Sodium [Colace -] 300 mg PO HS capsule 05/22/18 Pimavanserin Tartrate [Nuplazid] 34 mg PO DAILY #30 capsule 05/22/18 Polyethylene Glycol 3350 [Miralax 119 gm Btl -] 17 gm PO BID bottle 05/22/18 Quetiapine Fumarate [Seroquel -] 50 mg PO HS #30 tablet 05/22/18 Vitamin B Comp W-C [Nephro-Robb -] 1 tablet PO DAILY #30 tablet 09/05/18 levETIRAcetam [Keppra -] 750 mg PO BID #90 tablet 09/05/18 Bupropion HCl [Wellbutrin -] 300 mg PO BID 02/18/19 Family Medical History Family History: Denies Review of Systems - Review of Systems Constitutional: reports: Malaise Eyes: reports: Other (legaly blind) HENT: reports: No Symptoms Neck: reports: No Symptoms Gastrointestinal: reports: No Symptoms Genitourinary: reports: No Symptoms Integumentary: reports: No Symptoms Hematology/Lymphatic: reports: No Symptoms Psychiatric: reports: No Symptoms Physical Exam Vital Signs: Vital Signs Temperature 97.6 F 03/04/19 09:48 Pulse Rate 79 03/04/19 09:48 Respiratory Rate 18 03/04/19 09:48 Blood Pressure 151/80 03/04/19 09:48 O2 Sat by Pulse Oximetry (%) 100 03/04/19 09:48 Constitutional: Yes: Calm Eyes: Yes: Other (facial trauma) Cardiovascular: Yes: S1, S2 Respiratory: Yes: CTA Bilaterally Gastrointestinal: Yes: Soft Renal/: Yes: WNL Edema: No Neurological: Yes: Oriented Psychiatric: Yes: Oriented Labs: CBC, BMP 03/04/19 10:16 03/04/19 10:16 Imaging - Results Cat Scan: Report Reviewed Problem List - Problems (1) Missed dialysis Code(s): BHC0269 - (2) Anemia Code(s): D64.9 - ANEMIA, UNSPECIFIED Qualifiers: Chronic kidney disease stage: on chronic dialysis (3) ESRD (end stage renal disease) Code(s): N18.6 - END STAGE RENAL DISEASE Assessment/Plan Current Medications Generic Name Dose Route Start Last Admin Trade Name Bella PRN Reason Stop Dose Admin Epoetin Adi 3,000 unit 03/04/19 14:15 Procrit - IVPUSH 03/04/19 14:16 ONCE ONE Sodium Chloride 250 mls @ 3,000 mls/hr 03/04/19 14:08 Normal Saline - IV 03/05/19 14:07 PRN PRN Hypotension during Dialysis Impression 1. ESRD 2. s/p fall 3. DM 4. HLD 5. HTN 6. anemia 7. anxiety 8. epilepsy Plan - HD today - ct head neg - no heparin on HD - renal diet - epogen for anemia - 3:45 2 k bath, 15 gauge long needle, abf 425, 3000 epogen - renal diabetic diet - 3 k bath on HD as potassium is low
[2019-03-04] MEDS ORDERED: SODIUM CHLORIDE 250 ML IV PRN (14:08)
[2019-03-04] MEDS ORDERED: EPOETIN ALFA 3,000 UNIT/1 ML ML IVPUSH ONE (14:15)
--- NOTE | 2019-03-04 14:36 | HP ---
Admitting History and Physical - Primary Care Physician PCP: Emani Rosales A - Admission Chief Complaint: s/p fall History of Present Illness: 53-year-old female history of end-stage renal disease hypertension hyperlipidemia Parkinson's with severe right-sided weakness mostly wheelchair- bound however does occasionally ambulate with a walker has 24-hour home health assistance here today status post a fall out of her wheelchair. Patient states she was coming in for an appointment to [facility] with Dr. 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 Cardiovascular: Yes: HTN, Hyperlipdemia, Other (Peripheral vascular disease) Pulmonary: Yes: Asthma, Sleep Apnea Gastrointestinal: Yes: Constipation Renal/: Yes: Renal Failure, Hemodialysis ...LMP: 05/18/18 Heme/Onc: Yes: Anemia Rheumatology: Yes: Other (See HPI) Endocrine: Yes: Diabetes Mellitus - Past Surgical History Past Surgical History: Yes: Amputation, AV Fistula/Graft, - Smoking History Smoking history: Unknown if ever smoked Have you smoked in the past 12 months: No Aproximately how many cigarettes per day: 0 - Alcohol/Substance Use Hx Alcohol Use: No - Social History ADL: Independent History of Recent Travel: No Home Medications - Allergies Allergies/Adverse Reactions: Allergies Allergy/AdvReac Type Severity Reaction Status Date / Time amoxicillin [Amoxicillin] Allergy Severe Itching Verified 03/04/19 09:47 hydrocodone bitartrate Allergy Severe Hives,ITCHI Verified 03/04/19 09:47 [From Vicodin] NG morphine Allergy Severe Itching Verified 03/04/19 09:47 neomycin [Neomycin] Allergy Severe Swelling Verified 03/04/19 09:47 oxycodone HCl [From Percocet] Allergy Severe Itching,HIV Verified 03/04/19 09:47 ES rofecoxib [From Vioxx] Allergy Severe Hives Verified 03/04/19 09:47 Sulfa (Sulfonamide Allergy Severe sclera Verified 03/04/19 09:47 Antibiotics) reddened,ITCHING tramadol Allergy Severe Vomiting Verified 03/04/19 09:47 tomato Allergy Verified 03/04/19 09:47 grapefruit [Grapefruit] AdvReac Severe CAN'T TAKE Verified 03/04/19 09:47 BECAUSE OF MEDICATIONS vancomycin AdvReac Mild red man Verified 03/04/19 09:47 syndrome Heparin Analogues AdvReac Unknown Verified 03/04/19 09:47 [Heparin Agents] flu shot Allergy Severe GETS FLU Uncoded 03/04/19 09:47 SYMPTOMS grape juice AdvReac Severe Uncoded 03/04/19 09:47 - Home Medications Home Medications: Ambulatory Orders Albuterol 0.083% Nebulizer Bonita [Ventolin 0.083% Nebulizer Soln -] 1 amp NEB DAILY 05/02/18 Amlodipine Besylate [Norvasc -] 10 mg PO DAILY 05/02/18 Aspirin [Aspirin EC] 325 mg PO DAILY 05/02/18 Atorvastatin Ca [Lipitor] 80 mg PO HS 05/02/18 Carvedilol [Coreg -] 25 mg PO BID 05/02/18 Clopidogrel Bisulfate [Plavix] 75 mg PO DAILY 05/02/18 Folic Acid/Vit B Complex and C [Folbee Plus Tablet] 5 mg PO DAILY 05/02/18 Furosemide [Lasix] 40 mg PO BID 05/02/18 Linaclotide [Linzess] 145 mcg PO DAILY 05/02/18 Sennosides [Senna] 17.2 mg GT HS 05/02/18 Sevelamer Carbonate [Renvela -] 800 mg PO TID 05/02/18 Topiramate [Topiramate ER] 50 mg PO BID 05/02/18 clonazePAM [Klonopin -] 0.5 mg PO BID 05/02/18 Albuterol 2.5/Ipratropium 0.5 [Duoneb -] 1 amp NEB Q6H PRN amp 05/22/18 Docusate Sodium [Colace -] 300 mg PO HS capsule 05/22/18 Pimavanserin Tartrate [Nuplazid] 34 mg PO DAILY #30 capsule 05/22/18 Polyethylene Glycol 3350 [Miralax 119 gm Btl -] 17 gm PO BID bottle 05/22/18 Quetiapine Fumarate [Seroquel -] 50 mg PO HS #30 tablet 05/22/18 Vitamin B Comp W-C [Nephro-Robb -] 1 tablet PO DAILY #30 tablet 09/05/18 levETIRAcetam [Keppra -] 750 mg PO BID #90 tablet 09/05/18 Bupropion HCl [Wellbutrin -] 300 mg PO BID 02/18/19 Review of Systems - Review of Systems Eyes: reports: Other (lip swelling eye lid swelling) Physical Examination Vital Signs: Vital Signs Temperature 97.6 F 03/04/19 09:48 Pulse Rate 79 03/04/19 09:48 Respiratory Rate 18 03/04/19 09:48 Blood Pressure 151/80 03/04/19 09:48 O2 Sat by Pulse Oximetry (%) 100 03/04/19 09:48 Eyes: Yes: Other (eyelid sweling lip swelling with abrasian on the eyelid and lip) Cardiovascular: Yes: Regular Rate and Rhythm, S1, S2 Respiratory: Yes: CTA Bilaterally Gastrointestinal: Yes: Normal Bowel Sounds, Soft Edema: No Neurological: Yes: Alert, Oriented Labs: CBC, BMP 03/04/19 10:16 03/04/19 10:16 Imaging - Results Cat Scan: Report Reviewed (no acute infarct no fracture) Problem List - Problems (1) Missed dialysis Assessment/Plan: HD today in hospital dr beatriz skelton placed- to see patient ( missed appt bc of fall) tae kodakrisilke with HD Code(s): CEH6241 - (2) Status post fall Assessment/Plan: hold aspirin and plavix facial CT done report pending Code(s): Z91.81 - HISTORY OF FALLING (3) Complex partial seizure Assessment/Plan: seizure meds Code(s): G40.209 - LOCAL-REL SYMPTC EPI W CMPLX PRT SEIZ,NOT NTRCT,W/O STAT EPI Qualifiers: Epilepsy type: partial symptomatic (4) Fall Assessment/Plan: PT eval scd facial CT pending tetanus shot given Code(s): W19.XXXA - UNSPECIFIED FALL, INITIAL ENCOUNTER Qualifiers: Encounter type: initial encounter Qualified Code(s): W19.XXXA - Unspecified fall, initial encounter
--- NOTE | 2019-03-04 15:20 | CONSULT ---
- Consultation REQUESTING PROVIDER: Vascular Surgery CONSULT REQUEST: We have been asked to surgically evaluate this patient's RUE AVF PCP: Hazel Spencer Patient missed her HD session. Here with medical problems. She was scheduled for f/u in the OUT-PATIENT clinic today but ended up in ER. Patient currently on HD via RUE AVF. Per HD RN, they have good inflow/outflow. No need for further vascular input. Cont care per Medical Team Problem List - Problems (1) Missed dialysis Code(s): BUI2591 - (2) Arteriovenous fistula Code(s): I77.0 - ARTERIOVENOUS FISTULA, ACQUIRED (3) Glaucoma Code(s): H40.9 - UNSPECIFIED GLAUCOMA Visit type - Case Type Case Type: ED Admission - Emergency Emergency Visit: Yes ED Registration Date: 03/04/19 Care time: The patient presented to the Emergency Department on the above date and was hospitalized for further evaluation of their emergent condition. - New patient This patient is new to me today: Yes Date on this admission: 03/04/19
--- NOTE | 2019-03-04 15:33 | EKG ---
Test Reason : Blood Pressure : / mmHG Vent. Rate : 075 BPM Atrial Rate : 075 BPM P-R Int : 190 ms QRS Dur : 082 ms QT Int : 390 ms P-R-T Axes : 004 -12 017 degrees QTc Int : 435 ms NORMAL SINUS RHYTHM NORMAL ECG WHEN COMPARED WITH ECG OF 03-SEP-2018 14:26, NO SIGNIFICANT CHANGE WAS FOUND Confirmed by RUPERTO COON MD ([id number]) on 03/04/2019 3:33:07 PM Referred By: Confirmed By:RUPERTO COON MD
[2019-03-04] MEDS: SEVELAMER CARBONATE 800 MG TAB (FP) PO SCH (17:30)
[2019-03-04 18:43] VITALS: BMI 35.0
[2019-03-04] MEDS ORDERED: ACETAMINOPHEN 325 MG TABLET (FP) PO PRN (20:36)
[2019-03-04] MEDS ORDERED: QUEtiapine FUMARATE 25 MG TABLET (FP) ONE (20:54)
[2019-03-04] MEDS: CARVEDILOL 25 MG TABLET (FP) PO SCH (21:04)
[2019-03-04] MEDS: TOPIRAMATE 25 MG TABLET (FP) PO SCH (21:06)
[2019-03-04] MEDS: QUEtiapine FUMARATE 50 MG TABLET PO SCH (21:07)
[2019-03-04] MEDS: ATORVASTATIN CA 80 MG TABLET (FP) PO SCH (21:09)
[2019-03-04] MEDS: levETIRAcetam 500 MG TABLET (FP) PO SCH (21:10)
[2019-03-04] MEDS: clonazePAM 0.5 MG TABLET PO PRN (21:11)
[2019-03-04] MEDS ORDERED: buPROPion HCL 100 MG TABLET PO SCH (22:00)
[2019-03-04] MEDS ORDERED: levETIRAcetam 500 MG TABLET (FP) PO SCH (22:00)
[2019-03-05] MEDS: SEVELAMER CARBONATE 800 MG TAB (FP) PO SCH ×3 (05:30→12:18)
--- NOTE | 2019-03-05 09:22 | PN ---
Progress Note, Physician - Current Medication List Current Medications: Active Medications Acetaminophen (Tylenol -) 650 mg PO Q6H PRN PRN Reason: PAIN LEVEL 6-10 Last Admin: 03/04/19 21:19 Dose: 650 mg Amlodipine Besylate (Norvasc -) 10 mg PO DAILY [facility] Atorvastatin Calcium (Lipitor -) 80 mg PO HS [facility] Last Admin: 03/04/19 21:09 Dose: 80 mg Bupropion HCl (Wellbutrin Xl -) 300 mg PO DAILY [facility] Last Admin: 03/04/19 21:10 Dose: 300 mg Carvedilol (Coreg -) 25 mg PO BID [facility] Last Admin: 03/04/19 21:04 Dose: 25 mg Clonazepam (Klonopin -) 0.5 mg PO BID PRN PRN Reason: ANXIETY Last Admin: 03/04/19 21:11 Dose: 0.5 mg Sodium Chloride (Normal Saline -) 250 mls @ 3,000 mls/hr IV PRN PRN PRN Reason: Hypotension during Dialysis Stop: 03/05/19 14:07 Levetiracetam (Keppra -) 500 mg PO BID [facility] Last Admin: 03/04/19 21:10 Dose: 500 mg Quetiapine Fumarate (Seroquel -) 50 mg PO HS [facility] Last Admin: 03/04/19 21:07 Dose: 50 mg Sevelamer Carbonate (Renvela -) 800 mg PO TIDCM [facility] Last Admin: 03/05/19 08:24 Dose: 800 mg Topiramate (Topamax -) 50 mg PO BID [facility] Last Admin: 03/04/19 21:06 Dose: 50 mg - Objective Vital Signs: Vital Signs Temperature 98.5 F 03/05/19 05:00 Pulse Rate 74 03/05/19 05:00 Respiratory Rate 18 03/05/19 05:00 Blood Pressure 134/71 03/05/19 05:00 O2 Sat by Pulse Oximetry (%) 100 03/04/19 09:48 Cardiovascular: Yes: S1, S2 Respiratory: Yes: Regular, CTA Bilaterally Gastrointestinal: Yes: Normal Bowel Sounds, Soft Edema: No Wound/Incision: Yes: Other (lip swelling and lacration) Labs: CBC, BMP 03/04/19 10:16 03/04/19 10:16 Assessment/Plan - Problems (1) Missed dialysis Assessment/Plan: HD per renal dr beatriz skelton noted renvela procrit with HD Code(s): [id number] - (2) Status post fall Assessment/Plan: hold aspirin and plavix facial CT,head and neck noted -no fx ns consult Code(s): Z91.81 - HISTORY OF FALLING (3) Complex partial seizure Assessment/Plan: seizure meds Code(s): G40.209 - LOCAL-REL SYMPTC EPI W CMPLX PRT SEIZ,NOT NTRCT,W/O STAT EPI Qualifiers: Epilepsy type: partial symptomatic (4) Fall Assessment/Plan: PT eval scd pain control tetanus shot given Code(s): W19.XXXA - UNSPECIFIED FALL, INITIAL ENCOUNTER Qualifiers: Encounter type: initial encounter Qualified Code(s): W19.XXXA - Unspecified fall, initial encounter
[2019-03-05] MEDS: TOPIRAMATE 25 MG TABLET (FP) PO SCH ×2 (10:03→21:36)
[2019-03-05] MEDS: amLODIPine BESYLATE 10 MG TABLET (FP) PO SCH (10:04)
[2019-03-05] MEDS: CARVEDILOL 25 MG TABLET (FP) PO SCH ×2 (10:04→21:38)
[2019-03-05] MEDS: levETIRAcetam 500 MG TABLET (FP) PO SCH ×2 (10:04→21:38)
--- NOTE | 2019-03-05 13:06 | CONSULT ---
Consult Consult Specialty:: PM&R Dr Monet for Dr Miller - History of Present Illness Chief Complaint: face and neck pain History of Present Illness: This is a 53 year old woman with a medical history of CVA with R HP, Parkinson' s disease, HTN, HLD, PVD, asthma, sleep apnea, chronic constipation, ESRD on HD with neuropathy, anemia, DMT2, who presented to the ED 03/04/19 after falling out of her wheelchair when it was forced up a curb, landing on her face. She sustained multiple face/ lip lacerations which were sutured in the ED. CT cervical spine showed no acute pathology without DDD/ DJD. R elbow, R knee, R shoulder XR showed R AC OA without acute injuries. CXR was also negative for acute pathology. CT head showed no acute pathology, with chronic L frontal encephalomalacia and smaller B encephalomalacia/ infarcts, all unchanged since . CT facial bones showed chronic R medial orbital wall fx. Renal was consulted, who continued HD and started Epogen for anemia. Vascular was consulted regarding her RUE AVF, who found it was functioning well and no interventions were needed. Physiatry is being consulted for further recommendations. 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 Cardio/Vascular: Yes: HTN, Hyperlipdemia, Other (Peripheral vascular disease) Pulmonary: Yes: Asthma, Sleep Apnea Gastrointestinal: Yes: Constipation Renal/: Yes: Renal Failure, Hemodialysis ...LMP: 05/18/18 ...: No (no periods recently) Rheumatology: Yes: Other (See HPI) Endocrine: Yes: Diabetes Mellitus - Past Surgical History Past Surgical History: Yes: Amputation, AV Fistula/Graft, - Alcohol/Substance Use Hx Alcohol Use: No - Smoking History Smoking history: Unknown if ever smoked Have you smoked in the past 12 months: No Aproximately how many cigarettes per day: 0 - Social History Usual Living Arrangement: Alone 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: 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, 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) History of Recent Travel: No Home Medications - Allergies Allergies/Adverse Reactions: Allergies Allergy/AdvReac Type Severity Reaction Status Date / Time amoxicillin [Amoxicillin] Allergy Severe Itching Verified 03/04/19 09:47 hydrocodone bitartrate Allergy Severe Hives,ITCHI Verified 03/04/19 09:47 [From Vicodin] NG morphine Allergy Severe Itching Verified 03/04/19 09:47 neomycin [Neomycin] Allergy Severe Swelling Verified 03/04/19 09:47 oxycodone HCl [From Percocet] Allergy Severe Itching,HIV Verified 03/04/19 09:47 ES rofecoxib [From Vioxx] Allergy Severe Hives Verified 03/04/19 09:47 Sulfa (Sulfonamide Allergy Severe sclera Verified 03/04/19 09:47 Antibiotics) reddened,ITCHING tramadol Allergy Severe Vomiting Verified 03/04/19 09:47 tomato Allergy Verified 03/04/19 09:47 grapefruit [Grapefruit] AdvReac Severe CAN'T TAKE Verified 03/04/19 09:47 BECAUSE OF MEDICATIONS vancomycin AdvReac Mild red man Verified 03/04/19 09:47 syndrome Heparin Analogues AdvReac Unknown Verified 03/04/19 09:47 [Heparin Agents] flu shot Allergy Severe GETS FLU Uncoded 03/04/19 09:47 SYMPTOMS grape juice AdvReac Severe Uncoded 03/04/19 09:47 - Home Medications Home Medications: Ambulatory Orders Albuterol 0.083% Nebulizer Bonita [Ventolin 0.083% Nebulizer Soln -] 1 amp NEB DAILY 05/02/18 Amlodipine Besylate [Norvasc -] 10 mg PO DAILY 05/02/18 Aspirin [Aspirin EC] 325 mg PO DAILY 05/02/18 Atorvastatin Ca [Lipitor] 80 mg PO HS 05/02/18 Carvedilol [Coreg -] 25 mg PO BID 05/02/18 Clopidogrel Bisulfate [Plavix] 75 mg PO DAILY 05/02/18 Folic Acid/Vit B Complex and C [Folbee Plus Tablet] 5 mg PO DAILY 05/02/18 Furosemide [Lasix] 40 mg PO BID 05/02/18 Linaclotide [Linzess] 145 mcg PO DAILY 05/02/18 Sennosides [Senna] 17.2 mg GT HS 05/02/18 Sevelamer Carbonate [Renvela -] 800 mg PO TID 05/02/18 Topiramate [Topiramate ER] 50 mg PO BID 05/02/18 clonazePAM [Klonopin -] 0.5 mg PO BID 05/02/18 Albuterol 2.5/Ipratropium 0.5 [Duoneb -] 1 amp NEB Q6H PRN amp 05/22/18 Docusate Sodium [Colace -] 300 mg PO HS capsule 05/22/18 Pimavanserin Tartrate [Nuplazid] 34 mg PO DAILY #30 capsule 05/22/18 Polyethylene Glycol 3350 [Miralax 119 gm Btl -] 17 gm PO BID bottle 05/22/18 Quetiapine Fumarate [Seroquel -] 50 mg PO HS #30 tablet 05/22/18 Vitamin B Comp W-C [Nephro-Robb -] 1 tablet PO DAILY #30 tablet 09/05/18 levETIRAcetam [Keppra -] 750 mg PO BID #90 tablet 09/05/18 Bupropion HCl [Wellbutrin -] 300 mg PO BID 02/18/19 Review of Systems Findings/Remarks: Denies fevers, chills, changes in vision/ hearing/ mood, CP, SOB, abdominal pain , nausea, vomiting, constipation, diarrhea, dysuria. Notes neck and face pain since fall, B hand and foot paresthesias (chronic and unchanged) Physical Exam Vital Signs: Vital Signs Temperature 98 F 03/05/19 09:54 Pulse Rate 75 03/05/19 09:54 Respiratory Rate 18 03/05/19 09:54 Blood Pressure 138/64 03/05/19 09:54 O2 Sat by Pulse Oximetry (%) 100 03/04/19 09:48 Musculoskeletal: Yes: Other (calm AAF sitting in bed NAD, awake and alert, oriented to location, does not consistently answer questions or follow commands appropriately; R shoulder flexion to 60 degrees, 2/5 RUE, 4/5 LUE with L shoulder flexion to 80 degrees, 4/5 LLE and 1/5 RLE, declines RUE ROM 2/2 "bruise"; Pinprick decreased B hands/ feet; +hematoma R eye with R lip swelling ; no BLE pitting edema or B calf tenderness) Labs: CBC, BMP 03/04/19 10:16 03/04/19 10:16 Imaging - Results Chest X-ray: Report Reviewed (as per HPI) X-ray: Report Reviewed (as per HPI) Cat Scan: Report Reviewed (as per HPI) Assessment/Plan Impression: 1) Deficits mobility/ ADLs 2) Gait abnormality 3) Fall out of wheelchair 03/04/19--> face/ lip lacerations 4) Neck pain possibly whiplash/ muscle strain 5) hx CVA with R HP 6) hx Parkinson's disease 7) hx HTN, HLD, PVD 8) hx asthma, sleep apnea 9) Chronic constipation 10) ESRD on HD via RUE AVF 11) Chronic anemia 12) DMT2 with neuropathy 13) R shoulder AC OA 14) Chronic R medial orbital wall fx 15) Obesity 16) Up to date pneumovax, no documented flu shot Recommendations: 1) PT for stretching strengthening ROM and functional mobility 2) Falls, safety precautions 3) Cardiopulmonary precautions 4) Diabetic precautions 5) Ice R face prn, ice neck prn; may start heat neck prn 48 hours after injury ( 03/06/19 @10AM) 6) DVT ppx: on HD 7) Skin protection: float heels, q2 hour turning 8) Denies constipation on current bowel regimen 9) May trial cervical collar when out of bed prn 10) Monitor CBC given anemia 11) Nutrition consult for obesity 12) Continue plan per primary team 13) Discharge planning: she is adamant about wanting to return home with her 24 hour [employer] Thank you for this referral.
--- NOTE | 2019-03-05 16:16 | PN ---
Progress Note, Physician History of Present Illness: Pt seen and examined at bedside. She is awake and alert. She is asking for 3 hours of HD tomorrow. - Current Medication List Current Medications: Active Medications Acetaminophen (Tylenol -) 650 mg PO Q6H PRN PRN Reason: PAIN LEVEL 6-10 Last Admin: 03/04/19 21:19 Dose: 650 mg Amlodipine Besylate (Norvasc -) 10 mg PO DAILY [facility] Last Admin: 03/05/19 10:04 Dose: 10 mg Atorvastatin Calcium (Lipitor -) 80 mg PO HS [facility] Last Admin: 03/04/19 21:09 Dose: 80 mg Bupropion HCl (Wellbutrin Xl -) 300 mg PO DAILY [facility] Last Admin: 03/05/19 10:04 Dose: 300 mg Carvedilol (Coreg -) 25 mg PO BID [facility] Last Admin: 03/05/19 10:04 Dose: 25 mg Clonazepam (Klonopin -) 0.5 mg PO BID PRN PRN Reason: ANXIETY Last Admin: 03/04/19 21:11 Dose: 0.5 mg Levetiracetam (Keppra -) 500 mg PO BID [facility] Last Admin: 03/05/19 10:04 Dose: 500 mg Quetiapine Fumarate (Seroquel -) 50 mg PO HS [facility] Last Admin: 03/04/19 21:07 Dose: 50 mg Sevelamer Carbonate (Renvela -) 800 mg PO TIDCM [facility] Last Admin: 03/05/19 12:18 Dose: 800 mg Topiramate (Topamax -) 50 mg PO BID [facility] Last Admin: 03/05/19 10:03 Dose: 50 mg - Objective Vital Signs: Vital Signs Temperature 98 F 03/05/19 09:54 Pulse Rate 75 03/05/19 09:54 Respiratory Rate 18 03/05/19 09:54 Blood Pressure 138/64 03/05/19 09:54 O2 Sat by Pulse Oximetry (%) 98 03/05/19 09:00 Constitutional: Yes: Calm HENT: Yes: Other (facial trauma) Cardiovascular: Yes: S1, S2 Respiratory: Yes: CTA Bilaterally Gastrointestinal: Yes: Normal Bowel Sounds, Soft Genitourinary: Yes: WNL Musculoskeletal: Yes: WNL Edema: No Neurological: Yes: Oriented Psychiatric: Yes: Oriented Labs: CBC, BMP 03/04/19 10:16 12/09/19 10:16 Problem List - Problems (1) Missed dialysis Code(s): [id number] - (2) Anemia Code(s): D64.9 - ANEMIA, UNSPECIFIED Qualifiers: Chronic kidney disease stage: on chronic dialysis (3) ESRD (end stage renal disease) Code(s): N18.6 - END STAGE RENAL DISEASE Assessment/Plan Current Medications Generic Name Dose Route Start Last Admin Trade Name Freq PRN Reason Stop Dose Admin Acetaminophen 650 mg 03/04/19 20:36 03/04/19 21:19 Tylenol - PO 650 mg Q6H PRN Administration PAIN LEVEL 6-10 Amlodipine Besylate 10 mg 03/05/19 10:00 03/05/19 10:04 Norvasc - PO 10 mg DAILY M[facility]O Administration Atorvastatin Calcium 80 mg 03/04/19 22:00 03/04/19 21:09 Lipitor - PO 80 mg HS M[facility]O Administration Bupropion HCl 300 mg 03/04/19 18:15 03/05/19 10:04 Wellbutrin Xl - PO 300 mg DAILY [facility] Administration Carvedilol 25 mg 03/04/19 22:00 03/05/19 10:04 Coreg - PO 25 mg BID M[facility]O Administration Clonazepam 0.5 mg 03/04/19 14:45 03/04/19 21:11 Klonopin - PO 0.5 mg BID PRN Administration ANXIETY Levetiracetam 500 mg 03/04/19 22:00 03/05/19 10:04 Keppra - PO 500 mg BID MANDO Administration Quetiapine Fumarate 50 mg 03/04/19 22:00 03/04/19 21:07 Seroquel - PO 50 mg HS [facility]O Administration Sevelamer Carbonate 800 mg 03/04/19 17:30 03/05/19 12:18 Renvela - PO 800 mg TIDCM [facility] Administration Topiramate 50 mg 03/04/19 22:00 03/05/19 10:03 Topamax - PO 50 mg BID [facility]O Administration Impression 1. ESRD 2. s/p fall 3. DM 4. HLD 5. HTN 6. anemia 7. anxiety 8. epilepsy Plan - HD tomorrow - no heparin on HD - renal diet - epogen for anemia - 3:45 2 k bath, 15 gauge long needle, abf 425, 3000 epogen - renal diabetic diet
--- NOTE | 2019-03-05 16:18 | CONSULT ---
Consult - text type - Consultation Consultation Note: NEUROSURGERY CONSULTATION Aisha Frankel is a 53 year old female with a long history of multiple medical problems including ESRD for which she is treated with Hemodialysis. She also has a diagnosis of Parkinson's Disease and Right sided Hemiparesis which renders her largely, yet not completely, wheelchair bound. She is able to take some steps with appropriate bracing and a walker. She fell out of her wheelchair on March 04, 2019 when presenting for Hemodialysis. She sustained a laceration to her Right upper lip which was sutured in the ER as well as bruising to her face. CT Head and Cervical spine did not reveal any new pathology mandating acute Neurousurgical intervention. The patient had no loss of consciousness. I encountered the patient on [facility] working with Physical Therapy. Although she did not have her braces, she was standing with assistance. She acknowledges being at her Neurological baseline and requests to go home since she has a 24 hour attendant. Given the lack of findings on the imaging and that she is without complaint and per patient, at her neurological baseline, there is no Neurosurgical contraindication to discharge, particularly to a monitored environment.
[2019-03-05] MEDS ORDERED: ACETAMINOPHEN WITH CODEINE 300MG/30MG TABLET PO ONE (17:10)
[2019-03-05] MEDS ORDERED: QUEtiapine FUMARATE 25 MG TABLET (FP) ONE (21:09)
[2019-03-05] MEDS: QUEtiapine FUMARATE 50 MG TABLET PO SCH (21:37)
[2019-03-05] MEDS: clonazePAM 0.5 MG TABLET PO PRN (21:38)
[2019-03-05] MEDS: ATORVASTATIN CA 80 MG TABLET (FP) PO SCH (21:38)
[2019-03-06] MEDS ORDERED: SODIUM CHLORIDE 250 ML IV PRN (08:00)
[2019-03-06] MEDS ORDERED: EPOETIN ALFA 3,000 UNIT/1 ML ML IVPUSH ONE (08:00)
[2019-03-06] MEDS: SEVELAMER CARBONATE 800 MG TAB (FP) PO SCH ×3 (08:13→18:36)
[2019-03-06 09:10] LABS: BASO % 0.5 % (0-2.0); EOS % 3.3 % (0-4.5); HEMATOCRIT 30.8 % (32.4-45.2); HEMOGLOBIN 10.1 GM/dL (10.7-15.3); LYMPH % 32.4 % (8-40); MCH 33.9 pg (25.7-33.7); MCHC 32.8 g/dl (32.0-36.0); MEAN CELL VOLUME 103.3 fl (80-96); MEAN PLT VOLUME 9.2 fl (7.5-11.1); MONO % 7.7 % (3.8-10.2); NEUT % 56.1 % (42.8-82.8); PLATELET COUNT 146 K/MM3 (134-434); RBC 2.98 M/mm3 (3.60-5.2); RDW 14.5 % (11.6-15.6); WHITE BLOOD COUNT 4.7 K/mm3 (4.0-10.0)
[2019-03-06 09:38] LABS: ALBUMIN 3.2 g/dl (3.4-5.0); BILIRUBIN,TOTAL 0.5 mg/dL (0.2-1); CALCIUM 9.2 mg/dL (8.5-10.1); POTASSIUM 3.7 mmol/L (3.5-5.1); TOT PROT 6.2 g/dl (6.4-8.2)
--- NOTE | 2019-03-06 09:43 | PN ---
Progress Note, Physician - Current Medication List Current Medications: Active Medications Acetaminophen (Tylenol -) 650 mg PO Q6H PRN PRN Reason: PAIN LEVEL 6-10 Last Admin: 03/04/19 21:19 Dose: 650 mg Amlodipine Besylate (Norvasc -) 10 mg PO DAILY [facility] Last Admin: 03/05/19 10:04 Dose: 10 mg Atorvastatin Calcium (Lipitor -) 80 mg PO HS [facility] Last Admin: 03/05/19 21:38 Dose: 80 mg Bupropion HCl (Wellbutrin Xl -) 300 mg PO DAILY [facility] Last Admin: 03/05/19 10:04 Dose: 300 mg Carvedilol (Coreg -) 25 mg PO BID [facility] Last Admin: 03/05/19 21:38 Dose: 25 mg Clonazepam (Klonopin -) 0.5 mg PO BID PRN PRN Reason: ANXIETY Last Admin: 03/05/19 21:38 Dose: 0.5 mg Levetiracetam (Keppra -) 500 mg PO BID [facility] Last Admin: 03/05/19 21:38 Dose: 500 mg Quetiapine Fumarate (Seroquel -) 50 mg PO HS [facility] Last Admin: 03/05/19 21:37 Dose: 50 mg Sevelamer Carbonate (Renvela -) 800 mg PO TIDCM [facility] Last Admin: 03/06/19 08:13 Dose: 800 mg Topiramate (Topamax -) 50 mg PO BID [facility] Last Admin: 03/05/19 21:36 Dose: 50 mg - Objective Vital Signs: Vital Signs Temperature 97.8 F 03/06/19 08:25 Pulse Rate 66 03/06/19 09:30 Respiratory Rate 18 03/06/19 09:30 Blood Pressure 129/82 03/06/19 09:30 O2 Sat by Pulse Oximetry (%) 98 03/05/19 21:00 HENT: Yes: Other (APRASIONS AND SWELLING NOTED) Cardiovascular: Yes: S1, S2 Respiratory: Yes: Regular, CTA Bilaterally Gastrointestinal: Yes: Normal Bowel Sounds, Soft Labs: CBC, BMP 03/06/19 08:55 03/06/19 08:55 Assessment/Plan - Problems (1) Missed dialysis Assessment/Plan: HD per renal dr beatriz skelton noted renvela procrit with HD Code(s): [id number] - (2) Status post fall Assessment/Plan: hold aspirin and plavix facial CT,head and neck noted -no fx ns consult Code(s): Z91.81 - HISTORY OF FALLING (3) Complex partial seizure Assessment/Plan: seizure meds Code(s): G40.209 - LOCAL-REL SYMPTC EPI W CMPLX PRT SEIZ,NOT NTRCT,W/O STAT EPI Qualifiers: Epilepsy type: partial symptomatic (4) Fall Assessment/Plan: PT eval scd pain control tetanus shot given Code(s): W19.XXXA - UNSPECIFIED FALL, INITIAL ENCOUNTER Qualifiers: Encounter type: initial encounter Qualified Code(s): W19.XXXA - Unspecified fall, initial encounter
[2019-03-06 09:47] LABS: CREATININE 8.2 mg/dL (0.55-1.3)
[2019-03-06] MEDS: levETIRAcetam 500 MG TABLET (FP) PO SCH ×2 (12:09→22:03)
[2019-03-06] MEDS: CARVEDILOL 25 MG TABLET (FP) PO SCH ×2 (12:09→22:03)
[2019-03-06] MEDS: clonazePAM 0.5 MG TABLET PO PRN (12:09)
[2019-03-06] MEDS: amLODIPine BESYLATE 10 MG TABLET (FP) PO SCH (12:10)
[2019-03-06] MEDS: TOPIRAMATE 25 MG TABLET (FP) PO SCH ×2 (12:10→22:02)
[2019-03-06 12:31] LABS: BLOOD UREA NITROGEN 12.6 mg/dL (7-18); CREATININE 3.4 mg/dL (0.55-1.3)
--- NOTE | 2019-03-06 13:19 | PN ---
Progress Note, Physician History of Present Illness: Pt seen and examined at bedside. She is awake and alert. She is tolerating HD. - Current Medication List Current Medications: Active Medications Acetaminophen (Tylenol -) 650 mg PO Q6H PRN PRN Reason: PAIN LEVEL 6-10 Last Admin: 03/04/19 21:19 Dose: 650 mg Amlodipine Besylate (Norvasc -) 10 mg PO DAILY [facility] Last Admin: 03/06/19 12:10 Dose: 10 mg Atorvastatin Calcium (Lipitor -) 80 mg PO HS [facility] Last Admin: 03/05/19 21:38 Dose: 80 mg Bupropion HCl (Wellbutrin Xl -) 300 mg PO DAILY [facility] Last Admin: 03/06/19 12:09 Dose: 300 mg Carvedilol (Coreg -) 25 mg PO BID [facility] Last Admin: 03/06/19 12:09 Dose: 25 mg Clonazepam (Klonopin -) 0.5 mg PO BID PRN PRN Reason: ANXIETY Last Admin: 03/06/19 12:09 Dose: 0.5 mg Levetiracetam (Keppra -) 500 mg PO BID [facility] Last Admin: 03/06/19 12:09 Dose: 500 mg Quetiapine Fumarate (Seroquel -) 50 mg PO HS [facility] Last Admin: 03/05/19 21:37 Dose: 50 mg Sevelamer Carbonate (Renvela -) 800 mg PO TIDCM [facility] Last Admin: 03/06/19 12:10 Dose: 800 mg Topiramate (Topamax -) 50 mg PO BID [facility] Last Admin: 03/06/19 12:10 Dose: 50 mg - Objective Vital Signs: Vital Signs Temperature 98.4 F 03/06/19 12:12 Pulse Rate 74 03/06/19 12:12 Respiratory Rate 18 03/06/19 12:12 Blood Pressure 133/79 03/06/19 12:12 O2 Sat by Pulse Oximetry (%) 98 03/05/19 21:00 Constitutional: Yes: Calm Eyes: Yes: Conjunctiva Clear HENT: Yes: Atraumatic Cardiovascular: Yes: S1, S2 Respiratory: Yes: CTA Bilaterally Gastrointestinal: Yes: Soft Genitourinary: Yes: Incontinence Musculoskeletal: Yes: WNL Edema: Yes Edema: LLE: Trace, RLE: Trace Neurological: Yes: Oriented Psychiatric: Yes: Oriented Labs: CBC, BMP 03/06/19 08:55 03/06/19 11:30 Problem List - Problems (1) Missed dialysis Code(s): [id number] - (2) Anemia Code(s): D64.9 - ANEMIA, UNSPECIFIED Qualifiers: Chronic kidney disease stage: on chronic dialysis (3) ESRD (end stage renal disease) Code(s): N18.6 - END STAGE RENAL DISEASE Assessment/Plan Current Medications Generic Name Dose Route Start Last Admin Trade Name Freq PRN Reason Stop Dose Admin Acetaminophen 650 mg 03/04/19 20:36 03/04/19 21:19 Tylenol - PO 650 mg Q6H PRN Administration PAIN LEVEL 6-10 Amlodipine Besylate 10 mg 03/05/19 10:00 03/06/19 12:10 Norvasc - PO 10 mg DAILY [facility] Administration Atorvastatin Calcium 80 mg 03/04/19 22:00 03/05/19 21:38 Lipitor - PO 80 mg HS [facility] Administration Bupropion HCl 300 mg 03/04/19 18:15 03/06/19 12:09 Wellbutrin Xl - PO 300 mg DAILY [facility] Administration Carvedilol 25 mg 03/04/19 22:00 03/06/19 12:09 Coreg - PO 25 mg BID [facility] Administration Clonazepam 0.5 mg 03/04/19 14:45 03/06/19 12:09 Klonopin - PO 0.5 mg BID PRN Administration ANXIETY Levetiracetam 500 mg 03/04/19 22:00 03/06/19 12:09 Keppra - PO 500 mg BID [facility] Administration Quetiapine Fumarate 50 mg 03/04/19 22:00 03/05/19 21:37 Seroquel - PO 50 mg HS [facility] Administration Sevelamer Carbonate 800 mg 03/04/19 17:30 03/06/19 12:10 Renvela - PO 800 mg TIDCM [facility] Administration Topiramate 50 mg 03/04/19 22:00 03/06/19 12:10 Topamax - PO 50 mg BID [facility] Administration Impression 1. ESRD 2. s/p fall 3. DM 4. HLD 5. HTN 6. anemia 7. anxiety 8. epilepsy Plan - HD today - vascular follow up as outpt - no heparin on HD - renal diet - epogen for anemia - 3:45 2 k bath, 15 gauge long needle, abf 425, 3000 epogen
[2019-03-06] MEDS ORDERED: QUEtiapine FUMARATE 25 MG TABLET (FP) ONE (21:46)
[2019-03-06] MEDS: QUEtiapine FUMARATE 50 MG TABLET PO SCH (22:02)
[2019-03-06] MEDS: ATORVASTATIN CA 80 MG TABLET (FP) PO SCH (22:02)
--- NOTE | 2019-03-07 08:31 | CON.ENT ---
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, states vision in left eye lost after cataract surgery) c/o ear problems with cerumen, mother cleans it, some hearing change - History Source History Provided By: Patient, Family Member, Medical Record Limitations to Obtaining History: No Limitations - 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 Cardio/Vascular: Yes: HTN, Hyperlipdemia, Other (Peripheral vascular disease) Pulmonary: Yes: Asthma, Sleep Apnea Gastrointestinal: Yes: Constipation Renal/: Yes: Renal Failure, Hemodialysis ...LMP: 05/18/18 ...: No (no periods recently) Rheumatology: Yes: Other (See HPI) Endocrine: Yes: Diabetes Mellitus - Past Surgical History Past Surgical History: Yes: Amputation, AV Fistula/Graft, - Alcohol/Substance Use Hx Alcohol Use: No - Smoking History Smoking history: Unknown if ever smoked Have you smoked in the past 12 months: No Aproximately how many cigarettes per day: 0 - Social History Usual Living Arrangement: Alone ADL: Support Services (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, 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) History of Recent Travel: No Home Medications - Allergies Allergies/Adverse Reactions: Allergies Allergy/AdvReac Type Severity Reaction Status Date / Time amoxicillin [Amoxicillin] Allergy Severe Itching Verified 03/04/19 09:47 hydrocodone bitartrate Allergy Severe Hives,ITCHI Verified 03/04/19 09:47 [From Vicodin] NG morphine Allergy Severe Itching Verified 03/04/19 09:47 neomycin [Neomycin] Allergy Severe Swelling Verified 03/04/19 09:47 oxycodone HCl [From Percocet] Allergy Severe Itching,HIV Verified 03/04/19 09:47 ES rofecoxib [From Vioxx] Allergy Severe Hives Verified 03/04/19 09:47 Sulfa (Sulfonamide Allergy Severe sclera Verified 03/04/19 09:47 Antibiotics) reddened,ITCHING tramadol Allergy Severe Vomiting Verified 03/04/19 09:47 tomato Allergy Verified 03/04/19 09:47 grapefruit [Grapefruit] AdvReac Severe CAN'T TAKE Verified 03/04/19 09:47 BECAUSE OF MEDICATIONS vancomycin AdvReac Mild red man Verified 03/04/19 09:47 syndrome Heparin Analogues AdvReac Unknown Verified 03/04/19 09:47 [Heparin Agents] flu shot Allergy Severe GETS FLU Uncoded 03/04/19 09:47 SYMPTOMS grape juice AdvReac Severe Uncoded 03/04/19 09:47 - Home Medications Home Medications: Ambulatory Orders Albuterol 0.083% Nebulizer Bonita [Ventolin 0.083% Nebulizer Soln -] 1 amp NEB DAILY 05/02/18 Amlodipine Besylate [Norvasc -] 10 mg PO DAILY 05/02/18 Aspirin [Aspirin EC] 325 mg PO DAILY 05/02/18 Atorvastatin Ca [Lipitor] 80 mg PO HS 05/02/18 Carvedilol [Coreg -] 25 mg PO BID 05/02/18 Clopidogrel Bisulfate [Plavix] 75 mg PO DAILY 05/02/18 Folic Acid/Vit B Complex and C [Folbee Plus Tablet] 5 mg PO DAILY 05/02/18 Furosemide [Lasix] 40 mg PO BID 05/02/18 Linaclotide [Linzess] 145 mcg PO DAILY 05/02/18 Sennosides [Senna] 17.2 mg GT HS 05/02/18 Sevelamer Carbonate [Renvela -] 800 mg PO TID 05/02/18 Topiramate [Topiramate ER] 50 mg PO BID 05/02/18 clonazePAM [Klonopin -] 0.5 mg PO BID 05/02/18 Albuterol 2.5/Ipratropium 0.5 [Duoneb -] 1 amp NEB Q6H PRN amp 05/22/18 Docusate Sodium [Colace -] 300 mg PO HS capsule 05/22/18 Pimavanserin Tartrate [Nuplazid] 34 mg PO DAILY #30 capsule 05/22/18 Polyethylene Glycol 3350 [Miralax 119 gm Btl -] 17 gm PO BID bottle 05/22/18 Quetiapine Fumarate [Seroquel -] 50 mg PO HS #30 tablet 05/22/18 Vitamin B Comp W-C [Nephro-Robb -] 1 tablet PO DAILY #30 tablet 09/05/18 levETIRAcetam [Keppra -] 750 mg PO BID #90 tablet 09/05/18 Bupropion HCl [Wellbutrin -] 300 mg PO BID 02/18/19 Review of Systems - Review of Systems Eyes: reports: Blurred Vision, Other (poor vision) HENT: reports: Hearing Loss Physical Exam-ENT Vital Signs: Vital Signs Temperature 98.5 F 03/07/19 06:00 Pulse Rate 71 03/07/19 06:00 Respiratory Rate 18 03/07/19 06:00 Blood Pressure 137/73 03/07/19 06:00 O2 Sat by Pulse Oximetry (%) 97 03/06/19 21:00 Constitutional: Yes: No Distress, Calm Face: Yes: TMJ Clicking (right side, mild), Other (abrasion with crusting right brow, vermilion right ala and upper lip, mild edema facial bone palpation shows no stepoff or deformity) Eyes: Yes: Other (exophthalmos) Nasal Passage: Yes: Other (deviated septum to left) Outer Ear: Yes: WNL Ear Canal: Yes: Cerumen Neck: Yes: WNL Imaging - Results Cat Scan: Report Reviewed Problem List - Problems (1) Facial laceration Assessment/Plan: facial abrasions noted after fall Recommmend: Bacitracin ointment to facial abrasions bid Code(s): S01.81XA - LACERATION W/O FOREIGN BODY OF OTH PART OF HEAD, INIT ENCNTR Qualifiers: Encounter type: initial encounter Qualified Code(s): S01.81XA - Laceration without foreign body of other part of head, initial encounter (2) Visual loss Assessment/Plan: outpatient ophthalmology follow-up no change in vision reported with recent injury Code(s): H54.7 - UNSPECIFIED VISUAL LOSS
[2019-03-07] MEDS: levETIRAcetam 500 MG TABLET (FP) PO SCH (09:31)
[2019-03-07] MEDS: TOPIRAMATE 25 MG TABLET (FP) PO SCH (09:31)
[2019-03-07] MEDS: SEVELAMER CARBONATE 800 MG TAB (FP) PO SCH ×2 (09:31→13:00)
[2019-03-07] MEDS: CARVEDILOL 25 MG TABLET (FP) PO SCH (09:31)
[2019-03-07] MEDS: clonazePAM 0.5 MG TABLET PO PRN (09:31)
[2019-03-07] MEDS: amLODIPine BESYLATE 10 MG TABLET (FP) PO SCH (09:32)
--- NOTE | 2019-03-07 10:42 | DS ---
Physical Examination Vital Signs: Vital Signs Temperature 98.7 F 03/07/19 09:38 Pulse Rate 73 03/07/19 09:38 Respiratory Rate 16 03/07/19 09:38 Blood Pressure 136/70 03/07/19 09:38 O2 Sat by Pulse Oximetry (%) 97 03/06/19 21:00 Constitutional: Yes: Calm HENT: Yes: Other (facial swelling reduced, eyelid sweling and lip swelling facial bruising) Cardiovascular: Yes: Regular Rate and Rhythm, S1, S2 Respiratory: Yes: CTA Bilaterally Gastrointestinal: Yes: Normal Bowel Sounds, Soft Neurological: Yes: Alert, Oriented Labs: CBC, BMP 03/06/19 08:55 03/06/19 11:30 Discharge Summary Problems reviewed: No Reason For Visit: MISSED DIALYSIS,LACERATION,PAIN,FACIAL INJURY Current Active Problems Facial laceration (Acute) Missed dialysis (Acute) Status post fall (Acute) Visual loss (Acute) Other Procedures: facial CT chronic right orbital mediAL wall fracture. ct NECK no fracture seen Hospital Course: PCP: Emani Rosales A - Admission Chief Complaint: s/p fall History of Present Illness: 53-year-old female history of end-stage renal disease hypertension hyperlipidemia Parkinson's with severe right-sided weakness mostly wheelchair- bound however does occasionally ambulate with a walker has 24-hour home health assistance here today status post a fall out of her wheelchair. Patient states she was coming in for an appointment to [facility] with Dr. Ch subsequently as a wheelchair went over the curb she was thrust forward onto the ground landing on her face sustaining multiple abrasions and a laceration to her upper lip denies LOC however the patient is currently on aspirin and Plavix patient also supposed to get her HD session today in ER lip laceration stitched Health Concerns: PCP: Emani Rosales A - Admission Chief Complaint: s/p fall History of Present Illness: 53-year-old female history of end-stage renal disease hypertension hyperlipidemia Parkinson's with severe right-sided weakness mostly wheelchair- bound however does occasionally ambulate with a walker has 24-hour home health assistance here today status post a fall out of her wheelchair. Patient states she was coming in for an appointment to [facility] with Dr. Ch subsequently as a wheelchair went over the curb she was thrust forward onto the ground landing on her face sustaining multiple abrasions and a laceration to her upper lip denies LOC however the patient is currently on aspirin and Plavix patient also supposed to get her HD session today in ER lip laceration stitched patient got HD, seen by ENT and ANJU PT saw patient apply bacitracin to the facial lacerations Condition: Stable - Instructions Referrals: Emani Rosales [Primary Care Provider] - Disposition: HOME - Home Medications Comprehensive Discharge Medication List: Ambulatory Orders Albuterol 0.083% Nebulizer Bonita [Ventolin 0.083% Nebulizer Soln -] 1 amp NEB DAILY 05/02/18 Amlodipine Besylate [Norvasc -] 10 mg PO DAILY 05/02/18 Aspirin [Aspirin EC] 325 mg PO DAILY 05/02/18 Atorvastatin Ca [Lipitor] 80 mg PO HS 05/02/18 Carvedilol [Coreg -] 25 mg PO BID 05/02/18 Clopidogrel Bisulfate [Plavix] 75 mg PO DAILY 05/02/18 Furosemide [Lasix] 40 mg PO 05/02/18 Linaclotide [Linzess] 145 mcg PO PRN 05/02/18 Sennosides [Senna] 17.2 mg PO HS 05/02/18 Sevelamer Carbonate [Renvela -] 800 mg PO TID 05/02/18 Topiramate [Topiramate ER] 50 mg PO BID 05/02/18 clonazePAM [Klonopin -] 0.5 mg PO BID 05/02/18 Albuterol 2.5/Ipratropium 0.5 [Duoneb -] 1 amp NEB Q6H PRN amp 05/22/18 Pimavanserin Tartrate [Nuplazid] 34 mg PO DAILY #30 capsule 05/22/18 levETIRAcetam [Keppra -] 750 mg PO BID #90 tablet 09/05/18 Bupropion HCl [Wellbutrin -] 300 mg PO BID 02/18/19 Hydralazine HCl 50 mg PO BID 03/07/19 Polyethylene Glycol 3350 [Miralax 119 gm Btl -] 17 gm PO DAILY PRN 03/07/19 Quetiapine Fumarate [Seroquel -] 50 mg PO HS 03/07/19
--- NOTE | 2019-03-07 13:45 | PN ---
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
[2019-03-07 15:45] VITALS: BP 127/72; PULSE 76; TEMP 98.2
--- NOTE | 2019-03-07 16:11 | PN ---
Progress Note, Physician History of Present Illness: Pt seen and examined at bedside. She is awake and alert. She is going home today. - Objective Vital Signs: Vital Signs Temperature 98.2 F 03/07/19 15:00 Pulse Rate 76 03/07/19 15:00 Respiratory Rate 16 03/07/19 15:00 Blood Pressure 127/72 03/07/19 15:00 O2 Sat by Pulse Oximetry (%) 97 03/07/19 09:00 Constitutional: Yes: Calm Cardiovascular: Yes: S1, S2 Respiratory: Yes: CTA Bilaterally Gastrointestinal: Yes: Normal Bowel Sounds, Soft Genitourinary: Yes: WNL Musculoskeletal: Yes: WNL Edema: LLE: Trace, RLE: Trace Neurological: Yes: Oriented Psychiatric: Yes: Oriented Labs: CBC, BMP 03/06/19 08:55 03/06/19 11:30 Problem List - Problems (1) Missed dialysis Code(s): TER7526 - (2) Anemia Code(s): D64.9 - ANEMIA, UNSPECIFIED Qualifiers: Chronic kidney disease stage: on chronic dialysis (3) ESRD (end stage renal disease) Code(s): N18.6 - END STAGE RENAL DISEASE Assessment/Plan Impression 1. ESRD 2. s/p fall 3. DM 4. HLD 5. HTN 6. anemia 7. anxiety 8. epilepsy Plan - pt had HD yesterday - her HD is set up as outpt - pt lives with her mother, discussed care with mom - renal diet - epogen for anemia - 3:45 2 k bath, 15 gauge long needle, abf 425, 3000 epogen
== END 2019-03-07 16:00 | disposition home or self-care (01) | DRG 604 ==
LOC: JER 09:31 → JERBED 11:52 → J5S 18:16
PROVIDERS: ADMIT Student in an Organized Health Care Education/Training Program; ATTEND Student in an Organized Health Care Education/Training Program
PROC: 0HQ6XZZ Repair Back Skin, External Approach (ICD-10-PCS; principal; 2019-03-04)
PROC: 5A1D70Z Performance of Urinary Filtration, Intermittent, Less than 6 Hours Per Day (ICD-10-PCS; 2019-03-06)
PROC: 5A1D70Z Performance of Urinary Filtration, Intermittent, Less than 6 Hours Per Day (ICD-10-PCS; 2019-03-06)
DX: S00.83XA Contusion of other part of head, initial encounter (principal); N18.6 End stage renal disease; S02.831A Fracture of medial orbital wall, right side, initial encounter for closed fracture; I12.0 Hypertensive chronic kidney disease with stage 5 chronic kidney disease or end stage renal disease; I69.351 Hemiplegia and hemiparesis following cerebral infarction affecting right dominant side; G40.209 Localization-related (focal) (partial) symptomatic epilepsy and epileptic syndromes with complex partial seizures, not intractable, without status epilepticus; S01.511A Laceration without foreign body of lip, initial encounter; E11.22 Type 2 diabetes mellitus with diabetic chronic kidney disease; E78.5 Hyperlipidemia, unspecified; D50.9 Iron deficiency anemia, unspecified; G20 Parkinson's disease; J45.909 Unspecified asthma, uncomplicated; K21.9 Gastro-esophageal reflux disease without esophagitis; F41.9 Anxiety disorder, unspecified; S71.011A Laceration without foreign body, right hip, initial encounter; D63.8 Anemia in other chronic diseases classified elsewhere; E11.40 Type 2 diabetes mellitus with diabetic neuropathy, unspecified; H54.8 Legal blindness, as defined in USA; S00.81XA Abrasion of other part of head, initial encounter; E11.51 Type 2 diabetes mellitus with diabetic peripheral angiopathy without gangrene; H40.9 Unspecified glaucoma; R26.9 Unspecified abnormalities of gait and mobility; H54.7 Unspecified visual loss; G47.30 Sleep apnea, unspecified; E66.9 Obesity, unspecified; Z68.35 Body mass index [BMI] 35.0-35.9, adult; K59.09 Other constipation; W05.0XXA Fall from non-moving wheelchair, initial encounter; Y92.89 Other specified places as the place of occurrence of the external cause; Z99.2 Dependence on renal dialysis; Z99.3 Dependence on wheelchair; Z91.81 History of falling
CPT/HCPCS: 36415; 70450-TC; 70486-TC; 71045-TC-FY; 72125-TC; 73030-TC-RT-FY; 73070-TC-RT-FY; 73562-TC-RT-FY; 80053; 82565; 84520; 85025; 86803; 87340; 90715; 93005; 93010; 97116-GP; 97162-GP; 99283-25; J0885

== ENCOUNTER 2019-05-21 13:05 | Emergency (ER) | payer OTHER ==
[2019-05-21 13:30] VITALS: BMI 33.4
--- NOTE | 2019-05-21 13:34 | PDOC ---
History of Present Illness - General Chief Complaint: Rectal Bleed Stated Complaint: RECTAL BLEED Time Seen by Provider: 05/21/19 13:33 History Source: Patient Exam Limitations: No Limitations - History of Present Illness Initial Comments: 05/21/19 13:33 Aisha Frankel is a 53F with PMH NIDDM, ESRD (MWF HD), Parkinson disease, CVA ( Residual R sided weakness), NIDDM, iron deficiency anemia, HLD, asthma presenting with painless rectal bleeding. Has 24 hour home health aide. Today patient had BM after breakfast, home health aide reports brown/black stool with streaks of red, toilet bowl not bloody. 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 Has never had rectal bleeding before. Patient denies straining or pain with BM, has history of hemorrhoids but never rectal bleeding. Denies gross hematochezia or melena. Reports feeling dizzy but denies SOB, chest pain, palpitations. Having lower abdominal pain, denies any N/ V, hematemesis, F/C, urinary symptoms. Only abdominal surgery is 27 years ago without complications. Tolerating PO, had waffles foe breakfast prior to BM. Last HD yesterday, tolerated well. Past History - Past Medical History Allergies/Adverse Reactions: Allergies Allergy/AdvReac Type Severity Reaction Status Date / Time amoxicillin [Amoxicillin] Allergy Severe Itching Verified 05/21/19 13:30 hydrocodone bitartrate Allergy Severe Hives,ITCHI Verified 05/21/19 13:30 [From Vicodin] NG morphine Allergy Severe Itching Verified 05/21/19 13:30 neomycin [Neomycin] Allergy Severe Swelling Verified 05/21/19 13:30 oxycodone HCl [From Percocet] Allergy Severe Itching,HIV Verified 05/21/19 13:30 ES rofecoxib [From Vioxx] Allergy Severe Hives Verified 05/21/19 13:30 Sulfa (Sulfonamide Allergy Severe sclera Verified 05/21/19 13:30 Antibiotics) reddened,ITCHING tramadol Allergy Severe Vomiting Verified 05/21/19 13:30 tomato Allergy Verified 05/21/19 13:30 grapefruit [Grapefruit] AdvReac Severe CAN'T TAKE Verified 05/21/19 13:30 BECAUSE OF MEDICATIONS vancomycin AdvReac Mild red man Verified 05/21/19 13:30 syndrome Heparin Analogues AdvReac Unknown Verified 05/21/19 13:30 [Heparin Agents] flu shot Allergy Severe GETS FLU Uncoded 05/21/19 13:30 SYMPTOMS grape juice AdvReac Severe Uncoded 05/21/19 13:30 Home Medications: Ambulatory Orders Albuterol 0.083% Nebulizer Bonita [Ventolin 0.083% Nebulizer Soln -] 1 amp NEB DAILY 05/02/18 Amlodipine Besylate [Norvasc -] 10 mg PO DAILY 05/02/18 Aspirin [Aspirin EC] 325 mg PO DAILY 05/02/18 Atorvastatin Ca [Lipitor] 80 mg PO HS 05/02/18 Carvedilol [Coreg -] 25 mg PO BID 05/02/18 Clopidogrel Bisulfate [Plavix] 75 mg PO DAILY 05/02/18 Furosemide [Lasix] 40 mg PO DAILY 05/02/18 Linaclotide [Linzess] 145 mcg PO DAILY PRN 05/02/18 Sennosides [Senna] 17.2 mg PO HS 05/02/18 Sevelamer Carbonate [Renvela -] 800 mg PO TID 05/02/18 Topiramate [Topiramate ER] 50 mg PO BID 05/02/18 clonazePAM [Klonopin -] 0.5 mg PO BID 05/02/18 Albuterol 2.5/Ipratropium 0.5 [Duoneb -] 1 amp NEB Q6H PRN amp 05/22/18 Pimavanserin Tartrate [Nuplazid] 34 mg PO DAILY #30 capsule 05/22/18 levETIRAcetam [Keppra -] 750 mg PO BID #90 tablet 09/05/18 Bupropion HCl [Wellbutrin -] 300 mg PO BID 02/18/19 Bacitracin - [Bacitracin Topical Ointment -] 1 applic TP BID #1 tube 03/07/19 Hydralazine HCl 50 mg PO BID 03/07/19 Polyethylene Glycol 3350 [Miralax 119 gm Btl -] 17 gm PO DAILY PRN 03/07/19 Quetiapine Fumarate [Seroquel -] 50 mg PO HS 03/07/19 Ondansetron [Zofran *Odt*] 4 mg SL TID PRN #21 od.tablet 05/21/19 Anemia: Yes Asthma: Yes Cancer: No Cardiac Disorders: No CVA: Yes COPD: No CHF: No Dementia: No Diabetes: Yes Dialysis: Yes (m,w,f) GI Disorders: Yes (gerd) Disorders: No HTN: Yes Hypercholesterolemia: Yes Liver Disease: No Psychiatric Problems: Yes (ANXIETY.) Seizures: Yes Thyroid Disease: No - Surgical History Abdominal Surgery: No Appendectomy: No Cardiac Surgery: Yes (AV graft right arm) Cholecystectomy: No Lung Surgery: No Neurologic Surgery: No Orthopedic Surgery: No - Immunization History Td Vaccination: No TDAP Vaccination: No Immunization Up to Date: Yes - Psycho Social/Smoking Cessation Hx Smoking Status: No Smoking History: Never smoked Have you smoked in the past 12 months: No Number of Cigarettes Smoked Daily: 0 Information on smoking cessation initiated: No Hx Alcohol Use: No Drug/Substance Use Hx: No Substance Use Type: None Hx Substance Use Treatment: No Review of Systems - Review of Systems Able to Perform ROS?: Yes Constitutional: No: Chills, Fever HEENTM: No: Eye Pain, Blurred Vision, Recent change in vision, Nose Pain, Hearing Loss, Throat Pain Respiratory: No: Cough, Shortness of Breath, Wheezing Cardiac (ROS): No: Chest Pain, Edema, Lightheadedness, Palpitations, Syncope, Chest Tightness ABD/GI: Yes: Rectal Bleeding. No: Constipated, Diarrhea, Nausea, Poor Appetite , Poor Fluid Intake, Vomiting : No: Symptoms Reported Musculoskeletal: No: Symptoms Reported Integumentary: No: Symptoms Reported Neurological: No: Symptoms reported Endocrine: No: Symptoms Reported Hematologic/Lymphatic: No: Symptoms Reported All Other Systems: Reviewed and Negative *Physical Exam - Vital Signs Last Vital Signs Temp Pulse Resp BP Pulse Ox 98 F 71 19 158/85 100 05/21/19 13:27 05/21/19 13:27 05/21/19 13:27 05/21/19 13:05/21/19 13:27 - Physical Exam General Appearance: Yes: Nourished, Appropriately Dressed, Obese. No: Apparent Distress HEENT: positive: EOMI, MISA, Normal ENT Inspection, Normal Voice, Symmetrical, Pharynx Normal. negative: Scleral Icterus (R), Scleral Icterus (L), Pharyngeal Erythema, Tonsillar Exudate, Tonsillar Erythema Neck: positive: Trachea midline, Normal Thyroid, Supple. negative: Tender, Lymphadenopathy (R), Lymphadenopathy (L) Respiratory/Chest: positive: Lungs Clear, Normal Breath Sounds. negative: Chest Tender, Respiratory Distress, Accessory Muscle Use, Crackles, Rales, Rhonchi, Stridor, Wheezing Cardiovascular: positive: Regular Rhythm, Regular Rate. negative: Murmur Gastrointestinal/Abdominal: positive: Tender (lower abd pain, suprapubic, L>R pain to palpation), Flat, Soft Rectal Exam: positive: normal exam, normal rectal tone, heme positive stool, hemorrhoids (small external hernia at 12oclock), other (no active bleeding, no melena, no hematochezia) Musculoskeletal: positive: Normal Inspection, Other. negative: CVA Tenderness Extremity: positive: Normal Capillary Refill, Normal Inspection, Normal Range of Motion, Pelvis Stable, Other (AV fistula in R AC patent with bruit, upper extremities mildly contracted). negative: Pedal Edema, Swelling Integumentary: positive: Normal Color, Dry, Warm Neurologic: positive: Fully Oriented, Alert, Normal Mood/Affect, Normal Response ED Treatment Course - LABORATORY CBC & Chemistry Diagram: 05/21/19 14:15 05/21/19 14:15 Medical Decision Making - Medical Decision Making 05/21/19 15:26 Patient has history of ESRD on MWF HD, hemorrhoids, anemia presents with first time painless rectal bleeding and LLQ abd pain. Non-tachycardia, normotensive. Blood present on underwear, rectal exam shows external hemorrhoid with brown stool with pink tinge, no active bleeding. Presentation immediately concerning for diverticulosis, internal hemorrhoid, lower suspicion of AVM or malignancy. - CMP for eval lytes - CBC for eval Hgb, infection - TS for possible transfusion - Coags for eval bleeding - CTAP with PO contrast only for eval abdominal pain, no IV contrast given ESRD 05/21/19 15:31 Labs notable for: - CBC WNL, no anemia - FOBT + - Coags WNL - Cr 6.1, WNL for patient - Remaining CMP WNL 05/21/19 18:28 CT scan read as mild diverticulosis without diverticulitis. Also has incidental soft tissue stranding along inside of abdomen and pelvis, not concerning at this time. Stable for discharge home with PMD and GI f/u. Sending home with Zofran Rx for nausea with meals. Discharge - Discharge Information Problems reviewed: Yes Clinical Impression/Diagnosis: ESRD (end stage renal disease), Rectal bleeding Abdominal pain Qualifiers: Abdominal location: left lower quadrant Qualified Code(s): R10.32 - Left lower quadrant pain Condition: Stable Disposition: HOME - Admission No - Additional Discharge Information Prescriptions: Ondansetron [Zofran *Odt*] 4 mg SL TID PRN #21 od.tablet PRN Reason: Nausea - Follow up/Referral Referrals: Sebastián Parr MD [Primary Care Provider] - Viet Cartwright MD [Staff Physician] - Tay Elder DO [Staff Physician] - - Patient Discharge Instructions Patient Printed Discharge Instructions: DI for Hemorrhoids, DI for Rectal Bleeding, DI for Diverticulosis Additional Instructions: Today you were evaluated for rectal bleeding likely from diverticulosis or hemorrhoids. Your labs do not show you have lost a lot of blood and you do not have an infection. Your CT scan shows mild diverticulosis, which is pouching of the intestines that can sometimes cause bleeding. There was also the finding of soft tissue stranding inside the abdomen that is not the cause of your bleeding, but needs to be further evaluated. Please follow-up with a GI doctor in the next 3 days for further care, a referral has been given to Dr. Elder, as he may want to perform another colonoscopy. Also see your primary doctor in the next week, and let him know about your weight loss. If you experience worsening abdominal pain, worse bleeding, chest pain, trouble breathing, black stools, dehydration or any other new or concerning symptoms, please return to the emergency room. - Post Discharge Activity
--- NOTE | 2019-05-21 13:58 | PDOC ---
*Physical Exam - Vital Signs Last Vital Signs Temp Pulse Resp BP Pulse Ox 98 F 71 19 158/85 100 05/21/19 13:27 05/21/19 13:27 05/21/19 13:27 05/21/19 13:27 05/21/19 13:27 <NoemiDamion deanica - Last Filed: 05/21/19 18:00> - Vital Signs Last Vital Signs Temp Pulse Resp BP Pulse Ox 97.9 F 75 17 147/76 100 05/21/19 17:11 05/21/19 17:11 05/21/19 17:11 05/21/19 17:11 05/21/19 17:11 <Alaina Welch - Last Filed: 05/21/19 18:39> ED Treatment Course - LABORATORY CBC & Chemistry Diagram: 05/21/19 14:15 05/21/19 14:15 <Lucinda Franklin - Last Filed: 05/21/19 18:00> - LABORATORY CBC & Chemistry Diagram: 05/21/19 14:15 05/21/19 14:15 - ADDITIONAL ORDERS Additional order review: Laboratory Results 05/21/19 05/21/19 05/21/19 14:18 14:15 14:15 PT with INR 12.00 INR 1.02 PTT (Actin FS) 36.3 Sodium Potassium Chloride Carbon Dioxide Anion Gap BUN Creatinine Est GFR (CKD-EPI)AfAm Est GFR (CKD-EPI)NonAf Random Glucose Calcium Total Bilirubin AST ALT Alkaline Phosphatase Total Protein Albumin Stool Occult Blood Positive Blood Type A POSITIVE Antibody Screen Negative 05/21/19 14:15 PT with INR INR PTT (Actin FS) Sodium 137 Potassium 3.8 Chloride 102 Carbon Dioxide 29 Anion Gap 6 L BUN 15.8 Creatinine 6.1 H Est GFR (CKD-EPI)AfAm 8.43 Est GFR (CKD-EPI)NonAf 7.27 Random Glucose 81 Calcium 10.0 Total Bilirubin 0.4 AST 8 L ALT 6 L Alkaline Phosphatase 138 H Total Protein 7.2 Albumin 3.9 Stool Occult Blood Blood Type Antibody Screen 05/21/19 14:15 RBC 3.80 MCV 104.4 H MCHC 32.2 RDW 14.7 MPV 9.7 Neutrophils % 71.3 D Lymphocytes % 16.8 D Monocytes % 7.9 Eosinophils % 3.5 Basophils % 0.5 <Alaina Welch - Last Filed: 05/21/19 18:39> Medical Decision Making - Medical Decision Making 05/21/19 15:10 53 y/o female with a PMHx significant for h/o ESRD (HD on MWF) Parkinson Dz., CVA ( Residual R sided weakness), NIDDM, Iron deficient anemia, HLD, asthma here with one episode of rectal bleed. Department Assistant and mother @ bedside assist in history and note that when patient had a bowel movement this morning her stools were dark with bright red blood. Patient does not c/o abdominal pain. No nausea/vomiting. Last PO intake was two waffles this morng. PE significant for LLQ and suprapubic TTP w/o peritoneal sign. Non-thrombosed hemorrhoid @ 12 o'clock position. No appreciable anal fissure, no active rectal bleed. Blood on stool exam Will evaluate for colitis, diverticulitis, AVM, brisk UGIB, ischemic colitis, hemorrhagic colitis. As patient has h/o ESRD on HD, will refrain from CTAP w/IV contrast, patient tolerating PO able to drink PO contrast 05/21/19 15:56 Labs unremarkable 05/21/19 17:56 Patient reassessed @ bedside. Remains comfortable. My read of CT shows no diverticuli/diverticulitis. Pending formal read will d/c home with GI follow-up <Lucinda Franklin - Last Filed: 05/21/19 18:00> Discharge - Discharge Information Problems reviewed: Yes <Lucinda Franklin - Last Filed: 05/21/19 18:00> <Alaina Welch - Last Filed: 05/21/19 18:39> - Discharge Information Clinical Impression/Diagnosis: ESRD (end stage renal disease), Rectal bleeding Abdominal pain Qualifiers: Abdominal location: left lower quadrant Qualified Code(s): R10.32 - Left lower quadrant pain Condition: Stable Disposition: HOME - Follow up/Referral Referrals: Tay Elder DO [Staff Physician] - Sebastián Parr MD [Primary Care Provider] - Viet Cartwright MD [Staff Physician] - - Patient Discharge Instructions Patient Printed Discharge Instructions: DI for Rectal Bleeding, DI for Diverticulosis, DI for Hemorrhoids Additional Instructions: Today you were evaluated for rectal bleeding likely from diverticulosis or hemorrhoids. Your labs do not show you have lost a lot of blood and you do not have an infection. Your CT scan shows mild diverticulosis, which is pouching of the intestines that can sometimes cause bleeding. There was also the finding of soft tissue stranding inside the abdomen that is not the cause of your bleeding, but needs to be further evaluated. Please follow-up with a GI doctor in the next 3 days for further care, a referral has been given to Dr. Elder, as he may want to perform another colonoscopy. Also see your primary doctor in the next week, and let him know about your weight loss. If you experience worsening abdominal pain, worse bleeding, chest pain, trouble breathing, black stools, dehydration or any other new or concerning symptoms, please return to the emergency room.
[2019-05-21 14:39] LABS: BASO % 0.5 % (0-2.0); EOS % 3.5 % (0-4.5); HEMATOCRIT 39.7 % (32.4-45.2); HEMOGLOBIN 12.8 GM/dL (10.7-15.3); LYMPH % 16.8 % (8-40); MCH 33.6 pg (25.7-33.7); MCHC 32.2 g/dl (32.0-36.0); MEAN CELL VOLUME 104.4 fl (80-96); MEAN PLT VOLUME 9.7 fl (7.5-11.1); MONO % 7.9 % (3.8-10.2); NEUT % 71.3 % (42.8-82.8); PLATELET COUNT 149 K/MM3 (134-434); RDW 14.7 % (11.6-15.6); WHITE BLOOD COUNT 4.4 K/mm3 (4.0-10.0)
--- NOTE | 2019-05-21 14:41 | PDOC ---
Attending Attestation - Resident Resident Name: Aldo Omer - ED Attending Attestation I have performed the following: I have examined & evaluated the patient, The case was reviewed & discussed with the resident, I agree w/resident's findings & plan - HPI HPI: 05/21/19 14:41 Ms. 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 Has 24 hour home health aide. Today patient had BM after breakfast, home health aide reports brown/dark stool with streaks of red, toilet bowl not bloody. 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 Has never had rectal bleeding before. Patient denies straining or pain with BM, has history of hemorrhoids but never rectal bleeding. Denies gross hematochezia or melena. Reports feeling dizzy but denies SOB, chest pain, palpitations. Having lower abdominal pain, denies any N/ V, hematemesis, F/C, urinary symptoms. Only abdominal surgery is 27 years ago without complications. Tolerating PO, had waffles for breakfast prior to BM. Last HD yesterday, tolerated well. last colonoscopy was [address] Willingham PCP/nephro: Dr Guntre 05/21/19 17:24 05/21/19 18:28 - Physicial Exam PE: 05/21/19 14:41 Agree with the resident's HPI and PE as documented in the electronic medical record. NAD, well appearing, EOMI, PERRL, baseline dysconjugate gaze, nl conjunctiva, + left eye blindness. anicteric; neck supple. lungs clear, RRR, abdomen soft nontender. no rebound, guarding. mild LLQ tenderness, no CVAT. Back nontender. LARSON x4, no focal neuro deficits. No peripheral edema. normal color for ethnicity , WWP. +RUE fistula, palp thrill. rectal exam by resident, no gross bleeding, soft stool, external hemorrhoid, nonthrombosed no hematochezia, no tarry stools, no melena 05/21/19 18:38 - Medical Decision Making 02/25/20 14:41 Vital Signs Temp Pulse Resp BP Pulse Ox 98 F 71 19 158/85 100 05/21/19 13:27 05/21/19 13:27 05/21/19 13:27 05/21/19 13:27 05/21/19 13:27 DDx abdominal pain: Renal colic, biliary colic, metabolic/electrolyte derangements. GERD, PUD, esophageal spasm, hepatitis, constipation, colitis, cholecystitis, ileus, SBO, medication side effect, hernia, appendicitis, diverticulitis, msk strain, mesenteric adenitis, psoas abscess. abdominal mass. UGIB vs LGIB, diverticular bleed, AVM, polyp, brisk UGIB, PUD/duodenal ulcer, anemia, electrolyte/metabolic derangements, ischemic colitis, hemorrhagic colitis, mesenteric ischemia. Larry dailey tear, doubt Borhaaves. no upper abdominal pain, no ribeiro's sign or s/s to suggest pancreatitis or cholecystitis. does not appear peritoneal. no risk factors or sx to suggest mesenteric ischemia. No evidence of AAA, cholecystitis, choledocholithiasis, cholangitis, small bowel obstruction, diverticulitis, colitis, appendicitis, or pelvic etiolology, larry dailey tear, statistical methods professor issues, as no pelvic sx. 05/21/19 17:25 labs and lytes wnl, Cr at baseline for ESRD at 6.1, due for HD tomorrow. CT a/p to eval for diverticulitis/mass results unremarkable. mild diverticulosis, no diverticulitis. nonspecific soft tissue stranding from abdomen/pelvis. Resolution of the hydronephrosis. Concentric soft tissue stranding along the length of the abdomen and pelvis and partially imaged chest including the breasts, question for fluid retention. Mild presacral soft tissue edema present similar to prior results. The patient appears comfortable and states that pain is improved. Given medications including zofran for nausea with clinical improvement. Tolerating oral intake. Vital signs reviewed and are normal. On repeat physical exam, the abdomen is soft and nontender, no suggestive findings for acute abdominal process at this time. no vomiting here. All diagnostics tests reviewed and discussed with the patient. Advised patient that bleeding could be from hemorrhoids versus her diverticulosis, no evidence of large or massive GI bleed. No indication for admission at this time. Nonemergent colonoscopy is warranted with her GI doctor as an outpatient last one was done 5 years ago. Advised to stay hydrated, fiber diet, green leafy vegetables and fruits. Pt to be discharged in stable condition. Patient and family made aware of clinical impression, treatment recommendations and disposition plan, return precautions discussed (including but not limited to new or persistent/worsening symptoms, pain, fevers, or signs of infection, chest pain, respiratory distress , inability to tolerate oral intake, dehydration, syncope, or neurologic changes ). Follow up with PMD and/or specialist as recommended, follow up information provided, take medications as instructed for duration of time. continue with supportive care, avoid triggers and precipitants. All questions answered to patient's satisfaction and expressed understanding and comfort with this. At the time of discharge, the patient is alert, clinically improved, tolerating po and verbalizes understanding of instructions, satisfied with the care received and felt comfortable with the plan. Patient does not suffer from an acute life- threatening medical condition at this time and is safe for outpatient follow- up. 05/21/19 18:34
[2019-05-21 15:01] LABS: INR 1.02 (0.83-1.09)
[2019-05-21 15:04] LABS: ACTIVATED PTT 36.3 SECONDS (25.2-36.5)
[2019-05-21 15:21] LABS: ALBUMIN 3.9 g/dl (3.4-5.0); BILIRUBIN,TOTAL 0.4 mg/dL (0.2-1); BLOOD UREA NITROGEN 15.8 mg/dL (7-18); CREATININE 6.1 mg/dL (0.55-1.3); POTASSIUM 3.8 mmol/L (3.5-5.1); TOT PROT 7.2 g/dl (6.4-8.2)
[2019-05-21 17:12] VITALS: BP 147/76; PULSE 75; TEMP 97.9
[2019-05-21] MEDS ORDERED: ONDANSETRON *ODT* 4 MG TABLET SL ONE (18:29)
[2019-05-21] MEDS ORDERED: ONDANSETRON *ODT* 4 MG TABLET ONE (18:47)
== END 2019-05-21 18:54 | disposition home or self-care (01) ==
LOC: JER 13:05
DX: I12.0 Hypertensive chronic kidney disease with stage 5 chronic kidney disease or end stage renal disease (principal); E11.22 Type 2 diabetes mellitus with diabetic chronic kidney disease; N18.6 End stage renal disease; N17.8 Other acute kidney failure; Z99.2 Dependence on renal dialysis; Z79.84 Long term (current) use of oral hypoglycemic drugs; D50.9 Iron deficiency anemia, unspecified; E78.5 Hyperlipidemia, unspecified; F41.9 Anxiety disorder, unspecified; G20 Parkinson's disease; G40.909 Epilepsy, unspecified, not intractable, without status epilepticus; J45.909 Unspecified asthma, uncomplicated; K21.9 Gastro-esophageal reflux disease without esophagitis; K64.9 Unspecified hemorrhoids; Z79.82 Long term (current) use of aspirin; Z79.02 Long term (current) use of antithrombotics/antiplatelets; Z88.8 Allergy status to other drugs, medicaments and biological substances; Z88.5 Allergy status to narcotic agent; Z88.0 Allergy status to penicillin
CPT/HCPCS: 36415; 74176-TC; 80053; 82272; 85025; 85610; 85730; 86850; 86900; 86901; 99284-25; Q0162

== ENCOUNTER 2020-01-27 11:09 | Inpatient (IN) | payer OTHER ==
[2020-01-27 14:21] LABS: BASO % 0.4 % (0-2.0); EOS % 3.1 % (0-4.5); HEMATOCRIT 33.7 % (32.4-45.2); HEMOGLOBIN 10.9 GM/dL (10.7-15.3); LYMPH % 14.8 % (8-40); MCH 34.9 pg (25.7-33.7); MCHC 32.3 g/dl (32.0-36.0); MEAN CELL VOLUME 107.8 fl (80-96); MEAN PLT VOLUME 9.3 fl (7.5-11.1); MONO % 5.8 % (3.8-10.2); NEUT % 75.9 % (42.8-82.8); PLATELET COUNT 153 K/MM3 (134-434); RBC 3.13 M/mm3 (3.60-5.2); RDW 13.6 % (11.6-15.6); WHITE BLOOD COUNT 6.7 K/mm3 (4.0-10.0)
[2020-01-27 14:33] LABS: INR 0.96 (0.83-1.09); PROTHROMBIN TIME (PATIENT) 11.6 SEC (9.7-13.0)
[2020-01-27 14:35] LABS: ACTIVATED PTT 27.8 SECONDS (25.2-36.5)
[2020-01-27 14:48] LABS: CHLORIDE 100 mmol/L (98-107); POTASSIUM 5.7 mmol/L (3.5-5.1); SODIUM 136 mmol/L (136-145)
[2020-01-27 14:50] LABS: ALBUMIN 3.8 g/dl (3.4-5.0); ANION GAP 7 MMOL/L (8-16); BLOOD UREA NITROGEN 59.6 mg/dL (7-18); CALCIUM 9.7 mg/dL (8.5-10.1); CO2 29 mmol/L (21-32)
[2020-01-27 14:51] LABS: GLUCOSE,RANDOM 124 mg/dL (74-106); MAGNESIUM 3.6 mg/dL (1.8-2.4)
[2020-01-27 14:53] LABS: SGOT/AST 23 U/L (15-37); SGPT/ALT 11 U/L (13-61)
[2020-01-27 14:55] LABS: BILIRUBIN,TOTAL 0.4 mg/dL (0.2-1); TOT PROT 7.6 g/dl (6.4-8.2)
[2020-01-27 14:56] LABS: ALK PHOS 137 U/L (45-117)
[2020-01-27 14:58] LABS: CREATININE 9.2 mg/dL (0.55-1.3)
[2020-01-27 14:59] LABS: ANISOCYTOSIS 0; MACROCYTOSIS 0; PLATELET ESTIMATE DECREASED
[2020-01-27] MEDS ORDERED: INSULIN REGULAR HUMAN 100 UNITS/ML *VIAL IVPUSH ONE (18:31)
[2020-01-27] MEDS ORDERED: DEXTROSE 50%-WATER - 25 GM/50 ML VIAL IVPUSH ONE (18:31)
[2020-01-27] MEDS ORDERED: DEXTROSE 50%-WATER 25 GM/50 ML DISP.SYRIN ONE (18:44)
[2020-01-27] MEDS: SODIUM ZIRCONIUM CYCLOSILICATE (LOKELMA) 5 GM PACKET PO SCH (20:11)
[2020-01-27] MEDS ORDERED: PATIENT'S OWN MEDICATION (NON-FORMULARY) (Bupropion Hcl [Wellbutrin Xl] 300 MG) PO SCH (22:00)
[2020-01-27] MEDS ORDERED: ATORVASTATIN CA 80 MG TABLET (FP) PO SCH (22:00)
[2020-01-27] MEDS ORDERED: SENNOSIDES 8.6MG TABLET (FP) PO SCH (22:00)
[2020-01-27] MEDS ORDERED: QUEtiapine FUMARATE 100 MG TABLET (FP) PO SCH (22:00)
[2020-01-27] MEDS ORDERED: clonazePAM 0.5 MG TABLET ONE (22:36)
[2020-01-27] MEDS ORDERED: levETIRAcetam 500 MG TABLET (FP) PO ONE (22:37)
[2020-01-27] MEDS ORDERED: CARVEDILOL 12.5 MG TABLET (FP) ONE (22:37)
[2020-01-27] MEDS ORDERED: SENNOSIDES 8.6MG TABLET (FP) PO ONE (22:37)
[2020-01-27] MEDS ORDERED: ATORVASTATIN CA 80 MG TABLET (FP) ONE (22:37)
[2020-01-27] MEDS ORDERED: buPROPion HCL 100 MG TABLET ONE (22:38)
[2020-01-27] MEDS ORDERED: QUEtiapine FUMARATE 100 MG TABLET (FP) ONE (22:38)
[2020-01-27] MEDS ORDERED: TOPIRAMATE 25 MG TABLET ONE (22:38)
[2020-01-27] MEDS ORDERED: levETIRAcetam 500 MG TABLET (FP) PO SCH (23:00)
[2020-01-27] MEDS: clonazePAM 0.5 MG TABLET PO SCH (23:10)
[2020-01-27] MEDS: INSULIN SLIDING SCALE (NOVOLOG) 1 VIAL SQ SCH (23:10)
[2020-01-27] MEDS: CARVEDILOL 25 MG TABLET (FP) PO SCH (23:10)
[2020-01-27] MEDS: TOPIRAMATE 25 MG TABLET PO SCH (23:11)
[2020-01-27 23:54] LABS: POTASSIUM 4.9 mmol/L (3.5-5.1)
[2020-01-27 23:55] LABS: BLOOD UREA NITROGEN 62.4 mg/dL (7-18); CALCIUM 9.6 mg/dL (8.5-10.1)
[2020-01-28 00:38] LABS: CREATININE 9.7 mg/dL (0.55-1.3)
[2020-01-28 03:52] VITALS: BMI 38.1
[2020-01-28] MEDS: INSULIN SLIDING SCALE (NOVOLOG) 1 VIAL SQ SCH ×4 (06:59→22:44)
[2020-01-28 07:57] LABS: POTASSIUM 5.2 mmol/L (3.5-5.1)
[2020-01-28 08:03] LABS: CALCIUM 9.5 mg/dL (8.5-10.1)
[2020-01-28 08:05] LABS: ALBUMIN 3.2 g/dl (3.4-5.0); BLOOD UREA NITROGEN 65.8 mg/dL (7-18); MAGNESIUM 3.5 mg/dL (1.8-2.4)
[2020-01-28 08:08] LABS: BILIRUBIN,TOTAL 0.4 mg/dL (0.2-1); PHOSPHOROUS 3.5 mg/dL (2.5-4.9); TOT PROT 6.6 g/dl (6.4-8.2)
[2020-01-28 08:26] LABS: BASO % 0.7 % (0-2.0); EOS % 3.7 % (0-4.5); HEMATOCRIT 31.3 % (32.4-45.2); HEMOGLOBIN 10.1 GM/dL (10.7-15.3); LYMPH % 26.8 % (8-40); MCH 34.9 pg (25.7-33.7); MCHC 32.2 g/dl (32.0-36.0); MEAN CELL VOLUME 108.2 fl (80-96); MONO % 8.5 % (3.8-10.2); NEUT % 60.3 % (42.8-82.8); PLATELET COUNT 144 K/MM3 (134-434); RBC 2.89 M/mm3 (3.60-5.2); RDW 13.8 % (11.6-15.6); WHITE BLOOD COUNT 4.6 K/mm3 (4.0-10.0)
[2020-01-28 08:28] LABS: CREATININE 10.2 mg/dL (0.55-1.3)
[2020-01-28 08:49] LABS: INR 0.99 (0.83-1.09); PROTHROMBIN TIME (PATIENT) 12.2 SEC (9.7-13.0)
[2020-01-28 08:52] LABS: ACTIVATED PTT 29.8 SECONDS (25.2-36.5)
[2020-01-28] MEDS ORDERED: FUROSEMIDE 40 MG TABLET (FP) PO SCH (10:00)
[2020-01-28] MEDS ORDERED: ALBUTEROL SO4 HFA INHALER IH SCH (10:00)
[2020-01-28] MEDS ORDERED: PATIENT'S OWN MEDICATION (NON-FORMULARY) (Linaclotide [Linzess] 145 MCG) PO SCH (10:00)
[2020-01-28] MEDS ORDERED: CLOPIDOGREL BISULFATE 75 MG TABLET (FP) PO SCH (10:00)
[2020-01-28] MEDS ORDERED: amLODIPine BESYLATE 10 MG TABLET (FP) PO SCH (10:00)
[2020-01-28] MEDS ORDERED: VITAMIN B COMPLEX W/C COMBO TABLET (FP) PO SCH (10:00)
[2020-01-28] MEDS: SODIUM ZIRCONIUM CYCLOSILICATE (LOKELMA) 5 GM PACKET PO SCH (10:18)
[2020-01-28] MEDS: CARVEDILOL 25 MG TABLET (FP) PO SCH ×2 (10:18→22:42)
[2020-01-28] MEDS: SEVELAMER CARBONATE 800 MG TAB (FP) PO SCH ×3 (10:18→16:37)
[2020-01-28] MEDS: clonazePAM 0.5 MG TABLET PO SCH ×2 (10:18→22:44)
[2020-01-28] MEDS: TOPIRAMATE 25 MG TABLET PO SCH ×2 (10:18→22:43)
[2020-01-28] MEDS ORDERED: DEXTROSE 50%-WATER - 25 GM/50 ML VIAL ONE (12:58)
[2020-01-28] MEDS: DEXTROSE 50%-WATER - 25 GM/50 ML VIAL IVPUSH ONE ×2 (13:01→15:20)
[2020-01-28] MEDS ORDERED: ALBUTEROL SO4 HFA INHALER IH PRN ×2 (15:20→20:02)
[2020-01-28] MEDS ORDERED: PROPOFOL 20 ML ONE ×2 (15:34)
[2020-01-28] MEDS ORDERED: EPHEDRINE SULFATE/0.9% NACL/PF 50 MG/10 ML SYRINGE NR ONE (15:34)
[2020-01-28] MEDS ORDERED: MIDAZOLAM HCL 2 MG/2 ML SINGLE DOSE VIAL ONE ×2 (15:34→17:46)
[2020-01-28] MEDS ORDERED: HEPARIN NA (PORCINE) 5,000 UNITS/ML 1ML VIAL ONE (16:19)
[2020-01-28] MEDS ORDERED: ceFAZolin SODIUM 1 GM VIAL IVPB ONE (17:45)
[2020-01-28] MEDS ORDERED: LIDOCAINE HCL 1%, 10 MG/ML (50 mL VIAL) NR ONE ×2 (17:54)
[2020-01-28] MEDS ORDERED: LIDOCAINE HCL 1%, 10 MG/ML (20ML VIAL) ONE (18:37)
[2020-01-28] MEDS ORDERED: SODIUM CHLORIDE 250 ML IV PRN ×2 (18:55→20:02)
[2020-01-28] MEDS ORDERED: HEPARIN NA (PORCINE) 5,000 UNITS/ML 1ML VIAL IVPUSH ONE ×2 (18:55→20:02)
[2020-01-28] MEDS ORDERED: ONDANSETRON 4 MG/2 ML VIAL IVPUSH PRN (19:59)
[2020-01-28] MEDS ORDERED: PT OWN MED DRAWER 7, Y5N ONE (22:39)
[2020-01-28] MEDS: ATORVASTATIN CA 80 MG TABLET (FP) PO SCH (22:42)
[2020-01-28] MEDS: SENNOSIDES 8.6MG TABLET (FP) PO SCH (22:43)
[2020-01-28] MEDS: QUEtiapine FUMARATE 100 MG TABLET (FP) PO SCH (22:43)
[2020-01-28] MEDS ORDERED: ACETAMINOPHEN 325 MG TABLET (FP) PO ONE (23:08)
[2020-01-28] MEDS: levETIRAcetam 500 MG TABLET (FP) PO SCH (23:42)
[2020-01-29] MEDS ORDERED: ACETAMINOPHEN 500 MG TABLET (FP) PO ONE (05:37)
[2020-01-29] MEDS: INSULIN SLIDING SCALE (NOVOLOG) 1 VIAL SQ SCH ×4 (06:27→22:06)
[2020-01-29 08:08] LABS: HEMATOCRIT 31.1 % (32.4-45.2); MCHC 32.3 g/dl (32.0-36.0); MEAN CELL VOLUME 108.2 fl (80-96); PLATELET COUNT 144 K/MM3 (134-434); RBC 2.87 M/mm3 (3.60-5.2); RDW 13.5 % (11.6-15.6); WHITE BLOOD COUNT 6.6 K/mm3 (4.0-10.0)
[2020-01-29] MEDS: SEVELAMER CARBONATE 800 MG TAB (FP) PO SCH ×3 (08:55→16:58)
[2020-01-29] MEDS ORDERED: PATIENT'S OWN MEDICATION (NON-FORMULARY) (Linaclotide [Linzess] 145 MCG) PO SCH (10:00)
[2020-01-29 10:11] LABS: ALBUMIN 3.3 g/dl (3.4-5.0); CALCIUM 9.7 mg/dL (8.5-10.1)
[2020-01-29 10:12] LABS: BLOOD UREA NITROGEN 79.8 mg/dL (7-18)
[2020-01-29 10:16] LABS: BILIRUBIN,TOTAL 0.5 mg/dL (0.2-1); TOT PROT 6.7 g/dl (6.4-8.2)
[2020-01-29 10:44] LABS: CREATININE 11.4 mg/dL (0.55-1.3); POTASSIUM 6.3 mmol/L (3.5-5.1)
[2020-01-29] MEDS ORDERED: PT OWN MED DRAWER 7, Y5N ONE ×2 (13:35→21:51)
[2020-01-29] MEDS: TOPIRAMATE 25 MG TABLET PO SCH ×2 (13:43→22:05)
[2020-01-29] MEDS: SODIUM ZIRCONIUM CYCLOSILICATE (LOKELMA) 5 GM PACKET PO SCH (13:43)
[2020-01-29] MEDS: VITAMIN B COMPLEX W/C COMBO TABLET (FP) PO SCH (13:43)
[2020-01-29] MEDS: FUROSEMIDE 40 MG TABLET (FP) PO SCH (13:44)
[2020-01-29] MEDS: CLOPIDOGREL BISULFATE 75 MG TABLET (FP) PO SCH (13:44)
[2020-01-29] MEDS: levETIRAcetam 500 MG TABLET (FP) PO SCH ×4 (13:44→23:09)
[2020-01-29] MEDS: CARVEDILOL 25 MG TABLET (FP) PO SCH ×2 (13:44→22:05)
[2020-01-29] MEDS: amLODIPine BESYLATE 10 MG TABLET (FP) PO SCH (13:44)
[2020-01-29] MEDS: clonazePAM 0.5 MG TABLET PO SCH ×2 (13:45→22:05)
[2020-01-29] MEDS ORDERED: ALTEPLASE 2 MG VIAL CVP ONE ×2 (14:43→16:00)
[2020-01-29] MEDS ORDERED: SODIUM CHLORIDE 250 ML IV PRN ×2 (16:15→16:16)
[2020-01-29] MEDS: SENNOSIDES 8.6MG TABLET (FP) PO SCH ×2 (22:03→22:23)
[2020-01-29] MEDS: ATORVASTATIN CA 80 MG TABLET (FP) PO SCH (22:06)
[2020-01-29] MEDS: QUEtiapine FUMARATE 100 MG TABLET (FP) PO SCH (22:12)
[2020-01-30] MEDS: INSULIN SLIDING SCALE (NOVOLOG) 1 VIAL SQ SCH ×4 (06:15→23:02)
[2020-01-30] MEDS ORDERED: PT OWN MED DRAWER 7, Y5N ONE ×4 (06:24→21:03)
[2020-01-30 09:40] LABS: HEMATOCRIT 31.9 % (32.4-45.2); HEMOGLOBIN 10.2 GM/dL (10.7-15.3); MCH 34.7 pg (25.7-33.7); MCHC 32.1 g/dl (32.0-36.0); MEAN CELL VOLUME 108.2 fl (80-96); MEAN PLT VOLUME 8.5 fl (7.5-11.1); PLATELET COUNT 123 K/MM3 (134-434); RBC 2.95 M/mm3 (3.60-5.2); RDW 13.9 % (11.6-15.6); WHITE BLOOD COUNT 5.5 K/mm3 (4.0-10.0)
[2020-01-30] MEDS: SEVELAMER CARBONATE 800 MG TAB (FP) PO SCH ×3 (10:59→17:37)
[2020-01-30 11:06] LABS: POTASSIUM 4.9 mmol/L (3.5-5.1)
[2020-01-30 11:07] LABS: CALCIUM 9.6 mg/dL (8.5-10.1)
[2020-01-30 11:08] LABS: ALBUMIN 3.1 g/dl (3.4-5.0); MAGNESIUM 3.2 mg/dL (1.8-2.4)
[2020-01-30 11:11] LABS: PHOSPHOROUS 4.5 mg/dL (2.5-4.9)
[2020-01-30 11:13] LABS: BILIRUBIN,TOTAL 0.4 mg/dL (0.2-1); TOT PROT 6.6 g/dl (6.4-8.2)
[2020-01-30 11:48] LABS: CREATININE 9.3 mg/dL (0.55-1.3)
[2020-01-30] MEDS ORDERED: PATIENT'S OWN MEDICATION (NON-FORMULARY) (Rizatriptan Benzoate [Rizatriptan] 10 MG) PO PRN (13:03)
[2020-01-30] MEDS ORDERED: PATIENT'S OWN MEDICATION (NON-FORMULARY) (Pimavanserin Tartrate [Nuplazid] 34 MG) PO SCH (13:15)
[2020-01-30] MEDS ORDERED: ONDANSETRON *ODT* 4 MG TABLET SL SCH (14:00)
[2020-01-30] MEDS: CARVEDILOL 25 MG TABLET (FP) PO SCH ×2 (14:49→23:00)
[2020-01-30] MEDS: TOPIRAMATE 25 MG TABLET PO SCH ×2 (14:50→23:04)
[2020-01-30] MEDS: levETIRAcetam 500 MG TABLET (FP) PO SCH ×2 (14:50→23:01)
[2020-01-30] MEDS: CLOPIDOGREL BISULFATE 75 MG TABLET (FP) PO SCH (14:50)
[2020-01-30] MEDS: VITAMIN B COMPLEX W/C COMBO TABLET (FP) PO SCH (14:50)
[2020-01-30] MEDS: SODIUM ZIRCONIUM CYCLOSILICATE (LOKELMA) 5 GM PACKET PO SCH (14:50)
[2020-01-30] MEDS: amLODIPine BESYLATE 10 MG TABLET (FP) PO SCH (14:50)
[2020-01-30] MEDS: clonazePAM 0.5 MG TABLET PO SCH ×2 (14:50→23:01)
[2020-01-30] MEDS: FUROSEMIDE 40 MG TABLET (FP) PO SCH ×2 (14:51→15:07)
[2020-01-30] MEDS ORDERED: ONDANSETRON *ODT* 4 MG TABLET SL PRN (15:10)
[2020-01-30] MEDS ORDERED: SODIUM CHLORIDE 250 ML IV PRN (19:19)
[2020-01-30] MEDS: ATORVASTATIN CA 80 MG TABLET (FP) PO SCH (23:01)
[2020-01-30] MEDS: SENNOSIDES 8.6MG TABLET (FP) PO SCH (23:02)
[2020-01-30] MEDS: POLYETHYLENE GLYCOL 3350 119 GM BTL PO SCH (23:02)
[2020-01-30] MEDS: QUEtiapine FUMARATE 100 MG TABLET (FP) PO SCH (23:03)
[2020-01-31] MEDS ORDERED: PT OWN MED DRAWER 7, Y5N ONE ×2 (05:54→11:19)
[2020-01-31] MEDS: FUROSEMIDE 40 MG TABLET (FP) PO SCH (05:57)
[2020-01-31] MEDS: INSULIN SLIDING SCALE (NOVOLOG) 1 VIAL SQ SCH ×2 (05:59→11:36)
[2020-01-31 08:27] LABS: HEMATOCRIT 29.7 % (32.4-45.2); HEMOGLOBIN 9.7 GM/dL (10.7-15.3); MCH 35.2 pg (25.7-33.7); MCHC 32.6 g/dl (32.0-36.0); MEAN PLT VOLUME 8.8 fl (7.5-11.1); PLATELET COUNT 114 K/MM3 (134-434); RBC 2.75 M/mm3 (3.60-5.2); RDW 13.3 % (11.6-15.6); WHITE BLOOD COUNT 5.2 K/mm3 (4.0-10.0)
[2020-01-31] MEDS ORDERED: EPOETIN ALFA-EPBX 4,000 UNIT/ML VIAL IVPUSH ONE (08:45)
[2020-01-31 08:51] LABS: POTASSIUM 4.7 mmol/L (3.5-5.1)
[2020-01-31 08:52] LABS: CALCIUM 9.2 mg/dL (8.5-10.1)
[2020-01-31 08:53] LABS: BLOOD UREA NITROGEN 46.6 mg/dL (7-18)
[2020-01-31 09:01] LABS: CREATININE 7.5 mg/dL (0.55-1.3)
[2020-01-31] MEDS ORDERED: LORATADINE 10 MG TABLET PO SCH (10:00)
[2020-01-31] MEDS ORDERED: [UNRECOGNIZED DRUG - REMARK] PO SCH (10:00)
[2020-01-31] MEDS: SEVELAMER CARBONATE 800 MG TAB (FP) PO SCH ×2 (11:31→11:37)
[2020-01-31] MEDS: amLODIPine BESYLATE 10 MG TABLET (FP) PO SCH (11:34)
[2020-01-31] MEDS: levETIRAcetam 500 MG TABLET (FP) PO SCH (11:34)
[2020-01-31] MEDS: clonazePAM 0.5 MG TABLET PO SCH (11:34)
[2020-01-31] MEDS: TOPIRAMATE 25 MG TABLET PO SCH (11:35)
[2020-01-31] MEDS: CLOPIDOGREL BISULFATE 75 MG TABLET (FP) PO SCH (11:35)
[2020-01-31] MEDS: SODIUM ZIRCONIUM CYCLOSILICATE (LOKELMA) 5 GM PACKET PO SCH (11:35)
[2020-01-31] MEDS: POLYETHYLENE GLYCOL 3350 119 GM BTL PO SCH (11:35)
[2020-01-31] MEDS: VITAMIN B COMPLEX W/C COMBO TABLET (FP) PO SCH (11:35)
[2020-01-31] MEDS: CARVEDILOL 25 MG TABLET (FP) PO SCH (11:35)
[2020-01-31 11:54] VITALS: BP 144/64; PULSE 89; TEMP 98.6
== END 2020-01-31 13:53 | disposition home or self-care (01) | DRG 252 ==
LOC: JER 11:09 → JERBED 17:42 → J5S 23:40
PROVIDERS: ATTEND Internal Medicine
PROC: 0JH63XZ Insertion of Tunneled Vascular Access Device into Chest Subcutaneous Tissue and Fascia, Percutaneous Approach (ICD-10-PCS; 2020-01-28)
PROC: B513ZZA Fluoroscopy of Right Jugular Veins, Guidance (ICD-10-PCS; 2020-01-28)
PROC: 05CY3ZZ Extirpation of Matter from Upper Vein, Percutaneous Approach (ICD-10-PCS; principal; 2020-01-28 15:00)
PROC: 05HM33Z Insertion of Infusion Device into Right Internal Jugular Vein, Percutaneous Approach (ICD-10-PCS; 2020-01-28 15:00)
PROC: 5A1D70Z Performance of Urinary Filtration, Intermittent, Less than 6 Hours Per Day (ICD-10-PCS; 2020-01-29)
PROC: 5A1D70Z Performance of Urinary Filtration, Intermittent, Less than 6 Hours Per Day (ICD-10-PCS; 2020-01-30)
PROC: 5A1D70Z Performance of Urinary Filtration, Intermittent, Less than 6 Hours Per Day (ICD-10-PCS; 2020-01-31)
DX: T82.868A Thrombosis due to vascular prosthetic devices, implants and grafts, initial encounter (principal); N18.6 End stage renal disease; I69.351 Hemiplegia and hemiparesis following cerebral infarction affecting right dominant side; I12.0 Hypertensive chronic kidney disease with stage 5 chronic kidney disease or end stage renal disease; Y83.8 Other surgical procedures as the cause of abnormal reaction of the patient, or of later complication, without mention of misadventure at the time of the procedure; E11.22 Type 2 diabetes mellitus with diabetic chronic kidney disease; K21.9 Gastro-esophageal reflux disease without esophagitis; G40.909 Epilepsy, unspecified, not intractable, without status epilepticus; E78.5 Hyperlipidemia, unspecified; E87.5 Hyperkalemia; D63.1 Anemia in chronic kidney disease; J44.9 Chronic obstructive pulmonary disease, unspecified; J45.909 Unspecified asthma, uncomplicated; G47.00 Insomnia, unspecified; F32.9 Major depressive disorder, single episode, unspecified; Z99.2 Dependence on renal dialysis
CPT/HCPCS: 36415; 71045-TC-FY; 80048; 80053; 82550; 82553; 82962; 83735; 84100; 84484; 85025; 85027; 85610; 85730; 86803; 87340; 93005; 93010; 93931; 94760; 99285-25; C9803; J1644; J2997; Q0162; Q5106; U0003

== ENCOUNTER 2020-03-17 15:08 | Emergency (ER) | payer OTHER ==
[2020-03-17 16:03] VITALS: BP 121/52; PULSE 79; TEMP 97.2; BMI 35.5
== END 2020-03-17 18:00 | disposition left against medical advice (07) ==
LOC: JER 15:08
DX: I44.0 Atrioventricular block, first degree (principal); I49.3 Ventricular premature depolarization; R00.1 Bradycardia, unspecified
CPT/HCPCS: 71045-TC-FY; 93005; 93010; 99284-25

== ENCOUNTER 2020-06-22 11:54 | Inpatient (IN) | payer OTHER ==
[2020-06-22 12:23] VITALS: BMI 36.6
[2020-06-22] MEDS ORDERED: ACETAMINOPHEN 325 MG TABLET (FP) PO ONE (12:26)
[2020-06-22 13:28] LABS: INR 0.94 (0.83-1.09); PROTHROMBIN TIME (PATIENT) 11.6 SEC (9.7-13.0)
[2020-06-22 13:31] LABS: ACTIVATED PTT 30.8 SECONDS (25.2-36.5)
[2020-06-22 13:33] LABS: BASO % 0.7 % (0-2.0); EOS % 5.5 % (0-4.5); HEMATOCRIT 33.4 % (32.4-45.2); LYMPH % 18.5 % (8-40); MCH 34.6 pg (25.7-33.7); MCHC 32.9 g/dl (32.0-36.0); MEAN CELL VOLUME 104.9 fl (80-96); MEAN PLT VOLUME 8.7 fl (7.5-11.1); MONO % 11.9 % (3.8-10.2); NEUT % 63.4 % (42.8-82.8); PLATELET COUNT 216 K/MM3 (134-434); RBC 3.18 M/mm3 (3.60-5.2); RDW 13.7 % (11.6-15.6); WHITE BLOOD COUNT 5.9 K/mm3 (4.0-10.0)
[2020-06-22 13:46] LABS: CHLORIDE 100 mmol/L (98-107); SODIUM 134 mmol/L (136-145)
[2020-06-22 13:48] LABS: ANION GAP 9 MMOL/L (8-16); BLOOD UREA NITROGEN 53.2 mg/dL (7-18); CO2 26 mmol/L (21-32); GLUCOSE,RANDOM 111 mg/dL (74-106)
[2020-06-22 13:51] LABS: SGOT/AST 5 U/L (15-37); SGPT/ALT < 6 U/L (13-61)
[2020-06-22 13:53] LABS: BILIRUBIN,TOTAL 0.4 mg/dL (0.2-1); CREATININE 9.5 mg/dL (0.55-1.3); TOT PROT 6.4 g/dl (6.4-8.2)
[2020-06-22 13:54] LABS: ALK PHOS 109 U/L (45-117)
[2020-06-22] MEDS ORDERED: CLINDAMYCIN 600MG PREMIX IVPB 600 MG/50 ML BAG IVPB ONE (14:12)
[2020-06-22] MEDS ORDERED: CLINDAMYCIN PHOSPHATE 600 MG/4 ML VIAL ONE ×2 (14:22→14:24)
[2020-06-22] MEDS ORDERED: DOCUSATE NA 100 MG/10 ML UNIT-DOSE CUPS PO PRN (16:03)
[2020-06-22] MEDS: SEVELAMER CARBONATE 800 MG TAB (FP) PO SCH (18:03)
[2020-06-22] MEDS ORDERED: CARBIDOPA/LEVODOPA 25/100 TABLET (FP) ONE (18:05)
[2020-06-22] MEDS ORDERED: SENNOSIDES 8.6MG TABLET (FP) PO ONE (21:06)
[2020-06-22] MEDS ORDERED: hydrALAZINE HCL 25 MG TABLET (FP) ONE (21:06)
[2020-06-22] MEDS ORDERED: clonazePAM 0.5 MG TABLET ONE (21:06)
[2020-06-22] MEDS ORDERED: levETIRAcetam 500 MG TABLET (FP) PO ONE (21:09)
[2020-06-22] MEDS: levETIRAcetam 250 MG TABLET PO SCH (21:22)
[2020-06-22] MEDS: hydrALAZINE HCL 50 MG TABLET (FP) PO SCH (21:22)
[2020-06-22] MEDS: clonazePAM 0.5 MG TABLET PO SCH (21:22)
[2020-06-22] MEDS ORDERED: SENNOSIDES 8.6MG TABLET (FP) PO SCH (22:00)
[2020-06-23] MEDS: SEVELAMER CARBONATE 800 MG TAB (FP) PO SCH ×3 (08:00→17:08)
[2020-06-23] MEDS ORDERED: SODIUM CHLORIDE 250 ML IV PRN ×2 (09:20→19:38)
[2020-06-23] MEDS ORDERED: amLODIPine BESYLATE 10 MG TABLET (FP) PO SCH (10:00)
[2020-06-23] MEDS ORDERED: QUEtiapine FUMARATE 50 MG TABLET PO SCH (10:00)
[2020-06-23] MEDS ORDERED: CLOPIDOGREL BISULFATE 75 MG TABLET (FP) PO SCH (10:00)
[2020-06-23] MEDS: hydrALAZINE HCL 50 MG TABLET (FP) PO SCH (10:38)
[2020-06-23] MEDS: clonazePAM 0.5 MG TABLET PO SCH (10:41)
[2020-06-23] MEDS: levETIRAcetam 250 MG TABLET PO SCH (10:44)
[2020-06-23] MEDS ORDERED: ONDANSETRON 4 MG/2 ML VIAL IVPUSH PRN ×2 (16:59→19:38)
[2020-06-23] MEDS ORDERED: PROMETHAZINE HCL 25 MG/1 ML VIAL IVPUSH PRN ×2 (16:59→19:38)
[2020-06-23] MEDS ORDERED: SODIUM CHLORIDE 1,000 ML IV SCH (17:00)
[2020-06-23] MEDS ORDERED: HEPARIN NA (PORCINE) 5,000 UNITS/ML 1ML VIAL ONE (17:18)
[2020-06-23] MEDS ORDERED: LIDOCAINE HCL 1%, 10 MG/ML (20ML VIAL) ONE ×2 (17:18→18:45)
[2020-06-23] MEDS ORDERED: MIDAZOLAM HCL 2 MG/2 ML SINGLE DOSE VIAL ONE ×2 (17:26→17:45)
[2020-06-23] MEDS ORDERED: PROPOFOL 20 ML ONE (17:26)
[2020-06-23] MEDS ORDERED: LIDOCAINE HCL 1% PRESERVATIVE FREE - 30ML VIAL IJ ONE (17:36)
[2020-06-23] MEDS ORDERED: ceFAZolin SODIUM 1 GM VIAL ONE (17:46)
[2020-06-23] MEDS ORDERED: IOHEXOL 300 MG/ML INFUS..BTL IV ONE (17:50)
[2020-06-23] MEDS ORDERED: HEPARIN NA (PORCINE) 5,000 UNITS/ML 1ML VIAL IV ONE (17:58)
[2020-06-23] MEDS ORDERED: ceFAZolin 2 GRAM PREMIX BAG IVPB ONE (17:58)
[2020-06-23] MEDS ORDERED: DOCUSATE NA 100 MG/10 ML UNIT-DOSE CUPS PO PRN (19:38)
[2020-06-24] MEDS: clonazePAM 0.5 MG TABLET PO SCH ×3 (00:28→23:02)
[2020-06-24] MEDS: levETIRAcetam 250 MG TABLET PO SCH ×3 (00:29→23:03)
[2020-06-24] MEDS: hydrALAZINE HCL 50 MG TABLET (FP) PO SCH ×3 (00:30→23:03)
[2020-06-24] MEDS: SODIUM CHLORIDE 1,000 ML IV SCH ×2 (00:31→23:03)
[2020-06-24] MEDS: SENNOSIDES 8.6MG TABLET (FP) PO SCH ×2 (00:46→23:02)
[2020-06-24] MEDS: SEVELAMER CARBONATE 800 MG TAB (FP) PO SCH ×4 (08:47→17:28)
[2020-06-24 09:04] LABS: BASO % 0.5 % (0-2.0); EOS % 4.6 % (0-4.5); HEMATOCRIT 30.6 % (32.4-45.2); HEMOGLOBIN 10.1 GM/dL (10.7-15.3); LYMPH % 13.5 % (8-40); MCH 34.3 pg (25.7-33.7); MEAN CELL VOLUME 103.8 fl (80-96); MEAN PLT VOLUME 8.8 fl (7.5-11.1); MONO % 12.6 % (3.8-10.2); NEUT % 68.8 % (42.8-82.8); PLATELET COUNT 199 K/MM3 (134-434); RBC 2.95 M/mm3 (3.60-5.2); RDW 13.5 % (11.6-15.6); WHITE BLOOD COUNT 5.4 K/mm3 (4.0-10.0)
[2020-06-24 09:19] LABS: CHLORIDE 103 mmol/L (98-107); SODIUM 138 mmol/L (136-145)
[2020-06-24 09:24] LABS: ANION GAP 7 MMOL/L (8-16); BLOOD UREA NITROGEN 37.7 mg/dL (7-18); CALCIUM 8.8 mg/dL (8.5-10.1); CO2 28 mmol/L (21-32); GLUCOSE,RANDOM 72 mg/dL (74-106); MAGNESIUM 2.5 mg/dL (1.8-2.4)
[2020-06-24 09:27] LABS: PHOSPHOROUS 3.2 mg/dL (2.5-4.9); SGOT/AST 7 U/L (15-37); SGPT/ALT < 6 U/L (13-61)
[2020-06-24 09:28] LABS: BILIRUBIN,TOTAL 0.5 mg/dL (0.2-1); TOT PROT 5.8 g/dl (6.4-8.2)
[2020-06-24 09:29] LABS: ALK PHOS 88 U/L (45-117)
[2020-06-24] MEDS ORDERED: QUEtiapine FUMARATE 50 MG TABLET PO SCH (10:00)
[2020-06-24 10:16] LABS: CREATININE 7.8 mg/dL (0.55-1.3)
[2020-06-24] MEDS: amLODIPine BESYLATE 10 MG TABLET (FP) PO SCH (10:19)
[2020-06-24] MEDS: CLOPIDOGREL BISULFATE 75 MG TABLET (FP) PO SCH (10:19)
[2020-06-24] MEDS ORDERED: SODIUM CHLORIDE 250 ML IV PRN (13:44)
[2020-06-24] MEDS ORDERED: QUEtiapine FUMARATE 100 MG TABLET (FP) PO SCH (22:00)
[2020-06-25] MEDS: hydrALAZINE HCL 50 MG TABLET (FP) PO SCH (09:50)
[2020-06-25] MEDS: SEVELAMER CARBONATE 800 MG TAB (FP) PO SCH ×2 (09:50→12:32)
[2020-06-25] MEDS: clonazePAM 0.5 MG TABLET PO SCH (09:50)
[2020-06-25] MEDS: levETIRAcetam 250 MG TABLET PO SCH (09:50)
[2020-06-25] MEDS: amLODIPine BESYLATE 10 MG TABLET (FP) PO SCH (09:51)
[2020-06-25] MEDS: CLOPIDOGREL BISULFATE 75 MG TABLET (FP) PO SCH (09:51)
[2020-06-25 16:10] VITALS: BP 131/61; PULSE 87; TEMP 98.6
== END 2020-06-25 16:15 | disposition home or self-care (01) | DRG 252 ==
LOC: JER 11:54 → JERBED 12:52 → J6S 23:59
PROVIDERS: ADMIT Internal Medicine; ATTEND Student in an Organized Health Care Education/Training Program
PROC: 05HM33Z Insertion of Infusion Device into Right Internal Jugular Vein, Percutaneous Approach (ICD-10-PCS; 2020-06-23)
PROC: B543ZZA Ultrasonography of Right Jugular Veins, Guidance (ICD-10-PCS; 2020-06-23)
PROC: B50MYZZ Plain Radiography of Right Upper Extremity Veins using Other Contrast (ICD-10-PCS; 2020-06-23)
PROC: 03CY3ZZ Extirpation of Matter from Upper Artery, Percutaneous Approach (ICD-10-PCS; principal; 2020-06-23 16:00)
PROC: 037Y3ZZ Dilation of Upper Artery, Percutaneous Approach (ICD-10-PCS; 2020-06-23 16:00)
PROC: 5A1D70Z Performance of Urinary Filtration, Intermittent, Less than 6 Hours Per Day (ICD-10-PCS; 2020-06-24)
PROC: 5A1D70Z Performance of Urinary Filtration, Intermittent, Less than 6 Hours Per Day (ICD-10-PCS; 2020-06-24)
DX: T82.868A Thrombosis due to vascular prosthetic devices, implants and grafts, initial encounter (principal); N18.6 End stage renal disease; L97.528 Non-pressure chronic ulcer of other part of left foot with other specified severity; I12.0 Hypertensive chronic kidney disease with stage 5 chronic kidney disease or end stage renal disease; I69.351 Hemiplegia and hemiparesis following cerebral infarction affecting right dominant side; Y83.8 Other surgical procedures as the cause of abnormal reaction of the patient, or of later complication, without mention of misadventure at the time of the procedure; J45.909 Unspecified asthma, uncomplicated; K21.9 Gastro-esophageal reflux disease without esophagitis; E78.00 Pure hypercholesterolemia, unspecified; F41.9 Anxiety disorder, unspecified; E11.621 Type 2 diabetes mellitus with foot ulcer; E11.22 Type 2 diabetes mellitus with diabetic chronic kidney disease; Z99.2 Dependence on renal dialysis; G40.909 Epilepsy, unspecified, not intractable, without status epilepticus; G20 Parkinson's disease; K64.9 Unspecified hemorrhoids; K59.09 Other constipation; E11.51 Type 2 diabetes mellitus with diabetic peripheral angiopathy without gangrene; G47.30 Sleep apnea, unspecified
CPT/HCPCS: 36415; 71045-TC-FY; 76000-TC-FY; 80053; 83735; 84100; 84703; 85025; 85610; 85730; 86803; 86850; 86900; 86901; 87340; 87804; 93005; 93010; 94760; 99285-25; C9803; J1644; U0003; U0005

== ENCOUNTER 2020-06-26 12:19 | Inpatient (IN) | payer OTHER ==
[2020-06-26 15:06] LABS: BASO % 0.5 % (0-2.0); EOS % 8.3 % (0-4.5); HEMATOCRIT 32.8 % (32.4-45.2); HEMOGLOBIN 10.6 GM/dL (10.7-15.3); LYMPH % 18.8 % (8-40); MCH 34.1 pg (25.7-33.7); MCHC 32.4 g/dl (32.0-36.0); MEAN CELL VOLUME 105.2 fl (80-96); MONO % 9.3 % (3.8-10.2); NEUT % 63.1 % (42.8-82.8); PLATELET COUNT 202 K/MM3 (134-434); RBC 3.12 M/mm3 (3.60-5.2); RDW 13.8 % (11.6-15.6); WHITE BLOOD COUNT 6.5 K/mm3 (4.0-10.0)
[2020-06-26] MEDS ORDERED: ACETAMINOPHEN 1000 MG/100 ML VIAL (NON FORMULARY) IVPB ONE (15:13)
[2020-06-26 15:25] LABS: CHLORIDE 101 mmol/L (98-107); POTASSIUM 3.8 mmol/L (3.5-5.1); SODIUM 138 mmol/L (136-145)
[2020-06-26 15:26] LABS: CALCIUM 9.4 mg/dL (8.5-10.1)
[2020-06-26 15:27] LABS: BLOOD UREA NITROGEN 31.2 mg/dL (7-18); GLUCOSE,RANDOM 157 mg/dL (74-106); LIPASE 89 U/L (73-393); MAGNESIUM 2.5 mg/dL (1.8-2.4)
[2020-06-26 15:28] LABS: ANION GAP 5 MMOL/L (8-16); CO2 32 mmol/L (21-32)
[2020-06-26 15:30] LABS: CREATININE 6.2 mg/dL (0.55-1.3); PHOSPHOROUS 2.4 mg/dL (2.5-4.9); SGOT/AST 16 U/L (15-37)
[2020-06-26 15:31] LABS: BILIRUBIN,TOTAL 0.3 mg/dL (0.2-1); TOT PROT 6.4 g/dl (6.4-8.2)
[2020-06-26 15:32] LABS: ALK PHOS 88 U/L (45-117)
[2020-06-26 15:36] LABS: SGPT/ALT < 6 U/L (13-61)
[2020-06-26] MEDS ORDERED: MECLIZINE HCL 25 MG TABLET (FP) PO ONE (15:36)
[2020-06-26] MEDS ORDERED: SODIUM CHLORIDE 0.9% 1000 ML INFUS.BAG IV ONE (15:36)
[2020-06-26] MEDS ORDERED: MECLIZINE HCL 25 MG TABLET (FP) ONE (15:57)
[2020-06-26] MEDS ORDERED: ACETAMINOPHEN INJECTION 100 ML IVPB ONE (15:57)
[2020-06-26 19:06] LABS: ANISOCYTOSIS 2+; MACROCYTOSIS 2+; OVALOCYTE 1+; PLATELET ESTIMATE NORMAL
[2020-06-26] MEDS ORDERED: CARBIDOPA/LEVODOPA 25/100 TABLET (FP) ONE (19:25)
[2020-06-26] MEDS: hydrALAZINE HCL 50 MG TABLET (FP) PO SCH (23:56)
[2020-06-27 04:42] VITALS: BMI 39.8
[2020-06-27] MEDS ORDERED: amLODIPine BESYLATE 10 MG TABLET (FP) PO SCH ×2 (10:00→12:31)
[2020-06-27] MEDS ORDERED: BISMUTH SUBSALICYLATE 524 MG/30 ML UD PO PRN (10:03)
[2020-06-27] MEDS: hydrALAZINE HCL 50 MG TABLET (FP) PO SCH ×2 (11:34→23:11)
[2020-06-27] MEDS: PANTOPRAZOLE 40 MG TABLET PO SCH (11:34)
[2020-06-27] MEDS: VANCOMYCIN 250 MG/5 ML ORAL SOLUTION PO SCH ×3 (12:00→17:43)
[2020-06-27 18:33] LABS: BASO % 0.4 % (0-2.0); EOS % 8.3 % (0-4.5); HEMATOCRIT 28.5 % (32.4-45.2); HEMOGLOBIN 9.2 GM/dL (10.7-15.3); LYMPH % 18.3 % (8-40); MCH 33.8 pg (25.7-33.7); MCHC 32.3 g/dl (32.0-36.0); MEAN CELL VOLUME 104.6 fl (80-96); MEAN PLT VOLUME 9.1 fl (7.5-11.1); MONO % 10.5 % (3.8-10.2); NEUT % 62.5 % (42.8-82.8); PLATELET COUNT 173 K/MM3 (134-434); RBC 2.72 M/mm3 (3.60-5.2); RDW 13.6 % (11.6-15.6); WHITE BLOOD COUNT 6.3 K/mm3 (4.0-10.0)
[2020-06-27 18:40] LABS: CHLORIDE 103 mmol/L (98-107); GLUCOSE,RANDOM 81 mg/dL (74-106); POTASSIUM 3.7 mmol/L (3.5-5.1); SODIUM 138 mmol/L (136-145)
[2020-06-27 18:41] LABS: ALBUMIN 2.5 g/dl (3.4-5.0); BLOOD UREA NITROGEN 37.3 mg/dL (7-18); CALCIUM 8.8 mg/dL (8.5-10.1); MAGNESIUM 2.3 mg/dL (1.8-2.4)
[2020-06-27 18:44] LABS: PHOSPHOROUS 2.5 mg/dL (2.5-4.9)
[2020-06-27 18:45] LABS: ANION GAP 6 MMOL/L (8-16); CO2 30 mmol/L (21-32); CREATININE 6.9 mg/dL (0.55-1.3); SGOT/AST 8 U/L (15-37)
[2020-06-27 18:46] LABS: BILIRUBIN,TOTAL 0.5 mg/dL (0.2-1); TOT PROT 5.3 g/dl (6.4-8.2)
[2020-06-27 18:47] LABS: ALK PHOS 75 U/L (45-117)
[2020-06-27 19:09] LABS: SGPT/ALT < 6 U/L (13-61)
[2020-06-27] MEDS ORDERED: PHENYLEPHRINE HCL/COCOA BUTTER SUPPOSITORY RC PRN (20:42)
[2020-06-27] MEDS ORDERED: PT OWN MED DRAWER 7, Y5N ONE (23:16)
[2020-06-28] MEDS ORDERED: PT OWN MED DRAWER 7, Y5N ONE ×2 (01:00→06:43)
[2020-06-28] MEDS: VANCOMYCIN 250 MG/5 ML ORAL SOLUTION PO SCH ×4 (01:02→12:00)
[2020-06-28] MEDS: PANTOPRAZOLE 40 MG TABLET PO SCH (10:53)
[2020-06-28] MEDS: amLODIPine BESYLATE 10 MG TABLET (FP) PO SCH (10:53)
[2020-06-28] MEDS: hydrALAZINE HCL 50 MG TABLET (FP) PO SCH (10:53)
[2020-06-28] MEDS: ONDANSETRON 4 MG TABLET PO PRN ×2 (22:24→22:36)
[2020-06-28] MEDS: MECLIZINE HCL 12.5 MG TABLET PO PRN (22:26)
[2020-06-28] MEDS ORDERED: ONDANSETRON 4 MG/2 ML VIAL IVPUSH ONE (22:46)
[2020-06-29] MEDS: MECLIZINE HCL 12.5 MG TABLET PO PRN (00:24)
[2020-06-29] MEDS: hydrALAZINE HCL 50 MG TABLET (FP) PO SCH ×3 (00:24→21:35)
[2020-06-29] MEDS: ONDANSETRON 4 MG TABLET PO PRN (06:58)
[2020-06-29] MEDS: amLODIPine BESYLATE 10 MG TABLET (FP) PO SCH (09:35)
[2020-06-29] MEDS: POLYETHYLENE GLYCOL 3350 119 GM BTL PO SCH ×2 (10:35→21:35)
[2020-06-29] MEDS: PANTOPRAZOLE 40 MG TABLET PO SCH (10:35)
[2020-06-29 10:40] LABS: BASO % 0.6 % (0-2.0); EOS % 6.3 % (0-4.5); HEMOGLOBIN 10.1 GM/dL (10.7-15.3); LYMPH % 16.2 % (8-40); MCH 34.2 pg (25.7-33.7); MCHC 32.7 g/dl (32.0-36.0); MEAN CELL VOLUME 104.5 fl (80-96); MEAN PLT VOLUME 9.1 fl (7.5-11.1); MONO % 8.1 % (3.8-10.2); NEUT % 68.8 % (42.8-82.8); PLATELET COUNT 148 K/MM3 (134-434); RBC 2.97 M/mm3 (3.60-5.2); RDW 13.6 % (11.6-15.6); WHITE BLOOD COUNT 6.7 K/mm3 (4.0-10.0)
[2020-06-29 10:47] LABS: CHLORIDE 105 mmol/L (98-107); POTASSIUM 3.9 mmol/L (3.5-5.1); SODIUM 142 mmol/L (136-145)
[2020-06-29 10:50] LABS: ALBUMIN 2.9 g/dl (3.4-5.0); ANION GAP 7 MMOL/L (8-16); CALCIUM 9.6 mg/dL (8.5-10.1); CO2 29 mmol/L (21-32); GLUCOSE,RANDOM 95 mg/dL (74-106)
[2020-06-29 10:53] LABS: SGOT/AST 9 U/L (15-37)
[2020-06-29 10:54] LABS: BILIRUBIN,TOTAL 0.3 mg/dL (0.2-1); TOT PROT 6.2 g/dl (6.4-8.2)
[2020-06-29 10:55] LABS: ALK PHOS 87 U/L (45-117); SGPT/ALT < 6 U/L (13-61)
[2020-06-29 11:13] LABS: CREATININE 7.8 mg/dL (0.55-1.3)
[2020-06-29] MEDS: AMINO ACIDS/PROTEIN HYDROLYS 30 ML LIQUID.PKT PO SCH (17:47)
[2020-06-29] MEDS: ACETAMINOPHEN 325 MG TABLET (FP) PO PRN (18:18)
[2020-06-29] MEDS ORDERED: EPOETIN ALFA-EPBX 4,000 UNIT/ML VIAL IVPUSH ONE (22:45)
[2020-06-30] MEDS: ACETAMINOPHEN 325 MG TABLET (FP) PO PRN ×2 (05:54→12:23)
[2020-06-30] MEDS: MECLIZINE HCL 12.5 MG TABLET PO PRN (05:54)
[2020-06-30] MEDS: ONDANSETRON 4 MG TABLET PO PRN (08:12)
[2020-06-30] MEDS: AMINO ACIDS/PROTEIN HYDROLYS 30 ML LIQUID.PKT PO SCH ×3 (08:13→17:46)
[2020-06-30] MEDS ORDERED: SODIUM CHLORIDE 250 ML IV PRN (10:30)
[2020-06-30] MEDS: amLODIPine BESYLATE 10 MG TABLET (FP) PO SCH (10:36)
[2020-06-30] MEDS: PANTOPRAZOLE 40 MG TABLET PO SCH (10:36)
[2020-06-30] MEDS: hydrALAZINE HCL 50 MG TABLET (FP) PO SCH ×2 (10:36→21:39)
[2020-06-30] MEDS: POLYETHYLENE GLYCOL 3350 119 GM BTL PO SCH ×2 (10:36→21:49)
[2020-06-30] MEDS: GABAPENTIN 100 MG CAPSULE PO SCH (21:49)
[2020-06-30] MEDS ORDERED: GABAPENTIN 100 MG CAPSULE PO SCH (22:00)
[2020-06-30] MEDS ORDERED: SENNOSIDES 8.6MG TABLET (FP) PO SCH (22:00)
[2020-07-01] MEDS: POLYETHYLENE GLYCOL 3350 119 GM BTL PO SCH ×2 (06:02→13:26)
[2020-07-01] MEDS: GABAPENTIN 100 MG CAPSULE PO SCH ×2 (06:02→13:26)
[2020-07-01] MEDS: AMINO ACIDS/PROTEIN HYDROLYS 30 ML LIQUID.PKT PO SCH (07:19)
[2020-07-01] MEDS ORDERED: EPOETIN ALFA-EPBX 4,000 UNIT/ML VIAL IVPUSH ONE (11:00)
[2020-07-01] MEDS: amLODIPine BESYLATE 10 MG TABLET (FP) PO SCH (13:20)
[2020-07-01] MEDS: hydrALAZINE HCL 50 MG TABLET (FP) PO SCH (13:20)
[2020-07-01] MEDS: PANTOPRAZOLE 40 MG TABLET PO SCH (13:26)
[2020-07-01] MEDS: ACETAMINOPHEN 325 MG TABLET (FP) PO PRN (13:26)
[2020-07-01 15:12] VITALS: BP 141/78; PULSE 85; TEMP 99.1
== END 2020-07-01 14:50 | disposition home health service (06) | DRG 388 ==
LOC: JER 12:19 → JERBED 13:45 → OBSVTOIN 17:51 → J4W 20:58
PROVIDERS: ADMIT Family Medicine; ATTEND Family Medicine
PROC: 5A1D70Z Performance of Urinary Filtration, Intermittent, Less than 6 Hours Per Day (ICD-10-PCS; principal; 2020-06-27)
DX: K56.41 Fecal impaction (principal); N18.6 End stage renal disease; I69.351 Hemiplegia and hemiparesis following cerebral infarction affecting right dominant side; G40.209 Localization-related (focal) (partial) symptomatic epilepsy and epileptic syndromes with complex partial seizures, not intractable, without status epilepticus; I12.0 Hypertensive chronic kidney disease with stage 5 chronic kidney disease or end stage renal disease; K21.9 Gastro-esophageal reflux disease without esophagitis; E11.22 Type 2 diabetes mellitus with diabetic chronic kidney disease; Z99.2 Dependence on renal dialysis; R55 Syncope and collapse; R19.7 Diarrhea, unspecified; G20 Parkinson's disease; R00.1 Bradycardia, unspecified; K62.89 Other specified diseases of anus and rectum; M54.5 Low back pain; G47.33 Obstructive sleep apnea (adult) (pediatric)
CPT/HCPCS: 36415; 71045-TC-FY; 74176-TC; 80053; 82136; 82550; 82607; 83690; 83735; 83918; 84100; 84443; 84484; 85025; 87324; 87449; 93005; 93010; 94660; 97116-GP; 97162-GP; 99285-25; C9803; G0378; J0131; Q5106; U0003; U0005

== ENCOUNTER 2020-09-23 14:18 | Inpatient (IN) | payer OTHER ==
[2020-09-23] MEDS ORDERED: ONDANSETRON 4 MG/2 ML VIAL ONE (16:14)
[2020-09-23 16:43] LABS: BASO % 0.3 % (0-2.0); EOS % 0.7 % (0-4.5); HEMATOCRIT 34.5 % (32.4-45.2); HEMOGLOBIN 11.2 GM/dL (10.7-15.3); LYMPH % 8.7 % (8-40); MCH 33.2 pg (25.7-33.7); MCHC 32.5 g/dl (32.0-36.0); MEAN CELL VOLUME 101.9 fl (80-96); MEAN PLT VOLUME 9.2 fl (7.5-11.1); MONO % 7.4 % (3.8-10.2); NEUT % 82.9 % (42.8-82.8); PLATELET COUNT 162 10^3/uL (134-434); RBC 3.38 M/mm3 (3.60-5.2); RDW 14.8 % (11.6-15.6); WHITE BLOOD COUNT 11.5 K/mm3 (4.0-10.0)
[2020-09-23 16:53] LABS: INR 1.06 (0.83-1.09); PROTHROMBIN TIME (PATIENT) 12.8 SEC (9.7-13.0)
[2020-09-23 16:56] LABS: ACTIVATED PTT 29.2 SECONDS (25.2-36.5)
[2020-09-23 17:09] LABS: CHLORIDE 97 mmol/L (98-107); SODIUM 136 mmol/L (136-145)
[2020-09-23 17:10] LABS: ALBUMIN 3.4 g/dl (3.4-5.0); ANION GAP 9 MMOL/L (8-16); BLOOD UREA NITROGEN 19.1 mg/dL (7-18); CALCIUM 8.8 mg/dL (8.5-10.1); CO2 31 mmol/L (21-32); GLUCOSE,RANDOM 118 mg/dL (74-106)
[2020-09-23 17:13] LABS: CREATININE 2.7 mg/dL (0.55-1.3); SGOT/AST 23 U/L (15-37); SGPT/ALT 15 U/L (13-61)
[2020-09-23 17:15] LABS: BILIRUBIN,TOTAL 0.5 mg/dL (0.2-1); TOT PROT 6.6 g/dl (6.4-8.2)
[2020-09-23 17:16] LABS: ALK PHOS 119 U/L (45-117)
[2020-09-23 18:02] LABS: EPI CELLS 3 /uL (0-25.1); HYALINE CASTS 2 /uL (0-3.1); PH,URINE 8.5 (5.0-8.0); URINE APPEARANCE CLOUDY; URINE BACTERIA 11 /uL (0-1359); URINE BILIRUBIN NEGATIVE (NEGATIVE); URINE COLOR DK YELLOW; URINE GLUCOSE (UA) NEGATIVE (NEGATIVE); URINE KETONE NEGATIVE (NEGATIVE); URINE LEUK ESTERASE 3+ (NEGATIVE); URINE NITRITE NEGATIVE (NEGATIVE); URINE PROTEIN 2+ (NEGATIVE); URINE UROBILINOGEN 0.2 mg/dL (0.2-1.0); URINE WBC 617 /uL (0-25.8)
[2020-09-23] MEDS ORDERED: ONDANSETRON 4 MG/2 ML VIAL IVPUSH ONE (18:58)
[2020-09-23] MEDS ORDERED: VANCOMYCIN 1,000 MG in DEXTROSE 5%-WATER - 250 ML IVPB ONE (18:59)
[2020-09-23] MEDS ORDERED: CEFEPIME HCL/D5W 1 GM/50 ML BAG IVPB ONE ×2 (19:08→19:33)
[2020-09-23 19:24] LABS: URINE RBC 36.2 /uL (0-23.9); YEAST NONE SEEN (NEGATIVE)
[2020-09-23] MEDS ORDERED: VANCOMYCIN 1 GRAM (PRE-DOCKED) 1,000 MG/250 ML BAG IVPB ONE (20:01)
[2020-09-23] MEDS ORDERED: levETIRAcetam XR 500 MG TAB PO SCH (22:45)
[2020-09-24] MEDS: TOPIRAMATE 25 MG TABLET PO SCH ×3 (02:32→21:37)
[2020-09-24] MEDS: SEVELAMER CARBONATE 800 MG TAB (FP) PO SCH ×4 (02:32→16:31)
[2020-09-24] MEDS ORDERED: ACETAMINOPHEN 325 MG TABLET (FP) PO PRN (03:10)
[2020-09-24] MEDS ORDERED: ACETAMINOPHEN 1000 MG/100 ML VIAL (NON FORMULARY) IVPB ONE (03:11)
[2020-09-24] MEDS ORDERED: hydrALAZINE HCL 50 MG TABLET (FP) PO ONE (06:04)
[2020-09-24] MEDS: INSULIN SLIDING SCALE (NOVOLOG) 1 VIAL SQ SCH ×4 (06:35→21:47)
[2020-09-24] MEDS: QUEtiapine FUMARATE 100 MG TABLET (FP) PO SCH ×3 (08:49→21:34)
[2020-09-24 09:02] LABS: HEMATOCRIT 33.1 % (32.4-45.2); HEMOGLOBIN 10.9 GM/dL (10.7-15.3); MCH 33.8 pg (25.7-33.7); MCHC 32.9 g/dl (32.0-36.0); MEAN CELL VOLUME 102.8 fl (80-96); MEAN PLT VOLUME 9.6 fl (7.5-11.1); PLATELET COUNT 146 10^3/uL (134-434); RBC 3.22 M/mm3 (3.60-5.2); RDW 14.9 % (11.6-15.6); WHITE BLOOD COUNT 10.9 K/mm3 (4.0-10.0)
[2020-09-24 09:12] LABS: INR 1.11 (0.83-1.09); PROTHROMBIN TIME (PATIENT) 13.6 SEC (9.7-13.0)
[2020-09-24 09:20] LABS: CALCIUM 8.8 mg/dL (8.5-10.1)
[2020-09-24 09:21] LABS: BLOOD UREA NITROGEN 24.4 mg/dL (7-18); MAGNESIUM 1.9 mg/dL (1.8-2.4)
[2020-09-24 09:24] LABS: CREATININE 3.6 mg/dL (0.55-1.3); PHOSPHOROUS 3.4 mg/dL (2.5-4.9)
[2020-09-24 09:25] LABS: BILIRUBIN,TOTAL 0.4 mg/dL (0.2-1); TOT PROT 5.8 g/dl (6.4-8.2)
[2020-09-24] MEDS ORDERED: PT OWN MED DRAWER 7, Y5N ONE ×4 (09:45→12:36)
[2020-09-24] MEDS ORDERED: POTASSIUM CHLORIDE TABS 20 MEQ TABLET.ER (FP) PO ONE (09:51)
[2020-09-24] MEDS ORDERED: hydrALAZINE HCL 50 MG TABLET (FP) PO SCH (10:00)
[2020-09-24] MEDS: CLOPIDOGREL BISULFATE 75 MG TABLET (FP) PO SCH ×2 (10:01→12:09)
[2020-09-24] MEDS ORDERED: SODIUM CHLORIDE 250 ML IV PRN (10:41)
[2020-09-24] MEDS: levETIRAcetam XR 750 MG TAB PO SCH ×2 (12:36→21:34)
[2020-09-24] MEDS ORDERED: DAPTOMYCIN 750 MG in SODIUM CHLORIDE 50 ML IVPB ONE (15:34)
[2020-09-24] MEDS: ATORVASTATIN CA 80 MG TABLET (FP) PO SCH (21:38)
[2020-09-24] MEDS: hydrALAZINE HCL 50 MG TABLET (FP) PO SCH (21:38)
[2020-09-25] MEDS: INSULIN SLIDING SCALE (NOVOLOG) 1 VIAL SQ SCH ×4 (06:23→21:36)
[2020-09-25 08:32] LABS: BASO % 0.6 % (0-2.0); EOS % 3.3 % (0-4.5); HEMATOCRIT 35.1 % (32.4-45.2); HEMOGLOBIN 11.3 GM/dL (10.7-15.3); LYMPH % 16.5 % (8-40); MCH 33.2 pg (25.7-33.7); MCHC 32.3 g/dl (32.0-36.0); MEAN CELL VOLUME 102.8 fl (80-96); MEAN PLT VOLUME 9.5 fl (7.5-11.1); MONO % 8.6 % (3.8-10.2); PLATELET COUNT 153 10^3/uL (134-434); RBC 3.41 M/mm3 (3.60-5.2); RDW 14.6 % (11.6-15.6); WHITE BLOOD COUNT 8.3 K/mm3 (4.0-10.0)
[2020-09-25 08:54] LABS: ALBUMIN 2.8 g/dl (3.4-5.0); BLOOD UREA NITROGEN 28.6 mg/dL (7-18); CALCIUM 8.6 mg/dL (8.5-10.1)
[2020-09-25 08:55] LABS: MAGNESIUM 1.9 mg/dL (1.8-2.4)
[2020-09-25 08:58] LABS: CREATININE 4.6 mg/dL (0.55-1.3); PHOSPHOROUS 3.6 mg/dL (2.5-4.9)
[2020-09-25 08:59] LABS: BILIRUBIN,TOTAL 0.5 mg/dL (0.2-1)
[2020-09-25] MEDS ORDERED: PT OWN MED DRAWER 7, Y5N ONE ×2 (09:55→21:18)
[2020-09-25] MEDS: SEVELAMER CARBONATE 800 MG TAB (FP) PO SCH ×3 (11:15→19:12)
[2020-09-25] MEDS: CLOPIDOGREL BISULFATE 75 MG TABLET (FP) PO SCH (11:15)
[2020-09-25] MEDS: TOPIRAMATE 25 MG TABLET PO SCH ×2 (11:15→21:35)
[2020-09-25] MEDS: hydrALAZINE HCL 50 MG TABLET (FP) PO SCH ×2 (11:15→21:35)
[2020-09-25] MEDS: levETIRAcetam XR 750 MG TAB PO SCH ×2 (11:15→21:36)
[2020-09-25] MEDS: QUEtiapine FUMARATE 100 MG TABLET (FP) PO SCH ×2 (11:15→21:35)
[2020-09-25] MEDS ORDERED: DAPTOMYCIN 750 MG in SODIUM CHLORIDE 50 ML IVPB ONE (14:06)
[2020-09-25] MEDS ORDERED: TRIMETHOBENZAMIDE HCL 200MG/2ML INJ IM ONE (14:20)
[2020-09-25] MEDS ORDERED: ONDANSETRON 4 MG/2 ML VIAL ONE (14:21)
[2020-09-25] MEDS ORDERED: ONDANSETRON 4 MG/2 ML VIAL IVPUSH ONE (14:30)
[2020-09-25] MEDS ORDERED: SODIUM CHLORIDE 250 ML IV PRN (15:55)
[2020-09-25] MEDS: AMINO ACIDS/PROTEIN HYDROLYS 30 ML LIQUID.PKT PO SCH (19:12)
[2020-09-25] MEDS: ATORVASTATIN CA 80 MG TABLET (FP) PO SCH (21:35)
[2020-09-26] MEDS ORDERED: ACETAMINOPHEN 1000 MG/100 ML VIAL (NON FORMULARY) IVPB ONE (02:41)
[2020-09-26] MEDS: INSULIN SLIDING SCALE (NOVOLOG) 1 VIAL SQ SCH ×4 (06:43→22:12)
[2020-09-26] MEDS ORDERED: EPOETIN ALFA-EPBX 3,000 UNIT/ML VIAL SQ ONE (09:15)
[2020-09-26] MEDS: SEVELAMER CARBONATE 800 MG TAB (FP) PO SCH ×3 (09:36→17:58)
[2020-09-26 09:55] LABS: BASO % 0.5 % (0-2.0); EOS % 4.4 % (0-4.5); HEMATOCRIT 34.7 % (32.4-45.2); HEMOGLOBIN 11.2 GM/dL (10.7-15.3); LYMPH % 16.1 % (8-40); MCH 33.1 pg (25.7-33.7); MCHC 32.3 g/dl (32.0-36.0); MEAN CELL VOLUME 102.3 fl (80-96); MEAN PLT VOLUME 9.4 fl (7.5-11.1); MONO % 8.3 % (3.8-10.2); NEUT % 70.7 % (42.8-82.8); PLATELET COUNT 162 10^3/uL (134-434); RDW 14.5 % (11.6-15.6); WHITE BLOOD COUNT 7.8 K/mm3 (4.0-10.0)
[2020-09-26 10:08] LABS: ALBUMIN 2.9 g/dl (3.4-5.0); CALCIUM 8.8 mg/dL (8.5-10.1)
[2020-09-26 10:09] LABS: BLOOD UREA NITROGEN 18.3 mg/dL (7-18)
[2020-09-26 10:14] LABS: BILIRUBIN,TOTAL 0.4 mg/dL (0.2-1)
[2020-09-26] MEDS: AMINO ACIDS/PROTEIN HYDROLYS 30 ML LIQUID.PKT PO SCH ×2 (13:31→17:58)
[2020-09-26] MEDS: QUEtiapine FUMARATE 100 MG TABLET (FP) PO SCH ×2 (13:31→22:12)
[2020-09-26] MEDS: levETIRAcetam XR 750 MG TAB PO SCH ×2 (13:31→22:11)
[2020-09-26] MEDS: TOPIRAMATE 25 MG TABLET PO SCH ×2 (13:32→22:12)
[2020-09-26] MEDS: hydrALAZINE HCL 50 MG TABLET (FP) PO SCH ×4 (13:33→22:11)
[2020-09-26] MEDS: CLOPIDOGREL BISULFATE 75 MG TABLET (FP) PO SCH (13:36)
[2020-09-26] MEDS: KCL 10 MEQ IVPB 10 MEQ/100 ML INFUS.BAG IVPB SCH ×3 (13:36→17:53)
[2020-09-26 22:06] LABS: CALCIUM 8.9 mg/dL (8.5-10.1)
[2020-09-26 22:07] LABS: BLOOD UREA NITROGEN 10.5 mg/dL (7-18)
[2020-09-26 22:10] LABS: CREATININE 2.9 mg/dL (0.55-1.3)
[2020-09-26] MEDS: ATORVASTATIN CA 80 MG TABLET (FP) PO SCH (22:12)
[2020-09-26] MEDS ORDERED: PT OWN MED DRAWER 7, Y5N ONE (22:25)
[2020-09-27] MEDS: INSULIN SLIDING SCALE (NOVOLOG) 1 VIAL SQ SCH ×4 (06:32→21:46)
[2020-09-27] MEDS: hydrALAZINE HCL 50 MG TABLET (FP) PO SCH ×2 (06:32→15:39)
[2020-09-27] MEDS: AMINO ACIDS/PROTEIN HYDROLYS 30 ML LIQUID.PKT PO SCH ×2 (08:01→18:03)
[2020-09-27] MEDS: SEVELAMER CARBONATE 800 MG TAB (FP) PO SCH ×3 (08:01→18:02)
[2020-09-27] MEDS ORDERED: DAPTOMYCIN 750 MG in SODIUM CHLORIDE 100 ML IVPB ONE (10:00)
[2020-09-27 10:22] LABS: BASO % 0.6 % (0-2.0); EOS % 4.3 % (0-4.5); HEMATOCRIT 35.8 % (32.4-45.2); HEMOGLOBIN 11.4 GM/dL (10.7-15.3); LYMPH % 14.9 % (8-40); MEAN CELL VOLUME 103.1 fl (80-96); MEAN PLT VOLUME 9.4 fl (7.5-11.1); MONO % 8.3 % (3.8-10.2); NEUT % 71.9 % (42.8-82.8); PLATELET COUNT 171 10^3/uL (134-434); RBC 3.47 M/mm3 (3.60-5.2); RDW 14.6 % (11.6-15.6); WHITE BLOOD COUNT 8.5 K/mm3 (4.0-10.0)
[2020-09-27 10:43] LABS: BLOOD UREA NITROGEN 13.7 mg/dL (7-18); CALCIUM 9.2 mg/dL (8.5-10.1); MAGNESIUM 1.8 mg/dL (1.8-2.4)
[2020-09-27 10:46] LABS: CREATININE 3.5 mg/dL (0.55-1.3); PHOSPHOROUS 2.5 mg/dL (2.5-4.9)
[2020-09-27 10:48] LABS: BILIRUBIN,TOTAL 0.5 mg/dL (0.2-1); TOT PROT 6.1 g/dl (6.4-8.2)
[2020-09-27] MEDS: CLOPIDOGREL BISULFATE 75 MG TABLET (FP) PO SCH (11:01)
[2020-09-27] MEDS: QUEtiapine FUMARATE 100 MG TABLET (FP) PO SCH ×2 (11:02→21:47)
[2020-09-27] MEDS: TOPIRAMATE 25 MG TABLET PO SCH (11:02)
[2020-09-27] MEDS: levETIRAcetam XR 750 MG TAB PO SCH ×2 (11:04→22:10)
[2020-09-27] MEDS ORDERED: POTASSIUM CHLORIDE ORAL LIQUID 20 MEQ/15 ML PO ONE (19:22)
[2020-09-27] MEDS: CARVEDILOL 6.25 MG TABLET (FP) PO SCH (21:47)
[2020-09-27] MEDS: GABAPENTIN 300 MG CAPSULE PO SCH (21:47)
[2020-09-27] MEDS: amLODIPine BESYLATE 10 MG TABLET (FP) PO SCH (21:47)
[2020-09-27] MEDS: clonazePAM 0.5 MG TABLET PO SCH (21:47)
[2020-09-27] MEDS: PANTOPRAZOLE 40 MG TABLET PO SCH (21:47)
[2020-09-27] MEDS: hydrALAZINE HCL 25 MG TABLET (FP) PO SCH (21:47)
[2020-09-28] MEDS: GABAPENTIN 300 MG CAPSULE PO SCH ×4 (06:09→21:03)
[2020-09-28] MEDS: hydrALAZINE HCL 25 MG TABLET (FP) PO SCH ×3 (06:09→21:03)
[2020-09-28] MEDS: INSULIN SLIDING SCALE (NOVOLOG) 1 VIAL SQ SCH ×4 (06:09→21:04)
[2020-09-28 07:55] LABS: BASO % 0.5 % (0-2.0); EOS % 5.5 % (0-4.5); HEMATOCRIT 33.1 % (32.4-45.2); HEMOGLOBIN 10.9 GM/dL (10.7-15.3); LYMPH % 21.6 % (8-40); MCH 33.5 pg (25.7-33.7); MEAN CELL VOLUME 101.5 fl (80-96); MEAN PLT VOLUME 9.2 fl (7.5-11.1); MONO % 9.6 % (3.8-10.2); NEUT % 62.8 % (42.8-82.8); PLATELET COUNT 166 10^3/uL (134-434); RBC 3.27 M/mm3 (3.60-5.2); RDW 14.6 % (11.6-15.6); WHITE BLOOD COUNT 8.7 K/mm3 (4.0-10.0)
[2020-09-28 08:15] LABS: ALBUMIN 2.8 g/dl (3.4-5.0); BLOOD UREA NITROGEN 18.5 mg/dL (7-18); CALCIUM 8.9 mg/dL (8.5-10.1)
[2020-09-28 08:18] LABS: CREATININE 4.6 mg/dL (0.55-1.3)
[2020-09-28 08:19] LABS: PHOSPHOROUS 3.1 mg/dL (2.5-4.9)
[2020-09-28 08:20] LABS: BILIRUBIN,TOTAL 0.4 mg/dL (0.2-1); TOT PROT 5.9 g/dl (6.4-8.2)
[2020-09-28] MEDS: SEVELAMER CARBONATE 800 MG TAB (FP) PO SCH ×3 (09:24→18:08)
[2020-09-28] MEDS: clonazePAM 0.5 MG TABLET PO SCH ×2 (09:24→21:03)
[2020-09-28] MEDS: AMINO ACIDS/PROTEIN HYDROLYS 30 ML LIQUID.PKT PO SCH ×2 (09:24→18:08)
[2020-09-28] MEDS: PANTOPRAZOLE 40 MG TABLET PO SCH (09:25)
[2020-09-28] MEDS: CLOPIDOGREL BISULFATE 75 MG TABLET (FP) PO SCH (09:25)
[2020-09-28] MEDS: CARVEDILOL 6.25 MG TABLET (FP) PO SCH ×2 (09:25→21:03)
[2020-09-28] MEDS: amLODIPine BESYLATE 10 MG TABLET (FP) PO SCH (09:25)
[2020-09-28] MEDS ORDERED: PT OWN MED DRAWER 7, Y5N ONE ×2 (09:28→20:46)
[2020-09-28] MEDS: levETIRAcetam XR 750 MG TAB PO SCH ×2 (09:30→21:04)
[2020-09-28] MEDS: QUEtiapine FUMARATE 100 MG TABLET (FP) PO SCH ×2 (09:30→21:03)
[2020-09-28] MEDS: ACETAMINOPHEN 325 MG TABLET (FP) PO PRN (15:09)
[2020-09-28] MEDS ORDERED: ACETAMINOPHEN 1000 MG/100 ML VIAL (NON FORMULARY) IVPB ONE (18:00)
[2020-09-29] MEDS ORDERED: PT OWN MED DRAWER 7, Y5N ONE ×4 (05:00→23:14)
[2020-09-29] MEDS: GABAPENTIN 300 MG CAPSULE PO SCH ×4 (05:15→23:19)
[2020-09-29] MEDS: hydrALAZINE HCL 25 MG TABLET (FP) PO SCH ×3 (05:15→23:19)
[2020-09-29] MEDS: INSULIN SLIDING SCALE (NOVOLOG) 1 VIAL SQ SCH ×4 (06:04→23:10)
[2020-09-29 08:11] LABS: CHLORIDE 99 mmol/L (98-107); SODIUM 138 mmol/L (136-145)
[2020-09-29 08:16] LABS: CALCIUM 8.4 mg/dL (8.5-10.1)
[2020-09-29 08:17] LABS: ALBUMIN 2.5 g/dl (3.4-5.0); ANION GAP 9 MMOL/L (8-16); BLOOD UREA NITROGEN 28.2 mg/dL (7-18); CO2 29 mmol/L (21-32); GLUCOSE,RANDOM 76 mg/dL (74-106)
[2020-09-29 08:20] LABS: CREATININE 5.4 mg/dL (0.55-1.3); SGOT/AST 9 U/L (15-37)
[2020-09-29 08:21] LABS: BILIRUBIN,TOTAL 0.3 mg/dL (0.2-1); TOT PROT 5.3 g/dl (6.4-8.2)
[2020-09-29 08:22] LABS: ALK PHOS 72 U/L (45-117)
[2020-09-29 08:29] LABS: SGPT/ALT < 6 U/L (13-61)
[2020-09-29 08:37] LABS: HEMATOCRIT 30.9 % (32.4-45.2); HEMOGLOBIN 9.8 GM/dL (10.7-15.3); MCH 32.8 pg (25.7-33.7); MCHC 31.8 g/dl (32.0-36.0); MEAN CELL VOLUME 103.2 fl (80-96); MEAN PLT VOLUME 9.3 fl (7.5-11.1); PLATELET COUNT 167 10^3/uL (134-434); RBC 2.99 M/mm3 (3.60-5.2); RDW 14.5 % (11.6-15.6); WHITE BLOOD COUNT 6.3 K/mm3 (4.0-10.0)
[2020-09-29] MEDS: SEVELAMER CARBONATE 800 MG TAB (FP) PO SCH ×3 (09:08→18:25)
[2020-09-29] MEDS: AMINO ACIDS/PROTEIN HYDROLYS 30 ML LIQUID.PKT PO SCH ×2 (09:08→18:25)
[2020-09-29] MEDS: ACETAMINOPHEN 325 MG TABLET (FP) PO PRN (09:08)
[2020-09-29] MEDS: CARVEDILOL 6.25 MG TABLET (FP) PO SCH ×2 (09:09→23:19)
[2020-09-29] MEDS: PANTOPRAZOLE 40 MG TABLET PO SCH (09:09)
[2020-09-29] MEDS: CLOPIDOGREL BISULFATE 75 MG TABLET (FP) PO SCH (09:09)
[2020-09-29] MEDS: clonazePAM 0.5 MG TABLET PO SCH ×2 (09:09→23:19)
[2020-09-29] MEDS: amLODIPine BESYLATE 10 MG TABLET (FP) PO SCH (09:09)
[2020-09-29] MEDS: QUEtiapine FUMARATE 100 MG TABLET (FP) PO SCH ×2 (10:30→23:19)
[2020-09-29] MEDS: levETIRAcetam XR 750 MG TAB PO SCH ×2 (10:30→23:20)
[2020-09-29] MEDS ORDERED: ONDANSETRON 4 MG/2 ML VIAL IVPUSH PRN (12:40)
[2020-09-29] MEDS ORDERED: ONDANSETRON 4 MG/2 ML VIAL IVPUSH SCH (12:45)
[2020-09-29 14:58] VITALS: BMI 37.7
[2020-09-29] MEDS ORDERED: DAPTOMYCIN 750 MG in SODIUM CHLORIDE 50 ML IVPB ONE (15:00)
[2020-09-30] MEDS: hydrALAZINE HCL 25 MG TABLET (FP) PO SCH ×3 (05:38→22:37)
[2020-09-30] MEDS: GABAPENTIN 300 MG CAPSULE PO SCH ×5 (05:38→23:15)
[2020-09-30] MEDS: INSULIN SLIDING SCALE (NOVOLOG) 1 VIAL SQ SCH ×4 (06:00→22:39)
[2020-09-30] MEDS: SEVELAMER CARBONATE 800 MG TAB (FP) PO SCH ×3 (07:51→17:52)
[2020-09-30] MEDS: AMINO ACIDS/PROTEIN HYDROLYS 30 ML LIQUID.PKT PO SCH ×2 (07:51→17:52)
[2020-09-30] MEDS ORDERED: levETIRAcetam 500 MG/5 ML INJECTION VIAL IVPB ONE (09:56)
[2020-09-30] MEDS ORDERED: VITAMIN B COMP W-C 1 EA TABLET (NEPHRO-VITE) PO SCH (10:00)
[2020-09-30 10:18] LABS: BASO % 0.7 % (0-2.0); EOS % 5.6 % (0-4.5); HEMATOCRIT 32.5 % (32.4-45.2); HEMOGLOBIN 10.3 GM/dL (10.7-15.3); LYMPH % 25.6 % (8-40); MCH 32.9 pg (25.7-33.7); MCHC 31.6 g/dl (32.0-36.0); MEAN PLT VOLUME 9.2 fl (7.5-11.1); MONO % 10.1 % (3.8-10.2); PLATELET COUNT 174 10^3/uL (134-434); RBC 3.12 M/mm3 (3.60-5.2); RDW 14.4 % (11.6-15.6); WHITE BLOOD COUNT 7.1 K/mm3 (4.0-10.0)
[2020-09-30 11:08] LABS: ALBUMIN 2.5 g/dl (3.4-5.0); CALCIUM 8.3 mg/dL (8.5-10.1)
[2020-09-30 11:09] LABS: BLOOD UREA NITROGEN 47.2 mg/dL (7-18)
[2020-09-30 11:12] LABS: CREATININE 6.4 mg/dL (0.55-1.3); PHOSPHOROUS 5.1 mg/dL (2.5-4.9)
[2020-09-30 11:13] LABS: BILIRUBIN,TOTAL 0.3 mg/dL (0.2-1); TOT PROT 5.2 g/dl (6.4-8.2)
[2020-09-30] MEDS: levETIRAcetam XR 750 MG TAB PO SCH ×2 (11:47→22:40)
[2020-09-30] MEDS: clonazePAM 0.5 MG TABLET PO SCH ×2 (11:47→22:37)
[2020-09-30] MEDS: CARVEDILOL 6.25 MG TABLET (FP) PO SCH ×2 (11:47→22:37)
[2020-09-30] MEDS: QUEtiapine FUMARATE 100 MG TABLET (FP) PO SCH (11:48)
[2020-09-30] MEDS: PANTOPRAZOLE 40 MG TABLET PO SCH (11:48)
[2020-09-30] MEDS: amLODIPine BESYLATE 10 MG TABLET (FP) PO SCH (11:48)
[2020-09-30] MEDS: CLOPIDOGREL BISULFATE 75 MG TABLET (FP) PO SCH (11:48)
[2020-09-30] MEDS ORDERED: DEXTROSE 50%-WATER - 25 GM/50 ML VIAL IVPUSH ONE ×2 (12:07→18:01)
[2020-09-30] MEDS ORDERED: DEXTROSE 50%-WATER 25 GM/50 ML DISP.SYRIN ONE (12:21)
[2020-09-30] MEDS ORDERED: PT OWN MED DRAWER 7, Y5N ONE ×2 (12:40→22:32)
[2020-09-30] MEDS ORDERED: LIDOCAINE HCL 1%, 10 MG/ML (20ML VIAL) NR ONE (15:01)
[2020-09-30] MEDS ORDERED: ACETAMINOPHEN 325 MG TABLET (FP) PO PRN (15:48)
[2020-09-30] MEDS ORDERED: ONDANSETRON 4 MG/2 ML VIAL IVPUSH PRN (15:48)
[2020-09-30] MEDS ORDERED: ACETAMINOPHEN 1000 MG/100 ML VIAL (NON FORMULARY) IVPB ONE (15:50)
[2020-09-30] MEDS ORDERED: DEXTROSE 50%-WATER - 25 GM/50 ML VIAL ONE (19:56)
[2020-09-30] MEDS: QUEtiapine FUMARATE 200 MG TABLET PO SCH (22:38)
[2020-10-01] MEDS: GABAPENTIN 300 MG CAPSULE PO SCH ×3 (06:14→21:44)
[2020-10-01] MEDS: INSULIN SLIDING SCALE (NOVOLOG) 1 VIAL SQ SCH ×4 (06:14→21:42)
[2020-10-01] MEDS: hydrALAZINE HCL 25 MG TABLET (FP) PO SCH ×3 (06:14→21:43)
[2020-10-01] MEDS: AMINO ACIDS/PROTEIN HYDROLYS 30 ML LIQUID.PKT PO SCH ×2 (08:08→17:48)
[2020-10-01] MEDS: SEVELAMER CARBONATE 800 MG TAB (FP) PO SCH ×3 (08:08→17:48)
[2020-10-01] MEDS ORDERED: EPOETIN ALFA-EPBX 3,000 UNIT/ML VIAL IVPUSH ONE (10:30)
[2020-10-01 10:41] LABS: BASO % 0.6 % (0-2.0); EOS % 5.8 % (0-4.5); HEMATOCRIT 31.1 % (32.4-45.2); HEMOGLOBIN 9.9 GM/dL (10.7-15.3); LYMPH % 23.8 % (8-40); MCH 32.6 pg (25.7-33.7); MCHC 31.8 g/dl (32.0-36.0); MEAN CELL VOLUME 102.6 fl (80-96); MEAN PLT VOLUME 9.2 fl (7.5-11.1); MONO % 9.2 % (3.8-10.2); NEUT % 60.6 % (42.8-82.8); PLATELET COUNT 207 10^3/uL (134-434); RBC 3.03 M/mm3 (3.60-5.2); RDW 14.5 % (11.6-15.6); WHITE BLOOD COUNT 5.8 K/mm3 (4.0-10.0)
[2020-10-01 11:11] LABS: ALBUMIN 2.5 g/dl (3.4-5.0); CALCIUM 8.2 mg/dL (8.5-10.1)
[2020-10-01 11:12] LABS: BLOOD UREA NITROGEN 63.1 mg/dL (7-18)
[2020-10-01 11:15] LABS: BILIRUBIN,TOTAL 0.3 mg/dL (0.2-1); CREATININE 7.2 mg/dL (0.55-1.3); PHOSPHOROUS 5.8 mg/dL (2.5-4.9)
[2020-10-01 11:16] LABS: TOT PROT 5.3 g/dl (6.4-8.2)
[2020-10-01] MEDS ORDERED: diphenhydrAMINE HCL 25 MG CAPSULE (FP) PO ONE (11:26)
[2020-10-01] MEDS: HEPARIN NA (PORCINE) 5,000 UNITS/ML 1ML VIAL IVPUSH ONE ×2 (12:05→14:49)
[2020-10-01] MEDS ORDERED: SODIUM CHLORIDE 250 ML IV PRN (12:05)
[2020-10-01] MEDS ORDERED: VANCOMYCIN 1 GRAM (PRE-DOCKED) 1,000 MG/250 ML BAG IVPB ONE (12:15)
[2020-10-01] MEDS: QUEtiapine FUMARATE 200 MG TABLET PO SCH ×2 (14:48→21:44)
[2020-10-01] MEDS: CLOPIDOGREL BISULFATE 75 MG TABLET (FP) PO SCH (14:53)
[2020-10-01] MEDS: amLODIPine BESYLATE 10 MG TABLET (FP) PO SCH (14:55)
[2020-10-01] MEDS: VITAMIN B COMP W-C 1 EA TABLET (NEPHRO-VITE) PO SCH (14:55)
[2020-10-01] MEDS: PANTOPRAZOLE 40 MG TABLET PO SCH (14:55)
[2020-10-01] MEDS: CARVEDILOL 6.25 MG TABLET (FP) PO SCH ×2 (14:56→21:43)
[2020-10-01] MEDS ORDERED: PT OWN MED DRAWER 7, Y5N ONE (15:01)
[2020-10-01] MEDS: clonazePAM 0.5 MG TABLET PO SCH ×2 (15:02→21:44)
[2020-10-01] MEDS: levETIRAcetam XR 750 MG TAB PO SCH ×2 (15:02→21:44)
[2020-10-01] MEDS: DEXTROSE 5%-WATER - 1,000 ML IV SCH (21:43)
[2020-10-02] MEDS: GABAPENTIN 300 MG CAPSULE PO SCH ×3 (06:33→22:50)
[2020-10-02] MEDS: INSULIN SLIDING SCALE (NOVOLOG) 1 VIAL SQ SCH ×4 (06:33→23:57)
[2020-10-02] MEDS: hydrALAZINE HCL 25 MG TABLET (FP) PO SCH ×3 (06:33→22:50)
[2020-10-02] MEDS: SEVELAMER CARBONATE 800 MG TAB (FP) PO SCH ×3 (08:56→17:54)
[2020-10-02 09:53] LABS: BASO % 0.5 % (0-2.0); EOS % 8.4 % (0-4.5); HEMATOCRIT 31.1 % (32.4-45.2); HEMOGLOBIN 9.9 GM/dL (10.7-15.3); LYMPH % 20.9 % (8-40); MCH 32.8 pg (25.7-33.7); MCHC 31.9 g/dl (32.0-36.0); MEAN CELL VOLUME 102.9 fl (80-96); MEAN PLT VOLUME 8.5 fl (7.5-11.1); MONO % 10.5 % (3.8-10.2); NEUT % 59.7 % (42.8-82.8); PLATELET COUNT 175 10^3/uL (134-434); RBC 3.02 M/mm3 (3.60-5.2); RDW 14.7 % (11.6-15.6)
[2020-10-02 10:34] LABS: ALBUMIN 2.7 g/dl (3.4-5.0); CALCIUM 9.1 mg/dL (8.5-10.1)
[2020-10-02 10:37] LABS: CREATININE 4.9 mg/dL (0.55-1.3); PHOSPHOROUS 4.6 mg/dL (2.5-4.9)
[2020-10-02 10:38] LABS: BILIRUBIN,TOTAL 0.4 mg/dL (0.2-1)
[2020-10-02 10:39] LABS: TOT PROT 5.7 g/dl (6.4-8.2)
[2020-10-02] MEDS ORDERED: PT OWN MED DRAWER 7, Y5N ONE ×4 (11:32→22:53)
[2020-10-02] MEDS: AMINO ACIDS/PROTEIN HYDROLYS 30 ML LIQUID.PKT PO SCH ×2 (11:56→17:54)
[2020-10-02] MEDS: clonazePAM 0.5 MG TABLET PO SCH ×2 (11:56→22:51)
[2020-10-02] MEDS: VITAMIN B COMP W-C 1 EA TABLET (NEPHRO-VITE) PO SCH (11:57)
[2020-10-02] MEDS: CARVEDILOL 6.25 MG TABLET (FP) PO SCH ×2 (11:58→22:50)
[2020-10-02] MEDS: levETIRAcetam XR 750 MG TAB PO SCH ×2 (11:58→22:54)
[2020-10-02] MEDS: amLODIPine BESYLATE 10 MG TABLET (FP) PO SCH (11:59)
[2020-10-02] MEDS: CLOPIDOGREL BISULFATE 75 MG TABLET (FP) PO SCH (11:59)
[2020-10-02] MEDS: QUEtiapine FUMARATE 200 MG TABLET PO SCH ×2 (11:59→22:50)
[2020-10-02] MEDS: PANTOPRAZOLE 40 MG TABLET PO SCH (11:59)
[2020-10-02 12:08] LABS: HEP B CORE AB, TOT Negative (Negative)
[2020-10-02] MEDS: DEXTROSE 5%-WATER - 1,000 ML IV SCH (12:56)
[2020-10-02] MEDS: ACETAMINOPHEN 500 MG TABLET (FP) PO PRN (17:55)
[2020-10-03] MEDS ORDERED: ALBUTEROL SO4 HFA INHALER IH PRN (00:01)
[2020-10-03] MEDS: GABAPENTIN 300 MG CAPSULE PO SCH ×2 (06:07→14:18)
[2020-10-03] MEDS: hydrALAZINE HCL 25 MG TABLET (FP) PO SCH ×2 (06:07→14:18)
[2020-10-03] MEDS: ACETAMINOPHEN 500 MG TABLET (FP) PO PRN ×2 (06:10→13:27)
[2020-10-03] MEDS: INSULIN SLIDING SCALE (NOVOLOG) 1 VIAL SQ SCH ×3 (06:21→18:31)
[2020-10-03] MEDS ORDERED: SODIUM CHLORIDE 250 ML IV PRN (07:29)
[2020-10-03] MEDS ORDERED: EPOETIN ALFA-EPBX 3,000 UNIT/ML VIAL SQ ONE (08:00)
[2020-10-03] MEDS: HEPARIN NA (PORCINE) 5,000 UNITS/ML 1ML VIAL IVPUSH ONE ×2 (09:51→19:18)
[2020-10-03] MEDS: HEPARIN NA (PORCINE) 5,000 UNITS/ML 1ML VIAL IVPUSH SCH ×4 (09:59→19:18)
[2020-10-03] MEDS: SEVELAMER CARBONATE 800 MG TAB (FP) PO SCH ×3 (11:23→18:32)
[2020-10-03] MEDS ORDERED: VANCOMYCIN 500 MG in DEXTROSE 5%-WATER - 100 ML IVPB ONE (11:50)
[2020-10-03] MEDS ORDERED: diphenhydrAMINE HCL 25 MG CAPSULE (FP) PO ONE (12:12)
[2020-10-03] MEDS ORDERED: PT OWN MED DRAWER 7, Y5N ONE (12:56)
[2020-10-03 13:20] VITALS: PULSE 87
[2020-10-03] MEDS: QUEtiapine FUMARATE 200 MG TABLET PO SCH (13:23)
[2020-10-03] MEDS: clonazePAM 0.5 MG TABLET PO SCH (13:23)
[2020-10-03] MEDS: CARVEDILOL 6.25 MG TABLET (FP) PO SCH (13:23)
[2020-10-03] MEDS: CLOPIDOGREL BISULFATE 75 MG TABLET (FP) PO SCH (13:24)
[2020-10-03] MEDS: PANTOPRAZOLE 40 MG TABLET PO SCH (13:24)
[2020-10-03] MEDS: amLODIPine BESYLATE 10 MG TABLET (FP) PO SCH (13:24)
[2020-10-03] MEDS: levETIRAcetam XR 750 MG TAB PO SCH (13:25)
[2020-10-03] MEDS: VITAMIN B COMP W-C 1 EA TABLET (NEPHRO-VITE) PO SCH (13:25)
[2020-10-03] MEDS: AMINO ACIDS/PROTEIN HYDROLYS 30 ML LIQUID.PKT PO SCH ×2 (14:18→18:32)
[2020-10-03 18:25] VITALS: BP 138/82; TEMP 98.3
== END 2020-10-03 19:43 | disposition home or self-care (01) | DRG 314 ==
LOC: JER 14:18 → JERBED 21:20 → J5S 09-24 00:11
PROVIDERS: ADMIT Hospitalist; ATTEND Student in an Organized Health Care Education/Training Program
PROC: 05PYX3Z Removal of Infusion Device from Upper Vein, External Approach (ICD-10-PCS; principal; 2020-09-24)
PROC: 06HM33Z Insertion of Infusion Device into Right Femoral Vein, Percutaneous Approach (ICD-10-PCS; 2020-09-25)
PROC: 5A1D70Z Performance of Urinary Filtration, Intermittent, Less than 6 Hours Per Day (ICD-10-PCS; 2020-09-25)
PROC: 5A1D70Z Performance of Urinary Filtration, Intermittent, Less than 6 Hours Per Day (ICD-10-PCS; 2020-09-26)
PROC: 02H633Z Insertion of Infusion Device into Right Atrium, Percutaneous Approach (ICD-10-PCS; 2020-09-30)
PROC: B518ZZA Fluoroscopy of Superior Vena Cava, Guidance (ICD-10-PCS; 2020-09-30)
PROC: 5A1D70Z Performance of Urinary Filtration, Intermittent, Less than 6 Hours Per Day (ICD-10-PCS; 2020-10-01)
PROC: 5A1D70Z Performance of Urinary Filtration, Intermittent, Less than 6 Hours Per Day (ICD-10-PCS; 2020-10-03)
DX: T80.211A Bloodstream infection due to central venous catheter, initial encounter (principal); N18.6 End stage renal disease; A41.1 Sepsis due to other specified staphylococcus; I13.2 Hypertensive heart and chronic kidney disease with heart failure and with stage 5 chronic kidney disease, or end stage renal disease; I50.32 Chronic diastolic (congestive) heart failure; N39.0 Urinary tract infection, site not specified; I69.351 Hemiplegia and hemiparesis following cerebral infarction affecting right dominant side; G40.909 Epilepsy, unspecified, not intractable, without status epilepticus; K21.9 Gastro-esophageal reflux disease without esophagitis; R42 Dizziness and giddiness; E11.51 Type 2 diabetes mellitus with diabetic peripheral angiopathy without gangrene; E11.22 Type 2 diabetes mellitus with diabetic chronic kidney disease; E78.00 Pure hypercholesterolemia, unspecified; K59.09 Other constipation; F41.9 Anxiety disorder, unspecified; D72.829 Elevated white blood cell count, unspecified; E87.6 Hypokalemia; G20 Parkinson's disease; G47.30 Sleep apnea, unspecified; D63.8 Anemia in other chronic diseases classified elsewhere; Z99.2 Dependence on renal dialysis; Z86.73 Personal history of transient ischemic attack (TIA), and cerebral infarction without residual deficits; Z89.422 Acquired absence of other left toe(s); Y83.8 Other surgical procedures as the cause of abnormal reaction of the patient, or of later complication, without mention of misadventure at the time of the procedure
CPT/HCPCS: 36415; 71045-TC-FY; 80048; 80053; 81003; 82550; 82607; 82746; 82962; 83605; 83735; 84100; 84484; 85025; 85027; 85610; 85730; 86704; 86706; 86707; 86708; 86709; 86803; 87040; 87086; 87186; 87324; 87340; 87449; 93005; 93010; 93306-TC; 94760; 99285-25; C9803; G0480; J0131; J0878; J1644; Q5106; U0003; U0005

== ENCOUNTER 2020-12-07 11:59 | Inpatient (IN) | payer OTHER ==
[2020-12-07] MEDS ORDERED: VANCOMYCIN 1 GM in D5W (PRE-DOCKED) 1,000 MG/250 ML IVPB ONE (13:04)
[2020-12-07] MEDS ORDERED: ACETAMINOPHEN 1000 MG/100 ML VIAL (NON FORMULARY) IVPB ONE (13:33)
[2020-12-07 13:54] VITALS: BMI 35.1
[2020-12-07] MEDS ORDERED: VANCOMYCIN 1 GRAM (PRE-DOCKED) 1,000 MG/250 ML BAG IVPB ONE (14:01)
[2020-12-07] MEDS ORDERED: ACETAMINOPHEN INJECTION 100 ML IVPB ONE (14:01)
[2020-12-07 14:35] LABS: BASO % 0.6 % (0-2.0); HEMOGLOBIN 14.2 GM/dL (10.7-15.3); MCH 33.7 pg (25.7-33.7); MEAN PLT VOLUME 9.6 fl (7.5-11.1); MONO % 9.7 % (3.8-10.2); NEUT % 49.7 % (42.8-82.8); PLATELET COUNT 132 10^3/uL (134-434); RBC 4.22 M/mm3 (3.60-5.2); RDW 14.6 % (11.6-15.6); WHITE BLOOD COUNT 3.8 K/mm3 (4.0-10.0)
[2020-12-07 14:42] LABS: INR 0.97 (0.83-1.09); PROTHROMBIN TIME (PATIENT) 11.7 SEC (9.7-13.0)
[2020-12-07 14:44] LABS: ACTIVATED PTT 28.2 SECONDS (25.2-36.5)
[2020-12-07 14:53] LABS: CHLORIDE 97 mmol/L (98-107); SODIUM 136 mmol/L (136-145)
[2020-12-07 14:54] LABS: CALCIUM 10.1 mg/dL (8.5-10.1); GLUCOSE,RANDOM 100 mg/dL (74-106)
[2020-12-07 14:56] LABS: ALBUMIN 3.6 g/dl (3.4-5.0); ANION GAP 7 MMOL/L (8-16); BLOOD UREA NITROGEN 46.2 mg/dL (7-18); CO2 31 mmol/L (21-32)
[2020-12-07 14:58] LABS: SGPT/ALT 7 U/L (13-61)
[2020-12-07 14:59] LABS: CREATININE 6.9 mg/dL (0.55-1.3); SGOT/AST 8 U/L (15-37)
[2020-12-07 15:00] LABS: BILIRUBIN,TOTAL 0.4 mg/dL (0.2-1); TOT PROT 7.2 g/dl (6.4-8.2)
[2020-12-07 15:01] LABS: ALK PHOS 101 U/L (45-117)
[2020-12-08] MEDS ORDERED: DOCUSATE SODIUM 100 MG CAPSULE (FP) PO ONE (03:54)
[2020-12-08] MEDS: HEPARIN NA (PORCINE) 5,000 UNITS/ML 1ML VIAL SQ SCH ×3 (06:21→21:10)
[2020-12-08] MEDS: INSULIN SLIDING SCALE (NOVOLOG) 1 VIAL SQ SCH ×3 (07:00→18:03)
[2020-12-08] MEDS ORDERED: TOPIRAMATE 100 MG PO SCH (07:45)
[2020-12-08] MEDS ORDERED: CLOPIDOGREL BISULFATE 75 MG TABLET (FP) ONE (10:27)
[2020-12-08] MEDS ORDERED: PT OWN MED DRAWER 7, Y5N ONE ×3 (10:27→21:13)
[2020-12-08] MEDS ORDERED: buPROPion HCL 100 MG TABLET ONE (10:29)
[2020-12-08] MEDS: TOPIRAMATE 25 MG TABLET PO SCH ×2 (10:39→21:11)
[2020-12-08] MEDS: levETIRAcetam XR 750 MG TAB PO SCH ×2 (10:39→22:50)
[2020-12-08] MEDS: CLOPIDOGREL BISULFATE 75 MG TABLET (FP) PO SCH (10:53)
[2020-12-08] MEDS ORDERED: SODIUM CHLORIDE 250 ML IV PRN (13:09)
[2020-12-08] MEDS ORDERED: ACETAMINOPHEN 325 MG TABLET (FP) PO PRN (13:41)
[2020-12-08] MEDS ORDERED: VANCOMYCIN 1 GM in D5W (PRE-DOCKED) 1,000 MG/250 ML IVPB SCH (14:00)
[2020-12-08] MEDS: hydrALAZINE HCL 25 MG TABLET (FP) PO SCH ×2 (17:51→21:10)
[2020-12-08] MEDS ORDERED: CEFTRIAXONE 1 GM in DEXTROSE 5%-WATER - 50 ML IVPB SCH (18:00)
[2020-12-08] MEDS: CARVEDILOL 6.25 MG TABLET (FP) PO SCH (21:10)
[2020-12-08] MEDS: clonazePAM 0.5 MG TABLET PO SCH (21:11)
[2020-12-08] MEDS: ATORVASTATIN CA 80 MG TABLET (FP) PO SCH (21:11)
[2020-12-08] MEDS ORDERED: FAMOTIDINE 20 MG TABLET PO ONE (21:34)
[2020-12-09] MEDS: HEPARIN NA (PORCINE) 5,000 UNITS/ML 1ML VIAL SQ SCH ×3 (05:58→21:36)
[2020-12-09] MEDS: hydrALAZINE HCL 25 MG TABLET (FP) PO SCH ×3 (05:58→23:55)
[2020-12-09] MEDS: TOPIRAMATE 25 MG TABLET PO SCH ×2 (09:48→21:37)
[2020-12-09] MEDS: CLOPIDOGREL BISULFATE 75 MG TABLET (FP) PO SCH (09:48)
[2020-12-09] MEDS: clonazePAM 0.5 MG TABLET PO SCH ×2 (09:48→21:37)
[2020-12-09] MEDS: CARVEDILOL 6.25 MG TABLET (FP) PO SCH ×2 (09:48→23:56)
[2020-12-09] MEDS: VITAMIN B COMP W-C 1 EA TABLET (NEPHRO-VITE) PO SCH (09:48)
[2020-12-09] MEDS: amLODIPine BESYLATE 10 MG TABLET (FP) PO SCH (09:49)
[2020-12-09] MEDS ORDERED: PT OWN MED DRAWER 7, Y5N ONE (09:53)
[2020-12-09] MEDS: levETIRAcetam XR 750 MG TAB PO SCH ×2 (09:56→21:37)
[2020-12-09] MEDS: POLYETHYLENE GLYCOL (HEALTHYLAX) 3350 17 GM PACKET PO SCH (18:52)
[2020-12-09] MEDS: SENNOSIDES/DOCUSATE COMBO (SENNA PLUS) TABLET (UD) PO SCH (21:37)
[2020-12-09] MEDS: ATORVASTATIN CA 80 MG TABLET (FP) PO SCH (21:37)
[2020-12-10] MEDS: HEPARIN NA (PORCINE) 5,000 UNITS/ML 1ML VIAL SQ SCH ×3 (05:43→22:00)
[2020-12-10] MEDS: hydrALAZINE HCL 25 MG TABLET (FP) PO SCH ×3 (05:43→22:00)
[2020-12-10] MEDS ORDERED: SODIUM CHLORIDE 250 ML IV PRN (07:27)
[2020-12-10] MEDS ORDERED: EPOETIN ALFA-EPBX 4,000 UNIT/ML VIAL IVPUSH ONE (07:30)
[2020-12-10] MEDS ORDERED: VANCOMYCIN 1 GM in D5W (PRE-DOCKED) 1,000 MG/250 ML IVPB ONE (09:30)
[2020-12-10] MEDS: CARVEDILOL 6.25 MG TABLET (FP) PO SCH ×2 (10:00→22:00)
[2020-12-10 10:57] LABS: BASO % 0.6 % (0-2.0); HEMATOCRIT 38.6 % (32.4-45.2); HEMOGLOBIN 12.8 GM/dL (10.7-15.3); LYMPH % 18.8 % (8-40); MCH 33.8 pg (25.7-33.7); MCHC 33.2 g/dl (32.0-36.0); MEAN CELL VOLUME 101.8 fl (80-96); MEAN PLT VOLUME 9.6 fl (7.5-11.1); MONO % 7.1 % (3.8-10.2); NEUT % 69.5 % (42.8-82.8); PLATELET COUNT 115 10^3/uL (134-434); RBC 3.79 M/mm3 (3.60-5.2); WHITE BLOOD COUNT 6.7 K/mm3 (4.0-10.0)
[2020-12-10 11:29] LABS: CALCIUM 8.7 mg/dL (8.5-10.1)
[2020-12-10 11:30] LABS: BLOOD UREA NITROGEN 43.1 mg/dL (7-18)
[2020-12-10 11:33] LABS: CREATININE 6.4 mg/dL (0.55-1.3)
[2020-12-10 11:34] LABS: BILIRUBIN,TOTAL 0.3 mg/dL (0.2-1); TOT PROT 5.7 g/dl (6.4-8.2)
[2020-12-10 11:35] LABS: ALBUMIN 2.8 g/dl (3.4-5.0)
[2020-12-10] MEDS ORDERED: VANCOMYCIN 1,000 MG in DEXTROSE 5%-WATER - 250 ML IVPB ONE (12:30)
[2020-12-10] MEDS ORDERED: PT OWN MED DRAWER 7, Y5N ONE ×2 (14:03→20:34)
[2020-12-10] MEDS: SENNOSIDES/DOCUSATE COMBO (SENNA PLUS) TABLET (UD) PO SCH ×2 (14:31→22:03)
[2020-12-10] MEDS: POLYETHYLENE GLYCOL (HEALTHYLAX) 3350 17 GM PACKET PO SCH (14:31)
[2020-12-10] MEDS: VITAMIN B COMP W-C 1 EA TABLET (NEPHRO-VITE) PO SCH (14:33)
[2020-12-10] MEDS: clonazePAM 0.5 MG TABLET PO SCH ×2 (14:33→22:00)
[2020-12-10] MEDS: amLODIPine BESYLATE 10 MG TABLET (FP) PO SCH (14:34)
[2020-12-10] MEDS: CLOPIDOGREL BISULFATE 75 MG TABLET (FP) PO SCH (14:34)
[2020-12-10] MEDS: levETIRAcetam XR 750 MG TAB PO SCH ×2 (14:34→21:58)
[2020-12-10] MEDS: TOPIRAMATE 25 MG TABLET PO SCH ×2 (14:36→21:59)
[2020-12-10] MEDS: ATORVASTATIN CA 80 MG TABLET (FP) PO SCH (22:00)
[2020-12-11] MEDS: hydrALAZINE HCL 25 MG TABLET (FP) PO SCH (06:09)
[2020-12-11] MEDS: HEPARIN NA (PORCINE) 5,000 UNITS/ML 1ML VIAL SQ SCH (06:09)
[2020-12-11 10:46] LABS: BASO % 0.3 % (0-2.0); EOS % 3.2 % (0-4.5); HEMATOCRIT 40.8 % (32.4-45.2); HEMOGLOBIN 13.5 GM/dL (10.7-15.3); MCH 33.7 pg (25.7-33.7); MEAN CELL VOLUME 102.1 fl (80-96); MEAN PLT VOLUME 10.2 fl (7.5-11.1); MONO % 6.8 % (3.8-10.2); NEUT % 75.7 % (42.8-82.8); PLATELET COUNT 110 10^3/uL (134-434); RDW 14.5 % (11.6-15.6); WHITE BLOOD COUNT 9.5 K/mm3 (4.0-10.0)
[2020-12-11 11:16] LABS: BILIRUBIN,TOTAL 0.4 mg/dL (0.2-1)
[2020-12-11 11:19] LABS: CALCIUM 9.4 mg/dL (8.5-10.1)
[2020-12-11 11:20] LABS: ALBUMIN 3.1 g/dl (3.4-5.0); BLOOD UREA NITROGEN 40.2 mg/dL (7-18)
[2020-12-11 11:23] LABS: CREATININE 5.7 mg/dL (0.55-1.3)
[2020-12-11 11:24] LABS: TOT PROT 6.4 g/dl (6.4-8.2)
[2020-12-11] MEDS ORDERED: PT OWN MED DRAWER 7, Y5N ONE (11:27)
[2020-12-11] MEDS: amLODIPine BESYLATE 10 MG TABLET (FP) PO SCH (12:04)
[2020-12-11] MEDS: clonazePAM 0.5 MG TABLET PO SCH (12:04)
[2020-12-11] MEDS: CLOPIDOGREL BISULFATE 75 MG TABLET (FP) PO SCH (12:04)
[2020-12-11] MEDS: POLYETHYLENE GLYCOL (HEALTHYLAX) 3350 17 GM PACKET PO SCH (12:04)
[2020-12-11] MEDS: CARVEDILOL 6.25 MG TABLET (FP) PO SCH (12:04)
[2020-12-11] MEDS: TOPIRAMATE 25 MG TABLET PO SCH (12:04)
[2020-12-11] MEDS: levETIRAcetam XR 750 MG TAB PO SCH (12:04)
[2020-12-11] MEDS: VITAMIN B COMP W-C 1 EA TABLET (NEPHRO-VITE) PO SCH (12:04)
[2020-12-11] MEDS: SENNOSIDES/DOCUSATE COMBO (SENNA PLUS) TABLET (UD) PO SCH (12:05)
[2020-12-11 13:34] VITALS: BP 106/56; PULSE 85; TEMP 98.9
== END 2020-12-11 14:27 | disposition home health service (06) | DRG 602 ==
LOC: JER 11:59 → JERBED 23:53 → J5S 12-08 17:17
PROVIDERS: ADMIT Internal Medicine; ATTEND Internal Medicine
PROC: 5A1D70Z Performance of Urinary Filtration, Intermittent, Less than 6 Hours Per Day (ICD-10-PCS; principal; 2020-12-08)
DX: L03.313 Cellulitis of chest wall (principal); N18.6 End stage renal disease; I69.351 Hemiplegia and hemiparesis following cerebral infarction affecting right dominant side; J98.11 Atelectasis; N39.0 Urinary tract infection, site not specified; I12.0 Hypertensive chronic kidney disease with stage 5 chronic kidney disease or end stage renal disease; G40.909 Epilepsy, unspecified, not intractable, without status epilepticus; F41.9 Anxiety disorder, unspecified; K21.9 Gastro-esophageal reflux disease without esophagitis; E11.22 Type 2 diabetes mellitus with diabetic chronic kidney disease; Z99.2 Dependence on renal dialysis; G20 Parkinson's disease; F32.9 Major depressive disorder, single episode, unspecified; F29 Unspecified psychosis not due to a substance or known physiological condition; Z79.4 Long term (current) use of insulin; E66.9 Obesity, unspecified; Z68.35 Body mass index [BMI] 35.0-35.9, adult; K56.41 Fecal impaction
CPT/HCPCS: 36415; 71045-TC-FY; 71260-TC; 74177-TC; 76705-TC; 80053; 82962; 83605; 84484; 85025; 85610; 85730; 86803; 86850; 86900; 86901; 87040; 87086; 87186; 87340; 87804; 93005; 93010; 99285-25; C9803; G0480; J0131; J1644; Q5106; Q9967; U0003; U0005

== ENCOUNTER 2021-01-06 11:16 | Observation (INO) | payer OTHER ==
[2021-01-06 13:40] LABS: BASO % 0.4 % (0-2.0); EOS % 6.5 % (0-4.5); HEMATOCRIT 35.8 % (32.4-45.2); HEMOGLOBIN 11.9 GM/dL (10.7-15.3); LYMPH % 20.2 % (8-40); MCH 33.4 pg (25.7-33.7); MCHC 33.4 g/dl (32.0-36.0); MEAN PLT VOLUME 10.3 fl (7.5-11.1); MONO % 10.3 % (3.8-10.2); NEUT % 62.6 % (42.8-82.8); PLATELET COUNT 107 10^3/uL (134-434); RBC 3.58 M/mm3 (3.60-5.2); RDW 14.7 % (11.6-15.6); WHITE BLOOD COUNT 4.3 K/mm3 (4.0-10.0)
[2021-01-06 14:06] LABS: BLOOD UREA NITROGEN 44.9 mg/dL (7-18)
[2021-01-06 14:09] LABS: CREATININE 5.6 mg/dL (0.55-1.3)
[2021-01-06 14:11] LABS: BILIRUBIN,TOTAL 0.4 mg/dL (0.2-1); TOT PROT 6.5 g/dl (6.4-8.2)
[2021-01-06] MEDS ORDERED: SODIUM CHLORIDE 250 ML IV PRN (16:24)
[2021-01-06] MEDS ORDERED: QUEtiapine FUMARATE 100 MG TABLET (FP) PO PRN (18:12)
[2021-01-06] MEDS ORDERED: TOPIRAMATE 100 MG TABLET PO SCH (22:00)
[2021-01-06] MEDS ORDERED: hydrALAZINE HCL 25 MG TABLET (FP) ONE (22:23)
[2021-01-06] MEDS ORDERED: ATORVASTATIN CA 80 MG TABLET (FP) ONE (22:24)
[2021-01-06] MEDS ORDERED: levETIRAcetam 500 MG TABLET (FP) PO ONE (22:24)
[2021-01-06] MEDS ORDERED: CARBIDOPA/LEVODOPA 25/100 TABLET (FP) ONE (22:24)
[2021-01-06] MEDS: CARBIDOPA/LEVODOPA 25/100 TABLET (FP) PO SCH (22:33)
[2021-01-06] MEDS: ATORVASTATIN CA 80 MG TABLET (FP) PO SCH (22:33)
[2021-01-06] MEDS: levETIRAcetam XR 750 MG TAB PO SCH (22:33)
[2021-01-06] MEDS: hydrALAZINE HCL 25 MG TABLET (FP) PO SCH (22:33)
[2021-01-07] MEDS: SEVELAMER CARBONATE 800 MG TAB (FP) PO SCH ×3 (07:52→18:46)
[2021-01-07 09:05] LABS: BASO % 0.5 % (0-2.0); EOS % 6.6 % (0-4.5); HEMATOCRIT 36.7 % (32.4-45.2); HEMOGLOBIN 11.9 GM/dL (10.7-15.3); LYMPH % 20.5 % (8-40); MCH 32.9 pg (25.7-33.7); MCHC 32.5 g/dl (32.0-36.0); MEAN CELL VOLUME 101.2 fl (80-96); MEAN PLT VOLUME 10.1 fl (7.5-11.1); MONO % 13.4 % (3.8-10.2); PLATELET COUNT 104 10^3/uL (134-434); RBC 3.63 M/mm3 (3.60-5.2); RDW 14.6 % (11.6-15.6); WHITE BLOOD COUNT 4.8 K/mm3 (4.0-10.0)
[2021-01-07 09:31] LABS: CALCIUM 9.3 mg/dL (8.5-10.1)
[2021-01-07 09:32] LABS: ALBUMIN 2.7 g/dl (3.4-5.0); BLOOD UREA NITROGEN 55.7 mg/dL (7-18)
[2021-01-07 09:35] LABS: CREATININE 6.5 mg/dL (0.55-1.3); PHOSPHOROUS 2.9 mg/dL (2.5-4.9)
[2021-01-07 09:36] LABS: BILIRUBIN,TOTAL 0.3 mg/dL (0.2-1)
[2021-01-07] MEDS: CARBIDOPA/LEVODOPA 25/100 TABLET (FP) PO SCH ×4 (10:00→21:59)
[2021-01-07] MEDS: levETIRAcetam XR 750 MG TAB PO SCH ×2 (10:28→21:40)
[2021-01-07] MEDS: hydrALAZINE HCL 25 MG TABLET (FP) PO SCH (11:00)
[2021-01-07] MEDS ORDERED: MAG HYDROX/AL HYDROX/SIMETH 30 ML UNIT-DOSE CUP PO ONE (14:36)
[2021-01-07 15:57] VITALS: BMI 34.2
[2021-01-07] MEDS: CLOPIDOGREL BISULFATE 75 MG TABLET (FP) PO SCH (16:33)
[2021-01-07] MEDS: amLODIPine BESYLATE 10 MG TABLET (FP) PO SCH (16:33)
[2021-01-07] MEDS: CARVEDILOL 6.25 MG TABLET (FP) PO SCH ×2 (16:34→21:40)
[2021-01-07] MEDS ORDERED: PT OWN MED DRAWER 7, Y5N ONE (18:43)
[2021-01-07] MEDS: ATORVASTATIN CA 80 MG TABLET (FP) PO SCH (21:40)
[2021-01-08] MEDS ORDERED: QUEtiapine FUMARATE 100 MG TABLET (FP) PO PRN (08:01)
[2021-01-08 08:18] LABS: ALBUMIN 2.7 g/dl (3.4-5.0); CALCIUM 8.6 mg/dL (8.5-10.1)
[2021-01-08 08:19] LABS: BASO % 0.4 % (0-2.0); BLOOD UREA NITROGEN 31.1 mg/dL (7-18); EOS % 4.9 % (0-4.5); HEMATOCRIT 37.1 % (32.4-45.2); HEMOGLOBIN 12.1 GM/dL (10.7-15.3); MAGNESIUM 2.1 mg/dL (1.8-2.4); MCH 33.2 pg (25.7-33.7); MCHC 32.7 g/dl (32.0-36.0); MEAN CELL VOLUME 101.6 fl (80-96); MEAN PLT VOLUME 9.9 fl (7.5-11.1); MONO % 14.7 % (3.8-10.2); PLATELET COUNT 106 10^3/uL (134-434); RBC 3.65 M/mm3 (3.60-5.2); RDW 14.6 % (11.6-15.6); WHITE BLOOD COUNT 5.3 K/mm3 (4.0-10.0)
[2021-01-08 08:21] LABS: CREATININE 4.3 mg/dL (0.55-1.3)
[2021-01-08 08:22] LABS: PHOSPHOROUS 1.6 mg/dL (2.5-4.9)
[2021-01-08 08:25] LABS: BILIRUBIN,TOTAL 0.3 mg/dL (0.2-1); TOT PROT 6.1 g/dl (6.4-8.2)
[2021-01-08] MEDS ORDERED: PT OWN MED DRAWER 7, Y5N ONE ×3 (08:42→18:23)
[2021-01-08] MEDS ORDERED: TOPIRAMATE 100 MG TABLET PO SCH (09:00)
[2021-01-08] MEDS: amLODIPine BESYLATE 10 MG TABLET (FP) PO SCH (09:20)
[2021-01-08] MEDS: CARVEDILOL 6.25 MG TABLET (FP) PO SCH ×2 (09:20→21:30)
[2021-01-08] MEDS: SEVELAMER CARBONATE 800 MG TAB (FP) PO SCH ×3 (09:20→18:25)
[2021-01-08] MEDS: CARBIDOPA/LEVODOPA 25/100 TABLET (FP) PO SCH ×4 (09:20→21:28)
[2021-01-08] MEDS: levETIRAcetam XR 750 MG TAB PO SCH ×2 (09:20→21:28)
[2021-01-08] MEDS: CLOPIDOGREL BISULFATE 75 MG TABLET (FP) PO SCH (09:20)
[2021-01-08] MEDS: TOPIRAMATE 100 MG TABLET PO SCH ×2 (09:49→21:28)
[2021-01-08] MEDS ORDERED: POTASSIUM CHLORIDE ORAL LIQUID 20 MEQ/15 ML PO ONE (10:15)
[2021-01-08 21:27] VITALS: BP 128/76; PULSE 80; TEMP 98.8
[2021-01-08] MEDS: ATORVASTATIN CA 80 MG TABLET (FP) PO SCH (21:30)
[2021-01-08] MEDS ORDERED: QUEtiapine FUMARATE 100 MG TABLET (FP) PO SCH (22:00)
== END 2021-01-08 23:00 | disposition home or self-care (01) ==
LOC: JER 11:16 → INTOOBSV 13:58 → JERBED 13:58 → UNDOADMOB 13:58 → JERBED 15:18 → J4W 01-07 00:37 → JERBED 01-07 00:37 → J4W 01-07 00:37
PROVIDERS: ADMIT Internal Medicine
DX: G45.9 Transient cerebral ischemic attack, unspecified (principal); E78.5 Hyperlipidemia, unspecified; E11.22 Type 2 diabetes mellitus with diabetic chronic kidney disease; I73.9 Peripheral vascular disease, unspecified; I13.11 Hypertensive heart and chronic kidney disease without heart failure, with stage 5 chronic kidney disease, or end stage renal disease; N18.6 End stage renal disease; Z99.2 Dependence on renal dialysis; K21.9 Gastro-esophageal reflux disease without esophagitis; A41.89 Other specified sepsis; R42 Dizziness and giddiness; R56.9 Unspecified convulsions; R01.1 Cardiac murmur, unspecified; I49.3 Ventricular premature depolarization; I63.9 Cerebral infarction, unspecified; Z88.8 Allergy status to other drugs, medicaments and biological substances; Z88.6 Allergy status to analgesic agent
CPT/HCPCS: 36415; 80053; 82550; 83605; 83690; 83735; 84100; 84484; 85025; 86803; 87040; 87340; 93005; 93010; 97162-GP; 99285-25; C9803; G0378; U0003; U0005

== ENCOUNTER 2021-01-14 05:01 | Day surgery (SDC) | payer OTHER ==
[2021-01-13 19:45] VITALS: BMI 38.9
[2021-01-14] MEDS ORDERED: HEPARIN NA (PORCINE) 5,000 UNITS/ML 1ML VIAL ONE (10:01)
[2021-01-14] MEDS ORDERED: LIDOCAINE HCL 1%, 10 MG/ML (20ML VIAL) ONE (10:02)
[2021-01-14] MEDS ORDERED: POVIDONE-IODINE OINTMENT 10% - 28.4 GM TUBE ONE (10:02)
[2021-01-14] MEDS ORDERED: MIDAZOLAM HCL 2 MG/2 ML SINGLE DOSE VIAL ONE (12:03)
[2021-01-14] MEDS ORDERED: ceFAZolin SODIUM 1 GM VIAL ONE (12:34)
[2021-01-14] MEDS ORDERED: ceFAZolin SODIUM 1 GM VIAL IVPB ONE (12:40)
[2021-01-14] MEDS ORDERED: LIDOCAINE HCL 1%, 10 MG/ML (20ML VIAL) PNB ONE (13:07)
[2021-01-14] MEDS ORDERED: ONDANSETRON 4 MG/2 ML VIAL IVPUSH PRN (14:57)
[2021-01-14] MEDS ORDERED: ACETAMINOPHEN 325 MG TABLET (FP) PO PRN (14:57)
[2021-01-14] MEDS ORDERED: SODIUM CHLORIDE 1,000 ML IV SCH (15:00)
[2021-01-14 16:44] VITALS: TEMP 97.8
[2021-01-14 17:03] VITALS: BP 110/76; PULSE 80
== END 2021-01-14 17:00 | disposition home or self-care (01) ==
LOC: JASU-SURG 05:01
PROVIDERS: ATTEND Surgery Vascular Surgery
PROC: 03160JD Bypass Left Axillary Artery to Upper Arm Vein with Synthetic Substitute, Open Approach (ICD-10-PCS; principal; 2021-01-14 16:00)
DX: I12.0 Hypertensive chronic kidney disease with stage 5 chronic kidney disease or end stage renal disease (principal); E11.22 Type 2 diabetes mellitus with diabetic chronic kidney disease; N18.6 End stage renal disease; Z99.2 Dependence on renal dialysis
CPT/HCPCS: 36415; 82962; 84132; 94760; J1644

== ENCOUNTER 2021-02-12 10:53 | Inpatient (IN) | payer OTHER ==
[2021-02-12 11:04] VITALS: BMI 28.3
[2021-02-12] MEDS ORDERED: DEXTROSE 50%-WATER 25 GM/50 ML DISP.SYRIN ONE (11:25)
[2021-02-12] MEDS ORDERED: DEXTROSE 50%-WATER - 25 GM/50 ML VIAL IVPUSH ONE (12:17)
[2021-02-12 12:32] LABS: VENOUS BASE EXCESS 0.4 mmol/L (-2-2); VENOUS O2 SATURATION 27.4 % (70-80); VENOUS PCO2 53.8 mmHg (38-52); VENOUS PH 7.319 (7.310-7.410)
[2021-02-12 13:00] LABS: CHLORIDE 102 mmol/L (98-107); SODIUM 139 mmol/L (136-145)
[2021-02-12 13:02] LABS: CALCIUM 8.8 mg/dL (8.5-10.1)
[2021-02-12 13:03] LABS: ALBUMIN 2.3 g/dl (3.4-5.0); ANION GAP 5 MMOL/L (8-16); BLOOD UREA NITROGEN 32.6 mg/dL (7-18); CO2 31 mmol/L (21-32); GLUCOSE,RANDOM 71 mg/dL (74-106)
[2021-02-12 13:04] LABS: HEMATOCRIT 25.9 % (32.4-45.2); HEMOGLOBIN 8.2 GM/dL (10.7-15.3); MCH 31.5 pg (25.7-33.7); MCHC 31.8 g/dl (32.0-36.0); MEAN CELL VOLUME 99.2 fl (80-96); MEAN PLT VOLUME 10.4 fl (7.5-11.1); PLATELET COUNT 152 10^3/uL (134-434); RBC 2.61 M/mm3 (3.60-5.2); WHITE BLOOD COUNT 14.2 K/mm3 (4.0-10.0)
[2021-02-12 13:06] LABS: SGOT/AST 18 U/L (15-37)
[2021-02-12 13:08] LABS: BILIRUBIN,TOTAL 0.5 mg/dL (0.2-1); TOT PROT 5.6 g/dl (6.4-8.2)
[2021-02-12 13:09] LABS: ALK PHOS 74 U/L (45-117)
[2021-02-12 13:12] LABS: SGPT/ALT < 6 U/L (13-61)
[2021-02-12] MEDS ORDERED: MEROPENEM 500 MG in DEXTROSE 5%-WATER 100 ML IVPB ONE (13:20)
[2021-02-12 13:24] LABS: INR 1.05 (0.83-1.09); PROTHROMBIN TIME (PATIENT) 11.8 SEC (9.7-13.0)
[2021-02-12] MEDS ORDERED: VANCOMYCIN 1 GM in D5W (PRE-DOCKED) 1,000 MG/250 ML IVPB ONE (13:26)
[2021-02-12 13:27] LABS: ACTIVATED PTT 20.9 SECONDS (25.2-36.5)
[2021-02-12] MEDS ORDERED: VANCOMYCIN 1 GRAM (PRE-DOCKED) 1,000 MG/250 ML BAG IVPB ONE (13:36)
[2021-02-12 14:10] LABS: EPI CELLS 26 /uL (0-25.1); HYALINE CASTS 5 /uL (0-3.1); URINE APPEARANCE TURBID; URINE BILIRUBIN 1+ (NEGATIVE); URINE COLOR DK YELLOW; URINE GLUCOSE (UA) NEGATIVE (NEGATIVE); URINE KETONE TRACE (NEGATIVE); URINE LEUK ESTERASE 3+ (NEGATIVE); URINE NITRITE NEGATIVE (NEGATIVE); URINE PROTEIN 2+ (NEGATIVE); URINE WBC 6458 /uL (0-25.8)
[2021-02-12 14:15] LABS: ANISOCYTOSIS 1+; MACROCYTOSIS 1+; OVALOCYTE 1+; PLATELET ESTIMATE DECREASED
[2021-02-12 15:00] LABS: URINE BACTERIA 89.1 /uL (0-1359); URINE RBC 276.4 /uL (0-23.9)
[2021-02-12 15:01] LABS: URINE CRYSTALS NONE SEEN /hpf
[2021-02-12] MEDS ORDERED: clonazePAM 0.5 MG TABLET PO PRN (16:47)
[2021-02-12] MEDS ORDERED: QUEtiapine FUMARATE 100 MG TABLET (FP) PO PRN (16:47)
[2021-02-12] MEDS: CARBIDOPA/LEVODOPA 25/100 TABLET (FP) PO SCH ×2 (19:23→21:27)
[2021-02-12] MEDS ORDERED: ACETAMINOPHEN 1000 MG/100 ML VIAL IVPB ONE (19:47)
[2021-02-12] MEDS ORDERED: PT OWN MED DRAWER 7, Y5N ONE (21:15)
[2021-02-12] MEDS: TOPIRAMATE 100 MG TABLET PO SCH (21:26)
[2021-02-12] MEDS: HEPARIN NA (PORCINE) 5,000 UNITS/ML 1ML VIAL SQ SCH (21:27)
[2021-02-12] MEDS: levETIRAcetam XR 500 MG TAB PO SCH (21:27)
[2021-02-12] MEDS: ATORVASTATIN CA 80 MG TABLET (FP) PO SCH (21:27)
[2021-02-12] MEDS: CARVEDILOL 6.25 MG TABLET (FP) PO SCH (21:36)
[2021-02-13] MEDS ORDERED: ACETAMINOPHEN 1000 MG/100 ML VIAL IVPB ONE (03:39)
[2021-02-13] MEDS: HEPARIN NA (PORCINE) 5,000 UNITS/ML 1ML VIAL SQ SCH ×3 (06:18→21:49)
[2021-02-13] MEDS: TOPIRAMATE 100 MG TABLET PO SCH ×2 (06:18→21:48)
[2021-02-13] MEDS ORDERED: EPOETIN ALFA-EPBX 10,000 UNIT/ML VIAL SQ ONE (08:38)
[2021-02-13] MEDS ORDERED: SODIUM CHLORIDE 250 ML IV PRN (08:38)
[2021-02-13 09:40] LABS: BASO % 0.3 % (0-2.0); EOS % 0.9 % (0-4.5); HEMATOCRIT 23.9 % (32.4-45.2); HEMOGLOBIN 7.7 GM/dL (10.7-15.3); LYMPH % 7.2 % (8-40); MCH 32.1 pg (25.7-33.7); MCHC 32.2 g/dl (32.0-36.0); MEAN CELL VOLUME 99.6 fl (80-96); MEAN PLT VOLUME 9.9 fl (7.5-11.1); MONO % 7.5 % (3.8-10.2); NEUT % 84.1 % (42.8-82.8); PLATELET COUNT 127 10^3/uL (134-434); RDW 14.5 % (11.6-15.6); WHITE BLOOD COUNT 14.8 K/mm3 (4.0-10.0)
[2021-02-13 10:08] LABS: CHLORIDE 103 mmol/L (98-107); SODIUM 137 mmol/L (136-145)
[2021-02-13 10:10] LABS: ALBUMIN 2.1 g/dl (3.4-5.0); CALCIUM 8.6 mg/dL (8.5-10.1)
[2021-02-13 10:11] LABS: ANION GAP 7 MMOL/L (8-16); BLOOD UREA NITROGEN 42.1 mg/dL (7-18); CO2 27 mmol/L (21-32); GLUCOSE,RANDOM 76 mg/dL (74-106); MAGNESIUM 1.8 mg/dL (1.8-2.4)
[2021-02-13 10:14] LABS: CREATININE 4.5 mg/dL (0.55-1.3); SGOT/AST 16 U/L (15-37); SGPT/ALT < 6 U/L (13-61)
[2021-02-13 10:15] LABS: BILIRUBIN,TOTAL 0.4 mg/dL (0.2-1)
[2021-02-13 10:16] LABS: ALK PHOS 78 U/L (45-117)
[2021-02-13] MEDS: CARVEDILOL 6.25 MG TABLET (FP) PO SCH (10:30)
[2021-02-13] MEDS: levETIRAcetam XR 500 MG TAB PO SCH ×3 (10:30→21:49)
[2021-02-13] MEDS: CLOPIDOGREL BISULFATE 75 MG TABLET (FP) PO SCH ×2 (10:31→14:17)
[2021-02-13] MEDS: CARBIDOPA/LEVODOPA 25/100 TABLET (FP) PO SCH ×4 (10:31→21:51)
[2021-02-13] MEDS ORDERED: PT OWN MED DRAWER 7, Y5N ONE ×3 (10:34→20:27)
[2021-02-13] MEDS ORDERED: CEFEPIME 1 GM in DEXTROSE 5%-WATER 1 GM/50 ML BAG IVPB SCH (14:15)
[2021-02-13] MEDS ORDERED: CEFEPIME HCL 1 GM VIAL (RESTRICTED TO ID) ONE (15:08)
[2021-02-13] MEDS ORDERED: DEXTROSE 5%-WATER 100 ML IVPB ONE (15:08)
[2021-02-13] MEDS: CEFEPIME 1 GM in DEXTROSE 5%-WATER 1 GM/100 ML BAG IVPB SCH (16:21)
[2021-02-13] MEDS: ATORVASTATIN CA 80 MG TABLET (FP) PO SCH (21:48)
[2021-02-14] MEDS: HEPARIN NA (PORCINE) 5,000 UNITS/ML 1ML VIAL SQ SCH ×3 (06:04→21:02)
[2021-02-14] MEDS: TOPIRAMATE 100 MG TABLET PO SCH ×2 (06:04→21:01)
[2021-02-14] MEDS ORDERED: PT OWN MED DRAWER 7, Y5N ONE ×3 (10:22→20:22)
[2021-02-14] MEDS: levETIRAcetam XR 500 MG TAB PO SCH ×2 (10:32→21:01)
[2021-02-14] MEDS: CARBIDOPA/LEVODOPA 25/100 TABLET (FP) PO SCH ×4 (10:33→21:01)
[2021-02-14] MEDS: CLOPIDOGREL BISULFATE 75 MG TABLET (FP) PO SCH (10:33)
[2021-02-14] MEDS ORDERED: CEFEPIME HCL 1 GM VIAL (RESTRICTED TO ID) ONE (14:56)
[2021-02-14] MEDS ORDERED: DEXTROSE 5%-WATER 100 ML IVPB ONE (14:57)
[2021-02-14] MEDS: CEFEPIME 1 GM in DEXTROSE 5%-WATER 1 GM/100 ML BAG IVPB SCH (14:58)
[2021-02-14] MEDS ORDERED: VANCOMYCIN 1 GRAM (PRE-DOCKED) 1,000 MG/250 ML BAG IVPB ONE (19:00)
[2021-02-14 20:25] LABS: CHLORIDE 103 mmol/L (98-107); SODIUM 139 mmol/L (136-145)
[2021-02-14 20:27] LABS: CALCIUM 8.7 mg/dL (8.5-10.1)
[2021-02-14 20:28] LABS: ALBUMIN 2.2 g/dl (3.4-5.0); ANION GAP 6 MMOL/L (8-16); BLOOD UREA NITROGEN 23.3 mg/dL (7-18); CO2 30 mmol/L (21-32); GLUCOSE,RANDOM 102 mg/dL (74-106)
[2021-02-14 20:29] LABS: IRON SERUM 30 ug/dL (50-175); SGPT/ALT < 6 U/L (13-61)
[2021-02-14 20:31] LABS: CREATININE 3.6 mg/dL (0.55-1.3); SGOT/AST 13 U/L (15-37); TOTAL IRON BINDING CAPACITY 87 ug/dL (250-450)
[2021-02-14 20:32] LABS: BILIRUBIN,TOTAL 0.5 mg/dL (0.2-1); TOT PROT 5.3 g/dl (6.4-8.2)
[2021-02-14 20:33] LABS: ALK PHOS 80 U/L (45-117)
[2021-02-14] MEDS: ATORVASTATIN CA 80 MG TABLET (FP) PO SCH (21:02)
[2021-02-15] MEDS: TOPIRAMATE 100 MG TABLET PO SCH ×2 (06:31→21:54)
[2021-02-15] MEDS: HEPARIN NA (PORCINE) 5,000 UNITS/ML 1ML VIAL SQ SCH ×3 (06:31→21:52)
[2021-02-15] MEDS ORDERED: PT OWN MED DRAWER 7, Y5N ONE ×2 (09:42→14:46)
[2021-02-15] MEDS: VITAMIN B COMP W-C 1 EA TABLET (NEPHRO-VITE) PO SCH ×2 (09:43→14:53)
[2021-02-15] MEDS: levETIRAcetam XR 500 MG TAB PO SCH ×3 (09:43→21:53)
[2021-02-15] MEDS: CARBIDOPA/LEVODOPA 25/100 TABLET (FP) PO SCH ×4 (09:44→21:53)
[2021-02-15] MEDS: CLOPIDOGREL BISULFATE 75 MG TABLET (FP) PO SCH ×2 (09:44→14:54)
[2021-02-15] MEDS: AMINO ACIDS/PROTEIN HYDROLYS 30 ML LIQUID.PKT PO SCH (09:48)
[2021-02-15] MEDS ORDERED: SODIUM CHLORIDE 250 ML IV PRN (10:00)
[2021-02-15] MEDS ORDERED: EPOETIN ALFA-EPBX 10,000 UNIT/ML VIAL SQ ONE (10:00)
[2021-02-15] MEDS: COLLAGENASE CLOSTRIDIUM HIST. 30 GRAMS TUBE TP SCH ×2 (10:26→14:54)
[2021-02-15] MEDS: SODIUM HYPOCHLORITE 0.25%- 473 ML BULK BOTTLE TP SCH ×2 (10:26→14:53)
[2021-02-15 11:42] LABS: BASO % 0.3 % (0-2.0); EOS % 1.1 % (0-4.5); HEMATOCRIT 22.4 % (32.4-45.2); HEMOGLOBIN 7.2 GM/dL (10.7-15.3); LYMPH % 11.2 % (8-40); MCH 32.2 pg (25.7-33.7); MEAN CELL VOLUME 100.4 fl (80-96); MEAN PLT VOLUME 10.2 fl (7.5-11.1); MONO % 9.8 % (3.8-10.2); NEUT % 77.6 % (42.8-82.8); PLATELET COUNT 125 10^3/uL (134-434); RBC 2.24 M/mm3 (3.60-5.2); RDW 15.6 % (11.6-15.6); WHITE BLOOD COUNT 12.2 K/mm3 (4.0-10.0)
[2021-02-15 11:50] LABS: CHLORIDE 103 mmol/L (98-107); SODIUM 139 mmol/L (136-145)
[2021-02-15 11:52] LABS: CALCIUM 8.6 mg/dL (8.5-10.1)
[2021-02-15 11:53] LABS: ALBUMIN 1.8 g/dl (3.4-5.0); ANION GAP 7 MMOL/L (8-16); BLOOD UREA NITROGEN 25.7 mg/dL (7-18); CO2 29 mmol/L (21-32); GLUCOSE,RANDOM 95 mg/dL (74-106)
[2021-02-15 11:56] LABS: CREATININE 3.9 mg/dL (0.55-1.3); SGOT/AST 9 U/L (15-37); SGPT/ALT < 6 U/L (13-61)
[2021-02-15 11:57] LABS: BILIRUBIN,TOTAL 0.4 mg/dL (0.2-1)
[2021-02-15 11:58] LABS: TOT PROT 4.9 g/dl (6.4-8.2)
[2021-02-15 11:59] LABS: ALK PHOS 74 U/L (45-117)
[2021-02-15] MEDS ORDERED: CEFUROXIME AXETIL 250 MG TABLET PO SCH (14:00)
[2021-02-15] MEDS: ATORVASTATIN CA 80 MG TABLET (FP) PO SCH (21:53)
[2021-02-16] MEDS: HEPARIN NA (PORCINE) 5,000 UNITS/ML 1ML VIAL SQ SCH (05:48)
[2021-02-16] MEDS: TOPIRAMATE 100 MG TABLET PO SCH (06:14)
[2021-02-16 10:13] VITALS: BP 127/74; PULSE 84; TEMP 98.2
[2021-02-16] MEDS: AMINO ACIDS/PROTEIN HYDROLYS 30 ML LIQUID.PKT PO SCH (10:35)
[2021-02-16] MEDS: CLOPIDOGREL BISULFATE 75 MG TABLET (FP) PO SCH (10:35)
[2021-02-16] MEDS: CARBIDOPA/LEVODOPA 25/100 TABLET (FP) PO SCH (10:37)
[2021-02-16] MEDS: VITAMIN B COMP W-C 1 EA TABLET (NEPHRO-VITE) PO SCH (10:37)
[2021-02-16] MEDS: levETIRAcetam XR 500 MG TAB PO SCH (10:38)
[2021-02-16] MEDS: COLLAGENASE CLOSTRIDIUM HIST. 30 GRAMS TUBE TP SCH (12:00)
[2021-02-16] MEDS: SODIUM HYPOCHLORITE 0.25%- 473 ML BULK BOTTLE TP SCH (12:00)
[2021-02-16 12:08] LABS: BASO % 0.2 % (0-2.0); HEMATOCRIT 23.6 % (32.4-45.2); HEMOGLOBIN 7.6 GM/dL (10.7-15.3); LYMPH % 8.3 % (8-40); MCH 32.6 pg (25.7-33.7); MEAN CELL VOLUME 101.7 fl (80-96); MEAN PLT VOLUME 9.9 fl (7.5-11.1); MONO % 9.9 % (3.8-10.2); NEUT % 80.6 % (42.8-82.8); PLATELET COUNT 120 10^3/uL (134-434); RBC 2.32 M/mm3 (3.60-5.2); RDW 15.6 % (11.6-15.6); WHITE BLOOD COUNT 13.6 K/mm3 (4.0-10.0)
== END 2021-02-16 12:45 | disposition home or self-care (01) | DRG 592 ==
LOC: JER 10:53 → JERBED 14:16 → J8W 17:08
PROVIDERS: ADMIT Family Medicine; ATTEND Family Medicine
PROC: 5A1D70Z Performance of Urinary Filtration, Intermittent, Less than 6 Hours Per Day (ICD-10-PCS; principal; 2021-02-13)
DX: L89.152 Pressure ulcer of sacral region, stage 2 (principal); N18.6 End stage renal disease; I69.351 Hemiplegia and hemiparesis following cerebral infarction affecting right dominant side; I13.2 Hypertensive heart and chronic kidney disease with heart failure and with stage 5 chronic kidney disease, or end stage renal disease; I50.32 Chronic diastolic (congestive) heart failure; N39.0 Urinary tract infection, site not specified; I95.9 Hypotension, unspecified; E11.22 Type 2 diabetes mellitus with diabetic chronic kidney disease; Z99.2 Dependence on renal dialysis; G40.909 Epilepsy, unspecified, not intractable, without status epilepticus; K21.9 Gastro-esophageal reflux disease without esophagitis; E78.5 Hyperlipidemia, unspecified; E11.319 Type 2 diabetes mellitus with unspecified diabetic retinopathy without macular edema; R07.89 Other chest pain; D69.6 Thrombocytopenia, unspecified; G20 Parkinson's disease; D64.9 Anemia, unspecified; E11.51 Type 2 diabetes mellitus with diabetic peripheral angiopathy without gangrene; Z79.4 Long term (current) use of insulin; Z74.01 Bed confinement status; M24.542 Contracture, left hand
CPT/HCPCS: 36415; 71045-TC-FY; 80053; 81003; 82550; 82553; 82728; 82803; 82962; 83540; 83550; 83605; 83735; 84443; 84484; 85025; 85610; 85730; 86803; 87040; 87086; 87340; 93005; 93010; 99285-25; C9803; G0480; J0131; J1644; Q5106; U0003; U0005

== ENCOUNTER 2021-02-21 15:48 | Inpatient (IN) | payer OTHER ==
[2021-02-21] MEDS ORDERED: VANCOMYCIN 1,000 MG in DEXTROSE 5%-WATER - 250 ML IVPB ONE (16:51)
[2021-02-21] MEDS ORDERED: AZTREONAM 1 GM in DEXTROSE 5%-WATER - 50 ML IVPB ONE (16:56)
[2021-02-21 17:21] LABS: RBC 2.14 M/mm3 (3.60-5.2); WHITE BLOOD COUNT 14.2 K/mm3 (4.0-10.0)
[2021-02-21 17:22] LABS: HEMATOCRIT 21.3 % (32.4-45.2); MCH 31.9 pg (25.7-33.7); MEAN CELL VOLUME 99.6 fl (80-96); MEAN PLT VOLUME 9.3 fl (7.5-11.1); PLATELET COUNT 160 10^3/uL (134-434); RDW 15.8 % (11.6-15.6)
[2021-02-21 17:25] LABS: HEMOGLOBIN 6.8 GM/dL (10.7-15.3)
[2021-02-21 17:32] LABS: INR 1.17 (0.83-1.09); PROTHROMBIN TIME (PATIENT) 13.7 SEC (9.7-13.0)
[2021-02-21 17:35] LABS: ACTIVATED PTT 24.5 SECONDS (25.2-36.5)
[2021-02-21 17:37] LABS: CHLORIDE 104 mmol/L (98-107); SODIUM 142 mmol/L (136-145)
[2021-02-21] MEDS ORDERED: VANCOMYCIN 1 GRAM (PRE-DOCKED) 1,000 MG/250 ML BAG IVPB ONE (17:37)
[2021-02-21 17:39] LABS: ALBUMIN 1.9 g/dl (3.4-5.0); ANION GAP 8 MMOL/L (8-16); BLOOD UREA NITROGEN 31.9 mg/dL (7-18); CALCIUM 8.8 mg/dL (8.5-10.1); CO2 30 mmol/L (21-32); GLUCOSE,RANDOM 121 mg/dL (74-106)
[2021-02-21 17:42] LABS: CREATININE 4.1 mg/dL (0.55-1.3); SGOT/AST 15 U/L (15-37); SGPT/ALT < 6 U/L (13-61)
[2021-02-21 17:44] LABS: TOT PROT 5.4 g/dl (6.4-8.2)
[2021-02-21 17:45] LABS: ALK PHOS 75 U/L (45-117)
[2021-02-21 18:11] LABS: BILIRUBIN,TOTAL 0.6 mg/dL (0.2-1)
[2021-02-21 19:34] LABS: ANISOCYTOSIS 2+; MACROCYTOSIS 2+; PLATELET ESTIMATE DECREASED
[2021-02-21] MEDS ORDERED: POLYETHYLENE GLYCOL (HEALTHYLAX) 3350 17 GM PACKET PO PRN (21:20)
[2021-02-21] MEDS ORDERED: ACETAMINOPHEN 325 MG TABLET (FP) PO PRN (21:20)
[2021-02-21] MEDS ORDERED: levETIRAcetam 500 MG/5 ML INJECTION VIAL IVPB ONE (23:09)
[2021-02-22] MEDS ORDERED: AZTREONAM 1 GM VIAL (RESTRICTED TO ID) ONE (03:40)
[2021-02-22 09:14] LABS: HEMATOCRIT 23.8 % (32.4-45.2); HEMOGLOBIN 7.9 GM/dL (10.7-15.3); MCH 31.6 pg (25.7-33.7); MCHC 33.2 g/dl (32.0-36.0); MEAN PLT VOLUME 9.9 fl (7.5-11.1); PLATELET COUNT 147 10^3/uL (134-434); WHITE BLOOD COUNT 18.7 K/mm3 (4.0-10.0)
[2021-02-22 09:53] LABS: BLOOD UREA NITROGEN 36.8 mg/dL (7-18)
[2021-02-22 09:54] LABS: CALCIUM 8.9 mg/dL (8.5-10.1)
[2021-02-22 09:56] LABS: CREATININE 4.3 mg/dL (0.55-1.3)
[2021-02-22 09:57] LABS: PHOSPHOROUS 2.1 mg/dL (2.5-4.9)
[2021-02-22 10:08] LABS: ANISOCYTOSIS 1+; MACROCYTOSIS 1+; PLATELET ESTIMATE DECREASED; TARGET CELLS 1+
[2021-02-22] MEDS ORDERED: SODIUM CHLORIDE 250 ML IV PRN (10:08)
[2021-02-22] MEDS ORDERED: EPOETIN ALFA-EPBX 10,000 UNIT/ML VIAL IVPUSH ONE (11:00)
[2021-02-22] MEDS ORDERED: AZTREONAM 1 GM VIAL (RESTRICTED TO ID) IVPB ONE (12:00)
[2021-02-22] MEDS ORDERED: VANCOMYCIN 750 MG in DEXTROSE 5%-WATER - 150 ML IVPB SCH (12:00)
[2021-02-22] MEDS: INSULIN SLIDING SCALE (NOVOLOG) 1 VIAL SQ SCH ×3 (12:04→23:45)
[2021-02-22] MEDS ORDERED: VANCOMYCIN 1 GRAM (PRE-DOCKED) 1,000 MG/250 ML BAG IVPB ONE ×2 (17:34→18:22)
[2021-02-22] MEDS ORDERED: CEFTRIAXONE 1 GM/50 ML BAG ONE (17:49)
[2021-02-22] MEDS: CEFTRIAXONE 1 GM in DEXTROSE 5%-WATER - 50 ML IVPB SCH (17:50)
[2021-02-22] MEDS ORDERED: levETIRAcetam 500 MG/5 ML INJECTION VIAL IVPB ONE (18:03)
[2021-02-22] MEDS: levETIRAcetam 500 MG/5 ML INJECTION VIAL IVPB SCH (18:09)
[2021-02-23] MEDS: levETIRAcetam 500 MG/5 ML INJECTION VIAL IVPB SCH ×2 (05:35→18:22)
[2021-02-23] MEDS: INSULIN SLIDING SCALE (NOVOLOG) 1 VIAL SQ SCH ×4 (06:24→21:55)
[2021-02-23 08:56] LABS: HEMATOCRIT 27.6 % (32.4-45.2); MCH 30.7 pg (25.7-33.7); MCHC 32.8 g/dl (32.0-36.0); MEAN CELL VOLUME 93.5 fl (80-96); MEAN PLT VOLUME 9.3 fl (7.5-11.1); PLATELET COUNT 137 10^3/uL (134-434); RBC 2.95 M/mm3 (3.60-5.2); RDW 17.9 % (11.6-15.6); WHITE BLOOD COUNT 20.6 K/mm3 (4.0-10.0)
[2021-02-23 08:57] LABS: CHLORIDE 106 mmol/L (98-107); SODIUM 144 mmol/L (136-145)
[2021-02-23 09:02] LABS: CALCIUM 8.6 mg/dL (8.5-10.1)
[2021-02-23 09:03] LABS: ANION GAP 10 MMOL/L (8-16); BLOOD UREA NITROGEN 21.1 mg/dL (7-18); CO2 28 mmol/L (21-32); GLUCOSE,RANDOM 67 mg/dL (74-106)
[2021-02-23 09:06] LABS: SGOT/AST 16 U/L (15-37)
[2021-02-23 09:07] LABS: BILIRUBIN,TOTAL 0.4 mg/dL (0.2-1); TOT PROT 4.9 g/dl (6.4-8.2)
[2021-02-23 09:09] LABS: ALK PHOS 70 U/L (45-117)
[2021-02-23 09:15] LABS: ALBUMIN 1.5 g/dl (3.4-5.0); SGPT/ALT < 6 U/L (13-61)
[2021-02-23] MEDS ORDERED: DEXTROSE 5%-WATER - 50 ML IVPB ONE (09:23)
[2021-02-23] MEDS ORDERED: cefTRIAXone SODIUM 1 GM VIAL ONE (09:23)
[2021-02-23] MEDS: CEFTRIAXONE 1 GM in DEXTROSE 5%-WATER - 50 ML IVPB SCH (09:25)
[2021-02-23 10:33] LABS: ANISOCYTOSIS 2+; MACROCYTOSIS 2+; OVALOCYTE 1+; PLATELET ESTIMATE NORMAL
[2021-02-23] MEDS: KCL 10 MEQ IVPB 10 MEQ/100 ML INFUS.BAG IVPB SCH ×2 (11:21→12:29)
[2021-02-23] MEDS ORDERED: ACETAMINOPHEN 1000 MG/100 ML BAG IVPB PRN (11:43)
[2021-02-23] MEDS: DEXTROSE 5%-WATER - 1,000 ML IV SCH (11:55)
[2021-02-23] MEDS ORDERED: AZTREONAM 2 GM in DEXTROSE 5%-WATER 100 ML IVPB SCH (12:00)
[2021-02-23] MEDS ORDERED: MIDAZOLAM HCL 2 MG/2 ML SINGLE DOSE VIAL ONE (13:46)
[2021-02-23 14:15] VITALS: BMI 32.9
[2021-02-23] MEDS ORDERED: SODIUM CHLORIDE 1,000 ML IV SCH (14:15)
[2021-02-23] MEDS ORDERED: ONDANSETRON 4 MG/2 ML VIAL IVPUSH PRN (14:15)
[2021-02-23] MEDS ORDERED: POTASSIUM CHLORIDE TABS 10 MEQ TABLET.ER (FP) PO ONE (14:43)
[2021-02-23] MEDS ORDERED: KCL 10 MEQ IVPB 10 MEQ/100 ML INFUS.BAG IVPB SCH (15:30)
[2021-02-24] MEDS: levETIRAcetam 500 MG/5 ML INJECTION VIAL IVPB SCH (05:19)
[2021-02-24] MEDS: INSULIN SLIDING SCALE (NOVOLOG) 1 VIAL SQ SCH ×4 (06:10→22:15)
[2021-02-24] MEDS ORDERED: SODIUM CHLORIDE 250 ML IV PRN (07:49)
[2021-02-24] MEDS ORDERED: EPOETIN ALFA-EPBX 10,000 UNIT/ML VIAL SQ ONE (08:00)
[2021-02-24] MEDS ORDERED: cefTRIAXone SODIUM 1 GM VIAL ONE (09:50)
[2021-02-24] MEDS ORDERED: DEXTROSE 5%-WATER - 50 ML IVPB ONE (09:51)
[2021-02-24] MEDS ORDERED: amLODIPine BESYLATE 10 MG TABLET (FP) PO SCH (10:00)
[2021-02-24] MEDS ORDERED: hydrALAZINE HCL 25 MG TABLET (FP) PO SCH (10:00)
[2021-02-24 10:19] LABS: HEMATOCRIT 29.7 % (32.4-45.2); HEMOGLOBIN 9.7 GM/dL (10.7-15.3); MCH 30.8 pg (25.7-33.7); MCHC 32.6 g/dl (32.0-36.0); MEAN CELL VOLUME 94.4 fl (80-96); MEAN PLT VOLUME 9.2 fl (7.5-11.1); PLATELET COUNT 150 10^3/uL (134-434); RBC 3.14 M/mm3 (3.60-5.2); RDW 17.3 % (11.6-15.6); WHITE BLOOD COUNT 22.3 K/mm3 (4.0-10.0)
[2021-02-24] MEDS: levETIRAcetam XR 500 MG TAB PO SCH ×3 (10:30→22:38)
[2021-02-24] MEDS: CARBIDOPA/LEVODOPA 25/100 TABLET (FP) PO SCH ×4 (10:30→22:39)
[2021-02-24] MEDS: CEFTRIAXONE 1 GM in DEXTROSE 5%-WATER - 50 ML IVPB SCH (10:30)
[2021-02-24] MEDS: CARVEDILOL 6.25 MG TABLET (FP) PO SCH ×3 (10:31→22:38)
[2021-02-24] MEDS: CLOPIDOGREL BISULFATE 75 MG TABLET (FP) PO SCH ×2 (10:31→14:01)
[2021-02-24 10:40] LABS: CHLORIDE 108 mmol/L (98-107); SODIUM 144 mmol/L (136-145)
[2021-02-24 10:46] LABS: ANISOCYTOSIS 1+; MACROCYTOSIS 1+; PLATELET ESTIMATE DECREASED; TARGET CELLS 1+
[2021-02-24 10:48] LABS: ALBUMIN 1.8 g/dl (3.4-5.0); ANION GAP 5 MMOL/L (8-16); CALCIUM 8.8 mg/dL (8.5-10.1); CO2 32 mmol/L (21-32); GLUCOSE,RANDOM 102 mg/dL (74-106)
[2021-02-24 10:49] LABS: BLOOD UREA NITROGEN 15.7 mg/dL (7-18)
[2021-02-24 10:51] LABS: CREATININE 2.2 mg/dL (0.55-1.3)
[2021-02-24 10:52] LABS: SGOT/AST 11 U/L (15-37); SGPT/ALT < 6 U/L (13-61)
[2021-02-24 10:53] LABS: ALK PHOS 79 U/L (45-117); BILIRUBIN,TOTAL 0.5 mg/dL (0.2-1); TOT PROT 5.3 g/dl (6.4-8.2)
[2021-02-24] MEDS ORDERED: VANCOMYCIN 1 GRAM (PRE-DOCKED) 1,000 MG/250 ML BAG IVPB ONE (12:00)
[2021-02-24] MEDS: DEXTROSE 5%-WATER - 1,000 ML IV SCH ×2 (14:02→22:23)
[2021-02-24] MEDS ORDERED: ACETAMINOPHEN 1000 MG/100 ML BAG IVPB PRN (16:45)
[2021-02-24] MEDS: ACETAMINOPHEN 1000 MG/100 ML BAG IVPB PRN ×2 (17:24→23:02)
[2021-02-24] MEDS: COLLAGENASE CLOSTRIDIUM HIST. 30 GRAMS TUBE TP SCH (17:25)
[2021-02-24] MEDS ORDERED: PT OWN MED DRAWER 7, Y5N ONE (21:14)
[2021-02-24] MEDS: ATORVASTATIN CA 80 MG TABLET (FP) PO SCH (22:38)
[2021-02-24] MEDS: TOPIRAMATE 100 MG TABLET PO SCH (22:39)
[2021-02-25] MEDS: INSULIN SLIDING SCALE (NOVOLOG) 1 VIAL SQ SCH ×4 (06:02→22:28)
[2021-02-25] MEDS: TOPIRAMATE 100 MG TABLET PO SCH ×2 (06:17→22:55)
[2021-02-25] MEDS ORDERED: SODIUM CHLORIDE 250 ML IV PRN (07:00)
[2021-02-25] MEDS ORDERED: cefTRIAXone SODIUM 1 GM VIAL ONE (08:13)
[2021-02-25] MEDS ORDERED: PT OWN MED DRAWER 7, Y5N ONE ×3 (08:13→13:27)
[2021-02-25] MEDS ORDERED: DEXTROSE 5%-WATER - 50 ML IVPB ONE (08:14)
[2021-02-25] MEDS: CLOPIDOGREL BISULFATE 75 MG TABLET (FP) PO SCH (09:15)
[2021-02-25] MEDS: AMINO ACIDS/PROTEIN HYDROLYS 30 ML LIQUID.PKT PO SCH (09:20)
[2021-02-25] MEDS: CARBIDOPA/LEVODOPA 25/100 TABLET (FP) PO SCH ×4 (09:22→22:56)
[2021-02-25] MEDS: CARVEDILOL 6.25 MG TABLET (FP) PO SCH ×2 (09:22→21:44)
[2021-02-25] MEDS: levETIRAcetam XR 500 MG TAB PO SCH ×2 (09:23→22:55)
[2021-02-25] MEDS: CEFTRIAXONE 1 GM in DEXTROSE 5%-WATER - 50 ML IVPB SCH (09:25)
[2021-02-25] MEDS: COLLAGENASE CLOSTRIDIUM HIST. 30 GRAMS TUBE TP SCH (09:37)
[2021-02-25] MEDS: DEXTROSE 5%-WATER - 1,000 ML IV SCH (12:42)
[2021-02-25] MEDS: ATORVASTATIN CA 80 MG TABLET (FP) PO SCH (21:44)
[2021-02-26] MEDS: INSULIN SLIDING SCALE (NOVOLOG) 1 VIAL SQ SCH ×4 (06:16→22:16)
[2021-02-26] MEDS: TOPIRAMATE 100 MG TABLET PO SCH ×3 (06:29→22:15)
[2021-02-26] MEDS ORDERED: EPOETIN ALFA-EPBX 10,000 UNIT/ML VIAL SQ ONE (07:00)
[2021-02-26] MEDS: AMINO ACIDS/PROTEIN HYDROLYS 30 ML LIQUID.PKT PO SCH (08:17)
[2021-02-26 08:50] LABS: BASO % 0.2 % (0-2.0); EOS % 1.6 % (0-4.5); HEMATOCRIT 27.8 % (32.4-45.2); HEMOGLOBIN 8.8 GM/dL (10.7-15.3); LYMPH % 7.7 % (8-40); MCH 30.2 pg (25.7-33.7); MCHC 31.7 g/dl (32.0-36.0); MEAN CELL VOLUME 95.1 fl (80-96); MEAN PLT VOLUME 9.1 fl (7.5-11.1); MONO % 5.6 % (3.8-10.2); NEUT % 84.9 % (42.8-82.8); PLATELET COUNT 136 10^3/uL (134-434); RBC 2.92 M/mm3 (3.60-5.2); RDW 17.3 % (11.6-15.6); WHITE BLOOD COUNT 17.1 K/mm3 (4.0-10.0)
[2021-02-26 09:08] LABS: CHLORIDE 106 mmol/L (98-107); SODIUM 143 mmol/L (136-145)
[2021-02-26 09:10] LABS: ALBUMIN 1.6 g/dl (3.4-5.0); CALCIUM 8.4 mg/dL (8.5-10.1)
[2021-02-26 09:11] LABS: ANION GAP 7 MMOL/L (8-16); BLOOD UREA NITROGEN 24.2 mg/dL (7-18); CO2 30 mmol/L (21-32)
[2021-02-26 09:12] LABS: GLUCOSE,RANDOM 81 mg/dL (74-106)
[2021-02-26 09:13] LABS: SGPT/ALT < 6 U/L (13-61)
[2021-02-26 09:14] LABS: CREATININE 3.4 mg/dL (0.55-1.3)
[2021-02-26 09:15] LABS: SGOT/AST 10 U/L (15-37)
[2021-02-26 09:16] LABS: ALK PHOS 74 U/L (45-117); BILIRUBIN,TOTAL 0.4 mg/dL (0.2-1); TOT PROT 4.9 g/dl (6.4-8.2)
[2021-02-26] MEDS ORDERED: cefTRIAXone SODIUM 1 GM VIAL ONE (09:41)
[2021-02-26] MEDS ORDERED: DEXTROSE 5%-WATER - 50 ML IVPB ONE (09:42)
[2021-02-26] MEDS: CARVEDILOL 6.25 MG TABLET (FP) PO SCH ×2 (10:18→22:16)
[2021-02-26] MEDS: CEFTRIAXONE 1 GM in DEXTROSE 5%-WATER - 50 ML IVPB SCH (10:45)
[2021-02-26] MEDS: CARBIDOPA/LEVODOPA 25/100 TABLET (FP) PO SCH ×4 (10:46→22:16)
[2021-02-26] MEDS: levETIRAcetam 500 MG TABLET (FP) PO SCH ×2 (10:46→22:16)
[2021-02-26] MEDS: COLLAGENASE CLOSTRIDIUM HIST. 30 GRAMS TUBE TP SCH (10:47)
[2021-02-26] MEDS: CLOPIDOGREL BISULFATE 75 MG TABLET (FP) PO SCH (10:49)
[2021-02-26 11:32] LABS: PLATELET ESTIMATE DECREASED
[2021-02-26] MEDS: ACETAMINOPHEN 1000 MG/100 ML BAG IVPB PRN (17:13)
[2021-02-26] MEDS: DEXTROSE 5%-WATER - 1,000 ML IV SCH (19:05)
[2021-02-26] MEDS: ATORVASTATIN CA 80 MG TABLET (FP) PO SCH (22:16)
[2021-02-27] MEDS: DEXTROSE 5%-WATER - 1,000 ML IV SCH ×2 (00:56→13:36)
[2021-02-27] MEDS: INSULIN SLIDING SCALE (NOVOLOG) 1 VIAL SQ SCH ×4 (07:02→21:51)
[2021-02-27] MEDS: TOPIRAMATE 100 MG TABLET PO SCH ×3 (07:02→22:45)
[2021-02-27] MEDS ORDERED: DEXTROSE 5%-WATER - 50 ML IVPB ONE (10:27)
[2021-02-27] MEDS ORDERED: PT OWN MED DRAWER 7, Y5N ONE ×3 (10:27→22:26)
[2021-02-27] MEDS ORDERED: cefTRIAXone SODIUM 1 GM VIAL ONE (10:27)
[2021-02-27] MEDS: CEFTRIAXONE 1 GM in DEXTROSE 5%-WATER - 50 ML IVPB SCH (10:33)
[2021-02-27] MEDS: CARVEDILOL 6.25 MG TABLET (FP) PO SCH ×4 (10:34→22:42)
[2021-02-27] MEDS: AMINO ACIDS/PROTEIN HYDROLYS 30 ML LIQUID.PKT PO SCH ×2 (10:34→10:54)
[2021-02-27] MEDS: CLOPIDOGREL BISULFATE 75 MG TABLET (FP) PO SCH ×2 (10:34→10:55)
[2021-02-27] MEDS: CARBIDOPA/LEVODOPA 25/100 TABLET (FP) PO SCH ×6 (10:34→22:45)
[2021-02-27] MEDS: levETIRAcetam 500 MG TABLET (FP) PO SCH ×4 (10:34→22:45)
[2021-02-27] MEDS: COLLAGENASE CLOSTRIDIUM HIST. 30 GRAMS TUBE TP SCH (12:55)
[2021-02-27 13:24] LABS: CHLORIDE 102 mmol/L (98-107); SODIUM 138 mmol/L (136-145)
[2021-02-27 13:26] LABS: CALCIUM 8.2 mg/dL (8.5-10.1)
[2021-02-27 13:27] LABS: ALBUMIN 1.6 g/dl (3.4-5.0); ANION GAP 7 MMOL/L (8-16); BLOOD UREA NITROGEN 15.1 mg/dL (7-18); CO2 29 mmol/L (21-32); GLUCOSE,RANDOM 95 mg/dL (74-106); MAGNESIUM 1.7 mg/dL (1.8-2.4)
[2021-02-27 13:30] LABS: CREATININE 2.8 mg/dL (0.55-1.3); SGOT/AST 13 U/L (15-37); SGPT/ALT < 6 U/L (13-61)
[2021-02-27 13:31] LABS: BILIRUBIN,TOTAL 0.4 mg/dL (0.2-1); TOT PROT 5.1 g/dl (6.4-8.2)
[2021-02-27 13:33] LABS: ALK PHOS 76 U/L (45-117)
[2021-02-27 14:04] LABS: BASO % 0.4 % (0-2.0); HEMATOCRIT 28.1 % (32.4-45.2); LYMPH % 8.3 % (8-40); MCH 30.6 pg (25.7-33.7); MEAN CELL VOLUME 95.6 fl (80-96); MEAN PLT VOLUME 9.4 fl (7.5-11.1); MONO % 5.3 % (3.8-10.2); PLATELET COUNT 147 10^3/uL (134-434); RBC 2.94 M/mm3 (3.60-5.2); RDW 17.2 % (11.6-15.6); WHITE BLOOD COUNT 16.4 K/mm3 (4.0-10.0)
[2021-02-27] MEDS: ATORVASTATIN CA 80 MG TABLET (FP) PO SCH ×2 (22:28→22:45)
[2021-02-28] MEDS: TOPIRAMATE 100 MG TABLET PO SCH ×2 (06:32→22:01)
[2021-02-28] MEDS: INSULIN SLIDING SCALE (NOVOLOG) 1 VIAL SQ SCH ×4 (06:32→22:01)
[2021-02-28] MEDS: DEXTROSE 5%-WATER - 1,000 ML IV SCH ×2 (06:33→14:37)
[2021-02-28] MEDS: CARVEDILOL 6.25 MG TABLET (FP) PO SCH ×2 (10:54→22:00)
[2021-02-28] MEDS: AMINO ACIDS/PROTEIN HYDROLYS 30 ML LIQUID.PKT PO SCH (10:54)
[2021-02-28] MEDS: CLOPIDOGREL BISULFATE 75 MG TABLET (FP) PO SCH (10:55)
[2021-02-28] MEDS: CARBIDOPA/LEVODOPA 25/100 TABLET (FP) PO SCH ×4 (10:55→22:01)
[2021-02-28] MEDS: levETIRAcetam 500 MG TABLET (FP) PO SCH (10:55)
[2021-02-28] MEDS ORDERED: cefTRIAXone SODIUM 1 GM VIAL ONE (11:06)
[2021-02-28] MEDS ORDERED: DEXTROSE 5%-WATER - 50 ML IVPB ONE (11:07)
[2021-02-28] MEDS: CEFTRIAXONE 1 GM in DEXTROSE 5%-WATER - 50 ML IVPB SCH (11:14)
[2021-02-28] MEDS: AMINO ACIDS 4.25%/D5W 1,000 ML IV SCH (11:15)
[2021-02-28] MEDS: COLLAGENASE CLOSTRIDIUM HIST. 30 GRAMS TUBE TP SCH (11:28)
[2021-02-28] MEDS: levETIRAcetam 500 MG/5 ML INJECTION VIAL IVPB SCH ×2 (11:51→22:01)
[2021-02-28] MEDS ORDERED: VANCOMYCIN 1 GRAM (PRE-DOCKED) 1,000 MG/250 ML BAG IVPB ONE (12:00)
[2021-02-28 12:43] LABS: WHITE BLOOD COUNT 16.5 K/mm3 (4.0-10.0)
[2021-02-28 12:44] LABS: BASO % 0.3 % (0-2.0); EOS % 0.6 % (0-4.5); HEMOGLOBIN 9.3 GM/dL (10.7-15.3); LYMPH % 8.3 % (8-40); MCH 30.9 pg (25.7-33.7); MCHC 32.2 g/dl (32.0-36.0); MEAN CELL VOLUME 95.8 fl (80-96); MEAN PLT VOLUME 9.1 fl (7.5-11.1); NEUT % 85.8 % (42.8-82.8); PLATELET COUNT 144 10^3/uL (134-434); RBC 3.03 M/mm3 (3.60-5.2); RDW 17.8 % (11.6-15.6)
[2021-02-28 13:10] LABS: CHLORIDE 100 mmol/L (98-107); SODIUM 138 mmol/L (136-145)
[2021-02-28 13:12] LABS: CALCIUM 8.6 mg/dL (8.5-10.1)
[2021-02-28 13:13] LABS: ALBUMIN 1.6 g/dl (3.4-5.0); ANION GAP 7 MMOL/L (8-16); BLOOD UREA NITROGEN 20.1 mg/dL (7-18); CO2 31 mmol/L (21-32); GLUCOSE,RANDOM 94 mg/dL (74-106); MAGNESIUM 1.8 mg/dL (1.8-2.4)
[2021-02-28 13:16] LABS: CREATININE 3.4 mg/dL (0.55-1.3); SGOT/AST 10 U/L (15-37); SGPT/ALT < 6 U/L (13-61)
[2021-02-28 13:18] LABS: BILIRUBIN,TOTAL 0.8 mg/dL (0.2-1); TOT PROT 5.1 g/dl (6.4-8.2)
[2021-02-28 13:19] LABS: ALK PHOS 74 U/L (45-117)
[2021-02-28] MEDS ORDERED: VANCOMYCIN 1 GM in D5W (PRE-DOCKED) 1,000 MG/250 ML IVPB ONE (14:40)
[2021-02-28] MEDS: ATORVASTATIN CA 80 MG TABLET (FP) PO SCH (22:01)
[2021-03-01] MEDS: TOPIRAMATE 100 MG TABLET PO SCH ×2 (06:26→21:18)
[2021-03-01] MEDS: INSULIN SLIDING SCALE (NOVOLOG) 1 VIAL SQ SCH ×4 (06:26→21:19)
[2021-03-01] MEDS ORDERED: EPOETIN ALFA-EPBX 4,000 UNIT/ML VIAL IVPUSH ONE (07:00)
[2021-03-01] MEDS ORDERED: cefTRIAXone SODIUM 1 GM VIAL ONE (09:04)
[2021-03-01] MEDS ORDERED: DEXTROSE 5%-WATER - 50 ML IVPB ONE (09:05)
[2021-03-01 09:25] LABS: BASO % 0.3 % (0-2.0); EOS % 1.1 % (0-4.5); HEMATOCRIT 26.3 % (32.4-45.2); HEMOGLOBIN 8.4 GM/dL (10.7-15.3); LYMPH % 9.7 % (8-40); MCH 30.3 pg (25.7-33.7); MEAN CELL VOLUME 94.7 fl (80-96); MEAN PLT VOLUME 9.1 fl (7.5-11.1); MONO % 5.6 % (3.8-10.2); NEUT % 83.3 % (42.8-82.8); PLATELET COUNT 124 10^3/uL (134-434); RBC 2.78 M/mm3 (3.60-5.2); RDW 17.5 % (11.6-15.6); WHITE BLOOD COUNT 13.7 K/mm3 (4.0-10.0)
[2021-03-01 09:43] LABS: CHLORIDE 98 mmol/L (98-107); SODIUM 136 mmol/L (136-145)
[2021-03-01 09:45] LABS: ANION GAP 8 MMOL/L (8-16); CALCIUM 8.4 mg/dL (8.5-10.1); CO2 30 mmol/L (21-32); GLUCOSE,RANDOM 124 mg/dL (74-106)
[2021-03-01 09:46] LABS: ALBUMIN 1.6 g/dl (3.4-5.0); BLOOD UREA NITROGEN 26.2 mg/dL (7-18); MAGNESIUM 1.7 mg/dL (1.8-2.4)
[2021-03-01 09:48] LABS: SGPT/ALT < 6 U/L (13-61)
[2021-03-01 09:49] LABS: CREATININE 3.8 mg/dL (0.55-1.3); SGOT/AST 8 U/L (15-37)
[2021-03-01 09:50] LABS: BILIRUBIN,TOTAL 0.4 mg/dL (0.2-1); TOT PROT 4.9 g/dl (6.4-8.2)
[2021-03-01 09:51] LABS: ALK PHOS 72 U/L (45-117)
[2021-03-01] MEDS: AMINO ACIDS 4.25%/D5W 1,000 ML IV SCH (12:01)
[2021-03-01] MEDS: AMINO ACIDS/PROTEIN HYDROLYS 30 ML LIQUID.PKT PO SCH (12:02)
[2021-03-01] MEDS: levETIRAcetam 500 MG/5 ML INJECTION VIAL IVPB SCH ×2 (12:03→21:16)
[2021-03-01] MEDS: CARVEDILOL 6.25 MG TABLET (FP) PO SCH ×2 (12:03→21:18)
[2021-03-01] MEDS: CEFTRIAXONE 1 GM in DEXTROSE 5%-WATER - 50 ML IVPB SCH (12:03)
[2021-03-01] MEDS: CLOPIDOGREL BISULFATE 75 MG TABLET (FP) PO SCH (12:03)
[2021-03-01] MEDS: CARBIDOPA/LEVODOPA 25/100 TABLET (FP) PO SCH ×4 (12:04→21:18)
[2021-03-01] MEDS: COLLAGENASE CLOSTRIDIUM HIST. 30 GRAMS TUBE TP SCH (12:04)
[2021-03-01] MEDS: DEXTROSE 5%-WATER - 1,000 ML IV SCH (12:05)
[2021-03-01] MEDS ORDERED: PT OWN MED DRAWER 7, Y5N ONE (14:35)
[2021-03-01] MEDS: ATORVASTATIN CA 80 MG TABLET (FP) PO SCH (21:18)
[2021-03-02] MEDS: INSULIN SLIDING SCALE (NOVOLOG) 1 VIAL SQ SCH ×4 (06:00→22:25)
[2021-03-02] MEDS: TOPIRAMATE 100 MG TABLET PO SCH ×2 (06:01→22:17)
[2021-03-02] MEDS ORDERED: cefTRIAXone SODIUM 1 GM VIAL ONE (08:55)
[2021-03-02] MEDS ORDERED: PT OWN MED DRAWER 7, Y5N ONE ×3 (08:55→20:15)
[2021-03-02] MEDS ORDERED: DEXTROSE 5%-WATER - 50 ML IVPB ONE (08:56)
[2021-03-02 09:18] LABS: BASO % 0.3 % (0-2.0); EOS % 0.5 % (0-4.5); HEMATOCRIT 27.9 % (32.4-45.2); HEMOGLOBIN 8.9 GM/dL (10.7-15.3); LYMPH % 8.4 % (8-40); MCH 30.8 pg (25.7-33.7); MEAN CELL VOLUME 96.2 fl (80-96); MEAN PLT VOLUME 9.8 fl (7.5-11.1); MONO % 5.1 % (3.8-10.2); NEUT % 85.7 % (42.8-82.8); PLATELET COUNT 135 10^3/uL (134-434); RDW 17.8 % (11.6-15.6); WHITE BLOOD COUNT 15.9 K/mm3 (4.0-10.0)
[2021-03-02] MEDS: CARVEDILOL 6.25 MG TABLET (FP) PO SCH ×2 (10:37→22:11)
[2021-03-02] MEDS: AMINO ACIDS/PROTEIN HYDROLYS 30 ML LIQUID.PKT PO SCH (10:37)
[2021-03-02] MEDS: CLOPIDOGREL BISULFATE 75 MG TABLET (FP) PO SCH (10:37)
[2021-03-02] MEDS: COLLAGENASE CLOSTRIDIUM HIST. 30 GRAMS TUBE TP SCH (10:38)
[2021-03-02] MEDS: CARBIDOPA/LEVODOPA 25/100 TABLET (FP) PO SCH ×4 (10:38→22:17)
[2021-03-02] MEDS: CEFTRIAXONE 1 GM in DEXTROSE 5%-WATER - 50 ML IVPB SCH (10:38)
[2021-03-02] MEDS: levETIRAcetam 500 MG/5 ML INJECTION VIAL IVPB SCH ×2 (10:38→22:11)
[2021-03-02] MEDS: AMINO ACIDS 4.25%/D5W 1,000 ML IV SCH (10:39)
[2021-03-02] MEDS: DEXTROSE 5%-WATER - 1,000 ML IV SCH (13:39)
[2021-03-02] MEDS: ATORVASTATIN CA 80 MG TABLET (FP) PO SCH (22:12)
[2021-03-03] MEDS: AMINO ACIDS 4.25%/D5W 1,000 ML IV SCH ×2 (05:54→12:28)
[2021-03-03] MEDS: INSULIN SLIDING SCALE (NOVOLOG) 1 VIAL SQ SCH ×4 (06:22→21:38)
[2021-03-03] MEDS: TOPIRAMATE 100 MG TABLET PO SCH ×2 (06:23→21:32)
[2021-03-03] MEDS ORDERED: PT OWN MED DRAWER 7, Y5N ONE ×2 (06:49→11:12)
[2021-03-03] MEDS ORDERED: SODIUM CHLORIDE 250 ML IV PRN (08:17)
[2021-03-03] MEDS ORDERED: EPOETIN ALFA-EPBX 4,000 UNIT/ML VIAL SQ ONE (08:30)
[2021-03-03] MEDS ORDERED: DEXTROSE 5%-WATER - 50 ML IVPB ONE (11:12)
[2021-03-03] MEDS ORDERED: cefTRIAXone SODIUM 1 GM VIAL ONE (11:12)
[2021-03-03] MEDS: levETIRAcetam 500 MG/5 ML INJECTION VIAL IVPB SCH ×2 (11:29→21:27)
[2021-03-03] MEDS: CEFTRIAXONE 1 GM in DEXTROSE 5%-WATER - 50 ML IVPB SCH (11:30)
[2021-03-03] MEDS: CLOPIDOGREL BISULFATE 75 MG TABLET (FP) PO SCH (11:34)
[2021-03-03] MEDS: AMINO ACIDS/PROTEIN HYDROLYS 30 ML LIQUID.PKT PO SCH (11:34)
[2021-03-03] MEDS: CARVEDILOL 6.25 MG TABLET (FP) PO SCH ×2 (11:34→21:27)
[2021-03-03] MEDS: DEXTROSE 5%-WATER - 1,000 ML IV SCH ×2 (11:35→21:26)
[2021-03-03] MEDS: CARBIDOPA/LEVODOPA 25/100 TABLET (FP) PO SCH ×4 (11:35→21:31)
[2021-03-03] MEDS: COLLAGENASE CLOSTRIDIUM HIST. 30 GRAMS TUBE TP SCH (15:04)
[2021-03-03] MEDS ORDERED: POLYETHYLENE GLYCOL (HEALTHYLAX) 3350 17 GM PACKET PO PRN (19:39)
[2021-03-03] MEDS: ATORVASTATIN CA 80 MG TABLET (FP) PO SCH (21:31)
[2021-03-04] MEDS: TOPIRAMATE 100 MG TABLET PO SCH ×2 (06:24→21:27)
[2021-03-04] MEDS: INSULIN SLIDING SCALE (NOVOLOG) 1 VIAL SQ SCH ×4 (06:24→21:27)
[2021-03-04] MEDS: DEXTROSE 5%-WATER - 1,000 ML IV SCH ×2 (06:26→19:40)
[2021-03-04] MEDS: AMINO ACIDS/PROTEIN HYDROLYS 30 ML LIQUID.PKT PO SCH (11:14)
[2021-03-04] MEDS: levETIRAcetam 500 MG/5 ML INJECTION VIAL IVPB SCH ×2 (11:15→21:27)
[2021-03-04] MEDS: CLOPIDOGREL BISULFATE 75 MG TABLET (FP) PO SCH (11:15)
[2021-03-04] MEDS: CARVEDILOL 6.25 MG TABLET (FP) PO SCH ×2 (11:15→21:27)
[2021-03-04] MEDS: CARBIDOPA/LEVODOPA 25/100 TABLET (FP) PO SCH ×4 (11:16→21:27)
[2021-03-04] MEDS: COLLAGENASE CLOSTRIDIUM HIST. 30 GRAMS TUBE TP SCH (13:58)
[2021-03-04] MEDS: AMINO ACIDS 4.25%/D5W 1,000 ML IV SCH (14:02)
[2021-03-04] MEDS ORDERED: ACETAMINOPHEN 325 MG TABLET (FP) PO PRN (15:48)
[2021-03-04] MEDS ORDERED: PT OWN MED DRAWER 7, Y5N ONE ×2 (16:34→20:41)
[2021-03-04] MEDS ORDERED: EPOETIN ALFA-EPBX 4,000 UNIT/ML VIAL SQ ONE (18:27)
[2021-03-04] MEDS ORDERED: SODIUM CHLORIDE 250 ML IV PRN (18:27)
[2021-03-04] MEDS: ATORVASTATIN CA 80 MG TABLET (FP) PO SCH (21:27)
[2021-03-05] MEDS: TOPIRAMATE 100 MG TABLET PO SCH ×2 (06:12→21:17)
[2021-03-05] MEDS: INSULIN SLIDING SCALE (NOVOLOG) 1 VIAL SQ SCH ×4 (06:12→21:19)
[2021-03-05] MEDS: AMINO ACIDS/PROTEIN HYDROLYS 30 ML LIQUID.PKT PO SCH (08:30)
[2021-03-05] MEDS: CARVEDILOL 6.25 MG TABLET (FP) PO SCH ×2 (10:02→21:16)
[2021-03-05 10:46] LABS: HEMATOCRIT 25.3 % (32.4-45.2); HEMOGLOBIN 8.1 GM/dL (10.7-15.3); MCH 30.9 pg (25.7-33.7); MCHC 32.1 g/dl (32.0-36.0); MEAN CELL VOLUME 96.5 fl (80-96); MEAN PLT VOLUME 9.4 fl (7.5-11.1); PLATELET COUNT 124 10^3/uL (134-434); RBC 2.62 M/mm3 (3.60-5.2); RDW 18.7 % (11.6-15.6); WHITE BLOOD COUNT 15.7 K/mm3 (4.0-10.0)
[2021-03-05] MEDS ORDERED: EPOETIN ALFA-EPBX 3,000 UNIT, EPOETIN ALFA-EPBX 2,000 UNIT IVPUSH ONE (11:00)
[2021-03-05] MEDS: CARBIDOPA/LEVODOPA 25/100 TABLET (FP) PO SCH ×4 (13:53→21:16)
[2021-03-05] MEDS: levETIRAcetam 500 MG/5 ML INJECTION VIAL IVPB SCH ×2 (13:58→21:13)
[2021-03-05] MEDS: CLOPIDOGREL BISULFATE 75 MG TABLET (FP) PO SCH (13:58)
[2021-03-05] MEDS: AMINO ACIDS 4.25%/D5W 1,000 ML IV SCH (19:04)
[2021-03-05] MEDS ORDERED: PT OWN MED DRAWER 7, Y5N ONE (21:09)
[2021-03-05] MEDS: ATORVASTATIN CA 80 MG TABLET (FP) PO SCH (21:16)
[2021-03-05] MEDS: COLLAGENASE CLOSTRIDIUM HIST. 30 GRAMS TUBE TP SCH (21:19)
[2021-03-05] MEDS: DEXTROSE 5%-WATER - 1,000 ML IV SCH (21:19)
[2021-03-06] MEDS: INSULIN SLIDING SCALE (NOVOLOG) 1 VIAL SQ SCH ×3 (06:58→22:56)
[2021-03-06] MEDS: TOPIRAMATE 100 MG TABLET PO SCH ×2 (06:58→22:54)
[2021-03-06 08:09] LABS: BASO % 0.4 % (0-2.0); EOS % 0.8 % (0-4.5); LYMPH % 8.7 % (8-40); MCH 30.4 pg (25.7-33.7); MCHC 31.8 g/dl (32.0-36.0); MEAN CELL VOLUME 95.5 fl (80-96); MEAN PLT VOLUME 8.9 fl (7.5-11.1); MONO % 6.1 % (3.8-10.2); PLATELET COUNT 115 10^3/uL (134-434); RBC 2.62 M/mm3 (3.60-5.2); RDW 18.6 % (11.6-15.6)
[2021-03-06 08:27] LABS: CHLORIDE 101 mmol/L (98-107); SODIUM 138 mmol/L (136-145)
[2021-03-06 08:30] LABS: ALBUMIN 1.7 g/dl (3.4-5.0); BLOOD UREA NITROGEN 17.8 mg/dL (7-18); CO2 29 mmol/L (21-32); GLUCOSE,RANDOM 165 mg/dL (74-106)
[2021-03-06 08:33] LABS: BILIRUBIN,TOTAL 0.4 mg/dL (0.2-1); CREATININE 2.2 mg/dL (0.55-1.3); SGOT/AST 10 U/L (15-37)
[2021-03-06 08:35] LABS: TOT PROT 4.9 g/dl (6.4-8.2)
[2021-03-06 08:36] LABS: ALK PHOS 66 U/L (45-117)
[2021-03-06 08:49] LABS: ANION GAP 8 MMOL/L (8-16); SGPT/ALT < 6 U/L (13-61)
[2021-03-06] MEDS ORDERED: PT OWN MED DRAWER 7, Y5N ONE ×2 (09:11→22:40)
[2021-03-06] MEDS: CARVEDILOL 6.25 MG TABLET (FP) PO SCH ×2 (09:25→22:52)
[2021-03-06] MEDS: CARBIDOPA/LEVODOPA 25/100 TABLET (FP) PO SCH ×4 (09:25→22:52)
[2021-03-06] MEDS: COLLAGENASE CLOSTRIDIUM HIST. 30 GRAMS TUBE TP SCH (09:27)
[2021-03-06] MEDS: AMINO ACIDS/PROTEIN HYDROLYS 30 ML LIQUID.PKT PO SCH (09:27)
[2021-03-06] MEDS: levETIRAcetam 500 MG/5 ML INJECTION VIAL IVPB SCH ×2 (09:27→22:56)
[2021-03-06] MEDS: KCL 10 MEQ IVPB 10 MEQ/100 ML INFUS.BAG IVPB SCH ×2 (13:00→14:00)
[2021-03-06 15:47] LABS: CALCIUM 8.2 mg/dL (8.5-10.1)
[2021-03-06 15:48] LABS: BLOOD UREA NITROGEN 19.9 mg/dL (7-18)
[2021-03-06 15:51] LABS: CREATININE 2.5 mg/dL (0.55-1.3)
[2021-03-06] MEDS: DEXTROSE 5%-WATER - 1,000 ML IV SCH (19:40)
[2021-03-06] MEDS: ATORVASTATIN CA 80 MG TABLET (FP) PO SCH (22:52)
[2021-03-07] MEDS: DEXTROSE 5%-WATER - 1,000 ML IV SCH (03:32)
[2021-03-07] MEDS: INSULIN SLIDING SCALE (NOVOLOG) 1 VIAL SQ SCH ×4 (06:10→22:45)
[2021-03-07] MEDS: TOPIRAMATE 100 MG TABLET PO SCH ×2 (06:10→22:46)
[2021-03-07 07:09] LABS: CHLORIDE 108 mmol/L (98-107); SODIUM 141 mmol/L (136-145)
[2021-03-07 07:12] LABS: ALBUMIN 1.4 g/dl (3.4-5.0); GLUCOSE,RANDOM 90 mg/dL (74-106)
[2021-03-07 07:13] LABS: CO2 25 mmol/L (21-32)
[2021-03-07 07:14] LABS: CREATININE 2.5 mg/dL (0.55-1.3)
[2021-03-07 07:17] LABS: ALK PHOS 61 U/L (45-117); BILIRUBIN,TOTAL 0.4 mg/dL (0.2-1); TOT PROT 4.3 g/dl (6.4-8.2)
[2021-03-07 07:20] LABS: SGOT/AST 13 U/L (15-37)
[2021-03-07 07:21] LABS: ANION GAP 8 MMOL/L (8-16); CALCIUM 6.9 mg/dL (8.5-10.1); SGPT/ALT < 6 U/L (13-61)
[2021-03-07] MEDS ORDERED: POTASSIUM CHLORIDE TABS 20 MEQ TABLET.ER (FP) PO ONE (07:26)
[2021-03-07 10:14] LABS: SODIUM 137 mmol/L (136-145)
[2021-03-07 10:15] LABS: CHLORIDE 101 mmol/L (98-107)
[2021-03-07 10:17] LABS: ANION GAP 7 MMOL/L (8-16); CO2 29 mmol/L (21-32); GLUCOSE,RANDOM 110 mg/dL (74-106)
[2021-03-07 10:19] LABS: SGOT/AST 17 U/L (15-37)
[2021-03-07 10:22] LABS: BILIRUBIN,TOTAL 0.5 mg/dL (0.2-1); TOT PROT 5.4 g/dl (6.4-8.2)
[2021-03-07 10:23] LABS: ALK PHOS 76 U/L (45-117)
[2021-03-07 10:28] LABS: ALBUMIN 1.8 g/dl (3.4-5.0); CALCIUM 8.4 mg/dL (8.5-10.1); SGPT/ALT < 6 U/L (13-61)
[2021-03-07] MEDS: AMINO ACIDS/PROTEIN HYDROLYS 30 ML LIQUID.PKT PO SCH (10:30)
[2021-03-07] MEDS: CARBIDOPA/LEVODOPA 25/100 TABLET (FP) PO SCH ×4 (10:31→22:39)
[2021-03-07] MEDS: levETIRAcetam 500 MG/5 ML INJECTION VIAL IVPB SCH ×2 (10:31→22:39)
[2021-03-07] MEDS: CARVEDILOL 6.25 MG TABLET (FP) PO SCH ×2 (10:31→22:39)
[2021-03-07] MEDS: COLLAGENASE CLOSTRIDIUM HIST. 30 GRAMS TUBE TP SCH (10:31)
[2021-03-07] MEDS ORDERED: SODIUM CHLORIDE 250 ML IV PRN (14:34)
[2021-03-07] MEDS ORDERED: PT OWN MED DRAWER 7, Y5N ONE (22:30)
[2021-03-07] MEDS: ATORVASTATIN CA 80 MG TABLET (FP) PO SCH (22:39)
[2021-03-08] MEDS: INSULIN SLIDING SCALE (NOVOLOG) 1 VIAL SQ SCH ×4 (06:26→21:41)
[2021-03-08] MEDS: TOPIRAMATE 100 MG TABLET PO SCH ×2 (06:26→21:41)
[2021-03-08 07:23] LABS: HEMATOCRIT 25.3 % (32.4-45.2); HEMOGLOBIN 8.1 GM/dL (10.7-15.3); MCH 30.7 pg (25.7-33.7); MCHC 32.2 g/dl (32.0-36.0); MEAN CELL VOLUME 95.2 fl (80-96); MEAN PLT VOLUME 9.3 fl (7.5-11.1); PLATELET COUNT 108 10^3/uL (134-434); RBC 2.66 M/mm3 (3.60-5.2); RDW 18.7 % (11.6-15.6); WHITE BLOOD COUNT 11.7 K/mm3 (4.0-10.0)
[2021-03-08 07:24] LABS: BASO % 0.4 % (0-2.0); EOS % 0.9 % (0-4.5); LYMPH % 8.5 % (8-40); MONO % 5.1 % (3.8-10.2); NEUT % 85.1 % (42.8-82.8)
[2021-03-08] MEDS: CARBIDOPA/LEVODOPA 25/100 TABLET (FP) PO SCH ×4 (09:15→21:41)
[2021-03-08] MEDS: AMINO ACIDS/PROTEIN HYDROLYS 30 ML LIQUID.PKT PO SCH (09:15)
[2021-03-08] MEDS: CARVEDILOL 6.25 MG TABLET (FP) PO SCH ×2 (09:15→21:41)
[2021-03-08 09:40] LABS: ALBUMIN 1.8 g/dl (3.4-5.0); BLOOD UREA NITROGEN 28.8 mg/dL (7-18); CALCIUM 8.6 mg/dL (8.5-10.1)
[2021-03-08 09:44] LABS: CREATININE 3.5 mg/dL (0.55-1.3)
[2021-03-08 09:45] LABS: BILIRUBIN,TOTAL 0.6 mg/dL (0.2-1); TOT PROT 5.2 g/dl (6.4-8.2)
[2021-03-08] MEDS ORDERED: EPOETIN ALFA-EPBX 4,000 UNIT, EPOETIN ALFA-EPBX 3,000 UNIT IVPUSH ONE (12:30)
[2021-03-08] MEDS: levETIRAcetam 500 MG/5 ML INJECTION VIAL IVPB SCH ×2 (12:37→21:43)
[2021-03-08] MEDS ORDERED: EPOETIN ALFA-EPBX 4,000 UNIT/ML VIAL SQ ONE (14:34)
[2021-03-08] MEDS: COLLAGENASE CLOSTRIDIUM HIST. 30 GRAMS TUBE TP SCH (18:42)
[2021-03-08] MEDS: ATORVASTATIN CA 80 MG TABLET (FP) PO SCH (21:41)
[2021-03-08] MEDS: AMINO ACIDS 4.25%/D5W 1,000 ML IV SCH (21:42)
[2021-03-09] MEDS: INSULIN SLIDING SCALE (NOVOLOG) 1 VIAL SQ SCH ×4 (06:09→21:34)
[2021-03-09] MEDS: TOPIRAMATE 100 MG TABLET PO SCH ×2 (06:09→21:31)
[2021-03-09] MEDS: AMINO ACIDS/PROTEIN HYDROLYS 30 ML LIQUID.PKT PO SCH (07:51)
[2021-03-09 08:53] LABS: BASO % 0.7 % (0-2.0); EOS % 1.3 % (0-4.5); HEMOGLOBIN 7.8 GM/dL (10.7-15.3); LYMPH % 13.4 % (8-40); MCH 31.2 pg (25.7-33.7); MCHC 32.6 g/dl (32.0-36.0); MEAN CELL VOLUME 95.6 fl (80-96); MEAN PLT VOLUME 8.9 fl (7.5-11.1); MONO % 7.4 % (3.8-10.2); NEUT % 77.2 % (42.8-82.8); PLATELET COUNT 115 10^3/uL (134-434); RBC 2.51 M/mm3 (3.60-5.2); RDW 18.7 % (11.6-15.6); WHITE BLOOD COUNT 9.3 K/mm3 (4.0-10.0)
[2021-03-09 09:00] LABS: CHLORIDE 105 mmol/L (98-107); SODIUM 141 mmol/L (136-145)
[2021-03-09 09:09] LABS: ALBUMIN 1.9 g/dl (3.4-5.0); ANION GAP 4 MMOL/L (8-16); CALCIUM 8.5 mg/dL (8.5-10.1); CO2 33 mmol/L (21-32); GLUCOSE,RANDOM 89 mg/dL (74-106); SGOT/AST 15 U/L (15-37); SGPT/ALT < 6 U/L (13-61)
[2021-03-09 09:10] LABS: BILIRUBIN,TOTAL 0.4 mg/dL (0.2-1); BLOOD UREA NITROGEN 18.4 mg/dL (7-18); TOT PROT 5.1 g/dl (6.4-8.2)
[2021-03-09 09:12] LABS: ALK PHOS 80 U/L (45-117); CREATININE 2.5 mg/dL (0.55-1.3)
[2021-03-09] MEDS: levETIRAcetam 500 MG/5 ML INJECTION VIAL IVPB SCH ×2 (10:02→21:30)
[2021-03-09] MEDS: CARVEDILOL 6.25 MG TABLET (FP) PO SCH ×2 (10:33→21:31)
[2021-03-09] MEDS: CARBIDOPA/LEVODOPA 25/100 TABLET (FP) PO SCH ×4 (11:16→21:31)
[2021-03-09] MEDS: SODIUM HYPOCHLORITE 0.5% 473 ML- BULK BOTTLE TP SCH (13:16)
[2021-03-09] MEDS ORDERED: SODIUM CHLORIDE 250 ML IV PRN (16:44)
[2021-03-09] MEDS ORDERED: EPOETIN ALFA-EPBX 4,000 UNIT/ML VIAL SQ ONE (16:44)
[2021-03-09] MEDS ORDERED: EPOETIN ALFA EPBX SQ ONE (17:00)
[2021-03-09] MEDS: AMINO ACIDS 4.25%/D5W 1,000 ML IV SCH (21:30)
[2021-03-09] MEDS: ATORVASTATIN CA 80 MG TABLET (FP) PO SCH (21:31)
[2021-03-10] MEDS: INSULIN SLIDING SCALE (NOVOLOG) 1 VIAL SQ SCH ×4 (06:04→23:49)
[2021-03-10] MEDS: TOPIRAMATE 100 MG TABLET PO SCH ×2 (06:04→23:50)
[2021-03-10] MEDS: AMINO ACIDS/PROTEIN HYDROLYS 30 ML LIQUID.PKT PO SCH (09:21)
[2021-03-10] MEDS: CARVEDILOL 6.25 MG TABLET (FP) PO SCH ×2 (09:21→23:49)
[2021-03-10] MEDS: CARBIDOPA/LEVODOPA 25/100 TABLET (FP) PO SCH ×4 (09:21→23:48)
[2021-03-10 09:22] LABS: BASO % 0.8 % (0-2.0); EOS % 1.6 % (0-4.5); HEMOGLOBIN 7.4 GM/dL (10.7-15.3); LYMPH % 18.7 % (8-40); MCH 31.1 pg (25.7-33.7); MCHC 32.3 g/dl (32.0-36.0); MEAN CELL VOLUME 96.5 fl (80-96); MEAN PLT VOLUME 9.7 fl (7.5-11.1); MONO % 7.1 % (3.8-10.2); NEUT % 71.8 % (42.8-82.8); PLATELET COUNT 104 10^3/uL (134-434); RBC 2.39 M/mm3 (3.60-5.2); RDW 18.2 % (11.6-15.6); WHITE BLOOD COUNT 7.1 K/mm3 (4.0-10.0)
[2021-03-10 09:49] LABS: CHLORIDE 104 mmol/L (98-107); SODIUM 139 mmol/L (136-145)
[2021-03-10 10:00] LABS: ALBUMIN 1.7 g/dl (3.4-5.0); ANION GAP 6 MMOL/L (8-16); BLOOD UREA NITROGEN 22.8 mg/dL (7-18); CALCIUM 8.1 mg/dL (8.5-10.1); CO2 29 mmol/L (21-32); GLUCOSE,RANDOM 82 mg/dL (74-106)
[2021-03-10 10:04] LABS: CREATININE 3.2 mg/dL (0.55-1.3); SGOT/AST 12 U/L (15-37)
[2021-03-10 10:06] LABS: ALK PHOS 76 U/L (45-117); BILIRUBIN,TOTAL 0.7 mg/dL (0.2-1)
[2021-03-10 10:20] LABS: SGPT/ALT < 6 U/L (13-61)
[2021-03-10] MEDS ORDERED: EPOETIN ALFA-EPBX 4,000 UNIT, EPOETIN ALFA-EPBX 3,000 UNIT IVPUSH ONE (11:30)
[2021-03-10] MEDS: levETIRAcetam 500 MG/5 ML INJECTION VIAL IVPB SCH ×2 (15:15→23:49)
[2021-03-10] MEDS: SODIUM HYPOCHLORITE 0.5% 473 ML- BULK BOTTLE TP SCH (15:33)
[2021-03-10] MEDS: ENOXAPARIN NA (PORCINE) 30 MG/0.3 ML DISP.SYRIN SQ SCH (17:33)
[2021-03-10] MEDS ORDERED: PT OWN MED DRAWER 7, Y5N ONE (22:59)
[2021-03-10] MEDS: AMINO ACIDS 4.25%/D5W 1,000 ML IV SCH (23:49)
[2021-03-10] MEDS: ATORVASTATIN CA 80 MG TABLET (FP) PO SCH (23:49)
[2021-03-11] MEDS: AMINO ACIDS 4.25%/D5W 1,000 ML IV SCH ×2 (02:51→23:50)
[2021-03-11] MEDS: INSULIN SLIDING SCALE (NOVOLOG) 1 VIAL SQ SCH ×4 (07:04→23:30)
[2021-03-11] MEDS: TOPIRAMATE 100 MG TABLET PO SCH ×2 (07:04→23:49)
[2021-03-11 09:06] LABS: BASO % 0.5 % (0-2.0); EOS % 1.5 % (0-4.5); HEMATOCRIT 24.9 % (32.4-45.2); HEMOGLOBIN 8.4 GM/dL (10.7-15.3); LYMPH % 14.5 % (8-40); MCH 31.4 pg (25.7-33.7); MCHC 33.6 g/dl (32.0-36.0); MEAN CELL VOLUME 93.5 fl (80-96); MEAN PLT VOLUME 9.2 fl (7.5-11.1); NEUT % 75.5 % (42.8-82.8); PLATELET COUNT 98 10^3/uL (134-434); RBC 2.67 M/mm3 (3.60-5.2); RDW 18.5 % (11.6-15.6); WHITE BLOOD COUNT 8.5 K/mm3 (4.0-10.0)
[2021-03-11 09:12] LABS: CHLORIDE 104 mmol/L (98-107); SODIUM 140 mmol/L (136-145)
[2021-03-11 09:19] LABS: CALCIUM 8.2 mg/dL (8.5-10.1)
[2021-03-11 09:20] LABS: ALBUMIN 1.8 g/dl (3.4-5.0); ANION GAP 4 MMOL/L (8-16); BLOOD UREA NITROGEN 16.1 mg/dL (7-18); CO2 32 mmol/L (21-32); GLUCOSE,RANDOM 87 mg/dL (74-106)
[2021-03-11 09:21] LABS: CREATININE 2.1 mg/dL (0.55-1.3); SGPT/ALT < 6 U/L (13-61)
[2021-03-11 09:23] LABS: BILIRUBIN,TOTAL 0.6 mg/dL (0.2-1); SGOT/AST 12 U/L (15-37); TOT PROT 4.8 g/dl (6.4-8.2)
[2021-03-11 09:24] LABS: ALK PHOS 76 U/L (45-117)
[2021-03-11] MEDS: ENOXAPARIN NA (PORCINE) 30 MG/0.3 ML DISP.SYRIN SQ SCH (10:00)
[2021-03-11] MEDS: AMINO ACIDS/PROTEIN HYDROLYS 30 ML LIQUID.PKT PO SCH (10:00)
[2021-03-11] MEDS: SODIUM HYPOCHLORITE 0.5% 473 ML- BULK BOTTLE TP SCH (10:01)
[2021-03-11] MEDS: CARBIDOPA/LEVODOPA 25/100 TABLET (FP) PO SCH ×4 (10:01→23:48)
[2021-03-11] MEDS: CARVEDILOL 6.25 MG TABLET (FP) PO SCH ×2 (10:01→23:47)
[2021-03-11] MEDS: levETIRAcetam 500 MG/5 ML INJECTION VIAL IVPB SCH ×2 (10:01→23:23)
[2021-03-11] MEDS ORDERED: EPOETIN ALFA-EPBX 10,000 UNIT/ML VIAL IVPUSH ONE (18:05)
[2021-03-11] MEDS ORDERED: SODIUM CHLORIDE 250 ML IV PRN (18:05)
[2021-03-11] MEDS ORDERED: PT OWN MED DRAWER 7, Y5N ONE (23:11)
[2021-03-11] MEDS: ATORVASTATIN CA 80 MG TABLET (FP) PO SCH (23:48)
[2021-03-12] MEDS ORDERED: POLYETHYLENE GLYCOL (HEALTHYLAX) 3350 17 GM PACKET PEG PRN ×2 (00:35→10:51)
[2021-03-12] MEDS ORDERED: AMINO ACIDS/PROTEIN HYDROLYS 30 ML LIQUID.PKT PEG SCH (00:37)
[2021-03-12] MEDS: AMINO ACIDS 4.25%/D5W 1,000 ML IV SCH (03:14)
[2021-03-12 05:56] LABS: INR 1.06 (0.83-1.09); PROTHROMBIN TIME (PATIENT) 12.4 SEC (9.7-13.0)
[2021-03-12 05:59] LABS: ACTIVATED PTT 22.5 SECONDS (25.2-36.5)
[2021-03-12 06:16] LABS: CALCIUM 8.4 mg/dL (8.5-10.1)
[2021-03-12 06:17] LABS: BLOOD UREA NITROGEN 21.7 mg/dL (7-18)
[2021-03-12 06:20] LABS: CREATININE 2.8 mg/dL (0.55-1.3)
[2021-03-12 06:27] LABS: BASO % 0.3 % (0-2.0); EOS % 1.9 % (0-4.5); HEMATOCRIT 25.7 % (32.4-45.2); HEMOGLOBIN 8.4 GM/dL (10.7-15.3); LYMPH % 16.1 % (8-40); MCH 30.9 pg (25.7-33.7); MCHC 32.9 g/dl (32.0-36.0); MEAN CELL VOLUME 94.1 fl (80-96); MEAN PLT VOLUME 9.8 fl (7.5-11.1); MONO % 7.8 % (3.8-10.2); NEUT % 73.9 % (42.8-82.8); PLATELET COUNT 96 10^3/uL (134-434); RBC 2.73 M/mm3 (3.60-5.2); RDW 18.3 % (11.6-15.6); WHITE BLOOD COUNT 8.4 K/mm3 (4.0-10.0)
[2021-03-12] MEDS: INSULIN SLIDING SCALE (NOVOLOG) 1 VIAL SQ SCH ×5 (06:29→23:43)
[2021-03-12] MEDS ORDERED: MIDAZOLAM HCL 2 MG/2 ML SINGLE DOSE VIAL ONE ×2 (06:48)
[2021-03-12] MEDS ORDERED: PROPOFOL 20 ML ONE (06:48)
[2021-03-12] MEDS ORDERED: fentaNYL CITRATE 250 MCG/5 ML VIAL ONE ×2 (06:48→06:49)
[2021-03-12] MEDS ORDERED: ROCURONIUM BROMIDE 100 MG/10 ML VIAL ONE (06:48)
[2021-03-12] MEDS ORDERED: TOPIRAMATE 100 MG TABLET NR SCH ×2 (07:00→22:00)
[2021-03-12] MEDS ORDERED: BUPIVACAINE HCL/PF 0.5% (5MG/ML) 10 ML VIAL ONE (07:16)
[2021-03-12] MEDS ORDERED: GENTAMICIN SO4 80 MG/2 ML VIAL ONE (07:16)
[2021-03-12] MEDS ORDERED: LIDOCAINE HCL 1%, 10 MG/ML (20ML VIAL) ONE (07:16)
[2021-03-12] MEDS ORDERED: BUPIVACAINE HCL/PF 0.25% (2.5MG/ML) 10 ML VIAL ONE (07:18)
[2021-03-12] MEDS ORDERED: ceFAZolin 2 GRAM PREMIX BAG IVPB ONE (08:01)
[2021-03-12] MEDS ORDERED: ePHEDrine SULFATE 50 MG/1 ML AMPULE ONE (08:45)
[2021-03-12] MEDS ORDERED: ceFAZolin SODIUM 1 GM VIAL ONE (08:45)
[2021-03-12] MEDS ORDERED: CLINDAMYCIN PHOSPHATE 600 MG/4 ML VIAL ONE (08:45)
[2021-03-12] MEDS ORDERED: ONDANSETRON 4 MG/2 ML VIAL ONE (08:45)
[2021-03-12] MEDS ORDERED: DEXAMETHASONE SOD PHOSPHATE 4 MG/1 ML VIAL ONE (08:45)
[2021-03-12] MEDS ORDERED: BENZOIN/ALOE VERA/STORAX/TOLU 58 ML BOTTLE ONE (08:48)
[2021-03-12] MEDS ORDERED: LIDOCAINE 1%/EPI 1:100000 (20 ML MULTI DOSE VIAL) ONE (09:05)
[2021-03-12] MEDS ORDERED: GLYCOPYRROLATE 0.2 MG/1 ML VIAL ONE (09:53)
[2021-03-12] MEDS ORDERED: NEOSTIGMINE METHYLSULFATE 0.5 MG/ML - 10 ML MDV ONE (09:53)
[2021-03-12] MEDS ORDERED: CARVEDILOL 6.25 MG TABLET (FP) PEG SCH (10:00)
[2021-03-12] MEDS ORDERED: CLOPIDOGREL BISULFATE 75 MG TABLET (FP) PEG SCH (10:00)
[2021-03-12] MEDS ORDERED: buPROPion HCL 75 MG TABLET PEG SCH (10:00)
[2021-03-12] MEDS ORDERED: CARBIDOPA/LEVODOPA 25/100 TABLET (FP) PEG SCH ×2 (10:00→14:00)
[2021-03-12] MEDS: levETIRAcetam 500 MG/5 ML INJECTION VIAL IVPB SCH ×3 (10:03→22:45)
[2021-03-12] MEDS: SODIUM HYPOCHLORITE 0.5% 473 ML- BULK BOTTLE TP SCH (10:03)
[2021-03-12] MEDS ORDERED: LIDOCAINE 1%/EPI 1:100000 (20 ML MULTI DOSE VIAL) IJ ONE (10:04)
[2021-03-12] MEDS ORDERED: BUPIVACAINE HCL/PF 0.5% (5MG/ML) 10 ML VIAL IJ ONE (10:04)
[2021-03-12] MEDS ORDERED: ONDANSETRON 4 MG/2 ML VIAL IVPUSH PRN (10:43)
[2021-03-12] MEDS ORDERED: EPOETIN ALFA-EPBX 10,000 UNIT/ML VIAL IVPUSH ONE (10:51)
[2021-03-12] MEDS ORDERED: SODIUM CHLORIDE 250 ML IV PRN (10:51)
[2021-03-12] MEDS ORDERED: ACETAMINOPHEN 650 MG/20.3 ML ORAL SOLUTION (CUPS) PEG PRN ×2 (10:51)
[2021-03-12] MEDS ORDERED: EPOETIN ALFA-EPBX 4,000 UNIT/ML VIAL SQ ONE ×2 (10:51)
[2021-03-12] MEDS ORDERED: POLYETHYLENE GLYCOL (HEALTHYLAX) 3350 17 GM PACKET NGT PRN (13:47)
[2021-03-12] MEDS ORDERED: PT OWN MED DRAWER 7, Y5N ONE ×2 (14:26→22:42)
[2021-03-12] MEDS: CARBIDOPA/LEVODOPA 25/100 TABLET (FP) NGT SCH ×3 (14:28→22:56)
[2021-03-12] MEDS: buPROPion HCL 75 MG TABLET NGT SCH ×2 (14:28→22:56)
[2021-03-12] MEDS: CARVEDILOL 6.25 MG TABLET (FP) NGT SCH ×2 (14:29→22:56)
[2021-03-12] MEDS ORDERED: AMINO ACIDS/PROTEIN HYDROLYS 30 ML LIQUID.PKT NGT SCH (14:30)
[2021-03-12] MEDS: AMINO ACIDS/PROTEIN HYDROLYS 30 ML LIQUID.PKT NGT SCH (19:20)
[2021-03-12] MEDS: ACETAMINOPHEN 650 MG/20.3 ML ORAL SOLUTION (CUPS) NGT PRN (19:21)
[2021-03-12] MEDS ORDERED: AMINO ACIDS 4.25%/D5W 1,000 ML IV SCH (21:45)
[2021-03-12] MEDS ORDERED: buPROPion HCL 75 MG TABLET NGT SCH (22:00)
[2021-03-12] MEDS ORDERED: ATORVASTATIN CA 80 MG TABLET (FP) PEG SCH (22:00)
[2021-03-12] MEDS ORDERED: levETIRAcetam 500 MG/5 ML INJECTION VIAL IVPB SCH (22:00)
[2021-03-12] MEDS ORDERED: CARVEDILOL 6.25 MG TABLET (FP) NGT SCH (22:00)
[2021-03-12] MEDS: ATORVASTATIN CA 80 MG TABLET (FP) NGT SCH (22:56)
[2021-03-13] MEDS: TOPIRAMATE 100 MG TABLET NR SCH ×3 (00:24→22:21)
[2021-03-13] MEDS: INSULIN SLIDING SCALE (NOVOLOG) 1 VIAL SQ SCH ×4 (06:18→22:49)
[2021-03-13] MEDS ORDERED: PT OWN MED DRAWER 7, Y5N ONE ×3 (07:57→21:58)
[2021-03-13] MEDS ORDERED: AMINO ACIDS/PROTEIN HYDROLYS 30 ML LIQUID.PKT NGT SCH (08:00)
[2021-03-13] MEDS ORDERED: ZINC SULFATE 220 MG CAPSULE (FP) GT SCH (10:00)
[2021-03-13] MEDS ORDERED: VITAMIN B COMP W-C 1 EA TABLET (NEPHRO-VITE) PO SCH (10:00)
[2021-03-13] MEDS ORDERED: CLOPIDOGREL BISULFATE 75 MG TABLET (FP) NGT SCH (10:00)
[2021-03-13] MEDS ORDERED: SODIUM HYPOCHLORITE 0.5% 473 ML- BULK BOTTLE TP SCH (10:00)
[2021-03-13] MEDS: CARBIDOPA/LEVODOPA 25/100 TABLET (FP) NGT SCH ×4 (13:51→22:20)
[2021-03-13] MEDS: ENOXAPARIN NA (PORCINE) 30 MG/0.3 ML DISP.SYRIN SQ SCH (13:51)
[2021-03-13] MEDS: VITAMIN B COMP W-C 1 EA TABLET (NEPHRO-VITE) PO SCH (13:51)
[2021-03-13] MEDS: ZINC SULFATE 220 MG CAPSULE (FP) NGT SCH (13:51)
[2021-03-13] MEDS: CARVEDILOL 6.25 MG TABLET (FP) NGT SCH ×2 (13:52→22:31)
[2021-03-13] MEDS: levETIRAcetam 500 MG/5 ML INJECTION VIAL IVPB SCH ×2 (13:52→22:08)
[2021-03-13] MEDS: ACETAMINOPHEN 650 MG/20.3 ML ORAL SOLUTION (CUPS) NGT PRN (13:57)
[2021-03-13] MEDS: buPROPion HCL 75 MG TABLET NGT SCH ×2 (14:14→22:21)
[2021-03-13] MEDS: AMINO ACIDS/PROTEIN HYDROLYS 30 ML LIQUID.PKT NGT SCH ×2 (14:15→18:18)
[2021-03-13] MEDS: ATORVASTATIN CA 80 MG TABLET (FP) NGT SCH (22:20)
[2021-03-14] MEDS: ACETAMINOPHEN 650 MG/20.3 ML ORAL SOLUTION (CUPS) NGT PRN ×2 (00:04→17:34)
[2021-03-14] MEDS: INSULIN SLIDING SCALE (NOVOLOG) 1 VIAL SQ SCH ×4 (06:16→21:44)
[2021-03-14] MEDS: TOPIRAMATE 100 MG TABLET NR SCH ×2 (06:16→21:38)
[2021-03-14] MEDS ORDERED: PT OWN MED DRAWER 7, Y5N ONE (08:23)
[2021-03-14] MEDS: CARVEDILOL 6.25 MG TABLET (FP) NGT SCH ×2 (09:51→21:37)
[2021-03-14] MEDS: ZINC SULFATE 220 MG CAPSULE (FP) NGT SCH (09:51)
[2021-03-14] MEDS: AMINO ACIDS/PROTEIN HYDROLYS 30 ML LIQUID.PKT NGT SCH ×2 (09:51→17:34)
[2021-03-14] MEDS: VITAMIN B COMP W-C 1 EA TABLET (NEPHRO-VITE) PO SCH (09:51)
[2021-03-14] MEDS: levETIRAcetam 500 MG/5 ML INJECTION VIAL IVPB SCH ×2 (09:51→21:38)
[2021-03-14] MEDS: ENOXAPARIN NA (PORCINE) 30 MG/0.3 ML DISP.SYRIN SQ SCH (09:52)
[2021-03-14] MEDS: CARBIDOPA/LEVODOPA 25/100 TABLET (FP) NGT SCH ×4 (09:54→21:37)
[2021-03-14] MEDS: buPROPion HCL 75 MG TABLET NGT SCH ×2 (09:54→21:38)
[2021-03-14] MEDS ORDERED: SODIUM CHLORIDE 250 ML IV PRN (15:11)
[2021-03-14] MEDS: ATORVASTATIN CA 80 MG TABLET (FP) NGT SCH (21:37)
[2021-03-15] MEDS: TOPIRAMATE 100 MG TABLET NR SCH ×2 (06:10→21:41)
[2021-03-15] MEDS: INSULIN SLIDING SCALE (NOVOLOG) 1 VIAL SQ SCH ×4 (06:10→23:12)
[2021-03-15] MEDS: levETIRAcetam 500 MG/5 ML INJECTION VIAL IVPB SCH ×2 (09:37→21:28)
[2021-03-15] MEDS: ENOXAPARIN NA (PORCINE) 30 MG/0.3 ML DISP.SYRIN SQ SCH (09:38)
[2021-03-15] MEDS: VITAMIN B COMP W-C 1 EA TABLET (NEPHRO-VITE) PO SCH (09:38)
[2021-03-15] MEDS: AMINO ACIDS/PROTEIN HYDROLYS 30 ML LIQUID.PKT NGT SCH ×2 (09:38→17:58)
[2021-03-15] MEDS: buPROPion HCL 75 MG TABLET NGT SCH ×2 (09:38→21:40)
[2021-03-15] MEDS: ZINC SULFATE 220 MG CAPSULE (FP) NGT SCH (09:38)
[2021-03-15] MEDS: CARBIDOPA/LEVODOPA 25/100 TABLET (FP) NGT SCH ×4 (09:54→21:28)
[2021-03-15] MEDS ORDERED: EPOETIN ALFA-EPBX 10,000 UNIT/ML VIAL SQ ONE (10:00)
[2021-03-15] MEDS: CARVEDILOL 6.25 MG TABLET (FP) NGT SCH ×2 (10:57→21:28)
[2021-03-15] MEDS: ACETAMINOPHEN 1000 MG/100 ML BAG IVPB PRN (10:57)
[2021-03-15] MEDS: DEXTROSE 5%-0.45% SALINE 1,000 ML IV SCH (18:56)
[2021-03-15] MEDS: ATORVASTATIN CA 80 MG TABLET (FP) NGT SCH (21:28)
[2021-03-16] MEDS: TOPIRAMATE 100 MG TABLET NR SCH ×2 (06:45→23:00)
[2021-03-16] MEDS: INSULIN SLIDING SCALE (NOVOLOG) 1 VIAL SQ SCH ×4 (06:45→23:15)
[2021-03-16] MEDS: ACETAMINOPHEN 1000 MG/100 ML BAG IVPB PRN (06:52)
[2021-03-16] MEDS: AMINO ACIDS/PROTEIN HYDROLYS 30 ML LIQUID.PKT NGT SCH ×2 (08:50→17:00)
[2021-03-16 09:38] LABS: HEMOGLOBIN 8.5 GM/dL (10.7-15.3); MCH 30.8 pg (25.7-33.7); MCHC 32.7 g/dl (32.0-36.0); MEAN CELL VOLUME 94.4 fl (80-96); MEAN PLT VOLUME 10.5 fl (7.5-11.1); PLATELET COUNT 95 10^3/uL (134-434); RBC 2.76 M/mm3 (3.60-5.2); RDW 18.3 % (11.6-15.6); WHITE BLOOD COUNT 15.4 K/mm3 (4.0-10.0)
[2021-03-16] MEDS: VITAMIN B COMP W-C 1 EA TABLET (NEPHRO-VITE) PO SCH (10:00)
[2021-03-16] MEDS: CARVEDILOL 6.25 MG TABLET (FP) NGT SCH ×2 (10:00→22:54)
[2021-03-16] MEDS: CARBIDOPA/LEVODOPA 25/100 TABLET (FP) NGT SCH ×5 (10:00→22:53)
[2021-03-16] MEDS: buPROPion HCL 75 MG TABLET NGT SCH ×2 (10:00→22:54)
[2021-03-16] MEDS: ZINC SULFATE 220 MG CAPSULE (FP) NGT SCH (11:00)
[2021-03-16] MEDS ORDERED: SODIUM CHLORIDE 250 ML IV PRN (11:22)
[2021-03-16] MEDS ORDERED: GLUCAGON 1 MG KIT IVPUSH ONE (11:30)
[2021-03-16] MEDS: SODIUM HYPOCHLORITE 0.5% 473 ML- BULK BOTTLE TP SCH (14:00)
[2021-03-16] MEDS: ENOXAPARIN NA (PORCINE) 30 MG/0.3 ML DISP.SYRIN SQ SCH (16:27)
[2021-03-16] MEDS: DEXTROSE 5%-0.45% SALINE 1,000 ML IV SCH ×2 (16:29→17:34)
[2021-03-16] MEDS: levETIRAcetam 500 MG/5 ML INJECTION VIAL IVPB SCH ×2 (16:57→22:53)
[2021-03-16] MEDS: ATORVASTATIN CA 80 MG TABLET (FP) NGT SCH (22:53)
[2021-03-17] MEDS: TOPIRAMATE 100 MG TABLET NR SCH (06:03)
[2021-03-17] MEDS: INSULIN SLIDING SCALE (NOVOLOG) 1 VIAL SQ SCH ×4 (06:15→22:27)
[2021-03-17 08:30] LABS: HEMATOCRIT 25.2 % (32.4-45.2); HEMOGLOBIN 8.1 GM/dL (10.7-15.3); MCH 30.2 pg (25.7-33.7); MCHC 32.3 g/dl (32.0-36.0); MEAN CELL VOLUME 93.6 fl (80-96); MEAN PLT VOLUME 10.1 fl (7.5-11.1); PLATELET COUNT 104 10^3/uL (134-434); RBC 2.69 M/mm3 (3.60-5.2); RDW 18.3 % (11.6-15.6)
[2021-03-17 08:31] LABS: CHLORIDE 105 mmol/L (98-107); SODIUM 145 mmol/L (136-145)
[2021-03-17 08:36] LABS: ALBUMIN 1.9 g/dl (3.4-5.0); CALCIUM 8.8 mg/dL (8.5-10.1); GLUCOSE,RANDOM 98 mg/dL (74-106)
[2021-03-17 08:37] LABS: BLOOD UREA NITROGEN 25.7 mg/dL (7-18); CO2 33 mmol/L (21-32)
[2021-03-17 08:40] LABS: CREATININE 2.9 mg/dL (0.55-1.3); SGOT/AST 11 U/L (15-37)
[2021-03-17 08:41] LABS: BILIRUBIN,TOTAL 0.4 mg/dL (0.2-1)
[2021-03-17 08:42] LABS: TOT PROT 5.2 g/dl (6.4-8.2)
[2021-03-17 08:43] LABS: ALK PHOS 85 U/L (45-117)
[2021-03-17 08:44] LABS: ANION GAP 7 MMOL/L (8-16); SGPT/ALT < 6 U/L (13-61)
[2021-03-17] MEDS ORDERED: EPOETIN ALFA-EPBX 10,000 UNIT/ML VIAL IVPUSH ONE (10:15)
[2021-03-17] MEDS ORDERED: PT OWN MED DRAWER 7, Y5N ONE ×2 (10:54→21:23)
[2021-03-17] MEDS: KCL 10 MEQ IVPB 10 MEQ/100 ML INFUS.BAG IVPB SCH ×2 (12:11→14:59)
[2021-03-17] MEDS: CARVEDILOL 6.25 MG TABLET (FP) NGT SCH ×2 (14:55→15:14)
[2021-03-17] MEDS: AMINO ACIDS/PROTEIN HYDROLYS 30 ML LIQUID.PKT NGT SCH (14:55)
[2021-03-17] MEDS: buPROPion HCL 75 MG TABLET NGT SCH ×2 (15:00→15:17)
[2021-03-17] MEDS: ENOXAPARIN NA (PORCINE) 30 MG/0.3 ML DISP.SYRIN SQ SCH (15:14)
[2021-03-17] MEDS: ZINC SULFATE 220 MG CAPSULE (FP) NGT SCH (15:14)
[2021-03-17] MEDS: CARBIDOPA/LEVODOPA 25/100 TABLET (FP) NGT SCH ×3 (15:14→15:48)
[2021-03-17] MEDS: VITAMIN B COMP W-C 1 EA TABLET (NEPHRO-VITE) PO SCH (15:14)
[2021-03-17] MEDS: levETIRAcetam 500 MG/5 ML INJECTION VIAL IVPB SCH ×2 (15:14→15:57)
[2021-03-17] MEDS: SODIUM HYPOCHLORITE 0.5% 473 ML- BULK BOTTLE TP SCH (15:15)
[2021-03-17] MEDS: ACETAMINOPHEN 650 MG/20.3 ML ORAL SOLUTION (CUPS) NGT PRN (15:30)
[2021-03-17] MEDS ORDERED: TOPIRAMATE 100 MG TABLET GT SCH ×2 (17:03→22:00)
[2021-03-17] MEDS ORDERED: POLYETHYLENE GLYCOL (HEALTHYLAX) 3350 17 GM PACKET GT PRN (17:07)
[2021-03-17] MEDS ORDERED: ACETAMINOPHEN 650 MG/20.3 ML ORAL SOLUTION (CUPS) GT PRN (17:08)
[2021-03-17] MEDS: CARBIDOPA/LEVODOPA 25/100 TABLET (FP) GT SCH ×2 (18:20→22:26)
[2021-03-17] MEDS: AMINO ACIDS/PROTEIN HYDROLYS 30 ML LIQUID.PKT GT SCH (18:20)
[2021-03-17] MEDS ORDERED: QUEtiapine FUMARATE 50 MG TABLET ONE (21:22)
[2021-03-17] MEDS ORDERED: QUEtiapine FUMARATE 100 MG TABLET (FP) GT SCH (22:00)
[2021-03-17] MEDS ORDERED: ATORVASTATIN CA 80 MG TABLET (FP) GT SCH (22:00)
[2021-03-17] MEDS: buPROPion HCL 75 MG TABLET GT SCH (22:25)
[2021-03-17] MEDS: levETIRAcetam 500 MG/5 ML ORAL SOLUTION (UNIT-DOSE CUPS) GT SCH (22:26)
[2021-03-17] MEDS: hydrALAZINE HCL 25 MG TABLET (FP) GT SCH (22:26)
[2021-03-17] MEDS: CARVEDILOL 6.25 MG TABLET (FP) GT SCH (22:26)
[2021-03-18] MEDS ORDERED: PT OWN MED DRAWER 7, Y5N ONE ×3 (06:33→18:02)
[2021-03-18] MEDS: INSULIN SLIDING SCALE (NOVOLOG) 1 VIAL SQ SCH ×4 (06:35→23:33)
[2021-03-18] MEDS ORDERED: PROPOFOL 20 ML ONE ×3 (07:26→09:19)
[2021-03-18] MEDS ORDERED: ROCURONIUM BROMIDE 100 MG/10 ML VIAL ONE (07:26)
[2021-03-18] MEDS ORDERED: fentaNYL CITRATE 250 MCG/5 ML VIAL ONE (07:44)
[2021-03-18] MEDS ORDERED: MIDAZOLAM HCL 2 MG/2 ML SINGLE DOSE VIAL ONE (07:46)
[2021-03-18] MEDS ORDERED: LIDOCAINE 1%/EPI 1:100000 (20 ML MULTI DOSE VIAL) ONE (08:13)
[2021-03-18 08:59] LABS: CHLORIDE 104 mmol/L (98-107); SODIUM 143 mmol/L (136-145)
[2021-03-18 09:02] LABS: CALCIUM 8.7 mg/dL (8.5-10.1)
[2021-03-18 09:03] LABS: BLOOD UREA NITROGEN 14.4 mg/dL (7-18); CO2 33 mmol/L (21-32); GLUCOSE,RANDOM 93 mg/dL (74-106)
[2021-03-18 09:06] LABS: ANION GAP 6 MMOL/L (8-16); CREATININE 2.3 mg/dL (0.55-1.3)
[2021-03-18] MEDS: AMINO ACIDS/PROTEIN HYDROLYS 30 ML LIQUID.PKT GT SCH ×2 (09:13→18:15)
[2021-03-18] MEDS ORDERED: KETAMINE HCL 200 MG/20 ML VIAL ONE (09:19)
[2021-03-18] MEDS ORDERED: LIDOCAINE 1%/EPI 1:100000 (20 ML MULTI DOSE VIAL) IJ ONE (10:00)
[2021-03-18] MEDS ORDERED: CLOPIDOGREL BISULFATE 75 MG TABLET (FP) GT SCH (10:00)
[2021-03-18] MEDS ORDERED: ZINC SULFATE 220 MG CAPSULE (FP) GT SCH (10:00)
[2021-03-18] MEDS ORDERED: BUPIVACAINE HCL/PF 0.5% (5MG/ML) 10 ML VIAL IJ ONE (10:00)
[2021-03-18] MEDS ORDERED: amLODIPine BESYLATE 10 MG TABLET (FP) GT SCH (10:00)
[2021-03-18] MEDS ORDERED: NEOSTIGMINE METHYLSULFATE 0.5 MG/ML - 10 ML MDV ONE (10:29)
[2021-03-18] MEDS ORDERED: GLYCOPYRROLATE 0.2 MG/1 ML VIAL ONE (10:30)
[2021-03-18] MEDS ORDERED: LIDOCAINE HCL/PF 2% SDV 5ML VIAL ONE (10:30)
[2021-03-18] MEDS ORDERED: ONDANSETRON 4 MG/2 ML VIAL ONE (10:30)
[2021-03-18] MEDS ORDERED: SODIUM CHLORIDE 250 ML IV PRN (11:24)
[2021-03-18] MEDS ORDERED: POLYETHYLENE GLYCOL (HEALTHYLAX) 3350 17 GM PACKET GT PRN (11:54)
[2021-03-18] MEDS: hydrALAZINE HCL 25 MG TABLET (FP) GT SCH ×2 (12:25→23:18)
[2021-03-18] MEDS: levETIRAcetam 500 MG/5 ML ORAL SOLUTION (UNIT-DOSE CUPS) GT SCH ×2 (12:26→23:19)
[2021-03-18] MEDS: SODIUM HYPOCHLORITE 0.5% 473 ML- BULK BOTTLE TP SCH (12:26)
[2021-03-18] MEDS: ENOXAPARIN NA (PORCINE) 30 MG/0.3 ML DISP.SYRIN SQ SCH ×2 (12:26→15:43)
[2021-03-18] MEDS: CARVEDILOL 6.25 MG TABLET (FP) GT SCH ×2 (12:26→23:18)
[2021-03-18] MEDS: VITAMIN B COMP W-C 1 EA TABLET (NEPHRO-VITE) PO SCH (12:27)
[2021-03-18] MEDS: CARBIDOPA/LEVODOPA 25/100 TABLET (FP) GT SCH ×4 (12:27→23:18)
[2021-03-18] MEDS: buPROPion HCL 75 MG TABLET GT SCH ×2 (12:28→23:20)
[2021-03-18] MEDS ORDERED: POTASSIUM CHLORIDE ORAL LIQUID 20 MEQ/15 ML PO ONE (12:33)
[2021-03-18] MEDS: CLOPIDOGREL BISULFATE 75 MG TABLET (FP) GT SCH (15:41)
[2021-03-18] MEDS: amLODIPine BESYLATE 10 MG TABLET (FP) GT SCH (15:50)
[2021-03-18] MEDS ORDERED: QUEtiapine FUMARATE 50 MG TABLET ONE (21:59)
[2021-03-18] MEDS: QUEtiapine FUMARATE 100 MG TABLET (FP) GT SCH (23:18)
[2021-03-18] MEDS: ATORVASTATIN CA 80 MG TABLET (FP) GT SCH (23:18)
[2021-03-18] MEDS: TOPIRAMATE 100 MG TABLET GT SCH (23:19)
[2021-03-18] MEDS: ACETAMINOPHEN 650 MG/20.3 ML ORAL SOLUTION (CUPS) GT PRN (23:21)
[2021-03-19] MEDS: TOPIRAMATE 100 MG TABLET GT SCH ×2 (07:03→21:16)
[2021-03-19] MEDS: INSULIN SLIDING SCALE (NOVOLOG) 1 VIAL SQ SCH ×4 (07:04→21:53)
[2021-03-19] MEDS ORDERED: EPOETIN ALFA-EPBX 10,000 UNIT/ML VIAL IVPUSH ONE (07:30)
[2021-03-19] MEDS: hydrALAZINE HCL 25 MG TABLET (FP) GT SCH ×2 (12:30→21:53)
[2021-03-19] MEDS: AMINO ACIDS/PROTEIN HYDROLYS 30 ML LIQUID.PKT GT SCH (12:30)
[2021-03-19] MEDS: CARVEDILOL 6.25 MG TABLET (FP) GT SCH ×2 (12:30→21:53)
[2021-03-19] MEDS: SODIUM HYPOCHLORITE 0.5% 473 ML- BULK BOTTLE TP SCH (12:31)
[2021-03-19] MEDS: levETIRAcetam 500 MG/5 ML ORAL SOLUTION (UNIT-DOSE CUPS) GT SCH ×2 (12:32→21:15)
[2021-03-19] MEDS: ENOXAPARIN NA (PORCINE) 30 MG/0.3 ML DISP.SYRIN SQ SCH (12:34)
[2021-03-19] MEDS: amLODIPine BESYLATE 10 MG TABLET (FP) GT SCH (12:34)
[2021-03-19] MEDS: CLOPIDOGREL BISULFATE 75 MG TABLET (FP) GT SCH (12:34)
[2021-03-19] MEDS: VITAMIN B COMP W-C 1 EA TABLET (NEPHRO-VITE) PO SCH (12:34)
[2021-03-19] MEDS: ZINC SULFATE 220 MG CAPSULE (FP) GT SCH (12:34)
[2021-03-19] MEDS: CARBIDOPA/LEVODOPA 25/100 TABLET (FP) GT SCH ×3 (12:35→21:15)
[2021-03-19] MEDS: buPROPion HCL 75 MG TABLET GT SCH ×2 (12:35→21:16)
[2021-03-19 18:00] LABS: HEMATOCRIT 25.5 % (32.4-45.2); HEMOGLOBIN 8.2 GM/dL (10.7-15.3); MCHC 32.1 g/dl (32.0-36.0); MEAN CELL VOLUME 96.6 fl (80-96); MEAN PLT VOLUME 9.9 fl (7.5-11.1); PLATELET COUNT 153 10^3/uL (134-434); RBC 2.65 M/mm3 (3.60-5.2); RDW 18.8 % (11.6-15.6); WHITE BLOOD COUNT 10.4 K/mm3 (4.0-10.0)
[2021-03-19 18:19] LABS: CALCIUM 8.6 mg/dL (8.5-10.1)
[2021-03-19 18:20] LABS: BLOOD UREA NITROGEN 13.3 mg/dL (7-18)
[2021-03-19 18:23] LABS: CREATININE 1.8 mg/dL (0.55-1.3)
[2021-03-19] MEDS ORDERED: QUEtiapine FUMARATE 50 MG TABLET ONE (19:25)
[2021-03-19] MEDS: QUEtiapine FUMARATE 100 MG TABLET (FP) GT SCH (21:14)
[2021-03-19] MEDS: ATORVASTATIN CA 80 MG TABLET (FP) GT SCH (21:15)
[2021-03-19] MEDS: ACETAMINOPHEN 650 MG/20.3 ML ORAL SOLUTION (CUPS) GT PRN (21:50)
[2021-03-20] MEDS ORDERED: PT OWN MED DRAWER 7, Y5N ONE ×2 (06:37→10:04)
[2021-03-20] MEDS: TOPIRAMATE 100 MG TABLET GT SCH ×2 (07:09→22:44)
[2021-03-20] MEDS: INSULIN SLIDING SCALE (NOVOLOG) 1 VIAL SQ SCH ×4 (07:10→23:06)
[2021-03-20] MEDS: hydrALAZINE HCL 25 MG TABLET (FP) GT SCH ×2 (09:57→22:42)
[2021-03-20] MEDS: amLODIPine BESYLATE 10 MG TABLET (FP) GT SCH (09:57)
[2021-03-20] MEDS: ENOXAPARIN NA (PORCINE) 30 MG/0.3 ML DISP.SYRIN SQ SCH (09:57)
[2021-03-20] MEDS: CLOPIDOGREL BISULFATE 75 MG TABLET (FP) GT SCH (09:57)
[2021-03-20] MEDS: CARVEDILOL 6.25 MG TABLET (FP) GT SCH ×2 (09:57→22:43)
[2021-03-20] MEDS: VITAMIN B COMP W-C 1 EA TABLET (NEPHRO-VITE) PO SCH (09:57)
[2021-03-20] MEDS: AMINO ACIDS/PROTEIN HYDROLYS 30 ML LIQUID.PKT GT SCH ×2 (09:58→18:58)
[2021-03-20] MEDS: CARBIDOPA/LEVODOPA 25/100 TABLET (FP) GT SCH ×4 (09:58→22:42)
[2021-03-20] MEDS: ZINC SULFATE 220 MG CAPSULE (FP) GT SCH (09:58)
[2021-03-20] MEDS: ACETAMINOPHEN 650 MG/20.3 ML ORAL SOLUTION (CUPS) GT PRN ×2 (10:03→22:40)
[2021-03-20] MEDS: levETIRAcetam 500 MG/5 ML ORAL SOLUTION (UNIT-DOSE CUPS) GT SCH ×2 (10:07→22:41)
[2021-03-20] MEDS: buPROPion HCL 75 MG TABLET GT SCH ×2 (10:07→22:41)
[2021-03-20] MEDS: SODIUM HYPOCHLORITE 0.5% 473 ML- BULK BOTTLE TP SCH (10:08)
[2021-03-20] MEDS ORDERED: QUEtiapine FUMARATE 50 MG TABLET ONE (22:34)
[2021-03-20] MEDS: QUEtiapine FUMARATE 100 MG TABLET (FP) GT SCH (22:43)
[2021-03-20] MEDS: ATORVASTATIN CA 80 MG TABLET (FP) GT SCH (22:43)
[2021-03-21] MEDS: INSULIN SLIDING SCALE (NOVOLOG) 1 VIAL SQ SCH ×4 (06:27→22:15)
[2021-03-21] MEDS: TOPIRAMATE 100 MG TABLET GT SCH ×2 (06:27→23:15)
[2021-03-21] MEDS: ACETAMINOPHEN 650 MG/20.3 ML ORAL SOLUTION (CUPS) GT PRN (06:30)
[2021-03-21] MEDS ORDERED: PT OWN MED DRAWER 7, Y5N ONE ×3 (10:40→23:40)
[2021-03-21] MEDS: CLOPIDOGREL BISULFATE 75 MG TABLET (FP) GT SCH (10:46)
[2021-03-21] MEDS: VITAMIN B COMP W-C 1 EA TABLET (NEPHRO-VITE) PO SCH (10:46)
[2021-03-21] MEDS: hydrALAZINE HCL 25 MG TABLET (FP) GT SCH ×2 (10:47→23:31)
[2021-03-21] MEDS: ZINC SULFATE 220 MG CAPSULE (FP) GT SCH (10:47)
[2021-03-21] MEDS: CARVEDILOL 6.25 MG TABLET (FP) GT SCH ×2 (10:48→23:29)
[2021-03-21] MEDS: levETIRAcetam 500 MG/5 ML ORAL SOLUTION (UNIT-DOSE CUPS) GT SCH ×2 (10:48→23:30)
[2021-03-21] MEDS: amLODIPine BESYLATE 10 MG TABLET (FP) GT SCH (10:48)
[2021-03-21] MEDS: ENOXAPARIN NA (PORCINE) 30 MG/0.3 ML DISP.SYRIN SQ SCH (10:51)
[2021-03-21] MEDS: buPROPion HCL 75 MG TABLET GT SCH ×2 (10:54→23:30)
[2021-03-21] MEDS: CARBIDOPA/LEVODOPA 25/100 TABLET (FP) GT SCH ×5 (10:54→23:18)
[2021-03-21] MEDS: AMINO ACIDS/PROTEIN HYDROLYS 30 ML LIQUID.PKT GT SCH ×3 (10:55→17:45)
[2021-03-21] MEDS: SODIUM HYPOCHLORITE 0.5% 473 ML- BULK BOTTLE TP SCH (13:30)
[2021-03-21] MEDS ORDERED: PCA PUMP NR ONE (19:28)
[2021-03-21] MEDS: ATORVASTATIN CA 80 MG TABLET (FP) GT SCH (23:17)
[2021-03-21] MEDS: QUEtiapine FUMARATE 100 MG TABLET (FP) GT SCH (23:31)
[2021-03-21] MEDS ORDERED: QUEtiapine FUMARATE 50 MG TABLET ONE (23:38)
[2021-03-22] MEDS: TOPIRAMATE 100 MG TABLET GT SCH ×2 (06:35→23:09)
[2021-03-22] MEDS: INSULIN SLIDING SCALE (NOVOLOG) 1 VIAL SQ SCH ×3 (07:03→16:44)
[2021-03-22] MEDS: ENOXAPARIN NA (PORCINE) 30 MG/0.3 ML DISP.SYRIN SQ SCH (09:53)
[2021-03-22] MEDS: AMINO ACIDS/PROTEIN HYDROLYS 30 ML LIQUID.PKT GT SCH ×2 (09:54→16:50)
[2021-03-22] MEDS: CARVEDILOL 6.25 MG TABLET (FP) GT SCH ×2 (09:54→23:09)
[2021-03-22] MEDS: hydrALAZINE HCL 25 MG TABLET (FP) GT SCH ×2 (09:54→23:09)
[2021-03-22] MEDS: ZINC SULFATE 220 MG CAPSULE (FP) GT SCH (09:54)
[2021-03-22] MEDS: CARBIDOPA/LEVODOPA 25/100 TABLET (FP) GT SCH ×4 (09:55→23:09)
[2021-03-22] MEDS: CLOPIDOGREL BISULFATE 75 MG TABLET (FP) GT SCH (09:55)
[2021-03-22] MEDS: amLODIPine BESYLATE 10 MG TABLET (FP) GT SCH (09:55)
[2021-03-22] MEDS: VITAMIN B COMP W-C 1 EA TABLET (NEPHRO-VITE) PO SCH (09:55)
[2021-03-22] MEDS: SODIUM HYPOCHLORITE 0.5% 473 ML- BULK BOTTLE TP SCH (09:56)
[2021-03-22] MEDS: levETIRAcetam 500 MG/5 ML ORAL SOLUTION (UNIT-DOSE CUPS) GT SCH ×2 (09:57→23:09)
[2021-03-22] MEDS: buPROPion HCL 75 MG TABLET GT SCH ×2 (09:59→23:09)
[2021-03-22] MEDS ORDERED: DEXAMETHASONE SOD PHOSPHATE 10 MG/1 ML VIAL IVPUSH ONE (10:33)
[2021-03-22 12:30] LABS: INR 1.12 (0.83-1.09); PROTHROMBIN TIME (PATIENT) 12.6 SEC (9.7-13.0)
[2021-03-22] MEDS: DEXMEDETOMIDINE IN 0.9 % NACL 400 MCG/100 ML VIAL IVPB SCH (12:30)
[2021-03-22 12:35] LABS: HEMATOCRIT 26.9 % (32.4-45.2); HEMOGLOBIN 8.2 GM/dL (10.7-15.3); MCHC 30.5 g/dl (32.0-36.0); MEAN CELL VOLUME 98.5 fl (80-96); MEAN PLT VOLUME 9.6 fl (7.5-11.1); PLATELET COUNT 214 10^3/uL (134-434); RBC 2.73 M/mm3 (3.60-5.2); RDW 20.2 % (11.6-15.6)
[2021-03-22 12:41] LABS: WHITE BLOOD COUNT 31.8 K/mm3 (4.0-10.0)
[2021-03-22 12:46] LABS: CALCIUM 9.8 mg/dL (8.5-10.1)
[2021-03-22 12:47] LABS: MAGNESIUM 2.3 mg/dL (1.8-2.4)
[2021-03-22 12:50] LABS: CREATININE 3.8 mg/dL (0.55-1.3); PHOSPHOROUS 2.9 mg/dL (2.5-4.9)
[2021-03-22 13:20] LABS: BLOOD UREA NITROGEN 55.2 mg/dL (7-18)
[2021-03-22 16:29] LABS: ARTERIAL BLD GAS O2 SATURATION 99.6 % (95-98); ARTERIAL BLOOD GAS BASE EXCESS 2.8 mmol/L (-2-2); ARTERIAL BLOOD GAS PO2 242.7 mmHg (80-100)
[2021-03-22 16:35] LABS: ALLENS TEST POSITIVE; VENT RATE 14
[2021-03-22] MEDS ORDERED: PT OWN MED DRAWER 7, Y5N ONE ×2 (16:47→21:29)
[2021-03-22] MEDS: QUEtiapine FUMARATE 100 MG TABLET (FP) GT SCH (23:09)
[2021-03-22] MEDS: ATORVASTATIN CA 80 MG TABLET (FP) GT SCH (23:09)
[2021-03-23] MEDS: INSULIN SLIDING SCALE (NOVOLOG) 1 VIAL SQ SCH ×4 (04:37→16:25)
[2021-03-23 07:08] LABS: CHLORIDE 106 mmol/L (98-107); SODIUM 143 mmol/L (136-145)
[2021-03-23] MEDS ORDERED: PT OWN MED DRAWER 7, Y5N ONE ×4 (07:08→20:33)
[2021-03-23 07:10] LABS: CALCIUM 10.3 mg/dL (8.5-10.1)
[2021-03-23 07:11] LABS: ALBUMIN 1.6 g/dl (3.4-5.0); ANION GAP 11 MMOL/L (8-16); BLOOD UREA NITROGEN 63.6 mg/dL (7-18); CO2 26 mmol/L (21-32); GLUCOSE,RANDOM 167 mg/dL (74-106); MAGNESIUM 2.2 mg/dL (1.8-2.4)
[2021-03-23] MEDS: TOPIRAMATE 100 MG TABLET GT SCH (07:13)
[2021-03-23 07:14] LABS: CREATININE 4.3 mg/dL (0.55-1.3); PHOSPHOROUS 3.7 mg/dL (2.5-4.9); SGOT/AST 10 U/L (15-37)
[2021-03-23 07:15] LABS: BILIRUBIN,TOTAL 0.4 mg/dL (0.2-1); TOT PROT 5.4 g/dl (6.4-8.2)
[2021-03-23 07:16] LABS: ALK PHOS 98 U/L (45-117)
[2021-03-23 07:24] LABS: HEMOGLOBIN 8.2 GM/dL (10.7-15.3); MCH 30.2 pg (25.7-33.7); MCHC 31.4 g/dl (32.0-36.0); MEAN CELL VOLUME 96.3 fl (80-96); MEAN PLT VOLUME 10.2 fl (7.5-11.1); PLATELET COUNT 206 10^3/uL (134-434); RDW 19.1 % (11.6-15.6); WHITE BLOOD COUNT 22.3 K/mm3 (4.0-10.0)
[2021-03-23 07:41] LABS: SGPT/ALT < 6 U/L (13-61)
[2021-03-23] MEDS: AMINO ACIDS/PROTEIN HYDROLYS 30 ML LIQUID.PKT GT SCH ×2 (09:06→18:37)
[2021-03-23] MEDS: ENOXAPARIN NA (PORCINE) 30 MG/0.3 ML DISP.SYRIN SQ SCH (09:06)
[2021-03-23] MEDS: CARVEDILOL 6.25 MG TABLET (FP) GT SCH (09:07)
[2021-03-23] MEDS: hydrALAZINE HCL 25 MG TABLET (FP) GT SCH (09:07)
[2021-03-23] MEDS: VITAMIN B COMP W-C 1 EA TABLET (NEPHRO-VITE) PO SCH (09:07)
[2021-03-23] MEDS: levETIRAcetam 500 MG/5 ML ORAL SOLUTION (UNIT-DOSE CUPS) GT SCH (09:07)
[2021-03-23] MEDS: buPROPion HCL 75 MG TABLET GT SCH (09:07)
[2021-03-23] MEDS: CARBIDOPA/LEVODOPA 25/100 TABLET (FP) GT SCH ×3 (09:08→18:37)
[2021-03-23] MEDS: PANTOPRAZOLE SODIUM 40 MG VIAL IVPUSH SCH (09:08)
[2021-03-23] MEDS: ZINC SULFATE 220 MG CAPSULE (FP) GT SCH (09:08)
[2021-03-23] MEDS: amLODIPine BESYLATE 10 MG TABLET (FP) GT SCH (09:08)
[2021-03-23] MEDS: CLOPIDOGREL BISULFATE 75 MG TABLET (FP) GT SCH (09:08)
[2021-03-23 10:57] LABS: ANISOCYTOSIS 1+; MACROCYTOSIS 1+; OVALOCYTE 1+; PLATELET ESTIMATE NORMAL
[2021-03-23] MEDS: SODIUM HYPOCHLORITE 0.5% 473 ML- BULK BOTTLE TP SCH ×2 (12:00)
[2021-03-23] MEDS ORDERED: SODIUM CHLORIDE 500 ML IV STA (14:26)
[2021-03-23] MEDS ORDERED: SODIUM CHLORIDE 1,000 ML IV SCH (14:30)
[2021-03-23] MEDS ORDERED: EPOETIN ALFA-EPBX 10,000 UNIT/ML VIAL IVPUSH ONE (17:00)
[2021-03-23] MEDS ORDERED: SODIUM CHLORIDE 250 ML IV PRN (17:00)
[2021-03-23] MEDS: DEXMEDETOMIDINE IN 0.9 % NACL 400 MCG/100 ML VIAL IVPB SCH (18:28)
[2021-03-24] MEDS: CARVEDILOL 6.25 MG TABLET (FP) GT SCH ×3 (00:17→21:58)
[2021-03-24] MEDS: hydrALAZINE HCL 25 MG TABLET (FP) GT SCH ×3 (00:18→21:58)
[2021-03-24] MEDS: QUEtiapine FUMARATE 100 MG TABLET (FP) GT SCH (00:18)
[2021-03-24] MEDS: levETIRAcetam 500 MG/5 ML ORAL SOLUTION (UNIT-DOSE CUPS) GT SCH ×3 (00:18→22:24)
[2021-03-24] MEDS: MUPIROCIN 2% TOPICAL OINTMENT FOR DECOLONIZATION NS SCH ×3 (00:18→21:58)
[2021-03-24] MEDS: ATORVASTATIN CA 80 MG TABLET (FP) GT SCH ×2 (00:18→22:24)
[2021-03-24] MEDS: INSULIN SLIDING SCALE (NOVOLOG) 1 VIAL SQ SCH ×4 (00:18→16:39)
[2021-03-24] MEDS: CHLORHEXIDINE GLUCONATE 4% CLEANSER FOR DECOLONIZATION TP SCH ×2 (00:18→21:58)
[2021-03-24] MEDS: CARBIDOPA/LEVODOPA 25/100 TABLET (FP) GT SCH ×5 (00:18→22:24)
[2021-03-24] MEDS: TOPIRAMATE 100 MG TABLET GT SCH ×3 (00:19→22:24)
[2021-03-24] MEDS: buPROPion HCL 75 MG TABLET GT SCH ×2 (00:19→09:34)
[2021-03-24] MEDS ORDERED: SODIUM CHLORIDE 250 ML IV STA (01:23)
[2021-03-24 06:54] LABS: BASO % 0.3 % (0-2.0); EOS % 1.1 % (0-4.5); HEMATOCRIT 24.6 % (32.4-45.2); HEMOGLOBIN 7.8 GM/dL (10.7-15.3); LYMPH % 7.7 % (8-40); MCH 30.3 pg (25.7-33.7); MCHC 31.9 g/dl (32.0-36.0); MEAN CELL VOLUME 95.1 fl (80-96); MEAN PLT VOLUME 9.6 fl (7.5-11.1); NEUT % 84.9 % (42.8-82.8); PLATELET COUNT 178 10^3/uL (134-434); RBC 2.59 M/mm3 (3.60-5.2); RDW 18.9 % (11.6-15.6); WHITE BLOOD COUNT 17.1 K/mm3 (4.0-10.0)
[2021-03-24 07:10] LABS: CHLORIDE 104 mmol/L (98-107); SODIUM 141 mmol/L (136-145)
[2021-03-24 07:12] LABS: ALBUMIN 1.9 g/dl (3.4-5.0); CALCIUM 9.2 mg/dL (8.5-10.1)
[2021-03-24 07:13] LABS: ANION GAP 9 MMOL/L (8-16); CO2 28 mmol/L (21-32); GLUCOSE,RANDOM 149 mg/dL (74-106); MAGNESIUM 1.8 mg/dL (1.8-2.4)
[2021-03-24 07:15] LABS: CREATININE 2.5 mg/dL (0.55-1.3)
[2021-03-24 07:16] LABS: PHOSPHOROUS 2.2 mg/dL (2.5-4.9); SGOT/AST 11 U/L (15-37)
[2021-03-24 07:17] LABS: BILIRUBIN,TOTAL 0.3 mg/dL (0.2-1); TOT PROT 5.2 g/dl (6.4-8.2)
[2021-03-24 07:18] LABS: ALK PHOS 84 U/L (45-117)
[2021-03-24] MEDS ORDERED: PT OWN MED DRAWER 7, Y5N ONE ×3 (07:31→22:23)
[2021-03-24 07:35] LABS: BLOOD UREA NITROGEN 35.3 mg/dL (7-18); SGPT/ALT < 6 U/L (13-61)
[2021-03-24] MEDS: DEXMEDETOMIDINE IN 0.9 % NACL 400 MCG/100 ML VIAL IVPB SCH (08:00)
[2021-03-24] MEDS: ENOXAPARIN NA (PORCINE) 30 MG/0.3 ML DISP.SYRIN SQ SCH (09:33)
[2021-03-24] MEDS: PANTOPRAZOLE SODIUM 40 MG VIAL IVPUSH SCH (09:33)
[2021-03-24] MEDS: amLODIPine BESYLATE 10 MG TABLET (FP) GT SCH (09:33)
[2021-03-24] MEDS: CLOPIDOGREL BISULFATE 75 MG TABLET (FP) GT SCH (09:33)
[2021-03-24] MEDS: ZINC SULFATE 220 MG CAPSULE (FP) GT SCH (09:33)
[2021-03-24] MEDS: AMINO ACIDS/PROTEIN HYDROLYS 30 ML LIQUID.PKT GT SCH ×2 (09:33→17:35)
[2021-03-24] MEDS: SODIUM HYPOCHLORITE 0.5% 473 ML- BULK BOTTLE TP SCH ×2 (09:35)
[2021-03-24] MEDS: VITAMIN B COMP W-C 1 EA TABLET (NEPHRO-VITE) PO SCH (09:38)
[2021-03-24] MEDS ORDERED: METOCLOPRAMIDE HCL 10 MG/10 ML UNIT DOSE CUP GT ONE (14:00)
[2021-03-24] MEDS ORDERED: SODIUM CHLORIDE 250 ML IV PRN (14:47)
[2021-03-25] MEDS: INSULIN SLIDING SCALE (NOVOLOG) 1 VIAL SQ SCH ×5 (04:10→21:57)
[2021-03-25] MEDS: TOPIRAMATE 100 MG TABLET GT SCH ×2 (06:34→21:57)
[2021-03-25 07:22] LABS: BASO % 0.1 % (0-2.0); EOS % 0.5 % (0-4.5); HEMATOCRIT 24.8 % (32.4-45.2); HEMOGLOBIN 7.6 GM/dL (10.7-15.3); LYMPH % 7.1 % (8-40); MCH 29.8 pg (25.7-33.7); MCHC 30.7 g/dl (32.0-36.0); MEAN CELL VOLUME 97.1 fl (80-96); MEAN PLT VOLUME 10.3 fl (7.5-11.1); MONO % 5.4 % (3.8-10.2); NEUT % 86.9 % (42.8-82.8); PLATELET COUNT 206 10^3/uL (134-434); RBC 2.55 M/mm3 (3.60-5.2); RDW 18.2 % (11.6-15.6); WHITE BLOOD COUNT 19.2 K/mm3 (4.0-10.0)
[2021-03-25 07:26] LABS: CHLORIDE 104 mmol/L (98-107); SODIUM 141 mmol/L (136-145)
[2021-03-25 07:35] LABS: CALCIUM 9.3 mg/dL (8.5-10.1)
[2021-03-25 07:36] LABS: ANION GAP 9 MMOL/L (8-16); CO2 29 mmol/L (21-32); GLUCOSE,RANDOM 124 mg/dL (74-106); MAGNESIUM 2.1 mg/dL (1.8-2.4)
[2021-03-25 07:38] LABS: SGPT/ALT < 6 U/L (13-61)
[2021-03-25 07:39] LABS: BILIRUBIN,TOTAL 0.3 mg/dL (0.2-1); PHOSPHOROUS 2.7 mg/dL (2.5-4.9); SGOT/AST 11 U/L (15-37); TOT PROT 5.3 g/dl (6.4-8.2)
[2021-03-25 07:41] LABS: ALK PHOS 82 U/L (45-117)
[2021-03-25] MEDS: DEXMEDETOMIDINE IN 0.9 % NACL 400 MCG/100 ML VIAL IVPB SCH (08:07)
[2021-03-25 08:45] LABS: PLATELET ESTIMATE NORMAL
[2021-03-25] MEDS ORDERED: PT OWN MED DRAWER 7, Y5N ONE (09:26)
[2021-03-25] MEDS: AMINO ACIDS/PROTEIN HYDROLYS 30 ML LIQUID.PKT GT SCH ×2 (09:28→17:25)
[2021-03-25] MEDS: VITAMIN B COMP W-C 1 EA TABLET (NEPHRO-VITE) PO SCH (09:31)
[2021-03-25] MEDS: hydrALAZINE HCL 25 MG TABLET (FP) GT SCH ×2 (09:31→21:58)
[2021-03-25] MEDS: ZINC SULFATE 220 MG CAPSULE (FP) GT SCH (09:31)
[2021-03-25] MEDS: CARBIDOPA/LEVODOPA 25/100 TABLET (FP) GT SCH ×4 (09:32→21:59)
[2021-03-25] MEDS: ENOXAPARIN NA (PORCINE) 30 MG/0.3 ML DISP.SYRIN SQ SCH (09:32)
[2021-03-25] MEDS: MUPIROCIN 2% TOPICAL OINTMENT FOR DECOLONIZATION NS SCH ×2 (09:32→21:58)
[2021-03-25] MEDS: CLOPIDOGREL BISULFATE 75 MG TABLET (FP) GT SCH (09:32)
[2021-03-25] MEDS: SODIUM HYPOCHLORITE 0.5% 473 ML- BULK BOTTLE TP SCH ×2 (09:32→09:33)
[2021-03-25] MEDS: PANTOPRAZOLE SODIUM 40 MG VIAL IVPUSH SCH (09:33)
[2021-03-25] MEDS: levETIRAcetam 500 MG/5 ML ORAL SOLUTION (UNIT-DOSE CUPS) GT SCH ×2 (09:33→21:56)
[2021-03-25] MEDS ORDERED: EPOETIN ALFA-EPBX 10,000 UNIT/ML VIAL IVPUSH ONE (11:00)
[2021-03-25] MEDS: CARVEDILOL 6.25 MG TABLET (FP) GT SCH ×2 (12:02→21:58)
[2021-03-25] MEDS: amLODIPine BESYLATE 10 MG TABLET (FP) GT SCH (12:02)
[2021-03-25] MEDS: ACETAMINOPHEN 650 MG/20.3 ML ORAL SOLUTION (CUPS) GT PRN (12:36)
[2021-03-25] MEDS: CHLORHEXIDINE GLUCONATE 4% CLEANSER FOR DECOLONIZATION TP SCH (21:57)
[2021-03-25] MEDS: ATORVASTATIN CA 80 MG TABLET (FP) GT SCH (21:59)
[2021-03-25] MEDS ORDERED: POLYETHYLENE GLYCOL (HEALTHYLAX) 3350 17 GM PACKET GT PRN (23:16)
[2021-03-26] MEDS: ACETAMINOPHEN 650 MG/20.3 ML ORAL SOLUTION (CUPS) GT PRN (00:14)
[2021-03-26] MEDS ORDERED: PT OWN MED DRAWER 7, Y5N ONE ×3 (05:24→20:36)
[2021-03-26] MEDS: INSULIN SLIDING SCALE (NOVOLOG) 1 VIAL SQ SCH ×4 (06:05→22:01)
[2021-03-26] MEDS: TOPIRAMATE 100 MG TABLET GT SCH ×2 (06:07→21:43)
[2021-03-26] MEDS ORDERED: MUPIROCIN 2% TOPICAL OINTMENT FOR DECOLONIZATION NS SCH (10:00)
[2021-03-26] MEDS ORDERED: SODIUM HYPOCHLORITE 0.5% 473 ML- BULK BOTTLE TP SCH (10:00)
[2021-03-26] MEDS: PANTOPRAZOLE SODIUM 40 MG VIAL IVPUSH SCH (10:32)
[2021-03-26] MEDS: AMINO ACIDS/PROTEIN HYDROLYS 30 ML LIQUID.PKT GT SCH ×2 (10:32→17:02)
[2021-03-26] MEDS: amLODIPine BESYLATE 10 MG TABLET (FP) GT SCH (10:33)
[2021-03-26] MEDS: SODIUM HYPOCHLORITE 0.5% 473 ML- BULK BOTTLE TP SCH (10:33)
[2021-03-26] MEDS: hydrALAZINE HCL 25 MG TABLET (FP) GT SCH ×2 (10:33→21:43)
[2021-03-26] MEDS: CARVEDILOL 6.25 MG TABLET (FP) GT SCH ×2 (10:33→21:43)
[2021-03-26] MEDS: VITAMIN B COMP W-C 1 EA TABLET (NEPHRO-VITE) PO SCH (10:33)
[2021-03-26] MEDS: CLOPIDOGREL BISULFATE 75 MG TABLET (FP) GT SCH (10:33)
[2021-03-26] MEDS: ZINC SULFATE 220 MG CAPSULE (FP) GT SCH (10:33)
[2021-03-26] MEDS: levETIRAcetam 500 MG/5 ML ORAL SOLUTION (UNIT-DOSE CUPS) GT SCH ×3 (10:42→21:43)
[2021-03-26] MEDS: CARBIDOPA/LEVODOPA 25/100 TABLET (FP) GT SCH ×5 (10:42→21:43)
[2021-03-26] MEDS: ATORVASTATIN CA 80 MG TABLET (FP) GT SCH (21:43)
[2021-03-26] MEDS ORDERED: CHLORHEXIDINE GLUCONATE 4% CLEANSER FOR DECOLONIZATION TP SCH (22:00)
[2021-03-27] MEDS ORDERED: PT OWN MED DRAWER 7, Y5N ONE ×5 (05:24→22:07)
[2021-03-27] MEDS: INSULIN SLIDING SCALE (NOVOLOG) 1 VIAL SQ SCH ×3 (06:12→17:15)
[2021-03-27] MEDS ORDERED: SODIUM CHLORIDE 250 ML IV PRN (07:00)
[2021-03-27] MEDS: TOPIRAMATE 100 MG TABLET GT SCH ×2 (07:23→21:59)
[2021-03-27] MEDS ORDERED: EPOETIN ALFA-EPBX 20,000 UNIT/ML VIAL SQ ONE (08:00)
[2021-03-27] MEDS: CARBIDOPA/LEVODOPA 25/100 TABLET (FP) GT SCH ×4 (11:00→22:09)
[2021-03-27] MEDS: amLODIPine BESYLATE 10 MG TABLET (FP) GT SCH (11:00)
[2021-03-27] MEDS: CARVEDILOL 6.25 MG TABLET (FP) GT SCH ×2 (11:00→22:08)
[2021-03-27] MEDS: VITAMIN B COMP W-C 1 EA TABLET (NEPHRO-VITE) PO SCH (11:00)
[2021-03-27] MEDS: ZINC SULFATE 220 MG CAPSULE (FP) GT SCH (11:00)
[2021-03-27] MEDS: PANTOPRAZOLE SODIUM 40 MG VIAL IVPUSH SCH (11:00)
[2021-03-27] MEDS: levETIRAcetam 500 MG/5 ML ORAL SOLUTION (UNIT-DOSE CUPS) GT SCH ×2 (11:00→21:59)
[2021-03-27] MEDS: hydrALAZINE HCL 25 MG TABLET (FP) GT SCH ×2 (11:00→22:09)
[2021-03-27] MEDS: CLOPIDOGREL BISULFATE 75 MG TABLET (FP) GT SCH (11:00)
[2021-03-27] MEDS: SODIUM HYPOCHLORITE 0.5% 473 ML- BULK BOTTLE TP SCH (11:00)
[2021-03-27] MEDS: AMINO ACIDS/PROTEIN HYDROLYS 30 ML LIQUID.PKT GT SCH ×2 (11:00→17:16)
[2021-03-27] MEDS: ATORVASTATIN CA 80 MG TABLET (FP) GT SCH (22:02)
[2021-03-28] MEDS: TOPIRAMATE 100 MG TABLET GT SCH ×2 (07:53→22:20)
[2021-03-28] MEDS: INSULIN SLIDING SCALE (NOVOLOG) 1 VIAL SQ SCH ×4 (07:55→22:20)
[2021-03-28] MEDS ORDERED: PT OWN MED DRAWER 7, Y5N ONE ×4 (08:34→22:04)
[2021-03-28] MEDS: ZINC SULFATE 220 MG CAPSULE (FP) GT SCH (10:05)
[2021-03-28] MEDS: VITAMIN B COMP W-C 1 EA TABLET (NEPHRO-VITE) PO SCH (10:05)
[2021-03-28] MEDS: AMINO ACIDS/PROTEIN HYDROLYS 30 ML LIQUID.PKT GT SCH ×2 (10:05→17:10)
[2021-03-28] MEDS: PANTOPRAZOLE SODIUM 40 MG VIAL IVPUSH SCH (10:05)
[2021-03-28] MEDS: hydrALAZINE HCL 25 MG TABLET (FP) GT SCH ×2 (10:06→22:20)
[2021-03-28] MEDS: CLOPIDOGREL BISULFATE 75 MG TABLET (FP) GT SCH (10:06)
[2021-03-28] MEDS: CARVEDILOL 6.25 MG TABLET (FP) GT SCH ×2 (10:06→22:20)
[2021-03-28] MEDS: levETIRAcetam 500 MG/5 ML ORAL SOLUTION (UNIT-DOSE CUPS) GT SCH ×2 (10:06→22:21)
[2021-03-28] MEDS: amLODIPine BESYLATE 10 MG TABLET (FP) GT SCH (10:07)
[2021-03-28] MEDS: CARBIDOPA/LEVODOPA 25/100 TABLET (FP) GT SCH ×4 (10:07→22:18)
[2021-03-28] MEDS: SODIUM HYPOCHLORITE 0.5% 473 ML- BULK BOTTLE TP SCH (10:08)
[2021-03-28] MEDS: ATORVASTATIN CA 80 MG TABLET (FP) GT SCH (22:18)
[2021-03-29] MEDS: INSULIN SLIDING SCALE (NOVOLOG) 1 VIAL SQ SCH ×4 (06:16→22:54)
[2021-03-29] MEDS: TOPIRAMATE 100 MG TABLET GT SCH ×2 (06:39→22:36)
[2021-03-29 08:17] LABS: HEMATOCRIT 24.2 % (32.4-45.2); HEMOGLOBIN 7.4 GM/dL (10.7-15.3); MCH 29.7 pg (25.7-33.7); MCHC 30.5 g/dl (32.0-36.0); MEAN CELL VOLUME 97.3 fl (80-96); MEAN PLT VOLUME 9.3 fl (7.5-11.1); PLATELET COUNT 237 10^3/uL (134-434); RBC 2.48 M/mm3 (3.60-5.2); RDW 18.5 % (11.6-15.6); WHITE BLOOD COUNT 17.1 K/mm3 (4.0-10.0)
[2021-03-29 08:39] LABS: BLOOD UREA NITROGEN 39.3 mg/dL (7-18); CALCIUM 8.6 mg/dL (8.5-10.1)
[2021-03-29 08:42] LABS: CREATININE 3.1 mg/dL (0.55-1.3)
[2021-03-29 08:44] LABS: BILIRUBIN,TOTAL 0.2 mg/dL (0.2-1)
[2021-03-29 10:05] LABS: ALBUMIN 1.7 g/dl (3.4-5.0)
[2021-03-29] MEDS: CARVEDILOL 6.25 MG TABLET (FP) GT SCH ×2 (10:40→22:36)
[2021-03-29] MEDS: PANTOPRAZOLE SODIUM 40 MG VIAL IVPUSH SCH (10:40)
[2021-03-29] MEDS: ZINC SULFATE 220 MG CAPSULE (FP) GT SCH (10:40)
[2021-03-29] MEDS: amLODIPine BESYLATE 10 MG TABLET (FP) GT SCH (10:40)
[2021-03-29] MEDS: VITAMIN B COMP W-C 1 EA TABLET (NEPHRO-VITE) PO SCH (10:40)
[2021-03-29] MEDS: AMINO ACIDS/PROTEIN HYDROLYS 30 ML LIQUID.PKT GT SCH ×2 (10:40→18:16)
[2021-03-29] MEDS: hydrALAZINE HCL 25 MG TABLET (FP) GT SCH ×2 (10:40→22:36)
[2021-03-29] MEDS: SODIUM HYPOCHLORITE 0.5% 473 ML- BULK BOTTLE TP SCH (10:41)
[2021-03-29] MEDS: CARBIDOPA/LEVODOPA 25/100 TABLET (FP) GT SCH ×4 (10:42→22:36)
[2021-03-29] MEDS: levETIRAcetam 500 MG/5 ML ORAL SOLUTION (UNIT-DOSE CUPS) GT SCH ×2 (10:42→22:37)
[2021-03-29] MEDS: CLOPIDOGREL BISULFATE 75 MG TABLET (FP) GT SCH (11:04)
[2021-03-29] MEDS ORDERED: PT OWN MED DRAWER 7, Y5N ONE ×2 (18:15→22:32)
[2021-03-29] MEDS: ATORVASTATIN CA 80 MG TABLET (FP) GT SCH (22:36)
[2021-03-30] MEDS: TOPIRAMATE 100 MG TABLET GT SCH ×2 (06:18→22:37)
[2021-03-30] MEDS: INSULIN SLIDING SCALE (NOVOLOG) 1 VIAL SQ SCH ×4 (06:44→22:33)
[2021-03-30] MEDS ORDERED: SODIUM CHLORIDE 250 ML IV PRN (07:00)
[2021-03-30] MEDS: EPOETIN ALFA-EPBX 10,000 UNIT/ML VIAL SQ ONE ×2 (07:42→08:08)
[2021-03-30] MEDS: AMINO ACIDS/PROTEIN HYDROLYS 30 ML LIQUID.PKT GT SCH ×2 (08:09→17:35)
[2021-03-30] MEDS ORDERED: PT OWN MED DRAWER 7, Y5N ONE ×4 (09:15→22:36)
[2021-03-30] MEDS: CLOPIDOGREL BISULFATE 75 MG TABLET (FP) GT SCH (10:03)
[2021-03-30] MEDS: CARVEDILOL 6.25 MG TABLET (FP) GT SCH ×2 (10:03→22:37)
[2021-03-30] MEDS: CARBIDOPA/LEVODOPA 25/100 TABLET (FP) GT SCH ×4 (10:03→22:37)
[2021-03-30] MEDS: hydrALAZINE HCL 25 MG TABLET (FP) GT SCH ×2 (10:03→22:37)
[2021-03-30] MEDS: levETIRAcetam 500 MG/5 ML ORAL SOLUTION (UNIT-DOSE CUPS) GT SCH ×2 (10:03→22:37)
[2021-03-30] MEDS: ZINC SULFATE 220 MG CAPSULE (FP) GT SCH (10:03)
[2021-03-30] MEDS: PANTOPRAZOLE SODIUM 40 MG VIAL IVPUSH SCH ×2 (10:03→11:07)
[2021-03-30] MEDS: amLODIPine BESYLATE 10 MG TABLET (FP) GT SCH (10:03)
[2021-03-30] MEDS: VITAMIN B COMP W-C 1 EA TABLET (NEPHRO-VITE) PO SCH (10:03)
[2021-03-30] MEDS: SODIUM HYPOCHLORITE 0.5% 473 ML- BULK BOTTLE TP SCH (12:37)
[2021-03-30] MEDS ORDERED: PROPOFOL 20 ML ONE (14:35)
[2021-03-30] MEDS ORDERED: DESFLURANE GAS 240 ML BOTTLE IH ONE (14:37)
[2021-03-30] MEDS ORDERED: SUCCINYLCHOLINE CHLORIDE 200 MG/10 ML SYRINGE ONE (14:38)
[2021-03-30] MEDS ORDERED: PHENYLEPHRINE HCL 10 MG/1 ML SINGLE DOSE VIAL ONE (14:38)
[2021-03-30] MEDS ORDERED: ACETAMINOPHEN INJECTION 100 ML IVPB ONE (14:40)
[2021-03-30] MEDS ORDERED: DEXMEDETOMIDINE HCL 200 MCG/2 ML IVPB ONE (14:40)
[2021-03-30] MEDS ORDERED: LIDOCAINE HCL 2% (20ML MULTI-DOSE VIAL) ONE (14:44)
[2021-03-30] MEDS ORDERED: LIDOCAINE 1%/EPI 1:100000 (20 ML MULTI DOSE VIAL) ONE (14:45)
[2021-03-30] MEDS: ATORVASTATIN CA 80 MG TABLET (FP) GT SCH (22:37)
[2021-03-31] MEDS: TOPIRAMATE 100 MG TABLET GT SCH (06:49)
[2021-03-31] MEDS: INSULIN SLIDING SCALE (NOVOLOG) 1 VIAL SQ SCH ×4 (06:49→22:45)
[2021-03-31] MEDS ORDERED: PT OWN MED DRAWER 7, Y5N ONE ×2 (09:28→21:47)
[2021-03-31] MEDS: AMINO ACIDS/PROTEIN HYDROLYS 30 ML LIQUID.PKT GT SCH ×2 (10:26→17:59)
[2021-03-31] MEDS: SODIUM HYPOCHLORITE 0.5% 473 ML- BULK BOTTLE TP SCH (10:28)
[2021-03-31] MEDS: VITAMIN B COMP W-C 1 EA TABLET (NEPHRO-VITE) PO SCH (10:34)
[2021-03-31] MEDS: amLODIPine BESYLATE 10 MG TABLET (FP) GT SCH (10:34)
[2021-03-31] MEDS: hydrALAZINE HCL 25 MG TABLET (FP) GT SCH (10:34)
[2021-03-31] MEDS: PANTOPRAZOLE SODIUM 40 MG VIAL IVPUSH SCH (10:34)
[2021-03-31] MEDS: CLOPIDOGREL BISULFATE 75 MG TABLET (FP) GT SCH (10:34)
[2021-03-31] MEDS: CARVEDILOL 6.25 MG TABLET (FP) GT SCH (10:34)
[2021-03-31] MEDS: ZINC SULFATE 220 MG CAPSULE (FP) GT SCH (10:34)
[2021-03-31] MEDS: CARBIDOPA/LEVODOPA 25/100 TABLET (FP) GT SCH ×2 (11:13→14:13)
[2021-03-31 12:00] LABS: BASO % 0.6 % (0-2.0); EOS % 0.9 % (0-4.5); HEMATOCRIT 27.7 % (32.4-45.2); HEMOGLOBIN 8.4 GM/dL (10.7-15.3); LYMPH % 10.3 % (8-40); MCHC 30.1 g/dl (32.0-36.0); MEAN CELL VOLUME 96.3 fl (80-96); MEAN PLT VOLUME 8.9 fl (7.5-11.1); MONO % 6.7 % (3.8-10.2); NEUT % 81.5 % (42.8-82.8); PLATELET COUNT 257 10^3/uL (134-434); RBC 2.88 M/mm3 (3.60-5.2); RDW 18.5 % (11.6-15.6); WHITE BLOOD COUNT 19.2 K/mm3 (4.0-10.0)
[2021-03-31 12:21] LABS: CALCIUM 9.4 mg/dL (8.5-10.1)
[2021-03-31 12:22] LABS: ALBUMIN 1.8 g/dl (3.4-5.0); BLOOD UREA NITROGEN 29.7 mg/dL (7-18)
[2021-03-31 12:25] LABS: CREATININE 2.8 mg/dL (0.55-1.3)
[2021-03-31 12:27] LABS: BILIRUBIN,TOTAL 0.4 mg/dL (0.2-1); TOT PROT 5.7 g/dl (6.4-8.2)
[2021-03-31] MEDS: levETIRAcetam 500 MG/5 ML ORAL SOLUTION (UNIT-DOSE CUPS) GT SCH (14:12)
[2021-03-31] MEDS: ALBUTEROL SO4 2.5/IPRATROPIUM 0.5 INH SOL 3 ML VIAL.NEB. NEB SCH (20:35)
[2021-04-01] MEDS: ATORVASTATIN CA 80 MG TABLET (FP) GT SCH ×2 (00:04→21:22)
[2021-04-01] MEDS: TOPIRAMATE 100 MG TABLET GT SCH ×3 (00:04→21:22)
[2021-04-01] MEDS: CARBIDOPA/LEVODOPA 25/100 TABLET (FP) GT SCH ×5 (00:05→21:22)
[2021-04-01] MEDS: hydrALAZINE HCL 25 MG TABLET (FP) GT SCH ×3 (00:05→21:23)
[2021-04-01] MEDS: CARVEDILOL 6.25 MG TABLET (FP) GT SCH ×3 (00:06→21:22)
[2021-04-01] MEDS: levETIRAcetam 500 MG/5 ML ORAL SOLUTION (UNIT-DOSE CUPS) GT SCH ×3 (00:06→21:22)
[2021-04-01] MEDS ORDERED: PT OWN MED DRAWER 7, Y5N ONE (05:47)
[2021-04-01] MEDS: INSULIN SLIDING SCALE (NOVOLOG) 1 VIAL SQ SCH ×4 (07:32→22:40)
[2021-04-01] MEDS: ALBUTEROL SO4 2.5/IPRATROPIUM 0.5 INH SOL 3 ML VIAL.NEB. NEB SCH ×4 (08:00→20:41)
[2021-04-01] MEDS ORDERED: SODIUM CHLORIDE 250 ML IV PRN (08:51)
[2021-04-01] MEDS ORDERED: EPOETIN ALFA-EPBX 10,000 UNIT/ML VIAL IVPUSH ONE (09:00)
[2021-04-01] MEDS: SODIUM HYPOCHLORITE 0.5% 473 ML- BULK BOTTLE TP SCH (11:33)
[2021-04-01] MEDS: AMINO ACIDS/PROTEIN HYDROLYS 30 ML LIQUID.PKT GT SCH ×2 (11:33→17:05)
[2021-04-01] MEDS: PANTOPRAZOLE 40 MG TABLET PO SCH (11:36)
[2021-04-01] MEDS: VITAMIN B COMP W-C 1 EA TABLET (NEPHRO-VITE) PO SCH (11:37)
[2021-04-01] MEDS: CLOPIDOGREL BISULFATE 75 MG TABLET (FP) GT SCH (11:37)
[2021-04-01] MEDS: amLODIPine BESYLATE 10 MG TABLET (FP) GT SCH (11:37)
[2021-04-01] MEDS: ZINC SULFATE 220 MG CAPSULE (FP) GT SCH (11:37)
[2021-04-01 13:02] LABS: ARTERIAL BLD GAS O2 SATURATION 98.3 % (95-98); ARTERIAL BLOOD GAS BASE EXCESS 2.1 mmol/L (-2-2); ARTERIAL BLOOD GAS PO2 119.2 mmHg (80-100); ARTERIAL BLOOD GAS pH 7.399 (7.350-7.450)
[2021-04-01 13:04] LABS: ALLENS TEST POSITIVE
[2021-04-01 16:51] LABS: BASO % 0.2 % (0-2.0); EOS % 1.1 % (0-4.5); HEMATOCRIT 24.9 % (32.4-45.2); HEMOGLOBIN 7.5 GM/dL (10.7-15.3); LYMPH % 8.1 % (8-40); MCHC 30.1 g/dl (32.0-36.0); MEAN CELL VOLUME 96.4 fl (80-96); MONO % 5.3 % (3.8-10.2); NEUT % 85.3 % (42.8-82.8); PLATELET COUNT 239 10^3/uL (134-434); RBC 2.58 M/mm3 (3.60-5.2); WHITE BLOOD COUNT 17.9 K/mm3 (4.0-10.0)
[2021-04-01] MEDS: ALBUMIN HUMAN 25% 12.5 GM/50 ML VIAL IVPB SCH ×4 (17:00→18:30)
[2021-04-01 17:01] LABS: CHLORIDE 104 mmol/L (98-107); SODIUM 141 mmol/L (136-145)
[2021-04-01 17:04] LABS: ALBUMIN 1.8 g/dl (3.4-5.0); ANION GAP 9 MMOL/L (8-16); CO2 28 mmol/L (21-32); GLUCOSE,RANDOM 144 mg/dL (74-106)
[2021-04-01 17:07] LABS: CREATININE 3.5 mg/dL (0.55-1.3); SGOT/AST 13 U/L (15-37)
[2021-04-01 17:08] LABS: BILIRUBIN,TOTAL 0.3 mg/dL (0.2-1)
[2021-04-01 17:09] LABS: ALK PHOS 73 U/L (45-117); BLOOD UREA NITROGEN 39.4 mg/dL (7-18); TOT PROT 5.3 g/dl (6.4-8.2)
[2021-04-01 17:10] LABS: SGPT/ALT < 6 U/L (13-61)
[2021-04-02] MEDS: INSULIN SLIDING SCALE (NOVOLOG) 1 VIAL SQ SCH ×4 (06:40→22:35)
[2021-04-02] MEDS: TOPIRAMATE 100 MG TABLET GT SCH ×2 (06:41→22:36)
[2021-04-02] MEDS: ALBUTEROL SO4 2.5/IPRATROPIUM 0.5 INH SOL 3 ML VIAL.NEB. NEB SCH ×4 (07:50→20:52)
[2021-04-02] MEDS: AMINO ACIDS/PROTEIN HYDROLYS 30 ML LIQUID.PKT GT SCH ×2 (08:22→18:23)
[2021-04-02] MEDS: CARVEDILOL 6.25 MG TABLET (FP) GT SCH ×2 (10:30→22:36)
[2021-04-02] MEDS: CARBIDOPA/LEVODOPA 25/100 TABLET (FP) GT SCH ×4 (10:30→22:35)
[2021-04-02] MEDS: PANTOPRAZOLE 40 MG TABLET PO SCH (10:30)
[2021-04-02] MEDS: VITAMIN B COMP W-C 1 EA TABLET (NEPHRO-VITE) PO SCH (10:30)
[2021-04-02] MEDS: ZINC SULFATE 220 MG CAPSULE (FP) GT SCH (10:30)
[2021-04-02] MEDS: hydrALAZINE HCL 25 MG TABLET (FP) GT SCH ×2 (10:30→22:36)
[2021-04-02] MEDS: amLODIPine BESYLATE 10 MG TABLET (FP) GT SCH (10:30)
[2021-04-02] MEDS: levETIRAcetam 500 MG/5 ML ORAL SOLUTION (UNIT-DOSE CUPS) GT SCH ×2 (10:30→22:36)
[2021-04-02] MEDS: CLOPIDOGREL BISULFATE 75 MG TABLET (FP) GT SCH (10:30)
[2021-04-02] MEDS ORDERED: PT OWN MED DRAWER 7, Y5N ONE ×3 (12:17→21:37)
[2021-04-02] MEDS: SODIUM HYPOCHLORITE 0.5% 473 ML- BULK BOTTLE TP SCH (13:35)
[2021-04-02] MEDS: ACETAMINOPHEN 650 MG/20.3 ML ORAL SOLUTION (CUPS) GT PRN (16:56)
[2021-04-02] MEDS: ATORVASTATIN CA 80 MG TABLET (FP) GT SCH (22:36)
[2021-04-03] MEDS: INSULIN SLIDING SCALE (NOVOLOG) 1 VIAL SQ SCH ×4 (06:01→23:00)
[2021-04-03] MEDS: TOPIRAMATE 100 MG TABLET GT SCH ×2 (06:04→22:26)
[2021-04-03] MEDS: ALBUTEROL SO4 2.5/IPRATROPIUM 0.5 INH SOL 3 ML VIAL.NEB. NEB SCH ×4 (07:20→20:41)
[2021-04-03] MEDS: AMINO ACIDS/PROTEIN HYDROLYS 30 ML LIQUID.PKT GT SCH ×3 (08:18→18:00)
[2021-04-03] MEDS: CLOPIDOGREL BISULFATE 75 MG TABLET (FP) GT SCH (10:31)
[2021-04-03] MEDS: amLODIPine BESYLATE 10 MG TABLET (FP) GT SCH (13:19)
[2021-04-03] MEDS: CARVEDILOL 6.25 MG TABLET (FP) GT SCH ×2 (13:19→22:22)
[2021-04-03] MEDS: levETIRAcetam 500 MG/5 ML ORAL SOLUTION (UNIT-DOSE CUPS) GT SCH ×2 (13:19→22:23)
[2021-04-03] MEDS: hydrALAZINE HCL 25 MG TABLET (FP) GT SCH ×2 (13:19→22:22)
[2021-04-03] MEDS: VITAMIN B COMP W-C 1 EA TABLET (NEPHRO-VITE) PO SCH (13:19)
[2021-04-03] MEDS: SODIUM HYPOCHLORITE 0.5% 473 ML- BULK BOTTLE TP SCH (13:19)
[2021-04-03] MEDS: CARBIDOPA/LEVODOPA 25/100 TABLET (FP) GT SCH ×3 (13:21→22:24)
[2021-04-03] MEDS: PANTOPRAZOLE 40 MG TABLET PO SCH (13:21)
[2021-04-03] MEDS: ZINC SULFATE 220 MG CAPSULE (FP) GT SCH (13:21)
[2021-04-03] MEDS ORDERED: PT OWN MED DRAWER 7, Y5N ONE ×2 (14:05→21:20)
[2021-04-03] MEDS ORDERED: SODIUM CHLORIDE 250 ML IV PRN (15:31)
[2021-04-03] MEDS ORDERED: EPOETIN ALFA-EPBX 10,000 UNIT/ML VIAL SQ ONE (15:45)
[2021-04-03 17:37] LABS: HEMATOCRIT 26.1 % (32.4-45.2); HEMOGLOBIN 8.1 GM/dL (10.7-15.3); MCH 29.2 pg (25.7-33.7); MCHC 30.9 g/dl (32.0-36.0); MEAN CELL VOLUME 94.2 fl (80-96); MEAN PLT VOLUME 8.9 fl (7.5-11.1); PLATELET COUNT 200 10^3/uL (134-434); RBC 2.77 M/mm3 (3.60-5.2); RDW 17.8 % (11.6-15.6); WHITE BLOOD COUNT 25.8 K/mm3 (4.0-10.0)
[2021-04-03 17:54] LABS: CHLORIDE 100 mmol/L (98-107); SODIUM 140 mmol/L (136-145)
[2021-04-03 17:56] LABS: CALCIUM 8.8 mg/dL (8.5-10.1)
[2021-04-03 17:57] LABS: ALBUMIN 1.8 g/dl (3.4-5.0); BLOOD UREA NITROGEN 18.5 mg/dL (7-18); CO2 32 mmol/L (21-32); GLUCOSE,RANDOM 132 mg/dL (74-106)
[2021-04-03 18:00] LABS: SGOT/AST 11 U/L (15-37); SGPT/ALT < 6 U/L (13-61)
[2021-04-03 18:02] LABS: BILIRUBIN,TOTAL 0.3 mg/dL (0.2-1); TOT PROT 5.5 g/dl (6.4-8.2)
[2021-04-03 18:03] LABS: ALK PHOS 83 U/L (45-117)
[2021-04-03 18:10] LABS: ANION GAP 8 MMOL/L (8-16)
[2021-04-03] MEDS ORDERED: POTASSIUM CHLORIDE TABS 20 MEQ TABLET.ER (FP) PO ONE (18:35)
[2021-04-03] MEDS: ATORVASTATIN CA 80 MG TABLET (FP) GT SCH (22:23)
[2021-04-03] MEDS: ACETAMINOPHEN 650 MG/20.3 ML ORAL SOLUTION (CUPS) GT PRN (22:23)
[2021-04-03] MEDS ORDERED: POTASSIUM CHLORIDE ORAL LIQUID 20 MEQ/15 ML PO ONE (22:30)
[2021-04-04] MEDS ORDERED: LORazepam 2 MG/ML SDV VIAL IVPUSH ONE (03:22)
[2021-04-04] MEDS ORDERED: ACETAMINOPHEN 1000 MG/100 ML BAG IVPB ONE ×2 (03:23→04:47)
[2021-04-04] MEDS: KCL 10 MEQ IVPB 10 MEQ/100 ML INFUS.BAG IVPB SCH (04:09)
[2021-04-04] MEDS: SODIUM HYPOCHLORITE 0.5% 473 ML- BULK BOTTLE TP SCH (06:30)
[2021-04-04] MEDS: INSULIN SLIDING SCALE (NOVOLOG) 1 VIAL SQ SCH ×4 (07:01→21:57)
[2021-04-04] MEDS: TOPIRAMATE 100 MG TABLET GT SCH ×2 (07:01→21:55)
[2021-04-04] MEDS: ALBUTEROL SO4 2.5/IPRATROPIUM 0.5 INH SOL 3 ML VIAL.NEB. NEB SCH ×4 (07:25→20:05)
[2021-04-04] MEDS: AMINO ACIDS/PROTEIN HYDROLYS 30 ML LIQUID.PKT GT SCH ×3 (08:00→18:35)
[2021-04-04] MEDS: VITAMIN B COMP W-C 1 EA TABLET (NEPHRO-VITE) PO SCH (09:00)
[2021-04-04] MEDS: PANTOPRAZOLE 40 MG TABLET PO SCH (09:00)
[2021-04-04] MEDS: CARBIDOPA/LEVODOPA 25/100 TABLET (FP) GT SCH ×4 (09:00→21:54)
[2021-04-04] MEDS: CARVEDILOL 6.25 MG TABLET (FP) GT SCH ×2 (09:00→21:08)
[2021-04-04] MEDS: ZINC SULFATE 220 MG CAPSULE (FP) GT SCH (09:00)
[2021-04-04] MEDS: amLODIPine BESYLATE 10 MG TABLET (FP) GT SCH (09:00)
[2021-04-04] MEDS: CLOPIDOGREL BISULFATE 75 MG TABLET (FP) GT SCH (09:00)
[2021-04-04] MEDS: levETIRAcetam 500 MG/5 ML ORAL SOLUTION (UNIT-DOSE CUPS) GT SCH ×2 (09:00→21:55)
[2021-04-04] MEDS: hydrALAZINE HCL 25 MG TABLET (FP) GT SCH ×2 (09:00→21:07)
[2021-04-04] MEDS ORDERED: ACETAMINOPHEN INJECTION 100 ML IVPB ONE (09:29)
[2021-04-04] MEDS ORDERED: DEXTROSE 5%-WATER 100 ML IVPB ONE ×2 (09:30→13:11)
[2021-04-04] MEDS ORDERED: CEFEPIME HCL 1 GM VIAL (RESTRICTED TO ID) ONE (09:30)
[2021-04-04] MEDS ORDERED: CEFEPIME 1 GM in DEXTROSE 5%-WATER 1 GM/100 ML BAG IVPB ONE (10:00)
[2021-04-04] MEDS ORDERED: PT OWN MED DRAWER 7, Y5N ONE (10:02)
[2021-04-04] MEDS ORDERED: MEROPENEM 1 GM in DEXTROSE 5%-WATER 100 ML IVPB ONE (12:09)
[2021-04-04] MEDS ORDERED: MEROPENEM 1 GM VIAL (RESTRICTED TO ID) IVPB ONE (13:11)
[2021-04-04] MEDS: VANCOMYCIN 1 GRAM (PRE-DOCKED) 1,000 MG/250 ML BAG IVPB ONE ×2 (13:22→16:34)
[2021-04-04] MEDS ORDERED: ROCURONIUM BROMIDE 50 MG/5 ML VIAL IV ONE (13:58)
[2021-04-04] MEDS ORDERED: ETOMIDATE 40 MG/20 ML VIAL IVPUSH ONE (13:59)
[2021-04-04] MEDS ORDERED: RAPID SEQUENCE INTUBATION KIT NR ONE (14:05)
[2021-04-04] MEDS ORDERED: NOREPINEPHRINE BITARTRATE 4 MG/4 ML ML IV ONE (14:09)
[2021-04-04 14:20] LABS: HEMATOCRIT 28.4 % (32.4-45.2); HEMOGLOBIN 8.5 GM/dL (10.7-15.3); MCH 28.8 pg (25.7-33.7); MCHC 29.9 g/dl (32.0-36.0); MEAN CELL VOLUME 96.3 fl (80-96); MEAN PLT VOLUME 9.5 fl (7.5-11.1); PLATELET COUNT 173 10^3/uL (134-434); RBC 2.95 M/mm3 (3.60-5.2); RDW 18.1 % (11.6-15.6)
[2021-04-04 14:29] LABS: CALCIUM 9.1 mg/dL (8.5-10.1)
[2021-04-04 14:30] LABS: ALBUMIN 1.9 g/dl (3.4-5.0)
[2021-04-04 14:33] LABS: CREATININE 2.4 mg/dL (0.55-1.3)
[2021-04-04 14:35] LABS: BILIRUBIN,TOTAL 0.3 mg/dL (0.2-1); TOT PROT 5.7 g/dl (6.4-8.2)
[2021-04-04 14:53] LABS: WHITE BLOOD COUNT 32.1 K/mm3 (4.0-10.0)
[2021-04-04] MEDS: NOREPINEPHRINE BITARTRATE 16,000 MCG in SODIUM CHLORIDE 484 ML IV SCH (14:57)
[2021-04-04] MEDS: FENTANYL NS IVPB 500 MCG/100 ML BAG IVPB SCH ×2 (14:58→22:06)
[2021-04-04 16:12] LABS: ARTERIAL BLOOD GAS BASE EXCESS -1.3 mmol/L (-2-2); ARTERIAL BLOOD GAS PO2 54.8 mmHg (80-100); ARTERIAL BLOOD GAS pH 7.354 (7.350-7.450)
[2021-04-04 16:16] LABS: ALLENS TEST POSITIVE
[2021-04-04 16:17] LABS: VENT MODE A/C; VENT RATE 20
[2021-04-04 16:22] LABS: ANISOCYTOSIS 0; HELMET CELLS 0; HOWELL-JOLLY BODIES 0; MACROCYTOSIS 0; OVALOCYTE 0; PLATELET ESTIMATE NORMAL; ROULEAU 0; SICKELED CELLS 0; TARGET CELLS 0; TEAR DROP CELLS 0; TOXIC GRANULATION 0
[2021-04-04] MEDS: ATORVASTATIN CA 80 MG TABLET (FP) GT SCH (21:54)
[2021-04-05] MEDS ORDERED: PHENYLEPHRINE HCL 10 MG/1 ML SINGLE DOSE VIAL ONE (02:06)
[2021-04-05] MEDS ORDERED: LACTATED RINGERS SOLUTION 1000 ML INFUS.BAG IV ONE (02:09)
[2021-04-05] MEDS ORDERED: SODIUM CHLORIDE 500 ML IV STA ×2 (02:10→04:53)
[2021-04-05] MEDS: PHENYLEPHRINE NS PREMIX 50,000 MCG/500 ML BAG IVPB SCH ×3 (02:30→13:15)
[2021-04-05] MEDS: FLUDROCORTISONE ACETATE 0.1 MG TABLET (FP) GT SCH ×2 (02:45→09:41)
[2021-04-05] MEDS: HYDROCORTISONE SOD SUCCINATE 100 MG/2 ML VIAL IVPB SCH ×3 (02:45→17:32)
[2021-04-05] MEDS: VASOPRESSIN 40 UNITS in SODIUM CHLORIDE 98 ML IVPB SCH ×3 (03:16→14:48)
[2021-04-05] MEDS ORDERED: PT OWN MED DRAWER 7, Y5N ONE ×4 (05:58→21:12)
[2021-04-05] MEDS: INSULIN SLIDING SCALE (NOVOLOG) 1 VIAL SQ SCH ×4 (06:37→21:52)
[2021-04-05 07:08] LABS: HEMATOCRIT 28.1 % (32.4-45.2); HEMOGLOBIN 8.3 GM/dL (10.7-15.3); MCH 28.7 pg (25.7-33.7); MCHC 29.6 g/dl (32.0-36.0); MEAN CELL VOLUME 96.9 fl (80-96); MEAN PLT VOLUME 10.1 fl (7.5-11.1); PLATELET COUNT 264 10^3/uL (134-434); RBC 2.89 M/mm3 (3.60-5.2)
[2021-04-05] MEDS: TOPIRAMATE 100 MG TABLET GT SCH ×3 (07:11→21:41)
[2021-04-05 07:18] LABS: ALBUMIN 1.8 g/dl (3.4-5.0); BLOOD UREA NITROGEN 27.4 mg/dL (7-18); CALCIUM 9.2 mg/dL (8.5-10.1); MAGNESIUM 1.9 mg/dL (1.8-2.4)
[2021-04-05 07:19] LABS: CREATININE 2.8 mg/dL (0.55-1.3); PHOSPHOROUS 3.2 mg/dL (2.5-4.9)
[2021-04-05 07:20] LABS: WHITE BLOOD COUNT 39.2 K/mm3 (4.0-10.0)
[2021-04-05 07:21] LABS: BILIRUBIN,TOTAL 0.4 mg/dL (0.2-1); TOT PROT 5.6 g/dl (6.4-8.2)
[2021-04-05] MEDS: AMINO ACIDS/PROTEIN HYDROLYS 30 ML LIQUID.PKT GT SCH ×3 (07:56→17:33)
[2021-04-05] MEDS: ALBUTEROL SO4 2.5/IPRATROPIUM 0.5 INH SOL 3 ML VIAL.NEB. NEB SCH ×3 (08:14→15:00)
[2021-04-05] MEDS: FENTANYL NS IVPB 500 MCG/100 ML BAG IVPB SCH ×4 (08:17→20:23)
[2021-04-05 08:44] LABS: ANISOCYTOSIS 2+; MACROCYTOSIS 0; OVALOCYTE 1+; PLATELET ESTIMATE NORMAL; TARGET CELLS 1+; TOXIC GRANULATION 2+
[2021-04-05] MEDS ORDERED: MEROPENEM 1 GM VIAL (RESTRICTED TO ID) IVPB ONE (09:24)
[2021-04-05] MEDS ORDERED: DEXTROSE 5%-WATER 100 ML IVPB ONE (09:25)
[2021-04-05] MEDS: levETIRAcetam 500 MG/5 ML ORAL SOLUTION (UNIT-DOSE CUPS) GT SCH ×2 (09:40→21:40)
[2021-04-05] MEDS: CLOPIDOGREL BISULFATE 75 MG TABLET (FP) GT SCH (09:41)
[2021-04-05] MEDS: CARBIDOPA/LEVODOPA 25/100 TABLET (FP) GT SCH ×4 (09:43→21:41)
[2021-04-05] MEDS: ZINC SULFATE 220 MG CAPSULE (FP) GT SCH (09:43)
[2021-04-05] MEDS: VITAMIN B COMP W-C 1 EA TABLET (NEPHRO-VITE) PO SCH (09:43)
[2021-04-05] MEDS: hydrALAZINE HCL 25 MG TABLET (FP) GT SCH (09:56)
[2021-04-05] MEDS: amLODIPine BESYLATE 10 MG TABLET (FP) GT SCH (09:57)
[2021-04-05] MEDS: CARVEDILOL 6.25 MG TABLET (FP) GT SCH (09:57)
[2021-04-05] MEDS ORDERED: MEROPENEM 1 GM in DEXTROSE 5%-WATER 100 ML IVPB SCH (10:00)
[2021-04-05] MEDS ORDERED: CEFEPIME 1 GM in DEXTROSE 5%-WATER 1 GM/100 ML BAG IVPB SCH (10:00)
[2021-04-05] MEDS ORDERED: PANTOPRAZOLE 40 MG TABLET PO SCH (10:00)
[2021-04-05] MEDS: SODIUM HYPOCHLORITE 0.5% 473 ML- BULK BOTTLE TP SCH (10:09)
[2021-04-05] MEDS: PANTOPRAZOLE SODIUM 40 MG VIAL IVPUSH SCH (12:48)
[2021-04-05] MEDS: NOREPINEPHRINE BITARTRATE 16,000 MCG in SODIUM CHLORIDE 484 ML IV SCH ×2 (13:57→13:59)
[2021-04-05] MEDS ORDERED: ENOXAPARIN NA (PORCINE) 40 MG/0.4 ML DISP.SYRIN SQ SCH (19:30)
[2021-04-05] MEDS: ATORVASTATIN CA 80 MG TABLET (FP) GT SCH (21:40)
[2021-04-05] MEDS ORDERED: TOPIRAMATE 200 MG, TOPIRAMATE 100 MG GT ONE (21:45)
[2021-04-06] MEDS: HYDROCORTISONE SOD SUCCINATE 100 MG/2 ML VIAL IVPB SCH ×3 (01:01→17:48)
[2021-04-06] MEDS: VASOPRESSIN 40 UNITS in SODIUM CHLORIDE 98 ML IVPB SCH ×2 (01:01→14:50)
[2021-04-06] MEDS: FENTANYL NS IVPB 500 MCG/100 ML BAG IVPB SCH ×4 (01:30→17:50)
[2021-04-06] MEDS: PHENYLEPHRINE NS PREMIX 50,000 MCG/500 ML BAG IVPB SCH (06:45)
[2021-04-06] MEDS: INSULIN SLIDING SCALE (NOVOLOG) 1 VIAL SQ SCH ×4 (06:46→23:25)
[2021-04-06] MEDS: HEPARIN NA (PORCINE) 5,000 UNITS/ML 1ML VIAL SQ SCH ×3 (06:46→23:11)
[2021-04-06] MEDS: TOPIRAMATE 100 MG TABLET GT SCH ×2 (06:47→23:11)
[2021-04-06 06:57] LABS: HEMATOCRIT 23.9 % (32.4-45.2); HEMOGLOBIN 7.3 GM/dL (10.7-15.3); MCHC 30.7 g/dl (32.0-36.0); MEAN CELL VOLUME 94.6 fl (80-96); MEAN PLT VOLUME 8.9 fl (7.5-11.1); PLATELET COUNT 195 10^3/uL (134-434); RBC 2.52 M/mm3 (3.60-5.2); RDW 18.1 % (11.6-15.6)
[2021-04-06] MEDS ORDERED: TOPIRAMATE 25 MG TABLET PO ONE (07:00)
[2021-04-06 07:01] LABS: WHITE BLOOD COUNT 35.6 K/mm3 (4.0-10.0)
[2021-04-06 07:04] LABS: VENOUS BASE EXCESS -0.2 mmol/L (-2-2); VENOUS O2 SATURATION 99.3 % (70-80); VENOUS PCO2 48.9 mmHg (38-52); VENOUS PH 7.339 (7.310-7.410)
[2021-04-06 07:28] LABS: CALCIUM 9.2 mg/dL (8.5-10.1)
[2021-04-06 07:29] LABS: ALBUMIN 1.8 g/dl (3.4-5.0); BLOOD UREA NITROGEN 39.3 mg/dL (7-18)
[2021-04-06 07:32] LABS: CREATININE 3.2 mg/dL (0.55-1.3); PHOSPHOROUS 3.6 mg/dL (2.5-4.9)
[2021-04-06 07:33] LABS: BILIRUBIN,TOTAL 0.5 mg/dL (0.2-1); TOT PROT 5.4 g/dl (6.4-8.2)
[2021-04-06] MEDS ORDERED: SODIUM CHLORIDE 250 ML IV PRN (09:02)
[2021-04-06] MEDS ORDERED: EPOETIN ALFA-EPBX 10,000 UNIT/ML VIAL SQ ONE (09:02)
[2021-04-06 09:24] LABS: ANISOCYTOSIS 0; HELMET CELLS 0; HOWELL-JOLLY BODIES 0; MACROCYTOSIS 0; OVALOCYTE 0; PLATELET ESTIMATE NORMAL; ROULEAU 0; SICKELED CELLS 0; TARGET CELLS 0; TEAR DROP CELLS 0; TOXIC GRANULATION 0
[2021-04-06] MEDS: AMINO ACIDS/PROTEIN HYDROLYS 30 ML LIQUID.PKT GT SCH ×3 (09:46→17:48)
[2021-04-06] MEDS: SODIUM HYPOCHLORITE 0.5% 473 ML- BULK BOTTLE TP SCH (10:38)
[2021-04-06] MEDS: VITAMIN B COMP W-C 1 EA TABLET (NEPHRO-VITE) PO SCH (10:38)
[2021-04-06] MEDS: FLUDROCORTISONE ACETATE 0.1 MG TABLET (FP) GT SCH (10:38)
[2021-04-06] MEDS: ZINC SULFATE 220 MG CAPSULE (FP) GT SCH (10:38)
[2021-04-06] MEDS: CLOPIDOGREL BISULFATE 75 MG TABLET (FP) GT SCH (10:38)
[2021-04-06] MEDS: PANTOPRAZOLE SODIUM 40 MG VIAL IVPUSH SCH (10:38)
[2021-04-06] MEDS: CARBIDOPA/LEVODOPA 25/100 TABLET (FP) GT SCH ×4 (10:39→23:11)
[2021-04-06] MEDS ORDERED: PT OWN MED DRAWER 7, Y5N ONE ×3 (10:41→21:29)
[2021-04-06] MEDS: levETIRAcetam 500 MG/5 ML ORAL SOLUTION (UNIT-DOSE CUPS) GT SCH ×2 (10:45→23:11)
[2021-04-06] MEDS: NOREPINEPHRINE BITARTRATE 16,000 MCG in SODIUM CHLORIDE 484 ML IV SCH ×2 (14:11→16:21)
[2021-04-06] MEDS ORDERED: RAPID SEQUENCE INTUBATION KIT NR ONE (21:29)
[2021-04-06] MEDS: ATORVASTATIN CA 80 MG TABLET (FP) GT SCH (23:11)
[2021-04-07] MEDS: HYDROCORTISONE SOD SUCCINATE 100 MG/2 ML VIAL IVPB SCH ×3 (02:45→17:46)
[2021-04-07] MEDS: PHENYLEPHRINE HCL 50,000 MCG in SODIUM CHLORIDE 50,000 MCG/500 ML INFUS.BAG IV SCH (05:58)
[2021-04-07] MEDS: VASOPRESSIN 40 UNITS in SODIUM CHLORIDE 98 ML IVPB SCH (05:59)
[2021-04-07] MEDS: TOPIRAMATE 100 MG TABLET GT SCH ×2 (06:00→21:43)
[2021-04-07] MEDS: INSULIN SLIDING SCALE (NOVOLOG) 1 VIAL SQ SCH ×4 (06:00→21:54)
[2021-04-07] MEDS: HEPARIN NA (PORCINE) 5,000 UNITS/ML 1ML VIAL SQ SCH ×3 (06:00→21:42)
[2021-04-07 07:16] LABS: HEMATOCRIT 23.4 % (32.4-45.2); MCH 28.3 pg (25.7-33.7); MCHC 29.9 g/dl (32.0-36.0); MEAN CELL VOLUME 94.7 fl (80-96); MEAN PLT VOLUME 9.9 fl (7.5-11.1); PLATELET COUNT 182 10^3/uL (134-434); RBC 2.47 M/mm3 (3.60-5.2)
[2021-04-07 07:25] LABS: CHLORIDE 102 mmol/L (98-107); SODIUM 140 mmol/L (136-145)
[2021-04-07 07:27] LABS: CALCIUM 8.7 mg/dL (8.5-10.1)
[2021-04-07 07:28] LABS: ALBUMIN 1.8 g/dl (3.4-5.0); BLOOD UREA NITROGEN 36.9 mg/dL (7-18); CO2 25 mmol/L (21-32); GLUCOSE,RANDOM 145 mg/dL (74-106); MAGNESIUM 1.8 mg/dL (1.8-2.4)
[2021-04-07 07:30] LABS: SGPT/ALT 24 U/L (13-61)
[2021-04-07 07:31] LABS: CREATININE 2.4 mg/dL (0.55-1.3); PHOSPHOROUS 2.3 mg/dL (2.5-4.9); SGOT/AST 66 U/L (15-37)
[2021-04-07 07:32] LABS: BILIRUBIN,TOTAL 0.6 mg/dL (0.2-1); TOT PROT 5.3 g/dl (6.4-8.2)
[2021-04-07 07:33] LABS: ALK PHOS 90 U/L (45-117)
[2021-04-07 07:59] LABS: ANION GAP 12 MMOL/L (8-16)
[2021-04-07] MEDS: AMINO ACIDS/PROTEIN HYDROLYS 30 ML LIQUID.PKT GT SCH ×3 (08:38→18:10)
[2021-04-07 10:13] LABS: ANISOCYTOSIS 1+; MACROCYTOSIS 0; PLATELET ESTIMATE NORMAL
[2021-04-07] MEDS: PANTOPRAZOLE SODIUM 40 MG VIAL IVPUSH SCH (10:23)
[2021-04-07] MEDS: KCL 10 MEQ IVPB 10 MEQ/100 ML INFUS.BAG IVPB SCH ×2 (10:23→11:03)
[2021-04-07] MEDS: CARBIDOPA/LEVODOPA 25/100 TABLET (FP) GT SCH ×4 (10:24→21:42)
[2021-04-07] MEDS: FLUDROCORTISONE ACETATE 0.1 MG TABLET (FP) GT SCH (10:24)
[2021-04-07] MEDS: CLOPIDOGREL BISULFATE 75 MG TABLET (FP) GT SCH (10:24)
[2021-04-07] MEDS: VITAMIN B COMP W-C 1 EA TABLET (NEPHRO-VITE) PO SCH (10:24)
[2021-04-07] MEDS: ZINC SULFATE 220 MG CAPSULE (FP) GT SCH (10:24)
[2021-04-07] MEDS: FENTANYL NS IVPB 500 MCG/100 ML BAG IVPB SCH (10:32)
[2021-04-07] MEDS: SODIUM HYPOCHLORITE 0.5% 473 ML- BULK BOTTLE TP SCH (10:34)
[2021-04-07] MEDS: levETIRAcetam 500 MG/5 ML ORAL SOLUTION (UNIT-DOSE CUPS) GT SCH ×2 (10:44→21:42)
[2021-04-07] MEDS: NOREPINEPHRINE BITARTRATE 16,000 MCG in SODIUM CHLORIDE 484 ML IV SCH (14:43)
[2021-04-07] MEDS: ATORVASTATIN CA 80 MG TABLET (FP) GT SCH (21:42)
[2021-04-07] MEDS ORDERED: POTASSIUM CHLORIDE ORAL LIQUID 20 MEQ/15 ML PO ONE (22:23)
[2021-04-07] MEDS ORDERED: POTASSIUM CHLORIDE ORAL LIQUID 20 MEQ/15 ML GT ONE (22:23)
[2021-04-07] MEDS ORDERED: POTASSIUM CHLORIDE 20 MEQ PREMIX IVPB 100 ML IVPB ONE (22:24)
[2021-04-08] MEDS: HYDROCORTISONE SOD SUCCINATE 100 MG/2 ML VIAL IVPB SCH ×3 (02:25→20:18)
[2021-04-08] MEDS: VASOPRESSIN 40 UNITS in SODIUM CHLORIDE 98 ML IVPB SCH (03:06)
[2021-04-08] MEDS: PHENYLEPHRINE HCL 50,000 MCG in SODIUM CHLORIDE 50,000 MCG/500 ML INFUS.BAG IV SCH (03:06)
[2021-04-08] MEDS: HEPARIN NA (PORCINE) 5,000 UNITS/ML 1ML VIAL SQ SCH ×3 (06:32→22:24)
[2021-04-08 07:13] LABS: ALBUMIN 1.8 g/dl (3.4-5.0); BLOOD UREA NITROGEN 55.8 mg/dL (7-18); CALCIUM 8.6 mg/dL (8.5-10.1); HEMOGLOBIN 7.2 GM/dL (10.7-15.3); MAGNESIUM 1.8 mg/dL (1.8-2.4); MCH 28.1 pg (25.7-33.7); MCHC 30.2 g/dl (32.0-36.0); MEAN CELL VOLUME 93.3 fl (80-96); MEAN PLT VOLUME 9.9 fl (7.5-11.1); PLATELET COUNT 163 10^3/uL (134-434); RBC 2.57 M/mm3 (3.60-5.2); RDW 17.9 % (11.6-15.6); WHITE BLOOD COUNT 22.9 K/mm3 (4.0-10.0)
[2021-04-08 07:16] LABS: CREATININE 2.7 mg/dL (0.55-1.3); PHOSPHOROUS 2.6 mg/dL (2.5-4.9)
[2021-04-08 07:18] LABS: BILIRUBIN,TOTAL 0.4 mg/dL (0.2-1)
[2021-04-08] MEDS: TOPIRAMATE 100 MG TABLET GT SCH ×2 (07:24→22:23)
[2021-04-08] MEDS: INSULIN SLIDING SCALE (NOVOLOG) 1 VIAL SQ SCH ×4 (07:24→22:15)
[2021-04-08] MEDS: AMINO ACIDS/PROTEIN HYDROLYS 30 ML LIQUID.PKT GT SCH ×3 (08:00→17:46)
[2021-04-08 09:45] LABS: ANISOCYTOSIS 2+; MACROCYTOSIS 1+; OVALOCYTE 1+; PLATELET ESTIMATE DECREASED; TARGET CELLS 1+; TEAR DROP CELLS 1+; TOXIC GRANULATION 2+
[2021-04-08] MEDS: ZINC SULFATE 220 MG CAPSULE (FP) GT SCH (10:00)
[2021-04-08] MEDS ORDERED: EPOETIN ALFA-EPBX 10,000 UNIT/ML VIAL IVPUSH ONE (10:00)
[2021-04-08] MEDS: levETIRAcetam 500 MG/5 ML ORAL SOLUTION (UNIT-DOSE CUPS) GT SCH ×2 (10:00→22:23)
[2021-04-08] MEDS ORDERED: SODIUM CHLORIDE 250 ML IV PRN (10:00)
[2021-04-08] MEDS: CARBIDOPA/LEVODOPA 25/100 TABLET (FP) GT SCH ×4 (10:00→22:23)
[2021-04-08] MEDS: PANTOPRAZOLE SODIUM 40 MG VIAL IVPUSH SCH (10:00)
[2021-04-08] MEDS: FLUDROCORTISONE ACETATE 0.1 MG TABLET (FP) GT SCH (10:00)
[2021-04-08] MEDS: SODIUM HYPOCHLORITE 0.5% 473 ML- BULK BOTTLE TP SCH (10:00)
[2021-04-08] MEDS: CLOPIDOGREL BISULFATE 75 MG TABLET (FP) GT SCH (10:00)
[2021-04-08] MEDS: VITAMIN B COMP W-C 1 EA TABLET (NEPHRO-VITE) PO SCH (10:00)
[2021-04-08] MEDS: NOREPINEPHRINE BITARTRATE 16,000 MCG in SODIUM CHLORIDE 484 ML IV SCH (14:00)
[2021-04-08] MEDS ORDERED: POTASSIUM CHLORIDE 20 MEQ PREMIX IVPB 100 ML IVPB ONE (21:45)
[2021-04-08] MEDS ORDERED: POTASSIUM CHLORIDE ORAL LIQUID 20 MEQ/15 ML GT ONE (21:45)
[2021-04-08 21:46] LABS: CALCIUM 8.7 mg/dL (8.5-10.1)
[2021-04-08 21:47] LABS: ALBUMIN 1.8 g/dl (3.4-5.0); BLOOD UREA NITROGEN 31.9 mg/dL (7-18)
[2021-04-08] MEDS ORDERED: MAGNESIUM 1GM/D5W 100ML - 100 ML IVPB IVPB ONE (21:47)
[2021-04-08 21:50] LABS: CREATININE 1.7 mg/dL (0.55-1.3)
[2021-04-08 21:52] LABS: BILIRUBIN,TOTAL 0.6 mg/dL (0.2-1); TOT PROT 5.1 g/dl (6.4-8.2)
[2021-04-08 22:16] LABS: MAGNESIUM 1.9 mg/dL (1.8-2.4)
[2021-04-08 22:19] LABS: PHOSPHOROUS 1.5 mg/dL (2.5-4.9)
[2021-04-08] MEDS: ATORVASTATIN CA 80 MG TABLET (FP) GT SCH (22:24)
[2021-04-09] MEDS: INSULIN SLIDING SCALE (NOVOLOG) 1 VIAL SQ SCH ×4 (07:19→23:17)
[2021-04-09] MEDS: TOPIRAMATE 100 MG TABLET GT SCH ×2 (07:21→22:17)
[2021-04-09] MEDS: HEPARIN NA (PORCINE) 5,000 UNITS/ML 1ML VIAL SQ SCH ×3 (07:21→22:15)
[2021-04-09 07:43] LABS: BASO % 0.2 % (0-2.0); EOS % 0.2 % (0-4.5); HEMATOCRIT 25.3 % (32.4-45.2); HEMOGLOBIN 7.7 GM/dL (10.7-15.3); LYMPH % 7.6 % (8-40); MCH 28.8 pg (25.7-33.7); MCHC 30.6 g/dl (32.0-36.0); MEAN PLT VOLUME 9.8 fl (7.5-11.1); MONO % 2.9 % (3.8-10.2); NEUT % 89.1 % (42.8-82.8); PLATELET COUNT 173 10^3/uL (134-434); RBC 2.69 M/mm3 (3.60-5.2); RDW 18.1 % (11.6-15.6); WHITE BLOOD COUNT 19.8 K/mm3 (4.0-10.0)
[2021-04-09 07:58] LABS: CALCIUM 8.9 mg/dL (8.5-10.1)
[2021-04-09 07:59] LABS: ALBUMIN 1.9 g/dl (3.4-5.0); BLOOD UREA NITROGEN 36.2 mg/dL (7-18); MAGNESIUM 2.1 mg/dL (1.8-2.4)
[2021-04-09 08:02] LABS: PHOSPHOROUS 1.4 mg/dL (2.5-4.9)
[2021-04-09 08:03] LABS: TOT PROT 5.4 g/dl (6.4-8.2)
[2021-04-09 08:04] LABS: BILIRUBIN,TOTAL 0.4 mg/dL (0.2-1)
[2021-04-09] MEDS: AMINO ACIDS/PROTEIN HYDROLYS 30 ML LIQUID.PKT GT SCH ×3 (08:10→17:48)
[2021-04-09] MEDS: SODIUM HYPOCHLORITE 0.5% 473 ML- BULK BOTTLE TP SCH (09:10)
[2021-04-09] MEDS ORDERED: ROCURONIUM BROMIDE 50 MG/5 ML VIAL IVPUSH ONE (10:00)
[2021-04-09] MEDS: levETIRAcetam 500 MG/5 ML ORAL SOLUTION (UNIT-DOSE CUPS) GT SCH ×2 (10:10→22:15)
[2021-04-09] MEDS: CLOPIDOGREL BISULFATE 75 MG TABLET (FP) GT SCH (10:11)
[2021-04-09] MEDS: CARBIDOPA/LEVODOPA 25/100 TABLET (FP) GT SCH ×4 (10:11→22:16)
[2021-04-09] MEDS: VITAMIN B COMP W-C 1 EA TABLET (NEPHRO-VITE) PO SCH (10:11)
[2021-04-09] MEDS: ZINC SULFATE 220 MG CAPSULE (FP) GT SCH (10:11)
[2021-04-09] MEDS: PANTOPRAZOLE SODIUM 40 MG VIAL IVPUSH SCH (10:11)
[2021-04-09] MEDS ORDERED: PROPOFOL 1,000,000 MCG/100 ML VIAL ONE (10:41)
[2021-04-09] MEDS ORDERED: MIDAZOLAM HCL 5 MG/1 ML Single Dose Vial ONE (10:42)
[2021-04-09] MEDS ORDERED: MIDAZOLAM HCL 5 MG/1 ML Single Dose Vial IVPUSH ONE (12:15)
[2021-04-09] MEDS ORDERED: NAPH,MB-DB/K PH,MBDB POWDER PACKET GT ONE (15:00)
[2021-04-09] MEDS ORDERED: SODIUM CHLORIDE 250 ML IV PRN (15:34)
[2021-04-09] MEDS: ATORVASTATIN CA 80 MG TABLET (FP) GT SCH (22:15)
[2021-04-10] MEDS: HEPARIN NA (PORCINE) 5,000 UNITS/ML 1ML VIAL SQ SCH ×3 (07:11→21:20)
[2021-04-10] MEDS: TOPIRAMATE 100 MG TABLET GT SCH ×2 (07:12→21:21)
[2021-04-10] MEDS: INSULIN SLIDING SCALE (NOVOLOG) 1 VIAL SQ SCH ×4 (07:12→21:36)
[2021-04-10] MEDS ORDERED: EPOETIN ALFA-EPBX 10,000 UNIT/ML VIAL IVPUSH ONE (07:30)
[2021-04-10 08:22] LABS: BASO % 0.1 % (0-2.0); EOS % 1.8 % (0-4.5); HEMATOCRIT 25.8 % (32.4-45.2); HEMOGLOBIN 7.9 GM/dL (10.7-15.3); LYMPH % 8.6 % (8-40); MCH 29.2 pg (25.7-33.7); MCHC 30.7 g/dl (32.0-36.0); MEAN CELL VOLUME 95.3 fl (80-96); MEAN PLT VOLUME 9.9 fl (7.5-11.1); MONO % 2.6 % (3.8-10.2); NEUT % 86.9 % (42.8-82.8); PLATELET COUNT 154 10^3/uL (134-434); RDW 18.8 % (11.6-15.6); WHITE BLOOD COUNT 17.5 K/mm3 (4.0-10.0)
[2021-04-10 08:45] LABS: ALBUMIN 1.7 g/dl (3.4-5.0); CALCIUM 8.3 mg/dL (8.5-10.1); MAGNESIUM 1.9 mg/dL (1.8-2.4)
[2021-04-10 08:48] LABS: CREATININE 2.3 mg/dL (0.55-1.3); PHOSPHOROUS 2.1 mg/dL (2.5-4.9)
[2021-04-10 08:49] LABS: BILIRUBIN,TOTAL 0.6 mg/dL (0.2-1)
[2021-04-10] MEDS: AMINO ACIDS/PROTEIN HYDROLYS 30 ML LIQUID.PKT GT SCH ×3 (09:55→17:34)
[2021-04-10] MEDS: CARBIDOPA/LEVODOPA 25/100 TABLET (FP) GT SCH ×4 (09:56→21:21)
[2021-04-10] MEDS: ZINC SULFATE 220 MG CAPSULE (FP) GT SCH (09:56)
[2021-04-10] MEDS: CLOPIDOGREL BISULFATE 75 MG TABLET (FP) GT SCH (09:56)
[2021-04-10] MEDS: levETIRAcetam 500 MG/5 ML ORAL SOLUTION (UNIT-DOSE CUPS) GT SCH ×2 (09:56→21:21)
[2021-04-10] MEDS: VITAMIN B COMP W-C 1 EA TABLET (NEPHRO-VITE) PO SCH (09:56)
[2021-04-10] MEDS: PANTOPRAZOLE SODIUM 40 MG VIAL IVPUSH SCH (09:56)
[2021-04-10] MEDS: SODIUM HYPOCHLORITE 0.5% 473 ML- BULK BOTTLE TP SCH (09:56)
[2021-04-10] MEDS: ATORVASTATIN CA 80 MG TABLET (FP) GT SCH (21:21)
[2021-04-11] MEDS: HEPARIN NA (PORCINE) 5,000 UNITS/ML 1ML VIAL SQ SCH ×3 (06:41→23:16)
[2021-04-11] MEDS: TOPIRAMATE 100 MG TABLET GT SCH ×2 (06:41→23:17)
[2021-04-11] MEDS: INSULIN SLIDING SCALE (NOVOLOG) 1 VIAL SQ SCH ×4 (06:41→23:36)
[2021-04-11 08:20] LABS: MAGNESIUM 1.7 mg/dL (1.8-2.4)
[2021-04-11 08:23] LABS: PHOSPHOROUS 1.6 mg/dL (2.5-4.9)
[2021-04-11] MEDS: PANTOPRAZOLE SODIUM 40 MG VIAL IVPUSH SCH (09:16)
[2021-04-11] MEDS: AMINO ACIDS/PROTEIN HYDROLYS 30 ML LIQUID.PKT GT SCH ×3 (09:16→17:27)
[2021-04-11] MEDS: CARBIDOPA/LEVODOPA 25/100 TABLET (FP) GT SCH ×4 (09:16→23:17)
[2021-04-11] MEDS: ZINC SULFATE 220 MG CAPSULE (FP) GT SCH (09:16)
[2021-04-11] MEDS: levETIRAcetam 500 MG/5 ML ORAL SOLUTION (UNIT-DOSE CUPS) GT SCH ×2 (09:16→23:17)
[2021-04-11] MEDS: VITAMIN B COMP W-C 1 EA TABLET (NEPHRO-VITE) PO SCH (09:16)
[2021-04-11] MEDS: CLOPIDOGREL BISULFATE 75 MG TABLET (FP) GT SCH (09:16)
[2021-04-11] MEDS: SODIUM HYPOCHLORITE 0.5% 473 ML- BULK BOTTLE TP SCH (10:18)
[2021-04-11 22:02] LABS: CALCIUM 8.5 mg/dL (8.5-10.1); MAGNESIUM 1.9 mg/dL (1.8-2.4)
[2021-04-11 22:03] LABS: BLOOD UREA NITROGEN 40.8 mg/dL (7-18)
[2021-04-11 22:06] LABS: PHOSPHOROUS 1.5 mg/dL (2.5-4.9)
[2021-04-11] MEDS: ATORVASTATIN CA 80 MG TABLET (FP) GT SCH (23:17)
[2021-04-12] MEDS ORDERED: POTASSIUM CHLORIDE ORAL LIQUID 20 MEQ/15 ML GT ONE (02:13)
[2021-04-12] MEDS ORDERED: POTASSIUM CHLORIDE 20 MEQ PREMIX IVPB 100 ML IVPB ONE (02:14)
[2021-04-12] MEDS: HEPARIN NA (PORCINE) 5,000 UNITS/ML 1ML VIAL SQ SCH ×3 (06:14→21:50)
[2021-04-12] MEDS: INSULIN SLIDING SCALE (NOVOLOG) 1 VIAL SQ SCH ×4 (06:14→21:52)
[2021-04-12] MEDS: TOPIRAMATE 100 MG TABLET GT SCH ×2 (06:18→21:49)
[2021-04-12] MEDS: AMINO ACIDS/PROTEIN HYDROLYS 30 ML LIQUID.PKT GT SCH ×3 (07:46→16:57)
[2021-04-12 09:20] LABS: HEMATOCRIT 25.8 % (32.4-45.2); HEMOGLOBIN 7.7 GM/dL (10.7-15.3); MCH 28.7 pg (25.7-33.7); MCHC 29.8 g/dl (32.0-36.0); MEAN CELL VOLUME 96.5 fl (80-96); MEAN PLT VOLUME 10.5 fl (7.5-11.1); PLATELET COUNT 149 10^3/uL (134-434); RBC 2.68 M/mm3 (3.60-5.2); RDW 20.8 % (11.6-15.6); WHITE BLOOD COUNT 16.6 K/mm3 (4.0-10.0)
[2021-04-12] MEDS: levETIRAcetam 500 MG/5 ML ORAL SOLUTION (UNIT-DOSE CUPS) GT SCH ×2 (09:36→21:49)
[2021-04-12] MEDS: PANTOPRAZOLE SODIUM 40 MG VIAL IVPUSH SCH (09:37)
[2021-04-12] MEDS: CARBIDOPA/LEVODOPA 25/100 TABLET (FP) GT SCH ×4 (09:37→21:48)
[2021-04-12] MEDS: VITAMIN B COMP W-C 1 EA TABLET (NEPHRO-VITE) PO SCH (09:37)
[2021-04-12] MEDS: ZINC SULFATE 220 MG CAPSULE (FP) GT SCH (09:37)
[2021-04-12] MEDS: SODIUM HYPOCHLORITE 0.5% 473 ML- BULK BOTTLE TP SCH (09:38)
[2021-04-12] MEDS: CLOPIDOGREL BISULFATE 75 MG TABLET (FP) GT SCH (09:38)
[2021-04-12 09:59] LABS: CALCIUM 8.6 mg/dL (8.5-10.1)
[2021-04-12 10:00] LABS: BLOOD UREA NITROGEN 41.1 mg/dL (7-18); MAGNESIUM 1.9 mg/dL (1.8-2.4)
[2021-04-12 10:02] LABS: CREATININE 2.2 mg/dL (0.55-1.3); PHOSPHOROUS 1.3 mg/dL (2.5-4.9)
[2021-04-12] MEDS: ATORVASTATIN CA 80 MG TABLET (FP) GT SCH (21:48)
[2021-04-13] MEDS: HEPARIN NA (PORCINE) 5,000 UNITS/ML 1ML VIAL SQ SCH ×3 (06:48→22:14)
[2021-04-13] MEDS: INSULIN SLIDING SCALE (NOVOLOG) 1 VIAL SQ SCH ×4 (06:48→22:53)
[2021-04-13] MEDS: TOPIRAMATE 100 MG TABLET GT SCH ×2 (06:52→22:14)
[2021-04-13 09:29] LABS: BASO % 0.1 % (0-2.0); EOS % 1.4 % (0-4.5); HEMATOCRIT 24.3 % (32.4-45.2); HEMOGLOBIN 7.2 GM/dL (10.7-15.3); LYMPH % 12.3 % (8-40); MCH 28.8 pg (25.7-33.7); MCHC 29.7 g/dl (32.0-36.0); MEAN CELL VOLUME 97.1 fl (80-96); MEAN PLT VOLUME 10.3 fl (7.5-11.1); MONO % 5.4 % (3.8-10.2); NEUT % 80.8 % (42.8-82.8); PLATELET COUNT 166 10^3/uL (134-434); RBC 2.51 M/mm3 (3.60-5.2); RDW 21.8 % (11.6-15.6); WHITE BLOOD COUNT 16.1 K/mm3 (4.0-10.0)
[2021-04-13 09:43] LABS: ALBUMIN 1.7 g/dl (3.4-5.0); BLOOD UREA NITROGEN 58.8 mg/dL (7-18); CALCIUM 8.4 mg/dL (8.5-10.1)
[2021-04-13 09:47] LABS: CREATININE 2.7 mg/dL (0.55-1.3)
[2021-04-13 09:49] LABS: BILIRUBIN,TOTAL 0.3 mg/dL (0.2-1)
[2021-04-13] MEDS: VITAMIN B COMP W-C 1 EA TABLET (NEPHRO-VITE) PO SCH (11:05)
[2021-04-13] MEDS: ZINC SULFATE 220 MG CAPSULE (FP) GT SCH (11:05)
[2021-04-13] MEDS: CLOPIDOGREL BISULFATE 75 MG TABLET (FP) GT SCH (11:05)
[2021-04-13] MEDS: levETIRAcetam 500 MG/5 ML ORAL SOLUTION (UNIT-DOSE CUPS) GT SCH ×2 (11:05→22:13)
[2021-04-13] MEDS: AMINO ACIDS/PROTEIN HYDROLYS 30 ML LIQUID.PKT GT SCH ×3 (11:05→18:49)
[2021-04-13] MEDS: CARBIDOPA/LEVODOPA 25/100 TABLET (FP) GT SCH ×4 (11:05→22:15)
[2021-04-13] MEDS: PANTOPRAZOLE SODIUM 40 MG VIAL IVPUSH SCH (11:06)
[2021-04-13] MEDS: SODIUM HYPOCHLORITE 0.5% 473 ML- BULK BOTTLE TP SCH (13:16)
[2021-04-13] MEDS ORDERED: SODIUM CHLORIDE 250 ML IV PRN (13:57)
[2021-04-13] MEDS ORDERED: EPOETIN ALFA-EPBX 10,000 UNIT/ML VIAL SQ ONE (14:00)
[2021-04-13 14:39] LABS: ANISOCYTOSIS 2+; MACROCYTOSIS 1+; PLATELET ESTIMATE NORMAL
[2021-04-13] MEDS: ATORVASTATIN CA 80 MG TABLET (FP) GT SCH (22:15)
[2021-04-14] MEDS: HEPARIN NA (PORCINE) 5,000 UNITS/ML 1ML VIAL SQ SCH ×3 (05:28→22:10)
[2021-04-14] MEDS: INSULIN SLIDING SCALE (NOVOLOG) 1 VIAL SQ SCH ×4 (07:10→22:09)
[2021-04-14] MEDS: TOPIRAMATE 100 MG TABLET GT SCH ×2 (07:13→22:11)
[2021-04-14] MEDS: levETIRAcetam 500 MG/5 ML ORAL SOLUTION (UNIT-DOSE CUPS) GT SCH ×2 (09:37→22:10)
[2021-04-14] MEDS: AMINO ACIDS/PROTEIN HYDROLYS 30 ML LIQUID.PKT GT SCH ×4 (09:37→22:10)
[2021-04-14] MEDS: CARBIDOPA/LEVODOPA 25/100 TABLET (FP) GT SCH ×3 (09:38→18:19)
[2021-04-14] MEDS: CLOPIDOGREL BISULFATE 75 MG TABLET (FP) GT SCH (09:38)
[2021-04-14] MEDS: ZINC SULFATE 220 MG CAPSULE (FP) GT SCH (09:38)
[2021-04-14] MEDS: PANTOPRAZOLE SODIUM 40 MG VIAL IVPUSH SCH (09:38)
[2021-04-14] MEDS: VITAMIN B COMP W-C 1 EA TABLET (NEPHRO-VITE) PO SCH (09:38)
[2021-04-14 11:05] LABS: BASO % 0.2 % (0-2.0); EOS % 0.5 % (0-4.5); HEMATOCRIT 24.1 % (32.4-45.2); HEMOGLOBIN 7.2 GM/dL (10.7-15.3); LYMPH % 7.2 % (8-40); MCH 28.5 pg (25.7-33.7); MEAN CELL VOLUME 95.1 fl (80-96); MONO % 7.2 % (3.8-10.2); NEUT % 84.9 % (42.8-82.8); PLATELET COUNT 158 10^3/uL (134-434); RBC 2.53 M/mm3 (3.60-5.2); WHITE BLOOD COUNT 17.3 K/mm3 (4.0-10.0)
[2021-04-14] MEDS: SODIUM HYPOCHLORITE 0.5% 473 ML- BULK BOTTLE TP SCH (13:40)
[2021-04-14] MEDS: ATORVASTATIN CA 80 MG TABLET (FP) GT SCH (22:12)
[2021-04-15] MEDS: CARBIDOPA/LEVODOPA 25/100 TABLET (FP) GT SCH ×6 (02:18→22:32)
[2021-04-15] MEDS: HEPARIN NA (PORCINE) 5,000 UNITS/ML 1ML VIAL SQ SCH ×3 (06:18→22:32)
[2021-04-15] MEDS: AMINO ACIDS/PROTEIN HYDROLYS 30 ML LIQUID.PKT GT SCH ×3 (06:18→22:31)
[2021-04-15] MEDS: INSULIN SLIDING SCALE (NOVOLOG) 1 VIAL SQ SCH ×4 (06:18→22:33)
[2021-04-15] MEDS: TOPIRAMATE 100 MG TABLET GT SCH ×2 (06:18→22:32)
[2021-04-15] MEDS ORDERED: SODIUM CHLORIDE 250 ML IV PRN (07:00)
[2021-04-15] MEDS ORDERED: EPOETIN ALFA-EPBX 10,000 UNIT/ML VIAL SQ ONE (07:00)
[2021-04-15] MEDS: levETIRAcetam 500 MG/5 ML ORAL SOLUTION (UNIT-DOSE CUPS) GT SCH ×2 (11:49→22:31)
[2021-04-15] MEDS: PANTOPRAZOLE SODIUM 40 MG VIAL IVPUSH SCH (11:49)
[2021-04-15] MEDS: ZINC SULFATE 220 MG CAPSULE (FP) GT SCH (11:50)
[2021-04-15] MEDS: CLOPIDOGREL BISULFATE 75 MG TABLET (FP) GT SCH (11:50)
[2021-04-15] MEDS: VITAMIN B COMP W-C 1 EA TABLET (NEPHRO-VITE) PO SCH (11:50)
[2021-04-15] MEDS: SODIUM HYPOCHLORITE 0.5% 473 ML- BULK BOTTLE TP SCH (15:04)
[2021-04-15] MEDS: ATORVASTATIN CA 80 MG TABLET (FP) GT SCH (22:32)
[2021-04-16] MEDS: INSULIN SLIDING SCALE (NOVOLOG) 1 VIAL SQ SCH ×4 (06:26→22:58)
[2021-04-16] MEDS: AMINO ACIDS/PROTEIN HYDROLYS 30 ML LIQUID.PKT GT SCH ×3 (06:26→23:00)
[2021-04-16] MEDS: HEPARIN NA (PORCINE) 5,000 UNITS/ML 1ML VIAL SQ SCH ×3 (06:26→23:01)
[2021-04-16] MEDS: TOPIRAMATE 100 MG TABLET GT SCH ×2 (06:27→22:59)
[2021-04-16] MEDS: PANTOPRAZOLE SODIUM 40 MG VIAL IVPUSH SCH (10:23)
[2021-04-16] MEDS: levETIRAcetam 500 MG/5 ML ORAL SOLUTION (UNIT-DOSE CUPS) GT SCH ×2 (10:23→23:00)
[2021-04-16] MEDS: CARBIDOPA/LEVODOPA 25/100 TABLET (FP) GT SCH ×4 (10:25→23:00)
[2021-04-16] MEDS: CLOPIDOGREL BISULFATE 75 MG TABLET (FP) GT SCH (10:25)
[2021-04-16] MEDS: VITAMIN B COMP W-C 1 EA TABLET (NEPHRO-VITE) PO SCH (10:25)
[2021-04-16] MEDS: ZINC SULFATE 220 MG CAPSULE (FP) GT SCH (10:26)
[2021-04-16 11:02] LABS: BASO % 0.2 % (0-2.0); EOS % 0.4 % (0-4.5); HEMATOCRIT 23.6 % (32.4-45.2); HEMOGLOBIN 7.1 GM/dL (10.7-15.3); MCH 28.6 pg (25.7-33.7); MCHC 29.9 g/dl (32.0-36.0); MEAN CELL VOLUME 95.4 fl (80-96); MEAN PLT VOLUME 10.3 fl (7.5-11.1); NEUT % 85.4 % (42.8-82.8); PLATELET COUNT 152 10^3/uL (134-434); RBC 2.48 M/mm3 (3.60-5.2); RDW 21.2 % (11.6-15.6); WHITE BLOOD COUNT 19.9 K/mm3 (4.0-10.0)
[2021-04-16 11:22] LABS: ALBUMIN 1.6 g/dl (3.4-5.0); BLOOD UREA NITROGEN 41.5 mg/dL (7-18); CALCIUM 8.2 mg/dL (8.5-10.1)
[2021-04-16 11:27] LABS: BILIRUBIN,TOTAL 0.3 mg/dL (0.2-1)
[2021-04-16 13:11] LABS: ANISOCYTOSIS 2+; MACROCYTOSIS 2+; OVALOCYTE 1+; PLATELET ESTIMATE DECREASED; TARGET CELLS 1+; TOXIC GRANULATION 2+
[2021-04-16] MEDS ORDERED: POTASSIUM CHLORIDE ORAL LIQUID 20 MEQ/15 ML PO ONE (15:00)
[2021-04-16] MEDS: SODIUM HYPOCHLORITE 0.5% 473 ML- BULK BOTTLE TP SCH (16:41)
[2021-04-16] MEDS: ATORVASTATIN CA 80 MG TABLET (FP) GT SCH (22:59)
[2021-04-17] MEDS: HEPARIN NA (PORCINE) 5,000 UNITS/ML 1ML VIAL SQ SCH ×3 (06:46→22:00)
[2021-04-17] MEDS: INSULIN SLIDING SCALE (NOVOLOG) 1 VIAL SQ SCH ×4 (06:46→22:19)
[2021-04-17] MEDS: TOPIRAMATE 100 MG TABLET GT SCH ×2 (06:46→22:00)
[2021-04-17] MEDS: AMINO ACIDS/PROTEIN HYDROLYS 30 ML LIQUID.PKT GT SCH ×3 (06:46→22:00)
[2021-04-17] MEDS ORDERED: SODIUM CHLORIDE 250 ML IV PRN (07:59)
[2021-04-17] MEDS ORDERED: EPOETIN ALFA-EPBX 10,000 UNIT, EPOETIN ALFA-EPBX 2,000 UNIT SQ ONE (09:00)
[2021-04-17] MEDS: ALBUMIN HUMAN 25% 12.5 GM/50 ML VIAL IVPB SCH ×4 (09:00→11:37)
[2021-04-17 09:04] LABS: MCH 28.8 pg (25.7-33.7); MCHC 30.3 g/dl (32.0-36.0); MEAN CELL VOLUME 95.1 fl (80-96); MEAN PLT VOLUME 10.1 fl (7.5-11.1); PLATELET COUNT 137 10^3/uL (134-434); RBC 2.31 M/mm3 (3.60-5.2); RDW 20.6 % (11.6-15.6); WHITE BLOOD COUNT 20.2 K/mm3 (4.0-10.0)
[2021-04-17 09:29] LABS: CALCIUM 8.1 mg/dL (8.5-10.1)
[2021-04-17 09:30] LABS: BLOOD UREA NITROGEN 51.5 mg/dL (7-18)
[2021-04-17 09:33] LABS: CREATININE 2.3 mg/dL (0.55-1.3)
[2021-04-17 09:39] LABS: HEMOGLOBIN 6.7 GM/dL (10.7-15.3)
[2021-04-17] MEDS: CARBIDOPA/LEVODOPA 25/100 TABLET (FP) GT SCH ×4 (10:00→22:00)
[2021-04-17] MEDS: CLOPIDOGREL BISULFATE 75 MG TABLET (FP) GT SCH (12:31)
[2021-04-17] MEDS: VITAMIN B COMP W-C 1 EA TABLET (NEPHRO-VITE) PO SCH (12:32)
[2021-04-17] MEDS: ZINC SULFATE 220 MG CAPSULE (FP) GT SCH (12:32)
[2021-04-17] MEDS: levETIRAcetam 500 MG/5 ML ORAL SOLUTION (UNIT-DOSE CUPS) GT SCH ×2 (12:32→22:00)
[2021-04-17] MEDS: PANTOPRAZOLE SODIUM 40 MG VIAL IVPUSH SCH (12:33)
[2021-04-17] MEDS: SODIUM HYPOCHLORITE 0.5% 473 ML- BULK BOTTLE TP SCH (13:56)
[2021-04-17] MEDS ORDERED: EPOETIN ALFA-EPBX 10,000 UNIT/ML VIAL SQ ONE (14:47)
[2021-04-17] MEDS: ACETAMINOPHEN 650 MG/20.3 ML ORAL SOLUTION (CUPS) GT PRN (20:26)
[2021-04-17] MEDS: ATORVASTATIN CA 80 MG TABLET (FP) GT SCH (22:00)
[2021-04-18] MEDS: HEPARIN NA (PORCINE) 5,000 UNITS/ML 1ML VIAL SQ SCH ×3 (05:57→23:12)
[2021-04-18] MEDS: AMINO ACIDS/PROTEIN HYDROLYS 30 ML LIQUID.PKT GT SCH ×3 (05:57→22:08)
[2021-04-18] MEDS: INSULIN SLIDING SCALE (NOVOLOG) 1 VIAL SQ SCH ×4 (06:00→22:51)
[2021-04-18] MEDS: TOPIRAMATE 100 MG TABLET GT SCH ×2 (06:00→22:09)
[2021-04-18] MEDS: PANTOPRAZOLE SODIUM 40 MG VIAL IVPUSH SCH (11:30)
[2021-04-18] MEDS: levETIRAcetam 500 MG/5 ML ORAL SOLUTION (UNIT-DOSE CUPS) GT SCH ×2 (11:33→22:09)
[2021-04-18] MEDS: VITAMIN B COMP W-C 1 EA TABLET (NEPHRO-VITE) PO SCH (11:33)
[2021-04-18] MEDS: ZINC SULFATE 220 MG CAPSULE (FP) GT SCH (11:33)
[2021-04-18] MEDS: CLOPIDOGREL BISULFATE 75 MG TABLET (FP) GT SCH (11:33)
[2021-04-18] MEDS: CARBIDOPA/LEVODOPA 25/100 TABLET (FP) GT SCH ×4 (11:33→22:09)
[2021-04-18] MEDS: ACETAMINOPHEN 650 MG/20.3 ML ORAL SOLUTION (CUPS) GT PRN ×2 (11:35→20:32)
[2021-04-18] MEDS: SODIUM HYPOCHLORITE 0.5% 473 ML- BULK BOTTLE TP SCH (13:28)
[2021-04-18] MEDS: ATORVASTATIN CA 80 MG TABLET (FP) GT SCH (22:09)
[2021-04-18 23:00] LABS: HEMATOCRIT 23.7 % (32.4-45.2); HEMOGLOBIN 7.1 GM/dL (10.7-15.3); MCH 28.4 pg (25.7-33.7); MCHC 29.7 g/dl (32.0-36.0); MEAN CELL VOLUME 95.5 fl (80-96); PLATELET COUNT 147 10^3/uL (134-434); RBC 2.48 M/mm3 (3.60-5.2); RDW 20.3 % (11.6-15.6); WHITE BLOOD COUNT 23.7 K/mm3 (4.0-10.0)
[2021-04-18] MEDS ORDERED: SODIUM CHLORIDE 250 ML IV ONE (23:45)
[2021-04-19] MEDS: INSULIN SLIDING SCALE (NOVOLOG) 1 VIAL SQ SCH ×4 (06:03→23:45)
[2021-04-19] MEDS: AMINO ACIDS/PROTEIN HYDROLYS 30 ML LIQUID.PKT GT SCH ×3 (06:03→22:22)
[2021-04-19] MEDS: TOPIRAMATE 100 MG TABLET GT SCH ×2 (06:07→22:23)
[2021-04-19] MEDS: CARBIDOPA/LEVODOPA 25/100 TABLET (FP) GT SCH ×4 (10:54→22:22)
[2021-04-19] MEDS: PANTOPRAZOLE SODIUM 40 MG VIAL IVPUSH SCH (10:54)
[2021-04-19] MEDS: levETIRAcetam 500 MG/5 ML ORAL SOLUTION (UNIT-DOSE CUPS) GT SCH (10:54)
[2021-04-19] MEDS: SODIUM HYPOCHLORITE 0.5% 473 ML- BULK BOTTLE TP SCH (10:55)
[2021-04-19] MEDS: VITAMIN B COMP W-C 1 EA TABLET (NEPHRO-VITE) PO SCH (10:55)
[2021-04-19] MEDS: ZINC SULFATE 220 MG CAPSULE (FP) GT SCH (10:55)
[2021-04-19] MEDS: CLOPIDOGREL BISULFATE 75 MG TABLET (FP) GT SCH (10:55)
[2021-04-19] MEDS: ACETAMINOPHEN 650 MG/20.3 ML ORAL SOLUTION (CUPS) GT PRN (10:55)
[2021-04-19] MEDS: HEPARIN NA (PORCINE) 5,000 UNITS/ML 1ML VIAL SQ SCH ×2 (13:14→22:22)
[2021-04-19] MEDS ORDERED: SODIUM CHLORIDE 500 ML IV STA (17:00)
[2021-04-19] MEDS ORDERED: SODIUM CHLORIDE 1,000 ML IV STA (18:52)
[2021-04-19] MEDS: NOREPINEPHRINE BITARTRATE 16,000 MCG in SODIUM CHLORIDE 484 ML IV SCH (20:45)
[2021-04-19] MEDS ORDERED: DEXTROSE 5%-WATER 100 ML IVPB ONE (22:17)
[2021-04-19] MEDS ORDERED: MEROPENEM 500 MG VIAL (RESTRICTED TO ID) IVPB ONE (22:17)
[2021-04-19] MEDS: MUPIROCIN 2% TOPICAL OINTMENT FOR DECOLONIZATION NS SCH (22:22)
[2021-04-19] MEDS: CHLORHEXIDINE GLUCONATE 4% CLEANSER FOR DECOLONIZATION TP SCH (22:22)
[2021-04-19] MEDS: ATORVASTATIN CA 80 MG TABLET (FP) GT SCH (22:22)
[2021-04-19] MEDS: MEROPENEM 500 MG in DEXTROSE 5%-WATER 100 ML IVPB SCH (22:23)
[2021-04-19] MEDS ORDERED: VANCOMYCIN 1 GRAM (PRE-DOCKED) 1,000 MG/250 ML BAG IVPB ONE (22:30)
[2021-04-20] MEDS: VASOPRESSIN 40 UNITS in SODIUM CHLORIDE 40 UNITS/100 ML INFUS.BAG IVPB SCH ×3 (00:25→23:47)
[2021-04-20] MEDS: levETIRAcetam 500 MG/5 ML ORAL SOLUTION (UNIT-DOSE CUPS) GT SCH ×3 (01:37→21:46)
[2021-04-20] MEDS ORDERED: EPOETIN ALFA-EPBX 10,000 UNIT/ML VIAL SQ ONE (07:00)
[2021-04-20] MEDS ORDERED: EPOETIN ALFA-EPBX 10,000 UNIT, EPOETIN ALFA-EPBX 4,000 UNIT SQ ONE (07:00)
[2021-04-20] MEDS ORDERED: SODIUM CHLORIDE 250 ML IV PRN (07:00)
[2021-04-20] MEDS: HEPARIN NA (PORCINE) 5,000 UNITS/ML 1ML VIAL SQ SCH ×3 (07:26→21:46)
[2021-04-20] MEDS: AMINO ACIDS/PROTEIN HYDROLYS 30 ML LIQUID.PKT GT SCH ×3 (07:27→21:46)
[2021-04-20] MEDS: TOPIRAMATE 100 MG TABLET GT SCH ×2 (07:27→21:47)
[2021-04-20] MEDS: INSULIN SLIDING SCALE (NOVOLOG) 1 VIAL SQ SCH ×4 (07:27→23:47)
[2021-04-20 07:57] LABS: HEMATOCRIT 26.3 % (32.4-45.2); HEMOGLOBIN 7.9 GM/dL (10.7-15.3); MCH 28.9 pg (25.7-33.7); MEAN CELL VOLUME 96.4 fl (80-96); MEAN PLT VOLUME 10.1 fl (7.5-11.1); PLATELET COUNT 184 10^3/uL (134-434); RBC 2.73 M/mm3 (3.60-5.2); RDW 19.9 % (11.6-15.6); WHITE BLOOD COUNT 25.3 K/mm3 (4.0-10.0)
[2021-04-20] MEDS: ALBUMIN HUMAN 25% 12.5 GM/50 ML VIAL IVPB SCH ×4 (08:00→08:40)
[2021-04-20 08:07] LABS: CHLORIDE 106 mmol/L (98-107); SODIUM 143 mmol/L (136-145)
[2021-04-20 08:09] LABS: CALCIUM 9.3 mg/dL (8.5-10.1)
[2021-04-20 08:10] LABS: ALBUMIN 1.7 g/dl (3.4-5.0); CO2 26 mmol/L (21-32); GLUCOSE,RANDOM 335 mg/dL (74-106); MAGNESIUM 2.1 mg/dL (1.8-2.4)
[2021-04-20 08:13] LABS: CREATININE 2.9 mg/dL (0.55-1.3); SGOT/AST 24 U/L (15-37); SGPT/ALT 11 U/L (13-61)
[2021-04-20 08:14] LABS: BILIRUBIN,TOTAL 0.3 mg/dL (0.2-1); TOT PROT 5.7 g/dl (6.4-8.2)
[2021-04-20 08:16] LABS: ALK PHOS 105 U/L (45-117)
[2021-04-20 08:17] LABS: ANION GAP 11 MMOL/L (8-16); BLOOD UREA NITROGEN 76.7 mg/dL (7-18)
[2021-04-20 09:07] LABS: ANISOCYTOSIS 0; HELMET CELLS 0; HOWELL-JOLLY BODIES 0; MACROCYTOSIS 0; OVALOCYTE 0; PLATELET ESTIMATE NORMAL; ROULEAU 0; SICKELED CELLS 0; TARGET CELLS 0; TEAR DROP CELLS 0; TOXIC GRANULATION 0
[2021-04-20] MEDS ORDERED: MEROPENEM 500 MG VIAL (RESTRICTED TO ID) IVPB ONE ×2 (09:21→21:29)
[2021-04-20] MEDS ORDERED: DEXTROSE 5%-WATER 100 ML IVPB ONE ×2 (09:22→21:30)
[2021-04-20] MEDS: KCL 10 MEQ IVPB 10 MEQ/100 ML INFUS.BAG IVPB SCH ×3 (09:39→11:43)
[2021-04-20] MEDS: MEROPENEM 500 MG in DEXTROSE 5%-WATER 100 ML IVPB SCH ×2 (09:39→21:46)
[2021-04-20] MEDS: SODIUM HYPOCHLORITE 0.5% 473 ML- BULK BOTTLE TP SCH (09:40)
[2021-04-20] MEDS: MUPIROCIN 2% TOPICAL OINTMENT FOR DECOLONIZATION NS SCH ×2 (09:40→21:46)
[2021-04-20] MEDS: ZINC SULFATE 220 MG CAPSULE (FP) GT SCH (09:41)
[2021-04-20] MEDS: CLOPIDOGREL BISULFATE 75 MG TABLET (FP) GT SCH (09:41)
[2021-04-20] MEDS: VITAMIN B COMP W-C 1 EA TABLET (NEPHRO-VITE) PO SCH (09:41)
[2021-04-20] MEDS: PANTOPRAZOLE SODIUM 40 MG VIAL IVPUSH SCH (09:41)
[2021-04-20] MEDS: CARBIDOPA/LEVODOPA 25/100 TABLET (FP) GT SCH ×4 (09:41→23:47)
[2021-04-20] MEDS: HYDROCORTISONE SOD SUCCINATE 100 MG/2 ML VIAL IVPB SCH ×3 (11:14→21:46)
[2021-04-20 11:46] LABS: HEMATOCRIT 25.6 % (32.4-45.2); HEMOGLOBIN 7.6 GM/dL (10.7-15.3); MCH 28.3 pg (25.7-33.7); MCHC 29.7 g/dl (32.0-36.0); MEAN CELL VOLUME 95.2 fl (80-96); MEAN PLT VOLUME 9.8 fl (7.5-11.1); PLATELET COUNT 165 10^3/uL (134-434); RBC 2.69 M/mm3 (3.60-5.2); RDW 19.6 % (11.6-15.6)
[2021-04-20] MEDS: FLUDROCORTISONE ACETATE 0.1 MG TABLET (FP) PO SCH (12:29)
[2021-04-20] MEDS: NOREPINEPHRINE BITARTRATE 16,000 MCG in SODIUM CHLORIDE 484 ML IV SCH (20:32)
[2021-04-20] MEDS: CHLORHEXIDINE GLUCONATE 4% CLEANSER FOR DECOLONIZATION TP SCH (21:46)
[2021-04-20] MEDS: ATORVASTATIN CA 80 MG TABLET (FP) GT SCH (21:46)
[2021-04-21] MEDS: HYDROCORTISONE SOD SUCCINATE 100 MG/2 ML VIAL IVPB SCH ×4 (02:17→21:38)
[2021-04-21] MEDS: AMINO ACIDS/PROTEIN HYDROLYS 30 ML LIQUID.PKT GT SCH ×3 (06:51→21:41)
[2021-04-21] MEDS: HEPARIN NA (PORCINE) 5,000 UNITS/ML 1ML VIAL SQ SCH ×3 (06:51→21:39)
[2021-04-21] MEDS: INSULIN SLIDING SCALE (NOVOLOG) 1 VIAL SQ SCH ×4 (06:52→21:58)
[2021-04-21 07:10] LABS: HEMOGLOBIN 7.4 GM/dL (10.7-15.3); MCH 28.4 pg (25.7-33.7); MCHC 29.6 g/dl (32.0-36.0); MEAN CELL VOLUME 95.8 fl (80-96); MEAN PLT VOLUME 10.2 fl (7.5-11.1); PLATELET COUNT 142 10^3/uL (134-434); RBC 2.61 M/mm3 (3.60-5.2); RDW 19.9 % (11.6-15.6); WHITE BLOOD COUNT 14.1 K/mm3 (4.0-10.0)
[2021-04-21 07:16] LABS: CALCIUM 9.7 mg/dL (8.5-10.1)
[2021-04-21 07:17] LABS: BLOOD UREA NITROGEN 76.2 mg/dL (7-18)
[2021-04-21 07:20] LABS: CREATININE 2.7 mg/dL (0.55-1.3); PHOSPHOROUS 3.3 mg/dL (2.5-4.9)
[2021-04-21 07:21] LABS: BILIRUBIN,TOTAL 0.3 mg/dL (0.2-1); TOT PROT 5.6 g/dl (6.4-8.2)
[2021-04-21] MEDS: TOPIRAMATE 100 MG TABLET GT SCH ×2 (08:31→21:59)
[2021-04-21] MEDS: FLUDROCORTISONE ACETATE 0.1 MG TABLET (FP) PO SCH (09:16)
[2021-04-21] MEDS: PANTOPRAZOLE SODIUM 40 MG VIAL IVPUSH SCH (09:16)
[2021-04-21] MEDS: CLOPIDOGREL BISULFATE 75 MG TABLET (FP) GT SCH (09:17)
[2021-04-21] MEDS: ZINC SULFATE 220 MG CAPSULE (FP) GT SCH (09:17)
[2021-04-21] MEDS: VITAMIN B COMP W-C 1 EA TABLET (NEPHRO-VITE) PO SCH (09:17)
[2021-04-21] MEDS: MUPIROCIN 2% TOPICAL OINTMENT FOR DECOLONIZATION NS SCH ×2 (09:18→21:39)
[2021-04-21] MEDS: SODIUM HYPOCHLORITE 0.5% 473 ML- BULK BOTTLE TP SCH (09:19)
[2021-04-21] MEDS ORDERED: MEROPENEM 500 MG VIAL (RESTRICTED TO ID) IVPB ONE ×2 (09:21→21:35)
[2021-04-21] MEDS ORDERED: DEXTROSE 5%-WATER 100 ML IVPB ONE ×2 (09:21→21:35)
[2021-04-21] MEDS: levETIRAcetam 500 MG/5 ML ORAL SOLUTION (UNIT-DOSE CUPS) GT SCH ×2 (09:23→21:41)
[2021-04-21 09:24] LABS: ANISOCYTOSIS 1+; MACROCYTOSIS 0; PLATELET ESTIMATE NORMAL
[2021-04-21] MEDS: MEROPENEM 500 MG in DEXTROSE 5%-WATER 100 ML IVPB SCH ×2 (09:25→21:57)
[2021-04-21] MEDS: CARBIDOPA/LEVODOPA 25/100 TABLET (FP) GT SCH ×4 (09:25→21:40)
[2021-04-21] MEDS ORDERED: VANCOMYCIN 1 GRAM (PRE-DOCKED) 1,000 MG/250 ML BAG IVPB ONE (10:09)
[2021-04-21] MEDS ORDERED: LACTATED RINGERS SOLUTION 1,000 ML/1,000 ML INFUS.BAG IV STA (10:46)
[2021-04-21] MEDS: MIDODRINE HCL 5 MG TABLET PO SCH ×2 (15:01→18:05)
[2021-04-21] MEDS ORDERED: EPOETIN ALFA-EPBX 10,000 UNIT/ML VIAL SQ ONE (19:30)
[2021-04-21] MEDS ORDERED: ACETAMINOPHEN 650 MG/20.3 ML ORAL SOLUTION (CUPS) GT PRN (19:30)
[2021-04-21] MEDS: NOREPINEPHRINE BITARTRATE 16,000 MCG in SODIUM CHLORIDE 484 ML IV SCH (20:19)
[2021-04-21] MEDS: ATORVASTATIN CA 80 MG TABLET (FP) GT SCH (21:40)
[2021-04-21] MEDS: CHLORHEXIDINE GLUCONATE 4% CLEANSER FOR DECOLONIZATION TP SCH (21:40)
[2021-04-21] MEDS: INSULIN (LEVEMIR) 100 UNITS/ML UNITS SQ SCH (21:58)
[2021-04-22] MEDS: HYDROCORTISONE SOD SUCCINATE 100 MG/2 ML VIAL IVPB SCH ×4 (02:10→21:30)
[2021-04-22] MEDS: HEPARIN NA (PORCINE) 5,000 UNITS/ML 1ML VIAL SQ SCH ×3 (05:27→21:30)
[2021-04-22] MEDS: AMINO ACIDS/PROTEIN HYDROLYS 30 ML LIQUID.PKT GT SCH ×3 (05:28→21:29)
[2021-04-22] MEDS: VASOPRESSIN 40 UNITS in SODIUM CHLORIDE 40 UNITS/100 ML INFUS.BAG IVPB SCH (06:18)
[2021-04-22] MEDS: TOPIRAMATE 100 MG TABLET GT SCH ×2 (06:18→21:44)
[2021-04-22] MEDS: INSULIN SLIDING SCALE (NOVOLOG) 1 VIAL SQ SCH ×4 (06:25→22:09)
[2021-04-22] MEDS: INSULIN (LEVEMIR) 100 UNITS/ML UNITS SQ SCH ×2 (06:26→22:09)
[2021-04-22 07:06] LABS: HEMATOCRIT 26.6 % (32.4-45.2); HEMOGLOBIN 7.9 GM/dL (10.7-15.3); MCH 28.5 pg (25.7-33.7); MCHC 29.6 g/dl (32.0-36.0); MEAN CELL VOLUME 96.2 fl (80-96); MEAN PLT VOLUME 10.4 fl (7.5-11.1); PLATELET COUNT 143 10^3/uL (134-434); RBC 2.77 M/mm3 (3.60-5.2); RDW 20.1 % (11.6-15.6); WHITE BLOOD COUNT 11.8 K/mm3 (4.0-10.0)
[2021-04-22 07:22] LABS: CHLORIDE 107 mmol/L (98-107); SODIUM 143 mmol/L (136-145)
[2021-04-22 07:26] LABS: ALBUMIN 1.9 g/dl (3.4-5.0); BLOOD UREA NITROGEN 94.1 mg/dL (7-18); CALCIUM 9.1 mg/dL (8.5-10.1); CO2 22 mmol/L (21-32)
[2021-04-22 07:27] LABS: GLUCOSE,RANDOM 358 mg/dL (74-106)
[2021-04-22 07:29] LABS: IRON SERUM 71 ug/dL (50-175); PHOSPHOROUS 3.4 mg/dL (2.5-4.9); SGOT/AST 16 U/L (15-37); TOTAL IRON BINDING CAPACITY 82 ug/dL (250-450)
[2021-04-22 07:30] LABS: SGPT/ALT 10 U/L (13-61)
[2021-04-22 07:31] LABS: BILIRUBIN,TOTAL 0.3 mg/dL (0.2-1); TOT PROT 5.5 g/dl (6.4-8.2)
[2021-04-22 07:32] LABS: ALK PHOS 109 U/L (45-117)
[2021-04-22] MEDS ORDERED: SODIUM CHLORIDE 250 ML IV PRN (07:48)
[2021-04-22 07:54] LABS: ANION GAP 13 MMOL/L (8-16)
[2021-04-22] MEDS ORDERED: POTASSIUM CHLORIDE 20 MEQ PREMIX IVPB 100 ML IVPB ONE (07:57)
[2021-04-22] MEDS ORDERED: EPOETIN ALFA-EPBX 10,000 UNIT/ML VIAL SQ ONE (08:15)
[2021-04-22] MEDS ORDERED: DEXTROSE 5%-WATER - 50 ML IVPB ONE ×2 (08:44→21:18)
[2021-04-22] MEDS ORDERED: MEROPENEM 500 MG VIAL (RESTRICTED TO ID) IVPB ONE ×2 (08:44→21:18)
[2021-04-22] MEDS ORDERED: MIDAZOLAM IN 0.9 % SOD.CHLORID 1 MG/1 ML PLAST..BAG ONE (09:51)
[2021-04-22 10:51] LABS: ANISOCYTOSIS 1+; MACROCYTOSIS 2+; PLATELET ESTIMATE DECREASED
[2021-04-22] MEDS: MEROPENEM 500 MG in DEXTROSE 5%-WATER - 50 ML IVPB SCH ×2 (10:56→21:36)
[2021-04-22] MEDS: MUPIROCIN 2% TOPICAL OINTMENT FOR DECOLONIZATION NS SCH ×2 (10:58→22:30)
[2021-04-22] MEDS: SODIUM HYPOCHLORITE 0.5% 473 ML- BULK BOTTLE TP SCH (10:58)
[2021-04-22] MEDS: FLUDROCORTISONE ACETATE 0.1 MG TABLET (FP) PO SCH (10:59)
[2021-04-22] MEDS: levETIRAcetam 500 MG/5 ML ORAL SOLUTION (UNIT-DOSE CUPS) GT SCH ×2 (11:00→21:44)
[2021-04-22] MEDS: PANTOPRAZOLE SODIUM 40 MG VIAL IVPUSH SCH (11:01)
[2021-04-22] MEDS: MIDODRINE HCL 5 MG TABLET PO SCH ×3 (11:01→18:59)
[2021-04-22] MEDS: VITAMIN B COMP W-C 1 EA TABLET (NEPHRO-VITE) PO SCH (11:02)
[2021-04-22] MEDS: CLOPIDOGREL BISULFATE 75 MG TABLET (FP) GT SCH (11:02)
[2021-04-22] MEDS: ZINC SULFATE 220 MG CAPSULE (FP) GT SCH (11:03)
[2021-04-22] MEDS: CARBIDOPA/LEVODOPA 25/100 TABLET (FP) GT SCH ×4 (11:03→21:33)
[2021-04-22] MEDS ORDERED: MIDAZOLAM HCL 5 MG/1 ML Single Dose Vial IVPUSH ONE (13:33)
[2021-04-22] MEDS ORDERED: MIDAZOLAM HCL 5 MG/1 ML Single Dose Vial ONE (13:37)
[2021-04-22] MEDS ORDERED: LACTATED RINGERS SOLUTION 1,000 ML/1,000 ML INFUS.BAG IV STA (17:21)
[2021-04-22] MEDS: NOREPINEPHRINE BITARTRATE 16,000 MCG in SODIUM CHLORIDE 484 ML IV SCH (21:13)
[2021-04-22] MEDS: CHLORHEXIDINE GLUCONATE 4% CLEANSER FOR DECOLONIZATION TP SCH (21:30)
[2021-04-22] MEDS: ATORVASTATIN CA 80 MG TABLET (FP) GT SCH (21:30)
[2021-04-23] MEDS: VASOPRESSIN 40 UNITS in SODIUM CHLORIDE 40 UNITS/100 ML INFUS.BAG IVPB SCH (00:43)
[2021-04-23] MEDS: HYDROCORTISONE SOD SUCCINATE 100 MG/2 ML VIAL IVPB SCH ×4 (02:14→21:55)
[2021-04-23] MEDS: INSULIN (LEVEMIR) 100 UNITS/ML UNITS SQ SCH ×2 (06:03→22:31)
[2021-04-23] MEDS: AMINO ACIDS/PROTEIN HYDROLYS 30 ML LIQUID.PKT GT SCH ×3 (06:03→21:56)
[2021-04-23] MEDS: HEPARIN NA (PORCINE) 5,000 UNITS/ML 1ML VIAL SQ SCH ×3 (06:03→21:56)
[2021-04-23] MEDS: INSULIN SLIDING SCALE (NOVOLOG) 1 VIAL SQ SCH ×4 (06:03→22:31)
[2021-04-23] MEDS: TOPIRAMATE 100 MG TABLET GT SCH ×2 (06:04→21:56)
[2021-04-23 07:54] LABS: BASO % 0.3 % (0-2.0); HEMATOCRIT 26.4 % (32.4-45.2); HEMOGLOBIN 7.9 GM/dL (10.7-15.3); LYMPH % 10.7 % (8-40); MCH 28.9 pg (25.7-33.7); MCHC 30.1 g/dl (32.0-36.0); MEAN PLT VOLUME 10.5 fl (7.5-11.1); MONO % 3.6 % (3.8-10.2); NEUT % 85.4 % (42.8-82.8); PLATELET COUNT 131 10^3/uL (134-434); RBC 2.75 M/mm3 (3.60-5.2); WHITE BLOOD COUNT 10.8 K/mm3 (4.0-10.0)
[2021-04-23 08:08] LABS: CHLORIDE 105 mmol/L (98-107); SODIUM 141 mmol/L (136-145)
[2021-04-23 08:10] LABS: CALCIUM 8.9 mg/dL (8.5-10.1)
[2021-04-23 08:11] LABS: ALBUMIN 1.8 g/dl (3.4-5.0); CO2 26 mmol/L (21-32); GLUCOSE,RANDOM 256 mg/dL (74-106)
[2021-04-23 08:14] LABS: CREATININE 2.1 mg/dL (0.55-1.3); PHOSPHOROUS 2.4 mg/dL (2.5-4.9); SGOT/AST 38 U/L (15-37); SGPT/ALT 13 U/L (13-61)
[2021-04-23 08:15] LABS: BILIRUBIN,TOTAL 0.3 mg/dL (0.2-1)
[2021-04-23 08:16] LABS: TOT PROT 5.2 g/dl (6.4-8.2)
[2021-04-23 08:17] LABS: ALK PHOS 102 U/L (45-117)
[2021-04-23 08:25] LABS: ANION GAP 10 MMOL/L (8-16); BLOOD UREA NITROGEN 65.5 mg/dL (7-18)
[2021-04-23] MEDS ORDERED: DEXTROSE 5%-WATER - 50 ML IVPB ONE ×2 (09:44→21:21)
[2021-04-23] MEDS ORDERED: MEROPENEM 500 MG VIAL (RESTRICTED TO ID) IVPB ONE ×2 (09:44→21:21)
[2021-04-23] MEDS: KCL 10 MEQ IVPB 10 MEQ/100 ML INFUS.BAG IVPB SCH (09:59)
[2021-04-23] MEDS: MUPIROCIN 2% TOPICAL OINTMENT FOR DECOLONIZATION NS SCH ×2 (10:01→21:55)
[2021-04-23] MEDS: PANTOPRAZOLE SODIUM 40 MG VIAL IVPUSH SCH (10:02)
[2021-04-23] MEDS: SODIUM HYPOCHLORITE 0.5% 473 ML- BULK BOTTLE TP SCH (10:03)
[2021-04-23] MEDS: MIDODRINE HCL 5 MG TABLET PO SCH ×3 (10:03→19:30)
[2021-04-23] MEDS: ZINC SULFATE 220 MG CAPSULE (FP) GT SCH (10:03)
[2021-04-23] MEDS: CLOPIDOGREL BISULFATE 75 MG TABLET (FP) GT SCH (10:04)
[2021-04-23] MEDS: CARBIDOPA/LEVODOPA 25/100 TABLET (FP) GT SCH ×4 (10:04→21:56)
[2021-04-23] MEDS: VITAMIN B COMP W-C 1 EA TABLET (NEPHRO-VITE) PO SCH (10:04)
[2021-04-23] MEDS: FLUDROCORTISONE ACETATE 0.1 MG TABLET (FP) PO SCH (10:04)
[2021-04-23] MEDS: MEROPENEM 500 MG in DEXTROSE 5%-WATER - 50 ML IVPB SCH ×2 (10:05→21:56)
[2021-04-23] MEDS: levETIRAcetam 500 MG/5 ML ORAL SOLUTION (UNIT-DOSE CUPS) GT SCH ×2 (10:05→21:56)
[2021-04-23] MEDS ORDERED: VANCOMYCIN 1 GRAM (PRE-DOCKED) 1,000 MG/250 ML BAG IVPB ONE (16:21)
[2021-04-23] MEDS: NOREPINEPHRINE BITARTRATE 16,000 MCG in SODIUM CHLORIDE 484 ML IV SCH (21:55)
[2021-04-23] MEDS: CHLORHEXIDINE GLUCONATE 4% CLEANSER FOR DECOLONIZATION TP SCH (21:56)
[2021-04-23] MEDS: ATORVASTATIN CA 80 MG TABLET (FP) GT SCH (21:56)
[2021-04-24] MEDS: VASOPRESSIN 40 UNITS in SODIUM CHLORIDE 40 UNITS/100 ML INFUS.BAG IVPB SCH ×2 (01:25→23:47)
[2021-04-24] MEDS: HYDROCORTISONE SOD SUCCINATE 100 MG/2 ML VIAL IVPB SCH ×4 (04:17→22:00)
[2021-04-24] MEDS: HEPARIN NA (PORCINE) 5,000 UNITS/ML 1ML VIAL SQ SCH ×3 (06:52→23:45)
[2021-04-24] MEDS: TOPIRAMATE 100 MG TABLET GT SCH ×2 (06:52→23:46)
[2021-04-24] MEDS: AMINO ACIDS/PROTEIN HYDROLYS 30 ML LIQUID.PKT GT SCH ×3 (06:52→23:46)
[2021-04-24] MEDS ORDERED: SODIUM CHLORIDE 250 ML IV PRN (07:00)
[2021-04-24] MEDS ORDERED: EPOETIN ALFA-EPBX 10,000 UNIT/ML VIAL IVPUSH ONE (07:00)
[2021-04-24] MEDS: INSULIN (LEVEMIR) 100 UNITS/ML UNITS SQ SCH ×2 (07:45→23:45)
[2021-04-24 08:08] LABS: BASO % 0.2 % (0-2.0); EOS % 0.1 % (0-4.5); HEMATOCRIT 26.4 % (32.4-45.2); HEMOGLOBIN 7.9 GM/dL (10.7-15.3); MCHC 29.9 g/dl (32.0-36.0); MEAN PLT VOLUME 11.2 fl (7.5-11.1); MONO % 3.7 % (3.8-10.2); PLATELET COUNT 156 10^3/uL (134-434); RBC 2.73 M/mm3 (3.60-5.2); RDW 20.1 % (11.6-15.6)
[2021-04-24] MEDS: INSULIN SLIDING SCALE (NOVOLOG) 1 VIAL SQ SCH ×4 (08:14→23:46)
[2021-04-24 09:00] LABS: CHLORIDE 103 mmol/L (98-107); SODIUM 140 mmol/L (136-145)
[2021-04-24 09:11] LABS: CO2 24 mmol/L (21-32)
[2021-04-24 09:12] LABS: MAGNESIUM 1.9 mg/dL (1.8-2.4)
[2021-04-24 09:13] LABS: SGOT/AST 61 U/L (15-37); SGPT/ALT 20 U/L (13-61)
[2021-04-24 09:14] LABS: CREATININE 2.6 mg/dL (0.55-1.3); GLUCOSE,RANDOM 388 mg/dL (74-106)
[2021-04-24 09:15] LABS: ALBUMIN 1.8 g/dl (3.4-5.0); BLOOD UREA NITROGEN 88.5 mg/dL (7-18); CALCIUM 8.4 mg/dL (8.5-10.1)
[2021-04-24 09:17] LABS: PHOSPHOROUS 3.2 mg/dL (2.5-4.9)
[2021-04-24 09:18] LABS: ALK PHOS 115 U/L (45-117)
[2021-04-24 09:19] LABS: BILIRUBIN,TOTAL 0.3 mg/dL (0.2-1)
[2021-04-24 09:20] LABS: ANION GAP 13 MMOL/L (8-16)
[2021-04-24] MEDS: FLUDROCORTISONE ACETATE 0.1 MG TABLET (FP) PO SCH (10:10)
[2021-04-24] MEDS: levETIRAcetam 500 MG/5 ML ORAL SOLUTION (UNIT-DOSE CUPS) GT SCH (10:10)
[2021-04-24] MEDS: CLOPIDOGREL BISULFATE 75 MG TABLET (FP) GT SCH (10:10)
[2021-04-24] MEDS: ZINC SULFATE 220 MG CAPSULE (FP) GT SCH (10:10)
[2021-04-24] MEDS: VITAMIN B COMP W-C 1 EA TABLET (NEPHRO-VITE) PO SCH (10:10)
[2021-04-24] MEDS: MIDODRINE HCL 5 MG TABLET PO SCH ×3 (10:10→18:15)
[2021-04-24] MEDS ORDERED: MEROPENEM 500 MG VIAL (RESTRICTED TO ID) IVPB ONE ×2 (10:15→21:53)
[2021-04-24] MEDS ORDERED: DEXTROSE 5%-WATER - 50 ML IVPB ONE ×2 (10:16→21:53)
[2021-04-24] MEDS: MEROPENEM 500 MG in DEXTROSE 5%-WATER - 50 ML IVPB SCH ×2 (10:30→23:46)
[2021-04-24] MEDS: SODIUM HYPOCHLORITE 0.5% 473 ML- BULK BOTTLE TP SCH (10:30)
[2021-04-24] MEDS ORDERED: KCL 10 MEQ IVPB 10 MEQ/100 ML INFUS.BAG IVPB SCH (10:30)
[2021-04-24] MEDS: MUPIROCIN 2% TOPICAL OINTMENT FOR DECOLONIZATION NS SCH (10:30)
[2021-04-24] MEDS: PANTOPRAZOLE SODIUM 40 MG VIAL IVPUSH SCH (10:38)
[2021-04-24] MEDS: CARBIDOPA/LEVODOPA 25/100 TABLET (FP) GT SCH ×4 (10:38→23:46)
[2021-04-24 13:42] LABS: CHLORIDE 103 mmol/L (98-107); SODIUM 141 mmol/L (136-145)
[2021-04-24 13:44] LABS: CALCIUM 8.4 mg/dL (8.5-10.1); CO2 29 mmol/L (21-32); GLUCOSE,RANDOM 233 mg/dL (74-106)
[2021-04-24 13:48] LABS: CREATININE 1.5 mg/dL (0.55-1.3)
[2021-04-24 13:53] LABS: ANION GAP 9 MMOL/L (8-16); BLOOD UREA NITROGEN 48.7 mg/dL (7-18)
[2021-04-24] MEDS ORDERED: POTASSIUM CHLORIDE ORAL LIQUID 20 MEQ/15 ML PO ONE (14:45)
[2021-04-24] MEDS: KCL 10 MEQ IVPB 10 MEQ/100 ML INFUS.BAG IVPB SCH ×3 (15:31→18:15)
[2021-04-24] MEDS: NOREPINEPHRINE BITARTRATE 16,000 MCG in SODIUM CHLORIDE 484 ML IV SCH (19:36)
[2021-04-24] MEDS: CHLORHEXIDINE GLUCONATE 4% CLEANSER FOR DECOLONIZATION TP SCH (23:45)
[2021-04-24] MEDS: ATORVASTATIN CA 80 MG TABLET (FP) GT SCH (23:46)
[2021-04-25] MEDS: levETIRAcetam 500 MG/5 ML ORAL SOLUTION (UNIT-DOSE CUPS) GT SCH ×3 (03:00→21:48)
[2021-04-25] MEDS: HYDROCORTISONE SOD SUCCINATE 100 MG/2 ML VIAL IVPB SCH ×4 (03:23→21:42)
[2021-04-25] MEDS ORDERED: SODIUM CHLORIDE 1,000 ML IV STA (05:09)
[2021-04-25] MEDS: HEPARIN NA (PORCINE) 5,000 UNITS/ML 1ML VIAL SQ SCH ×3 (05:26→21:47)
[2021-04-25] MEDS: AMINO ACIDS/PROTEIN HYDROLYS 30 ML LIQUID.PKT GT SCH ×3 (05:27→21:49)
[2021-04-25 06:48] LABS: BASO % 0.3 % (0-2.0); EOS % 0.9 % (0-4.5); HEMATOCRIT 29.2 % (32.4-45.2); HEMOGLOBIN 8.7 GM/dL (10.7-15.3); LYMPH % 14.8 % (8-40); MCHC 29.9 g/dl (32.0-36.0); MEAN PLT VOLUME 10.7 fl (7.5-11.1); MONO % 2.7 % (3.8-10.2); NEUT % 81.3 % (42.8-82.8); PLATELET COUNT 158 10^3/uL (134-434); RBC 3.01 M/mm3 (3.60-5.2); RDW 20.6 % (11.6-15.6); WHITE BLOOD COUNT 15.8 K/mm3 (4.0-10.0)
[2021-04-25 06:49] LABS: CHLORIDE 101 mmol/L (98-107); SODIUM 137 mmol/L (136-145)
[2021-04-25 06:54] LABS: ALBUMIN 1.8 g/dl (3.4-5.0); CALCIUM 8.7 mg/dL (8.5-10.1)
[2021-04-25 06:55] LABS: BLOOD UREA NITROGEN 59.4 mg/dL (7-18); CO2 26 mmol/L (21-32); GLUCOSE,RANDOM 237 mg/dL (74-106)
[2021-04-25 06:57] LABS: CREATININE 1.9 mg/dL (0.55-1.3)
[2021-04-25 06:58] LABS: SGOT/AST 51 U/L (15-37); SGPT/ALT 24 U/L (13-61)
[2021-04-25 06:59] LABS: BILIRUBIN,TOTAL 0.4 mg/dL (0.2-1); TOT PROT 5.1 g/dl (6.4-8.2)
[2021-04-25 07:00] LABS: ALK PHOS 112 U/L (45-117)
[2021-04-25 07:26] LABS: ANION GAP 9 MMOL/L (8-16)
[2021-04-25] MEDS: INSULIN (LEVEMIR) 100 UNITS/ML UNITS SQ SCH ×2 (07:38→21:48)
[2021-04-25] MEDS: INSULIN SLIDING SCALE (NOVOLOG) 1 VIAL SQ SCH ×4 (07:38→22:31)
[2021-04-25] MEDS: TOPIRAMATE 100 MG TABLET GT SCH ×2 (07:39→21:49)
[2021-04-25 09:07] LABS: ANISOCYTOSIS 1+; MACROCYTOSIS 0; PLATELET ESTIMATE NORMAL
[2021-04-25] MEDS ORDERED: MEROPENEM 500 MG VIAL (RESTRICTED TO ID) IVPB ONE ×2 (09:22→21:28)
[2021-04-25] MEDS ORDERED: DEXTROSE 5%-WATER - 50 ML IVPB ONE ×2 (09:22→21:29)
[2021-04-25] MEDS ORDERED: POTASSIUM CHLORIDE ORAL LIQUID 20 MEQ/15 ML PO ONE (10:15)
[2021-04-25] MEDS: SODIUM HYPOCHLORITE 0.5% 473 ML- BULK BOTTLE TP SCH (10:27)
[2021-04-25] MEDS: PANTOPRAZOLE SODIUM 40 MG VIAL IVPUSH SCH (10:29)
[2021-04-25] MEDS: MEROPENEM 500 MG in DEXTROSE 5%-WATER - 50 ML IVPB SCH ×2 (10:30→21:49)
[2021-04-25] MEDS: CLOPIDOGREL BISULFATE 75 MG TABLET (FP) GT SCH (10:31)
[2021-04-25] MEDS: ZINC SULFATE 220 MG CAPSULE (FP) GT SCH (10:31)
[2021-04-25] MEDS: MIDODRINE HCL 5 MG TABLET PO SCH (10:31)
[2021-04-25] MEDS: VITAMIN B COMP W-C 1 EA TABLET (NEPHRO-VITE) PO SCH (10:32)
[2021-04-25] MEDS: CARBIDOPA/LEVODOPA 25/100 TABLET (FP) GT SCH ×4 (10:32→21:49)
[2021-04-25] MEDS: FLUDROCORTISONE ACETATE 0.1 MG TABLET (FP) PO SCH (10:33)
[2021-04-25] MEDS: KCL 10 MEQ IVPB 10 MEQ/100 ML INFUS.BAG IVPB SCH ×2 (12:09→12:12)
[2021-04-25] MEDS: MIDODRINE HCL 5 MG TABLET GT SCH ×2 (13:40→18:37)
[2021-04-25] MEDS ORDERED: MIDODRINE HCL 5 MG TABLET PO SCH (14:00)
[2021-04-25] MEDS: CHLORHEXIDINE GLUCONATE 4% CLEANSER FOR DECOLONIZATION TP SCH (21:47)
[2021-04-25] MEDS: ATORVASTATIN CA 80 MG TABLET (FP) GT SCH (21:48)
[2021-04-26] MEDS: HYDROCORTISONE SOD SUCCINATE 100 MG/2 ML VIAL IVPB SCH ×3 (04:43→21:48)
[2021-04-26] MEDS: HEPARIN NA (PORCINE) 5,000 UNITS/ML 1ML VIAL SQ SCH ×3 (07:03→21:48)
[2021-04-26] MEDS: TOPIRAMATE 100 MG TABLET GT SCH ×2 (07:04→21:51)
[2021-04-26] MEDS: INSULIN (LEVEMIR) 100 UNITS/ML UNITS SQ SCH ×2 (07:04→22:15)
[2021-04-26] MEDS: INSULIN SLIDING SCALE (NOVOLOG) 1 VIAL SQ SCH ×4 (07:04→22:15)
[2021-04-26] MEDS: AMINO ACIDS/PROTEIN HYDROLYS 30 ML LIQUID.PKT GT SCH ×3 (07:04→21:50)
[2021-04-26 07:31] LABS: BASO % 0.3 % (0-2.0); EOS % 0.1 % (0-4.5); HEMATOCRIT 28.2 % (32.4-45.2); HEMOGLOBIN 8.3 GM/dL (10.7-15.3); LYMPH % 11.1 % (8-40); MCH 28.9 pg (25.7-33.7); MCHC 29.3 g/dl (32.0-36.0); MEAN CELL VOLUME 98.6 fl (80-96); MEAN PLT VOLUME 10.8 fl (7.5-11.1); MONO % 3.8 % (3.8-10.2); NEUT % 84.7 % (42.8-82.8); PLATELET COUNT 180 10^3/uL (134-434); RBC 2.86 M/mm3 (3.60-5.2); RDW 21.2 % (11.6-15.6); WHITE BLOOD COUNT 11.9 K/mm3 (4.0-10.0)
[2021-04-26 07:45] LABS: CHLORIDE 102 mmol/L (98-107); SODIUM 137 mmol/L (136-145)
[2021-04-26 07:51] LABS: CALCIUM 8.3 mg/dL (8.5-10.1)
[2021-04-26 07:52] LABS: ALBUMIN 1.5 g/dl (3.4-5.0); BLOOD UREA NITROGEN 77.8 mg/dL (7-18); CO2 24 mmol/L (21-32); CREATININE 2.2 mg/dL (0.55-1.3); GLUCOSE,RANDOM 358 mg/dL (74-106); SGPT/ALT 19 U/L (13-61)
[2021-04-26 07:53] LABS: SGOT/AST 29 U/L (15-37)
[2021-04-26 07:54] LABS: BILIRUBIN,TOTAL 0.3 mg/dL (0.2-1); TOT PROT 4.5 g/dl (6.4-8.2)
[2021-04-26 07:55] LABS: ALK PHOS 92 U/L (45-117); PHOSPHOROUS 3.4 mg/dL (2.5-4.9)
[2021-04-26 07:58] LABS: ANION GAP 11 MMOL/L (8-16)
[2021-04-26] MEDS ORDERED: DEXTROSE 5%-WATER - 50 ML IVPB ONE ×2 (08:44→21:03)
[2021-04-26] MEDS ORDERED: MEROPENEM 500 MG VIAL (RESTRICTED TO ID) IVPB ONE ×2 (08:44→21:03)
[2021-04-26] MEDS: KCL 10 MEQ IVPB 10 MEQ/100 ML INFUS.BAG IVPB SCH ×3 (10:02→11:53)
[2021-04-26] MEDS: SODIUM HYPOCHLORITE 0.5% 473 ML- BULK BOTTLE TP SCH (10:02)
[2021-04-26] MEDS: levETIRAcetam 500 MG/5 ML ORAL SOLUTION (UNIT-DOSE CUPS) GT SCH ×2 (10:03→21:49)
[2021-04-26] MEDS: FLUDROCORTISONE ACETATE 0.1 MG TABLET (FP) PO SCH (10:03)
[2021-04-26] MEDS: MIDODRINE HCL 5 MG TABLET GT SCH ×3 (10:04→17:31)
[2021-04-26] MEDS: PANTOPRAZOLE SODIUM 40 MG VIAL IVPUSH SCH (10:04)
[2021-04-26] MEDS: VITAMIN B COMP W-C 1 EA TABLET (NEPHRO-VITE) PO SCH (10:04)
[2021-04-26] MEDS: ZINC SULFATE 220 MG CAPSULE (FP) GT SCH (10:04)
[2021-04-26] MEDS: CLOPIDOGREL BISULFATE 75 MG TABLET (FP) GT SCH (10:04)
[2021-04-26] MEDS: MEROPENEM 500 MG in DEXTROSE 5%-WATER - 50 ML IVPB SCH ×2 (10:04→21:50)
[2021-04-26] MEDS: CARBIDOPA/LEVODOPA 25/100 TABLET (FP) GT SCH ×4 (10:05→21:50)
[2021-04-26] MEDS ORDERED: SODIUM CHLORIDE 500 ML IV STA (18:36)
[2021-04-26] MEDS: CHLORHEXIDINE GLUCONATE 4% CLEANSER FOR DECOLONIZATION TP SCH (21:49)
[2021-04-26] MEDS: ATORVASTATIN CA 80 MG TABLET (FP) GT SCH (21:50)
[2021-04-26] MEDS ORDERED: SODIUM CHLORIDE 100 ML IV STA (22:09)
[2021-04-27] MEDS: HYDROCORTISONE SOD SUCCINATE 100 MG/2 ML VIAL IVPB SCH ×3 (03:51→21:52)
[2021-04-27] MEDS: HEPARIN NA (PORCINE) 5,000 UNITS/ML 1ML VIAL SQ SCH ×3 (07:15→21:49)
[2021-04-27] MEDS: AMINO ACIDS/PROTEIN HYDROLYS 30 ML LIQUID.PKT GT SCH ×3 (07:16→21:51)
[2021-04-27] MEDS: INSULIN (LEVEMIR) 100 UNITS/ML UNITS SQ SCH ×2 (07:16→22:20)
[2021-04-27] MEDS: INSULIN SLIDING SCALE (NOVOLOG) 1 VIAL SQ SCH ×4 (07:17→22:21)
[2021-04-27] MEDS ORDERED: SODIUM CHLORIDE 250 ML IV PRN (07:17)
[2021-04-27] MEDS: TOPIRAMATE 100 MG TABLET GT SCH ×2 (07:17→21:52)
[2021-04-27] MEDS ORDERED: EPOETIN ALFA-EPBX 20,000 UNIT/ML VIAL SQ ONE (08:00)
[2021-04-27] MEDS ORDERED: DEXTROSE 5%-WATER - 50 ML IVPB ONE ×2 (08:38→21:04)
[2021-04-27] MEDS ORDERED: MEROPENEM 500 MG VIAL (RESTRICTED TO ID) IVPB ONE ×2 (08:38→21:04)
[2021-04-27] MEDS ORDERED: EPOETIN ALFA-EPBX 10,000 UNIT/ML VIAL SQ ONE (08:48)
[2021-04-27] MEDS: FLUDROCORTISONE ACETATE 0.1 MG TABLET (FP) PO SCH (09:40)
[2021-04-27] MEDS: VITAMIN B COMP W-C 1 EA TABLET (NEPHRO-VITE) PO SCH (09:40)
[2021-04-27] MEDS: CLOPIDOGREL BISULFATE 75 MG TABLET (FP) GT SCH (09:41)
[2021-04-27] MEDS: ZINC SULFATE 220 MG CAPSULE (FP) GT SCH (09:41)
[2021-04-27] MEDS: MIDODRINE HCL 5 MG TABLET GT SCH ×3 (09:42→17:23)
[2021-04-27] MEDS: SODIUM HYPOCHLORITE 0.5% 473 ML- BULK BOTTLE TP SCH (09:43)
[2021-04-27] MEDS: MEROPENEM 500 MG in DEXTROSE 5%-WATER - 50 ML IVPB SCH ×2 (09:47→21:51)
[2021-04-27] MEDS: CARBIDOPA/LEVODOPA 25/100 TABLET (FP) GT SCH ×4 (09:55→21:51)
[2021-04-27] MEDS ORDERED: levETIRAcetam 500 MG/5 ML ORAL SOLUTION (UNIT-DOSE CUPS) GT SCH (10:00)
[2021-04-27] MEDS: FAMOTIDINE 40 MG/5 ML ORAL SUSPENSION NGT SCH (10:18)
[2021-04-27 11:23] LABS: BASO % 0.1 % (0-2.0); EOS % 0.3 % (0-4.5); HEMATOCRIT 32.6 % (32.4-45.2); HEMOGLOBIN 9.8 GM/dL (10.7-15.3); MCH 29.2 pg (25.7-33.7); MCHC 30.2 g/dl (32.0-36.0); MEAN CELL VOLUME 96.7 fl (80-96); MEAN PLT VOLUME 10.7 fl (7.5-11.1); MONO % 4.6 % (3.8-10.2); PLATELET COUNT 213 10^3/uL (134-434); RBC 3.37 M/mm3 (3.60-5.2); RDW 23.7 % (11.6-15.6); WHITE BLOOD COUNT 11.6 K/mm3 (4.0-10.0)
[2021-04-27 11:38] LABS: CHLORIDE 103 mmol/L (98-107); SODIUM 141 mmol/L (136-145)
[2021-04-27 11:41] LABS: CALCIUM 8.1 mg/dL (8.5-10.1); CO2 30 mmol/L (21-32)
[2021-04-27 11:42] LABS: ALBUMIN 1.8 g/dl (3.4-5.0); GLUCOSE,RANDOM 162 mg/dL (74-106)
[2021-04-27 11:44] LABS: SGPT/ALT 21 U/L (13-61)
[2021-04-27 11:45] LABS: SGOT/AST 34 U/L (15-37)
[2021-04-27 11:46] LABS: BILIRUBIN,TOTAL 0.5 mg/dL (0.2-1); TOT PROT 5.1 g/dl (6.4-8.2)
[2021-04-27 11:47] LABS: ALK PHOS 91 U/L (45-117)
[2021-04-27 12:00] LABS: ANION GAP 8 MMOL/L (8-16); BLOOD UREA NITROGEN 31.6 mg/dL (7-18)
[2021-04-27] MEDS: KCL 10 MEQ IVPB 10 MEQ/100 ML INFUS.BAG IVPB SCH ×2 (12:30→13:17)
[2021-04-27] MEDS: levETIRAcetam 500 MG/5 ML ORAL SOLUTION (UNIT-DOSE CUPS) GT SCH (21:50)
[2021-04-27] MEDS: ATORVASTATIN CA 80 MG TABLET (FP) GT SCH (21:51)
[2021-04-28] MEDS: SCOPOLAMINE HYDROBROMIDE 1 PATCH PATCH.TD72 TD SCH (03:00)
[2021-04-28] MEDS: INSULIN SLIDING SCALE (NOVOLOG) 1 VIAL SQ SCH ×4 (06:48→22:55)
[2021-04-28] MEDS: INSULIN (LEVEMIR) 100 UNITS/ML UNITS SQ SCH ×2 (06:48→22:55)
[2021-04-28] MEDS: TOPIRAMATE 100 MG TABLET GT SCH ×2 (06:48→22:30)
[2021-04-28] MEDS: HEPARIN NA (PORCINE) 5,000 UNITS/ML 1ML VIAL SQ SCH ×3 (06:48→22:30)
[2021-04-28] MEDS: AMINO ACIDS/PROTEIN HYDROLYS 30 ML LIQUID.PKT GT SCH ×3 (06:48→22:30)
[2021-04-28 07:19] LABS: BASO % 0.2 % (0-2.0); EOS % 0.1 % (0-4.5); HEMATOCRIT 34.1 % (32.4-45.2); HEMOGLOBIN 10.5 GM/dL (10.7-15.3); LYMPH % 14.4 % (8-40); MCHC 30.8 g/dl (32.0-36.0); MEAN CELL VOLUME 97.5 fl (80-96); MEAN PLT VOLUME 10.2 fl (7.5-11.1); MONO % 6.1 % (3.8-10.2); NEUT % 79.2 % (42.8-82.8); PLATELET COUNT 191 10^3/uL (134-434); RDW 25.4 % (11.6-15.6); WHITE BLOOD COUNT 11.1 K/mm3 (4.0-10.0)
[2021-04-28 07:36] LABS: CHLORIDE 102 mmol/L (98-107); SODIUM 139 mmol/L (136-145)
[2021-04-28 07:38] LABS: CALCIUM 8.3 mg/dL (8.5-10.1); CO2 24 mmol/L (21-32); GLUCOSE,RANDOM 230 mg/dL (74-106)
[2021-04-28 07:41] LABS: CREATININE 2.1 mg/dL (0.55-1.3)
[2021-04-28 07:42] LABS: ANION GAP 14 MMOL/L (8-16); BLOOD UREA NITROGEN 67.8 mg/dL (7-18)
[2021-04-28] MEDS ORDERED: MEROPENEM 500 MG VIAL (RESTRICTED TO ID) IVPB ONE ×2 (09:56→21:33)
[2021-04-28] MEDS ORDERED: DEXTROSE 5%-WATER - 50 ML IVPB ONE ×2 (09:56→21:35)
[2021-04-28] MEDS: CLOPIDOGREL BISULFATE 75 MG TABLET (FP) GT SCH (10:36)
[2021-04-28] MEDS: CARBIDOPA/LEVODOPA 25/100 TABLET (FP) GT SCH ×4 (10:36→22:30)
[2021-04-28] MEDS: MEROPENEM 500 MG in DEXTROSE 5%-WATER - 50 ML IVPB SCH ×2 (10:37→22:30)
[2021-04-28] MEDS: VITAMIN B COMP W-C 1 EA TABLET (NEPHRO-VITE) PO SCH (10:39)
[2021-04-28] MEDS: MIDODRINE HCL 5 MG TABLET GT SCH ×3 (10:39→17:23)
[2021-04-28] MEDS: FLUDROCORTISONE ACETATE 0.1 MG TABLET (FP) PO SCH (10:40)
[2021-04-28] MEDS: SODIUM HYPOCHLORITE 0.5% 473 ML- BULK BOTTLE TP SCH (10:40)
[2021-04-28] MEDS: ZINC SULFATE 220 MG CAPSULE (FP) GT SCH (10:40)
[2021-04-28] MEDS: levETIRAcetam 500 MG/5 ML ORAL SOLUTION (UNIT-DOSE CUPS) GT SCH ×2 (10:41→22:30)
[2021-04-28] MEDS: HYDROCORTISONE SOD SUCCINATE 100 MG/2 ML VIAL IVPB SCH ×2 (10:42→22:30)
[2021-04-28] MEDS: FAMOTIDINE 40 MG/5 ML ORAL SUSPENSION NGT SCH (10:42)
[2021-04-28 10:43] LABS: ANISOCYTOSIS 3+; MACROCYTOSIS 3+; PLATELET ESTIMATE NORMAL; TARGET CELLS 1+
[2021-04-28] MEDS: KCL 10 MEQ IVPB 10 MEQ/100 ML INFUS.BAG IVPB SCH ×3 (10:46→14:03)
[2021-04-28] MEDS ORDERED: EPOETIN ALFA-EPBX 20,000 UNIT/ML VIAL SQ ONE (18:24)
[2021-04-28] MEDS: ATORVASTATIN CA 80 MG TABLET (FP) GT SCH (22:30)
[2021-04-29] MEDS: HEPARIN NA (PORCINE) 5,000 UNITS/ML 1ML VIAL SQ SCH ×3 (06:07→22:04)
[2021-04-29] MEDS: AMINO ACIDS/PROTEIN HYDROLYS 30 ML LIQUID.PKT GT SCH ×3 (06:07→22:08)
[2021-04-29] MEDS: INSULIN (LEVEMIR) 100 UNITS/ML UNITS SQ SCH ×2 (06:08→22:04)
[2021-04-29] MEDS: CARBIDOPA/LEVODOPA 25/100 TABLET (FP) GT SCH ×3 (06:08→22:05)
[2021-04-29] MEDS: TOPIRAMATE 100 MG TABLET GT SCH ×2 (06:09→22:05)
[2021-04-29] MEDS: INSULIN SLIDING SCALE (NOVOLOG) 1 VIAL SQ SCH ×4 (06:18→22:04)
[2021-04-29] MEDS ORDERED: MEROPENEM 500 MG VIAL (RESTRICTED TO ID) IVPB ONE ×2 (10:49→21:39)
[2021-04-29] MEDS ORDERED: DEXTROSE 5%-WATER - 50 ML IVPB ONE ×2 (10:49→21:40)
[2021-04-29] MEDS: SODIUM HYPOCHLORITE 0.5% 473 ML- BULK BOTTLE TP SCH (10:51)
[2021-04-29] MEDS: VITAMIN B COMP W-C 1 EA TABLET (NEPHRO-VITE) PO SCH (10:52)
[2021-04-29] MEDS: levETIRAcetam 500 MG/5 ML ORAL SOLUTION (UNIT-DOSE CUPS) GT SCH ×2 (10:52→22:05)
[2021-04-29] MEDS: ZINC SULFATE 220 MG CAPSULE (FP) GT SCH (10:53)
[2021-04-29] MEDS: CLOPIDOGREL BISULFATE 75 MG TABLET (FP) GT SCH (10:53)
[2021-04-29] MEDS: HYDROCORTISONE SOD SUCCINATE 100 MG/2 ML VIAL IVPB SCH (11:31)
[2021-04-29] MEDS: MEROPENEM 500 MG in DEXTROSE 5%-WATER - 50 ML IVPB SCH ×2 (12:02→22:05)
[2021-04-29] MEDS: FAMOTIDINE 40 MG/5 ML ORAL SUSPENSION NGT SCH (12:11)
[2021-04-29] MEDS: MIDODRINE HCL 5 MG TABLET GT SCH ×3 (12:16→17:18)
[2021-04-29] MEDS: FLUDROCORTISONE ACETATE 0.1 MG TABLET (FP) PO SCH (12:16)
[2021-04-29] MEDS: ATORVASTATIN CA 80 MG TABLET (FP) GT SCH (22:05)
[2021-04-30] MEDS: HEPARIN NA (PORCINE) 5,000 UNITS/ML 1ML VIAL SQ SCH ×3 (05:50→21:23)
[2021-04-30] MEDS: AMINO ACIDS/PROTEIN HYDROLYS 30 ML LIQUID.PKT GT SCH ×3 (05:50→21:23)
[2021-04-30] MEDS: CARBIDOPA/LEVODOPA 25/100 TABLET (FP) GT SCH ×3 (05:50→21:23)
[2021-04-30] MEDS: INSULIN (LEVEMIR) 100 UNITS/ML UNITS SQ SCH ×2 (06:01→21:26)
[2021-04-30] MEDS: TOPIRAMATE 100 MG TABLET GT SCH ×2 (06:01→21:24)
[2021-04-30] MEDS: INSULIN SLIDING SCALE (NOVOLOG) 1 VIAL SQ SCH ×4 (06:01→21:25)
[2021-04-30] MEDS ORDERED: SODIUM CHLORIDE 250 ML IV PRN (06:44)
[2021-04-30] MEDS ORDERED: EPOETIN ALFA-EPBX 10,000 UNIT/ML VIAL IVPUSH ONE (08:00)
[2021-04-30 08:54] LABS: HEMATOCRIT 28.8 % (32.4-45.2); HEMOGLOBIN 8.7 GM/dL (10.7-15.3); MCH 30.5 pg (25.7-33.7); MCHC 30.4 g/dl (32.0-36.0); MEAN CELL VOLUME 100.4 fl (80-96); MEAN PLT VOLUME 10.7 fl (7.5-11.1); PLATELET COUNT 126 10^3/uL (134-434); RBC 2.87 M/mm3 (3.60-5.2); RDW 25.2 % (11.6-15.6); WHITE BLOOD COUNT 10.8 K/mm3 (4.0-10.0)
[2021-04-30 09:44] LABS: CHLORIDE 102 mmol/L (98-107); SODIUM 137 mmol/L (136-145)
[2021-04-30 09:49] LABS: ALBUMIN 1.6 g/dl (3.4-5.0); CALCIUM 8.1 mg/dL (8.5-10.1); CO2 22 mmol/L (21-32); GLUCOSE,RANDOM 282 mg/dL (74-106)
[2021-04-30 09:50] LABS: BLOOD UREA NITROGEN 86.4 mg/dL (7-18)
[2021-04-30 09:52] LABS: SGPT/ALT 19 U/L (13-61)
[2021-04-30 09:53] LABS: CREATININE 2.6 mg/dL (0.55-1.3); SGOT/AST 39 U/L (15-37)
[2021-04-30 09:54] LABS: BILIRUBIN,TOTAL 0.5 mg/dL (0.2-1); TOT PROT 4.4 g/dl (6.4-8.2)
[2021-04-30 09:55] LABS: ALK PHOS 113 U/L (45-117)
[2021-04-30] MEDS ORDERED: MEROPENEM 500 MG VIAL (RESTRICTED TO ID) IVPB ONE ×2 (10:13→21:04)
[2021-04-30] MEDS ORDERED: DEXTROSE 5%-WATER - 50 ML IVPB ONE ×2 (10:13→21:04)
[2021-04-30] MEDS: MEROPENEM 500 MG in DEXTROSE 5%-WATER - 50 ML IVPB SCH (10:25)
[2021-04-30] MEDS: VITAMIN B COMP W-C 1 EA TABLET (NEPHRO-VITE) PO SCH (10:26)
[2021-04-30] MEDS: FAMOTIDINE 40 MG/5 ML ORAL SUSPENSION NGT SCH (10:26)
[2021-04-30] MEDS: ZINC SULFATE 220 MG CAPSULE (FP) GT SCH (10:26)
[2021-04-30] MEDS: CLOPIDOGREL BISULFATE 75 MG TABLET (FP) GT SCH (10:26)
[2021-04-30] MEDS: MIDODRINE HCL 5 MG TABLET GT SCH ×3 (10:27→18:00)
[2021-04-30] MEDS: levETIRAcetam 500 MG/5 ML ORAL SOLUTION (UNIT-DOSE CUPS) GT SCH ×2 (10:27→21:23)
[2021-04-30 10:50] LABS: ANION GAP 12 MMOL/L (8-16)
[2021-04-30] MEDS ORDERED: INSULIN SLIDING SCALE (NOVOLOG) 1 VIAL SQ ONE (11:27)
[2021-04-30] MEDS: SODIUM HYPOCHLORITE 0.5% 473 ML- BULK BOTTLE TP SCH (12:28)
[2021-04-30] MEDS: POTASSIUM CHLORIDE ORAL LIQUID 20 MEQ/15 ML PO SCH (21:23)
[2021-04-30] MEDS: ATORVASTATIN CA 80 MG TABLET (FP) GT SCH (21:23)
[2021-04-30] MEDS: metroNIDAZOLE 250 MG TABLET GT SCH (21:32)
[2021-05-01] MEDS: SCOPOLAMINE HYDROBROMIDE 1 PATCH PATCH.TD72 TD SCH (04:58)
[2021-05-01] MEDS: CARBIDOPA/LEVODOPA 25/100 TABLET (FP) GT SCH ×3 (06:07→21:40)
[2021-05-01] MEDS: TOPIRAMATE 100 MG TABLET GT SCH ×2 (06:07→21:40)
[2021-05-01] MEDS: metroNIDAZOLE 250 MG TABLET GT SCH ×3 (06:07→21:40)
[2021-05-01] MEDS: AMINO ACIDS/PROTEIN HYDROLYS 30 ML LIQUID.PKT GT SCH ×3 (06:07→21:40)
[2021-05-01] MEDS: INSULIN SLIDING SCALE (NOVOLOG) 1 VIAL SQ SCH ×4 (06:08→21:38)
[2021-05-01] MEDS: HEPARIN NA (PORCINE) 5,000 UNITS/ML 1ML VIAL SQ SCH ×3 (06:08→21:40)
[2021-05-01] MEDS: INSULIN (LEVEMIR) 100 UNITS/ML UNITS SQ SCH ×2 (06:08→21:38)
[2021-05-01] MEDS: POTASSIUM CHLORIDE ORAL LIQUID 20 MEQ/15 ML PO SCH ×2 (10:10→21:39)
[2021-05-01] MEDS: ZINC SULFATE 220 MG CAPSULE (FP) GT SCH (10:11)
[2021-05-01] MEDS: FAMOTIDINE 40 MG/5 ML ORAL SUSPENSION NGT SCH (10:11)
[2021-05-01] MEDS: levETIRAcetam 500 MG/5 ML ORAL SOLUTION (UNIT-DOSE CUPS) GT SCH ×2 (10:11→21:40)
[2021-05-01] MEDS: CLOPIDOGREL BISULFATE 75 MG TABLET (FP) GT SCH (10:11)
[2021-05-01] MEDS: VITAMIN B COMP W-C 1 EA TABLET (NEPHRO-VITE) PO SCH (10:11)
[2021-05-01] MEDS: MIDODRINE HCL 5 MG TABLET GT SCH ×3 (10:12→17:55)
[2021-05-01] MEDS: SODIUM HYPOCHLORITE 0.5% 473 ML- BULK BOTTLE TP SCH (10:12)
[2021-05-01] MEDS: ATORVASTATIN CA 80 MG TABLET (FP) GT SCH (21:40)
[2021-05-02] MEDS: AMINO ACIDS/PROTEIN HYDROLYS 30 ML LIQUID.PKT GT SCH ×3 (06:24→22:06)
[2021-05-02] MEDS: metroNIDAZOLE 250 MG TABLET GT SCH ×3 (06:24→22:06)
[2021-05-02] MEDS: CARBIDOPA/LEVODOPA 25/100 TABLET (FP) GT SCH ×3 (06:24→22:06)
[2021-05-02] MEDS: HEPARIN NA (PORCINE) 5,000 UNITS/ML 1ML VIAL SQ SCH ×3 (06:24→22:06)
[2021-05-02] MEDS: TOPIRAMATE 100 MG TABLET GT SCH ×2 (06:24→22:05)
[2021-05-02] MEDS: INSULIN (LEVEMIR) 100 UNITS/ML UNITS SQ SCH ×2 (06:25→22:07)
[2021-05-02] MEDS: INSULIN SLIDING SCALE (NOVOLOG) 1 VIAL SQ SCH ×4 (06:25→22:07)
[2021-05-02] MEDS: levETIRAcetam 500 MG/5 ML ORAL SOLUTION (UNIT-DOSE CUPS) GT SCH ×2 (09:34→22:06)
[2021-05-02] MEDS: POTASSIUM CHLORIDE ORAL LIQUID 20 MEQ/15 ML PO SCH ×2 (09:34→22:05)
[2021-05-02] MEDS: MIDODRINE HCL 5 MG TABLET GT SCH ×3 (09:35→18:00)
[2021-05-02] MEDS: CLOPIDOGREL BISULFATE 75 MG TABLET (FP) GT SCH (09:35)
[2021-05-02] MEDS: ZINC SULFATE 220 MG CAPSULE (FP) GT SCH (09:35)
[2021-05-02] MEDS: VITAMIN B COMP W-C 1 EA TABLET (NEPHRO-VITE) PO SCH (09:35)
[2021-05-02] MEDS: FAMOTIDINE 40 MG/5 ML ORAL SUSPENSION NGT SCH (09:35)
[2021-05-02] MEDS: SODIUM HYPOCHLORITE 0.5% 473 ML- BULK BOTTLE TP SCH (09:35)
[2021-05-02 09:39] LABS: BLOOD UREA NITROGEN 71.4 mg/dL (7-18); CALCIUM 8.9 mg/dL (8.5-10.1)
[2021-05-02 09:42] LABS: CREATININE 2.5 mg/dL (0.55-1.3)
[2021-05-02] MEDS: ATORVASTATIN CA 80 MG TABLET (FP) GT SCH (22:05)
[2021-05-02] MEDS: ACETAMINOPHEN 650 MG/20.3 ML ORAL SOLUTION (CUPS) GT PRN (22:34)
[2021-05-03] MEDS: AMINO ACIDS/PROTEIN HYDROLYS 30 ML LIQUID.PKT GT SCH ×3 (06:18→21:50)
[2021-05-03] MEDS: HEPARIN NA (PORCINE) 5,000 UNITS/ML 1ML VIAL SQ SCH ×3 (06:18→21:49)
[2021-05-03] MEDS: metroNIDAZOLE 250 MG TABLET GT SCH ×2 (06:18→14:30)
[2021-05-03] MEDS: CARBIDOPA/LEVODOPA 25/100 TABLET (FP) GT SCH ×3 (06:18→21:50)
[2021-05-03] MEDS: INSULIN (LEVEMIR) 100 UNITS/ML UNITS SQ SCH ×2 (06:18→22:14)
[2021-05-03] MEDS: TOPIRAMATE 100 MG TABLET GT SCH ×2 (06:18→21:51)
[2021-05-03] MEDS: INSULIN SLIDING SCALE (NOVOLOG) 1 VIAL SQ SCH ×4 (06:19→22:13)
[2021-05-03] MEDS: MIDODRINE HCL 5 MG TABLET GT SCH ×3 (09:30→18:42)
[2021-05-03] MEDS ORDERED: EPOETIN ALFA-EPBX 10,000 UNIT/ML VIAL SQ ONE (10:00)
[2021-05-03] MEDS ORDERED: SODIUM CHLORIDE 250 ML IV PRN (10:00)
[2021-05-03] MEDS: ALBUMIN HUMAN 25% 12.5 GM/50 ML VIAL IV SCH ×4 (10:15→13:36)
[2021-05-03 11:39] LABS: HEMATOCRIT 28.2 % (32.4-45.2); HEMOGLOBIN 8.4 GM/dL (10.7-15.3); MCH 30.7 pg (25.7-33.7); MCHC 29.7 g/dl (32.0-36.0); MEAN CELL VOLUME 103.4 fl (80-96); MEAN PLT VOLUME 10.6 fl (7.5-11.1); PLATELET COUNT 97 10^3/uL (134-434); RBC 2.72 M/mm3 (3.60-5.2); RDW 25.5 % (11.6-15.6); WHITE BLOOD COUNT 13.8 K/mm3 (4.0-10.0)
[2021-05-03 12:13] LABS: BLOOD UREA NITROGEN 86.2 mg/dL (7-18); CALCIUM 8.4 mg/dL (8.5-10.1)
[2021-05-03 12:17] LABS: CREATININE 2.7 mg/dL (0.55-1.3)
[2021-05-03] MEDS: FAMOTIDINE 40 MG/5 ML ORAL SUSPENSION NGT SCH (14:30)
[2021-05-03] MEDS: SODIUM HYPOCHLORITE 0.5% 473 ML- BULK BOTTLE TP SCH (15:12)
[2021-05-03] MEDS: POTASSIUM CHLORIDE ORAL LIQUID 20 MEQ/15 ML PO SCH (15:14)
[2021-05-03] MEDS: ZINC SULFATE 220 MG CAPSULE (FP) GT SCH (16:32)
[2021-05-03] MEDS: levETIRAcetam 500 MG/5 ML ORAL SOLUTION (UNIT-DOSE CUPS) GT SCH (16:32)
[2021-05-03] MEDS: VITAMIN B COMP W-C 1 EA TABLET (NEPHRO-VITE) PO SCH (16:32)
[2021-05-03] MEDS: CLOPIDOGREL BISULFATE 75 MG TABLET (FP) GT SCH (16:33)
[2021-05-03] MEDS: ATORVASTATIN CA 80 MG TABLET (FP) GT SCH (21:50)
[2021-05-04] MEDS: SCOPOLAMINE HYDROBROMIDE 1 PATCH PATCH.TD72 TD SCH (02:24)
[2021-05-04] MEDS: levETIRAcetam 500 MG/5 ML ORAL SOLUTION (UNIT-DOSE CUPS) GT SCH ×3 (02:29→22:12)
[2021-05-04] MEDS: AMINO ACIDS/PROTEIN HYDROLYS 30 ML LIQUID.PKT GT SCH ×3 (05:12→22:13)
[2021-05-04] MEDS: HEPARIN NA (PORCINE) 5,000 UNITS/ML 1ML VIAL SQ SCH ×3 (05:12→22:12)
[2021-05-04] MEDS: CARBIDOPA/LEVODOPA 25/100 TABLET (FP) GT SCH ×3 (05:12→22:13)
[2021-05-04] MEDS: INSULIN SLIDING SCALE (NOVOLOG) 1 VIAL SQ SCH ×4 (06:25→22:28)
[2021-05-04] MEDS: TOPIRAMATE 100 MG TABLET GT SCH ×2 (06:27→22:14)
[2021-05-04] MEDS: INSULIN (LEVEMIR) 100 UNITS/ML UNITS SQ SCH (06:27)
[2021-05-04] MEDS: VITAMIN B COMP W-C 1 EA TABLET (NEPHRO-VITE) PO SCH (10:44)
[2021-05-04] MEDS: ZINC SULFATE 220 MG CAPSULE (FP) GT SCH (10:44)
[2021-05-04] MEDS: MIDODRINE HCL 5 MG TABLET GT SCH ×3 (10:44→18:50)
[2021-05-04] MEDS: CLOPIDOGREL BISULFATE 75 MG TABLET (FP) GT SCH (10:44)
[2021-05-04] MEDS: FAMOTIDINE 40 MG/5 ML ORAL SUSPENSION NGT SCH (11:28)
[2021-05-04] MEDS: SODIUM HYPOCHLORITE 0.5% 473 ML- BULK BOTTLE TP SCH (12:05)
[2021-05-04] MEDS ORDERED: INSULIN SLIDING SCALE (NOVOLOG) 1 VIAL SQ ONE (19:29)
[2021-05-04] MEDS: ATORVASTATIN CA 80 MG TABLET (FP) GT SCH (22:13)
[2021-05-05] MEDS: INSULIN (LEVEMIR) 100 UNITS/ML UNITS SQ SCH ×3 (00:39→23:46)
[2021-05-05] MEDS: AMINO ACIDS/PROTEIN HYDROLYS 30 ML LIQUID.PKT GT SCH ×3 (05:48→22:07)
[2021-05-05] MEDS: CARBIDOPA/LEVODOPA 25/100 TABLET (FP) GT SCH ×3 (05:48→22:05)
[2021-05-05] MEDS: INSULIN SLIDING SCALE (NOVOLOG) 1 VIAL SQ SCH ×4 (06:05→23:48)
[2021-05-05] MEDS: TOPIRAMATE 100 MG TABLET GT SCH ×2 (06:07→22:03)
[2021-05-05] MEDS: HEPARIN NA (PORCINE) 5,000 UNITS/ML 1ML VIAL SQ SCH ×4 (06:23→21:56)
[2021-05-05] MEDS ORDERED: SODIUM CHLORIDE 250 ML IV PRN (10:00)
[2021-05-05] MEDS ORDERED: EPOETIN ALFA-EPBX 10,000 UNIT/ML VIAL IVPUSH ONE (10:00)
[2021-05-05] MEDS: CLOPIDOGREL BISULFATE 75 MG TABLET (FP) GT SCH (11:27)
[2021-05-05] MEDS: MIDODRINE HCL 5 MG TABLET GT SCH ×3 (11:27→17:01)
[2021-05-05] MEDS: levETIRAcetam 500 MG/5 ML ORAL SOLUTION (UNIT-DOSE CUPS) GT SCH ×2 (11:28→22:02)
[2021-05-05] MEDS: FAMOTIDINE 40 MG/5 ML ORAL SUSPENSION NGT SCH (11:28)
[2021-05-05] MEDS: ZINC SULFATE 220 MG CAPSULE (FP) GT SCH (11:28)
[2021-05-05] MEDS: VITAMIN B COMP W-C 1 EA TABLET (NEPHRO-VITE) PO SCH (11:28)
[2021-05-05] MEDS: SODIUM HYPOCHLORITE 0.5% 473 ML- BULK BOTTLE TP SCH (15:08)
[2021-05-05] MEDS: COLLAGENASE CLOSTRIDIUM HIST. 30 GRAMS TUBE TP SCH (15:09)
[2021-05-05] MEDS: ATORVASTATIN CA 80 MG TABLET (FP) GT SCH (23:49)
[2021-05-06] MEDS: HEPARIN NA (PORCINE) 5,000 UNITS/ML 1ML VIAL SQ SCH ×3 (05:41→22:05)
[2021-05-06] MEDS: AMINO ACIDS/PROTEIN HYDROLYS 30 ML LIQUID.PKT GT SCH ×3 (05:42→22:11)
[2021-05-06] MEDS: CARBIDOPA/LEVODOPA 25/100 TABLET (FP) GT SCH ×3 (05:42→22:11)
[2021-05-06] MEDS: INSULIN (LEVEMIR) 100 UNITS/ML UNITS SQ SCH ×2 (06:13→22:00)
[2021-05-06] MEDS: INSULIN SLIDING SCALE (NOVOLOG) 1 VIAL SQ SCH ×4 (06:14→22:00)
[2021-05-06] MEDS: TOPIRAMATE 100 MG TABLET GT SCH ×2 (06:20→22:11)
[2021-05-06] MEDS: COLLAGENASE CLOSTRIDIUM HIST. 30 GRAMS TUBE TP SCH (10:06)
[2021-05-06] MEDS: MIDODRINE HCL 5 MG TABLET GT SCH ×3 (10:07→17:37)
[2021-05-06] MEDS: SODIUM HYPOCHLORITE 0.5% 473 ML- BULK BOTTLE TP SCH (10:07)
[2021-05-06] MEDS: levETIRAcetam 500 MG/5 ML ORAL SOLUTION (UNIT-DOSE CUPS) GT SCH ×2 (10:07→22:08)
[2021-05-06] MEDS: ZINC SULFATE 220 MG CAPSULE (FP) GT SCH (10:08)
[2021-05-06] MEDS: FAMOTIDINE 40 MG/5 ML ORAL SUSPENSION NGT SCH (10:08)
[2021-05-06] MEDS: VITAMIN B COMP W-C 1 EA TABLET (NEPHRO-VITE) PO SCH (10:08)
[2021-05-06] MEDS: CLOPIDOGREL BISULFATE 75 MG TABLET (FP) GT SCH (10:08)
[2021-05-06] MEDS ORDERED: SODIUM CHLORIDE 250 ML IV PRN (10:10)
[2021-05-06] MEDS: ATORVASTATIN CA 80 MG TABLET (FP) GT SCH (22:00)
[2021-05-06] MEDS: ACETAMINOPHEN 650 MG/20.3 ML ORAL SOLUTION (CUPS) GT PRN (22:08)
[2021-05-07] MEDS: HEPARIN NA (PORCINE) 5,000 UNITS/ML 1ML VIAL SQ SCH ×3 (06:58→21:38)
[2021-05-07] MEDS: INSULIN (LEVEMIR) 100 UNITS/ML UNITS SQ SCH ×2 (06:59→21:38)
[2021-05-07] MEDS: AMINO ACIDS/PROTEIN HYDROLYS 30 ML LIQUID.PKT GT SCH ×3 (06:59→21:39)
[2021-05-07] MEDS: CARBIDOPA/LEVODOPA 25/100 TABLET (FP) GT SCH ×3 (06:59→21:37)
[2021-05-07] MEDS: INSULIN SLIDING SCALE (NOVOLOG) 1 VIAL SQ SCH ×4 (07:00→21:57)
[2021-05-07] MEDS ORDERED: EPOETIN ALFA-EPBX 10,000 UNIT/ML VIAL IVPUSH ONE (09:00)
[2021-05-07 10:26] LABS: HEMATOCRIT 26.2 % (32.4-45.2); HEMOGLOBIN 8.1 GM/dL (10.7-15.3); MCH 31.1 pg (25.7-33.7); MEAN CELL VOLUME 100.3 fl (80-96); MEAN PLT VOLUME 10.2 fl (7.5-11.1); PLATELET COUNT 80 10^3/uL (134-434); RBC 2.61 M/mm3 (3.60-5.2); RDW 23.7 % (11.6-15.6); WHITE BLOOD COUNT 11.5 K/mm3 (4.0-10.0)
[2021-05-07 10:51] LABS: CALCIUM 8.5 mg/dL (8.5-10.1)
[2021-05-07 10:56] LABS: CREATININE 2.5 mg/dL (0.55-1.3)
[2021-05-07] MEDS: FAMOTIDINE 40 MG/5 ML ORAL SUSPENSION NGT SCH (13:18)
[2021-05-07] MEDS: CLOPIDOGREL BISULFATE 75 MG TABLET (FP) GT SCH (13:19)
[2021-05-07] MEDS: MIDODRINE HCL 5 MG TABLET GT SCH ×3 (13:19→18:00)
[2021-05-07] MEDS: VITAMIN B COMP W-C 1 EA TABLET (NEPHRO-VITE) PO SCH (13:20)
[2021-05-07] MEDS: ZINC SULFATE 220 MG CAPSULE (FP) GT SCH (13:20)
[2021-05-07] MEDS: levETIRAcetam 500 MG/5 ML ORAL SOLUTION (UNIT-DOSE CUPS) GT SCH ×2 (13:20→21:38)
[2021-05-07] MEDS: SCOPOLAMINE HYDROBROMIDE 1 PATCH PATCH.TD72 TD SCH (13:21)
[2021-05-07] MEDS: COLLAGENASE CLOSTRIDIUM HIST. 30 GRAMS TUBE TP SCH (13:21)
[2021-05-07] MEDS: SODIUM HYPOCHLORITE 0.5% 473 ML- BULK BOTTLE TP SCH (13:22)
[2021-05-07] MEDS: ATORVASTATIN CA 80 MG TABLET (FP) GT SCH (21:37)
[2021-05-07] MEDS: TOPIRAMATE 100 MG TABLET GT SCH (21:39)
[2021-05-08] MEDS: AMINO ACIDS/PROTEIN HYDROLYS 30 ML LIQUID.PKT GT SCH ×3 (05:39→23:22)
[2021-05-08] MEDS: CARBIDOPA/LEVODOPA 25/100 TABLET (FP) GT SCH ×3 (05:39→23:22)
[2021-05-08] MEDS: HEPARIN NA (PORCINE) 5,000 UNITS/ML 1ML VIAL SQ SCH ×3 (05:39→23:24)
[2021-05-08] MEDS: TOPIRAMATE 100 MG TABLET GT SCH ×2 (06:09→23:22)
[2021-05-08] MEDS: INSULIN (LEVEMIR) 100 UNITS/ML UNITS SQ SCH ×2 (06:09→23:22)
[2021-05-08] MEDS: INSULIN SLIDING SCALE (NOVOLOG) 1 VIAL SQ SCH ×4 (06:10→23:22)
[2021-05-08] MEDS: MIDODRINE HCL 5 MG TABLET GT SCH ×3 (11:00→19:02)
[2021-05-08] MEDS: ZINC SULFATE 220 MG CAPSULE (FP) GT SCH (11:00)
[2021-05-08] MEDS: VITAMIN B COMP W-C 1 EA TABLET (NEPHRO-VITE) PO SCH (11:00)
[2021-05-08] MEDS: FAMOTIDINE 40 MG/5 ML ORAL SUSPENSION NGT SCH (11:01)
[2021-05-08] MEDS: levETIRAcetam 500 MG/5 ML ORAL SOLUTION (UNIT-DOSE CUPS) GT SCH ×2 (11:01→23:22)
[2021-05-08] MEDS: CLOPIDOGREL BISULFATE 75 MG TABLET (FP) GT SCH (11:01)
[2021-05-08] MEDS: COLLAGENASE CLOSTRIDIUM HIST. 30 GRAMS TUBE TP SCH (11:02)
[2021-05-08] MEDS: SODIUM HYPOCHLORITE 0.5% 473 ML- BULK BOTTLE TP SCH (11:02)
[2021-05-08] MEDS: ACETAMINOPHEN 650 MG/20.3 ML ORAL SOLUTION (CUPS) GT PRN (14:23)
[2021-05-08] MEDS: ATORVASTATIN CA 80 MG TABLET (FP) GT SCH (23:21)
[2021-05-09] MEDS: HEPARIN NA (PORCINE) 5,000 UNITS/ML 1ML VIAL SQ SCH ×3 (07:23→21:47)
[2021-05-09] MEDS: TOPIRAMATE 100 MG TABLET GT SCH ×3 (07:23→21:47)
[2021-05-09] MEDS: CARBIDOPA/LEVODOPA 25/100 TABLET (FP) GT SCH ×3 (07:23→21:46)
[2021-05-09] MEDS: INSULIN (LEVEMIR) 100 UNITS/ML UNITS SQ SCH ×2 (07:24→21:47)
[2021-05-09] MEDS: INSULIN SLIDING SCALE (NOVOLOG) 1 VIAL SQ SCH ×4 (07:24→21:48)
[2021-05-09] MEDS: AMINO ACIDS/PROTEIN HYDROLYS 30 ML LIQUID.PKT GT SCH ×3 (07:24→21:47)
[2021-05-09] MEDS: MIDODRINE HCL 5 MG TABLET GT SCH (10:49)
[2021-05-09] MEDS: CLOPIDOGREL BISULFATE 75 MG TABLET (FP) GT SCH (10:50)
[2021-05-09] MEDS: ZINC SULFATE 220 MG CAPSULE (FP) GT SCH (10:50)
[2021-05-09] MEDS: levETIRAcetam 500 MG/5 ML ORAL SOLUTION (UNIT-DOSE CUPS) GT SCH ×2 (10:50→21:47)
[2021-05-09] MEDS: VITAMIN B COMP W-C 1 EA TABLET (NEPHRO-VITE) PO SCH (10:50)
[2021-05-09] MEDS: SODIUM HYPOCHLORITE 0.5% 473 ML- BULK BOTTLE TP SCH (10:51)
[2021-05-09] MEDS: COLLAGENASE CLOSTRIDIUM HIST. 30 GRAMS TUBE TP SCH (10:51)
[2021-05-09] MEDS: FAMOTIDINE 40 MG/5 ML ORAL SUSPENSION NGT SCH (10:53)
[2021-05-09] MEDS: ACETAMINOPHEN 650 MG/20.3 ML ORAL SOLUTION (CUPS) GT PRN (15:19)
[2021-05-09] MEDS: ATORVASTATIN CA 80 MG TABLET (FP) GT SCH (21:46)
[2021-05-10] MEDS: SCOPOLAMINE HYDROBROMIDE 1 PATCH PATCH.TD72 TD SCH (02:08)
[2021-05-10] MEDS: AMINO ACIDS/PROTEIN HYDROLYS 30 ML LIQUID.PKT GT SCH ×3 (05:10→21:27)
[2021-05-10] MEDS: HEPARIN NA (PORCINE) 5,000 UNITS/ML 1ML VIAL SQ SCH ×2 (05:10→21:27)
[2021-05-10] MEDS: CARBIDOPA/LEVODOPA 25/100 TABLET (FP) GT SCH ×3 (05:10→21:27)
[2021-05-10] MEDS: INSULIN SLIDING SCALE (NOVOLOG) 1 VIAL SQ SCH ×4 (06:14→21:27)
[2021-05-10] MEDS: INSULIN (LEVEMIR) 100 UNITS/ML UNITS SQ SCH ×2 (06:15→21:28)
[2021-05-10] MEDS: TOPIRAMATE 100 MG TABLET GT SCH ×2 (06:15→21:28)
[2021-05-10] MEDS: MIDODRINE HCL 5 MG TABLET GT SCH ×2 (06:46→11:03)
[2021-05-10] MEDS ORDERED: SODIUM CHLORIDE 250 ML IV PRN (07:00)
[2021-05-10] MEDS ORDERED: EPOETIN ALFA-EPBX 10,000 UNIT/ML VIAL SQ ONE (07:00)
[2021-05-10 07:56] LABS: BASO % 0.5 % (0-2.0); EOS % 1.5 % (0-4.5); HEMATOCRIT 25.6 % (32.4-45.2); LYMPH % 18.3 % (8-40); MCH 31.2 pg (25.7-33.7); MCHC 31.3 g/dl (32.0-36.0); MEAN CELL VOLUME 99.5 fl (80-96); MEAN PLT VOLUME 9.9 fl (7.5-11.1); MONO % 5.6 % (3.8-10.2); NEUT % 74.1 % (42.8-82.8); PLATELET COUNT 83 10^3/uL (134-434); RBC 2.58 M/mm3 (3.60-5.2); RDW 22.6 % (11.6-15.6); WHITE BLOOD COUNT 8.2 K/mm3 (4.0-10.0)
[2021-05-10 08:09] LABS: CALCIUM 8.6 mg/dL (8.5-10.1)
[2021-05-10 08:10] LABS: ALBUMIN 1.8 g/dl (3.4-5.0); BLOOD UREA NITROGEN 68.4 mg/dL (7-18)
[2021-05-10 08:13] LABS: CREATININE 2.6 mg/dL (0.55-1.3)
[2021-05-10 08:14] LABS: TOT PROT 4.8 g/dl (6.4-8.2)
[2021-05-10 08:15] LABS: BILIRUBIN,TOTAL 0.4 mg/dL (0.2-1)
[2021-05-10 08:34] LABS: ANISOCYTOSIS 1+; MACROCYTOSIS 1+; OVALOCYTE 1+; PLATELET ESTIMATE DECREASED
[2021-05-10] MEDS: CLOPIDOGREL BISULFATE 75 MG TABLET (FP) GT SCH (11:06)
[2021-05-10] MEDS: ZINC SULFATE 220 MG CAPSULE (FP) GT SCH (11:06)
[2021-05-10] MEDS: FAMOTIDINE 40 MG/5 ML ORAL SUSPENSION NGT SCH (11:06)
[2021-05-10] MEDS: VITAMIN B COMP W-C 1 EA TABLET (NEPHRO-VITE) PO SCH (11:06)
[2021-05-10] MEDS: levETIRAcetam 500 MG/5 ML ORAL SOLUTION (UNIT-DOSE CUPS) GT SCH ×2 (11:07→21:27)
[2021-05-10] MEDS: COLLAGENASE CLOSTRIDIUM HIST. 30 GRAMS TUBE TP SCH (13:00)
[2021-05-10] MEDS: SODIUM HYPOCHLORITE 0.5% 473 ML- BULK BOTTLE TP SCH (13:00)
[2021-05-10] MEDS: ATORVASTATIN CA 80 MG TABLET (FP) GT SCH (21:28)
[2021-05-11] MEDS: CARBIDOPA/LEVODOPA 25/100 TABLET (FP) GT SCH ×3 (06:13→21:45)
[2021-05-11] MEDS: TOPIRAMATE 100 MG TABLET GT SCH ×2 (06:14→21:45)
[2021-05-11] MEDS: HEPARIN NA (PORCINE) 5,000 UNITS/ML 1ML VIAL SQ SCH ×3 (06:14→21:43)
[2021-05-11] MEDS: AMINO ACIDS/PROTEIN HYDROLYS 30 ML LIQUID.PKT GT SCH ×3 (06:14→21:45)
[2021-05-11] MEDS: INSULIN SLIDING SCALE (NOVOLOG) 1 VIAL SQ SCH ×4 (06:14→21:45)
[2021-05-11] MEDS: INSULIN (LEVEMIR) 100 UNITS/ML UNITS SQ SCH ×2 (06:14→21:46)
[2021-05-11] MEDS: FAMOTIDINE 40 MG/5 ML ORAL SUSPENSION NGT SCH (10:44)
[2021-05-11] MEDS: MIDODRINE HCL 5 MG TABLET GT SCH (10:44)
[2021-05-11] MEDS: CLOPIDOGREL BISULFATE 75 MG TABLET (FP) GT SCH (10:44)
[2021-05-11] MEDS: VITAMIN B COMP W-C 1 EA TABLET (NEPHRO-VITE) PO SCH (10:44)
[2021-05-11] MEDS: levETIRAcetam 500 MG/5 ML ORAL SOLUTION (UNIT-DOSE CUPS) GT SCH ×2 (10:44→21:44)
[2021-05-11] MEDS: ZINC SULFATE 220 MG CAPSULE (FP) GT SCH (10:44)
[2021-05-11] MEDS: SODIUM HYPOCHLORITE 0.5% 473 ML- BULK BOTTLE TP SCH (10:47)
[2021-05-11] MEDS: COLLAGENASE CLOSTRIDIUM HIST. 30 GRAMS TUBE TP SCH (10:48)
[2021-05-11] MEDS: ATORVASTATIN CA 80 MG TABLET (FP) GT SCH (21:45)
[2021-05-12] MEDS: TOPIRAMATE 100 MG TABLET GT SCH ×2 (06:48→21:42)
[2021-05-12] MEDS: INSULIN SLIDING SCALE (NOVOLOG) 1 VIAL SQ SCH ×4 (06:48→21:44)
[2021-05-12] MEDS: CARBIDOPA/LEVODOPA 25/100 TABLET (FP) GT SCH ×3 (06:48→21:43)
[2021-05-12] MEDS: HEPARIN NA (PORCINE) 5,000 UNITS/ML 1ML VIAL SQ SCH ×3 (06:48→21:42)
[2021-05-12] MEDS: INSULIN (LEVEMIR) 100 UNITS/ML UNITS SQ SCH ×2 (06:48→21:43)
[2021-05-12] MEDS: AMINO ACIDS/PROTEIN HYDROLYS 30 ML LIQUID.PKT GT SCH ×3 (06:48→21:43)
[2021-05-12] MEDS: MIDODRINE HCL 5 MG TABLET GT SCH (09:29)
[2021-05-12] MEDS: ZINC SULFATE 220 MG CAPSULE (FP) GT SCH (12:54)
[2021-05-12] MEDS: VITAMIN B COMP W-C 1 EA TABLET (NEPHRO-VITE) PO SCH (12:54)
[2021-05-12] MEDS: CLOPIDOGREL BISULFATE 75 MG TABLET (FP) GT SCH (12:54)
[2021-05-12] MEDS: FAMOTIDINE 40 MG/5 ML ORAL SUSPENSION NGT SCH (12:55)
[2021-05-12] MEDS: COLLAGENASE CLOSTRIDIUM HIST. 30 GRAMS TUBE TP SCH (12:55)
[2021-05-12] MEDS: levETIRAcetam 500 MG/5 ML ORAL SOLUTION (UNIT-DOSE CUPS) GT SCH ×2 (12:55→21:42)
[2021-05-12] MEDS: SODIUM HYPOCHLORITE 0.5% 473 ML- BULK BOTTLE TP SCH (12:55)
[2021-05-12] MEDS: ATORVASTATIN CA 80 MG TABLET (FP) GT SCH (21:43)
[2021-05-13] MEDS: SCOPOLAMINE HYDROBROMIDE 1 PATCH PATCH.TD72 TD SCH (01:36)
[2021-05-13] MEDS: CARBIDOPA/LEVODOPA 25/100 TABLET (FP) GT SCH ×3 (06:22→22:17)
[2021-05-13] MEDS: HEPARIN NA (PORCINE) 5,000 UNITS/ML 1ML VIAL SQ SCH ×3 (06:22→22:17)
[2021-05-13] MEDS: AMINO ACIDS/PROTEIN HYDROLYS 30 ML LIQUID.PKT GT SCH ×3 (06:22→22:22)
[2021-05-13] MEDS: TOPIRAMATE 100 MG TABLET GT SCH ×2 (06:28→22:17)
[2021-05-13] MEDS: INSULIN (LEVEMIR) 100 UNITS/ML UNITS SQ SCH ×2 (06:28→22:18)
[2021-05-13] MEDS: INSULIN SLIDING SCALE (NOVOLOG) 1 VIAL SQ SCH ×4 (06:49→22:17)
[2021-05-13] MEDS: SODIUM HYPOCHLORITE 0.5% 473 ML- BULK BOTTLE TP SCH (09:46)
[2021-05-13] MEDS: ZINC SULFATE 220 MG CAPSULE (FP) GT SCH (09:47)
[2021-05-13] MEDS: VITAMIN B COMP W-C 1 EA TABLET (NEPHRO-VITE) PO SCH (09:47)
[2021-05-13] MEDS: CLOPIDOGREL BISULFATE 75 MG TABLET (FP) GT SCH (09:47)
[2021-05-13] MEDS: levETIRAcetam 500 MG/5 ML ORAL SOLUTION (UNIT-DOSE CUPS) GT SCH ×2 (09:47→22:20)
[2021-05-13] MEDS: FAMOTIDINE 40 MG/5 ML ORAL SUSPENSION NGT SCH (09:48)
[2021-05-13] MEDS: MIDODRINE HCL 5 MG TABLET GT SCH (10:27)
[2021-05-13] MEDS: COLLAGENASE CLOSTRIDIUM HIST. 30 GRAMS TUBE TP SCH (10:27)
[2021-05-13] MEDS: ATORVASTATIN CA 80 MG TABLET (FP) GT SCH (22:17)
[2021-05-14] MEDS: TOPIRAMATE 100 MG TABLET GT SCH ×2 (06:23→22:14)
[2021-05-14] MEDS: INSULIN SLIDING SCALE (NOVOLOG) 1 VIAL SQ SCH ×4 (06:23→22:15)
[2021-05-14] MEDS: INSULIN (LEVEMIR) 100 UNITS/ML UNITS SQ SCH ×2 (06:23→22:15)
[2021-05-14] MEDS: CARBIDOPA/LEVODOPA 25/100 TABLET (FP) GT SCH ×3 (06:23→22:14)
[2021-05-14] MEDS: AMINO ACIDS/PROTEIN HYDROLYS 30 ML LIQUID.PKT GT SCH ×3 (06:23→22:15)
[2021-05-14] MEDS: HEPARIN NA (PORCINE) 5,000 UNITS/ML 1ML VIAL SQ SCH ×3 (06:24→22:15)
[2021-05-14] MEDS: MIDODRINE HCL 5 MG TABLET GT SCH ×2 (07:23→11:05)
[2021-05-14] MEDS ORDERED: SODIUM CHLORIDE 250 ML IV PRN (07:34)
[2021-05-14] MEDS: ALBUMIN HUMAN 25% 12.5 GM/50 ML VIAL IV SCH ×4 (07:45→09:15)
[2021-05-14] MEDS ORDERED: EPOETIN ALFA-EPBX 10,000 UNIT/ML VIAL SQ ONE ×2 (07:45→10:15)
[2021-05-14 09:04] LABS: HEMATOCRIT 25.5 % (32.4-45.2); HEMOGLOBIN 7.8 GM/dL (10.7-15.3); MCH 30.7 pg (25.7-33.7); MCHC 30.7 g/dl (32.0-36.0); MEAN PLT VOLUME 10.1 fl (7.5-11.1); PLATELET COUNT 161 10^3/uL (134-434); RBC 2.55 M/mm3 (3.60-5.2); RDW 21.1 % (11.6-15.6); WHITE BLOOD COUNT 5.7 K/mm3 (4.0-10.0)
[2021-05-14 09:35] LABS: CALCIUM 8.5 mg/dL (8.5-10.1)
[2021-05-14 09:36] LABS: BLOOD UREA NITROGEN 54.3 mg/dL (7-18)
[2021-05-14 09:39] LABS: CREATININE 2.2 mg/dL (0.55-1.3)
[2021-05-14] MEDS: ZINC SULFATE 220 MG CAPSULE (FP) GT SCH (11:01)
[2021-05-14] MEDS: VITAMIN B COMP W-C 1 EA TABLET (NEPHRO-VITE) PO SCH (11:02)
[2021-05-14] MEDS: FAMOTIDINE 40 MG/5 ML ORAL SUSPENSION NGT SCH (11:04)
[2021-05-14] MEDS: SODIUM HYPOCHLORITE 0.5% 473 ML- BULK BOTTLE TP SCH (11:04)
[2021-05-14] MEDS: levETIRAcetam 500 MG/5 ML ORAL SOLUTION (UNIT-DOSE CUPS) GT SCH ×2 (11:04→22:15)
[2021-05-14] MEDS: CLOPIDOGREL BISULFATE 75 MG TABLET (FP) GT SCH (11:05)
[2021-05-14] MEDS: COLLAGENASE CLOSTRIDIUM HIST. 30 GRAMS TUBE TP SCH (11:05)
[2021-05-14] MEDS: ATORVASTATIN CA 80 MG TABLET (FP) GT SCH (22:13)
[2021-05-15] MEDS: CARBIDOPA/LEVODOPA 25/100 TABLET (FP) GT SCH ×3 (05:58→21:43)
[2021-05-15] MEDS: AMINO ACIDS/PROTEIN HYDROLYS 30 ML LIQUID.PKT GT SCH ×3 (05:58→21:42)
[2021-05-15] MEDS: HEPARIN NA (PORCINE) 5,000 UNITS/ML 1ML VIAL SQ SCH ×3 (05:58→21:41)
[2021-05-15] MEDS: TOPIRAMATE 100 MG TABLET GT SCH ×2 (06:11→21:42)
[2021-05-15] MEDS: INSULIN SLIDING SCALE (NOVOLOG) 1 VIAL SQ SCH ×4 (06:11→21:43)
[2021-05-15] MEDS: INSULIN (LEVEMIR) 100 UNITS/ML UNITS SQ SCH ×2 (06:12→21:43)
[2021-05-15] MEDS: levETIRAcetam 500 MG/5 ML ORAL SOLUTION (UNIT-DOSE CUPS) GT SCH ×2 (10:20→21:41)
[2021-05-15] MEDS: FAMOTIDINE 40 MG/5 ML ORAL SUSPENSION NGT SCH (10:21)
[2021-05-15] MEDS: MIDODRINE HCL 5 MG TABLET GT SCH ×2 (10:21→13:57)
[2021-05-15] MEDS: ZINC SULFATE 220 MG CAPSULE (FP) GT SCH (10:21)
[2021-05-15] MEDS: CLOPIDOGREL BISULFATE 75 MG TABLET (FP) GT SCH (10:21)
[2021-05-15] MEDS: VITAMIN B COMP W-C 1 EA TABLET (NEPHRO-VITE) PO SCH (10:21)
[2021-05-15] MEDS: ACETAMINOPHEN 650 MG/20.3 ML ORAL SOLUTION (CUPS) GT PRN ×2 (13:18→21:41)
[2021-05-15] MEDS: COLLAGENASE CLOSTRIDIUM HIST. 30 GRAMS TUBE TP SCH (13:19)
[2021-05-15] MEDS: SODIUM HYPOCHLORITE 0.5% 473 ML- BULK BOTTLE TP SCH (13:19)
[2021-05-15] MEDS: ATORVASTATIN CA 80 MG TABLET (FP) GT SCH (21:43)
[2021-05-16] MEDS: SCOPOLAMINE HYDROBROMIDE 1 PATCH PATCH.TD72 TD SCH (01:43)
[2021-05-16] MEDS: CARBIDOPA/LEVODOPA 25/100 TABLET (FP) GT SCH ×3 (06:03→21:33)
[2021-05-16] MEDS: TOPIRAMATE 100 MG TABLET GT SCH ×2 (06:03→21:33)
[2021-05-16] MEDS: AMINO ACIDS/PROTEIN HYDROLYS 30 ML LIQUID.PKT GT SCH ×3 (06:03→21:33)
[2021-05-16] MEDS: INSULIN (LEVEMIR) 100 UNITS/ML UNITS SQ SCH ×2 (06:03→21:32)
[2021-05-16] MEDS: HEPARIN NA (PORCINE) 5,000 UNITS/ML 1ML VIAL SQ SCH ×3 (06:03→21:35)
[2021-05-16] MEDS: INSULIN SLIDING SCALE (NOVOLOG) 1 VIAL SQ SCH ×4 (06:04→21:32)
[2021-05-16] MEDS: FAMOTIDINE 40 MG/5 ML ORAL SUSPENSION NGT SCH (10:17)
[2021-05-16] MEDS: levETIRAcetam 500 MG/5 ML ORAL SOLUTION (UNIT-DOSE CUPS) GT SCH ×2 (10:17→21:33)
[2021-05-16] MEDS: CLOPIDOGREL BISULFATE 75 MG TABLET (FP) GT SCH (10:18)
[2021-05-16] MEDS: VITAMIN B COMP W-C 1 EA TABLET (NEPHRO-VITE) PO SCH (10:19)
[2021-05-16] MEDS: ZINC SULFATE 220 MG CAPSULE (FP) GT SCH (10:19)
[2021-05-16 10:23] LABS: BASO % 0.6 % (0-2.0); EOS % 2.5 % (0-4.5); HEMATOCRIT 26.9 % (32.4-45.2); HEMOGLOBIN 8.5 GM/dL (10.7-15.3); LYMPH % 25.3 % (8-40); MCH 31.3 pg (25.7-33.7); MCHC 31.5 g/dl (32.0-36.0); MEAN CELL VOLUME 99.4 fl (80-96); MEAN PLT VOLUME 9.6 fl (7.5-11.1); MONO % 10.8 % (3.8-10.2); NEUT % 60.8 % (42.8-82.8); PLATELET COUNT 221 10^3/uL (134-434); RBC 2.71 M/mm3 (3.60-5.2); RDW 20.5 % (11.6-15.6); WHITE BLOOD COUNT 5.9 K/mm3 (4.0-10.0)
[2021-05-16 10:36] LABS: CALCIUM 8.9 mg/dL (8.5-10.1)
[2021-05-16 10:37] LABS: BLOOD UREA NITROGEN 56.4 mg/dL (7-18)
[2021-05-16 10:40] LABS: CREATININE 2.2 mg/dL (0.55-1.3)
[2021-05-16 12:05] LABS: ANISOCYTOSIS 1+; MACROCYTOSIS 0
[2021-05-16] MEDS: SODIUM HYPOCHLORITE 0.5% 473 ML- BULK BOTTLE TP SCH (13:00)
[2021-05-16] MEDS: COLLAGENASE CLOSTRIDIUM HIST. 30 GRAMS TUBE TP SCH (13:00)
[2021-05-16] MEDS: MIDODRINE HCL 5 MG TABLET GT SCH (14:38)
[2021-05-16] MEDS: ATORVASTATIN CA 80 MG TABLET (FP) GT SCH (21:33)
[2021-05-17] MEDS: HEPARIN NA (PORCINE) 5,000 UNITS/ML 1ML VIAL SQ SCH ×2 (06:47→14:34)
[2021-05-17] MEDS: CARBIDOPA/LEVODOPA 25/100 TABLET (FP) GT SCH ×3 (06:48→21:35)
[2021-05-17] MEDS: INSULIN SLIDING SCALE (NOVOLOG) 1 VIAL SQ SCH ×4 (06:48→21:33)
[2021-05-17] MEDS: TOPIRAMATE 100 MG TABLET GT SCH ×2 (06:48→21:34)
[2021-05-17] MEDS: AMINO ACIDS/PROTEIN HYDROLYS 30 ML LIQUID.PKT GT SCH ×3 (06:48→21:34)
[2021-05-17] MEDS: INSULIN (LEVEMIR) 100 UNITS/ML UNITS SQ SCH ×2 (06:48→21:33)
[2021-05-17] MEDS ORDERED: SODIUM CHLORIDE 250 ML IV PRN (07:30)
[2021-05-17] MEDS ORDERED: EPOETIN ALFA 10,000 UNIT/1 ML VIAL IVPUSH ONE (09:00)
[2021-05-17] MEDS: VITAMIN B COMP W-C 1 EA TABLET (NEPHRO-VITE) PO SCH (10:37)
[2021-05-17] MEDS: CLOPIDOGREL BISULFATE 75 MG TABLET (FP) GT SCH (10:37)
[2021-05-17] MEDS: levETIRAcetam 500 MG/5 ML ORAL SOLUTION (UNIT-DOSE CUPS) GT SCH ×2 (10:37→21:35)
[2021-05-17] MEDS: COLLAGENASE CLOSTRIDIUM HIST. 30 GRAMS TUBE TP SCH (10:38)
[2021-05-17] MEDS: FAMOTIDINE 40 MG/5 ML ORAL SUSPENSION NGT SCH (10:38)
[2021-05-17] MEDS: MIDODRINE HCL 5 MG TABLET GT SCH (10:39)
[2021-05-17] MEDS: SODIUM HYPOCHLORITE 0.5% 473 ML- BULK BOTTLE TP SCH (10:39)
[2021-05-17] MEDS: ZINC SULFATE 220 MG CAPSULE (FP) GT SCH (14:34)
[2021-05-17] MEDS: ATORVASTATIN CA 80 MG TABLET (FP) GT SCH (21:35)
[2021-05-18] MEDS: AMINO ACIDS/PROTEIN HYDROLYS 30 ML LIQUID.PKT GT SCH ×3 (05:09→21:43)
[2021-05-18] MEDS: CARBIDOPA/LEVODOPA 25/100 TABLET (FP) GT SCH ×3 (05:09→21:43)
[2021-05-18] MEDS: TOPIRAMATE 100 MG TABLET GT SCH ×2 (06:01→21:43)
[2021-05-18] MEDS: INSULIN SLIDING SCALE (NOVOLOG) 1 VIAL SQ SCH ×4 (06:01→21:37)
[2021-05-18] MEDS: INSULIN (LEVEMIR) 100 UNITS/ML UNITS SQ SCH ×2 (06:01→21:43)
[2021-05-18] MEDS: SODIUM HYPOCHLORITE 0.5% 473 ML- BULK BOTTLE TP SCH (10:27)
[2021-05-18] MEDS: FAMOTIDINE 40 MG/5 ML ORAL SUSPENSION NGT SCH (10:27)
[2021-05-18] MEDS: levETIRAcetam 500 MG/5 ML ORAL SOLUTION (UNIT-DOSE CUPS) GT SCH ×2 (10:27→21:43)
[2021-05-18] MEDS: MIDODRINE HCL 5 MG TABLET GT SCH (10:28)
[2021-05-18] MEDS: CLOPIDOGREL BISULFATE 75 MG TABLET (FP) GT SCH (10:28)
[2021-05-18] MEDS: VITAMIN B COMP W-C 1 EA TABLET (NEPHRO-VITE) PO SCH (10:28)
[2021-05-18] MEDS: COLLAGENASE CLOSTRIDIUM HIST. 30 GRAMS TUBE TP SCH (10:28)
[2021-05-18] MEDS: ZINC SULFATE 220 MG CAPSULE (FP) GT SCH (10:28)
[2021-05-18] MEDS ORDERED: SODIUM CHLORIDE 250 ML IV PRN (16:21)
[2021-05-18] MEDS: ATORVASTATIN CA 80 MG TABLET (FP) GT SCH (21:43)
[2021-05-19] MEDS: SCOPOLAMINE HYDROBROMIDE 1 PATCH PATCH.TD72 TD SCH (03:01)
[2021-05-19] MEDS: AMINO ACIDS/PROTEIN HYDROLYS 30 ML LIQUID.PKT GT SCH ×3 (05:06→21:44)
[2021-05-19] MEDS: CARBIDOPA/LEVODOPA 25/100 TABLET (FP) GT SCH ×3 (05:06→21:44)
[2021-05-19] MEDS: INSULIN SLIDING SCALE (NOVOLOG) 1 VIAL SQ SCH ×4 (06:08→21:44)
[2021-05-19] MEDS: TOPIRAMATE 100 MG TABLET GT SCH ×2 (06:08→21:43)
[2021-05-19] MEDS: INSULIN (LEVEMIR) 100 UNITS/ML UNITS SQ SCH ×2 (06:08→21:44)
[2021-05-19] MEDS: CLOPIDOGREL BISULFATE 75 MG TABLET (FP) GT SCH (10:05)
[2021-05-19] MEDS: VITAMIN B COMP W-C 1 EA TABLET (NEPHRO-VITE) PO SCH (10:05)
[2021-05-19] MEDS: levETIRAcetam 500 MG/5 ML ORAL SOLUTION (UNIT-DOSE CUPS) GT SCH ×2 (10:05→21:44)
[2021-05-19] MEDS: FAMOTIDINE 40 MG/5 ML ORAL SUSPENSION NGT SCH (10:05)
[2021-05-19] MEDS: ZINC SULFATE 220 MG CAPSULE (FP) GT SCH (10:05)
[2021-05-19] MEDS: MIDODRINE HCL 5 MG TABLET GT SCH (10:05)
[2021-05-19] MEDS: SODIUM HYPOCHLORITE 0.5% 473 ML- BULK BOTTLE TP SCH (10:06)
[2021-05-19] MEDS: COLLAGENASE CLOSTRIDIUM HIST. 30 GRAMS TUBE TP SCH (10:06)
[2021-05-19] MEDS: ATORVASTATIN CA 80 MG TABLET (FP) GT SCH (21:44)
[2021-05-20] MEDS: INSULIN (LEVEMIR) 100 UNITS/ML UNITS SQ SCH ×2 (07:02→21:54)
[2021-05-20] MEDS: INSULIN SLIDING SCALE (NOVOLOG) 1 VIAL SQ SCH ×4 (07:02→21:54)
[2021-05-20] MEDS: CARBIDOPA/LEVODOPA 25/100 TABLET (FP) GT SCH ×3 (07:02→21:53)
[2021-05-20] MEDS: AMINO ACIDS/PROTEIN HYDROLYS 30 ML LIQUID.PKT GT SCH ×3 (07:02→21:53)
[2021-05-20] MEDS: TOPIRAMATE 100 MG TABLET GT SCH ×2 (07:02→21:53)
[2021-05-20] MEDS ORDERED: EPOETIN ALFA-EPBX 10,000 UNIT/ML VIAL IVPUSH ONE (11:45)
[2021-05-20 12:56] LABS: BASO % 0.5 % (0-2.0); EOS % 1.2 % (0-4.5); HEMATOCRIT 27.7 % (32.4-45.2); HEMOGLOBIN 8.8 GM/dL (10.7-15.3); LYMPH % 20.4 % (8-40); MCH 31.3 pg (25.7-33.7); MCHC 31.7 g/dl (32.0-36.0); MEAN CELL VOLUME 98.8 fl (80-96); MEAN PLT VOLUME 8.9 fl (7.5-11.1); NEUT % 64.9 % (42.8-82.8); PLATELET COUNT 358 10^3/uL (134-434); RDW 19.8 % (11.6-15.6); WHITE BLOOD COUNT 10.5 K/mm3 (4.0-10.0)
[2021-05-20] MEDS ORDERED: ALTEPLASE (CATHFLO) 2 MG/2 ML VIAL CVP ONE ×2 (13:00→13:15)
[2021-05-20 13:34] LABS: CALCIUM 8.9 mg/dL (8.5-10.1)
[2021-05-20 13:36] LABS: ALBUMIN 1.7 g/dl (3.4-5.0)
[2021-05-20 13:39] LABS: CREATININE 3.1 mg/dL (0.55-1.3)
[2021-05-20 13:41] LABS: BILIRUBIN,TOTAL 0.2 mg/dL (0.2-1); TOT PROT 5.2 g/dl (6.4-8.2)
[2021-05-20 13:45] LABS: BLOOD UREA NITROGEN 95.4 mg/dL (7-18)
[2021-05-20] MEDS: levETIRAcetam 500 MG/5 ML ORAL SOLUTION (UNIT-DOSE CUPS) GT SCH ×2 (14:45→21:53)
[2021-05-20] MEDS: FAMOTIDINE 40 MG/5 ML ORAL SUSPENSION NGT SCH (14:46)
[2021-05-20] MEDS: VITAMIN B COMP W-C 1 EA TABLET (NEPHRO-VITE) PO SCH (14:46)
[2021-05-20] MEDS: ZINC SULFATE 220 MG CAPSULE (FP) GT SCH (14:46)
[2021-05-20] MEDS: MIDODRINE HCL 5 MG TABLET GT SCH (14:47)
[2021-05-20] MEDS: CLOPIDOGREL BISULFATE 75 MG TABLET (FP) GT SCH (14:47)
[2021-05-20] MEDS: ALBUMIN HUMAN 25% 12.5 GM/50 ML VIAL IV SCH ×4 (15:00→16:47)
[2021-05-20] MEDS: COLLAGENASE CLOSTRIDIUM HIST. 30 GRAMS TUBE TP SCH (17:29)
[2021-05-20] MEDS: SODIUM HYPOCHLORITE 0.5% 473 ML- BULK BOTTLE TP SCH (17:30)
[2021-05-20] MEDS: ATORVASTATIN CA 80 MG TABLET (FP) GT SCH (21:53)
[2021-05-21] MEDS: TOPIRAMATE 100 MG TABLET GT SCH ×2 (06:13→21:36)
[2021-05-21] MEDS: CARBIDOPA/LEVODOPA 25/100 TABLET (FP) GT SCH ×3 (06:13→21:34)
[2021-05-21] MEDS: ACETAMINOPHEN 650 MG/20.3 ML ORAL SOLUTION (CUPS) GT PRN (06:14)
[2021-05-21] MEDS: AMINO ACIDS/PROTEIN HYDROLYS 30 ML LIQUID.PKT GT SCH ×3 (06:14→21:35)
[2021-05-21] MEDS: INSULIN SLIDING SCALE (NOVOLOG) 1 VIAL SQ SCH ×4 (06:14→21:38)
[2021-05-21] MEDS: INSULIN (LEVEMIR) 100 UNITS/ML UNITS SQ SCH ×2 (06:14→21:33)
[2021-05-21] MEDS: FAMOTIDINE 40 MG/5 ML ORAL SUSPENSION NGT SCH (10:11)
[2021-05-21] MEDS: levETIRAcetam 500 MG/5 ML ORAL SOLUTION (UNIT-DOSE CUPS) GT SCH ×2 (10:11→21:39)
[2021-05-21] MEDS: MIDODRINE HCL 5 MG TABLET GT SCH (10:11)
[2021-05-21] MEDS: VITAMIN B COMP W-C 1 EA TABLET (NEPHRO-VITE) PO SCH (10:11)
[2021-05-21] MEDS: ZINC SULFATE 220 MG CAPSULE (FP) GT SCH (10:11)
[2021-05-21] MEDS: CLOPIDOGREL BISULFATE 75 MG TABLET (FP) GT SCH (10:11)
[2021-05-21] MEDS: COLLAGENASE CLOSTRIDIUM HIST. 30 GRAMS TUBE TP SCH (10:12)
[2021-05-21] MEDS: SODIUM HYPOCHLORITE 0.5% 473 ML- BULK BOTTLE TP SCH (10:12)
[2021-05-21] MEDS: ATORVASTATIN CA 80 MG TABLET (FP) GT SCH ×2 (21:34→21:35)
[2021-05-22] MEDS: SCOPOLAMINE HYDROBROMIDE 1 PATCH PATCH.TD72 TD SCH (02:30)
[2021-05-22] MEDS: INSULIN (LEVEMIR) 100 UNITS/ML UNITS SQ SCH ×2 (06:19→22:10)
[2021-05-22] MEDS: CARBIDOPA/LEVODOPA 25/100 TABLET (FP) GT SCH ×3 (06:20→22:05)
[2021-05-22] MEDS: TOPIRAMATE 100 MG TABLET GT SCH ×2 (06:20→22:05)
[2021-05-22] MEDS: AMINO ACIDS/PROTEIN HYDROLYS 30 ML LIQUID.PKT GT SCH ×3 (06:20→22:05)
[2021-05-22] MEDS: INSULIN SLIDING SCALE (NOVOLOG) 1 VIAL SQ SCH ×4 (06:21→22:10)
[2021-05-22] MEDS ORDERED: SODIUM CHLORIDE 250 ML IV PRN (07:00)
[2021-05-22] MEDS ORDERED: EPOETIN ALFA-EPBX 10,000 UNIT/ML VIAL SQ ONE (07:00)
[2021-05-22] MEDS: ALBUMIN HUMAN 25% 12.5 GM/50 ML VIAL IV SCH ×4 (07:00→09:39)
[2021-05-22 08:15] LABS: BASO % 0.3 % (0-2.0); EOS % 0.8 % (0-4.5); HEMATOCRIT 26.9 % (32.4-45.2); HEMOGLOBIN 8.3 GM/dL (10.7-15.3); LYMPH % 16.6 % (8-40); MCH 30.7 pg (25.7-33.7); MCHC 30.9 g/dl (32.0-36.0); MEAN CELL VOLUME 99.1 fl (80-96); MEAN PLT VOLUME 9.1 fl (7.5-11.1); MONO % 10.5 % (3.8-10.2); NEUT % 71.8 % (42.8-82.8); PLATELET COUNT 265 10^3/uL (134-434); RBC 2.71 M/mm3 (3.60-5.2); RDW 19.3 % (11.6-15.6); WHITE BLOOD COUNT 11.6 K/mm3 (4.0-10.0)
[2021-05-22 08:36] LABS: CALCIUM 8.7 mg/dL (8.5-10.1)
[2021-05-22 08:38] LABS: CREATININE 3.1 mg/dL (0.55-1.3)
[2021-05-22] MEDS: CLOPIDOGREL BISULFATE 75 MG TABLET (FP) GT SCH (10:25)
[2021-05-22] MEDS: VITAMIN B COMP W-C 1 EA TABLET (NEPHRO-VITE) PO SCH (10:25)
[2021-05-22] MEDS: ZINC SULFATE 220 MG CAPSULE (FP) GT SCH (10:26)
[2021-05-22] MEDS: MIDODRINE HCL 5 MG TABLET GT SCH (10:26)
[2021-05-22] MEDS: FAMOTIDINE 40 MG/5 ML ORAL SUSPENSION NGT SCH (10:26)
[2021-05-22] MEDS: levETIRAcetam 500 MG/5 ML ORAL SOLUTION (UNIT-DOSE CUPS) GT SCH ×2 (10:26→22:05)
[2021-05-22] MEDS: SODIUM HYPOCHLORITE 0.5% 473 ML- BULK BOTTLE TP SCH (13:07)
[2021-05-22] MEDS: COLLAGENASE CLOSTRIDIUM HIST. 30 GRAMS TUBE TP SCH (13:07)
[2021-05-22] MEDS: ACETAMINOPHEN 650 MG/20.3 ML ORAL SOLUTION (CUPS) GT PRN (14:47)
[2021-05-22] MEDS: ATORVASTATIN CA 80 MG TABLET (FP) GT SCH (22:05)
[2021-05-23] MEDS: INSULIN SLIDING SCALE (NOVOLOG) 1 VIAL SQ SCH ×4 (06:35→22:39)
[2021-05-23] MEDS: CARBIDOPA/LEVODOPA 25/100 TABLET (FP) GT SCH ×3 (06:35→22:39)
[2021-05-23] MEDS: INSULIN (LEVEMIR) 100 UNITS/ML UNITS SQ SCH ×2 (06:35→22:39)
[2021-05-23] MEDS: AMINO ACIDS/PROTEIN HYDROLYS 30 ML LIQUID.PKT GT SCH ×3 (06:35→22:39)
[2021-05-23] MEDS: TOPIRAMATE 100 MG TABLET GT SCH ×2 (06:35→22:39)
[2021-05-23] MEDS: ZINC SULFATE 220 MG CAPSULE (FP) GT SCH (09:19)
[2021-05-23] MEDS: SODIUM HYPOCHLORITE 0.5% 473 ML- BULK BOTTLE TP SCH (09:19)
[2021-05-23] MEDS: levETIRAcetam 500 MG/5 ML ORAL SOLUTION (UNIT-DOSE CUPS) GT SCH ×2 (09:19→22:39)
[2021-05-23] MEDS: COLLAGENASE CLOSTRIDIUM HIST. 30 GRAMS TUBE TP SCH (09:19)
[2021-05-23] MEDS: MIDODRINE HCL 5 MG TABLET GT SCH (09:20)
[2021-05-23] MEDS: CLOPIDOGREL BISULFATE 75 MG TABLET (FP) GT SCH (09:20)
[2021-05-23] MEDS: VITAMIN B COMP W-C 1 EA TABLET (NEPHRO-VITE) PO SCH (09:20)
[2021-05-23] MEDS: FAMOTIDINE 40 MG/5 ML ORAL SUSPENSION NGT SCH (10:04)
[2021-05-23] MEDS: ATORVASTATIN CA 80 MG TABLET (FP) GT SCH (22:39)
[2021-05-24] MEDS: CARBIDOPA/LEVODOPA 25/100 TABLET (FP) GT SCH ×3 (05:18→22:09)
[2021-05-24] MEDS: AMINO ACIDS/PROTEIN HYDROLYS 30 ML LIQUID.PKT GT SCH ×3 (05:18→22:09)
[2021-05-24] MEDS: TOPIRAMATE 100 MG TABLET GT SCH ×2 (06:06→22:09)
[2021-05-24] MEDS: INSULIN SLIDING SCALE (NOVOLOG) 1 VIAL SQ SCH ×4 (06:06→22:09)
[2021-05-24] MEDS: INSULIN (LEVEMIR) 100 UNITS/ML UNITS SQ SCH ×2 (06:07→22:11)
[2021-05-24] MEDS: levETIRAcetam 500 MG/5 ML ORAL SOLUTION (UNIT-DOSE CUPS) GT SCH ×2 (09:33→22:09)
[2021-05-24] MEDS: SODIUM HYPOCHLORITE 0.5% 473 ML- BULK BOTTLE TP SCH (09:33)
[2021-05-24] MEDS: FAMOTIDINE 40 MG/5 ML ORAL SUSPENSION NGT SCH (09:33)
[2021-05-24] MEDS: MIDODRINE HCL 5 MG TABLET GT SCH (09:33)
[2021-05-24] MEDS: COLLAGENASE CLOSTRIDIUM HIST. 30 GRAMS TUBE TP SCH (09:33)
[2021-05-24] MEDS: ZINC SULFATE 220 MG CAPSULE (FP) GT SCH (09:33)
[2021-05-24] MEDS: CLOPIDOGREL BISULFATE 75 MG TABLET (FP) GT SCH (09:34)
[2021-05-24] MEDS: VITAMIN B COMP W-C 1 EA TABLET (NEPHRO-VITE) PO SCH (09:34)
[2021-05-24] MEDS: ATORVASTATIN CA 80 MG TABLET (FP) GT SCH (22:09)
[2021-05-25] MEDS: SCOPOLAMINE HYDROBROMIDE 1 PATCH PATCH.TD72 TD SCH (01:31)
[2021-05-25] MEDS: INSULIN (LEVEMIR) 100 UNITS/ML UNITS SQ SCH ×2 (06:21→21:16)
[2021-05-25] MEDS: CARBIDOPA/LEVODOPA 25/100 TABLET (FP) GT SCH ×3 (06:22→21:15)
[2021-05-25] MEDS: TOPIRAMATE 100 MG TABLET GT SCH ×2 (06:22→21:15)
[2021-05-25] MEDS: AMINO ACIDS/PROTEIN HYDROLYS 30 ML LIQUID.PKT GT SCH ×3 (06:22→21:15)
[2021-05-25] MEDS: ACETAMINOPHEN 650 MG/20.3 ML ORAL SOLUTION (CUPS) GT PRN ×2 (06:22→17:35)
[2021-05-25] MEDS: INSULIN SLIDING SCALE (NOVOLOG) 1 VIAL SQ SCH ×4 (06:23→21:16)
[2021-05-25] MEDS ORDERED: SODIUM CHLORIDE 250 ML IV PRN (07:11)
[2021-05-25] MEDS ORDERED: EPOETIN ALFA-EPBX 10,000 UNIT/ML VIAL IVPUSH ONE (09:00)
[2021-05-25 10:21] LABS: BASO % 0.3 % (0-2.0); EOS % 0.8 % (0-4.5); HEMATOCRIT 27.4 % (32.4-45.2); HEMOGLOBIN 8.3 GM/dL (10.7-15.3); LYMPH % 14.7 % (8-40); MCH 30.1 pg (25.7-33.7); MCHC 30.1 g/dl (32.0-36.0); MEAN CELL VOLUME 99.8 fl (80-96); MEAN PLT VOLUME 9.2 fl (7.5-11.1); MONO % 7.5 % (3.8-10.2); NEUT % 76.7 % (42.8-82.8); PLATELET COUNT 270 10^3/uL (134-434); RBC 2.74 M/mm3 (3.60-5.2); RDW 19.5 % (11.6-15.6); WHITE BLOOD COUNT 17.1 K/mm3 (4.0-10.0)
[2021-05-25 10:46] LABS: CALCIUM 8.4 mg/dL (8.5-10.1)
[2021-05-25 10:47] LABS: ALBUMIN 1.8 g/dl (3.4-5.0); BLOOD UREA NITROGEN 96.2 mg/dL (7-18)
[2021-05-25 10:48] LABS: CREATININE 3.1 mg/dL (0.55-1.3)
[2021-05-25 10:50] LABS: BILIRUBIN,TOTAL 0.4 mg/dL (0.2-1); TOT PROT 5.1 g/dl (6.4-8.2)
[2021-05-25] MEDS: levETIRAcetam 500 MG/5 ML ORAL SOLUTION (UNIT-DOSE CUPS) GT SCH ×2 (11:05→21:15)
[2021-05-25] MEDS: ZINC SULFATE 220 MG CAPSULE (FP) GT SCH (11:05)
[2021-05-25] MEDS: MIDODRINE HCL 5 MG TABLET GT SCH (11:05)
[2021-05-25] MEDS: VITAMIN B COMP W-C 1 EA TABLET (NEPHRO-VITE) PO SCH (11:05)
[2021-05-25] MEDS: CLOPIDOGREL BISULFATE 75 MG TABLET (FP) GT SCH (11:05)
[2021-05-25] MEDS: FAMOTIDINE 40 MG/5 ML ORAL SUSPENSION NGT SCH (11:10)
[2021-05-25] MEDS: COLLAGENASE CLOSTRIDIUM HIST. 30 GRAMS TUBE TP SCH (11:11)
[2021-05-25] MEDS: SODIUM HYPOCHLORITE 0.5% 473 ML- BULK BOTTLE TP SCH (11:11)
[2021-05-25 12:08] LABS: SARS-CoV-2 NAA Not Detected (Not Detected)
[2021-05-25] MEDS: ATORVASTATIN CA 80 MG TABLET (FP) GT SCH (21:15)
[2021-05-26] MEDS: CARBIDOPA/LEVODOPA 25/100 TABLET (FP) GT SCH ×2 (06:00→13:13)
[2021-05-26] MEDS: ACETAMINOPHEN 650 MG/20.3 ML ORAL SOLUTION (CUPS) GT PRN (06:00)
[2021-05-26] MEDS: INSULIN (LEVEMIR) 100 UNITS/ML UNITS SQ SCH (06:00)
[2021-05-26] MEDS: AMINO ACIDS/PROTEIN HYDROLYS 30 ML LIQUID.PKT GT SCH ×2 (06:00→13:13)
[2021-05-26] MEDS: TOPIRAMATE 100 MG TABLET GT SCH (06:00)
[2021-05-26] MEDS: INSULIN SLIDING SCALE (NOVOLOG) 1 VIAL SQ SCH ×3 (06:01→16:34)
[2021-05-26] MEDS: levETIRAcetam 500 MG/5 ML ORAL SOLUTION (UNIT-DOSE CUPS) GT SCH (09:08)
[2021-05-26] MEDS: FAMOTIDINE 40 MG/5 ML ORAL SUSPENSION NGT SCH (09:08)
[2021-05-26] MEDS: COLLAGENASE CLOSTRIDIUM HIST. 30 GRAMS TUBE TP SCH (09:09)
[2021-05-26] MEDS: SODIUM HYPOCHLORITE 0.5% 473 ML- BULK BOTTLE TP SCH (09:09)
[2021-05-26] MEDS: CLOPIDOGREL BISULFATE 75 MG TABLET (FP) GT SCH (09:09)
[2021-05-26] MEDS: VITAMIN B COMP W-C 1 EA TABLET (NEPHRO-VITE) PO SCH (09:09)
[2021-05-26] MEDS: MIDODRINE HCL 5 MG TABLET GT SCH (09:09)
[2021-05-26] MEDS: ZINC SULFATE 220 MG CAPSULE (FP) GT SCH (09:09)
[2021-05-26 18:46] VITALS: BP 142/76; PULSE 89; TEMP 99.6
== END 2021-05-26 19:43 | DRG 3 ==
LOC: JER 15:48 → JERBED 18:11 → J4W 02-22 23:09 → J7W 03-03 18:18 → JICU 03-22 11:08 → J4W 03-25 23:17 → JICU 04-04 11:30 → J5S 04-12 02:57 → JICU 04-19 20:13 → J5S 04-29 02:34
PROVIDERS: ATTEND Family Medicine
PROC: 0KBN0ZZ Excision of Right Hip Muscle, Open Approach (ICD-10-PCS; 2021-02-23)
PROC: 0KBP0ZZ Excision of Left Hip Muscle, Open Approach (ICD-10-PCS; principal; 2021-02-23 14:00)
PROC: 0D1N4Z4 Bypass Sigmoid Colon to Cutaneous, Percutaneous Endoscopic Approach (ICD-10-PCS; 2021-03-12)
PROC: 0KBP0ZZ Excision of Left Hip Muscle, Open Approach (ICD-10-PCS; 2021-03-12)
PROC: 0KBN0ZZ Excision of Right Hip Muscle, Open Approach (ICD-10-PCS; 2021-03-12)
PROC: 0QBS0ZX Excision of Coccyx, Open Approach, Diagnostic (ICD-10-PCS; 2021-03-12)
PROC: 0QB10ZX Excision of Sacrum, Open Approach, Diagnostic (ICD-10-PCS; 2021-03-12)
PROC: 2W15X6Z Compression of Back using Pressure Dressing (ICD-10-PCS; 2021-03-12)
PROC: 05HN33Z Insertion of Infusion Device into Left Internal Jugular Vein, Percutaneous Approach (ICD-10-PCS; 2021-03-12)
PROC: B544ZZA Ultrasonography of Left Jugular Veins, Guidance (ICD-10-PCS; 2021-03-12)
PROC: 0DH63UZ Insertion of Feeding Device into Stomach, Percutaneous Approach (ICD-10-PCS; 2021-03-16)
PROC: BD12ZZZ Fluoroscopy of Stomach (ICD-10-PCS; 2021-03-16)
PROC: 3E0G76Z Introduction of Nutritional Substance into Upper GI, Via Natural or Artificial Opening (ICD-10-PCS; 2021-03-16)
PROC: 0KBP0ZZ Excision of Left Hip Muscle, Open Approach (ICD-10-PCS; 2021-03-18)
PROC: 0KBN0ZZ Excision of Right Hip Muscle, Open Approach (ICD-10-PCS; 2021-03-18)
PROC: 0QB10ZX Excision of Sacrum, Open Approach, Diagnostic (ICD-10-PCS; 2021-03-18)
PROC: 2W15X6Z Compression of Back using Pressure Dressing (ICD-10-PCS; 2021-03-18)
PROC: 5A1955Z Respiratory Ventilation, Greater than 96 Consecutive Hours (ICD-10-PCS; 2021-03-22)
PROC: 0BH17EZ Insertion of Endotracheal Airway into Trachea, Via Natural or Artificial Opening (ICD-10-PCS; 2021-03-22)
PROC: 05H633Z Insertion of Infusion Device into Left Subclavian Vein, Percutaneous Approach (ICD-10-PCS; 2021-04-04)
PROC: 0B113F4 Bypass Trachea to Cutaneous with Tracheostomy Device, Percutaneous Approach (ICD-10-PCS; 2021-04-09)
PROC: 0BJ08ZZ Inspection of Tracheobronchial Tree, Via Natural or Artificial Opening Endoscopic (ICD-10-PCS; 2021-04-09)
DX: L89.154 Pressure ulcer of sacral region, stage 4 (principal); G93.41 Metabolic encephalopathy; I63.9 Cerebral infarction, unspecified; R53.2 Functional quadriplegia; J96.01 Acute respiratory failure with hypoxia; J69.0 Pneumonitis due to inhalation of food and vomit; R57.8 Other shock; A41.89 Other specified sepsis; N18.6 End stage renal disease; R65.21 Severe sepsis with septic shock; K92.2 Gastrointestinal hemorrhage, unspecified; I13.0 Hypertensive heart and chronic kidney disease with heart failure and stage 1 through stage 4 chronic kidney disease, or unspecified chronic kidney disease; I69.351 Hemiplegia and hemiparesis following cerebral infarction affecting right dominant side; I31.3 Pericardial effusion (noninflammatory); I24.8 Other forms of acute ischemic heart disease; I50.32 Chronic diastolic (congestive) heart failure; I96 Gangrene, not elsewhere classified; L97.428 Non-pressure chronic ulcer of left heel and midfoot with other specified severity; T17.590A Other foreign object in bronchus causing asphyxiation, initial encounter; E46 Unspecified protein-calorie malnutrition; I69.820 Aphasia following other cerebrovascular disease; E11.319 Type 2 diabetes mellitus with unspecified diabetic retinopathy without macular edema; E78.5 Hyperlipidemia, unspecified; D72.829 Elevated white blood cell count, unspecified; E11.621 Type 2 diabetes mellitus with foot ulcer; G47.30 Sleep apnea, unspecified; K59.00 Constipation, unspecified; E11.51 Type 2 diabetes mellitus with diabetic peripheral angiopathy without gangrene; G40.909 Epilepsy, unspecified, not intractable, without status epilepticus; L08.9 Local infection of the skin and subcutaneous tissue, unspecified; E87.6 Hypokalemia; D63.1 Anemia in chronic kidney disease; I25.10 Atherosclerotic heart disease of native coronary artery without angina pectoris; I95.9 Hypotension, unspecified; I65.21 Occlusion and stenosis of right carotid artery; F41.8 Other specified anxiety disorders; L89.322 Pressure ulcer of left buttock, stage 2; G20 Parkinson's disease; E11.22 Type 2 diabetes mellitus with diabetic chronic kidney disease; R41.82 Altered mental status, unspecified; L89.890 Pressure ulcer of other site, unstageable; F39 Unspecified mood [affective] disorder; R94.31 Abnormal electrocardiogram [ECG] [EKG]; E66.9 Obesity, unspecified; B96.5 Pseudomonas (aeruginosa) (mallei) (pseudomallei) as the cause of diseases classified elsewhere; B95.1 Streptococcus, group B, as the cause of diseases classified elsewhere; B95.62 Methicillin resistant Staphylococcus aureus infection as the cause of diseases classified elsewhere; Z68.35 Body mass index [BMI] 35.0-35.9, adult; R13.10 Dysphagia, unspecified; Z99.2 Dependence on renal dialysis; Z88.1 Allergy status to other antibiotic agents; Z74.01 Bed confinement status; Z88.0 Allergy status to penicillin
CPT/HCPCS: 31500; 36415; 36430; 36511; 36600; 49440; 70450-TC; 70551-TC; 71045-TC-FY; 74018-TC-FY; 80048; 80053; 82272; 82550; 82553; 82728; 82803; 82962; 83540; 83550; 83605; 83735; 84100; 84132; 84484; 85025; 85027; 85379; 85610; 85730; 86705; 86707; 86708; 86803; 86850; 86900; 86901; 86922; 87040; 87070; 87075; 87076; 87186; 87205; 87340; 87350; 87517; 87522; 87902; 88304-TC; 88305-TC; 88311-TC; 93005; 93010; 93306-TC; 93308; 94002; 94640; 94760; 95816; 97162-GP; 99285-25; C9803; G0480; J0885; J1100; J1644; J2997; P9038; P9047; P9058; Q5106; U0003; U0005